=== PATIENT | female | born 2000 | race Caucasian/White ===

== ENCOUNTER 2022-09-29 18:41 | Emergency (ER) | payer MEDICAID, SELFPAY ==
[2022-09-29 18:48] VITALS: BP 115/74; BP 116/74; PULSE 96; PULSE 99; RESP 18; TEMP 36.9; O2SAT 98; O2SAT 99; BMI 24.1
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
--- NOTE | 2022-09-29 19:11 | PC.NURSE ---
Per reta RUSH: due to allergies and concerns for adverse reaction, pt to be sent to main for Ketamine restraint iif behavior escalates
[2022-09-29 19:14] LABS: Appearance Urine Clear; Color Urine Yellow; Glucose Urine UA Negative (Negative); Leukocyte Esterase Urine Trace (Negative); Nitrite Urine Negative (Negative); PH 7.5 (5.0-9.0); UMIC TRIGGER UACC YES; Urine Blood Negative (Negative); Urine Ketones Negative (Negative); Urine Protein Negative (Neg-Trace)
[2022-09-29 19:16] LABS: UPreg QC Valid YES; Urine Pregnancy NEGATIVE (NEGATIVE)
[2022-09-29 19:19] LABS: Bacteria Urine None Seen (None Seen); Hyaline Casts Urine 0-2 /LPF (0-2); RBC Urine 0-2 /HPF (0-2); Squamous Epithelial Cell Urine 0-2 /HPF (0-2); UACC Culture Trigger YES
[2022-09-29 19:20] VITALS: RESP 24
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
[2022-09-29 19:30] LABS: Amphetamine Screen Urine Not Detected (Not Detect); Barbiturates, Urine Not Detected (Not Detect); Benzodiazepines Screen Urine Not Detected (Not Detect); Cannabinoid Screen Urine Not Detected (Not Detect); Cocaine Screen Urine Not Detected (Not Detect); Fentanyl, urine Not Detected (Not Detect); Opiate Screen Urine Not Detected (Not Detect); Phencyclidine Screen Urine Not Detected (Not Detect)
[2022-09-29 19:35] VITALS: RESP 22
--- NOTE | 2022-09-29 19:37 | MHC.CARE ---
Care Team had a telephonic encounter with [facility] staff Ronda and she reported having no information pertaining to pt.
--- NOTE | 2022-09-29 19:39 | PC.NURSE ---
Ivelisse preston supervisore talked with Stefania and it is okay to give Ketamine im with a 1:1 rn at the bedside. Jazmyn gonzales talked with the family and the pt has not been out of a crisis unit in 5 years and has not seen the outside. Tami is with the pt at this time with Carmella sitting.
--- NOTE | 2022-09-29 19:41 | MHC.CARE ---
Care Team had a telephonic encounter with [facility] crisis staff Skyler and he reported pt is not in there system.
--- NOTE | 2022-09-29 19:42 | PC.NURSE ---
20mg Geodon IM given via verbal order from hussain RUSH. 1;[address] clinical coordinator at [facility].e
[2022-09-29 19:50] VITALS: RESP 18
--- NOTE | 2022-09-29 20:04 | MHC.CARE ---
Care Team left a voice message with Lizeth for [place]. Purpose of call was to gain more information related to pt. Care Team called [employer] staff Shonna and she transferred the call to Crisis Unit staff Kaycee and she stated no information pertaining to pt. Kaycee reported residential units are closed until Saturday.
[2022-09-29 20:05] VITALS: RESP 18
[2022-09-29 20:20] VITALS: RESP 18
[2022-09-29 20:30] LABS: COVID-19 Test Negative (Negative)
--- NOTE | 2022-09-29 20:48 | MHC.CARE ---
Care Team had a telephonic encounter with [place] [employer] dispatcher Sobia Mooney and she reported pt resides with grandmother and recently moved from [place]. She provided pt's father Km contact information [phone].
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
[2022-09-29] MEDS: diphenhydrAMINE HCL 25 MG CAPSULE 50 MG PO ×2 (21:03→22:18)
[2022-09-29] MEDS: clonazePAM 1 MG TABLET PO ×2 (21:03→22:17)
[2022-09-29] MEDS: Ziprasidone Mesylate 20 MG VIAL IM (21:04)
[2022-09-29] MEDS: OLANZapine 10 MG TABLET PO (21:04)
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
[2022-09-29] MEDS: Melatonin 3 MG TABLET 6 MG PO (22:10)
[2022-09-29] MEDS: OLANZapine 10 MG TABLET 20 MG PO (22:17)
--- NOTE | 2022-09-29 22:18 | PC.NURSE ---
t/w attempted to draw blood on patient post mechanical and chemical restraint. pt is a very hard stick and had low tolerance for blood draw. t/w found a senior tech to draw labs, but patient quickly became agitated and rn and techs determined it was not safe to draw labs. will draw labs once patient's mood stabilizes more and it is safe to do so. rn aware
[2022-09-29] MEDS: Paliperidone ER 6 MG TAB.ER.24 PO (22:22)
[2022-09-30] VITALS (7 sets, daily range): RESP 16–18
--- NOTE | 2022-09-30 01:14 | PC.NURSE ---
Patient is status post chemical and mechanical restraints, currently in bed appears sleeping, med rec completed per medical record and confirmed by patient's father, HS medication administered/patient compliant, observed on 1:1 for behavioral unpredictability, patient was assessed by care team, disposition pending, patient will be revaluated in the morning by care team, VSS, blood draw attempted/failed, we will try again when patient is awake, will continue to monitor.
[2022-09-30] MEDS: clonazePAM 1 MG TABLET PO ×3 (08:59→20:16)
[2022-09-30] MEDS: OLANZapine 10 MG TABLET 20 MG PO ×3 (08:59→18:46)
[2022-09-30] MEDS: diphenhydrAMINE HCL 25 MG CAPSULE 50 MG PO ×2 (09:00→20:16)
--- NOTE | 2022-09-30 09:21 | PC.NURSE ---
Addendum entered by Lacie Dyson 09/30/22 09:39: Care team at bedside assessing. Original Note: pt up and walking in [place] area. took am meds w/o issue. seeking more breakfast at this time.
--- NOTE | 2022-09-30 11:20 | PC.NURSE ---
Pt reporting anxiety increasing. Md notified. Order for PO meds: 20mg Zyprexa, 2mg Ativan to be ordered.
[2022-09-30] MEDS: clonazePAM 1 MG TABLET 4 MG PO ×2 (11:31→17:50)
[2022-09-30 17:35] LABS: Basophils Percent Auto 0.3 % (0-2); Eosinophils Absolute Auto 0.3 X10*3/uL (0.0-0.4); Eosinophils Percent Auto 4.3 % (0-4); Hematocrit 37.2 % (37.0-47.0); Imm Gran Abs Auto 0.01 X10*3/uL (0.00-0.03); Imm Gran Pct Auto 0.1 % (0.0-0.4); Lymphocytes Absolute Auto 3.9 X10*3/uL (1.2-4.9); Lymphocytes Percent Auto 56.8 % (20-40); MANUAL DIFF FLAG SCAN; Mean Corpuscular HGB Conc 32.3 g/dl (31.0-35.0); Mean Corpuscular Hemoglobin 31.5 pg (27.0-33.0); Mean Corpuscular Volume 97.6 fL (80.0-98.0); Monocytes Absolute Auto 0.8 X10*3/uL (0.1-1.2); Monocytes Percent Auto 11.4 % (2-11); Neutrophils Absolute Auto 1.9 x10*3/uL (2.0-8.3); Neutrophils Percent Auto 27.1 % (45-73); PLT CLUMP 1; Red Blood Count 3.81 X10*6/uL (4.20-5.50); Red Cell Distribution Width 14.7 % (11.0-16.0); SCAN SMEAR FLAG 1
[2022-09-30 17:55] LABS: Alanine Aminotransferase 26 U/L (0-31); Albumin Level 3.6 g/dL (3.5-5.0); Alkaline Phosphatase 57 U/L (39-117); Anion Gap 13 (12-20); Aspartate Amino Transferase 41 U/L (5-31); Bilirubin Total 0.3 mg/dL (0.0-1.0); Blood Urea Nitrogen 27 mg/dL (9-16); Calcium 9.2 mg/dL (8.4-10.2); Carbon Dioxide 25 mmol/L (22-29); Chloride 109 mmol/L (96-108); Creatinine Clr Calc Pharmacy 152.2; Estimated Glomerular Filt Rate > 60; Glucose Random 92 mg/dL (60-115); Magnesium 1.7 mg/dL (1.6-2.6); Potassium 3.9 mmol/L (3.3-5.1); Salicylate < 5.0 mg/dL (15-30); Sodium 143 mmol/L (135-145); Total Protein 6.7 g/dL (6.5-8.0)
[2022-09-30 18:00] LABS: Acetaminophen LAB < 1 mcg/mL (<30); Platelet Count 100 X10*3/uL (160-400); SLIDE REVIEW VERIFIED; White Blood Count 6.9 X10*3/uL (4.8-10.8)
[2022-09-30 18:05] LABS: Valproate 104.9 mcg/mL (50.0-100.0)
[2022-09-30 18:10] LABS: Influenza A PCR NEGATIVE (Negative); Influenza B PCR NEGATIVE (Negative); Resp Syncy Virus RNA Qual PCR NEGATIVE (Negative); SARS COV2 PCR INHOUSE NEGATIVE (Negative)
--- NOTE | 2022-09-30 18:24 | PC.NURSE ---
Pt threw sunbutter and jelly sandwich and began screaming. Pt brought back to room. given comfort and warm blanket. Resting at this time.
--- NOTE | 2022-09-30 18:48 | PC.NURSE ---
Per md Simon give night dose of zyprexa now for escalating behaviors of screaming. Sitter remains at bedside 1;1. Pt intermittentily screaming.
[2022-09-30] MEDS: Ziprasidone Mesylate 20 MG VIAL IM (19:20)
[2022-09-30] MEDS: Melatonin 3 MG TABLET 6 MG PO (20:16)
[2022-09-30] MEDS: Paliperidone ER 6 MG TAB.ER.24 PO (20:16)
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
[2022-10-01] MEDS: diphenhydrAMINE HCL 25 MG CAPSULE 50 MG PO ×2 (07:44→19:18)
[2022-10-01] MEDS: clonazePAM 1 MG TABLET PO ×3 (07:45→19:18)
--- NOTE | 2022-10-01 08:28 | PC.NURSE ---
patient reports being anxious. starting to yell out and hit self. ED Provider made aware, Ativan PRN ordered.
[2022-10-01] MEDS: OLANZapine 10 MG TABLET 20 MG PO ×2 (08:35→19:18)
[2022-10-01] MEDS: OLANZapine 10 MG VIAL 5 MG IM (08:56)
[2022-10-01] MEDS: Midazolam HCl/PF 2 MG/2 ML VIAL 4 MG IM (08:57)
--- NOTE | 2022-10-01 09:08 | PC.NURSE ---
patient refused PO and IM ativan. given IM haldol and versed for anxiety/self harm behaviors
--- NOTE | 2022-10-01 11:11 | PC.NURSE ---
patient sleeping, chest rise and fall equal and unlabored. 1:[address] for safety[address]
[2022-10-01] MEDS: Acetaminophen 325 MG TABLET 650 MG PO (13:38)
[2022-10-01 14:50] LABS: COVID-19 Test Negative (Negative); IDNOW Serial# BCCEAD1C
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
[2022-10-01] MEDS: Melatonin 3 MG TABLET 6 MG PO (19:18)
[2022-10-01 19:22] VITALS: BP 113/76; PULSE 96; RESP 20; TEMP 36.6; O2SAT 96
[2022-10-01] MEDS: Paliperidone ER 6 MG TAB.ER.24 PO ×2 (19:27→19:34)
[2022-10-01] MEDS: Ziprasidone 20 MG CAPSULE PO (19:34)
--- NOTE | 2022-10-02 06:37 | PC.NURSE ---
Patient was under impression that she is going upstairs, when made aware she is not going inpatient tonight patient got upset and agitated, exhibiting signs and symptoms of behavioral escalation, provider notified/ordered Geodon 20 mg PO administered with nighttime medication, sat with patient to deescalate, patient eventually calmed down and fall sleep. Patient slept through the night, no distress observed/reported, disposition section 12 inpatient bed search per care team, patient is observed on 1:1 for safety, Ammonia lab order was ordered at 1144 am on 10/01/2022, lab ordered was not completed and we couldn't do due to patient's escalating behavior, we will attempt once patient is awake, VSS, will continue to monitor
--- NOTE | 2022-10-02 07:25 | PC.NURSE ---
report taken form Waylon RN, patient sleeping at this time. breakfast tray placed in room. 1:1 outside patients door and able to view at all times.
[2022-10-02] MEDS: clonazePAM 1 MG TABLET PO ×3 (08:11→19:58)
[2022-10-02] MEDS: diphenhydrAMINE HCL 25 MG CAPSULE 50 MG PO ×2 (08:11→19:58)
[2022-10-02] MEDS: OLANZapine 10 MG TABLET 20 MG PO ×2 (08:11→19:58)
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
[2022-10-02] MEDS: OLANZapine 10 MG TABLET PO (15:38)
--- NOTE | 2022-10-02 15:51 | PC.NURSE ---
Attempt made to engage pt in individual OT tx however pt found to sleeping deeply. Pt provided with seasonal coloring pages, word finds, and sticker puzzle to engage complete independently.
[2022-10-02 17:49] LABS: Basophils Percent Auto 0.3 % (0-2); Eosinophils Absolute Auto 0.3 X10*3/uL (0.0-0.4); Eosinophils Percent Auto 4.9 % (0-4); Imm Gran Abs Auto 0.01 X10*3/uL (0.00-0.03); Imm Gran Pct Auto 0.2 % (0.0-0.4); PLT CLUMP 1; Red Cell Distribution Width 14.3 % (11.0-16.0); SCAN SMEAR FLAG 1
[2022-10-02 17:51] LABS: Hematocrit 37.4 % (37.0-47.0); Hemoglobin 12.3 g/dl (12.0-16.0); Lymphocytes Absolute Auto 3.7 X10*3/uL (1.2-4.9); Lymphocytes Percent Auto 57.6 % (20-40); Mean Corpuscular HGB Conc 32.9 g/dl (31.0-35.0); Mean Corpuscular Volume 97.4 fL (80.0-98.0); Monocytes Absolute Auto 0.9 X10*3/uL (0.1-1.2); Monocytes Percent Auto 14.5 % (2-11); Neutrophils Absolute Auto 1.4 x10*3/uL (2.0-8.3); Neutrophils Percent Auto 22.5 % (45-73); Red Blood Count 3.84 X10*6/uL (4.20-5.50)
[2022-10-02 17:55] LABS: MANUAL DIFF FLAG NO; Mean Platelet Volume 10.7 fL (9.4-12.3); Platelet Count 100 X10*3/uL (160-400); White Blood Count 6.3 X10*3/uL (4.8-10.8)
[2022-10-02 18:09] LABS: Ammonia 71 umol/L (13-55)
[2022-10-02 18:18] LABS: Alanine Aminotransferase 17 U/L (0-31); Albumin Level 3.4 g/dL (3.5-5.0); Alkaline Phosphatase 61 U/L (39-117); Anion Gap 11 (12-20); Aspartate Amino Transferase 29 U/L (5-31); Bilirubin Total 0.3 mg/dL (0.0-1.0); Blood Urea Nitrogen 37 mg/dL (9-16); Calcium 9.1 mg/dL (8.4-10.2); Carbon Dioxide 23 mmol/L (22-29); Chloride 111 mmol/L (96-108); Estimated Glomerular Filt Rate > 60; Glucose Random 113 mg/dL (60-115); Potassium 4.3 mmol/L (3.3-5.1); Sodium 141 mmol/L (135-145); Total Protein 6.5 g/dL (6.5-8.0)
[2022-10-02] MEDS: Paliperidone ER 6 MG TAB.ER.24 PO (19:58)
[2022-10-02] MEDS: Melatonin 3 MG TABLET 6 MG PO (19:58)
--- NOTE | 2022-10-03 | ECG_ITS ---
Test Reason : QTC Blood Pressure : / mmHG Vent. Rate : 097 BPM Atrial Rate : 097 BPM P-R Int : 138 ms QRS Dur : 080 ms QT Int : 356 ms P-R-T Axes : 043 063 060 degrees QTc Int : 452 ms Normal sinus rhythm Normal ECG No previous ECGs available Referred By: Lou Pate Electronically Signed By:MADISON ROBERTS
[2022-10-03 06:38] VITALS: PULSE 17
--- NOTE | 2022-10-03 06:46 | PC.NURSE ---
Patient slept through the night, no distress observed/reported, medication compliant, behavior non concerning but unpredictable, disposition per care team section 12 inpatient bed search, patient is pre-accepted to for today, patient is excited, VSS, will continue to monitor.
[2022-10-03 08:08] VITALS: RESP 20
[2022-10-03 09:13] VITALS: BP 109/69; PULSE 99; RESP 16; TEMP 36.3; O2SAT 97
--- NOTE | 2022-10-03 09:15 | PC.NURSE ---
pt is a/o x 4 no sob/matt noted speaks in full sentences. pt ate breakfast. amb (i) gait steady. pt is calm/co-op. pt denies any si/hi.
[2022-10-03] MEDS: diphenhydrAMINE HCL 25 MG CAPSULE 50 MG PO (09:18)
[2022-10-03] MEDS: clonazePAM 1 MG TABLET PO ×2 (09:18→20:14)
[2022-10-03] MEDS: OLANZapine 10 MG TABLET 20 MG PO ×2 (09:18→20:14)
--- NOTE | 2022-10-03 10:02 | PC.NURSE ---
pt showered, 1:1 sitter continues.
--- NOTE | 2022-10-03 10:35 | PC.NURSE ---
pt is reporting anxiety, refused ativan. pt's grand-mother mt white ) called was updated on pt status.
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
[2022-10-03] MEDS: Lactulose 20 GM/30 ML SOLUTION PO ×3 (12:39→20:13)
--- NOTE | 2022-10-03 14:15 | PC.NURSE ---
Patient c/o swelling in hands and feet and sob bp was 120/80. pulse 111, spo2 was 96 room air, lung sounds were clear skin on wrists and ankles at this time do not appear to be swollen, MD was notified.
[2022-10-03] MEDS: Paliperidone ER 6 MG TAB.ER.24 PO (20:14)
[2022-10-03] MEDS: Melatonin 3 MG TABLET 6 MG PO (20:15)
[2022-10-03 20:34] VITALS: BP 109/75; PULSE 100; RESP 16; TEMP 36.6; O2SAT 97
--- NOTE | 2022-10-04 06:10 | PC.NURSE ---
Patient slept through the night, no distress observed/reported, medication compliant, behavior non concerning but unpredictable, disposition per care team section 12 inpatient bed search, patient was upset knowing that patient who came after her are being admitted earlier to the inpatient, Patient 1:1 order is discontinued, VSS, will continue to monitor.
[2022-10-04 08:17] VITALS: RESP 16
[2022-10-04] MEDS: OLANZapine 10 MG TABLET 20 MG PO (08:32)
[2022-10-04] MEDS: Lactulose 20 GM/30 ML SOLUTION PO ×2 (08:33→14:59)
[2022-10-04] MEDS: clonazePAM 1 MG TABLET PO ×2 (08:33→15:02)
[2022-10-04 10:10] LABS: Ammonia 44 umol/L (13-55)
[2022-10-04 10:35] LABS: Valproate 114.9 mcg/mL (50.0-100.0)
--- NOTE | 2022-10-04 12:56 | MHC.CARE ---
CARE Team completed CC referral.
[2022-10-04] MEDS: polyethylene glycoL 3350 17 GM POWD.PACK PO (15:01)
--- NOTE | 2022-10-04 15:37 | PC.NURSE ---
Pt seen this date for individual OT tx. Pt presents with flat, blunted, childlike affect. Pt is receptive to grounding techniques pushing heavy chair, wall push ups, and to trial rocking in weighted rocking chair prn for mood regulation/stability. Pt is also receptive to sensory item as well as sensory activity. Pt continues visit with her grandmother upon conclusion of session.
--- NOTE | 2022-10-04 15:40 | PC.NURSE ---
Addendum entered by Lacie Dyson 10/04/22 18:00: Confirmation from Lou SIEBEL ADMINISTRATOR- plan to d/c to dad shawn. Addendum entered by Lacie Dyson 10/04/22 17:55: Awaiting confirmation of plan of care from care team. Original Note: Lou SIEBEL ADMINISTRATOR to bedside to discuss plan of care with both patient and grandma.
[2022-10-04 15:46] VITALS: RESP 18
== END 2022-10-04 18:48 | disposition home or self-care (01) ==
PROVIDERS: Physician Assistant; Social Worker; Emergency Provider Emergency Medicine Emergency Medical Services
DX: R45.851 Suicidal ideations (principal); R45.850 Homicidal ideations; F25.0 Schizoaffective disorder, bipolar type; F60.3 Borderline personality disorder; Z20.822 Contact with and (suspected) exposure to COVID-19; F41.9 Anxiety disorder, unspecified; R45.1 Restlessness and agitation; Z78.1 Physical restraint status; Z79.899 Other long term (current) drug therapy
CPT/HCPCS: 0241U; 36415; 80053; 80143; 80164; 80179; 80307; 81001; 81025; 82140; 83735; 85025; 87086; 87635; 93005; 96372; 99285; J2250; J3486

== ENCOUNTER 2022-10-04 21:42 | Inpatient (IN) | payer MEDICAID, OTHER, SELFPAY ==
[2022-10-04 21:49] VITALS: BP 132/93; PULSE 110; RESP 16; TEMP 36.6; O2SAT 97; BMI 21.2
[2022-10-04 22:05] VITALS: RESP 16
[2022-10-04] MEDS: Ziprasidone Mesylate 20 MG VIAL IM (22:05)
--- NOTE | 2022-10-04 22:06 | ED_ITS ---
HPI - Psych General Chief Complaint: Psychiatric Symptoms Stated Complaint: crisis Time Seen by Provider: 10/04/22 21:53 Source: patient and EMS Mode of arrival: EMS History of Present Illness HPI Narrative: This is a 22 years old female with history of schizoaffective disorder, bipolar disorder and mild MR presented by ambulance agitated with to self inflicted abrasion the in the left forearm , the patient has hx of explosive disorder Patient was discharged yesterday from [facility] complaint: other (agitated) Onset (ago): hour(s) (1) Duration: constant History of same: Yes Relieving factors: none Exacerbating factors: none Associated symptoms: denies other symptoms Related Data Home Medications Medication Instructions Recorded Confirmed clonazepam 1 mg tablet (Klonopin) 1 mg PO TID 09/29/22 10/04/22 diphenhydramine HCl 25 mg capsule 50 mg PO BID 09/29/22 10/04/22 (Benadryl) melatonin 5 mg tablet 5 mg PO BEDTIME 09/29/22 10/04/22 olanzapine 20 mg tablet 20 mg PO BID 09/29/22 10/04/22 paliperidone 6 mg tablet,extended 6 mg PO BEDTIME 09/29/22 10/04/22 release 24 hr (Invega) valproic acid (as sodium salt) 250 2,000 mg PO BID 09/29/22 10/04/22 mg/5 mL oral solution Allergies Allergy/AdvReac Type Severity Reaction Status Date / Time chlorpromazine Allergy Anaphylaxis Verified 09/29/22 18:48 [From Thorazine] nut - unspecified Allergy Anxiety Verified 09/29/22 21:28 tomato Allergy Unknown Verified 09/30/22 14:13 haloperidol [From Haldol] AdvReac Agitated Verified 09/29/22 19:27 lithium AdvReac Hives Verified 09/29/22 21:28 Review of Systems Constitutional: Constitutional: Reports no additional constitutional complaints Eyes: Eyes: Reports no additional eye complaints ENT: Reports system reviewed and no additional complaints, except as documented Respiratory: Respiratory: Reports no additional respiratory complaints Integumentary/Breasts: Skin/Breast: Reports system reviewed and no additional complaints, except as docu PMFSH Past Medical History PMFSH Narrative: bipolar,intermittent explosive disorder Medical History Homicidal behavior Suicidal behavior Social History Social History Alcohol intake: never Advance Directives: No Physical Exam Vital Signs: Vital Signs: Last Vital Signs Temp 97.8 F 10/04/22 21:49 Pulse 110 H 10/04/22 21:49 Resp 16 10/04/22 23:05 BP 132/93 H 10/04/22 21:49 Pulse Ox 97 10/04/22 21:49 O2 Del Method 10/04/22 21:49 BMI result Body Mass Index 21.2 Const: General: alert and anxious Nutritional Appearance: well nourished Orientation/consciousness: patient oriented x3 HEENT: Head: Yes normal to inspection General nose exam: Normal external nose present Face and sinus: Yes normal facial exam Mouth: Normal oral and palatal mucosa present Teeth and gingiva: dentition normal Throat: Yes posterior oropharynx normal Neck: Neck: Yes normal visual inspection Resp: Effort & Inspection: normal respiratory effort Auscultation: clear to auscultation bilaterally Cardio: Jugular venous distension: no JVD Rate: regular rate Rhythm: regular rhythm GI: Inspection: Yes normal to inspection Palpation (GI): Soft to palpation, not firm, nontender and no guarding Auscultation: normal bowel sounds Neuro: General: patient oriented x3 Extrem: Other: Left forearm showed multiple abrasions small wound which are not suturable Course Reevaluation(s) Reevaluation #1: pt was sedated at arrival.calm and coperative now,signed out to Dr Nagy Medications Administered Generic Name Dose Route Start Last Admin Trade Name Freq PRN Reason Stop Dose Admin Diphenhydramine HCl 50 mg 10/04/22 23:00 10/04/22 23:02 Diphenhydramine Hcl 25 Mg Capsule PO 50 mg BID OSCAR Administration Olanzapine 20 mg 10/04/22 23:00 10/04/22 23:02 Olanzapine 10 Mg Tablet PO 20 mg BID OSCAR Administration Paliperidone 6 mg 10/04/22 23:00 10/04/22 22:59 Paliperidone Er 6 Mg Tab.Er.24 PO 6 mg BEDTIME OSCAR Administration Discontinued Medications Generic Name Dose Route Start Last Admin Trade Name Freq PRN Reason Stop Dose Admin Ziprasidone 20 mg 10/04/22 21:54 10/04/22 22:05 Ziprasidone Mesylate 20 Mg Vial IM 10/04/22 21:55 20 mg ONCE ONE Administration Medical Decision Making Lab Data Labs: Lab Results 10/04/22 Range/Units 22:19 COVID-19 ([facility]) Negative (Negative) COVID-19 Clin Com See Note Discharge Plan Discharge Clinical Impression: Schizoaffective disorder Patient Disposition: Still a Patient Prescriptions: No Action clonazepam [Klonopin] 1 mg Tablet 1 mg PO TID diphenhydramine HCl [Benadryl] 25 mg Capsule 50 mg PO BID melatonin 5 mg Tablet 5 mg PO BEDTIME olanzapine 20 mg Tablet 20 mg PO BID paliperidone [Invega] 6 mg Tablet Extended Release 24 Hr 6 mg PO BEDTIME valproic acid (as sodium salt) 250 mg/5 mL Solution 2,000 mg PO BID Interventions: [place]-Suicide Risk Severity Scale Last Done: 10/04/22 22:58
[2022-10-04 22:20] VITALS: RESP 16
[2022-10-04 22:35] VITALS: RESP 16
[2022-10-04 22:44] LABS: COVID-19 Test Negative (Negative)
[2022-10-04 22:50] VITALS: RESP 16
[2022-10-04] MEDS: Paliperidone ER 6 MG TAB.ER.24 PO (22:59)
[2022-10-04] MEDS: OLANZapine 10 MG TABLET 20 MG PO (23:02)
[2022-10-04] MEDS: diphenhydrAMINE HCL 25 MG CAPSULE 50 MG PO (23:02)
[2022-10-04 23:05] VITALS: RESP 16
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
--- NOTE | 2022-10-05 08:34 | MHC.CARE ---
CARE Team met with pt to conduct an evaluation. Upon approach, pt was lying down in her bed sleeping. T/w made multiple attempts to wake the pt but to minimal avail. Will follow up with her at a later time.
[2022-10-05] MEDS: diphenhydrAMINE HCL 25 MG CAPSULE 50 MG PO ×2 (08:39→19:35)
[2022-10-05] MEDS: OLANZapine 10 MG TABLET 20 MG PO ×2 (08:39→19:35)
[2022-10-05] MEDS: clonazePAM 1 MG TABLET PO ×3 (08:39→19:35)
[2022-10-05 08:48] VITALS: BP 100/56; PULSE 97; RESP 16; TEMP 37.1; O2SAT 98
--- NOTE | 2022-10-05 11:02 | MHC.CARE ---
[facility] application submitted.
--- NOTE | 2022-10-05 13:23 | MHC.CARE ---
CARE Team submitted records request of [email or web address]
[2022-10-05 14:00] VITALS: RESP 16
[2022-10-05] MEDS: Melatonin 3 MG TABLET 6 MG PO (19:34)
[2022-10-05] MEDS: Paliperidone ER 6 MG TAB.ER.24 PO (19:35)
[2022-10-05] MEDS: Ziprasidone 20 MG CAPSULE PO (20:05)
[2022-10-05] MEDS: polyethylene glycoL 3350 17 GM POWD.PACK PO (20:06)
--- NOTE | 2022-10-06 05:42 | PC.NURSE ---
Patient got upset when she was made aware that she is not going upstairs tonight, she had emotional meltdown, Geodon 20 mg PO administered at 2004 with positive, compliant with her HS medication, staff were able to calmed her down, patient slept through the night, no distress observed/reported, disposition per care team is section 12 inpatient bed search, VSS, will continue to monitor.
--- NOTE | 2022-10-06 06:01 | PC.NURSE ---
Addendum entered by Waylon Jon RN 10/06/22 06:06: Valporic level at 8 am on 10/06/22, notify provider if levels is high Original Note: Valproic lab draw at 9.30 am on 10/06/22. Notify provider if levels is high
[2022-10-06 06:29] VITALS: RESP 17
[2022-10-06] MEDS: diphenhydrAMINE HCL 25 MG CAPSULE 50 MG PO ×2 (08:55→21:14)
[2022-10-06] MEDS: OLANZapine 10 MG TABLET 20 MG PO ×2 (08:55→21:14)
[2022-10-06] MEDS: clonazePAM 1 MG TABLET PO ×2 (08:55→21:14)
[2022-10-06 10:31] LABS: Valproate 57.3 mcg/mL (50.0-100.0)
--- NOTE | 2022-10-06 13:29 | PC.NURSE ---
nurse to nurse given
[2022-10-06 18:00] VITALS: BP 115/75; PULSE 100; TEMP 36.8; O2SAT 96
--- NOTE | 2022-10-06 19:36 | PC.ADMIT ---
Addendum entered by Nataliia Hale RN 10/06/22 19:38: bruising on her arms. pt needs help with some self care activites, but can possiblity do them herself. pt claims that she is only allergic to raw tomatoes and not cooked tomatoes. pt signed all forms and is socializing with peers. start treatment plan and promote safety. Original Note: pt is a 22 year old female who presented to [facility] ED with increased agitation and self harming behaviors. pt has an extensive history of inpatient hospitalizations. pt has a PMH of bipolar, borderline personality disorder and unspecified anxiety disorder. during admission, pt is pleasant but answers questions slowly and often repetitive. pt has bur
[2022-10-06] MEDS: Melatonin 3 MG TABLET 6 MG PO (21:14)
[2022-10-06] MEDS: Paliperidone ER 6 MG TAB.ER.24 PO (21:14)
[2022-10-06] MEDS: traZODone HCL 50 MG TABLET PO (21:51)
--- NOTE | 2022-10-06 21:58 | PC.NURSE ---
pt has a [facility] request. located in chart.
[2022-10-07 08:30] VITALS: BP 109/63; PULSE 111; TEMP 37.1
[2022-10-07] MEDS: clonazePAM 1 MG TABLET PO ×2 (09:10→20:43)
[2022-10-07] MEDS: diphenhydrAMINE HCL 25 MG CAPSULE 50 MG PO ×2 (09:10→20:43)
[2022-10-07] MEDS: OLANZapine 10 MG TABLET 20 MG PO ×2 (09:10→20:44)
[2022-10-07] MEDS: Ziprasidone 20 MG CAPSULE PO (12:10)
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
[2022-10-07 18:00] VITALS: RESP 16
[2022-10-07] MEDS: Paliperidone ER 6 MG TAB.ER.24 PO (20:43)
[2022-10-07] MEDS: traZODone HCL 50 MG TABLET PO ×2 (20:44→22:31)
[2022-10-07] MEDS: Melatonin 3 MG TABLET 6 MG PO (20:44)
[2022-10-08 08:30] VITALS: BP 108/66; PULSE 110; TEMP 36.4
[2022-10-08] MEDS: clonazePAM 1 MG TABLET PO ×3 (08:39→21:45)
[2022-10-08] MEDS: OLANZapine 10 MG TABLET 20 MG PO ×2 (08:39→21:46)
[2022-10-08] MEDS: diphenhydrAMINE HCL 25 MG CAPSULE 50 MG PO ×2 (08:39→21:47)
--- NOTE | 2022-10-08 14:40 | MHC.CARE ---
CARE Team received call from [facility] who requested [facility] information- CARE Team faxed [facility] records
[2022-10-08 18:00] VITALS: BP 116/66; PULSE 105; TEMP 36.4
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
[2022-10-08] MEDS: Melatonin 3 MG TABLET 6 MG PO (21:46)
[2022-10-08] MEDS: Paliperidone ER 6 MG TAB.ER.24 PO (21:47)
[2022-10-08] MEDS: traZODone HCL 50 MG TABLET PO (22:08)
[2022-10-09 08:53] VITALS: BP 91/45; PULSE 74; RESP 18; TEMP 36.6; O2SAT 74
[2022-10-09] MEDS: OLANZapine 10 MG TABLET 20 MG PO ×2 (09:15→20:23)
[2022-10-09] MEDS: clonazePAM 1 MG TABLET PO ×3 (09:15→20:23)
[2022-10-09] MEDS: diphenhydrAMINE HCL 25 MG CAPSULE 50 MG PO ×2 (09:15→20:22)
[2022-10-09 09:21] VITALS: BP 119/57; PULSE 93
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
[2022-10-09 18:00] VITALS: BP 126/78; PULSE 86; RESP 16; TEMP 36.6; O2SAT 98
--- NOTE | 2022-10-09 19:45 | PC.NURSE ---
Pt is C/O left ankle pain of 8/10. Pt reports she fracture her ankle after a fall. Ankle swollen and tender to touch. Provider notified no new orders. Provider wants issue dealt with tomorrow by attending providers.
[2022-10-09] MEDS: Acetaminophen 325 MG TABLET 650 MG PO (20:20)
[2022-10-09] MEDS: Paliperidone ER 6 MG TAB.ER.24 PO (20:22)
[2022-10-09] MEDS: Melatonin 3 MG TABLET 6 MG PO (20:22)
[2022-10-09] MEDS: OLANZapine 10 MG TABLET PO (20:23)
[2022-10-09] MEDS: traZODone HCL 50 MG TABLET PO (22:01)
[2022-10-10] MEDS: diphenhydrAMINE HCL 25 MG CAPSULE 50 MG PO ×2 (09:04→19:23)
[2022-10-10] MEDS: clonazePAM 1 MG TABLET PO ×3 (09:04→19:24)
[2022-10-10 09:09] VITALS: BP 106/57; PULSE 91; RESP 18; TEMP 36.3; O2SAT 98
--- NOTE | 2022-10-10 10:24 | HO.PSYCHPN ---
Subjective Subjective Date of Service: 10/10/22 Reason For Visit: disorganized/HI Interim History: Remains calm, in good behavioral and impulse control. Getting along with staff. Tired today and sleeping in until afternoon. Patient not sure why she denies feeling sick. She is very much hoping she will get to go home for [place]. Discussed her history and patient has no psychotic symptoms that radio script writer can identify. She denies any history of AVH or paranoid thinking. She says she only has intrusive thoughts. She said different diagnoses have been tossed around including OCD and ASD. Marketing Support Assistant reviewed extensive records from [facility] and could not find mention of psychotic symptoms. Patient did have long history of behavioral problems however. Marketing Support Assistant reviewed list of medication trials listed in assessment. Mental Status Exam Mental Status Exam Narrative: Pt is alert and oriented; behavior is cooperative, friendly and calm; patient is not in distress; dressed in casual attire, hair with braid; cloths a little unkempt but with; marginal hygiene; mood is described as ok and affect blunted; eye contact appropriate staring, but not aggressively; Speech is slowed rate; normal volume and prosody; no psychomotor agitation/retardation present; thought process is organized and goal directed; Thought content is on tx; otherwise pertinent to relevant topics and without any delusional content, paranoid ideations or grandiosity; denies any SI/HI. There is no evidence of perceptual disturbance and she denies AVH. Patients insight and judgment appear intact. Diagnostics Vital Signs (24Hr): Vital Signs - 24 hr 10/09/22 18:00 10/10/22 09:09 Temperature 97.8 F 97.4 F Pulse Rate 86 91 Respiratory Rate 16 18 Blood Pressure 126/78 106/57 L Pulse Oximetry 98 98 Oxygen Delivery Method Room Air Room Air BMI result Body Mass Index 21.2 Medications Medications Current Medications Acetaminophen (Acetaminophen 325 Mg Tablet) 650 mg PO Q6H PRN PRN Reason: Headache/Pain Mild Scale (1-3) Last Admin: 10/09/22 20:20 Dose: 650 mg Al Hydroxide/Mg Hydroxide (Magnesium Hydrox/Alum Hydrox 30 Ml Oral.Susp) 30 ml PO Q6H PRN PRN Reason: Heartburn/Nausea Clonazepam (Clonazepam 1 Mg Tablet) 1 mg PO TID [facility] Last Admin: 10/10/22 09:04 Dose: 1 mg Diphenhydramine HCl (Diphenhydramine Hcl 25 Mg Capsule) 50 mg PO BID [facility] Last Admin: 10/10/22 09:04 Dose: 50 mg Epinephrine (Epinephrine 1 Mg/Ml Vial) 0.3 mg IM Q20M PRN PRN Reason: anaphylactic shock Hydrocortisone (Hydrocortisone 1 % Cream 28.35 Gm Tube) 1 appl TOPICAL BID PRN; Protocol PRN Reason: Rash Magnesium Hydroxide (Milk Of Magnesia 30 Ml Oral.Susp) 30 ml PO DAILY PRN PRN Reason: Constipation Melatonin (Melatonin 3 Mg Tablet) 6 mg PO BEDTIME OSCAR Last Admin: 10/09/22 20:22 Dose: 6 mg Nicotine Polacrilex (Nicotine Polacrilex 2 Mg Gum) 4 mg BUCCAL Q2H PRN PRN Reason: Nicotine Cravings Olanzapine (Olanzapine 10 Mg Tablet) 20 mg PO BEDTIME OSCAR Last Admin: 10/09/22 20:23 Dose: 20 mg Olanzapine (Olanzapine 10 Mg Tablet) 10 mg PO BID@0900,1300 [facility] Last Admin: 10/09/22 20:23 Dose: 10 mg Paliperidone (Paliperidone Er 6 Mg Tab.Er.24) 6 mg PO BEDTIME OSCAR Last Admin: 10/09/22 20:22 Dose: 6 mg Trazodone HCl (Trazodone Hcl 50 Mg Tablet) 50 mg PO BEDTIME PRN PRN Reason: Insomnia Last Admin: 10/09/22 22:01 Dose: 50 mg Valproic Acid (Valproic Acid (As Sodium Salt) 250 Mg/5 Ml Solution) 2,000 mg PO BID [facility] Last Admin: 10/10/22 09:03 Dose: 2,000 mg Ziprasidone (Ziprasidone 20 Mg Capsule) 20 mg PO TID PRN PRN Reason: Agitation Last Admin: 10/07/22 12:10 Dose: 20 mg Allergies Allergies Allergy/AdvReac Type Severity Reaction Status Date / Time chlorpromazine Allergy Anaphylaxis Verified 09/29/22 18:48 [From Thorazine] nut - unspecified Allergy Anxiety Verified 09/29/22 21:28 haloperidol [From Haldol] AdvReac Agitated Verified 09/29/22 19:27 lithium AdvReac Hives Verified 09/29/22 21:28 Assessment & Plan Assessment & Plan (1) Schizoaffective disorder: Status: Acute Code(s): F25.9 - Schizoaffective disorder, unspecified (2) Intermittent explosive disorder: Status: Acute Code(s): F63.81 - Intermittent explosive disorder (3) Developmental disorder: Status: Acute Code(s): F89 - Unspecified disorder of psychological development Plan pt is 22 yo female with lifetime of psychiatric illness, including just being discharged from [facility] after being there for 5 years who presents to ED for second time this week, after making suicidal and homicidal comment and stabbing her arm with a pen. On the unit, patient is calm, cooperative and friendly.? She cannot explain why she stabbed herself with a pen other than to share that when she gets a thought in her head, she feels an overwhelming urge to act upon it regardless of the thought and she cannot seem to rest until she has done so.? She says this has been her situation for a long time.? Patient has just moved from [place] to [place] with her family.? Patient asks for help with services saying she hopes not to have to come back to the hospital. -patient said that she is hardly allergic to tomatoes; she says raw tomatoes can cause a mild itchiness in her throat as does raw carrots and cucumbers, but it is never more than and itchiness.? She says cooked tomatoes are no problem and she as pizza and spaghetti sauce all the time.? She says the nut allergy however is significant and will cause her throat to close; she does not know which is specific nut. 10/08 met with patient remains in good behavioral and impulse control; patient has insight to know her illness and need for medication. She is wanting help so that she can remain successful in the community. Patient is appropriate with peers and staff, attending groups and interacting well with others. For now will continue current medication regimen as it has been established at [facility]. Will obtain records and review. Also discussed case with social media assistant who agrees initiate [facility] application. Depakote level: 57.3 10/09 remains in good behavioral and impulse control; appropriately social with peers and staff. Agrees to changing Zyprexa to split up morning dose so that there is some available in the afternoon which is a time she typically gets dysregulated. Marketing Support Assistant discussed whether she needs to take a nap or do some quiet activity by herself in the afternoon to alleviate stress however patient is unsure. 10/10 remains calm and good behavioral and impulse control. Tired today even though Zyprexa dose broken up and less in the morning. Patient history does not seem to include psychotic symptoms but mostly behavioral with intrusive thoughts likely OCD. ASD is also consideration. Patient has that extensive medication trials. But to radio script writer's knowledge neither clozapine or clomipramine. It would be interesting to see if clomipramine could help reduce chronic intrusive OCD type thoughts. Patient is also seems quite sedated much of the time. Still patient is on a medication regimen crafted by a [address] [facility] and radio script writer is hesitant to make changes at this time especially given that patient is just getting set up with outpatient providers and services. -regarding discharge, it does not seem reasonable to expect that patient will remained stable here at her grandmother's in the community. At [facility], records indicate patient was still having severe behavioral episodes close to her time of discharge; now in a new state, in a less structured environment, there will be a considerable adjustment. And patient will likely continue to struggle with her stability and may in fact need subsequent inpatient admissions. That said, she has had absolutely no problems since coming to the ED this 2nd time or throughout her admission here, remaining in good behavioral and impulse control and getting along with staff and peers. Keeping her here through the holidays, especially since medication changes are unlikely, does not seem reasonable; if she discharges home she will have to lloyd a lot of new experiences and will risk decompensation. But as mentioned earlier patient decompensated in the [facility] facility despite the extensively structured environment, with staff she knew well. At this time there seems to be no way to predict patient's ability to remain stable and time will have to tell. Case discussed thoroughly with team who agrees that there is likely little benefit to having patient remain on the unit. Will continue to discuss and assess. Plan: CV Q 15 minute checks Continue home medications regimen (patient recently discharged from [facility] on these medications) may also consider clonidine 0.1mg in afternoon CHANGE TO Olanzapine? 10mg AM and 10mg @1pm Continue Olanzapine 20m qhs Clonazepam 1 mg PO TID OSCAR Paliperidone 6 mg PO BEDTIME OSCAR Valproic Acid (Valproic Acid 2,000 mg PO BID OSCAR Diphenhydramine HCl 50 mg PO BID OSCAR Melatonin ? 6 mg PO BEDTIME OSCAR Trazodone HCl ? 50 mg PO BEDTIME PRN Epinephrine 0.3 mg IM Q20M PRN Gather collateral Medication history from [facility]: Depakote Zyprexa [place] Seroquel Lamictal Ziprasidone Invega Sustenna Abilify, Maintena, Astrada Risperdal BuSpar Lexapro Prozac Effexor Levothyroxine Haldol: Un tolerated side effect Thorazine: Anaphylaxis [place]: Hives I spent minutes with the patient and/or on the patient floor today, greater than?50% of which was spent counseling/coordinating care. Patient educated on: diagnosis and medication risk/benefits Informed Consent: understands Reason for contiued inpatient stay Substantial Risk for: stable for discharge Time Spent With Patient Time: Total time managing care of this patient today ____ minutes.
[2022-10-10] MEDS: OLANZapine 10 MG TABLET PO (13:29)
[2022-10-10] MEDS: Acetaminophen 325 MG TABLET 650 MG PO (16:22)
[2022-10-10 17:17] VITALS: BP 116/65; PULSE 75; RESP 16; TEMP 36.2; O2SAT 98
[2022-10-10] MEDS: Paliperidone ER 6 MG TAB.ER.24 PO (19:23)
[2022-10-10] MEDS: Melatonin 3 MG TABLET 6 MG PO (19:23)
[2022-10-10] MEDS: OLANZapine 10 MG TABLET 20 MG PO (19:23)
[2022-10-11] MEDS: clonazePAM 1 MG TABLET PO ×3 (09:29→21:11)
[2022-10-11] MEDS: OLANZapine 10 MG TABLET PO ×2 (09:29→13:22)
[2022-10-11] MEDS: diphenhydrAMINE HCL 25 MG CAPSULE 50 MG PO ×2 (09:29→21:10)
[2022-10-11 09:33] VITALS: BP 119/74; PULSE 107; RESP 16; TEMP 36.6; O2SAT 96
--- NOTE | 2022-10-11 10:30 | P.PNPSI_ITS ---
Subjective Subjective Date of Service: 10/11/22 Reason For Visit: disorganized/HI Interim History: Remains in behavioral and impulse control. Very much wants to go home for the holidays. Discussed with team and discussed with grandma who agrees there is no clear reason for staying on the unit at this time. Discussed with patient safety and patient says she will try hard to remain in control. Mental Status Exam Mental Status Exam Narrative: Pt is alert and oriented; behavior is cooperative, friendly and calm; patient is not in distress; dressed in casual attire, hair with braid; cloths a little unkempt but with; marginal hygiene; mood is described as ok and affect blunted; eye contact appropriate staring, but not aggressively; Speech is slowed rate; normal volume and prosody; no psychomotor agitation/retardation present; thought process is organized and goal directed; Thought content is on tx; otherwise pertinent to relevant topics and without any delusional content, paranoid ideations or grandiosity; denies any SI/HI. There is no evidence of perceptual disturbance and she denies AVH. Patients insight and judgment appear intact. Diagnostics Vital Signs (24Hr): Vital Signs - 24 hr 10/10/22 17:17 10/11/22 09:33 Temperature 97.1 F 97.8 F Pulse Rate 75 107 H Respiratory Rate 16 16 Blood Pressure 116/65 119/74 Pulse Oximetry 98 96 Oxygen Delivery Method Room Air Room Air BMI result Body Mass Index 21.2 Medications Medications Current Medications Acetaminophen (Acetaminophen 325 Mg Tablet) 650 mg PO Q6H PRN PRN Reason: Headache/Pain Mild Scale (1-3) Last Admin: 10/09/22 20:20 Dose: 650 mg Al Hydroxide/Mg Hydroxide (Magnesium Hydrox/Alum Hydrox 30 Ml Oral.Susp) 30 ml PO Q6H PRN PRN Reason: Heartburn/Nausea Clonazepam (Clonazepam 1 Mg Tablet) 1 mg PO TID [facility] Last Admin: 10/11/22 09:29 Dose: 1 mg Diphenhydramine HCl (Diphenhydramine Hcl 25 Mg Capsule) 50 mg PO BID [facility] Last Admin: 10/11/22 09:29 Dose: 50 mg Epinephrine (Epinephrine 1 Mg/Ml Vial) 0.3 mg IM Q20M PRN PRN Reason: anaphylactic shock Hydrocortisone (Hydrocortisone 1 % Cream 28.35 Gm Tube) 1 appl TOPICAL BID PRN; Protocol PRN Reason: Rash Magnesium Hydroxide (Milk Of Magnesia 30 Ml Oral.Susp) 30 ml PO DAILY PRN PRN Reason: Constipation Melatonin (Melatonin 3 Mg Tablet) 6 mg PO BEDTIME [facility] Last Admin: 10/10/22 19:23 Dose: 6 mg Nicotine Polacrilex (Nicotine Polacrilex 2 Mg Gum) 4 mg BUCCAL Q2H PRN PRN Reason: Nicotine Cravings Olanzapine (Olanzapine 10 Mg Tablet) 20 mg PO BEDTIME OSCAR Last Admin: 10/10/22 19:23 Dose: 20 mg Olanzapine (Olanzapine 10 Mg Tablet) 10 mg PO BID@0900,1300 [facility] Last Admin: 10/11/22 09:29 Dose: 10 mg Paliperidone (Paliperidone Er 6 Mg Tab.Er.24) 6 mg PO BEDTIME OSCAR Last Admin: 10/10/22 19:23 Dose: 6 mg Trazodone HCl (Trazodone Hcl 50 Mg Tablet) 50 mg PO BEDTIME PRN PRN Reason: Insomnia Last Admin: 10/09/22 22:01 Dose: 50 mg Valproic Acid (Valproic Acid (As Sodium Salt) 250 Mg/5 Ml Solution) 2,000 mg PO BID [facility] Last Admin: 10/11/22 09:29 Dose: 2,000 mg Ziprasidone (Ziprasidone 20 Mg Capsule) 20 mg PO TID PRN PRN Reason: Agitation Last Admin: 10/07/22 12:10 Dose: 20 mg Allergies Allergies Allergy/AdvReac Type Severity Reaction Status Date / Time chlorpromazine Allergy Anaphylaxis Verified 09/29/22 18:48 [From Thorazine] nut - unspecified Allergy Anxiety Verified 09/29/22 21:28 haloperidol [From Haldol] AdvReac Agitated Verified 09/29/22 19:27 lithium AdvReac Hives Verified 09/29/22 21:28 Assessment & Plan Assessment & Plan (1) Schizoaffective disorder: Status: Inactive Code(s): F25.9 - Schizoaffective disorder, unspecified (2) Intermittent explosive disorder: Status: Acute Code(s): F63.81 - Intermittent explosive disorder (3) Developmental disorder: Status: Acute Code(s): F89 - Unspecified disorder of psychological development Plan pt is 22 yo female with lifetime of psychiatric illness, including just being discharged from [facility] after being there for 5 years who presents to ED for second time this week, after making suicidal and homicidal comment and stabbing her arm with a pen. On the unit, patient is calm, cooperative and friendly.? She cannot explain why she stabbed herself with a pen other than to share that when she gets a thought in her head, she feels an overwhelming urge to act upon it regardless of the thought and she cannot seem to rest until she has done so.? She says this has been her situation for a long time.? Patient has just moved from [place] to [place] with her family.? Patient asks for help with services saying she hopes not to have to come back to the hospital. -patient said that she is hardly allergic to tomatoes; she says raw tomatoes can cause a mild itchiness in her throat as does raw carrots and cucumbers, but it is never more than and itchiness.? She says cooked tomatoes are no problem and she as pizza and spaghetti sauce all the time.? She says the nut allergy however is significant and will cause her throat to close; she does not know which is specific nut. 10/08 met with patient remains in good behavioral and impulse control; patient has insight to know her illness and need for medication. She is wanting help so that she can remain successful in the community. Patient is appropriate with peers and staff, attending groups and interacting well with others. For now will continue current medication regimen as it has been established at [facility]. Will obtain records and review. Also discussed case with social sciences professor who agrees initiate [facility] application. Depakote level: 57.3 10/09 remains in good behavioral and impulse control; appropriately social with peers and staff. Agrees to changing Zyprexa to split up morning dose so that there is some available in the afternoon which is a time she typically gets dysregulated. Spot Sprayer discussed whether she needs to take a nap or do some quiet activity by herself in the afternoon to alleviate stress however patient is unsure. 10/10 remains calm and good behavioral and impulse control. Tired today even though Zyprexa dose broken up and less in the morning. Patient history does not seem to include psychotic symptoms but mostly behavioral with intrusive thoughts likely OCD. ASD is also consideration. Patient has that extensive medication trials. But to chart writer's knowledge neither clozapine or clomipramine. It would be interesting to see if clomipramine could help reduce chronic intrusive OCD type thoughts. Patient is also seems quite sedated much of the time. Still patient is on a medication regimen crafted by a 5 year stay at [facility] and chart writer is hesitant to make changes at this time especially given that patient is just getting set up with outpatient providers and services. -regarding discharge, it does not seem reasonable to expect that patient will remained stable here at her grandmother's in the community. At [facility], records indicate patient was still having severe behavioral episodes close to her time of discharge; now in a new state, in a less structured environment, there will be a considerable adjustment. And patient will likely continue to struggle with her stability and may in fact need subsequent inpatient admissions. That said, she has had absolutely no problems since coming to the ED this 2nd time or throughout her admission here, remaining in good behavioral and impulse control and getting along with staff and peers. Keeping her here through the holidays, especially since medication changes are unlikely, does not seem reasonable; if she discharges home she will have to lloyd a lot of new experiences and will risk decompensation. But as mentioned earlier patient decompensated in the [facility] facility despite the extensively structured environment, with staff she knew well. At this time there seems to be no way to predict patient's ability to remain stable and time will have to tell. Case discussed thoroughly with team who agrees that there is likely little benefit to having patient remain on the unit. Will continue to discuss and assess. 10/11 patient continues to want to discharge home for the holidays; grandmother agrees to however discharge home and see how she does. Team agrees there is no clear reason to keep patient on the unit at this time. -regarding discharge, it does not seem reasonable to expect that patient will consistently remain stable here at her grandmother's in the community.? At [facility], records indicate patient was still having severe behavioral episodes close to her time of discharge; now in a new state, in a less structured environment, there will be a considerable adjustment.? It is thus likely that patient will continue to struggle with her stability and may in fact need subsequent inpatient admissions.? That said, she has had absolutely no problems since coming to the ED this 2nd time or throughout her admission here, remaining in good behavioral and impulse control and getting along with staff and peers.? Keeping her here through the holidays, especially since medication changes are unlikely, does not seem necessary or helpful; if she discharges home she will have to lloyd a lot of new experiences and will risk decompensation.? But as mentioned earlier patient decompensated in the state facility despite the extensively structured environment, with staff she knew well.? At this time there seems to be no way to predict patient's ability to remain stable and time will have to tell.? Patient's grandmother feels that patient is ready to return home and try again.? Case discussed thoroughly with team who agrees that there is likely little benefit to having patient remain on the unit.? Patient has chronic mood lability; however her grandmother knows this and is willing to continue trying to see if patient can be stable.? Patient's request for discharge honored. Plan: CV Q 15 minute checks Continue home medications regimen (patient recently discharged from [facility] on these medications) may also consider clonidine 0.1mg in afternoon CHANGE TO Olanzapine? 10mg AM and 10mg @1pm Continue Olanzapine 20m qhs Clonazepam 1 mg PO TID OSCAR Paliperidone 6 mg PO BEDTIME OSCAR Valproic Acid (Valproic Acid 2,000 mg PO BID OSCAR Diphenhydramine HCl 50 mg PO BID OSCAR Melatonin ? 6 mg PO BEDTIME OSCAR Trazodone HCl ? 50 mg PO BEDTIME PRN Epinephrine 0.3 mg IM Q20M PRN Gather collateral Medication history from [facility]: Depakote Zyprexa [place] Seroquel Lamictal Ziprasidone Invega Sustenna Abilify, Maintena, Astrada Risperdal BuSpar Lexapro Prozac Effexor Levothyroxine Haldol: Un tolerated side effect Thorazine: Anaphylaxis [place]: Hives I spent minutes with the patient and/or on the patient floor today, greater than?50% of which was spent counseling/coordinating care. Patient educated on: diagnosis and therapeutic strategies Informed Consent: understands and further education needed Reason for contiued inpatient stay Substantial Risk for: stable for discharge Time Spent With Patient Time: Total time managing care of this patient today ____ minutes.
[2022-10-11] MEDS: Lactulose 20 GM/30 ML SOLUTION 10 GM PO ×2 (14:02→21:09)
[2022-10-11] MEDS: Magnesium Hydrox/Alum Hydrox 30 ML ORAL.SUSP PO (16:12)
--- NOTE | 2022-10-11 16:13 | PC.NURSE ---
Pt c/o acid reflux, prn maalox given with positive effect.
[2022-10-11 18:00] VITALS: BP 122/74; PULSE 95; RESP 16; TEMP 36.3; O2SAT 99
[2022-10-11] MEDS: Melatonin 3 MG TABLET 6 MG PO (21:10)
[2022-10-11] MEDS: OLANZapine 10 MG TABLET 20 MG PO (21:11)
[2022-10-11] MEDS: Paliperidone ER 6 MG TAB.ER.24 PO (21:11)
[2022-10-11] MEDS: Ziprasidone 20 MG CAPSULE PO (21:12)
[2022-10-11] MEDS: Acetaminophen 325 MG TABLET 650 MG PO (21:48)
[2022-10-12 09:29] VITALS: BP 118/65; PULSE 101; RESP 16; TEMP 36.1; O2SAT 99
[2022-10-12] MEDS: diphenhydrAMINE HCL 25 MG CAPSULE 50 MG PO (09:31)
[2022-10-12] MEDS: OLANZapine 10 MG TABLET PO ×2 (09:32→13:11)
[2022-10-12] MEDS: clonazePAM 1 MG TABLET PO ×2 (09:32→14:38)
[2022-10-12] MEDS: Lactulose 20 GM/30 ML SOLUTION 10 GM PO (09:48)
[2022-10-12] MEDS: Ziprasidone 20 MG CAPSULE PO (11:21)
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
== END 2022-10-12 17:30 | disposition home or self-care (01) | DRG 750 ==
LOC: HO.ED 10-06 15:10 → HO.PM5 10-06 15:17
PROVIDERS: Emergency Medicine; Admitting Provider Psychiatry & Neurology Psychiatry; Emergency Provider Emergency Medicine; Visit Provider Psychiatry & Neurology Psychiatry
DX: F25.9 Schizoaffective disorder, unspecified (principal); F63.81 Intermittent explosive disorder; F89 Unspecified disorder of psychological development; F84.0 Autistic disorder; Z20.822 Contact with and (suspected) exposure to COVID-19; Z88.8 Allergy status to other drugs, medicaments and biological substances; Z91.52 Personal history of nonsuicidal self-harm; Z79.899 Other long term (current) drug therapy
CPT/HCPCS: 36415; 80164; 87635; 96372; 99285; J3486

== ENCOUNTER 2022-10-13 19:01 | Inpatient (IN) | payer OTHER, SELFPAY ==
--- NOTE | ~2022-10-13 | US_ITS ---
EXAMINATION: US VENOUS ULTRASOUND WITH DOPPLER LOWER EXTREMITY, BILATERAL CLINICAL INFORMATION: SOB. Swelling. COMPARISON: None TECHNIQUE: Ultrasound of the deep veins is performed from the hip to the calf with compression sonography and color and pulse Doppler assessment. Spectral analysis with color-flow imaging is performed. FINDINGS: RIGHT: There is normal venous compression and respiratory variation and augmented flow. The visualized common femoral vein, superficial femoral vein, profunda femoral vein, popliteal vein, and the trifurcation region shows no evidence of deep venous thrombosis. There is no significant popliteal fossa cyst. LEFT: There is normal venous compression and respiratory variation and augmented flow. The visualized common femoral vein, superficial femoral vein, profunda femoral vein, popliteal vein, and the trifurcation region shows no evidence of deep venous thrombosis. There is no significant popliteal fossa cyst. If the patient's symptoms persist, followup ultrasound in 5 days 7 days might be of value to exclude proximal propagation from a non-visualized calf vein. US/US venous duplex LE BI IMPRESSION: No DVT demonstrated in the bilateral lower extremity.
--- NOTE | ~2022-10-13 | XR_ITS ---
EXAMINATION: XR CHEST 6:50 PM CLINICAL INFORMATION: Shortness of breath COMPARISON: None TECHNIQUE: Frontal view of the chest was obtained. FINDINGS: No significant abnormality is noted involving the heart, lungs, mediastinum, bony thorax or soft tissues. XR/XR chest 1V IMPRESSION: No acute disease
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
[2022-10-13 19:12] VITALS: BMI 31.2
--- NOTE | 2022-10-13 19:13 | ED.PSYCH ---
HPI - Psych General Chief Complaint: Psychiatric Symptoms Stated Complaint: SI Time Seen by Provider: 10/13/22 19:52 Source: patient and EMS Mode of arrival: EMS Limitations: no limitations History of Present Illness HPI Narrative: 22-year-old female with a complex psychiatric history with diagnosis of schizoaffective disorder, bipolar disorder, borderline personality, GERD, hypothyroidism, lower extremity edema disorder coming into the emergency department via ambulance from grandmother's house? suicidal ideation with plan to cut herself. Patient arrives with small superficial lacerations to left forearm, patient tells me she does not know why she got mad, she smashed it glass object in use it cut her left wrist. She tells me she was feeling fine earlier today. She denies homicidal ideation. Denies visual, auditory and tactile hallucinations. Denies drugs, alcohol and tobacco. Tells me she is taking all medications as prescribed. Was placed on a [address]. No medical complaints . To know on arrival patient requesting medications to help her calm down. Related Data Previous Rx's Medication Instructions Recorded diphenhydramine HCl 25 mg capsule 50 mg PO BID 30 days #120 caps 10/11/22 (Benadryl) lactulose 20 gram/30 mL oral 10 g (15 mL) PO BID 30 days #900 mL 10/11/22 solution melatonin 5 mg tablet 5 mg PO BEDTIME PRN sleep 30 days 10/11/22 #30 tabs olanzapine 10 mg tablet See Rx Instructions .Route 10/11/22 .COMPLEX 30 days #120 tabs paliperidone 6 mg tablet,extended 6 mg PO BEDTIME 30 days #30 tabs 10/11/22 release 24 hr (Invega) trazodone 50 mg tablet 50 mg PO BEDTIME PRN Insomnia 30 10/11/22 days #30 tabs valproic acid (as sodium salt) 250 2,000 mg (40 mL) PO BID 30 days 10/11/22 mg/5 mL oral solution #2,400 mL clonazepam 1 mg tablet (Klonopin) 1 mg PO TID #90 tabs 10/12/22 Allergies Allergy/AdvReac Type Severity Reaction Status Date / Time chlorpromazine Allergy Anaphylaxis Verified 09/29/22 18:48 [From Thorazine] nut - unspecified Allergy Anxiety Verified 09/29/22 21:28 haloperidol [From Haldol] AdvReac Agitated Verified 09/29/22 19:27 lithium AdvReac Hives Verified 09/29/22 21:28 Review of Systems Review of Systems: Constitutional : No Weight loss, No Fever, No Chills, No Fatigue, No Malaise ENT/Mouth : No sore throat, No Rhinorrhea Eyes: No Eye Pain, No Swelling, No Redness Cardiovascular : No Chest Pain, No SOB, No Dyspnea on Exertion, No Orthopnea, No Edema, No Palpitations Respiratory : No Cough, No Sputum, No Wheezing Gastrointestinal : No Nausea, No Vomiting, No Diarrhea, No Constipation, No abdominal Pain, No Hematochezia, No Melena Genitourinary : No Dysuria, No Urinary Frequency, No Hematuria, Musculoskeletal : No joint pain, No Myalgias, No Joint Swelling Skin : No Skin Lesions, No rash Neuro : No Weakness, No Numbness, No Dizziness, No Headache Psych : + Anxiety/Panic, No Depression, + SI, No HI All other systems reviewed and are negative Yes all other systems are reviewed and are negative [facility] Past Medical History Attestation statement: The following information was validated with the patient. Source: old records reviewed and nursing notes reviewed Medical History Homicidal behavior Schizoaffective disorder Suicidal behavior Social History Social History Household Members: Family Housing: House Do you presently have visiting nurse or other home services: No Alcohol intake: never Patient Tobacco Use Status: Never used Tobacco Advance Directives: No Advance Directives Information Provided: Yes service: No Sexual orientation: Did not discuss Physical Exam Vital Signs: Vital Signs: Last Vital Signs Temp 97.4 F 10/13/22 20:21 Pulse 98 10/13/22 20:21 Resp 15 10/13/22 20:21 BP 111/70 10/13/22 20:21 Pulse Ox 98 10/13/22 20:21 O2 Del Method 10/13/22 20:21 BMI result Body Mass Index 31.2 stable vital signs Appearance: Alert.? Oriented X3.? No acute distress.? Head: Normocephalic, atraumatic, no step-offs or deformities Eyes: Pupils equal, round and reactive to light.? ENT: Pharynx normal.? Neck: Normal inspection.? Neck supple.? CVS: Normal heart rate and rhythm.? Pulses normal.? Respiratory: No respiratory distress.? Breath sounds normal.? Abdomen: Soft and nontender.? Skin: Skin warm and dry.? Normal skin color.? Normal skin turgor.?+ superficial wounds to left forearm. Extremities: No lower extremity edema.? No calf ttp. 5/5 strength to bilateral upper and lower extremities Back: No midline tenderness, no C-spine tenderness, full range of motion, no CVA tenderness bilaterally Neuro: Oriented X 3.? No motor deficit.? No sensory deficit. CN 2-12 intact Course Reevaluation(s) Reevaluation #1: I just received a phone call from the nurse in the behavioral health section of the emergency department stating patient very aggressive towards others and self, harm to self and others, medical restraint will be placed at this time. Time: 19:19 Reevaluation #2: UA with positive leukocyte esterases however I suspect this is secondary to contamination, patient without UTI symptoms. Laboratory studies pending. Sign out given to FANY Barcenas Time: 20:52 Medications Administered Discontinued Medications Generic Name Dose Route Start Last Admin Trade Name Freq PRN Reason Stop Dose Admin Diphtheria/Tetanus/Acell Pertussis 0.5 ml 10/13/22 19:19 10/13/22 19:58 Diphth,Pertus(Acell),Tet Adult 0.5 Ml Syringe IM 10/13/22 19:20 0.5 ml .ONCE ONE Administration Ziprasidone 20 mg 10/13/22 19:17 10/13/22 19:25 Ziprasidone Mesylate 20 Mg Vial IM 10/13/22 19:18 20 mg ONCE ONE Administration Medical Decision Making Medical Decision Making [facility] Narrative: 1921 22-year-old female presents with SI with plan to cut self with glass which she did at Home. Unsure of tetanus status. Physical examination signifiant for superficial lacerations to left forearm will give Boostrix shot, obtain basic labs, get patient cleared medically and then she will be evaluated by the behavioral health team. Lab Data Labs: Lab Results 10/13/22 10/13/22 Range/Units 20:09 20:09 Urine Color Yellow Urine Appearance Clear Urine pH 6.5 (5.0-9.0) Ur Specific [place] 1.025 (1.005-1.025) Urine Protein Negative (Neg-Trace) mg/dL Urine Glucose (UA) Negative (Negative) mg/dL Urine Ketones Trace (Negative) mg/dL Urine Blood Negative (Negative) Urine Nitrite Negative (Negative) Ur Leukocyte Esterase Small (1+) H (Negative) Urine RBC 0-2 (0-2) /HPF Urine WBC 11-20 H (0-5) /HPF Ur Squamous Epith Cells 3-5 (0-2) /HPF Urine Bacteria 1+ (None Seen) Hyaline Casts 0-2 (0-2) /LPF Urine Test NEGATIVE (NEGATIVE) Critical Care Time Critical Care Time Critical Care Time: No Discharge Plan Discharge Clinical Impression: Schizoaffective disorder, Developmental disorder Patient Disposition: Still a Patient Prescriptions: No Action olanzapine 10 mg Tablet See Rx Instructions .ROUTE .COMPLEX 30 Days Qty: 120 0RF Rx Instructions: take 1 tab at 9:00am; take 1 tab at 1:00pm; take 2 tabs at bedtime trazodone 50 mg Tablet 50 mg PO BEDTIME PRN (Reason: Insomnia) 30 Days Qty: 30 0RF lactulose 20 gram/30 mL Solution 10 g PO BID 30 Days Qty: 900 0RF valproic acid (as sodium salt) 250 mg/5 mL Solution 2,000 mg PO BID 30 Days Qty: 2400 0RF diphenhydramine HCl [Benadryl] 25 mg Capsule 50 mg PO BID 30 Days Qty: 120 0RF paliperidone [Invega] 6 mg Tablet Extended Release 24 Hr 6 mg PO BEDTIME 30 Days Qty: 30 0RF melatonin 5 mg Tablet 5 mg PO BEDTIME PRN (Reason: sleep) 30 Days Qty: 30 0RF clonazepam [Klonopin] 1 mg tablet 1 mg PO TID Qty: 90 0RF
[2022-10-13 19:25] VITALS: RESP 15
[2022-10-13 19:40] VITALS: RESP 16
[2022-10-13 19:55] VITALS: RESP 15
[2022-10-13 20:10] VITALS: RESP 16
[2022-10-13 20:21] VITALS: BP 111/70; PULSE 98; RESP 15; TEMP 36.3; O2SAT 98
[2022-10-13 20:25] VITALS: RESP 17
[2022-10-13] MEDS: Lactulose 20 GM/30 ML SOLUTION 10 GM PO (20:40)
[2022-10-13] MEDS: OLANZapine 10 MG TABLET 20 MG PO (20:40)
[2022-10-13] MEDS: diphenhydrAMINE HCL 25 MG CAPSULE 50 MG PO (20:40)
[2022-10-13] MEDS: traZODone HCL 50 MG TABLET PO (20:40)
[2022-10-13] MEDS: Paliperidone ER 6 MG TAB.ER.24 PO (20:40)
[2022-10-13] MEDS: clonazePAM 1 MG TABLET PO (20:40)
--- NOTE | 2022-10-13 20:43 | MHC.CARE ---
Care Team completed [facility] smart sheet.
[2022-10-13 20:45] LABS: Appearance Urine Clear; Color Urine Yellow; Glucose Urine UA Negative (Negative); Leukocyte Esterase Urine Small (1+) (Negative); Nitrite Urine Negative (Negative); PH 6.5 (5.0-9.0); Specific Gravity - Urine 1.025 (1.005-1.025); UMIC TRIGGER UA YES; Urine Blood Negative (Negative); Urine Ketones Trace mg/dL (Negative); Urine Protein Negative (Neg-Trace)
[2022-10-13 20:47] LABS: UPreg QC Valid YES; Urine Pregnancy NEGATIVE (NEGATIVE)
[2022-10-13 20:49] LABS: Bacteria Urine 1+ (None Seen); Hyaline Casts Urine 0-2 /LPF (0-2); RBC Urine 0-2 /HPF (0-2)
[2022-10-13 20:52] LABS: Amphetamine Screen Urine Not Detected (Not Detect); Barbiturates, Urine Not Detected (Not Detect); Benzodiazepines Screen Urine Not Detected (Not Detect); Cannabinoid Screen Urine Not Detected (Not Detect); Cocaine Screen Urine Not Detected (Not Detect); Fentanyl, urine Not Detected (Not Detect); Opiate Screen Urine Not Detected (Not Detect); Phencyclidine Screen Urine Not Detected (Not Detect)
[2022-10-13 20:57] LABS: COVID-19 Test Negative (Negative); IDNOW Serial# BCCEAD1C
--- NOTE | 2022-10-13 21:18 | MHC.EDTECH ---
t/w unable to obtain blood work. pt agitated upon arrival to pod and required chemical restraint. pt currently sleeping. will obtain lab work when patient is awake and available.
--- NOTE | 2022-10-14 05:46 | PC.NURSE ---
Patient at the time of arrival was grossly deregulated emotionally, yelling and screaming, non redirect-able, Geodon 20 mg IM administered at 1925 with + effect, compliant with her HS medication, slept through the night, no distress observed/reported, [facility] referral completed/pending ETA, blood work pending, will continue to monitor.
[2022-10-14 07:22] VITALS: RESP 16
[2022-10-14] MEDS: diphenhydrAMINE HCL 25 MG CAPSULE 50 MG PO ×2 (09:07→19:15)
[2022-10-14] MEDS: clonazePAM 1 MG TABLET PO ×3 (09:07→19:16)
[2022-10-14] MEDS: Lactulose 20 GM/30 ML SOLUTION 10 GM PO ×2 (09:07→19:40)
[2022-10-14] MEDS: OLANZapine 10 MG TABLET PO (09:07)
--- NOTE | 2022-10-14 16:41 | PC.NURSE ---
in and out of room, eating mult snacks and sandwiches, pleasant and cooperative, nad
[2022-10-14 17:44] VITALS: BP 105/57; PULSE 80; RESP 15; O2SAT 95
[2022-10-14] MEDS: Paliperidone ER 6 MG TAB.ER.24 PO (19:16)
[2022-10-14] MEDS: OLANZapine 10 MG TABLET 20 MG PO (19:16)
[2022-10-14] MEDS: Melatonin 3 MG TABLET 6 MG PO (23:02)
--- NOTE | 2022-10-15 | ECG_ITS ---
Test Reason : cp Blood Pressure : / mmHG Vent. Rate : 092 BPM Atrial Rate : 092 BPM P-R Int : 136 ms QRS Dur : 080 ms QT Int : 362 ms P-R-T Axes : 043 065 053 degrees QTc Int : 447 ms Normal sinus rhythm Normal ECG When compared with ECG of 03-OCT-2022 13:48, No significant change was found Referred By: Sasha Bianchi Electronically Signed By:JANET GOODEN MD
--- NOTE | 2022-10-15 06:04 | PC.NURSE ---
Patient did struggle to fall sleep initially but slept through the night, no distress observed/reported, behavior appropriate and non concerning, medication compliant, VSS, disposition per N is Voluntary in patient bed search, will continue to monitor.
[2022-10-15 06:28] VITALS: RESP 17
[2022-10-15] MEDS: diphenhydrAMINE HCL 25 MG CAPSULE 50 MG PO ×2 (09:46→19:57)
[2022-10-15] MEDS: OLANZapine 10 MG TABLET PO (09:48)
[2022-10-15] MEDS: clonazePAM 1 MG TABLET PO ×3 (09:48→19:57)
--- NOTE | 2022-10-15 12:33 | PC.NURSE ---
patient sleeping, respirations are equal and unlabored. given routine morning meds. cooperative with staff members.
[2022-10-15 14:49] VITALS: BP 112/69; PULSE 101; RESP 16; O2SAT 97
[2022-10-15 18:00] VITALS: BP 135/64; PULSE 102; TEMP 36.8; O2SAT 98
[2022-10-15] MEDS: Paliperidone ER 6 MG TAB.ER.24 PO (19:56)
[2022-10-15] MEDS: OLANZapine 10 MG TABLET 20 MG PO (19:57)
[2022-10-15] MEDS: Lactulose 20 GM/30 ML SOLUTION 10 GM PO (20:29)
[2022-10-15] MEDS: Melatonin 3 MG TABLET 6 MG PO (21:36)
[2022-10-15] MEDS: traZODone HCL 50 MG TABLET PO (22:02)
--- NOTE | 2022-10-16 00:09 | PC.ADMIT ---
pt is a 22 year old female who presented to [facility] [place] [place] ED with SI and self harm on her forearm. pt was discharge from 2 days before [place]. pt ahs a PMH of inpatient stays in [facility], schizoaffective disorder, intermittent explosive disorder, unspecified neurodevelopmental disorder. pt reports she is really sad she had to come back. during admission, pt was flat. pt wanted attention. pt is repetitive at times. pt mentions a patient named Chuck and says she misses him. pt worry about making new friends on the unit. pt feels bored.
[2022-10-16] MEDS: clonazePAM 1 MG TABLET PO ×3 (09:05→21:23)
[2022-10-16] MEDS: diphenhydrAMINE HCL 25 MG CAPSULE 50 MG PO ×2 (09:05→21:22)
[2022-10-16] MEDS: OLANZapine 10 MG TABLET PO (09:06)
[2022-10-16] MEDS: Lactulose 20 GM/30 ML SOLUTION 10 GM PO ×2 (09:08→21:20)
[2022-10-16 09:52] VITALS: BP 116/57; PULSE 101; RESP 18; TEMP 36.8; O2SAT 99
--- NOTE | 2022-10-16 10:43 | HO.PSYCHPN ---
Subjective Subjective Date of Service: 10/16/22 Reason For Visit: Schizoaffective Interim History: This morning patient calm and pleasant on approach. Later in the afternoon after visit with grandmother, she got dysregulated upset about something her grandma said. Patient started punching herself in the face. She asked for Kenia ROCA to help her so she would not have to end up getting restrained which she wanted to avoid. Patient was able to keep herself and control until she got IM medication after which she calmed down was able to rest. Mental Status Exam Mental Status Exam Narrative: Pt is alert and oriented; behavior is cooperative but can become dysregulated; otherwise, friendly and calm; patient is not in distress; dressed in casual attire, cloths a little unkempt but with adequate hygiene; mood is described as ok and affect blunted; eye contact appropriate staring, but not aggressively; Speech is slowed rate; normal volume and prosody; no psychomotor agitation/retardation present; thought process is organized and goal directed; Thought content is on tx; otherwise pertinent to relevant topics and without any delusional content, paranoid ideations or grandiosity; denies any SI/HI. There is no evidence of perceptual disturbance and she denies AVH. Patients insight and judgment are impaired but at baseline. Diagnostics Vital Signs (24Hr): Vital Signs - 24 hr 10/15/22 14:49 10/15/22 18:00 10/16/22 09:52 Temperature 98.2 F 98.2 F Pulse Rate 101 H 102 H 101 H Respiratory Rate 16 18 Blood Pressure 112/69 135/64 116/57 L Pulse Oximetry 97 98 99 Oxygen Delivery Method Room Air Room Air Room Air BMI result Body Mass Index 31.2 Medications Medications Current Medications Acetaminophen (Acetaminophen 325 Mg Tablet) 650 mg PO Q6H PRN PRN Reason: Headache/Pain Mild Scale (1-3) Al Hydroxide/Mg Hydroxide (Magnesium Hydrox/Alum Hydrox 30 Ml Oral.Susp) 30 ml PO Q6H PRN PRN Reason: Heartburn/Nausea Clonazepam (Clonazepam 1 Mg Tablet) 1 mg PO TID [facility] Last Admin: 10/16/22 09:05 Dose: 1 mg Diphenhydramine HCl (Diphenhydramine Hcl 25 Mg Capsule) 50 mg PO BID [facility] Last Admin: 10/16/22 09:05 Dose: 50 mg Hydroxyzine HCl (Hydroxyzine Hcl 25 Mg Tablet) 25 mg PO Q6H PRN PRN Reason: Anxiety Lactulose (Lactulose 20 Gm/30 Ml Solution) 10 gm PO BID [facility] Last Admin: 10/16/22 09:08 Dose: 10 gm Magnesium Hydroxide (Milk Of Magnesia 30 Ml Oral.Susp) 30 ml PO DAILY PRN PRN Reason: Constipation Melatonin (Melatonin 3 Mg Tablet) 6 mg PO BEDTIME PRN PRN Reason: sleep Last Admin: 10/15/22 21:36 Dose: 6 mg Olanzapine (Olanzapine 10 Mg Tablet) 10 mg PO DAILY [facility] Last Admin: 10/16/22 09:06 Dose: 10 mg Olanzapine (Olanzapine 10 Mg Tablet) 20 mg PO BEDTIME [facility] Last Admin: 10/15/22 19:57 Dose: 20 mg Paliperidone (Paliperidone Er 6 Mg Tab.Er.24) 6 mg PO BEDTIME [facility] Last Admin: 10/15/22 19:56 Dose: 6 mg Trazodone HCl (Trazodone Hcl 50 Mg Tablet) 50 mg PO BEDTIME PRN PRN Reason: Insomnia Last Admin: 10/15/22 22:02 Dose: 50 mg Valproic Acid (Valproic Acid (As Sodium Salt) 250 Mg/5 Ml Solution) 2,000 mg PO BID [facility] Last Admin: 10/16/22 09:06 Dose: 2,000 mg Allergies Allergies Allergy/AdvReac Type Severity Reaction Status Date / Time chlorpromazine Allergy Anaphylaxis Verified 09/29/22 18:48 [From Thorazine] nut - unspecified Allergy Anxiety Verified 09/29/22 21:28 haloperidol [From Haldol] AdvReac Agitated Verified 09/29/22 19:27 lithium AdvReac Hives Verified 09/29/22 21:28 Assessment & Plan Assessment & Plan (1) Schizoaffective disorder: Status: Acute Code(s): F25.9 - Schizoaffective disorder, unspecified (2) Intermittent explosive disorder: Status: Acute Code(s): F63.81 - Intermittent explosive disorder Plan PLAN: CV q15 Continue current treatment plan for now Adding Geodon as a p.r.n. Reason for contiued inpatient stay Substantial Risk for: rapid decompensation Time Spent With Patient Time: Total time managing care of this patient today ____ minutes.
[2022-10-16 14:50] VITALS: BP 82/50; BP 86/50
[2022-10-16] MEDS: hydrOXYzine HCL 25 MG TABLET PO (15:12)
--- NOTE | 2022-10-16 15:14 | PC.NURSE ---
1500 Pt in bed hard to arouse to awaken . Bp 91/67 while semi left fowlers right arm . Sitting up BP 99/65 left arm. i talked with Pt her speech was slow and slurred, she reported im so sleepy she agreed to not take clonazepam. 1515 she was saying she was anxious and wanted her med. hydroxyzine given, Pt started slapping herself in the face and slamming her head against the wall . Pt in with manager social services at present.
[2022-10-16 15:28] VITALS: BP 113/62; PULSE 62; O2SAT 98
[2022-10-16] MEDS: Ziprasidone Mesylate 20 MG VIAL IM (16:09)
[2022-10-16] MEDS: OLANZapine 10 MG TABLET 20 MG PO (21:21)
[2022-10-16] MEDS: Paliperidone ER 6 MG TAB.ER.24 PO (21:22)
[2022-10-16 22:00] VITALS: BP 116/68; PULSE 104; TEMP 35.9
[2022-10-16] MEDS: traZODone HCL 50 MG TABLET PO (23:06)
[2022-10-17] MEDS: hydrOXYzine HCL 25 MG TABLET PO
[2022-10-17] MEDS: OLANZapine 10 MG TABLET PO (09:48)
[2022-10-17] MEDS: diphenhydrAMINE HCL 25 MG CAPSULE 50 MG PO ×2 (09:48→20:49)
[2022-10-17] MEDS: clonazePAM 1 MG TABLET PO ×3 (09:48→20:50)
[2022-10-17] MEDS: Lactulose 20 GM/30 ML SOLUTION 10 GM PO ×2 (09:48→20:49)
[2022-10-17 10:11] VITALS: BP 105/61; PULSE 84; TEMP 37.1; O2SAT 96
[2022-10-17 14:22] LABS: COVID-19 Test Negative (Negative); IDNOW Serial# 08D9AD1C
--- NOTE | 2022-10-17 15:04 | P.PNPSI_ITS ---
Subjective Subjective Date of Service: 10/17/22 Reason For Visit: Schizoaffective Interim History: Patient says she is not sure she can stay safe at her grandmother's.? She is worried for her stay grandmother's own safety and does not believe she can return.? She asks what other alternatives there are.? Application Software Engineer discussed how patient yesterday knew she was going to get dysregulated and asked for Geodon to help her calm down so she could avoid a restraint.? Application Software Engineer wondered if she would be able to do this at her grandmother's house with p.o. Geodon.? Patient said she would consider. Later in the day patient said she was getting irritable and asked if she could have a p.o. Geodon to keep her from escalating; patient agreed that this was helpful and in this situation she had enough warning to ask for medication Mental Status Exam Mental Status Exam Narrative: Pt is alert and oriented; behavior is cooperative but can become dysregulated; otherwise, friendly and calm; patient is not in distress; dressed in casual attire, cloths a little unkempt but with adequate hygiene; mood is described as ok and affect blunted; eye contact appropriate staring, but not aggressively; Speech is slowed rate; normal volume and prosody; no psychomotor agitation/retardation present; thought process is organized and goal directed; Thought content is on tx; otherwise pertinent to relevant topics and without any delusional content, paranoid ideations or grandiosity; denies any SI/HI. There is no evidence of perceptual disturbance and she denies AVH. Patients insight and judgment are impaired but at baseline. Diagnostics Vital Signs (24Hr): Vital Signs - 24 hr 10/16/22 15:28 10/16/22 22:00 10/17/22 10:11 Temperature 96.6 F L 98.8 F Pulse Rate 62 104 H 84 Blood Pressure 113/62 116/68 105/61 Pulse Oximetry 98 96 Oxygen Delivery Method Room Air Room Air BMI result Body Mass Index 31.2 Labs Labs: Laboratory Results - last 48 hr 10/17/22 13:38 COVID-19 ([facility]) Negative COVID-19 Clin Com See Note Medications Medications Current Medications Acetaminophen (Acetaminophen 325 Mg Tablet) 650 mg PO Q6H PRN PRN Reason: Headache/Pain Mild Scale (1-3) Al Hydroxide/Mg Hydroxide (Magnesium Hydrox/Alum Hydrox 30 Ml Oral.Susp) 30 ml PO Q6H PRN PRN Reason: Heartburn/Nausea Clonazepam (Clonazepam 1 Mg Tablet) 1 mg PO TID [facility] Last Admin: 10/17/22 14:22 Dose: 1 mg Diphenhydramine HCl (Diphenhydramine Hcl 25 Mg Capsule) 50 mg PO BID [facility] Last Admin: 10/17/22 09:48 Dose: 50 mg Hydroxyzine HCl (Hydroxyzine Hcl 25 Mg Tablet) 25 mg PO Q6H PRN PRN Reason: Anxiety Last Admin: 10/17/22 00:00 Dose: 25 mg Lactulose (Lactulose 20 Gm/30 Ml Solution) 10 gm PO BID [facility] Last Admin: 10/17/22 09:48 Dose: 10 gm Magnesium Hydroxide (Milk Of Magnesia 30 Ml Oral.Susp) 30 ml PO DAILY PRN PRN Reason: Constipation Melatonin (Melatonin 3 Mg Tablet) 6 mg PO BEDTIME PRN PRN Reason: sleep Last Admin: 10/17/22 00:00 Dose: 6 mg Olanzapine (Olanzapine 10 Mg Tablet) 10 mg PO DAILY [facility] Last Admin: 10/17/22 09:48 Dose: 10 mg Olanzapine (Olanzapine 10 Mg Tablet) 20 mg PO BEDTIME [facility] Last Admin: 10/16/22 21:21 Dose: 20 mg Paliperidone (Paliperidone Er 6 Mg Tab.Er.24) 6 mg PO BEDTIME [facility] Last Admin: 10/16/22 21:22 Dose: 6 mg Trazodone HCl (Trazodone Hcl 50 Mg Tablet) 50 mg PO BEDTIME PRN PRN Reason: Insomnia Last Admin: 10/16/22 23:06 Dose: 50 mg Valproic Acid (Valproic Acid (As Sodium Salt) 250 Mg/5 Ml Solution) 2,000 mg PO BID [facility] Last Admin: 10/17/22 09:50 Dose: 2,000 mg Ziprasidone (Ziprasidone 20 Mg Capsule) 20 mg PO BID PRN PRN Reason: agitation Allergies Allergies Allergy/AdvReac Type Severity Reaction Status Date / Time chlorpromazine Allergy Anaphylaxis Verified 09/29/22 18:48 [From Thorazine] nut - unspecified Allergy Anxiety Verified 09/29/22 21:28 haloperidol [From Haldol] AdvReac Agitated Verified 09/29/22 19:27 lithium AdvReac Hives Verified 09/29/22 21:28 Assessment & Plan Assessment & Plan (1) Schizoaffective disorder: Status: Acute Code(s): F25.9 - Schizoaffective disorder, unspecified (2) Intermittent explosive disorder: Status: Acute Code(s): F63.81 - Intermittent explosive disorder Plan pt is 22 yo female with lifetime of psychiatric illness, including just being discharged from [facility] after being there for 5 years who presents to ED after discharged from just days before, in face of getting dysregulated at home, breaking a glass and superficially cutting her arm. . 10/17 Patient is gone irritable but both times has asked for medication and mostly been able to remain in behavioral control and avoid restraint, which is her goal Plan: CV Q 15 minute checks Continue home medications regimen (patient recently discharged from [facility] on these medications) Adding Geodon 20mg as a p.r.n. Olanzapine? 10mg AM Continue Olanzapine 20m qhs Clonazepam 1 mg PO TID [facility] Paliperidone? 6 mg PO BEDTIME [facility] Valproic Acid (Valproic Acid 2,000 mg PO BID [facility] Diphenhydramine HCl? 50 mg PO BID [facility] Melatonin ? 6 mg PO BEDTIME [facility] Trazodone HCl ? 50 mg PO BEDTIME PRN Epinephrine 0.3 mg IM Q20M PRN Gather collateral Medication history from [facility]: Depakote Zyprexa [place] Seroquel Lamictal Ziprasidone Invega Sustenna Abilify, Maintena, Astrada Risperdal BuSpar Lexapro Prozac Effexor Levothyroxine Haldol:? Un tolerated side effect Thorazine: Anaphylaxis [place]: Hives Reason for contiued inpatient stay Substantial Risk for: rapid decompensation Time Spent With Patient Time: Total time managing care of this patient today ____ minutes.
[2022-10-17] MEDS: Ziprasidone 20 MG CAPSULE PO (15:15)
[2022-10-17 20:45] VITALS: BP 125/56; PULSE 104; RESP 18; TEMP 36.6; O2SAT 98
[2022-10-17] MEDS: Paliperidone ER 6 MG TAB.ER.24 PO (20:49)
[2022-10-17] MEDS: OLANZapine 10 MG TABLET 20 MG PO (20:50)
[2022-10-17] MEDS: Melatonin 3 MG TABLET 6 MG PO ×2 (21:45)
[2022-10-17] MEDS: traZODone HCL 50 MG TABLET PO (21:45)
[2022-10-18 09:30] VITALS: BP 105/68; PULSE 78; RESP 16; TEMP 36.8; O2SAT 95
[2022-10-18] MEDS: Lactulose 20 GM/30 ML SOLUTION 10 GM PO ×2 (09:35→21:00)
[2022-10-18] MEDS: OLANZapine 10 MG TABLET PO (09:39)
[2022-10-18] MEDS: clonazePAM 1 MG TABLET PO ×3 (09:39→21:03)
[2022-10-18] MEDS: diphenhydrAMINE HCL 25 MG CAPSULE 50 MG PO ×2 (09:39→21:02)
[2022-10-18] MEDS: Ziprasidone Mesylate 20 MG VIAL IM (15:42)
--- NOTE | 2022-10-18 16:58 | HO.PSYCHPN ---
Subjective Subjective Date of Service: 10/18/22 Reason For Visit: Schizoaffective Interim History: Discussed medications. Patient said that she thinks medication regimen was mostly formed to keep her sedated at the hospital. ?She agrees that she feels kind of like a zombie, however she is worried about getting dysregulated and needing a restraint which she very much wants to avoid.? She said we need to find a ?happy middle ground.? ?She is open to changing some medications around to see if a middle ground is possible.? Patient reiterates she can go back to her grandmother's feeling that it is not safe for her or her grandmother. Later in the day patient got triggered, superficially cut her arm and asked for Geodon IM which she received.? She was easily redirected and went to lie down Mental Status Exam Mental Status Exam Narrative: Pt is alert and oriented; behavior is cooperative; can quickly get dysregulated; otherwise, friendly and calm; patient is not in distress; dressed in casual attire, cloths a little unkempt but with adequate hygiene; mood is described as ok and affect blunted; eye contact appropriate staring, but not aggressively; Speech is slowed rate; normal volume and prosody; no psychomotor agitation/retardation present; thought process is organized and goal directed; Thought content is on tx; otherwise pertinent to relevant topics and without any delusional content, paranoid ideations or grandiosity; denies any SI/HI. There is no evidence of perceptual disturbance and she denies AVH. Patients insight and judgment are impaired but at baseline. Diagnostics Vital Signs (24Hr): Vital Signs - 24 hr 10/17/22 20:45 10/18/22 09:30 Temperature 97.9 F 98.2 F Pulse Rate 104 H 78 Respiratory Rate 18 16 Blood Pressure 125/56 L 105/68 Pulse Oximetry 98 95 Oxygen Delivery Method Room Air Room Air BMI result Body Mass Index 31.2 Labs Labs: Laboratory Results - last 48 hr 10/17/22 13:38 COVID-19 ([facility]) Negative COVID-19 Clin Com See Note Medications Medications Current Medications Acetaminophen (Acetaminophen 325 Mg Tablet) 650 mg PO Q6H PRN PRN Reason: Headache/Pain Mild Scale (1-3) Al Hydroxide/Mg Hydroxide (Magnesium Hydrox/Alum Hydrox 30 Ml Oral.Susp) 30 ml PO Q6H PRN PRN Reason: Heartburn/Nausea Clonazepam (Clonazepam 1 Mg Tablet) 1 mg PO TID [facility] Last Admin: 10/18/22 15:32 Dose: 1 mg Diphenhydramine HCl (Diphenhydramine Hcl 25 Mg Capsule) 50 mg PO BID [facility] Last Admin: 10/18/22 09:39 Dose: 50 mg Hydroxyzine HCl (Hydroxyzine Hcl 25 Mg Tablet) 25 mg PO Q6H PRN PRN Reason: Anxiety Last Admin: 10/17/22 00:00 Dose: 25 mg Lactulose (Lactulose 20 Gm/30 Ml Solution) 10 gm PO BID [facility] Last Admin: 10/18/22 09:35 Dose: 10 gm Magnesium Hydroxide (Milk Of Magnesia 30 Ml Oral.Susp) 30 ml PO DAILY PRN PRN Reason: Constipation Melatonin (Melatonin 3 Mg Tablet) 6 mg PO BEDTIME PRN PRN Reason: sleep Last Admin: 10/17/22 21:45 Dose: 6 mg Olanzapine (Olanzapine 10 Mg Tablet) 20 mg PO BEDTIME [facility] Last Admin: 10/17/22 20:50 Dose: 20 mg Olanzapine (Olanzapine 5 Mg Tablet) 5 mg PO BID@0900,1400 [facility] Paliperidone (Paliperidone Er 6 Mg Tab.Er.24) 6 mg PO BEDTIME [facility] Last Admin: 10/17/22 20:49 Dose: 6 mg Senna/Docusate Sodium (Sennosides/Docusate Sodium Tablet) 1 tab PO BEDTIME [facility] Trazodone HCl (Trazodone Hcl 50 Mg Tablet) 50 mg PO BEDTIME PRN PRN Reason: Insomnia Last Admin: 10/17/22 21:45 Dose: 50 mg Valproic Acid (Valproic Acid (As Sodium Salt) 250 Mg/5 Ml Solution) 2,000 mg PO BID [facility] Last Admin: 10/18/22 09:45 Dose: 2,000 mg Ziprasidone (Ziprasidone 20 Mg Capsule) 20 mg PO BID PRN PRN Reason: agitation Last Admin: 10/17/22 15:15 Dose: 20 mg Allergies Allergies Allergy/AdvReac Type Severity Reaction Status Date / Time chlorpromazine Allergy Anaphylaxis Verified 09/29/22 18:48 [From Thorazine] nut - unspecified Allergy Anxiety Verified 09/29/22 21:28 haloperidol [From Haldol] AdvReac Agitated Verified 09/29/22 19:27 lithium AdvReac Hives Verified 09/29/22 21:28 Assessment & Plan Assessment & Plan (1) Schizoaffective disorder: Status: Acute Code(s): F25.9 - Schizoaffective disorder, unspecified (2) Intermittent explosive disorder: Status: Acute Code(s): F63.81 - Intermittent explosive disorder Plan pt is 22 yo female with lifetime of psychiatric illness, including just being discharged from [facility] after being there for 5 years who presents to ED after discharged from just days before, in face of getting dysregulated at home, breaking a glass and superficially cutting her arm. Continues to deny any AVH and no delusional thinking expressed Hospital course: 10/16 got dysregulated, hit self in face and asked for Geodon IM; she was able to keep herself from further self harm while waiting for medication and avoided a restraint 10/17 Patient is got irritable but asked for medication (geodon) and has otherwise been mostly able to remain in behavioral control and avoid restraint, which is her goal 10/18 pt superficially cut arm, triggered out of nowhere while in art group; got Geodon IM which she requested. Of note, patient is normally on Zyprexa 40mg total daily dose. At her last admission her morning Zyprexa dose was broken up into 10 mg in the morning and 10 mg in the afternoon to help with afternoon dysregulation which patient says is the pattern.? This time however, when admitted this time, she was only started on Zyprexa 10 mg in the morning.? -So far she has gotten dysregulated in the afternoon 3 times versus her last admission during which she did not get dysregulated at all.? That said, her affect is significantly blunted and it would be interesting to see if she can become stable on a total lower dose of Zyprexa.? In this structured environment will continue to keep her on reduced amount (which is still richard at 30 mg total daily dose, down from 40 mg). ?Will break up the dosing to try and better cover the afternoon. Plan: CV Q 15 minute checks Continue home medications regimen (patient recently discharged from [facility] on these medications) Adding Geodon 20mg as a p.r.n. Change to Olanzapine? 5mg AM and 5mg 2pm Continue Olanzapine 20m qhs Clonazepam 1 mg PO TID [facility] Paliperidone? 6 mg PO BEDTIME [facility] Valproic Acid (Valproic Acid 2,000 mg PO BID [facility] Diphenhydramine HCl? 50 mg PO BID [facility] Melatonin ? 6 mg PO BEDTIME [facility] Trazodone HCl ? 50 mg PO BEDTIME PRN Epinephrine 0.3 mg IM Q20M PRN Gather collateral Medication history from [facility]: Depakote Zyprexa [place] Seroquel Lamictal Ziprasidone Invega Sustenna Abilify, Maintena, Astrada Risperdal BuSpar Lexapro Prozac Effexor Levothyroxine Haldol:? Un tolerated side effect Thorazine: Anaphylaxis [place]: Hives Patient educated on: diagnosis, medication risk/benefits and therapeutic strategies Informed Consent: understands Reason for contiued inpatient stay Substantial Risk for: rapid decompensation Time Spent With Patient Time: Total time managing care of this patient today ____ minutes.
[2022-10-18 17:15] VITALS: BP 87/60; PULSE 89; RESP 14; TEMP 36.3; O2SAT 95
[2022-10-18] MEDS: Sennosides/Docusate Sodium TABLET 1 TAB PO (21:01)
[2022-10-18] MEDS: OLANZapine 10 MG TABLET 20 MG PO (21:02)
[2022-10-18] MEDS: Paliperidone ER 6 MG TAB.ER.24 PO (21:03)
[2022-10-18] MEDS: traZODone HCL 50 MG TABLET PO (22:54)
[2022-10-19] MEDS: hydrOXYzine HCL 25 MG TABLET PO ×2 (00:20→23:39)
[2022-10-19] MEDS: Melatonin 3 MG TABLET 6 MG PO ×2 (00:20→23:38)
--- NOTE | 2022-10-19 10:27 | HO.PSYCHPN ---
Subjective Subjective Date of Service: 10/19/22 Reason For Visit: Schizoaffective Interim History: Patient said she can tell that she is on a slightly lower dose of medication; just feels a little less sedated. Discussed coping strategies and medication management and patient agrees to slowly see if she can be okay on lower dose. Also discussed that going from inpatient unit for 5 years to know structured all would be challenging for anyone and it will take time to figure out how best for her to be successful in the community. Discussed patient's moments of dysregulation. She said she is trying to be aware when the common ask for meds prior to getting out of control but agrees she does not have enough coping skills; that said she is willing to work on them Mental Status Exam Mental Status Exam Narrative: Pt is alert and oriented; behavior is cooperative; can quickly get dysregulated; otherwise, friendly and calm; patient is not in distress; dressed in casual attire, cloths a little unkempt but with adequate hygiene; mood is described as ok and affect blunted; eye contact appropriate staring, but not aggressively; Speech is slowed rate; normal volume and prosody; no psychomotor agitation/retardation present; thought process is organized and goal directed; Thought content is on tx; otherwise pertinent to relevant topics and without any delusional content, paranoid ideations or grandiosity; denies any SI/HI. There is no evidence of perceptual disturbance and she denies AVH. Patients insight and judgment are impaired but at baseline. Diagnostics Vital Signs (24Hr): Vital Signs - 24 hr 10/18/22 17:15 Temperature 97.4 F Pulse Rate 89 Respiratory Rate 14 Blood Pressure 87/60 L Pulse Oximetry 95 Oxygen Delivery Method Room Air BMI result Body Mass Index 31.2 Labs Labs: Laboratory Results - last 48 hr 10/17/22 13:38 COVID-19 ([facility]) Negative COVID-19 Clin Com See Note Medications Medications Current Medications Acetaminophen (Acetaminophen 325 Mg Tablet) 650 mg PO Q6H PRN PRN Reason: Headache/Pain Mild Scale (1-3) Al Hydroxide/Mg Hydroxide (Magnesium Hydrox/Alum Hydrox 30 Ml Oral.Susp) 30 ml PO Q6H PRN PRN Reason: Heartburn/Nausea Clonazepam (Clonazepam 1 Mg Tablet) 1 mg PO TID [facility] Last Admin: 10/19/22 10:03 Dose: Not Given Diphenhydramine HCl (Diphenhydramine Hcl 25 Mg Capsule) 50 mg PO BID [facility] Last Admin: 10/19/22 10:05 Dose: Not Given Hydroxyzine HCl (Hydroxyzine Hcl 25 Mg Tablet) 25 mg PO Q6H PRN PRN Reason: Anxiety Last Admin: 10/19/22 00:20 Dose: 25 mg Lactulose (Lactulose 20 Gm/30 Ml Solution) 10 gm PO BID [facility] Last Admin: 10/19/22 10:05 Dose: Not Given Magnesium Hydroxide (Milk Of Magnesia 30 Ml Oral.Susp) 30 ml PO DAILY PRN PRN Reason: Constipation Melatonin (Melatonin 3 Mg Tablet) 6 mg PO BEDTIME PRN PRN Reason: sleep Last Admin: 10/19/22 00:20 Dose: 6 mg Olanzapine (Olanzapine 10 Mg Tablet) 20 mg PO BEDTIME [facility] Last Admin: 10/18/22 21:02 Dose: 20 mg Olanzapine (Olanzapine 5 Mg Tablet) 5 mg PO BID@0900,1400 [facility] Last Admin: 10/19/22 10:05 Dose: Not Given Paliperidone (Paliperidone Er 6 Mg Tab.Er.24) 6 mg PO BEDTIME [facility] Last Admin: 10/18/22 21:03 Dose: 6 mg Senna/Docusate Sodium (Sennosides/Docusate Sodium Tablet) 1 tab PO BEDTIME [facility] Last Admin: 10/18/22 21:01 Dose: 1 tab Trazodone HCl (Trazodone Hcl 50 Mg Tablet) 50 mg PO BEDTIME PRN PRN Reason: Insomnia Last Admin: 10/18/22 22:54 Dose: 50 mg Valproic Acid (Valproic Acid (As Sodium Salt) 250 Mg/5 Ml Solution) 2,000 mg PO BID [facility] Last Admin: 10/19/22 10:05 Dose: Not Given Ziprasidone (Ziprasidone 20 Mg Capsule) 20 mg PO BID PRN PRN Reason: agitation Last Admin: 10/17/22 15:15 Dose: 20 mg Allergies Allergies Allergy/AdvReac Type Severity Reaction Status Date / Time chlorpromazine Allergy Anaphylaxis Verified 09/29/22 18:48 [From Thorazine] nut - unspecified Allergy Anxiety Verified 09/29/22 21:28 haloperidol [From Haldol] AdvReac Agitated Verified 09/29/22 19:27 lithium AdvReac Hives Verified 09/29/22 21:28 Assessment & Plan Assessment & Plan (1) Schizoaffective disorder: Status: Acute Code(s): F25.9 - Schizoaffective disorder, unspecified (2) Intermittent explosive disorder: Status: Acute Code(s): F63.81 - Intermittent explosive disorder Plan pt is 22 yo female with lifetime of psychiatric illness, including just being discharged from [facility] after being there for 5 years who presents to ED after discharged from just days before, in face of getting dysregulated at home, breaking a glass and superficially cutting her arm. Continues to deny any AVH and no delusional thinking expressed Hospital course: 10/16 got dysregulated, hit self in face and asked for Geodon IM; she was able to keep herself from further self harm while waiting for medication and avoided a restraint 10/17 Patient is got irritable but asked for medication (geodon) and has otherwise been mostly able to remain in behavioral control and avoid restraint, which is her goal 10/18 pt superficially cut arm, triggered out of nowhere while in art group; got Geodon IM which she requested. Of note, patient is normally on Zyprexa 40mg total daily dose. At her last admission her morning Zyprexa dose was broken up into 10 mg in the morning and 10 mg in the afternoon to help with afternoon dysregulation which patient says is the pattern.? This time however, when admitted this time, she was only started on Zyprexa 10 mg in the morning.? -So far she has gotten dysregulated in the afternoon 3 times versus her last admission during which she did not get dysregulated at all.? That said, her affect is significantly blunted and it would be interesting to see if she can become stable on a total lower dose of Zyprexa.? In this structured environment will continue to keep her on reduced amount (which is still richard at 30 mg total daily dose, down from 40 mg). ?Will break up the dosing to try and better cover the afternoon. Plan: CV Q 15 minute checks Continue home medications regimen (patient recently discharged from [facility] on these medications) Adding Geodon 20mg as a p.r.n. Change to Olanzapine? 5mg AM and 5mg 2pm Continue Olanzapine 20m qhs Clonazepam 1 mg PO TID [facility] Paliperidone? 6 mg PO BEDTIME [facility] Valproic Acid (Valproic Acid 2,000 mg PO BID [facility] Diphenhydramine HCl? 50 mg PO BID [facility] Melatonin ? 6 mg PO BEDTIME [facility] Trazodone HCl ? 50 mg PO BEDTIME PRN Epinephrine 0.3 mg IM Q20M PRN Gather collateral Medication history from [facility]: Depakote Zyprexa [place] Seroquel Lamictal Ziprasidone Invega Sustenna Abilify, Maintena, Astrada Risperdal BuSpar Lexapro Prozac Effexor Levothyroxine Haldol:? Un tolerated side effect Thorazine: Anaphylaxis [place]: Hives Patient educated on: diagnosis and medication risk/benefits Reason for contiued inpatient stay Substantial Risk for: inability to function and rapid decompensation Time Spent With Patient Time: Total time managing care of this patient today ____ minutes.
[2022-10-19] MEDS: Lactulose 20 GM/30 ML SOLUTION 10 GM PO ×2 (12:12→20:51)
[2022-10-19] MEDS: clonazePAM 1 MG TABLET PO ×3 (12:15→20:50)
[2022-10-19] MEDS: diphenhydrAMINE HCL 25 MG CAPSULE 50 MG PO ×2 (12:15→20:50)
[2022-10-19] MEDS: OLANZapine 5 MG TABLET PO ×3 (12:16→15:22)
[2022-10-19 12:20] VITALS: BP 112/62; PULSE 99; RESP 16; TEMP 36.7; O2SAT 96
[2022-10-19 13:15] LABS: COVID-19 Test Negative (Negative); IDNOW Serial# BCCEAD1C
[2022-10-19 18:00] VITALS: BP 128/62; PULSE 68; RESP 16; TEMP 36.1; O2SAT 97
[2022-10-19] MEDS: Paliperidone ER 6 MG TAB.ER.24 PO (20:43)
[2022-10-19] MEDS: Sennosides/Docusate Sodium TABLET 1 TAB PO (20:43)
[2022-10-19] MEDS: OLANZapine 10 MG TABLET 20 MG PO (20:43)
[2022-10-19] MEDS: Ziprasidone 20 MG CAPSULE PO (22:39)
[2022-10-19] MEDS: traZODone HCL 50 MG TABLET PO (22:39)
[2022-10-20] MEDS: Lactulose 20 GM/30 ML SOLUTION 10 GM PO ×2 (12:09→20:06)
[2022-10-20] MEDS: diphenhydrAMINE HCL 25 MG CAPSULE 50 MG PO ×2 (12:10→20:07)
[2022-10-20] MEDS: OLANZapine 5 MG TABLET PO (12:10)
[2022-10-20] MEDS: clonazePAM 1 MG TABLET PO ×3 (12:10→20:07)
[2022-10-20 16:44] VITALS: BP 122/68; PULSE 92; RESP 16; TEMP 36.4; O2SAT 98
[2022-10-20] MEDS: hydrOXYzine HCL 25 MG TABLET PO (18:14)
--- NOTE | 2022-10-20 19:52 | P.PNPSI_ITS ---
Subjective Subjective Date of Service: 10/20/22 Reason For Visit: Schizoaffective Interim History: Reports she is feeling well, however, reports cough and sneeze to team. Testing for covid, flu pending. Denies issues with meds, except reports she plans to ask Dr. Bustos to change from liquid Depakote to pills as it really tastes bad . Review of medicines with pt. Pleasant, engaged in discussion. Medication Compliance: Yes Side effects from medications: No Attending Groups: No Review of Systems Acute medical concerns: No Medical Review of Systems: unchanged Mental Status Exam Mental Status Exam Narrative: Pt is alert and oriented; behavior is cooperative; can quickly get dysregulated; otherwise, friendly and calm; patient is not in distress; dressed in casual attire, cloths a little unkempt but with adequate hygiene; mood is described as ok and affect blunted; eye contact appropriate staring, but not aggressively; Speech is slowed rate; normal volume and prosody; no psychomotor agitation/retardation present; thought process is organized and goal directed; Thought content is on tx; otherwise pertinent to relevant topics and without any delusional content, paranoid ideations or grandiosity; denies any SI/HI. There is no evidence of perceptual disturbance and she denies AVH. Patients insight and judgment are impaired but at baseline. Diagnostics Vital Signs (24Hr): Vital Signs - 24 hr 10/20/22 16:44 Temperature 97.6 F Pulse Rate 92 Respiratory Rate 16 Blood Pressure 122/68 Pulse Oximetry 98 Oxygen Delivery Method Room Air BMI result Body Mass Index 31.2 Labs Labs: Laboratory Results - last 48 hr 10/19/22 12:10 COVID-19 ([facility]) Negative COVID-19 Clin Com See Note Medications Medications Current Medications Acetaminophen (Acetaminophen 325 Mg Tablet) 650 mg PO Q6H PRN PRN Reason: Headache/Pain Mild Scale (1-3) Al Hydroxide/Mg Hydroxide (Magnesium Hydrox/Alum Hydrox 30 Ml Oral.Susp) 30 ml PO Q6H PRN PRN Reason: Heartburn/Nausea Clonazepam (Clonazepam 1 Mg Tablet) 1 mg PO TID [facility] Last Admin: 10/20/22 16:23 Dose: 1 mg Diphenhydramine HCl (Diphenhydramine Hcl 25 Mg Capsule) 50 mg PO BID [facility] Last Admin: 10/20/22 12:10 Dose: 50 mg Hydroxyzine HCl (Hydroxyzine Hcl 25 Mg Tablet) 25 mg PO Q6H PRN PRN Reason: Anxiety Last Admin: 10/20/22 18:14 Dose: 25 mg Lactulose (Lactulose 20 Gm/30 Ml Solution) 10 gm PO BID [facility] Last Admin: 10/20/22 12:09 Dose: 10 gm Magnesium Hydroxide (Milk Of Magnesia 30 Ml Oral.Susp) 30 ml PO DAILY PRN PRN Reason: Constipation Melatonin (Melatonin 3 Mg Tablet) 6 mg PO BEDTIME PRN PRN Reason: sleep Last Admin: 10/19/22 23:38 Dose: 6 mg Olanzapine (Olanzapine 10 Mg Tablet) 20 mg PO BEDTIME [facility] Last Admin: 10/19/22 20:43 Dose: 20 mg Olanzapine (Olanzapine 5 Mg Tablet) 5 mg PO BID@0900,1400 [facility] Last Admin: 10/20/22 12:10 Dose: 5 mg Paliperidone (Paliperidone Er 6 Mg Tab.Er.24) 6 mg PO BEDTIME [facility] Last Admin: 10/19/22 20:43 Dose: 6 mg Senna/Docusate Sodium (Sennosides/Docusate Sodium Tablet) 1 tab PO BEDTIME [facility] Last Admin: 10/19/22 20:43 Dose: 1 tab Trazodone HCl (Trazodone Hcl 50 Mg Tablet) 50 mg PO BEDTIME PRN PRN Reason: Insomnia Last Admin: 10/19/22 22:39 Dose: 50 mg Valproic Acid (Valproic Acid (As Sodium Salt) 250 Mg/5 Ml Solution) 2,000 mg PO BID [facility] Last Admin: 10/20/22 12:09 Dose: 2,000 mg Ziprasidone (Ziprasidone 20 Mg Capsule) 20 mg PO BID PRN PRN Reason: agitation Last Admin: 10/19/22 22:39 Dose: 20 mg Allergies Allergies Allergy/AdvReac Type Severity Reaction Status Date / Time chlorpromazine Allergy Anaphylaxis Verified 09/29/22 18:48 [From Thorazine] nut - unspecified Allergy Anxiety Verified 09/29/22 21:28 haloperidol [From Haldol] AdvReac Agitated Verified 09/29/22 19:27 lithium AdvReac Hives Verified 09/29/22 21:28 Assessment & Plan Assessment & Plan (1) Schizoaffective disorder: Status: Acute Code(s): F25.9 - Schizoaffective disorder, unspecified (2) Intermittent explosive disorder: Status: Acute Code(s): F63.81 - Intermittent explosive disorder Plan pt is 22 yo female with lifetime of psychiatric illness, including just being discharged from [facility] after being there for 5 years who presents to ED after discharged from just days before, in face of getting dysregulated at home, breaking a glass and superficially cutting her arm. Continues to deny any AVH and no delusional thinking expressed Hospital course: 10/16 got dysregulated, hit self in face and asked for Geodon IM; she was able to keep herself from further self harm while waiting for medication and avoided a restraint 10/17 Patient is got irritable but asked for medication (geodon) and has otherwise been mostly able to remain in behavioral control and avoid restraint, which is her goal 10/18 pt superficially cut arm, triggered out of nowhere while in art group; got Geodon IM which she requested. Of note, patient is normally on Zyprexa 40mg total daily dose. At her last admission her morning Zyprexa dose was broken up into 10 mg in the morning and 10 mg in the afternoon to help with afternoon dysregulation which patient says is the pattern.? This time however, when admitted this time, she was only started on Zyprexa 10 mg in the morning.? -So far she has gotten dysregulated in the afternoon 3 times versus her last admission during which she did not get dysregulated at all.? That said, her affect is significantly blunted and it woul d be interesting to see if she can become stable on a total lower dose of Zyprexa.? In this structured environment will continue to keep her on reduced amount (which is still richard at 30 mg total daily dose, down from 40 mg). ?Will break up the dosing to try and better cover the afternoon. 10/20/22 Continue current plan. COVID/Flu/RSV testing pending Plan: CV Q 15 minute checks Continue home medications regimen (patient recently discharged from [facility] on these medications) Adding Geodon 20mg as a p.r.n. Change to Olanzapine? 5mg AM and 5mg 2pm Continue Olanzapine 20m qhs Clonazepam 1 mg PO TID [facility] Paliperidone? 6 mg PO BEDTIME [facility] Valproic Acid (Valproic Acid 2,000 mg PO BID [facility] Diphenhydramine HCl? 50 mg PO BID [facility] Melatonin ? 6 mg PO BEDTIME [facility] Trazodone HCl ? 50 mg PO BEDTIME PRN Epinephrine 0.3 mg IM Q20M PRN Gather collateral Medication history from [facility]: Depakote Zyprexa [place] Seroquel Lamictal Ziprasidone Invega Sustenna Abilify, Maintena, Astrada Risperdal BuSpar Lexapro Prozac Effexor Levothyroxine Haldol:? Un tolerated side effect Thorazine: Anaphylaxis [place]: Hives Informed Consent: does not understand and further education needed Reason for contiued inpatient stay Substantial Risk for: rapid decompensation Time Spent With Patient Time: Total time managing care of this patient today _15___ minutes.
[2022-10-20 19:53] LABS: IDNOW Serial# 6674DD1D; Strep A Nucleic Acid Negative (Negative)
[2022-10-20] MEDS: OLANZapine 10 MG TABLET 20 MG PO (20:06)
[2022-10-20] MEDS: Paliperidone ER 6 MG TAB.ER.24 PO (20:07)
[2022-10-20] MEDS: Sennosides/Docusate Sodium TABLET 1 TAB PO (20:08)
[2022-10-20 20:14] LABS: Influenza A PCR NEGATIVE (Negative); Influenza B PCR NEGATIVE (Negative); Resp Syncy Virus RNA Qual PCR NEGATIVE (Negative); SARS COV2 PCR INHOUSE NEGATIVE (Negative)
[2022-10-20] MEDS: Ziprasidone 20 MG CAPSULE PO (20:30)
[2022-10-20] MEDS: traZODone HCL 50 MG TABLET PO (20:52)
[2022-10-20] MEDS: Melatonin 3 MG TABLET 6 MG PO (20:52)
[2022-10-20] MEDS: Ziprasidone Mesylate 20 MG VIAL IM (21:58)
[2022-10-21 08:10] VITALS: BP 107/63; PULSE 82; RESP 16; TEMP 36.8; O2SAT 95
[2022-10-21] MEDS: clonazePAM 1 MG TABLET PO ×3 (09:27→21:18)
[2022-10-21] MEDS: Lactulose 20 GM/30 ML SOLUTION 10 GM PO ×2 (09:27→21:18)
[2022-10-21] MEDS: OLANZapine 5 MG TABLET PO ×2 (09:28→14:29)
[2022-10-21] MEDS: diphenhydrAMINE HCL 25 MG CAPSULE 50 MG PO ×2 (09:28→21:17)
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
[2022-10-21 18:00] VITALS: BP 126/68; PULSE 82; RESP 16; TEMP 36.6; O2SAT 98
[2022-10-21] MEDS: traZODone HCL 50 MG TABLET PO (21:15)
[2022-10-21] MEDS: Ziprasidone 20 MG CAPSULE PO (21:16)
[2022-10-21] MEDS: Melatonin 3 MG TABLET 6 MG PO (21:16)
[2022-10-21] MEDS: OLANZapine 10 MG TABLET 20 MG PO (21:17)
[2022-10-21] MEDS: Paliperidone ER 6 MG TAB.ER.24 PO (21:17)
[2022-10-21] MEDS: Sennosides/Docusate Sodium TABLET 1 TAB PO (21:18)
[2022-10-22 09:25] VITALS: BP 108/60; PULSE 86; RESP 16; TEMP 36.6; O2SAT 98
[2022-10-22] MEDS: clonazePAM 1 MG TABLET PO ×2 (09:56→14:32)
[2022-10-22] MEDS: diphenhydrAMINE HCL 25 MG CAPSULE 50 MG PO ×2 (09:56→20:49)
[2022-10-22] MEDS: OLANZapine 5 MG TABLET PO ×2 (09:56→14:32)
[2022-10-22] MEDS: Lactulose 20 GM/30 ML SOLUTION 10 GM PO ×2 (10:01→20:50)
[2022-10-22 15:27] LABS: COVID-19 Test Negative (Negative); IDNOW Serial# BCCEAD1C
[2022-10-22] MEDS: Ziprasidone 20 MG CAPSULE PO (18:11)
[2022-10-22] MEDS: Ziprasidone Mesylate 20 MG VIAL IM (19:25)
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
[2022-10-22] MEDS: LORazepam 2 MG/ML VIAL IM (19:58)
[2022-10-22 20:25] VITALS: BP 117/76; PULSE 124; TEMP 36.7; O2SAT 97
[2022-10-22] MEDS: Sennosides/Docusate Sodium TABLET 1 TAB PO (20:49)
[2022-10-22] MEDS: OLANZapine 10 MG TABLET 20 MG PO (20:49)
[2022-10-22] MEDS: traZODone HCL 50 MG TABLET PO ×3 (20:50→23:46)
[2022-10-22] MEDS: Acetaminophen 325 MG TABLET 650 MG PO (22:01)
[2022-10-22] MEDS: hydrOXYzine HCL 25 MG TABLET PO (23:45)
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
[2022-10-23] MEDS: traMADoL HCL 50 MG TABLET 25 MG PO (01:31)
[2022-10-23 08:46] VITALS: BP 124/86; PULSE 78; RESP 16; TEMP 36.8; O2SAT 96
[2022-10-23] MEDS: clonazePAM 1 MG TABLET PO ×3 (10:00→21:30)
[2022-10-23] MEDS: OLANZapine 5 MG TABLET PO ×2 (10:00→15:36)
[2022-10-23] MEDS: diphenhydrAMINE HCL 25 MG CAPSULE 50 MG PO ×2 (10:00→21:30)
[2022-10-23] MEDS: Lactulose 20 GM/30 ML SOLUTION 10 GM PO ×2 (10:01→21:27)
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
[2022-10-23] MEDS: Acetaminophen 325 MG TABLET 650 MG PO ×2 (11:03→22:54)
[2022-10-23] MEDS: OLANZapine 7.5 MG TABLET 15 MG PO (15:36)
[2022-10-23] MEDS: OLANZapine 10 MG TABLET 20 MG PO (21:29)
[2022-10-23] MEDS: Paliperidone ER 6 MG TAB.ER.24 PO (21:30)
[2022-10-23] MEDS: Sennosides/Docusate Sodium TABLET 1 TAB PO (21:35)
[2022-10-23] MEDS: Melatonin 3 MG TABLET 6 MG PO (23:20)
[2022-10-23] MEDS: traZODone HCL 50 MG TABLET PO (23:21)
[2022-10-23 23:30] VITALS: BP 117/59; PULSE 102; TEMP 36.6
[2022-10-23] MEDS: NaPROXEN 500 MG TABLET PO (23:46)
[2022-10-24 06:00] VITALS: BP 129/62; PULSE 86; RESP 97; TEMP 36.6; O2SAT 97
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
[2022-10-24] MEDS: OLANZapine 7.5 MG TABLET 15 MG PO (12:26)
[2022-10-24] MEDS: diphenhydrAMINE HCL 25 MG CAPSULE 50 MG PO ×2 (12:26→20:58)
[2022-10-24] MEDS: Lactulose 20 GM/30 ML SOLUTION 10 GM PO ×2 (12:26→20:59)
[2022-10-24] MEDS: clonazePAM 1 MG TABLET PO ×3 (12:26→20:59)
[2022-10-24] MEDS: Acetaminophen 325 MG TABLET 650 MG PO (12:26)
[2022-10-24] MEDS: hydrOXYzine HCL 25 MG TABLET PO (12:26)
[2022-10-24 18:00] VITALS: BP 124/78; PULSE 82; RESP 18; TEMP 36.6; O2SAT 98
[2022-10-24] MEDS: Ziprasidone Mesylate 20 MG VIAL IM (20:08)
--- NOTE | 2022-10-24 20:41 | PC.NURSE ---
pt woke from nap and screamed and told this typewriter operator automatic she was very anxious because she slept all day and would not be able to sleep during the overnight. tw instructed pt that she had prn medications to help w/ sleep and would ask staff to wake her in the am to establish a wake/sleep routine and offered prn anxiety meds which the pt refused. she then threw her dinner tray and stated she wanted to receive Geodon IM because she was so anxious and irritable that the PO meds would not work. Provider contacted and order was written and adminstered w/ good affect. Pt ate some toast, drank walt heber and returned to bed.
[2022-10-24] MEDS: NaPROXEN 500 MG TABLET PO (20:58)
[2022-10-24] MEDS: OLANZapine 10 MG TABLET 20 MG PO (20:58)
[2022-10-24] MEDS: Sennosides/Docusate Sodium TABLET 1 TAB PO (20:58)
[2022-10-24] MEDS: Paliperidone ER 6 MG TAB.ER.24 PO (20:58)
[2022-10-24] MEDS: Melatonin 3 MG TABLET 6 MG PO (20:59)
[2022-10-24] MEDS: traZODone HCL 50 MG TABLET PO (20:59)
[2022-10-25] MEDS: hydrOXYzine HCL 25 MG TABLET PO (04:35)
[2022-10-25] MEDS: Ziprasidone 20 MG CAPSULE PO (04:35)
[2022-10-25 07:00] VITALS: BMI 34.1
[2022-10-25] MEDS: clonazePAM 1 MG TABLET PO ×3 (10:31→18:43)
[2022-10-25] MEDS: diphenhydrAMINE HCL 25 MG CAPSULE 50 MG PO ×2 (10:31→18:43)
[2022-10-25] MEDS: OLANZapine 7.5 MG TABLET 15 MG PO ×2 (10:31→15:27)
[2022-10-25] MEDS: Lactulose 20 GM/30 ML SOLUTION 10 GM PO (10:31)
[2022-10-25] MEDS: Valproic Acid 250 MG CAPSULE 2000 MG PO ×2 (11:36→18:42)
[2022-10-25 13:00] VITALS: BP 120/64; PULSE 110; TEMP 36.6
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
[2022-10-25] MEDS: ALPRAZolam 0.5 MG TABLET 1 MG PO (15:30)
[2022-10-25 18:00] VITALS: BP 119/68; PULSE 68; RESP 16; TEMP 36.6; O2SAT 97
[2022-10-25] MEDS: Ziprasidone Mesylate 20 MG VIAL IM (18:12)
[2022-10-25] MEDS: Melatonin 3 MG TABLET 6 MG PO (18:42)
[2022-10-25] MEDS: OLANZapine 10 MG TABLET 20 MG PO (18:42)
[2022-10-25] MEDS: Sennosides/Docusate Sodium TABLET 1 TAB PO (18:44)
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
[2022-10-26] MEDS: ALPRAZolam 0.5 MG TABLET PO (04:24)
[2022-10-26] MEDS: hydrOXYzine HCL 25 MG TABLET PO (04:24)
--- NOTE | 2022-10-26 04:34 | PC.NURSE ---
in a monotone sing song like voice. pt requests something for sleep. specifically she asks for melatonin which is not an option for its already been given tonight. pt becomes visibly upset when she finds out that melatonin is not available. she clenches her fists and pushes forward threatening to breach the confines of the med/room. she is told that she can receive both atarax and xanax for anxiety and agitation. this possibility seems to placate her and she becomes less hostile. pt does not make eye contact with interaction. she is receptive and take both the ativan and atarax. she returns to her room is places herself in a recumbent position in her bed.
[2022-10-26] MEDS: diphenhydrAMINE HCL 25 MG CAPSULE 50 MG PO ×2 (12:24→20:21)
[2022-10-26] MEDS: Valproic Acid 250 MG CAPSULE 2000 MG PO ×2 (12:24→20:20)
[2022-10-26] MEDS: clonazePAM 1 MG TABLET PO ×3 (12:25→20:21)
[2022-10-26] MEDS: Lactulose 20 GM/30 ML SOLUTION 10 GM PO ×2 (12:25→20:20)
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
[2022-10-26 18:00] VITALS: BP 120/64; PULSE 102; TEMP 36.7; O2SAT 97
[2022-10-26] MEDS: Paliperidone ER 6 MG TAB.ER.24 PO (20:21)
[2022-10-26] MEDS: Sennosides/Docusate Sodium TABLET 1 TAB PO (20:21)
[2022-10-26] MEDS: OLANZapine 10 MG TABLET 20 MG PO (20:21)
[2022-10-27] MEDS: ALPRAZolam 0.5 MG TABLET PO ×2 (00:02→23:47)
[2022-10-27] MEDS: traZODone HCL 50 MG TABLET PO ×2 (00:02→23:48)
[2022-10-27] MEDS: hydrOXYzine HCL 25 MG TABLET PO ×2 (00:02→23:48)
[2022-10-27] MEDS: diphenhydrAMINE HCL 25 MG CAPSULE 50 MG PO ×2 (09:56→20:49)
[2022-10-27] MEDS: Lactulose 20 GM/30 ML SOLUTION 10 GM PO ×2 (09:56→20:50)
[2022-10-27] MEDS: clonazePAM 1 MG TABLET PO ×3 (09:56→20:53)
[2022-10-27] MEDS: Valproic Acid 250 MG CAPSULE 2000 MG PO ×2 (09:57→20:47)
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
[2022-10-27] MEDS: OLANZapine 7.5 MG TABLET 15 MG PO (15:35)
[2022-10-27] MEDS: Sennosides/Docusate Sodium TABLET 1 TAB PO (20:48)
[2022-10-27] MEDS: OLANZapine 10 MG TABLET 20 MG PO (20:48)
[2022-10-27] MEDS: Paliperidone ER 6 MG TAB.ER.24 PO (20:49)
[2022-10-27 20:55] VITALS: BP 117/59; PULSE 104; TEMP 36.3
[2022-10-27] MEDS: NaPROXEN 500 MG TABLET PO (20:58)
[2022-10-27] MEDS: Hydrocortisone 1 % Ointment 28.35 GM TUBE 1 APPL TOPICAL (23:10)
[2022-10-27] MEDS: Melatonin 3 MG TABLET 6 MG PO (23:47)
[2022-10-28 06:00] VITALS: BP 109/69; PULSE 100; RESP 16; TEMP 36.9; O2SAT 93
[2022-10-28] MEDS: Lactulose 20 GM/30 ML SOLUTION 10 GM PO ×2 (09:18→20:27)
[2022-10-28] MEDS: NaPROXEN 500 MG TABLET PO (09:19)
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
[2022-10-28] MEDS: OLANZapine 7.5 MG TABLET 15 MG PO (14:49)
[2022-10-28] MEDS: clonazePAM 1 MG TABLET PO ×3 (14:50→20:35)
[2022-10-28 18:43] VITALS: BP 112/62; PULSE 96; RESP 16; TEMP 36.6; O2SAT 96
[2022-10-28] MEDS: Acetaminophen 325 MG TABLET 650 MG PO (18:52)
[2022-10-28] MEDS: Divalproex Sodium ER 500 MG TAB.ER.24H 4000 MG PO (20:26)
[2022-10-28] MEDS: diphenhydrAMINE HCL 25 MG CAPSULE 50 MG PO (20:27)
[2022-10-28] MEDS: Sennosides/Docusate Sodium TABLET 1 TAB PO (20:27)
[2022-10-28] MEDS: OLANZapine 10 MG TABLET 20 MG PO (20:27)
[2022-10-28] MEDS: Paliperidone ER 6 MG TAB.ER.24 PO (20:28)
[2022-10-29 10:12] VITALS: BP 101/58; PULSE 91; RESP 16; TEMP 36.4; O2SAT 97
[2022-10-29] MEDS: Lactulose 20 GM/30 ML SOLUTION 10 GM PO ×3 (10:15→21:13)
[2022-10-29] MEDS: clonazePAM 1 MG TABLET PO ×3 (13:43→21:11)
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
[2022-10-29] MEDS: OLANZapine 7.5 MG TABLET 15 MG PO (15:56)
[2022-10-29 16:53] VITALS: BP 123/70; PULSE 94; TEMP 36.3; O2SAT 97
[2022-10-29] MEDS: Divalproex Sodium ER 500 MG TAB.ER.24H 4000 MG PO (21:11)
[2022-10-29] MEDS: Paliperidone ER 6 MG TAB.ER.24 PO (21:13)
[2022-10-29] MEDS: diphenhydrAMINE HCL 25 MG CAPSULE 50 MG PO (21:13)
[2022-10-29] MEDS: OLANZapine 10 MG TABLET 20 MG PO (21:13)
[2022-10-29] MEDS: Sennosides/Docusate Sodium TABLET 1 TAB PO (21:13)
[2022-10-30 08:20] VITALS: BP 97/56; PULSE 87; RESP 16; TEMP 36.2; O2SAT 97
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
[2022-10-30] MEDS: clonazePAM 1 MG TABLET PO ×2 (15:25→19:27)
[2022-10-30] MEDS: OLANZapine 7.5 MG TABLET 15 MG PO (15:26)
[2022-10-30] MEDS: ALPRAZolam 0.5 MG TABLET PO (17:12)
[2022-10-30] MEDS: Ziprasidone 20 MG CAPSULE PO (17:12)
[2022-10-30 17:34] VITALS: BP 116/70; PULSE 103; RESP 16; TEMP 36.2; O2SAT 96
[2022-10-30] MEDS: Ziprasidone Mesylate 20 MG VIAL 10 MG IM (19:26)
[2022-10-30] MEDS: Sennosides/Docusate Sodium TABLET 1 TAB PO (20:21)
[2022-10-30] MEDS: Divalproex Sodium ER 500 MG TAB.ER.24H 4000 MG PO (20:21)
[2022-10-30] MEDS: OLANZapine 10 MG TABLET 20 MG PO (20:21)
[2022-10-30] MEDS: Paliperidone ER 6 MG TAB.ER.24 PO (20:21)
[2022-10-30] MEDS: diphenhydrAMINE HCL 25 MG CAPSULE 50 MG PO (20:21)
[2022-10-30] MEDS: Lactulose 20 GM/30 ML SOLUTION 10 GM PO (20:22)
[2022-10-31] MEDS: clonazePAM 1 MG TABLET PO ×4 (00:01→21:33)
[2022-10-31 06:00] VITALS: RESP 16
[2022-10-31] MEDS: Lactulose 20 GM/30 ML SOLUTION 10 GM PO ×2 (09:12→20:56)
[2022-10-31] MEDS: ALPRAZolam 0.5 MG TABLET PO ×2 (10:09→23:04)
[2022-10-31] MEDS: hydrOXYzine HCL 25 MG TABLET PO (10:09)
[2022-10-31] MEDS: Acetaminophen 325 MG TABLET 650 MG PO (13:34)
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
[2022-10-31] MEDS: OLANZapine 7.5 MG TABLET 15 MG PO (16:02)
[2022-10-31 17:05] VITALS: BP 126/65; PULSE 110; TEMP 36.4; O2SAT 96
[2022-10-31] MEDS: Paliperidone ER 6 MG TAB.ER.24 PO (20:57)
[2022-10-31] MEDS: OLANZapine 10 MG TABLET 20 MG PO (20:58)
[2022-10-31] MEDS: diphenhydrAMINE HCL 25 MG CAPSULE 50 MG PO (20:58)
[2022-10-31] MEDS: Sennosides/Docusate Sodium TABLET 1 TAB PO (20:58)
[2022-10-31] MEDS: Divalproex Sodium ER 500 MG TAB.ER.24H 4000 MG PO (20:58)
[2022-10-31] MEDS: Ziprasidone 20 MG CAPSULE PO (23:04)
[2022-10-31] MEDS: Melatonin 3 MG TABLET 6 MG PO (23:53)
[2022-11-01] MEDS: NaPROXEN 500 MG TABLET PO (00:18)
[2022-11-01] MEDS: hydrOXYzine HCL 25 MG TABLET PO (00:19)
[2022-11-01 07:00] VITALS: BMI 35.0
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
[2022-11-01 11:45] VITALS: BP 116/66; PULSE 100; RESP 16; TEMP 36.4; O2SAT 99
[2022-11-01] MEDS: Lactulose 20 GM/30 ML SOLUTION 10 GM PO (11:57)
[2022-11-01] MEDS: clonazePAM 1 MG TABLET PO ×2 (16:39→20:28)
[2022-11-01] MEDS: OLANZapine 7.5 MG TABLET 15 MG PO (16:39)
[2022-11-01 18:32] VITALS: BP 137/71; PULSE 98
[2022-11-01] MEDS: Divalproex Sodium ER 500 MG TAB.ER.24H 4000 MG PO (20:27)
[2022-11-01] MEDS: ALPRAZolam 0.5 MG TABLET PO ×2 (20:28→21:07)
[2022-11-01] MEDS: Sennosides/Docusate Sodium TABLET 1 TAB PO (20:28)
[2022-11-01] MEDS: diphenhydrAMINE HCL 25 MG CAPSULE 50 MG PO (20:28)
[2022-11-01] MEDS: Paliperidone ER 6 MG TAB.ER.24 PO (20:28)
[2022-11-01] MEDS: OLANZapine 10 MG TABLET 20 MG PO (20:28)
[2022-11-01] MEDS: traZODone HCL 50 MG TABLET PO (21:29)
[2022-11-01] MEDS: Ziprasidone 20 MG CAPSULE PO (21:29)
[2022-11-01] MEDS: Melatonin 3 MG TABLET 6 MG PO (21:30)
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
--- NOTE | 2022-11-02 13:29 | PC.NURSE ---
pt complains of SOB when ambulating. o2 sat 97%. provider notified.
[2022-11-02] MEDS: Lactulose 20 GM/30 ML SOLUTION 10 GM PO (13:31)
[2022-11-02] MEDS: Loratadine 10 MG TABLET PO (14:46)
[2022-11-02 14:48] LABS: Estimated Average Glucose 88 mg/dL; Hemoglobin A1c % 4.7 %
[2022-11-02] MEDS: ALPRAZolam 0.5 MG TABLET PO (15:19)
[2022-11-02] MEDS: clonazePAM 1 MG TABLET PO ×2 (15:19→16:42)
[2022-11-02 16:24] LABS: Ammonia 82 umol/L (13-55)
[2022-11-02 16:40] LABS: Alanine Aminotransferase 11 U/L (0-31); Albumin Level 3.8 g/dL (3.5-5.0); Alkaline Phosphatase 46 U/L (39-117); Anion Gap 15 (12-20); Aspartate Amino Transferase 24 U/L (5-31); Bilirubin Direct < 0.2 mg/dL (0.0-0.5); Bilirubin Total 0.2 mg/dL (0.0-1.0); Blood Urea Nitrogen 29 mg/dL (9-16); Calcium 9.4 mg/dL (8.4-10.2); Carbon Dioxide 24 mmol/L (22-29); Chloride 108 mmol/L (96-108); Creatinine Clr Calc Pharmacy 171.2; Estimated Glomerular Filt Rate > 60; Glucose Random 91 mg/dL (60-115); Potassium 4.6 mmol/L (3.3-5.1); Sodium 142 mmol/L (135-145)
[2022-11-02] MEDS: OLANZapine 7.5 MG TABLET 15 MG PO (16:42)
[2022-11-02 16:54] LABS: Free T4 (Free Thyroxine) 0.74 ng/dL (0.71-1.85); Thyroid Stimulating Hormone 4.33 uIU/mL (0.32-4.0)
[2022-11-02] MEDS: OLANZapine 10 MG TABLET 20 MG PO (19:53)
[2022-11-02] MEDS: diphenhydrAMINE HCL 25 MG CAPSULE 50 MG PO (19:53)
[2022-11-02] MEDS: Divalproex Sodium ER 500 MG TAB.ER.24H 4000 MG PO (19:53)
[2022-11-02] MEDS: cloNIDine HCL 0.1 MG TABLET PO (19:54)
[2022-11-02] MEDS: Sennosides/Docusate Sodium TABLET 1 TAB PO (19:54)
[2022-11-02] MEDS: Paliperidone ER 6 MG TAB.ER.24 PO (19:54)
[2022-11-02] MEDS: traZODone HCL 100 MG TABLET PO (19:54)
[2022-11-02] MEDS: Melatonin 3 MG TABLET 6 MG PO (19:55)
[2022-11-02 19:58] VITALS: BP 114/70; PULSE 99
[2022-11-02] MEDS: Magnesium Hydrox/Alum Hydrox 30 ML ORAL.SUSP PO (22:01)
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
[2022-11-03] MEDS: Lactulose 20 GM/30 ML SOLUTION 10 GM PO (13:14)
[2022-11-03 13:24] VITALS: BP 109/60; PULSE 93; RESP 20; TEMP 36.5; O2SAT 97
[2022-11-03] MEDS: clonazePAM 1 MG TABLET PO ×3 (14:44→21:36)
[2022-11-03] MEDS: Hydrocortisone 1 % Ointment 28.35 GM TUBE 1 APPL TOPICAL (14:49)
--- NOTE | 2022-11-03 15:10 | PC.NURSE ---
Pt has eczema like rash on wrist and is complaining of swelling of bilateral hands and feet, MD aware.
[2022-11-03] MEDS: OLANZapine 7.5 MG TABLET 15 MG PO (15:56)
[2022-11-03 18:00] VITALS: BP 119/82; PULSE 101; RESP 22; TEMP 35.9; O2SAT 97
[2022-11-03 18:14] LABS: Ammonia 67 umol/L (13-55)
[2022-11-03 18:30] LABS: Valproate 119.1 mcg/mL (50.0-100.0)
[2022-11-03] MEDS: Sennosides/Docusate Sodium TABLET 1 TAB PO (21:34)
[2022-11-03] MEDS: OLANZapine 10 MG TABLET 20 MG PO (21:34)
[2022-11-03] MEDS: traZODone HCL 100 MG TABLET PO (21:34)
[2022-11-03] MEDS: diphenhydrAMINE HCL 25 MG CAPSULE 50 MG PO (21:35)
[2022-11-03] MEDS: Paliperidone ER 6 MG TAB.ER.24 PO (21:35)
[2022-11-03] MEDS: cloNIDine HCL 0.1 MG TABLET PO (21:35)
[2022-11-03] MEDS: Divalproex Sodium ER 500 MG TAB.ER.24H 3500 MG PO (21:35)
[2022-11-03] MEDS: Lactulose 20 GM/30 ML SOLUTION PO (21:35)
[2022-11-03 21:54] LABS: Follicle Stimulating Hormone 7.6 mIU/mL
[2022-11-03] MEDS: hydrOXYzine HCL 25 MG TABLET PO (23:27)
[2022-11-03] MEDS: Melatonin 3 MG TABLET 6 MG PO (23:27)
[2022-11-03] MEDS: ALPRAZolam 0.5 MG TABLET PO (23:27)
[2022-11-04] MEDS: Lactulose 20 GM/30 ML SOLUTION PO ×2 (09:14→21:17)
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
[2022-11-04] MEDS: Loratadine 10 MG TABLET PO (09:45)
[2022-11-04 09:54] VITALS: BP 102/56; PULSE 91; RESP 20; TEMP 36.4; O2SAT 96
[2022-11-04] MEDS: clonazePAM 1 MG TABLET PO ×3 (13:47→21:26)
[2022-11-04] MEDS: OLANZapine 7.5 MG TABLET 15 MG PO (16:54)
[2022-11-04 21:10] VITALS: BP 120/58; PULSE 96; TEMP 36.4; O2SAT 96
[2022-11-04] MEDS: traZODone HCL 100 MG TABLET PO (21:18)
[2022-11-04] MEDS: OLANZapine 10 MG TABLET 20 MG PO (21:19)
[2022-11-04] MEDS: Sennosides/Docusate Sodium TABLET 1 TAB PO (21:19)
[2022-11-04] MEDS: Paliperidone ER 6 MG TAB.ER.24 PO (21:19)
[2022-11-04] MEDS: cloNIDine HCL 0.1 MG TABLET PO (21:19)
[2022-11-04] MEDS: Divalproex Sodium ER 500 MG TAB.ER.24H 3500 MG PO (21:19)
[2022-11-04] MEDS: diphenhydrAMINE HCL 25 MG CAPSULE 50 MG PO (21:19)
[2022-11-04] MEDS: Melatonin 3 MG TABLET 6 MG PO (23:08)
[2022-11-04] MEDS: ALPRAZolam 0.5 MG TABLET PO (23:08)
[2022-11-04] MEDS: hydrOXYzine HCL 25 MG TABLET PO (23:08)
[2022-11-05 06:00] VITALS: BP 109/56; PULSE 62; RESP 16; TEMP 36.8; O2SAT 98
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
[2022-11-05] MEDS: Lactulose 20 GM/30 ML SOLUTION PO ×2 (14:17→21:42)
[2022-11-05] MEDS: clonazePAM 1 MG TABLET PO ×3 (14:49→21:45)
[2022-11-05] MEDS: Albuterol Sulfate 90 MCG 8 GM INHALER 2 PUFF INHALE (15:13)
[2022-11-05] MEDS: OLANZapine 7.5 MG TABLET 15 MG PO (16:25)
--- NOTE | 2022-11-05 18:10 | HO.PM.IMCN ---
History of Present Illness Data of Consult Service Date: 11/05/22 Requesting physician: Ruel Bustos Primary Care Provider: Unknown Physician HPI Reason for consult: swelling B/L hands and feet, shortness of breath 22 year old female with history of PTSD, suspected autism spectrum disorder, schizoaffective disorder, and intermittent explosive disorder admitted to psychiatry with consult placed to medicine for evaluation of swelling of the hands and feet bilaterally and shortness of breath. The patient is a limited historian, history also discussed with Dr. Bustos. The patient had been living in a state psychiatric facility in [place] for 5 years before arrival to our ED with subsequent admission. Has been slowing titrating doses of her psychiatric medications. Apparently has been experiencing swelling of the hands/feet b/l for sometime, the patient reports noticing it during her hospitalization in [place] but cannot give an exact timeframe. She states there is only pain in the lower extremities with prolonged standing, such as when showering. She also describes a chest tightness and shortness of breath, like an air hunger, but again cannot give a timeframe. She does not have history of asthma. Endorses an occassional cough. Has been afebrile. Vitals normal, no hypoxia, sustained tachycardia. EKG on admission showed NSR, rate 92, no ST/T wave abnormality. She does state she stays in bed for most of the day. Review of Systems Review of Systems: General: No fevers, malaise, unintentional weight loss HEENT: No blurred vision, diplopia. No sore throat, nasal congestion, rhinorrhea, sinus pain, ear pain Cardiovascular: +chest pain, ble and b/l hand swelling. No palpitations Respiratory: +shortness of breath, +ARNOLD, +cough. No wheezing, cough GI: No abdominal pain, nausea, vomiting, diarrhea, constipation, melena, hematochezia : No dysuria, hematuria, increased urinary frequency, decreased urinary output YARD SPOTTER: +amenorrhea MSK: No myalgia, back pain Neuro: No headaches, weakness, paresthesias Skin: No rashes or lesions PMFSH Medical History Autism Homicidal behavior PTSD (post-traumatic stress disorder) Schizoaffective disorder Suicidal behavior Social History Household Members: Family Housing: House Do you presently have visiting nurse or other home services: No Alcohol intake: never Patient Tobacco Use Status: Never used Tobacco Use of substances other than those prescribed or required for medical reasons: No Currently Displaying Signs/Symptoms of Drug Intoxication Withdrawal: No Have you been hit, kicked, punched, or otherwise hurt by someone within the past year? If so, by whom?: No Do you feel safe in your current relationship?: No Current Relationship Is there a partner from a previous relationship who is making you feel unsafe now?: No Are you made to feel afraid or neglected: No Advance Directives: No Advance Directives Information Provided: Yes Do you have thoughts of harming others: None Do you have a plan to hurt others: No Plan Recently lost weight without trying: No How much weight loss: Not applicable Eating poorly because of decreased appetite: No Nutrition screen score: 0 Nutrition Risks: No Nutritional Risk Patient : No : No Poor oral hygiene: No service: No Sexual orientation: Did not discuss Meds Allergies Allergy/AdvReac Type Severity Reaction Status Date / Time chlorpromazine Allergy Anaphylaxis Verified 09/29/22 18:48 [From Thorazine] nut - unspecified Allergy Anxiety Verified 09/29/22 21:28 haloperidol [From Haldol] AdvReac Agitated Verified 09/29/22 19:27 lithium AdvReac Hives Verified 09/29/22 21:28 Active Medications: Current Medications Acetaminophen (Acetaminophen 325 Mg Tablet) 650 mg PO Q6H PRN PRN Reason: Headache/Pain Mild Scale (1-3) Last Admin: 10/31/22 13:34 Dose: 650 mg Al Hydroxide/Mg Hydroxide (Magnesium Hydrox/Alum Hydrox 30 Ml Oral.Susp) 30 ml PO Q6H PRN PRN Reason: Heartburn/Nausea Last Admin: 11/02/22 22:01 Dose: 30 ml Albuterol Sulfate (Albuterol Sulfate 90 Mcg 8 Gm Inhaler) 2 puff INHALE RQ4H PRN PRN Reason: Shortness of Breath Last Admin: 11/05/22 15:13 Dose: 2 puff Alprazolam (Alprazolam 0.5 Mg Tablet) 0.5 mg PO TID PRN PRN Reason: agitation Last Admin: 11/04/22 23:08 Dose: 0.5 mg Clonazepam (Clonazepam 1 Mg Tablet) 1 mg PO TID@1400,1700,2000 [facility] Last Admin: 11/05/22 16:25 Dose: 1 mg Clonidine HCl (Clonidine Hcl 0.1 Mg Tablet) 0.1 mg PO BEDTIME OSCAR; Protocol Last Admin: 11/04/22 21:19 Dose: 0.1 mg Diphenhydramine HCl (Diphenhydramine Hcl 25 Mg Capsule) 50 mg PO BEDTIME OSCAR Last Admin: 11/04/22 21:19 Dose: 50 mg Divalproex Sodium (Divalproex Sodium Er 500 Mg Tab.Er.24h) 3,500 mg PO BEDTIME OSCAR Last Admin: 11/04/22 21:19 Dose: 3,500 mg Hydrocortisone (Hydrocortisone 1 % Ointment 28.35 Gm Tube) 1 appl TOPICAL BID PRN; Protocol PRN Reason: Hemorrhoids Last Admin: 11/03/22 14:49 Dose: 1 appl Hydroxyzine HCl (Hydroxyzine Hcl 25 Mg Tablet) 25 mg PO Q6H PRN PRN Reason: Anxiety Last Admin: 11/04/22 23:08 Dose: 25 mg Lactulose (Lactulose 20 Gm/30 Ml Solution) 20 gm PO BID OSCAR Last Admin: 11/05/22 14:17 Dose: 20 gm Loratadine (Loratadine 10 Mg Tablet) 10 mg PO DAILY PRN PRN Reason: nasal congestion Last Admin: 11/04/22 09:45 Dose: 10 mg Magnesium Hydroxide (Milk Of Magnesia 30 Ml Oral.Susp) 30 ml PO DAILY PRN PRN Reason: Constipation Melatonin (Melatonin 3 Mg Tablet) 6 mg PO BEDTIME PRN PRN Reason: sleep Last Admin: 11/04/22 23:08 Dose: 6 mg Naproxen (Naproxen 500 Mg Tablet) 500 mg PO Q12H PRN PRN Reason: mild pain, not tx with tylenol Last Admin: 11/01/22 00:18 Dose: 500 mg Olanzapine (Olanzapine 10 Mg Tablet) 20 mg PO BEDTIME OSCAR Last Admin: 11/04/22 21:19 Dose: 20 mg Olanzapine (Olanzapine 7.5 Mg Tablet) 15 mg PO DAILY@1600 [facility] Last Admin: 11/05/22 16:25 Dose: 15 mg Paliperidone (Paliperidone Er 6 Mg Tab.Er.24) 6 mg PO BEDTIME OSCAR Last Admin: 11/04/22 21:19 Dose: 6 mg Senna/Docusate Sodium (Sennosides/Docusate Sodium Tablet) 1 tab PO BEDTIME OSCAR Last Admin: 11/04/22 21:19 Dose: 1 tab Senna/Docusate Sodium (Sennosides/Docusate Sodium Tablet) 1 tab PO BID OSCAR Trazodone HCl (Trazodone Hcl 100 Mg Tablet) 100 mg PO BEDTIME [facility] Last Admin: 11/04/22 21:18 Dose: 100 mg Trazodone HCl (Trazodone Hcl 50 Mg Tablet) 50 mg PO BEDTIME PRN PRN Reason: continued insomnia Ziprasidone (Ziprasidone 20 Mg Capsule) 20 mg PO BID PRN PRN Reason: agitation Last Admin: 11/01/22 21:29 Dose: 20 mg Physical Exam Vital Signs and Narrative: Vital Signs: Last Vital Signs Temp 98.2 F 11/05/22 06:00 Pulse 62 11/05/22 06:00 Resp 16 11/05/22 06:00 BP 109/56 L 11/05/22 06:00 Pulse Ox 98 11/05/22 06:00 O2 Del Method 11/05/22 06:00 BMI result Body Mass Index 35.0 Constitutional - Awake and Alert, No apparent distress Eyes - PERRLA, EOMI Cardiovascular - S1S2, RRR Respiratory - Normal lung expansion, Normal respiratory effort, No respiratory distress, CTA bilaterally Gastrointestinal - NT / ND; +BS; No rebound or guarding Extremities - no calf tenderness bilaterally. Swelling ble with 1+ edema b/l feet and hands Musculoskeletal - Normal inspection, normal ROM Skin - Warm/Dry Neurological - Alert & oriented x3, CN II-XII in tact, 5/5 strength BUE and BLE Psychological - Appropriate affect Results Labs 11/02/22 14:26 Assessment and Plan (1) Routine medical exam: Status: Acute Plan 22 year old female with history of PTSD, suspected autism spectrum disorder, schizoaffective disorder, and intermittent explosive disorder admitted to psychiatry with consult placed to medicine for evaluation of swelling of the hands and feet bilaterally and shortness of breath. #Swelling hands/feet bilaterally -Likely secondary to psychiatric medication (depakote vs zyprexa). Medication management per psychiatry -Renal function and electrolytes normal. Hepatic function normal. -TSH slightly elevated at 4.33, free T4 normal- not likely contributory -Will evaluate venous duplex BLE -Will also check inflammatory markers, tick panel. CHARLES pending -BNP ordered, though given age and lack of risk factors, doubt heart failure #Shortness of breath -CXR ordered- suspect degree of obesity hypoventilation syndrome/atelectasis -Given BLE swelling and chest heaviness, D-Dimer ordered, Moderate risk PE per Wells criteria at 16.2% risk -Lungs CTA. Can use albuterol prn for intermittent sob/wheezing -Consider anxiety as possible contributing factor #Amenorrhea -Estradiol and FSH pending as ordered by psychiatry. Would recommend adding testosterone and DHEA levels -Will need outpt YARD SPOTTER follow up #Lightheadedness -Seems positional. Recommend orthostatic vitals -Could also be related to anxiety or psychiatric medications Thank you for this consult, will continue to follow for resutls. Time Spent With Patient Time: Total time managing care of this patient today ____ minutes.
--- NOTE | 2022-11-05 20:33 | PC.NURSE ---
This continuity writer read the imaging reports from [facility]ound [facility] Radiology. Chest x-ray and venous doppler study show no problems at this time. A repeat ultrasound (venous doppler) recommended for 5 or 7 days from today if symptoms persist.
[2022-11-05 21:30] VITALS: BP 108/58; PULSE 88
[2022-11-05] MEDS: Divalproex Sodium ER 500 MG TAB.ER.24H 3500 MG PO (21:42)
[2022-11-05] MEDS: Sennosides/Docusate Sodium TABLET 1 TAB PO ×2 (21:43)
[2022-11-05] MEDS: cloNIDine HCL 0.1 MG TABLET PO (21:43)
[2022-11-05] MEDS: OLANZapine 10 MG TABLET 20 MG PO (21:43)
[2022-11-05] MEDS: traZODone HCL 100 MG TABLET PO (21:43)
[2022-11-05] MEDS: Paliperidone ER 6 MG TAB.ER.24 PO (21:43)
[2022-11-05] MEDS: diphenhydrAMINE HCL 25 MG CAPSULE 50 MG PO (21:43)
[2022-11-05 22:26] LABS: D Dimer High Sensitivity < 150 NG/ML
[2022-11-05 22:38] LABS: C Reactive Protein < 0.04 mg/dL (< or = 0.50)
[2022-11-05 22:39] LABS: B Type Natriuretic Peptide 33 pg/mL (<100)
[2022-11-05 22:59] LABS: Erythrocyte Sedimentation Rate 3 MM/HR (0-20)
[2022-11-05 23:03] LABS: Vitamin B12 522 pg/mL (200-900)
[2022-11-05] MEDS: hydrOXYzine HCL 25 MG TABLET PO (23:54)
[2022-11-05] MEDS: Melatonin 3 MG TABLET 6 MG PO (23:54)
[2022-11-05] MEDS: ALPRAZolam 0.5 MG TABLET PO (23:55)
[2022-11-06] MEDS: Sennosides/Docusate Sodium TABLET 1 TAB PO ×3 (13:03→20:57)
[2022-11-06] MEDS: Lactulose 20 GM/30 ML SOLUTION PO (13:03)
[2022-11-06 13:41] VITALS: BP 112/76; PULSE 76; RESP 16; TEMP 36.7; O2SAT 96
[2022-11-06] MEDS: clonazePAM 1 MG TABLET PO ×3 (14:13→20:56)
[2022-11-06] MEDS: OLANZapine 7.5 MG TABLET 15 MG PO (15:43)
[2022-11-06] MEDS: Divalproex Sodium ER 500 MG TAB.ER.24H 3500 MG PO (20:55)
[2022-11-06] MEDS: traZODone HCL 100 MG TABLET PO (20:55)
[2022-11-06] MEDS: Paliperidone ER 6 MG TAB.ER.24 PO (20:56)
[2022-11-06] MEDS: OLANZapine 10 MG TABLET 20 MG PO (20:56)
[2022-11-06] MEDS: diphenhydrAMINE HCL 25 MG CAPSULE 50 MG PO (20:56)
[2022-11-06] MEDS: ALPRAZolam 0.5 MG TABLET PO (20:56)
[2022-11-06] MEDS: cloNIDine HCL 0.1 MG TABLET PO (20:57)
[2022-11-06 21:05] VITALS: BP 116/59; PULSE 94
[2022-11-06] MEDS: Magnesium Hydrox/Alum Hydrox 30 ML ORAL.SUSP PO (23:08)
[2022-11-06] MEDS: hydrOXYzine HCL 25 MG TABLET PO (23:09)
[2022-11-06] MEDS: Melatonin 3 MG TABLET 6 MG PO (23:09)
[2022-11-06] MEDS: Ziprasidone 20 MG CAPSULE PO (23:10)
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
[2022-11-07 08:53] LABS: DHEA Sulfate 52 mcg/dL (14-349)
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
--- NOTE | 2022-11-07 11:50 | PM.EVENT ---
Event Note Date of Service: 11/07/22 Event Note: Reviewed results of testing thusfar. CXR is negative for any acute cardiopulmonary abnormality. D-dimer is WNL and her vitals are reassuring and there is no hypoxia. No PE. Lungs were CTA on exam. She has no known history of chronic lung disease. Her BNP is negative and at 22 years old, she is very low risk to have any degree of heart failure. Would not recommend echocardiogram. I do not suspect underlying asthma at this time, but if patient feels she is wheezing, can continue albuterol prn and would recommend outpt pulmonary function testing. There is likely a degree of obesity hypoventilation syndrome which can cause shortness of breath/sensation of air hunger without any hypoxia or underlying pathology. I also suspect anxiety may be a contributing factor to her symptoms. Would recommend incentive spirometry and ongoing management of anxiety per psychiatry. Her swelling is likely related to medication (zyprexa vs depakote) as well as a dependent edema secondary to inactivity and obesity. Her renal function is normal. There is no evidence to suggest heart failure as above. DVT studies negative. Nonspecific inflammatory markers negative. CHARLES and tick panel pending though low suspicion that these will show significant results. If CHARLES positive with significant titer, can refer to rheumtology but this is a nonspecific finding with many people carrying positive antibody in healthy people. At this time, would encourage ambulation and can use compression stockings. Medication adjustment per psychiatry. Recommended orthostatic vital signs which should be performed for any persistent lightheadedness. Outpt follow up with FIELD OPERATIONS COORDINATOR advised for amenorrhea. Thank you for allowing me to participate in this consult. Signing off at this time. Please do not hesitate to call for further questions. Time Spent With Patient Time: Total time managing care of this patient today ____ minutes.
[2022-11-07] MEDS: Sennosides/Docusate Sodium TABLET 1 TAB PO ×2 (12:12→21:29)
[2022-11-07] MEDS: Lactulose 20 GM/30 ML SOLUTION PO ×2 (12:14→21:29)
[2022-11-07 13:10] VITALS: BP 109/55; PULSE 90; RESP 16; TEMP 36.8; O2SAT 98
[2022-11-07 13:29] LABS: Lyme Abs Screen <0.90 index
[2022-11-07] MEDS: clonazePAM 1 MG TABLET PO ×3 (14:11→21:27)
[2022-11-07] MEDS: OLANZapine 7.5 MG TABLET 15 MG PO (16:29)
[2022-11-07 18:00] VITALS: BP 109/71; PULSE 97; TEMP 36.2; O2SAT 97
[2022-11-07] MEDS: diphenhydrAMINE HCL 25 MG CAPSULE 50 MG PO (21:27)
[2022-11-07] MEDS: cloNIDine HCL 0.1 MG TABLET PO (21:27)
[2022-11-07] MEDS: Divalproex Sodium ER 500 MG TAB.ER.24H 3500 MG PO (21:28)
[2022-11-07] MEDS: OLANZapine 10 MG TABLET 20 MG PO (21:29)
[2022-11-07] MEDS: Paliperidone ER 6 MG TAB.ER.24 PO (21:29)
[2022-11-07] MEDS: traZODone HCL 100 MG TABLET PO (21:31)
[2022-11-07] MEDS: ALPRAZolam 0.5 MG TABLET PO (23:21)
[2022-11-07] MEDS: hydrOXYzine HCL 25 MG TABLET PO (23:21)
[2022-11-07] MEDS: Melatonin 3 MG TABLET 6 MG PO (23:21)
[2022-11-08 06:00] VITALS: BP 111/56; PULSE 92; RESP 16; TEMP 36.7; O2SAT 97
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
[2022-11-08] MEDS: Lactulose 20 GM/30 ML SOLUTION PO ×2 (11:15→19:50)
[2022-11-08] MEDS: Sennosides/Docusate Sodium TABLET 1 TAB PO ×2 (11:15→19:52)
[2022-11-08] MEDS: Loratadine 10 MG TABLET PO (11:15)
[2022-11-08 12:13] LABS: Anti Nuclear Antibody Pattern Nuclear, Centromere; Anti Nuclear Antibody Screen POSITIVE (NEGATIVE)
[2022-11-08] MEDS: OLANZapine 7.5 MG TABLET 15 MG PO (14:15)
[2022-11-08] MEDS: clonazePAM 1 MG TABLET PO ×3 (14:15→20:32)
[2022-11-08 18:00] VITALS: BP 126/82; PULSE 75; RESP 16; TEMP 36.6; O2SAT 98
[2022-11-08] MEDS: diphenhydrAMINE HCL 25 MG CAPSULE 50 MG PO (19:51)
[2022-11-08] MEDS: Divalproex Sodium ER 500 MG TAB.ER.24H 3500 MG PO (19:51)
[2022-11-08] MEDS: OLANZapine 10 MG TABLET 20 MG PO (19:51)
[2022-11-08] MEDS: traZODone HCL 100 MG TABLET PO (19:52)
[2022-11-08] MEDS: Famotidine 20 MG TABLET PO (19:52)
[2022-11-08] MEDS: Paliperidone ER 6 MG TAB.ER.24 PO (19:53)
[2022-11-08] MEDS: cloNIDine HCL 0.1 MG TABLET PO (19:53)
[2022-11-08] MEDS: hydrOXYzine HCL 25 MG TABLET PO (23:07)
[2022-11-08] MEDS: Melatonin 3 MG TABLET 6 MG PO (23:07)
[2022-11-08] MEDS: ALPRAZolam 0.5 MG TABLET PO (23:07)
[2022-11-09] MEDS: Sennosides/Docusate Sodium TABLET 1 TAB PO ×2 (10:24→21:08)
[2022-11-09] MEDS: Lactulose 20 GM/30 ML SOLUTION PO ×2 (10:24→21:07)
[2022-11-09 10:29] VITALS: BP 94/61; PULSE 93; RESP 18; TEMP 36.3; O2SAT 96
[2022-11-09] MEDS: clonazePAM 1 MG TABLET PO ×3 (13:54→21:31)
[2022-11-09] MEDS: Loratadine 10 MG TABLET PO (14:02)
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
[2022-11-09] MEDS: Albuterol Sulfate 90 MCG 8 GM INHALER 2 PUFF INHALE (15:00)
[2022-11-09] MEDS: Acetaminophen 325 MG TABLET 650 MG PO (15:15)
--- NOTE | 2022-11-09 15:39 | PC.NURSE ---
Patient yelled out in pain in shower because of bilateral lower leg edema. Gave tylenol and notified .
[2022-11-09] MEDS: OLANZapine 7.5 MG TABLET 15 MG PO (15:53)
[2022-11-09 18:00] VITALS: BP 109/68; PULSE 96; RESP 16; TEMP 35.9; O2SAT 98
[2022-11-09] MEDS: OLANZapine 10 MG TABLET 20 MG PO (21:07)
[2022-11-09] MEDS: diphenhydrAMINE HCL 25 MG CAPSULE 50 MG PO (21:07)
[2022-11-09] MEDS: Famotidine 20 MG TABLET PO (21:08)
[2022-11-09] MEDS: Divalproex Sodium ER 500 MG TAB.ER.24H 3500 MG PO (21:08)
[2022-11-09] MEDS: cloNIDine HCL 0.1 MG TABLET PO (21:09)
[2022-11-09] MEDS: Paliperidone ER 6 MG TAB.ER.24 PO (21:09)
[2022-11-09] MEDS: traZODone HCL 100 MG TABLET PO (21:09)
[2022-11-09] MEDS: hydrOXYzine HCL 25 MG TABLET PO (21:31)
[2022-11-09] MEDS: ALPRAZolam 0.5 MG TABLET PO (21:31)
[2022-11-09] MEDS: Melatonin 3 MG TABLET 6 MG PO (21:32)
[2022-11-10] MEDS: Sennosides/Docusate Sodium TABLET 1 TAB PO ×3 (11:52→20:38)
[2022-11-10] MEDS: Lactulose 20 GM/30 ML SOLUTION PO ×2 (11:52→20:48)
[2022-11-10 11:55] VITALS: BP 97/56; PULSE 67; RESP 16; TEMP 36.8; O2SAT 95
[2022-11-10] MEDS: clonazePAM 1 MG TABLET PO ×3 (13:41→21:04)
[2022-11-10] MEDS: OLANZapine 7.5 MG TABLET 15 MG PO (16:32)
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
[2022-11-10] MEDS: Ziprasidone 20 MG CAPSULE PO (19:06)
[2022-11-10] MEDS: Ziprasidone Mesylate 20 MG VIAL IM (19:55)
[2022-11-10 20:15] VITALS: BP 118/63; PULSE 92; TEMP 36.4
[2022-11-10] MEDS: traZODone HCL 100 MG TABLET PO (20:36)
[2022-11-10] MEDS: Divalproex Sodium ER 500 MG TAB.ER.24H 3500 MG PO (20:36)
[2022-11-10] MEDS: diphenhydrAMINE HCL 25 MG CAPSULE 50 MG PO (20:36)
[2022-11-10] MEDS: Famotidine 20 MG TABLET PO (20:37)
[2022-11-10] MEDS: cloNIDine HCL 0.1 MG TABLET PO (20:38)
[2022-11-10] MEDS: OLANZapine 10 MG TABLET 20 MG PO (20:38)
[2022-11-10] MEDS: Paliperidone ER 6 MG TAB.ER.24 PO (20:38)
[2022-11-10] MEDS: ALPRAZolam 0.5 MG TABLET PO (23:12)
[2022-11-10] MEDS: traZODone HCL 50 MG TABLET PO (23:19)
[2022-11-10] MEDS: Melatonin 3 MG TABLET 6 MG PO (23:19)
--- NOTE | 2022-11-11 00:34 | PC.NURSE ---
Pt was in bed napping for most of shift but became agitated without any apparent precipitant. Pt was offered/given PRN Geodon 20mg PO at 1906. Within minutes pt became increasingly agitated, screaming I want an IM . Pt was slamming doors and punching zamora. Pt was offered a quiet area to de-escalate in group room B, staff offered a snack, listened to pt and let her vent her emotions. Pt left the group room and continued to punch zamora and began punching glass windows in the kitchen. Pt returned to group room B and began to punch and pull on the housing that attaches the TV to the wall. Security was called, but there was no answer at security office phone. A code assist was called. The OnCall provider was notified and orders were obtained for a medication restraint. This manual writer sought orders additionally for a mechanical chair restraint as pt was struggling with security and other staff on the floor. The mechanical chair restraint was initiated at 1944 and Geodon 20mg IM was given in left deltoid as a medication restraint at 1954. Vital signs were stable throughout the intervention; pt struggled and remained agitated for about the first five minutes and began to relax. Pt was offered cold water but refused. At 2004, pt was informed that staff were waiting for the medication to start helping before removing restraints and staff began a plan with pt to begin to remove restraints as she was calmed. Pt continued to remain calm; pt's feet were released at 2016 and pt's hands were released from restraints at 2021. This manual writer spoke with pt about how staff could help pt feel more safe; pt expressed she would like staff to sit with her when she is falling asleep. This manual writer monitored pt throughout most of intervention, administered her HS medications and sat with her as she settled in to sleep. At that time This manual writer remembered that the hospitalist needed to see the pt; hospitalist was notified and checked on pt at 2200. Pt's family was not notified of the restraint as per Safety Tool completed on admission.
[2022-11-11 06:09] LABS: Estradiol Free 0.42 pg/mL; Estradiol, Ultrasensitive 19 pg/mL
[2022-11-11 10:15] VITALS: BP 108/69; PULSE 78; RESP 16; TEMP 36.7; O2SAT 96
[2022-11-11] MEDS: Sennosides/Docusate Sodium TABLET 1 TAB PO ×3 (10:18→21:11)
[2022-11-11] MEDS: Lactulose 20 GM/30 ML SOLUTION PO ×2 (10:18→21:13)
[2022-11-11] MEDS: Loratadine 10 MG TABLET PO (11:00)
[2022-11-11] MEDS: OLANZapine 7.5 MG TABLET 15 MG PO (16:49)
[2022-11-11] MEDS: clonazePAM 1 MG TABLET PO ×2 (17:59→21:12)
[2022-11-11] MEDS: NaPROXEN 500 MG TABLET PO (18:35)
[2022-11-11] MEDS: Ziprasidone 20 MG CAPSULE PO (18:44)
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
[2022-11-11 21:10] VITALS: BP 111/69; PULSE 91; TEMP 36.1
[2022-11-11] MEDS: diphenhydrAMINE HCL 25 MG CAPSULE 50 MG PO (21:11)
[2022-11-11] MEDS: Divalproex Sodium ER 500 MG TAB.ER.24H 3500 MG PO (21:12)
[2022-11-11] MEDS: Famotidine 20 MG TABLET PO (21:12)
[2022-11-11] MEDS: traZODone HCL 100 MG TABLET PO (21:12)
[2022-11-11] MEDS: OLANZapine 10 MG TABLET 20 MG PO (21:12)
[2022-11-11] MEDS: Paliperidone ER 6 MG TAB.ER.24 PO (21:12)
[2022-11-11] MEDS: cloNIDine HCL 0.1 MG TABLET PO (21:13)
[2022-11-11] MEDS: Magnesium Hydrox/Alum Hydrox 30 ML ORAL.SUSP PO (21:47)
[2022-11-12] MEDS: Melatonin 3 MG TABLET 6 MG PO (00:38)
[2022-11-12] MEDS: Ziprasidone 20 MG CAPSULE PO (00:38)
[2022-11-12] MEDS: traZODone HCL 50 MG TABLET PO (00:38)
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
[2022-11-12 11:48] LABS: Testosterone, Free 2.3 pg/mL (0.1-6.4); Testosterone, Total 19 ng/dL (2-45)
[2022-11-12] MEDS: clonazePAM 1 MG TABLET PO ×3 (13:44→20:40)
[2022-11-12] MEDS: Sennosides/Docusate Sodium TABLET 1 TAB PO ×3 (13:44→20:39)
[2022-11-12] MEDS: Lactulose 20 GM/30 ML SOLUTION PO ×2 (13:47→20:42)
[2022-11-12] MEDS: Loratadine 10 MG TABLET PO (13:47)
[2022-11-12 14:03] VITALS: BP 129/84; PULSE 88; RESP 18; TEMP 36.4; O2SAT 97
[2022-11-12] MEDS: OLANZapine 7.5 MG TABLET 15 MG PO (16:34)
[2022-11-12] MEDS: NaPROXEN 500 MG TABLET PO (16:39)
[2022-11-12 19:50] VITALS: BP 127/60; PULSE 96; TEMP 35.9
[2022-11-12] MEDS: Divalproex Sodium ER 500 MG TAB.ER.24H 3500 MG PO (20:37)
[2022-11-12] MEDS: cloNIDine HCL 0.1 MG TABLET PO (20:38)
[2022-11-12] MEDS: Paliperidone ER 6 MG TAB.ER.24 PO (20:38)
[2022-11-12] MEDS: Famotidine 20 MG TABLET PO (20:39)
[2022-11-12] MEDS: traZODone HCL 100 MG TABLET PO (20:40)
[2022-11-12] MEDS: diphenhydrAMINE HCL 25 MG CAPSULE 50 MG PO (20:40)
[2022-11-12] MEDS: Acetaminophen 325 MG TABLET 650 MG PO (20:41)
[2022-11-12] MEDS: OLANZapine 10 MG TABLET 20 MG PO (20:41)
[2022-11-13 12:09] VITALS: BP 119/73; PULSE 102; RESP 20; TEMP 36.2; O2SAT 96
[2022-11-13] MEDS: Sennosides/Docusate Sodium TABLET 1 TAB PO ×3 (12:13→22:39)
[2022-11-13] MEDS: Lactulose 20 GM/30 ML SOLUTION PO ×2 (12:15→21:39)
[2022-11-13 14:00] VITALS: BMI 35.4
[2022-11-13 15:17] LABS: Ammonia 57 umol/L (13-55)
[2022-11-13 15:28] LABS: Alanine Aminotransferase 8 U/L (0-31); Albumin Level 3.8 g/dL (3.5-5.0); Alkaline Phosphatase 45 U/L (39-117); Aspartate Amino Transferase 26 U/L (5-31); Bilirubin Direct < 0.2 mg/dL (0.0-0.5); Bilirubin Total 0.2 mg/dL (0.0-1.0); Total Protein 6.8 g/dL (6.5-8.0)
[2022-11-13 15:37] LABS: Valproate 116.2 mcg/mL (50.0-100.0)
[2022-11-13] MEDS: clonazePAM 1 MG TABLET PO ×3 (15:47→21:49)
[2022-11-13] MEDS: OLANZapine 7.5 MG TABLET 15 MG PO (15:47)
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
--- NOTE | 2022-11-13 17:33 | PC.NURSE ---
Pharmacy notified that patient's Depakote ER 3,500 to be held tonight.
[2022-11-13 21:35] VITALS: BP 124/72; PULSE 104; TEMP 36.3; O2SAT 96
[2022-11-13] MEDS: OLANZapine 10 MG TABLET 20 MG PO (21:35)
[2022-11-13] MEDS: diphenhydrAMINE HCL 25 MG CAPSULE 50 MG PO (21:36)
[2022-11-13] MEDS: traZODone HCL 100 MG TABLET PO (21:38)
[2022-11-13] MEDS: Famotidine 20 MG TABLET PO (21:38)
[2022-11-13] MEDS: cloNIDine HCL 0.1 MG TABLET PO (21:38)
[2022-11-13] MEDS: Paliperidone ER 6 MG TAB.ER.24 PO (21:38)
[2022-11-14] MEDS: Melatonin 3 MG TABLET 6 MG PO (01:36)
[2022-11-14] MEDS: ALPRAZolam 0.5 MG TABLET PO (01:37)
[2022-11-14] MEDS: hydrOXYzine HCL 25 MG TABLET PO (01:38)
[2022-11-14 08:51] VITALS: BP 91/54; PULSE 63; RESP 16; TEMP 36.2; O2SAT 96
[2022-11-14] MEDS: Sennosides/Docusate Sodium TABLET 1 TAB PO ×3 (09:00→22:13)
[2022-11-14] MEDS: Lactulose 20 GM/30 ML SOLUTION PO ×2 (09:00→22:09)
[2022-11-14] MEDS: NaPROXEN 500 MG TABLET PO (09:26)
--- NOTE | 2022-11-14 10:43 | PFT_ITS ---
INDICATION: Asthma. SPIROMETRY: FEV1 to FVC of 85% with an FEV1 of 2.90 L, which is 72% predicted and FVC of 3.42 L which is 73% predicted. No significant response to bronchodilators noted. Maximum voluntary ventilation 64% predicted. LUNG VOLUMES: Total lung capacity 71% predicted, expiratory residual volume could not be calculated and not available. DIFFUSION CAPACITY: DLCO 72% predicted. COMPARISONS: None. INTERPRETATION: No obstructive ventilatory defects. No significant response to bronchodilators noted. The patient does have a moderate decrease in maximum voluntary ventilation, which could be secondary to deconditioning, although cannot rule out neuromuscular conditions. The patient also has restrictive ventilatory defect consistent with mild restrictive lung disease. Again, neuromuscular conditions, parenchymal lung conditions cannot be ruled out. Patient also has a mild diffusion impairment but this corrects to normal and correcting for the alveolar volume. To some degree the changes may be due to an elevated BMI. Clinical correlation warranted. MD JIGNESH Waterman/MODFranki / [id number]
[2022-11-14 10:53] LABS: Babesia IgG <1:64 titer (<1:64); Babesia IgM <1:20 titer (<1:20)
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
[2022-11-14] MEDS: clonazePAM 1 MG TABLET PO ×3 (13:29→22:14)
[2022-11-14 14:00] VITALS: BMI 35.6
[2022-11-14 15:04] LABS: A. Phagocytophilum Ab IgG <1:64 (<1:64); A. Phagocytophilum Ab IgM <1:20 (<1:20); E. Chaffeensis Ab IgG <1:64 (<1:64); E. Chaffeensis Ab IgM <1:20 (<1:20)
[2022-11-14] MEDS: OLANZapine 7.5 MG TABLET 15 MG PO (16:49)
[2022-11-14] MEDS: Acetaminophen 325 MG TABLET 650 MG PO (18:01)
[2022-11-14 21:50] VITALS: BP 110/69; PULSE 94; TEMP 35.8
[2022-11-14] MEDS: Divalproex Sodium ER 500 MG TAB.ER.24H 2500 MG PO (22:09)
[2022-11-14] MEDS: OLANZapine 10 MG TABLET 20 MG PO (22:10)
[2022-11-14] MEDS: Multivitamin TABLET 1 TAB PO (22:11)
[2022-11-14] MEDS: traZODone HCL 100 MG TABLET PO (22:11)
[2022-11-14] MEDS: Paliperidone ER 6 MG TAB.ER.24 PO (22:11)
[2022-11-14] MEDS: cloNIDine HCL 0.1 MG TABLET PO (22:12)
[2022-11-14] MEDS: diphenhydrAMINE HCL 25 MG CAPSULE 50 MG PO (22:12)
[2022-11-14] MEDS: Famotidine 20 MG TABLET PO (22:14)
[2022-11-15 08:36] VITALS: BP 120/67; PULSE 74; RESP 16; TEMP 36.6; O2SAT 95
[2022-11-15] MEDS: Sennosides/Docusate Sodium TABLET 1 TAB PO ×2 (08:45→21:10)
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
[2022-11-15] MEDS: clonazePAM 1 MG TABLET PO ×3 (13:14→21:10)
[2022-11-15 13:29] VITALS: BMI 35.6
[2022-11-15] MEDS: OLANZapine 7.5 MG TABLET 15 MG PO (16:38)
[2022-11-15] MEDS: NaPROXEN 500 MG TABLET PO (17:25)
[2022-11-15 17:45] VITALS: BP 107/63; PULSE 100; RESP 15; TEMP 36.4; O2SAT 95
[2022-11-15] MEDS: diphenhydrAMINE HCL 25 MG CAPSULE 50 MG PO (21:09)
[2022-11-15] MEDS: traZODone HCL 100 MG TABLET PO (21:09)
[2022-11-15] MEDS: Paliperidone ER 6 MG TAB.ER.24 PO (21:09)
[2022-11-15] MEDS: Divalproex Sodium ER 500 MG TAB.ER.24H 2500 MG PO (21:09)
[2022-11-15] MEDS: Famotidine 20 MG TABLET PO (21:10)
[2022-11-15] MEDS: OLANZapine 10 MG TABLET 20 MG PO (21:10)
[2022-11-15] MEDS: Multivitamin TABLET 1 TAB PO (21:10)
[2022-11-15] MEDS: Lactulose 20 GM/30 ML SOLUTION PO (21:11)
[2022-11-15] MEDS: cloNIDine HCL 0.1 MG TABLET PO (21:11)
[2022-11-16] MEDS: Sennosides/Docusate Sodium TABLET 1 TAB PO ×3 (09:18→20:52)
[2022-11-16 09:31] VITALS: BP 118/58; PULSE 86; RESP 16; TEMP 36.1; O2SAT 92
--- NOTE | 2022-11-16 10:16 | P.PNPSI_ITS ---
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 Patient Time: Total time managing care of this patient today ____ minutes.
[2022-11-16] MEDS: clonazePAM 1 MG TABLET PO ×3 (13:25→20:52)
[2022-11-16 14:00] VITALS: BMI 35.6
[2022-11-16] MEDS: OLANZapine 7.5 MG TABLET 15 MG PO (16:16)
[2022-11-16 18:00] VITALS: BP 129/68; PULSE 82; RESP 16; TEMP 36.4; O2SAT 98
[2022-11-16] MEDS: NaPROXEN 500 MG TABLET PO (18:26)
[2022-11-16] MEDS: diphenhydrAMINE HCL 25 MG CAPSULE 50 MG PO (20:51)
[2022-11-16] MEDS: Paliperidone ER 6 MG TAB.ER.24 PO (20:51)
[2022-11-16] MEDS: Divalproex Sodium ER 500 MG TAB.ER.24H 2500 MG PO (20:51)
[2022-11-16] MEDS: OLANZapine 10 MG TABLET 20 MG PO (20:52)
[2022-11-16] MEDS: Multivitamin TABLET 1 TAB PO (20:52)
[2022-11-16] MEDS: cloNIDine HCL 0.1 MG TABLET PO (20:52)
[2022-11-16] MEDS: Famotidine 20 MG TABLET PO (20:52)
[2022-11-16] MEDS: traZODone HCL 100 MG TABLET PO (20:52)
--- NOTE | 2022-11-16 22:33 | PC.NURSE ---
Pt is agitated and requested for IM Geodone. call center operations manager provider notified. stat order for IM Geodone given; well tolerated with positive effect.
[2022-11-16] MEDS: Ziprasidone Mesylate 20 MG VIAL IM (22:44)
[2022-11-16] MEDS: hydrOXYzine HCL 25 MG TABLET PO (23:33)
[2022-11-16] MEDS: ALPRAZolam 0.5 MG TABLET PO (23:33)
[2022-11-16] MEDS: Melatonin 3 MG TABLET 6 MG PO (23:35)
--- NOTE | 2022-11-17 | ECG_ITS ---
Test Reason : check rhythm Blood Pressure : / mmHG Vent. Rate : 095 BPM Atrial Rate : 095 BPM P-R Int : 110 ms QRS Dur : 084 ms QT Int : 362 ms P-R-T Axes : 000 147 148 degrees QTc Int : 454 ms Sinus rhythm with short SD Right axis deviation Nonspecific T wave abnormality Abnormal ECG When compared with ECG of 15-OCT-2022 15:07, Nonspecific T wave abnormality now evident in Inferior leads Referred By: Darci Dela Cruz Electronically Signed By:MADISON ROBERTS
--- NOTE | 2022-11-17 11:20 | HO.PSYCHPN ---
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 night last night and got dysregulated however doing ok today. labs drawn to assess amenorrhea Labs drawn to assess depakote level, lfts, ammonia check HBA1C: WNL increased trazodone to 100mg and added clonidine 0.1mg qhs for hard time sleeping Patient educated on: diagnosis, medication risk/benefits and therapeutic strategies Guardian/Caregiver educated on: medication risk/benefits and medical condition Informed Consent: understands Reason for contiued inpatient stay Substantial Risk for: harm to self, harm to others, inability to function and rapid decompensation Time Spent With Patient Time: Total time managing care of this patient today ____ minutes.
[2022-11-17] MEDS: clonazePAM 1 MG TABLET PO ×3 (13:47→21:21)
[2022-11-17] MEDS: Sennosides/Docusate Sodium TABLET 1 TAB PO ×3 (13:47→22:20)
[2022-11-17] MEDS: Lactulose 20 GM/30 ML SOLUTION PO (13:47)
[2022-11-17] MEDS: OLANZapine 7.5 MG TABLET 15 MG PO (16:22)
[2022-11-17] MEDS: Loratadine 10 MG TABLET PO (16:32)
[2022-11-17 18:00] VITALS: BP 115/58; PULSE 98; TEMP 36.8; O2SAT 98
[2022-11-17] MEDS: NaPROXEN 500 MG TABLET PO (18:57)
[2022-11-17 19:51] VITALS: BMI 36.3
[2022-11-17] MEDS: Ziprasidone 20 MG CAPSULE PO (20:19)
[2022-11-17] MEDS: Ziprasidone Mesylate 20 MG VIAL IM (21:10)
[2022-11-17] MEDS: cloNIDine HCL 0.1 MG TABLET PO (21:21)
[2022-11-17] MEDS: Paliperidone ER 6 MG TAB.ER.24 PO (21:21)
[2022-11-17] MEDS: Divalproex Sodium ER 500 MG TAB.ER.24H 2500 MG PO (21:21)
[2022-11-17] MEDS: diphenhydrAMINE HCL 25 MG CAPSULE 50 MG PO (21:21)
[2022-11-17] MEDS: traZODone HCL 100 MG TABLET PO (21:21)
[2022-11-17] MEDS: Multivitamin TABLET 1 TAB PO (21:22)
[2022-11-17] MEDS: OLANZapine 10 MG TABLET 20 MG PO (21:22)
[2022-11-17] MEDS: Famotidine 20 MG TABLET PO (21:23)
--- NOTE | 2022-11-17 21:25 | PM.CNPUL ---
History of Present Illness History of Present Illness Consult date: 11/17/22 Chief complaint: Schizoaffective Narrative: [facility] [address] [place] [address] Hospitalist Consult Note Signed Patient: Marilynn Colvin MR#: [id number] : 2000 Acct:[id number] Age/Sex: 22 / F Loc: This is an in-patient pulmonary consultation. The patient is a 22 year old female with history of PTSD, suspected autism spectrum disorder, schizoaffective disorder, and intermittent explosive disorder admitted to psychiatry with consult placed to medicine for evaluation of swelling of the hands and feet bilaterally and shortness of breath. The patient is a poor historian. She was sleepy while the evaluation. Therefore, most of the information was obtained from the chart The patient had been living in a [facility] facility in [place] for 5 years before arrival to our ED with subsequent admission. Apparently has been experiencing swelling of the hands/feet b/l for sometime. She states there is only pain in the lower extremities with prolonged standing, such as when showering. She also describes a chest tightness and shortness of breath. She also describes feeling crackles. She does not have history of asthma. She had bloodwork upon admission including a negative ddimer. Her CHARLES was elevated. CXR personally reviewed by me was without any acute disease. Review of Systems Review of Systems: General: No fevers, sleepy HEENT: No blurred vision, diplopia. No sore throat, nasal congestion, rhinorrhea, sinus pain, ear pain Cardiovascular: -chest pain, ble and b/l hand swelling. No palpitations Respiratory: -shortness of breath, +ARNOLD, -cough. No wheezing, cough GI: No abdominal pain, nausea, vomiting, diarrhea, constipation, melena, hematochezia : No dysuria, hematuria, increased urinary frequency, decreased urinary output MSK: No myalgia, back pain Neuro: No headaches, weakness, paresthesias Skin: No rashes or lesions PMFSH Past Medical History Medical History (Updated 11/17/22 @ 21:39 by Royce Melchor MD) Amenorrhea CHARLES positive Autism Chronic restrictive lung disease Dyspnea Has daytime drowsiness Homicidal behavior Peripheral edema PTSD (post-traumatic stress disorder) Schizoaffective disorder Suicidal behavior Social History Social History Household Members: Family Housing: House Do you presently have visiting nurse or other home services: No Alcohol intake: never Patient Tobacco Use Status: Never used Tobacco Use of substances other than those prescribed or required for medical reasons: No Currently Displaying Signs/Symptoms of Drug Intoxication Withdrawal: No Have you been hit, kicked, punched, or otherwise hurt by someone within the past year? If so, by whom?: No Do you feel safe in your current relationship?: No Current Relationship Is there a partner from a previous relationship who is making you feel unsafe now?: No Are you made to feel afraid or neglected: No Advance Directives: No Advance Directives Information Provided: Yes Do you have thoughts of harming others: None Do you have a plan to hurt others: No Plan Recently lost weight without trying: No How much weight loss: Not applicable Eating poorly because of decreased appetite: No Nutrition screen score: 0 Nutrition Risks: No Nutritional Risk Patient : No : No Poor oral hygiene: No service: No Sexual orientation: Did not discuss Meds Allergies Allergy/AdvReac Type Severity Reaction Status Date / Time chlorpromazine Allergy Anaphylaxis Verified 09/29/22 18:48 [From Thorazine] nut - unspecified Allergy Anxiety Verified 09/29/22 21:28 haloperidol [From Haldol] AdvReac Agitated Verified 09/29/22 19:27 lithium AdvReac Hives Verified 09/29/22 21:28 Active Medications: Current Medications Acetaminophen (Acetaminophen 325 Mg Tablet) 650 mg PO Q6H PRN PRN Reason: Headache/Pain Mild Scale (1-3) Last Admin: 11/14/22 18:01 Dose: 650 mg Al Hydroxide/Mg Hydroxide (Magnesium Hydrox/Alum Hydrox 30 Ml Oral.Susp) 30 ml PO Q6H PRN PRN Reason: Heartburn/Nausea Last Admin: 11/11/22 21:47 Dose: 30 ml Albuterol Sulfate (Albuterol Sulfate 90 Mcg 8 Gm Inhaler) 2 puff INHALE RQ4H PRN PRN Reason: Shortness of Breath Last Admin: 11/09/22 15:00 Dose: 2 puff Alprazolam (Alprazolam 0.5 Mg Tablet) 0.5 mg PO TID PRN PRN Reason: Anxiety Last Admin: 11/16/22 23:33 Dose: 0.5 mg Clonazepam (Clonazepam 1 Mg Tablet) 1 mg PO TID@1400,1700,2000 OSCAR Last Admin: 11/17/22 16:22 Dose: 1 mg Clonidine HCl (Clonidine Hcl 0.1 Mg Tablet) 0.1 mg PO BEDTIME OSCAR; Protocol Last Admin: 11/16/22 20:52 Dose: 0.1 mg Diphenhydramine HCl (Diphenhydramine Hcl 25 Mg Capsule) 50 mg PO BEDTIME OSCAR Last Admin: 11/16/22 20:51 Dose: 50 mg Divalproex Sodium (Divalproex Sodium Er 500 Mg Tab.Er.24h) 2,500 mg PO BEDTIME OSCAR Last Admin: 11/16/22 20:51 Dose: 2,500 mg Famotidine (Famotidine 20 Mg Tablet) 20 mg PO BEDTIME OSCAR Last Admin: 11/16/22 20:52 Dose: 20 mg Hydrocortisone (Hydrocortisone 1 % Ointment 28.35 Gm Tube) 1 appl TOPICAL BID PRN; Protocol PRN Reason: Hemorrhoids Last Admin: 11/03/22 14:49 Dose: 1 appl Hydroxyzine HCl (Hydroxyzine Hcl 25 Mg Tablet) 25 mg PO Q6H PRN PRN Reason: Anxiety Last Admin: 11/16/22 23:33 Dose: 25 mg Lactulose (Lactulose 20 Gm/30 Ml Solution) 20 gm PO BID SOCAR Last Admin: 11/17/22 13:47 Dose: 20 gm Loratadine (Loratadine 10 Mg Tablet) 10 mg PO DAILY PRN PRN Reason: nasal congestion Last Admin: 11/17/22 16:32 Dose: 10 mg Magnesium Hydroxide (Milk Of Magnesia 30 Ml Oral.Susp) 30 ml PO DAILY PRN PRN Reason: Constipation Melatonin (Melatonin 3 Mg Tablet) 6 mg PO BEDTIME PRN PRN Reason: sleep Last Admin: 11/16/22 23:35 Dose: 6 mg Multi-Ingred Cream/Lotion/Oil/Oint (Mineral Oil/Petrolatum,White 106 Gm Tube) 1 appl TOPICAL BID OSCAR; Protocol Multivitamins/Vitamin C (Multivitamin Tablet) 1 tab PO BEDTIME OSCAR Last Admin: 11/16/22 20:52 Dose: 1 tab Naproxen (Naproxen 500 Mg Tablet) 500 mg PO Q12H PRN PRN Reason: mild pain, not tx with tylenol Last Admin: 11/17/22 18:57 Dose: 500 mg Olanzapine (Olanzapine 10 Mg Tablet) 20 mg PO BEDTIME [facility] Last Admin: 11/16/22 20:52 Dose: 20 mg Olanzapine (Olanzapine 7.5 Mg Tablet) 15 mg PO DAILY@1600 [facility] Last Admin: 11/17/22 16:22 Dose: 15 mg Paliperidone (Paliperidone Er 6 Mg Tab.Er.24) 6 mg PO BEDTIME [facility] Last Admin: 11/16/22 20:51 Dose: 6 mg Senna/Docusate Sodium (Sennosides/Docusate Sodium Tablet) 1 tab PO BEDTIME [facility] Last Admin: 11/16/22 20:52 Dose: 1 tab Senna/Docusate Sodium (Sennosides/Docusate Sodium Tablet) 1 tab PO BID [facility] Last Admin: 11/17/22 13:47 Dose: 1 tab Sodium Chloride (Sodium Chloride 0.65 % Nasal 44 Ml Sprbtl) 1 spray NOSTRIL-B Q1H PRN PRN Reason: Dryness Trazodone HCl (Trazodone Hcl 100 Mg Tablet) 100 mg PO BEDTIME [facility] Last Admin: 11/16/22 20:52 Dose: 100 mg Trazodone HCl (Trazodone Hcl 50 Mg Tablet) 50 mg PO BEDTIME PRN PRN Reason: continued insomnia Last Admin: 11/12/22 00:38 Dose: 50 mg Ziprasidone (Ziprasidone 20 Mg Capsule) 20 mg PO BID PRN PRN Reason: agitation Last Admin: 11/17/22 20:19 Dose: 20 mg Physical Exam Vital Signs: Vital Signs: Last Vital Signs Temp 98.2 F 11/17/22 18:00 Pulse 98 11/17/22 18:00 Resp 16 11/16/22 18:00 BP 115/58 L 11/17/22 18:00 Pulse Ox 98 11/17/22 18:00 O2 Del Method 11/17/22 18:00 BMI result Body Mass Index 36.3 Const: General: comfortable and tired appearing HEENT: Head: Yes normocephalic Eyes: General: appearance normal, both eyes and all related structures Neck: Neck: Yes supple Chest: Chest palpation & inspection: normal inspection of the chest Resp: Effort & Inspection: normal respiratory effort Auscultation: no crackles, no rales, no rhonchi, no wheezes and diminished lung sounds Cardio: Rhythm: regular rhythm Heart sounds: S1 normal heart sound present and S2 normal heart sound present GI: Auscultation: normal bowel sounds Skin: General skin exam: no rashes or lesions noted Extrem: General: No clubbing and No cyanosis Results Laboratory Findings 11/02/22 14:26 Abnormal lab findings: Abnormal Labs 10/13/22 11/02/22 11/02/22 20:09 14:26 14:26 BUN 29 H Ammonia 82 H TSH 4.33 H Ur Leukocyte Esterase Small (1+) H Urine WBC 11-20 H Valproic Acid CHARLES Screen CHARLES Titer CHARLES Pattern 11/03/22 11/03/22 11/03/22 17:58 17:58 17:58 BUN Ammonia 67 H TSH Ur Leukocyte Esterase Urine WBC Valproic Acid 119.1 H* CHARLES Screen POSITIVE A CHARLES Titer 1:640 H CHARLES Pattern Nuclear, Centromere A 11/13/22 11/13/22 14:49 14:49 BUN Ammonia 57 H TSH Ur Leukocyte Esterase Urine WBC Valproic Acid 116.2 H* CHARLES Screen CHARLES Titer CHARLES Pattern Assessment and Plan (1) Dyspnea: Status: Acute (2) Has daytime drowsiness: Status: Acute (3) CHARLES positive: Status: Acute (4) Chronic restrictive lung disease: Status: Acute Plan The patient present with multiple constitutional complaints and found to have and elevated CHARLES and abnromal PFTs with a mild restriction with a mild diffusion impairment. Indeed, the changes could be explained by her elevated BMI. The patient also has evidence of daytime drowsiness bringing up the possibility of obstructive sleep apnea. REC: -Additional bloodwork to address the abnormal CHARLES. -Overnight oximetry while in the hospital and will benefit from an outpt sleep study -I do not feel strongly that additional imaging studies are needed at this time. However, if her bloodwork confirms and on going connective tissue disease process or if her symptoms worsen, a CT chest with High definition cuts with inspiratory and expiratory cuts would be warranted. -Clinically the patient appears to be stable and should have further pulmonary work up as an outpt. Time Spent With Patient Time: Total time managing care of this patient today ____ minutes. Procedures Date of Service Date of Service: 11/17/22
--- NOTE | 2022-11-17 22:04 | PC.NURSE ---
pt was agitated and asked for IM geodon. pt started banging wall and throwing things at staff. pt received IM geodon. pt calmed down and took her night meds. pt had an EKG.
[2022-11-17] MEDS: Mineral Oil/Petrolatum,White 106 GM Tube 1 APPL TOPICAL (22:19)
[2022-11-18] MEDS: Melatonin 3 MG TABLET 6 MG PO ×2 (00:39→23:32)
[2022-11-18] MEDS: hydrOXYzine HCL 25 MG TABLET PO ×3 (00:39→23:32)
[2022-11-18] MEDS: ALPRAZolam 0.5 MG TABLET PO ×2 (00:39→23:32)
[2022-11-18] MEDS: Lactulose 20 GM/30 ML SOLUTION PO (12:38)
[2022-11-18] MEDS: Sennosides/Docusate Sodium TABLET 1 TAB PO ×3 (12:38→20:28)
[2022-11-18 12:40] VITALS: BP 119/78; PULSE 77; TEMP 36.6; O2SAT 98
[2022-11-18] MEDS: NaPROXEN 500 MG TABLET PO (12:47)
[2022-11-18 14:00] VITALS: BMI 36.1
--- NOTE | 2022-11-18 14:30 | HO.PSYCHPN ---
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 when the peer discharges will patient be able to remain in good behavioral/impulse control -appeals writer observes that patient has not complained about intrusive thoughts and thus able to remain in behavioral control; this seems to point less towards OCD and that thoughts are more likely to being situationally triggered 11/02 tough night last night and got dysregulated however doing ok today. labs drawn to assess amenorrhea Labs drawn to assess depakote level, lfts, ammonia check HBA1C: WNL increased trazodone to 100mg and added clonidine 0.1mg qhs for hard time sleeping Reason for contiued inpatient stay Substantial Risk for: harm to self, harm to others, inability to function and rapid decompensation Time Spent With Patient Time: Total time managing care of this patient today ____ minutes.
[2022-11-18] MEDS: OLANZapine 7.5 MG TABLET 15 MG PO (14:57)
[2022-11-18] MEDS: Ziprasidone 20 MG CAPSULE PO ×2 (14:58→21:33)
[2022-11-18 20:15] VITALS: BP 121/66; PULSE 101; TEMP 36.1; O2SAT 99
[2022-11-18] MEDS: Divalproex Sodium ER 500 MG TAB.ER.24H 2500 MG PO (20:25)
[2022-11-18] MEDS: OLANZapine 10 MG TABLET 20 MG PO (20:26)
[2022-11-18] MEDS: cloNIDine HCL 0.1 MG TABLET PO (20:27)
[2022-11-18] MEDS: traZODone HCL 100 MG TABLET PO (20:27)
[2022-11-18] MEDS: Paliperidone ER 6 MG TAB.ER.24 PO (20:28)
[2022-11-18] MEDS: Famotidine 20 MG TABLET PO (20:29)
[2022-11-18] MEDS: diphenhydrAMINE HCL 25 MG CAPSULE 50 MG PO (20:29)
[2022-11-18] MEDS: Multivitamin TABLET 1 TAB PO (20:29)
--- NOTE | 2022-11-18 23:45 | PC.NURSE ---
This specification writer was approached by the patient to ask for a prn Xanax. When it was noted the Xanax needed to be renewed and the doctor needed to be contacted, patient started yelling I want my Xanax, why can't I have my Xanax right now? Patient was being monitored with a continuous pulse oximetry device and yelled I hate this stupid thing and I won't keep wearing it. Patient threw the device on the floor, breaking the device. When this specification writer was able to obtain an order to renew the Xanax and give it to the patient, the amount of time she waited was less than 30 minutes. During that 30 minutes, patient was encouraged to take deep breaths and be willing to take the Hydroxyzine and Melatonin while she was waiting for the Xanax. However, patient was unwilling to cooperate and became upset and went to her room. When this specification writer brought her the Xanax, Melatonin and Hydroxyzine together she said They (respiratory) won't want to treat me now will they? Patient took the medications and then yelled, because this specification writer started to close the door to her room (at her request), and started to demand an IM medication. Report was passed on to the next shift.
--- NOTE | 2022-11-19 04:49 | PC.RT ---
Pt refused NOC oximetry test.
--- NOTE | 2022-11-19 06:46 | PC.RT ---
pt evaluated last night for overnight oximtery for possible sleep apnea. RT placed the portable pulse oximeter and Wristox on patient. RN stated that the patient was fine to wear this overnight and the equipment was placed on patient at 22:00 about 1 hour later RT received a call from nursing saying that the equipment was found on the floor was broken into pieces therefore the continuation of the test was not finished but did not complete the test.
--- NOTE | 2022-11-19 09:43 | HO.PSYCHPN ---
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 currently has no outpt services set up.? Patient says she feels more clear minded with change of medications and subsequently more in control of herself. Supervisor [employer] agrees with director social service that much of patient's current stability has to do with getting in a lot of attention from a supportive peer on the unit; concern is that when the peer discharges will patient be able to remain in good behavioral/impulse control -physician underwriter observes that patient has not complained about intrusive thoughts and thus able to remain in behavioral control; this seems to point less towards OCD and that thoughts are more likely to being situationally triggered 11/02 tough night last night and got dysregulated however doing ok today. labs drawn to assess amenorrhea Labs drawn to assess depakote level, lfts, ammonia check HBA1C: WNL increased trazodone to 100mg and added clonidine 0.1mg qhs for hard time sleeping Patient educated on: diagnosis, medication risk/benefits, therapeutic strategies and medical condition Informed Consent: understands and further education needed Reason for contiued inpatient stay Substantial Risk for: inability to function Time Spent With Patient Time: Total time managing care of this patient today ____ minutes.
[2022-11-19] MEDS: Sennosides/Docusate Sodium TABLET 1 TAB PO ×3 (12:00→21:37)
[2022-11-19 14:00] VITALS: BMI 35.7
[2022-11-19 14:31] VITALS: BP 122/68; PULSE 98; RESP 16; TEMP 36.6; O2SAT 98
[2022-11-19] MEDS: OLANZapine 7.5 MG TABLET 15 MG PO (16:45)
[2022-11-19 21:30] VITALS: BP 115/55; PULSE 83; TEMP 36; O2SAT 96
[2022-11-19] MEDS: diphenhydrAMINE HCL 25 MG CAPSULE 50 MG PO (21:38)
[2022-11-19] MEDS: cloNIDine HCL 0.1 MG TABLET PO (21:38)
[2022-11-19] MEDS: Famotidine 20 MG TABLET PO (21:38)
[2022-11-19] MEDS: Multivitamin TABLET 1 TAB PO (21:39)
[2022-11-19] MEDS: traZODone HCL 100 MG TABLET PO (21:39)
[2022-11-19] MEDS: OLANZapine 10 MG TABLET 20 MG PO (21:39)
[2022-11-19] MEDS: Paliperidone ER 6 MG TAB.ER.24 PO (21:40)
[2022-11-19] MEDS: Divalproex Sodium ER 500 MG TAB.ER.24H 2500 MG PO (21:40)
[2022-11-20 06:00] VITALS: BP 124/72; PULSE 76; RESP 16; TEMP 36.7; O2SAT 95
[2022-11-20] MEDS: Sennosides/Docusate Sodium TABLET 1 TAB PO ×3 (12:08→20:28)
--- NOTE | 2022-11-20 12:16 | HO.PSYCHPN ---
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 able to remain in behavioral control; this seems to point less towards OCD and that thoughts are more likely to being situationally triggered 11/02 tough night last night and got dysregulated however doing ok today. labs drawn to assess amenorrhea Labs drawn to assess depakote level, lfts, ammonia check HBA1C: WNL increased trazodone to 100mg and added clonidine 0.1mg qhs for hard time sleeping Patient educated on: diagnosis, medication risk/benefits and medical condition Informed Consent: understands Reason for contiued inpatient stay Substantial Risk for: rapid decompensation Time Spent With Patient Time: Total time managing care of this patient today ____ minutes.
[2022-11-20 13:40] LABS: Anti DNA DS Antibody 1 IU/mL; Antibody to SS-A Antigen <1.0 NEG AI (<1.0 NEG); Antibody to SS-B Antigen <1.0 NEG AI (<1.0 NEG); Scleroderma 70 Antibody <1.0 NEG AI (<1.0 NEG)
[2022-11-20 15:29] LABS: Complement C3 115 mg/dL (83-193)
[2022-11-20] MEDS: OLANZapine 7.5 MG TABLET 15 MG PO (15:42)
[2022-11-20] MEDS: hydrOXYzine HCL 25 MG TABLET PO ×2 (15:42→23:34)
[2022-11-20] MEDS: OLANZapine 10 MG TABLET 20 MG PO (20:27)
[2022-11-20] MEDS: Famotidine 20 MG TABLET PO (20:28)
[2022-11-20] MEDS: traZODone HCL 100 MG TABLET PO (20:28)
[2022-11-20] MEDS: cloNIDine HCL 0.1 MG TABLET PO (20:28)
[2022-11-20] MEDS: Paliperidone ER 6 MG TAB.ER.24 PO (20:28)
[2022-11-20] MEDS: Divalproex Sodium ER 500 MG TAB.ER.24H 2500 MG PO (20:28)
[2022-11-20] MEDS: diphenhydrAMINE HCL 25 MG CAPSULE 50 MG PO (20:28)
[2022-11-20 20:38] VITALS: BP 119/65; PULSE 109
[2022-11-20] MEDS: Melatonin 3 MG TABLET 6 MG PO (23:34)
[2022-11-20] MEDS: ALPRAZolam 0.5 MG TABLET PO (23:34)
--- NOTE | 2022-11-21 11:51 | P.PNPSI_ITS ---
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 so, difficult to resolve since patient's stability on current med regimen is fragile) 11/01 pt wants to discharge home but understands that even though she has had several good days of good behavioral/ impulse control, she currently has no outpt services set up.? Patient says she feels more clear minded with change of medications and subsequently more in control of herself. Vice President Process agrees with licensed master social worker that much of patient's current stability has to do with getting in a lot of attention from a supportive peer on the unit; concern is that when the peer discharges will patient be able to remain in good behavioral/impulse control -movie writer observes that patient has not complained about intrusive thoughts and thus able to remain in behavioral control; this seems to point less towards OCD and that thoughts are more likely to being situationally triggered 11/02 tough night last night and got dysregulated however doing ok today. labs drawn to assess amenorrhea Labs drawn to assess depakote level, lfts, ammonia check HBA1C: WNL increased trazodone to 100mg and added clonidine 0.1mg qhs for hard time sleeping Patient educated on: diagnosis and medication risk/benefits Informed Consent: understands Reason for contiued inpatient stay Substantial Risk for: rapid decompensation Time Spent With Patient Time: Total time managing care of this patient today ____ minutes.
[2022-11-21] MEDS: Sennosides/Docusate Sodium TABLET 1 TAB PO ×2 (12:27→19:50)
[2022-11-21 12:37] VITALS: BP 101/61; PULSE 76; RESP 16; TEMP 36.9; O2SAT 95
--- NOTE | 2022-11-21 13:12 | PC.NURSE ---
Addendum entered by Jessi Mercer RN 11/21/22 13:42: SARS/FLU/RSV SWAB ORDERED; RESULTS PENDING Original Note: pt complains of headache, sore throat, and loss of appetite; provider notified, awaiting orders
[2022-11-21 14:00] VITALS: BMI 35.6
[2022-11-21] MEDS: Throat Lozenge, Medicated LOZENGE 1 LOZENGE MUCOUS MEM (14:38)
[2022-11-21 15:03] LABS: Influenza A PCR NEGATIVE (Negative); Influenza B PCR NEGATIVE (Negative); Resp Syncy Virus RNA Qual PCR NEGATIVE (Negative); SARS COV2 PCR INHOUSE NEGATIVE (Negative)
[2022-11-21] MEDS: OLANZapine 7.5 MG TABLET 15 MG PO (15:47)
[2022-11-21 18:00] VITALS: BP 132/82; PULSE 85; RESP 16; TEMP 36.4; O2SAT 96
[2022-11-21] MEDS: Divalproex Sodium ER 500 MG TAB.ER.24H 2500 MG PO (19:49)
[2022-11-21] MEDS: cloNIDine HCL 0.1 MG TABLET PO (19:49)
[2022-11-21] MEDS: Lactulose 20 GM/30 ML SOLUTION PO (19:49)
[2022-11-21] MEDS: OLANZapine 10 MG TABLET 20 MG PO (19:50)
[2022-11-21] MEDS: Multivitamin TABLET 1 TAB PO (19:50)
[2022-11-21] MEDS: Famotidine 20 MG TABLET PO (19:50)
[2022-11-21] MEDS: traZODone HCL 100 MG TABLET PO (19:51)
[2022-11-21] MEDS: diphenhydrAMINE HCL 25 MG CAPSULE 50 MG PO (19:51)
[2022-11-21] MEDS: Ziprasidone 20 MG CAPSULE PO (20:11)
[2022-11-21] MEDS: Paliperidone ER 6 MG TAB.ER.24 PO (20:17)
[2022-11-21 22:23] LABS: Histone Antibody 2.1 U (<1.0)
[2022-11-22] MEDS: traZODone HCL 50 MG TABLET PO (01:11)
[2022-11-22] MEDS: Sennosides/Docusate Sodium TABLET 1 TAB PO ×3 (13:54→20:02)
[2022-11-22] MEDS: Lactulose 20 GM/30 ML SOLUTION PO (13:54)
[2022-11-22 13:57] LABS: IDNOW Serial# 6674DD1D; Strep A Nucleic Acid Negative (Negative)
[2022-11-22] MEDS: OLANZapine 7.5 MG TABLET 15 MG PO (16:03)
[2022-11-22] MEDS: hydrOXYzine HCL 25 MG TABLET PO ×3 (16:03→23:44)
[2022-11-22 17:44] LABS: Prolactin Monomeric 30.8 ng/mL (3.2-25.2); Prolactin, Total 38.4 ng/mL
[2022-11-22] MEDS: NaPROXEN 500 MG TABLET PO (19:46)
[2022-11-22] MEDS: Paliperidone ER 6 MG TAB.ER.24 PO (20:01)
[2022-11-22] MEDS: diphenhydrAMINE HCL 25 MG CAPSULE 50 MG PO (20:01)
[2022-11-22] MEDS: Divalproex Sodium ER 500 MG TAB.ER.24H 2500 MG PO (20:01)
[2022-11-22] MEDS: traZODone HCL 100 MG TABLET PO (20:02)
[2022-11-22] MEDS: ALPRAZolam 0.5 MG TABLET PO ×3 (20:02→23:44)
[2022-11-22] MEDS: Famotidine 20 MG TABLET PO (20:02)
[2022-11-22] MEDS: cloNIDine HCL 0.1 MG TABLET PO (20:02)
[2022-11-22] MEDS: Multivitamin TABLET 1 TAB PO (20:02)
[2022-11-22] MEDS: OLANZapine 10 MG TABLET 20 MG PO (20:02)
[2022-11-22 20:08] VITALS: BP 159/72; PULSE 63
--- NOTE | 2022-11-22 23:16 | P.PNPSI_ITS ---
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 currently has no outpt services set up.? Patient says she feels more clear minded with change of medications and subsequently more in control of herself. Supervisor Dog License Officer agrees with outreach and education social worker that much of patient's current stability has to do with getting in a lot of attention from a supportive peer on the unit; concern is that when the peer discharges will patient be able to remain in good behavioral/impulse control -assembly instructions writer observes that patient has not complained about intrusive thoughts and thus able to remain in behavioral control; this seems to point less towards OCD and that thoughts are more likely to being situationally triggered 11/02 tough night last night and got dysregulated however doing ok today. labs drawn to assess amenorrhea Labs drawn to assess depakote level, lfts, ammonia check HBA1C: WNL increased trazodone to 100mg and added clonidine 0.1mg qhs for hard time sleepin g Reason for contiued inpatient stay Substantial Risk for: rapid decompensation Time Spent With Patient Time: Total time managing care of this patient today ____ minutes.
[2022-11-22] MEDS: Melatonin 3 MG TABLET 6 MG PO ×2 (23:45)
[2022-11-23 08:15] VITALS: BP 106/56; PULSE 88; RESP 18; TEMP 36.4; O2SAT 96
[2022-11-23] MEDS: Sennosides/Docusate Sodium TABLET 1 TAB PO ×3 (13:57→19:49)
[2022-11-23] MEDS: Lactulose 20 GM/30 ML SOLUTION PO ×2 (13:58→19:44)
[2022-11-23 14:28] LABS: Ammonia 54 umol/L (13-55)
[2022-11-23 14:33] LABS: Valproate 104.4 mcg/mL (50.0-100.0)
[2022-11-23 14:36] LABS: Alanine Aminotransferase 12 U/L (0-31); Albumin Level 3.8 g/dL (3.5-5.0); Alkaline Phosphatase 48 U/L (39-117); Aspartate Amino Transferase 22 U/L (5-31); Bilirubin Direct < 0.2 mg/dL (0.0-0.5); Bilirubin Total 0.3 mg/dL (0.0-1.0); Total Protein 6.9 g/dL (6.5-8.0)
[2022-11-23] MEDS: Lidocaine HCl 4 % Topical 50 ML SOLUTION 1 APPL TOPICAL (15:02)
--- NOTE | 2022-11-23 16:59 | P.PNPSI_ITS ---
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 setting of supportive, trained staff, available 13/05 who are required to constantly reassure and redirect patient; and despite this constant support patient is always on the cusp of getting out of control.? For now patient needs to remain on inpatient unit for medication management which can hopefully be adjusted so that patient may have increased chances of success in the community; also, patient needs extensive community support for her to remain stable the community which social work is trying to set up.? 10/31 will attempt to address history of amenorrhea and chronic hand/foot swelling (which is most likely medication related; if so, difficult to resolve since patient's stability on current med regimen is fragile) 11/01 pt wants to discharge home but understands that even though she has had several good days of good behavioral/ impulse control, she currently has no outpt services set up.? Patient says she feels more clear minded with change of medications and subsequently more in control of herself. Photographic Laboratory Supervisor agrees with social scientist that much of patient's current stability has to do with getting in a lot of attention from a supportive peer on the unit; concern is that when the peer discharges will patient be able to remain in good behavioral/impulse co ntrol -machine sign writer observes that patient has not complained about intrusive thoughts and thus able to remain in behavioral control; this seems to point less towards OCD and that thoughts are more likely to being situationally triggered 11/02 tough night last night and got dysregulated however doing ok today. labs drawn to assess amenorrhea Labs drawn to assess depakote level, lfts, ammonia check HBA1C: WNL increased trazodone to 100mg and added clonidine 0.1mg qhs for hard time sleeping Patient educated on: diagnosis and medication risk/benefits Informed Consent: understands Reason for contiued inpatient stay Substantial Risk for: med/psych decompensation Time Spent With Patient Time: Total time managing care of this patient today ____ minutes.
[2022-11-23] MEDS: OLANZapine 7.5 MG TABLET 15 MG PO (17:01)
[2022-11-23] MEDS: Divalproex Sodium ER 500 MG TAB.ER.24H 2500 MG PO (19:44)
[2022-11-23] MEDS: Famotidine 20 MG TABLET PO (19:45)
[2022-11-23] MEDS: traZODone HCL 100 MG TABLET PO (19:45)
[2022-11-23] MEDS: Multivitamin TABLET 1 TAB PO (19:45)
[2022-11-23] MEDS: OLANZapine 10 MG TABLET 20 MG PO (19:45)
[2022-11-23] MEDS: cloNIDine HCL 0.1 MG TABLET PO (19:46)
[2022-11-23] MEDS: diphenhydrAMINE HCL 25 MG CAPSULE 50 MG PO (19:46)
[2022-11-23] MEDS: Paliperidone ER 3 MG TAB.ER.24 PO (19:46)
[2022-11-23 20:28] VITALS: BP 132/64; PULSE 122; RESP 16; TEMP 36.1; O2SAT 98
[2022-11-23] MEDS: hydrOXYzine HCL 25 MG TABLET PO (23:43)
[2022-11-23] MEDS: Melatonin 3 MG TABLET 6 MG PO (23:43)
[2022-11-23] MEDS: ALPRAZolam 0.5 MG TABLET PO (23:43)
[2022-11-23] MEDS: traZODone HCL 50 MG TABLET PO (23:43)
[2022-11-24 14:00] VITALS: BMI 35.6
[2022-11-24] MEDS: OLANZapine 7.5 MG TABLET 15 MG PO (16:48)
--- NOTE | 2022-11-24 17:05 | P.PNPSI_ITS ---
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 increased chances of success in the community; also, patient needs extensive community support for her to remain stable the community which social work is trying to set up.? 10/31 will attempt to address history of amenorrhea and chronic hand/foot swelling (which is most likely medication related; if so, difficult to resolve since patient's stability on current med regimen is fragile) 11/01 pt wants to discharge home but understands that even though she has had s everal good days of good behavioral/ impulse control, she currently has no outpt services set up.? Patient says she feels more clear minded with change of medications and subsequently more in control of herself. 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 labs drawn to assess amenorrhea Labs drawn to assess depakote level, lfts, ammonia check HBA1C: WNL increased trazodone to 100mg and added clonidine 0.1mg qhs for hard time sleeping Reason for contiued inpatient stay Substantial Risk for: harm to others Time Spent With Patient Time: Total time managing care of this patient today ____ minutes.
[2022-11-24 18:00] VITALS: BP 118/58; PULSE 99; RESP 14; TEMP 36.8; O2SAT 99
[2022-11-24] MEDS: Ziprasidone 20 MG CAPSULE PO (19:14)
[2022-11-24] MEDS: Paliperidone ER 3 MG TAB.ER.24 PO (20:24)
[2022-11-24] MEDS: OLANZapine 10 MG TABLET 20 MG PO (20:24)
[2022-11-24] MEDS: cloNIDine HCL 0.1 MG TABLET PO (20:24)
[2022-11-24] MEDS: Divalproex Sodium ER 500 MG TAB.ER.24H 2500 MG PO (20:24)
[2022-11-24] MEDS: traZODone HCL 100 MG TABLET PO (20:25)
[2022-11-24] MEDS: Multivitamin TABLET 1 TAB PO (20:25)
[2022-11-24] MEDS: diphenhydrAMINE HCL 25 MG CAPSULE 50 MG PO (20:25)
[2022-11-24] MEDS: Famotidine 20 MG TABLET PO (20:25)
[2022-11-24] MEDS: Sennosides/Docusate Sodium TABLET 1 TAB PO (20:25)
[2022-11-24] MEDS: ALPRAZolam 0.5 MG TABLET PO (23:29)
[2022-11-24] MEDS: Melatonin 3 MG TABLET 6 MG PO (23:29)
[2022-11-24] MEDS: hydrOXYzine HCL 25 MG TABLET PO (23:29)
[2022-11-25 08:21] VITALS: BP 98/63; PULSE 67; RESP 16; TEMP 36.6; O2SAT 98
[2022-11-25] MEDS: Sennosides/Docusate Sodium TABLET 1 TAB PO ×3 (09:22→23:24)
--- NOTE | 2022-11-25 13:07 | P.PNPSI_ITS ---
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 outpt services set up.? Patient says she feels more clear minded with change of medications and subsequently more in control of herself. [employer] agrees with social director that much of patient's current stability has to do with getting in a lot of attention from a supportive peer on the unit; concern is that when the peer discharges will patient be able to remain in good behavioral/impulse control -investment underwriter observes that patient has not complained about intrusive thoughts and thus able to remain in behavioral control; this seems to point less towards OCD and that thoughts are more likely to being situationally triggered 11/02 tough night last night and got dysregulated however doing ok today. labs drawn to assess amenorrhea Labs drawn to assess depakote level, lfts, ammonia check HBA1C: WNL increased trazodone to 100mg and added clonidine 0.1mg qhs for hard time sleeping Reason for contiued inpatient stay Substantial Risk for: inability to function and rapid decompensation Time Spent With Patient Time: Total time managing care of this patient today ____ minutes.
[2022-11-25 14:00] VITALS: BMI 35.5
[2022-11-25] MEDS: Ziprasidone 20 MG CAPSULE PO (15:06)
[2022-11-25] MEDS: OLANZapine 7.5 MG TABLET 15 MG PO (15:44)
[2022-11-25] MEDS: NaPROXEN 500 MG TABLET PO (19:57)
[2022-11-25 23:05] VITALS: BP 116/56; PULSE 95; TEMP 36.5
[2022-11-25] MEDS: diphenhydrAMINE HCL 25 MG CAPSULE 50 MG PO (23:22)
[2022-11-25] MEDS: OLANZapine 10 MG TABLET 20 MG PO (23:23)
[2022-11-25] MEDS: Famotidine 20 MG TABLET PO (23:24)
[2022-11-25] MEDS: cloNIDine HCL 0.1 MG TABLET PO (23:24)
[2022-11-25] MEDS: Multivitamin TABLET 1 TAB PO (23:25)
[2022-11-25] MEDS: Divalproex Sodium ER 500 MG TAB.ER.24H 2500 MG PO (23:26)
[2022-11-25] MEDS: traZODone HCL 100 MG TABLET PO (23:26)
[2022-11-25] MEDS: Paliperidone ER 3 MG TAB.ER.24 PO (23:26)
[2022-11-25] MEDS: ALPRAZolam 0.5 MG TABLET PO (23:34)
[2022-11-25] MEDS: Melatonin 3 MG TABLET 6 MG PO (23:35)
[2022-11-25] MEDS: hydrOXYzine HCL 25 MG TABLET PO (23:35)
--- NOTE | 2022-11-26 09:54 | HO.PSYCHPN ---
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 the day 1/8 having a good day, in behavioral control, doing well with her roommate.? Moving medications to evening times much as possible to try and eliminate daytime sedation and help with sleep. 10/29 another good day so far, and in good behavioral and impulse control; continue to monitor medication changes including overall decreased dose and Depakote after switching to extended release 10/30 patient woke up irritable but was able to use p.o. medications instead of IM medication.? Patient is needy, needing frequent encouragement. Team discussed case and at this time there is no less restrictive setting for patient to receive treatment.? Although she has had 4 days without needing physical/chemical restraint, this temporary stability is in the setting of supportive, trained staff, available 13/05 who are required to constantly reassure and redirect patient; and despite this constant support patient is always on the cusp of getting out of control.? For now patient needs to remain on inpatient unit for medication management which can hopefully be adjusted so that patient may have increased chances of success in the community; also, patient needs extensive community support for her to remain stable the community which social work is trying to set up.? 10/31 will attempt to address history of amenorrhea and chronic hand/foot swelling (which is most likely medication related; if so, difficult to resolve since patient's stability on current med regimen is fragile) 11/01 pt wants to discharge home but understands that even though she has had several good days of good behavioral/ impulse control, she currently has no outpt services set up.? Patient says she feels more clear minded with change of medications and subsequently more in control of herself. Archives Director agrees with psychiatric social worker that much of patient's current stability has to do with getting in a lot of attention from a supportive peer on the unit; concern is that when the peer discharges will patient be able to remain in good behavioral/impulse control -comic book writer observes that patient has not complained about intrusive thoughts and thus able to remain in behavioral control; this seems to point less towards OCD and that thoughts are more likely to being situationally triggered 11/02 tough night last night and got dysregulated however doing ok today. labs drawn to assess amenorrhea Labs drawn to assess depakote level, lfts, ammonia check HBA1C: WNL increased trazodone to 100mg and added clonidine 0.1mg qhs for hard time sleeping Patient educated on: diagnosis, medication risk/benefits and therapeutic strategies Informed Consent: understands Reason for contiued inpatient stay Substantial Risk for: stable for discharge Time Spent With Patient Time: Total time managing care of this patient today ____ minutes.
[2022-11-26] MEDS: Sennosides/Docusate Sodium TABLET 1 TAB PO ×3 (12:05→23:02)
[2022-11-26 12:10] VITALS: BP 126/77; PULSE 94; RESP 18; TEMP 36.2; O2SAT 98
[2022-11-26 14:00] VITALS: BMI 35.2
[2022-11-26] MEDS: OLANZapine 7.5 MG TABLET 15 MG PO (16:30)
[2022-11-26 22:45] VITALS: BP 113/65; PULSE 87; TEMP 36.4
[2022-11-26] MEDS: hydrOXYzine HCL 25 MG TABLET PO (23:00)
[2022-11-26] MEDS: Divalproex Sodium ER 500 MG TAB.ER.24H 2500 MG PO (23:01)
[2022-11-26] MEDS: diphenhydrAMINE HCL 25 MG CAPSULE 50 MG PO (23:01)
[2022-11-26] MEDS: Melatonin 3 MG TABLET 6 MG PO (23:02)
[2022-11-26] MEDS: OLANZapine 10 MG TABLET 20 MG PO (23:02)
[2022-11-26] MEDS: Paliperidone ER 3 MG TAB.ER.24 PO (23:03)
[2022-11-26] MEDS: Famotidine 20 MG TABLET PO (23:03)
[2022-11-26] MEDS: traZODone HCL 100 MG TABLET PO (23:03)
[2022-11-26] MEDS: ALPRAZolam 0.5 MG TABLET PO (23:03)
[2022-11-26] MEDS: cloNIDine HCL 0.1 MG TABLET PO (23:04)
[2022-11-26] MEDS: Mineral Oil/Petrolatum,White 106 GM Tube 1 APPL TOPICAL (23:19)
[2022-11-26] MEDS: Multivitamin TABLET 1 TAB PO (23:19)
[2022-11-27] MEDS: Sennosides/Docusate Sodium TABLET 1 TAB PO (10:26)
[2022-11-27 10:32] VITALS: BP 104/59; PULSE 92; RESP 18; TEMP 36.3; O2SAT 97
--- NOTE | 2022-11-27 11:51 | P.DS_ITS ---
DS: Providers Provider Date of Service: 11/27/22 Date of admission: 10/15/22 14:56 Date of discharge: 11/27/22 Primary care physician: Unknown Physician Attending physician on admission: Ruel Bustos Consults: 11/05/22 14:59 Consult to Hospitalist Routine Consulting Provider: Hospitalist Reason For Exam: need help assessing b/l swollen hands/feet 11/16/22 15:17 Consult to Pulmonology Routine Consulting Provider: Royce Melchor Reason for consultation: f/u PFT r/o interstitial, CT disease or other Has provider been notified: Yes Attending physician on discharge: Ruel Bustos DS: Diagnosis Discharge Diagnosis (1) Autism: Status: Suspected (2) PTSD (post-traumatic stress disorder): Status: Suspected (3) Intermittent explosive disorder: Status: Acute (4) Dyspnea: Status: Resolved (5) Has daytime drowsiness: Status: Acute (6) CHARLES positive: Status: Acute (7) Chronic restrictive lung disease: Status: Acute (8) Peripheral edema: Status: Acute (9) Amenorrhea: Status: Acute DS: Medications Discharge Medications Home Medications: Previous Rx's Medication Instructions Recorded alprazolam 0.5 mg tablet 0.5 mg PO TID PRN 11/27/22 Anxiety/agitation 30 days #60 tabs clonidine HCl 0.1 mg tablet 0.1 mg PO BEDTIME 30 days #30 tabs 11/27/22 diphenhydramine HCl 25 mg capsule 50 mg PO BEDTIME 30 days #60 caps 11/27/22 divalproex 500 mg tablet,extended 2,500 mg PO BEDTIME 30 days #150 11/27/22 release 24 hr tabs famotidine 20 mg tablet 20 mg PO BEDTIME 30 days #30 tabs 11/27/22 hydroxyzine HCl 25 mg tablet 25 mg PO Q6H PRN Anxiety 30 days 11/27/22 #30 tabs loratadine 10 mg tablet 10 mg PO DAILY PRN nasal 11/27/22 congestion 30 days #30 tabs melatonin 5 mg tablet 5 mg PO BEDTIME PRN sleep 30 days 11/27/22 #30 tabs multivitamin (Daily-Toshia tablet) 1 tab PO BEDTIME 30 days #30 tabs 11/27/22 naproxen 500 mg tablet 500 mg PO Q12H PRN mild pain, take 11/27/22 w/ food 30 days #30 tabs olanzapine 10 mg tablet 20 mg PO BEDTIME 30 days #60 tabs 11/27/22 olanzapine 15 mg tablet 15 mg PO DAILY@1400 30 days #30 11/27/22 tabs paliperidone 3 mg tablet,extended 3 mg PO BEDTIME 30 days #30 tabs 11/27/22 release 24 hr (Invega) sennosides 8.6 mg-docusate sodium 1 tab PO BID 30 days #60 tabs 11/27/22 50 mg tablet (Senna Plus) trazodone 50 mg tablet 50 mg PO BEDTIME PRN Insomnia 30 11/27/22 days #30 tabs ziprasidone HCl 20 mg capsule 20 mg PO BID PRN agitation 30 days 11/27/22 #60 caps Mental Status Exam Mental Status Exam Narrative: Pt is alert and oriented; behavior is cooperative, calm and friendly; when triggered she can quickly get dysregulated and aggressive (mostly toward her self unless others try to intervene); otherwise, appropriate with peers and staff; patient is not in distress; dressed in casual attire, cloths a little unkempt but with adequate hygiene; mood is described as good and affect congruent, brighter, more expressive; eye contact appropriate, sometimes staring, but not aggressively; Speech is with a little slowed rate; normal volume and prosody; no psychomotor agitation/retardation present; thought process is organized and goal directed; Thought content is on tx, hope for discharge; otherwise pertinent to relevant topics and without any delusional content, paranoid ideations or grandiosity; denies any SI/HI. There is no evidence of perceptual disturbance and she denies AVH. Patients insight and judgment are impaired but improved and at baseline (or above). Data Data Completed and Pending Completed studies during hospitalization [Text1]: 11/02/22 11/17/22 11/21/22 14:26 13:37 13:40 Total Bilirubin Direct Bilirubin AST ALT Alkaline Phosphatase Ammonia Total Protein Albumin Monomeric Prolactin 30.8 H Total Prolactin 38.4 H Valproic Acid SS-A/Ro Antibody <1.0 NEG SS-B/La Antibody <1.0 NEG Scl-70 Scleroderma Ab <1.0 NEG Double Strand DNA Ab 1 Complement C3 115 Complement C4 24 Influenza Type A (PCR) NEGATIVE Influenza Type B (PCR) NEGATIVE RSV RNA Qual (PCR) NEGATIVE SARS-CoV-2 RNA (RT-PCR) NEGATIVE S. pyogenes GrpA JOSE ANTONIO 11/22/22 11/23/22 11/23/22 13:15 14:08 14:08 Total Bilirubin 0.3 Direct Bilirubin < 0.2 AST 22 ALT 12 Alkaline Phosphatase 48 Ammonia 54 Total Protein 6.9 Albumin 3.8 Monomeric Prolactin Total Prolactin Valproic Acid SS-A/Ro Antibody SS-B/La Antibody Scl-70 Scleroderma Ab Double Strand DNA Ab Complement C3 Complement C4 Influenza Type A (PCR) Influenza Type B (PCR) RSV RNA Qual (PCR) SARS-CoV-2 RNA (RT-PCR) S. pyogenes GrpA JOSE ANTONIO Negative 11/23/22 14:08 Total Bilirubin Direct Bilirubin AST ALT Alkaline Phosphatase Ammonia Total Protein Albumin Monomeric Prolactin Total Prolactin Valproic Acid 104.4 H SS-A/Ro Antibody SS-B/La Antibody Scl-70 Scleroderma Ab Double Strand DNA Ab Complement C3 Complement C4 Influenza Type A (PCR) Influenza Type B (PCR) RSV RNA Qual (PCR) SARS-CoV-2 RNA (RT-PCR) S. pyogenes GrpA JOSE ANTONIO Imaging Diagnostic Imaging Impressions Foot X-Ray 10/23/22 11:22 IMPRESSION: Fracture proximal phalanx fifth toe. Chest X-Ray 11/05/22 18:54 IMPRESSION: No acute disease Venous Duplex 11/05/22 19:15 IMPRESSION: No DVT demonstrated in the bilateral lower extremity. DS: Summary Hospital Course Hospital Course: Hpi: Pt is 22 yo female with NEW dx of Autistic Spectrum Disorder (and undiagnosed from schizoaffective disorder), PTSD, intermittent explosive disorder, with a lifetime of psychiatric illness, including recently discharged from [facility] after being there for 5 straight years who presents to ED after discharged from just days before, in face of getting dysregulated at home, breaking a glass and superficially cutting her arm. Impression: Patient is a fun, intelligent, cooperative and friendly person. When she gets triggered by something she can decompensate severely, dissociate and become physically aggressive.? It has been difficult to determine her diagnosis as she has had a life time of psychiatric illness which includes being in either inpatient or residential settings for most of her life and most recently, for the past 5 years, residing in a [facility] hospital.? From [facility], she carries the diagnosis of Schizoaffective disorder and mention of borderline personality disorder.? Given the longevity that patient has been at this treatment center, investment underwriter is slow to change her diagnosis.? However, Patient has been treated by [facility] staff either in the ED or on the inpatient unit for about 30 days and at this time, Powerhouse Tender cannot conclude that patient has a psychotic illness.? She is linear, logical, articulate, insightful and organized in her thinking; she is organized in her behaviors.? Patient denies any history of paranoid or delusional thoughts, has not expressed any delusional/paranoid thinking and none could be solicited.? Patient consistently denies any auditory or visual hallucinations and denies she has ever had any history of such; rather she reports getting intrusive thoughts that provoke strong urges to act upon the thought and will not let up unless she does so.? Patient is unclear herself if these intrusive thoughts occur are only when specifically triggered or if they can also arbitrarily manifest; since on the unit, they seem to predominantly follow a specific trigger that she can identify, but not always.? Patient has never appeared to be internally preoccupied.? Powerhouse Tender reviewed the notes available from [facility] and there is no mention of psychotic or manic symptoms that investment underwriter could find.? At this time, schizoaffective seems less and less likely; will make it a rule out.? Powerhouse Tender provisionally diagnosed patient with ASD, which needs to be further examined. Patient has PTSD, either with dissociative episodes or with an independent dissociative disorder.? Regarding patient's intrusive thoughts, while many of them seem to be triggered, some of them also seem possibly independent of triggers.? These intrusive thoughts will not resolve unless she gives into her urge to act upon them and so OCD remains on the differential.? She carries intermittent explosive disorder however this may be better explained by other things.? Will leave it for now. DIAGNOSIS: Powerhouse Tender provisionally diagnosed patient with ASD. Regarding ASD. Patient's father and grandmother maintain that she met her milestones in childhood. 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 During childhood she attended [facility] in [place], treatment center typically for people with autism; in [place] when at [facility], she carried a dx of ASD.? As observed on the unit, Patient frequently rocks back and forth, when standing or sitting, while talking to others or calming herself down.? Patient does not have a sense of a person's personal space and will get much to close to a person when talking; she is redirectable and apologizes but she is unaware she is doing it and does not get verbal cues when conversation participant is backing away or trying to end a conversation; though redirectable, she will again get too close, again unaware.? In the milieu with peers, While she will sometimes spend time in the vicinity of others, she is mostly alongside people and not directly interacting with them.? That said, she will directly interact with staff. Patient does make eye contact, however she stares the entire time she is engaged. ? She can have a logical conversation, however she is concrete Patient has a blunted affect and though she can smile and laugh, she is otherwise expressionless with blunted affect. Patient has in flexibility regarding food when it is not as expected patient can get severely dysregulated Patient has some hypo-reactivity to loud noises and crowds of people. Conversely, She does get jokes, even subtle ones. Symptoms have clearly made life functioning extremely difficult.? It is unclear if patient has had neuropsych testing. She did spend time at [facility]. Regarding PTSD: Patient has a history of trauma; details are still unclear but started in childhood.? She has also been institutionalized since a young age, away from her mother and father, feeling abandoned.? She has several regressed behaviors and some child-like interests Regarding Dissociative Disorder:? Patient has episodes of depersonalization and derealization which the typically arise when triggered and during which time she will feel to task from herself, from her body and feel as if things are unreal and dream like, with out a sense of time; after they conclude and she is again in the present, she will have been unaware and subsequently upset about some behaviors she engaged in during the dissociate period. Regarding BPD: Regarding past references to borderline personality disorder, Powerhouse Tender and team agree there have been no axis II traits expressed throughout her time in the hospital. Hospital course: For details see progress note day before discharge. Otherwise, patient was overall in improved behavioral control throughout her stay. There were times when she did end up getting restrained however she developed improved ability to sense when she was starting to lose control and would ask for p.o. medication. Patient found it helpful to use p.o. Xanax and then if needed p.o. Geodon. Sometimes she would ask for IM Geodon wearing that she needed a p.r.n. quickly. Regarding medications: Patient was tapered off of clonazepam; Zyprexa was successfully reduced down from 20 mg b.i.d. to 15 mg in the afternoon and 20 mg at bedtime; would have liked to further reduce it but patient discharged prior. Reduced perphenazine to 3 mg q.h.s. down from 6 mg; would also like to see if this can be discontinued. Significantly lowered Depakote, changing it to extended release and lowering it to 2500 mg q.h.s.; patient had hyperammonemia but this was resolved with lower dose. Patient has improved insight and more self awareness when on the verge of getting dysregulated. Patient did well with a roommate and though had regressed behaviors and was often overly needy, patient demonstrated an ability to be overall appropriate in social situations.? While she remains vulnerable to dysregulated episodes and may again become unsafe, this is a chronic issue that will not resolve with further stay on inpatient unit but is going to take time and extensive outpatient therapy with which patient is eager to engage.? Patient now has support services set up in the community.? Case discussed extensively with her grandmother who feels patient is ready to come home and try and remained stable in the community.? Patient has some medical issues and she and grandmother agree to follow-up with outpatient providers as appointments are being set (see below).? Although patient has chronic mood lability and can get dysregulated, currently she is not in imminent risk for harm to self or others and appropriate for discharge and trial to see if she can remained stable in the community. Bilateral peripheral edema (lower/upper extrem):?more likely Medication side effect (Zyprexa/Depakote)? vs organic origin upper limb edema significantly improved with lowering both Zyprexa and Depakote Complaint of chronic struggles with inspiration: lungs CTA; CXR unremarkable Pulmonary function test: results reviewed, discussed with Dr. Melchor Pulm Consult: -elevated CHARLES and abnromal PFTs with a mild restriction with a mild diffusion impairment. -could be explained by her elevated BMI. -at this time dr. Melchor reports given lab work, it Does not look like she has lupus nor sjogrens nor scleroderma. Her cxr was good. needs a sleep study as an out pt (daytime drowsiness bringing up the possibility of obstructive sleep apnea) does not need an inpt ct scan but should f/up with outpt pulmonary and rheumatology. -in further discussion, Dr. Melchor agrees that CHARLES needs further evaluation, but that currently there is no evidence of an actual connective tissue disease and he is currently not concerned about interstitial lung disease.? At this time thinks that restriction is due to her BMI. CHARLES positive: rheumatology appointment made Amenorrhea: Labs: mostly WNL; will f/u with PCP Medication history from [facility]: Depakote Zyprexa [place] Seroquel Lamictal Ziprasidone Invega Sustenna Abilify, Maintena, Astrada Risperdal BuSpar Lexapro Prozac Effexor Levothyroxine Haldol:? Untolerated side effect Thorazine: Anaphylaxis [place]: Hives Time spent discussing smoking cessation with patient: 3 to 10 minutes Status at Discharge Functional status at discharge: independent ambulation Overall status at discharge: patient is back to baseline Time Spent with Patient Time attestation: Total time managing care of this patient today ____ minutes. Time spent: Greater than 30 minutes Discharge Plan Discharge Anticipated Discharge Date/Time: 11/27/22 14:00 Patient Disposition: Home, Self-Care Discharge Diagnosis: ASD Referrals: Case Management: Henry Keenan ([facility]) [Other] - 11/30/22 1:00 pm (Henry will see you at home; future meetings can be scheduled at home, in the office or Telehealth. ) Therapy: Kel Hernnádez ([facility]) [Other] - 11/29/22 12:45 pm Psych Prescriber: Michelle Cabezas ([facility]) [Other] - 12/04/22 2:00 pm (Telehealth-Michelle will call your phone at the appointment time) Psych Prescriber: Michelle Cabezas ([facility]) [Other] - 12/25/22 10:00 am (Telehealth-Michelle will call your phone at the appointment time) Primary Care: Mariposa Erickson ([facility]) [Other] - 12/13/22 1:00 pm (Appointment is in person at the office ) OBGYN: Malu Daley ([facility]) [Other] - 12/21/22 1:30 pm (Appointment is in person within the main hospital; take the same elevators to the 5th floor, the office is to the right at the end of the long hallway. ) Enamel Buffer: Dr. Diaz ([facility]) [Other] - 12/20/22 1:45 pm (Appointment is in person at their office- within the main hospital, enter through the main entrance and the office is on the first floor to the right once you enter the main lobby. ) Communications Lead: Dr. Joss Nichole ([facility]) [Other] - 02/20/23 2:30 pm (Call every couple weeks to see if there is a sooner appointment, she is on a wait list ) Ruel Bustos MD [Physician] - 1 Week Joss Nichole MD [Physician] - 1 Week (Positive CHARLES screen CHARLES titer 1:640 ) Discharge Medications: Discontinued olanzapine 10 mg Tablet See Rx Instructions .ROUTE .COMPLEX 30 Days Qty: 120 0RF Rx Instructions: take 1 tab at 9:00am; take 1 tab at 1:00pm; take 2 tabs at bedtime trazodone 50 mg Tablet 50 mg PO BEDTIME PRN (Reason: Insomnia) 30 Days Qty: 30 0RF lactulose 20 gram/30 mL Solution 10 g PO BID 30 Days Qty: 900 0RF valproic acid (as sodium salt) 250 mg/5 mL Solution 2,000 mg PO BID 30 Days Qty: 2400 0RF diphenhydramine HCl [Benadryl] 25 mg Capsule 50 mg PO BID 30 Days Qty: 120 0RF paliperidone [Invega] 6 mg Tablet Extended Release 24 Hr 6 mg PO BEDTIME 30 Days Qty: 30 0RF melatonin 5 mg Tablet 5 mg PO BEDTIME PRN (Reason: sleep) 30 Days Qty: 30 0RF clonazepam [Klonopin] 1 mg tablet 1 mg PO TID Qty: 90 0RF No Action multivitamin [Daily-Toshia] Tablet 1 tab PO BEDTIME trazodone 50 mg tablet 1 tab PO BEDTIME PRN (Reason: insomnia) sennosides-docusate sodium [Senna Plus] 8.6-50 mg tablet 1 tab PO BID olanzapine 10 mg tablet 2 tab PO BEDTIME ziprasidone HCl 20 mg capsule 20 mg PO BID PRN (Reason: Agitation) famotidine 20 mg tablet 1 tab PO BEDTIME trazodone 100 mg tablet 1 tab PO BEDTIME diphenhydramine HCl [Banophen] 25 mg capsule 50 mg PO BEDTIME divalproex 500 mg tablet extended release 24 hr 2,500 mg PO BEDTIME hydroxyzine HCl 25 mg tablet 1 tab PO Q6H PRN (Reason: anxiety) olanzapine 15 mg tablet 1 tab PO DAILY@1400 naproxen 500 mg tablet 1 tab PO Q12H PRN (Reason: mild pain) melatonin 5 mg tablet 1 tab PO BEDTIME PRN (Reason: insomnia) clonidine HCl 0.1 mg tablet 1 tab PO BEDTIME alprazolam 0.5 mg tablet 0.5 mg PO TID PRN (Reason: anxiety) Discharge Orders: Discharge Order (Routine); Ordered 11/27/22 Ordered By: Ruel Bustos Diet: Regular diet Activity on Discharge: As tolerated Stand Alone Forms: Patient Portal Discharge page, Community Support Care Plan Goals: Maintain mood and safe behaviors Take medications as prescribed Practice coping skills Continue with outpatient providers and reach out to them as needed Health Concerns: Mood stability and behaviors Bilateral peripheral edema CHARLES positive rule out Restrictive Lung disease Amenorrhea Plan of Treatment: Follow up with your PCP, psychiatric provider and other outpatient providers regarding above concerns Take medications as prescribed Assessment: Risk assessment at time of discharge:? Patient was interviewed prior to discharge and found to be fully oriented and without any SI or HI. Patient has insight and demonstrates good judgment in terms of wanting to pursue treatment. Patient is not in imminent risk of harm to self or others and has a safety plan that includes presenting to the closest ER or calling 911 if feeling unsafe.? Patient has been observed closely by nursing and unit staff throughout admission; patient has not engaged in any behaviors that suggest dangerousness to self or others and has demonstrated appropriate behaviors and impulse control Discharge Date/Time: 11/27/22 14:38
[2022-11-27] MEDS: Ziprasidone 20 MG CAPSULE PO (14:21)
[2022-11-27] MEDS: ALPRAZolam 0.5 MG TABLET PO (14:21)
== END 2022-11-27 14:38 | disposition home or self-care (01) | DRG 758 ==
LOC: HO.ED 19:52 → HO.PM5 10-15 15:41
PROVIDERS: Clinical Nurse Specialist Psychiatric/Mental Health, Adult; Hospitalist; Physician Assistant; Admitting Provider Psychiatry & Neurology Psychiatry; Emergency Provider Internal Medicine; Visit Provider Psychiatry & Neurology Psychiatry
DX: F63.81 Intermittent explosive disorder (principal); R45.851 Suicidal ideations; E66.2 Morbid (severe) obesity with alveolar hypoventilation; F25.9 Schizoaffective disorder, unspecified; F43.10 Post-traumatic stress disorder, unspecified; F84.0 Autistic disorder; S92.512A Displaced fracture of proximal phalanx of left lesser toe(s), initial encounter for closed fracture; X58.XXXA Exposure to other specified factors, initial encounter; R76.0 Raised antibody titer; J98.4 Other disorders of lung; N91.2 Amenorrhea, unspecified; Z91.52 Personal history of nonsuicidal self-harm; Z78.1 Physical restraint status; Z20.822 Contact with and (suspected) exposure to COVID-19; Z68.35 Body mass index [BMI] 35.0-35.9, adult; Z88.8 Allergy status to other drugs, medicaments and biological substances; Z79.899 Other long term (current) drug therapy
CPT/HCPCS: 0241U; 36415; 71045; 73620; 80053; 80076; 80164; 80307; 81001; 81025; 82140; 82248; 82607; 82627; 82670; 82681; 83001; 83036; 83516; 83880; 84146; 84402; 84403; 84439; 84443; 85379; 85652; 86038; 86039; 86140; 86160; 86225; 86235; 86617; 86618; 86666; 86753; 87635; 87651; 90715; 93005; 93970; 99285; J2060; J3486

== ENCOUNTER 2022-11-30 16:20 | Inpatient (IN) | payer OTHER, SELFPAY ==
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
--- NOTE | 2022-11-30 16:28 | ED.PSYCH ---
HPI - Psych General Chief Complaint: Psychiatric Symptoms Stated Complaint: crisis Time Seen by Provider: 11/30/22 16:28 Source: patient and EMS Mode of arrival: EMS Limitations: no limitations History of Present Illness HPI Narrative: 22 year old female?complex psychiatric history with diagnosis of schizoaffective disorder, bipolar disorder, borderline personality, GERD, hypothyroidism, lower extremity edema disorder coming into the emergency department via ambulance?but in by [facility] and then the community she was evaluated at home patient reports voices in her head that told her to lay down in the street patient felt like she needed to get help so she came in via EMS patient denies any drugs alcohol or tobacco use. Patient denies any tactile or visual hallucinations but she is sitting she is hearing her own thoughts. Patient has intermittent suicidal ideation with a plan to lay on the road. Patient denies homicidal ideation. Patient denies any other medical complaints today. Patient has had multiple psychiatric admissions within the past year. Related Data Home Medications Medication Instructions Recorded Confirmed alprazolam 0.5 mg tablet 0.5 mg PO TID PRN anxiety 11/30/22 11/30/22 clonidine HCl 0.1 mg tablet 1 tab PO BEDTIME 11/30/22 11/30/22 diphenhydramine HCl 25 mg capsule 50 mg PO BEDTIME 11/30/22 11/30/22 (Banophen) divalproex 500 mg tablet,extended 2,500 mg PO BEDTIME 11/30/22 11/30/22 release 24 hr famotidine 20 mg tablet 1 tab PO BEDTIME 11/30/22 11/30/22 hydroxyzine HCl 25 mg tablet 1 tab PO Q6H PRN anxiety 11/30/22 11/30/22 melatonin 5 mg tablet 1 tab PO BEDTIME PRN insomnia 11/30/22 11/30/22 multivitamin (Daily-Toshia tablet) 1 tab PO BEDTIME 11/30/22 11/30/22 naproxen 500 mg tablet 1 tab PO Q12H PRN mild pain 11/30/22 11/30/22 olanzapine 10 mg tablet 2 tab PO BEDTIME 11/30/22 11/30/22 olanzapine 15 mg tablet 1 tab PO DAILY@1400 11/30/22 11/30/22 sennosides 8.6 mg-docusate sodium 1 tab PO BID 11/30/22 11/30/22 50 mg tablet (Senna Plus) trazodone 100 mg tablet 1 tab PO BEDTIME 11/30/22 11/30/22 trazodone 50 mg tablet 1 tab PO BEDTIME PRN insomnia 11/30/22 11/30/22 ziprasidone HCl 20 mg capsule 20 mg PO BID PRN Agitation 11/30/22 11/30/22 Allergies Allergy/AdvReac Type Severity Reaction Status Date / Time chlorpromazine Allergy Anaphylaxis Verified 09/29/22 18:48 [From Thorazine] nut - unspecified Allergy Anxiety Verified 09/29/22 21:28 haloperidol [From Haldol] AdvReac Agitated Verified 09/29/22 19:27 lithium AdvReac Hives Verified 09/29/22 21:28 Review of Systems Review of Systems: Constitutional : No Weight loss, No Fever, No Chills, No Fatigue, No Malaise ENT/Mouth : No sore throat, No Rhinorrhea Eyes: No Eye Pain, No Swelling, No Redness Cardiovascular : No Chest Pain, No SOB, No Dyspnea on Exertion, No Orthopnea, No Edema, No Palpitations Respiratory : No Cough, No Sputum, No Wheezing Gastrointestinal : No Nausea, No Vomiting, No Diarrhea, No Constipation, No abdominal Pain, No Hematochezia, No Melena Genitourinary : No Dysuria, No Urinary Frequency, No Hematuria, Musculoskeletal : No joint pain, No Myalgias, No Joint Swelling Skin : No Skin Lesions, No rash Neuro : No Weakness, No Numbness, No Dizziness, No Headache Psych : No Anxiety/Panic, No Depression, +SI All other systems reviewed and are negative Yes all other systems are reviewed and are negative [facility] Past Medical History Attestation statement: The following information was validated with the patient. Source: old records reviewed and nursing notes reviewed Medical History (Updated 11/30/22 @ 20:44 by VICTOR MANUEL Nelson) Amenorrhea CHARLES positive Autism Chronic restrictive lung disease Dyspnea Has daytime drowsiness Homicidal behavior Peripheral edema PTSD (post-traumatic stress disorder) Schizoaffective disorder Suicidal behavior Social History Social History Household Members: Family Housing: House Do you presently have visiting nurse or other home services: No Alcohol intake: never Patient Tobacco Use Status: Never used Tobacco Smoked in Last 30 Days: No Use of substances other than those prescribed or required for medical reasons: No Advance Directives: No Advance Directives Information Provided: No Patient : No service: No Sexual orientation: Did not discuss Physical Exam Vital Signs: Vital Signs: Last Vital Signs Temp 98.2 F 11/30/22 16:33 Pulse 101 H 11/30/22 16:33 Resp 16 11/30/22 18:00 BP 115/75 11/30/22 16:33 Pulse Ox 97 11/30/22 16:33 O2 Del Method 11/30/22 16:33 BMI result Body Mass Index 25.7 vss Appearance: Alert.? Oriented X3.? No acute distress.? Head: Normocephalic, atraumatic, no step-offs or deformities Eyes: Pupils equal, round and reactive to light.? Neck: Normal inspection.? Neck supple.? CVS: Normal heart rate and rhythm.? Pulses normal.? Respiratory: No respiratory distress.? Breath sounds normal.? Abdomen: Soft and nontender.? Skin: Skin warm and dry.? Normal skin color.? Normal skin turgor.? Extremities: No lower extremity edema.? No calf ttp. 5/5 strength to bilateral upper and lower extremities Neuro: Oriented X 3.? No motor deficit.? No sensory deficit. CN 2-12 intact Course Reevaluation(s) Reevaluation #1: CBC appears to be within patient's baseline, chronically low platelet count. Chemistry with no acute electrolyte abnormalities requiring intervention. Patient is noted to have a chronically elevated valproic acid level today 107.6 valproic acid lateral on 11/23/2022 104.4. Salicylates, acetaminophen and ethanol negative. COVID negative. UA, urine toxicology pending. At this time patient will be placed into physician observation to allow more time to be evaluated by the behavioral health team. At time observation was started patient common cooperative no acute distress stable vital signs will continue to monitor. Time: 20:43 Medications Administered Generic Name Dose Route Start Last Admin Trade Name Freq PRN Reason Stop Dose Admin Alprazolam 0.5 mg 11/30/22 17:00 11/30/22 20:27 Alprazolam 0.5 Mg Tablet PO Not Given TID OSCAR Diphenhydramine HCl 50 mg 11/30/22 21:00 11/30/22 20:14 Diphenhydramine Hcl 25 Mg Capsule PO 50 mg BEDTIME OSCAR Administration Divalproex Sodium 2,500 mg 11/30/22 21:00 11/30/22 20:13 Divalproex Sodium Er 500 Mg Tab.Er.24h PO 2,500 mg BEDTIME OSCAR Administration Famotidine 20 mg 11/30/22 21:00 11/30/22 20:14 Famotidine 20 Mg Tablet PO 20 mg BEDTIME OSCAR Administration Multivitamins/Vitamin C 1 tab 11/30/22 21:00 11/30/22 20:14 Multivitamin Tablet PO 1 tab BEDTIME OSCAR Administration Naproxen 500 mg 11/30/22 19:13 11/30/22 20:24 Naproxen 500 Mg Tablet PO 500 mg Q12H PRN Administration mild pain Olanzapine 20 mg 11/30/22 21:00 11/30/22 20:14 Olanzapine 10 Mg Tablet PO 20 mg BEDTIME OSCAR Administration Senna/Docusate Sodium 1 tab 11/30/22 21:00 11/30/22 20:14 Sennosides/Docusate Sodium Tablet PO 1 tab BID OSCAR Administration Trazodone HCl 100 mg 11/30/22 21:00 11/30/22 20:14 Trazodone Hcl 100 Mg Tablet PO 100 mg BEDTIME OSCAR Administration Medical Decision Making Medical Decision Making [facility] Narrative: 1638 22-year-old female with previous psych history presents with intermittent suicidal ideations Physical exam benign. However she had 2+ chronic nonpitting edema. Differentials include recurrent schizophrenic disorder versus autism versus PTSD versus depression unlikely metabolic causes Plan is medical clearance and evaluation by the care team. Dr. Gonsalez psych recommends 0.5 mg Xanax p.o. t.i.d. which has worked well for her in previous visits Differential Diagnosis Differential Diagnoses: The differential diagnosis associated with the presentation includes Differentials include recurrent schizophrenic disorder versus autism versus PTSD versus depression unlikely metabolic causes Admission/Observation Consideration of admission/observation: Escalation of care including admission/observation considered Will likely require psychiatric admission Lab Data [facility] Lab Attestation statement: I reviewed the patient's lab results. 11/30/22 17:19 11/30/22 17:19 Labs: Lab Results 11/30/22 11/30/22 11/30/22 Range/Units 17:01 17:19 17:19 WBC 6.1 (4.8-10.8) X10*3/uL RBC 3.84 L (4.20-5.50) X10*6/uL Hgb 12.2 (12.0-16.0) g/dl Hct 36.0 L (37.0-47.0) % MCV 93.8 (80.0-98.0) fL MCH 31.8 (27.0-33.0) pg MCHC 33.9 (31.0-35.0) g/dl RDW 12.5 (11.0-16.0) % Plt Count 148 L D (160-400) X10*3/uL MPV 10.7 (9.4-12.3) fL Immature Gran % (Auto) 0.0 (0.0-0.4) % Neut % (Auto) 28.3 L (45-73) % Lymph % (Auto) 50.3 H (20-40) % [place] % (Auto) 12.0 H (2-11) % Eos % (Auto) 8.9 H (0-4) % Baso % (Auto) 0.5 (0-2) % Lymph # (Auto) 3.1 (1.2-4.9) X10*3/uL [place] # (Auto) 0.7 (0.1-1.2) X10*3/uL Eos # (Auto) 0.5 H (0.0-0.4) X10*3/uL Baso # (Auto) 0.0 (0.0-0.2) X10*3/uL Abs Immat Gran (auto) 0.00 (0.00-0.03) X10*3/uL Absolute Neuts (auto) 1.7 L (2.0-8.3) x10*3/uL Absolute Nucleated RBC 0.000 (0.0-0.012) X10*3/uL Nucleated RBC % (auto) 0.0 (0.0-0.2) /100WBC Sodium (135-145) mmol/L Potassium (3.3-5.1) mmol/L Chloride (96-108) mmol/L Carbon Dioxide (22-29) mmol/L Anion Gap (12-20) BUN (9-16) mg/dL Creatinine (0.5-1.4) mg/dL Estim Creat Clear Calc Estimated GFR Random Glucose (60-115) mg/dL Calcium (8.4-10.2) mg/dL Magnesium (1.6-2.6) mg/dL Total Bilirubin (0.0-1.0) mg/dL AST (5-31) U/L ALT (0-31) U/L Alkaline Phosphatase (39-117) U/L Total Protein (6.5-8.0) g/dL Albumin (3.5-5.0) g/dL Salicylates (15-30) mg/dL Acetaminophen (<30) mcg/mL Valproic Acid 107.6 H (50.0-100.0) mcg/mL Ethyl Alcohol mg/dL COVID-19 ([facility]) Negative (Negative) COVID-19 Clin Com See Note 11/30/22 11/30/22 Range/Units 17:19 17:19 WBC (4.8-10.8) X10*3/uL RBC (4.20-5.50) X10*6/uL Hgb (12.0-16.0) g/dl Hct (37.0-47.0) % MCV (80.0-98.0) fL MCH (27.0-33.0) pg MCHC (31.0-35.0) g/dl RDW (11.0-16.0) % Plt Count (160-400) X10*3/uL MPV (9.4-12.3) fL Immature Gran % (Auto) (0.0-0.4) % Neut % (Auto) (45-73) % Lymph % (Auto) (20-40) % [place] % (Auto) (2-11) % Eos % (Auto) (0-4) % Baso % (Auto) (0-2) % Lymph # (Auto) (1.2-4.9) X10*3/uL [place] # (Auto) (0.1-1.2) X10*3/uL Eos # (Auto) (0.0-0.4) X10*3/uL Baso # (Auto) (0.0-0.2) X10*3/uL Abs Immat Gran (auto) (0.00-0.03) X10*3/uL Absolute Neuts (auto) (2.0-8.3) x10*3/uL Absolute Nucleated RBC (0.0-0.012) X10*3/uL Nucleated RBC % (auto) (0.0-0.2) /100WBC Sodium 139 (135-145) mmol/L Potassium 4.6 (3.3-5.1) mmol/L Chloride 108 (96-108) mmol/L Carbon Dioxide 23 (22-29) mmol/L Anion Gap 13 (12-20) BUN 31 H (9-16) mg/dL Creatinine 0.78 (0.5-1.4) mg/dL Estim Creat Clear Calc 137.5 Estimated GFR > 60 Random Glucose 102 (60-115) mg/dL Calcium 9.3 (8.4-10.2) mg/dL Magnesium 1.7 (1.6-2.6) mg/dL Total Bilirubin 0.3 (0.0-1.0) mg/dL AST 28 (5-31) U/L ALT 12 (0-31) U/L Alkaline Phosphatase 48 (39-117) U/L Total Protein 6.9 (6.5-8.0) g/dL Albumin 3.9 (3.5-5.0) g/dL Salicylates < 5.0 L (15-30) mg/dL Acetaminophen < 17 (<30) mcg/mL Valproic Acid (50.0-100.0) mcg/mL Ethyl Alcohol < 10 mg/dL COVID-19 ([facility]) (Negative) COVID-19 Clin Com Core Measures AMI core measures followed: Yes Measure exclusions: not indicated Critical Care Time Critical Care Time Critical Care Time: No Discharge Plan Discharge Clinical Impression: Chronic schizophrenia, Autism Patient Disposition: Still a Patient Prescriptions: No Action multivitamin [Daily-Toshia] Tablet 1 tab PO BEDTIME trazodone 50 mg tablet 1 tab PO BEDTIME PRN (Reason: insomnia) sennosides-docusate sodium [Senna Plus] 8.6-50 mg tablet 1 tab PO BID olanzapine 10 mg tablet 2 tab PO BEDTIME ziprasidone HCl 20 mg capsule 20 mg PO BID PRN (Reason: Agitation) famotidine 20 mg tablet 1 tab PO BEDTIME trazodone 100 mg tablet 1 tab PO BEDTIME diphenhydramine HCl [Banophen] 25 mg capsule 50 mg PO BEDTIME divalproex 500 mg tablet extended release 24 hr 2,500 mg PO BEDTIME hydroxyzine HCl 25 mg tablet 1 tab PO Q6H PRN (Reason: anxiety) olanzapine 15 mg tablet 1 tab PO DAILY@1400 naproxen 500 mg tablet 1 tab PO Q12H PRN (Reason: mild pain) melatonin 5 mg tablet 1 tab PO BEDTIME PRN (Reason: insomnia) clonidine HCl 0.1 mg tablet 1 tab PO BEDTIME alprazolam 0.5 mg tablet 0.5 mg PO TID PRN (Reason: anxiety) Interventions: [place]-Suicide Risk Severity Scale Last Done: 11/30/22 18:31
[2022-11-30 16:33] VITALS: BP 115/75; PULSE 101; RESP 16; TEMP 36.8; O2SAT 97; BMI 25.7
[2022-11-30] MEDS: ALPRAZolam 0.5 MG TABLET PO (16:55)
[2022-11-30 17:26] LABS: MANUAL DIFF FLAG NO
[2022-11-30 17:28] LABS: Basophils Percent Auto 0.5 % (0-2); Eosinophils Absolute Auto 0.5 X10*3/uL (0.0-0.4); Eosinophils Percent Auto 8.9 % (0-4); Hemoglobin 12.2 g/dl (12.0-16.0); Lymphocytes Absolute Auto 3.1 X10*3/uL (1.2-4.9); Lymphocytes Percent Auto 50.3 % (20-40); Mean Corpuscular HGB Conc 33.9 g/dl (31.0-35.0); Mean Corpuscular Hemoglobin 31.8 pg (27.0-33.0); Mean Corpuscular Volume 93.8 fL (80.0-98.0); Mean Platelet Volume 10.7 fL (9.4-12.3); Monocytes Absolute Auto 0.7 X10*3/uL (0.1-1.2); Neutrophils Absolute Auto 1.7 x10*3/uL (2.0-8.3); Neutrophils Percent Auto 28.3 % (45-73); Platelet Count 148 X10*3/uL (160-400); Red Blood Count 3.84 X10*6/uL (4.20-5.50); Red Cell Distribution Width 12.5 % (11.0-16.0); White Blood Count 6.1 X10*3/uL (4.8-10.8)
[2022-11-30 17:43] LABS: COVID-19 Test Negative (Negative); IDNOW Serial# 55D5AD1C
[2022-11-30 17:43] LABS: Valproate 107.6 mcg/mL (50.0-100.0)
[2022-11-30 17:48] LABS: Acetaminophen LAB < 17 mcg/mL (<30); Alanine Aminotransferase 12 U/L (0-31); Albumin Level 3.9 g/dL (3.5-5.0); Alkaline Phosphatase 48 U/L (39-117); Anion Gap 13 (12-20); Aspartate Amino Transferase 28 U/L (5-31); Bilirubin Total 0.3 mg/dL (0.0-1.0); Blood Urea Nitrogen 31 mg/dL (9-16); Calcium 9.3 mg/dL (8.4-10.2); Carbon Dioxide 23 mmol/L (22-29); Chloride 108 mmol/L (96-108); Creatinine Clr Calc Pharmacy 137.5; Estimated Glomerular Filt Rate > 60; Ethanol < 10 mg/dL; Glucose Random 102 mg/dL (60-115); Magnesium 1.7 mg/dL (1.6-2.6); Potassium 4.6 mmol/L (3.3-5.1); Salicylate < 5.0 mg/dL (15-30); Sodium 139 mmol/L (135-145); Total Protein 6.9 g/dL (6.5-8.0)
[2022-11-30 18:00] VITALS: RESP 16
--- NOTE | 2022-11-30 18:33 | PC.NURSE ---
Pt reporting dysregulation upon arrival to the ED,pt stated that she took a geodon 20mg prior to arrival and felt as though this has been ineffective. This RN reached out to Dr. Bustos to find out what medication had been effective for pt on the floor. Dr. Bustos recommended xanax 0.5mg po tid, ED provider made aware, med order obtained and pt medicated per DEC. Pt currently visibly calmer, reporting alternately that she does not want to be here, and that she would like to go to . Per social work pt had been an expect from [facility] where she was endorsing SI with plan to lay in the road in traffic. Pt denied SI upon arrival to the unit, stated she was having thoughts of self harm and was afraid she would act on them. Denies HI.
[2022-11-30] MEDS: Divalproex Sodium ER 500 MG TAB.ER.24H 2500 MG PO (20:13)
[2022-11-30] MEDS: OLANZapine 10 MG TABLET 20 MG PO (20:14)
[2022-11-30] MEDS: diphenhydrAMINE HCL 25 MG CAPSULE 50 MG PO (20:14)
[2022-11-30] MEDS: Sennosides/Docusate Sodium TABLET 1 TAB PO (20:14)
[2022-11-30] MEDS: Multivitamin TABLET 1 TAB PO (20:14)
[2022-11-30] MEDS: traZODone HCL 100 MG TABLET PO (20:14)
[2022-11-30] MEDS: Famotidine 20 MG TABLET PO (20:14)
[2022-11-30] MEDS: NaPROXEN 500 MG TABLET PO (20:24)
[2022-11-30] MEDS: Melatonin 3 MG TABLET 6 MG PO (23:31)
[2022-11-30 23:33] VITALS: BP 107/74; PULSE 98; RESP 17; TEMP 36.6; O2SAT 97
[2022-11-30 23:46] LABS: Appearance Urine Clear; Color Urine Yellow; Glucose Urine UA Negative (Negative); Leukocyte Esterase Urine Negative (Negative); Nitrite Urine Negative (Negative); Urine Blood Negative (Negative); Urine Ketones Negative (Negative); Urine Protein Negative (Neg-Trace)
[2022-11-30 23:48] LABS: UPreg QC Valid YES; Urine Pregnancy NEGATIVE (NEGATIVE)
[2022-12-01] LABS: Amphetamine Screen Urine Not Detected (Not Detect); Barbiturates, Urine Not Detected (Not Detect); Benzodiazepines Screen Urine POSITIVE (Not Detect); Cannabinoid Screen Urine Not Detected (Not Detect); Cocaine Screen Urine Not Detected (Not Detect); Fentanyl, urine Not Detected (Not Detect); Opiate Screen Urine Not Detected (Not Detect); Phencyclidine Screen Urine Not Detected (Not Detect)
--- NOTE | 2022-12-01 05:35 | PC.NURSE ---
Patient slept through the night, no distress observed/reported, behavior non concerning, medication compliant, VSS, care team consult ordered/pending evaluation in the morning, will continue to monitor.
[2022-12-01] MEDS: Sennosides/Docusate Sodium TABLET 1 TAB PO ×2 (09:42→20:09)
[2022-12-01] MEDS: ALPRAZolam 0.5 MG TABLET PO ×2 (09:43→20:09)
--- NOTE | 2022-12-01 12:23 | MHC.CARE ---
Pt is currently IPLOC. Dr. Bustos was consulted and stated that if she no longer endorsed SI during [facility] that fabiano should be contacted to discuss discharge.Care team spoke to fabiano prior to meeting with Marilynn who stated that she was comfortable having her return if Marilynn was. Pt continued to endorse SI and [facility] was notified of her staying here for the night.
[2022-12-01] MEDS: OLANZapine 7.5 MG TABLET 15 MG PO (14:13)
[2022-12-01 19:47] VITALS: BP 106/74; PULSE 105; RESP 20; TEMP 36.1; O2SAT 97
[2022-12-01] MEDS: Divalproex Sodium ER 500 MG TAB.ER.24H 2500 MG PO (20:08)
[2022-12-01] MEDS: diphenhydrAMINE HCL 25 MG CAPSULE 50 MG PO (20:09)
[2022-12-01] MEDS: traZODone HCL 100 MG TABLET PO (20:09)
[2022-12-01] MEDS: OLANZapine 10 MG TABLET 20 MG PO (20:09)
[2022-12-01] MEDS: cloNIDine HCL 0.1 MG TABLET PO (20:09)
[2022-12-01] MEDS: Melatonin 3 MG TABLET 6 MG PO (20:10)
[2022-12-01] MEDS: Famotidine 20 MG TABLET PO (20:10)
[2022-12-01] MEDS: Multivitamin TABLET 1 TAB PO (20:10)
[2022-12-01] MEDS: Ziprasidone 20 MG CAPSULE PO (20:15)
[2022-12-02 06:42] VITALS: BP 101/65; PULSE 93; RESP 16; TEMP 36.8; O2SAT 97
[2022-12-02] MEDS: ALPRAZolam 0.5 MG TABLET PO ×3 (09:56→22:23)
[2022-12-02] MEDS: Sennosides/Docusate Sodium TABLET 1 TAB PO ×2 (09:56→20:51)
[2022-12-02] MEDS: OLANZapine 7.5 MG TABLET 15 MG PO (13:31)
[2022-12-02 19:57] VITALS: BP 100/60; PULSE 91; RESP 20; TEMP 36.1; O2SAT 98
[2022-12-02] MEDS: cloNIDine HCL 0.1 MG TABLET PO (20:50)
[2022-12-02] MEDS: diphenhydrAMINE HCL 25 MG CAPSULE 50 MG PO (20:50)
[2022-12-02] MEDS: Famotidine 20 MG TABLET PO (20:50)
[2022-12-02] MEDS: Multivitamin TABLET 1 TAB PO (20:51)
[2022-12-02] MEDS: Divalproex Sodium ER 500 MG TAB.ER.24H 2500 MG PO (20:51)
[2022-12-02] MEDS: traZODone HCL 100 MG TABLET PO (20:51)
[2022-12-02] MEDS: OLANZapine 10 MG TABLET 20 MG PO (20:52)
--- NOTE | 2022-12-02 22:25 | PC.NURSE ---
Pt. reporting anxiety over possible inpatient placement tomorrow. Pt. up and having difficulty sleeping. Pt requesting PRN medication for anxiety and sleep. Medicated with Xanax per MAR, pending effectiveness. Will continue to monitor.
--- NOTE | 2022-12-03 | ECG_ITS ---
Test Reason : PSYCH MEDS Blood Pressure : / mmHG Vent. Rate : 078 BPM Atrial Rate : 078 BPM P-R Int : 148 ms QRS Dur : 074 ms QT Int : 402 ms P-R-T Axes : 044 066 055 degrees QTc Int : 458 ms Normal sinus rhythm Normal ECG When compared with ECG of 17-NOV-2022 20:56, Nonspecific T wave abnormality no longer evident in Inferior leads Nonspecific T wave abnormality, improved in Anterior leads Referred By: Yasmin Shelton Electronically Signed By:David Rutherford
[2022-12-03 04:13] VITALS: BP 116/71; PULSE 80; RESP 18; TEMP 36.8; O2SAT 99
--- NOTE | 2022-12-03 06:14 | PC.NURSE ---
Pt. asleep at 2330. Pt. medication compliant. Pt. is pending inpatient bed. VSS. No issues to report. Will continue to monitor.
[2022-12-03] MEDS: Sennosides/Docusate Sodium TABLET 1 TAB PO ×2 (10:23→19:58)
[2022-12-03 10:43] LABS: COVID-19 Test Negative (Negative); IDNOW Serial# BCCEAD1C
[2022-12-03 10:54] VITALS: BP 103/78; PULSE 87; RESP 16; TEMP 36.4; O2SAT 96
[2022-12-03] MEDS: OLANZapine 7.5 MG TABLET 15 MG PO (13:24)
[2022-12-03] MEDS: ALPRAZolam 0.5 MG TABLET PO ×2 (16:44→23:35)
[2022-12-03] MEDS: Ziprasidone 20 MG CAPSULE PO (16:44)
[2022-12-03] MEDS: Ziprasidone Mesylate 20 MG VIAL IM (18:46)
--- NOTE | 2022-12-03 19:18 | PC.ADMIT ---
pt is a 22 year old female who presented to [facility] ED after experiencing thoughts of SI and wanting to harm herself. pt has PMH of inpatient hospital stays. during admission, pt stopped snf through, and said she can't use a pen because she feels like harming herself. pt did not sign the rest of the papers. pt took PRNs and had IM geodon. start treatment plan and promote safety
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
[2022-12-03 19:50] VITALS: BP 116/68; PULSE 100; RESP 18; TEMP 36.1; O2SAT 97
[2022-12-03] MEDS: diphenhydrAMINE HCL 25 MG CAPSULE 50 MG PO (19:58)
[2022-12-03] MEDS: cloNIDine HCL 0.1 MG TABLET PO (19:59)
[2022-12-03] MEDS: traZODone HCL 100 MG TABLET PO (19:59)
[2022-12-03] MEDS: Famotidine 20 MG TABLET PO (19:59)
[2022-12-03] MEDS: OLANZapine 10 MG TABLET 20 MG PO (20:00)
[2022-12-03] MEDS: Divalproex Sodium ER 500 MG TAB.ER.24H 2500 MG PO (20:00)
[2022-12-03] MEDS: Multivitamin TABLET 1 TAB PO (20:00)
[2022-12-03] MEDS: hydrOXYzine HCL 25 MG TABLET PO (23:35)
[2022-12-04 08:58] LABS: Estimated Average Glucose 94 mg/dL; Hemoglobin A1c % 4.9 %
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
[2022-12-04 09:23] LABS: Cholesterol 146 mg/dL; HDL Cholesterol 39 mg/dL; LDL Cholesterol Calculated 90 mg/dl; Triglycerides 89 mg/dL
[2022-12-04 09:37] LABS: Free T4 (Free Thyroxine) 0.93 ng/dL (0.71-1.85); Thyroid Stimulating Hormone 4.76 uIU/mL (0.32-4.0)
[2022-12-04 09:52] LABS: Folate 15.3 ng/mL (> or = 4.0); Vitamin B12 562 pg/mL (200-900)
[2022-12-04] MEDS: OLANZapine 7.5 MG TABLET 15 MG PO (14:31)
[2022-12-04] MEDS: cloNIDine HCL 0.1 MG TABLET PO ×2 (14:32→19:33)
[2022-12-04 14:33] VITALS: BP 126/82; PULSE 108; RESP 16
[2022-12-04] MEDS: ALPRAZolam 0.5 MG TABLET PO (16:23)
[2022-12-04] MEDS: NaPROXEN 500 MG TABLET PO (16:24)
[2022-12-04 18:00] VITALS: BP 105/57; PULSE 96; TEMP 35.9
[2022-12-04] MEDS: Divalproex Sodium ER 500 MG TAB.ER.24H 2500 MG PO (19:29)
[2022-12-04] MEDS: diphenhydrAMINE HCL 25 MG CAPSULE 50 MG PO (19:30)
[2022-12-04] MEDS: OLANZapine 10 MG TABLET 20 MG PO (19:30)
[2022-12-04] MEDS: traZODone HCL 100 MG TABLET PO (19:32)
[2022-12-04] MEDS: Multivitamin TABLET 1 TAB PO (19:32)
[2022-12-04] MEDS: Famotidine 20 MG TABLET PO (19:33)
[2022-12-04] MEDS: Sennosides/Docusate Sodium TABLET 1 TAB PO (19:33)
[2022-12-04] MEDS: Acetaminophen 325 MG TABLET 650 MG PO (21:17)
[2022-12-04] MEDS: Melatonin 3 MG TABLET 6 MG PO (23:12)
[2022-12-04] MEDS: traZODone HCL 50 MG TABLET PO (23:12)
[2022-12-05] MEDS: hydrOXYzine HCL 25 MG TABLET PO ×2 (03:03→19:46)
[2022-12-05 08:31] VITALS: BP 98/66; PULSE 62; RESP 16; TEMP 36.6; O2SAT 98
[2022-12-05] MEDS: cloNIDine HCL 0.1 MG TABLET PO ×3 (09:23→19:45)
[2022-12-05] MEDS: Sennosides/Docusate Sodium TABLET 1 TAB PO ×2 (09:23→19:45)
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
[2022-12-05] MEDS: OLANZapine 5 MG TABLET PO (14:22)
[2022-12-05 18:00] VITALS: BP 98/60; PULSE 78; RESP 16; TEMP 36.6; O2SAT 99
[2022-12-05] MEDS: NaPROXEN 500 MG TABLET PO (18:28)
[2022-12-05] MEDS: OLANZapine 10 MG TABLET 20 MG PO (19:43)
[2022-12-05] MEDS: diphenhydrAMINE HCL 25 MG CAPSULE 50 MG PO (19:44)
[2022-12-05] MEDS: Famotidine 20 MG TABLET PO (19:44)
[2022-12-05] MEDS: Divalproex Sodium ER 500 MG TAB.ER.24H 2500 MG PO (19:44)
[2022-12-05] MEDS: Multivitamin TABLET 1 TAB PO (19:45)
[2022-12-05] MEDS: traZODone HCL 100 MG TABLET PO (19:45)
[2022-12-06 07:00] VITALS: BMI 37.0
[2022-12-06 09:53] VITALS: BP 133/67; PULSE 85; RESP 18; TEMP 36.1
[2022-12-06] MEDS: Sennosides/Docusate Sodium TABLET 1 TAB PO ×2 (09:54→20:19)
[2022-12-06] MEDS: cloNIDine HCL 0.1 MG TABLET PO ×3 (09:54→20:18)
[2022-12-06] MEDS: NaPROXEN 500 MG TABLET PO (13:38)
[2022-12-06] MEDS: OLANZapine 5 MG TABLET PO (13:38)
[2022-12-06] MEDS: FLUoxetine HCl 10 MG CAPSULE PO (17:01)
[2022-12-06 18:00] VITALS: BP 95/62; PULSE 64; TEMP 36.2; O2SAT 98
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
[2022-12-06] MEDS: traZODone HCL 100 MG TABLET PO (20:19)
[2022-12-06] MEDS: diphenhydrAMINE HCL 25 MG CAPSULE 50 MG PO (20:19)
[2022-12-06] MEDS: Divalproex Sodium ER 500 MG TAB.ER.24H 2500 MG PO (20:20)
[2022-12-06] MEDS: Famotidine 20 MG TABLET PO (20:20)
[2022-12-06] MEDS: Multivitamin TABLET 1 TAB PO (20:20)
[2022-12-06] MEDS: OLANZapine 10 MG TABLET 20 MG PO (20:20)
[2022-12-07 08:45] VITALS: BP 88/56; PULSE 64; RESP 18; TEMP 36.2; O2SAT 96
[2022-12-07] MEDS: FLUoxetine HCl 10 MG CAPSULE PO (10:49)
[2022-12-07] MEDS: Sennosides/Docusate Sodium TABLET 1 TAB PO ×2 (10:49→20:58)
[2022-12-07] MEDS: cloNIDine HCL 0.1 MG TABLET PO ×3 (10:49→21:00)
[2022-12-07] MEDS: NaPROXEN 500 MG TABLET PO (14:41)
[2022-12-07] MEDS: OLANZapine 5 MG TABLET PO (14:41)
[2022-12-07 14:47] VITALS: BP 123/69
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
[2022-12-07] MEDS: Ziprasidone 20 MG CAPSULE PO (18:42)
[2022-12-07] MEDS: ALPRAZolam 0.5 MG TABLET PO (20:21)
[2022-12-07 20:55] VITALS: BP 113/62; PULSE 76; TEMP 35.9
[2022-12-07] MEDS: Famotidine 20 MG TABLET PO (20:58)
[2022-12-07] MEDS: traZODone HCL 100 MG TABLET PO (20:58)
[2022-12-07] MEDS: diphenhydrAMINE HCL 25 MG CAPSULE 50 MG PO (20:58)
[2022-12-07] MEDS: Multivitamin TABLET 1 TAB PO (20:59)
[2022-12-07] MEDS: OLANZapine 10 MG TABLET 20 MG PO (21:00)
[2022-12-07] MEDS: Divalproex Sodium ER 500 MG TAB.ER.24H 2500 MG PO (21:00)
[2022-12-08 08:13] VITALS: BP 96/59; PULSE 86; RESP 16; TEMP 36.7; O2SAT 98
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
[2022-12-08] MEDS: FLUoxetine HCl 10 MG CAPSULE PO (09:04)
[2022-12-08] MEDS: cloNIDine HCL 0.1 MG TABLET PO ×3 (09:04→21:23)
[2022-12-08] MEDS: Sennosides/Docusate Sodium TABLET 1 TAB PO ×2 (09:04→21:19)
[2022-12-08] MEDS: OLANZapine 5 MG TABLET PO (14:15)
[2022-12-08] MEDS: ALPRAZolam 0.5 MG TABLET PO (16:31)
[2022-12-08] MEDS: Ziprasidone 20 MG CAPSULE PO (16:33)
[2022-12-08] MEDS: OLANZapine 10 MG TABLET 20 MG PO (21:17)
[2022-12-08] MEDS: Divalproex Sodium ER 500 MG TAB.ER.24H 2500 MG PO (21:17)
[2022-12-08] MEDS: Famotidine 20 MG TABLET PO (21:18)
[2022-12-08] MEDS: diphenhydrAMINE HCL 25 MG CAPSULE 50 MG PO (21:18)
[2022-12-08] MEDS: traZODone HCL 100 MG TABLET PO (21:19)
[2022-12-08] MEDS: Multivitamin TABLET 1 TAB PO (21:19)
[2022-12-08 21:25] VITALS: BP 102/55; PULSE 73; TEMP 37.1
[2022-12-08] MEDS: Melatonin 3 MG TABLET 6 MG PO (23:35)
[2022-12-08] MEDS: hydrOXYzine HCL 25 MG TABLET PO (23:35)
[2022-12-09 08:04] VITALS: BP 94/62; PULSE 65; RESP 16; TEMP 36.8; O2SAT 97
[2022-12-09] MEDS: FLUoxetine HCl 10 MG CAPSULE PO (08:50)
[2022-12-09] MEDS: Sennosides/Docusate Sodium TABLET 1 TAB PO ×2 (08:50→20:47)
[2022-12-09] MEDS: cloNIDine HCL 0.1 MG TABLET PO ×3 (08:50→20:50)
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
[2022-12-09 15:11] VITALS: BP 109/72
[2022-12-09] MEDS: OLANZapine 5 MG TABLET PO (15:11)
[2022-12-09 18:00] VITALS: BP 97/59; PULSE 76; TEMP 36.7
[2022-12-09] MEDS: NaPROXEN 500 MG TABLET PO (18:03)
[2022-12-09] MEDS: ALPRAZolam 0.5 MG TABLET PO (19:49)
[2022-12-09] MEDS: Multivitamin TABLET 1 TAB PO (20:37)
[2022-12-09] MEDS: Famotidine 20 MG TABLET PO (20:37)
[2022-12-09] MEDS: diphenhydrAMINE HCL 25 MG CAPSULE 50 MG PO (20:38)
[2022-12-09] MEDS: traZODone HCL 100 MG TABLET PO (20:46)
[2022-12-09] MEDS: OLANZapine 10 MG TABLET 20 MG PO (20:47)
[2022-12-09] MEDS: Divalproex Sodium ER 500 MG TAB.ER.24H 2500 MG PO (20:47)
[2022-12-10 09:06] VITALS: BP 105/59; PULSE 97; RESP 16; TEMP 36.3; O2SAT 98
[2022-12-10] MEDS: cloNIDine HCL 0.1 MG TABLET PO ×3 (09:33→21:48)
[2022-12-10] MEDS: FLUoxetine HCl 10 MG CAPSULE PO (09:33)
[2022-12-10] MEDS: Sennosides/Docusate Sodium TABLET 1 TAB PO ×2 (09:33→21:50)
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
[2022-12-10] MEDS: OLANZapine 5 MG TABLET PO (14:07)
[2022-12-10] MEDS: Divalproex Sodium ER 500 MG TAB.ER.24H 2500 MG PO (21:47)
[2022-12-10] MEDS: traZODone HCL 100 MG TABLET PO (21:48)
[2022-12-10] MEDS: OLANZapine 10 MG TABLET 20 MG PO (21:48)
[2022-12-10] MEDS: Famotidine 20 MG TABLET PO (21:50)
[2022-12-10] MEDS: Multivitamin TABLET 1 TAB PO (21:50)
[2022-12-10] MEDS: diphenhydrAMINE HCL 25 MG CAPSULE 50 MG PO (21:52)
[2022-12-11 09:13] VITALS: BP 118/77; PULSE 98; RESP 18; TEMP 36.2; O2SAT 97
[2022-12-11] MEDS: Sennosides/Docusate Sodium TABLET 1 TAB PO ×2 (09:16→20:25)
[2022-12-11] MEDS: cloNIDine HCL 0.1 MG TABLET PO ×3 (09:16→20:26)
[2022-12-11] MEDS: FLUoxetine HCl 10 MG CAPSULE PO (09:16)
[2022-12-11] MEDS: ALPRAZolam 0.5 MG TABLET PO (10:30)
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
[2022-12-11] MEDS: OLANZapine 5 MG TABLET PO (15:04)
[2022-12-11 15:13] VITALS: BP 132/89
[2022-12-11 18:00] VITALS: BP 104/60; PULSE 69; RESP 18; TEMP 36.3; O2SAT 98
[2022-12-11] MEDS: Divalproex Sodium ER 500 MG TAB.ER.24H 2500 MG PO (20:23)
[2022-12-11] MEDS: Multivitamin TABLET 1 TAB PO (20:23)
[2022-12-11] MEDS: Famotidine 20 MG TABLET PO (20:25)
[2022-12-11] MEDS: OLANZapine 10 MG TABLET 20 MG PO (20:25)
[2022-12-11] MEDS: diphenhydrAMINE HCL 25 MG CAPSULE 50 MG PO (20:26)
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
[2022-12-12 09:48] VITALS: BP 115/55; PULSE 95; RESP 16; TEMP 36.6; O2SAT 95
[2022-12-12] MEDS: cloNIDine HCL 0.1 MG TABLET PO (09:50)
[2022-12-12] MEDS: FLUoxetine HCl 10 MG CAPSULE PO (09:50)
[2022-12-12] MEDS: Sennosides/Docusate Sodium TABLET 1 TAB PO (09:50)
== END 2022-12-12 11:29 | disposition home or self-care (01) | DRG 758 ==
LOC: HO.ED 20:44 → HO.PM5 12-03 15:53
PROVIDERS: Clinical Nurse Specialist Psychiatric/Mental Health, Adult; Emergency Medicine; Physician Assistant; Admitting Provider Psychiatry & Neurology Psychiatry; Emergency Provider Emergency Medicine; Visit Provider Psychiatry & Neurology Psychiatry
DX: F63.81 Intermittent explosive disorder (principal); R45.851 Suicidal ideations; F84.0 Autistic disorder; F43.10 Post-traumatic stress disorder, unspecified; Z20.822 Contact with and (suspected) exposure to COVID-19; Z88.8 Allergy status to other drugs, medicaments and biological substances; Z79.899 Other long term (current) drug therapy
CPT/HCPCS: 36415; 73620; 80053; 80061; 80143; 80164; 80179; 80307; 81003; 81025; 82077; 82607; 82746; 83036; 83735; 84439; 84443; 85025; 87635; 93005; 99285; J3486; S9485

== ENCOUNTER 2022-12-16 23:27 | Inpatient (IN) | payer OTHER, SELFPAY ==
[2022-12-16 23:41] VITALS: BP 116/76; BP 119/83; PULSE 96; PULSE 98; RESP 16; TEMP 36.6; O2SAT 98; BMI 25.7
[2022-12-17 00:15] LABS: Appearance Urine Clear; Color Urine Dark Yellow; Glucose Urine UA Negative (Negative); Leukocyte Esterase Urine Trace (Negative); Nitrite Urine Negative (Negative); PH 5.5 (5.0-9.0); Specific Gravity - Urine >= 1.030 (1.005-1.025); UMIC TRIGGER UACC YES; Urine Blood Negative (Negative); Urine Ketones Trace mg/dL (Negative); Urine Protein Negative (Neg-Trace)
[2022-12-17 00:20] LABS: UPreg QC Valid YES; Urine Pregnancy NEGATIVE (NEGATIVE)
[2022-12-17 00:21] LABS: Bacteria Urine Trace (None Seen); Hyaline Casts Urine 0-2 /LPF (0-2); RBC Urine 0-2 /HPF (0-2); UACC Culture Trigger YES
[2022-12-17 00:27] LABS: COVID-19 Test Negative (Negative); IDNOW Serial# 6674DD1D
[2022-12-17 00:33] LABS: Amphetamine Screen Urine Not Detected (Not Detect); Barbiturates, Urine Not Detected (Not Detect); Benzodiazepines Screen Urine POSITIVE (Not Detect); Cannabinoid Screen Urine Not Detected (Not Detect); Cocaine Screen Urine Not Detected (Not Detect); Fentanyl, urine POSITIVE (Not Detect); Opiate Screen Urine Not Detected (Not Detect); Phencyclidine Screen Urine Not Detected (Not Detect)
[2022-12-17 00:43] LABS: Alanine Aminotransferase 18 U/L (0-31); Albumin Level 4.1 g/dL (3.5-5.0); Alkaline Phosphatase 46 U/L (39-117); Anion Gap 12 (12-20); Aspartate Amino Transferase 31 U/L (5-31); Bilirubin Total 0.2 mg/dL (0.0-1.0); Blood Urea Nitrogen 38 mg/dL (9-16); Calcium 9.7 mg/dL (8.4-10.2); Carbon Dioxide 22 mmol/L (22-29); Chloride 109 mmol/L (96-108); Creatinine Clr Calc Pharmacy 129.3; Estimated Glomerular Filt Rate > 60; Ethanol < 10 mg/dL; Glucose Random 105 mg/dL (60-115); Potassium 4.4 mmol/L (3.3-5.1); Sodium 139 mmol/L (135-145); Total Protein 7.4 g/dL (6.5-8.0)
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
[2022-12-17] MEDS: traZODone HCL 100 MG TABLET PO ×2 (01:11→22:58)
[2022-12-17] MEDS: OLANZapine 10 MG TABLET 20 MG PO ×2 (01:11→22:59)
[2022-12-17] MEDS: cloNIDine HCL 0.1 MG TABLET PO ×2 (01:11→22:58)
[2022-12-17] MEDS: Multivitamin TABLET 1 TAB PO ×2 (01:11→22:58)
[2022-12-17] MEDS: diphenhydrAMINE HCL 25 MG CAPSULE 50 MG PO ×2 (01:11→22:57)
[2022-12-17] MEDS: Divalproex Sodium ER 500 MG TAB.ER.24H 2500 MG PO ×2 (01:18→22:57)
[2022-12-17] MEDS: Sennosides/Docusate Sodium TABLET 1 TAB PO ×3 (01:19→22:58)
[2022-12-17] MEDS: Famotidine 20 MG TABLET PO ×2 (01:19→22:59)
[2022-12-17] MEDS: ALPRAZolam 0.5 MG TABLET PO ×2 (01:39→23:12)
[2022-12-17 06:00] VITALS: RESP 16
--- NOTE | 2022-12-17 06:41 | PC.NURSE ---
pt slept during the shift with out any difficulties
--- NOTE | 2022-12-17 10:06 | MHC.CARE ---
attempted to meet with patient, she begins to engage and then falls back asleep each time. t/w will attempt to assess pt. when she is rousable.
[2022-12-17] MEDS: FLUoxetine HCl 10 MG CAPSULE PO (11:47)
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
[2022-12-17 14:43] VITALS: BP 112/71; PULSE 67; RESP 16; TEMP 37; O2SAT 96
--- NOTE | 2022-12-17 18:53 | PC.NURSE ---
nurse to nurse given to m5 RN
[2022-12-17 19:25] VITALS: BP 110/66; PULSE 100; RESP 17; TEMP 36.5; O2SAT 96
[2022-12-17 19:43] VITALS: BP 112/70; PULSE 106; RESP 14; TEMP 36.7; O2SAT 99
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
[2022-12-17 22:55] VITALS: BP 109/69; PULSE 107; RESP 16
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
[2022-12-18] MEDS: Sennosides/Docusate Sodium TABLET 1 TAB PO ×2 (12:14→22:58)
[2022-12-18] MEDS: cloNIDine HCL 0.1 MG TABLET PO ×3 (12:15→22:57)
[2022-12-18] MEDS: FLUoxetine HCl 20 MG CAPSULE PO (12:15)
[2022-12-18 12:31] VITALS: BP 118/72; PULSE 93; RESP 16; TEMP 36.1; O2SAT 95
[2022-12-18] MEDS: OLANZapine 5 MG TABLET PO (15:06)
[2022-12-18 15:09] VITALS: BP 119/74
[2022-12-18 22:45] VITALS: BP 106/58; PULSE 84; TEMP 36.2
[2022-12-18] MEDS: Divalproex Sodium ER 500 MG TAB.ER.24H 2500 MG PO (22:56)
[2022-12-18] MEDS: diphenhydrAMINE HCL 25 MG CAPSULE 50 MG PO (22:56)
[2022-12-18] MEDS: traZODone HCL 100 MG TABLET PO (22:57)
[2022-12-18] MEDS: Famotidine 20 MG TABLET PO (22:57)
[2022-12-18] MEDS: Multivitamin TABLET 1 TAB PO (22:58)
[2022-12-18] MEDS: OLANZapine 10 MG TABLET 20 MG PO (22:58)
[2022-12-18] MEDS: ALPRAZolam 0.5 MG TABLET PO (23:15)
--- NOTE | 2022-12-19 09:34 | P.PNPSI_ITS ---
Subjective Subjective Date of Service: 12/19/22 Reason For Visit: Schizoaffective disorder,depressed,Int. Explosive Interim History: Met with patient; discussed with team; family meeting; CBT therapy session pt still depressed but SI has subsided; pt insightful into feeling triggered, an d intellectual knows he grandma loves her but in the moment as automatic thought that she's unloveable, that person will abandon her. Engaged in CBT exercise examining automatic thoughts and how it triggers feelings and behaviors with which patient thought was very helpful. Discussed treatment options post discharge; discussed medications and patient agrees to discontinue Zyprexa in the afternoon. Mental Status Exam Mental Status Exam Narrative: Pt is alert and oriented; behavior is cooperative, calm; patient is not in distress; dressed in casual attire, mood is described as okay and affect congruent; eye contact appropriate; Speech is normal rate; normal volume and prosody; no psychomotor retardation present; thought process is organized and goal directed; Thought content is on past trauma; treatment; otherwise pertinent to relevant topics and without any delusional content, paranoid ideations or grandiosity; no SI; no HI. No AVH and there is no evidence of perceptual disturbance.. Patients insight and judgment are have improved, getting close to baseline. Diagnostics Vital Signs (24Hr): Vital Signs - 24 hr 12/18/22 12:31 12/18/22 15:09 12/18/22 22:45 Temperature 96.9 F 97.1 F Pulse Rate 93 84 Respiratory Rate 16 Blood Pressure 118/72 119/74 106/58 L Pulse Oximetry 95 Oxygen Delivery Method Room Air BMI result Body Mass Index 25.7 Labs 12/17/22 06:00 12/17/22 00:16 Labs: Laboratory Results - last 48 hr 12/17/22 06:00 WBC Cancelled RBC Cancelled Hgb Cancelled Hct Cancelled MCV Cancelled MCH Cancelled MCHC Cancelled RDW Cancelled Plt Count Cancelled MPV Cancelled Immature Gran % (Auto) Cancelled Neut % (Auto) Cancelled Lymph % (Auto) Cancelled [place] % (Auto) Cancelled Eos % (Auto) Cancelled Baso % (Auto) Cancelled Lymph # (Auto) Cancelled [place] # (Auto) Cancelled Eos # (Auto) Cancelled Baso # (Auto) Cancelled Abs Immat Gran (auto) Cancelled Absolute Neuts (auto) Cancelled Absolute Nucleated RBC Cancelled Nucleated RBC % (auto) Cancelled Medications Medications Current Medications Acetaminophen (Acetaminophen 325 Mg Tablet) 650 mg PO Q6H PRN PRN Reason: Headache/Pain Mild Scale (1-3) Al Hydroxide/Mg Hydroxide (Magnesium Hydrox/Alum Hydrox 30 Ml Oral.Susp) 30 ml PO Q6H PRN PRN Reason: Heartburn/Nausea Alprazolam (Alprazolam 0.5 Mg Tablet) 0.5 mg PO TID PRN PRN Reason: anxiety Last Admin: 12/18/22 23:15 Dose: 0.5 mg Clonidine HCl (Clonidine Hcl 0.1 Mg Tablet) 0.1 mg PO TID [facility]; Protocol Last Admin: 12/18/22 22:57 Dose: 0.1 mg Diphenhydramine HCl (Diphenhydramine Hcl 25 Mg Capsule) 50 mg PO BEDTIME [facility] Last Admin: 12/18/22 22:56 Dose: 50 mg Divalproex Sodium (Divalproex Sodium Er 500 Mg Tab.Er.24h) 2,500 mg PO BEDTIME [facility] Last Admin: 12/18/22 22:56 Dose: 2,500 mg Famotidine (Famotidine 20 Mg Tablet) 20 mg PO BEDTIME [facility] Last Admin: 12/18/22 22:57 Dose: 20 mg Fluoxetine HCl (Fluoxetine Hcl 20 Mg Capsule) 20 mg PO DAILY [facility] Last Admin: 12/18/22 12:15 Dose: 20 mg Hydroxyzine HCl (Hydroxyzine Hcl 25 Mg Tablet) 25 mg PO Q6H PRN PRN Reason: Anxiety Magnesium Hydroxide (Milk Of Magnesia 30 Ml Oral.Susp) 30 ml PO DAILY PRN PRN Reason: Constipation Melatonin (Melatonin 3 Mg Tablet) 6 mg PO BEDTIME PRN PRN Reason: insomnia Multivitamins/Vitamin C (Multivitamin Tablet) 1 tab PO BEDTIME [facility] Last Admin: 12/18/22 22:58 Dose: 1 tab Naproxen (Naproxen 500 Mg Tablet) 500 mg PO Q12H PRN PRN Reason: mild pain Olanzapine (Olanzapine 5 Mg Tablet) 5 mg PO DAILY@1400 [facility] Last Admin: 12/18/22 15:06 Dose: 5 mg Olanzapine (Olanzapine 10 Mg Tablet) 20 mg PO BEDTIME [facility] Last Admin: 12/18/22 22:58 Dose: 20 mg Senna/Docusate Sodium (Sennosides/Docusate Sodium Tablet) 1 tab PO BID [facility] Last Admin: 12/18/22 22:58 Dose: 1 tab Trazodone HCl (Trazodone Hcl 50 Mg Tablet) 50 mg PO BEDTIME PRN PRN Reason: insomnia Trazodone HCl (Trazodone Hcl 100 Mg Tablet) 100 mg PO BEDTIME [facility] Last Admin: 12/18/22 22:57 Dose: 100 mg Ziprasidone (Ziprasidone 20 Mg Capsule) 20 mg PO BID PRN PRN Reason: Agitation Allergies Allergies Allergy/AdvReac Type Severity Reaction Status Date / Time chlorpromazine Allergy Anaphylaxis Verified 12/13/22 13:24 [From Thorazine] nut - unspecified Allergy Anxiety Verified 12/13/22 13:24 haloperidol [From Haldol] AdvReac Agitated Verified 12/13/22 13:24 lithium AdvReac Hives Verified 12/13/22 13:24 Assessment & Plan Assessment & Plan (1) Autism: Status: Acute Code(s): F84.0 - Autistic disorder (2) PTSD (post-traumatic stress disorder): Status: Suspected Code(s): F43.10 - Post-traumatic stress disorder, unspecified (3) Intermittent explosive disorder: Status: Acute Code(s): F63.81 - Intermittent explosive disorder (4) CHARLES positive: Status: Acute Code(s): R76.8 - Other specified abnormal immunological findings in serum (5) Chronic restrictive lung disease: Status: Acute Code(s): J98.4 - Other disorders of lung Plan Patient is a bright, kind 22-year-old female, well known to this service, with history of Autism, PTSD recently discharged from on 12/11/22 (and recently dc'd from [facility] after 5 years) who re-presents 6 days later for resurgence of suicidal ideation with plan to run into the street and the face of being triggered by PTSD. Impression: pt stayed out of hospital longer than previously (6 days) showing improved ability to cope w/ triggers; pt's symptoms are chronic and will take much time to stabilize; sometimes exacerbations can resolve in ED, but other times, she needs a longer stay to re-stabilize. Discussed case with team, ZACHARY who knows patient well and it's agreed that Currently pt requires admission for safety. 3/1 engaged in CBT therapy exercise which patient found helpful; family meeting with grandmother who remains very supportive. PLAN: CV q15 min Continue PRozac to 20mg (which has been planed; for PTSD) Discontinued AFternoon Zyprexa 5mg (it seems likely pt does not need) continue home meds management: PRN's: Xanax, +-geodon Patient educated on: diagnosis, medication risk/benefits and therapeutic strategies Informed Consent: understands Reason for contiued inpatient stay Substantial Risk for: rapid decompensation Time Spent With Patient Time: Total time managing care of this patient today ____ minutes.
[2022-12-19] MEDS: FLUoxetine HCl 20 MG CAPSULE PO (12:24)
[2022-12-19] MEDS: Sennosides/Docusate Sodium TABLET 1 TAB PO ×2 (12:24→20:00)
--- NOTE | 2022-12-19 13:16 | PC.NURSE ---
Pt reports broken skin on bilateral inner thighs. Appears to be due to rubbing of hospital issued pants. Pt reports [facility] is bringing in new pts for pt to wear. Bacitracin and bandaid applied. notified.
[2022-12-19 14:45] VITALS: BP 106/59; PULSE 82; RESP 16; O2SAT 96
[2022-12-19] MEDS: OLANZapine 5 MG TABLET PO (14:46)
[2022-12-19] MEDS: cloNIDine HCL 0.1 MG TABLET PO ×2 (14:46→19:59)
[2022-12-19 16:56] VITALS: BP 128/68; PULSE 78; RESP 16; TEMP 36.6; O2SAT 98
[2022-12-19] MEDS: OLANZapine 10 MG TABLET 20 MG PO (19:58)
[2022-12-19] MEDS: traZODone HCL 100 MG TABLET PO (19:59)
[2022-12-19] MEDS: Multivitamin TABLET 1 TAB PO (19:59)
[2022-12-19] MEDS: Famotidine 20 MG TABLET PO (20:00)
[2022-12-19] MEDS: diphenhydrAMINE HCL 25 MG CAPSULE 50 MG PO (20:00)
[2022-12-19] MEDS: Divalproex Sodium ER 500 MG TAB.ER.24H 2500 MG PO (20:00)
--- NOTE | 2022-12-19 23:09 | PC.NURSE ---
Patient c/o chafing on bilateral inner thighs. Tw checked the area and noted dime sized areas on each inner thigh with Stage 1 appearance. Bacitracin was applied by the patient. She was also willing to change into a looser fitting [facility] and remove snug leggings to help prevent further chafing. Patient was also assisted with putting 2 pillows between her knees to reduce pressure on upper thighs.
[2022-12-20] MEDS: Sennosides/Docusate Sodium TABLET 1 TAB PO ×2 (08:25→22:02)
[2022-12-20] MEDS: FLUoxetine HCl 20 MG CAPSULE PO (08:25)
[2022-12-20] MEDS: cloNIDine HCL 0.1 MG TABLET PO ×3 (08:25→22:03)
[2022-12-20 09:03] VITALS: BP 100/59; PULSE 76; RESP 20; TEMP 36.4; O2SAT 97
--- NOTE | 2022-12-20 13:32 | P.PNPSI_ITS ---
Subjective Subjective Date of Service: 12/20/22 Reason For Visit: Schizoaffective disorder,depressed,Int. Explosive Interim History: Met with patient; discussed in teams; Patient reports feeling little better in that mood has improved; she also says she is feeling more calm in general. Discussed automatic thoughts, feelings and triggers and patient appreciates this new way of thinking finding it helpful. Patient reports some blistering on in her thigh due to pants rubbing; nurse will inspect area Mental Status Exam Mental Status Exam Narrative: Pt is alert and oriented; behavior is cooperative, calm; patient is not in distress; dressed in casual attire, mood is described as okay and affect congruent; eye contact appropriate; Speech is normal rate; normal volume and prosody; no psychomotor retardation present; thought process is organized and goal directed; Thought content is on past trauma; treatment; otherwise pertinent to relevant topics and without any delusional content, paranoid ideations or grandiosity; no SI; no HI. No AVH and there is no evidence of perceptual disturbance.. Patients insight and judgment are have improved, getting close to baseline. Diagnostics Vital Signs (24Hr): Vital Signs - 24 hr 12/19/22 14:45 12/19/22 16:56 12/20/22 09:03 Temperature 97.8 F 97.6 F Pulse Rate 82 78 76 Respiratory Rate 16 16 20 Blood Pressure 106/59 L 128/68 100/59 L Pulse Oximetry 96 98 97 Oxygen Delivery Method Room Air Room Air Room Air BMI result Body Mass Index 25.7 Labs 12/17/22 06:00 12/17/22 00:16 Medications Medications Current Medications Acetaminophen (Acetaminophen 325 Mg Tablet) 650 mg PO Q6H PRN PRN Reason: Headache/Pain Mild Scale (1-3) Al Hydroxide/Mg Hydroxide (Magnesium Hydrox/Alum Hydrox 30 Ml Oral.Susp) 30 ml PO Q6H PRN PRN Reason: Heartburn/Nausea Alprazolam (Alprazolam 0.5 Mg Tablet) 0.5 mg PO TID PRN PRN Reason: anxiety Last Admin: 12/18/22 23:15 Dose: 0.5 mg Clonidine HCl (Clonidine Hcl 0.1 Mg Tablet) 0.1 mg PO TID [facility]; Protocol Last Admin: 12/20/22 08:25 Dose: 0.1 mg Diphenhydramine HCl (Diphenhydramine Hcl 25 Mg Capsule) 50 mg PO BEDTIME [facility] Last Admin: 12/19/22 20:00 Dose: 50 mg Divalproex Sodium (Divalproex Sodium Er 500 Mg Tab.Er.24h) 2,500 mg PO BEDTIME [facility] Last Admin: 12/19/22 20:00 Dose: 2,500 mg Famotidine (Famotidine 20 Mg Tablet) 20 mg PO BEDTIME [facility] Last Admin: 12/19/22 20:00 Dose: 20 mg Fluoxetine HCl (Fluoxetine Hcl 20 Mg Capsule) 20 mg PO DAILY [facility] Last Admin: 12/20/22 08:25 Dose: 20 mg Hydroxyzine HCl (Hydroxyzine Hcl 25 Mg Tablet) 25 mg PO Q6H PRN PRN Reason: Anxiety Magnesium Hydroxide (Milk Of Magnesia 30 Ml Oral.Susp) 30 ml PO DAILY PRN PRN Reason: Constipation Melatonin (Melatonin 3 Mg Tablet) 6 mg PO BEDTIME PRN PRN Reason: insomnia Multivitamins/Vitamin C (Multivitamin Tablet) 1 tab PO BEDTIME [facility] Last Admin: 12/19/22 19:59 Dose: 1 tab Naproxen (Naproxen 500 Mg Tablet) 500 mg PO Q12H PRN PRN Reason: mild pain Olanzapine (Olanzapine 10 Mg Tablet) 20 mg PO BEDTIME [facility] Last Admin: 12/19/22 19:58 Dose: 20 mg Senna/Docusate Sodium (Sennosides/Docusate Sodium Tablet) 1 tab PO BID [facility] Last Admin: 12/20/22 08:25 Dose: 1 tab Trazodone HCl (Trazodone Hcl 50 Mg Tablet) 50 mg PO BEDTIME PRN PRN Reason: insomnia Trazodone HCl (Trazodone Hcl 100 Mg Tablet) 100 mg PO BEDTIME [facility] Last Admin: 12/19/22 19:59 Dose: 100 mg Ziprasidone (Ziprasidone 20 Mg Capsule) 20 mg PO BID PRN PRN Reason: Agitation Allergies Allergies Allergy/AdvReac Type Severity Reaction Status Date / Time chlorpromazine Allergy Anaphylaxis Verified 12/13/22 13:24 [From Thorazine] nut - unspecified Allergy Anxiety Verified 12/13/22 13:24 haloperidol [From Haldol] AdvReac Agitated Verified 12/13/22 13:24 lithium AdvReac Hives Verified 12/13/22 13:24 Assessment & Plan Assessment & Plan (1) Autism: Status: Acute Code(s): F84.0 - Autistic disorder (2) PTSD (post-traumatic stress disorder): Status: Suspected Code(s): F43.10 - Post-traumatic stress disorder, unspecified (3) Intermittent explosive disorder: Status: Acute Code(s): F63.81 - Intermittent explosive disorder (4) CHARLES positive: Status: Acute Code(s): R76.8 - Other specified abnormal immunological findings in serum (5) Chronic restrictive lung disease: Status: Acute Code(s): J98.4 - Other disorders of lung Plan Patient is a bright, kind 22-year-old female, well known to this service, with history of Autism, PTSD recently discharged from on 12/11/22 (and recently dc'd from [facility] after 5 years) who re-presents 6 days later for resurgence of suicidal ideation with plan to run into the street and the face of being triggered by PTSD. Impression: pt stayed out of hospital longer than previously (6 days) showing improved ability to cope w/ triggers; pt's symptoms are chronic and will take much time to stabilize; sometimes exacerbations can resolve in ED, but other times, she needs a longer stay to re-stabilize. Discussed case with team, SW who knows patient well and it's agreed that Currently pt requires admission for safety. 3/ engaged in CBT therapy exercise which patient found helpful; family meeting with grandmother who remains very supportive. Plan: CV Q 15 minute checks 1. ASD/PTSD/intermittent explosive disorder: Continue Depakote ER 2500 mg q.h.s. Continue Zyprexa 20 mg q.h.s. Increased Prozac to 20mg Continue Xanax 0.5 mg t.i.d. p.r.n. for agitation; may give alone or with Geodon Geodon 20 mg b.i.d. p.r.n. for agitation Clonidine 0.1 mg t.i.d. (increased from bedtime only Trazodone 100 mg q.h.s. DC zyprexa 5mg in afternoon DC perphenazine (patient has no history of psychotic illness and very likely does not need this medication) 2. CHARLES positive appointment made with Rheumatology May -daytime fatigue; b/l peripheral edema; mild dyspnea on exertion Discussed with Dr. Hamilton who recommends adding following labs: Urine protein creatinine ratio Rheumatoid factor CCP antibody 3. Bilateral peripheral edema (lower/upper extrem):? Medication side effect (Zyprexa/Depakote)?? vs organic origin some reduction w/ lowering of medications Zyprexa and depakote r/u autoimune 4. Complaint of chronic struggles with inspiration: lungs CTA; CXR unremarkable Pulmonary function test: results reviewed, discussed with Dr. Melchor Pulm Consult: -elevated CHARLES and abnromal PFTs with a mild restriction with a mild diffusion impairment. -could be explained by her elevated BMI. -at this time dr. Melchor reports given lab work, it Does not look like she has lupus nor sjogrens nor scleroderma. Her cxr was good. needs a sleep study as an out pt (daytime drowsiness bringing up the possibility of obstructive sleep apnea) does not need an inpt ct scan but should f/up with outpt pulmonary and rheumatology. -in further discussion, Dr. Melchor agrees that CHARLES needs further evaluation, but that currently there is no evidence of an actual connective tissue disease and he is currently not concerned about interstitial lung disease.? At this time thinks that restriction is due to her BMI. -rheumatology appointment being established for outpatient 5. Amenorrhea: Patient did have menses a few years ago while on control; has not had it since control discontinued about 2 years ago Labs: mostly WNL; will f/u with PCP/director of sales and marketing PSYCHIATRIC IMPRESSION/DIAGNOSIS:. Primary dx: ASD. Patient's father and grandmother maintain that she met her milestones in childhood. Also reported is a history being diagnosed with a sensory in tegration disorder in childhood.? During childhood she attended [facility] in [place], treatment center typically for people with autism; in [place] when at [facility], she carried a dx of ASD.? As observed on the unit, Patient frequently rocks back and forth, when standing or sitting, while talking to others or calming herself down.? Patient does not have a sense of a person's personal space and will get much to close to a person when talking; she is redirectable and apologizes but she is unaware she is doing it and does not get verbal cues when conversation participant is backing away or trying to end a conversation; though redirectable, she will again get too close, again unaware.? In the milieu with peers, While she will sometimes spend time in the vicinity of others, she is mostly alongside people and not directly interacting with them.? That said, she will directly interact with staff. Patient does make eye contact, however she stares the entire time she is engaged. ? She can have a logical conversation, however she is concrete Patient has a blunted affect and though she can smile and laugh, she is otherwise expressionless with blunted affect. Patient has in flexibility regarding food when it is not as expected patient can get severely dysregulated Patient has some hypo-reactivity to loud noises and crowds of people. Conversely, She does get jokes, even subtle ones. Symptoms have clearly made life functioning extremely difficult.? It is unclear if patient has had neuropsych testing. She did spend time at [facility]. Regarding PTSD: Patient has a history of trauma; details are still unclear but started in childhood; trauma during while at [facility] psychiatric unit.? She has also been institutionalized since a young age, away from her mother and father, feeling abandoned.? She can have several regressed behaviors and some child-like interests Regarding Dissociative Disorder:? Patient has episodes of depersonalization and derealization which the typically arise when triggered and during which time she will feel to task from herself, from her body and feel as if things are unreal and dream like, with out a sense of time; after they conclude and she is again in the present, she will have been unaware and subsequently upset about some behaviors she engaged in during the dissociate period. Not BPD: Regarding past references to borderline personality disorder, [facility] and team agree there have been no axis II traits expressed throughout her time in the hospital No psychotic illness: no psychotic symptoms past or present Impression: Patient is a fun, intelligent, cooperative and friendly person. When she gets triggered by something she can decompensate severely, dissociate and become physically aggressive.? It has been difficult to determine her diagnosis as she has had a life time of psychiatric illness which includes being in either inpatient or residential settings for most of her life and most recently, for the past 5 years, residing in a [facility].? From [facility], she carries the diagnosis of Schizoaffective disorder and mention of borderline personality disorder.? Given the longevity that patient has been at this treatment center, director underwriter sales is slow to change her diagnosis.? However, Patient has been treated by [facility] staff either in the ED or on the inpatient unit for about 30 days and at this time, [facility] cannot conclude that patient has a psychotic illness.? She is linear, logical, articulate, insightful and organized in her thinking; she is organized in her behaviors.? Patient denies any history of paranoid or delusional thoughts, has not expressed any delusional/paranoid thinking and none could be solicited.? Patient consistently denies any auditory or visual hallucinations and denies she has ever had any history of such; rather she reports getting intrusive thoughts that provoke strong urges to act upon the thought and will not let up unless she does so.? Patient is unclear herself if these intrusive thoughts occur are only when specifically triggered or if they can also arbitrarily manifest; since on the unit, they seem to predominantly follow a specific trigger that she can identify, but not always.? Patient has never appeared to be internally preoccupied.? [facility] reviewed the notes available from [facility] and there is no mention of psychotic or manic symptoms that director underwriter sales could find.? That said, she is on 2 antipsychotic medications and has been for quite some time, as well as Depakote and clonazepam and it remains possible that off these medications, she would indeed have psychotic symptoms. Initially, director underwriter sales left patient with diagnosis of schizoaffective disorder but made it provisional. At this time, schizoaffective seems less and less likely; will make it a rule out.? [facility] provisionally diagnosed patient with ASD, which needs to be further examined. Patient has PTSD, either with dissociative episodes or with an independent dissociative disorder.? Regarding patient's intrusive thoughts, while many of them seem to be triggered, some of them also seem possibly independent of triggers.? These intrusive thoughts will not re solve unless she gives into her urge to act upon them and so OCD remains on the differential.? She carries intermittent explosive disorder however this may be better explained by other things.? Will leave it for now.. Patient educated on: diagnosis, medication risk/benefits and therapeutic strategies Informed Consent: understands Reason for contiued inpatient stay Substantial Risk for: rapid decompensation Time Spent With Patient Time: Total time managing care of this patient today ____ minutes.
[2022-12-20 14:57] VITALS: BMI 37.4
[2022-12-20 14:58] VITALS: BP 114/62; PULSE 72
[2022-12-20 16:04] VITALS: BP 99/59; PULSE 78; RESP 20; TEMP 35.9; O2SAT 98
[2022-12-20] MEDS: diphenhydrAMINE HCL 25 MG CAPSULE 50 MG PO (22:01)
[2022-12-20] MEDS: Divalproex Sodium ER 500 MG TAB.ER.24H 2500 MG PO (22:01)
[2022-12-20] MEDS: Famotidine 20 MG TABLET PO (22:01)
[2022-12-20] MEDS: Multivitamin TABLET 1 TAB PO (22:03)
[2022-12-20] MEDS: traZODone HCL 100 MG TABLET PO (22:03)
[2022-12-20] MEDS: OLANZapine 10 MG TABLET 20 MG PO (22:03)
[2022-12-20] MEDS: ALPRAZolam 0.5 MG TABLET PO (22:09)
--- NOTE | 2022-12-20 23:40 | PC.NURSE ---
PT highly agitated, punching self in head, punching zamora, requesting Geodon IM. Offered Geodon PO which increased agitation. Geodon 20mg IM ordered by Dr. Ethel Horner
[2022-12-20] MEDS: Ziprasidone Mesylate 20 MG VIAL IM (23:48)
[2022-12-21 08:00] VITALS: BP 119/53; PULSE 71; RESP 12; TEMP 36.1; O2SAT 96
[2022-12-21] MEDS: FLUoxetine HCl 20 MG CAPSULE PO (09:02)
[2022-12-21] MEDS: Sennosides/Docusate Sodium TABLET 1 TAB PO ×2 (09:02→23:09)
[2022-12-21] MEDS: cloNIDine HCL 0.1 MG TABLET PO ×3 (09:02→23:08)
[2022-12-21 14:13] VITALS: BP 98/54; PULSE 78; O2SAT 96
[2022-12-21] MEDS: Zinc Oxide (Triple Paste) 56.7 GM OINT 1 APPL TOPICAL ×2 (15:04→21:52)
--- NOTE | 2022-12-21 16:56 | P.PNPSI_ITS ---
Subjective Subjective Date of Service: 12/21/22 Reason For Visit: Schizoaffective disorder,depressed,Int. Explosive Interim History: Met with patient; discussed in teams Engaged in CBT therapy discussion about automatic thoughts; patient shared incident last night where she thought so it was upset with her, felt badly about herself and started getting triggered. Patient said asked for PRNs but there was a delay in receiving them and she got very upset, punch the wall punched her face. Patient ended up getting Geodon IM though this was not a restraint. Patient shared that at the time she was unaware of her automatic thought and only in hindsight can she see the progression towards self-harm. However she is encouraged that she realizes these connections and will continue to work on them. -patient feels fine without afternoon Zyprexa Complains of continued chafing on inner thighs; nurse examined and says looks like some mild excoriation; will apply zinc oxide and see if Tegaderm patch can help heal/alleviate chafing Mental Status Exam Mental Status Exam Narrative: Pt is alert and oriented; behavior is cooperative, calm; patient is not in distress; dressed in casual attire, mood is described as okay and affect congruent; eye contact appropriate; Speech is normal rate; normal volume and prosody; no psychomotor retardation present; thought process is organized and goal directed; Thought content is on past trauma; treatment; otherwise pertinent to relevant topics and without any delusional content, paranoid ideations or grandiosity; no SI; no HI. No AVH and there is no evidence of perceptual disturbance.. Patients insight and judgment are have improved, getting close to baseline. Diagnostics Vital Signs (24Hr): Vital Signs - 24 hr 12/21/22 08:00 12/21/22 14:13 Temperature 97 F Pulse Rate 71 78 Respiratory Rate 12 Blood Pressure 119/53 L 98/54 L Pulse Oximetry 96 96 Oxygen Delivery Method Room Air Room Air BMI result Body Mass Index 37.4 Labs 12/17/22 06:00 12/17/22 00:16 Medications Medications Current Medications Acetaminophen (Acetaminophen 325 Mg Tablet) 650 mg PO Q6H PRN PRN Reason: Headache/Pain Mild Scale (1-3) Al Hydroxide/Mg Hydroxide (Magnesium Hydrox/Alum Hydrox 30 Ml Oral.Susp) 30 ml PO Q6H PRN PRN Reason: Heartburn/Nausea Alprazolam (Alprazolam 0.5 Mg Tablet) 0.5 mg PO TID PRN PRN Reason: anxiety Last Admin: 12/20/22 22:09 Dose: 0.5 mg Clonidine HCl (Clonidine Hcl 0.1 Mg Tablet) 0.1 mg PO TID [facility]; Protocol Last Admin: 12/21/22 14:12 Dose: 0.1 mg Diphenhydramine HCl (Diphenhydramine Hcl 25 Mg Capsule) 50 mg PO BEDTIME [facility] Last Admin: 12/20/22 22:01 Dose: 50 mg Divalproex Sodium (Divalproex Sodium Er 500 Mg Tab.Er.24h) 2,500 mg PO BEDTIME [facility] Last Admin: 12/20/22 22:01 Dose: 2,500 mg Famotidine (Famotidine 20 Mg Tablet) 20 mg PO BEDTIME [facility] Last Admin: 12/20/22 22:01 Dose: 20 mg Fluoxetine HCl (Fluoxetine Hcl 20 Mg Capsule) 20 mg PO DAILY [facility] Last Admin: 12/21/22 09:02 Dose: 20 mg Hydroxyzine HCl (Hydroxyzine Hcl 25 Mg Tablet) 25 mg PO Q6H PRN PRN Reason: Anxiety Magnesium Hydroxide (Milk Of Magnesia 30 Ml Oral.Susp) 30 ml PO DAILY PRN PRN Reason: Constipation Melatonin (Melatonin 3 Mg Tablet) 6 mg PO BEDTIME PRN PRN Reason: insomnia Multivitamins/Vitamin C (Multivitamin Tablet) 1 tab PO BEDTIME [facility] Last Admin: 12/20/22 22:03 Dose: 1 tab Naproxen (Naproxen 500 Mg Tablet) 500 mg PO Q12H PRN PRN Reason: mild pain Olanzapine (Olanzapine 10 Mg Tablet) 20 mg PO BEDTIME [facility] Last Admin: 12/20/22 22:03 Dose: 20 mg Senna/Docusate Sodium (Sennosides/Docusate Sodium Tablet) 1 tab PO BID [facility] Last Admin: 12/21/22 09:02 Dose: 1 tab Trazodone HCl (Trazodone Hcl 50 Mg Tablet) 50 mg PO BEDTIME PRN PRN Reason: insomnia Trazodone HCl (Trazodone Hcl 100 Mg Tablet) 100 mg PO BEDTIME [facility] Last Admin: 12/20/22 22:03 Dose: 100 mg Zinc Oxide (Zinc Oxide (Triple Paste) 56.7 Gm Oint) 1 appl TOPICAL QID PRN; Protocol PRN Reason: Diaper Rash Last Admin: 12/21/22 15:04 Dose: 1 appl Ziprasidone (Ziprasidone 20 Mg Capsule) 20 mg PO BID PRN PRN Reason: Agitation Allergies Allergies Allergy/AdvReac Type Severity Reaction Status Date / Time chlorpromazine Allergy Anaphylaxis Verified 12/13/22 13:24 [From Thorazine] nut - unspecified Allergy Anxiety Verified 12/13/22 13:24 haloperidol [From Haldol] AdvReac Agitated Verified 12/13/22 13:24 lithium AdvReac Hives Verified 12/13/22 13:24 Assessment & Plan Assessment & Plan (1) Autism: Status: Acute Code(s): F84.0 - Autistic disorder (2) PTSD (post-traumatic stress disorder): Status: Suspected Code(s): F43.10 - Post-traumatic stress disorder, unspecified (3) Intermittent explosive disorder: Status: Acute Code(s): F63.81 - Intermittent explosive disorder (4) CHARLES positive: Status: Acute Code(s): R76.8 - Other specified abnormal immunological findings in serum (5) Chronic restrictive lung disease: Status: Acute Code(s): J98.4 - Other disorders of lung Plan HPI: Patient is a bright, kind 22-year-old female, well known to this service, with history of Autism, PTSD recently discharged from on 12/11/22 (and recently dc'd from [facility] after 5 years) who re-presents 6 days later for resurgence of suicidal ideation with plan to run into the street and the face of being triggered by PTSD. Impression: pt stayed out of hospital longer than previously (6 days) showing improved ability to cope w/ triggers; pt's symptoms are chronic and will take much time to stabilize; sometimes exacerbations can resolve in ED, but other times, she needs a longer stay to re-stabilize. Discussed case with team, ZACHARY aparicio knows patient well and it's agreed that Currently pt requires admission for safety. Hospital course: 12/19 engaged in CBT therapy exercise which patient found helpful; family meeting with grandmother who remains very supportive. 3/ patient continues to be engaged in treatment and applying coping skills; mildly excoriated area on inner thighs from tracing, will apply zinc oxide/Tegaderm patch -mildly excoriated area on inner thighs from tracing, will apply zinc oxid e/Tegaderm patch Plan: CV Q 15 minute checks 1. ASD/PTSD/intermittent explosive disorder: Continue Depakote ER 2500 mg q.h.s. Continue Zyprexa 20 mg q.h.s. Increased Prozac to 20mg Continue Xanax 0.5 mg t.i.d. p.r.n. for agitation; may give alone or with Geodon Geodon 20 mg b.i.d. p.r.n. for agitation Clonidine 0.1 mg t.i.d. (increased from bedtime only Trazodone 100 mg q.h.s. DC zyprexa 5mg in afternoon DC perphenazine (patient has no history of psychotic illness and very likely does not need this medication) Chronic conditions: 2. CHARLES positive appointment made with Rheumatology February 20 -daytime fatigue; b/l peripheral edema; mild dyspnea on exertion Discussed with Dr. Hamilton who recommends adding following labs: Urine protein creatinine ratio Rheumatoid factor CCP antibody 3. Bilateral peripheral edema (lower/upper extrem):? Medication side effect (Zyprexa/Depakote)?? vs organic origin some reduction w/ lowering of medications Zyprexa and depakote r/u autoimune 4. Complaint of chronic struggles with inspiration: lungs CTA; CXR unremarkable Pulmonary function test: results reviewed, discussed with Dr. Melchor Pulm Consult: -elevated CHARLES and abnromal PFTs with a mild restriction with a mild diffusion impairment. -could be explained by her elevated BMI. -at this time dr. Melchor reports given lab work, it Does not look like she has lupus nor sjogrens nor scleroderma. Her cxr was good. needs a sleep study as an out pt (daytime drowsiness bringing up the possibility of obstructive sleep apnea) does not need an inpt ct scan but should f/up with outpt pulmonary and rheumatology. -in further discussion, Dr. Melchor agrees that CHARLES needs further evaluation, but that currently there is no evidence of an actual connective tissue disease and he is currently not concerned about interstitial lung disease.? At this time thinks that restriction is due to her BMI. -rheumatology appointment being established for outpatient 5. Amenorrhea: Patient did have menses a few years ago while on control; has not had it since control discontinued about 2 years ago Labs: mostly WNL; will f/u with PCP/principal software architect PSYCHIATRIC IMPRESSION/DIAGNOSIS:. Primary dx: ASD. Patient's father and grandmother maintain that she met her milestones in childhood. 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 During childhood she attended [facility] in [place], treatment center typically for people with autism; in [place] when at [facility], she carried a dx of ASD.? As observed on the unit, Patient frequently rocks back and forth, when standing or sitting, while talking to others or calming herself down.? Patient does not have a sense of a person's personal space and will get much to close to a person when talking; she is redirectable and apologizes but she is unaware she is doing it and does not get verbal cues when conversation participant is backing away or trying to end a conversation; though redirectable, she will again get too close, again unaware.? In the milieu with peers, While she will sometimes spend time in the vicinity of others, she is mostly alongside people and not directly interacting with them.? That said, she will directly interact with staff. Patient does make eye contact, however she stares the entire time she is engaged. ? She can have a logical conversation, however she is concrete Patient has a blunted affect and though she can smile and laugh, she is otherwise expressionless with blunted affect. Patient has in flexibility regarding food when it is not as expected patient can get severely dysregulated Patient has some hypo-reactivity to loud noises and crowds of people. Conversely, She does get jokes, even subtle ones. Symptoms have clearly made life functioning extremely difficult.? It is unclear if patient has had neuropsych testing. She did spend time at [facility]. Regarding PTSD: Patient has a history of trauma; details are still unclear but started in childhood; trauma [facility].? She has also been institutionalized since a young age, away from her mother and father, feeling abandoned.? She can have several regressed behaviors and some child-like interests Regarding Dissociative Disorder:? Patient has episodes of depersonalization and derealization which the typically arise when triggered and during which time she will feel to task from herself, from her body and feel as if things are unreal and dream like, with out a sense of time; after they conclude and she is again in the present, she will have been unaware and subsequently upset about some behaviors she engaged in during the dissociate period. Not BPD: Regarding past references to borderline personality disorder, Air Drill Operator and team agree there have been no axis II traits expressed throughout her time in the hospital No psychotic illness: no psychotic symptoms past or present Impression: Patient is a fun, intelligent, cooperative and friendly person. When she gets triggered by something she can decompensate severely, dissociate and become physically aggressive.? It has been difficult to determine her diagnosis as she has had a life time of psychiatric illness which includes being in either inpatient or residential settings for most of her life and most recently, for the past 5 years, residing in a [facility].? From [facility], she carries the diagnosis of Schizoaffective disorder and mention of borderline personality disorder.? Given the longevity that patient has been at this treatment center, bond writer is slow to change her diagnosis.? However, Patient has been treated by [facility] staff either in the ED or on the inpatient unit for about 30 days and at this time, Air Drill Operator cannot conclude that patient has a psychotic illness.? She is linear, logical, articulate, insightful and organized in her thinking; she is organized in her behaviors.? Patient denies any history of paranoid or delusional thoughts, has not expressed any delusional/paranoid thinking and none could be solicited.? Patient consistently denies any auditory or visual hallucinations and denies she has ever had any history of such; rather she reports getting intrusive thoughts that provoke strong urges to act upon the thought and will not let up unless she does so.? Patient is unclear herself if these intrusive thoughts occur are only when specifically triggered or if they can also arbitrarily manifest; since on the unit, they seem to predominantly follow a specific trigger that she can identify, but not always.? Patient has never appeared to be internally preoccupied.? Air Drill Operator reviewed the notes available from [facility] and there is no mention of psychotic or manic symptoms that bond writer could find.? That said, she is on 2 antipsychotic medications and has been for quite some time, as well as Depakote and clonazepam and it remains possible that off these medications, she would indeed have psychotic symptoms. Initially, bond writer left patient with diagnosis of schizoaffective disorder but made it provisional. At this time, schizoaffective seems less and less likely; will make it a rule out.? Air Drill Operator provisionally diagnosed patient with ASD, which needs to be further examined. Patient has PTSD, either with dissociative episodes or with an independent dissociative disorder.? Regarding patient's intrusive thoughts, while many of them seem to be triggered, some of them also seem possibly independent of triggers.? These intrusive thoughts will not resolve unless she gives into her urge to act upon them and so OCD remains on the differential.? She carries intermittent explosive disorder however this may be better explained by other things.? Will leave it for now.. Patient educated on: diagnosis, medication risk/benefits and therapeutic strategies Informed Consent: understands Reason for contiued inpatient stay Substantial Risk for: med/psych decompensation Time Spent With Patient Time: Total time managing care of this patient today ____ minutes.
[2022-12-21 23:00] VITALS: BP 103/62; PULSE 89; TEMP 36.2
[2022-12-21] MEDS: ALPRAZolam 0.5 MG TABLET PO (23:06)
[2022-12-21] MEDS: Divalproex Sodium ER 500 MG TAB.ER.24H 2500 MG PO (23:06)
[2022-12-21] MEDS: Famotidine 20 MG TABLET PO (23:07)
[2022-12-21] MEDS: traZODone HCL 100 MG TABLET PO (23:07)
[2022-12-21] MEDS: Multivitamin TABLET 1 TAB PO (23:08)
[2022-12-21] MEDS: OLANZapine 10 MG TABLET 20 MG PO (23:08)
[2022-12-21] MEDS: diphenhydrAMINE HCL 25 MG CAPSULE 50 MG PO (23:09)
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
[2022-12-22] MEDS: cloNIDine HCL 0.1 MG TABLET PO ×3 (09:59→22:29)
[2022-12-22] MEDS: Sennosides/Docusate Sodium TABLET 1 TAB PO ×2 (09:59→22:29)
[2022-12-22] MEDS: FLUoxetine HCl 20 MG CAPSULE PO (09:59)
[2022-12-22 10:02] VITALS: BP 98/50; PULSE 88; RESP 16; TEMP 37.1; O2SAT 94
[2022-12-22] MEDS: Zinc Oxide (Triple Paste) 56.7 GM OINT 1 APPL TOPICAL ×2 (13:30→22:34)
[2022-12-22 14:12] VITALS: BP 96/62
[2022-12-22 22:25] VITALS: BP 109/60; PULSE 92; TEMP 36.2
[2022-12-22] MEDS: traZODone HCL 100 MG TABLET PO (22:27)
[2022-12-22] MEDS: OLANZapine 10 MG TABLET 20 MG PO (22:28)
[2022-12-22] MEDS: Divalproex Sodium ER 500 MG TAB.ER.24H 2500 MG PO (22:28)
[2022-12-22] MEDS: Famotidine 20 MG TABLET PO (22:29)
[2022-12-22] MEDS: Multivitamin TABLET 1 TAB PO (22:29)
[2022-12-22] MEDS: diphenhydrAMINE HCL 25 MG CAPSULE 50 MG PO (22:30)
[2022-12-23 09:48] VITALS: BP 90/51; PULSE 86; RESP 16; TEMP 36.8; O2SAT 94
[2022-12-23] MEDS: FLUoxetine HCl 20 MG CAPSULE PO (09:52)
[2022-12-23] MEDS: Sennosides/Docusate Sodium TABLET 1 TAB PO ×2 (09:52→23:23)
--- NOTE | 2022-12-23 10:10 | P.PNPSI_ITS ---
Subjective Subjective Date of Service: 12/23/22 Reason For Visit: Schizoaffective disorder,depressed,Int. Explosive Subjective Notes: Conditional Voluntary Healthcare Proxy: No Guardianship: Yes (? grandmother) Medical Problems Affecting Mental Status: No Interim History: Pt has no complaints, lying in bed, not willing to engage with provider Medication Compliance: Yes Side effects from medications: No Attending Groups: No Review of Systems Acute medical concerns: No Medical Review of Systems: unchanged Mental Status Exam Mental Status Exam Narrative: lying in bed Patient Appearance: Appropriate Patient Orientation: Person, Place and Situation Level of Consciousness: Awake and Alert Patient Behavior: Avoidant and Impulsive Mood Description: Calm Affect Description: Flat Ability to Follow Directions: Poor Speech Pattern: Clear Thought Process: Intact Thought Content: positive for Poverty of Content Abnormal Motor Activity Signs and Symptoms: Aggression (at times ) Judgement: Poor Diagnostics Vital Signs (24Hr): Vital Signs - 24 hr 12/22/22 14:12 12/22/22 22:25 Temperature 97.1 F Pulse Rate 92 Blood Pressure 96/62 109/60 BMI result Body Mass Index 37.4 Labs 12/17/22 06:00 12/17/22 00:16 Medications Medications Current Medications Acetaminophen (Acetaminophen 325 Mg Tablet) 650 mg PO Q6H PRN PRN Reason: Headache/Pain Mild Scale (1-3) Al Hydroxide/Mg Hydroxide (Magnesium Hydrox/Alum Hydrox 30 Ml Oral.Susp) 30 ml PO Q6H PRN PRN Reason: Heartburn/Nausea Clonidine HCl (Clonidine Hcl 0.1 Mg Tablet) 0.[address] [facility]; Protocol Last Admin: 12/23/22 10:01 Dose: Not Given Diphenhydramine HCl (Diphenhydramine Hcl 25 Mg Capsule) [address] [facility] Last Admin: 12/22/22 22:30 Dose: 50 mg Divalproex Sodium (Divalproex Sodium Er 500 Mg Tab.Er.24h) 2,[address] [facility] Last Admin: 12/22/22 22:28 Dose: 2,500 mg Famotidine (Famotidine 20 Mg Tablet) [address] [facility] Last Admin: 12/22/22 22:29 Dose: 20 mg Fluoxetine HCl (Fluoxetine Hcl 20 Mg Capsule) [address] [facility] Last Admin: 12/23/22 09:52 Dose: 20 mg Hydroxyzine HCl (Hydroxyzine Hcl 25 Mg Tablet) 25 mg PO Q6H PRN PRN Reason: Anxiety Magnesium Hydroxide (Milk Of Magnesia 30 Ml Oral.Susp) 30 ml PO DAILY PRN PRN Reason: Constipation Melatonin (Melatonin 3 Mg Tablet) 6 mg PO BEDTIME PRN PRN Reason: insomnia Multivitamins/Vitamin C (Multivitamin Tablet) [address] [facility] Last Admin: 12/22/22 22:29 Dose: 1 tab Naproxen (Naproxen 500 Mg Tablet) 500 mg PO Q12H PRN PRN Reason: mild pain Olanzapine (Olanzapine 10 Mg Tablet) [address] [facility] Last Admin: 12/22/22 22:28 Dose: 20 mg Senna/Docusate Sodium (Sennosides/Docusate Sodium Tablet) [address] [facility] Last Admin: 12/23/22 09:52 Dose: 1 tab Trazodone HCl (Trazodone Hcl 50 Mg Tablet) 50 mg PO BEDTIME PRN PRN Reason: insomnia Trazodone HCl (Trazodone Hcl 100 Mg Tablet) [address] [facility] Last Admin: 12/22/22 22:27 Dose: 100 mg Zinc Oxide (Zinc Oxide (Triple Paste) 56.7 Gm Oint) 1 appl TOPICAL QID PRN; Protocol PRN Reason: Diaper Rash Last Admin: 12/22/22 22:34 Dose: 1 appl Ziprasidone (Ziprasidone 20 Mg Capsule) 20 mg PO BID PRN PRN Reason: Agitation Allergies Allergies Allergy/AdvReac Type Severity Reaction Status Date / Time chlorpromazine Allergy Anaphylaxis Verified 12/13/22 13:24 [From Thorazine] nut - unspecified Allergy Anxiety Verified 12/13/22 13:24 haloperidol [From Haldol] AdvReac Agitated Verified 12/13/22 13:24 lithium AdvReac Hives Verified 12/13/22 13:24 Assessment & Plan Assessment & Plan (1) Autism: Status: Acute Code(s): F84.0 - Autistic disorder Assessment and Plan: no change, may account for many sys (2) PTSD (post-traumatic stress disorder): Status: Suspected Code(s): F43.10 - Post-traumatic stress disorder, unspecified Assessment and Plan: can be reactive, hx of institutionalization since childhood (3) Intermittent explosive disorder: Status: Acute Code(s): F63.81 - Intermittent explosive disorder Assessment and Plan: continues Plan HPI: Patient is a bright, kind 22-year-old female, well known to this service, with history of Autism, PTSD recently discharged from on 12/11/22 (and recently dc'd from [facility] after 5 years) who re-presents 6 days later for resurgence of suicidal ideation with plan to run into the street and the face of being triggered by PTSD. Impression: pt stayed out of hospital longer than previously (6 days) showing improved ability to cope w/ triggers; pt's symptoms are chronic and will take much time to stabilize; sometimes exacerbations can resolve in ED, but other times, she needs a longer stay to re-stabilize. Discussed case with team, ZACHARY who knows patient well and it's agreed that Currently pt requires admission for safety. Hospital course: 12/19 engaged in CBT therapy exercise which patient found helpful; family meeting with grandmother who remains very supportive. 12/21 patient continues to be engaged in treatment and applying coping skills; mildly excoriated area on inner thighs from tracing, will apply zinc oxide/Tegaderm patch -mildly excoriated area on inner thighs from tracing, will apply zinc oxide/Tegaderm patch Plan: CV Q 15 minute checks 1. ASD/PTSD/intermittent explosive disorder: Continue Depakote ER 2500 mg q.h.s. Continue Zyprexa 20 mg q.h.s. Increased Prozac to 20mg Continue Xanax 0.5 mg t.i.d. p.r.n. for agitation; may give alone or with Geodon Geodon 20 mg b.i.d. p.r.n. for agitation Clonidine 0.1 mg t.i.d. (increased from bedtime only Trazodone 100 mg q.h.s. DC zyprexa 5mg in afternoon DC perphenazine (patient has no history of psychotic illness and very likely does not need this medication) Chronic conditions: 2. CHARLES positive appointment made with Rheumatology February 20 -daytime fatigue; b/l peripheral edema; mild dyspnea on exertion Discussed with Dr. Hamilton who recommends adding following labs: Urine protein creatinine ratio Rheumatoid factor CCP antibody 3. Bilateral peripheral edema (lower/upper extrem):? Medication side effect (Zyprexa/Depakote)?? vs organic origin some reduction w/ lowering of medications Zyprexa and depakote r/u autoimune 4. Complaint of chronic struggles with inspiration: lungs CTA; CXR unremarkable Pulmonary function test: results reviewed, discussed with Dr. Melchor Pulm Consult: -elevated CHARLES and abnromal PFTs with a mild restriction with a mild diffusion impairment. -could be explained by her elevated BMI. -at this time dr. Melchor reports given lab work, it Does not look like she has lupus nor sjogrens nor scleroderma. Her cxr was good. needs a sleep study as an out pt (daytime drowsiness bringing up the possibility of obstructive sleep apnea) does not need an inpt ct scan but should f/up with outpt pulmonary and rheumatology. -in further discussion, Dr. Melchor agrees that CHARLES needs further evaluation, but that currently there is no evidence of an actual connective tissue disease and he is currently not concerned about interstitial lung disease.? At this time thinks that restriction is due to her BMI. -rheumatology appointment being established for outpatient 5. Amenorrhea: Patient did have menses a few years ago while on control; has not had it since control discontinued about 2 years ago Labs: mostly WNL; will f/u with PCP/casing finisher and stuffer PSYCHIATRIC IMPRESSION/DIAGNOSIS:. Primary dx: ASD. Patient's father and grandmother maintain that she met her milestones in childhood. 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 During childhood she attended [facility] [place], treatment center typically for people with autism; in [place] when at [facility], she carried a dx of ASD.? As observed on the unit, Patient frequently rocks back and forth, when standing or sitting, while talking to others or calming herself down.? Patient does not have a sense of a person's personal space and will get much to close to a person when talking; she is redirectable and apologizes but she is unaware she is doing it and does not get verbal cues when conversation participant is backing away or trying to end a conversation; though redirectable, she will again get too close, again unaware.? In the milieu with peers, While she will sometimes spend time in the vicinity of others, she is mostly alongside people and not directly interacting with them.? That said, she will directly interact with staff. Patient does make eye contact, however she stares the entire time she is engaged. ? She can have a logical conversation, however she is concrete Patient has a blunted affect and though she can smile and laugh, she is otherwise expressionless with blunted affect. Patient has in flexibility regarding food when it is not as expected patient can get severely dysregulated Patient has some hypo-reactivity to loud noises and crowds of people. Conversely, She does get jokes, even subtle ones. Symptoms have clearly made life functioning extremely difficult.? It is unclear if patient has had neuropsych testing. She did spend time at [facility]. Regarding PTSD: Patient has a history of trauma; details are still unclear but started in childhood; trauma during [facility].? She has also been institutionalized since a young age, away from her mother and father, feeling abandoned.? She can have several regressed behaviors and some child-like interests Regarding Dissociative Disorder:? Patient has episodes of depersonalization and derealization which the typically arise when triggered and during which time she will feel to task from herself, from her body and feel as if things are unreal and dream like, with out a sense of time; after they conclude and she is again in the present, she will have been unaware and subsequently upset about some behaviors she engaged in during the dissociate period. Not BPD: Regarding past references to borderline personality disorder, [employer] Member and team agree there have been no axis II traits expressed throughout her time in the hospital No psychotic illness: no psychotic symptoms past or present Impression: Patient is a fun, intelligent, cooperative and friendly person. When she gets triggered by something she can decompensate severely, dissociate and become physically aggressive.? It has been difficult to determine her diagnosis as she has had a life time of psychiatric illness which includes being in either inpatient or residential settings for most of her life and most recently, for the past 5 years, residing in a [facility] hospital.? From [facility], she carries the diagnosis of Schizoaffective disorder and mention of borderline personality disorder.? 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 However, Patient has been treated by [facility] staff either in the ED or on the inpatient unit for about 30 days and at this time, [employer] Member cannot conclude that patient has a psychotic illness.? She is linear, logical, articulate, insightful and organized in her thinking; she is organized in her behaviors.? Patient denies any history of paranoid or delusional thoughts, has not expressed any delusional/paranoid thinking and none could be solicited.? Patient consistently denies any auditory or visual hallucinations and denies she has ever had any history of such; rather she reports getting intrusive thoughts that provoke strong urges to act upon the thought and will not let up unless she does so.? Patient is unclear herself if these intrusive thoughts occur are only when specifically triggered or if they can also arbitrarily manifest; since on the unit, they seem to predominantly follow a specific trigger that she can identify, but not always.? Patient has never appeared to be internally preoccupied.? [employer] Member reviewed the notes available from [facility] and there is no mention of psychotic or manic symptoms that magnetic tape typewriter operator could find.? That said, she is on 2 antipsychotic medications and has been for quite some time, as well as Depakote and clonazepam and it remains possible that off these medications, she would indeed have psychotic symptoms. Initially, magnetic tape typewriter operator left patient with diagnosis of schizoaffective disorder but made it provisional. At this time, schizoaffective seems less and less likely; will make it a rule out.? [employer] Member provisionally diagnosed patient with ASD, which needs to be further examined. Patient has PTSD, either with dissociative episodes or with an independent dissociative disorder.? Regarding patient's intrusive thoughts, while many of them seem to be triggered, some of them also seem possibly independent of triggers.? These intrusive thoughts will not resolve unless she gives into her urge to act upon them and so OCD remains on the differential.? She carries intermittent explosive disorder however this may be better explained by other things.? Will leave it for now.. Reason for contiued inpatient stay Substantial Risk for: inability to function and rapid decompensation Time Spent With Patient Time: Total time managing care of this patient today ____ minutes.
[2022-12-23 14:46] VITALS: BP 121/63
[2022-12-23] MEDS: cloNIDine HCL 0.1 MG TABLET PO ×2 (14:46→23:23)
[2022-12-23 22:49] VITALS: BP 104/61; PULSE 78; RESP 14; TEMP 36.1
[2022-12-23] MEDS: ALPRAZolam 0.5 MG TABLET PO (23:21)
[2022-12-23] MEDS: diphenhydrAMINE HCL 25 MG CAPSULE 50 MG PO (23:22)
[2022-12-23] MEDS: Divalproex Sodium ER 500 MG TAB.ER.24H 2500 MG PO (23:22)
[2022-12-23] MEDS: Famotidine 20 MG TABLET PO (23:22)
[2022-12-23] MEDS: OLANZapine 10 MG TABLET 20 MG PO (23:22)
[2022-12-23] MEDS: Multivitamin TABLET 1 TAB PO (23:22)
[2022-12-23] MEDS: traZODone HCL 100 MG TABLET PO (23:23)
[2022-12-24] MEDS: traZODone HCL 50 MG TABLET PO
[2022-12-24] MEDS: Melatonin 3 MG TABLET 6 MG PO
[2022-12-24] MEDS: hydrOXYzine HCL 25 MG TABLET PO
[2022-12-24] MEDS: FLUoxetine HCl 20 MG CAPSULE PO (08:23)
[2022-12-24] MEDS: cloNIDine HCL 0.1 MG TABLET PO ×3 (08:23→22:20)
[2022-12-24] MEDS: Sennosides/Docusate Sodium TABLET 1 TAB PO ×2 (08:23→22:20)
--- NOTE | 2022-12-24 10:28 | P.PNPSI_ITS ---
Subjective Subjective Date of Service: 12/24/22 Reason For Visit: Schizoaffective disorder,depressed,Int. Explosive Interim History: With patient; discussed in teams Patient overall doing well, in good behavioral and impulse control, appropriate with peers and staff. She reports her mood is good but is very much looking forward to going home. No SI or intrusive thoughts to harm herself. Patient has been trying to utilize the concept of being aware of automatic thoughts which has been helpful. -discussed getting lab work in preparation for rheumatology appointment Mental Status Exam Mental Status Exam Narrative: Pt is alert and oriented; behavior is cooperative, calm; patient is not in distress; dressed in casual attire, mood is described as okay and affect wilian ruent; eye contact appropriate; Speech is normal rate; normal volume and prosody; no psychomotor retardation present; thought process is organized and goal directed; Thought content is on past trauma; treatment; otherwise pertinent to relevant topics and without any delusional content, paranoid ideations or grandiosity; no SI; no HI. No AVH and there is no evidence of perceptual disturbance.. Patients insight and judgment are fair and at baseline. Diagnostics Vital Signs (24Hr): Vital Signs - 24 hr 12/23/22 14:46 12/23/22 22:49 Temperature 97 F Pulse Rate 78 Respiratory Rate 14 Blood Pressure 121/63 104/61 BMI result Body Mass Index 37.4 Labs 12/17/22 06:00 12/17/22 00:16 Medications Medications Current Medications Acetaminophen (Acetaminophen 325 Mg Tablet) 650 mg PO Q6H PRN PRN Reason: Headache/Pain Mild Scale (1-3) Al Hydroxide/Mg Hydroxide (Magnesium Hydrox/Alum Hydrox 30 Ml Oral.Susp) 30 ml PO Q6H PRN PRN Reason: Heartburn/Nausea Alprazolam (Alprazolam 0.5 Mg Tablet) 0.5 mg PO TID PRN PRN Reason: Anxiety Last Admin: 12/23/22 23:21 Dose: 0.5 mg Clonidine HCl (Clonidine Hcl 0.1 Mg Tablet) 0.1 mg PO TID [facility]SCAR; Protocol Last Admin: 12/24/22 08:23 Dose: 0.1 mg Diphenhydramine HCl (Diphenhydramine Hcl 25 Mg Capsule) 50 mg PO BEDTIME OSCAR Last Admin: 12/23/22 23:22 Dose: 50 mg Divalproex Sodium (Divalproex Sodium Er 500 Mg Tab.Er.24h) 2,500 mg PO BEDTIME [facility] Last Admin: 12/23/22 23:22 Dose: 2,500 mg Famotidine (Famotidine 20 Mg Tablet) 20 mg PO BEDTIME [facility] Last Admin: 12/23/22 23:22 Dose: 20 mg Fluoxetine HCl (Fluoxetine Hcl 20 Mg Capsule) 20 mg PO DAILY [facility] Last Admin: 12/24/22 08:23 Dose: 20 mg Hydroxyzine HCl (Hydroxyzine Hcl 25 Mg Tablet) 25 mg PO Q6H PRN PRN Reason: Anxiety Last Admin: 12/24/22 00:00 Dose: 25 mg Magnesium Hydroxide (Milk Of Magnesia 30 Ml Oral.Susp) 30 ml PO DAILY PRN PRN Reason: Constipation Melatonin (Melatonin 3 Mg Tablet) 6 mg PO BEDTIME PRN PRN Reason: insomnia Last Admin: 12/24/22 00:00 Dose: 6 mg Multivitamins/Vitamin C (Multivitamin Tablet) 1 tab PO BEDTIME [facility] Last Admin: 12/23/22 23:22 Dose: 1 tab Naproxen (Naproxen 500 Mg Tablet) 500 mg PO Q12H PRN PRN Reason: mild pain Olanzapine (Olanzapine 10 Mg Tablet) 20 mg PO BEDTIME [facility] Last Admin: 12/23/22 23:22 Dose: 20 mg Senna/Docusate Sodium (Sennosides/Docusate Sodium Tablet) 1 tab PO BID [facility] Last Admin: 12/24/22 08:23 Dose: 1 tab Trazodone HCl (Trazodone Hcl 50 Mg Tablet) 50 mg PO BEDTIME PRN PRN Reason: insomnia Last Admin: 12/24/22 00:00 Dose: 50 mg Trazodone HCl (Trazodone Hcl 100 Mg Tablet) 100 mg PO BEDTIME [facility] Last Admin: 12/23/22 23:23 Dose: 100 mg Zinc Oxide (Zinc Oxide (Triple Paste) 56.7 Gm Oint) 1 appl TOPICAL QID PRN; Protocol PRN Reason: Diaper Rash Last Admin: 12/22/22 22:34 Dose: 1 appl Ziprasidone (Ziprasidone 20 Mg Capsule) 20 mg PO BID PRN PRN Reason: Agitation Allergies Allergies Allergy/AdvReac Type Severity Reaction Status Date / Time chlorpromazine Allergy Anaphylaxis Verified 12/13/22 13:24 [From Thorazine] nut - unspecified Allergy Anxiety Verified 12/13/22 13:24 haloperidol [From Haldol] AdvReac Agitated Verified 12/13/22 13:24 lithium AdvReac Hives Verified 12/13/22 13:24 Assessment & Plan Assessment & Plan (1) Autism: Status: Acute Code(s): F84.0 - Autistic disorder Assessment and Plan: no change, may account for many sys (2) PTSD (post-traumatic stress disorder): Status: Suspected Code(s): F43.10 - Post-traumatic stress disorder, unspecified Assessment and Plan: can be reactive, hx of institutionalization since childhood (3) Intermittent explosive disorder: Status: Acute Code(s): F63.81 - Intermittent explosive disorder Assessment and Plan: continues Plan HPI: Patient is a bright, kind 22-year-old female, well known to this service, with history of Autism, PTSD recently discharged from on 12/11/22 (and recently dc'd from [facility] after 5 years) who re-presents 6 days later for resurgence of suicidal ideation with plan to run into the street and the face of being triggered by PTSD. Impression: pt stayed out of hospital longer than previously (6 days) showing improved ability to cope w/ triggers; pt's symptoms are chronic and will take much time to stabilize; sometimes exacerbations can resolve in ED, but other times, she needs a longer stay to re-stabilize. Discussed case with team, ZACHARY who knows patient well and it's agreed that Currently pt requires admission for safety. Hospital course: 12/19 engaged in CBT therapy exercise which patient found helpful; family meeting with grandmother who remains very supportive. 3 patient continues to be engaged in treatment and applying coping skills; mildly excoriated area on inner thighs from tracing, will apply zinc oxide/Tegaderm patch -mildly excoriated area on inner thighs from tracing, will apply zinc oxide/Tegaderm patch 12/24 patient remains stable in good behavioral and impulse control and at or beyond baseline. She would like to discharge tomorrow; she has follow-up appointments outpatient services. Patient's grandmother agrees she is ready to come home. Team and patient all understand that given her history she will li kusum continue to struggle with impulse control and intrusive thoughts and may again become unsafe however this is a chronic issue which has improved and although it will likely continue to be a struggle, she has improved coping skills and is appropriate to continue treatment in the community. Patient is not in imminent risk for harm to self or others and request for discharge honored. Plan: CV Q 15 minute checks 1. ASD/PTSD/intermittent explosive disorder: Continue Depakote ER 2500 mg q.h.s. Continue Zyprexa 20 mg q.h.s. Increased Prozac to 20mg Continue Xanax 0.5 mg t.i.d. p.r.n. for agitation; may give alone or with Geodon Geodon 20 mg b.i.d. p.r.n. for agitation Clonidine 0.1 mg t.i.d. (increased from bedtime only Trazodone 100 mg q.h.s. DC zyprexa 5mg in afternoon DC perphenazine (patient has no history of psychotic illness and very likely does not need this medication) Chronic conditions: 2. CHARLES positive appointment made with Rheumatology May 3rd -daytime fatigue; b/l peripheral edema; mild dyspnea on exertion Discussed with Dr. Hamilton who recommends adding following labs: ordered: Urine protein creatinine ratio Rheumatoid factor CCP antibody 3. Bilateral peripheral edema (lower/upper extrem):? Medication side effect (Zyprexa/Depakote)?? vs organic origin some reduction w/ lowering of medications Zyprexa and depakote r/u autoimune 4. Complaint of chronic struggles with inspiration: lungs CTA; CXR unremarkable Pulmonary function test: results reviewed, discussed with Dr. Melchor Pulm Consult: -elevated CHARLES and abnromal PFTs with a mild restriction with a mild diffusion impairment. -could be explained by her elevated BMI. -at this time dr. Melchor reports given lab work, it Does not look like she has lupus nor sjogrens nor scleroderma. Her cxr was good. needs a sleep study as an out pt (daytime drowsiness bringing up the possibility of obstructive sleep apnea) does not need an inpt ct scan but should f/up with outpt pulmonary and rheumatology. -in further discussion, Dr. Melchor agrees that CHARLES needs further evaluation, but that currently there is no evidence of an actual connective tissue disease and he is currently not concerned about interstitial lung disease.? At this time thinks that restriction is due to her BMI. -rheumatology appointment being established for outpatient 5. 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 Primary dx: ASD. Patient's father and grandmother maintain that she met her milestones in childhood. 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 During childhood she attended [facility] in [place], treatment center typically for people with autism; in [place] when at [facility], she carried a dx of ASD.? As observed on the unit, Patient frequently rocks back and forth, when standing or sitting, while talking to others or calming herself down.? Patient does not have a sense of a person's personal space and will get much to close to a person when talking; she is redirectable and apologizes but she is unaware she is doing it and does not get verbal cues when conversation participant is backing away or trying to end a conversation; though redirectable, she will again get too close, again unaware.? In the milieu with peers, While she will sometimes spend time in the vicinity of others, she is mostly alongside people and not directly interacting with them.? That said, she will directly interact with staff. Patient does make eye contact, however she stares the entire time she is engaged. ? She can have a logical conversation, however she is concrete Patient has a blunted affect and though she can smile and laugh, she is otherwise expressionless with blunted affect. Patient has in flexibility regarding food when it is not as expected patient can get severely dysregulated Patient has some hypo-reactivity to loud noises and crowds of people. Conversely, She does get jokes, even subtle ones. Symptoms have clearly made life functioning extremely difficult.? It is unclear if patient has had neuropsych testing. She did spend time at [facility]. Regarding PTSD: Patient has a history of trauma; details are still unclear but started in childhood; trauma during while at [facility].? She has also been institutionalized since a young age, away from her mother and father, feeling abandoned.? She can have several regressed behaviors and some child-like interests Regarding Dissociative Disorder:? Patient has episodes of depersonalization and derealization which the typically arise when triggered and during which time she will feel to task from herself, from her body and feel as if things are unreal and dream like, with out a sense of time; after they conclude and she is again in the present, she will have been unaware and subsequently upset about some behaviors she engaged in during the dissociate period. Not BPD: Regarding past references to borderline personality disorder, Escort Patients and team agree there have been no axis II traits expressed throughout her time in the hospital No psychotic illness: no psychotic symptoms past or present Impression: Patient is a fun, intelligent, cooperative and friendly person. When she gets t riggered by something she can decompensate severely, dissociate and become physically aggressive.? It has been difficult to determine her diagnosis as she has had a life time of psychiatric illness which includes being in either inpatient or residential settings for most of her life and most recently, for the past 5 years, residing in a [facility].? From [facility], she carries the diagnosis of Schizoaffective disorder and mention of borderline personality disorder.? Given the longevity that patient has been at this treatment center, repairer typewriter is slow to change her diagnosis.? However, Patient has been treated by [facility] staff either in the ED or on the inpatient unit for about 30 days and at this time, Escort Patients cannot conclude that patient has a psychotic illness.? She is linear, logical, articulate, insightful and organized in her thinking; she is organized in her behaviors.? Patient denies any history of paranoid or delusional thoughts, has not expressed any delusional/paranoid thinking and none could be solicited.? Patient consistently denies any auditory or visual hallucinations and denies she has ever had any history of such; rather she reports getting intrusive thoughts that provoke strong urges to act upon the thought and will not let up unless she does so.? Patient is unclear herself if these intrusive thoughts occur are only when specifically triggered or if they can also arbitrarily manifest; since on the unit, they seem to predominantly follow a specific trigger that she can identify, but not always.? Patient has never appeared to be internally preoccupied.? Escort Patients reviewed the notes available from [facility] and there is no mention of psychotic or manic symptoms that repairer typewriter could find.? That said, she is on 2 antipsychotic medications and has been for quite some time, as well as Depakote and clonazepam and it remains possible that off these medications, she would indeed have psychotic symptoms. Initially, repairer typewriter left patient with diagnosis of schizoaffective disorder but made it provisional. At this time, schizoaffective seems less and less likely; will make it a rule out.? Escort Patients provisionally diagnosed patient with ASD, which needs to be further examined. Patient has PTSD, either with dissociative episodes or with an independent dissociative disorder.? Regarding patient's intrusive thoughts, while many of them seem to be triggered, some of them also seem possibly independent of triggers.? These intrusive thoughts will not resolve unless she gives into her urge to act upon them and so OCD remains on the differential.? She carries intermittent explosive disorder however this may be better explained by other things.? Will leave it for now.. Patient educated on: diagnosis, medication risk/benefits and medical condition Informed Consent: understands Reason for contiued inpatient stay Substantial Risk for: stable for discharge Time Spent With Patient Time: Total time managing care of this patient today ____ minutes.
[2022-12-24] MEDS: Lidocaine 4 % Cream KIT 1 APPL TOPICAL (14:19)
[2022-12-24 15:52] LABS: Rheumatoid Factor < 13.0 IU/mL (<15.0)
[2022-12-24 18:00] VITALS: BP 87/57; PULSE 98; TEMP 36.1; O2SAT 98
[2022-12-24 22:00] LABS: Creatinine Urine 286.68 mg/dL; Protein/Creatinine Ratio, Ur 0.03 (<0.2); Total Protein Urine Random 10 mg/dL (<12)
[2022-12-24] MEDS: traZODone HCL 100 MG TABLET PO (22:19)
[2022-12-24] MEDS: Famotidine 20 MG TABLET PO (22:19)
[2022-12-24] MEDS: OLANZapine 10 MG TABLET 20 MG PO (22:19)
[2022-12-24] MEDS: Multivitamin TABLET 1 TAB PO (22:19)
[2022-12-24] MEDS: Divalproex Sodium ER 500 MG TAB.ER.24H 2500 MG PO (22:19)
[2022-12-24] MEDS: diphenhydrAMINE HCL 25 MG CAPSULE 50 MG PO (22:19)
[2022-12-25] MEDS: Sennosides/Docusate Sodium TABLET 1 TAB PO (08:15)
[2022-12-25] MEDS: FLUoxetine HCl 20 MG CAPSULE PO (08:15)
[2022-12-25] MEDS: cloNIDine HCL 0.1 MG TABLET PO ×2 (08:15→14:26)
[2022-12-25 08:18] VITALS: BP 98/56; PULSE 74; RESP 17; TEMP 36.5; O2SAT 99
--- NOTE | 2022-12-25 09:29 | P.DS_ITS ---
DS: Providers Provider Date of Service: 12/25/22 Date of admission: 12/17/22 19:06 Date of discharge: 12/25/22 [facility] Attending physician on admission: Ruel Bustos Attending physician on discharge: Ruel Bustos DS: Diagnosis Discharge Diagnosis (1) Autism: Status: Acute (2) PTSD (post-traumatic stress disorder): Status: Suspected (3) Intermittent explosive disorder: Status: Acute DS: Medications Discharge Medications Home Medications: Home Medications Medication Instructions Recorded Confirmed alprazolam 0.5 mg tablet 0.5 mg PO TID PRN anxiety 11/30/22 12/17/22 diphenhydramine HCl 25 mg capsule 50 mg PO BEDTIME 11/30/22 12/16/22 (Banophen) divalproex 500 mg tablet,extended 2,500 mg PO BEDTIME 11/30/22 12/16/22 release 24 hr famotidine 20 mg tablet 1 tab PO BEDTIME 11/30/22 12/16/22 melatonin 5 mg tablet 1 tab PO BEDTIME PRN insomnia 11/30/22 12/16/22 multivitamin (Daily-Toshia tablet) 1 tab PO BEDTIME 11/30/22 12/16/22 naproxen 500 mg tablet 1 tab PO Q12H PRN mild pain 11/30/22 12/16/22 olanzapine 10 mg tablet 2 tab PO BEDTIME 11/30/22 12/16/22 sennosides 8.6 mg-docusate sodium 1 tab PO BID 11/30/22 12/16/22 50 mg tablet (Senna Plus) trazodone 100 mg tablet 1 tab PO BEDTIME 11/30/22 12/16/22 trazodone 50 mg tablet 1 tab PO BEDTIME PRN insomnia 11/30/22 12/17/22 ziprasidone HCl 20 mg capsule 20 mg PO BID PRN Agitation 11/30/22 12/17/22 Previous Rx's Medication Instructions Recorded alprazolam 0.5 mg tablet 0.5 mg PO TID PRN Anxiety #0 tabs 12/25/22 clonidine HCl 0.1 mg tablet 0.1 mg PO TID #0 tabs 12/25/22 fluoxetine 20 mg capsule 20 mg PO DAILY 30 days #30 caps 03/07/23 Mental Status Exam Mental Status Exam Narrative: Pt is alert and oriented; behavior is cooperative, calm; patient is not in distress; dressed in casual attire, mood is described as good and affect congruent; eye contact appropriate; Speech is normal rate; normal volume and prosody; no psychomotor retardation present; thought process is organized and goal directed; Thought content is on past trauma; treatment; otherwise pertinent to relevant topics and without any delusional content, paranoid ideations or grandiosity; no SI; no HI. No AVH and there is no evidence of perceptual disturbance.. Patients insight and judgment are fair and at baseline. Data Data Completed and Pending Completed studies during hospitalization [Text1]: 12/24/22 12/24/22 12/24/22 14:10 14:10 21:35 U Random Total Protein 10 Urine Creatinine 286.68 Protein/Creatinin Ratio 0.03 Rheumatoid Factor < 13.0 Cycl Citrul Peptide IgG Pending 12/17/22 00:00 Urine clean catch - Urine hanna top Urine Culture - Final DS: Summary Hospital Course Hospital Course: HPI: Patient is a bright, kind 22-year-old female, well known to this service, with history of Autism, PTSD recently discharged from on 12/11/22 (and recently dc'd from [facility] after 5 years) who re-presents 6 days later for resurgence of suicidal ideation with plan to run into the street and the face of being triggered by PTSD. Impression: pt stayed out of hospital longer than previously (6 days) showing improved ability to cope w/ triggers; pt's symptoms are chronic and will take much time to stabilize; sometimes exacerbations can resolve in ED, but other times, she needs a longer stay to re-stabilize.? Discussed case with team, SW who knows patient well and it's agreed that Currently pt requires admission for safety. Hospital course: On admission, patient feeling depressed and with intrusive thoughts to self- harm; however she was very willing to engage in discuss and patient engaged in CBT therapy exercise which patient found helpful. SI resolved and intrusive thoughts to self-harm abated. Patient agreed to increase Prozac and do away with afternoon dose of Zyprexa,and perphenazine was also finally discontinued, all changes to well tolerated. Patient was overall in good behavioral and impulse control throughout the time in the unit, appropriate with peers and staff. There was 1 time when she needed a p.r.n., feeling she was on the verge of getting dysregulated and did hit herself and hit the wall however was able to calm down when she got the p.r.n.. Patient had mildly excoriated area on inner thighs from tracing, which was well treated with zinc oxide/Tegaderm patch. Over subsequent days, patient remains stable in good behavioral and impulse control and was either at or beyond baseline.? She asked for discharge and grandmother agreed she's ready to return home; she has follow-up appointments outpatient services. Team and patient all understand that given her history she will likely continue to struggle with impulse control and intrusive thoughts and may again become unsafe and need a hospital stay; however this is a chronic issue which has improved and although it will likely continue to be a struggle, she has improved coping skills and is appropriate to continue treatment in the community.? Patient is not in imminent risk for harm to self or others and request for discharge honored. 1. ASD/PTSD/intermittent explosive disorder: Continue Depakote ER 2500 mg q.h.s. (may very well tolerate lower dose as overseen by outpatient provider) Continue Zyprexa 20 mg q.h.s. (may very well tolerate lower dose as overseen by outpatient provider) Continue Prozac to 20mg (increased during this admission) Continue Xanax 0.5 mg t.i.d. p.r.n. for agitation; may give alone or with Geodon Continue Geodon 20 mg b.i.d. p.r.n. for agitation Continue Clonidine 0.1 mg t.i.d. Continue Trazodone 100 mg q.h.s. DC'd zyprexa 5mg in afternoon DC'd perphenazine (patient has no history of psychotic illness and very likely does not need this medication) Chronic conditions: 2. CHARLES positive appointment made with Rheumatology February 20 -daytime fatigue; b/l peripheral edema; mild dyspnea on exertion Discussed with Dr. Hamilton who recommends and following labs ordered: -Urine protein creatinine ratio -Rheumatoid factor -CCP antibody 3. Bilateral peripheral edema (lower/upper extrem):? Medication side effect (Zyprexa/Depakote)?? vs organic origin some reduction w/ lowering of medications Zyprexa and depakote r/u autoimune 4. Complaint of chronic struggles with inspiration: lungs CTA; CXR unremarkable Pulmonary function test: results reviewed, discussed with Dr. Melchor -elevated CHARLES and abnromal PFTs with a mild restriction with a mild diffusion impairment. -could be explained by her elevated BMI. -at this time dr. Melchor reports given lab work, at this time it does not look like she has lupus nor sjogrens nor scleroderma. Her cxr was good. needs a sleep study as an out pt (daytime drowsiness bringing up the possibility of obstructive sleep apnea) does not need an inpt ct scan but should f/up with outpt pulmonary and rheumatology. -in further discussion, Dr. Melchor agrees that CHARLES needs further evaluation, 5. Amenorrhea: Patient did have menses a few years ago while on control; has not had it since control discontinued about 2 years ago Labs: mostly WNL; will f/u with PCP/button puncher PSYCHIATRIC IMPRESSION/DIAGNOSIS:. Impression: Patient is a fun, intelligent, cooperative and friendly person. When she gets triggered by something she can decompensate severely, dissociate and become physically aggressive. Patient is now diagnosed with ASD, PTSD, and intermittent explosive disorder. From [facility], she carried the diagnosis of Schizoaffective disorder and mention of borderline personality disorder. Both of these have been ruled out. 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 She is linear, logical, articulate, insightful and organized in her thinking; she is organized in her behaviors.? Patient can have intrusive thoughts but only when triggered and this does not seem to be OCD. She can have some rigid thinking in line with ASD. Many of her dysregulated moments come from her PTSD being exacerbated. Patient has well tolerated decrease of Zyprexa, decrease of Depakote and discontinuation of perphenazine. Primary dx: ASD. Patient's father and grandmother maintain that she met her milestones in childhood. 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 During childhood she attended [facility] in [place], treatment center typically for people with autism; in [place] when at [facility], she carried a dx of ASD.? As observed on the unit, Patient frequently rocks back and forth, when standing or sitting, while talking to others or calming herself down.? Patient does not have a sense of a person's personal space and will get much to close to a person when talking; she is redirectable and apologizes but she is unaware she is doing it and does not get verbal cues when conversation participant is backing away or trying to end a conversation; though redirectable, she will again get too close, again unaware.? In the milieu with peers, While she will sometimes spend time in the vicinity of others, she is mostly alongside people and not directly interacting with them.? That said, she will directly interact with gary ramirez. Patient does make eye contact, however she stares the entire time she is engaged. ? She can have a logical conversation, however she is concrete Patient has a blunted affect and though she can smile and laugh, she is otherwise expressionless with blunted affect. Patient has in flexibility regarding food when it is not as expected patient can get severely dysregulated Patient has some hypo-reactivity to loud noises and crowds of people. Conversely, She does get jokes, even subtle ones. Symptoms have clearly made life functioning extremely difficult.? It is unclear if patient has had neuropsych testing. She did spend time at [facility]. Regarding PTSD: Patient has a history of trauma from both childhood experiences, as well as trauma that occurred while on inpatient unit at [facility] and [place]. She has also been institutionalized since a young age, away from her mother and father, feeling abandoned.? She can have several regressed behaviors and some child-like interests. Regarding Dissociative Disorder:? Patient has episodes of depersonalization and derealization which the typically arise when triggered and during which time she will feel detached from herself, from her body and feel as if things are unreal and dream like, with out a sense of time; after they conclude and she is again in the present, she can be upset about some behaviors she engaged in during the dissociate period once made aware. Not BPD: Regarding past references to borderline personality disorder, Astrochemist and team agree there have been no axis II traits expressed throughout her time in the hospital; none could be cleaned from records No psychotic illness: no psychotic symptoms past or present Time spent discussing smoking cessation with patient: 3 to 10 minutes Status at Discharge Functional status at discharge: independent ambulation Overall status at discharge: patient is back to baseline Time Spent with Patient Time attestation: Total time managing care of this patient today ____ minutes. Time spent: Greater than 30 minutes Discharge Plan Discharge Anticipated Discharge Date/Time: 12/25/22 11:00 Patient Disposition: Home, Self-Care Discharge Diagnosis: ASD; PTSD Referrals: OBGYN: Malu Daley ([facility]) [Other] - 02/28/23 1:30 pm (Appointment is in person at the office. Take the same elevators to the 5th floor, right all the way at the end of the hallway ) PCP: Mariposa Erickson ([facility]) [Other] - 02/11/23 1:30 pm (Appointment is in person at the office ) Case Management: Henry Keenan ([facility]) [Other] - 12/26/22 12:00 pm Therapy: Kel Hernández ([facility]) [Other] - 12/27/22 1:00 pm Psychiatrist: Debby García ([facility]) [Other] - 01/02/23 2:00 pm (Telehealth- Dr. García will call your phone at the appointment time) Psychiatrist: Debby García ([facility]) [Other] - 02/06/23 10:00 am (Telehealth ) Pulmonology: Dr. Diaz ([facility]) [Other] - 02/11/23 2:30 pm (The office is inside the main entrance to the right off the lobby ) Joss Nichole MD [Physician] - 02/20/23 2:30 pm (Appointment is in person at the office (this building is connected to the main entrance, entrance is to the left if standing in front of main entrance of hospital). ) Discharge Medications: New clonidine HCl 0.1 mg Tablet 0.1 mg PO TID Qty: 0 0RF Protocol: Hold for SBP< HOLD for SBP < : 90 fluoxetine 20 mg Capsule 20 mg PO DAILY 30 Days Qty: 30 0RF alprazolam 0.5 mg Tablet 0.5 mg PO TID PRN (Reason: Anxiety) Qty: 0 0RF Continued multivitamin [Daily-Toshia] Tablet 1 tab PO BEDTIME trazodone 50 mg tablet 1 tab PO BEDTIME PRN (Reason: insomnia) sennosides-docusate sodium [Senna Plus] 8.6-50 mg tablet 1 tab PO BID olanzapine 10 mg tablet 2 tab PO BEDTIME ziprasidone HCl 20 mg capsule 20 mg PO BID PRN (Reason: Agitation) famotidine 20 mg tablet 1 tab PO BEDTIME trazodone 100 mg tablet 1 tab PO BEDTIME diphenhydramine HCl [Banophen] 25 mg capsule 50 mg PO BEDTIME divalproex 500 mg tablet extended release 24 hr 2,500 mg PO BEDTIME naproxen 500 mg tablet 1 tab PO Q12H PRN (Reason: mild pain) melatonin 5 mg tablet 1 tab PO BEDTIME PRN (Reason: insomnia) alprazolam 0.5 mg tablet 0.5 mg PO TID PRN (Reason: anxiety) Discontinued hydroxyzine HCl 25 mg tablet 1 tab PO Q6H PRN (Reason: anxiety) clonidine HCl 0.1 mg tablet 1 tab PO BEDTIME olanzapine 5 mg Tablet 5 mg PO DAILY@1400 30 Days Qty: 30 1RF fluoxetine 10 mg Capsule 10 mg PO DAILY 30 Days Qty: 30 1RF Discharge Orders: Discharge Order (Routine); Ordered 12/25/22 Ordered By: Ruel Bustos Diet: Regular diet Activity on Discharge: As tolerated Stand Alone Forms: Patient Portal Discharge page Care Plan Goals: Maintain mood and safe behaviors Take medications as prescribed Practice coping skills Continue with outpatient providers and reach out to them as needed Health Concerns: Mood stability and behaviors CHARLES positive Ammenorhea Chronic restrictive lung disease Plan of Treatment: Follow up with your PCP, psychiatric provider and other outpatient providers regarding above concerns Take medications as prescribed Assessment: Risk assessment at time of discharge:? Patient was interviewed prior to discharge and found to be fully oriented and without any SI or HI. Patient has insight and demonstrates good judgment in terms of wanting to pursue treatment. Patient is not in imminent risk of harm to self or others and has a safety plan that includes presenting to the closest ER or calling 911 if feeling unsafe.? Patient has been observed closely by nursing and unit staff throughout admission; patient has not engaged in any behaviors that suggest dangerousness to self or others and has demonstrated appropriate behaviors and impulse control
[2022-12-25] MEDS: ALPRAZolam 0.5 MG TABLET PO (12:26)
[2022-12-26 15:49] LABS: Cyclic Citrullinated Peptide <16 UNITS
== END 2022-12-25 15:54 | disposition home or self-care (01) | DRG 758 ==
LOC: HO.ED 12-17 03:30 → HO.PM5 12-17 19:21
PROVIDERS: Admitting Provider Psychiatry & Neurology Psychiatry; Emergency Provider Emergency Medicine Emergency Medical Services; PCP Nurse Practitioner Family; Visit Provider Psychiatry & Neurology Psychiatry
DX: F63.81 Intermittent explosive disorder (principal); R45.851 Suicidal ideations; F43.10 Post-traumatic stress disorder, unspecified; R76.0 Raised antibody titer; F84.0 Autistic disorder; Z20.822 Contact with and (suspected) exposure to COVID-19; Z88.8 Allergy status to other drugs, medicaments and biological substances; Z79.899 Other long term (current) drug therapy
CPT/HCPCS: 36415; 80053; 80307; 81001; 81025; 82077; 84156; 86200; 86431; 87086; 87635; 99285; J3486; S9485

== ENCOUNTER 2022-12-27 16:27 | Inpatient (IN) | payer OTHER, SELFPAY ==
--- NOTE | ~2022-12-27 | XR_ITS ---
EXAMINATION: XR hand LT 2V, XR hand RT 2V CLINICAL INFORMATION: Reason for Exam punching wall COMPARISON: None. TECHNIQUE: PA, oblique and lateral of each hand FINDINGS: No acute fracture or dislocation. Joint spaces and articular surfaces are maintained. Soft tissues unremarkable without radiopaque foreign body. XR/XR hand LT 2V IMPRESSION: No acute fracture or dislocation of either hand.
--- NOTE | ~2022-12-27 | XR_ITS ---
EXAMINATION: XR FOOT, LEFT CLINICAL INFORMATION: Rule out fractured toe COMPARISON: Foot radiographs 12/07/2022 TECHNIQUE: 3 views of the foot FINDINGS: Significant soft tissue swelling over the dorsum of the foot. Toes in positioned and flexion throughout all images and are overlapping limiting assessment. No acute fracture or dislocation identified however given extensive soft tissue swelling recommend dedicated radiographs of the toe of interest to ensure appropriate visualization. Joint spaces are maintained. No joint effusion. XR/XR foot LT 2V IMPRESSION: Significant soft tissue swelling over the dorsum of the foot. Toes are positioned in flexion throughout all images and are overlapping limiting assessment. No acute fracture or dislocation identified however given extensive soft tissue swelling recommend dedicated radiographs of the toe of interest to ensure appropriate visualization.
--- NOTE | ~2022-12-27 | XR_ITS ---
EXAMINATION: XR HAND, RIGHT CLINICAL INFORMATION: Right hand swollen status post punching wall. COMPARISON: 01/18/2023 TECHNIQUE: AP and lateral views of the right hand. FINDINGS: There is some mild cortical irregularity about the base of the 5th proximal phalanx which could be related to previous fracture. No definite acute fracture or dislocation is evident. Joint spaces are maintained. Soft tissue swelling is present about the hand, most prominent about the dorsal aspect of the metacarpals. XR/XR hand RT 2V IMPRESSION: Question old healed fracture base of the 5th proximal phalanx. No definite acute fracture identified. Soft tissue swelling.
--- NOTE | ~2022-12-27 | XR_ITS ---
EXAMINATION: XR hand LT 2V, XR hand RT 2V CLINICAL INFORMATION: Reason for Exam punching wall COMPARISON: None. TECHNIQUE: PA, oblique and lateral of each hand FINDINGS: No acute fracture or dislocation. Joint spaces and articular surfaces are maintained. Soft tissues unremarkable without radiopaque foreign body. XR/XR hand RT 2V IMPRESSION: No acute fracture or dislocation of either hand.
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
--- NOTE | ~2022-12-27 | XR_ITS ---
EXAMINATION: XR LUMBOSACRAL SPINE CLINICAL INFORMATION: Back pain. COMPARISON: Lumbar spine radiographs dated 03/02/2023. TECHNIQUE: Three views of the lumbosacral spine. FINDINGS: Normal vertebral body alignment. The lumbar lordosis is maintained. No acute fracture or subluxation. No loss of vertebral body or intervertebral disc height. No lytic or blastic osseous lesion. Zcdwcmzw-vf-[id number] stool burden, consistent with constipation. XR/XR lumbar spine 2-3V IMPRESSION: 1. No acute osseous abnormality. 2. Dkglizyw-vt-yeyyct stool burden, consistent with constipation.
--- NOTE | ~2022-12-27 | XR_ITS ---
EXAMINATION: XR THORACOLUMBAR SPINE CLINICAL INFORMATION: Thoracic back pain radiculopathy. Scoliosis. COMPARISON: 02/14/2023 TECHNIQUE: 2 views, 3 images of the thoracic spine. FINDINGS: No acute fracture or subluxation. There is slightly low scoliosis of the lower thoracic spine. There is also a kyphotic appearance of the thoracic spine. Vertebral body heights are maintained. Disc spaces are maintained. The paravertebral soft tissues are unremarkable. The visualized lungs are clear. XR/XR thoracic spine 2V IMPRESSION: No acute abnormality. Mild kyphoscoliosis of the thoracic spine.
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
--- NOTE | ~2022-12-27 | XR_ITS ---
EXAMINATION: XR LUMBOSACRAL SPINE CLINICAL INFORMATION: Back pain COMPARISON: None available. TECHNIQUE: AP portable lumbar spine FINDINGS: Exam is limited due to portable technique and overlying bowel gas. No bone abnormality evident. There is a stool throughout the colon questionable for constipation. XR/XR lumbar spine 1V IMPRESSION: Limited but unremarkable exam.
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
--- NOTE | ~2022-12-27 | XR_ITS ---
EXAMINATION: XR ABDOMEN COMPLETE CLINICAL INDICATION: Abdominal pain, constipation COMPARISON: None available. TECHNIQUE: 2 views of the abdomen. FINDINGS: A moderate amount of air and stool seen throughout the colon consistent with history of constipation. No evidence of small bowel obstruction. No free air seen in the abdomen. No suspicious calcifications seen. XR/XR abdomen 3V IMPRESSION: Moderate amount of air and stool in the colon. No evidence of obstruction
--- NOTE | ~2022-12-27 | XR_ITS ---
EXAMINATION: XR ABDOMEN KUB CLINICAL INDICATION: Abdominal pain. COMPARISON: Abdominal radiograph 03/16/2023. TECHNIQUE: AP view of the abdomen. FINDINGS: Again noted gaseous distention of what appears to be a redundant transverse colon in the upper abdomen, overall similar compared to 03/16/2023. Otherwise, there is paucity of bowel gas in the remaining of the abdomen with moderate colonic stool content throughout the colon. Suspect hepatomegaly, similar compared to 03/16/2023. No acute osseous findings. XR/XR KUB IMPRESSION: 1. Nonspecific gaseous distention within a loop of bowel in the upper abdomen, likely transverse colon, stable compared to 03/16/2023. 2. Moderate colonic stool content. 3. Hepatomegaly.
[2022-12-27 16:31] VITALS: BP 130/98; PULSE 84; O2SAT 98
[2022-12-27 16:37] VITALS: BP 99/63; PULSE 96; RESP 18; TEMP 36.4; O2SAT 96; BMI 29.5
--- NOTE | 2022-12-27 16:42 | PC.NURSE ---
if patient ask for number for coni CPD its in patients chart
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
[2022-12-27 17:10] LABS: Appearance Urine Turbid; Color Urine Dark Yellow; Glucose Urine UA Negative (Negative); Leukocyte Esterase Urine Small (1+) (Negative); Nitrite Urine Negative (Negative); PH 6.5 (5.0-9.0); Specific Gravity - Urine >= 1.030 (1.005-1.025); UMIC TRIGGER UACC YES; Urine Blood Negative (Negative); Urine Ketones Trace mg/dL (Negative); Urine Protein Negative (Neg-Trace)
[2022-12-27 17:12] LABS: Bacteria Urine 1+ (None Seen); Hyaline Casts Urine 0-2 /LPF (0-2); RBC Urine 0-2 /HPF (0-2); UACC Culture Trigger YES
[2022-12-27] MEDS: LORazepam 1 MG TABLET 2 MG PO (17:18)
[2022-12-27] MEDS: Lidocaine 4 % Cream KIT 1 APPL TOPICAL (17:18)
[2022-12-27 17:19] LABS: Amphetamine Screen Urine Not Detected (Not Detect); Barbiturates, Urine Not Detected (Not Detect); Benzodiazepines Screen Urine POSITIVE (Not Detect); Cannabinoid Screen Urine Not Detected (Not Detect); Cocaine Screen Urine Not Detected (Not Detect); Fentanyl, urine Not Detected (Not Detect); Opiate Screen Urine Not Detected (Not Detect); Phencyclidine Screen Urine Not Detected (Not Detect)
[2022-12-27 17:31] LABS: COVID-19 Test Negative (Negative); IDNOW Serial# 55D5AD1C
--- NOTE | 2022-12-27 18:36 | PHA.MEDREC ---
Pharmacy Consult ? Medication Reconciliation Pharmacy has completed the medication reconciliation.
--- NOTE | 2022-12-27 18:42 | MHC.CARE ---
Pt is a bedsearch from [facility]
[2022-12-27 20:19] LABS: Basophils Percent Auto 0.5 % (0-2); Eosinophils Absolute Auto 0.5 X10*3/uL (0.0-0.4); Hematocrit 37.7 % (37.0-47.0); Hemoglobin 12.8 g/dl (12.0-16.0); Imm Gran Abs Auto 0.04 X10*3/uL (0.00-0.03); Imm Gran Pct Auto 0.5 % (0.0-0.4); Lymphocytes Absolute Auto 3.5 X10*3/uL (1.2-4.9); Lymphocytes Percent Auto 46.9 % (20-40); MANUAL DIFF FLAG SCAN; Mean Corpuscular Hemoglobin 31.3 pg (27.0-33.0); Mean Corpuscular Volume 92.2 fL (80.0-98.0); Monocytes Absolute Auto 0.8 X10*3/uL (0.1-1.2); Monocytes Percent Auto 11.2 % (2-11); Neutrophils Absolute Auto 2.6 x10*3/uL (2.0-8.3); Neutrophils Percent Auto 34.9 % (45-73); PLT CLUMP 1; Red Blood Count 4.09 X10*6/uL (4.20-5.50); Red Cell Distribution Width 12.1 % (11.0-16.0); SCAN SMEAR FLAG 1
[2022-12-27 20:21] LABS: Platelet Count 117 X10*3/uL (160-400); White Blood Count 7.5 X10*3/uL (4.8-10.8)
[2022-12-27 20:25] VITALS: BP 104/67; PULSE 76; RESP 15; TEMP 36.6; O2SAT 95
[2022-12-27] MEDS: diphenhydrAMINE HCL 25 MG CAPSULE 50 MG PO (20:25)
[2022-12-27] MEDS: Divalproex Sodium ER 500 MG TAB.ER.24H 2500 MG PO (20:25)
[2022-12-27] MEDS: OLANZapine 10 MG TABLET 20 MG PO (20:26)
[2022-12-27] MEDS: cloNIDine HCL 0.1 MG TABLET PO (20:26)
[2022-12-27] MEDS: traZODone HCL 100 MG TABLET PO (20:26)
[2022-12-27] MEDS: Famotidine 20 MG TABLET PO (20:26)
[2022-12-27] MEDS: Multivitamin TABLET 1 TAB PO (20:26)
[2022-12-27] MEDS: Sennosides/Docusate Sodium TABLET 1 TAB PO (20:26)
[2022-12-27 20:40] LABS: Acetaminophen LAB < 17 mcg/mL (<30); Alanine Aminotransferase 14 U/L (0-31); Albumin Level 3.7 g/dL (3.5-5.0); Alkaline Phosphatase 48 U/L (39-117); Anion Gap 16 (12-20); Aspartate Amino Transferase 30 U/L (5-31); Bilirubin Total 0.3 mg/dL (0.0-1.0); Blood Urea Nitrogen 22 mg/dL (9-16); Calcium 9.4 mg/dL (8.4-10.2); Carbon Dioxide 20 mmol/L (22-29); Chloride 110 mmol/L (96-108); Creatinine Clr Calc Pharmacy 152.5; Estimated Glomerular Filt Rate > 60; Ethanol < 10 mg/dL; Glucose Random 88 mg/dL (60-115); Magnesium 1.7 mg/dL (1.6-2.6); Potassium 4.6 mmol/L (3.3-5.1); Salicylate < 5.0 mg/dL (15-30); Sodium 141 mmol/L (135-145); Total Protein 6.7 g/dL (6.5-8.0)
[2022-12-27 21:03] LABS: SLIDE REVIEW VERIFIED
[2022-12-27] MEDS: Melatonin 3 MG TABLET PO (21:52)
[2022-12-27] MEDS: Ziprasidone 20 MG CAPSULE PO (21:52)
[2022-12-27 23:15] VITALS: BP 110/69; PULSE 74; RESP 16; TEMP 36.6; O2SAT 98
--- NOTE | 2022-12-28 | ECG_ITS ---
Test Reason : clearance Blood Pressure : / mmHG Vent. Rate : 080 BPM Atrial Rate : 080 BPM P-R Int : 140 ms QRS Dur : 082 ms QT Int : 400 ms P-R-T Axes : 058 078 062 degrees QTc Int : 461 ms Normal sinus rhythm Normal ECG When compared with ECG of 03-DEC-2022 10:11, No significant change was found Referred By: Mario Vargas Electronically Signed By:MADISON ROBERTS
--- NOTE | 2022-12-28 06:10 | PC.NURSE ---
Patient slept through the night, no distress observed/reported, behavior non concerning, disposition per care team is section 12 inpatient bed search, pre-accepted to M3/5, medication compliant, VSS, will continue to monitor.
[2022-12-28] MEDS: cloNIDine HCL 0.1 MG TABLET PO ×3 (10:03→22:18)
[2022-12-28] MEDS: FLUoxetine HCl 20 MG CAPSULE PO (10:04)
[2022-12-28] MEDS: Sennosides/Docusate Sodium TABLET 1 TAB PO ×2 (10:04→22:18)
[2022-12-28 11:52] VITALS: BP 94/46; PULSE 76; RESP 15; TEMP 37.3; O2SAT 97
[2022-12-28 14:05] VITALS: BP 113/57; PULSE 92; RESP 16; TEMP 36.6; O2SAT 99
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
[2022-12-28 16:15] VITALS: BP 108/60; PULSE 82; RESP 14; TEMP 36.6
[2022-12-28] MEDS: OLANZapine 10 MG TABLET 20 MG PO (22:17)
[2022-12-28] MEDS: traZODone HCL 100 MG TABLET PO (22:18)
[2022-12-28] MEDS: Multivitamin TABLET 1 TAB PO (22:18)
[2022-12-28] MEDS: diphenhydrAMINE HCL 25 MG CAPSULE 50 MG PO (22:18)
[2022-12-28] MEDS: Divalproex Sodium ER 500 MG TAB.ER.24H 2500 MG PO (22:18)
[2022-12-28] MEDS: Famotidine 20 MG TABLET PO (22:18)
[2022-12-28] MEDS: NaPROXEN 500 MG TABLET PO (22:27)
[2022-12-28] MEDS: ALPRAZolam 0.5 MG TABLET PO (22:34)
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
[2022-12-29] MEDS: FLUoxetine HCl 20 MG CAPSULE 40 MG PO (13:27)
[2022-12-29] MEDS: Sennosides/Docusate Sodium TABLET 1 TAB PO ×2 (13:27→21:42)
[2022-12-29 13:39] VITALS: BP 109/67; PULSE 103; RESP 18; TEMP 36.4; O2SAT 97
[2022-12-29 14:55] VITALS: BP 109/67
[2022-12-29] MEDS: cloNIDine HCL 0.1 MG TABLET PO ×2 (14:58→21:40)
[2022-12-29] MEDS: diphenhydrAMINE HCL 25 MG CAPSULE 50 MG PO (21:40)
[2022-12-29] MEDS: Divalproex Sodium ER 500 MG TAB.ER.24H 2500 MG PO (21:40)
[2022-12-29] MEDS: Famotidine 20 MG TABLET PO (21:41)
[2022-12-29] MEDS: Melatonin 3 MG TABLET PO (21:42)
[2022-12-29] MEDS: traZODone HCL 100 MG TABLET PO (21:42)
[2022-12-29] MEDS: OLANZapine 10 MG TABLET 20 MG PO (21:42)
[2022-12-29] MEDS: Multivitamin TABLET 1 TAB PO (21:42)
[2022-12-29] MEDS: ALPRAZolam 0.5 MG TABLET PO (21:43)
[2022-12-30 06:00] VITALS: BP 120/68; PULSE 62; RESP 14; TEMP 36.7; O2SAT 97
[2022-12-30] MEDS: FLUoxetine HCl 20 MG CAPSULE 40 MG PO (08:13)
[2022-12-30] MEDS: Sennosides/Docusate Sodium TABLET 1 TAB PO ×2 (08:14→20:24)
[2022-12-30] MEDS: cloNIDine HCL 0.1 MG TABLET PO ×2 (14:31→20:23)
--- NOTE | 2022-12-30 17:24 | HO.PSYCHPN ---
Subjective Subjective Date of Service: 12/30/22 Reason For Visit: Mood Dysregulation Interim History: Met with patient; discussed with nursing Patient reports she is doing well. She is handling frustrating events on the unit and able to navigate through the multiple personalities and acuity going on. She reports she is very tired in the morning which bothers her. No side effects from increased Prozac; discussed her diagnosis and patient wanted to know more about autism; also discussed medication regimen and patient is wondering if she needs to be on Depakote at all. Mental Status Exam Mental Status Exam Narrative: Pt is alert and oriented; behavior is cooperative, calm; patient is not in distress; dressed in casual attire, mood is described as okay and affect congruent, sad, downcast; eye contact appropriate; Speech is normal rate; normal volume and prosody; some psychomotor retardation present; thought process is organized and goal directed; Thought content is on struggles, past trauma, treatment; otherwise pertinent to relevant topics and without any delusional content, paranoid ideations or grandiosity; no SI; no HI. No AVH and there is no evidence of perceptual disturbance.. Patients insight and judgment are impaired but improving Diagnostics Vital Signs (24Hr): Vital Signs - 24 hr 12/30/22 06:00 Temperature 98.0 F Pulse Rate 62 Respiratory Rate 14 Blood Pressure 120/68 Pulse Oximetry 97 Oxygen Delivery Method Room Air BMI result Body Mass Index 29.5 Labs 12/27/22 20:00 12/27/22 19:59 Medications Medications Current Medications Acetaminophen (Acetaminophen 325 Mg Tablet) 650 mg PO Q6H PRN PRN Reason: Headache/Pain Mild Scale (1-3) Al Hydroxide/Mg Hydroxide (Magnesium Hydrox/Alum Hydrox 30 Ml Oral.Susp) 30 ml PO Q6H PRN PRN Reason: Heartburn/Nausea Alprazolam (Alprazolam 0.5 Mg Tablet) 0.5 mg PO TID PRN PRN Reason: Anxiety Last Admin: 12/29/22 21:43 Dose: 0.5 mg Clonidine HCl (Clonidine Hcl 0.1 Mg Tablet) 0.1 mg PO BID@1400,2100 [facility]; Protocol Last Admin: 12/30/22 14:31 Dose: 0.1 mg Diphenhydramine HCl (Diphenhydramine Hcl 25 Mg Capsule) 50 mg PO BEDTIME [facility] Last Admin: 12/29/22 21:40 Dose: 50 mg Divalproex Sodium (Divalproex Sodium Er 500 Mg Tab.Er.24h) 2,500 mg PO BEDTIME [facility] Last Admin: 12/29/22 21:40 Dose: 2,500 mg Famotidine (Famotidine 20 Mg Tablet) 20 mg PO BEDTIME [facility] Last Admin: 12/29/22 21:41 Dose: 20 mg Fluoxetine HCl (Fluoxetine Hcl 20 Mg Capsule) 40 mg PO DAILY [facility] Last Admin: 12/30/22 08:13 Dose: 40 mg Loratadine (Loratadine 10 Mg Tablet) 10 mg PO DAILY PRN PRN Reason: congestion Magnesium Hydroxide (Milk Of Magnesia 30 Ml Oral.Susp) 30 ml PO DAILY PRN PRN Reason: Constipation Melatonin (Melatonin 3 Mg Tablet) 3 mg PO BEDTIME PRN PRN Reason: insomnia Last Admin: 12/29/22 21:42 Dose: 3 mg Multivitamins/Vitamin C (Multivitamin Tablet) 1 tab PO BEDTIME [facility] Last Admin: 12/29/22 21:42 Dose: 1 tab Naproxen (Naproxen 500 Mg Tablet) 500 mg PO Q12H PRN PRN Reason: mild pain Last Admin: 12/28/22 22:27 Dose: 500 mg Olanzapine (Olanzapine 10 Mg Tablet) 20 mg PO BEDTIME [facility] Last Admin: 12/29/22 21:42 Dose: 20 mg Senna/Docusate Sodium (Sennosides/Docusate Sodium Tablet) 1 tab PO BID [facility] Last Admin: 12/30/22 08:14 Dose: 1 tab Trazodone HCl (Trazodone Hcl 50 Mg Tablet) 50 mg PO BEDTIME PRN PRN Reason: insomnia Trazodone HCl (Trazodone Hcl 100 Mg Tablet) 100 mg PO BEDTIME [facility] Last Admin: 12/29/22 21:42 Dose: 100 mg Ziprasidone (Ziprasidone 20 Mg Capsule) 20 mg PO BID PRN PRN Reason: Agitation Last Admin: 12/27/22 21:52 Dose: 20 mg Allergies Allergies Allergy/AdvReac Type Severity Reaction Status Date / Time chlorpromazine Allergy Anaphylaxis Verified 12/27/22 16:37 [From Thorazine] nut - unspecified Allergy Anxiety Verified 12/27/22 16:37 haloperidol [From Haldol] AdvReac Agitated Verified 12/27/22 16:37 lithium AdvReac Hives Verified 12/27/22 16:37 Assessment & Plan Assessment & Plan (1) Autism: Status: Suspected Code(s): F84.0 - Autistic disorder (2) PTSD (post-traumatic stress disorder): Status: Suspected Code(s): F43.10 - Post-traumatic stress disorder, unspecified (3) Intermittent explosive disorder: Status: Acute Code(s): F63.81 - Intermittent explosive disorder (4) CHARLES positive: Status: Acute Code(s): R76.8 - Other specified abnormal immunological findings in serum (5) Chronic restrictive lung disease: Status: Acute Code(s): J98.4 - Other disorders of lung (6) Peripheral edema: Status: Acute Code(s): R60.9 - Edema, unspecified (7) Amenorrhea: Status: Acute Code(s): N91.2 - Amenorrhea, unspecified Plan HPI: Patient is a bright, kind 22-year-old female, well known to this service, with history of Autism, PTSD recently discharged from on 12/25/2022 (and recently dc'd from [facility] after 5 years) who re-presents 2 days later for resurgence of suicidal ideation, dissociative episode and having run out during therapy session, into the street trying to hit by traffic and then eloping again from crisis again trying to get hit by oncoming cars. This has happened after ever discharge since coming to [facility]. Patient reports that day she left she had the intrusive thought that I am gonna screw this up again which just built and built until it overwhelmed her. Patient says she tried very hard to resist self-harm but the constant intrusive thought was unrelenting. She reports that on the way into the therapist building she got triggered as setting and some other people around reminded her of [facility]; already being on edge, this launched her into a full-blown panic attack; she dissociated and ran into the street wanting to . Patient says she just cannot seem to control. She also worries that she is unsafe living at her grandmother's, whom she loves dearly, because her grandmother is not able to sense when patient is starting to unravel and cannot preemptively help ground her and prevent dysregulated/dissociate of episode; patient says that sometimes she is able to alert her grandmother that she is headed this direction but many time she is not. Patient says she needs to live in a place with staff who were trained who can help divert her from such episodes. Passive SI remains but none active. Patient does not want to and wants to continue with treatment therapy. It is unclear if patient meets full criteria for OCD diagnosis however she has OCD like symptoms and will thus increase Prozac which has thus far been well tolerated. Hospital course: 12/30 stabilizing; continue current treatment plan 1. ASD/PTSD/intermittent explosive disorder: Continue Depakote ER 2500 mg q.h.s. (may very well tolerate lower dose as overseen by outpatient provider) Continue Zyprexa 20 mg q.h.s. (may very well tolerate lower dose as overseen by outpatient provider) INCREASE Prozac to 40mg (increased during this admission) Continue Xanax 0.5 mg t.i.d. p.r.n. for agitation; may give alone or with Geodon Continue Geodon 20 mg b.i.d. p.r.n. for agitation Continue Clonidine 0.1 mg t.i.d. Continue Trazodone 100 mg q.h.s. DC'd zyprexa 5mg in afternoon DC'd perphenazine (patient has no history of psychotic illness and very likely does not need this medication) Chronic conditions: 2. CHARLES positive appointment made with Rheumatology February 20 -daytime fatigue; b/l peripheral edema; mild dyspnea on exertion Discussed with Dr. Hamilton who recommends and following labs ordered: -Urine protein creatinine ratio -Rheumatoid factor -CCP antibody 3. Bilateral peripheral edema (lower/upper extrem):? Medication side effect (Zyprexa/Depakote)?? vs organic origin some reduction w/ lowering of medications Zyprexa and depakote r/u autoimune 4. Complaint of chronic struggles with inspiration: lungs CTA; CXR unremarkable Pulmonary function test: results reviewed, discussed with Dr. Melchor -elevated CHARLES and abnromal PFTs with a mild restriction with a mild diffusion impairment. -could be explained by her elevated BMI. -at this time dr. Melchor reports given lab work, at this time it does not look like she has lupus nor sjogrens nor scleroderma. Her cxr was good. needs a sleep study as an out pt (daytime drowsiness bringing up the possibility of obstructive sleep apnea) does not need an inpt ct scan but should f/up with outpt pulmonary and rheumatology. -in further discussion, Dr. Melchor agrees that CHARLES needs further evaluation, 5. Amenorrhea: Patient did have menses a few years ago while on control; has not had it since control discontinued about 2 years ago Labs: mostly WNL; will f/u with PCP/cutter out PSYCHIATRIC IMPRESSION/DIAGNOSIS:. Impression: Patient is a fun, intelligent, cooperative and friendly person. When she gets triggered by something she can decompensate severely, dissociate and become physically aggressive.? Patient is now diagnosed with ASD, PTSD, and intermittent explosive disorder.? From [facility], she carried the diagnosis of Schizoaffective disorder and mention of borderline personality disorder.? Both of these have been ruled out.? 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 She is linear, logical, articulate, insightful and organized in her thinking; she is organized in her behaviors.? Patient can have intrusive thoughts but only when triggered and this does not seem to be OCD.? She can have some rigid thinking in line with ASD.? Many of her dysregulated moments come from her PTSD being exacerbated.? Patient has well tolerated decrease of Zyprexa, decrease of Depakote and discontinuation of perphenazine. Primary dx: ASD. Patient's father and grandmother maintain that she met her milestones in childhood. 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 During childhood she attended [facility] [place], treatment center typically for people with autism; in [place] when at [facility], she carried a dx of ASD.? As observed on the unit, Patient frequently rocks back and forth, when standing or sitting, while talking to others or calming herself down.? Patient does not have a sense of a person's personal space and will get much to close to a person when talking; she is redirectable and apologizes but she is unaware she is doing it and does not get verbal cues when conversation participant is backing away or trying to end a conversation; though redirectable, she will again get too close, again unaware.? In the milieu with peers, While she will sometimes spend time in the vicinity of others, she is mostly alongside people and not directly interacting with them.? That said, she will directly interact with staff. Patient does make eye contact, however she stares the entire time she is engaged. ? She can have a logical conversation, however she is concrete Patient has a blunted affect and though she can smile and laugh, she is otherwise expressionless with blunted affect. Patient has in flexibility regarding food when it is not as expected patient can get severely dysregulated Patient has some hypo-reactivity to loud noises and crowds of people. Conversely, She does get jokes, even subtle ones. Symptoms have clearly made life functioning extremely difficult.? It is unclear if patient has had neuropsych testing. She did spend time at [facility]. Regarding PTSD: Patient has a history of trauma from both childhood experiences, as well as trauma that occurred while on inpatient unit at [facility] and [place].? She has also been institutionalized since a young age, away from her mother and father, feeling abandoned.? She can have several regressed behaviors and some child-like interests. Regarding Dissociative Disorder:? Patient has episodes of depersonalization and derealization which the typically arise when triggered and during which time she will feel detached from herself, from her body and feel as if things are unreal and dream like, with out a sense of time; after they conclude and she is again in the present, she can be upset about some behaviors she engaged in during the dissociate period once made aware. Not BPD: Regarding past references to borderline personality disorder, Slusher Operator and team agree there have been no axis II traits expressed throughout her time in the hospital; none could be cleaned from records No psychotic illness: no psychotic symptoms past or present Patient educated on: diagnosis and medication risk/benefits Informed Consent: understands Reason for contiued inpatient stay Substantial Risk for: rapid decompensation Time Spent With Patient Time: Total time managing care of this patient today ____ minutes.
[2022-12-30 18:00] VITALS: BP 121/58; PULSE 87; RESP 16; TEMP 36.8; O2SAT 97
[2022-12-30] MEDS: diphenhydrAMINE HCL 25 MG CAPSULE 50 MG PO (20:23)
[2022-12-30] MEDS: traZODone HCL 100 MG TABLET PO (20:23)
[2022-12-30] MEDS: Famotidine 20 MG TABLET PO (20:23)
[2022-12-30] MEDS: OLANZapine 10 MG TABLET 20 MG PO (20:23)
[2022-12-30] MEDS: Multivitamin TABLET 1 TAB PO (20:23)
[2022-12-30] MEDS: Divalproex Sodium ER 500 MG TAB.ER.24H 2500 MG PO (20:24)
[2022-12-31] MEDS: traZODone HCL 50 MG TABLET PO (00:54)
[2022-12-31] MEDS: Melatonin 3 MG TABLET PO (00:55)
[2022-12-31] MEDS: Sennosides/Docusate Sodium TABLET 1 TAB PO ×2 (07:51→23:04)
[2022-12-31] MEDS: FLUoxetine HCl 20 MG CAPSULE 40 MG PO (07:51)
[2022-12-31 08:21] VITALS: BP 94/54; PULSE 81; RESP 14; TEMP 36.3; O2SAT 96
[2022-12-31] MEDS: Magnesium Hydrox/Alum Hydrox 30 ML ORAL.SUSP PO (08:29)
--- NOTE | 2022-12-31 10:26 | HO.PSYCHPN ---
Subjective Subjective Date of Service: 12/31/22 Reason For Visit: Mood Dysregulation Interim History: Met with patient; discussed with team Patient up much earlier today, socializing in the milieu. She says she is doing okay. Complains of GERD in the morning and asks for medication Mental Status Exam Mental Status Exam Narrative: Pt is alert and oriented; behavior is cooperative, calm; patient is not in distress; dressed in casual attire, mood is described as okay and affect congruent; eye contact appropriate; Speech is normal rate; normal volume and prosody; some psychomotor retardation present; thought process is organized and goal directed; Thought content is on struggles, past trauma, treatment; otherwise pertinent to relevant topics and without any delusional content, paranoid ideations or grandiosity; no SI; no HI. No AVH and there is no evidence of perceptual disturbance.. Patients insight and judgment are impaired but improving and approaching baseline. Diagnostics Vital Signs (24Hr): Vital Signs - 24 hr 12/30/22 18:00 12/31/22 08:21 Temperature 98.3 F 97.4 F Pulse Rate 87 81 Respiratory Rate 16 14 Blood Pressure 121/58 L 94/54 L Pulse Oximetry 97 96 Oxygen Delivery Method Room Air Room Air BMI result Body Mass Index 29.5 Labs 12/27/22 20:00 12/27/22 19:59 Medications Medications Current Medications Acetaminophen (Acetaminophen 325 Mg Tablet) 650 mg PO Q6H PRN PRN Reason: Headache/Pain Mild Scale (1-3) Al Hydroxide/Mg Hydroxide (Magnesium Hydrox/Alum Hydrox 30 Ml Oral.Susp) 30 ml PO Q6H PRN PRN Reason: Heartburn/Nausea Last Admin: 12/31/22 08:29 Dose: 30 ml Alprazolam (Alprazolam 0.5 Mg Tablet) 0.5 mg PO TID PRN PRN Reason: Anxiety Last Admin: 12/29/22 21:43 Dose: 0.5 mg Clonidine HCl (Clonidine Hcl 0.1 Mg Tablet) 0.1 mg PO BID@1400,2100 OSCAR; Protocol Last Admin: 12/30/22 20:23 Dose: 0.1 mg Diphenhydramine HCl (Diphenhydramine Hcl 25 Mg Capsule) 50 mg PO BEDTIME [facility]SCAR Last Admin: 12/30/22 20:23 Dose: 50 mg Divalproex Sodium (Divalproex Sodium Er 500 Mg Tab.Er.24h) 2,500 mg PO BEDTIME [facility] Last Admin: 12/30/22 20:24 Dose: 2,500 mg Famotidine (Famotidine 20 Mg Tablet) 20 mg PO BEDTIME [facility] Last Admin: 12/30/22 20:23 Dose: 20 mg Fluoxetine HCl (Fluoxetine Hcl 20 Mg Capsule) 40 mg PO DAILY [facility] Last Admin: 12/31/22 07:51 Dose: 40 mg Loratadine (Loratadine 10 Mg Tablet) 10 mg PO DAILY PRN PRN Reason: congestion Magnesium Hydroxide (Milk Of Magnesia 30 Ml Oral.Susp) 30 ml PO DAILY PRN PRN Reason: Constipation Melatonin (Melatonin 3 Mg Tablet) 3 mg PO BEDTIME PRN PRN Reason: insomnia Last Admin: 12/31/22 00:55 Dose: 3 mg Multivitamins/Vitamin C (Multivitamin Tablet) 1 tab PO BEDTIME [facility] Last Admin: 12/30/22 20:23 Dose: 1 tab Naproxen (Naproxen 500 Mg Tablet) 500 mg PO Q12H PRN PRN Reason: mild pain Last Admin: 12/28/22 22:27 Dose: 500 mg Olanzapine (Olanzapine 10 Mg Tablet) 20 mg PO BEDTIME [facility] Last Admin: 12/30/22 20:23 Dose: 20 mg Senna/Docusate Sodium (Sennosides/Docusate Sodium Tablet) 1 tab PO BID [facility] Last Admin: 12/31/22 07:51 Dose: 1 tab Trazodone HCl (Trazodone Hcl 50 Mg Tablet) 50 mg PO BEDTIME PRN PRN Reason: insomnia Last Admin: 12/31/22 00:54 Dose: 50 mg Trazodone HCl (Trazodone Hcl 100 Mg Tablet) 100 mg PO BEDTIME [facility] Last Admin: 12/30/22 20:23 Dose: 100 mg Ziprasidone (Ziprasidone 20 Mg Capsule) 20 mg PO BID PRN PRN Reason: Agitation Last Admin: 12/27/22 21:52 Dose: 20 mg Allergies Allergies Allergy/AdvReac Type Severity Reaction Status Date / Time chlorpromazine Allergy Anaphylaxis Verified 12/27/22 16:37 [From Thorazine] nut - unspecified Allergy Anxiety Verified 12/27/22 16:37 haloperidol [From Haldol] AdvReac Agitated Verified 12/27/22 16:37 lithium AdvReac Hives Verified 12/27/22 16:37 Assessment & Plan Assessment & Plan (1) Autism: Status: Suspected Code(s): F84.0 - Autistic disorder (2) PTSD (post-traumatic stress disorder): Status: Suspected Code(s): F43.10 - Post-traumatic stress disorder, unspecified (3) Intermittent explosive disorder: Status: Acute Code(s): F63.81 - Intermittent explosive disorder (4) CHARLES positive: Status: Acute Code(s): R76.8 - Other specified abnormal immunological findings in serum (5) Chronic restrictive lung disease: Status: Acute Code(s): J98.4 - Other disorders of lung (6) Peripheral edema: Status: Acute Code(s): R60.9 - Edema, unspecified (7) Amenorrhea: Status: Acute Code(s): N91.2 - Amenorrhea, unspecified Plan HPI: Patient is a bright, kind 22-year-old female, well known to this service, with history of Autism, PTSD recently discharged from on 12/25/2022 (and recently dc'd from [facility] after 5 years) who re-presents 2 days later for resurgence of suicidal ideation, dissociative episode and having run out during therapy session, into the street trying to hit by traffic and then eloping again from crisis again trying to get hit by oncoming cars. This has happened after ever discharge since coming to [facility]. Patient reports that day she left she had the intrusive thought that I am gonna screw this up again which just built and built until it overwhelmed her. Patient says she tried very hard to resist self-harm but the constant intrusive thought was unrelenting. She reports that on the way into the therapist building she got triggered as setting and some other people around reminded her of [facility]; already being on edge, this launched her into a full-blown panic attack; she dissociated and ran into the street wanting to . Patient says she just cannot seem to control. She also worries that she is unsafe living at her grandmother's, whom she loves dearly, because her grandmother is not able to sense when patient is starting to unravel and cannot preemptively help ground her and prevent dysregulated/dissociate of episode; patient says that sometimes she is able to alert her grandmother that she is headed this direction but many time she is not. Patient says she needs to live in a place with staff who were trained who can help divert her from such episodes. Passive SI remains but none active. Patient does not want to and wants to continue with treatment therapy. It is unclear if patient meets full criteria for OCD diagnosis however she has OCD like symptoms and will thus increase Prozac which has thus far been well tolerated. Hospital course: 12/30 stabilizing; continue current treatment plan 12/31 patient continues to stabilize; no change in medications at this time however will likely seek to reduce possibly Depakote her Zyprexa level; may increase Prozac for PTSD/OCD like symptoms 1. ASD/PTSD/intermittent explosive disorder: Continue Depakote ER 2500 mg q.h.s. (may very well tolerate lower dose as overseen by outpatient provider) Continue Zyprexa 20 mg q.h.s. (may very well tolerate lower dose as overseen by outpatient provider) INCREASE Prozac to 40mg (increased during this admission) Continue Xanax 0.5 mg t.i.d. p.r.n. for agitation; may give alone or with Geodon Continue Geodon 20 mg b.i.d. p.r.n. for agitation Continue Clonidine 0.1 mg t.i.d. Continue Trazodone 100 mg q.h.s. DC'd zyprexa 5mg in afternoon DC'd perphenazine (patient has no history of psychotic illness and very likely does not need this medication) Chronic conditions: 2. CHARLES positive appointment made with Rheumatology February 20 -daytime fatigue; b/l peripheral edema; mild dyspnea on exertion Discussed with Dr. Hamilton who recommends and following labs ordered: -Urine protein creatinine ratio -Rheumatoid factor -CCP antibody 3. Bilateral peripheral edema (lower/upper extrem):? Medication side effect (Zyprexa/Depakote)?? vs organic origin some reduction w/ lowering of medications Zyprexa and depakote r/u autoimune 4. Complaint of chronic struggles with inspiration: lungs CTA; CXR unremarkable Pulmonary function test: results reviewed, discussed with Dr. Melchor -elevated CHARLES and abnromal PFTs with a mild restriction with a mild diffusion impairment. -could be explained by her elevated BMI. -at this time dr. Melchor reports given lab work, at this time it does not look like she has lupus nor sjogrens nor scleroderma. Her cxr was good. needs a sleep study as an out pt (daytime drowsiness bringing up the possibility of obstructive sleep apnea) does not need an inpt ct scan but should f/up with outpt pulmonary and rheumatology. -in further discussion, Dr. Melchor agrees that CHARLES needs further evaluation, 5. 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 Impression: Patient is a fun, intelligent, cooperative and friendly person. When she gets triggered by something she can decompensate severely, dissociate and become physically aggressive.? Patient is now diagnosed with ASD, PTSD, and intermittent explosive disorder.? From [facility], she carried the diagnosis of Schizoaffective disorder and mention of borderline personality disorder.? Both of these have been ruled out.? 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 She is linear, logical, articulate, insightful and organized in her thinking; she is organized in her behaviors.? Patient can have intrusive thoughts but only when triggered and this does not seem to be OCD.? She can have some rigid thinking in line with ASD.? Many of her dysregulated moments come from her PTSD being exacerbated.? Patient has well tolerated decrease of Zyprexa, decrease of Depakote and discontinuation of perphenazine. Primary dx: ASD. Patient's father and grandmother maintain that she met her milestones in childhood. 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 During childhood she attended [facility] in [place], treatment center typically for people with autism; in [place] when at [facility], she carried a dx of ASD.? As observed on the unit, Patient frequently rocks back and forth, when standing or sitting, while talking to others or calming herself down.? Patient does not have a sense of a person's personal space and will get much to close to a person when talking; she is redirectable and apologizes but she is unaware she is doing it and does not get verbal cues when conversation participant is backing away or trying to end a conversation; though redirectable, she will again get too close, again unaware.? In the milieu with peers, While she will sometimes spend time in the vicinity of others, she is mostly alongside people and not directly interacting with them.? That said, she will directly interact with staff. Patient does make eye contact, however she stares the entire time she is engaged. ? She can have a logical conversation, however she is concrete Patient has a blunted affect and though she can smile and laugh, she is otherwise expressionless with blunted affect. Patient has in flexibility regarding food when it is not as expected patient can get severely dysregulated Patient has some hypo-reactivity to loud noises and crowds of people. Conversely, She does get jokes, even subtle ones. Symptoms have clearly made life functioning extremely difficult.? It is unclear if patient has had neuropsych testing. She did spend time at [facility]. Regarding PTSD: Patient has a history of trauma from both childhood experiences, as well as trauma that occurred while on inpatient unit at [facility] and [place].? She has also been institutionalized since a young age, away from her mother and father, feeling abandoned.? She can have several regressed behaviors and some child-like interests. Regarding Dissociative Disorder:? Patient has episodes of depersonalization and derealization which the typically arise when triggered and during which time she will feel detached from herself, from her body and feel as if things are unreal and dream like, with out a sense of time; after they conclude and she is again in the present, she can be upset about some behaviors she engaged in during the dissociate period once made aware. Not BPD: Regarding past references to borderline personality disorder, Space Systems Operations Manager and team agree there have been no axis II traits expressed throughout her time in the hospital; none could be cleaned from records No psychotic illness: no psychotic symptoms past or present Patient educated on: diagnosis and medication risk/benefits Informed Consent: understands Reason for contiued inpatient stay Substantial Risk for: rapid decompensation Time Spent With Patient Time: Total time managing care of this patient today ____ minutes.
[2022-12-31] MEDS: Famotidine 20 MG TABLET PO ×2 (12:09→23:04)
[2022-12-31] MEDS: cloNIDine HCL 0.1 MG TABLET PO ×2 (13:28→23:03)
[2022-12-31 13:29] VITALS: BP 134/80; PULSE 83
[2022-12-31] MEDS: ALPRAZolam 0.5 MG TABLET PO (14:53)
[2022-12-31] MEDS: Ziprasidone 20 MG CAPSULE PO (14:53)
[2022-12-31 22:50] VITALS: BP 105/68; PULSE 75; TEMP 36.6
[2022-12-31] MEDS: Divalproex Sodium ER 500 MG TAB.ER.24H 2500 MG PO (23:01)
[2022-12-31] MEDS: Multivitamin TABLET 1 TAB PO (23:01)
[2022-12-31] MEDS: OLANZapine 10 MG TABLET 20 MG PO (23:02)
[2022-12-31] MEDS: diphenhydrAMINE HCL 25 MG CAPSULE 50 MG PO (23:02)
[2022-12-31] MEDS: traZODone HCL 100 MG TABLET PO (23:03)
[2023-01-01] MEDS: Sennosides/Docusate Sodium TABLET 1 TAB PO ×2 (12:34→23:13)
[2023-01-01] MEDS: FLUoxetine HCl 20 MG CAPSULE 40 MG PO (12:34)
--- NOTE | 2023-01-01 12:44 | HO.PSYCHPN ---
Subjective Subjective Date of Service: 01/01/23 Reason For Visit: Mood Dysregulation Interim History: met with patient; discussed with team Patient reports she is overall doing okay; feeling lonely but coping and interacting with peers; hoping for therapy on unit. Mental Status Exam Mental Status Exam Narrative: Pt is alert and oriented; behavior is cooperative, calm; patient is not in distress; dressed in casual attire, mood is described as okay and affect congruent; eye contact appropriate; Speech is normal rate; normal volume and prosody; some psychomotor retardation present; thought process is organized and goal directed; Thought content is on struggles, past trauma, treatment; otherwise pertinent to relevant topics and without any delusional content, paranoid ideations or grandiosity; no SI; no HI. No AVH and there is no evidence of perceptual disturbance.. Patients insight and judgment are impaired but improving and approaching baseline. Diagnostics Vital Signs (24Hr): Vital Signs - 24 hr 12/31/22 13:29 12/31/22 22:50 Temperature 97.8 F Pulse Rate 83 75 Blood Pressure 134/80 105/68 BMI result Body Mass Index 29.5 Labs 12/27/22 20:00 12/27/22 19:59 Medications Medications Current Medications Acetaminophen (Acetaminophen 325 Mg Tablet) 650 mg PO Q6H PRN PRN Reason: Headache/Pain Mild Scale (1-3) Al Hydroxide/Mg Hydroxide (Magnesium Hydrox/Alum Hydrox 30 Ml Oral.Susp) 30 ml PO Q6H PRN PRN Reason: Heartburn/Nausea Last Admin: 12/31/22 08:29 Dose: 30 ml Alprazolam (Alprazolam 0.5 Mg Tablet) 0.5 mg PO TID PRN PRN Reason: Anxiety Last Admin: 12/31/22 14:53 Dose: 0.5 mg Clonidine HCl (Clonidine Hcl 0.1 Mg Tablet) 0.1 mg PO BID@1400,2100 [facility]; Protocol Last Admin: 12/31/22 23:03 Dose: 0.1 mg Diphenhydramine HCl (Diphenhydramine Hcl 25 Mg Capsule) 50 mg PO BEDTIME [facility]SC[facility] Last Admin: 12/31/22 23:02 Dose: 50 mg Divalproex Sodium (Divalproex Sodium Er 500 Mg Tab.Er.24h) 2,500 mg PO BEDTIME OSCAR Last Admin: 03/13/23 23:01 Dose: 2,500 mg Famotidine (Famotidine 20 Mg Tablet) 20 mg PO BEDTIME [facility] Last Admin: 12/31/22 23:04 Dose: 20 mg Famotidine (Famotidine 20 Mg Tablet) 20 mg PO DAILY PRN PRN Reason: GERD Fluoxetine HCl (Fluoxetine Hcl 20 Mg Capsule) 40 mg PO DAILY [facility] Last Admin: 01/01/23 12:34 Dose: 40 mg Loratadine (Loratadine 10 Mg Tablet) 10 mg PO DAILY PRN PRN Reason: congestion Magnesium Hydroxide (Milk Of Magnesia 30 Ml Oral.Susp) 30 ml PO DAILY PRN PRN Reason: Constipation Melatonin (Melatonin 3 Mg Tablet) 3 mg PO BEDTIME PRN PRN Reason: insomnia Last Admin: 12/31/22 00:55 Dose: 3 mg Multivitamins/Vitamin C (Multivitamin Tablet) 1 tab PO BEDTIME [facility] Last Admin: 12/31/22 23:01 Dose: 1 tab Naproxen (Naproxen 500 Mg Tablet) 500 mg PO Q12H PRN PRN Reason: mild pain Last Admin: 12/28/22 22:27 Dose: 500 mg Olanzapine (Olanzapine 10 Mg Tablet) 20 mg PO BEDTIME [facility] Last Admin: 12/31/22 23:02 Dose: 20 mg Senna/Docusate Sodium (Sennosides/Docusate Sodium Tablet) 1 tab PO BID [facility] Last Admin: 01/01/23 12:34 Dose: 1 tab Trazodone HCl (Trazodone Hcl 50 Mg Tablet) 50 mg PO BEDTIME PRN PRN Reason: insomnia Last Admin: 12/31/22 00:54 Dose: 50 mg Trazodone HCl (Trazodone Hcl 100 Mg Tablet) 100 mg PO BEDTIME [facility] Last Admin: 12/31/22 23:03 Dose: 100 mg Ziprasidone (Ziprasidone 20 Mg Capsule) 20 mg PO BID PRN PRN Reason: Agitation Last Admin: 12/31/22 14:53 Dose: 20 mg Allergies Allergies Allergy/AdvReac Type Severity Reaction Status Date / Time chlorpromazine Allergy Anaphylaxis Verified 12/27/22 16:37 [From Thorazine] nut - unspecified Allergy Anxiety Verified 12/27/22 16:37 haloperidol [From Haldol] AdvReac Agitated Verified 12/27/22 16:37 lithium AdvReac Hives Verified 12/27/22 16:37 Assessment & Plan Assessment & Plan (1) Autism: Status: Suspected Code(s): F84.0 - Autistic disorder (2) PTSD (post-traumatic stress disorder): Status: Suspected Code(s): F43.10 - Post-traumatic stress disorder, unspecified (3) Intermittent explosive disorder: Status: Acute Code(s): F63.81 - Intermittent explosive disorder (4) CHARLES positive: Status: Acute Code(s): R76.8 - Other specified abnormal immunological findings in serum (5) Chronic restrictive lung disease: Status: Acute Code(s): J98.4 - Other disorders of lung (6) Peripheral edema: Status: Acute Code(s): R60.9 - Edema, unspecified (7) Amenorrhea: Status: Acute Code(s): N91.2 - Amenorrhea, unspecified Plan HPI: Patient is a bright, kind 22-year-old female, well known to this service, with history of Autism, PTSD recently discharged from on 12/25/2022 (and recently dc'd from [facility] after 5 years) who re-presents 2 days later for resurgence of suicidal ideation, dissociative episode and having run out during therapy session, into the street trying to hit by traffic and then eloping again from crisis again trying to get hit by oncoming cars. This has happened after ever discharge since coming to [facility]. Patient reports that day she left she had the intrusive thought that I am gonna screw this up again which just built and built until it overwhelmed her. Patient says she tried very hard to resist self-harm but the constant intrusive thought was unrelenting. She reports that on the way into the therapist building she got triggered as setting and some other people around reminded her of [facility]; already being on edge, this launched her into a full-blown panic attack; she dissociated and ran into the street wanting to . Patient says she just cannot seem to control. She also worries that she is unsafe living at her grandmother's, whom she loves dearly, because her grandmother is not able to sense when patient is starting to unravel and cannot preemptively help ground her and prevent dysregulated/dissociate of episode; patient says that sometimes she is able to alert her grandmother that she is headed this direction but many time she is not. Patient says she needs to live in a place with staff who were trained who can help divert her from such episodes. Passive SI remains but none active. Patient does not want to and wants to continue with treatment therapy. It is unclear if patient meets full criteria for OCD diagnosis however she has OCD like symptoms and will thus increase Prozac which has thus far been well tolerated. Hospital course: 12/30 stabilizing; continue current treatment plan 12/31 patient continues to stabilize; no change in medications at this time however will likely seek to reduce possibly Depakote her Zyprexa level; may increase Prozac for PTSD/OCD like symptoms 01/01 stabilizing 1. ASD/PTSD/intermittent explosive disorder: Continue Depakote ER 2500 mg q.h.s. (may very well tolerate lower dose as overseen by outpatient provider) Continue Zyprexa 20 mg q.h.s. (may very well tolerate lower dose as overseen by outpatient provider) INCREASE Prozac to 40mg (increased during this admission) Continue Xanax 0.5 mg t.i.d. p.r.n. for agitation; may give alone or with Geodon Continue Geodon 20 mg b.i.d. p.r.n. for agitation Continue Clonidine 0.1 mg t.i.d. Continue Trazodone 100 mg q.h.s. DC'd zyprexa 5mg in afternoon DC'd perphenazine (patient has no history of psychotic illness and very likely does not need this medication) Chronic conditions: 2. CHARLES positive appointment made with Rheumatology February 20 -daytime fatigue; b/l peripheral edema; mild dyspnea on exertion Discussed with Dr. Hamilton who recommends and following labs ordered: -Urine protein creatinine ratio -Rheumatoid factor -CCP antibody 3. Bilateral peripheral edema (lower/upper extrem):? Medication side effect (Zyprexa/Depakote)?? vs organic origin some reduction w/ lowering of medications Zyprexa and depakote r/u autoimune 4. Complaint of chronic struggles with inspiration: lungs CTA; CXR unremarkable Pulmonary function test: results reviewed, discussed with Dr. Melchor -elevated CHARLES and abnromal PFTs with a mild restriction with a mild diffusion impairment. -could be explained by her elevated BMI. -at this time dr. Melchor reports given lab work, at this time it does not look like she has lupus nor sjogrens nor scleroderma. Her cxr was good. needs a sleep study as an out pt (daytime drowsiness bringing up the possibility of obstructive sleep apnea) does not need an inpt ct scan but should f/up with outpt pulmonary and rheumatology. -in further discussion, Dr. Melchor agrees that CHARLES needs further evaluation, 5. Amenorrhea: Patient did have menses a few years ago while on control; has not had it since control discontinued about 2 years ago Labs: mostly WNL; will f/u with PCP/city planning engineer PSYCHIATRIC IMPRESSION/DIAGNOSIS:. Impression: Patient is a fun, intelligent, cooperative and friendly person. When she gets triggered by something she can decompensate severely, dissociate and become physically aggressive.? Patient is now diagnosed with ASD, PTSD, and intermittent explosive disorder.? From [facility], she carried the diagnosis of Schizoaffective disorder and mention of borderline personality disorder.? Both of these have been ruled out.? 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 She is linear, logical, articulate, insightful and organized in her thinking; she is organized in her behaviors.? Patient can have intrusive thoughts but only when triggered and this does not seem to be OCD.? She can have some rigid thinking in line with ASD.? Many of her dysregulated moments come from her PTSD being exacerbated.? Patient has well tolerated decrease of Zyprexa, decrease of Depakote and discontinuation of perphenazine. Primary dx: ASD. Patient's father and grandmother maintain that she met her milestones in childhood. 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 During childhood she attended [employer] [facility] [employer] [facility] [place], treatment center typically for people with autism; in [place] when at [facility], she carried a dx of ASD.? As observed on the unit, Patient frequently rocks back and forth, when standing or sitting, while talking to others or calming herself down.? Patient does not have a sense of a person's personal space and will get much to close to a person when talking; she is redirectable and apologizes but she is unaware she is doing it and does not get verbal cues when conversation participant is backing away or trying to end a conversation; though redirectable, she will again get too close, again unaware.? In the milieu with peers, While she will sometimes spend time in the vicinity of others, she is mostly alongside people and not directly interacting with them.? That said, she will directly interact with staff. Patient does make eye contact, however she stares the entire time she is engaged. ? She can have a logical conversation, however she is concrete Patient has a blunted affect and though she can smile and laugh, she is otherwise expressionless with blunted affect. Patient has in flexibility regarding food when it is not as expected patient can get severely dysregulated Patient has some hypo-reactivity to loud noises and crowds of people. Conversely, She does get jokes, even subtle ones. Symptoms have clearly made life functioning extremely difficult.? It is unclear if patient has had neuropsych testing. She did spend time at [facility]. Regarding PTSD: Patient has a history of trauma from both childhood experiences, as well as trauma that occurred while on inpatient unit at [facility] and [place].? She has also been institutionalized since a young age, away from her mother and father, feeling abandoned.? She can have several regressed behaviors and some child-like interests. Regarding Dissociative Disorder:? Patient has episodes of depersonalization and derealization which the typically arise when triggered and during which time she will feel detached from herself, from her body and feel as if things are unreal and dream like, with out a sense of time; after they conclude and she is again in the present, she can be upset about some behaviors she engaged in during the dissociate period once made aware. Not BPD: Regarding past references to borderline personality disorder, Help Desk Intern and team agree there have been no axis II traits expressed throughout her time in the hospital; none could be cleaned from records No psychotic illness: no psychotic symptoms past or present Patient educated on: diagnosis and therapeutic strategies Informed Consent: understands Reason for contiued inpatient stay Substantial Risk for: rapid decompensation Time Spent With Patient Time: Total time managing care of this patient today ____ minutes.
[2023-01-01 13:38] VITALS: BP 116/73; PULSE 78; RESP 16; TEMP 36.3; O2SAT 95
[2023-01-01 15:05] VITALS: BP 109/67; PULSE 99
[2023-01-01] MEDS: cloNIDine HCL 0.1 MG TABLET PO ×2 (15:08→23:12)
[2023-01-01 18:00] VITALS: BP 121/76; PULSE 91; RESP 16; TEMP 36.7; O2SAT 97
[2023-01-01] MEDS: ALPRAZolam 0.5 MG TABLET PO (22:20)
[2023-01-01 23:00] VITALS: BP 103/57; PULSE 107; TEMP 36.1
[2023-01-01] MEDS: Divalproex Sodium ER 500 MG TAB.ER.24H 2500 MG PO (23:09)
[2023-01-01] MEDS: diphenhydrAMINE HCL 25 MG CAPSULE 50 MG PO (23:11)
[2023-01-01] MEDS: traZODone HCL 100 MG TABLET PO (23:11)
[2023-01-01] MEDS: Famotidine 20 MG TABLET PO (23:11)
[2023-01-01] MEDS: OLANZapine 10 MG TABLET 20 MG PO (23:12)
[2023-01-01] MEDS: Multivitamin TABLET 1 TAB PO (23:12)
[2023-01-02 11:03] VITALS: BP 96/60; PULSE 79; RESP 16; TEMP 37; O2SAT 98
[2023-01-02] MEDS: Sennosides/Docusate Sodium TABLET 1 TAB PO ×2 (11:06→22:33)
[2023-01-02] MEDS: FLUoxetine HCl 20 MG CAPSULE 40 MG PO (11:06)
--- NOTE | 2023-01-02 12:32 | P.PNPSI_ITS ---
Subjective Subjective Date of Service: 01/02/23 Reason For Visit: Mood Dysregulation Interim History: met w/ patient; discussed with team pt shared that she had a tough night last night; she got dysregulated and took both Xanax and geodon PO. However, she continued to feel on verge of losing control and asked for a Geodon IM; she was only offered PO. Pt said it was difficult but she was eventually able to calm herself down. She was proud of herself for doing so, but thinks this was fortunate and is worried that IM won't be given in time going forward. Discussed meds; pt is hoping to see if some meds can be lowered as she's tired so much of the day; discussed lowering Depakote; will first change to sprinkles since she dislikes the large tabs; also this will make it BID dosing, Mental Status Exam Mental Status Exam Narrative: Pt is alert and oriented; behavior is cooperative, calm; patient is not in distress; dressed in casual attire, mood is described as okay and affect congruent; eye contact appropriate; Speech is normal rate; normal volume and prosody; some psychomotor retardation present; thought process is organized and goal directed; Thought content is on struggles, past trauma, treatment; otherwise pertinent to relevant topics and without any delusional content, paranoid ideations or grandiosity; no SI; no HI. No AVH and there is no evidence of perceptual disturbance.. Patients insight and judgment are fair and at baseline. Diagnostics Vital Signs (24Hr): Vital Signs - 24 hr 01/01/23 13:38 01/01/23 15:05 01/01/23 18:00 Temperature 97.4 F 98.0 F Pulse Rate 78 99 91 Respiratory Rate 16 16 Blood Pressure 116/73 109/67 121/76 Pulse Oximetry 95 97 Oxygen Delivery Method Room Air Room Air 01/01/23 23:00 01/02/23 11:03 Temperature 97.0 F 98.6 F Pulse Rate 107 H 79 Respiratory Rate 16 Blood Pressure 103/57 L 96/60 Pulse Oximetry 98 Oxygen Delivery Method Room Air BMI result Body Mass Index 29.5 Labs 12/27/22 20:00 12/27/22 19:59 Medications Medications Current Medications Acetaminophen (Acetaminophen 325 Mg Tablet) 650 mg PO Q6H PRN PRN Reason: Headache/Pain Mild Scale (1-3) Al Hydroxide/Mg Hydroxide (Magnesium Hydrox/Alum Hydrox 30 Ml Oral.Susp) 30 ml PO Q6H PRN PRN Reason: Heartburn/Nausea Last Admin: 12/31/22 08:29 Dose: 30 ml Alprazolam (Alprazolam 0.5 Mg Tablet) 0.5 mg PO TID PRN PRN Reason: Anxiety Last Admin: 01/01/23 22:20 Dose: 0.5 mg Clonidine HCl (Clonidine Hcl 0.1 Mg Tablet) 0.1 mg PO BID@1400,2100 [facility]; Protocol Last Admin: 01/01/23 23:12 Dose: 0.1 mg Diphenhydramine HCl (Diphenhydramine Hcl 25 Mg Capsule) 50 mg PO BEDTIME [facility] Last Admin: 01/01/23 23:11 Dose: 50 mg Divalproex Sodium (Divalproex Sodium Er 500 Mg Tab.Er.24h) 2,500 mg PO BEDTIME [facility] Last Admin: 01/01/23 23:09 Dose: 2,500 mg Famotidine (Famotidine 20 Mg Tablet) 20 mg PO BEDTIME [facility] Last Admin: 01/01/23 23:11 Dose: 20 mg Famotidine (Famotidine 20 Mg Tablet) 20 mg PO DAILY PRN PRN Reason: GERD Fluoxetine HCl (Fluoxetine Hcl 20 Mg Capsule) 40 mg PO DAILY [facility] Last Admin: 01/02/23 11:06 Dose: 40 mg Loratadine (Loratadine 10 Mg Tablet) 10 mg PO DAILY PRN PRN Reason: congestion Magnesium Hydroxide (Milk Of Magnesia 30 Ml Oral.Susp) 30 ml PO DAILY PRN PRN Reason: Constipation Melatonin (Melatonin 3 Mg Tablet) 3 mg PO BEDTIME PRN PRN Reason: insomnia Last Admin: 12/31/22 00:55 Dose: 3 mg Multivitamins/Vitamin C (Multivitamin Tablet) 1 tab PO BEDTIME [facility] Last Admin: 01/01/23 23:12 Dose: 1 tab Naproxen (Naproxen 500 Mg Tablet) 500 mg PO Q12H PRN PRN Reason: mild pain Last Admin: 12/28/22 22:27 Dose: 500 mg Olanzapine (Olanzapine 10 Mg Tablet) 20 mg PO BEDTIME [facility] Last Admin: 01/01/23 23:12 Dose: 20 mg Olanzapine (Olanzapine Odt 10 Mg Tab.Rapdis) 10 mg TRANSLINGU DAILY PRN PRN Reason: Psychosis Senna/Docusate Sodium (Sennosides/Docusate Sodium Tablet) 1 tab PO BID [facility] Last Admin: 01/02/23 11:06 Dose: 1 tab Trazodone HCl (Trazodone Hcl 50 Mg Tablet) 50 mg PO BEDTIME PRN PRN Reason: insomnia Last Admin: 12/31/22 00:54 Dose: 50 mg Trazodone HCl (Trazodone Hcl 100 Mg Tablet) 100 mg PO BEDTIME [facility] Last Admin: 01/01/23 23:11 Dose: 100 mg Ziprasidone (Ziprasidone 20 Mg Capsule) 20 mg PO BID PRN PRN Reason: Agitation Last Admin: 12/31/22 14:53 Dose: 20 mg Allergies Allergies Allergy/AdvReac Type Severity Reaction Status Date / Time chlorpromazine Allergy Anaphylaxis Verified 12/27/22 16:37 [From Thorazine] nut - unspecified Allergy Anxiety Verified 12/27/22 16:37 haloperidol [From Haldol] AdvReac Agitated Verified 12/27/22 16:37 lithium AdvReac Hives Verified 12/27/22 16:37 Assessment & Plan Assessment & Plan (1) Autism: Status: Suspected Code(s): F84.0 - Autistic disorder (2) PTSD (post-traumatic stress disorder): Status: Suspected Code(s): F43.10 - Post-traumatic stress disorder, unspecified (3) Intermittent explosive disorder: Status: Acute Code(s): F63.81 - Intermittent explosive disorder (4) CHARLES positive: Status: Acute Code(s): R76.8 - Other specified abnormal immunological findings in serum (5) Chronic restrictive lung disease: Status: Acute Code(s): J98.4 - Other disorders of lung (6) Peripheral edema: Status: Acute Code(s): R60.9 - Edema, unspecified (7) Amenorrhea: Status: Acute Code(s): N91.2 - Amenorrhea, unspecified Plan HPI: Patient is a bright, kind 22-year-old female, well known to this service, with history of Autism, PTSD recently discharged from on 12/25/2022 (and recently dc'd from [facility] after 5 years) who re-presents 2 days later for resurgence of suicidal ideation, dissociative episode and having run out during therapy session, into the street trying to hit by traffic and then eloping again from crisis again trying to get hit by oncoming cars. This has happened after ever discharge since coming to [facility]. Patient reports that day she left she had the intrusive thought that I am gonna screw this up again which just built and built until it overwhelmed her. Patient says she tried very hard to resist self-harm but the constant intrusive thought was unrelenting. She reports that on the way into the therapist building she got triggered as setting and some other people around reminded her of [facility]; already being on edge, this launched her into a full-blown panic attack; she dissociated and ran into the street wanting to . Patient says she just cannot seem to control. She also worries that she is unsafe living at her grandmother's, whom she loves dearly, because her grandmother is not able to sense when patient is starting to unravel and cannot preemptively help ground her and prevent dysregulated/dissociate of episode; patient says that sometimes she is able to alert her grandmother that she is headed this direction but many time she is not. Patient says she needs to live in a place with staff who were trained who can help divert her from such episodes. Passive SI remains but none active. Patient does not want to and wants to continue with treatment therapy. It is unclear if patient meets full criteria for OCD diagnosis however she has OCD like symptoms and will thus increase Prozac which has thus far been well tolerated. Hospital course: 12/30 stabilizing; continue current treatment plan 12/31 patient continues to stabilize; no change in medications at this time however will likely seek to reduce possibly Depakote her Zyprexa level; may increase Prozac for PTSD/OCD like symptoms 01/01 stabilizing 01/02 tough night, needing geodon prns; asked to change depakote to sprinkles and maybe lower dose since tired in daytime and pt may be stable at lower dose 1. ASD/PTSD/intermittent explosive disorder: CHANGED to Depakote sprinkles DR 1200mg bId (was Depakote ER 2500 mg q.h.s ...may try to lower dose) Continue Zyprexa 20 mg q.h.s. (may very well tolerate lower dose as overseen by outpatient provider) INCREASEd Prozac to 40mg (increased during this admission) Continue Xanax 0.5 mg t.i.d. p.r.n. for agitation; may give alone or with Geodon Continue Geodon 20 mg b.i.d. p.r.n. for agitation (*pt may get IM Geodon if requested for faster action) Continue Clonidine 0.1 mg t.i.d. Continue Trazodone 100 mg q.h.s. DC'd zyprexa 5mg in afternoon DC'd perphenazine (patient has no history of psychotic illness and very likely does not need this medication) Chronic conditions: 2. CHARLES positive appointment made with Rheumatology February 20 -daytime fatigue; b/l peripheral edema; mild dyspnea on exertion Discussed with Dr. Hamilton who recommends and following labs ordered: -Urine protein creatinine ratio -Rheumatoid factor -CCP antibody 3. Bilateral peripheral edema (lower/upper extrem):? Medication side effect (Zyprexa/Depakote)?? vs organic origin some reduction w/ lowering of medications Zyprexa and depakote r/u autoimune 4. Complaint of chronic struggles with inspiration: lungs CTA; CXR unremarkable Pulmonary function test: results reviewed, discussed with Dr. Melchor -elevated CHARLES and abnromal PFTs with a mild restriction with a mild diffusion impairment. -could be explained by her elevated BMI. -at this time dr. Melchor reports given lab work, at this time it does not look like she has lupus nor sjogrens nor scleroderma. Her cxr was good. needs a sleep study as an out pt (daytime drowsiness bringing up the possibility of obstructive sleep apnea) does not need an inpt ct scan but should f/up with outpt pulmonary and rheumatology. -in further discussion, Dr. Melchor agrees that CHARLES needs further evaluation, 5. Amenorrhea: Patient did have menses a few years ago while on control; has not had it since control discontinued about 2 years ago Labs: mostly WNL; will f/u with PCP/financial institution president PSYCHIATRIC IMPRESSION/DIAGNOSIS:. Impression: Patient is a fun, intelligent, cooperative and friendly person. When she gets triggered by something she can decompensate severely, dissociate and become physically aggressive.? Patient is now diagnosed with ASD, PTSD, and int ermittent explosive disorder.? From [facility], she carried the diagnosis of Schizoaffective disorder and mention of borderline personality disorder.? Both of these have been ruled out.? 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 She is linear, logical, articulate, insightful and organized in her thinking; she is organized in her behaviors.? Patient can have intrusive thoughts but only when triggered and this does not seem to be OCD.? She can have some rigid thinking in line with ASD.? Many of her dysregulated moments come from her PTSD being exacerbated.? Patient has well tolerated decrease of Zyprexa, decrease of Depakote and discontinuation of perphenazine. Primary dx: ASD. Patient's father and grandmother maintain that she met her milestones in childhood. 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 During childhood she attended [facility] in [place], treatment center typically for people with autism; in [place] when at [facility], she carried a dx of ASD.? As observed on the unit, Patient frequently rocks back and forth, when standing or sitting, while talking to others or calming herself down.? Patient does not have a sense of a person's personal space and will get much to close to a person when talking; she is redirectable and apologizes but she is unaware she is doing it and does not get verbal cues when conversation participant is backing away or trying to end a conversation; though redirectable, she will again get too close, again unaware.? In the milieu with peers, While she will sometimes spend time in the vicinity of others, she is mostly alongside people and not directly i nteracting with them.? That said, she will directly interact with staff. Patient does make eye contact, however she stares the entire time she is engaged. ? She can have a logical conversation, however she is concrete Patient has a blunted affect and though she can smile and laugh, she is otherwise expressionless with blunted affect. Patient has in flexibility regarding food when it is not as expected patient can get severely dysregulated Patient has some hypo-reactivity to loud noises and crowds of people. Conversely, She does get jokes, even subtle ones. Symptoms have clearly made life functioning extremely difficult.? It is unclear if patient has had neuropsych testing. She did spend time at [facility]. Regarding PTSD: Patient has a history of trauma from both childhood experiences, as well as trauma that occurred while on inpatient unit [facility] and [place].? She has also been institutionalized since a young age, away from her mother and father, feeling abandoned.? She can have several regressed behaviors and some child-like interests. Regarding Dissociative Disorder:? Patient has episodes of depersonalization and derealization which the typically arise when triggered and during which time she will feel detached from herself, from her body and feel as if things are unreal and dream like, with out a sense of time; after they conclude and she is again in the present, she can be upset about some behaviors she engaged in during the dissociate period once made aware. Not BPD: Regarding past references to borderline personality disorder, [employer]ist and team agree there have been no axis II traits expressed throughout her time in the hospital; none could be cleaned from records No psychotic illness: no psychotic symptoms past or present Patient educated on: diagnosis and medication risk/benefits Informed Consent: understands Reason for contiued inpatient stay Substantial Risk for: rapid decompensation Time Spent With Patient Time: Total time managing care of this patient today ____ minutes.
[2023-01-02 14:51] VITALS: BP 116/70; PULSE 86; RESP 16; TEMP 37.1; O2SAT 94
[2023-01-02] MEDS: cloNIDine HCL 0.1 MG TABLET PO ×2 (14:57→22:32)
[2023-01-02 22:25] VITALS: BP 122/73; PULSE 87; RESP 14; TEMP 36.8; O2SAT 97
[2023-01-02] MEDS: diphenhydrAMINE HCL 25 MG CAPSULE 50 MG PO (22:32)
[2023-01-02] MEDS: traZODone HCL 100 MG TABLET PO (22:32)
[2023-01-02] MEDS: OLANZapine 10 MG TABLET 20 MG PO (22:32)
[2023-01-02] MEDS: Famotidine 20 MG TABLET PO (22:32)
[2023-01-02] MEDS: Multivitamin TABLET 1 TAB PO (22:32)
[2023-01-02] MEDS: NaPROXEN 500 MG TABLET PO (22:32)
[2023-01-02] MEDS: Divalproex Sodium Sprinkles 125 MG CAP.DR.SPR 1250 MG PO (22:33)
[2023-01-03 07:00] VITALS: BMI 38.2
[2023-01-03] MEDS: Divalproex Sodium Sprinkles 125 MG CAP.DR.SPR 1250 MG PO ×2 (08:26→21:38)
[2023-01-03] MEDS: Sennosides/Docusate Sodium TABLET 1 TAB PO ×2 (08:27→21:39)
[2023-01-03] MEDS: FLUoxetine HCl 20 MG CAPSULE 40 MG PO (08:27)
[2023-01-03 08:58] VITALS: BP 97/55; PULSE 60; TEMP 35.8; O2SAT 98
[2023-01-03] MEDS: cloNIDine HCL 0.1 MG TABLET PO ×2 (14:17→21:39)
[2023-01-03] MEDS: Furosemide 20 MG TABLET PO (16:57)
[2023-01-03] MEDS: ALPRAZolam 0.5 MG TABLET PO (16:58)
[2023-01-03] MEDS: Ziprasidone 20 MG CAPSULE PO (16:58)
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
[2023-01-03 18:00] VITALS: BP 132/84; PULSE 89; RESP 16; TEMP 37.1; O2SAT 97
[2023-01-03] MEDS: Ziprasidone Mesylate 20 MG VIAL IM (21:37)
[2023-01-03] MEDS: OLANZapine 10 MG TABLET 20 MG PO (21:39)
[2023-01-03] MEDS: diphenhydrAMINE HCL 25 MG CAPSULE 50 MG PO (21:39)
[2023-01-03] MEDS: traZODone HCL 100 MG TABLET PO (21:39)
[2023-01-03] MEDS: Famotidine 20 MG TABLET PO (21:39)
[2023-01-03] MEDS: Multivitamin TABLET 1 TAB PO (21:40)
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
[2023-01-04 06:00] VITALS: BP 96/56; PULSE 73; RESP 14; TEMP 36.5; O2SAT 96
[2023-01-04] MEDS: Divalproex Sodium Sprinkles 125 MG CAP.DR.SPR 1250 MG PO ×2 (08:28→21:14)
[2023-01-04] MEDS: FLUoxetine HCl 20 MG CAPSULE 40 MG PO (08:29)
[2023-01-04] MEDS: Sennosides/Docusate Sodium TABLET 1 TAB PO ×2 (08:29→21:14)
[2023-01-04] MEDS: Furosemide 20 MG TABLET PO ×2 (08:29→16:18)
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
[2023-01-04] MEDS: cloNIDine HCL 0.1 MG TABLET PO ×2 (13:28→21:12)
[2023-01-04 18:00] VITALS: BP 118/68; PULSE 67; RESP 16; TEMP 36.4; O2SAT 99
[2023-01-04] MEDS: traZODone HCL 100 MG TABLET PO (21:12)
[2023-01-04] MEDS: Multivitamin TABLET 1 TAB PO (21:13)
[2023-01-04] MEDS: Famotidine 20 MG TABLET PO (21:13)
[2023-01-04] MEDS: diphenhydrAMINE HCL 25 MG CAPSULE 50 MG PO (21:14)
[2023-01-04] MEDS: OLANZapine 10 MG TABLET 20 MG PO (21:14)
--- NOTE | 2023-01-04 23:08 | PC.NURSE ---
Pt reports nose bleed after she picked her nose. call center operator provider notified, no new orders given.
[2023-01-05 08:16] VITALS: BP 94/62; PULSE 72; RESP 16; TEMP 37; O2SAT 94
[2023-01-05] MEDS: Furosemide 20 MG TABLET PO ×2 (09:56→17:00)
[2023-01-05] MEDS: Sennosides/Docusate Sodium TABLET 1 TAB PO ×2 (09:56→23:09)
[2023-01-05] MEDS: FLUoxetine HCl 20 MG CAPSULE 40 MG PO (09:56)
[2023-01-05] MEDS: Divalproex Sodium Sprinkles 125 MG CAP.DR.SPR 1250 MG PO ×2 (09:56→23:03)
[2023-01-05 14:55] VITALS: BP 121/66; PULSE 86; RESP 16; TEMP 36.9; O2SAT 94
[2023-01-05] MEDS: cloNIDine HCL 0.1 MG TABLET PO ×2 (14:56→23:10)
--- NOTE | 2023-01-05 16:20 | HO.PSYCHPN ---
Subjective Subjective Date of Service: 01/05/23 Reason For Visit: Mood Dysregulation Interim History: chart reviewed. Discussed with Nursing. Sleeping most of the day. Noted recent aggression. With quality analyst/technical writer reported she felt tired and preferred to nap and would talk with quality analyst/technical writer tomorrow. Medication Compliance: Yes Side effects from medications: No Attending Groups: No Review of Systems Acute medical concerns: No Review of Systems Review of Systems Yes Unobtainable due to mental status Mental Status Exam Mental Status Exam Narrative: In bed. Reported feeling okay, but preferred to sleep and would engage with interview tomorrow no evidence of SI, agitation or overt psychosis. Diagnostics Vital Signs (24Hr): Vital Signs - 24 hr 01/04/23 18:00 01/05/23 08:16 01/05/23 14:55 Temperature 97.6 F 98.6 F 98.4 F Pulse Rate 67 72 86 Respiratory Rate 16 16 16 Blood Pressure 118/68 94/62 121/66 Pulse Oximetry 99 94 94 Oxygen Delivery Method Room Air Room Air Room Air BMI result Body Mass Index 38.2 Labs 12/27/22 20:00 12/27/22 19:59 Medications Medications Current Medications Acetaminophen (Acetaminophen 325 Mg Tablet) 650 mg PO Q6H PRN PRN Reason: Headache/Pain Mild Scale (1-3) Al Hydroxide/Mg Hydroxide (Magnesium Hydrox/Alum Hydrox 30 Ml Oral.Susp) 30 ml PO Q6H PRN PRN Reason: Heartburn/Nausea Last Admin: 12/31/22 08:29 Dose: 30 ml Alprazolam (Alprazolam 0.5 Mg Tablet) 0.5 mg PO TID PRN PRN Reason: Anxiety Last Admin: 01/03/23 16:58 Dose: 0.5 mg Clonidine HCl (Clonidine Hcl 0.1 Mg Tablet) 0.1 mg PO BID@1400,2100 [facility]; Protocol Last Admin: 01/05/23 14:56 Dose: 0.1 mg Diphenhydramine HCl (Diphenhydramine Hcl 25 Mg Capsule) 50 mg PO BEDTIME [facility] Last Admin: 01/04/23 21:14 Dose: 50 mg Divalproex Sodium (Divalproex Sodium Sprinkles 125 Mg ) 1,250 mg PO BID [facility] Last Admin: 01/05/23 09:56 Dose: 1,250 mg Famotidine (Famotidine 20 Mg Tablet) 20 mg PO BEDTIME [facility] Last Admin: 01/04/23 21:13 Dose: 20 mg Famotidine (Famotidine 20 Mg Tablet) 20 mg PO DAILY PRN PRN Reason: GERD Fluoxetine HCl (Fluoxetine Hcl 20 Mg Capsule) 40 mg PO DAILY [facility] Last Admin: 01/05/23 09:56 Dose: 40 mg Furosemide (Furosemide 20 Mg Tablet) 20 mg PO BID@0900,1700 [facility]; Protocol Last Admin: 01/05/23 09:56 Dose: 20 mg Loratadine (Loratadine 10 Mg Tablet) 10 mg PO DAILY PRN PRN Reason: congestion Magnesium Hydroxide (Milk Of Magnesia 30 Ml Oral.Susp) 30 ml PO DAILY PRN PRN Reason: Constipation Melatonin (Melatonin 3 Mg Tablet) 3 mg PO BEDTIME PRN PRN Reason: insomnia Last Admin: 12/31/22 00:55 Dose: 3 mg Multivitamins/Vitamin C (Multivitamin Tablet) 1 tab PO BEDTIME [facility] Last Admin: 01/04/23 21:13 Dose: 1 tab Naproxen (Naproxen 500 Mg Tablet) 500 mg PO Q12H PRN PRN Reason: mild pain Last Admin: 01/02/23 22:32 Dose: 500 mg Olanzapine (Olanzapine 10 Mg Tablet) 20 mg PO BEDTIME [facility] Last Admin: 01/04/23 21:14 Dose: 20 mg Olanzapine (Olanzapine Odt 10 Mg Tab.Rapdis) 10 mg TRANSLINGU DAILY PRN PRN Reason: Psychosis Senna/Docusate Sodium (Sennosides/Docusate Sodium Tablet) 1 tab PO BID [facility] Last Admin: 01/05/23 09:56 Dose: 1 tab Trazodone HCl (Trazodone Hcl 50 Mg Tablet) 50 mg PO BEDTIME PRN PRN Reason: insomnia Last Admin: 12/31/22 00:54 Dose: 50 mg Trazodone HCl (Trazodone Hcl 100 Mg Tablet) 100 mg PO BEDTIME [facility] Last Admin: 01/04/23 21:12 Dose: 100 mg Ziprasidone (Ziprasidone 20 Mg Capsule) 20 mg PO BID PRN PRN Reason: Agitation Last Admin: 01/03/23 16:58 Dose: 20 mg Allergies Allergies Allergy/AdvReac Type Severity Reaction Status Date / Time chlorpromazine Allergy Anaphylaxis Verified 03/09/23 16:37 [From Thorazine] nut - unspecified Allergy Anxiety Verified 12/27/22 16:37 haloperidol [From Haldol] AdvReac Agitated Verified 12/27/22 16:37 lithium AdvReac Hives Verified 12/27/22 16:37 Assessment & Plan Assessment & Plan (1) Autism: Status: Suspected Code(s): F84.0 - Autistic disorder (2) PTSD (post-traumatic stress disorder): Status: Suspected Code(s): F43.10 - Post-traumatic stress disorder, unspecified (3) Intermittent explosive disorder: Status: Acute Code(s): F63.81 - Intermittent explosive disorder (4) CHARLES positive: Status: Acute Code(s): R76.8 - Other specified abnormal immunological findings in serum (5) Chronic restrictive lung disease: Status: Acute Code(s): J98.4 - Other disorders of lung (6) Peripheral edema: Status: Acute Code(s): R60.9 - Edema, unspecified (7) Amenorrhea: Status: Acute Code(s): N91.2 - Amenorrhea, unspecified Plan HPI: Patient is a bright, kind 22-year-old female, well known to this service, with history of Autism, PTSD recently discharged from on 12/25/2022 (and recently dc'd from [facility] after 5 years) who re-presents 2 days later for resurgence of suicidal ideation, dissociative episode and having run out during therapy session, into the street trying to hit by traffic and then eloping again from crisis again trying to get hit by oncoming cars. This has happened after ever discharge since coming to [facility]. Patient reports that day she left she had the intrusive thought that I am gonna screw this up again which just built and built until it overwhelmed her. Patient says she tried very hard to resist self-harm but the constant intrusive thought was unrelenting. She reports that on the way into the therapist building she got triggered as setting and some other people around reminded her of [facility]; already being on edge, this launched her into a full-blown panic attack; she dissociated and ran into the street wanting to . Patient says she just cannot seem to control. She also worries that she is unsafe living at her grandmother's, whom she loves dearly, because her grandmother is not able to sense when patient is starting to unravel and cannot preemptively help ground her and prevent dysregulated/dissociate of episode; patient says that sometimes she is able to alert her grandmother that she is headed this direction but many time she is not. Patient says she needs to live in a place with staff who were trained who can help divert her from such episodes. Passive SI remains but none active. Patient does not want to and wants to continue with treatment therapy. It is unclear if patient meets full criteria for OCD diagnosis however she has OCD like symptoms and will thus increase Prozac which has thus far been well tolerated. Hospital course: 12/30 stabilizing; continue current treatment plan 12/31 patient continues to stabilize; no change in medications at this time however will likely seek to reduce possibly Depakote her Zyprexa level; may increase Prozac for PTSD/OCD like symptoms 01/01 stabilizing 01/02 tough night, needing geodon prns; asked to change depakote to sprinkles and maybe lower dose since tired in daytime and pt may be stable at lower dose 01/03 will add short trial of Lasix 20mg BID for continued lower limb edema (Jamal stockings tried and ripped) 01/05/23- Continue current plan and regime *Started Lasix 20mg BID on 01/03 for b/l lower limb edema 1. ASD/PTSD/intermittent explosive disorder: CHANGED to Depakote sprinkles DR 1200mg bId (roughly equiv to Depakote ER 2500 mg q.h.s ...) Continue Zyprexa 20 mg q.h.s. (may very well tolerate lower dose as overseen by outpatient provider) Increased Prozac to 40mg (increased during this admission) Continue Xanax 0.5 mg t.i.d. p.r.n. for agitation; may give alone or with Geodon Continue Geodon 20 mg b.i.d. p.r.n. for agitation (*pt may get IM Geodon if requested for faster action) Continue Clonidine 0.1 mg t.i.d. Continue Trazodone 100 mg q.h.s. DC'd zyprexa 5mg in afternoon DC'd perphenazine (patient has no history of psychotic illness and very likely does not need this medication) Chronic conditions: 2. CHARLES positive appointment made with Rheumatology February 20 -daytime fatigue; b/l peripheral edema; mild dyspnea on exertion Discussed with Dr. Hamilton who recommends and following labs ordered: -Urine protein creatinine ratio -Rheumatoid factor -CCP antibody 3. Bilateral peripheral edema (lower/upper extrem):? Medication side effect (Zyprexa/Depakote)?? vs organic origin some reduction w/ lowering of medications Zyprexa and depakote r/u autoimune 4. Complaint of chronic struggles with inspiration: lungs CTA; CXR unremarkable Pulmonary function test: results reviewed, discussed with Dr. Melchor -elevated CHARLES and abnromal PFTs with a mild restriction with a mild diffusion impairment. -could be explained by her elevated BMI. -at this time dr. Melchor reports given lab work, at this time it does not look like she has lupus nor sjogrens nor scleroderma. Her cxr was good. needs a sleep study as an out pt (daytime drowsiness bringing up the possibility of obstructive sleep apnea) does not need an inpt ct scan but should f/up with outpt pulmonary and rheumatology. -in further discussion, Dr. Melchor agrees that CHARLES needs further evaluation, 5. Amenorrhea: Patient did have menses a few years ago while on control; has not had it since control discontinued about 2 years ago Labs: mostly WNL; will f/u with PCP/cardiovascular rn PSYCHIATRIC IMPRESSION/DIAGNOSIS:. Impression: Patient is a fun, intelligent, cooperative and friendly person. When she gets triggered by something she can decompensate severely, dissociate and become physically aggressive.? Patient is now diagnosed with ASD, PTSD, and intermittent explosive disorder.? From [facility], she carried the diagnosis of Schizoaffective disorder and mention of borderline personality disorder.? Both of these have been ruled out.? Patient has no present psychotic symptoms, denies any history of AVH or delusional thinking, and has no reported history anywhere that can be found of any psychotic symptoms (history includes quality analyst/technical writer having gone through numerous pages of notes from [facility] and other institutions).? She is linear, logical, articulate, insightful and organized in her thinking; she is organized in her behaviors.? Patient can have intrusive thoughts but only when triggered and this does not seem to be OCD.? She can have some rigid thinking in line with ASD.? Many of her dysregulated moments come from her PTSD being exacerbated.? Patient has well tolerated decrease of Zyprexa, decrease of Depakote and discontinuation of perphenazine. Primary dx: ASD. Patient's father and grandmother maintain that she met her milestones in childhood. 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 During childhood she attended [facility] in [place], treatment center typically for people with autism; in [place] when at [facility], she carried a dx of ASD.? As observed on the unit, Patient frequently rocks back and forth, when standing or sitting, while talking to others or calming herself down.? Patient does not have a sense of a person's personal space and will get much to close to a person when talking; she is redirectable and apologizes but she is unaware she is doing it and does not get verbal cues when conversation participant is backing away or trying to end a conversation; though redirectable, she will again get too close, again unaware.? In the milieu with peers, While she will sometimes spend time in the vicinity of others, she is mostly alongside people and not directly interacting with them.? That said, she will directly interact with staff. Patient does make eye contact, however she stares the entire time she is engaged. ? She can have a logical conversation, however she is concrete Patient has a blunted affect and though she can smile and laugh, she is otherwise expressionless with blunted affect. Patient has in flexibility regarding food when it is not as expected patient can get severely dysregulated Patient has some hypo-reactivity to loud noises and crowds of people. Conversely, She does get jokes, even subtle ones. Symptoms have clearly made life functioning extremely difficult.? It is unclear if patient has had neuropsych testing. She did spend time at [facility]. Regarding PTSD: Patient has a history of trauma from both childhood experiences, as well as trauma that occurred while on inpatient unit at [facility] and [place].? She has also been institutionalized since a young age, away from her mother and father, feeling abandoned.? She can have several regressed behaviors and some child-like interests. Regarding Dissociative Disorder:? Patient has episodes of depersonalization and derealization which the typically arise when triggered and during which time she will feel detached from herself, from her body and feel as if things are unreal and dream like, with out a sense of time; after they conclude and she is again in the present, she can be upset about some behaviors she engaged in during the dissociate period once made aware. Not BPD: Regarding past references to borderline personality disorder, [place] Supervisor and team agree there have been no axis II traits expressed throughout her time in the hospital; none could be cleaned from records No psychotic illness: no psychotic symptoms past or present Reason for contiued inpatient stay Substantial Risk for: inability to function and rapid decompensation Time Spent With Patient Time: Total time managing care of this patient today ____ minutes.
[2023-01-05 17:00] VITALS: BP 104/57; PULSE 90; TEMP 35.8
[2023-01-05 22:50] VITALS: BP 119/73; PULSE 92; TEMP 36.2
[2023-01-05] MEDS: diphenhydrAMINE HCL 25 MG CAPSULE 50 MG PO (23:08)
[2023-01-05] MEDS: Multivitamin TABLET 1 TAB PO (23:08)
[2023-01-05] MEDS: traZODone HCL 100 MG TABLET PO (23:09)
[2023-01-05] MEDS: OLANZapine 10 MG TABLET 20 MG PO (23:09)
[2023-01-05] MEDS: Famotidine 20 MG TABLET PO (23:10)
[2023-01-06] MEDS: ALPRAZolam 0.5 MG TABLET PO ×2 (00:04→18:27)
[2023-01-06] MEDS: traZODone HCL 50 MG TABLET PO (00:04)
[2023-01-06] MEDS: Melatonin 3 MG TABLET PO (00:04)
[2023-01-06 08:41] VITALS: BP 103/64; PULSE 72; RESP 16; TEMP 36.8; O2SAT 95
[2023-01-06] MEDS: Furosemide 20 MG TABLET PO ×2 (08:48→18:27)
[2023-01-06] MEDS: Divalproex Sodium Sprinkles 125 MG CAP.DR.SPR 1250 MG PO ×2 (08:48→20:35)
[2023-01-06] MEDS: Sennosides/Docusate Sodium TABLET 1 TAB PO ×2 (08:48→20:34)
[2023-01-06] MEDS: FLUoxetine HCl 20 MG CAPSULE 40 MG PO (08:48)
--- NOTE | 2023-01-06 11:15 | P.PNPSI_ITS ---
Subjective Subjective Date of Service: 01/06/23 Reason For Visit: Mood Dysregulation Interim History: Continues to be sleeping most of the day. No management issues. Medication adherent. Denied depression, SI or psychosis. Medication Compliance: Yes Side effects from medications: No Attending Groups: No Review of Systems Acute medical concerns: No Review of Systems Review of Systems Unremarkable Mental Status Exam Mental Status Exam Narrative: In bed. Reported feeling okay, denies depression, SI or psychosis. Diagnostics Vital Signs (24Hr): Vital Signs - 24 hr 01/05/23 14:55 01/05/23 17:00 01/05/23 22:50 Temperature 98.4 F 96.4 F L 97.1 F Pulse Rate 86 90 92 Respiratory Rate 16 Blood Pressure 121/66 104/57 L 119/73 Pulse Oximetry 94 Oxygen Delivery Method Room Air 01/06/23 08:41 Temperature 98.2 F Pulse Rate 72 Respiratory Rate 16 Blood Pressure 103/64 Pulse Oximetry 95 Oxygen Delivery Method Room Air BMI result Body Mass Index 38.2 Labs 12/27/22 20:00 12/27/22 19:59 Medications Medications Current Medications Acetaminophen (Acetaminophen 325 Mg Tablet) 650 mg PO Q6H PRN PRN Reason: Headache/Pain Mild Scale (1-3) Al Hydroxide/Mg Hydroxide (Magnesium Hydrox/Alum Hydrox 30 Ml Oral.Susp) 30 ml PO Q6H PRN PRN Reason: Heartburn/Nausea Last Admin: 12/31/22 08:29 Dose: 30 ml Alprazolam (Alprazolam 0.5 Mg Tablet) 0.5 mg PO TID PRN PRN Reason: Anxiety Last Admin: 01/06/23 00:04 Dose: 0.5 mg Clonidine HCl (Clonidine Hcl 0.1 Mg Tablet) 0.1 mg PO BID@1400,2100 [facility]; Protocol Last Admin: 01/05/23 23:10 Dose: 0.1 mg Diphenhydramine HCl (Diphenhydramine Hcl 25 Mg Capsule) 50 mg PO BEDTIME [facility] Last Admin: 01/05/23 23:08 Dose: 50 mg Divalproex Sodium (Divalproex Sodium Sprinkles 125 Mg ) 1,250 mg PO BID [facility] Last Admin: 01/06/23 08:48 Dose: 1,250 mg Famotidine (Famotidine 20 Mg Tablet) 20 mg PO BEDTIME [facility] Last Admin: 01/05/23 23:10 Dose: 20 mg Famotidine (Famotidine 20 Mg Tablet) 20 mg PO DAILY PRN PRN Reason: GERD Fluoxetine HCl (Fluoxetine Hcl 20 Mg Capsule) 40 mg PO DAILY [facility] Last Admin: 01/06/23 08:48 Dose: 40 mg Furosemide (Furosemide 20 Mg Tablet) 20 mg PO BID@0900,1700 [facility]; Protocol Last Admin: 01/06/23 08:48 Dose: 20 mg Loratadine (Loratadine 10 Mg Tablet) 10 mg PO DAILY PRN PRN Reason: congestion Magnesium Hydroxide (Milk Of Magnesia 30 Ml Oral.Susp) 30 ml PO DAILY PRN PRN Reason: Constipation Melatonin (Melatonin 3 Mg Tablet) 3 mg PO BEDTIME PRN PRN Reason: insomnia Last Admin: 01/06/23 00:04 Dose: 3 mg Multivitamins/Vitamin C (Multivitamin Tablet) 1 tab PO BEDTIME [facility] Last Admin: 01/05/23 23:08 Dose: 1 tab Naproxen (Naproxen 500 Mg Tablet) 500 mg PO Q12H PRN PRN Reason: mild pain Last Admin: 01/02/23 22:32 Dose: 500 mg Olanzapine (Olanzapine 10 Mg Tablet) 20 mg PO BEDTIME [facility] Last Admin: 01/05/23 23:09 Dose: 20 mg Olanzapine (Olanzapine Odt 10 Mg Tab.Rapdis) 10 mg TRANSLINGU DAILY PRN PRN Reason: Psychosis Senna/Docusate Sodium (Sennosides/Docusate Sodium Tablet) 1 tab PO BID [facility] Last Admin: 01/06/23 08:48 Dose: 1 tab Trazodone HCl (Trazodone Hcl 50 Mg Tablet) 50 mg PO BEDTIME PRN PRN Reason: insomnia Last Admin: 01/06/23 00:04 Dose: 50 mg Trazodone HCl (Trazodone Hcl 100 Mg Tablet) 100 mg PO BEDTIME [facility] Last Admin: 01/05/23 23:09 Dose: 100 mg Ziprasidone (Ziprasidone 20 Mg Capsule) 20 mg PO BID PRN PRN Reason: Agitation Last Admin: 01/03/23 16:58 Dose: 20 mg Allergies Allergies Allergy/AdvReac Type Severity Reaction Status Date / Time chlorpromazine Allergy Anaphylaxis Verified 12/27/22 16:37 [From Thorazine] nut - unspecified Allergy Anxiety Verified 12/27/22 16:37 haloperidol [From Haldol] AdvReac Agitated Verified 12/27/22 16:37 lithium AdvReac Hives Verified 12/27/22 16:37 Assessment & Plan Assessment & Plan (1) Autism: Status: Suspected Code(s): F84.0 - Autistic disorder (2) PTSD (post-traumatic stress disorder): Status: Suspected Code(s): F43.10 - Post-traumatic stress disorder, unspecified (3) Intermittent explosive disorder: Status: Acute Code(s): F63.81 - Intermittent explosive disorder (4) CHARLES positive: Status: Acute Code(s): R76.8 - Other specified abnormal immunological findings in serum (5) Chronic restrictive lung disease: Status: Acute Code(s): J98.4 - Other disorders of lung (6) Peripheral edema: Status: Acute Code(s): R60.9 - Edema, unspecified (7) Amenorrhea: Status: Acute Code(s): N91.2 - Amenorrhea, unspecified Plan HPI: Patient is a bright, kind 22-year-old female, well known to this service, with history of Autism, PTSD recently discharged from on 12/25/2022 (and recently dc'd from [facility] after 5 years) who re-presents 2 days later for resurgence of suicidal ideation, dissociative episode and having run out during therapy session, into the street trying to hit by traffic and then eloping again from crisis again trying to get hit by oncoming cars. This has happened after ever discharge since coming to [facility]. Patient reports that day she left she had the intrusive thought that I am gonna screw this up again which just built and built until it overwhelmed her. Patient says she tried very hard to resist self-harm but the constant intrusive thought was unrelenting. She reports that on the way into the therapist building she got triggered as setting and some other people around reminded her of [facility]; already being on edge, this launched her into a full-blown panic attack; she dissociated and ran into the street wanting to . Patient says she just cannot seem to control. She also worries that she is unsafe living at her grandmother's, whom she loves dearly, because her grandmother is not able to sense when patient is starting to unravel and cannot preemptively help ground her and prevent dysregulated/dissociate of episode; patient says that sometimes she is able to alert her grandmother that she is headed this direction but many time she is not. Patient says she needs to live in a place with staff who were trained who can help divert her from such episodes. Passive SI remains but none active. Patient does not want to and wants to continue with treatment therapy. It is unclear if patient meets full criteria for OCD diagnosis however she has OCD like symptoms and will thus increase Prozac which has thus far been well tolerated. Hospital course: 12/30 stabilizing; continue current treatment plan 12/31 patient continues to stabilize; no change in medications at this time h owever will likely seek to reduce possibly Depakote her Zyprexa level; may increase Prozac for PTSD/OCD like symptoms 01/01 stabilizing 01/02 tough night, needing geodon prns; asked to change depakote to sprinkles and maybe lower dose since tired in daytime and pt may be stable at lower dose 01/03 will add short trial of Lasix 20mg BID for continued lower limb edema (Jamal stockings tried and ripped) 01/06/23- Continue current plan and regime *Started Lasix 20mg BID on 01/03 for b/l lower limb edema 1. ASD/PTSD/intermittent explosive disorder: CHANGED to Depakote sprinkles DR 1200mg bId (roughly equiv to Depakote ER 2500 mg q.h.s ...) Continue Zyprexa 20 mg q.h.s. (may very well tolerate lower dose as overseen by outpatient provider) Increased Prozac to 40mg (increased during this admission) Continue Xanax 0.5 mg t.i.d. p.r.n. for agitation; may give alone or with Geodon Continue Geodon 20 mg b.i.d. p.r.n. for agitation (*pt may get IM Geodon if requested for faster action) Continue Clonidine 0.1 mg t.i.d. Continue Trazodone 100 mg q.h.s. DC'd zyprexa 5mg in afternoon DC'd perphenazine (patient has no history of psychotic illness and very likely does not need this medication) Chronic conditions: 2. CHARLES positive appointment made with Rheumatology May 3rd -daytime fatigue; b/l peripheral edema; mild dyspnea on exertion Discussed with Dr. Hamilton who recommends and following labs ordered: -Urine protein creatinine ratio -Rheumatoid factor -CCP antibody 3. Bilateral peripheral edema (lower/upper extrem):? Medication side effect (Zyprexa/Depakote)?? vs organic origin some reduction w/ lowering of medications Zyprexa and depakote r/u autoimune 4. Complaint of chronic struggles with inspiration: lungs CTA; CXR unremarkable Pulmonary function test: results reviewed, discussed with Dr. Melchor -elevated CHARLES and abnromal PFTs with a mild restriction with a mild diffusion impairment. -could be explained by her elevated BMI. -at this time dr. Melchor reports given lab work, at this time it does not look like she has lupus nor sjogrens nor scleroderma. Her cxr was good. needs a sleep study as an out pt (daytime drowsiness bringing up the possibility of obstructive sleep apnea) does not need an inpt ct scan but should f/up with outpt pulmonary and rheumatology. -in further discussion, Dr. Melchor agrees that CHARLES needs further evaluation, 5. Amenorrhea: Patient did have menses a few years ago while on control; has not had it since control discontinued about 2 years ago Labs: mostly WNL; will f/u with PCP/research and development scientist PSYCHIATRIC IMPRESSION/DIAGNOSIS:. Impression: Patient is a fun, intelligent, cooperative and friendly person. When she gets triggered by something she can decompensate severely, dissociate and become physically aggressive.? Patient is now diagnosed with ASD, PTSD, and intermittent explosive disorder.? From [facility], she carried the diagnosis of Schizoaffective disorder and mention of borderline personality disorder.? Both of these have been ruled out.? 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 She is linear, logical, articulate, insightful and organized in her thinking; she is organized in her behaviors.? Patient can have intrusive thoughts but only when triggered and this does not seem to be OCD.? She can have some rigid thinking in line with ASD.? Many of her dysregulated moments come from her PTSD being exacerbated.? Patient has well tolerated decrease of Zyprexa, decrease of Depakote and discontinuation of perphenazine. Primary dx: ASD. Patient's father and grandmother maintain that she met her milestones in childhood. 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 [place] [facility] [place] typically for people with autism; in [place] when at [facility], she carried a dx of ASD.? As observed on the unit, Patient frequently rocks back and forth, when standing or sitting, while talking to others or calming herself down.? Patient does not have a sense of a person's personal space and will get much to close to a person when talking; she is redirectable and apologizes but she is unaware she is doing it and does not get verbal cues when conversation participant is backing away or trying to end a conversation; though redirectable, she will again get too close, again unaware.? In the milieu with peers, While she will sometimes spend time in the vicinity of others, she is mostly alongside people and not directly interacting with them.? That said, she will directly interact with staff. Patient does make eye contact, however she stares the entire time she is engaged. ? She can have a logical conversation, however she is concrete Patient has a blunted affect and though she can smile and laugh, she is otherwise expressionless with blunted affect. Patient has in flexibility regarding food when it is not as expected patient can get severely dysregulated Patient has some hypo-reactivity to loud noises and crowds of people. Conversely, She does get jokes, even subtle ones. Symptoms have clearly made life functioning extremely difficult.? It is unclear if patient has had neuropsych testing. She did spend time at [facility]. Regarding PTSD: Patient has a history of trauma from both childhood experiences, as well as trauma that occurred while on inpatient unit at [facility] and [place].? She has also been institutionalized since a young age, away from her mother and father, feeling abandoned.? She can have several regressed behaviors and some child-like interests. Regarding Dissociative Disorder:? Patient has episodes of depersonalization and derealization which the typically arise when triggered and during which time she will feel detached from herself, from her body and feel as if things are unreal and dream like, with out a sense of time; after they conclude and she is again in the present, she can be upset about some behaviors she engaged in during the dissociate period once made aware. Not BPD: Regarding past references to borderline personality disorder, Machine Stripper and team agree there have been no axis II traits expressed throughout her time in the hospital; none could be cleaned from records No psychotic illness: no psychotic symptoms past or present Reason for contiued inpatient stay Substantial Risk for: inability to function and rapid decompensation Time Spent With Patient Time: Total time managing care of this patient today ____ minutes.
[2023-01-06 14:31] VITALS: BP 90/56; PULSE 82; RESP 16; TEMP 36.9; O2SAT 95
[2023-01-06 18:00] VITALS: BP 106/72; PULSE 72; RESP 16; TEMP 36.8; O2SAT 96
[2023-01-06] MEDS: Ziprasidone Mesylate 20 MG VIAL IM (20:03)
[2023-01-06] MEDS: cloNIDine HCL 0.1 MG TABLET PO (20:34)
[2023-01-06] MEDS: Famotidine 20 MG TABLET PO (20:35)
[2023-01-06] MEDS: diphenhydrAMINE HCL 25 MG CAPSULE 50 MG PO (20:35)
[2023-01-06] MEDS: Multivitamin TABLET 1 TAB PO (20:35)
--- NOTE | 2023-01-06 22:26 | PC.NURSE ---
pt complains of small wound on right wrist I think it was a bug bite, its itchy area noted as red and slightly raw. bacitracin and band aid applied.
[2023-01-07 06:00] VITALS: BP 109/67; PULSE 87; RESP 14; TEMP 36.6; O2SAT 98
[2023-01-07] MEDS: Divalproex Sodium Sprinkles 125 MG CAP.DR.SPR 1250 MG PO ×2 (08:37→23:10)
[2023-01-07] MEDS: Sennosides/Docusate Sodium TABLET 1 TAB PO ×2 (08:37→23:08)
[2023-01-07] MEDS: FLUoxetine HCl 20 MG CAPSULE 40 MG PO (08:37)
[2023-01-07] MEDS: Furosemide 20 MG TABLET PO (08:37)
--- NOTE | 2023-01-07 09:10 | HO.PSYCHPN ---
Subjective Subjective Date of Service: 01/07/23 Reason For Visit: Mood Dysregulation Interim History: Met with patient; discussed in team; reviewed notes from covering provider Patient appears depressed, affect down cast. Chalk Tester inquires and patient says she thinks it is because a peer she is friendly with his discharging today and she feels lonely; she is also feeling a little hopeless about having to stay on the unit without knowing what discharge plan will be since she does not feel safe to go home. Chalk Tester offered alternative perspective encouraging patient to see how far she has come however patient said it was hard to imagine ever getting better and leaving. Discussed medications and wondered if change in Depakote formulation may be contributory to her current mood however patient does not think so I think that is just situational. She says she will be fine overall. Examine bilateral lower limbs which remain edematous; little changed Mental Status Exam Mental Status Exam Narrative: Pt is alert and oriented; behavior is cooperative, calm; patient is not in distress; dressed in casual attire, mood is described as okay and affect downcast; eye contact appropriate; Speech is normal rate; normal volume and prosody; some psychomotor retardation present; thought process is organized and goal directed; Thought content is on struggles, past trauma, treatment; otherwise pertinent to relevant topics and without any delusional content, paranoid ideations or grandiosity; no SI; no HI. No AVH and there is no evidence of perceptual disturbance.. Patients insight and judgment are fair and at baseline. Diagnostics Vital Signs (24Hr): Vital Signs - 24 hr 01/06/23 14:31 01/06/23 18:00 Temperature 98.5 F 98.2 F Pulse Rate 82 72 Respiratory Rate 16 16 Blood Pressure 90/56 L 106/72 Pulse Oximetry 95 96 Oxygen Delivery Method Room Air Room Air BMI result Body Mass Index 38.2 Labs 12/27/22 20:00 12/27/22 19:59 Medications Medications Current Medications Acetaminophen (Acetaminophen 325 Mg Tablet) 650 mg PO Q6H PRN PRN Reason: Headache/Pain Mild Scale (1-3) Al Hydroxide/Mg Hydroxide (Magnesium Hydrox/Alum Hydrox 30 Ml Oral.Susp) 30 ml PO Q6H PRN PRN Reason: Heartburn/Nausea Last Admin: 12/31/22 08:29 Dose: 30 ml Alprazolam (Alprazolam 0.5 Mg Tablet) 0.5 mg PO TID PRN PRN Reason: Anxiety Last Admin: 01/06/23 18:27 Dose: 0.5 mg Clonidine HCl (Clonidine Hcl 0.1 Mg Tablet) 0.1 mg PO BID@1400,2100 [facility]; Protocol Last Admin: 01/06/23 20:34 Dose: 0.1 mg Diphenhydramine HCl (Diphenhydramine Hcl 25 Mg Capsule) 50 mg PO BEDTIME [facility] Last Admin: 01/06/23 20:35 Dose: 50 mg Divalproex Sodium (Divalproex Sodium Sprinkles 125 Mg Donald.) 1,250 mg PO BID [facility] Last Admin: 01/07/23 08:37 Dose: 1,250 mg Famotidine (Famotidine 20 Mg Tablet) 20 mg PO BEDTIME [facility] Last Admin: 01/06/23 20:35 Dose: 20 mg Famotidine (Famotidine 20 Mg Tablet) 20 mg PO DAILY PRN PRN Reason: GERD Fluoxetine HCl (Fluoxetine Hcl 20 Mg Capsule) 40 mg PO DAILY [facility] Last Admin: 01/07/23 08:37 Dose: 40 mg Furosemide (Furosemide 20 Mg Tablet) 20 mg PO BID@0900,1700 [facility]; Protocol Last Admin: 01/07/23 08:37 Dose: 20 mg Loratadine (Loratadine 10 Mg Tablet) 10 mg PO DAILY PRN PRN Reason: congestion Magnesium Hydroxide (Milk Of Magnesia 30 Ml Oral.Susp) 30 ml PO DAILY PRN PRN Reason: Constipation Melatonin (Melatonin 3 Mg Tablet) 3 mg PO BEDTIME PRN PRN Reason: insomnia Last Admin: 01/06/23 00:04 Dose: 3 mg Multivitamins/Vitamin C (Multivitamin Tablet) 1 tab PO BEDTIME [facility] Last Admin: 01/06/23 20:35 Dose: 1 tab Naproxen (Naproxen 500 Mg Tablet) 500 mg PO Q12H PRN PRN Reason: mild pain Last Admin: 01/02/23 22:32 Dose: 500 mg Olanzapine (Olanzapine 10 Mg Tablet) 20 mg PO BEDTIME [facility] Last Admin: 01/06/23 20:45 Dose: Not Given Olanzapine (Olanzapine Odt 10 Mg Tab.Rapdis) 10 mg TRANSLINGU DAILY PRN PRN Reason: Psychosis Senna/Docusate Sodium (Sennosides/Docusate Sodium Tablet) 1 tab PO BID [facility] Last Admin: 01/07/23 08:37 Dose: 1 tab Trazodone HCl (Trazodone Hcl 50 Mg Tablet) 50 mg PO BEDTIME PRN PRN Reason: insomnia Last Admin: 01/06/23 00:04 Dose: 50 mg Trazodone HCl (Trazodone Hcl 100 Mg Tablet) 100 mg PO BEDTIME [facility] Last Admin: 01/06/23 20:46 Dose: Not Given Ziprasidone (Ziprasidone 20 Mg Capsule) 20 mg PO BID PRN PRN Reason: Agitation Last Admin: 01/03/23 16:58 Dose: 20 mg Allergies Allergies Allergy/AdvReac Type Severity Reaction Status Date / Time chlorpromazine Allergy Anaphylaxis Verified 12/27/22 16:37 [From Thorazine] nut - unspecified Allergy Anxiety Verified 12/27/22 16:37 haloperidol [From Haldol] AdvReac Agitated Verified 12/27/22 16:37 lithium AdvReac Hives Verified 12/27/22 16:37 Assessment & Plan Assessment & Plan (1) Autism: Status: Suspected Code(s): F84.0 - Autistic disorder (2) PTSD (post-traumatic stress disorder): Status: Suspected Code(s): F43.10 - Post-traumatic stress disorder, unspecified (3) Intermittent explosive disorder: Status: Acute Code(s): F63.81 - Intermittent explosive disorder (4) CHARLES positive: Status: Acute Code(s): R76.8 - Other specified abnormal immunological findings in serum (5) Chronic restrictive lung disease: Status: Acute Code(s): J98.4 - Other disorders of lung (6) Peripheral edema: Status: Acute Code(s): R60.9 - Edema, unspecified (7) Amenorrhea: Status: Acute Code(s): N91.2 - Amenorrhea, unspecified Plan HPI: Patient is a bright, kind 22-year-old female, well known to this service, with history of Autism, PTSD recently discharged from on 12/25/2022 (and recently dc'd from [facility] after 5 years) who re-presents 2 days later for resurgence of suicidal ideation, dissociative episode and having run out during therapy session, into the street trying to hit by traffic and then eloping again from crisis again trying to get hit by oncoming cars. This has happened after ever discharge since coming to [facility]. Patient reports that day she left she had the intrusive thought that I am gonna screw this up again which just built and built until it overwhelmed her. Patient says she tried very hard to resist self-harm but the constant intrusive thought was unrelenting. She reports that on the way into the therapist building she got triggered as setting and some other people around [facility]; already being on edge, this launched her into a full-blown panic attack; she dissociated and ran into the street wanting to . Patient says she just cannot seem to control. She also worries that she is unsafe living at her grandmother's, whom she loves dearly, because her grandmother is not able to sense when patient is starting to unravel and cannot preemptively help ground her and prevent dysregulated/dissociate of episode; patient says that sometimes she is able to alert her grandmother that she is headed this direction but many time she is not. Patient says she needs to live in a place with staff who were trained who can help divert her from such episodes. Passive SI remains but none active. Patient does not want to and wants to continue with treatment therapy. It is unclear if patient meets full criteria for OCD diagnosis however she has OCD like symptoms and will thus increase Prozac which has thus far been well tolerated. Hospital course: 12/30 stabilizing; continue current treatment plan 12/31 patient continues to stabilize; no change in medications at this time however will likely seek to reduce possibly Depakote her Zyprexa level; may increase Prozac for PTSD/OCD like symptoms 01/01 stabilizing 01/02 tough night, needing geodon prns; asked to change depakote to sprinkles and maybe lower dose since tired in daytime and pt may be stable at lower dose 01/03 will add short trial of Lasix 20mg BID for continued lower limb edema (Jamal stockings tried and ripped) 01/06/23- Continue current plan and regime 01/07 continue current treatment plan for now PLAN: *Started Lasix 20mg BID on 01/03 for b/l lower limb edema 1. ASD/PTSD/intermittent explosive disorder: CHANGED to Depakote sprinkles DR 1200mg bId (roughly equiv to Depakote ER 2500 mg q.h.s ...) Continue Zyprexa 20 mg q.h.s. (may very well tolerate lower dose as overseen by outpatient provider) Increased Prozac to 40mg (increased during this admission) Continue Xanax 0.5 mg t.i.d. p.r.n. for agitation; may give alone or with Geodon Continue Geodon 20 mg b.i.d. p.r.n. for agitation (*pt may get IM Geodon if requested for faster action) Continue Clonidine 0.1 mg t.i.d. Continue Trazodone 100 mg q.h.s. DC'd zyprexa 5mg in afternoon DC'd perphenazine (patient has no history of psychotic illness and very likely does not need this medication) Chronic conditions: 2. CHARLES positive appointment made with Rheumatology February 20 -daytime fatigue; b/l peripheral edema; mild dyspnea on exertion Discussed with Dr. Hamilton who recommends and following labs ordered: -Urine protein creatinine ratio -Rheumatoid factor -CCP antibody 3. Bilateral peripheral edema (lower/upper extrem):? Medication side effect (Zyprexa/Depakote)?? vs organic origin some reduction w/ lowering of medications Zyprexa and depakote r/u autoimune 4. Complaint of chronic struggles with inspiration: lungs CTA; CXR unremarkable Pulmonary function test: results reviewed, discussed with Dr. Melchor -elevated CHARLES and abnromal PFTs with a mild restriction with a mild diffusion impairment. -could be explained by her elevated BMI. -at this time dr. Melchor reports given lab work, at this time it does not look like she has lupus nor sjogrens nor scleroderma. Her cxr was good. needs a sleep study as an out pt (daytime drowsiness bringing up the possibility of obstructive sleep apnea) does not need an inpt ct scan but should f/up with outpt pulmonary and rheumatology. -in further discussion, Dr. Melchor agrees that CHARLES needs further evaluation, 5. Amenorrhea: Patient did have menses a few years ago while on control; has not had it since control discontinued about 2 years ago Labs: mostly WNL; will f/u with PCP/blood bank laboratory professional PSYCHIATRIC IMPRESSION/DIAGNOSIS:. Impression: Patient is a fun, intelligent, cooperative and friendly person. When she gets triggered by something she can decompensate severely, dissociate and become physically aggressive.? Patient is now diagnosed with ASD, PTSD, and intermittent explosive disorder.? From [facility], she carried the diagnosis of Schizoaffective disorder and mention of borderline personality disorder.? Both of these have been ruled out.? 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 She is linear, logical, articulate, insightful and organized in her thinking; she is organized in her behaviors.? Patient can have intrusive thoughts but only when triggered and this does not seem to be OCD.? She can have some rigid thinking in line with ASD.? Many of her dysregulated moments come from her PTSD being exacerbated.? Patient has well tolerated decrease of Zyprexa, decrease of Depakote and discontinuation of perphenazine. Primary dx: ASD. Patient's father and grandmother maintain that she met her milestones in childhood. 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 During childhood she attended [facility] in [place], treatment center typically for people with autism; in [place] when at [facility], she carried a dx of ASD.? As observed on the unit, Patient frequently rocks back and forth, when standing or sitting, while talking to others or calming herself down.? Patient does not have a sense of a person's personal space and will get much to close to a person when talking; she is redirectable and apologizes but she is unaware she is doing it and does not get verbal cues when conversation participant is backing away or trying to end a conversation; though redirectable, she will again get too close, again unaware.? In the milieu with peers, While she will sometimes spend time in the vicinity of others, she is mostly alongside people and not directly interacting with them.? That said, she will directly interact with staff. Patient does make eye contact, however she stares the entire time she is engaged. ? She can have a logical conversation, however she is concrete Patient has a blunted affect and though she can smile and laugh, she is otherwise expressionless with blunted affect. Patient has in flexibility regarding food when it is not as expected patient can get severely dysregulated Patient has some hypo-reactivity to loud noises and crowds of people. Conversely, She does get jokes, even subtle ones. Symptoms have clearly made life functioning extremely difficult.? It is unclear if patient has had neuropsych testing. She did spend time at [facility]. Regarding PTSD: Patient has a history of trauma from both childhood experiences, as well as trauma that occurred while on inpatient unit at [facility] and [place].? She has also been institutionalized since a young age, away from her mother and father, feeling abandoned.? She can have several regressed behaviors and some child-like interests. Regarding Dissociative Disorder:? Patient has episodes of depersonalization and derealization which the typically arise when triggered and during which time she will feel detached from herself, from her body and feel as if things are unreal and dream like, with out a sense of time; after they conclude and she is again in the present, she can be upset about some behaviors she engaged in during the dissociate period once made aware. Not BPD: Regarding past references to borderline personality disorder, Chalk Tester and team agree there have been no axis II traits expressed throughout her time in the hospital; none could be cleaned from records No psychotic illness: no psychotic symptoms past or present Patient educated on: diagnosis and medication risk/benefits Informed Consent: understands Reason for contiued inpatient stay Substantial Risk for: inability to function Time Spent With Patient Time: Total time managing care of this patient today ____ minutes.
[2023-01-07] MEDS: Ziprasidone 20 MG CAPSULE PO (10:52)
[2023-01-07] MEDS: cloNIDine HCL 0.1 MG TABLET PO ×2 (13:38→23:08)
[2023-01-07 17:05] VITALS: BP 88/53; PULSE 80; TEMP 36.8
[2023-01-07] MEDS: OLANZapine 10 MG TABLET 20 MG PO (23:06)
[2023-01-07] MEDS: Famotidine 20 MG TABLET PO (23:07)
[2023-01-07] MEDS: Multivitamin TABLET 1 TAB PO (23:07)
[2023-01-07] MEDS: diphenhydrAMINE HCL 25 MG CAPSULE 50 MG PO (23:07)
[2023-01-07] MEDS: traZODone HCL 100 MG TABLET PO (23:08)
[2023-01-07] MEDS: NaPROXEN 500 MG TABLET PO (23:34)
[2023-01-08 00:05] VITALS: BP 111/61; PULSE 89; TEMP 36.4
[2023-01-08 13:40] VITALS: BP 109/60; PULSE 85; RESP 14; TEMP 36.9
[2023-01-08] MEDS: Divalproex Sodium Sprinkles 125 MG CAP.DR.SPR 1250 MG PO ×2 (13:41→20:10)
[2023-01-08] MEDS: Sennosides/Docusate Sodium TABLET 1 TAB PO ×2 (13:41→20:11)
[2023-01-08] MEDS: Furosemide 20 MG TABLET PO ×2 (13:41→16:53)
[2023-01-08] MEDS: FLUoxetine HCl 20 MG CAPSULE 40 MG PO (13:41)
[2023-01-08] MEDS: cloNIDine HCL 0.1 MG TABLET PO ×2 (14:08→20:12)
--- NOTE | 2023-01-08 17:15 | HO.PSYCHPN ---
Subjective Subjective Date of Service: 01/08/23 Reason For Visit: Mood Dysregulation Interim History: Met with patient; discussed with team Patient reports continued discomfort with bilateral lower limb edema and does not feel much relief from Lasix. Otherwise she is reporting okay mood still struggling with hopeless thoughts. Agrees to continue with current medication regimen. Branch Office Administrator met with patient's grandmother and discussed case in grandmother agrees with treatment plan thus far. Branch Office Administrator spent time filling out guardianship paperwork Mental Status Exam Mental Status Exam Narrative: Pt is alert and oriented; behavior is cooperative, calm; patient is not in distress; dressed in casual attire, mood is described as okay and affect downcast; eye contact appropriate; Speech is normal rate; normal volume and prosody; some psychomotor retardation present; thought process is organized and goal directed; Thought content is on struggles, past trauma, treatment; otherwise pertinent to relevant topics and without any delusional content, paranoid ideations or grandiosity; no SI; no HI. No AVH and there is no evidence of perceptual disturbance.. Patients insight and judgment are fair and at baseline. Diagnostics Vital Signs (24Hr): Vital Signs - 24 hr 01/08/23 00:05 01/08/23 13:40 Temperature 97.5 F 98.4 F Pulse Rate 89 85 Respiratory Rate 14 Blood Pressure 111/61 109/60 BMI result Body Mass Index 38.2 Labs 12/27/22 20:00 12/27/22 19:59 Medications Medications Current Medications Acetaminophen (Acetaminophen 325 Mg Tablet) 650 mg PO Q6H PRN PRN Reason: Headache/Pain Mild Scale (1-3) Al Hydroxide/Mg Hydroxide (Magnesium Hydrox/Alum Hydrox 30 Ml Oral.Susp) 30 ml PO Q6H PRN PRN Reason: Heartburn/Nausea Last Admin: 12/31/22 08:29 Dose: 30 ml Clonidine HCl (Clonidine Hcl 0.1 Mg Tablet) 0.1 mg PO BID@1400,2100 [facility]; Protocol Last Admin: 01/08/23 14:08 Dose: 0.1 mg Diphenhydramine HCl (Diphenhydramine Hcl 25 Mg Capsule) 50 mg PO BEDTIME [facility] Last Admin: 01/07/23 23:07 Dose: 50 mg Divalproex Sodium (Divalproex Sodium Sprinkles 125 Mg ) 1,250 mg PO BID [facility] Last Admin: 01/08/23 13:41 Dose: 1,250 mg Famotidine (Famotidine 20 Mg Tablet) 20 mg PO BEDTIME [facility] Last Admin: 01/07/23 23:07 Dose: 20 mg Famotidine (Famotidine 20 Mg Tablet) 20 mg PO DAILY PRN PRN Reason: GERD Fluoxetine HCl (Fluoxetine Hcl 20 Mg Capsule) 40 mg PO DAILY [facility] Last Admin: 01/08/23 13:41 Dose: 40 mg Furosemide (Furosemide 20 Mg Tablet) 20 mg PO BID@0900,1700 [facility]; Protocol Last Admin: 01/08/23 16:53 Dose: 20 mg Loratadine (Loratadine 10 Mg Tablet) 10 mg PO DAILY PRN PRN Reason: congestion Magnesium Hydroxide (Milk Of Magnesia 30 Ml Oral.Susp) 30 ml PO DAILY PRN PRN Reason: Constipation Melatonin (Melatonin 3 Mg Tablet) 3 mg PO BEDTIME PRN PRN Reason: insomnia Last Admin: 01/06/23 00:04 Dose: 3 mg Multivitamins/Vitamin C (Multivitamin Tablet) 1 tab PO BEDTIME [facility] Last Admin: 01/07/23 23:07 Dose: 1 tab Naproxen (Naproxen 500 Mg Tablet) 500 mg PO Q12H PRN PRN Reason: mild pain Last Admin: 01/07/23 23:34 Dose: 500 mg Olanzapine (Olanzapine 10 Mg Tablet) 20 mg PO BEDTIME [facility] Last Admin: 01/07/23 23:06 Dose: 20 mg Olanzapine (Olanzapine Odt 10 Mg Tab.Rapdis) 10 mg TRANSLINGU DAILY PRN PRN Reason: Psychosis Senna/Docusate Sodium (Sennosides/Docusate Sodium Tablet) 1 tab PO BID [facility] Last Admin: 01/08/23 13:41 Dose: 1 tab Trazodone HCl (Trazodone Hcl 50 Mg Tablet) 50 mg PO BEDTIME PRN PRN Reason: insomnia Last Admin: 01/06/23 00:04 Dose: 50 mg Trazodone HCl (Trazodone Hcl 100 Mg Tablet) 100 mg PO BEDTIME [facility] Last Admin: 01/07/23 23:08 Dose: 100 mg Ziprasidone (Ziprasidone 20 Mg Capsule) 20 mg PO BID PRN PRN Reason: Agitation Last Admin: 01/07/23 10:52 Dose: 20 mg Allergies Allergies Allergy/AdvReac Type Severity Reaction Status Date / Time chlorpromazine Allergy Anaphylaxis Verified 12/27/22 16:37 [From Thorazine] nut - unspecified Allergy Anxiety Verified 12/27/22 16:37 haloperidol [From Haldol] AdvReac Agitated Verified 12/27/22 16:37 lithium AdvReac Hives Verified 12/27/22 16:37 Assessment & Plan Assessment & Plan (1) Autism: Status: Suspected Code(s): F84.0 - Autistic disorder (2) PTSD (post-traumatic stress disorder): Status: Suspected Code(s): F43.10 - Post-traumatic stress disorder, unspecified (3) Intermittent explosive disorder: Status: Acute Code(s): F63.81 - Intermittent explosive disorder (4) CHARLES positive: Status: Acute Code(s): R76.8 - Other specified abnormal immunological findings in serum (5) Chronic restrictive lung disease: Status: Acute Code(s): J98.4 - Other disorders of lung (6) Peripheral edema: Status: Acute Code(s): R60.9 - Edema, unspecified (7) Amenorrhea: Status: Acute Code(s): N91.2 - Amenorrhea, unspecified Plan HPI: Patient is a bright, kind 22-year-old female, well known to this service, with history of Autism, PTSD recently discharged from on 12/25/2022 (and recently dc'd from [facility] after 5 years) who re-presents 2 days later for resurgence of suicidal ideation, dissociative episode and having run out during therapy session, into the street trying to hit by traffic and then eloping again from crisis again trying to get hit by oncoming cars. This has happened after ever discharge since coming to [facility]. Patient reports that day she left she had the intrusive thought that I am gonna screw this up again which just built and built until it overwhelmed her. Patient says she tried very hard to resist self-harm but the constant intrusive thought was unrelenting. She reports that on the way into the therapist building she got triggered as setting and some other people around reminded her of [facility]; already being on edge, this launched her into a full-blown panic attack; she dissociated and ran into the street wanting to . Patient says she just cannot seem to control. She also worries that she is unsafe living at her grandmother's, whom she loves dearly, because her grandmother is not able to sense when patient is starting to unravel and cannot preemptively help ground her and prevent dysregulated/dissociate of episode; patient says that sometimes she is able to alert her grandmother that she is headed this direction but many time she is not. Patient says she needs to live in a place with staff who were trained who can help divert her from such episodes. Passive SI remains but none active. Patient does not want to and wants to continue with treatment therapy. It is unclear if patient meets full criteria for OCD diagnosis however she has OCD like symptoms and will thus increase Prozac which has thus far been well tolerated. Hospital course: 12/30 stabilizing; continue current treatment plan 12/31 patient continues to stabilize; no change in medications at this time however will likely seek to reduce possibly Depakote her Zyprexa level; may increase Prozac for PTSD/OCD like symptoms 01/01 stabilizing 01/02 tough night, needing geodon prns; asked to change depakote to sprinkles and maybe lower dose since tired in daytime and pt may be stable at lower dose 01/03 will add short trial of Lasix 20mg BID for continued lower limb edema (Jamal stockings tried and ripped) 01/06/23- Continue current plan and regime 01/07 continue current treatment plan for now PLAN: *Started Lasix 20mg BID on 01/03 for b/l lower limb edema 1. ASD/PTSD/intermittent explosive disorder: CHANGED to Depakote sprinkles DR 1200mg bId (roughly equiv to Depakote ER 2500 mg q.h.s ...) Continue Zyprexa 20 mg q.h.s. (may very well tolerate lower dose as overseen by outpatient provider) Increased Prozac to 40mg (increased during this admission) Continue Xanax 0.5 mg t.i.d. p.r.n. for agitation; may give alone or with Geodon Continue Geodon 20 mg b.i.d. p.r.n. for agitation (*pt may get IM Geodon if requested for faster action) Continue Clonidine 0.1 mg t.i.d. Continue Trazodone 100 mg q.h.s. DC'd zyprexa 5mg in afternoon DC'd perphenazine (patient has no history of psychotic illness and very likely does not need this medication) Chronic conditions: 2. CHARLES positive appointment made with Rheumatology February 20 -daytime fatigue; b/l peripheral edema; mild dyspnea on exertion Discussed with Dr. Hamilton who recommends and following labs ordered: -Urine protein creatinine ratio -Rheumatoid factor -CCP antibody 3. Bilateral peripheral edema (lower/upper extrem):? Medication side effect (Zyprexa/Depakote)?? vs organic origin some reduction w/ lowering of medications Zyprexa and depakote r/u autoimune 4. Complaint of chronic struggles with inspiration: lungs CTA; CXR unremarkable Pulmonary function test: results reviewed, discussed with Dr. Melchor -elevated CHARLES and abnromal PFTs with a mild restriction with a mild diffusion impairment. -could be explained by her elevated BMI. -at this time dr. Melchor reports given lab work, at this time it does not look like she has lupus nor sjogrens nor scleroderma. Her cxr was good. needs a sleep study as an out pt (daytime drowsiness bringing up the possibility of obstructive sleep apnea) does not need an inpt ct scan but should f/up with outpt pulmonary and rheumatology. -in further discussion, Dr. Melchor agrees that CHARLES needs further evaluation, 5. Amenorrhea: Patient did have menses a few years ago while on control; has not had it since control discontinued about 2 years ago Labs: mostly WNL; will f/u with PCP/plastic extrusion operator PSYCHIATRIC IMPRESSION/DIAGNOSIS:. Impression: Patient is a fun, intelligent, cooperative and friendly person. When she gets triggered by something she can decompensate severely, dissociate and become physically aggressive.? Patient is now diagnosed with ASD, PTSD, and intermittent explosive disorder.? From [facility], she carried the diagnosis of Schizoaffective disorder and mention of borderline personality disorder.? Both of these have been ruled out.? Patient has no present psychotic symptoms, denies any history of AVH or delusional thinking, and has no reported history anywhere that can be found of any psychotic symptoms (history includes keno writer having gone through numerous pages of notes from [facility] and other institutions).? She is linear, logical, articulate, insightful and organized in her thinking; she is organized in her behaviors.? Patient can have intrusive thoughts but only when triggered and this does not seem to be OCD.? She can have some rigid thinking in line with ASD.? Many of her dysregulated moments come from her PTSD being exacerbated.? Patient has well tolerated decrease of Zyprexa, decrease of Depakote and discontinuation of perphenazine. Primary dx: ASD. Patient's father and grandmother maintain that she met her milestones in childhood. 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 During childhood she attended [facility] [place], treatment center typically for people with autism; in [place] when at [facility], she carried a dx of ASD.? As observed on the unit, Patient frequently rocks back and forth, when standing or sitting, while talking to others or calming herself down.? Patient does not have a sense of a person's personal space and will get much to close to a person when talking; she is redirectable and apologizes but she is unaware she is doing it and does not get verbal cues when conversation participant is backing away or trying to end a conversation; though redirectable, she will again get too close, again unaware.? In the milieu with peers, While she will sometimes spend time in the vicinity of others, she is mostly alongside people and not directly interacting with them.? That said, she will directly interact with staff. Patient does make eye contact, however she stares the entire time she is engaged. ? She can have a logical conversation, however she is concrete Patient has a blunted affect and though she can smile and laugh, she is otherwise expressionless with blunted affect. Patient has in flexibility regarding food when it is not as expected patient can get severely dysregulated Patient has some hypo-reactivity to loud noises and crowds of people. Conversely, She does get jokes, even subtle ones. Symptoms have clearly made life functioning extremely difficult.? It is unclear if patient has had neuropsych testing. She did spend time at [facility]. Regarding PTSD: Patient has a history of trauma from both childhood experiences, as well as trauma that occurred while on inpatient unit at [facility] and [place].? She has also been institutionalized since a young age, away from her mother and father, feeling abandoned.? She can have several regressed behaviors and some child-like interests. Regarding Dissociative Disorder:? Patient has episodes of depersonalization and derealization which the typically arise when triggered and during which time she will feel detached from herself, from her body and feel as if things are unreal and dream like, with out a sense of time; after they conclude and she is again in the present, she can be upset about some behaviors she engaged in during the dissociate period once made aware. Not BPD: Regarding past references to borderline personality disorder, Branch Office Administrator and team agree there have been no axis II traits expressed throughout her time in the hospital; none could be cleaned from records No psychotic illness: no psychotic symptoms past or present Patient educated on: diagnosis and medication risk/benefits Informed Consent: understands Reason for contiued inpatient stay Substantial Risk for: rapid decompensation Time Spent With Patient Time: Total time managing care of this patient today ____ minutes.
[2023-01-08 18:00] VITALS: BP 109/68; PULSE 78; RESP 16; TEMP 36.4; O2SAT 98
[2023-01-08] MEDS: OLANZapine 10 MG TABLET 20 MG PO (20:11)
[2023-01-08] MEDS: traZODone HCL 100 MG TABLET PO (20:11)
[2023-01-08] MEDS: diphenhydrAMINE HCL 25 MG CAPSULE 50 MG PO (20:11)
[2023-01-08] MEDS: Multivitamin TABLET 1 TAB PO (20:11)
[2023-01-08] MEDS: Famotidine 20 MG TABLET PO (20:12)
--- NOTE | 2023-01-09 10:06 | HO.PSYCHPN ---
Subjective Subjective Date of Service: 01/09/23 Reason For Visit: Mood Dysregulation Interim History: Met with patient; discussed with team Patient continues to present with worsening depression; she asks if there is anything promotion writer can do to take it away regarding medication management. Patient says she has never had depression this bad before and that it makes it feel like it is [physically] hurting all over. Discussed change in Depakote formulation and patient does not know if this is contributory. Patient shares how she wishes she was and knows it is a bad thing to say; however she does not believe things will ever get better. Patient shares that she has been dealing with this issue since he was 6 years old and if at 22 it is still not better it probably never will be. She says it is feelings like this that make her want to run into traffic. Patient struggles to accept that there has been significant improvement, especially [facility]. Also discussed how it was unlikely that she would easily adjust to living in the community after living in a state hospital per 5 straight years and that acclimation will likely be gradual. Chief Strategy Officer discussed how her perspective could definitely contribute to her depression. Patient agrees to increasing Prozac Patient is also feeling anguish about peer who continues to call her names; patient had an altercation with this peer last week and said the bullying, the name calling and the throwing of her things on the floor just built up and the patient lost control. Mental Status Exam Mental Status Exam Narrative: Pt is alert and oriented; behavior is cooperative, calm; dressed in casual attire, mood is described as sad and affect congruent, downcast; less contact appropriate; Speech is slower rate and lower volume; psychomotor retardation present; thought process is organized and goal directed; Thought content is on feeling hopeless, struggles, past trauma, treatment; otherwise pertinent to relevant topics and without any delusional content, paranoid ideations or grandiosity; SI present; no HI. No AVH and there is no evidence of perceptual disturbance.. Patients insight and judgment are impaired. Diagnostics Vital Signs (24Hr): Vital Signs - 24 hr 01/08/23 13:40 01/08/23 18:00 Temperature 98.4 F 97.6 F Pulse Rate 85 78 Respiratory Rate 14 16 Blood Pressure 109/60 109/68 Pulse Oximetry 98 Oxygen Delivery Method Room Air BMI result Body Mass Index 38.2 Labs 12/27/22 20:00 12/27/22 19:59 Medications Medications Current Medications Acetaminophen (Acetaminophen 325 Mg Tablet) 650 mg PO Q6H PRN PRN Reason: Headache/Pain Mild Scale (1-3) Al Hydroxide/Mg Hydroxide (Magnesium Hydrox/Alum Hydrox 30 Ml Oral.Susp) 30 ml PO Q6H PRN PRN Reason: Heartburn/Nausea Last Admin: 12/31/22 08:29 Dose: 30 ml Clonidine HCl (Clonidine Hcl 0.1 Mg Tablet) 0.1 mg PO BID@1400,2100 [facility]; Protocol Last Admin: 01/08/23 20:12 Dose: 0.1 mg Diphenhydramine HCl (Diphenhydramine Hcl 25 Mg Capsule) 50 mg PO BEDTIME [facility] Last Admin: 01/08/23 20:11 Dose: 50 mg Divalproex Sodium (Divalproex Sodium Sprinkles 125 Mg ) 1,250 mg PO BID [facility] Last Admin: 01/08/23 20:10 Dose: 1,250 mg Famotidine (Famotidine 20 Mg Tablet) 20 mg PO BEDTIME [facility] Last Admin: 01/08/23 20:12 Dose: 20 mg Famotidine (Famotidine 20 Mg Tablet) 20 mg PO DAILY PRN PRN Reason: GERD Fluoxetine HCl (Fluoxetine Hcl 20 Mg Capsule) 40 mg PO DAILY [facility] Last Admin: 01/08/23 13:41 Dose: 40 mg Furosemide (Furosemide 20 Mg Tablet) 20 mg PO BID@0900,1700 [facility]; Protocol Last Admin: 01/08/23 16:53 Dose: 20 mg Loratadine (Loratadine 10 Mg Tablet) 10 mg PO DAILY PRN PRN Reason: congestion Magnesium Hydroxide (Milk Of Magnesia 30 Ml Oral.Susp) 30 ml PO DAILY PRN PRN Reason: Constipation Melatonin (Melatonin 3 Mg Tablet) 3 mg PO BEDTIME PRN PRN Reason: insomnia Last Admin: 01/06/23 00:04 Dose: 3 mg Multivitamins/Vitamin C (Multivitamin Tablet) 1 tab PO BEDTIME [facility] Last Admin: 01/08/23 20:11 Dose: 1 tab Naproxen (Naproxen 500 Mg Tablet) 500 mg PO Q12H PRN PRN Reason: mild pain Last Admin: 01/07/23 23:34 Dose: 500 mg Olanzapine (Olanzapine 10 Mg Tablet) 20 mg PO BEDTIME [facility] Last Admin: 01/08/23 20:11 Dose: 20 mg Olanzapine (Olanzapine Odt 10 Mg Tab.Rapdis) 10 mg TRANSLINGU DAILY PRN PRN Reason: Psychosis Senna/Docusate Sodium (Sennosides/Docusate Sodium Tablet) 1 tab PO BID [facility] Last Admin: 01/08/23 20:11 Dose: 1 tab Trazodone HCl (Trazodone Hcl 50 Mg Tablet) 50 mg PO BEDTIME PRN PRN Reason: insomnia Last Admin: 01/06/23 00:04 Dose: 50 mg Trazodone HCl (Trazodone Hcl 100 Mg Tablet) 100 mg PO BEDTIME [facility] Last Admin: 01/08/23 20:11 Dose: 100 mg Ziprasidone (Ziprasidone 20 Mg Capsule) 20 mg PO BID PRN PRN Reason: Agitation Last Admin: 01/07/23 10:52 Dose: 20 mg Allergies Allergies Allergy/AdvReac Type Severity Reaction Status Date / Time chlorpromazine Allergy Anaphylaxis Verified 12/27/22 16:37 [From Thorazine] nut - unspecified Allergy Anxiety Verified 12/27/22 16:37 haloperidol [From Haldol] AdvReac Agitated Verified 12/27/22 16:37 lithium AdvReac Hives Verified 12/27/22 16:37 Assessment & Plan Assessment & Plan (1) Autism: Status: Suspected Code(s): F84.0 - Autistic disorder (2) PTSD (post-traumatic stress disorder): Status: Suspected Code(s): F43.10 - Post-traumatic stress disorder, unspecified (3) Intermittent explosive disorder: Status: Acute Code(s): F63.81 - Intermittent explosive disorder (4) CHARLES positive: Status: Acute Code(s): R76.8 - Other specified abnormal immunological findings in serum (5) Chronic restrictive lung disease: Status: Acute Code(s): J98.4 - Other disorders of lung (6) Peripheral edema: Status: Acute Code(s): R60.9 - Edema, unspecified (7) Amenorrhea: Status: Acute Code(s): N91.2 - Amenorrhea, unspecified Plan HPI: Patient is a bright, kind 22-year-old female, well known to this service, with history of Autism, PTSD recently discharged from on 12/25/2022 (and recently dc'd from [facility] after 5 years) who re-presents 2 days later for resurgence of suicidal ideation, dissociative episode and having run out during therapy session, into the street trying to hit by traffic and then eloping again from crisis again trying to get hit by oncoming cars. This has happened after ever discharge since coming to [facility]. Patient reports that day she left she had the intrusive thought that I am gonna screw this up again which just built and built until it overwhelmed her. Patient says she tried very hard to resist self-harm but the constant intrusive thought was unrelenting. She reports that on the way into the therapist building she got triggered as setting and some other people around reminded her of [facility]; already being on edge, this launched her into a full-blown panic attack; she dissociated and ran into the street wanting to . Patient says she just cannot seem to control. She also worries that she is unsafe living at her grandmother's, whom she loves dearly, because her grandmother is not able to sense when patient is starting to unravel and cannot preemptively help ground her and prevent dysregulated/dissociate of episode; patient says that sometimes she is able to alert her grandmother that she is headed this direction but many time she is not. Patient says she needs to live in a place with staff who were trained who can help divert her from such episodes. Passive SI remains but none active. Patient does not want to and wants to continue with treatment therapy. It is unclear if patient meets full criteria for OCD diagnosis however she has OCD like symptoms and will thus increase Prozac which has thus far been well tolerated. Hospital course: 12/30 stabilizing; continue current treatment plan 12/31 patient continues to stabilize; no change in medications at this time however will likely seek to reduce possibly Depakote her Zyprexa level; may increase Prozac for PTSD/OCD like symptoms 01/01 stabilizing 01/02 tough night, needing geodon prns; asked to change depakote to sprinkles and maybe lower dose since tired in daytime and pt may be stable at lower dose 01/03 will add short trial of Lasix 20mg BID for continued lower limb edema (Jamal stockings tried and ripped) 01/06/23- Continue current plan and regime 01/07 continue current treatment plan for now 01/09 patient is significantly more depressed, hopeless and wishing she were . Situational stressors are significantly contributory including limited options for disposition and stressors on the unit; however patient is also reflecting on her life, her chronic symptoms and long history of living in institutions, creating a hopelessness that her things will get better. It is possible that changing Depakote formulation to DR could be contributory, however theoretically it is the same total daily dose. -patient has been in an institution more time the not since 6 years old and has spent the last 5 years in a [facility]; it was likely an unreasonable expectation that she would be able to immediately discharge and be successful in community. Rather acclimation will be a gradual process. At this time will increase Prozac to 60 mg to see if this can help. Currently patient is depressed and suicidal and in imminent risk of harm to self if discharged. PLAN: *Started Lasix 20mg BID on 01/03 for b/l lower limb edema Bilateral lower limbs with minimal improvement; right hand more swollen than left 1. ASD/PTSD/intermittent explosive disorder: CHANGED to Depakote sprinkles DR 1200mg bId (roughly equiv to Depakote ER 2500 mg q.h.s ...) Continue Zyprexa 20 mg q.h.s. (may very well tolerate lower dose as overseen by outpatient provider) Increased Prozac to 60mg (increased during this admission) Continue Xanax 0.5 mg t.i.d. p.r.n. for agitation; may give alone or with Geodon Continue Geodon 20 mg b.i.d. p.r.n. for agitation (*pt may get IM Geodon if requested for faster action) Continue Clonidine 0.1 mg t.i.d. Continue Trazodone 100 mg q.h.s. DC'd zyprexa 5mg in afternoon DC'd perphenazine (patient has no history of psychotic illness and very likely does not need this medication) Chronic conditions: 2. CHARLES positive appointment made with Rheumatology February 20 -daytime fatigue; b/l peripheral edema; mild dyspnea on exertion Discussed with Dr. Hamilton who recommends and following labs ordered: -Urine protein creatinine ratio -Rheumatoid factor -CCP antibody 3. Bilateral peripheral edema (lower/upper extrem):? Medication side effect (Zyprexa/Depakote)?? vs organic origin some reduction w/ lowering of medications Zyprexa and depakote r/u autoimune 4. Complaint of chronic struggles with inspiration: lungs CTA; CXR unremarkable Pulmonary function test: results reviewed, discussed with Dr. Melchor -elevated CHARLES and abnromal PFTs with a mild restriction with a mild diffusion impairment. -could be explained by her elevated BMI. -at this time dr. Melchor reports given lab work, at this time it does not look like she has lupus nor sjogrens nor scleroderma. Her cxr was good. needs a sleep study as an out pt (daytime drowsiness bringing up the possibility of obstructive sleep apnea) does not need an inpt ct scan but should f/up with outpt pulmonary and rheumatology. -in further discussion, Dr. Melchor agrees that CHARLES needs further evaluation, 5. Amenorrhea: Patient did have menses a few years ago while on control; has not had it since control discontinued about 2 years ago Labs: mostly WNL; will f/u with PCP/physician gynecologist PSYCHIATRIC IMPRESSION/DIAGNOSIS:. Impression: Patient is a fun, intelligent, cooperative and friendly person. When she gets triggered by something she can decompensate severely, dissociate and become physically aggressive.? Patient is now diagnosed with ASD, PTSD, and intermittent explosive disorder.? From [facility], she carried the diagnosis of Schizoaffective disorder and mention of borderline personality disorder.? Both of these have been ruled out.? Patient has no present psychotic symptoms, denies any history of AVH or delusional thinking, and has no reported history anywhere that can be found of any psychotic symptoms (history includes promotion writer having gone through numerous pages of notes from [facility] and other institutions).? She is linear, logical, articulate, insightful and organized in her thinking; she is organized in her behaviors.? Patient can have intrusive thoughts but only when triggered and this does not seem to be OCD.? She can have some rigid thinking in line with ASD.? Many of her dysregulated moments come from her PTSD being exacerbated.? Patient has well tolerated decrease of Zyprexa, decrease of Depakote and discontinuation of perphenazine. Primary dx: ASD. Patient's father and grandmother maintain that she met her milestones in childhood. 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 During childhood she attended [facility] in [place], treatment center typically for people with autism; in [place] when at [facility], she carried a dx of ASD.? As observed on the unit, Patient frequently rocks back and forth, when standing or sitting, while talking to others or calming herself down.? Patient does not have a sense of a person's personal space and will get much to close to a person when talking; she is redirectable and apologizes but she is unaware she is doing it and does not get verbal cues when conversation participant is backing away or trying to end a conversation; though redirectable, she will again get too close, again unaware.? In the milieu with peers, While she will sometimes spend time in the vicinity of others, she is mostly alongside people and not directly interacting with them.? That said, she will directly interact with staff. Patient does make eye contact, however she stares the entire time she is engaged. ? She can have a logical conversation, however she is concrete Patient has a blunted affect and though she can smile and laugh, she is otherwise expressionless with blunted affect. Patient has in flexibility regarding food when it is not as expected patient can get severely dysregulated Patient has some hypo-reactivity to loud noises and crowds of people. Conversely, She does get jokes, even subtle ones. Symptoms have clearly made life functioning extremely difficult.? It is unclear if patient has had neuropsych testing. She did spend time at [facility]. Regarding PTSD: Patient has a history of trauma from both childhood experiences, as well as trauma that occurred while on inpatient unit at [facility] and [place].? She has also been institutionalized since a young age, away from her mother and father, feeling abandoned.? She can have several regressed behaviors and some child-like interests. Regarding Dissociative Disorder:? Patient has episodes of depersonalization and derealization which the typically arise when triggered and during which time she will feel detached from herself, from her body and feel as if things are unreal and dream like, with out a sense of time; after they conclude and she is again in the present, she can be upset about some behaviors she engaged in during the dissociate period once made aware. Not BPD: Regarding past references to borderline personality disorder, Chief Strategy Officer and team agree there have been no axis II traits expressed throughout her time in the hospital; none could be cleaned from records No psychotic illness: no psychotic symptoms past or present Patient educated on: diagnosis, medication risk/benefits and therapeutic strategies Informed Consent: understands and further education needed Reason for contiued inpatient stay Substantial Risk for: harm to self and inability to function Time Spent With Patient Time: Total time managing care of this patient today ____ minutes.
[2023-01-09 13:30] VITALS: BP 104/52; PULSE 91; RESP 14; TEMP 36.9
[2023-01-09] MEDS: Sennosides/Docusate Sodium TABLET 1 TAB PO ×2 (13:30→22:36)
[2023-01-09] MEDS: Divalproex Sodium Sprinkles 125 MG CAP.DR.SPR 1250 MG PO ×2 (13:30→22:33)
[2023-01-09] MEDS: FLUoxetine HCl 20 MG CAPSULE 40 MG PO (13:30)
[2023-01-09] MEDS: Furosemide 20 MG TABLET PO ×2 (13:30→18:26)
[2023-01-09] MEDS: cloNIDine HCL 0.1 MG TABLET PO ×2 (13:46→22:36)
--- NOTE | 2023-01-09 14:43 | PC.NURSE ---
Pt stated to this play writer she was feeling anxious and nervous. Pt provided with sensory activities; pt reported positive results.
[2023-01-09 18:20] VITALS: BP 104/66; PULSE 91; RESP 14; TEMP 37
[2023-01-09 20:01] VITALS: BP 112/69; PULSE 74; RESP 18; TEMP 36.3; O2SAT 99
[2023-01-09] MEDS: OLANZapine 10 MG TABLET 20 MG PO (22:36)
[2023-01-09] MEDS: Famotidine 20 MG TABLET PO (22:36)
[2023-01-09] MEDS: traZODone HCL 100 MG TABLET PO (22:36)
[2023-01-09] MEDS: Multivitamin TABLET 1 TAB PO (22:37)
[2023-01-09] MEDS: diphenhydrAMINE HCL 25 MG CAPSULE 50 MG PO (22:37)
[2023-01-10] MEDS: Divalproex Sodium Sprinkles 125 MG CAP.DR.SPR 1250 MG PO ×2 (08:23→21:20)
[2023-01-10] MEDS: Sennosides/Docusate Sodium TABLET 1 TAB PO ×2 (08:23→21:21)
[2023-01-10] MEDS: Furosemide 20 MG TABLET PO ×2 (08:23→18:09)
[2023-01-10] MEDS: FLUoxetine HCl 20 MG CAPSULE 60 MG PO (08:24)
[2023-01-10 08:58] VITALS: BP 116/70; PULSE 88; RESP 16; TEMP 36.5; O2SAT 95
--- NOTE | 2023-01-10 12:21 | HO.PSYCHPN ---
Subjective Subjective Date of Service: 01/10/23 Reason For Visit: Mood Dysregulation Interim History: Met with patient; discussed with team Patient remains depressed, gloomy. SI remains present. Harder with which to engage given depressive, downcast affect Mental Status Exam Mental Status Exam Narrative: Pt is alert and oriented; behavior is cooperative, calm; dressed in casual attire, mood is described as depressed and affect congruent, downcast; less contact appropriate; Speech is slower rate and lower volume; psychomotor retardation present; thought process is organized and goal directed; Thought content is on feeling hopeless, struggles, past trauma, treatment; otherwise pertinent to relevant topics and without any delusional content, paranoid ideations or grandiosity; SI present; no HI. No AVH and there is no evidence of perceptual disturbance.. Patients insight and judgment are impaired. Diagnostics Vital Signs (24Hr): Vital Signs - 24 hr 01/09/23 13:30 01/09/23 18:20 01/09/23 20:01 Temperature 98.4 F 98.6 F 97.3 F Pulse Rate 91 91 74 Respiratory Rate 14 14 18 Blood Pressure 104/52 L 104/66 112/69 Pulse Oximetry 99 Oxygen Delivery Method Room Air 01/10/23 08:58 Temperature 97.7 F Pulse Rate 88 Respiratory Rate 16 Blood Pressure 116/70 Pulse Oximetry 95 Oxygen Delivery Method Room Air BMI result Body Mass Index 38.2 Labs 12/27/22 20:00 12/27/22 19:59 Medications Medications Current Medications Acetaminophen (Acetaminophen 325 Mg Tablet) 650 mg PO Q6H PRN PRN Reason: Headache/Pain Mild Scale (1-3) Al Hydroxide/Mg Hydroxide (Magnesium Hydrox/Alum Hydrox 30 Ml Oral.Susp) 30 ml PO Q6H PRN PRN Reason: Heartburn/Nausea Last Admin: 12/31/22 08:29 Dose: 30 ml Clonidine HCl (Clonidine Hcl 0.1 Mg Tablet) 0.1 mg PO BID@1400,2100 REPLACED BY [facility]; Protocol Last Admin: 01/09/23 22:36 Dose: 0.1 mg Diphenhydramine HCl (Diphenhydramine Hcl 25 Mg Capsule) 50 mg PO BEDTIME REPLACED BY [facility] Last Admin: 01/09/23 22:37 Dose: 50 mg Divalproex Sodium (Divalproex Sodium Sprinkles 125 Mg ) 1,250 mg PO BID REPLACED BY [facility] Last Admin: 01/10/23 08:23 Dose: 1,250 mg Famotidine (Famotidine 20 Mg Tablet) 20 mg PO BEDTIME REPLACED BY [facility] Last Admin: 01/09/23 22:36 Dose: 20 mg Famotidine (Famotidine 20 Mg Tablet) 20 mg PO DAILY PRN PRN Reason: GERD Fluoxetine HCl (Fluoxetine Hcl 20 Mg Capsule) 60 mg PO DAILY REPLACED BY [facility] Last Admin: 01/10/23 08:24 Dose: 60 mg Furosemide (Furosemide 20 Mg Tablet) 20 mg PO BID@0900,1700 REPLACED BY [facility]; Protocol Last Admin: 01/10/23 08:23 Dose: 20 mg Loratadine (Loratadine 10 Mg Tablet) 10 mg PO DAILY PRN PRN Reason: congestion Magnesium Hydroxide (Milk Of Magnesia 30 Ml Oral.Susp) 30 ml PO DAILY PRN PRN Reason: Constipation Melatonin (Melatonin 3 Mg Tablet) 3 mg PO BEDTIME PRN PRN Reason: insomnia Last Admin: 01/06/23 00:04 Dose: 3 mg Multivitamins/Vitamin C (Multivitamin Tablet) 1 tab PO BEDTIME REPLACED BY [facility] Last Admin: 01/09/23 22:37 Dose: 1 tab Naproxen (Naproxen 500 Mg Tablet) 500 mg PO Q12H PRN PRN Reason: mild pain Last Admin: 01/07/23 23:34 Dose: 500 mg Olanzapine (Olanzapine 10 Mg Tablet) 20 mg PO BEDTIME REPLACED BY [facility] Last Admin: 01/09/23 22:36 Dose: 20 mg Olanzapine (Olanzapine Odt 10 Mg Tab.Rapdis) 10 mg TRANSLINGU DAILY PRN PRN Reason: Psychosis Senna/Docusate Sodium (Sennosides/Docusate Sodium Tablet) 1 tab PO BID REPLACED BY [facility] Last Admin: 01/10/23 08:23 Dose: 1 tab Trazodone HCl (Trazodone Hcl 50 Mg Tablet) 50 mg PO BEDTIME PRN PRN Reason: insomnia Last Admin: 01/06/23 00:04 Dose: 50 mg Trazodone HCl (Trazodone Hcl 100 Mg Tablet) 100 mg PO BEDTIME REPLACED BY [facility] Last Admin: 01/09/23 22:36 Dose: 100 mg Ziprasidone (Ziprasidone 20 Mg Capsule) 20 mg PO BID PRN PRN Reason: Agitation Last Admin: 01/07/23 10:52 Dose: 20 mg Allergies Allergies Allergy/AdvReac Type Severity Reaction Status Date / Time chlorpromazine Allergy Anaphylaxis Verified 12/27/22 16:37 [From Thorazine] nut - unspecified Allergy Anxiety Verified 12/27/22 16:37 haloperidol [From Haldol] AdvReac Agitated Verified 12/27/22 16:37 lithium AdvReac Hives Verified 12/27/22 16:37 Assessment & Plan Assessment & Plan (1) Autism: Status: Suspected Code(s): F84.0 - Autistic disorder (2) PTSD (post-traumatic stress disorder): Status: Suspected Code(s): F43.10 - Post-traumatic stress disorder, unspecified (3) Intermittent explosive disorder: Status: Acute Code(s): F63.81 - Intermittent explosive disorder (4) CHARLES positive: Status: Acute Code(s): R76.8 - Other specified abnormal immunological findings in serum (5) Chronic restrictive lung disease: Status: Acute Code(s): J98.4 - Other disorders of lung (6) Peripheral edema: Status: Acute Code(s): R60.9 - Edema, unspecified (7) Amenorrhea: Status: Acute Code(s): N91.2 - Amenorrhea, unspecified Plan HPI: Patient is a bright, kind 22-year-old female, well known to this service, with history of Autism, PTSD recently discharged from on 12/25/2022 (and recently dc'd from [facility] after 5 years) who re-presents 2 days later for resurgence of suicidal ideation, dissociative episode and having run out during therapy session, into the street trying to hit by traffic and then eloping again from crisis again trying to get hit by oncoming cars. This has happened after ever discharge since coming to [facility]. Patient reports that day she left she had the intrusive thought that I am gonna screw this up again which just built and built until it overwhelmed her. Patient says she tried very hard to resist self-harm but the constant intrusive thought was unrelenting. She reports that on the way into the therapist building she got triggered as setting and some other people around reminded her of [facility]; already being on edge, this launched her into a full-blown panic attack; she dissociated and ran into the street wanting to . Patient says she just cannot seem to control. She also worries that she is unsafe living at her grandmother's, whom she loves dearly, because her grandmother is not able to sense when patient is starting to unravel and cannot preemptively help ground her and prevent dysregulated/dissociate of episode; patient says that sometimes she is able to alert her grandmother that she is headed this direction but many time she is not. Patient says she needs to live in a place with staff who were trained who can help divert her from such episodes. Passive SI remains but none active. Patient does not want to and wants to continue with treatment therapy. It is unclear if patient meets full criteria for OCD diagnosis however she has OCD like symptoms and will thus increase Prozac which has thus far been well tolerated. Hospital course: 12/30 stabilizing; continue current treatment plan 12/31 patient continues to stabilize; no change in medications at this time however will likely seek to reduce possibly Depakote her Zyprexa level; may increase Prozac for PTSD/OCD like symptoms 01/01 stabilizing 01/02 tough night, needing geodon prns; asked to change depakote to sprinkles and maybe lower dose since tired in daytime and pt may be stable at lower dose 01/03 will add short trial of Lasix 20mg BID for continued lower limb edema (Jamal stockings tried and ripped) 01/06/23- Continue current plan and regime 01/07 continue current treatment plan for now 01/09 patient is significantly more depressed, hopeless and wishing she were . Situational stressors are significantly contributory including limited options for disposition and stressors on the unit; however patient is also reflecting on her life, her chronic symptoms and long history of living in institutions, creating a hopelessness that her things will get better. It is possible that changing Depakote formulation to DR could be contributory, however theoretically it is the same total daily dose. -patient has been in an institution more time the not since 6 years old and has spent the last 5 years in a [facility]; it was likely an unreasonable expectation that she would be able to immediately discharge and be successful in community. Rather acclimation will be a gradual process. At this time will increase Prozac to 60 mg to see if this can help. Currently patient is depressed and suicidal and in imminent risk of harm to self if discharged. PLAN: *Started Lasix 20mg BID on 01/03 for b/l lower limb edema Bilateral lower limbs with minimal improvement; right hand more swollen than left 1. ASD/PTSD/intermittent explosive disorder: CHANGED to Depakote sprinkles DR 1200mg bId (roughly equiv to Depakote ER 2500 mg q.h.s ...) Continue Zyprexa 20 mg q.h.s. (may very well tolerate lower dose as overseen by outpatient provider) Increased Prozac to 60mg (increased during this admission) Continue Xanax 0.5 mg t.i.d. p.r.n. for agitation; may give alone or with Geodon Continue Geodon 20 mg b.i.d. p.r.n. for agitation (*pt may get IM Geodon if requested for faster action) Continue Clonidine 0.1 mg t.i.d. Continue Trazodone 100 mg q.h.s. DC'd zyprexa 5mg in afternoon DC'd perphenazine (patient has no history of psychotic illness and very likely does not need this medication) Chronic conditions: 2. CHARLES positive appointment made with Rheumatology February 20 -daytime fatigue; b/l peripheral edema; mild dyspnea on exertion Discussed with Dr. Hamilton who recommends and following labs ordered: -Urine protein creatinine ratio -Rheumatoid factor -CCP antibody 3. Bilateral peripheral edema (lower/upper extrem):? Medication side effect (Zyprexa/Depakote)?? vs organic origin some reduction w/ lowering of medications Zyprexa and depakote r/u autoimune 4. Complaint of chronic struggles with inspiration: lungs CTA; CXR unremarkable Pulmonary function test: results reviewed, discussed with Dr. Melchor -elevated CHARLES and abnromal PFTs with a mild restriction with a mild diffusion impairment. -could be explained by her elevated BMI. -at this time dr. Melchor reports given lab work, at this time it does not look like she has lupus nor sjogrens nor scleroderma. Her cxr was good. needs a sleep study as an out pt (daytime drowsiness bringing up the possibility of obstructive sleep apnea) does not need an inpt ct scan but should f/up with outpt pulmonary and rheumatology. -in further discussion, Dr. Melchor agrees that CHARLES needs further evaluation, 5. Amenorrhea: Patient did have menses a few years ago while on control; has not had it since control discontinued about 2 years ago Labs: mostly WNL; will f/u with PCP/information technology professor PSYCHIATRIC IMPRESSION/DIAGNOSIS:. Impression: Patient is a fun, intelligent, cooperative and friendly person. When she gets triggered by something she can decompensate severely, dissociate and become physically aggressive.? Patient is now diagnosed with ASD, PTSD, and intermittent explosive disorder.? From [facility], she carried the diagnosis of Schizoaffective disorder and mention of borderline personality disorder.? Both of these have been ruled out.? 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 She is linear, logical, articulate, insightful and organized in her thinking; she is organized in her behaviors.? Patient can have intrusive thoughts but only when triggered and this does not seem to be OCD.? She can have some rigid thinking in line with ASD.? Many of her dysregulated moments come from her PTSD being exacerbated.? Patient has well tolerated decrease of Zyprexa, decrease of Depakote and discontinuation of perphenazine. Primary dx: ASD. Patient's father and grandmother maintain that she met her milestones in childhood. 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 During childhood she attended [facility] in [place], treatment center typically for people with autism; in [place] when at [facility], she carried a dx of ASD.? As observed on the unit, Patient frequently rocks back and forth, when standing or sitting, while talking to others or calming herself down.? Patient does not have a sense of a person's personal space and will get much to close to a person when talking; she is redirectable and apologizes but she is unaware she is doing it and does not get verbal cues when conversation participant is backing away or trying to end a conversation; though redirectable, she will again get too close, again unaware.? In the milieu with peers, While she will sometimes spend time in the vicinity of others, she is mostly alongside people and not directly interacting with them.? That said, she will directly interact with staff. Patient does make eye contact, however she stares the entire time she is engaged. ? She can have a logical conversation, however she is concrete Patient has a blunted affect and though she can smile and laugh, she is otherwise expressionless with blunted affect. Patient has in flexibility regarding food when it is not as expected patient can get severely dysregulated Patient has some hypo-reactivity to loud noises and crowds of people. Conversely, She does get jokes, even subtle ones. Symptoms have clearly made life functioning extremely difficult.? It is unclear if patient has had neuropsych testing. She did spend time at [facility]. Regarding PTSD: Patient has a history of trauma from both childhood experiences, as well as trauma that occurred while on inpatient unit at [facility] and [place].? She has also been institutionalized since a young age, away from her mother and father, feeling abandoned.? She can have several regressed behaviors and some child-like interests. Regarding Dissociative Disorder:? Patient has episodes of depersonalization and derealization which the typically arise when triggered and during which time she will feel detached from herself, from her body and feel as if things are unreal and dream like, with out a sense of time; after they conclude and she is again in the present, she can be upset about some behaviors she engaged in during the dissociate period once made aware. Not BPD: Regarding past references to borderline personality disorder, [employer] and team agree there have been no axis II traits expressed throughout her time in the hospital; none could be cleaned from records No psychotic illness: no psychotic symptoms past or present Patient educated on: diagnosis Informed Consent: understands Reason for contiued inpatient stay Substantial Risk for: inability to function Time Spent With Patient Time: Total time managing care of this patient today ____ minutes.
[2023-01-10] MEDS: cloNIDine HCL 0.1 MG TABLET PO ×2 (14:15→21:21)
[2023-01-10 14:17] VITALS: BMI 38.1
[2023-01-10 18:10] VITALS: BP 120/64; PULSE 91; RESP 14; TEMP 37
[2023-01-10] MEDS: diphenhydrAMINE HCL 25 MG CAPSULE 50 MG PO (21:20)
[2023-01-10] MEDS: OLANZapine 10 MG TABLET 20 MG PO (21:20)
[2023-01-10] MEDS: traZODone HCL 100 MG TABLET PO (21:21)
[2023-01-10] MEDS: Multivitamin TABLET 1 TAB PO (21:21)
[2023-01-10] MEDS: Famotidine 20 MG TABLET PO (22:22)
[2023-01-10] MEDS: traZODone HCL 50 MG TABLET PO (22:34)
[2023-01-11 08:33] VITALS: BP 97/55; PULSE 54; RESP 16; TEMP 36.1; O2SAT 98
[2023-01-11] MEDS: Divalproex Sodium Sprinkles 125 MG CAP.DR.SPR 1250 MG PO ×2 (08:44→20:33)
[2023-01-11] MEDS: FLUoxetine HCl 20 MG CAPSULE 60 MG PO (08:45)
[2023-01-11] MEDS: Furosemide 20 MG TABLET PO ×2 (08:45→16:13)
[2023-01-11] MEDS: Sennosides/Docusate Sodium TABLET 1 TAB PO ×2 (08:45→20:33)
--- NOTE | 2023-01-11 10:02 | HO.PSYCHPN ---
Subjective Subjective Date of Service: 01/11/23 Reason For Visit: Mood Dysregulation Interim History: Met with patient; discussed with team Patient reports she is still quite depressed however feels that her depression is not quite as severe as it was earlier this week. She thinks it is likely due to the Prozac increase and says she just does not feel as heavy, does not as weighted down. Patient remains anxious about what will happen post discharge, feeling scared to return to her grandmother's believing she will not be able to remain safe. Mental Status Exam Mental Status Exam Narrative: Pt is alert and oriented; behavior is cooperative, calm; dressed in casual attire, mood is described as depressed and affect congruent, downcast but a little less so; less contact appropriate; Speech is regular rate, volume, prosody; some psychomotor retardation present; thought process is organized and goal directed; Thought content is on feeling hopeless, struggles, past trauma, treatment; otherwise pertinent to relevant topics and without any delusional content, paranoid ideations or grandiosity; no SI; no HI. No AVH and there is no evidence of perceptual disturbance.. Patients insight and judgment are impaired. Diagnostics Vital Signs (24Hr): Vital Signs - 24 hr 01/10/23 18:10 01/11/23 08:33 Temperature 98.6 F 96.9 F Pulse Rate 91 54 Respiratory Rate 14 16 Blood Pressure 120/64 97/55 L Pulse Oximetry 98 Oxygen Delivery Method Room Air BMI result Body Mass Index 38.1 Labs 12/27/22 20:00 12/27/22 19:59 Medications Medications Current Medications Acetaminophen (Acetaminophen 325 Mg Tablet) 650 mg PO Q6H PRN PRN Reason: Headache/Pain Mild Scale (1-3) Al Hydroxide/Mg Hydroxide (Magnesium Hydrox/Alum Hydrox 30 Ml Oral.Susp) 30 ml PO Q6H PRN PRN Reason: Heartburn/Nausea Last Admin: 12/31/22 08:29 Dose: 30 ml Clonidine HCl (Clonidine Hcl 0.1 Mg Tablet) 0.1 mg PO BID@1400,2100 [facility]; Protocol Last Admin: 01/10/23 21:21 Dose: 0.1 mg Diphenhydramine HCl (Diphenhydramine Hcl 25 Mg Capsule) 50 mg PO BEDTIME [facility] Last Admin: 01/10/23 21:20 Dose: 50 mg Divalproex Sodium (Divalproex Sodium Sprinkles 125 Mg ) 1,250 mg PO BID [facility] Last Admin: 01/11/23 08:44 Dose: 1,250 mg Famotidine (Famotidine 20 Mg Tablet) 20 mg PO BEDTIME [facility] Last Admin: 01/10/23 22:22 Dose: 20 mg Famotidine (Famotidine 20 Mg Tablet) 20 mg PO DAILY PRN PRN Reason: GERD Fluoxetine HCl (Fluoxetine Hcl 20 Mg Capsule) 60 mg PO DAILY [facility] Last Admin: 01/11/23 08:45 Dose: 60 mg Furosemide (Furosemide 20 Mg Tablet) 20 mg PO BID@0900,1700 [facility]; Protocol Last Admin: 01/11/23 08:45 Dose: 20 mg Loratadine (Loratadine 10 Mg Tablet) 10 mg PO DAILY PRN PRN Reason: congestion Magnesium Hydroxide (Milk Of Magnesia 30 Ml Oral.Susp) 30 ml PO DAILY PRN PRN Reason: Constipation Melatonin (Melatonin 3 Mg Tablet) 3 mg PO BEDTIME PRN PRN Reason: insomnia Last Admin: 01/06/23 00:04 Dose: 3 mg Multivitamins/Vitamin C (Multivitamin Tablet) 1 tab PO BEDTIME [facility] Last Admin: 01/10/23 21:21 Dose: 1 tab Naproxen (Naproxen 500 Mg Tablet) 500 mg PO Q12H PRN PRN Reason: mild pain Last Admin: 01/07/23 23:34 Dose: 500 mg Olanzapine (Olanzapine 10 Mg Tablet) 20 mg PO BEDTIME [facility] Last Admin: 01/10/23 21:20 Dose: 20 mg Olanzapine (Olanzapine Odt 10 Mg Tab.Rapdis) 10 mg TRANSLINGU DAILY PRN PRN Reason: Psychosis Senna/Docusate Sodium (Sennosides/Docusate Sodium Tablet) 1 tab PO BID [facility] Last Admin: 01/11/23 08:45 Dose: 1 tab Trazodone HCl (Trazodone Hcl 50 Mg Tablet) 50 mg PO BEDTIME PRN PRN Reason: insomnia Last Admin: 01/10/23 22:34 Dose: 50 mg Trazodone HCl (Trazodone Hcl 100 Mg Tablet) 100 mg PO BEDTIME [facility] Last Admin: 01/10/23 21:21 Dose: 100 mg Ziprasidone (Ziprasidone 20 Mg Capsule) 20 mg PO BID PRN PRN Reason: Agitation Last Admin: 01/07/23 10:52 Dose: 20 mg Allergies Allergies Allergy/AdvReac Type Severity Reaction Status Date / Time chlorpromazine Allergy Anaphylaxis Verified 12/27/22 16:37 [From Thorazine] nut - unspecified Allergy Anxiety Verified 12/27/22 16:37 haloperidol [From Haldol] AdvReac Agitated Verified 12/27/22 16:37 lithium AdvReac Hives Verified 12/27/22 16:37 Assessment & Plan Assessment & Plan (1) Autism: Status: Suspected Code(s): F84.0 - Autistic disorder (2) PTSD (post-traumatic stress disorder): Status: Suspected Code(s): F43.10 - Post-traumatic stress disorder, unspecified (3) Intermittent explosive disorder: Status: Acute Code(s): F63.81 - Intermittent explosive disorder (4) CHARLES positive: Status: Acute Code(s): R76.8 - Other specified abnormal immunological findings in serum (5) Chronic restrictive lung disease: Status: Acute Code(s): J98.4 - Other disorders of lung (6) Peripheral edema: Status: Acute Code(s): R60.9 - Edema, unspecified (7) Amenorrhea: Status: Acute Code(s): N91.2 - Amenorrhea, unspecified Plan HPI: Patient is a bright, kind 22-year-old female, well known to this service, with history of Autism, PTSD recently discharged from on 12/25/2022 (and recently dc'd from [facility] after 5 years) who re-presents 2 days later for resurgence of suicidal ideation, dissociative episode and having run out during therapy session, into the street trying to hit by traffic and then eloping again from crisis again trying to get hit by oncoming cars. This has happened after ever discharge since coming to [facility]. Patient reports that day she left she had the intrusive thought that I am gonna screw this up again which just built and built until it overwhelmed her. Patient says she tried very hard to resist self-harm but the constant intrusive thought was unrelenting. She reports that on the way into the therapist building she got triggered as setting and some other people around reminded her of [facility]; already being on edge, this launched her into a full-blown panic attack; she dissociated and ran into the street wanting to . Patient says she just cannot seem to control. She also worries that she is unsafe living at her grandmother's, whom she loves dearly, because her grandmother is not able to sense when patient is starting to unravel and cannot preemptively help ground her and prevent dysregulated/dissociate of episode; patient says that sometimes she is able to alert her grandmother that she is headed this direction but many time she is not. Patient says she needs to live in a place with staff who were trained who can help divert her from such episodes. Passive SI remains but none active. Patient does not want to and wants to continue with treatment therapy. It is unclear if patient meets full criteria for OCD diagnosis however she has OCD like symptoms and will thus increase Prozac which has thus far been well tolerated. Hospital course: 12/30 stabilizing; continue current treatment plan 12/31 patient continues to stabilize; no change in medications at this time however will likely seek to reduce possibly Depakote her Zyprexa level; may increase Prozac for PTSD/OCD like symptoms 01/01 stabilizing 01/02 tough night, needing geodon prns; asked to change depakote to sprinkles and maybe lower dose since tired in daytime and pt may be stable at lower dose 01/03 will add short trial of Lasix 20mg BID for continued lower limb edema (Jamal stockings tried and ripped) 01/06/23- Continue current plan and regime 01/07 continue current treatment plan for now 01/09 patient is significantly more depressed, hopeless and wishing she were . Situational stressors are significantly contributory including limited options for disposition and stressors on the unit; however patient is also reflecting on her life, her chronic symptoms and long history of living in institutions, creating a hopelessness that her things will get better. It is possible that changing Depakote formulation to DR could be contributory, however theoretically it is the same total daily dose. -patient has been in an institution more time the not since 6 years old and has spent the last 5 years in a [facility]; it was likely an unreasonable expectation that she would be able to immediately discharge and be successful in community. Rather acclimation will be a gradual process. At this time will increase Prozac to 60 mg to see if this can help. Currently patient is depressed and suicidal and in imminent risk of harm to self if discharged. 01/07 for patient a little bit improved, depression a little lower possibly due to increased Prozac PLAN: *Started Lasix 20mg BID on 01/03 for b/l lower limb edema Bilateral lower limbs with minimal improvement; right hand more swollen than left 1. ASD/PTSD/intermittent explosive disorder: CHANGED to Depakote sprinkles DR 1200mg bId (roughly equiv to Depakote ER 2500 mg q.h.s ...) Continue Zyprexa 20 mg q.h.s. (may very well tolerate lower dose as overseen by outpatient provider) Increased Prozac to 60mg (increased during this admission) Continue Xanax 0.5 mg t.i.d. p.r.n. for agitation; may give alone or with Geodon Continue Geodon 20 mg b.i.d. p.r.n. for agitation (*pt may get IM Geodon if requested for faster action) Continue Clonidine 0.1 mg t.i.d. Continue Trazodone 100 mg q.h.s. DC'd zyprexa 5mg in afternoon DC'd perphenazine (patient has no history of psychotic illness and very likely does not need this medication) Chronic conditions: 2. CHARLES positive appointment made with Rheumatology February 20 -daytime fatigue; b/l peripheral edema; mild dyspnea on exertion Discussed with Dr. Hamilton who recommends and following labs ordered: -Urine protein creatinine ratio -Rheumatoid factor -CCP antibody 3. Bilateral peripheral edema (lower/upper extrem):? Medication side effect (Zyprexa/Depakote)?? vs organic origin some reduction w/ lowering of medications Zyprexa and depakote r/u autoimune 4. Complaint of chronic struggles with inspiration: lungs CTA; CXR unremarkable Pulmonary function test: results reviewed, discussed with Dr. Melchor -elevated CHARLES and abnromal PFTs with a mild restriction with a mild diffusion impairment. -could be explained by her elevated BMI. -at this time dr. Melchor reports given lab work, at this time it does not look like she has lupus nor sjogrens nor scleroderma. Her cxr was good. needs a sleep study as an out pt (daytime drowsiness bringing up the possibility of obstructive sleep apnea) does not need an inpt ct scan but should f/up with outpt pulmonary and rheumatology. -in further discussion, Dr. Melchor agrees that CHARLES needs further evaluation, 5. 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 Impression: Patient is a fun, intelligent, cooperative and friendly person. When she gets triggered by something she can decompensate severely, dissociate and become physically aggressive.? Patient is now diagnosed with ASD, PTSD, and intermittent explosive disorder.? From [facility], she carried the diagnosis of Schizoaffective disorder and mention of borderline personality disorder.? Both of these have been ruled out.? 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 She is linear, logical, articulate, insightful and organized in her thinking; she is organized in her behaviors.? Patient can have intrusive thoughts but only when triggered and this does not seem to be OCD.? She can have some rigid thinking in line with ASD.? Many of her dysregulated moments come from her PTSD being exacerbated.? Patient has well tolerated decrease of Zyprexa, decrease of Depakote and discontinuation of perphenazine. Primary dx: ASD. Patient's father and grandmother maintain that she met her milestones in childhood. 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 During childhood she attended [facility] in [place], treatment center typically for people with autism; in [place] when at [facility], she carried a dx of ASD.? As observed on the unit, Patient frequently rocks back and forth, when standing or sitting, while talking to others or calming herself down.? Patient does not have a sense of a person's personal space and will get much to close to a person when talking; she is redirectable and apologizes but she is unaware she is doing it and does not get verbal cues when conversation participant is backing away or trying to end a conversation; though redirectable, she will again get too close, again unaware.? In the milieu with peers, While she will sometimes spend time in the vicinity of others, she is mostly alongside people and not directly interacting with them.? That said, she will directly interact with staff. Patient does make eye contact, however she stares the entire time she is engaged. ? She can have a logical conversation, however she is concrete Patient has a blunted affect and though she can smile and laugh, she is otherwise expressionless with blunted affect. Patient has in flexibility regarding food when it is not as expected patient can get severely dysregulated Patient has some hypo-reactivity to loud noises and crowds of people. Conversely, She does get jokes, even subtle ones. Symptoms have clearly made life functioning extremely difficult.? It is unclear if patient has had neuropsych testing. She did spend time at [facility]. Regarding PTSD: Patient has a history of trauma from both childhood experiences, as well as trauma that occurred while on inpatient unit at [facility] and [place].? She has also been institutionalized since a young age, away from her mother and father, feeling abandoned.? She can have several regressed behaviors and some child-like interests. Regarding Dissociative Disorder:? Patient has episodes of depersonalization and derealization which the typically arise when triggered and during which time she will feel detached from herself, from her body and feel as if things are unreal and dream like, with out a sense of time; after they conclude and she is again in the present, she can be upset about some behaviors she engaged in during the dissociate period once made aware. Not BPD: Regarding past references to borderline personality disorder, [employer] and team agree there have been no axis II traits expressed throughout her time in the hospital; none could be cleaned from records No psychotic illness: no psychotic symptoms past or present Patient educated on: diagnosis and medication risk/benefits Informed Consent: understands Reason for contiued inpatient stay Substantial Risk for: inability to function Time Spent With Patient Time: Total time managing care of this patient today ____ minutes.
[2023-01-11] MEDS: cloNIDine HCL 0.1 MG TABLET PO ×2 (13:44→20:32)
[2023-01-11] MEDS: Famotidine 20 MG TABLET PO (20:32)
[2023-01-11] MEDS: OLANZapine 10 MG TABLET 20 MG PO (20:32)
[2023-01-11] MEDS: Multivitamin TABLET 1 TAB PO (20:32)
[2023-01-11] MEDS: traZODone HCL 100 MG TABLET PO (20:32)
[2023-01-11] MEDS: diphenhydrAMINE HCL 25 MG CAPSULE 50 MG PO (20:32)
[2023-01-11 20:41] VITALS: BP 101/57; PULSE 75; RESP 16; TEMP 36.4; O2SAT 97
[2023-01-11] MEDS: Ziprasidone 20 MG CAPSULE PO (21:16)
[2023-01-11] MEDS: Milk of Magnesia 30 ML ORAL.SUSP PO (21:26)
[2023-01-11] MEDS: NaPROXEN 500 MG TABLET PO (22:06)
[2023-01-12 06:00] VITALS: BP 120/51; PULSE 89; RESP 14; TEMP 36.6; O2SAT 99
[2023-01-12] MEDS: Divalproex Sodium Sprinkles 125 MG CAP.DR.SPR 1250 MG PO ×2 (08:34→19:47)
[2023-01-12] MEDS: Furosemide 20 MG TABLET PO ×2 (08:34→18:11)
[2023-01-12] MEDS: FLUoxetine HCl 20 MG CAPSULE 60 MG PO (08:34)
[2023-01-12] MEDS: Sennosides/Docusate Sodium TABLET 1 TAB PO ×2 (08:34→19:46)
[2023-01-12 14:04] VITALS: BP 91/51
--- NOTE | 2023-01-12 16:23 | HO.PSYCHPN ---
Subjective Subjective Date of Service: 01/12/23 Reason For Visit: Mood Dysregulation Subjective Notes: Conditional Voluntary Healthcare Proxy: No Guardianship: No Medical Problems Affecting Mental Status: No Interim History: Review with team/nursing. Pt requests to have Alprazolam returned to her regime. Checked in with Dr. Bustos who approved, so this was returned. Quiet today, napping, interactive with peers and team, attending to ADL's. Medication Compliance: Yes Side effects from medications: No Attending Groups: Intermittent Review of Systems Acute medical concerns: No Medical Review of Systems: unchanged Mental Status Exam Mental Status Exam Patient Appearance: Appropriate Patient Orientation: Person, Place, Time and Situation Level of Consciousness: Alert Patient Behavior: Talkative Mood Description: Constricted Affect Description: Constricted Patient Cognition Impaired: Yes Ability to Follow Directions: Fair Speech Pattern: Spontaneous Speech Memory Description: Episodic Impaired Hallucinations: None Perceptual Disturbances: Depersonalization and Derealization Thought Process: Distracted Thought Content: positive for Circumstantial Depressive Symptoms: Increased Anxiety Judgement: Poor Diagnostics Vital Signs (24Hr): Vital Signs - 24 hr 01/11/23 20:41 01/12/23 06:00 01/12/23 14:04 Temperature 97.6 F 97.8 F Pulse Rate 75 89 Respiratory Rate 16 14 Blood Pressure 101/57 L 120/51 L 91/51 L Pulse Oximetry 97 99 Oxygen Delivery Method Room Air Room Air BMI result Body Mass Index 38.1 Labs 12/27/22 20:00 12/27/22 19:59 Medications Medications Current Medications Acetaminophen (Acetaminophen 325 Mg Tablet) 650 mg PO Q6H PRN PRN Reason: Headache/Pain Mild Scale (1-3) Al Hydroxide/Mg Hydroxide (Magnesium Hydrox/Alum Hydrox 30 Ml Oral.Susp) 30 ml PO Q6H PRN PRN Reason: Heartburn/Nausea Last Admin: 12/31/22 08:29 Dose: 30 ml Alprazolam (Alprazolam 0.5 Mg Tablet) 0.5 mg PO TID PRN PRN Reason: Anxiety Clonidine HCl (Clonidine Hcl 0.1 Mg Tablet) 0.1 mg PO BID@1400,2100 [facility]; Protocol Last Admin: 01/12/23 14:03 Dose: Not Given Diphenhydramine HCl (Diphenhydramine Hcl 25 Mg Capsule) 50 mg PO BEDTIME [facility] Last Admin: 01/11/23 20:32 Dose: 50 mg Divalproex Sodium (Divalproex Sodium Sprinkles 125 Mg ) 1,250 mg PO BID [facility] Last Admin: 01/12/23 08:34 Dose: 1,250 mg Famotidine (Famotidine 20 Mg Tablet) 20 mg PO BEDTIME [facility] Last Admin: 01/11/23 20:32 Dose: 20 mg Famotidine (Famotidine 20 Mg Tablet) 20 mg PO DAILY PRN PRN Reason: GERD Fluoxetine HCl (Fluoxetine Hcl 20 Mg Capsule) 60 mg PO DAILY [facility] Last Admin: 01/12/23 08:34 Dose: 60 mg Furosemide (Furosemide 20 Mg Tablet) 20 mg PO BID@0900,1700 [facility]; Protocol Last Admin: 01/12/23 08:34 Dose: 20 mg Loratadine (Loratadine 10 Mg Tablet) 10 mg PO DAILY PRN PRN Reason: congestion Magnesium Hydroxide (Milk Of Magnesia 30 Ml Oral.Susp) 30 ml PO DAILY PRN PRN Reason: Constipation Last Admin: 01/11/23 21:26 Dose: 30 ml Melatonin (Melatonin 3 Mg Tablet) 3 mg PO BEDTIME PRN PRN Reason: insomnia Last Admin: 01/06/23 00:04 Dose: 3 mg Multivitamins/Vitamin C (Multivitamin Tablet) 1 tab PO BEDTIME [facility] Last Admin: 01/11/23 20:32 Dose: 1 tab Naproxen (Naproxen 500 Mg Tablet) 500 mg PO Q12H PRN PRN Reason: mild pain Last Admin: 01/11/23 22:06 Dose: 500 mg Olanzapine (Olanzapine 10 Mg Tablet) 20 mg PO BEDTIME [facility] Last Admin: 01/11/23 20:32 Dose: 20 mg Olanzapine (Olanzapine Odt 10 Mg Tab.Rapdis) 10 mg TRANSLINGU DAILY PRN PRN Reason: Psychosis Senna/Docusate Sodium (Sennosides/Docusate Sodium Tablet) 1 tab PO BID [facility] Last Admin: 01/12/23 08:34 Dose: 1 tab Trazodone HCl (Trazodone Hcl 50 Mg Tablet) 50 mg PO BEDTIME PRN PRN Reason: insomnia Last Admin: 01/10/23 22:34 Dose: 50 mg Trazodone HCl (Trazodone Hcl 100 Mg Tablet) 100 mg PO BEDTIME [facility] Last Admin: 01/11/23 20:32 Dose: 100 mg Ziprasidone (Ziprasidone 20 Mg Capsule) 20 mg PO BID PRN PRN Reason: Agitation Last Admin: 01/11/23 21:16 Dose: 20 mg Allergies Allergies Allergy/AdvReac Type Severity Reaction Status Date / Time chlorpromazine Allergy Anaphylaxis Verified 12/27/22 16:37 [From Thorazine] nut - unspecified Allergy Anxiety Verified 12/27/22 16:37 haloperidol [From Haldol] AdvReac Agitated Verified 12/27/22 16:37 lithium AdvReac Hives Verified 12/27/22 16:37 Assessment & Plan Assessment & Plan (1) Autism: Status: Suspected Code(s): F84.0 - Autistic disorder (2) PTSD (post-traumatic stress disorder): Status: Suspected Code(s): F43.10 - Post-traumatic stress disorder, unspecified (3) Intermittent explosive disorder: Status: Acute Code(s): F63.81 - Intermittent explosive disorder (4) CHARLES positive: Status: Acute Code(s): R76.8 - Other specified abnormal immunological findings in serum (5) Chronic restrictive lung disease: Status: Acute Code(s): J98.4 - Other disorders of lung (6) Peripheral edema: Status: Acute Code(s): R60.9 - Edema, unspecified (7) Amenorrhea: Status: Acute Code(s): N91.2 - Amenorrhea, unspecified Plan HPI: Patient is a bright, kind 22-year-old female, well known to this service, with history of Autism, PTSD recently discharged from on 12/25/2022 (and recently dc'd from [facility] after 5 years) who re-presents 2 days later for resurgence of suicidal ideation, dissociative episode and having run out during therapy session, into the street trying to hit by traffic and then eloping again from crisis again trying to get hit by oncoming cars. This has happened after ever discharge since coming to [facility]. Patient reports that day she left she had the intrusive thought that I am gonna screw this up again which just built and built until it overwhelmed her. Patient says she tried very hard to resist self-harm but the constant intrusive thought was unrelenting. She reports that on the way into the therapist building she got triggered as setting and some other people around reminded her of [facility]; already being on edge, this launched her into a full-blown panic attack; she dissociated and ran into the street wanting to . Patient says she just cannot seem to control. She also worries that she is unsafe living at her grandmother's, whom she loves dearly, because her grandmother is not able to sense when patient is starting to unravel and cannot preemptively help ground her and prevent dysregulated/dissociate of episode; patient says that sometimes she is able to alert her grandmother that she is headed this direction but many time she is not. Patient says she needs to live in a place with staff who were trained who can help divert her from such episodes. Passive SI remains but none active. Patient does not want to and wants to continue with treatment therapy. It is unclear if patient meets full criteria for OCD diagnosis however she has OCD like symptoms and will thus increase Prozac which has thus far been well tolerated. Hospital course: 12/30 stabilizing; continue current treatment plan 12/31 patient continues to stabilize; no change in medications at this time however will likely seek to reduce possibly Depakote her Zyprexa level; may increase Prozac for PTSD/OCD like symptoms 01/01 stabilizing 01/02 tough night, needing geodon prns; asked to change depakote to sprinkles and maybe lower dose since tired in daytime and pt may be stable at lower dose 01/03 will add short trial of Lasix 20mg BID for continued lower limb edema (Jamal stockings tried and ripped) 01/06/23- Continue current plan and regime 01/07 continue current treatment plan for now 01/09 patient is significantly more depressed, hopeless and wishing she were . Situational stressors are significantly contributory including limited options for disposition and stressors on the unit; however patient is also reflecting on her life, her chronic symptoms and long history of living in institutions, creating a hopelessness that her things will get better. It is possible that changing Depakote formulation to DR could be contributory, however theoretically it is the same total daily dose. -patient has been in an institution more time the not since 6 years old and has spent the last 5 years in a [facility]; it was likely an unreasonable expectation that she would be able to immediately discharge and be successful in community. Rather acclimation will be a gradual process. At this time will increase Prozac to 60 mg to see if this can help. Currently patient is depressed and suicidal and in imminent risk of harm to self if discharged. 01/07 for patient a little bit improved, depression a little lower possibly due to increased Prozac 01/12/23 Continue current plan. PLAN: *Started Lasix 20mg BID on 01/03 for b/l lower limb edema Bilateral lower limbs with minimal improvement; right hand more swollen than left 1. ASD/PTSD/intermittent explosive disorder: CHANGED to Depakote sprinkles DR 1200mg bId (roughly equiv to Depakote ER 2500 mg q.h.s ...) Continue Zyprexa 20 mg q.h.s. (may very well tolerate lower dose as overseen by outpatient provider) Increased Prozac to 60mg (increased during this admission) Continue Xanax 0.5 mg t.i.d. p.r.n. for agitation; may give alone or with Geodon Continue Geodon 20 mg b.i.d. p.r.n. for agitation (*pt may get IM Geodon if requested for faster action) Continue Clonidine 0.1 mg t.i.d. Continue Trazodone 100 mg q.h.s. DC'd zyprexa 5mg in afternoon DC'd perphenazine (patient has no history of psychotic illness and very likely does not need this medication) Chronic conditions: 2. CHARLES positive appointment made with Rheumatology February 20 -daytime fatigue; b/l peripheral edema; mild dyspnea on exertion Discussed with Dr. Hamilton who recommends and following labs ordered: -Urine protein creatinine ratio -Rheumatoid factor -CCP antibody 3. Bilateral peripheral edema (lower/upper extrem):? Medication side effect (Zyprexa/Depakote)?? vs organic origin some reduction w/ lowering of medications Zyprexa and depakote r/u autoimune 4. Complaint of chronic struggles with inspiration: lungs CTA; CXR unremarkable Pulmonary function test: results reviewed, discussed with Dr. Melchor -elevated CHARLES and abnromal PFTs with a mild restriction with a mild diffusion impairment. -could be explained by her elevated BMI. -at this time dr. Melchor reports given lab work, at this time it does not look like she has lupus nor sjogrens nor scleroderma. Her cxr was good. needs a sleep study as an out pt (daytime drowsiness bringing up the possibility of obstructive sleep apnea) does not need an inpt ct scan but should f/up with outpt pulmonary and rheumatology. -in further discussion, Dr. Melchor agrees that CHARLES needs further evaluation, 5. Amenorrhea: Patient did have menses a few years ago while on control; has not had it since control discontinued about 2 years ago Labs: mostly WNL; will f/u with PCP/hedge trimmer PSYCHIATRIC IMPRESSION/DIAGNOSIS:. Impression: Patient is a fun, intelligent, cooperative and friendly person. When she gets triggered by something she can decompensate severely, dissociate and become physically aggressive.? Patient is now diagnosed with ASD, PTSD, and intermittent explosive disorder.? From [facility], she carried the diagnosis of Schizoaffective disorder and mention of borderline personality disorder.? Both of these have been ruled out.? 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 She is linear, logical, articulate, insightful and organized in her thinking; she is organized in her behaviors.? Patient can have intrusive thoughts but only when triggered and this does not seem to be OCD.? She can have some rigid thinking in line with ASD.? Many of her dysregulated moments come from her PTSD being exacerbated.? Patient has well tolerated decrease of Zyprexa, decrease of Depakote and discontinuation of perphenazine. Primary dx: ASD. Patient's father and grandmother maintain that she met her milestones in childhood. 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 During childhood she attended [facility] in [place], treatment center typically for people with autism; in [place] when at [facility], she carried a dx of ASD.? As observed on the unit, Patient frequently rocks back and forth, when standing or sitting, while talking to others or calming herself down.? Patient does not have a sense of a person's personal space and will get much to close to a person when talking; she is redirectable and apologizes but she is unaware she is doing it and does not get verbal cues when conversation participant is backing away or trying to end a conversation; though redirectable, she will again get too close, again unaware.? In the milieu with peers, While she will sometimes spend time in the vicinity of others, she is mostly alongside people and not directly interacting with them.? That said, she will directly interact with staff. Patient does make eye contact, however she stares the entire time she is engaged. ? She can have a logical conversation, however she is concrete Patient has a blunted affect and though she can smile and laugh, she is otherwise expressionless with blunted affect. Patient has in flexibility regarding food when it is not as expected patient can get severely dysregulated Patient has some hypo-reactivity to loud noises and crowds of people. Conversely, She does get jokes, even subtle ones. Symptoms have clearly made life functioning extremely difficult.? It is unclear if patient has had neuropsych testing. She did spend time at [facility]. Regarding PTSD: Patient has a history of trauma from both childhood experiences, as well as trauma that occurred while on inpatient unit at [facility] and [place].? She has also been institutionalized since a young age, away from her mother and father, feeling abandoned.? She can have several regressed behaviors and some child-like interests. Regarding Dissociative Disorder:? Patient has episodes of depersonalization and derealization which the typically arise when triggered and during which time she will feel detached from herself, from her body and feel as if things are unreal and dream like, with out a sense of time; after they conclude and she is again in the present, she can be upset about some behaviors she engaged in during the dissociate period once made aware. Not BPD: Regarding past references to borderline personality disorder, Furnace Tapper and team agree there have been no axis II traits expressed throughout her time in the hospital; none could be cleaned from records No psychotic illness: no psychotic symptoms past or present Informed Consent: further education needed Reason for contiued inpatient stay Substantial Risk for: rapid decompensation Time Spent With Patient Time: Total time managing care of this patient today ____ minutes.
[2023-01-12 18:00] VITALS: BP 107/69; PULSE 97; RESP 16; TEMP 36.7; O2SAT 97
[2023-01-12] MEDS: cloNIDine HCL 0.1 MG TABLET PO (19:45)
[2023-01-12] MEDS: OLANZapine 10 MG TABLET 20 MG PO (19:45)
[2023-01-12] MEDS: diphenhydrAMINE HCL 25 MG CAPSULE 50 MG PO (19:46)
[2023-01-12] MEDS: traZODone HCL 100 MG TABLET PO (19:46)
[2023-01-12] MEDS: Multivitamin TABLET 1 TAB PO (19:46)
[2023-01-12] MEDS: Famotidine 20 MG TABLET PO (19:46)
[2023-01-12] MEDS: NaPROXEN 500 MG TABLET PO (21:46)
[2023-01-12] MEDS: ALPRAZolam 0.5 MG TABLET PO (22:14)
[2023-01-12] MEDS: Melatonin 3 MG TABLET PO (22:14)
[2023-01-13] MEDS: Divalproex Sodium Sprinkles 125 MG CAP.DR.SPR 1250 MG PO ×2 (10:42→21:27)
[2023-01-13] MEDS: Furosemide 20 MG TABLET PO ×2 (10:43→16:29)
[2023-01-13] MEDS: FLUoxetine HCl 20 MG CAPSULE 60 MG PO (10:43)
[2023-01-13] MEDS: Sennosides/Docusate Sodium TABLET 1 TAB PO ×2 (10:43→21:28)
[2023-01-13 10:58] VITALS: BP 109/56; PULSE 67; RESP 18; TEMP 36.4; O2SAT 96
[2023-01-13 16:35] VITALS: BP 97/62; PULSE 85; RESP 18; TEMP 36.4; O2SAT 97
--- NOTE | 2023-01-13 18:44 | HO.PSYCHPN ---
Subjective Subjective Date of Service: 01/13/23 Reason For Visit: Mood Dysregulation Interim History: Some lability expressed last night- pt having menses a possible contributing factor-she concurs. Involved in milieu and with peers along with resting-interactive and engaging frequently with team and peers. Medication Compliance: Yes Side effects from medications: No Attending Groups: Intermittent Review of Systems Acute medical concerns: No Medical Review of Systems: unchanged Mental Status Exam Mental Status Exam Patient Appearance: Appropriate Patient Orientation: Person, Place, Time and Situation Level of Consciousness: Alert Patient Behavior: Talkative Mood Description: Constricted Affect Description: Constricted Patient Cognition Impaired: Yes Ability to Follow Directions: Fair Speech Pattern: Spontaneous Speech Memory Description: Episodic Impaired Hallucinations: None Perceptual Disturbances: Depersonalization and Derealization Thought Process: Distracted Thought Content: positive for Circumstantial Depressive Symptoms: Increased Anxiety Judgement: Poor Diagnostics Vital Signs (24Hr): Vital Signs - 24 hr 01/13/23 10:58 01/13/23 16:35 Temperature 97.6 F 97.5 F Pulse Rate 67 85 Respiratory Rate 18 18 Blood Pressure 109/56 L 97/62 Pulse Oximetry 96 97 Oxygen Delivery Method Room Air Room Air BMI result Body Mass Index 38.1 Labs 12/27/22 20:00 12/27/22 19:59 Medications Medications Current Medications Acetaminophen (Acetaminophen 325 Mg Tablet) 650 mg PO Q6H PRN PRN Reason: Headache/Pain Mild Scale (1-3) Al Hydroxide/Mg Hydroxide (Magnesium Hydrox/Alum Hydrox 30 Ml Oral.Susp) 30 ml PO Q6H PRN PRN Reason: Heartburn/Nausea Last Admin: 12/31/22 08:29 Dose: 30 ml Alprazolam (Alprazolam 0.5 Mg Tablet) 0.5 mg PO TID PRN PRN Reason: Anxiety Last Admin: 01/12/23 22:14 Dose: 0.5 mg Clonidine HCl (Clonidine Hcl 0.1 Mg Tablet) 0.1 mg PO BID@1400,2100 [facility]; Protocol Last Admin: 01/13/23 14:55 Dose: Not Given Diphenhydramine HCl (Diphenhydramine Hcl 25 Mg Capsule) 50 mg PO BEDTIME [facility] Last Admin: 01/12/23 19:46 Dose: 50 mg Divalproex Sodium (Divalproex Sodium Sprinkles 125 Mg Cap.Dr.Spr) 1,250 mg PO BID [facility] Last Admin: 01/13/23 10:42 Dose: 1,250 mg Famotidine (Famotidine 20 Mg Tablet) 20 mg PO BEDTIME [facility] Last Admin: 01/12/23 19:46 Dose: 20 mg Famotidine (Famotidine 20 Mg Tablet) 20 mg PO DAILY PRN PRN Reason: GERD Fluoxetine HCl (Fluoxetine Hcl 20 Mg Capsule) 60 mg PO DAILY [facility] Last Admin: 01/13/23 10:43 Dose: 60 mg Furosemide (Furosemide 20 Mg Tablet) 20 mg PO BID@0900,1700 [facility]; Protocol Last Admin: 01/13/23 16:29 Dose: 20 mg Loratadine (Loratadine 10 Mg Tablet) 10 mg PO DAILY PRN PRN Reason: congestion Magnesium Hydroxide (Milk Of Magnesia 30 Ml Oral.Susp) 30 ml PO DAILY PRN PRN Reason: Constipation Last Admin: 01/11/23 21:26 Dose: 30 ml Melatonin (Melatonin 3 Mg Tablet) 3 mg PO BEDTIME PRN PRN Reason: insomnia Last Admin: 01/12/23 22:14 Dose: 3 mg Multivitamins/Vitamin C (Multivitamin Tablet) 1 tab PO BEDTIME [facility] Last Admin: 01/12/23 19:46 Dose: 1 tab Naproxen (Naproxen 500 Mg Tablet) 500 mg PO Q12H PRN PRN Reason: mild pain Last Admin: 01/12/23 21:46 Dose: 500 mg Olanzapine (Olanzapine 10 Mg Tablet) 20 mg PO BEDTIME [facility] Last Admin: 01/12/23 19:45 Dose: 20 mg Olanzapine (Olanzapine Odt 10 Mg Tab.Rapdis) 10 mg TRANSLINGU DAILY PRN PRN Reason: Psychosis Senna/Docusate Sodium (Sennosides/Docusate Sodium Tablet) 1 tab PO BID [facility] Last Admin: 01/13/23 10:43 Dose: 1 tab Trazodone HCl (Trazodone Hcl 50 Mg Tablet) 50 mg PO BEDTIME PRN PRN Reason: insomnia Last Admin: 01/10/23 22:34 Dose: 50 mg Trazodone HCl (Trazodone Hcl 100 Mg Tablet) 100 mg PO BEDTIME [facility] Last Admin: 01/12/23 19:46 Dose: 100 mg Ziprasidone (Ziprasidone 20 Mg Capsule) 20 mg PO BID PRN PRN Reason: Agitation Last Admin: 01/11/23 21:16 Dose: 20 mg Allergies Allergies Allergy/AdvReac Type Severity Reaction Status Date / Time chlorpromazine Allergy Anaphylaxis Verified 12/27/22 16:37 [From Thorazine] nut - unspecified Allergy Anxiety Verified 12/27/22 16:37 haloperidol [From Haldol] AdvReac Agitated Verified 12/27/22 16:37 lithium AdvReac Hives Verified 12/27/22 16:37 Assessment & Plan Assessment & Plan (1) Autism: Status: Suspected Code(s): F84.0 - Autistic disorder (2) PTSD (post-traumatic stress disorder): Status: Suspected Code(s): F43.10 - Post-traumatic stress disorder, unspecified (3) Intermittent explosive disorder: Status: Acute Code(s): F63.81 - Intermittent explosive disorder (4) CHARLES positive: Status: Acute Code(s): R76.8 - Other specified abnormal immunological findings in serum (5) Chronic restrictive lung disease: Status: Acute Code(s): J98.4 - Other disorders of lung (6) Peripheral edema: Status: Acute Code(s): R60.9 - Edema, unspecified (7) Amenorrhea: Status: Acute Code(s): N91.2 - Amenorrhea, unspecified Plan HPI: Patient is a bright, kind 22-year-old female, well known to this service, with history of Autism, PTSD recently discharged from on 12/25/2022 (and recently dc'd from [facility] after 5 years) who re-presents 2 days later for resurgence of suicidal ideation, dissociative episode and having run out during therapy session, into the street trying to hit by traffic and then eloping again from crisis again trying to get hit by oncoming cars. This has happened after ever discharge since coming to [facility]. Patient reports that day she left she had the intrusive thought that I am gonna screw this up again which just built and built until it overwhelmed her. Patient says she tried very hard to resist self-harm but the constant intrusive thought was unrelenting. She reports that on the way into the therapist building she got triggered as setting and some other people around reminded her of [facility]; already being on edge, this launched her into a full-blown panic attack; she dissociated and ran into the street wanting to . Patient says she just cannot seem to control. She also worries that she is unsafe living at her grandmother's, whom she loves dearly, because her grandmother is not able to sense when patient is starting to unravel and cannot preemptively help ground her and prevent dysregulated/dissociate of episode; patient says that sometimes she is able to alert her grandmother that she is headed this direction but many time she is not. Patient says she needs to live in a place with staff who were trained who can help divert her from such episodes. Passive SI remains but none active. Patient does not want to and wants to continue with treatment therapy. It is unclear if patient meets full criteria for OCD diagnosis however she has OCD like symptoms and will thus increase Prozac which has thus far been well tolerated. Hospital course: 12/30 stabilizing; continue current treatment plan 12/31 patient continues to stabilize; no change in medications at this time however will likely seek to reduce possibly Depakote her Zyprexa level; may increase Prozac for PTSD/OCD like symptoms 01/01 stabilizing 01/02 tough night, needing geodon prns; asked to change depakote to sprinkles and maybe lower dose since tired in daytime and pt may be stable at lower dose 01/03 will add short trial of Lasix 20mg BID for continued lower limb edema (Jamal stockings tried and ripped) 01/06/23- Continue current plan and regime 01/07 continue current treatment plan for now 01/09 patient is significantly more depressed, hopeless and wishing she were . Situational stressors are significantly contributory including limited options for disposition and stressors on the unit; however patient is also reflecting on her life, her chronic symptoms and long history of living in institutions, creating a hopelessness that her things will get better. It is possible that changing Depakote formulation to DR could be contributory, however theoretically it is the same total daily dose. -patient has been in an institution more time the not since 6 years old and has spent the last 5 years in a [facility]; it was likely an unreasonable expectation that she would be able to immediately discharge and be successful in community. Rather acclimation will be a gradual process. At this time will increase Prozac to 60 mg to see if this can help. Currently patient is depressed and suicidal and in imminent risk of harm to self if discharged. 01/07 for patient a little bit improved, depression a little lower possibly due to increased Prozac 01/12/23 Continue current plan. 01/13/23 Continue current plan. PLAN: *Started Lasix 20mg BID on 01/03 for b/l lower limb edema Bilateral lower limbs with minimal improvement; right hand more swollen than left 1. ASD/PTSD/intermittent explosive disorder: CHANGED to Depakote sprinkles DR 1200mg bId (roughly equiv to Depakote ER 2500 mg q.h.s ...) Continue Zyprexa 20 mg q.h.s. (may very well tolerate lower dose as overseen by outpatient provider) Increased Prozac to 60mg (increased during this admission) Continue Xanax 0.5 mg t.i.d. p.r.n. for agitation; may give alone or with Geodon Continue Geodon 20 mg b.i.d. p.r.n. for agitation (*pt may get IM Geodon if requested for faster action) Continue Clonidine 0.1 mg t.i.d. Continue Trazodone 100 mg q.h.s. DC'd zyprexa 5mg in afternoon DC'd perphenazine (patient has no history of psychotic illness and very likely does not need this medication) Chronic conditions: 2. CHARLES positive appointment made with Rheumatology February 20 -daytime fatigue; b/l peripheral edema; mild dyspnea on exertion Discussed with Dr. Hamilton who recommends and following labs ordered: -Urine protein creatinine ratio -Rheumatoid factor -CCP antibody 3. Bilateral peripheral edema (lower/upper extrem):? Medication side effect (Zyprexa/Depakote)?? vs organic origin some reduction w/ lowering of medications Zyprexa and depakote r/u autoimune 4. Complaint of chronic struggles with inspiration: lungs CTA; CXR unremarkable Pulmonary function test: results reviewed, discussed with Dr. Melchor -elevated CHARLES and abnromal PFTs with a mild restriction with a mild diffusion impairment. -could be explained by her elevated BMI. -at this time dr. Melchor reports given lab work, at this time it does not look like she has lupus nor sjogrens nor scleroderma. Her cxr was good. needs a sleep study as an out pt (daytime drowsiness bringing up the possibility of obstructive sleep apnea) does not need an inpt ct scan but should f/up with outpt pulmonary and rheumatology. -in further discussion, Dr. Melchor agrees that CHARLES needs further evaluation, 5. 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 Impression: Patient is a fun, intelligent, cooperative and friendly person. When she gets triggered by something she can decompensate severely, dissociate and become physically aggressive.? Patient is now diagnosed with ASD, PTSD, and intermittent explosive disorder.? From [facility], she carried the diagnosis of Schizoaffective disorder and mention of borderline personality disorder.? Both of these have been ruled out.? 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 She is linear, logical, articulate, insightful and organized in her thinking; she is organized in her behaviors.? Patient can have intrusive thoughts but only when triggered and this does not seem to be OCD.? She can have some rigid thinking in line with ASD.? Many of her dysregulated moments come from her PTSD being exacerbated.? Patient has well tolerated decrease of Zyprexa, decrease of Depakote and discontinuation of perphenazine. Primary dx: ASD. Patient's father and grandmother maintain that she met her milestones in childhood. 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 During childhood [place] [facility] [place] treatment center typically for people with autism; in [place] when at [facility], she carried a dx of ASD.? As observed on the unit, Patient frequently rocks back and forth, when standing or sitting, while talking to others or calming herself down.? Patient does not have a sense of a person's personal space and will get much to close to a person when talking; she is redirectable and apologizes but she is unaware she is doing it and does not get verbal cues when conversation participant is backing away or trying to end a conversation; though redirectable, she will again get too close, again unaware.? In the milieu with peers, While she will sometimes spend time in the vicinity of others, she is mostly alongside people and not directly interacting with them.? That said, she will directly interact with staff. Patient does make eye contact, however she stares the entire time she is engaged. ? She can have a logical conversation, however she is concrete Patient has a blunted affect and though she can smile and laugh, she is otherwise expressionless with blunted affect. Patient has in flexibility regarding food when it is not as expected patient can get severely dysregulated Patient has some hypo-reactivity to loud noises and crowds of people. Conversely, She does get jokes, even subtle ones. Symptoms have clearly made life functioning extremely difficult.? It is unclear if patient has had neuropsych testing. She did spend time at [facility]. Regarding PTSD: Patient has a history of trauma from both childhood experiences, as well as trauma that occurred while on inpatient unit at [facility] and [place].? She has also been institutionalized since a young age, away from her mother and father, feeling abandoned.? She can have several regressed behaviors and some child-like interests. Regarding Dissociative Disorder:? Patient has episodes of depersonalization and derealization which the typically arise when triggered and during which time she will feel detached from herself, from her body and feel as if things are unreal and dream like, with out a sense of time; after they conclude and she is again in the present, she can be upset about some behaviors she engaged in during the dissociate period once made aware. 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
[2023-01-13] MEDS: cloNIDine HCL 0.1 MG TABLET PO (21:27)
[2023-01-13] MEDS: diphenhydrAMINE HCL 25 MG CAPSULE 50 MG PO (21:27)
[2023-01-13] MEDS: Multivitamin TABLET 1 TAB PO (21:28)
[2023-01-13] MEDS: Famotidine 20 MG TABLET PO (21:28)
[2023-01-13] MEDS: traZODone HCL 100 MG TABLET PO (21:28)
[2023-01-13] MEDS: OLANZapine 10 MG TABLET 20 MG PO (21:28)
[2023-01-14] MEDS: Sennosides/Docusate Sodium TABLET 1 TAB PO ×2 (08:21→22:44)
[2023-01-14] MEDS: FLUoxetine HCl 20 MG CAPSULE 60 MG PO (08:21)
[2023-01-14] MEDS: Divalproex Sodium Sprinkles 125 MG CAP.DR.SPR 1250 MG PO ×2 (08:21→22:46)
[2023-01-14] MEDS: Furosemide 20 MG TABLET PO ×2 (08:21→16:48)
--- NOTE | 2023-01-14 09:53 | HO.PSYCHPN ---
Subjective Subjective Date of Service: 01/14/23 Reason For Visit: Mood Dysregulation Interim History: Met with patient; discussed with team; discussed disposition plan in detail with social Work; filled out guardianship paperwork Patient reports that she remains depressed though not as bad as before and suicidality has resolved. Patient shared that she started her menstrual cycle this past weekend and subsequently, the swelling in her legs and hand has gone down; press writer examined and agrees edema has decreased. Patient able to remain in behavioral control Mental Status Exam Mental Status Exam Narrative: Pt is alert and oriented; behavior is cooperative, calm; dressed in casual attire, mood is described as depressed and affect congruent, downcast but a little less so; eye contact appropriate; Speech is regular rate, volume, prosody; some psychomotor retardation present; thought process is organized and goal directed; Thought content is on trying not to feel hopeless, past trauma, treatment; otherwise pertinent to relevant topics and without any delusional content, paranoid ideations or grandiosity; no SI; no HI. No AVH and there is no evidence of perceptual disturbance.. Patients insight and judgment are impaired but improving. Diagnostics Vital Signs (24Hr): Vital Signs - 24 hr 01/13/23 10:58 01/13/23 16:35 Temperature 97.6 F 97.5 F Pulse Rate 67 85 Respiratory Rate 18 18 Blood Pressure 109/56 L 97/62 Pulse Oximetry 96 97 Oxygen Delivery Method Room Air Room Air BMI result Body Mass Index 38.1 Labs 12/27/22 20:00 12/27/22 19:59 Medications Medications Current Medications Acetaminophen (Acetaminophen 325 Mg Tablet) 650 mg PO Q6H PRN PRN Reason: Headache/Pain Mild Scale (1-3) Al Hydroxide/Mg Hydroxide (Magnesium Hydrox/Alum Hydrox 30 Ml Oral.Susp) 30 ml PO Q6H PRN PRN Reason: Heartburn/Nausea Last Admin: 12/31/22 08:29 Dose: 30 ml Alprazolam (Alprazolam 0.5 Mg Tablet) 0.5 mg PO TID PRN PRN Reason: Anxiety Last Admin: 01/12/23 22:14 Dose: 0.5 mg Clonidine HCl (Clonidine Hcl 0.1 Mg Tablet) 0.1 mg PO BID@1400,2100 [facility]; Protocol Last Admin: 01/13/23 21:27 Dose: 0.1 mg Diphenhydramine HCl (Diphenhydramine Hcl 25 Mg Capsule) 50 mg PO BEDTIME [facility] Last Admin: 01/13/23 21:27 Dose: 50 mg Divalproex Sodium (Divalproex Sodium Sprinkles 125 Mg ) 1,250 mg PO BID [facility] Last Admin: 01/14/23 08:21 Dose: 1,250 mg Famotidine (Famotidine 20 Mg Tablet) 20 mg PO BEDTIME [facility] Last Admin: 01/13/23 21:28 Dose: 20 mg Famotidine (Famotidine 20 Mg Tablet) 20 mg PO DAILY PRN PRN Reason: GERD Fluoxetine HCl (Fluoxetine Hcl 20 Mg Capsule) 60 mg PO DAILY [facility] Last Admin: 01/14/23 08:21 Dose: 60 mg Furosemide (Furosemide 20 Mg Tablet) 20 mg PO BID@0900,1700 [facility]; Protocol Last Admin: 01/14/23 08:21 Dose: 20 mg Loratadine (Loratadine 10 Mg Tablet) 10 mg PO DAILY PRN PRN Reason: congestion Magnesium Hydroxide (Milk Of Magnesia 30 Ml Oral.Susp) 30 ml PO DAILY PRN PRN Reason: Constipation Last Admin: 01/11/23 21:26 Dose: 30 ml Melatonin (Melatonin 3 Mg Tablet) 3 mg PO BEDTIME PRN PRN Reason: insomnia Last Admin: 01/12/23 22:14 Dose: 3 mg Multivitamins/Vitamin C (Multivitamin Tablet) 1 tab PO BEDTIME [facility] Last Admin: 01/13/23 21:28 Dose: 1 tab Naproxen (Naproxen 500 Mg Tablet) 500 mg PO Q12H PRN PRN Reason: mild pain Last Admin: 01/12/23 21:46 Dose: 500 mg Olanzapine (Olanzapine 10 Mg Tablet) 20 mg PO BEDTIME [facility] Last Admin: 01/13/23 21:28 Dose: 20 mg Olanzapine (Olanzapine Odt 10 Mg Tab.Rapdis) 10 mg TRANSLINGU DAILY PRN PRN Reason: Psychosis Senna/Docusate Sodium (Sennosides/Docusate Sodium Tablet) 1 tab PO BID [facility] Last Admin: 01/14/23 08:21 Dose: 1 tab Trazodone HCl (Trazodone Hcl 50 Mg Tablet) 50 mg PO BEDTIME PRN PRN Reason: insomnia Last Admin: 01/10/23 22:34 Dose: 50 mg Trazodone HCl (Trazodone Hcl 100 Mg Tablet) 100 mg PO BEDTIME [facility] Last Admin: 01/13/23 21:28 Dose: 100 mg Ziprasidone (Ziprasidone 20 Mg Capsule) 20 mg PO BID PRN PRN Reason: Agitation Last Admin: 01/11/23 21:16 Dose: 20 mg Allergies Allergies Allergy/AdvReac Type Severity Reaction Status Date / Time chlorpromazine Allergy Anaphylaxis Verified 12/27/22 16:37 [From Thorazine] nut - unspecified Allergy Anxiety Verified 12/27/22 16:37 haloperidol [From Haldol] AdvReac Agitated Verified 12/27/22 16:37 lithium AdvReac Hives Verified 12/27/22 16:37 Assessment & Plan Assessment & Plan (1) Autism: Status: Suspected Code(s): F84.0 - Autistic disorder (2) PTSD (post-traumatic stress disorder): Status: Suspected Code(s): F43.10 - Post-traumatic stress disorder, unspecified (3) Intermittent explosive disorder: Status: Acute Code(s): F63.81 - Intermittent explosive disorder (4) CHARLES positive: Status: Acute Code(s): R76.8 - Other specified abnormal immunological findings in serum (5) Chronic restrictive lung disease: Status: Acute Code(s): J98.4 - Other disorders of lung (6) Peripheral edema: Status: Acute Code(s): R60.9 - Edema, unspecified (7) Amenorrhea: Status: Acute Code(s): N91.2 - Amenorrhea, unspecified Plan HPI: Patient is a bright, kind 22-year-old female, well known to this service, with history of Autism, PTSD recently discharged from on 12/25/2022 (and recently dc'd from [facility] after 5 years) who re-presents 2 days later for resurgence of suicidal ideation, dissociative episode and having run out during therapy session, into the street trying to hit by traffic and then eloping again from crisis again trying to get hit by oncoming cars. This has happened after ever discharge since coming to [facility]. Patient reports that day she left she had the intrusive thought that I am gonna screw this up again which just built and built until it overwhelmed her. Patient says she tried very hard to resist self-harm but the constant intrusive thought was unrelenting. She reports that on the way into the therapist building she got triggered as setting and some other people around [facility]; already being on edge, this launched her into a full-blown panic attack; she dissociated and ran into the street wanting to . Patient says she just cannot seem to control. She also worries that she is unsafe living at her grandmother's, whom she loves dearly, because her grandmother is not able to sense when patient is starting to unravel and cannot preemptively help ground her and prevent dysregulated/dissociate of episode; patient says that sometimes she is able to alert her grandmother that she is headed this direction but many time she is not. Patient says she needs to live in a place with staff who were trained who can help divert her from such episodes. Passive SI remains but none active. Patient does not want to and wants to continue with treatment therapy. It is unclear if patient meets full criteria for OCD diagnosis however she has OCD like symptoms and will thus increase Prozac which has thus far been well tolerated. Hospital course: 12/30 stabilizing; continue current treatment plan 12/31 patient continues to stabilize; no change in medications at this time however will likely seek to reduce possibly Depakote her Zyprexa level; may increase Prozac for PTSD/OCD like symptoms 01/01 stabilizing 01/02 tough night, needing geodon prns; asked to change depakote to sprinkles and maybe lower dose since tired in daytime and pt may be stable at lower dose 01/03 will add short trial of Lasix 20mg BID for continued lower limb edema (Jamal stockings tried and ripped) 01/06/23- Continue current plan and regime 01/07 continue current treatment plan for now 01/09 patient is significantly more depressed, hopeless and wishing she were . Situational stressors are significantly contributory including limited options for disposition and stressors on the unit; however patient is also reflecting on her life, her chronic symptoms and long history of living in institutions, creating a hopelessness that her things will get better. It is possible that changing Depakote formulation to DR could be contributory, however theoretically it is the same total daily dose. -patient has been in an institution more time the not since 6 years old and has spent the last 5 years in a [facility]; it was likely an unreasonable expectation that she would be able to immediately discharge and be successful in community. Rather acclimation will be a gradual process. At this time will increase Prozac to 60 mg to see if this can help. Currently patient is depressed and suicidal and in imminent risk of harm to self if discharged. 01/07 for patient a little bit improved, depression a little lower possibly due to increased Prozac 01/12/23 Continue current plan. 01/13/23 Continue current plan. 01/14 patient remains depressed but less so and she denies SI bilateral lower limb edema has decreased since getting her menses. Discussed disposition plans with social media senior associate and reviewed possible options and concerns from both [facility] and [facility]; currently recommendation from [facility]DS is for patient to undergo evaluation by Dr. Caputo; team agrees it will help to organize a joint meeting with both DDS in [facility] to clarify and discussed situation and options. PLAN: *Started Lasix 20mg BID on 01/03 for b/l lower limb edema Bilateral lower limbs with minimal improvement; right hand more swollen than left 1. ASD/PTSD/intermittent explosive disorder: CHANGED to Depakote sprinkles DR 1200mg bId (roughly equiv to Depakote ER 2500 mg q.h.s ...) Continue Zyprexa 20 mg q.h.s. (may very well tolerate lower dose as overseen by outpatient provider) Increased Prozac to 60mg (increased during this admission) Continue Xanax 0.5 mg t.i.d. p.r.n. for agitation; may give alone or with Geodon Continue Geodon 20 mg b.i.d. p.r.n. for agitation (*pt may get IM Geodon if requested for faster action) Continue Clonidine 0.1 mg t.i.d. Continue Trazodone 100 mg q.h.s. DC'd zyprexa 5mg in afternoon DC'd perphenazine (patient has no history of psychotic illness and very likely does not need this medication) Chronic conditions: 2. CHARLES positive appointment made with Rheumatology February 20 -daytime fatigue; b/l peripheral edema; mild dyspnea on exertion Discussed with Dr. Hamilton who recommends and following labs ordered: -Urine protein creatinine ratio -Rheumatoid factor -CCP antibody 3. Bilateral peripheral edema (lower/upper extrem):? Medication side effect (Zyprexa/Depakote)?? vs organic origin some reduction w/ lowering of medications Zyprexa and depakote r/u autoimune 4. Complaint of chronic struggles with inspiration: lungs CTA; CXR unremarkable Pulmonary function test: results reviewed, discussed with Dr. Melchor -elevated CHARLES and abnromal PFTs with a mild restriction with a mild diffusion impairment. -could be explained by her elevated BMI. -at this time dr. Melchor reports given lab work, at this time it does not look like she has lupus nor sjogrens nor scleroderma. Her cxr was good. needs a sleep study as an out pt (daytime drowsiness bringing up the possibility of obstructive sleep apnea) does not need an inpt ct scan but should f/up with outpt pulmonary and rheumatology. -in further discussion, Dr. Melchor agrees that CHARLES needs further evaluation, 5. Amenorrhea: Patient did get her menses on 01/11 Patient did have menses a few years ago while on control; has not had it since control discontinued about 2 years ago Labs: mostly WNL; will f/u with PCP/pound attendant PSYCHIATRIC IMPRESSION/DIAGNOSIS:. Impression: Patient is a fun, intelligent, cooperative and friendly person. When she gets triggered by something she can decompensate severely, dissociate and become physically aggressive.? Patient is now diagnosed with ASD, PTSD, and intermittent explosive disorder.? From [facility], she carried the diagnosis of Schizoaffective disorder and mention of borderline personality disorder.? Both of these have been ruled out.? Patient has no present psychotic symptoms, denies any history of AVH or delusional thinking, and has no reported history anywhere that can be found of any psychotic symptoms (history includes press writer having gone through numerous pages of notes from [facility] and other institutions).? She is linear, logical, articulate, insightful and organized in her thinking; she is organized in her behaviors.? Patient can have intrusive thoughts but only when triggered and this does not seem to be OCD.? She can have some rigid thinking in line with ASD.? Many of her dysregulated moments come from her PTSD being exacerbated.? Patient has well tolerated decrease of Zyprexa, decrease of Depakote and discontinuation of perphenazine. Primary dx: ASD. Patient's father and grandmother maintain that she met her milestones in childhood. 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 During childhood she attended [facility] in [place], treatment center typically for people with autism; in [place] when at [facility], she carried a dx of ASD.? As observed on the unit, Patient frequently rocks back and forth, when standing or sitting, while talking to others or calming herself down.? Patient does not have a sense of a person's personal space and will get much to close to a person when talking; she is redirectable and apologizes but she is unaware she is doing it and does not get verbal cues when conversation participant is backing away or trying to end a conversation; though redirectable, she will again get too close, again unaware.? In the milieu with peers, While she will sometimes spend time in the vicinity of others, she is mostly alongside people and not directly interacting with them.? That said, she will directly interact with staff. Patient does make eye contact, however she stares the entire time she is engaged. ? She can have a logical conversation, however she is concrete Patient has a blunted affect and though she can smile and laugh, she is otherwise expressionless with blunted affect. Patient has in flexibility regarding food when it is not as expected patient can get severely dysregulated Patient has some hypo-reactivity to loud noises and crowds of people. Conversely, She does get jokes, even subtle ones. Symptoms have clearly made life functioning extremely difficult.? It is unclear if patient has had neuropsych testing. She did spend time at [facility]. Regarding PTSD: Patient has a history of trauma from both childhood experiences, as well as trauma that occurred while on inpatient unit at [facility] and [place].? She has also been institutionalized since a young age, away from her mother and father, feeling abandoned.? She can have several regressed behaviors and some child-like interests. Regarding Dissociative Disorder:? Patient has episodes of depersonalization and derealization which the typically arise when triggered and during which time she will feel detached from herself, from her body and feel as if things are unreal and dream like, with out a sense of time; after they conclude and she is again in the present, she can be upset about some behaviors she engaged in during the dissociate period once made aware. Not BPD: Regarding past references to borderline personality disorder, Keg Inspector and team agree there have been no axis II traits expressed throughout her time in the hospital; none could be cleaned from records No psychotic illness: no psychotic symptoms past or present Patient educated on: diagnosis, medication risk/benefits and medical condition Informed Consent: understands Reason for contiued inpatient stay Substantial Risk for: inability to function Time Spent With Patient Time: Total time managing care of this patient today ____ minutes.
[2023-01-14 16:45] VITALS: BP 124/65; PULSE 94; TEMP 35.7
[2023-01-14] MEDS: ALPRAZolam 0.5 MG TABLET PO (16:49)
[2023-01-14] MEDS: Ziprasidone 20 MG CAPSULE PO (16:49)
[2023-01-14 22:40] VITALS: BP 116/79; PULSE 78; TEMP 35.8
[2023-01-14] MEDS: diphenhydrAMINE HCL 25 MG CAPSULE 50 MG PO (22:43)
[2023-01-14] MEDS: OLANZapine 10 MG TABLET 20 MG PO (22:44)
[2023-01-14] MEDS: Multivitamin TABLET 1 TAB PO (22:45)
[2023-01-14] MEDS: cloNIDine HCL 0.1 MG TABLET PO (22:45)
[2023-01-14] MEDS: Famotidine 20 MG TABLET PO (22:45)
[2023-01-14] MEDS: traZODone HCL 100 MG TABLET PO (22:46)
[2023-01-15 01:15] VITALS: BP 101/57; PULSE 84; RESP 16; TEMP 36.3; O2SAT 98
[2023-01-15] MEDS: Sennosides/Docusate Sodium TABLET 1 TAB PO ×2 (10:41→22:52)
[2023-01-15] MEDS: FLUoxetine HCl 20 MG CAPSULE 60 MG PO (10:41)
[2023-01-15] MEDS: Divalproex Sodium Sprinkles 125 MG CAP.DR.SPR 1250 MG PO ×2 (10:43→22:54)
[2023-01-15] MEDS: cloNIDine HCL 0.1 MG TABLET PO ×2 (13:17→22:53)
[2023-01-15] MEDS: Furosemide 20 MG TABLET PO (13:24)
[2023-01-15] MEDS: NaPROXEN 500 MG TABLET PO (15:47)
--- NOTE | 2023-01-15 16:08 | P.PNPSI_ITS ---
Subjective Subjective Date of Service: 01/15/23 Reason For Visit: Mood Dysregulation Interim History: Met with patient; discussed with team Patient reports still depressed but a little better; no SI. Still very tired in the morning. Patient showed card writer hand tremor in her hands. She says that it will start and stop at different times but it is worse today. Mental Status Exam Mental Status Exam Narrative: Pt is alert and oriented; behavior is cooperative, calm; dressed in casual attire, mood is described as depressed and affect congruent, downcast but a little less so; eye contact appropriate; Speech is regular rate, volume, prosody; some psychomotor retardation present; thought process is organized and goal directed; Thought content is on trying not to feel hopeless, past trauma, treatment; otherwise pertinent to relevant topics and without any delusional content, paranoid ideations or grandiosity; no SI; no HI. No AVH and there is no evidence of perceptual disturbance.. Patients insight and judgment are impaired but improving. Diagnostics Vital Signs (24Hr): Vital Signs - 24 hr 01/14/23 16:45 01/14/23 22:40 01/15/23 01:15 Temperature 96.2 F L 96.4 F L 97.4 F Pulse Rate 94 78 84 Respiratory Rate 16 Blood Pressure 124/65 116/79 101/57 L Pulse Oximetry 98 Oxygen Delivery Method Room Air BMI result Body Mass Index 38.1 Labs 12/27/22 20:00 12/27/22 19:59 Medications Medications Current Medications Acetaminophen (Acetaminophen 325 Mg Tablet) 650 mg PO Q6H PRN PRN Reason: Headache/Pain Mild Scale (1-3) Al Hydroxide/Mg Hydroxide (Magnesium Hydrox/Alum Hydrox 30 Ml Oral.Susp) 30 ml PO Q6H PRN PRN Reason: Heartburn/Nausea Last Admin: 12/31/22 08:29 Dose: 30 ml Alprazolam (Alprazolam 0.5 Mg Tablet) 0.5 mg PO TID PRN PRN Reason: Anxiety Last Admin: 01/14/23 16:49 Dose: 0.5 mg Clonidine HCl (Clonidine Hcl 0.1 Mg Tablet) 0.1 mg PO BID@1400,2100 [facility]SC[facility]; Protocol Last Admin: 01/15/23 13:17 Dose: 0.1 mg Diphenhydramine HCl (Diphenhydramine Hcl 25 Mg Capsule) 50 mg PO BEDTIME OSCAR Last Admin: 01/14/23 22:43 Dose: 50 mg Divalproex Sodium (Divalproex Sodium Sprinkles 125 Mg ) 1,250 mg PO BID [facility] Last Admin: 01/15/23 10:43 Dose: 1,250 mg Famotidine (Famotidine 20 Mg Tablet) 20 mg PO BEDTIME [facility] Last Admin: 01/14/23 22:45 Dose: 20 mg Famotidine (Famotidine 20 Mg Tablet) 20 mg PO DAILY PRN PRN Reason: GERD Fluoxetine HCl (Fluoxetine Hcl 20 Mg Capsule) 60 mg PO DAILY [facility] Last Admin: 01/15/23 10:41 Dose: 60 mg Furosemide (Furosemide 20 Mg Tablet) 20 mg PO BID@0900,1700 [facility]; Protocol Last Admin: 01/15/23 13:24 Dose: 20 mg Loratadine (Loratadine 10 Mg Tablet) 10 mg PO DAILY PRN PRN Reason: congestion Magnesium Hydroxide (Milk Of Magnesia 30 Ml Oral.Susp) 30 ml PO DAILY PRN PRN Reason: Constipation Last Admin: 01/11/23 21:26 Dose: 30 ml Melatonin (Melatonin 3 Mg Tablet) 3 mg PO BEDTIME PRN PRN Reason: insomnia Last Admin: 01/12/23 22:14 Dose: 3 mg Multivitamins/Vitamin C (Multivitamin Tablet) 1 tab PO BEDTIME [facility] Last Admin: 01/14/23 22:45 Dose: 1 tab Naproxen (Naproxen 500 Mg Tablet) 500 mg PO Q12H PRN PRN Reason: mild pain Last Admin: 01/15/23 15:47 Dose: 500 mg Olanzapine (Olanzapine 10 Mg Tablet) 20 mg PO BEDTIME [facility] Last Admin: 01/14/23 22:44 Dose: 20 mg Senna/Docusate Sodium (Sennosides/Docusate Sodium Tablet) 1 tab PO BID [facility] Last Admin: 01/15/23 10:41 Dose: 1 tab Trazodone HCl (Trazodone Hcl 50 Mg Tablet) 50 mg PO BEDTIME PRN PRN Reason: insomnia Last Admin: 01/10/23 22:34 Dose: 50 mg Trazodone HCl (Trazodone Hcl 100 Mg Tablet) 100 mg PO BEDTIME [facility] Last Admin: 01/14/23 22:46 Dose: 100 mg Ziprasidone (Ziprasidone 20 Mg Capsule) 20 mg PO BID PRN PRN Reason: Agitation Last Admin: 01/14/23 16:49 Dose: 20 mg Allergies Allergies Allergy/AdvReac Type Severity Reaction Status Date / Time chlorpromazine Allergy Anaphylaxis Verified 12/27/22 16:37 [From Thorazine] nut - unspecified Allergy Anxiety Verified 12/27/22 16:37 haloperidol [From Haldol] AdvReac Agitated Verified 12/27/22 16:37 lithium AdvReac Hives Verified 12/27/22 16:37 Assessment & Plan Assessment & Plan (1) Autism: Status: Suspected Code(s): F84.0 - Autistic disorder (2) PTSD (post-traumatic stress disorder): Status: Suspected Code(s): F43.10 - Post-traumatic stress disorder, unspecified (3) Intermittent explosive disorder: Status: Acute Code(s): F63.81 - Intermittent explosive disorder (4) CHARLES positive: Status: Acute Code(s): R76.8 - Other specified abnormal immunological findings in serum (5) Chronic restrictive lung disease: Status: Acute Code(s): J98.4 - Other disorders of lung (6) Peripheral edema: Status: Acute Code(s): R60.9 - Edema, unspecified (7) Amenorrhea: Status: Acute Code(s): N91.2 - Amenorrhea, unspecified Plan HPI: Patient is a bright, kind 22-year-old female, well known to this service, with history of Autism, PTSD recently discharged from on 12/25/2022 (and recently d c'd from [facility] after 5 years) who re-presents 2 days later for resurgence of suicidal ideation, dissociative episode and having run out during therapy session, into the street trying to hit by traffic and then eloping again from crisis again trying to get hit by oncoming cars. This has happened after ever discharge since coming to [facility]. Patient reports that day she left she had the intrusive thought that I am gonna screw this up again which just built and built until it overwhelmed her. Patient says she tried very hard to resist self-harm but the constant intrusive thought was unrelenting. She reports that on the way into the therapist building she got triggered as setting and some other people around reminded her of [facility]; already being on edge, this launched her into a full-blown panic attack; she dissociated and ran into the street wanting to . Patient says she just cannot seem to control. She also worries that she is unsafe living at her grandmother's, whom she loves dearly, because her grandmother is not able to sense when patient is starting to unravel and cannot preemptively help ground her and prevent dysregulated/dissociate of episode; patient says that sometimes she is able to alert her grandmother that she is headed this direction but many time she is not. Patient says she needs to live in a place with staff who were trained who can help divert her from such episodes. Passive SI remains but none active. Patient does not want to and wants to continue with treatment therapy. It is unclear if patient meets full criteria for OCD diagnosis however she has OCD like symptoms and will thus increase Prozac which has thus far been well tolerated. Hospital course: 12/30 stabilizing; continue current treatment plan 12/31 patient continues to stabilize; no change in medications at this time however will likely seek to reduce possibly Depakote her Zyprexa level; may increase Prozac for PTSD/OCD like symptoms 01/01 stabilizing 01/02 tough night, needing geodon prns; asked to change depakote to sprinkles and maybe lower dose since tired in daytime and pt may be stable at lower dose 01/03 will add short trial of Lasix 20mg BID for continued lower limb edema (Jamal stockings tried and ripped) 01/06/23- Continue current plan and regime 01/07 continue current treatment plan for now 01/09 patient is significantly more depressed, hopeless and wishing she were . Situational stressors are significantly contributory including limited options for disposition and stressors on the unit; however patient is also reflecting on her life, her chronic symptoms and long history of living in institutions, creating a hopelessness that her things will get better. It is possible that changing Depakote formulation to DR could be contributory, however theoretically it is the same total daily dose. -patient has been in an institution more time the not since 6 years old and has spent the last 5 years in a [facility]; it was likely an unreasonable expectation that she would be able to immediately discharge and be successful in community. Rather acclimation will be a gradual process. At this time will increase Prozac to 60 mg to see if this can help. Currently patient is depressed and suicidal and in imminent risk of harm to self if discharged. 01/07 for patient a little bit improved, depression a little lower possibly due to increased Prozac 01/12/23 Continue current plan. 01/13/23 Continue current plan. 01/14 patient remains depressed but less so and she denies SI bilateral lower limb edema has decreased since getting her menses. Discussed disposition plans with school social worker and reviewed possible options and concerns from both DDS and DM; currently recommendation from DDS is for patient to undergo evaluation by Dr. Caputo; team agrees it will help to organize a joint meeting with both DDS in [facility] to clarify and discussed situation and options. 01/15 bilateral hand tremor; patient reports it is chronic and comes and goes but a little worse today PLAN: *Started Lasix 20mg BID on 01/03 for b/l lower limb edema Bilateral lower limbs with minimal improvement; right hand more swollen than left 1. ASD/PTSD/intermittent explosive disorder: CHANGED to Depakote sprinkles DR 1200mg bId (roughly equiv to Depakote ER 2500 mg q.h.s ...) Continue Zyprexa 20 mg q.h.s. (may very well tolerate lower dose as overseen by outpatient provider) Increased Prozac to 60mg (increased during this admission) Continue Xanax 0.5 mg t.i.d. p.r.n. for agitation; may give alone or with Geodon Continue Geodon 20 mg b.i.d. p.r.n. for agitation (*pt may get IM Geodon if requested for faster action) Continue Clonidine 0.1 mg t.i.d. Continue Trazodone 100 mg q.h.s. DC'd zyprexa 5mg in afternoon DC'd perphenazine (patient has no history of psychotic illness and very likely does not need this medication) Chronic conditions: 2. CHARLES positive appointment made with Rheumatology February 20 -daytime fatigue; b/l peripheral edema; mild dyspnea on exertion Discussed with Dr. Hamilton who recommends and following labs ordered: -Urine protein creatinine ratio -Rheumatoid factor -CCP antibody 3. Bilateral peripheral edema (lower/upper extrem):? Medication side effect (Zyprexa/Depakote)?? vs organic origin some reduction w/ lowering of medications Zyprexa and depakote r/u autoimune 4. Complaint of chronic struggles with inspiration: lungs CTA; CXR unremarkable Pulmonary function test: results reviewed, discussed with Dr. Melchor -elevated CHARLES and abnromal PFTs with a mild restriction with a mild diffusion impairment. -could be explained by her elevated BMI. -at this time dr. Melchor reports given lab work, at this time it does not look like she has lupus nor sjogrens nor scleroderma. Her cxr was good. needs a sleep study as an out pt (daytime drowsiness bringing up the possibility of obstructive sleep apnea) does not need an inpt ct scan but should f/up with outpt pulmonary and rheumatology. -in further discussion, Dr. Melchor agrees that CHARLES needs further evaluation, 5. 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 Impression: Patient is a fun, intelligent, cooperative and friendly person. When she gets triggered by something she can decompensate severely, dissociate and become physically aggressive.? Patient is now diagnosed with ASD, PTSD, and intermittent explosive disorder.? From [facility], she carried the diagnosis of Schizoaffective disorder and mention of borderline personality disorder.? Both of these have been ruled out.? Patient has no present psychotic symptoms, denies any history of AVH or delusional thinking, and has no reported history anywhere that can be found of any psychotic symptoms (history includes card writer hand having gone through numerous pages of notes from [facility] and other institutions).? She is linear, logical, articulate, insightful and organized in her thinking; she is organized in her behaviors.? Patient can have intrusive thoughts but only when triggered and this does not seem to be OCD.? She can have some rigid thinking in line with ASD.? Many of her dysregulated moments come from her PTSD being exacerbated.? Patient has well tolerated de crease of Zyprexa, decrease of Depakote and discontinuation of perphenazine. Primary dx: ASD. Patient's father and grandmother maintain that she met her milestones in childhood. 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 During childhood she attended [facility] [place] in [place], treatment center typically for people with autism; in [place] when at [facility], she carried a dx of ASD.? As observed on the unit, Patient frequently rocks back and forth, when standing or sitting, while talking to others or calming herself down.? Patient does not have a sense of a person's personal space and will get much to close to a person when talking; she is redirectable and apologizes but she is unaware she is doing it and does not get verbal cues when conversation participant is backing away or trying to end a conversation; though redirectable, she will again get too close, again unaware.? In the milieu with peers, While she will sometimes spend time in the vicinity of others, she is mostly alongside people and not directly interacting with them.? That said, she will directly interact with staff. Patient does make eye contact, however she stares the entire time she is engaged. ? She can have a logical conversation, however she is concrete Patient has a blunted affect and though she can smile and laugh, she is otherwise expressionless with blunted affect. Patient has in flexibility regarding food when it is not as expected patient can get severely dysregulated Patient has some hypo-reactivity to loud noises and crowds of people. Conversely, She does get jokes, even subtle ones. Symptoms have clearly made life functioning extremely difficult.? It is unclear if patient has had neuropsych testing. She did spend time at [facility]. Regarding PTSD: Patient has a history of trauma from both childhood experiences, as well as trauma that occurred while on inpatient unit at [facility] and [place].? She has also been institutionalized since a young age, away from her mother and father, feeling abandoned.? She can have several regressed behaviors and some child-like interests. Regarding Dissociative Disorder:? Patient has episodes of depersonalization and derealization which the typically arise when triggered and during which time she will feel detached from herself, from her body and feel as if things are unreal and dream like, with out a sense of time; after they conclude and she is again in the present, she can be upset about some behaviors she engaged in during the dissociate period once made aware. Not BPD: Regarding past references to borderline personality disorder, Sliding Joint Maker and team agree there have been no axis II traits expressed throughout her time in the hospital; none could be cleaned from records No psychotic illness: no psychotic symptoms past or present Patient educated on: diagnosis and medication risk/benefits Informed Consent: understands Reason for contiued inpatient stay Substantial Risk for: inability to function Time Spent With Patient Time: Total time managing care of this patient today ____ minutes.
[2023-01-15 22:50] VITALS: BP 115/65; PULSE 85; TEMP 36.1
[2023-01-15] MEDS: traZODone HCL 100 MG TABLET PO (22:52)
[2023-01-15] MEDS: diphenhydrAMINE HCL 25 MG CAPSULE 50 MG PO (22:52)
[2023-01-15] MEDS: Famotidine 20 MG TABLET PO (22:54)
[2023-01-15] MEDS: OLANZapine 10 MG TABLET 20 MG PO (22:54)
[2023-01-15] MEDS: Multivitamin TABLET 1 TAB PO (22:54)
[2023-01-16 09:25] VITALS: BP 93/51; PULSE 69; RESP 16; TEMP 36.7; O2SAT 96
[2023-01-16] MEDS: Divalproex Sodium Sprinkles 125 MG CAP.DR.SPR 1250 MG PO ×2 (09:29→21:36)
[2023-01-16] MEDS: Sennosides/Docusate Sodium TABLET 1 TAB PO ×2 (09:30→21:37)
[2023-01-16] MEDS: Furosemide 20 MG TABLET PO ×2 (09:30→18:16)
[2023-01-16] MEDS: FLUoxetine HCl 20 MG CAPSULE 60 MG PO (09:30)
--- NOTE | 2023-01-16 09:57 | HO.PSYCHPN ---
Subjective Subjective Date of Service: 01/16/23 Reason For Visit: Mood Dysregulation Interim History: Met with patient ; discussed with team Remains depressed but overall a little more hopeful. Discussed hris specialist who may be available to me within assess patient to which patient was amenable Mental Status Exam Mental Status Exam Narrative: Pt is alert and oriented; behavior is cooperative, calm; dressed in casual attire, mood is described as depressed and affect congruent, downcast but a little less so; eye contact appropriate; Speech is regular rate, volume, prosody; some psychomotor retardation present; thought process is organized and goal directed; Thought content is on trying not to feel hopeless, past trauma, treatment; otherwise pertinent to relevant topics and without any delusional content, paranoid ideations or grandiosity; no SI; no HI. No AVH and there is no evidence of perceptual disturbance.. Patients insight and judgment are impaired but improving. Diagnostics Vital Signs (24Hr): Vital Signs - 24 hr 01/15/23 22:50 01/16/23 09:25 Temperature 96.9 F 98.1 F Pulse Rate 85 69 Respiratory Rate 16 Blood Pressure 115/65 93/51 L Pulse Oximetry 96 Oxygen Delivery Method Room Air BMI result Body Mass Index 38.1 Labs 12/27/22 20:00 12/27/22 19:59 Medications Medications Current Medications Acetaminophen (Acetaminophen 325 Mg Tablet) 650 mg PO Q6H PRN PRN Reason: Headache/Pain Mild Scale (1-3) Al Hydroxide/Mg Hydroxide (Magnesium Hydrox/Alum Hydrox 30 Ml Oral.Susp) 30 ml PO Q6H PRN PRN Reason: Heartburn/Nausea Last Admin: 12/31/22 08:29 Dose: 30 ml Alprazolam (Alprazolam 0.5 Mg Tablet) 0.5 mg PO TID PRN PRN Reason: Anxiety Last Admin: 01/14/23 16:49 Dose: 0.5 mg Clonidine HCl (Clonidine Hcl 0.1 Mg Tablet) 0.1 mg PO BID@1400,2100 [facility]; Protocol Last Admin: 01/15/23 22:53 Dose: 0.1 mg Diphenhydramine HCl (Diphenhydramine Hcl 25 Mg Capsule) 50 mg PO BEDTIME [facility] Last Admin: 01/15/23 22:52 Dose: 50 mg Divalproex Sodium (Divalproex Sodium Sprinkles 125 Mg ) 1,250 mg PO BID [facility] Last Admin: 01/16/23 09:29 Dose: 1,250 mg Famotidine (Famotidine 20 Mg Tablet) 20 mg PO BEDTIME [facility] Last Admin: 01/15/23 22:54 Dose: 20 mg Famotidine (Famotidine 20 Mg Tablet) 20 mg PO DAILY PRN PRN Reason: GERD Fluoxetine HCl (Fluoxetine Hcl 20 Mg Capsule) 60 mg PO DAILY [facility] Last Admin: 01/16/23 09:30 Dose: 60 mg Furosemide (Furosemide 20 Mg Tablet) 20 mg PO BID@0900,1700 [facility]; Protocol Last Admin: 01/16/23 09:30 Dose: 20 mg Loratadine (Loratadine 10 Mg Tablet) 10 mg PO DAILY PRN PRN Reason: congestion Magnesium Hydroxide (Milk Of Magnesia 30 Ml Oral.Susp) 30 ml PO DAILY PRN PRN Reason: Constipation Last Admin: 01/11/23 21:26 Dose: 30 ml Melatonin (Melatonin 3 Mg Tablet) 3 mg PO BEDTIME PRN PRN Reason: insomnia Last Admin: 01/12/23 22:14 Dose: 3 mg Multivitamins/Vitamin C (Multivitamin Tablet) 1 tab PO BEDTIME [facility] Last Admin: 01/15/23 22:54 Dose: 1 tab Naproxen (Naproxen 500 Mg Tablet) 500 mg PO Q12H PRN PRN Reason: mild pain Last Admin: 01/15/23 15:47 Dose: 500 mg Olanzapine (Olanzapine 10 Mg Tablet) 20 mg PO BEDTIME [facility] Last Admin: 01/15/23 22:54 Dose: 20 mg Senna/Docusate Sodium (Sennosides/Docusate Sodium Tablet) 1 tab PO BID [facility] Last Admin: 01/16/23 09:30 Dose: 1 tab Trazodone HCl (Trazodone Hcl 50 Mg Tablet) 50 mg PO BEDTIME PRN PRN Reason: insomnia Last Admin: 01/10/23 22:34 Dose: 50 mg Trazodone HCl (Trazodone Hcl 100 Mg Tablet) 100 mg PO BEDTIME [facility] Last Admin: 01/15/23 22:52 Dose: 100 mg Ziprasidone (Ziprasidone 20 Mg Capsule) 20 mg PO BID PRN PRN Reason: Agitation Last Admin: 01/14/23 16:49 Dose: 20 mg Allergies Allergies Allergy/AdvReac Type Severity Reaction Status Date / Time chlorpromazine Allergy Anaphylaxis Verified 12/27/22 16:37 [From Thorazine] nut - unspecified Allergy Anxiety Verified 12/27/22 16:37 haloperidol [From Haldol] AdvReac Agitated Verified 12/27/22 16:37 lithium AdvReac Hives Verified 12/27/22 16:37 Assessment & Plan Assessment & Plan (1) Autism: Status: Suspected Code(s): F84.0 - Autistic disorder (2) PTSD (post-traumatic stress disorder): Status: Suspected Code(s): F43.10 - Post-traumatic stress disorder, unspecified (3) Intermittent explosive disorder: Status: Acute Code(s): F63.81 - Intermittent explosive disorder (4) CHARLES positive: Status: Acute Code(s): R76.8 - Other specified abnormal immunological findings in serum (5) Chronic restrictive lung disease: Status: Acute Code(s): J98.4 - Other disorders of lung (6) Peripheral edema: Status: Acute Code(s): R60.9 - Edema, unspecified (7) Amenorrhea: Status: Acute Code(s): N91.2 - Amenorrhea, unspecified Plan HPI: Patient is a bright, kind 22-year-old female, well known to this service, with history of Autism, PTSD recently discharged from on 12/25/2022 (and recently dc'd from [facility] after 5 years) who re-presents 2 days later for resurgence of suicidal ideation, dissociative episode and having run out during therapy session, into the street trying to hit by traffic and then eloping again from crisis again trying to get hit by oncoming cars. This has happened after ever discharge since coming to [facility]. Patient reports that day she left she had the intrusive thought that I am gonna screw this up again which just built and built until it overwhelmed her. Patient says she tried very hard to resist self-harm but the constant intrusive thought was unrelenting. She reports that on the way into the therapist building she got triggered as setting and some other people around reminded her of [facility]; already being on edge, this launched her into a full-blown panic attack; she dissociated and ran into the street wanting to . Patient says she just cannot seem to control. She also worries that she is unsafe living at her grandmother's, whom she loves dearly, because her grandmother is not able to sense when patient is starting to unravel and cannot preemptively help ground her and prevent dysregulated/dissociate of episode; patient says that sometimes she is able to alert her grandmother that she is headed this direction but many time she is not. Patient says she needs to live in a place with staff who were trained who can help divert her from such episodes. Passive SI remains but none active. Patient does not want to and wants to continue with treatment therapy. It is unclear if patient meets full criteria for OCD diagnosis however she has OCD like symptoms and will thus increase Prozac which has thus far been well tolerated. Hospital course: 12/30 stabilizing; continue current treatment plan 12/31 patient continues to stabilize; no change in medications at this time however will likely seek to reduce possibly Depakote her Zyprexa level; may increase Prozac for PTSD/OCD like symptoms 01/01 stabilizing 01/02 tough night, needing geodon prns; asked to change depakote to sprinkles and maybe lower dose since tired in daytime and pt may be stable at lower dose 01/03 will add short trial of Lasix 20mg BID for continued lower limb edema (Jamal stockings tried and ripped) 01/06/23- Continue current plan and regime 01/07 continue current treatment plan for now 01/09 patient is significantly more depressed, hopeless and wishing she were . Situational stressors are significantly contributory including limited options for disposition and stressors on the unit; however patient is also reflecting on her life, her chronic symptoms and long history of living in institutions, creating a hopelessness that her things will get better. It is possible that changing Depakote formulation to DR could be contributory, however theoretically it is the same total daily dose. -patient has been in an institution more time the not since 6 years old and has spent the last 5 years in a [facility]; it was likely an unreasonable expectation that she would be able to immediately discharge and be successful in community. Rather acclimation will be a gradual process. At this time will increase Prozac to 60 mg to see if this can help. Currently patient is depressed and suicidal and in imminent risk of harm to self if discharged. 01/07 for patient a little bit improved, depression a little lower possibly due to increased Prozac 01/12/23 Continue current plan. 01/13/23 Continue current plan. 01/14 patient remains depressed but less so and she denies SI bilateral lower limb edema has decreased since getting her menses. Discussed disposition plans with oncology social worker and reviewed possible options and concerns from both DDS and DM; currently recommendation from DDS is for patient to undergo evaluation by Dr. Caputo; team agrees it will help to organize a joint meeting with both DDS in [facility] to clarify and discussed situation and options. 01/15 bilateral hand tremor; patient reports it is chronic and comes and goes but a little worse today 01/16 continue current treatment plan PLAN: *Started Lasix 20mg BID on 01/03 for b/l lower limb edema Bilateral lower limbs with minimal improvement; right hand more swollen than left 1. ASD/PTSD/intermittent explosive disorder: CHANGED to Depakote sprinkles DR 1200mg bId (roughly equiv to Depakote ER 2500 mg q.h.s ...) Continue Zyprexa 20 mg q.h.s. (may very well tolerate lower dose as overseen by outpatient provider) Increased Prozac to 60mg (increased during this admission) Continue Xanax 0.5 mg t.i.d. p.r.n. for agitation; may give alone or with Geodon Continue Geodon 20 mg b.i.d. p.r.n. for agitation (*pt may get IM Geodon if requested for faster action) Continue Clonidine 0.1 mg t.i.d. Continue Trazodone 100 mg q.h.s. DC'd zyprexa 5mg in afternoon DC'd perphenazine (patient has no history of psychotic illness and very likely does not need this medication) Chronic conditions: 2. CHARLES positive appointment made with Rheumatology February 20 -daytime fatigue; b/l peripheral edema; mild dyspnea on exertion Discussed with Dr. Hamilton who recommends and following labs ordered: -Urine protein creatinine ratio -Rheumatoid factor -CCP antibody 3. Bilateral peripheral edema (lower/upper extrem):? Medication side effect (Zyprexa/Depakote)?? vs organic origin some reduction w/ lowering of medications Zyprexa and depakote r/u autoimune 4. Complaint of chronic struggles with inspiration: lungs CTA; CXR unremarkable Pulmonary function test: results reviewed, discussed with Dr. Melchor -elevated CHARLES and abnromal PFTs with a mild restriction with a mild diffusion impairment. -could be explained by her elevated BMI. -at this time dr. Melchor reports given lab work, at this time it does not look like she has lupus nor sjogrens nor scleroderma. Her cxr was good. needs a sleep study as an out pt (daytime drowsiness bringing up the possibility of obstructive sleep apnea) does not need an inpt ct scan but should f/up with outpt pulmonary and rheumatology. -in further discussion, Dr. Melchor agrees that CHARLES needs further evaluation, 5. Amenorrhea: Patient did get her menses on 01/11 Patient did have menses a few years ago while on control; has not had it since control discontinued about 2 years ago Labs: mostly WNL; will f/u with PCP/obstetrics gynecology physician PSYCHIATRIC IMPRESSION/DIAGNOSIS:. Impression: Patient is a fun, intelligent, cooperative and friendly person. When she gets triggered by something she can decompensate severely, dissociate and become physically aggressive.? Patient is now diagnosed with ASD, PTSD, and intermittent explosive disorder.? From [facility], she carried the diagnosis of Schizoaffective disorder and mention of borderline personality disorder.? Both of these have been ruled out.? 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 She is linear, logical, articulate, insightful and organized in her thinking; she is organized in her behaviors.? Patient can have intrusive thoughts but only when triggered and this does not seem to be OCD.? She can have some rigid thinking in line with ASD.? Many of her dysregulated moments come from her PTSD being exacerbated.? Patient has well tolerated decrease of Zyprexa, decrease of Depakote and discontinuation of perphenazine. Primary dx: ASD. Patient's father and grandmother maintain that she met her milestones in childhood. 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 During childhood she attended [facility] in [place], treatment center typically for people with autism; in [place] when at [facility], she carried a dx of ASD.? As observed on the unit, Patient frequently rocks back and forth, when standing or sitting, while talking to others or calming herself down.? Patient does not have a sense of a person's personal space and will get much to close to a person when talking; she is redirectable and apologizes but she is unaware she is doing it and does not get verbal cues when conversation participant is backing away or trying to end a conversation; though redirectable, she will again get too close, again unaware.? In the milieu with peers, While she will sometimes spend time in the vicinity of others, she is mostly alongside people and not directly interacting with them.? That said, she will directly interact with staff. Patient does make eye contact, however she stares the entire time she is engaged. ? She can have a logical conversation, however she is concrete Patient has a blunted affect and though she can smile and laugh, she is otherwise expressionless with blunted affect. Patient has in flexibility regarding food when it is not as expected patient can get severely dysregulated Patient has some hypo-reactivity to loud noises and crowds of people. Conversely, She does get jokes, even subtle ones. Symptoms have clearly made life functioning extremely difficult.? It is unclear if patient has had neuropsych testing. She did spend time at [facility]. Regarding PTSD: Patient has a history of trauma from both childhood experiences, as well as trauma that occurred while on inpatient unit at [facility] and [place].? She has also been institutionalized since a young age, away from her mother and father, feeling abandoned.? She can have several regressed behaviors and some child-like interests. Regarding Dissociative Disorder:? Patient has episodes of depersonalization and derealization which the typically arise when triggered and during which time she will feel detached from herself, from her body and feel as if things are unreal and dream like, with out a sense of time; after they conclude and she is again in the present, she can be upset about some behaviors she engaged in during the dissociate period once made aware. Not BPD: Regarding past references to borderline personality disorder, [employer] and team agree there have been no axis II traits expressed throughout her time in the hospital; none could be cleaned from records No psychotic illness: no psychotic symptoms past or present Patient educated on: diagnosis Reason for contiued inpatient stay Substantial Risk for: inability to function Time Spent With Patient Time: Total time managing care of this patient today ____ minutes.
[2023-01-16] MEDS: cloNIDine HCL 0.1 MG TABLET PO (14:22)
[2023-01-16 14:23] VITALS: BP 107/64; PULSE 87; RESP 16; TEMP 36.7; O2SAT 97
[2023-01-16 18:15] VITALS: BP 114/67; PULSE 88; RESP 14; TEMP 37.2; O2SAT 97
[2023-01-16] MEDS: OLANZapine 10 MG TABLET 20 MG PO (21:37)
[2023-01-16] MEDS: traZODone HCL 100 MG TABLET PO (21:37)
[2023-01-16] MEDS: diphenhydrAMINE HCL 25 MG CAPSULE 50 MG PO (21:37)
[2023-01-16] MEDS: Multivitamin TABLET 1 TAB PO (21:37)
[2023-01-16 21:53] VITALS: BP 80/55; PULSE 65; RESP 14; TEMP 36.6; O2SAT 97
[2023-01-16] MEDS: Famotidine 20 MG TABLET PO (21:58)
[2023-01-17] MEDS: Sennosides/Docusate Sodium TABLET 1 TAB PO ×2 (08:06→21:39)
[2023-01-17] MEDS: Furosemide 20 MG TABLET PO ×2 (08:06→16:12)
[2023-01-17] MEDS: Divalproex Sodium Sprinkles 125 MG CAP.DR.SPR 1250 MG PO ×2 (08:06→21:40)
[2023-01-17] MEDS: FLUoxetine HCl 20 MG CAPSULE 60 MG PO (08:06)
[2023-01-17 09:00] VITALS: BP 127/78; PULSE 100; RESP 14; TEMP 36.6; O2SAT 98
--- NOTE | 2023-01-17 10:02 | P.PNPSI_ITS ---
Subjective Subjective Date of Service: 01/17/23 Reason For Visit: Mood Dysregulation Interim History: briefly met with patient; discussed in team no change in presentation; showed medical technical writer what looks like plantlucie wart on foot. Leg swelling looks a little better. Discussed treatment and pt likes the idea of seeing career resource specialist even if at another hospital . Mental Status Exam Mental Status Exam Narrative: Pt is alert and oriented; behavior is cooperative, calm; dressed in casual attire, mood is described as depressed and affect congruent, downcast but a little less so; eye contact appropriate; Speech is regular rate, volume, prosody; some psychomotor retardation present; thought process is organized and goal directed; Thought content is on trying not to feel hopeless, past trauma, treatment; otherwise pertinent to relevant topics and without any delusional content, paranoid ideations or grandiosity; no SI; no HI. No AVH and there is no evidence of perceptual disturbance.. Patients insight and judgment are impaired but improving. Diagnostics Vital Signs (24Hr): Vital Signs - 24 hr 01/16/23 14:23 01/16/23 18:15 01/16/23 21:53 Temperature 98.0 F 99 F 98 F Pulse Rate 87 88 65 Respiratory Rate 16 14 14 Blood Pressure 107/64 114/67 80/55 L Pulse Oximetry 97 97 97 Oxygen Delivery Method Room Air Room Air Room Air BMI result Body Mass Index 38.1 Labs 12/27/22 20:00 12/27/22 19:59 Medications Medications Current Medications Acetaminophen (Acetaminophen 325 Mg Tablet) 650 mg PO Q6H PRN PRN Reason: Headache/Pain Mild Scale (1-3) Al Hydroxide/Mg Hydroxide (Magnesium Hydrox/Alum Hydrox 30 Ml Oral.Susp) 30 ml PO Q6H PRN PRN Reason: Heartburn/Nausea Last Admin: 12/31/22 08:29 Dose: 30 ml Alprazolam (Alprazolam 0.5 Mg Tablet) 0.5 mg PO TID PRN PRN Reason: Anxiety Last Admin: 01/14/23 16:49 Dose: 0.5 mg Clonidine HCl (Clonidine Hcl 0.1 Mg Tablet) 0.1 mg PO BID@1400,2100 OSCAR; Protocol Last Admin: 01/16/23 21:54 Dose: Not Given Diphenhydramine HCl (Diphenhydramine Hcl 25 Mg Capsule) 50 mg PO BEDTIME OSCAR Last Admin: 01/16/23 21:37 Dose: 50 mg Divalproex Sodium (Divalproex Sodium Sprinkles 125 Mg ) 1,250 mg PO BID [facility] Last Admin: 01/17/23 08:06 Dose: 1,250 mg Famotidine (Famotidine 20 Mg Tablet) 20 mg PO BEDTIME [facility] Last Admin: 01/16/23 21:58 Dose: 20 mg Famotidine (Famotidine 20 Mg Tablet) 20 mg PO DAILY PRN PRN Reason: GERD Fluoxetine HCl (Fluoxetine Hcl 20 Mg Capsule) 60 mg PO DAILY [facility] Last Admin: 01/17/23 08:06 Dose: 60 mg Furosemide (Furosemide 20 Mg Tablet) 20 mg PO BID@0900,1700 [facility]; Protocol Last Admin: 01/17/23 08:06 Dose: 20 mg Loratadine (Loratadine 10 Mg Tablet) 10 mg PO DAILY PRN PRN Reason: congestion Magnesium Hydroxide (Milk Of Magnesia 30 Ml Oral.Susp) 30 ml PO DAILY PRN PRN Reason: Constipation Last Admin: 01/11/23 21:26 Dose: 30 ml Melatonin (Melatonin 3 Mg Tablet) 3 mg PO BEDTIME PRN PRN Reason: insomnia Last Admin: 01/12/23 22:14 Dose: 3 mg Multivitamins/Vitamin C (Multivitamin Tablet) 1 tab PO BEDTIME [facility] Last Admin: 01/16/23 21:37 Dose: 1 tab Naproxen (Naproxen 500 Mg Tablet) 500 mg PO Q12H PRN PRN Reason: mild pain Last Admin: 01/15/23 15:47 Dose: 500 mg Olanzapine (Olanzapine 10 Mg Tablet) 20 mg PO BEDTIME [facility] Last Admin: 01/16/23 21:37 Dose: 20 mg Senna/Docusate Sodium (Sennosides/Docusate Sodium Tablet) 1 tab PO BID [facility] Last Admin: 01/17/23 08:06 Dose: 1 tab Trazodone HCl (Trazodone Hcl 50 Mg Tablet) 50 mg PO BEDTIME PRN PRN Reason: insomnia Last Admin: 01/10/23 22:34 Dose: 50 mg Trazodone HCl (Trazodone Hcl 100 Mg Tablet) 100 mg PO BEDTIME [facility] Last Admin: 01/16/23 21:37 Dose: 100 mg Ziprasidone (Ziprasidone 20 Mg Capsule) 20 mg PO BID PRN PRN Reason: Agitation Last Admin: 01/14/23 16:49 Dose: 20 mg Allergies Allergies Allergy/AdvReac Type Severity Reaction Status Date / Time chlorpromazine Allergy Anaphylaxis Verified 12/27/22 16:37 [From Thorazine] nut - unspecified Allergy Anxiety Verified 12/27/22 16:37 haloperidol [From Haldol] AdvReac Agitated Verified 12/27/22 16:37 lithium AdvReac Hives Verified 12/27/22 16:37 Assessment & Plan Assessment & Plan (1) Autism: Status: Suspected Code(s): F84.0 - Autistic disorder (2) PTSD (post-traumatic stress disorder): Status: Suspected Code(s): F43.10 - Post-traumatic stress disorder, unspecified (3) Intermittent explosive disorder: Status: Acute Code(s): F63.81 - Intermittent explosive disorder (4) CHARLES positive: Status: Acute Code(s): R76.8 - Other specified abnormal immunological findings in serum (5) Chronic restrictive lung disease: Status: Acute Code(s): J98.4 - Other disorders of lung (6) Peripheral edema: Status: Acute Code(s): R60.9 - Edema, unspecified (7) Amenorrhea: Status: Acute Code(s): N91.2 - Amenorrhea, unspecified Plan HPI: Patient is a bright, kind 22-year-old female, well known to this service, with history of Autism, PTSD recently discharged from on 12/25/2022 (and recently dc'd from [facility] after 5 years) who re-presents 2 days l ater for resurgence of suicidal ideation, dissociative episode and having run out during therapy session, into the street trying to hit by traffic and then eloping again from crisis again trying to get hit by oncoming cars. This has happened after ever discharge since coming to [facility]. Patient reports that day she left she had the intrusive thought that I am gonna screw this up again which just built and built until it overwhelmed her. Patient says she tried very hard to resist self-harm but the constant intrusive thought was unrelenting. She reports that on the way into the therapist building she got triggered as setting and some other people around reminded her of state ho spital; already being on edge, this launched her into a full-blown panic attack; she dissociated and ran into the street wanting to . Patient says she just cannot seem to control. She also worries that she is unsafe living at her grandmother's, whom she loves dearly, because her grandmother is not able to sense when patient is starting to unravel and cannot preemptively help ground her and prevent dysregulated/dissociate of episode; patient says that sometimes she is able to alert her grandmother that she is headed this direction but many time she is not. Patient says she needs to live in a place with staff who were trained who can help divert her from such episodes. Passive SI remains but none active. Patient does not want to and wants to continue with treatment therapy. It is unclear if patient meets full criteria for OCD diagnosis however she has OCD like symptoms and will thus increase Prozac which has thus far been well tolerated. Hospital course: 12/30 stabilizing; continue current treatment plan 12/31 patient continues to stabilize; no change in medications at this time however will likely seek to reduce possibly Depakote her Zyprexa level; may increase Prozac for PTSD/OCD like symptoms 01/01 stabilizing 01/02 tough night, needing geodon prns; asked to change depakote to sprinkles and maybe lower dose since tired in daytime and pt may be stable at lower dose 01/03 will add short trial of Lasix 20mg BID for continued lower limb edema (Jamal stockings tried and ripped) 01/06/23- Continue current plan and regime 01/07 continue current treatment plan for now 01/09 patient is significantly more depressed, hopeless and wishing she were . Situational stressors are significantly contributory including limited options for disposition and stressors on the unit; however patient is also reflecting on her life, her chronic symptoms and long history of living in institutions, creating a hopelessness that her things will get better. It is possible that changing Depakote formulation to DR could be contributory, however theoretically it is the same total daily dose. -patient has been in an institution more time the not since 6 years old and has spent the last 5 years in a [facility]; it was likely an unreasonable expectation that she would be able to immediately discharge and be successful in community. Rather acclimation will be a gradual process. At this time will increase Prozac to 60 mg to see if this can help. Currently patient is depressed and suicidal and in imminent risk of harm to self if discha rged. 01/07 for patient a little bit improved, depression a little lower possibly due to increased Prozac 01/12/23 Continue current plan. 01/13/23 Continue current plan. 01/14 patient remains depressed but less so and she denies SI bilateral lower limb edema has decreased since getting her menses. Discussed disposition plans with forensic social worker and reviewed possible options and concerns from both DDS and DM; currently recommendation from DDS is for patient to undergo evaluation by Dr. Caputo; team agrees it will help to organize a joint meeting with both DDS in [facility] to clarify and discussed situation and options. 01/15 bilateral hand tremor; patient reports it is chronic and comes and goes but a little worse today 01/16 continue current treatment plan PLAN: *Started Lasix 20mg BID on 01/03 for b/l lower limb edema Bilateral lower limbs with minimal improvement; right hand more swollen than left 1. ASD/PTSD/intermittent explosive disorder: CHANGED to Depakote sprinkles DR 1200mg bId (roughly equiv to Depakote ER 2500 mg q.h.s ...) Continue Zyprexa 20 mg q.h.s. (may very well tolerate lower dose as overseen by outpatient provider) Increased Prozac to 60mg (increased during this admission) Continue Xanax 0.5 mg t.i.d. p.r.n. for agitation; may give alone or with Geodon Continue Geodon 20 mg b.i.d. p.r.n. for agitation (*pt may get IM Geodon if requested for faster action) Continue Clonidine 0.1 mg t.i.d. Continue Trazodone 100 mg q.h.s. DC'd zyprexa 5mg in afternoon DC'd perphenazine (patient has no history of psychotic illness and very likely does not need this medication) Chronic conditions: 2. CHARLES positive appointment made with Rheumatology February 20 -daytime fatigue; b/l peripheral edema; mild dyspnea on exertion Discussed with Dr. Hamilton who recommends and following labs ordered: -Urine protein creatinine ratio -Rheumatoid factor -CCP antibody 3. Bilateral peripheral edema (lower/upper extrem):? Medication side effect (Zyprexa/Depakote)?? vs organic origin some reduction w/ lowering of medications Zyprexa and depakote r/u autoimune 4. Complaint of chronic struggles with inspiration: lungs CTA; CXR unremarkable Pulmonary function test: results reviewed, discussed with Dr. Melchor -elevated CHARLES and abnromal PFTs with a mild restriction with a mild diffusion impairment. -could be explained by her elevated BMI. -at this time dr. Melchor reports given lab work, at this time it does not look like she has lupus nor sjogrens nor scleroderma. Her cxr was good. needs a sleep study as an out pt (daytime drowsiness bringing up the possibility of obstructive sleep apnea) does not need an inpt ct scan but should f/up with outpt pulmonary and rheumatology. -in further discussion, Dr. Melchor agrees that CHARLES needs further evaluation, 5. Amenorrhea: Patient did get her menses on 01/11 Patient did have menses a few years ago while on control; has not had it since control discontinued about 2 years ago Labs: mostly WNL; will f/u with PCP/head filter tank tender helper PSYCHIATRIC IMPRESSION/DIAGNOSIS:. Impression: Patient is a fun, intelligent, cooperative and friendly person. When she gets triggered by something she can decompensate severely, dissociate and become physically aggressive.? Patient is now diagnosed with ASD, PTSD, and i ntermittent explosive disorder.? From [facility], she carried the diagnosis of Schizoaffective disorder and mention of borderline personality disorder.? Both of these have been ruled out.? Patient has no present psychotic symptoms, denies any history of AVH or delusional thinking, and has no reported history anywhere that can be found of any psychotic symptoms (history includes medical technical writer having gone through numerous pages of notes from [facility] and other institutions).? She is linear, logical, articulate, insightful and organized in her thinking; she is organized in her behaviors.? Patient can have intrusive thoughts but only when triggered and this does not seem to be OCD.? She can have some rigid thinking in line with ASD.? Many of her dysregulated moments come from her PTSD being exacerbated.? Patient has well tolerated decrease of Zyprexa, decrease of Depakote and discontinuation of perphenazine. Primary dx: ASD. Patient's father and grandmother maintain that she met her milestones in childhood. 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 During childhood she attended [facility] in [place], treatment center typically for people with autism; in [place] when at [facility], she carried a dx of ASD.? As observed on the unit, Patient frequently rocks back and forth, when standing or sitting, while talking to others or calming herself down.? Patient does not have a sense of a person's personal space and will get much to close to a person when talking; she is redirectable and apologizes but she is unaware she is doing it and does not get verbal cues when conversation participant is backing away or trying to end a conversation; though redirectable, she will again get too close, again unaware.? In the milieu with peers, While she will sometimes spend time in the vicinity of others, she is mostly alongside people and not directly interacting with them.? That said, she will directly interact with staff. Patient does make eye contact, however she stares the entire time she is engaged. ? She can have a logical conversation, however she is concrete Patient has a blunted affect and though she can smile and laugh, she is otherwis e expressionless with blunted affect. Patient has in flexibility regarding food when it is not as expected patient can get severely dysregulated Patient has some hypo-reactivity to loud noises and crowds of people. Conversely, She does get jokes, even subtle ones. Symptoms have clearly made life functioning extremely difficult.? It is unclear if patient has had neuropsych testing. She did spend time at [facility]. Regarding PTSD: Patient has a history of trauma from both childhood experiences, as well as trauma that occurred while on inpatient unit at [facility] and [place].? She has also been institutionalized since a young age, away from her mother and father, feeling abandoned.? She can have several regressed behaviors and some child-like interests. Regarding Dissociative Disorder:? Patient has episodes of depersonalization and derealization which the typically arise when triggered and during which time she will feel detached from herself, from her body and feel as if things are unreal and dream like, with out a sense of time; after they conclude and she is again in the present, she can be upset about some behaviors she engaged in during the dissociate period once made aware. Not BPD: Regarding past references to borderline personality disorder, Er Registrar and team agree there have been no axis II traits expressed throughout her time in the hospital; none could be cleaned from records No psychotic illness: no psychotic symptoms past or present Patient educated on: diagnosis Informed Consent: understands Reason for contiued inpatient stay Substantial Risk for: inability to function Time Spent With Patient Time: Total time managing care of this patient today ____ minutes.
[2023-01-17] MEDS: cloNIDine HCL 0.1 MG TABLET PO ×2 (14:34→21:39)
[2023-01-17] MEDS: diphenhydrAMINE HCL 25 MG CAPSULE PO (16:12)
[2023-01-17 18:00] VITALS: BP 87/52; PULSE 67; TEMP 36.2; O2SAT 95
[2023-01-17] MEDS: Milk of Magnesia 30 ML ORAL.SUSP PO (21:17)
[2023-01-17] MEDS: Multivitamin TABLET 1 TAB PO (21:39)
[2023-01-17] MEDS: diphenhydrAMINE HCL 25 MG CAPSULE 50 MG PO (21:39)
[2023-01-17] MEDS: traZODone HCL 100 MG TABLET PO (21:39)
[2023-01-17] MEDS: OLANZapine 10 MG TABLET 20 MG PO (21:39)
[2023-01-17] MEDS: Famotidine 20 MG TABLET PO (21:40)
--- NOTE | 2023-01-17 22:34 | PC.NURSE ---
pt complained of constipation pain and bleeding. MD was notified and pt was given milk of mag
[2023-01-17] MEDS: Melatonin 3 MG TABLET PO (22:51)
[2023-01-17] MEDS: traZODone HCL 50 MG TABLET PO (22:51)
[2023-01-18] MEDS: ALPRAZolam 0.5 MG TABLET PO (00:21)
[2023-01-18 06:00] VITALS: BP 96/56; PULSE 80; RESP 16; TEMP 36.7; O2SAT 98
[2023-01-18] MEDS: Furosemide 20 MG TABLET PO ×2 (08:23→18:17)
[2023-01-18] MEDS: Divalproex Sodium Sprinkles 125 MG CAP.DR.SPR 1250 MG PO ×2 (08:23→22:55)
[2023-01-18] MEDS: FLUoxetine HCl 20 MG CAPSULE 60 MG PO (08:24)
[2023-01-18] MEDS: Milk of Magnesia 30 ML ORAL.SUSP 60 ML PO (08:25)
[2023-01-18] MEDS: Sennosides/Docusate Sodium TABLET 2 TAB PO ×2 (08:51→22:56)
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
[2023-01-18 18:00] VITALS: BP 125/69; PULSE 94; TEMP 36.6; O2SAT 96
[2023-01-18] MEDS: LORazepam 2 MG/ML VIAL IM (21:49)
[2023-01-18] MEDS: Ziprasidone Mesylate 20 MG VIAL IM (22:00)
[2023-01-18] MEDS: diphenhydrAMINE HCL 25 MG CAPSULE 50 MG PO (22:55)
[2023-01-18] MEDS: Multivitamin TABLET 1 TAB PO (22:55)
[2023-01-18] MEDS: Famotidine 20 MG TABLET PO (22:55)
[2023-01-18] MEDS: cloNIDine HCL 0.1 MG TABLET PO (22:55)
[2023-01-18] MEDS: traZODone HCL 100 MG TABLET PO (22:56)
[2023-01-18] MEDS: OLANZapine 10 MG TABLET 20 MG PO (22:56)
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
[2023-01-19 08:27] VITALS: BP 121/69; PULSE 96; RESP 16; TEMP 36.2; O2SAT 96
[2023-01-19] MEDS: Furosemide 20 MG TABLET PO ×2 (08:40→18:32)
[2023-01-19] MEDS: Sennosides/Docusate Sodium TABLET 2 TAB PO (08:40)
[2023-01-19] MEDS: Lactulose 20 GM/30 ML SOLUTION PO (08:40)
[2023-01-19] MEDS: FLUoxetine HCl 20 MG CAPSULE 60 MG PO (08:41)
[2023-01-19] MEDS: Divalproex Sodium Sprinkles 125 MG CAP.DR.SPR 1250 MG PO ×3 (08:41→23:37)
[2023-01-19 14:11] VITALS: BP 90/56
--- NOTE | 2023-01-19 16:35 | HO.PSYCHPN ---
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 Patients insight and judgment are impaired but improving. Patient Appearance: Appropriate Patient Orientation: Person, Place, Time and Situation Level of Consciousness: Alert Patient Behavior: Talkative Mood Description: Constricted Affect Description: Constricted Patient Cognition Impaired: Yes Ability to Follow Directions: Fair Speech Pattern: Spontaneous Speech Memory Description: Episodic Impaired Diagnostics Vital Signs (24Hr): Vital Signs - 24 hr 01/18/23 18:00 01/19/23 08:27 01/19/23 14:11 Temperature 97.8 F 97.1 F Pulse Rate 94 96 Respiratory Rate 16 Blood Pressure 125/69 121/69 90/56 L Pulse Oximetry 96 96 Oxygen Delivery Method Room Air Room Air BMI result Body Mass Index 38.1 Labs 12/27/22 20:00 12/27/22 19:59 Imaging Radiology Impressions: ITS Impressions Hand X-Ray 01/18/23 23:35 IMPRESSION: No acute fracture or dislocation of either hand. Hand X-Ray 01/18/23 23:35 IMPRESSION: No acute fracture or dislocation of either hand. Medications Medications Current Medications Acetaminophen (Acetaminophen 325 Mg Tablet) 650 mg PO Q6H PRN PRN Reason: Headache/Pain Mild Scale (1-3) Al Hydroxide/Mg Hydroxide (Magnesium Hydrox/Alum Hydrox 30 Ml Oral.Susp) 30 ml PO Q6H PRN PRN Reason: Heartburn/Nausea Last Admin: 12/31/22 08:29 Dose: 30 ml Alprazolam (Alprazolam 0.5 Mg Tablet) 0.5 mg PO TID PRN PRN Reason: Anxiety Last Admin: 01/18/23 00:21 Dose: 0.5 mg Clonidine HCl (Clonidine Hcl 0.1 Mg Tablet) 0.1 mg PO BID@1400,2100 [facility]; Protocol Last Admin: 01/19/23 14:12 Dose: Not Given Diphenhydramine HCl (Diphenhydramine Hcl 25 Mg Capsule) 50 mg PO BEDTIME [facility] Last Admin: 01/18/23 22:55 Dose: 50 mg Divalproex Sodium (Divalproex Sodium Sprinkles 125 Mg Donald.) 1,250 mg PO BID [facility] Last Admin: 01/19/23 08:41 Dose: 1,250 mg Famotidine (Famotidine 20 Mg Tablet) 20 mg PO BEDTIME [facility] Last Admin: 01/18/23 22:55 Dose: 20 mg Famotidine (Famotidine 20 Mg Tablet) 20 mg PO DAILY PRN PRN Reason: GERD Fluoxetine HCl (Fluoxetine Hcl 20 Mg Capsule) 60 mg PO DAILY [facility] Last Admin: 01/19/23 08:41 Dose: 60 mg Furosemide (Furosemide 20 Mg Tablet) 20 mg PO BID@0900,1700 [facility]; Protocol Last Admin: 01/19/23 08:40 Dose: 20 mg Lactulose (Lactulose 20 Gm/30 Ml Solution) 20 gm PO DAILY [facility] Last Admin: 01/19/23 08:40 Dose: 20 gm Loratadine (Loratadine 10 Mg Tablet) 10 mg PO DAILY PRN PRN Reason: congestion Magnesium Hydroxide (Milk Of Magnesia 30 Ml Oral.Susp) 30 ml PO DAILY [facility] Last Admin: 01/19/23 09:09 Dose: Not Given Melatonin (Melatonin 3 Mg Tablet) 3 mg PO BEDTIME PRN PRN Reason: insomnia Last Admin: 01/17/23 22:51 Dose: 3 mg Multivitamins/Vitamin C (Multivitamin Tablet) 1 tab PO BEDTIME [facility] Last Admin: 01/18/23 22:55 Dose: 1 tab Naproxen (Naproxen 500 Mg Tablet) 500 mg PO Q12H PRN PRN Reason: mild pain Last Admin: 01/15/23 15:47 Dose: 500 mg Olanzapine (Olanzapine 10 Mg Tablet) 20 mg PO BEDTIME [facility] Last Admin: 01/18/23 22:56 Dose: 20 mg Senna/Docusate Sodium (Sennosides/Docusate Sodium Tablet) 2 tab PO BID [facility] Last Admin: 01/19/23 08:40 Dose: 2 tab Trazodone HCl (Trazodone Hcl 50 Mg Tablet) 50 mg PO BEDTIME PRN PRN Reason: insomnia Last Admin: 01/17/23 22:51 Dose: 50 mg Trazodone HCl (Trazodone Hcl 100 Mg Tablet) 100 mg PO BEDTIME [facility] Last Admin: 01/18/23 22:56 Dose: 100 mg Ziprasidone (Ziprasidone 20 Mg Capsule) 20 mg PO BID PRN PRN Reason: Agitation Last Admin: 01/14/23 16:49 Dose: 20 mg Allergies Allergies Allergy/AdvReac Type Severity Reaction Status Date / Time chlorpromazine Allergy Anaphylaxis Verified 12/27/22 16:37 [From Thorazine] nut - unspecified Allergy Anxiety Verified 12/27/22 16:37 haloperidol [From Haldol] AdvReac Agitated Verified 12/27/22 16:37 lithium AdvReac Hives Verified 12/27/22 16:37 Assessment & Plan Assessment & Plan (1) Autism: Status: Suspected Code(s): F84.0 - Autistic disorder (2) PTSD (post-traumatic stress disorder): Status: Suspected Code(s): F43.10 - Post-traumatic stress disorder, unspecified (3) Intermittent explosive disorder: Status: Acute Code(s): F63.81 - Intermittent explosive disorder (4) CHARLES positive: Status: Acute Code(s): R76.8 - Other specified abnormal immunological findings in serum (5) Chronic restrictive lung disease: Status: Acute Code(s): J98.4 - Other disorders of lung (6) Peripheral edema: Status: Acute Code(s): R60.9 - Edema, unspecified (7) Amenorrhea: Status: Acute Code(s): N91.2 - Amenorrhea, unspecified Plan HPI: Patient is a bright, kind 22-year-old female, well known to this service, with history of Autism, PTSD recently discharged from on 12/25/2022 (and recently dc'd from [facility] after 5 years) who re-presents 2 days later for resurgence of suicidal ideation, dissociative episode and having run out during therapy session, into the street trying to hit by traffic and then eloping again from crisis again trying to get hit by oncoming cars. This has happened after ever discharge since coming to [facility]. Patient reports that day she left she had the intrusive thought that I am gonna screw this up again which just built and built until it overwhelmed her. Patient says she tried very hard to resist self-harm but the constant intrusive thought was unrelenting. She reports that on the way into the therapist building she got triggered as setting and some other people around [facility]; already being on edge, this launched her into a full-blown panic attack; she dissociated and ran into the street wanting to . Patient says she just cannot seem to control. She also worries that she is unsafe living at her grandmother's, whom she loves dearly, because her grandmother is not able to sense when patient is starting to unravel and cannot preemptively help ground her and prevent dysregulated/dissociate of episode; patient says that sometimes she is able to alert her grandmother that she is headed this direction but many time she is not. Patient says she needs to live in a place with staff who were trained who can help divert her from such episodes. Passive SI remains but none active. Patient does not want to and wants to continue with treatment therapy. It is unclear if patient meets full criteria for OCD diagnosis however she has OCD like symptoms and will thus increase Prozac which has thus far been well tolerated. Hospital course: 12/30 stabilizing; continue current treatment plan 12/31 patient continues to stabilize; no change in medications at this time however will likely seek to reduce possibly Depakote her Zyprexa level; may increase Prozac for PTSD/OCD like symptoms 01/01 stabilizing 01/02 tough night, needing geodon prns; asked to change depakote to sprinkles and maybe lower dose since tired in daytime and pt may be stable at lower dose 01/03 will add short trial of Lasix 20mg BID for continued lower limb edema (Jamal stockings tried and ripped) 01/06/23- Continue current plan and regime 01/07 continue current treatment plan for now 01/09 patient is significantly more depressed, hopeless and wishing she were . Situational stressors are significantly contributory including limited options for disposition and stressors on the unit; however patient is also reflecting on her life, her chronic symptoms and long history of living in institutions, creating a hopelessness that her things will get better. It is possible that changing Depakote formulation to DR could be contributory, however theoretically it is the same total daily dose. -patient has been in an institution more time the not since 6 years old and has spent the last 5 years in a [facility]; it was likely an unreasonable expectation that she would be able to immediately discharge and be successful in community. Rather acclimation will be a gradual process. At this time will increase Prozac to 60 mg to see if this can help. Currently patient is depressed and suicidal and in imminent risk of harm to self if discharged. 01/07 for patient a little bit improved, depression a little lower possibly due to increased Prozac 01/12/23 Continue current plan. 01/13/23 Continue current plan. 01/14 patient remains depressed but less so and she denies SI bilateral lower limb edema has decreased since getting her menses. Discussed disposition plans with family welfare social work professor and reviewed possible options and concerns from both DDS and DM; currently recommendation from DDS is for patient to undergo evaluation by Dr. Caputo; team agrees it will help to organize a joint meeting with both DDS in DM to clarify and discussed situation and options. 01/15 bilateral hand tremor; patient reports it is chronic and comes and goes but a little worse today 01/16 continue current treatment plan 3.31 depressed; agrees to start lactulose Learning And Development Administrator called Lou Mitchell, supervising case picker at [facility] and discussed treatment; Lou explained potentially collaborative involvement with [facility] and that patient was accepted to [facility] and approved for virtual assessment. Continue current treatment plan PLAN: *Started Lasix 20mg BID on 01/03 for b/l lower limb edema Bilateral lower limbs with minimal improvement; right hand more swollen than left 1. ASD/PTSD/intermittent explosive disorder: CHANGED to Depakote sprinkles DR 1200mg bId (roughly equiv to Depakote ER 2500 mg q.h.s ...) Continue Zyprexa 20 mg q.h.s. (may very well tolerate lower dose as overseen by outpatient provider) Increased Prozac to 60mg (increased during this admission) Continue Xanax 0.5 mg t.i.d. p.r.n. for agitation; may give alone or with Geodon Continue Geodon 20 mg b.i.d. p.r.n. for agitation (*pt may get IM Geodon if requested for faster action) Continue Clonidine 0.1 mg t.i.d. Continue Trazodone 100 mg q.h.s. DC'd zyprexa 5mg in afternoon DC'd perphenazine (patient has no history of psychotic illness and very likely does not need this medication) Chronic conditions: 2. CHARLES positive appointment made with Rheumatology February 20 -daytime fatigue; b/l peripheral edema; mild dyspnea on exertion Discussed with Dr. Hamilton who recommends and following labs ordered: -Urine protein creatinine ratio -Rheumatoid factor -CCP antibody 3. Bilateral peripheral edema (lower/upper extrem):? Medication side effect (Zyprexa/Depakote)?? vs organic origin some reduction w/ lowering of medications Zyprexa and depakote r/u autoimune 4. Complaint of chronic struggles with inspiration: lungs CTA; CXR unremarkable Pulmonary function test: results reviewed, discussed with Dr. Melchor -elevated CHARLES and abnromal PFTs with a mild restriction with a mild diffusion impairment. -could be explained by her elevated BMI. -at this time dr. Melchor reports given lab work, at this time it does not look like she has lupus nor sjogrens nor scleroderma. Her cxr was good. needs a sleep study as an out pt (daytime drowsiness bringing up the possibility of obstructive sleep apnea) does not need an inpt ct scan but should f/up with outpt pulmonary and rheumatology. -in further discussion, Dr. Melchor agrees that CHARLES needs further evaluation, 5. Amenorrhea: Patient did get her menses on 01/11 Patient did have menses a few years ago while on control; has not had it since control discontinued about 2 years ago Labs: mostly WNL; will f/u with PCP/community health education coordinator PSYCHIATRIC IMPRESSION/DIAGNOSIS:. Impression: Patient is a fun, intelligent, cooperative and friendly person. When she gets triggered by something she can decompensate severely, dissociate and become physically aggressive.? Patient is now diagnosed with ASD, PTSD, and intermittent explosive disorder.? From [facility], she carried the diagnosis of Schizoaffective disorder and mention of borderline personality disorder.? Both of these have been ruled out.? 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 She is linear, logical, articulate, insightful and organized in her thinking; she is organized in her behaviors.? Patient can have intrusive thoughts but only when triggered and this does not seem to be OCD.? She can have some rigid thinking in line with ASD.? Many of her dysregulated moments come from her PTSD being exacerbated.? Patient has well tolerated decrease of Zyprexa, decrease of Depakote and discontinuation of perphenazine. Primary dx: ASD. Patient's father and grandmother maintain that she met her milestones in childhood. 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 During childhood she attended [facility] [place] [place], treatment center typically for people with autism; in [place] when at [facility], she carried a dx of ASD.? As observed on the unit, Patient frequently rocks back and forth, when standing or sitting, while talking to others or calming herself down.? Patient does not have a sense of a person's personal space and will get much to close to a person when talking; she is redirectable and apologizes but she is unaware she is doing it and does not get verbal cues when conversation participant is backing away or trying to end a conversation; though redirectable, she will again get too close, again unaware.? In the milieu with peers, While she will sometimes spend time in the vicinity of others, she is mostly alongside people and not directly interacting with them.? That said, she will directly interact with staff. Patient does make eye contact, however she stares the entire time she is engaged. ? She can have a logical conversation, however she is concrete Patient has a blunted affect and though she can smile and laugh, she is otherwise expressionless with blunted affect. Patient has in flexibility regarding food when it is not as expected patient can get severely dysregulated Patient has some hypo-reactivity to loud noises and crowds of people. Conversely, She does get jokes, even subtle ones. Symptoms have clearly made life functioning extremely difficult.? It is unclear if patient has had neuropsych testing. She did spend time at [facility]. Regarding PTSD: Patient has a history of trauma from both childhood experiences, as well as trauma that occurred while on inpatient unit at [facility] and [place].? She has also been institutionalized since a young age, away from her mother and father, feeling abandoned.? She can have several regressed behaviors and some child-like interests. Regarding Dissociative Disorder:? Patient has episodes of depersonalization and derealization which the typically arise when triggered and during which time she will feel detached from herself, from her body and feel as if things are unreal and dream like, with out a sense of time; after they conclude and she is again in the present, she can be upset about some behaviors she engaged in during the dissociate period once made aware. Not BPD: Regarding past references to borderline personality disorder, Learning And Development Administrator and team agree there have been no axis II traits expressed throughout her time in the hospital; none could be cleaned from records No psychotic illness: no psychotic symptoms past or present Reason for contiued inpatient stay Substantial Risk for: harm to self, inability to function and rapid decompensation Time Spent With Patient Time: Total time managing care of this patient today ____ minutes.
[2023-01-19 18:31] VITALS: BP 127/65; PULSE 110; RESP 14; TEMP 36.1
--- NOTE | 2023-01-19 18:33 | PC.NURSE ---
PT has four circular abrasions on right forearm secondary to SIB on 01/18/2023. PT can not tolerate adhesive. Triple antibiotic ointment and non adherent gauze applied.
[2023-01-19] MEDS: Ziprasidone Mesylate 20 MG VIAL IM (22:47)
[2023-01-19] MEDS: LORazepam 2 MG/ML VIAL IM (22:49)
[2023-01-19 22:55] VITALS: BP 136/75; PULSE 125; RESP 20; TEMP 38.4
[2023-01-19 23:10] VITALS: BP 122/73; PULSE 107; RESP 18; TEMP 37.7
[2023-01-19 23:20] VITALS: BP 115/64; PULSE 107; RESP 18; TEMP 37.2
--- NOTE | 2023-01-19 23:30 | PC.NURSE ---
Pt was upset after another peer was redirected to stop head banging. Pt became upset and refused all HS medications. Pt began walking up and down the hallway punching zamora and ripping down signs. Pt began ripped down emergency exit signs down. Pt required a medication restraint, Ativan 2mg 23:47 in LT deltoid. 20mg Geodon in RT deltoid. Dr Lan was notified and assessed pt around 23:15. Pt allowed vitals signs to be taken. Pt remained in behavioral control and was released from restraint chair. Security was called to unit to help.
[2023-01-20] MEDS: Sennosides/Docusate Sodium TABLET 2 TAB PO ×3 (00:11→22:40)
[2023-01-20] MEDS: diphenhydrAMINE HCL 25 MG CAPSULE 50 MG PO ×2 (00:11→22:43)
[2023-01-20] MEDS: cloNIDine HCL 0.1 MG TABLET PO ×2 (00:12→22:43)
[2023-01-20] MEDS: OLANZapine 10 MG TABLET 20 MG PO ×2 (00:13→22:41)
[2023-01-20] MEDS: Divalproex Sodium Sprinkles 125 MG CAP.DR.SPR 1250 MG PO ×3 (00:15→22:40)
[2023-01-20] MEDS: traZODone HCL 100 MG TABLET PO ×2 (00:17→22:40)
[2023-01-20] MEDS: Famotidine 20 MG TABLET PO ×2 (00:18→22:40)
[2023-01-20] MEDS: Multivitamin TABLET 1 TAB PO ×2 (00:18→22:40)
--- NOTE | 2023-01-20 00:20 | PC.NURSE ---
Patient had initially refused her HS medications, but after receiving IM medication as a restraint, she took the HS meds willingly.
[2023-01-20 08:40] VITALS: BP 90/53; PULSE 66; RESP 16; TEMP 36.9; O2SAT 95
[2023-01-20] MEDS: Lactulose 20 GM/30 ML SOLUTION PO (08:45)
[2023-01-20] MEDS: FLUoxetine HCl 20 MG CAPSULE 60 MG PO (08:47)
--- NOTE | 2023-01-20 13:21 | HO.PSYCHPN ---
Subjective Subjective Date of Service: 01/20/23 Reason For Visit: Mood Dysregulation Interim History: at 1030 pm last night pt ripped exit sig out of ceiling along with several ceiling tiles; pt agitated and out of control; chemical restraint at 1035. tolerated medication without ill effects. Pt sleeping this am. Medication Compliance: Yes Side effects from medications: No Attending Groups: No Review of Systems Acute medical concerns: No Medical Review of Systems: unchanged Diagnostics Vital Signs (24Hr): Vital Signs - 24 hr 01/19/23 14:11 01/19/23 18:31 01/19/23 22:55 Temperature 97 F 101.1 F H Pulse Rate 110 H 125 H Respiratory Rate 14 20 Blood Pressure 90/56 L 127/65 136/75 Pulse Oximetry Oxygen Delivery Method 01/19/23 23:10 01/19/23 23:20 01/20/23 08:40 Temperature 100 F 99.0 F 98.4 F Pulse Rate 107 H 107 H 66 Respiratory Rate 18 18 16 Blood Pressure 122/73 115/64 90/53 L Pulse Oximetry 95 Oxygen Delivery Method Room Air BMI result Body Mass Index 38.1 Labs 12/27/22 20:00 12/27/22 19:59 Imaging Radiology Impressions: ITS Impressions Hand X-Ray 01/18/23 23:35 IMPRESSION: No acute fracture or dislocation of either hand. Hand X-Ray 01/18/23 23:35 IMPRESSION: No acute fracture or dislocation of either hand. Medications Medications Current Medications Acetaminophen (Acetaminophen 325 Mg Tablet) 650 mg PO Q6H PRN PRN Reason: Headache/Pain Mild Scale (1-3) Al Hydroxide/Mg Hydroxide (Magnesium Hydrox/Alum Hydrox 30 Ml Oral.Susp) 30 ml PO Q6H PRN PRN Reason: Heartburn/Nausea Last Admin: 12/31/22 08:29 Dose: 30 ml Alprazolam (Alprazolam 0.5 Mg Tablet) 0.5 mg PO TID PRN PRN Reason: Anxiety Last Admin: 01/18/23 00:21 Dose: 0.5 mg Clonidine HCl (Clonidine Hcl 0.1 Mg Tablet) 0.1 mg PO BID@1400,2100 [facility]; Protocol Last Admin: 01/20/23 00:12 Dose: 0.1 mg Diphenhydramine HCl (Diphenhydramine Hcl 25 Mg Capsule) 50 mg PO BEDTIME [facility] Last Admin: 01/20/23 00:11 Dose: 50 mg Divalproex Sodium (Divalproex Sodium Sprinkles 125 Mg ) 1,250 mg PO BID [facility] Last Admin: 01/20/23 09:25 Dose: 1,250 mg Famotidine (Famotidine 20 Mg Tablet) 20 mg PO BEDTIME [facility] Last Admin: 01/20/23 00:18 Dose: 20 mg Famotidine (Famotidine 20 Mg Tablet) 20 mg PO DAILY PRN PRN Reason: GERD Fluoxetine HCl (Fluoxetine Hcl 20 Mg Capsule) 60 mg PO DAILY [facility] Last Admin: 01/20/23 08:47 Dose: 60 mg Furosemide (Furosemide 20 Mg Tablet) 20 mg PO BID@0900,1700 [facility]; Protocol Last Admin: 01/20/23 08:52 Dose: Not Given Lactulose (Lactulose 20 Gm/30 Ml Solution) 20 gm PO DAILY [facility] Last Admin: 01/20/23 08:45 Dose: 20 gm Loratadine (Loratadine 10 Mg Tablet) 10 mg PO DAILY PRN PRN Reason: congestion Magnesium Hydroxide (Milk Of Magnesia 30 Ml Oral.Susp) 30 ml PO DAILY [facility] Last Admin: 01/20/23 09:42 Dose: Not Given Melatonin (Melatonin 3 Mg Tablet) 3 mg PO BEDTIME PRN PRN Reason: insomnia Last Admin: 01/17/23 22:51 Dose: 3 mg Multivitamins/Vitamin C (Multivitamin Tablet) 1 tab PO BEDTIME [facility] Last Admin: 01/20/23 00:18 Dose: 1 tab Naproxen (Naproxen 500 Mg Tablet) 500 mg PO Q12H PRN PRN Reason: mild pain Last Admin: 01/15/23 15:47 Dose: 500 mg Olanzapine (Olanzapine 10 Mg Tablet) 20 mg PO BEDTIME [facility] Last Admin: 01/20/23 00:13 Dose: 20 mg Senna/Docusate Sodium (Sennosides/Docusate Sodium Tablet) 2 tab PO BID [facility] Last Admin: 01/20/23 08:45 Dose: 2 tab Trazodone HCl (Trazodone Hcl 50 Mg Tablet) 50 mg PO BEDTIME PRN PRN Reason: insomnia Last Admin: 01/17/23 22:51 Dose: 50 mg Trazodone HCl (Trazodone Hcl 100 Mg Tablet) 100 mg PO BEDTIME [facility] Last Admin: 01/20/23 00:17 Dose: 100 mg Ziprasidone (Ziprasidone 20 Mg Capsule) 20 mg PO BID PRN PRN Reason: Agitation Last Admin: 01/14/23 16:49 Dose: 20 mg Allergies Allergies Allergy/AdvReac Type Severity Reaction Status Date / Time chlorpromazine Allergy Anaphylaxis Verified 12/27/22 16:37 [From Thorazine] nut - unspecified Allergy Anxiety Verified 12/27/22 16:37 haloperidol [From Haldol] AdvReac Agitated Verified 12/27/22 16:37 lithium AdvReac Hives Verified 12/27/22 16:37 Assessment & Plan Assessment & Plan (1) Autism: Status: Suspected Code(s): F84.0 - Autistic disorder (2) PTSD (post-traumatic stress disorder): Status: Suspected Code(s): F43.10 - Post-traumatic stress disorder, unspecified (3) Intermittent explosive disorder: Status: Acute Code(s): F63.81 - Intermittent explosive disorder (4) CHARLES positive: Status: Acute Code(s): R76.8 - Other specified abnormal immunological findings in serum (5) Chronic restrictive lung disease: Status: Acute Code(s): J98.4 - Other disorders of lung (6) Peripheral edema: Status: Acute Code(s): R60.9 - Edema, unspecified (7) Amenorrhea: Status: Acute Code(s): N91.2 - Amenorrhea, unspecified Plan HPI: Patient is a bright, kind 22-year-old female, well known to this service, with history of Autism, PTSD recently discharged from on 12/25/2022 (and recently dc'd from [facility] after 5 years) who re-presents 2 days later for resurgence of suicidal ideation, dissociative episode and having run out during therapy session, into the street trying to hit by traffic and then eloping again from crisis again trying to get hit by oncoming cars. This has happened after ever discharge since coming to [facility]. Patient reports that day she left she had the intrusive thought that I am gonna screw this up again which just built and built until it overwhelmed her. Patient says she tried very hard to resist self-harm but the constant intrusive thought was unrelenting. She reports that on the way into the therapist building she got triggered as setting and some other people around [facility]; already being on edge, this launched her into a full-blown panic attack; she dissociated and ran into the street wanting to . Patient says she just cannot seem to control. She also worries that she is unsafe living at her grandmother's, whom she loves dearly, because her grandmother is not able to sense when patient is starting to unravel and cannot preemptively help ground her and prevent dysregulated/dissociate of episode; patient says that sometimes she is able to alert her grandmother that she is headed this direction but many time she is not. Patient says she needs to live in a place with staff who were trained who can help divert her from such episodes. Passive SI remains but none active. Patient does not want to and wants to continue with treatment therapy. It is unclear if patient meets full criteria for OCD diagnosis however she has OCD like symptoms and will thus increase Prozac which has thus far been well tolerated. Hospital course: 12/30 stabilizing; continue current treatment plan 12/31 patient continues to stabilize; no change in medications at this time however will likely seek to reduce possibly Depakote her Zyprexa level; may increase Prozac for PTSD/OCD like symptoms 01/01 stabilizing 01/02 tough night, needing geodon prns; asked to change depakote to sprinkles and maybe lower dose since tired in daytime and pt may be stable at lower dose 01/03 will add short trial of Lasix 20mg BID for continued lower limb edema (Jamal stockings tried and ripped) 01/06/23- Continue current plan and regime 01/07 continue current treatment plan for now 01/09 patient is significantly more depressed, hopeless and wishing she were . Situational stressors are significantly contributory including limited options for disposition and stressors on the unit; however patient is also reflecting on her life, her chronic symptoms and long history of living in institutions, creating a hopelessness that her things will get better. It is possible that changing Depakote formulation to DR could be contributory, however theoretically it is the same total daily dose. -patient has been in an institution more time the not since 6 years old and has spent the last 5 years in a [facility]; it was likely an unreasonable expectation that she would be able to immediately discharge and be successful in community. Rather acclimation will be a gradual process. At this time will increase Prozac to 60 mg to see if this can help. Currently patient is depressed and suicidal and in imminent risk of harm to self if discharged. 01/07 for patient a little bit improved, depression a little lower possibly due to increased Prozac 01/12/23 Continue current plan. 01/13/23 Continue current plan. 01/14 patient remains depressed but less so and she denies SI bilateral lower limb edema has decreased since getting her menses. Discussed disposition plans with social insurance adviser and reviewed possible options and concerns from both [facility] and [facility]; currently recommendation from [facility] is for patient to undergo evaluation by Dr. Caputo; team agrees it will help to organize a joint meeting with both [facility] in [facility] to clarify and discussed situation and options. 01/15 bilateral hand tremor; patient reports it is chronic and comes and goes but a little worse today 01/16 continue current treatment plan 3.31 depressed; agrees to start lactulose [employer] Operator called Lou Mitchell, supervising rehabilitation caseworker at [facility] and discussed treatment; Lou explained potentially collaborative involvement with [facility] and that patient was accepted to [facility] and approved for virtual assessment. 01/19/ Continue current treatment plan 01/20 continue treatment plan PLAN: *Started Lasix 20mg BID on 01/03 for b/l lower limb edema Bilateral lower limbs with minimal improvement; right hand more swollen than left 1. ASD/PTSD/intermittent explosive disorder: CHANGED to Depakote sprinkles DR 1200mg bId (roughly equiv to Depakote ER 2500 mg q.h.s ...) Continue Zyprexa 20 mg q.h.s. (may very well tolerate lower dose as overseen by outpatient provider) Increased Prozac to 60mg (increased during this admission) Continue Xanax 0.5 mg t.i.d. p.r.n. for agitation; may give alone or with Geodon Continue Geodon 20 mg b.i.d. p.r.n. for agitation (*pt may get IM Geodon if requested for faster action) Continue Clonidine 0.1 mg t.i.d. Continue Trazodone 100 mg q.h.s. DC'd zyprexa 5mg in afternoon DC'd perphenazine (patient has no history of psychotic illness and very likely does not need this medication) Chronic conditions: 2. CHARLES positive appointment made with Rheumatology February 20 -daytime fatigue; b/l peripheral edema; mild dyspnea on exertion Discussed with Dr. Hamilton who recommends and following labs ordered: -Urine protein creatinine ratio -Rheumatoid factor -CCP antibody 3. Bilateral peripheral edema (lower/upper extrem):? Medication side effect (Zyprexa/Depakote)?? vs organic origin some reduction w/ lowering of medications Zyprexa and depakote r/u autoimune 4. Complaint of chronic struggles with inspiration: lungs CTA; CXR unremarkable Pulmonary function test: results reviewed, discussed with Dr. Melchor -elevated CHARLES and abnromal PFTs with a mild restriction with a mild diffusion impairment. -could be explained by her elevated BMI. -at this time dr. Melchor reports given lab work, at this time it does not look like she has lupus nor sjogrens nor scleroderma. Her cxr was good. needs a sleep study as an out pt (daytime drowsiness bringing up the possibility of obstructive sleep apnea) does not need an inpt ct scan but should f/up with outpt pulmonary and rheumatology. -in further discussion, Dr. Melchor agrees that CHARLES needs further evaluation, 5. Amenorrhea: Patient did get her menses on 01/11 Patient did have menses a few years ago while on control; has not had it since control discontinued about 2 years ago Labs: mostly WNL; will f/u with PCP/environmental compliance inspector PSYCHIATRIC IMPRESSION/DIAGNOSIS:. Impression: Patient is a fun, intelligent, cooperative and friendly person. When she gets triggered by something she can decompensate severely, dissociate and become physically aggressive.? Patient is now diagnosed with ASD, PTSD, and intermittent explosive disorder.? From [facility], she carried the diagnosis of Schizoaffective disorder and mention of borderline personality disorder.? Both of these have been ruled out.? 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 She is linear, logical, articulate, insightful and organized in her thinking; she is organized in her behaviors.? Patient can have intrusive thoughts but only when triggered and this does not seem to be OCD.? She can have some rigid thinking in line with ASD.? Many of her dysregulated moments come from her PTSD being exacerbated.? Patient has well tolerated decrease of Zyprexa, decrease of Depakote and discontinuation of perphenazine. Primary dx: ASD. Patient's father and grandmother maintain that she met her milestones in childhood. 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 During childhood she [place] [facility] [place], treatment center typically for people with autism; in [place] when at [facility], she carried a dx of ASD.? As observed on the unit, Patient frequently rocks back and forth, when standing or sitting, while talking to others or calming herself down.? Patient does not have a sense of a person's personal space and will get much to close to a person when talking; she is redirectable and apologizes but she is unaware she is doing it and does not get verbal cues when conversation participant is backing away or trying to end a conversation; though redirectable, she will again get too close, again unaware.? In the milieu with peers, While she will sometimes spend time in the vicinity of others, she is mostly alongside people and not directly interacting with them.? That said, she will directly interact with staff. Patient does make eye contact, however she stares the entire time she is engaged. ? She can have a logical conversation, however she is concrete Patient has a blunted affect and though she can smile and laugh, she is otherwise expressionless with blunted affect. Patient has in flexibility regarding food when it is not as expected patient can get severely dysregulated Patient has some hypo-reactivity to loud noises and crowds of people. Conversely, She does get jokes, even subtle ones. Symptoms have clearly made life functioning extremely difficult.? It is unclear if patient has had neuropsych testing. She did spend time at [facility]. Regarding PTSD: Patient has a history of trauma from both childhood experiences, as well as trauma that occurred while on inpatient unit at [facility] and [place].? She has also been institutionalized since a young age, away from her mother and father, feeling abandoned.? She can have several regressed behaviors and some child-like interests. Regarding Dissociative Disorder:? Patient has episodes of depersonalization and derealization which the typically arise when triggered and during which time she will feel detached from herself, from her body and feel as if things are unreal and dream like, with out a sense of time; after they conclude and she is again in the present, she can be upset about some behaviors she engaged in during the dissociate period once made aware. Not BPD: Regarding past references to borderline personality disorder, Cone Machine Operator and team agree there have been no axis II traits expressed throughout her time in the hospital; none could be cleaned from records No psychotic illness: no psychotic symptoms past or present Reason for contiued inpatient stay Substantial Risk for: harm to self, harm to others, inability to function and rapid decompensation Time Spent With Patient Time: Total time managing care of this patient today ____ minutes.
[2023-01-20 15:29] VITALS: BP 106/62
[2023-01-20 18:10] VITALS: BP 120/70; PULSE 85; RESP 14; TEMP 36.6
[2023-01-20] MEDS: Furosemide 20 MG TABLET PO (18:11)
[2023-01-20] MEDS: LORazepam 2 MG/ML VIAL IM (21:00)
[2023-01-20] MEDS: Ziprasidone Mesylate 20 MG VIAL 10 MG IM (21:00)
--- NOTE | 2023-01-20 22:16 | PC.NURSE ---
Addendum entered by Kenya Westbrook RN 01/20/23 23:32: PT received 10mg of Geodon IM, not 20mg as originally noted. Original Note: At approximately 20:40 this nurse was exiting another patient's room and saw this pt punching down an exit sign from the ceiling. PT was verbally redirected multiple times unsuccessfully. Security was called, restraint orders obtained. PT was placed in restraint chair, 2mg of Ativan and 20mg of Geodon were given @ approximately 20:50 in the right deltoid. (left unavailable due to pt clothing and position) PT remained in the the restraint chair unitl 21:29 without incidient. PT did allow one set of vital signs. Hospitalist notified and examined patient. PT resting in group room watching television at this time. No complaints of pain or distress at this time.
[2023-01-20 22:40] VITALS: BP 134/74; PULSE 88; RESP 14
[2023-01-21 08:25] VITALS: BP 91/50; PULSE 71; RESP 16; TEMP 35.6; O2SAT 100
--- NOTE | 2023-01-21 10:01 | P.PNPSI_ITS ---
Subjective Subjective Date of Service: 01/21/23 Reason For Visit: Mood Dysregulation Interim History: met with pt and SW; discussed in team; reviewed weekend notes pt talked about how frustrated she's feeling being on the unit; pt reports feeling stuck and depressed and upset with herself for getting so dysregulated; she is not sure why she had spells over weekend, but that seeing exit sign was triggering and could not get it out of her head the thought of pulling it down (in hindsight wondered if trigger was because she can't leave). Pt says when triggered, if she can not calm herself down, she starts to go into space...out of thought... Pt says she very much wants to be off the unit anywhere. discussed medications with patient who is open to changes Mental Status Exam Mental Status Exam Narrative: Pt is alert and oriented; behavior is cooperative, calm; dressed in casual attire, mood is described as depressed and affect congruent, intermittently d owncast; eye contact appropriate; Speech is regular rate, volume, prosody; intermittent psychomotor agitaiton present; thought process is organized and goal directed; Thought content is on trying not to feel hopeless, wanting off unit; past trauma, treatment; otherwise pertinent to relevant topics and without any delusional content, paranoid ideations or grandiosity; no SI; no HI. No AVH and there is no evidence of perceptual disturbance.. Patients insight and judgment are impaired but at baseline. Diagnostics Vital Signs (24Hr): Vital Signs - 24 hr 01/20/23 15:29 01/20/23 18:10 01/20/23 22:40 Temperature 98 F Pulse Rate 85 88 Respiratory Rate 14 14 Blood Pressure 106/62 120/70 134/74 Pulse Oximetry Oxygen Delivery Method 01/21/23 08:25 Temperature 96.1 F L Pulse Rate 71 Respiratory Rate 16 Blood Pressure 91/50 L Pulse Oximetry 100 Oxygen Delivery Method Room Air BMI result Body Mass Index 38.1 Labs 12/27/22 20:00 12/27/22 19:59 Imaging Radiology Impressions: ITS Impressions Hand X-Ray 01/18/23 23:35 IMPRESSION: No acute fracture or dislocation of either hand. Hand X-Ray 01/18/23 23:35 IMPRESSION: No acute fracture or dislocation of either hand. Medications Medications Current Medications Acetaminophen (Acetaminophen 325 Mg Tablet) 650 mg PO Q6H PRN PRN Reason: Headache/Pain Mild Scale (1-3) Al Hydroxide/Mg Hydroxide (Magnesium Hydrox/Alum Hydrox 30 Ml Oral.Susp) 30 ml PO Q6H PRN PRN Reason: Heartburn/Nausea Last Admin: 12/31/22 08:29 Dose: 30 ml Alprazolam (Alprazolam 0.5 Mg Tablet) 0.5 mg PO TID PRN PRN Reason: Anxiety Last Admin: 01/18/23 00:21 Dose: 0.5 mg Clonidine HCl (Clonidine Hcl 0.1 Mg Tablet) 0.1 mg PO BID@1400,2100 [facility]; Pr otocol Last Admin: 01/20/23 22:43 Dose: 0.1 mg Diphenhydramine HCl (Diphenhydramine Hcl 25 Mg Capsule) 50 mg PO BEDTIME [facility] Last Admin: 01/20/23 22:43 Dose: 50 mg Divalproex Sodium (Divalproex Sodium Sprinkles 125 Mg ) 1,250 mg PO BID [facility] Last Admin: 01/20/23 22:40 Dose: 1,250 mg Famotidine (Famotidine 20 Mg Tablet) 20 mg PO BEDTIME [facility] Last Admin: 01/20/23 22:40 Dose: 20 mg Famotidine (Famotidine 20 Mg Tablet) 20 mg PO DAILY PRN PRN Reason: GERD Fluoxetine HCl (Fluoxetine Hcl 20 Mg Capsule) 60 mg PO DAILY [facility] Last Admin: 01/20/23 08:47 Dose: 60 mg Furosemide (Furosemide 20 Mg Tablet) 20 mg PO BID@0900,1700 [facility]; Protocol Last Admin: 01/20/23 18:11 Dose: 20 mg Lactulose (Lactulose 20 Gm/30 Ml Solution) 20 gm PO DAILY [facility] Last Admin: 01/20/23 08:45 Dose: 20 gm Loratadine (Loratadine 10 Mg Tablet) 10 mg PO DAILY PRN PRN Reason: congestion Magnesium Hydroxide (Milk Of Magnesia 30 Ml Oral.Susp) 30 ml PO DAILY [facility] Last Admin: 01/20/23 09:42 Dose: Not Given Melatonin (Melatonin 3 Mg Tablet) 3 mg PO BEDTIME PRN PRN Reason: insomnia Last Admin: 01/17/23 22:51 Dose: 3 mg Multivitamins/Vitamin C (Multivitamin Tablet) 1 tab PO BEDTIME [facility] Last Admin: 01/20/23 22:40 Dose: 1 tab Naproxen (Naproxen 500 Mg Tablet) 500 mg PO Q12H PRN PRN Reason: mild pain Last Admin: 01/15/23 15:47 Dose: 500 mg Olanzapine (Olanzapine 10 Mg Tablet) 20 mg PO BEDTIME [facility] Last Admin: 01/20/23 22:41 Dose: 20 mg Senna/Docusate Sodium (Sennosides/Docusate Sodium Tablet) 2 tab PO BID [facility] Last Admin: 01/20/23 22:40 Dose: 2 tab Trazodone HCl (Trazodone Hcl 50 Mg Tablet) 50 mg PO BEDTIME PRN PRN Reason: insomnia Last Admin: 01/17/23 22:51 Dose: 50 mg Trazodone HCl (Trazodone Hcl 100 Mg Tablet) 100 mg PO BEDTIME [facility] Last Admin: 01/20/23 22:40 Dose: 100 mg Ziprasidone (Ziprasidone 20 Mg Capsule) 20 mg PO BID PRN PRN Reason: Agitation Last Admin: 01/14/23 16:49 Dose: 20 mg Allergies Allergies Allergy/AdvReac Type Severity Reaction Status Date / Time chlorpromazine Allergy Anaphylaxis Verified 12/27/22 16:37 [From Thorazine] nut - unspecified Allergy Anxiety Verified 12/27/22 16:37 haloperidol [From Haldol] AdvReac Agitated Verified 12/27/22 16:37 lithium AdvReac Hives Verified 12/27/22 16:37 Assessment & Plan Assessment & Plan (1) Autism: Status: Suspected Code(s): F84.0 - Autistic disorder (2) PTSD (post-traumatic stress disorder): Status: Suspected Code(s): F43.10 - Post-traumatic stress disorder, unspecified (3) Intermittent explosive disorder: Status: Acute Code(s): F63.81 - Intermittent explosive disorder (4) CHARLES positive: Status: Acute Code(s): R76.8 - Other specified abnormal immunological findings in serum (5) Chronic restrictive lung disease: Status: Acute Code(s): J98.4 - Other disorders of lung (6) Peripheral edema: Status: Acute Code(s): R60.9 - Edema, unspecified (7) Amenorrhea: Status: Acute Code(s): N91.2 - Amenorrhea, unspecified Plan HPI: Patient is a bright, kind 22-year-old female, well known to this service, with history of Autism, PTSD recently discharged from on 12/25/2022 (and recently d c'd from [facility] after 5 years) who re-presents 2 days later for resurgence of suicidal ideation, dissociative episode and having run out during therapy session, into the street trying to hit by traffic and then eloping again from crisis again trying to get hit by oncoming cars. This has happened after ever discharge since coming to [facility]. Patient reports that day she left she had the intrusive thought that I am gonna screw this up again which just built and built until it overwhelmed her. Patient says she tried very hard to resist self-harm but the constant intrusive thought was unrelenting. She reports that on the way into the therapist building she got triggered as setting and some other people around reminded her of [facility]; already being on edge, this launched her into a full-blown panic attack; she dissociated and ran into the street wanting to . Patient says she just cannot seem to control. She also worries that she is unsafe living at her grandmother's, whom she loves dearly, because her grandmother is not able to sense when patient is starting to unravel and cannot preemptively help ground her and prevent dysregulated/dissociate of episode; patient says that sometimes she is able to alert her grandmother that she is headed this direction but many time she is not. Patient says she needs to live in a place with staff who were trained who can help divert her from such episodes. Passive SI remains but none active. Patient does not want to and wants to continue with treatment therapy. It is unclear if patient meets full criteria for OCD diagnosis however she has OCD like symptoms and will thus increase Prozac which has thus far been well tolerated. Hospital course: 12/30 stabilizing; continue current treatment plan 12/31 patient continues to stabilize; no change in medications at this time however will likely seek to reduce possibly Depakote her Zyprexa level; may increase Prozac for PTSD/OCD like symptoms 01/01 stabilizing 01/02 tough night, needing geodon prns; asked to change depakote to sprinkles and maybe lower dose since tired in daytime and pt may be stable at lower dose 01/03 will add short trial of Lasix 20mg BID for continued lower limb edema (Jamal stockings tried and ripped) 01/06/23- Continue current plan and regime 01/07 continue current treatment plan for now 01/09 patient is significantly more depressed, hopeless and wishing she were . Situational stressors are significantly contributory including limited options for disposition and stressors on the unit; however patient is also reflecting on her life, her chronic symptoms and long history of living in institutions, creating a hopelessness that her things will get better. It is possible that changing Depakote formulation to DR could be contributory, however theoretically it is the same total daily dose. -patient has been in an institution more time the not since 6 years old and has spent the last 5 years in a [facility]; it was likely an unreasonable expectation that she would be able to immediately discharge and be successful in community. Rather acclimation will be a gradual process. At this time will increase Prozac to 60 mg to see if this can help. Currently patient is depressed and suicidal and in imminent risk of harm to self if discharged. 01/07 for patient a little bit improved, depression a little lower possibly due to increased Prozac 01/12/23 Continue current plan. 01/13/23 Continue current plan. 01/14 patient remains depressed but less so and she denies SI bilateral lower limb edema has decreased since getting her menses. Discussed disposition plans with social media assistant and reviewed possible options and concerns from both DDS and DM; currently recommendation from DDS is for patient to undergo evaluation by Dr. Caputo; team agrees it will help to organize a joint meeting with both DDS in [facility] to clarify and discussed situation and options. 01/15 bilateral hand tremor; patient reports it is chronic and comes and goes but a little worse today 01/16 continue current treatment plan 3.31 depressed; agrees to start lactulose Dental Lab Technician called Lou Mitchell, supervising director of casework services at [facility] and discussed treatment; Lou explained potentially collaborative involvement with [facility] and that patient was accepted to [facility] and approved for virtual assessment. 4/1 to 4/2 multiple restraints over weekend 4/ pt dysregulated over weekend; continues to seem more likely situational rather than due to past med changes; will consult w/ collegue for med suggestions. Currently, pt continues to need structured environment PLAN: *Started Lasix 20mg BID on 01/03 for b/l lower limb edema Bilateral lower limbs with minimal improvement; right hand more swollen than left 1. ASD/PTSD/intermittent explosive disorder: CHANGED to Depakote sprinkles DR 1200mg bId (roughly equiv to Depakote ER 2500 mg q.h.s ...) Continue Zyprexa 20 mg q.h.s. (may very well tolerate lower dose as overseen by outpatient provider) Increased Prozac to 60mg (increased during this admission) Continue Xanax 0.5 mg t.i.d. p.r.n. for agitation; may give alone or with Geodon Continue Geodon 20 mg b.i.d. p.r.n. for agitation (*pt may get IM Geodon if requested for faster action) Continue Clonidine 0.1 mg t.i.d. Continue Trazodone 100 mg q.h.s. DC'd zyprexa 5mg in afternoon DC'd perphenazine (patient has no history of psychotic illness and very likely does not need this medication) Chronic conditions: 2. CHARLES positive appointment made with Rheumatology February 20 -daytime fatigue; b/l peripheral edema; mild dyspnea on exertion Discussed with Dr. Hamilton who recommends and following labs ordered: -Urine protein creatinine ratio -Rheumatoid factor -CCP antibody 3. Bilateral peripheral edema (lower/upper extrem):? Medication side effect (Zyprexa/Depakote)?? vs organic origin some reduction w/ lowering of medications Zyprexa and depakote r/u autoimune 4. Complaint of chronic struggles with inspiration: lungs CTA; CXR unremarkable Pulmonary function test: results reviewed, discussed with Dr. Melchor -elevated CHARLES and abnromal PFTs with a mild restriction with a mild diffusion impairment. -could be explained by her elevated BMI. -at this time dr. Melchor reports given lab work, at this time it does not look like she has lupus nor sjogrens nor scleroderma. Her cxr was good. needs a sleep study as an out pt (daytime drowsiness bringing up the possibility of obstructive sleep apnea) does not need an inpt ct scan but should f/up with outpt pulmonary and rheumatology. -in further discussion, Dr. Melchor agrees that CHARLES needs further evaluation, 5. Amenorrhea: Patient did get her menses on 01/11 Patient did have menses a few years ago while on control; has not had it since control discontinued about 2 years ago Labs: mostly WNL; will f/u with PCP/burial agent PSYCHIATRIC IMPRESSION/DIAGNOSIS:. Impression: Patient is a fun, intelligent, cooperative and friendly person. When she gets triggered by something she can decompensate severely, dissociate and become physically aggressive.? Patient is now diagnosed with ASD, PTSD, and intermittent explosive disorder.? From [facility], she carried the diagnosis of Schizoaffective disorder and mention of borderline personality disorder.? Both of these have been ruled out.? 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 She is linear, logical, articulate, insightful and organized in her thinking; she is organized in her behaviors.? Patient can have intrusive thoughts but only when triggered and this does not seem to be OCD.? She can have some rigid thinking in line with ASD.? Many of her dysregulated moments come from her PTSD being exacerbated.? Patient has well tolerated decrease of Zyprexa, decrease of Depakote and discontinuation of perphenazine. Primary dx: ASD. Patient's father and grandmother maintain that she met her milestones in childhood. 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 During childhood she attended [facility] in [place], treatment center typically for people with autism; in [place] when at [facility], she carried a dx of ASD.? As observed on the unit, Patient frequently rocks back and forth, when standing or sitting, while talking to others or calming herself down.? Patient does not have a sense of a person's personal space and will get much to close to a person when talking; she is redirectable and apologizes but she is unaware she is doing it and does not get verbal cues when conversation participant is backing away or trying to end a conversation; though redirectable, she will again get too close, again unaware.? In the milieu with peers, While she will sometimes spend time in the vicinity of others, she is mostly alongside people and not directly interacting with them.? That said, she will directly interact with staff. Patient does make eye contact, however she stares the entire time she is engaged. ? She can have a logical conversation, however she is concrete Patient has a blunted affect and though she can smile and laugh, she is otherwise expressionless with blunted affect. Patient has in flexibility regarding food when it is not as expected patient can get severely dysregulated Patient has some hypo-reactivity to loud noises and crowds of people. Conversely, She does get jokes, even subtle ones. Symptoms have clearly made life functioning extremely difficult.? It is unclear if patient has had neuropsych testing. She did spend time at [facility]. Regarding PTSD: Patient has a history of trauma from both childhood experiences, as well as trauma that occurred while on inpatient unit at [facility] and [place].? She has also been institutionalized since a young age, away from her mother and father, feeling abandoned.? She can have several regressed behaviors and some child-like interests. Regarding Dissociative Disorder:? Patient has episodes of depersonalization and derealization which the typically arise when triggered and during which time she will feel detached from herself, from her body and feel as if things are unreal and dream like, with out a sense of time; after they conclude and she is again i n the present, she can be upset about some behaviors she engaged in during the dissociate period once made aware. Not BPD: Regarding past references to borderline personality disorder, Dental Lab Technician and team agree there have been no axis II traits expressed throughout her time in the hospital; none could be cleaned from records No psychotic illness: no psychotic symptoms past or present Patient educated on: diagnosis and medication risk/benefits Informed Consent: understands Reason for contiued inpatient stay Substantial Risk for: inability to function Time Spent With Patient Time: Total time managing care of this patient today ____ minutes.
[2023-01-21] MEDS: Divalproex Sodium Sprinkles 125 MG CAP.DR.SPR 1250 MG PO ×2 (13:18→20:33)
[2023-01-21] MEDS: Furosemide 20 MG TABLET PO ×2 (13:18→16:10)
[2023-01-21] MEDS: FLUoxetine HCl 20 MG CAPSULE 60 MG PO (13:19)
[2023-01-21] MEDS: Sennosides/Docusate Sodium TABLET 2 TAB PO ×2 (13:19→20:33)
[2023-01-21] MEDS: Propranolol HCL 10 MG TABLET 5 MG PO (14:46)
[2023-01-21] MEDS: Ziprasidone 20 MG CAPSULE PO (16:10)
[2023-01-21 18:00] VITALS: BP 131/78; PULSE 88; TEMP 37.2; O2SAT 99
[2023-01-21] MEDS: ALPRAZolam 0.5 MG TABLET PO (19:43)
[2023-01-21] MEDS: OLANZapine 10 MG TABLET 20 MG PO (20:33)
[2023-01-21] MEDS: diphenhydrAMINE HCL 25 MG CAPSULE 50 MG PO (20:34)
[2023-01-21] MEDS: Multivitamin TABLET 1 TAB PO (20:34)
[2023-01-21] MEDS: Famotidine 20 MG TABLET PO (20:34)
[2023-01-21] MEDS: traZODone HCL 100 MG TABLET PO (20:34)
[2023-01-21] MEDS: cloNIDine HCL 0.1 MG TABLET PO (20:34)
--- NOTE | 2023-01-21 22:37 | PC.NURSE ---
pt pulled down a paper towel dispenser during an outburst. pt was redirected.
[2023-01-22 09:47] VITALS: BP 131/75; PULSE 104; RESP 14; TEMP 36.3
[2023-01-22] MEDS: Divalproex Sodium Sprinkles 125 MG CAP.DR.SPR 1250 MG PO ×2 (09:48→22:05)
[2023-01-22] MEDS: FLUoxetine HCl 20 MG CAPSULE 60 MG PO (09:49)
[2023-01-22] MEDS: Sennosides/Docusate Sodium TABLET 2 TAB PO ×2 (09:49→22:06)
[2023-01-22] MEDS: Furosemide 20 MG TABLET PO ×2 (09:49→18:03)
--- NOTE | 2023-01-22 12:39 | HO.PSYCHPN ---
Subjective Subjective Date of Service: 01/22/23 Reason For Visit: Mood Dysregulation Interim History: Patient was again triggered last night about of angry frustration ripped off the paper towel dispenser; she was however able to calm herself down and did not require restraint. Patient remains depressed and remorseful about losing control but unable to stop herself at times. Patient said she feels so depressed she just wants to sleep. Supervisor Mold Yard discussed coping strategies for depression and how sleeping will not help it resolve only postpone the feelings. Discussed options and currently team agrees that patient is not safe to return to the community without being in a structured environment. At this time patient's mood dysregulation continues to seem more situational and unlikely due to change with medication adjustment, however Supervisor Mold Yard and Dr. Elaine reviewed medications and will continue to discuss options. Patient showed flex o writer operator some lesions on left arm after restraint; no cellulitis however will start bacitracin -Met with patient; discussed with team; meeting with nursing spine supervisor, medical detail representative, social media executive administrative staff regarding disposition and behavioral plan -discussed case with hospitalist VICTOR MANUEL who examine patient's bilateral lower limbs and agrees that edema is significantly decreased and recommends continuing the Lasix 20 mg b.i.d. (or switching to 40 mg daily) Mental Status Exam Mental Status Exam Narrative: Pt is alert and oriented; behavior is cooperative, calm; dressed in casual attire, mood is described as depressed and affect congruent, downcast; eye contact appropriate; Speech is regular rate, volume, prosody; some psychomotor retardation present; intermittent psychomotor agitaiton present; thought process is organized and goal directed; Thought content is on trying not to feel hopeless, wanting off unit; past trauma, treatment; otherwise pertinent to relevant topics and without any delusional content, paranoid ideations or grandiosity; no SI; no HI. No AVH and there is no evidence of perceptual disturbance.. Patients insight and judgment are impaired. Diagnostics Vital Signs (24Hr): Vital Signs - 24 hr 01/21/23 18:00 01/22/23 09:47 Temperature 98.9 F 97.4 F Pulse Rate 88 104 H Respiratory Rate 14 Blood Pressure 131/78 131/75 Pulse Oximetry 99 Oxygen Delivery Method Room Air BMI result Body Mass Index 38.1 Labs 12/27/22 20:00 12/27/22 19:59 Imaging Radiology Impressions: ITS Impressions Hand X-Ray 01/18/23 23:35 IMPRESSION: No acute fracture or dislocation of either hand. Hand X-Ray 01/18/23 23:35 IMPRESSION: No acute fracture or dislocation of either hand. Medications Medications Current Medications Acetaminophen (Acetaminophen 325 Mg Tablet) 650 mg PO Q6H PRN PRN Reason: Headache/Pain Mild Scale (1-3) Al Hydroxide/Mg Hydroxide (Magnesium Hydrox/Alum Hydrox 30 Ml Oral.Susp) 30 ml PO Q6H PRN PRN Reason: Heartburn/Nausea Last Admin: 12/31/22 08:29 Dose: 30 ml Alprazolam (Alprazolam 0.5 Mg Tablet) 0.5 mg PO TID PRN PRN Reason: Anxiety Last Admin: 01/21/23 19:43 Dose: 0.5 mg Clonidine HCl (Clonidine Hcl 0.1 Mg Tablet) 0.1 mg PO BID@1400,2100 [facility]; Protocol Last Admin: 01/21/23 20:34 Dose: 0.1 mg Diphenhydramine HCl (Diphenhydramine Hcl 25 Mg Capsule) 50 mg PO BEDTIME [facility] Last Admin: 01/21/23 20:34 Dose: 50 mg Divalproex Sodium (Divalproex Sodium Sprinkles 125 Mg Spr) 1,250 mg PO BID [facility] Stop: 01/22/23 21:00 Last Admin: 01/22/23 09:48 Dose: 1,250 mg Divalproex Sodium (Divalproex Sodium Sprinkles 125 Mg Donald.Spr) 1,250 mg PO BID@1400,2100 [facility] Famotidine (Famotidine 20 Mg Tablet) 20 mg PO BEDTIME [facility] Last Admin: 01/21/23 20:34 Dose: 20 mg Famotidine (Famotidine 20 Mg Tablet) 20 mg PO DAILY PRN PRN Reason: GERD Fluoxetine HCl (Fluoxetine Hcl 20 Mg Capsule) 60 mg PO DAILY [facility] Last Admin: 01/22/23 09:49 Dose: 60 mg Furosemide (Furosemide 20 Mg Tablet) 20 mg PO BID@0900,1700 [facility]; Protocol Last Admin: 01/22/23 09:49 Dose: 20 mg Lactulose (Lactulose 20 Gm/30 Ml Solution) 20 gm PO DAILY [facility] Last Admin: 01/22/23 09:50 Dose: Not Given Loratadine (Loratadine 10 Mg Tablet) 10 mg PO DAILY PRN PRN Reason: congestion Magnesium Hydroxide (Milk Of Magnesia 30 Ml Oral.Susp) 30 ml PO DAILY [facility] Last Admin: 01/22/23 09:50 Dose: Not Given Melatonin (Melatonin 3 Mg Tablet) 3 mg PO BEDTIME PRN PRN Reason: insomnia Last Admin: 01/17/23 22:51 Dose: 3 mg Multivitamins/Vitamin C (Multivitamin Tablet) 1 tab PO BEDTIME [facility] Last Admin: 01/21/23 20:34 Dose: 1 tab Naproxen (Naproxen 500 Mg Tablet) 500 mg PO Q12H PRN PRN Reason: mild pain Last Admin: 01/15/23 15:47 Dose: 500 mg Olanzapine (Olanzapine 10 Mg Tablet) 20 mg PO BEDTIME [facility] Last Admin: 01/21/23 20:33 Dose: 20 mg Senna/Docusate Sodium (Sennosides/Docusate Sodium Tablet) 2 tab PO BID [facility] Last Admin: 01/22/23 09:49 Dose: 2 tab Trazodone HCl (Trazodone Hcl 50 Mg Tablet) 50 mg PO BEDTIME PRN PRN Reason: insomnia Last Admin: 01/17/23 22:51 Dose: 50 mg Trazodone HCl (Trazodone Hcl 100 Mg Tablet) 100 mg PO BEDTIME [facility] Last Admin: 01/21/23 20:34 Dose: 100 mg Ziprasidone (Ziprasidone 20 Mg Capsule) 20 mg PO BID PRN PRN Reason: Agitation Last Admin: 01/21/23 16:10 Dose: 20 mg Allergies Allergies Allergy/AdvReac Type Severity Reaction Status Date / Time chlorpromazine Allergy Anaphylaxis Verified 12/27/22 16:37 [From Thorazine] nut - unspecified Allergy Anxiety Verified 12/27/22 16:37 haloperidol [From Haldol] AdvReac Agitated Verified 12/27/22 16:37 lithium AdvReac Hives Verified 12/27/22 16:37 Assessment & Plan Assessment & Plan (1) Autism: Status: Suspected Code(s): F84.0 - Autistic disorder (2) PTSD (post-traumatic stress disorder): Status: Suspected Code(s): F43.10 - Post-traumatic stress disorder, unspecified (3) Intermittent explosive disorder: Status: Acute Code(s): F63.81 - Intermittent explosive disorder (4) CHARLES positive: Status: Acute Code(s): R76.8 - Other specified abnormal immunological findings in serum (5) Chronic restrictive lung disease: Status: Acute Code(s): J98.4 - Other disorders of lung (6) Peripheral edema: Status: Acute Code(s): R60.9 - Edema, unspecified (7) Amenorrhea: Status: Acute Code(s): N91.2 - Amenorrhea, unspecified Plan HPI: Patient is a bright, kind 22-year-old female, well known to this service, with history of Autism, PTSD recently discharged from on 12/25/2022 (and recently dc'd from [facility] after 5 years) who re-presents 2 days later for resurgence of suicidal ideation, dissociative episode and having run out during therapy session, into the street trying to hit by traffic and then eloping again from crisis again trying to get hit by oncoming cars. This has happened after ever discharge since coming to [facility]. Patient reports that day she left she had the intrusive thought that I am gonna screw this up again which just built and built until it overwhelmed her. Patient says she tried very hard to resist self-harm but the constant intrusive thought was unrelenting. She reports that on the way into the therapist building she got triggered as setting and some other people around reminded her of [facility]; already being on edge, this launched her into a full-blown panic attack; she dissociated and ran into the street wanting to . Patient says she just cannot seem to control. She also worries that she is unsafe living at her grandmother's, whom she loves dearly, because her grandmother is not able to sense when patient is starting to unravel and cannot preemptively help ground her and prevent dysregulated/dissociate of episode; patient says that sometimes she is able to alert her grandmother that she is headed this direction but many time she is not. Patient says she needs to live in a place with staff who were trained who can help divert her from such episodes. Passive SI remains but none active. Patient does not want to and wants to continue with treatment therapy. It is unclear if patient meets full criteria for OCD diagnosis however she has OCD like symptoms and will thus increase Prozac which has thus far been well tolerated. Hospital course: 12/30 stabilizing; continue current treatment plan 12/31 patient continues to stabilize; no change in medications at this time however will likely seek to reduce possibly Depakote her Zyprexa level; may increase Prozac for PTSD/OCD like symptoms 01/01 stabilizing 01/02 tough night, needing geodon prns; asked to change depakote to sprinkles and maybe lower dose since tired in daytime and pt may be stable at lower dose 01/03 will add short trial of Lasix 20mg BID for continued lower limb edema (Jamal stockings tried and ripped) 01/06/23- Continue current plan and regime 01/07 continue current treatment plan for now 01/09 patient is significantly more depressed, hopeless and wishing she were . Situational stressors are significantly contributory including limited options for disposition and stressors on the unit; however patient is also reflecting on her life, her chronic symptoms and long history of living in institutions, creating a hopelessness that her things will get better. It is possible that changing Depakote formulation to DR could be contributory, however theoretically it is the same total daily dose. -patient has been in an institution more time the not since 6 years old and has spent the last 5 years in a [facility]; it was likely an unreasonable expectation that she would be able to immediately discharge and be successful in community. Rather acclimation will be a gradual process. At this time will increase Prozac to 60 mg to see if this can help. Currently patient is depressed and suicidal and in imminent risk of harm to self if discharged. 01/07 for patient a little bit improved, depression a little lower possibly due to increased Prozac 01/12/23 Continue current plan. 01/13/23 Continue current plan. 01/14 patient remains depressed but less so and she denies SI bilateral lower limb edema has decreased since getting her menses. Discussed disposition plans with social media executive and reviewed possible options and concerns from both [facility] and [facility]; currently recommendation from [facility] is for patient to undergo evaluation by Dr. Caputo; team agrees it will help to organize a joint meeting with both [facility] in [facility] to clarify and discussed situation and options. 01/15 bilateral hand tremor; patient reports it is chronic and comes and goes but a little worse today 01/16 continue current treatment plan 3.31 depressed; agrees to start lactulose Supervisor Mold Yard called Lou Mitchell, supervising case management rn at [facility] and discussed treatment; Lou explained potentially collaborative involvement with [facility] and that patient was accepted to [facility] and approved for virtual assessment. 01/19 to 01/20 multiple restraints over weekend 4/3 pt dysregulated over weekend; continues to seem more likely situational rather than due to past med changes; will consult w/ collegue for med suggestions. Currently, pt continues to need structured environment 4/ depression remains maybe we worsening some; continues to seem mostly situational as her situation is causing a sense of hopelessness, patient worried she will never improve enough to be off a unit. Will add clonazepam scheduled low-dose to see if it can help with afternoon/evening dysregulated behaviors. Dr. Elaine consulted who agrees to meet with patient; flex o writer operator looks forward to Dr. Elaine as observations/recommendations. PLAN: *Started Lasix 20mg BID on 01/03 for b/l lower limb edema Bilateral lower limbs with improvement; reviewed with hospitalist VICTOR MANUEL who agrees and recommends continued Lasix 20 mg b.i.d. or 40 mg daily whichever patient prefers 1. ASD/PTSD/intermittent explosive disorder: ADDED clonazepam 0.5 b.i.d. at 11:00 and 1500 since most dysregulated behaviors seem to happen in the afternoon/evening Continue to Depakote sprinkles DR 1200mg bId at 1400 and 2100 since dysregulated behaviors seem to mostly happen 2nd shift (roughly equiv to Depakote ER 2500 mg q.h.s ...) Continue Zyprexa 20 mg q.h.s. (may very well tolerate lower dose as overseen by outpatient provider) Increased Prozac to 60mg (increased during this admission) Continue Xanax 0.5 mg t.i.d. p.r.n. for agitation; may give alone or with Geodon Continue Geodon 20 mg b.i.d. p.r.n. for agitation (*pt may get IM Geodon if requested for faster action) Continue Clonidine 0.1 mg t.i.d. Continue Trazodone 100 mg q.h.s. DC'd zyprexa 5mg in afternoon DC'd perphenazine (patient has no history of psychotic illness and very likely does not need this medication) Chronic conditions: 2. CHARLES positive appointment made with Rheumatology February 20 -daytime fatigue; b/l peripheral edema; mild dyspnea on exertion Discussed with Dr. Hamilton who recommends and following labs ordered: -Urine protein creatinine ratio -Rheumatoid factor -CCP antibody 3. Bilateral peripheral edema (lower/upper extrem):? Medication side effect (Zyprexa/Depakote)?? vs organic origin some reduction w/ lowering of medications Zyprexa and depakote r/u autoimune 4. Complaint of chronic struggles with inspiration: lungs CTA; CXR unremarkable Pulmonary function test: results reviewed, discussed with Dr. Melchor -elevated CHARLES and abnromal PFTs with a mild restriction with a mild diffusion impairment. -could be explained by her elevated BMI. -at this time dr. Melchor reports given lab work, at this time it does not look like she has lupus nor sjogrens nor scleroderma. Her cxr was good. needs a sleep study as an out pt (daytime drowsiness bringing up the possibility of obstructive sleep apnea) does not need an inpt ct scan but should f/up with outpt pulmonary and rheumatology. -in further discussion, Dr. Melchor agrees that CHARLES needs further evaluation, 5. Amenorrhea: Patient did get her menses on 01/11 Patient did have menses a few years ago while on control; has not had it since control discontinued about 2 years ago Labs: mostly WNL; will f/u with PCP/raw stock machine feeder PSYCHIATRIC IMPRESSION/DIAGNOSIS:. Impression: Patient is a fun, intelligent, cooperative and friendly person. When she gets triggered by something she can decompensate severely, dissociate and become physically aggressive.? Patient is now diagnosed with ASD, PTSD, and intermittent explosive disorder.? From [facility], she carried the diagnosis of Schizoaffective disorder and mention of borderline personality disorder.? Both of these have been ruled out.? Patient has no present psychotic symptoms, denies any history of AVH or delusional thinking, and has no reported history anywhere that can be found of any psychotic symptoms (history includes flex o writer operator having gone through numerous pages of notes from [facility] and other institutions).? She is linear, logical, articulate, insightful and organized in her thinking; she is organized in her behaviors.? Patient can have intrusive thoughts but only when triggered and this does not seem to be OCD.? She can have some rigid thinking in line with ASD.? Many of her dysregulated moments come from her PTSD being exacerbated.? Patient has well tolerated decrease of Zyprexa, decrease of Depakote and discontinuation of perphenazine. Primary dx: ASD. Patient's father and grandmother maintain that she met her milestones in childhood. 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 During childhood she attended [facility] in [place], treatment center typically for people with autism; in [place] when at [facility], she carried a dx of ASD.? As observed on the unit, Patient frequently rocks back and forth, when standing or sitting, while talking to others or calming herself down.? Patient does not have a sense of a person's personal space and will get much to close to a person when talking; she is redirectable and apologizes but she is unaware she is doing it and does not get verbal cues when conversation participant is backing away or trying to end a conversation; though redirectable, she will again get too close, again unaware.? In the milieu with peers, While she will sometimes spend time in the vicinity of others, she is mostly alongside people and not directly interacting with them.? That said, she will directly interact with staff. Patient does make eye contact, however she stares the entire time she is engaged. ? She can have a logical conversation, however she is concrete Patient has a blunted affect and though she can smile and laugh, she is otherwise expressionless with blunted affect. Patient has in flexibility regarding food when it is not as expected patient can get severely dysregulated Patient has some hypo-reactivity to loud noises and crowds of people. Conversely, She does get jokes, even subtle ones. Symptoms have clearly made life functioning extremely difficult.? It is unclear if patient has had neuropsych testing. She did spend time at [facility]. Regarding PTSD: Patient has a history of trauma from both childhood experiences, as well as trauma that occurred while on inpatient unit at [facility] and [place].? She has also been institutionalized since a young age, away from her mother and father, feeling abandoned.? She can have several regressed behaviors and some child-like interests. Regarding Dissociative Disorder:? Patient has episodes of depersonalization and derealization which the typically arise when triggered and during which time she will feel detached from herself, from her body and feel as if things are unreal and dream like, with out a sense of time; after they conclude and she is again in the present, she can be upset about some behaviors she engaged in during the dissociate period once made aware. Not BPD: Regarding past references to borderline personality disorder, Supervisor Mold Yard and team agree there have been no axis II traits expressed throughout her time in the hospital; none could be cleaned from records No psychotic illness: no psychotic symptoms past or present Patient educated on: diagnosis, medication risk/benefits and therapeutic strategies Informed Consent: understands Reason for contiued inpatient stay Substantial Risk for: inability to function and rapid decompensation Time Spent With Patient Time: Total time managing care of this patient today ____ minutes.
[2023-01-22] MEDS: NaPROXEN 500 MG TABLET PO (13:41)
[2023-01-22 14:20] VITALS: BP 130/82; PULSE 94; RESP 14
[2023-01-22] MEDS: cloNIDine HCL 0.1 MG TABLET PO (14:23)
[2023-01-22] MEDS: clonazePAM 0.5 MG TABLET PO (15:47)
[2023-01-22] MEDS: diphenhydrAMINE HCL 25 MG CAPSULE 50 MG PO (22:04)
[2023-01-22] MEDS: OLANZapine 10 MG TABLET 20 MG PO (22:05)
[2023-01-22] MEDS: Multivitamin TABLET 1 TAB PO (22:05)
[2023-01-22] MEDS: Famotidine 20 MG TABLET PO ×2 (22:05→22:21)
[2023-01-22] MEDS: traZODone HCL 100 MG TABLET PO (22:05)
[2023-01-22] MEDS: ALPRAZolam 0.5 MG TABLET PO (22:21)
--- NOTE | 2023-01-23 07:49 | HO.PSYCHPN ---
Subjective Subjective Date of Service: 01/23/23 Reason For Visit: Mood Dysregulation Interim History: Briefly Met with patient; discussed with team Patient tired and lying in bed; she woke to briefly talk with conventional underwriter and says she is feeling the same, depressed. Mental Status Exam Mental Status Exam Narrative: Pt is alert and oriented; behavior is cooperative, calm; dressed in casual attire, mood is described as depressed and affect congruent, downcast; eye contact appropriate; Speech is regular rate, volume, prosody; some psychomotor retardation present; intermittent psychomotor agitaiton present; thought process is organized and goal directed; Thought content is on trying not to feel hopeless, wanting off unit; past trauma, treatment; otherwise pertinent to relevant topics and without any delusional content, paranoid ideations or grandiosity; no SI; no HI. No AVH and there is no evidence of perceptual disturbance.. Patients insight and judgment are impaired. Diagnostics Vital Signs (24Hr): Vital Signs - 24 hr 01/22/23 09:47 01/22/23 14:20 Temperature 97.4 F Pulse Rate 104 H 94 Respiratory Rate 14 14 Blood Pressure 131/75 130/82 BMI result Body Mass Index 38.1 Labs 12/27/22 20:00 12/27/22 19:59 Imaging Radiology Impressions: ITS Impressions Hand X-Ray 01/18/23 23:35 IMPRESSION: No acute fracture or dislocation of either hand. Hand X-Ray 01/18/23 23:35 IMPRESSION: No acute fracture or dislocation of either hand. Medications Medications Current Medications Acetaminophen (Acetaminophen 325 Mg Tablet) 650 mg PO Q6H PRN PRN Reason: Headache/Pain Mild Scale (1-3) Al Hydroxide/Mg Hydroxide (Magnesium Hydrox/Alum Hydrox 30 Ml Oral.Susp) 30 ml PO Q6H PRN PRN Reason: Heartburn/Nausea Last Admin: 12/31/22 08:29 Dose: 30 ml Alprazolam (Alprazolam 0.5 Mg Tablet) 0.5 mg PO TID PRN PRN Reason: Anxiety Last Admin: 01/22/23 22:21 Dose: 0.5 mg Bacitracin (Bacitracin Oint 14 Gm Tube) 1 appl TOPICAL TID OSCAR; Protocol Last Admin: 01/22/23 22:18 Dose: Not Given Clonazepam (Clonazepam 0.5 Mg Tablet) 0.5 mg PO BID@1100,1500 [facility] Clonidine HCl (Clonidine Hcl 0.1 Mg Tablet) 0.1 mg PO BID@1400,2100 [facility]; Protocol Last Admin: 01/22/23 22:04 Dose: Not Given Diphenhydramine HCl (Diphenhydramine Hcl 25 Mg Capsule) 50 mg PO BEDTIME [facility] Last Admin: 01/22/23 22:04 Dose: 50 mg Divalproex Sodium (Divalproex Sodium Sprinkles 125 Mg ) 1,250 mg PO BID@1400,2100 [facility] Famotidine (Famotidine 20 Mg Tablet) 20 mg PO BEDTIME [facility] Last Admin: 01/22/23 22:21 Dose: 20 mg Famotidine (Famotidine 20 Mg Tablet) 20 mg PO DAILY PRN PRN Reason: GERD Fluoxetine HCl (Fluoxetine Hcl 20 Mg Capsule) 60 mg PO DAILY [facility] Last Admin: 01/22/23 09:49 Dose: 60 mg Furosemide (Furosemide 20 Mg Tablet) 20 mg PO BID@0900,1700 [facility]; Protocol Last Admin: 01/22/23 18:03 Dose: 20 mg Lactulose (Lactulose 20 Gm/30 Ml Solution) 20 gm PO DAILY [facility] Last Admin: 01/22/23 09:50 Dose: Not Given Loratadine (Loratadine 10 Mg Tablet) 10 mg PO DAILY PRN PRN Reason: congestion Magnesium Hydroxide (Milk Of Magnesia 30 Ml Oral.Susp) 30 ml PO DAILY [facility] Last Admin: 01/22/23 09:50 Dose: Not Given Melatonin (Melatonin 3 Mg Tablet) 3 mg PO BEDTIME PRN PRN Reason: insomnia Last Admin: 01/17/23 22:51 Dose: 3 mg Multivitamins/Vitamin C (Multivitamin Tablet) 1 tab PO BEDTIME [facility] Last Admin: 01/22/23 22:05 Dose: 1 tab Naproxen (Naproxen 500 Mg Tablet) 500 mg PO Q12H PRN PRN Reason: mild pain Last Admin: 01/22/23 13:41 Dose: 500 mg Olanzapine (Olanzapine 10 Mg Tablet) 20 mg PO BEDTIME [facility] Last Admin: 01/22/23 22:05 Dose: 20 mg Senna/Docusate Sodium (Sennosides/Docusate Sodium Tablet) 2 tab PO BID [facility] Last Admin: 01/22/23 22:06 Dose: 2 tab Trazodone HCl (Trazodone Hcl 50 Mg Tablet) 50 mg PO BEDTIME PRN PRN Reason: insomnia Last Admin: 01/17/23 22:51 Dose: 50 mg Trazodone HCl (Trazodone Hcl 100 Mg Tablet) 100 mg PO BEDTIME [facility] Last Admin: 01/22/23 22:05 Dose: 100 mg Ziprasidone (Ziprasidone 20 Mg Capsule) 20 mg PO BID PRN PRN Reason: Agitation Last Admin: 01/21/23 16:10 Dose: 20 mg Allergies Allergies Allergy/AdvReac Type Severity Reaction Status Date / Time chlorpromazine Allergy Anaphylaxis Verified 12/27/22 16:37 [From Thorazine] nut - unspecified Allergy Anxiety Verified 12/27/22 16:37 haloperidol [From Haldol] AdvReac Agitated Verified 12/27/22 16:37 lithium AdvReac Hives Verified 12/27/22 16:37 Assessment & Plan Assessment & Plan (1) Autism: Status: Suspected Code(s): F84.0 - Autistic disorder (2) PTSD (post-traumatic stress disorder): Status: Suspected Code(s): F43.10 - Post-traumatic stress disorder, unspecified (3) Intermittent explosive disorder: Status: Acute Code(s): F63.81 - Intermittent explosive disorder (4) CHARLES positive: Status: Acute Code(s): R76.8 - Other specified abnormal immunological findings in serum (5) Chronic restrictive lung disease: Status: Acute Code(s): J98.4 - Other disorders of lung (6) Peripheral edema: Status: Acute Code(s): R60.9 - Edema, unspecified (7) Amenorrhea: Status: Acute Code(s): N91.2 - Amenorrhea, unspecified Plan HPI: Patient is a bright, kind 22-year-old female, well known to this service, with history of Autism, PTSD recently discharged from on 12/25/2022 (and recently dc'd from [facility] after 5 years) who re-presents 2 days later for resurgence of suicidal ideation, dissociative episode and having run out during therapy session, into the street trying to hit by traffic and then eloping again from crisis again trying to get hit by oncoming cars. This has happened after ever discharge since coming to [facility]. Patient reports that day she left she had the intrusive thought that I am gonna screw this up again which just built and built until it overwhelmed her. Patient says she tried very hard to resist self-harm but the constant intrusive thought was unrelenting. She reports that on the way into the therapist building she got triggered as setting and some other people around [facility]; already being on edge, this launched her into a full-blown panic attack; she dissociated and ran into the street wanting to . Patient says she just cannot seem to control. She also worries that she is unsafe living at her grandmother's, whom she loves dearly, because her grandmother is not able to sense when patient is starting to unravel and cannot preemptively help ground her and prevent dysregulated/dissociate of episode; patient says that sometimes she is able to alert her grandmother that she is headed this direction but many time she is not. Patient says she needs to live in a place with staff who were trained who can help divert her from such episodes. Passive SI remains but none active. Patient does not want to and wants to continue with treatment therapy. It is unclear if patient meets full criteria for OCD diagnosis however she has OCD like symptoms and will thus increase Prozac which has thus far been well tolerated. Hospital course: 12/30 stabilizing; continue current treatment plan 12/31 patient continues to stabilize; no change in medications at this time however will likely seek to reduce possibly Depakote her Zyprexa level; may increase Prozac for PTSD/OCD like symptoms 01/01 stabilizing 01/02 tough night, needing geodon prns; asked to change depakote to sprinkles and maybe lower dose since tired in daytime and pt may be stable at lower dose 01/03 will add short trial of Lasix 20mg BID for continued lower limb edema (Jamal stockings tried and ripped) 01/06/23- Continue current plan and regime 01/07 continue current treatment plan for now 01/09 patient is significantly more depressed, hopeless and wishing she were . Situational stressors are significantly contributory including limited options for disposition and stressors on the unit; however patient is also reflecting on her life, her chronic symptoms and long history of living in institutions, creating a hopelessness that her things will get better. It is possible that changing Depakote formulation to DR could be contributory, however theoretically it is the same total daily dose. -patient has been in an institution more time the not since 6 years old and has spent the last 5 years in a [facility]; it was likely an unreasonable expectation that she would be able to immediately discharge and be successful in community. Rather acclimation will be a gradual process. At this time will increase Prozac to 60 mg to see if this can help. Currently patient is depressed and suicidal and in imminent risk of harm to self if discharged. 01/07 for patient a little bit improved, depression a little lower possibly due to increased Prozac 01/12/23 Continue current plan. 01/13/23 Continue current plan. 01/14 patient remains depressed but less so and she denies SI bilateral lower limb edema has decreased since getting her menses. Discussed disposition plans with social sciences department chair and reviewed possible options and concerns from both DDS and DM; currently recommendation from DDS is for patient to undergo evaluation by Dr. Caputo; team agrees it will help to organize a joint meeting with both DDS in DM to clarify and discussed situation and options. 01/15 bilateral hand tremor; patient reports it is chronic and comes and goes but a little worse today 01/16 continue current treatment plan 3.31 depressed; agrees to start lactulose [employer] called Lou Mitchell, supervising case filler at [facility] and discussed treatment; Lou explained potentially collaborative involvement with [facility] and that patient was accepted to [facility] and approved for virtual assessment. 01/19 to 01/20 multiple restraints over weekend 01/21 pt dysregulated over weekend; continues to seem more likely situational rather than due to past med changes; will consult w/ collegue for med suggestions. Currently, pt continues to need structured environment 01/22 depression remains maybe we worsening some; continues to seem mostly situational as her situation is causing a sense of hopelessness, patient worried she will never improve enough to be off a unit. Will add clonazepam scheduled low-dose to see if it can help with afternoon/evening dysregulated behaviors. Dr. Elaine consulted who agrees to meet with patient; conventional underwriter looks forward to Dr. lEaine as observations/recommendations. 01/23 continue current treatment plan PLAN: *Started Lasix 20mg BID on 01/03 for b/l lower limb edema Bilateral lower limbs with improvement; reviewed with hospitalist VICTOR MANUEL who agrees and recommends continued Lasix 20 mg b.i.d. or 40 mg daily whichever patient prefers 1. ASD/PTSD/intermittent explosive disorder: ADDED clonazepam 0.5 b.i.d. at 11:00 and 1500 since most dysregulated behaviors seem to happen in the afternoon/evening Continue to Depakote sprinkles DR 1200mg bId at 1400 and 2100 since dysregulated behaviors seem to mostly happen 2nd shift (roughly equiv to Depakote ER 2500 mg q.h.s ...) Continue Zyprexa 20 mg q.h.s. (may very well tolerate lower dose as overseen by outpatient provider) Increased Prozac to 60mg (increased during this admission) Continue Xanax 0.5 mg t.i.d. p.r.n. for agitation; may give alone or with Geodon Continue Geodon 20 mg b.i.d. p.r.n. for agitation (*pt may get IM Geodon if requested for faster action) Continue Clonidine 0.1 mg t.i.d. Continue Trazodone 100 mg q.h.s. DC'd zyprexa 5mg in afternoon DC'd perphenazine (patient has no history of psychotic illness and very likely does not need this medication) Chronic conditions: 2. CHARLES positive appointment made with Rheumatology February 20 -daytime fatigue; b/l peripheral edema; mild dyspnea on exertion Discussed with Dr. Hamilton who recommends and following labs ordered: -Urine protein creatinine ratio -Rheumatoid factor -CCP antibody 3. Bilateral peripheral edema (lower/upper extrem):? Medication side effect (Zyprexa/Depakote)?? vs organic origin some reduction w/ lowering of medications Zyprexa and depakote r/u autoimune 4. Complaint of chronic struggles with inspiration: lungs CTA; CXR unremarkable Pulmonary function test: results reviewed, discussed with Dr. Melchor -elevated CHARLES and abnromal PFTs with a mild restriction with a mild diffusion impairment. -could be explained by her elevated BMI. -at this time dr. Melchor reports given lab work, at this time it does not look like she has lupus nor sjogrens nor scleroderma. Her cxr was good. needs a sleep study as an out pt (daytime drowsiness bringing up the possibility of obstructive sleep apnea) does not need an inpt ct scan but should f/up with outpt pulmonary and rheumatology. -in further discussion, Dr. Melchor agrees that CHARLES needs further evaluation, 5. Amenorrhea: Patient did get her menses on 01/11 Patient did have menses a few years ago while on control; has not had it since control discontinued about 2 years ago Labs: mostly WNL; will f/u with PCP/gynaecological oncologist PSYCHIATRIC IMPRESSION/DIAGNOSIS:. Impression: Patient is a fun, intelligent, cooperative and friendly person. When she gets triggered by something she can decompensate severely, dissociate and become physically aggressive.? Patient is now diagnosed with ASD, PTSD, and intermittent explosive disorder.? From [facility], she carried the diagnosis of Schizoaffective disorder and mention of borderline personality disorder.? Both of these have been ruled out.? Patient has no present psychotic symptoms, denies any history of AVH or delusional thinking, and has no reported history anywhere that can be found of any psychotic symptoms (history includes conventional underwriter having gone through numerous pages of notes from [facility] and other institutions).? She is linear, logical, articulate, insightful and organized in her thinking; she is organized in her behaviors.? Patient can have intrusive thoughts but only when triggered and this does not seem to be OCD.? She can have some rigid thinking in line with ASD.? Many of her dysregulated moments come from her PTSD being exacerbated.? Patient has well tolerated decrease of Zyprexa, decrease of Depakote and discontinuation of perphenazine. Primary dx: ASD. Patient's father and grandmother maintain that she met her milestones in childhood. 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 During childhood she attended [facility] in [place], treatment center typically for people with autism; in [place] when at [facility], she carried a dx of ASD.? As observed on the unit, Patient frequently rocks back and forth, when standing or sitting, while talking to others or calming herself down.? Patient does not have a sense of a person's personal space and will get much to close to a person when talking; she is redirectable and apologizes but she is unaware she is doing it and does not get verbal cues when conversation participant is backing away or trying to end a conversation; though redirectable, she will again get too close, again unaware.? In the milieu with peers, While she will sometimes spend time in the vicinity of others, she is mostly alongside people and not directly interacting with them.? That said, she will directly interact with staff. Patient does make eye contact, however she stares the entire time she is engaged. ? She can have a logical conversation, however she is concrete Patient has a blunted affect and though she can smile and laugh, she is otherwise expressionless with blunted affect. Patient has in flexibility regarding food when it is not as expected patient can get severely dysregulated Patient has some hypo-reactivity to loud noises and crowds of people. Conversely, She does get jokes, even subtle ones. Symptoms have clearly made life functioning extremely difficult.? It is unclear if patient has had neuropsych testing. She did spend time at [facility]. Regarding PTSD: Patient has a history of trauma from both childhood experiences, as well as trauma that occurred while on inpatient unit at [facility] and [place].? She has also been institutionalized since a young age, away from her mother and father, feeling abandoned.? She can have several regressed behaviors and some child-like interests. Regarding Dissociative Disorder:? Patient has episodes of depersonalization and derealization which the typically arise when triggered and during which time she will feel detached from herself, from her body and feel as if things are unreal and dream like, with out a sense of time; after they conclude and she is again in the present, she can be upset about some behaviors she engaged in during the dissociate period once made aware. Not BPD: Regarding past references to borderline personality disorder, [employer] and team agree there have been no axis II traits expressed throughout her time in the hospital; none could be cleaned from records No psychotic illness: no psychotic symptoms past or present Reason for contiued inpatient stay Substantial Risk for: inability to function Time Spent With Patient Time: Total time managing care of this patient today ____ minutes.
[2023-01-23 10:47] VITALS: BP 99/56; PULSE 63; RESP 16; TEMP 36.7; O2SAT 95
[2023-01-23] MEDS: Sennosides/Docusate Sodium TABLET 2 TAB PO ×2 (10:54→22:55)
[2023-01-23] MEDS: Furosemide 20 MG TABLET PO (10:54)
[2023-01-23] MEDS: FLUoxetine HCl 20 MG CAPSULE 60 MG PO (10:54)
[2023-01-23] MEDS: clonazePAM 0.5 MG TABLET PO (11:05)
[2023-01-23] MEDS: Divalproex Sodium Sprinkles 125 MG CAP.DR.SPR 1250 MG PO ×2 (14:27→22:53)
[2023-01-23] MEDS: Bacitracin Oint 14 GM TUBE 1 APPL TOPICAL (14:37)
[2023-01-23 22:50] VITALS: BP 126/55; PULSE 80; TEMP 35.7
[2023-01-23] MEDS: Multivitamin TABLET 1 TAB PO (22:54)
[2023-01-23] MEDS: diphenhydrAMINE HCL 25 MG CAPSULE 50 MG PO (22:54)
[2023-01-23] MEDS: traZODone HCL 100 MG TABLET PO (22:54)
[2023-01-23] MEDS: Famotidine 20 MG TABLET PO (22:55)
[2023-01-23] MEDS: OLANZapine 10 MG TABLET 20 MG PO (22:55)
[2023-01-23] MEDS: cloNIDine HCL 0.1 MG TABLET PO (22:56)
[2023-01-24] MEDS: Melatonin 3 MG TABLET PO ×2 (00:01→21:55)
[2023-01-24] MEDS: traZODone HCL 50 MG TABLET PO (00:01)
[2023-01-24 08:10] VITALS: BP 98/53; PULSE 62; RESP 16; TEMP 36.9; O2SAT 96
[2023-01-24] MEDS: Furosemide 20 MG TABLET PO (08:12)
[2023-01-24] MEDS: FLUoxetine HCl 20 MG CAPSULE 60 MG PO (08:12)
[2023-01-24] MEDS: Sennosides/Docusate Sodium TABLET 2 TAB PO ×2 (08:12→20:35)
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
[2023-01-24 14:17] VITALS: BP 123/62; PULSE 75; RESP 16; TEMP 36.6; O2SAT 98
[2023-01-24] MEDS: Divalproex Sodium Sprinkles 125 MG CAP.DR.SPR 1250 MG PO ×2 (14:21→20:35)
[2023-01-24] MEDS: cloNIDine HCL 0.1 MG TABLET PO ×2 (14:21→20:34)
[2023-01-24] MEDS: clonazePAM 0.5 MG TABLET PO (14:21)
[2023-01-24 20:30] VITALS: BP 113/62; PULSE 84; RESP 14; TEMP 36.6
[2023-01-24] MEDS: OLANZapine 10 MG TABLET 20 MG PO (20:33)
[2023-01-24] MEDS: ALPRAZolam 0.5 MG TABLET PO (20:33)
[2023-01-24] MEDS: traZODone HCL 100 MG TABLET PO (20:34)
[2023-01-24] MEDS: Multivitamin TABLET 1 TAB PO (20:34)
[2023-01-24] MEDS: Famotidine 20 MG TABLET PO (20:34)
[2023-01-24] MEDS: diphenhydrAMINE HCL 25 MG CAPSULE 50 MG PO (20:34)
[2023-01-25 08:02] VITALS: BP 135/57; PULSE 100; RESP 16; TEMP 36.4; O2SAT 98
[2023-01-25] MEDS: FLUoxetine HCl 20 MG CAPSULE 60 MG PO (08:19)
[2023-01-25] MEDS: Sennosides/Docusate Sodium TABLET 2 TAB PO ×2 (08:20→20:22)
[2023-01-25] MEDS: Furosemide 20 MG TABLET PO ×2 (08:20→19:09)
[2023-01-25] MEDS: Bacitracin Oint 14 GM TUBE 1 APPL TOPICAL ×3 (09:48→20:39)
--- NOTE | 2023-01-25 10:02 | HO.PSYCHPN ---
Subjective Subjective Date of Service: 01/25/23 Reason For Visit: Mood Dysregulation Interim History: Met with patient; discussed with team Patient's mood was better today as it was her birthday and she had multiple visitors. Patient was in good behavioral and impulse control Mental Status Exam Mental Status Exam Narrative: Pt is alert and oriented; behavior is cooperative, calm; dressed in casual attire, mood is described as okay and affect congruent, little brighter; eye contact appropriate; Speech is regular rate, volume, prosody; some psychomotor retardation present; intermittent psychomotor agitaiton present; thought process is organized and goal directed; Thought content is on trying not to feel hopeless, wanting off unit; past trauma, treatment; otherwise pertinent to relevant topics and without any delusional content, paranoid ideations or grandiosity; no SI; no HI. No AVH and there is no evidence of perceptual disturbance.. Patients insight and judgment are impaired. Diagnostics Vital Signs (24Hr): Vital Signs - 24 hr 01/24/23 14:17 01/24/23 20:30 01/25/23 08:02 Temperature 97.8 F 97.8 F 97.6 F Pulse Rate 75 84 100 Respiratory Rate 16 14 16 Blood Pressure 123/62 113/62 135/57 L Pulse Oximetry 98 98 Oxygen Delivery Method Room Air Room Air BMI result Body Mass Index 38.1 Labs 12/27/22 20:00 12/27/22 19:59 Imaging Radiology Impressions: ITS Impressions Hand X-Ray 01/18/23 23:35 IMPRESSION: No acute fracture or dislocation of either hand. Hand X-Ray 01/18/23 23:35 IMPRESSION: No acute fracture or dislocation of either hand. Medications Medications Current Medications Acetaminophen (Acetaminophen 325 Mg Tablet) 650 mg PO Q6H PRN PRN Reason: Headache/Pain Mild Scale (1-3) Al Hydroxide/Mg Hydroxide (Magnesium Hydrox/Alum Hydrox 30 Ml Oral.Susp) 30 ml PO Q6H PRN PRN Reason: Heartburn/Nausea Last Admin: 12/31/22 08:29 Dose: 30 ml Alprazolam (Alprazolam 0.5 Mg Tablet) 0.5 mg PO TID PRN PRN Reason: Anxiety Last Admin: 01/24/23 20:33 Dose: 0.5 mg Bacitracin (Bacitracin Oint 14 Gm Tube) 1 appl TOPICAL TID [facility]; Protocol Last Admin: 01/25/23 09:48 Dose: 1 appl Clonazepam (Clonazepam 0.5 Mg Tablet) 0.5 mg PO BID@1100,1500 [facility] Last Admin: 01/24/23 14:21 Dose: 0.5 mg Clonidine HCl (Clonidine Hcl 0.1 Mg Tablet) 0.1 mg PO BID@1400,2100 [facility]; Protocol Last Admin: 01/24/23 20:34 Dose: 0.1 mg Diphenhydramine HCl (Diphenhydramine Hcl 25 Mg Capsule) 50 mg PO BEDTIME [facility] Last Admin: 01/24/23 20:34 Dose: 50 mg Divalproex Sodium (Divalproex Sodium Sprinkles 125 Mg ) 1,250 mg PO BID@1400,2100 [facility] Last Admin: 01/24/23 20:35 Dose: 1,250 mg Famotidine (Famotidine 20 Mg Tablet) 20 mg PO BEDTIME [facility] Last Admin: 01/24/23 20:34 Dose: 20 mg Famotidine (Famotidine 20 Mg Tablet) 20 mg PO DAILY PRN PRN Reason: GERD Fluoxetine HCl (Fluoxetine Hcl 20 Mg Capsule) 60 mg PO DAILY [facility] Last Admin: 01/25/23 08:19 Dose: 60 mg Furosemide (Furosemide 20 Mg Tablet) 20 mg PO BID@0900,1700 [facility]; Protocol Last Admin: 01/25/23 08:20 Dose: 20 mg Lactulose (Lactulose 20 Gm/30 Ml Solution) 20 gm PO DAILY [facility] Last Admin: 01/24/23 08:26 Dose: Not Given Loratadine (Loratadine 10 Mg Tablet) 10 mg PO DAILY PRN PRN Reason: congestion Magnesium Hydroxide (Milk Of Magnesia 30 Ml Oral.Susp) 30 ml PO DAILY [facility] Last Admin: 01/24/23 08:26 Dose: Not Given Melatonin (Melatonin 3 Mg Tablet) 3 mg PO BEDTIME PRN PRN Reason: insomnia Last Admin: 01/24/23 21:55 Dose: 3 mg Multivitamins/Vitamin C (Multivitamin Tablet) 1 tab PO BEDTIME [facility] Last Admin: 01/24/23 20:34 Dose: 1 tab Naproxen (Naproxen 500 Mg Tablet) 500 mg PO Q12H PRN PRN Reason: mild pain Last Admin: 01/22/23 13:41 Dose: 500 mg Olanzapine (Olanzapine 10 Mg Tablet) 20 mg PO BEDTIME [facility] Last Admin: 01/24/23 20:33 Dose: 20 mg Senna/Docusate Sodium (Sennosides/Docusate Sodium Tablet) 2 tab PO BID [facility] Last Admin: 01/25/23 08:20 Dose: 2 tab Trazodone HCl (Trazodone Hcl 50 Mg Tablet) 50 mg PO BEDTIME PRN PRN Reason: insomnia Last Admin: 01/24/23 00:01 Dose: 50 mg Trazodone HCl (Trazodone Hcl 100 Mg Tablet) 100 mg PO BEDTIME [facility] Last Admin: 01/24/23 20:34 Dose: 100 mg Ziprasidone (Ziprasidone 20 Mg Capsule) 20 mg PO BID PRN PRN Reason: Agitation Last Admin: 01/21/23 16:10 Dose: 20 mg Allergies Allergies Allergy/AdvReac Type Severity Reaction Status Date / Time chlorpromazine Allergy Anaphylaxis Verified 12/27/22 16:37 [From Thorazine] nut - unspecified Allergy Anxiety Verified 12/27/22 16:37 haloperidol [From Haldol] AdvReac Agitated Verified 12/27/22 16:37 lithium AdvReac Hives Verified 12/27/22 16:37 Assessment & Plan Assessment & Plan (1) Autism: Status: Suspected Code(s): F84.0 - Autistic disorder (2) PTSD (post-traumatic stress disorder): Status: Suspected Code(s): F43.10 - Post-traumatic stress disorder, unspecified (3) Intermittent explosive disorder: Status: Acute Code(s): F63.81 - Intermittent explosive disorder (4) CHARLES positive: Status: Acute Code(s): R76.8 - Other specified abnormal immunological findings in serum (5) Chronic restrictive lung disease: Status: Acute Code(s): J98.4 - Other disorders of lung (6) Peripheral edema: Status: Acute Code(s): R60.9 - Edema, unspecified (7) Amenorrhea: Status: Acute Code(s): N91.2 - Amenorrhea, unspecified Plan HPI: Patient is a bright, kind 22-year-old female, well known to this service, with history of Autism, PTSD recently discharged from on 12/25/2022 (and recently dc'd from [facility] after 5 years) who re-presents 2 days later for resurgence of suicidal ideation, dissociative episode and having run out during therapy session, into the street trying to hit by traffic and then eloping again from crisis again trying to get hit by oncoming cars. This has happened after ever discharge since coming to [facility]. Patient reports that day she left she had the intrusive thought that I am gonna screw this up again which just built and built until it overwhelmed her. Patient says she tried very hard to resist self-harm but the constant intrusive thought was unrelenting. She reports that on the way into the therapist building she got triggered as setting and some other people around reminded her of [facility]; already being on edge, this launched her into a full-blown panic attack; she dissociated and ran into the street wanting to . Patient says she just cannot seem to control. She also worries that she is unsafe living at her grandmother's, whom she loves dearly, because her grandmother is not able to sense when patient is starting to unravel and cannot preemptively help ground her and prevent dysregulated/dissociate of episode; patient says that sometimes she is able to alert her grandmother that she is headed this direction but many time she is not. Patient says she needs to live in a place with staff who were trained who can help divert her from such episodes. Passive SI remains but none active. Patient does not want to and wants to continue with treatment therapy. It is unclear if patient meets full criteria for OCD diagnosis however she has OCD like symptoms and will thus increase Prozac which has thus far been well tolerated. Hospital course: 12/30 stabilizing; continue current treatment plan 12/31 patient continues to stabilize; no change in medications at this time however will likely seek to reduce possibly Depakote her Zyprexa level; may increase Prozac for PTSD/OCD like symptoms 01/01 stabilizing 01/02 tough night, needing geodon prns; asked to change depakote to sprinkles and maybe lower dose since tired in daytime and pt may be stable at lower dose 01/03 will add short trial of Lasix 20mg BID for continued lower limb edema (Jamal stockings tried and ripped) 01/06/23- Continue current plan and regime 01/07 continue current treatment plan for now 01/09 patient is significantly more depressed, hopeless and wishing she were . Situational stressors are significantly contributory including limited options for disposition and stressors on the unit; however patient is also reflecting on her life, her chronic symptoms and long history of living in institutions, creating a hopelessness that her things will get better. It is possible that changing Depakote formulation to DR could be contributory, however theoretically it is the same total daily dose. -patient has been in an institution more time the not since 6 years old and has spent the last 5 years in a [facility]; it was likely an unreasonable expectation that she would be able to immediately discharge and be successful in community. Rather acclimation will be a gradual process. At this time will increase Prozac to 60 mg to see if this can help. Currently patient is depressed and suicidal and in imminent risk of harm to self if discharged. 01/07 for patient a little bit improved, depression a little lower possibly due to increased Prozac 01/12/23 Continue current plan. 01/13/23 Continue current plan. 01/14 patient remains depressed but less so and she denies SI bilateral lower limb edema has decreased since getting her menses. Discussed disposition plans with social work job titles and reviewed possible options and concerns from both DDS and DM; currently recommendation from DDS is for patient to undergo evaluation by Dr. Caputo; team agrees it will help to organize a joint meeting with both DDS in DM to clarify and discussed situation and options. 01/15 bilateral hand tremor; patient reports it is chronic and comes and goes but a little worse today 01/16 continue current treatment plan .31 depressed; agrees to start lactulose Burial Vault Deliverer And Installer called Lou Mitchell, supervising case management associate at [facility] and discussed treatment; Lou explained potentially collaborative involvement with [facility] and that patient was accepted to [facility] and approved for virtual assessment. / to 01/20 multiple restraints over weekend / pt dysregulated over weekend; continues to seem more likely situational rather than due to past med changes; will consult w/ collegue for med suggestions. Currently, pt continues to need structured environment 01/22 depression remains maybe we worsening some; continues to seem mostly situational as her situation is causing a sense of hopelessness, patient worried she will never improve enough to be off a unit. Will add clonazepam scheduled low-dose to see if it can help with afternoon/evening dysregulated behaviors. Dr. Elaine consulted who agrees to meet with patient; lead technical writer looks forward to Dr. Elaine as observations/recommendations. 01/23 continue current treatment plan 01/24 continue current tx plan; reached out to ASD specialist regarding [facility] assessment; waiting for return call 01/25 continue current treatment plan PLAN: *Started Lasix 20mg BID on 01/03 for b/l lower limb edema Bilateral lower limbs with improvement; reviewed with hospitalist VICTOR MANUEL who agrees and recommends continued Lasix 20 mg b.i.d. or 40 mg daily whichever patient prefers 1. ASD/PTSD/intermittent explosive disorder: ADDED clonazepam 0.5 b.i.d. at 11:00 and 1500 since most dysregulated behaviors seem to happen in the afternoon/evening Continue to Depakote sprinkles DR 1200mg bId at 1400 and 2100 since dysregulated behaviors seem to mostly happen 2nd shift (roughly equiv to Depakote ER 2500 mg q.h.s ...) Continue Zyprexa 20 mg q.h.s. (may very well tolerate lower dose as overseen by outpatient provider) Increased Prozac to 60mg (increased during this admission) Continue Xanax 0.5 mg t.i.d. p.r.n. for agitation; may give alone or with Geodon Continue Geodon 20 mg b.i.d. p.r.n. for agitation (*pt may get IM Geodon if requested for faster action) Continue Clonidine 0.1 mg t.i.d. Continue Trazodone 100 mg q.h.s. DC'd zyprexa 5mg in afternoon DC'd perphenazine (patient has no history of psychotic illness and very likely does not need this medication) Chronic conditions: 2. CHARLES positive appointment made with Rheumatology February 20 -daytime fatigue; b/l peripheral edema; mild dyspnea on exertion Discussed with Dr. Hamilton who recommends and following labs ordered: -Urine protein creatinine ratio -Rheumatoid factor -CCP antibody 3. Bilateral peripheral edema (lower/upper extrem):? Medication side effect (Zyprexa/Depakote)?? vs organic origin some reduction w/ lowering of medications Zyprexa and depakote r/u autoimune 4. Complaint of chronic struggles with inspiration: lungs CTA; CXR unremarkable Pulmonary function test: results reviewed, discussed with Dr. Melchor -elevated CHARLES and abnromal PFTs with a mild restriction with a mild diffusion impairment. -could be explained by her elevated BMI. -at this time dr. Melchor reports given lab work, at this time it does not look like she has lupus nor sjogrens nor scleroderma. Her cxr was good. needs a sleep study as an out pt (daytime drowsiness bringing up the possibility of obstructive sleep apnea) does not need an inpt ct scan but should f/up with outpt pulmonary and rheumatology. -in further discussion, Dr. Melchor agrees that CHARLES needs further evaluation, 5. Amenorrhea: Patient did get her menses on 01/11 Patient did have menses a few years ago while on control; has not had it since control discontinued about 2 years ago Labs: mostly WNL; will f/u with PCP/button tufting machine operator PSYCHIATRIC IMPRESSION/DIAGNOSIS:. Impression: Patient is a fun, intelligent, cooperative and friendly person. When she gets triggered by something she can decompensate severely, dissociate and become physically aggressive.? Patient is now diagnosed with ASD, PTSD, and intermittent explosive disorder.? From [facility], she carried the diagnosis of Schizoaffective disorder and mention of borderline personality disorder.? Both of these have been ruled out.? Patient has no present psychotic symptoms, denies any history of AVH or delusional thinking, and has no reported history anywhere that can be found of any psychotic symptoms (history includes lead technical writer having gone through numerous pages of notes from [facility] and other institutions).? She is linear, logical, articulate, insightful and organized in her thinking; she is organized in her behaviors.? Patient can have intrusive thoughts but only when triggered and this does not seem to be OCD.? She can have some rigid thinking in line with ASD.? Many of her dysregulated moments come from her PTSD being exacerbated.? Patient has well tolerated decrease of Zyprexa, decrease of Depakote and discontinuation of perphenazine. Primary dx: ASD. Patient's father and grandmother maintain that she met her milestones in childhood. 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 During childhood she attended [facility] [place] [place], treatment center typically for people with autism; in [place] when at [facility], she carried a dx of ASD.? As observed on the unit, Patient frequently rocks back and forth, when standing or sitting, while talking to others or calming herself down.? Patient does not have a sense of a person's personal space and will get much to close to a person when talking; she is redirectable and apologizes but she is unaware she is doing it and does not get verbal cues when conversation participant is backing away or trying to end a conversation; though redirectable, she will again get too close, again unaware.? In the milieu with peers, While she will sometimes spend time in the vicinity of others, she is mostly alongside people and not directly interacting with them.? That said, she will directly interact with staff. Patient does make eye contact, however she stares the entire time she is engaged. ? She can have a logical conversation, however she is concrete Patient has a blunted affect and though she can smile and laugh, she is otherwise expressionless with blunted affect. Patient has in flexibility regarding food when it is not as expected patient can get severely dysregulated Patient has some hypo-reactivity to loud noises and crowds of people. Conversely, She does get jokes, even subtle ones. Symptoms have clearly made life functioning extremely difficult.? It is unclear if patient has had neuropsych testing. She did spend time at [facility]. Regarding PTSD: Patient has a history of trauma from both childhood experiences, as well as trauma that occurred while on inpatient unit at [facility] and [place].? She has also been institutionalized since a young age, away from her mother and father, feeling abandoned.? She can have several regressed behaviors and some child-like interests. Regarding Dissociative Disorder:? Patient has episodes of depersonalization and derealization which the typically arise when triggered and during which time she will feel detached from herself, from her body and feel as if things are unreal and dream like, with out a sense of time; after they conclude and she is again in the present, she can be upset about some behaviors she engaged in during the dissociate period once made aware. Not BPD: Regarding past references to borderline personality disorder, Burial Vault Deliverer And Installer and team agree there have been no axis II traits expressed throughout her time in the hospital; none could be cleaned from records No psychotic illness: no psychotic symptoms past or present Reason for contiued inpatient stay Substantial Risk for: inability to function Time Spent With Patient Time: Total time managing care of this patient today ____ minutes.
[2023-01-25] MEDS: cloNIDine HCL 0.1 MG TABLET PO ×2 (14:09→20:23)
[2023-01-25] MEDS: Divalproex Sodium Sprinkles 125 MG CAP.DR.SPR 1250 MG PO ×2 (14:09→20:21)
[2023-01-25] MEDS: clonazePAM 0.5 MG TABLET PO (14:58)
[2023-01-25] MEDS: diphenhydrAMINE HCL 25 MG CAPSULE 50 MG PO (20:22)
[2023-01-25] MEDS: Multivitamin TABLET 1 TAB PO (20:22)
[2023-01-25] MEDS: Famotidine 20 MG TABLET PO (20:22)
[2023-01-25] MEDS: OLANZapine 10 MG TABLET 20 MG PO (20:22)
[2023-01-25] MEDS: traZODone HCL 100 MG TABLET PO (20:23)
[2023-01-25 21:03] VITALS: BP 113/68; PULSE 88; RESP 18; TEMP 36.9; O2SAT 97
[2023-01-26 08:32] VITALS: BP 90/51; PULSE 61; RESP 16; TEMP 36.2; O2SAT 96
[2023-01-26] MEDS: FLUoxetine HCl 20 MG CAPSULE 60 MG PO (08:34)
[2023-01-26] MEDS: Sennosides/Docusate Sodium TABLET 2 TAB PO ×2 (08:34→20:42)
--- NOTE | 2023-01-26 11:03 | HO.PSYCHPN ---
Subjective Subjective Date of Service: 01/26/23 Reason For Visit: Mood Dysregulation Interim History: Briefly met with patient; discussed with team Patient calm in good behavioral control. Tired from yesterday's family visitations Mental Status Exam Mental Status Exam Narrative: Pt is alert and oriented; behavior is cooperative, calm; dressed in casual attire, mood is described as okay and affect congruent, little brighter; eye contact appropriate; Speech is regular rate, volume, prosody; some psychomotor retardation present; intermittent psychomotor agitaiton present; thought process is organized and goal directed; Thought content is on trying not to feel hopeless, wanting off unit; past trauma, treatment; otherwise pertinent to relevant topics and without any delusional content, paranoid ideations or grandiosity; no SI; no HI. No AVH and there is no evidence of perceptual disturbance.. Patients insight and judgment are impaired. Diagnostics Vital Signs (24Hr): Vital Signs - 24 hr 01/25/23 21:03 01/26/23 08:32 Temperature 98.4 F 97.1 F Pulse Rate 88 61 Respiratory Rate 18 16 Blood Pressure 113/68 90/51 L Pulse Oximetry 97 96 Oxygen Delivery Method Room Air Room Air BMI result Body Mass Index 38.1 Labs 12/27/22 20:00 12/27/22 19:59 Imaging Radiology Impressions: ITS Impressions Hand X-Ray 01/18/23 23:35 IMPRESSION: No acute fracture or dislocation of either hand. Hand X-Ray 01/18/23 23:35 IMPRESSION: No acute fracture or dislocation of either hand. Medications Medications Current Medications Acetaminophen (Acetaminophen 325 Mg Tablet) 650 mg PO Q6H PRN PRN Reason: Headache/Pain Mild Scale (1-3) Al Hydroxide/Mg Hydroxide (Magnesium Hydrox/Alum Hydrox 30 Ml Oral.Susp) 30 ml PO Q6H PRN PRN Reason: Heartburn/Nausea Last Admin: 12/31/22 08:29 Dose: 30 ml Alprazolam (Alprazolam 0.5 Mg Tablet) 0.5 mg PO TID PRN PRN Reason: Anxiety Last Admin: 01/24/23 20:33 Dose: 0.5 mg Bacitracin (Bacitracin Oint 14 Gm Tube) 1 appl TOPICAL TID [facility]; Protocol Last Admin: 01/26/23 09:52 Dose: Not Given Clonazepam (Clonazepam 0.5 Mg Tablet) 0.5 mg PO BID@1100,1500 [facility] Last Admin: 01/25/23 14:58 Dose: 0.5 mg Clonidine HCl (Clonidine Hcl 0.1 Mg Tablet) 0.1 mg PO BID@1400,2100 [facility]; Protocol Last Admin: 01/25/23 20:23 Dose: 0.1 mg Diphenhydramine HCl (Diphenhydramine Hcl 25 Mg Capsule) 50 mg PO BEDTIME [facility] Last Admin: 01/25/23 20:22 Dose: 50 mg Divalproex Sodium (Divalproex Sodium Sprinkles 125 Mg Donald.) 1,250 mg PO BID@1400,2100 [facility] Last Admin: 01/25/23 20:21 Dose: 1,250 mg Famotidine (Famotidine 20 Mg Tablet) 20 mg PO BEDTIME [facility] Last Admin: 01/25/23 20:22 Dose: 20 mg Famotidine (Famotidine 20 Mg Tablet) 20 mg PO DAILY PRN PRN Reason: GERD Fluoxetine HCl (Fluoxetine Hcl 20 Mg Capsule) 60 mg PO DAILY [facility] Last Admin: 01/26/23 08:34 Dose: 60 mg Furosemide (Furosemide 20 Mg Tablet) 20 mg PO BID@0900,1700 [facility]; Protocol Last Admin: 01/26/23 08:37 Dose: Not Given Lactulose (Lactulose 20 Gm/30 Ml Solution) 20 gm PO DAILY [facility] Last Admin: 01/26/23 08:36 Dose: Not Given Loratadine (Loratadine 10 Mg Tablet) 10 mg PO DAILY PRN PRN Reason: congestion Magnesium Hydroxide (Milk Of Magnesia 30 Ml Oral.Susp) 30 ml PO DAILY [facility] Last Admin: 01/26/23 08:37 Dose: Not Given Melatonin (Melatonin 3 Mg Tablet) 3 mg PO BEDTIME PRN PRN Reason: insomnia Last Admin: 01/24/23 21:55 Dose: 3 mg Multivitamins/Vitamin C (Multivitamin Tablet) 1 tab PO BEDTIME [facility] Last Admin: 01/25/23 20:22 Dose: 1 tab Naproxen (Naproxen 500 Mg Tablet) 500 mg PO Q12H PRN PRN Reason: mild pain Last Admin: 01/22/23 13:41 Dose: 500 mg Olanzapine (Olanzapine 10 Mg Tablet) 20 mg PO BEDTIME [facility] Last Admin: 01/25/23 20:22 Dose: 20 mg Senna/Docusate Sodium (Sennosides/Docusate Sodium Tablet) 2 tab PO BID [facility] Last Admin: 01/26/23 08:34 Dose: 2 tab Trazodone HCl (Trazodone Hcl 50 Mg Tablet) 50 mg PO BEDTIME PRN PRN Reason: insomnia Last Admin: 01/24/23 00:01 Dose: 50 mg Trazodone HCl (Trazodone Hcl 100 Mg Tablet) 100 mg PO BEDTIME [facility] Last Admin: 01/25/23 20:23 Dose: 100 mg Ziprasidone (Ziprasidone 20 Mg Capsule) 20 mg PO BID PRN PRN Reason: Agitation Last Admin: 01/21/23 16:10 Dose: 20 mg Allergies Allergies Allergy/AdvReac Type Severity Reaction Status Date / Time chlorpromazine Allergy Anaphylaxis Verified 12/27/22 16:37 [From Thorazine] nut - unspecified Allergy Anxiety Verified 12/27/22 16:37 haloperidol [From Haldol] AdvReac Agitated Verified 12/27/22 16:37 lithium AdvReac Hives Verified 12/27/22 16:37 Assessment & Plan Assessment & Plan (1) Autism: Status: Suspected Code(s): F84.0 - Autistic disorder (2) PTSD (post-traumatic stress disorder): Status: Suspected Code(s): F43.10 - Post-traumatic stress disorder, unspecified (3) Intermittent explosive disorder: Status: Acute Code(s): F63.81 - Intermittent explosive disorder (4) CHARLES positive: Status: Acute Code(s): R76.8 - Other specified abnormal immunological findings in serum (5) Chronic restrictive lung disease: Status: Acute Code(s): J98.4 - Other disorders of lung (6) Peripheral edema: Status: Acute Code(s): R60.9 - Edema, unspecified (7) Amenorrhea: Status: Acute Code(s): N91.2 - Amenorrhea, unspecified Plan HPI: Patient is a bright, kind 22-year-old female, well known to this service, with history of Autism, PTSD recently discharged from on 12/25/2022 (and recently dc'd from [facility] after 5 years) who re-presents 2 days later for resurgence of suicidal ideation, dissociative episode and having run out during therapy session, into the street trying to hit by traffic and then eloping again from crisis again trying to get hit by oncoming cars. This has happened after ever discharge since coming to [facility]. Patient reports that day she left she had the intrusive thought that I am gonna screw this up again which just built and built until it overwhelmed her. Patient says she tried very hard to resist self-harm but the constant intrusive thought was unrelenting. She reports that on the way into the therapist building she got triggered as setting and some other people around reminded her of formerly [facility]; already being on edge, this launched her into a full-blown panic attack; she dissociated and ran into the street wanting to . Patient says she just cannot seem to control. She also worries that she is unsafe living at her grandmother's, whom she loves dearly, because her grandmother is not able to sense when patient is starting to unravel and cannot preemptively help ground her and prevent dysregulated/dissociate of episode; patient says that sometimes she is able to alert her grandmother that she is headed this direction but many time she is not. Patient says she needs to live in a place with staff who were trained who can help divert her from such episodes. Passive SI remains but none active. Patient does not want to and wants to continue with treatment therapy. It is unclear if patient meets full criteria for OCD diagnosis however she has OCD like symptoms and will thus increase Prozac which has thus far been well tolerated. Hospital course: 12/30 stabilizing; continue current treatment plan 12/31 patient continues to stabilize; no change in medications at this time however will likely seek to reduce possibly Depakote her Zyprexa level; may increase Prozac for PTSD/OCD like symptoms 01/01 stabilizing 01/02 tough night, needing geodon prns; asked to change depakote to sprinkles and maybe lower dose since tired in daytime and pt may be stable at lower dose 01/03 will add short trial of Lasix 20mg BID for continued lower limb edema (Jamal stockings tried and ripped) 01/06/23- Continue current plan and regime 01/07 continue current treatment plan for now 01/09 patient is significantly more depressed, hopeless and wishing she were . Situational stressors are significantly contributory including limited options for disposition and stressors on the unit; however patient is also reflecting on her life, her chronic symptoms and long history of living in institutions, creating a hopelessness that her things will get better. It is possible that changing Depakote formulation to DR could be contributory, however theoretically it is the same total daily dose. -patient has been in an institution more time the not since 6 years old and has spent the last 5 years in a [facility]; it was likely an unreasonable expectation that she would be able to immediately discharge and be successful in community. Rather acclimation will be a gradual process. At this time will increase Prozac to 60 mg to see if this can help. Currently patient is depressed and suicidal and in imminent risk of harm to self if discharged. 01/07 for patient a little bit improved, depression a little lower possibly due to increased Prozac 01/12/23 Continue current plan. 01/13/23 Continue current plan. 01/14 patient remains depressed but less so and she denies SI bilateral lower limb edema has decreased since getting her menses. Discussed disposition plans with social media strategist and reviewed possible options and concerns from both DDS and DM; currently recommendation from DDS is for patient to undergo evaluation by Dr. Caputo; team agrees it will help to organize a joint meeting with both DDS in [facility] to clarify and discussed situation and options. 01/15 bilateral hand tremor; patient reports it is chronic and comes and goes but a little worse today 01/16 continue current treatment plan 3.31 depressed; agrees to start lactulose Squirrel Worker called Lou Mitchell, supervising case assembler at [facility] and discussed treatment; Lou explained potentially collaborative involvement with [facility] and that patient was accepted to [facility] and approved for virtual assessment. 01/19 to 01/20 multiple restraints over weekend / pt dysregulated over weekend; continues to seem more likely situational rather than due to past med changes; will consult w/ collegue for med suggestions. Currently, pt continues to need structured environment 01/22 depression remains maybe we worsening some; continues to seem mostly situational as her situation is causing a sense of hopelessness, patient worried she will never improve enough to be off a unit. Will add clonazepam scheduled low-dose to see if it can help with afternoon/evening dysregulated behaviors. Dr. Elaine consulted who agrees to meet with patient; casualty underwriter looks forward to Dr. Elaine as observations/recommendations. 01/23 continue current treatment plan 01/24 continue current tx plan; reached out to ASD specialist regarding [facility] assessment; waiting for return call 01/25 continue current treatment plan; PLAN: *Started Lasix 20mg BID on 01/03 for b/l lower limb edema Bilateral lower limbs with improvement; reviewed with hospitalist VICTOR MANUEL who agrees and recommends continued Lasix 20 mg b.i.d. or 40 mg daily whichever patient prefers 1. ASD/PTSD/intermittent explosive disorder: ADDED clonazepam 0.5 b.i.d. at 11:00 and 1500 since most dysregulated behaviors seem to happen in the afternoon/evening Continue to Depakote sprinkles DR 1200mg bId at 1400 and 2100 since dysregulated behaviors seem to mostly happen 2nd shift (roughly equiv to Depakote ER 2500 mg q.h.s ...) Continue Zyprexa 20 mg q.h.s. (may very well tolerate lower dose as overseen by outpatient provider) Increased Prozac to 60mg (increased during this admission) Continue Xanax 0.5 mg t.i.d. p.r.n. for agitation; may give alone or with Geodon Continue Geodon 20 mg b.i.d. p.r.n. for agitation (*pt may get IM Geodon if requested for faster action) Continue Clonidine 0.1 mg t.i.d. Continue Trazodone 100 mg q.h.s. DC'd zyprexa 5mg in afternoon DC'd perphenazine (patient has no history of psychotic illness and very likely does not need this medication) Chronic conditions: 2. CHARLES positive appointment made with Rheumatology February 20 -daytime fatigue; b/l peripheral edema; mild dyspnea on exertion Discussed with Dr. Hamilton who recommends and following labs ordered: -Urine protein creatinine ratio -Rheumatoid factor -CCP antibody 3. Bilateral peripheral edema (lower/upper extrem):? Medication side effect (Zyprexa/Depakote)?? vs organic origin some reduction w/ lowering of medications Zyprexa and depakote r/u autoimune 4. Complaint of chronic struggles with inspiration: lungs CTA; CXR unremarkable Pulmonary function test: results reviewed, discussed with Dr. Melchor -elevated CHARLES and abnromal PFTs with a mild restriction with a mild diffusion impairment. -could be explained by her elevated BMI. -at this time dr. Melchor reports given lab work, at this time it does not look like she has lupus nor sjogrens nor scleroderma. Her cxr was good. needs a sleep study as an out pt (daytime drowsiness bringing up the possibility of obstructive sleep apnea) does not need an inpt ct scan but should f/up with outpt pulmonary and rheumatology. -in further discussion, Dr. Melchor agrees that CHARLES needs further evaluation, 5. Amenorrhea: Patient did get her menses on 01/11 Patient did have menses a few years ago while on control; has not had it since control discontinued about 2 years ago Labs: mostly WNL; will f/u with PCP/standpipe tender PSYCHIATRIC IMPRESSION/DIAGNOSIS:. Impression: Patient is a fun, intelligent, cooperative and friendly person. When she gets triggered by something she can decompensate severely, dissociate and become physically aggressive.? Patient is now diagnosed with ASD, PTSD, and intermittent explosive disorder.? From [facility], she carried the diagnosis of Schizoaffective disorder and mention of borderline personality disorder.? Both of these have been ruled out.? Patient has no present psychotic symptoms, denies any history of AVH or delusional thinking, and has no reported history anywhere that can be found of any psychotic symptoms (history includes casualty underwriter having gone through numerous pages of notes from [facility] and other institutions).? She is linear, logical, articulate, insightful and organized in her thinking; she is organized in her behaviors.? Patient can have intrusive thoughts but only when triggered and this does not seem to be OCD.? She can have some rigid thinking in line with ASD.? Many of her dysregulated moments come from her PTSD being exacerbated.? Patient has well tolerated decrease of Zyprexa, decrease of Depakote and discontinuation of perphenazine. Primary dx: ASD. Patient's father and grandmother maintain that she met her milestones in childhood. 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 During childhood she attended [facility] [place] in [place], treatment center typically for people with autism; in [place] when at [facility], she carried a dx of ASD.? As observed on the unit, Patient frequently rocks back and forth, when standing or sitting, while talking to others or calming herself down.? Patient does not have a sense of a person's personal space and will get much to close to a person when talking; she is redirectable and apologizes but she is unaware she is doing it and does not get verbal cues when conversation participant is backing away or trying to end a conversation; though redirectable, she will again get too close, again unaware.? In the milieu with peers, While she will sometimes spend time in the vicinity of others, she is mostly alongside people and not directly interacting with them.? That said, she will directly interact with staff. Patient does make eye contact, however she stares the entire time she is engaged. ? She can have a logical conversation, however she is concrete Patient has a blunted affect and though she can smile and laugh, she is otherwise expressionless with blunted affect. Patient has in flexibility regarding food when it is not as expected patient can get severely dysregulated Patient has some hypo-reactivity to loud noises and crowds of people. Conversely, She does get jokes, even subtle ones. Symptoms have clearly made life functioning extremely difficult.? It is unclear if patient has had neuropsych testing. She did spend time at [facility]. Regarding PTSD: Patient has a history of trauma from both childhood experiences, as well as trauma that occurred while on inpatient unit at [facility] and [place].? She has also been institutionalized since a young age, away from her mother and father, feeling abandoned.? She can have several regressed behaviors and some child-like interests. Regarding Dissociative Disorder:? Patient has episodes of depersonalization and derealization which the typically arise when triggered and during which time she will feel detached from herself, from her body and feel as if things are unreal and dream like, with out a sense of time; after they conclude and she is again in the present, she can be upset about some behaviors she engaged in during the dissociate period once made aware. Not BPD: Regarding past references to borderline personality disorder, Squirrel Worker and team agree there have been no axis II traits expressed throughout her time in the hospital; none could be cleaned from records No psychotic illness: no psychotic symptoms past or present Reason for contiued inpatient stay Substantial Risk for: inability to function Time Spent With Patient Time: Total time managing care of this patient today ____ minutes.
[2023-01-26] MEDS: clonazePAM 0.5 MG TABLET PO ×2 (11:07→14:17)
[2023-01-26] MEDS: Divalproex Sodium Sprinkles 125 MG CAP.DR.SPR 1250 MG PO ×2 (14:20→20:42)
[2023-01-26 14:27] VITALS: BP 94/53; PULSE 85
[2023-01-26 17:05] VITALS: BP 98/46; PULSE 69; TEMP 36.4
[2023-01-26] MEDS: traZODone HCL 100 MG TABLET PO (20:41)
[2023-01-26] MEDS: cloNIDine HCL 0.1 MG TABLET PO (20:41)
[2023-01-26] MEDS: OLANZapine 10 MG TABLET 20 MG PO (20:42)
[2023-01-26] MEDS: Famotidine 20 MG TABLET PO (20:42)
[2023-01-26] MEDS: Multivitamin TABLET 1 TAB PO (20:42)
[2023-01-26] MEDS: traZODone HCL 50 MG TABLET PO (20:42)
[2023-01-26] MEDS: Melatonin 3 MG TABLET PO (20:42)
[2023-01-26] MEDS: diphenhydrAMINE HCL 25 MG CAPSULE 50 MG PO (20:42)
[2023-01-27 09:31] VITALS: BP 97/53; PULSE 66; RESP 16; TEMP 36.2; O2SAT 97
[2023-01-27] MEDS: Bacitracin Oint 14 GM TUBE 1 APPL TOPICAL ×2 (09:32→17:12)
[2023-01-27] MEDS: Sennosides/Docusate Sodium TABLET 2 TAB PO ×2 (09:33→20:17)
[2023-01-27] MEDS: FLUoxetine HCl 20 MG CAPSULE 60 MG PO (09:33)
[2023-01-27] MEDS: Lactulose 20 GM/30 ML SOLUTION PO (09:35)
[2023-01-27] MEDS: clonazePAM 0.5 MG TABLET PO ×2 (10:40→14:14)
--- NOTE | 2023-01-27 11:09 | P.PNPSI_ITS ---
Subjective Subjective Date of Service: 01/27/23 Reason For Visit: Mood Dysregulation Interim History: Met with patient; discussed with team Patient reports she is feeling okay today. She feels that the clonazepam is helping her stay regulated and not get out of control and would like to continue it for now. Mental Status Exam Mental Status Exam Narrative: Pt is alert and oriented; behavior is cooperative, calm; dressed in casual attire, mood is described as okay and affect congruent, little brighter; eye contact appropriate; Speech is regular rate, volume, prosody; some psychomotor retardation present; intermittent psychomotor agitaiton; thought process is organized and goal directed; Thought content is on trying not to feel hopeless, treatment; otherwise pertinent to relevant topics and without any delusional content, paranoid ideations or grandiosity; no SI; no HI. No AVH and there is no evidence of perceptual disturbance.. Patients insight and judgment are impaired. Diagnostics Vital Signs (24Hr): Vital Signs - 24 hr 01/26/23 14:27 01/26/23 17:05 01/27/23 09:31 Temperature 97.6 F 97.2 F Pulse Rate 85 69 66 Respiratory Rate 16 Blood Pressure 94/53 L 98/46 L 97/53 L Pulse Oximetry 97 Oxygen Delivery Method Room Air BMI result Body Mass Index 38.1 Labs 12/27/22 20:00 12/27/22 19:59 Imaging Radiology Impressions: ITS Impressions Hand X-Ray 01/18/23 23:35 IMPRESSION: No acute fracture or dislocation of either hand. Hand X-Ray 01/18/23 23:35 IMPRESSION: No acute fracture or dislocation of either hand. Medications Medications Current Medications Acetaminophen (Acetaminophen 325 Mg Tablet) 650 mg PO Q6H PRN PRN Reason: Headache/Pain Mild Scale (1-3) Al Hydroxide/Mg Hydroxide (Magnesium Hydrox/Alum Hydrox 30 Ml Oral.Susp) 30 ml PO Q6H PRN PRN Reason: Heartburn/Nausea Last Admin: 12/31/22 08:29 Dose: 30 ml Bacitracin (Bacitracin Oint 14 Gm Tube) 1 appl TOPICAL TID [facility]; Protocol Last Admin: 01/27/23 09:32 Dose: 1 appl Clonazepam (Clonazepam 0.5 Mg Tablet) 0.5 mg PO BID@1100,1500 [facility] Last Admin: 01/27/23 10:40 Dose: 0.5 mg Clonidine HCl (Clonidine Hcl 0.1 Mg Tablet) 0.1 mg PO BID@1400,2100 [facility]; Protocol Last Admin: 01/26/23 20:41 Dose: 0.1 mg Diphenhydramine HCl (Diphenhydramine Hcl 25 Mg Capsule) 50 mg PO BEDTIME [facility] Last Admin: 01/26/23 20:42 Dose: 50 mg Divalproex Sodium (Divalproex Sodium Sprinkles 125 Mg Cap.) 1,250 mg PO BID@1400,2100 [facility] Last Admin: 01/26/23 20:42 Dose: 1,250 mg Famotidine (Famotidine 20 Mg Tablet) 20 mg PO BEDTIME [facility] Last Admin: 01/26/23 20:42 Dose: 20 mg Famotidine (Famotidine 20 Mg Tablet) 20 mg PO DAILY PRN PRN Reason: GERD Fluoxetine HCl (Fluoxetine Hcl 20 Mg Capsule) 60 mg PO DAILY [facility] Last Admin: 01/27/23 09:33 Dose: 60 mg Furosemide (Furosemide 20 Mg Tablet) 20 mg PO BID@0900,1700 [facility]; Protocol Last Admin: 01/27/23 09:33 Dose: Not Given Lactulose (Lactulose 20 Gm/30 Ml Solution) 20 gm PO DAILY [facility] Last Admin: 01/27/23 09:35 Dose: 20 gm Loratadine (Loratadine 10 Mg Tablet) 10 mg PO DAILY PRN PRN Reason: congestion Magnesium Hydroxide (Milk Of Magnesia 30 Ml Oral.Susp) 30 ml PO DAILY [facility] Last Admin: 01/27/23 09:37 Dose: Not Given Melatonin (Melatonin 3 Mg Tablet) 3 mg PO BEDTIME PRN PRN Reason: insomnia Last Admin: 01/26/23 20:42 Dose: 3 mg Multivitamins/Vitamin C (Multivitamin Tablet) 1 tab PO BEDTIME [facility] Last Admin: 01/26/23 20:42 Dose: 1 tab Naproxen (Naproxen 500 Mg Tablet) 500 mg PO Q12H PRN PRN Reason: mild pain Last Admin: 01/22/23 13:41 Dose: 500 mg Olanzapine (Olanzapine 10 Mg Tablet) 20 mg PO BEDTIME [facility] Last Admin: 01/26/23 20:42 Dose: 20 mg Senna/Docusate Sodium (Sennosides/Docusate Sodium Tablet) 2 tab PO BID [facility] Last Admin: 01/27/23 09:33 Dose: 2 tab Trazodone HCl (Trazodone Hcl 50 Mg Tablet) 50 mg PO BEDTIME PRN PRN Reason: insomnia Last Admin: 01/26/23 20:42 Dose: 50 mg Trazodone HCl (Trazodone Hcl 100 Mg Tablet) 100 mg PO BEDTIME [facility] Last Admin: 01/26/23 20:41 Dose: 100 mg Ziprasidone (Ziprasidone 20 Mg Capsule) 20 mg PO BID PRN PRN Reason: Agitation Last Admin: 01/21/23 16:10 Dose: 20 mg Allergies Allergies Allergy/AdvReac Type Severity Reaction Status Date / Time chlorpromazine Allergy Anaphylaxis Verified 12/27/22 16:37 [From Thorazine] nut - unspecified Allergy Anxiety Verified 12/27/22 16:37 haloperidol [From Haldol] AdvReac Agitated Verified 12/27/22 16:37 lithium AdvReac Hives Verified 12/27/22 16:37 Assessment & Plan Assessment & Plan (1) Autism: Status: Suspected Code(s): F84.0 - Autistic disorder (2) PTSD (post-traumatic stress disorder): Status: Suspected Code(s): F43.10 - Post-traumatic stress disorder, unspecified (3) Intermittent explosive disorder: Status: Acute Code(s): F63.81 - Intermittent explosive disorder (4) CHARLES positive: Status: Acute Code(s): R76.8 - Other specified abnormal immunological findings in serum (5) Chronic restrictive lung disease: Status: Acute Code(s): J98.4 - Other disorders of lung (6) Peripheral edema: Status: Acute Code(s): R60.9 - Edema, unspecified (7) Amenorrhea: Status: Acute Code(s): N91.2 - Amenorrhea, unspecified Plan HPI: Patient is a bright, kind 22-year-old female, well known to this service, with history of Autism, PTSD recently discharged from on 12/25/2022 (and recently dc'd from [facility] after 5 years) who re-presents 2 days later for resurgence of suicidal ideation, dissociative episode and having run out during therapy session, into the street trying to hit by traffic and then eloping again from crisis again trying to get hit by oncoming cars. This has h appened after ever discharge since coming to [facility]. Patient reports that day she left she had the intrusive thought that I am gonna screw this up again which just built and built until it overwhelmed her. Patient says she tried very hard to resist self-harm but the constant intrusive thought was unrelenting. She reports that on the way into the therapist building she got triggered as setting and some other people around [facility]; already being on edge, this launched her into a full-blown panic attack; she dissociated and ran into the street wanting to . Patient says she just cannot seem to control. She also worries that she is unsafe living at her grandmother's, whom she loves dearly, because her grandmother is not able to sense when patient is starting to unravel and cannot preemptively help ground her and prevent dysregulated/dissociate of episode; patient says that sometimes she is able to alert her grandmother that she is headed this direction but many time she is not. Patient says she needs to live in a place with staff who were trained who can help divert her from such episodes. Passive SI remains but none active. Patient does not want to and wants to continue with treatment therapy. It is unclear if patient meets full criteria for OCD diagnosis however she has OCD like symptoms and will thus increase Prozac which has thus far been well tolerated. Hospital course: 12/30 stabilizing; continue current treatment plan 12/31 patient continues to stabilize; no change in medications at this time clarence abebe will likely seek to reduce possibly Depakote her Zyprexa level; may increase Prozac for PTSD/OCD like symptoms 01/01 stabilizing 01/02 tough night, needing geodon prns; asked to change depakote to sprinkles and maybe lower dose since tired in daytime and pt may be stable at lower dose 01/03 will add short trial of Lasix 20mg BID for continued lower limb edema (Jamal stockings tried and ripped) 01/06/23- Continue current plan and regime 01/07 continue current treatment plan for now 01/09 patient is significantly more depressed, hopeless and wishing she were . Situational stressors are significantly contributory including limited options for disposition and stressors on the unit; however patient is also reflecting on her life, her chronic symptoms and long history of living in institutions, creating a hopelessness that her things will get better. It is possible that changing Depakote formulation to DR could be contributory, however theoretically it is the same total daily dose. -patient has been in an institution more time the not since 6 years old and has spent the last 5 years in a [facility]; it was likely an unreasonable expectation that she would be able to immediately discharge and be successful in community. Rather acclimation will be a gradual process. At this time will increase Prozac to 60 mg to see if this can help. Currently patient is depressed and suicidal and in imminent risk of harm to self if discharged. 01/07 for patient a little bit improved, depression a little lower possibly due to increased Prozac 01/12/23 Continue current plan. 01/13/23 Continue current plan. 01/14 patient remains depressed but less so and she denies SI bilateral lower limb edema has decreased since getting her menses. Discussed disposition plans with adoption social worker and reviewed possible options and concerns from both DDS and DM; currently recommendation from DDS is for patient to undergo evaluation by Dr. Caputo; team agrees it will help to organize a joint meeting with both DDS in DM to clarify and discussed situation and options. 01/15 bilateral hand tremor; patient reports it is chronic and comes and goes but a little worse today 01/16 continue current treatment plan 3.31 depressed; agrees to start lactulose International Travel Consultant called Lou Mitchell, supervising case therapist at [facility] and discussed treatment; Lou explained potentially collaborative involvement with [facility] and that patient was accepted to [facility] and approved for virtual assessment. 01/19 to 01/20 multiple restraints over weekend 01/21 pt dysregulated over weekend; continues to seem more likely situational rather than due to past med changes; will consult w/ collegue for med suggestions. Currently, pt continues to need structured environment 01/22 depression remains maybe we worsening some; continues to seem mostly situational as her situation is causing a sense of hopelessness, patient worried she will never improve enough to be off a unit. Will add clonazepam scheduled low-dose to see if it can help with afternoon/evening dysregulated behaviors. Dr. Elaine consulted who agrees to meet with patient; technical publications writer looks forward to Dr. Elaine as observations/recommendations. 01/23 continue current treatment plan 01/24 continue current tx plan; reached out to ASD specialist regarding [facility] assessment; waiting for return call 01/25 continue current treatment plan; 01/27 continue treatment plan PLAN: *Started Lasix 20mg BID on 01/03 for b/l lower limb edema Bilateral lower limbs with improvement; reviewed with hospitalist VICTOR MANUEL who agrees and recommends continued Lasix 20 mg b.i.d. or 40 mg daily whichever patient prefers 1. ASD/PTSD/intermittent explosive disorder: ADDED clonazepam 0.5 b.i.d. at 11:00 and 1500 since most dysregulated behaviors seem to happen in the afternoon/evening Continue to Depakote sprinkles DR 1200mg bId at 1400 and 2100 since dysregulated behaviors seem to mostly happen 2nd shift (roughly equiv to Depakote ER 2500 mg q.h.s ...) Continue Zyprexa 20 mg q.h.s. (may very well tolerate lower dose as overseen by outpatient provider) Increased Prozac to 60mg (increased during this admission) Continue Xanax 0.5 mg t.i.d. p.r.n. for agitation; may give alone or with Geodon Continue Geodon 20 mg b.i.d. p.r.n. for agitation (*pt may get IM Geodon if requested for faster action) Continue Clonidine 0.1 mg t.i.d. Continue Trazodone 100 mg q.h.s. DC'd zyprexa 5mg in afternoon DC'd perphenazine (patient has no history of psychotic illness and very likely does not need this medication) Chronic conditions: 2. CHARLES positive appointment made with Rheumatology February 20 -daytime fatigue; b/l peripheral edema; mild dyspnea on exertion Discussed with Dr. Hamilton who recommends and following labs ordered: -Urine protein creatinine ratio -Rheumatoid factor -CCP antibody 3. Bilateral peripheral edema (lower/upper extrem):? Medication side effect ( Zyprexa/Depakote)?? vs organic origin some reduction w/ lowering of medications Zyprexa and depakote r/u autoimune 4. Complaint of chronic struggles with inspiration: lungs CTA; CXR unremarkable Pulmonary function test: results reviewed, discussed with Dr. Melchor -elevated CHARLES and abnromal PFTs with a mild restriction with a mild diffusion impairment. -could be explained by her elevated BMI. -at this time dr. Melchor reports given lab work, at this time it does not look like she has lupus nor sjogrens nor scleroderma. Her cxr was good. needs a sleep study as an out pt (daytime drowsiness bringing up the possibility of obstructive sleep apnea) does not need an inpt ct scan but should f/up with outpt pulmonary and rheumatology. -in further discussion, Dr. Melchor agrees that CHARLES needs further evaluation, 5. Amenorrhea: Patient did get her menses on 01/11 Patient did have menses a few years ago while on control; has not had it since control discontinued about 2 years ago Labs: mostly WNL; will f/u with PCP/neurodiagnostic technologist PSYCHIATRIC IMPRESSION/DIAGNOSIS:. Impression: Patient is a fun, intelligent, cooperative and friendly person. When she gets triggered by something she can decompensate severely, dissociate and become physically aggressive.? Patient is now diagnosed with ASD, PTSD, and intermittent explosive disorder.? From [facility], she carried the diagnosis of Schizoaffective disorder and mention of borderline personality disorder.? Both of these have been ruled out.? Patient has no present psychotic symptoms, denies any history of AVH or delusional thinking, and has no reported history anywhere that can be found of any psychotic symptoms (history includes technical publications writer having gone through numerous pages of notes from [facility] and other institutions).? She is linear, logical, articulate, insightful and organized in her thinking; she is organized in her behaviors.? Patient can have intrusive thoughts but only when triggered and this does not seem to be OCD.? She can have some rigid thinking in line with ASD.? Many of her dysregulated moments come from her PTSD being exacerbated.? Patient has well tolerated decrease of Zyprexa, decrease of Depakote and discontinuation of perphenazine. Primary dx: ASD. Patient's father and grandmother maintain that she met her milestones in childhood. 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 During childhood she attended [facility] in [place], treatment center typically for people with autism; in [place] when at [facility], she carried a dx of ASD.? As observed on the unit, Patient frequently rocks back and forth, when standing or sitting, while talking to others or calming herself down.? Patient does not have a sense of a person's personal space and will get much to close to a person when talking; she is redirectable and apologizes but she is unaware she is doing it and does not get verbal cues when conversation participant is backing away or trying to end a conversation; though redirectable, she will again get too close, again unaware.? In the milieu with peers, While she will sometimes spend time in the vicinity of others, she is mostly alongside people and not directly interacting with them.? That said, she will directly interact with staff. Patient does make eye contact, however she stares the entire time she is engaged. ? She can have a logical conversation, however she is concrete Patient has a blunted affect and though she can smile and laugh, she is otherwise expressionless with blunted affect. Patient has in flexibility regarding food when it is not as expected patient can get severely dysregulated Patient has some hypo-reactivity to loud noises and crowds of people. Conversely, She does get jokes, even subtle ones. Symptoms have clearly made life functioning extremely difficult.? It is unclear if patient has had neuropsych testing. She did spend time at [facility]. Regarding PTSD: Patient has a history of trauma from both childhood experiences, as well as trauma that occurred while on inpatient unit at [facility] and [place].? She has also been institutionalized since a young age, away from her mother and father, feeling abandoned.? She can have several regressed behaviors and some child-like interests. Regarding Dissociative Disorder:? Patient has episodes of depersonalization and derealization which the typically arise when triggered and during which time she will feel detached from herself, from her body and feel as if things are unreal and dream like, with out a sense of time; after they conclude and she is again in the present, she can be upset about some behaviors she engaged in during the dissociate period once made aware. Not BPD: Regarding past references to borderline personality disorder, International Travel Consultant and team agree there have been no axis II traits expressed throughout her time in the hospital; none could be cleaned from records No psychotic illness: no psychotic symptoms past or present Patient educated on: diagnosis and medication risk/benefits Informed Consent: understands Reason for contiued inpatient stay Substantial Risk for: inability to function and rapid decompensation Time Spent With Patient Time: Total time managing care of this patient today ____ minutes.
[2023-01-27] MEDS: Divalproex Sodium Sprinkles 125 MG CAP.DR.SPR 1250 MG PO ×2 (14:10→20:18)
[2023-01-27 14:16] VITALS: BP 110/63; PULSE 91
[2023-01-27] MEDS: cloNIDine HCL 0.1 MG TABLET PO ×2 (14:17→20:17)
[2023-01-27 18:55] VITALS: BP 108/58; PULSE 94; TEMP 36.9; O2SAT 96
--- NOTE | 2023-01-27 18:56 | PC.NURSE ---
Patient refused Lasix because she does not think her feet or legs feel/look swollen. Patient c/o needing to have a bowel movement but declined MOM or prune juice.
[2023-01-27] MEDS: traZODone HCL 100 MG TABLET PO (20:17)
[2023-01-27] MEDS: Multivitamin TABLET 1 TAB PO (20:17)
[2023-01-27] MEDS: Famotidine 20 MG TABLET PO (20:17)
[2023-01-27] MEDS: diphenhydrAMINE HCL 25 MG CAPSULE 50 MG PO (20:18)
[2023-01-27] MEDS: OLANZapine 10 MG TABLET 20 MG PO (20:18)
[2023-01-28 08:28] VITALS: BP 111/53; PULSE 66; RESP 16; TEMP 36.6; O2SAT 97
[2023-01-28] MEDS: Sennosides/Docusate Sodium TABLET 2 TAB PO ×2 (08:31→22:58)
[2023-01-28] MEDS: Furosemide 20 MG TABLET PO (08:31)
[2023-01-28] MEDS: FLUoxetine HCl 20 MG CAPSULE 60 MG PO (08:31)
--- NOTE | 2023-01-28 08:42 | PC.NURSE ---
Pt rousable from sleep for meds, provided with breakfast tray, took all meds except Lactulose and bacitracin. Pleasant and drowsy in interaction. Reports good sleep last night.
[2023-01-28] MEDS: Divalproex Sodium Sprinkles 125 MG CAP.DR.SPR 1250 MG PO ×2 (14:12→22:49)
[2023-01-28] MEDS: cloNIDine HCL 0.1 MG TABLET PO ×2 (14:12→23:00)
--- NOTE | 2023-01-28 16:20 | HO.PSYCHPN ---
Subjective Subjective Date of Service: 01/28/23 Reason For Visit: Mood Dysregulation Interim History: Met with patient; discussed with team Patient reports that her depression is not as significant as it was over the past few weeks; she finds it a little more possible to be hopeful. Patient asks for discharge saying she wants to go home but in discussion she agrees that she is currently not ready that the 13/05 availability of supportive staff is a significant part of patient remained stable. Discussed constipation and patient finally agrees to try Fleet enema. Discussed clonazepam and patient feels that it remains helpful, keeping her more calm. She wonders if this medication addition could be enough to allow her to go home to which sign writer hand agrees to consider. Mental Status Exam Mental Status Exam Narrative: Pt is alert and oriented; behavior is cooperative, calm; dressed in casual attire, mood is described as okay and affect congruent, little brighter; eye contact appropriate; Speech is regular rate, volume, prosody; some psychomotor retardation present; intermittent psychomotor retardation; thought process is organized and goal directed; Thought content is on trying to feel hopeful, treatment; otherwise pertinent to relevant topics and without any delusional content, paranoid ideations or grandiosity; no SI; no HI. No AVH and there is no evidence of perceptual disturbance.. Patients insight and judgment are impaired but improved. Diagnostics Vital Signs (24Hr): Vital Signs - 24 hr 01/27/23 18:55 01/28/23 08:28 Temperature 98.5 F 97.8 F Pulse Rate 94 66 Respiratory Rate 16 Blood Pressure 108/58 L 111/53 L Pulse Oximetry 96 97 Oxygen Delivery Method Room Air Room Air BMI result Body Mass Index 38.1 Labs 12/27/22 20:00 12/27/22 19:59 Imaging Radiology Impressions: ITS Impressions Hand X-Ray 01/18/23 23:35 IMPRESSION: No acute fracture or dislocation of either hand. Hand X-Ray 01/18/23 23:35 IMPRESSION: No acute fracture or dislocation of either hand. Medications Medications Current Medications Acetaminophen (Acetaminophen 325 Mg Tablet) 650 mg PO Q6H PRN PRN Reason: Headache/Pain Mild Scale (1-3) Al Hydroxide/Mg Hydroxide (Magnesium Hydrox/Alum Hydrox 30 Ml Oral.Susp) 30 ml PO Q6H PRN PRN Reason: Heartburn/Nausea Last Admin: 12/31/22 08:29 Dose: 30 ml Alprazolam (Alprazolam 0.5 Mg Tablet) 0.5 mg PO TID PRN PRN Reason: agitation Bacitracin (Bacitracin Oint 14 Gm Tube) 1 appl TOPICAL TID [facility]; Protocol Last Admin: 01/28/23 14:23 Dose: Not Given Clonazepam (Clonazepam 0.5 Mg Tablet) 0.5 mg PO BID@1100,1500 [facility] Clonidine HCl (Clonidine Hcl 0.1 Mg Tablet) 0.1 mg PO BID@1400,2100 [facility]; Protocol Last Admin: 01/28/23 14:12 Dose: 0.1 mg Diphenhydramine HCl (Diphenhydramine Hcl 25 Mg Capsule) 50 mg PO BEDTIME [facility] Last Admin: 01/27/23 20:18 Dose: 50 mg Divalproex Sodium (Divalproex Sodium Sprinkles 125 Mg Donald.) 1,250 mg PO BID@1400,2100 [facility] Last Admin: 01/28/23 14:12 Dose: 1,250 mg Famotidine (Famotidine 20 Mg Tablet) 20 mg PO BEDTIME [facility] Last Admin: 01/27/23 20:17 Dose: 20 mg Famotidine (Famotidine 20 Mg Tablet) 20 mg PO DAILY PRN PRN Reason: GERD Fluoxetine HCl (Fluoxetine Hcl 20 Mg Capsule) 60 mg PO DAILY [facility] Last Admin: 01/28/23 08:31 Dose: 60 mg Furosemide (Furosemide 20 Mg Tablet) 20 mg PO BID@0900,1700 [facility]; Protocol Last Admin: 01/28/23 08:31 Dose: 20 mg Lactulose (Lactulose 20 Gm/30 Ml Solution) 20 gm PO DAILY [facility] Last Admin: 01/28/23 08:31 Dose: Not Given Loratadine (Loratadine 10 Mg Tablet) 10 mg PO DAILY PRN PRN Reason: congestion Melatonin (Melatonin 3 Mg Tablet) 3 mg PO BEDTIME PRN PRN Reason: insomnia Last Admin: 01/26/23 20:42 Dose: 3 mg Multivitamins/Vitamin C (Multivitamin Tablet) 1 tab PO BEDTIME [facility] Last Admin: 01/27/23 20:17 Dose: 1 tab Naproxen (Naproxen 500 Mg Tablet) 500 mg PO Q12H PRN PRN Reason: mild pain Last Admin: 01/22/23 13:41 Dose: 500 mg Olanzapine (Olanzapine 10 Mg Tablet) 20 mg PO BEDTIME [facility] Last Admin: 01/27/23 20:18 Dose: 20 mg Senna/Docusate Sodium (Sennosides/Docusate Sodium Tablet) 2 tab PO BID [facility] Last Admin: 01/28/23 08:31 Dose: 2 tab Sodium Biphosphate/Sodium Phosphate (Sodium Phosphate,Bond-Dibasic 133 Ml Enema) 133 ml WI ONCE [facility] Trazodone HCl (Trazodone Hcl 50 Mg Tablet) 50 mg PO BEDTIME PRN PRN Reason: insomnia Last Admin: 01/26/23 20:42 Dose: 50 mg Trazodone HCl (Trazodone Hcl 100 Mg Tablet) 100 mg PO BEDTIME [facility] Last Admin: 01/27/23 20:17 Dose: 100 mg Ziprasidone (Ziprasidone 20 Mg Capsule) 20 mg PO BID PRN PRN Reason: Agitation Last Admin: 01/21/23 16:10 Dose: 20 mg Allergies Allergies Allergy/AdvReac Type Severity Reaction Status Date / Time chlorpromazine Allergy Anaphylaxis Verified 12/27/22 16:37 [From Thorazine] nut - unspecified Allergy Anxiety Verified 12/27/22 16:37 haloperidol [From Haldol] AdvReac Agitated Verified 12/27/22 16:37 lithium AdvReac Hives Verified 12/27/22 16:37 Assessment & Plan Assessment & Plan (1) Autism: Status: Suspected Code(s): F84.0 - Autistic disorder (2) PTSD (post-traumatic stress disorder): Status: Suspected Code(s): F43.10 - Post-traumatic stress disorder, unspecified (3) Intermittent explosive disorder: Status: Acute Code(s): F63.81 - Intermittent explosive disorder (4) CHARLES positive: Status: Acute Code(s): R76.8 - Other specified abnormal immunological findings in serum (5) Chronic restrictive lung disease: Status: Acute Code(s): J98.4 - Other disorders of lung (6) Peripheral edema: Status: Acute Code(s): R60.9 - Edema, unspecified (7) Amenorrhea: Status: Acute Code(s): N91.2 - Amenorrhea, unspecified Plan HPI: Patient is a bright, kind 22-year-old female, well known to this service, with history of Autism, PTSD recently discharged from on 12/25/2022 (and recently dc'd from [facility] after 5 years) who re-presents 2 days later for resurgence of suicidal ideation, dissociative episode and having run out during therapy session, into the street trying to hit by traffic and then eloping again from crisis again trying to get hit by oncoming cars. This has happened after ever discharge since coming to [facility]. Patient reports that day she left she had the intrusive thought that I am gonna screw this up again which just built and built until it overwhelmed her. Patient says she tried very hard to resist self-harm but the constant intrusive thought was unrelenting. She reports that on the way into the therapist building she got triggered as setting and some other people around reminded her of [facility]; already being on edge, this launched her into a full-blown panic attack; she dissociated and ran into the street wanting to . Patient says she just cannot seem to control. She also worries that she is unsafe living at her grandmother's, whom she loves dearly, because her grandmother is not able to sense when patient is starting to unravel and cannot preemptively help ground her and prevent dysregulated/dissociate of episode; patient says that sometimes she is able to alert her grandmother that she is headed this direction but many time she is not. Patient says she needs to live in a place with staff who were trained who can help divert her from such episodes. Passive SI remains but none active. Patient does not want to and wants to continue with treatment therapy. It is unclear if patient meets full criteria for OCD diagnosis however she has OCD like symptoms and will thus increase Prozac which has thus far been well tolerated. Hospital course: 12/30 stabilizing; continue current treatment plan 12/31 patient continues to stabilize; no change in medications at this time however will likely seek to reduce possibly Depakote her Zyprexa level; may increase Prozac for PTSD/OCD like symptoms 01/02 tough night, needing geodon prns; asked to change depakote to sprinkles and maybe lower dose since tired in daytime and pt may be stable at lower dose 01/03 will add short trial of Lasix 20mg BID for continued lower limb edema (Jamal stockings tried and ripped) 01/06/23- Continue current plan and regime 01/09 patient is significantly more depressed, hopeless and wishing she were . Situational stressors are significantly contributory including limited options for disposition and stressors on the unit; however patient is also reflecting on her life, her chronic symptoms and long history of living in institutions, creating a hopelessness that her things will get better. It is possible that changing Depakote formulation to DR could be contributory, however theoretically it is the same total daily dose. -patient has been in an institution more time the not since 6 years old and has spent the last 5 years in a [facility]; it was likely an unreasonable expectation that she would be able to immediately discharge and be successful in community. Rather acclimation will be a gradual process. At this time will increase Prozac to 60 mg to see if this can help. Currently patient is depressed and suicidal and in imminent risk of harm to self if discharged. 01/07 for patient a little bit improved, depression a little lower possibly due to increased Prozac 01/14 patient remains depressed but less so and she denies SI bilateral lower limb edema has decreased since getting her menses. Discussed disposition plans with social media job titles and reviewed possible options and concerns from both DDS and DM; currently rec from DDS is for patient to undergo evaluation by Dr. Caputo; team agrees it will help to organize a joint meeting with both DDS in DM to clarify and discussed situation and options. 01/15 bilateral hand tremor; patient reports it is chronic and comes and goes but a little worse today 3.31 depressed; agrees to start lactulose -Yard Assistant called Lou Mitchell, supervising case checker at [facility] and discussed tx; Lou explained potentially collaborative involvement with [facility] and that patient was accepted to [facility] and approved for virtual assessment. / to / multiple restraints over weekend 4/ pt dysregulated over weekend; continues to seem more likely situational rather than due to past med changes; will consult w/ collegue for med suggestions. Currently, pt continues to need structured environment 01/22 depression remains maybe we worsening some; continues to seem mostly situational as her situation is causing a sense of hopelessness, patient worried she will never improve enough to be off a unit. Will add clonazepam scheduled low-dose to see if it can help with afternoon/evening dysregulated behaviors. Dr. Elaine consulted who agrees to meet with patient; sign writer hand looks forward to Dr. Elaine as observations/recommendations. 01/24 continue current tx plan; reached out to ASD specialist regarding [facility] assessment; waiting for return call 01/28 Patient reports that her depression is not as significant as it was over the past few weeks; she finds it a little more possible to be hopeful. Patient asks for discharge saying she wants to go home but in discussion she agrees that she is currently not ready that the 13/05 availability of supportive staff is a significant part of patient remained stable. Discussed clonazepam and patient feels that it remains helpful, keeping her more calm. She wonders if this medication addition could be enough to allow her to go home to which sign writer hand agrees to consider. PLAN: 1. ASD/PTSD/intermittent explosive disorder: ADDED clonazepam 0.5 b.i.d. at 11:00 and 1500 since most dysregulated behaviors seem to happen in the afternoon/evening Continue to Depakote sprinkles DR 1200mg bId at 1400 and 2100 since dysregulated behaviors seem to mostly happen 2nd shift (roughly equiv to Depakote ER 2500 mg q.h.s ...) Continue Zyprexa 20 mg q.h.s. (may very well tolerate lower dose as overseen by outpatient provider) Increased Prozac to 60mg (increased during this admission) Continue Xanax 0.5 mg t.i.d. p.r.n. for agitation; may give alone or with Geodon Continue Geodon 20 mg b.i.d. p.r.n. for agitation (*pt may get IM Geodon if requested for faster action) Continue Clonidine 0.1 mg t.i.d. Continue Trazodone 100 mg q.h.s. DC'd zyprexa 5mg in afternoon DC'd perphenazine (patient has no history of psychotic illness and very likely does not need this medication) Chronic conditions: 2. CHARLES positive appointment made with Rheumatology February 20 -daytime fatigue; b/l peripheral edema; mild dyspnea on exertion Discussed with Dr. Hamilton who recommends and following labs ordered: -Urine protein creatinine ratio -Rheumatoid factor -CCP antibody 3. Bilateral peripheral edema (lower/upper extrem):? Medication side effect (Zyprexa/Depakote)?? vs organic origin *continue Lasix 20mg BID on 01/03 for b/l lower limb edema which has improved; reviewed with hospitalist VICTOR MANUEL who agrees and recommends continued Lasix 20 mg b.i.d. or 40 mg daily whichever patient prefers -maybe some very mild reduction with decreased doses of Zyprexa/Depakote -r/u autoimune 4. Complaint of chronic struggles with inspiration: lungs CTA; CXR unremarkable Pulmonary function test: results reviewed, discussed with Dr. Melchor -elevated CHARLES and abnromal PFTs with a mild restriction with a mild diffusion impairment. -could be explained by her elevated BMI. -at this time dr. Melchor reports given lab work, at this time it does not look like she has lupus nor sjogrens nor scleroderma. Her cxr was good. needs a sleep study as an out pt (daytime drowsiness bringing up the possibility of obstructive sleep apnea) does not need an inpt ct scan but should f/up with outpt pulmonary and rheumatology. -in further discussion, Dr. Melchor agrees that CHARLES needs further evaluation, 5. Amenorrhea: Patient did get her menses on 01/11 Patient did have menses a few years ago while on control; has not had it since control discontinued about 2 years ago Labs: mostly WNL; will f/u with PCP/director script PSYCHIATRIC IMPRESSION/DIAGNOSIS:. Impression: Patient is a fun, intelligent, cooperative and friendly person. When she gets triggered by something she can decompensate severely, dissociate and become physically aggressive.? Patient is now diagnosed with ASD, PTSD, and intermittent explosive disorder.? From [facility], she carried the diagnosis of Schizoaffective disorder and mention of borderline personality disorder.? Both of these have been ruled out.? Patient has no present psychotic symptoms, denies any history of AVH or delusional thinking, and has no reported history anywhere that can be found of any psychotic symptoms (history includes sign writer hand having gone through numerous pages of notes from [facility] and other institutions).? She is linear, logical, articulate, insightful and organized in her thinking; she is organized in her behaviors.? Patient can have intrusive thoughts but only when triggered and this does not seem to be OCD.? She can have some rigid thinking in line with ASD.? Many of her dysregulated moments come from her PTSD being exacerbated.? Patient has well tolerated decrease of Zyprexa, decrease of Depakote and discontinuation of perphenazine. Primary dx: ASD. Patient's father and grandmother maintain that she met her milestones in childhood. 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 During childhood she attended [facility] in [place], treatment center typically for people with autism; in [place] when at [facility], she carried a dx of ASD.? As observed on the unit, Patient frequently rocks back and forth, when standing or sitting, while talking to others or calming herself down.? Patient does not have a sense of a person's personal space and will get much to close to a person when talking; she is redirectable and apologizes but she is unaware she is doing it and does not get verbal cues when conversation participant is backing away or trying to end a conversation; though redirectable, she will again get too close, again unaware.? In the milieu with peers, While she will sometimes spend time in the vicinity of others, she is mostly alongside people and not directly interacting with them.? That said, she will directly interact with staff. Intermittent Flapping arms; rocking Patient does make eye contact, however she stares the entire time she is engaged. ? She can have a logical conversation Patient has a blunted affect and though she can smile and laugh, she is otherwise expressionless with blunted affect. Patient has in flexibility regarding food when it is not as expected patient can get severely dysregulated Patient has some hypo-reactivity to loud noises and crowds of people. Conversely, She does get jokes, even subtle ones. Symptoms have clearly made life functioning extremely difficult.? It is unclear if patient has had neuropsych testing. She did spend time at [facility]. Secondary dx: PTSD: Patient has a history of trauma from both childhood experiences, as well as trauma that occurred while on inpatient unit at [facility] and [place].? She has also been institutionalized since a young age, away from her mother and father, feeling abandoned. Possibly (likely?) reactive attachment disorder.? She has several regressed behaviors and some child-like interests. Regarding Dissociative Disorder:? Patient has episodes of depersonalization and derealization which the typically arise when triggered and during which time she will feel detached from herself, from her body and feel as if things are unreal and dream like, with out a sense of time; after they conclude and she is again in the present, she can be upset about some behaviors she engaged in during the dissociate period once made aware. Not BPD: Regarding past references to borderline personality disorder, Yard Assistant and team agree there have been no axis II traits expressed throughout her time in the hospital; none could be cleaned from records No psychotic illness: no psychotic symptoms past or present Patient educated on: diagnosis, medication risk/benefits, therapeutic strategies and medical condition Informed Consent: understands Reason for contiued inpatient stay Substantial Risk for: inability to function Time Spent With Patient Time: Total time managing care of this patient today ____ minutes.
[2023-01-28 16:23] VITALS: BP 119/73; PULSE 80; TEMP 35.9; O2SAT 97
[2023-01-28] MEDS: Sodium Phosphate,Mono-Dibasic 133 ML ENEMA PR (20:46)
[2023-01-28] MEDS: ALPRAZolam 0.5 MG TABLET PO (21:38)
[2023-01-28] MEDS: Acetaminophen 325 MG TABLET 650 MG PO (22:23)
[2023-01-28] MEDS: Bacitracin Oint 14 GM TUBE 1 APPL TOPICAL (22:49)
[2023-01-28] MEDS: OLANZapine 10 MG TABLET 20 MG PO (22:55)
[2023-01-28] MEDS: Multivitamin TABLET 1 TAB PO (22:57)
[2023-01-28] MEDS: traZODone HCL 100 MG TABLET PO (22:57)
[2023-01-28] MEDS: Famotidine 20 MG TABLET PO (22:58)
[2023-01-28] MEDS: diphenhydrAMINE HCL 25 MG CAPSULE 50 MG PO (22:59)
[2023-01-29 06:00] VITALS: BP 120/78; PULSE 76; RESP 18; TEMP 36.6; O2SAT 97
[2023-01-29] MEDS: Sennosides/Docusate Sodium TABLET 2 TAB PO (11:42)
[2023-01-29] MEDS: Lactulose 20 GM/30 ML SOLUTION PO (11:42)
[2023-01-29] MEDS: Loratadine 10 MG TABLET PO (11:42)
[2023-01-29] MEDS: Furosemide 20 MG TABLET PO ×2 (11:42→17:26)
[2023-01-29] MEDS: FLUoxetine HCl 20 MG CAPSULE 60 MG PO (11:43)
[2023-01-29] MEDS: clonazePAM 0.5 MG TABLET PO ×2 (11:46→14:45)
[2023-01-29] MEDS: Bacitracin Oint 14 GM TUBE 1 APPL TOPICAL ×2 (11:50→15:06)
[2023-01-29] MEDS: cloNIDine HCL 0.1 MG TABLET PO (14:42)
[2023-01-29] MEDS: Divalproex Sodium Sprinkles 125 MG CAP.DR.SPR 1250 MG PO (14:45)
--- NOTE | 2023-01-29 16:57 | P.PNPSI_ITS ---
Subjective Subjective Date of Service: 01/29/23 Reason For Visit: Mood Dysregulation Interim History: Met with patient; discussed with team Patient reports constipation resolved; discussed disposition and assessment by [facility]. Patient wanted to talk about medications as well and if anything could be reduced to eliminate daytime sedation; functional tester typewriters agreed to review medications but also would like Dr. Elaine to weigh in. Mental Status Exam Mental Status Exam Narrative: Pt is alert and oriented; behavior is cooperative, calm; dressed in casual attire, mood is described as okay and affect congruent, little brighter; eye contact appropriate; Speech is regular rate, volume, prosody; some psychomotor retardation present; intermittent psychomotor retardation; thought process is organized and goal directed; Thought content is on trying to feel hopeful, treatment; otherwise pertinent to relevant topics and without any delusional content, paranoid ideations or grandiosity; no SI; no HI. No AVH and there is no evidence of perceptual disturbance.. Patients insight and judgment are impaired but improved. Diagnostics Vital Signs (24Hr): Vital Signs - 24 hr 01/29/23 06:00 Temperature 98 F Pulse Rate 76 Respiratory Rate 18 Blood Pressure 120/78 Pulse Oximetry 97 Oxygen Delivery Method Room Air BMI result Body Mass Index 38.1 Labs 12/27/22 20:00 12/27/22 19:59 Imaging Radiology Impressions: ITS Impressions Hand X-Ray 01/18/23 23:35 IMPRESSION: No acute fracture or dislocation of either hand. Hand X-Ray 01/18/23 23:35 IMPRESSION: No acute fracture or dislocation of either hand. Medications Medications Current Medications Acetaminophen (Acetaminophen 325 Mg Tablet) 650 mg PO Q6H PRN PRN Reason: Headache/Pain Mild Scale (1-3) Last Admin: 01/28/23 22:23 Dose: 650 mg Al Hydroxide/Mg Hydroxide (Magnesium Hydrox/Alum Hydrox 30 Ml Oral.Susp) 30 ml PO Q6H PRN PRN Reason: Heartburn/Nausea Last Admin: 12/31/22 08:29 Dose: 30 ml Alprazolam (Alprazolam 0.5 Mg Tablet) 0.5 mg PO TID PRN PRN Reason: agitation Last Admin: 01/28/23 21:38 Dose: 0.5 mg Bacitracin (Bacitracin Oint 14 Gm Tube) 1 appl TOPICAL TID OSCAR; Protocol Last Admin: 01/29/23 15:06 Dose: 1 appl Clonazepam (Clonazepam 0.5 Mg Tablet) 0.5 mg PO BID@1100,1500 [facility] Last Admin: 01/29/23 14:45 Dose: 0.5 mg Clonidine HCl (Clonidine Hcl 0.1 Mg Tablet) 0.1 mg PO BID@1400,2100 [facility]; Protocol Last Admin: 01/29/23 14:42 Dose: 0.1 mg Diphenhydramine HCl (Diphenhydramine Hcl 25 Mg Capsule) 50 mg PO BEDTIME [facility] Last Admin: 01/28/23 22:59 Dose: 50 mg Divalproex Sodium (Divalproex Sodium Sprinkles 125 Mg Donald.) 1,250 mg PO BID@1400,2100 [facility] Last Admin: 01/29/23 14:45 Dose: 1,250 mg Famotidine (Famotidine 20 Mg Tablet) 20 mg PO BEDTIME [facility] Last Admin: 01/28/23 22:58 Dose: 20 mg Famotidine (Famotidine 20 Mg Tablet) 20 mg PO DAILY PRN PRN Reason: GERD Fluoxetine HCl (Fluoxetine Hcl 20 Mg Capsule) 60 mg PO DAILY [facility] Last Admin: 01/29/23 11:43 Dose: 60 mg Furosemide (Furosemide 20 Mg Tablet) 20 mg PO BID@0900,1700 [facility]; Protocol Last Admin: 01/29/23 11:42 Dose: 20 mg Lactulose (Lactulose 20 Gm/30 Ml Solution) 20 gm PO DAILY [facility] Last Admin: 01/29/23 11:42 Dose: 20 gm Loratadine (Loratadine 10 Mg Tablet) 10 mg PO DAILY PRN PRN Reason: congestion Last Admin: 01/29/23 11:42 Dose: 10 mg Melatonin (Melatonin 3 Mg Tablet) 3 mg PO BEDTIME PRN PRN Reason: insomnia Last Admin: 01/26/23 20:42 Dose: 3 mg Multivitamins/Vitamin C (Multivitamin Tablet) 1 tab PO BEDTIME [facility] Last Admin: 01/28/23 22:57 Dose: 1 tab Naproxen (Naproxen 500 Mg Tablet) 500 mg PO Q12H PRN PRN Reason: mild pain Last Admin: 01/22/23 13:41 Dose: 500 mg Olanzapine (Olanzapine 10 Mg Tablet) 20 mg PO BEDTIME [facility] Last Admin: 01/28/23 22:55 Dose: 20 mg Senna/Docusate Sodium (Sennosides/Docusate Sodium Tablet) 2 tab PO BID [facility] Last Admin: 01/29/23 11:42 Dose: 2 tab Sodium Biphosphate/Sodium Phosphate (Sodium Phosphate,Collin-Dibasic 133 Ml Enema) 133 ml MO ONCE OSCAR Last Admin: 01/28/23 20:46 Dose: 133 ml Trazodone HCl (Trazodone Hcl 50 Mg Tablet) 50 mg PO BEDTIME PRN PRN Reason: insomnia Last Admin: 01/26/23 20:42 Dose: 50 mg Trazodone HCl (Trazodone Hcl 100 Mg Tablet) 100 mg PO BEDTIME OSC[facility] Last Admin: 01/28/23 22:57 Dose: 100 mg Ziprasidone (Ziprasidone 20 Mg Capsule) 20 mg PO BID PRN PRN Reason: Agitation Last Admin: 01/21/23 16:10 Dose: 20 mg Allergies Allergies Allergy/AdvReac Type Severity Reaction Status Date / Time chlorpromazine Allergy Anaphylaxis Verified 12/27/22 16:37 [From Thorazine] nut - unspecified Allergy Anxiety Verified 12/27/22 16:37 haloperidol [From Haldol] AdvReac Agitated Verified 12/27/22 16:37 lithium AdvReac Hives Verified 12/27/22 16:37 Assessment & Plan Assessment & Plan (1) Autism: Status: Suspected Code(s): F84.0 - Autistic disorder (2) PTSD (post-traumatic stress disorder): Status: Suspected Code(s): F43.10 - Post-traumatic stress disorder, unspecified (3) Intermittent explosive disorder: Status: Acute Code(s): F63.81 - Intermittent explosive disorder (4) CHARLES positive: Status: Acute Code(s): R76.8 - Other specified abnormal immunological findings in serum (5) Chronic restrictive lung disease: Status: Acute Code(s): J98.4 - Other disorders of lung (6) Peripheral edema: Status: Acute Code(s): R60.9 - Edema, unspecified (7) Amenorrhea: Status: Acute Code(s): N91.2 - Amenorrhea, unspecified Plan HPI: Patient is a bright, kind 22-year-old female, well known to this service, with history of Autism, PTSD recently discharged from on 12/25/2022 (and recently dc'd from [facility] after 5 years) who re-presents 2 days later for resurgence of suicidal ideation, dissociative episode and having run out during therapy session, into the street trying to hit by traffic and then eloping again from crisis again trying to get hit by oncoming cars. This has happened after ever discharge since coming to [facility]. Patient reports that day she left she had the intrusive thought that I am gonna screw this up again which just built and built until it overwhelmed her. Patient says she tried very hard to resist self-harm but the constant intrusive thought was unrelenting. She reports that on the way into the therapist building she got triggered as setting and some other people around reminded her of [facility]; already being on edge, this launched her into a full-blown panic attack; she dissociated and ran into the street wanting to . Patient says she just cannot seem to control. She also worries that she is unsafe living at her grandmother's, whom she loves dearly, because her grandmother is not able to sense when patient is starting to unravel and cannot preemptively help ground her and prevent dysregulated/dissociate of episode; patient says that sometimes she is able to alert her grandmother that she is headed this direction but many time she is not. Patient says she needs to live in a place with staff who were trained who can help divert her from such episodes. Passive SI remains but none active. Patient does not want to and wants to continue with treatment therapy. It is unclear if patient meets full criteria for OCD diagnosis however she has OCD like symptoms and will thus increase Prozac which has thus far been well tolerated. Hospital course: 12/30 stabilizing; continue current treatment plan 12/31 patient continues to stabilize; no change in medications at this time h owever will likely seek to reduce possibly Depakote her Zyprexa level; may increase Prozac for PTSD/OCD like symptoms 01/02 tough night, needing geodon prns; asked to change depakote to sprinkles and maybe lower dose since tired in daytime and pt may be stable at lower dose 01/03 will add short trial of Lasix 20mg BID for continued lower limb edema (Jamal stockings tried and ripped) 01/06/23- Continue current plan and regime 01/09 patient is significantly more depressed, hopeless and wishing she were . Situational stressors are significantly contributory including limited options for disposition and stressors on the unit; however patient is also reflecting on her life, her chronic symptoms and long history of living in institutions, creating a hopelessness that her things will get better. It is possible that changing Depakote formulation to DR could be contributory, however theoretically it is the same total daily dose. -patient has been in an institution more time the not since 6 years old and has spent the last 5 years in a [facility]; it was likely an unreasonable expectation that she would be able to immediately discharge and be successful in community. Rather acclimation will be a gradual process. At this time will increase Prozac to 60 mg to see if this can help. Currently patient is depressed and suicidal and in imminent risk of harm to self if d ischarged. 01/07 for patient a little bit improved, depression a little lower possibly due to increased Prozac 01/14 patient remains depressed but less so and she denies SI bilateral lower limb edema has decreased since getting her menses. Discussed disposition plans with social media executive and reviewed possible options and concerns from both [facility] and [facility]; currently rec from [facility] is for patient to undergo evaluation by Dr. Caputo; team agrees it will help to organize a joint meeting with both [facility] in DM to clarify and discussed situation and options. 01/15 bilateral hand tremor; patient reports it is chronic and comes and goes but a little worse today 3.31 depressed; agrees to start lactulose -Nurse Orthopaedic called Lou Mitchlel, supervising case packer and sealer at [facility] and discussed tx; Lou explained potentially collaborative involvement with [facility] and that patient was accepted to [facility] and approved for virtual assessment. 01/19 to 01/20 multiple restraints over weekend 01/21 pt dysregulated over weekend; continues to seem more likely situational rather than due to past med changes; will consult w/ collegue for med suggestions. Currently, pt continues to need structured environment 01/22 depression remains maybe we worsening some; continues to seem mostly situational as her situation is causing a sense of hopelessness, patient worried she will never improve enough to be off a unit. Will add clonazepam scheduled low-dose to see if it can help with afternoon/evening dysregulated behaviors. Dr. Elaine consulted who agrees to meet with patient; functional tester typewriters looks forward to Dr. Elaine as observations/recommendations. 01/24 continue current tx plan; reached out to ASD specialist regarding [facility] assessment; waiting for return call 01/28 Patient reports that her depression is not as significant as it was over the past few weeks; she finds it a little more possible to be hopeful. Patient asks for discharge saying she wants to go home but in discussion she agrees that she is currently not ready that the 13/05 availability of supportive staff is a significant part of patient remained stable. Discussed clonazepam and patient feels that it remains helpful, keeping her more calm. She wonders if this medication addition could be enough to allow her to go home to which functional tester typewriters agrees to consider. 01/29 continue current treatment plan; discussed case with Dr. Elaine and social media executive regarding disposition and progress made with [facility]; discussed in detail progress made with [facility] who agrees to come and evaluate patient on the unit and and assess if patient is appropriate for community [facility]. This was discussed with patient who agrees to evaluation which will take place on the unit. PLAN: 1. ASD/PTSD/intermittent explosive disorder: ADDED clonazepam 0.5 b.i.d. at 11:00 and 1500 since most dysregulated behaviors seem to happen in the afternoon/evening Continue to Depakote sprinkles DR 1200mg bId at 1400 and 2100 since dysregulated behaviors seem to mostly happen 2nd shift (roughly equiv to Depakote ER 2500 mg q.h.s ...) Continue Zyprexa 20 mg q.h.s. (may very well tolerate lower dose as overseen by outpatient provider) Increased Prozac to 60mg (increased during this admission) Continue Xanax 0.5 mg t.i.d. p.r.n. for agitation; may give alone or with Geodon Continue Geodon 20 mg b.i.d. p.r.n. for agitation (*pt may get IM Geodon if requested for faster action) Continue Clonidine 0.1 mg t.i.d. Continue Trazodone 100 mg q.h.s. DC'd zyprexa 5mg in afternoon DC'd perphenazine (patient has no history of psychotic illness and very likely does not need this medication) Chronic conditions: 2. CHARLES positive appointment made with Rheumatology February 20 -daytime fatigue; b/l peripheral edema; mild dyspnea on exertion Discussed with Dr. Hamilton who recommends and following labs ordered: -Urine protein creatinine ratio -Rheumatoid factor -CCP antibody 3. Bilateral peripheral edema (lower/upper extrem):? Medication side effect (Zyprexa/Depakote)?? vs organic origin some reduction w/ lowering of medications Zyprexa and depakote r/u autoimune 4. Complaint of chronic struggles with inspiration: lungs CTA; CXR unremarkable Pulmonary function test: results reviewed, discussed with Dr. Melchor -elevated CHARLES and abnromal PFTs with a mild restriction with a mild diffusion impairment. -could be explained by her elevated BMI. -at this time dr. Melchor reports given lab work, at this time it does not look like she has lupus nor sjogrens nor scleroderma. Her cxr was good. needs a sleep study as an out pt (daytime drowsiness bringing up the possibility of obstructive sleep apnea) does not need an inpt ct scan but should f/up with outpt pulmonary and rheumatology. -in further discussion, Dr. Melchor agrees that CHARLES needs further evaluation, 5.hx of Amenorrhea: Patient did get her menses on 01/11 Patient did have menses a few years ago while on control; has not had it since control discontinued about 2 years ago Labs: mostly WNL; will f/u with PCP/catalogue librarian PSYCHIATRIC IMPRESSION/DIAGNOSIS:. Impression: Patient is a fun, intelligent, cooperative and friendly person. When she gets triggered by something she can decompensate severely, dissociate and become physically aggressive.? Patient is now diagnosed with ASD, PTSD, and intermittent explosive disorder.? From [facility], she carried the diagnosis of Schizoaffective disorder and mention of borderline personality disorder.? Both of these have been ruled out.? Patient has no present psychotic symptoms, denies any history of AVH or delusional thinking, and has no reported history anywhere that can be found of any psychotic symptoms (history includes functional tester typewriters having gone through numerous pages of notes from [facility] and other institutions).? She is linear, logical, articulate, insightful and organized in her thinking; she is organized in her behaviors.? Patient can have intrusive thoughts but only when triggered and this does not seem to be OCD.? She can have some rigid thinking in line with ASD.? Many of her dysregulated moments come from her PTSD being exacerbated.? Patient has well tolerated decrease of Zyprexa, decrease of Depakote and discontinuation of perphenazine. Primary dx: ASD. Patient's father and grandmother maintain that she met her milestones in childhood. 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 During childhood she attended [facility] [place], treatment center typically for people with autism; in [place] when at [facility], she carried a dx of ASD.? As observed on the unit, Patient frequently rocks back and forth, when standing or sitting, while talking to others or calming herself down.? Patient does not have a sense of a person's personal space and will get much to close to a person when talking; she is redirectable and apologizes but she is unaware she is doing it and does not get verbal cues when conversation participant is backing away or trying to end a conversation; though redirectable, she will again get too close, again unaware.? In the milieu with peers, While she will sometimes spend time in the vicinity of others, she is mostly alongside people and not directly interacting with them.? That said, she will directly interact with staff. Intermittent Flapping arms; rocking Patient does make eye contact, however she stares the entire time she is engaged. ? She can have a logical conversation Patient has a blunted affect and though she can smile and laugh, she is otherwise expressionless with blunted affect. Patient has in flexibility regarding food when it is not as expected patient can get severely dysregulated Patient has some hypo-reactivity to loud noises and crowds of people. Conversely, She does get jokes, even subtle ones. Symptoms have clearly made life functioning extremely difficult.? It is unclear if patient has had neuropsych testing. She did spend time at [facility]. Secondary dx: PTSD: Patient has a history of trauma from both childhood experiences, as well as trauma that occurred while on inpatient unit at [facility] and [place].? She has also been institutionalized since a young age, away from her mother and father, feeling abandoned. Possibly (likely?) reactive attachment disorder.? She has several regressed behaviors and some child-like interests. Regarding Dissociative Disorder:? Patient has episodes of depersonalization and derealization which the typically arise when triggered and during which time she will feel detached from herself, from her body and feel as if things are unreal and dream like, with out a sense of time; after they conclude and she is again in the present, she can be upset about some behaviors she engaged in during the dissociate period once made aware. Not BPD: Regarding past references to borderline personality disorder, Nurse Orthopaedic and team agree there have been no axis II traits expressed throughout her time in the hospital; none could be cleaned from records No psychotic illness: no psychotic symptoms past or present Patient educated on: diagnosis, medication risk/benefits and therapeutic strateg ies Informed Consent: understands Reason for contiued inpatient stay Substantial Risk for: inability to function Time Spent With Patient Time: Total time managing care of this patient today ____ minutes.
[2023-01-29 17:32] VITALS: BP 106/61; PULSE 75; TEMP 36.1; O2SAT 98
[2023-01-30 06:00] VITALS: BP 85/50; PULSE 66; RESP 14; TEMP 36.1; O2SAT 98
--- NOTE | 2023-01-30 08:59 | HO.PSYCHPN ---
Subjective Subjective Date of Service: 01/30/23 Reason For Visit: Mood Dysregulation Interim History: no change in presentation had meeting today with [facility]D Mental Status Exam Mental Status Exam Narrative: Pt is alert and oriented; behavior is cooperative, calm; dressed in casual attire, mood is described as okay and affect congruent, little brighter; eye contact appropriate; Speech is regular rate, volume, prosody; some psychomotor retardation present; intermittent psychomotor retardation; thought process is organized and goal directed; Thought content is on trying to feel hopeful, treatment; otherwise pertinent to relevant topics and without any delusional content, paranoid ideations or grandiosity; no SI; no HI. No AVH and there is no evidence of perceptual disturbance.. Patients insight and judgment are impaired but improved. Diagnostics Vital Signs (24Hr): Vital Signs - 24 hr 01/29/23 17:32 Temperature 96.9 F Pulse Rate 75 Blood Pressure 106/61 Pulse Oximetry 98 Oxygen Delivery Method Room Air BMI result Body Mass Index 38.1 Labs 12/27/22 20:00 12/27/22 19:59 Imaging Radiology Impressions: ITS Impressions Hand X-Ray 01/18/23 23:35 IMPRESSION: No acute fracture or dislocation of either hand. Hand X-Ray 01/18/23 23:35 IMPRESSION: No acute fracture or dislocation of either hand. Medications Medications Current Medications Acetaminophen (Acetaminophen 325 Mg Tablet) 650 mg PO Q6H PRN PRN Reason: Headache/Pain Mild Scale (1-3) Last Admin: 01/28/23 22:23 Dose: 650 mg Al Hydroxide/Mg Hydroxide (Magnesium Hydrox/Alum Hydrox 30 Ml Oral.Susp) 30 ml PO Q6H PRN PRN Reason: Heartburn/Nausea Last Admin: 12/31/22 08:29 Dose: 30 ml Alprazolam (Alprazolam 0.5 Mg Tablet) 0.5 mg PO TID PRN PRN Reason: agitation Last Admin: 01/28/23 21:38 Dose: 0.5 mg Bacitracin (Bacitracin Oint 14 Gm Tube) 1 appl TOPICAL TID [facility]; Protocol Last Admin: 01/30/23 07:53 Dose: Not Given Clonazepam (Clonazepam 0.5 Mg Tablet) 0.5 mg PO BID@1100,1500 [facility] Last Admin: 01/29/23 14:45 Dose: 0.5 mg Clonidine HCl (Clonidine Hcl 0.1 Mg Tablet) 0.1 mg PO BID@1400,2100 [facility]; Protocol Last Admin: 01/30/23 07:53 Dose: Not Given Diphenhydramine HCl (Diphenhydramine Hcl 25 Mg Capsule) 50 mg PO BEDTIME [facility] Last Admin: 01/30/23 07:53 Dose: Not Given Divalproex Sodium (Divalproex Sodium Sprinkles 125 Mg ) 1,250 mg PO BID@1400,2100 [facility] Last Admin: 01/30/23 07:53 Dose: Not Given Famotidine (Famotidine 20 Mg Tablet) 20 mg PO BEDTIME [facility] Last Admin: 01/30/23 07:53 Dose: Not Given Famotidine (Famotidine 20 Mg Tablet) 20 mg PO DAILY PRN PRN Reason: GERD Fluoxetine HCl (Fluoxetine Hcl 20 Mg Capsule) 60 mg PO DAILY [facility] Last Admin: 01/29/23 11:43 Dose: 60 mg Furosemide (Furosemide 20 Mg Tablet) 20 mg PO BID@0900,1700 [facility]; Protocol Last Admin: 01/29/23 17:26 Dose: 20 mg Lactulose (Lactulose 20 Gm/30 Ml Solution) 20 gm PO DAILY [facility] Last Admin: 01/29/23 11:42 Dose: 20 gm Loratadine (Loratadine 10 Mg Tablet) 10 mg PO DAILY PRN PRN Reason: congestion Last Admin: 01/29/23 11:42 Dose: 10 mg Melatonin (Melatonin 3 Mg Tablet) 3 mg PO BEDTIME PRN PRN Reason: insomnia Last Admin: 01/26/23 20:42 Dose: 3 mg Multivitamins/Vitamin C (Multivitamin Tablet) 1 tab PO BEDTIME [facility] Last Admin: 01/30/23 07:54 Dose: Not Given Naproxen (Naproxen 500 Mg Tablet) 500 mg PO Q12H PRN PRN Reason: mild pain Last Admin: 01/22/23 13:41 Dose: 500 mg Olanzapine (Olanzapine 10 Mg Tablet) 20 mg PO BEDTIME [facility] Last Admin: 01/30/23 07:54 Dose: Not Given Senna/Docusate Sodium (Sennosides/Docusate Sodium Tablet) 2 tab PO BID [facility] Last Admin: 01/30/23 07:54 Dose: Not Given Sodium Biphosphate/Sodium Phosphate (Sodium Phosphate,Johnson-Dibasic 133 Ml Enema) 133 ml IA ONCE [facility] Last Admin: 01/28/23 20:46 Dose: 133 ml Sodium Biphosphate/Sodium Phosphate (Sodium Phosphate,Johnson-Dibasic 133 Ml Enema) 133 ml IA DAILY PRN PRN Reason: Constipation Trazodone HCl (Trazodone Hcl 50 Mg Tablet) 50 mg PO BEDTIME PRN PRN Reason: insomnia Last Admin: 01/26/23 20:42 Dose: 50 mg Trazodone HCl (Trazodone Hcl 100 Mg Tablet) 100 mg PO BEDTIME [facility] Last Admin: 01/30/23 07:54 Dose: Not Given Ziprasidone (Ziprasidone 20 Mg Capsule) 20 mg PO BID PRN PRN Reason: Agitation Last Admin: 01/21/23 16:10 Dose: 20 mg Allergies Allergies Allergy/AdvReac Type Severity Reaction Status Date / Time chlorpromazine Allergy Anaphylaxis Verified 12/27/22 16:37 [From Thorazine] nut - unspecified Allergy Anxiety Verified 12/27/22 16:37 haloperidol [From Haldol] AdvReac Agitated Verified 12/27/22 16:37 lithium AdvReac Hives Verified 12/27/22 16:37 Assessment & Plan Assessment & Plan (1) Autism: Status: Suspected Code(s): F84.0 - Autistic disorder (2) PTSD (post-traumatic stress disorder): Status: Suspected Code(s): F43.10 - Post-traumatic stress disorder, unspecified (3) Intermittent explosive disorder: Status: Acute Code(s): F63.81 - Intermittent explosive disorder (4) CHARLES positive: Status: Acute Code(s): R76.8 - Other specified abnormal immunological findings in serum (5) Chronic restrictive lung disease: Status: Acute Code(s): J98.4 - Other disorders of lung (6) Peripheral edema: Status: Acute Code(s): R60.9 - Edema, unspecified (7) Amenorrhea: Status: Acute Code(s): N91.2 - Amenorrhea, unspecified Plan HPI: Patient is a bright, kind 22-year-old female, well known to this service, with history of Autism, PTSD recently discharged from on 12/25/2022 (and recently dc'd from [facility] after 5 years) who re-presents 2 days later for resurgence of suicidal ideation, dissociative episode and having run out during therapy session, into the street trying to hit by traffic and then eloping again from crisis again trying to get hit by oncoming cars. This has happened after ever discharge since coming to [facility]. Patient reports that day she left she had the intrusive thought that I am gonna screw this up again which just built and built until it overwhelmed her. Patient says she tried very hard to resist self-harm but the constant intrusive thought was unrelenting. She reports that on the way into the therapist building she got triggered as setting and some other people around reminded her of [facility]; already being on edge, this launched her into a full-blown panic attack; she dissociated and ran into the street wanting to . Patient says she just cannot seem to control. She also worries that she is unsafe living at her grandmother's, whom she loves dearly, because her grandmother is not able to sense when patient is starting to unravel and cannot preemptively help ground her and prevent dysregulated/dissociate of episode; patient says that sometimes she is able to alert her grandmother that she is headed this direction but many time she is not. Patient says she needs to live in a place with staff who were trained who can help divert her from such episodes. Passive SI remains but none active. Patient does not want to and wants to continue with treatment therapy. It is unclear if patient meets full criteria for OCD diagnosis however she has OCD like symptoms and will thus increase Prozac which has thus far been well tolerated. Hospital course: 12/30 stabilizing; continue current treatment plan 12/31 patient continues to stabilize; no change in medications at this time however will likely seek to reduce possibly Depakote her Zyprexa level; may increase Prozac for PTSD/OCD like symptoms 01/02 tough night, needing geodon prns; asked to change depakote to sprinkles and maybe lower dose since tired in daytime and pt may be stable at lower dose 01/03 will add short trial of Lasix 20mg BID for continued lower limb edema (Jamal stockings tried and ripped) 01/06/23- Continue current plan and regime 01/09 patient is significantly more depressed, hopeless and wishing she were . Situational stressors are significantly contributory including limited options for disposition and stressors on the unit; however patient is also reflecting on her life, her chronic symptoms and long history of living in institutions, creating a hopelessness that her things will get better. It is possible that changing Depakote formulation to DR could be contributory, however theoretically it is the same total daily dose. -patient has been in an institution more time the not since 6 years old and has spent the last 5 years in a [facility]; it was likely an unreasonable expectation that she would be able to immediately discharge and be successful in community. Rather acclimation will be a gradual process. At this time will increase Prozac to 60 mg to see if this can help. Currently patient is depressed and suicidal and in imminent risk of harm to self if discharged. 01/07 for patient a little bit improved, depression a little lower possibly due to increased Prozac 01/14 patient remains depressed but less so and she denies SI bilateral lower limb edema has decreased since getting her menses. Discussed disposition plans with social services director and reviewed possible options and concerns from both DDS and DM; currently rec from DDS is for patient to undergo evaluation by Dr. Caputo; team agrees it will help to organize a joint meeting with both DDS in DM to clarify and discussed situation and options. 01/15 bilateral hand tremor; patient reports it is chronic and comes and goes but a little worse today 3.31 depressed; agrees to start lactulose -[employer] Specialist called Lou Mitchell, supervising upper caser at [facility] and discussed tx; Lou explained potentially collaborative involvement with [facility] and that patient was accepted to [facility] and approved for virtual assessment. 01/19 to 01/20 multiple restraints over weekend / pt dysregulated over weekend; continues to seem more likely situational rather than due to past med changes; will consult w/ collegue for med suggestions. Currently, pt continues to need structured environment / depression remains maybe we worsening some; continues to seem mostly situational as her situation is causing a sense of hopelessness, patient worried she will never improve enough to be off a unit. Will add clonazepam scheduled low-dose to see if it can help with afternoon/evening dysregulated behaviors. Dr. Elaine consulted who agrees to meet with patient; handbook writer looks forward to Dr. Elaine as observations/recommendations. 01/24 continue current tx plan; reached out to ASD specialist regarding [facility] assessment; waiting for return call 01/28 Patient reports that her depression is not as significant as it was over the past few weeks; she finds it a little more possible to be hopeful. Patient asks for discharge saying she wants to go home but in discussion she agrees that she is currently not ready that the 24/7 availability of supportive staff is a significant part of patient remained stable. Discussed clonazepam and patient feels that it remains helpful, keeping her more calm. She wonders if this medication addition could be enough to allow her to go home to which handbook writer agrees to consider. 01/29 continue current treatment plan; discussed case with Dr. Elaine and social services director regarding disposition and progress made with DDS; discussed in detail progress made with [facility] who agrees to come and evaluate patient on the unit and and assess if patient is appropriate for community [facility] fpc. This was discussed with patient who agrees to evaluation which will take place on the unit. 01/30 meeting w [facility]; changed clonazepam to prn PLAN: 1. ASD/PTSD/intermittent explosive disorder: clonazepam 0.5 b.i.d. prn for mild anxiety(does not feel she needs it schedule any more Continue to Depakote sprinkles DR 1200mg bId at 1400 and 2100 since dysregulated behaviors seem to mostly happen 2nd shift (roughly equiv to Depakote ER 2500 mg q.h.s ...) Continue Zyprexa 20 mg q.h.s. (may very well tolerate lower dose as overseen by outpatient provider) Increased Prozac to 60mg (increased during this admission) Continue Xanax 0.5 mg t.i.d. p.r.n. for AGITation; may give alone or with Geodon Continue Geodon 20 mg b.i.d. p.r.n. for agitation (*pt may get IM Geodon if requested for faster action) Continue Clonidine 0.1 mg t.i.d. Continue Trazodone 100 mg q.h.s. DC'd zyprexa 5mg in afternoon DC'd perphenazine (patient has no history of psychotic illness and very likely does not need this medication) Chronic conditions: 2. CHARLES positive appointment made with Rheumatology February 20 -daytime fatigue; b/l peripheral edema; mild dyspnea on exertion Discussed with Dr. Hamilton who recommends and following labs ordered: -Urine protein creatinine ratio -Rheumatoid factor -CCP antibody 3. Bilateral peripheral edema (lower/upper extrem):? Medication side effect (Zyprexa/Depakote)?? vs organic origin some reduction w/ lowering of medications Zyprexa and depakote r/u autoimune 4. Complaint of chronic struggles with inspiration: lungs CTA; CXR unremarkable Pulmonary function test: results reviewed, discussed with Dr. Melchor -elevated CHARLES and abnromal PFTs with a mild restriction with a mild diffusion impairment. -could be explained by her elevated BMI. -at this time dr. Melchor reports given lab work, at this time it does not look like she has lupus nor sjogrens nor scleroderma. Her cxr was good. needs a sleep study as an out pt (daytime drowsiness bringing up the possibility of obstructive sleep apnea) does not need an inpt ct scan but should f/up with outpt pulmonary and rheumatology. -in further discussion, Dr. Melchor agrees that CHARLES needs further evaluation, 5.hx of Amenorrhea: Patient did get her menses on 01/11 Patient did have menses a few years ago while on control; has not had it since control discontinued about 2 years ago Labs: mostly WNL; will f/u with PCP/white washer PSYCHIATRIC IMPRESSION/DIAGNOSIS:. Impression: Patient is a fun, intelligent, cooperative and friendly person. When she gets triggered by something she can decompensate severely, dissociate and become physically aggressive.? Patient is now diagnosed with ASD, PTSD, and intermittent explosive disorder.? From [facility], she carried the diagnosis of Schizoaffective disorder and mention of borderline personality disorder.? Both of these have been ruled out.? Patient has no present psychotic symptoms, denies any history of AVH or delusional thinking, and has no reported history anywhere that can be found of any psychotic symptoms (history includes handbook writer having gone through numerous pages of notes from [facility] and other institutions).? She is linear, logical, articulate, insightful and organized in her thinking; she is organized in her behaviors.? Patient can have intrusive thoughts but only when triggered and this does not seem to be OCD.? She can have some rigid thinking in line with ASD.? Many of her dysregulated moments come from her PTSD being exacerbated.? Patient has well tolerated decrease of Zyprexa, decrease of Depakote and discontinuation of perphenazine. Primary dx: ASD. Patient's father and grandmother maintain that she met her milestones in childhood. 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 During childhood she attended [facility] in [place], treatment center typically for people with autism; in [place] when at [facility], she carried a dx of ASD.? As observed on the unit, Patient frequently rocks back and forth, when standing or sitting, while talking to others or calming herself down.? Patient does not have a sense of a person's personal space and will get much to close to a person when talking; she is redirectable and apologizes but she is unaware she is doing it and does not get verbal cues when conversation participant is backing away or trying to end a conversation; though redirectable, she will again get too close, again unaware.? In the milieu with peers, While she will sometimes spend time in the vicinity of others, she is mostly alongside people and not directly interacting with them.? That said, she will directly interact with staff. Intermittent Flapping arms; rocking Patient does make eye contact, however she stares the entire time she is engaged. ? She can have a logical conversation Patient has a blunted affect and though she can smile and laugh, she is otherwise expressionless with blunted affect. Patient has in flexibility regarding food when it is not as expected patient can get severely dysregulated Patient has some hypo-reactivity to loud noises and crowds of people. Conversely, She does get jokes, even subtle ones. Symptoms have clearly made life functioning extremely difficult.? It is unclear if patient has had neuropsych testing. She did spend time at [facility]. Secondary dx: PTSD: Patient has a history of trauma from both childhood experiences, as well as trauma that occurred while on inpatient unit at [facility] and [place].? She has also been institutionalized since a young age, away from her mother and father, feeling abandoned. Possibly (likely?) reactive attachment disorder.? She has several regressed behaviors and some child-like interests. Regarding Dissociative Disorder:? Patient has episodes of depersonalization and derealization which the typically arise when triggered and during which time she will feel detached from herself, from her body and feel as if things are unreal and dream like, with out a sense of time; after they conclude and she is again in the present, she can be upset about some behaviors she engaged in during the dissociate period once made aware. Not BPD: Regarding past references to borderline personality disorder, [employer] Support Specialist and team agree there have been no axis II traits expressed throughout her time in the hospital; none could be cleaned from records No psychotic illness: no psychotic symptoms past or present Patient educated on: medication risk/benefits Reason for contiued inpatient stay Substantial Risk for: inability to function Time Spent With Patient Time: Total time managing care of this patient today ____ minutes.
[2023-01-30] MEDS: FLUoxetine HCl 20 MG CAPSULE 60 MG PO (10:05)
[2023-01-30] MEDS: Sennosides/Docusate Sodium TABLET 2 TAB PO ×2 (10:05→21:32)
[2023-01-30] MEDS: clonazePAM 0.5 MG TABLET PO (14:25)
[2023-01-30] MEDS: Divalproex Sodium Sprinkles 125 MG CAP.DR.SPR 1250 MG PO ×2 (14:25→21:32)
[2023-01-30 16:43] VITALS: BP 116/69; PULSE 95; RESP 18; O2SAT 97
[2023-01-30] MEDS: Furosemide 20 MG TABLET PO (16:43)
[2023-01-30] MEDS: NaPROXEN 500 MG TABLET PO (17:48)
[2023-01-30] MEDS: Artificial Tears 15 ML DROPS 2 DROP EYE-BOTH (19:23)
[2023-01-30] MEDS: Famotidine 20 MG TABLET PO (21:32)
[2023-01-30] MEDS: Multivitamin TABLET 1 TAB PO (21:32)
[2023-01-30] MEDS: diphenhydrAMINE HCL 25 MG CAPSULE 50 MG PO (21:32)
[2023-01-30] MEDS: OLANZapine 10 MG TABLET 20 MG PO (21:32)
[2023-01-30] MEDS: traZODone HCL 100 MG TABLET PO (21:32)
[2023-01-30] MEDS: cloNIDine HCL 0.1 MG TABLET PO (21:32)
[2023-01-30] MEDS: Melatonin 3 MG TABLET PO (22:53)
--- NOTE | 2023-01-31 09:44 | HO.PSYCHPN ---
Subjective Subjective Date of Service: 01/31/23 Reason For Visit: Mood Dysregulation Subjective Notes: Conditional Voluntary Interim History: Pt slept most of the morning. She reported feeling tired and sleepy and initially denied any psychiatric concerns. Later in the day, pt became dysregulated and somewhat agitated but before she became aggressive towards self or others, pt did asked for geodone IM with good effect. Review of Systems Review of Systems Unremarkable Yes all other systems are reviewed and are negative and Unobtainable due to mental status Mental Status Exam Mental Status Exam Narrative: Pt is alert and oriented; behavior is cooperative, calm; dressed in casual attire, mood is described as okay and affect congruent, little brighter; eye contact appropriate; Speech is regular rate, volume, prosody; some psychomotor retardation present; intermittent psychomotor retardation; thought process is organized and goal directed; Thought content is on trying to feel hopeful, treatment; otherwise pertinent to relevant topics and without any delusional content, paranoid ideations or grandiosity; no SI; no HI. No AVH and there is no evidence of perceptual disturbance.. Patients insight and judgment are impaired but improved. Diagnostics Vital Signs (24Hr): Vital Signs - 24 hr 01/30/23 16:43 Pulse Rate 95 Respiratory Rate 18 Blood Pressure 116/69 Pulse Oximetry 97 Oxygen Delivery Method Room Air BMI result Body Mass Index 38.1 Labs 12/27/22 20:00 12/27/22 19:59 Imaging Radiology Impressions: ITS Impressions Hand X-Ray 01/18/23 23:35 IMPRESSION: No acute fracture or dislocation of either hand. Hand X-Ray 01/18/23 23:35 IMPRESSION: No acute fracture or dislocation of either hand. Medications Medications Current Medications Acetaminophen (Acetaminophen 325 Mg Tablet) 650 mg PO Q6H PRN PRN Reason: Headache/Pain Mild Scale (1-3) Last Admin: 01/28/23 22:23 Dose: 650 mg Al Hydroxide/Mg Hydroxide (Magnesium Hydrox/Alum Hydrox 30 Ml Oral.Susp) 30 ml PO Q6H PRN PRN Reason: Heartburn/Nausea Last Admin: 12/31/22 08:29 Dose: 30 ml Alprazolam (Alprazolam 0.5 Mg Tablet) 0.5 mg PO TID PRN PRN Reason: agitation Last Admin: 01/28/23 21:38 Dose: 0.5 mg Artificial Tears (Artificial Tears 15 Ml Drops) 2 drop EYE-BOTH Q4H PRN PRN Reason: Dry Eyes Last Admin: 01/30/23 19:23 Dose: 2 drop Bacitracin (Bacitracin Oint 14 Gm Tube) 1 appl TOPICAL TID [facility]; Protocol Last Admin: 01/30/23 21:34 Dose: Not Given Clonazepam (Clonazepam 0.5 Mg Tablet) 0.5 mg PO BID PRN PRN Reason: mild anxiety Clonidine HCl (Clonidine Hcl 0.1 Mg Tablet) 0.1 mg PO BID@1400,2100 [facility]; Protocol Last Admin: 01/30/23 21:32 Dose: 0.1 mg Diphenhydramine HCl (Diphenhydramine Hcl 25 Mg Capsule) 50 mg PO BEDTIME [facility] Last Admin: 01/30/23 21:32 Dose: 50 mg Divalproex Sodium (Divalproex Sodium Sprinkles 125 Mg ) 1,250 mg PO BID@1400,2100 [facility] Last Admin: 01/30/23 21:32 Dose: 1,250 mg Famotidine (Famotidine 20 Mg Tablet) 20 mg PO BEDTIME [facility] Last Admin: 01/30/23 21:32 Dose: 20 mg Famotidine (Famotidine 20 Mg Tablet) 20 mg PO DAILY PRN PRN Reason: GERD Fluoxetine HCl (Fluoxetine Hcl 20 Mg Capsule) 60 mg PO DAILY [facility] Last Admin: 01/30/23 10:05 Dose: 60 mg Furosemide (Furosemide 20 Mg Tablet) 20 mg PO BID@0900,1700 [facility]; Protocol Last Admin: 01/30/23 16:43 Dose: 20 mg Lactulose (Lactulose 20 Gm/30 Ml Solution) 20 gm PO DAILY [facility] Last Admin: 01/30/23 10:05 Dose: Not Given Loratadine (Loratadine 10 Mg Tablet) 10 mg PO DAILY PRN PRN Reason: congestion Last Admin: 01/29/23 11:42 Dose: 10 mg Melatonin (Melatonin 3 Mg Tablet) 3 mg PO BEDTIME PRN PRN Reason: insomnia Last Admin: 01/30/23 22:53 Dose: 3 mg Multivitamins/Vitamin C (Multivitamin Tablet) 1 tab PO BEDTIME [facility] Last Admin: 01/30/23 21:32 Dose: 1 tab Naproxen (Naproxen 500 Mg Tablet) 500 mg PO Q12H PRN PRN Reason: mild pain Last Admin: 01/30/23 17:48 Dose: 500 mg Olanzapine (Olanzapine 10 Mg Tablet) 20 mg PO BEDTIME [facility] Last Admin: 01/30/23 21:32 Dose: 20 mg Senna/Docusate Sodium (Sennosides/Docusate Sodium Tablet) 2 tab PO BID [facility] Last Admin: 01/30/23 21:32 Dose: 2 tab Sodium Biphosphate/Sodium Phosphate (Sodium Phosphate,[place]-Dibasic 133 Ml Enema) 133 ml MO ONCE [facility] Last Admin: 01/28/23 20:46 Dose: 133 ml Sodium Biphosphate/Sodium Phosphate (Sodium Phosphate,[place]-Dibasic 133 Ml Enema) 133 ml MO DAILY PRN PRN Reason: Constipation Trazodone HCl (Trazodone Hcl 50 Mg Tablet) 50 mg PO BEDTIME PRN PRN Reason: insomnia Last Admin: 01/26/23 20:42 Dose: 50 mg Trazodone HCl (Trazodone Hcl 100 Mg Tablet) 100 mg PO BEDTIME [facility] Last Admin: 01/30/23 21:32 Dose: 100 mg Ziprasidone (Ziprasidone 20 Mg Capsule) 20 mg PO BID PRN PRN Reason: Agitation Last Admin: 01/21/23 16:10 Dose: 20 mg Allergies Allergies Allergy/AdvReac Type Severity Reaction Status Date / Time chlorpromazine Allergy Anaphylaxis Verified 12/27/22 16:37 [From Thorazine] nut - unspecified Allergy Anxiety Verified 12/27/22 16:37 haloperidol [From Haldol] AdvReac Agitated Verified 12/27/22 16:37 lithium AdvReac Hives Verified 12/27/22 16:37 Assessment & Plan Assessment & Plan (1) Autism: Status: Suspected Code(s): F84.0 - Autistic disorder (2) PTSD (post-traumatic stress disorder): Status: Suspected Code(s): F43.10 - Post-traumatic stress disorder, unspecified (3) Intermittent explosive disorder: Status: Acute Code(s): F63.81 - Intermittent explosive disorder (4) CHARLES positive: Status: Acute Code(s): R76.8 - Other specified abnormal immunological findings in serum (5) Chronic restrictive lung disease: Status: Acute Code(s): J98.4 - Other disorders of lung (6) Peripheral edema: Status: Acute Code(s): R60.9 - Edema, unspecified (7) Amenorrhea: Status: Acute Code(s): N91.2 - Amenorrhea, unspecified Plan HPI: Patient is a bright, kind 22-year-old female, well known to this service, with history of Autism, PTSD recently discharged from on 12/25/2022 (and recently dc'd from [facility] after 5 years) who re-presents 2 days later for resurgence of suicidal ideation, dissociative episode and having run out during therapy session, into the street trying to hit by traffic and then eloping again from crisis again trying to get hit by oncoming cars. This has happened after ever discharge since coming to [facility]. Patient reports that day she left she had the intrusive thought that I am gonna screw this up again which just built and built until it overwhelmed her. Patient says she tried very hard to resist self-harm but the constant intrusive thought was unrelenting. She reports that on the way into the therapist building she got triggered as setting and some other people around reminded her of [facility]; already being on edge, this launched her into a full-blown panic attack; she dissociated and ran into the street wanting to . Patient says she just cannot seem to control. She also worries that she is unsafe living at her grandmother's, whom she loves dearly, because her grandmother is not able to sense when patient is starting to unravel and cannot preemptively help ground her and prevent dysregulated/dissociate of episode; patient says that sometimes she is able to alert her grandmother that she is headed this direction but many time she is not. Patient says she needs to live in a place with staff who were trained who can help divert her from such episodes. Passive SI remains but none active. Patient does not want to and wants to continue with treatment therapy. It is unclear if patient meets full criteria for OCD diagnosis however she has OCD like symptoms and will thus increase Prozac which has thus far been well tolerated. Hospital course: 12/30 stabilizing; continue current treatment plan 12/31 patient continues to stabilize; no change in medications at this time however will likely seek to reduce possibly Depakote her Zyprexa level; may increase Prozac for PTSD/OCD like symptoms 01/02 tough night, needing geodon prns; asked to change depakote to sprinkles and maybe lower dose since tired in daytime and pt may be stable at lower dose 01/03 will add short trial of Lasix 20mg BID for continued lower limb edema (Jamal stockings tried and ripped) 01/06/23- Continue current plan and regime 01/09 patient is significantly more depressed, hopeless and wishing she were . Situational stressors are significantly contributory including limited options for disposition and stressors on the unit; however patient is also reflecting on her life, her chronic symptoms and long history of living in institutions, creating a hopelessness that her things will get better. It is possible that changing Depakote formulation to DR could be contributory, however theoretically it is the same total daily dose. -patient has been in an institution more time the not since 6 years old and has spent the last 5 years in a [facility]; it was likely an unreasonable expectation that she would be able to immediately discharge and be successful in community. Rather acclimation will be a gradual process. At this time will increase Prozac to 60 mg to see if this can help. Currently patient is depressed and suicidal and in imminent risk of harm to self if discharged. 01/07 for patient a little bit improved, depression a little lower possibly due to increased Prozac 01/14 patient remains depressed but less so and she denies SI bilateral lower limb edema has decreased since getting her menses. Discussed disposition plans with social work case manager and reviewed possible options and concerns from both [facility] and [facility]; currently rec from DDS is for patient to undergo evaluation by Dr. Caputo; team agrees it will help to organize a joint meeting with both DDS in [facility] to clarify and discussed situation and options. 01/15 bilateral hand tremor; patient reports it is chronic and comes and goes but a little worse today 3.31 depressed; agrees to start lactulose -Director Internal Control called Lou Mitchell, supervising social work case manager at [facility] and discussed tx; Lou explained potentially collaborative involvement with [facility] and that patient was accepted to [facility] and approved for virtual assessment. 4/ to 01/20 multiple restraints over weekend 01/21 pt dysregulated over weekend; continues to seem more likely situational rather than due to past med changes; will consult w/ collegue for med suggestions. Currently, pt continues to need structured environment 01/22 depression remains maybe we worsening some; continues to seem mostly situational as her situation is causing a sense of hopelessness, patient worried she will never improve enough to be off a unit. Will add clonazepam scheduled low-dose to see if it can help with afternoon/evening dysregulated behaviors. Dr. Elaine consulted who agrees to meet with patient; technical document writer looks forward to Dr. Elaine as observations/recommendations. 01/24 continue current tx plan; reached out to ASD specialist regarding [facility] assessment; waiting for return call 01/28 Patient reports that her depression is not as significant as it was over the past few weeks; she finds it a little more possible to be hopeful. Patient asks for discharge saying she wants to go home but in discussion she agrees that she is currently not ready that the 13/05 availability of supportive staff is a significant part of patient remained stable. Discussed clonazepam and patient feels that it remains helpful, keeping her more calm. She wonders if this medication addition could be enough to allow her to go home to which technical document writer agrees to consider. 01/29 continue current treatment plan; discussed case with Dr. Elaine and social work case manager regarding disposition and progress made with DDS; discussed in detail progress made with [facility] who agrees to come and evaluate patient on the unit and and assess if patient is appropriate for community [facility] long term. This was discussed with patient who agrees to evaluation which will take place on the unit. 01/30 meeting w [facility]; changed clonazepam to prn 01/31 continue tx. PLAN: 1. ASD/PTSD/intermittent explosive disorder: clonazepam 0.5 b.i.d. prn for mild anxiety(does not feel she needs it schedule any more Continue to Depakote sprinkles DR 1200mg bId at 1400 and 2100 since dysregulated behaviors seem to mostly happen 2nd shift (roughly equiv to Depakote ER 2500 mg q.h.s ...) Continue Zyprexa 20 mg q.h.s. (may very well tolerate lower dose as overseen by outpatient provider) Increased Prozac to 60mg (increased during this admission) Continue Xanax 0.5 mg t.i.d. p.r.n. for AGITation; may give alone or with Geodon Continue Geodon 20 mg b.i.d. p.r.n. for agitation (*pt may get IM Geodon if requested for faster action) Continue Clonidine 0.1 mg t.i.d. Continue Trazodone 100 mg q.h.s. DC'd zyprexa 5mg in afternoon DC'd perphenazine (patient has no history of psychotic illness and very likely does not need this medication) Chronic conditions: 2. CHARLES positive appointment made with Rheumatology February 20 -daytime fatigue; b/l peripheral edema; mild dyspnea on exertion Discussed with Dr. Hamilton who recommends and following labs ordered: -Urine protein creatinine ratio -Rheumatoid factor -CCP antibody 3. Bilateral peripheral edema (lower/upper extrem):? Medication side effect (Zyprexa/Depakote)?? vs organic origin some reduction w/ lowering of medications Zyprexa and depakote r/u autoimune 4. Complaint of chronic struggles with inspiration: lungs CTA; CXR unremarkable Pulmonary function test: results reviewed, discussed with Dr. Melchor -elevated CHARLES and abnromal PFTs with a mild restriction with a mild diffusion impairment. -could be explained by her elevated BMI. -at this time dr. Melchor reports given lab work, at this time it does not look like she has lupus nor sjogrens nor scleroderma. Her cxr was good. needs a sleep study as an out pt (daytime drowsiness bringing up the possibility of obstructive sleep apnea) does not need an inpt ct scan but should f/up with outpt pulmonary and rheumatology. -in further discussion, Dr. Melchor agrees that CHARLES needs further evaluation, 5.hx of Amenorrhea: Patient did get her menses on 01/11 Patient did have menses a few years ago while on control; has not had it since control discontinued about 2 years ago Labs: mostly WNL; will f/u with PCP/dra[facility] PSYCHIATRIC IMPRESSION/DIAGNOSIS:. Impression: Patient is a fun, intelligent, cooperative and friendly person. When she gets triggered by something she can decompensate severely, dissociate and become physically aggressive.? Patient is now diagnosed with ASD, PTSD, and intermittent explosive disorder.? From [facility], she carried the diagnosis of Schizoaffective disorder and mention of borderline personality disorder.? Both of these have been ruled out.? Patient has no present psychotic symptoms, denies any history of AVH or delusional thinking, and has no reported history anywhere that can be found of any psychotic symptoms (history includes technical document writer having gone through numerous pages of notes from [facility] and other institutions).? She is linear, logical, articulate, insightful and organized in her thinking; she is organized in her behaviors.? Patient can have intrusive thoughts but only when triggered and this does not seem to be OCD.? She can have some rigid thinking in line with ASD.? Many of her dysregulated moments come from her PTSD being exacerbated.? Patient has well tolerated decrease of Zyprexa, decrease of Depakote and discontinuation of perphenazine. Primary dx: ASD. Patient's father and grandmother maintain that she met her milestones in childhood. 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 During childhood she attended [facility] [place], treatment center typically for people with autism; in [place] when at [facility], she carried a dx of ASD.? As observed on the unit, Patient frequently rocks back and forth, when standing or sitting, while talking to others or calming herself down.? Patient does not have a sense of a person's personal space and will get much to close to a person when talking; she is redirectable and apologizes but she is unaware she is doing it and does not get verbal cues when conversation participant is backing away or trying to end a conversation; though redirectable, she will again get too close, again unaware.? In the milieu with peers, While she will sometimes spend time in the vicinity of others, she is mostly alongside people and not directly interacting with them.? That said, she will directly interact with staff. Intermittent Flapping arms; rocking Patient does make eye contact, however she stares the entire time she is engaged. ? She can have a logical conversation Patient has a blunted affect and though she can smile and laugh, she is otherwise expressionless with blunted affect. Patient has in flexibility regarding food when it is not as expected patient can get severely dysregulated Patient has some hypo-reactivity to loud noises and crowds of people. Conversely, She does get jokes, even subtle ones. Symptoms have clearly made life functioning extremely difficult.? It is unclear if patient has had neuropsych testing. She did spend time at [facility]. Secondary dx: PTSD: Patient has a history of trauma from both childhood experiences, as well as trauma that occurred while on inpatient unit at this [facility] and [place].? She has also been institutionalized since a young age, away from her mother and father, feeling abandoned. Possibly (likely?) reactive attachment disorder.? She has several regressed behaviors and some child-like interests. Regarding Dissociative Disorder:? Patient has episodes of depersonalization and derealization which the typically arise when triggered and during which time she will feel detached from herself, from her body and feel as if things are unreal and dream like, with out a sense of time; after they conclude and she is again in the present, she can be upset about some behaviors she engaged in during the dissociate period once made aware. Not BPD: Regarding past references to borderline personality disorder, Director Internal Control and team agree there have been no axis II traits expressed throughout her time in the hospital; none could be cleaned from records No psychotic illness: no psychotic symptoms past or present Reason for contiued inpatient stay Substantial Risk for: inability to function Time Spent With Patient Time: Total time managing care of this patient today ____ minutes.
[2023-01-31] MEDS: Sennosides/Docusate Sodium TABLET 2 TAB PO ×2 (10:46→21:09)
[2023-01-31 10:47] VITALS: BP 116/73; PULSE 99; RESP 16; TEMP 36.2; O2SAT 98
[2023-01-31] MEDS: Furosemide 20 MG TABLET PO (10:47)
[2023-01-31] MEDS: FLUoxetine HCl 20 MG CAPSULE 60 MG PO (10:47)
[2023-01-31 14:12] VITALS: BP 115/80
[2023-01-31] MEDS: Divalproex Sodium Sprinkles 125 MG CAP.DR.SPR 1250 MG PO ×2 (14:13→21:09)
[2023-01-31] MEDS: cloNIDine HCL 0.1 MG TABLET PO (14:13)
[2023-01-31] MEDS: Ziprasidone Mesylate 20 MG VIAL IM (15:55)
--- NOTE | 2023-01-31 16:06 | PC.NURSE ---
At 1540 Pt requested to shave. This marketing copywriter offered to help patient in her room. Pt was bright, cheerful and reported being in a good mood today . Once patient was handed the razor in her bathroom, Pt then sat on her toilet and said I don't feel safe right now, I feel like I'm going to loose it . This marketing copywriter was able to take the razor out of patients hand and verbally deescalate the situation. Pt requested CHANELLE Aquino to help keep patient in behavioral control (per her request). notified. CHANELLE Aquino ordered and given to Left deltoid without incidence at 1600.
[2023-01-31 17:17] VITALS: BP 95/54; PULSE 65; RESP 16; O2SAT 97
[2023-01-31] MEDS: Melatonin 3 MG TABLET PO (21:09)
[2023-01-31] MEDS: Famotidine 20 MG TABLET PO (21:09)
[2023-01-31] MEDS: OLANZapine 10 MG TABLET 20 MG PO (21:09)
[2023-01-31] MEDS: Multivitamin TABLET 1 TAB PO (21:10)
[2023-01-31] MEDS: traZODone HCL 100 MG TABLET PO (21:10)
[2023-01-31] MEDS: diphenhydrAMINE HCL 25 MG CAPSULE 50 MG PO (21:10)
[2023-01-31 21:18] VITALS: BP 95/54; PULSE 75
[2023-02-01] MEDS: ALPRAZolam 0.5 MG TABLET PO (04:53)
[2023-02-01] MEDS: clonazePAM 0.5 MG TABLET PO (04:53)
--- NOTE | 2023-02-01 08:16 | HO.PSYCHPN ---
Subjective Subjective Date of Service: 02/01/23 Reason For Visit: Mood Dysregulation Interim History: Briefly met with patient; discussed with team Patient started getting dysregulated last night but self advocated for herself asking for Kenia ROCA which she found helpful. Still had trouble sleeping. Patient complains of dry nares and asks for nose spray. Mental Status Exam Mental Status Exam Narrative: Pt is alert and oriented; behavior is cooperative, calm; dressed in casual attire, mood is described as okay and affect congruent, little brighter; eye contact appropriate; Speech is regular rate, volume, prosody; some psychomotor retardation present; intermittent psychomotor retardation; thought process is organized and goal directed; Thought content is on trying to feel hopeful, treatment; otherwise pertinent to relevant topics and without any delusional content, paranoid ideations or grandiosity; no SI; no HI. No AVH and there is no evidence of perceptual disturbance.. Patients insight and judgment are impaired but improved. Diagnostics Vital Signs (24Hr): Vital Signs - 24 hr 01/31/23 10:47 01/31/23 14:12 01/31/23 17:17 Temperature 97.2 F Pulse Rate 99 65 Respiratory Rate 16 16 Blood Pressure 116/73 115/80 95/54 L Pulse Oximetry 98 97 Oxygen Delivery Method Room Air Room Air 01/31/23 21:18 Temperature Pulse Rate 75 Respiratory Rate Blood Pressure 95/54 L Pulse Oximetry Oxygen Delivery Method BMI result Body Mass Index 38.1 Labs 12/27/22 20:00 12/27/22 19:59 Imaging Radiology Impressions: ITS Impressions Hand X-Ray 01/18/23 23:35 IMPRESSION: No acute fracture or dislocation of either hand. Hand X-Ray 01/18/23 23:35 IMPRESSION: No acute fracture or dislocation of either hand. Medications Medications Current Medications Acetaminophen (Acetaminophen 325 Mg Tablet) 650 mg PO Q6H PRN PRN Reason: Headache/Pain Mild Scale (1-3) Last Admin: 01/28/23 22:23 Dose: 650 mg Al Hydroxide/Mg Hydroxide (Magnesium Hydrox/Alum Hydrox 30 Ml Oral.Susp) 30 ml PO Q6H PRN PRN Reason: Heartburn/Nausea Last Admin: 12/31/22 08:29 Dose: 30 ml Alprazolam (Alprazolam 0.5 Mg Tablet) 0.5 mg PO TID PRN PRN Reason: agitation Last Admin: 02/01/23 04:53 Dose: 0.5 mg Artificial Tears (Artificial Tears 15 Ml Drops) 2 drop EYE-BOTH Q4H PRN PRN Reason: Dry Eyes Last Admin: 01/30/23 19:23 Dose: 2 drop Bacitracin (Bacitracin Oint 14 Gm Tube) 1 appl TOPICAL TID [facility]; Protocol Last Admin: 01/31/23 21:06 Dose: Not Given Clonazepam (Clonazepam 0.5 Mg Tablet) 0.5 mg PO BID PRN PRN Reason: mild anxiety Last Admin: 02/01/23 04:53 Dose: 0.5 mg Clonidine HCl (Clonidine Hcl 0.1 Mg Tablet) 0.1 mg PO BID@1400,2100 [facility]; Protocol Last Admin: 01/31/23 21:10 Dose: Not Given Diphenhydramine HCl (Diphenhydramine Hcl 25 Mg Capsule) 50 mg PO BEDTIME [facility] Last Admin: 01/31/23 21:10 Dose: 50 mg Divalproex Sodium (Divalproex Sodium Sprinkles 125 Mg ) 1,250 mg PO BID@1400,2100 [facility] Last Admin: 01/31/23 21:09 Dose: 1,250 mg Famotidine (Famotidine 20 Mg Tablet) 20 mg PO BEDTIME [facility] Last Admin: 01/31/23 21:09 Dose: 20 mg Famotidine (Famotidine 20 Mg Tablet) 20 mg PO DAILY PRN PRN Reason: GERD Fluoxetine HCl (Fluoxetine Hcl 20 Mg Capsule) 60 mg PO DAILY [facility] Last Admin: 01/31/23 10:47 Dose: 60 mg Furosemide (Furosemide 20 Mg Tablet) 20 mg PO BID@0900,1700 [facility]; Protocol Last Admin: 01/31/23 17:19 Dose: Not Given Lactulose (Lactulose 20 Gm/30 Ml Solution) 20 gm PO DAILY [facility] Last Admin: 01/31/23 10:37 Dose: Not Given Loratadine (Loratadine 10 Mg Tablet) 10 mg PO DAILY PRN PRN Reason: congestion Last Admin: 01/29/23 11:42 Dose: 10 mg Melatonin (Melatonin 3 Mg Tablet) 3 mg PO BEDTIME PRN PRN Reason: insomnia Last Admin: 01/31/23 21:09 Dose: 3 mg Multivitamins/Vitamin C (Multivitamin Tablet) 1 tab PO BEDTIME [facility] Last Admin: 01/31/23 21:10 Dose: 1 tab Naproxen (Naproxen 500 Mg Tablet) 500 mg PO Q12H PRN PRN Reason: mild pain Last Admin: 01/30/23 17:48 Dose: 500 mg Olanzapine (Olanzapine 10 Mg Tablet) 20 mg PO BEDTIME [facility] Last Admin: 01/31/23 21:09 Dose: 20 mg Senna/Docusate Sodium (Sennosides/Docusate Sodium Tablet) 2 tab PO BID [facility] Last Admin: 01/31/23 21:09 Dose: 2 tab Sodium Biphosphate/Sodium Phosphate (Sodium Phosphate,[place]-Dibasic 133 Ml Enema) 133 ml MI ONCE [facility] Last Admin: 01/28/23 20:46 Dose: 133 ml Sodium Biphosphate/Sodium Phosphate (Sodium Phosphate,[place]-Dibasic 133 Ml Enema) 133 ml MI DAILY PRN PRN Reason: Constipation Trazodone HCl (Trazodone Hcl 50 Mg Tablet) 50 mg PO BEDTIME PRN PRN Reason: insomnia Last Admin: 01/26/23 20:42 Dose: 50 mg Trazodone HCl (Trazodone Hcl 100 Mg Tablet) 100 mg PO BEDTIME [facility] Last Admin: 01/31/23 21:10 Dose: 100 mg Ziprasidone (Ziprasidone 20 Mg Capsule) 20 mg PO BID PRN PRN Reason: Agitation Last Admin: 01/21/23 16:10 Dose: 20 mg Allergies Allergies Allergy/AdvReac Type Severity Reaction Status Date / Time chlorpromazine Allergy Anaphylaxis Verified 12/27/22 16:37 [From Thorazine] nut - unspecified Allergy Anxiety Verified 12/27/22 16:37 haloperidol [From Haldol] AdvReac Agitated Verified 12/27/22 16:37 lithium AdvReac Hives Verified 12/27/22 16:37 Assessment & Plan Assessment & Plan (1) Autism: Status: Suspected Code(s): F84.0 - Autistic disorder (2) PTSD (post-traumatic stress disorder): Status: Suspected Code(s): F43.10 - Post-traumatic stress disorder, unspecified (3) Intermittent explosive disorder: Status: Acute Code(s): F63.81 - Intermittent explosive disorder (4) CHARLES positive: Status: Acute Code(s): R76.8 - Other specified abnormal immunological findings in serum (5) Chronic restrictive lung disease: Status: Acute Code(s): J98.4 - Other disorders of lung (6) Peripheral edema: Status: Acute Code(s): R60.9 - Edema, unspecified (7) Amenorrhea: Status: Acute Code(s): N91.2 - Amenorrhea, unspecified Plan HPI: Patient is a bright, kind 22-year-old female, well known to this service, with history of Autism, PTSD recently discharged from on 12/25/2022 (and recently dc'd from [facility] after 5 years) who re-presents 2 days later for resurgence of suicidal ideation, dissociative episode and having run out during therapy session, into the street trying to hit by traffic and then eloping again from crisis again trying to get hit by oncoming cars. This has happened after ever discharge since coming to [facility]. Patient reports that day she left she had the intrusive thought that I am gonna screw this up again which just built and built until it overwhelmed her. Patient says she tried very hard to resist self-harm but the constant intrusive thought was unrelenting. She reports that on the way into the therapist building she got triggered as setting and some other people around reminded her of [facility]; already being on edge, this launched her into a full-blown panic attack; she dissociated and ran into the street wanting to . Patient says she just cannot seem to control. She also worries that she is unsafe living at her grandmother's, whom she loves dearly, because her grandmother is not able to sense when patient is starting to unravel and cannot preemptively help ground her and prevent dysregulated/dissociate of episode; patient says that sometimes she is able to alert her grandmother that she is headed this direction but many time she is not. Patient says she needs to live in a place with staff who were trained who can help divert her from such episodes. Passive SI remains but none active. Patient does not want to and wants to continue with treatment therapy. It is unclear if patient meets full criteria for OCD diagnosis however she has OCD like symptoms and will thus increase Prozac which has thus far been well tolerated. Hospital course: 12/30 stabilizing; continue current treatment plan 12/31 patient continues to stabilize; no change in medications at this time however will likely seek to reduce possibly Depakote her Zyprexa level; may increase Prozac for PTSD/OCD like symptoms 01/02 tough night, needing geodon prns; asked to change depakote to sprinkles and maybe lower dose since tired in daytime and pt may be stable at lower dose 01/03 will add short trial of Lasix 20mg BID for continued lower limb edema (Jamal stockings tried and ripped) 01/06/23- Continue current plan and regime 01/09 patient is significantly more depressed, hopeless and wishing she were . Situational stressors are significantly contributory including limited options for disposition and stressors on the unit; however patient is also reflecting on her life, her chronic symptoms and long history of living in institutions, creating a hopelessness that her things will get better. It is possible that changing Depakote formulation to DR could be contributory, however theoretically it is the same total daily dose. -patient has been in an institution more time the not since 6 years old and has spent the last 5 years in a [facility]; it was likely an unreasonable expectation that she would be able to immediately discharge and be successful in community. Rather acclimation will be a gradual process. At this time will increase Prozac to 60 mg to see if this can help. Currently patient is depressed and suicidal and in imminent risk of harm to self if discharged. 01/07 for patient a little bit improved, depression a little lower possibly due to increased Prozac 01/14 patient remains depressed but less so and she denies SI bilateral lower limb edema has decreased since getting her menses. Discussed disposition plans with oncology social work and reviewed possible options and concerns from both [facility] and [facility]; currently rec from [facility] is for patient to undergo evaluation by Dr. Caputo; team agrees it will help to organize a joint meeting with both [facility] in [facility] to clarify and discussed situation and options. 01/15 bilateral hand tremor; patient reports it is chronic and comes and goes but a little worse today 3.31 depressed; agrees to start lactulose -[employer] called Lou Mitchell, supervising showcase trimmer at [facility] and discussed tx; Lou explained potentially collaborative involvement with [facility] and that patient was accepted to [facility] and approved for virtual assessment. 4 to 01/20 multiple restraints over weekend 4/3 pt dysregulated over weekend; continues to seem more likely situational rather than due to past med changes; will consult w/ collegue for med suggestions. Currently, pt continues to need structured environment 01/22 depression remains maybe we worsening some; continues to seem mostly situational as her situation is causing a sense of hopelessness, patient worried she will never improve enough to be off a unit. Will add clonazepam scheduled low-dose to see if it can help with afternoon/evening dysregulated behaviors. Dr. Elaine consulted who agrees to meet with patient; show card writer looks forward to Dr. Elaine as observations/recommendations. 01/24 continue current tx plan; reached out to ASD specialist regarding [facility] assessment; waiting for return call 01/28 Patient reports that her depression is not as significant as it was over the past few weeks; she finds it a little more possible to be hopeful. Patient asks for discharge saying she wants to go home but in discussion she agrees that she is currently not ready that the 13/05 availability of supportive staff is a significant part of patient remained stable. Discussed clonazepam and patient feels that it remains helpful, keeping her more calm. She wonders if this medication addition could be enough to allow her to go home to which show card writer agrees to consider. 01/29 continue current treatment plan; discussed case with Dr. Elaine and oncology social work regarding disposition and progress made with [facility]; discussed in detail progress made with [facility] who agrees to come and evaluate patient on the unit and and assess if patient is appropriate for community [facility]. This was discussed with patient who agrees to evaluation which will take place on the unit. 01/30 meeting w [facility]; changed clonazepam to prn 02/01 continue current treatment plan; may add/schedule allergy medication PLAN: 1. ASD/PTSD/intermittent explosive disorder: clonazepam 0.5 b.i.d. prn for mild anxiety(does not feel she needs it schedule any more Continue to Depakote sprinkles DR 1200mg bId at 1400 and 2100 since dysregulated behaviors seem to mostly happen 2nd shift (roughly equiv to Depakote ER 2500 mg q.h.s ...) Continue Zyprexa 20 mg q.h.s. (may very well tolerate lower dose as overseen by outpatient provider) Increased Prozac to 60mg (increased during this admission) Continue Xanax 0.5 mg t.i.d. p.r.n. for AGITation; may give alone or with Geodon Continue Geodon 20 mg b.i.d. p.r.n. for agitation (*pt may get IM Geodon if requested for faster action) Continue Clonidine 0.1 mg t.i.d. Continue Trazodone 100 mg q.h.s. DC'd zyprexa 5mg in afternoon DC'd perphenazine (patient has no history of psychotic illness and very likely does not need this medication) Chronic conditions: 2. CHARLES positive appointment made with Rheumatology February 20 -daytime fatigue; b/l peripheral edema; mild dyspnea on exertion Discussed with Dr. Hamilton who recommends and following labs ordered: -Urine protein creatinine ratio -Rheumatoid factor -CCP antibody 3. Bilateral peripheral edema (lower/upper extrem):? Medication side effect (Zyprexa/Depakote)?? vs organic origin some reduction w/ lowering of medications Zyprexa and depakote r/u autoimune 4. Complaint of chronic struggles with inspiration: lungs CTA; CXR unremarkable Pulmonary function test: results reviewed, discussed with Dr. Melchor -elevated CHARLES and abnromal PFTs with a mild restriction with a mild diffusion impairment. -could be explained by her elevated BMI. -at this time dr. Melchor reports given lab work, at this time it does not look like she has lupus nor sjogrens nor scleroderma. Her cxr was good. needs a sleep study as an out pt (daytime drowsiness bringing up the possibility of obstructive sleep apnea) does not need an inpt ct scan but should f/up with outpt pulmonary and rheumatology. -in further discussion, Dr. Melchor agrees that CHARLES needs further evaluation, 5.hx of Amenorrhea: Patient did get her menses on 01/11 Patient did have menses a few years ago while on control; has not had it since control discontinued about 2 years ago Labs: mostly WNL; will f/u with PCP/university extension specialist PSYCHIATRIC IMPRESSION/DIAGNOSIS:. Impression: Patient is a fun, intelligent, cooperative and friendly person. When she gets triggered by something she can decompensate severely, dissociate and become physically aggressive.? Patient is now diagnosed with ASD, PTSD, and intermittent explosive disorder.? From [facility], she carried the diagnosis of Schizoaffective disorder and mention of borderline personality disorder.? Both of these have been ruled out.? Patient has no present psychotic symptoms, denies any history of AVH or delusional thinking, and has no reported history anywhere that can be found of any psychotic symptoms (history includes show card writer having gone through numerous pages of notes from [facility] and other institutions).? She is linear, logical, articulate, insightful and organized in her thinking; she is organized in her behaviors.? Patient can have intrusive thoughts but only when triggered and this does not seem to be OCD.? She can have some rigid thinking in line with ASD.? Many of her dysregulated moments come from her PTSD being exacerbated.? Patient has well tolerated decrease of Zyprexa, decrease of Depakote and discontinuation of perphenazine. Primary dx: ASD. Patient's father and grandmother maintain that she met her milestones in childhood. 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 During childhood she attended [facility] [place] in [place], treatment center typically for people with autism; in [place] when at [facility], she carried a dx of ASD.? As observed on the unit, Patient frequently rocks back and forth, when standing or sitting, while talking to others or calming herself down.? Patient does not have a sense of a person's personal space and will get much to close to a person when talking; she is redirectable and apologizes but she is unaware she is doing it and does not get verbal cues when conversation participant is backing away or trying to end a conversation; though redirectable, she will again get too close, again unaware.? In the milieu with peers, While she will sometimes spend time in the vicinity of others, she is mostly alongside people and not directly interacting with them.? That said, she will directly interact with staff. Intermittent Flapping arms; rocking Patient does make eye contact, however she stares the entire time she is engaged. ? She can have a logical conversation Patient has a blunted affect and though she can smile and laugh, she is otherwise expressionless with blunted affect. Patient has in flexibility regarding food when it is not as expected patient can get severely dysregulated Patient has some hypo-reactivity to loud noises and crowds of people. Conversely, She does get jokes, even subtle ones. Symptoms have clearly made life functioning extremely difficult.? It is unclear if patient has had neuropsych testing. She did spend time at [facility]. Secondary dx: PTSD: Patient has a history of trauma from both childhood experiences, as well as trauma that occurred while on inpatient unit at [facility] and [place].? She has also been institutionalized since a young age, away from her mother and father, feeling abandoned. Possibly (likely?) reactive attachment disorder.? She has several regressed behaviors and some child-like interests. Regarding Dissociative Disorder:? Patient has episodes of depersonalization and derealization which the typically arise when triggered and during which time she will feel detached from herself, from her body and feel as if things are unreal and dream like, with out a sense of time; after they conclude and she is again in the present, she can be upset about some behaviors she engaged in during the dissociate period once made aware. Not BPD: Regarding past references to borderline personality disorder, [employer] and team agree there have been no axis II traits expressed throughout her time in the hospital; none could be cleaned from records No psychotic illness: no psychotic symptoms past or present Reason for contiued inpatient stay Substantial Risk for: inability to function Time Spent With Patient Time: Total time managing care of this patient today ____ minutes.
[2023-02-01 09:39] VITALS: BP 98/59; PULSE 61; RESP 18; TEMP 35.9; O2SAT 96
[2023-02-01] MEDS: FLUoxetine HCl 20 MG CAPSULE 60 MG PO (13:01)
[2023-02-01] MEDS: Loratadine 10 MG TABLET PO (13:02)
[2023-02-01] MEDS: Furosemide 20 MG TABLET PO ×2 (13:02→16:08)
[2023-02-01] MEDS: Sennosides/Docusate Sodium TABLET 2 TAB PO ×2 (13:02→20:58)
[2023-02-01] MEDS: Divalproex Sodium Sprinkles 125 MG CAP.DR.SPR 1250 MG PO ×2 (13:03→20:58)
[2023-02-01] MEDS: cloNIDine HCL 0.1 MG TABLET PO ×2 (13:06→20:58)
[2023-02-01] MEDS: Artificial Tears 15 ML DROPS 2 DROP EYE-BOTH ×2 (13:19→21:13)
[2023-02-01] MEDS: Sodium Chloride 0.65 % Nasal 44 ML SPRBTL 1 SPRAY NOSTRIL-B ×2 (13:28→21:13)
[2023-02-01 16:44] VITALS: BP 114/56; PULSE 83; TEMP 36.3; O2SAT 98
[2023-02-01] MEDS: traZODone HCL 100 MG TABLET PO (20:56)
[2023-02-01] MEDS: Famotidine 20 MG TABLET PO (20:57)
[2023-02-01] MEDS: Melatonin 3 MG TABLET PO (20:58)
[2023-02-01] MEDS: Multivitamin TABLET 1 TAB PO (20:58)
[2023-02-01] MEDS: diphenhydrAMINE HCL 25 MG CAPSULE 50 MG PO (20:58)
[2023-02-01] MEDS: OLANZapine 10 MG TABLET 20 MG PO (20:58)
[2023-02-02 08:46] VITALS: BP 107/69; PULSE 93; RESP 16; TEMP 36.6; O2SAT 97
[2023-02-02] MEDS: Loratadine 10 MG TABLET PO (09:01)
[2023-02-02] MEDS: Furosemide 20 MG TABLET PO ×2 (09:01→18:31)
[2023-02-02] MEDS: FLUoxetine HCl 20 MG CAPSULE 60 MG PO (09:01)
[2023-02-02] MEDS: Lactulose 20 GM/30 ML SOLUTION PO (12:53)
[2023-02-02] MEDS: Sennosides/Docusate Sodium TABLET 2 TAB PO ×2 (12:53→21:19)
[2023-02-02] MEDS: Divalproex Sodium Sprinkles 125 MG CAP.DR.SPR 1250 MG PO ×2 (14:11→21:19)
[2023-02-02] MEDS: cloNIDine HCL 0.1 MG TABLET PO ×2 (14:11→21:19)
--- NOTE | 2023-02-02 15:06 | P.PNPSI_ITS ---
Subjective Subjective Date of Service: 02/02/23 Reason For Visit: Mood Dysregulation Interim History: Patient seen. Chart reviewed. Case discussed with RN. Complaining of constipation. States meds don't work and enema helped recently. Medication Compliance: Yes Side effects from medications: Yes Attending Groups: No Review of Systems Acute medical concerns: Yes ongoing complaints of constipation Medical Review of Systems: unchanged Mental Status Exam Mental Status Exam Patient Appearance: Well Grooomed Patient Orientation: Person, Place, Time and Situation Level of Consciousness: Alert Patient Behavior: Appropriate Mood Description: Anxious Affect Description: Apprehensive Ability to Follow Directions: Good Speech Pattern: Clear and Monotone Memory Description: Intact Hallucinations: None Delusions: Not Present Thought Process: Linear Thought Content: positive for Intact Judgement: Fair Diagnostics Vital Signs (24Hr): Vital Signs - 24 hr 02/01/23 16:44 02/02/23 08:46 Temperature 97.4 F 97.9 F Pulse Rate 83 93 Respiratory Rate 16 Blood Pressure 114/56 L 107/69 Pulse Oximetry 98 97 Oxygen Delivery Method Room Air Room Air BMI result Body Mass Index 38.1 Labs 12/27/22 20:00 12/27/22 19:59 Imaging Radiology Impressions: ITS Impressions Hand X-Ray 01/18/23 23:35 IMPRESSION: No acute fracture or dislocation of either hand. Hand X-Ray 01/18/23 23:35 IMPRESSION: No acute fracture or dislocation of either hand. Medications Medications Current Medications Acetaminophen (Acetaminophen 325 Mg Tablet) 650 mg PO Q6H PRN PRN Reason: Headache/Pain Mild Scale (1-3) Last Admin: 01/28/23 22:23 Dose: 650 mg Al Hydroxide/Mg Hydroxide (Magnesium Hydrox/Alum Hydrox 30 Ml Oral.Susp) 30 ml PO Q6H PRN PRN Reason: Heartburn/Nausea Last Admin: 12/31/22 08:29 Dose: 30 ml Alprazolam (Alprazolam 0.5 Mg Tablet) 0.5 mg PO TID PRN PRN Reason: agitation Last Admin: 02/01/23 04:53 Dose: 0.5 mg Artificial Tears (Artificial Tears 15 Ml Drops) 2 drop EYE-BOTH Q4H PRN PRN Reason: Dry Eyes Last Admin: 02/01/23 21:13 Dose: 2 drop Clonazepam (Clonazepam 0.5 Mg Tablet) 0.5 mg PO BID PRN PRN Reason: mild anxiety Last Admin: 02/01/23 04:53 Dose: 0.5 mg Clonidine HCl (Clonidine Hcl 0.1 Mg Tablet) 0.1 mg PO BID@1400,2100 [facility]; Protocol Last Admin: 02/02/23 14:11 Dose: 0.1 mg Diphenhydramine HCl (Diphenhydramine Hcl 25 Mg Capsule) 50 mg PO BEDTIME [facility] Last Admin: 02/01/23 20:58 Dose: 50 mg Divalproex Sodium (Divalproex Sodium Sprinkles 125 Mg Cap.) 1,250 mg PO BID@1400,2100 [facility] Last Admin: 02/02/23 14:11 Dose: 1,250 mg Famotidine (Famotidine 20 Mg Tablet) 20 mg PO BEDTIME [facility] Last Admin: 02/01/23 20:57 Dose: 20 mg Famotidine (Famotidine 20 Mg Tablet) 20 mg PO DAILY PRN PRN Reason: GERD Fluoxetine HCl (Fluoxetine Hcl 20 Mg Capsule) 60 mg PO DAILY [facility] Last Admin: 02/02/23 09:01 Dose: 60 mg Furosemide (Furosemide 20 Mg Tablet) 20 mg PO BID@0900,1700 [facility]; Protocol Last Admin: 02/02/23 09:01 Dose: 20 mg Lactulose (Lactulose 20 Gm/30 Ml Solution) 20 gm PO DAILY [facility] Last Admin: 02/02/23 12:53 Dose: 20 gm Loratadine (Loratadine 10 Mg Tablet) 10 mg PO DAILY [facility] Last Admin: 02/02/23 09:01 Dose: 10 mg Melatonin (Melatonin 3 Mg Tablet) 3 mg PO BEDTIME PRN PRN Reason: insomnia Last Admin: 02/01/23 20:58 Dose: 3 mg Multivitamins/Vitamin C (Multivitamin Tablet) 1 tab PO BEDTIME [facility] Last Admin: 02/01/23 20:58 Dose: 1 tab Naproxen (Naproxen 500 Mg Tablet) 500 mg PO Q12H PRN PRN Reason: mild pain Last Admin: 01/30/23 17:48 Dose: 500 mg Olanzapine (Olanzapine 10 Mg Tablet) 20 mg PO BEDTIME [facility] Last Admin: 02/01/23 20:58 Dose: 20 mg Senna/Docusate Sodium (Sennosides/Docusate Sodium Tablet) 2 tab PO BID [facility] Last Admin: 02/02/23 12:53 Dose: 2 tab Sodium Biphosphate/Sodium Phosphate (Sodium Phosphate,Jefferson-Dibasic 133 Ml Enema) 133 ml LA ONCE OSCAR Last Admin: 01/28/23 20:46 Dose: 133 ml Sodium Biphosphate/Sodium Phosphate (Sodium Phosphate,Jefferson-Dibasic 133 Ml Enema) 133 ml LA DAILY PRN PRN Reason: Constipation Sodium Chloride (Sodium Chloride 0.65 % Nasal 44 Ml Sprbtl) 1 spray NOSTRIL-B Q2H PRN PRN Reason: dry nares Last Admin: 02/01/23 21:13 Dose: 1 spray Trazodone HCl (Trazodone Hcl 50 Mg Tablet) 50 mg PO BEDTIME PRN PRN Reason: insomnia Last Admin: 01/26/23 20:42 Dose: 50 mg Trazodone HCl (Trazodone Hcl 100 Mg Tablet) 100 mg PO BEDTIME OSCAR Last Admin: 02/01/23 20:56 Dose: 100 mg Ziprasidone (Ziprasidone 20 Mg Capsule) 20 mg PO BID PRN PRN Reason: Agitation Last Admin: 01/21/23 16:10 Dose: 20 mg Allergies Allergies Allergy/AdvReac Type Severity Reaction Status Date / Time chlorpromazine Allergy Anaphylaxis Verified 12/27/22 16:37 [From Thorazine] nut - unspecified Allergy Anxiety Verified 12/27/22 16:37 haloperidol [From Haldol] AdvReac Agitated Verified 12/27/22 16:37 lithium AdvReac Hives Verified 12/27/22 16:37 Assessment & Plan Assessment & Plan (1) Autism: Status: Suspected Code(s): F84.0 - Autistic disorder (2) PTSD (post-traumatic stress disorder): Status: Suspected Code(s): F43.10 - Post-traumatic stress disorder, unspecified (3) Intermittent explosive disorder: Status: Acute Code(s): F63.81 - Intermittent explosive disorder (4) CHARLES positive: Status: Acute Code(s): R76.8 - Other specified abnormal immunological findings in serum (5) Chronic restrictive lung disease: Status: Acute Code(s): J98.4 - Other disorders of lung (6) Peripheral edema: Status: Acute Code(s): R60.9 - Edema, unspecified (7) Amenorrhea: Status: Acute Code(s): N91.2 - Amenorrhea, unspecified Assessment and Plan: 02/02: no changes in psych meds. Give one time enema Plan HPI: Patient is a bright, kind 22-year-old female, well known to this service, with history of Autism, PTSD recently discharged from on 12/25/2022 (and recently dc'd from [facility] after 5 years) who re-presents 2 days later for resurgence of suicidal ideation, dissociative episode and having run out during therapy session, into the street trying to hit by traffic and then eloping again from crisis again trying to get hit by oncoming cars. This has happened after ever discharge since coming to [facility]. Patient reports that day she left she had the intrusive thought that I am gonna screw this up again which just built and built until it overwhelmed her. Patient says she tried very hard to resist self-harm but the constant intrusive thought was unrelenting. She reports that on the way into the therapist building she got triggered as setting and some other people around reminded her of [facility]; already being on edge, this launched her into a full-blown panic attack; she dissociated and ran into the street wanting to . Patient says she just cannot seem to control. She also worries that she is unsafe living at her grandmother's, whom she loves dearly, because her grandmother is not able to sense when patient is starting to unravel and cannot preemptively help ground her and prevent dysregulated/dissociate of episode; patient says that sometimes she is able to alert her grandmother that she is headed this direction but many time she is not. Patient says she needs to live in a place with staff who were trained who can help divert her from such episodes. Passive SI remains but none active. Patient does not want to and wants to continue with treatment therapy. It is unclear if patient meets full criteria for OCD diagnosis however she has OCD like symptoms and will thus increase Prozac which has thus far been well tolerated. Hospital course: 12/30 stabilizing; continue current treatment plan 12/31 patient continues to stabilize; no change in medications at this time however will likely seek to reduce possibly Depakote her Zyprexa level; may increase Prozac for PTSD/OCD like symptoms 01/02 tough night, needing geodon prns; asked to change depakote to sprinkles and maybe lower dose since tired in daytime and pt may be stable at lower dose 01/03 will add short trial of Lasix 20mg BID for continued lower limb edema (Jamal stockings tried and ripped) 01/06/23- Continue current plan and regime 01/09 patient is significantly more depressed, hopeless and wishing she were . Situational stressors are significantly contributory including limited options for disposition and stressors on the unit; however patient is also reflecting on her life, her chronic symptoms and long history of living in institutions, creating a hopelessness that her things will get better. It is possible that changing Depakote formulation to DR could be contributory, however theoretically it is the same total daily dose. -patient has been in an institution more time the not since 6 years old and has spent the last 5 years in a [facility]; it was likely an unreasonable expectation that she would be able to immediately discharge and be successful in community. Rather acclimation will be a gradual process. At this time will increase Prozac to 60 mg to see if this can help. Currently patient is depressed and suicidal and in imminent risk of harm to self if discharged. 3 for patient a little bit improved, depression a little lower possibly due to increased Prozac 01/14 patient remains depressed but less so and she denies SI bilateral lower limb edema has decreased since getting her menses. Discussed disposition plans with social insurance specialist and reviewed possible options and concerns from both [facility] and [facility]; currently rec from [facility] is for patient to undergo evaluation by Dr. Caputo; team agrees it will help to organize a joint meeting with both [facility] in [facility] to clarify and discussed situation and options. 01/15 bilateral hand tremor; patient reports it is chronic and comes and goes but a little worse today 3.31 depressed; agrees to start lactulose -Coremaker Apprentice called Lou Mitchell, supervising case folder at S and discussed tx; Lou explained potentially collaborative involvement with [facility] and that patient was accepted to [facility] and approved for virtual assessment. 4/ to 01/20 multiple restraints over weekend 4/ pt dysregulated over weekend; continues to seem more likely situational rather than due to past med changes; will consult w/ collegue for med suggestions. Currently, pt continues to need structured environment 01/22 depression remains maybe we worsening some; continues to seem mostly situational as her situation is causing a sense of hopelessness, patient worried she will never improve enough to be off a unit. Will add clonazepam scheduled low-dose to see if it can help with afternoon/evening dysregulated behaviors. Dr. Elaine consulted who agrees to meet with patient; curriculum writer looks forward to Dr. Elaine as observations/recommendations. 01/24 continue current tx plan; reached out to ASD specialist regarding [facility] assessment; waiting for return call 01/28 Patient reports that her depression is not as significant as it was over the past few weeks; she finds it a little more possible to be hopeful. Patient asks for discharge saying she wants to go home but in discussion she agrees that she is currently not ready that the 13/05 availability of supportive staff is a significant part of patient remained stable. Discussed clonazepam and patient feels that it remains helpful, keeping her more calm. She wonders if this medication addition could be enough to allow her to go home to which curriculum writer agrees to consider. 01/29 continue current treatment plan; discussed case with Dr. Elaine and social insurance specialist regarding disposition and progress made with [facility]; discussed in detail progress made with [facility] who agrees to come and evaluate patient on the unit and and assess if patient is appropriate for community [facility] custodial. This was discussed with patient who agrees to evaluation which will take place on the unit. 01/30 meeting w [facility]; changed clonazepam to prn 01/31 continue tx. PLAN: 1. ASD/PTSD/intermittent explosive disorder: clonazepam 0.5 b.i.d. prn for mild anxiety(does not feel she needs it schedule any more Continue to Depakote sprinkles DR 1200mg bId at 1400 and 2100 since dysregulated behaviors seem to mostly happen 2nd shift (roughly equiv to Depakote ER 2500 mg q.h.s ...) Continue Zyprexa 20 mg q.h.s. (may very well tolerate lower dose as overseen by outpatient provider) Increased Prozac to 60mg (increased during this admission) Continue Xanax 0.5 mg t.i.d. p.r.n. for AGITation; may give alone or with Geodon Continue Geodon 20 mg b.i.d. p.r.n. for agitation (*pt may get IM Geodon if requested for faster action) Continue Clonidine 0.1 mg t.i.d. Continue Trazodone 100 mg q.h.s. DC'd zyprexa 5mg in afternoon DC'd perphenazine (patient has no history of psychotic illness and very likely does not need this medication) Chronic conditions: 2. CHARLES positive appointment made with Rheumatology February 20 -daytime fatigue; b/l peripheral edema; mild dyspnea on exertion Discussed with Dr. Hamilton who recommends and following labs ordered: -Urine protein creatinine ratio -Rheumatoid factor -CCP antibody 3. Bilateral peripheral edema (lower/upper extrem):? Medication side effect (Zyprexa/Depakote)?? vs organic origin some reduction w/ lowering of medications Zyprexa and depakote r/u autoimune 4. Complaint of chronic struggles with inspiration: lungs CTA; CXR unremarkable Pulmonary function test: results reviewed, discussed with Dr. Melchor -elevated CHARLES and abnromal PFTs with a mild restriction with a mild diffusion impairment. -could be explained by her elevated BMI. -at this time dr. Melchor reports given lab work, at this time it does not look like she has lupus nor sjogrens nor scleroderma. Her cxr was good. needs a sleep study as an out pt (daytime drowsiness bringing up the possibility of obstructive sleep apnea) does not need an inpt ct scan but should f/up with outpt pulmonary and rheumatology. -in further discussion, Dr. Melchor agrees that CHARLES needs further evaluation, 5.hx of Amenorrhea: Patient did get her menses on 01/11 Patient did have menses a few years ago while on control; has not had it since control discontinued about 2 years ago Labs: mostly WNL; will f/u with PCP/hay rake operator PSYCHIATRIC IMPRESSION/DIAGNOSIS:. Impression: Patient is a fun, intelligent, cooperative and friendly person. When she gets triggered by something she can decompensate severely, dissociate and become physically aggressive.? Patient is now diagnosed with ASD, PTSD, and intermittent explosive disorder.? From [facility], she carried the diagnosis of Schizoaffective disorder and mention of borderline personality disorder.? Both of these have been ruled out.? Patient has no present psychotic symptoms, denies any history of AVH or delusional thinking, and has no reported history anywhere that can be found of any psychotic symptoms (history includes curriculum writer having gone through numerous pages of notes from [facility] and other institutions).? She is linear, logical, articulate, insightful and organized in her thinking; she is organized in her behaviors.? Patient can have intrusive thoughts but only when triggered and this does not seem to be OCD.? She can have some rigid thinking in line with ASD.? Many of her dysregulated moments come from her PTSD being exacerbated.? Patient has well tolerated decrease of Zyprexa, decrease of Depakote and discontinuation of perphenazine. Primary dx: ASD. Patient's father and grandmother maintain that she met her milestones in childhood. Also reported is a history being diagnosed with a sensory integrat ion disorder in childhood.? During childhood [place] [facility] [place], treatment center typically for people with autism; in [place] when at [facility], she carried a dx of ASD.? As observed on the unit, Patient frequently rocks back and forth, when standing or sitting, while talking to others or calming herself down.? Patient does not have a sense of a person's personal space and will get much to close to a person when talking; she is redirectable and apologizes but she is unaware she is doing it and does not get verbal cues when conversation participant is backing away or trying to end a conversation; though redirectable, she will again get too close, again unaware.? In the milieu with peers, While she will sometimes spend time in the vicinity of others, she is mostly alongside people and not directly interacting with them.? That said, she will directly interact with staff. Intermittent Flapping arms; rocking Patient does make eye contact, however she stares the entire time she is engaged. ? She can have a logical conversation Patient has a blunted affect and though she can smile and laugh, she is otherwise expressionless with blunted affect. Patient has in flexibility regarding food when it is not as expected patient can get severely dysregulated Patient has some hypo-reactivity to loud noises and crowds of people. Conversely, She does get jokes, even subtle ones. Symptoms have clearly made life functioning extremely difficult.? It is unclear if patient has had neuropsych testing. She did spend time at [facility]. Secondary dx: PTSD: Patient has a history of trauma from both childhood experiences, as well as trauma that occurred while on inpatient unit at [facility] and [place].? She has also been institutionalized since a young age, away from her mother and father, feeling abandoned. Possibly (likely?) reactive attachment disorder.? She has several regressed behaviors and some child-like interests. Regarding Dissociative Disorder:? Patient has episodes of depersonalization and derealization which the typically arise when triggered and during which time she will feel detached from herself, from her body and feel as if things are unreal and dream like, with out a sense of time; after they conclude and she is again in the present, she can be upset about some behaviors she engaged in during the dissociate period once made aware. Not BPD: Regarding past references to borderline personality disorder, Coremaker Apprentice and team agree there have been no axis II traits expressed throughout her time in the hospital; none could be cleaned from records No psychotic illness: no psychotic symptoms past or present Reason for continued inpatient stay Substantial Risk for: rapid decompensation Time Spent With Patient Time: Total time managing care of this patient today ___15_ minutes.
[2023-02-02 18:30] VITALS: BP 149/84; PULSE 88; RESP 14; TEMP 36.4; O2SAT 97
[2023-02-02] MEDS: Sodium Phosphate,Mono-Dibasic 133 ML ENEMA PR (18:37)
[2023-02-02] MEDS: OLANZapine 10 MG TABLET 20 MG PO (21:18)
[2023-02-02] MEDS: traZODone HCL 100 MG TABLET PO (21:18)
[2023-02-02] MEDS: diphenhydrAMINE HCL 25 MG CAPSULE 50 MG PO (21:18)
[2023-02-02] MEDS: Famotidine 20 MG TABLET PO (21:18)
[2023-02-02] MEDS: Multivitamin TABLET 1 TAB PO (21:19)
[2023-02-03] MEDS: FLUoxetine HCl 20 MG CAPSULE 60 MG PO (09:21)
[2023-02-03] MEDS: Sennosides/Docusate Sodium TABLET 2 TAB PO ×2 (09:21→21:57)
[2023-02-03] MEDS: Furosemide 20 MG TABLET PO ×2 (09:21→16:49)
[2023-02-03] MEDS: Loratadine 10 MG TABLET PO (09:21)
[2023-02-03 09:26] VITALS: BP 94/62; PULSE 68; RESP 16; TEMP 36.8; O2SAT 95
[2023-02-03] MEDS: Divalproex Sodium Sprinkles 125 MG CAP.DR.SPR 1250 MG PO ×2 (15:06→21:53)
[2023-02-03 15:30] VITALS: BP 106/67; PULSE 84; TEMP 36.4
[2023-02-03] MEDS: cloNIDine HCL 0.1 MG TABLET PO ×2 (15:32→21:57)
--- NOTE | 2023-02-03 15:53 | HO.PSYCHPN ---
Subjective Subjective Date of Service: 02/03/23 Reason For Visit: Mood Dysregulation Interim History: Patient seen, chart reviewed. Case discussed with RN. Maintained good control after another patient ripped a sign off of her door. Patient stating that ativan should be listed as an allergy because in the past I flipped out when I was on it for a few days. Got good results from enema yesterday. Eating and sleeping OK. Social with peers. Medication Compliance: Yes Side effects from medications: No Attending Groups: Yes Review of Systems Acute medical concerns: No Mental Status Exam Mental Status Exam Patient Appearance: Unkempt Level of Consciousness: Alert Patient Behavior: Appropriate and Good Eye Contact Mood Description: Anxious Affect Description: Appropriate Speech Pattern: Monotone Hallucinations: None Delusions: Not Present Thought Process: Linear Diagnostics Vital Signs (24Hr): Vital Signs - 24 hr 02/02/23 18:30 02/03/23 09:26 Temperature 97.5 F 98.2 F Pulse Rate 88 68 Respiratory Rate 14 16 Blood Pressure 149/84 H 94/62 Pulse Oximetry 97 95 Oxygen Delivery Method Room Air Room Air BMI result Body Mass Index 38.1 Labs 12/27/22 20:00 12/27/22 19:59 Imaging Radiology Impressions: ITS Impressions Hand X-Ray 01/18/23 23:35 IMPRESSION: No acute fracture or dislocation of either hand. Hand X-Ray 01/18/23 23:35 IMPRESSION: No acute fracture or dislocation of either hand. Medications Medications Current Medications Acetaminophen (Acetaminophen 325 Mg Tablet) 650 mg PO Q6H PRN PRN Reason: Headache/Pain Mild Scale (1-3) Last Admin: 01/28/23 22:23 Dose: 650 mg Al Hydroxide/Mg Hydroxide (Magnesium Hydrox/Alum Hydrox 30 Ml Oral.Susp) 30 ml PO Q6H PRN PRN Reason: Heartburn/Nausea Last Admin: 12/31/22 08:29 Dose: 30 ml Alprazolam (Alprazolam 0.5 Mg Tablet) 0.5 mg PO TID PRN PRN Reason: agitation Last Admin: 02/01/23 04:53 Dose: 0.5 mg Artificial Tears (Artificial Tears 15 Ml Drops) 2 drop EYE-BOTH Q4H PRN PRN Reason: Dry Eyes Last Admin: 02/01/23 21:13 Dose: 2 drop Clonazepam (Clonazepam 0.5 Mg Tablet) 0.5 mg PO BID PRN PRN Reason: mild anxiety Last Admin: 02/01/23 04:53 Dose: 0.5 mg Clonidine HCl (Clonidine Hcl 0.1 Mg Tablet) 0.1 mg PO BID@1400,2100 [facility]; Protocol Last Admin: 02/03/23 15:32 Dose: 0.1 mg Diphenhydramine HCl (Diphenhydramine Hcl 25 Mg Capsule) 50 mg PO BEDTIME [facility] Last Admin: 02/02/23 21:18 Dose: 50 mg Divalproex Sodium (Divalproex Sodium Sprinkles 125 Mg ) 1,250 mg PO BID@1400,2100 [facility] Last Admin: 02/03/23 15:06 Dose: 1,250 mg Famotidine (Famotidine 20 Mg Tablet) 20 mg PO BEDTIME [facility] Last Admin: 02/02/23 21:18 Dose: 20 mg Famotidine (Famotidine 20 Mg Tablet) 20 mg PO DAILY PRN PRN Reason: GERD Fluoxetine HCl (Fluoxetine Hcl 20 Mg Capsule) 60 mg PO DAILY [facility] Last Admin: 02/03/23 09:21 Dose: 60 mg Furosemide (Furosemide 20 Mg Tablet) 20 mg PO BID@0900,1700 [facility]; Protocol Last Admin: 02/03/23 09:21 Dose: 20 mg Lactulose (Lactulose 20 Gm/30 Ml Solution) 20 gm PO DAILY [facility] Last Admin: 02/03/23 09:30 Dose: Not Given Loratadine (Loratadine 10 Mg Tablet) 10 mg PO DAILY [facility] Last Admin: 02/03/23 09:21 Dose: 10 mg Melatonin (Melatonin 3 Mg Tablet) 3 mg PO BEDTIME PRN PRN Reason: insomnia Last Admin: 02/01/23 20:58 Dose: 3 mg Multivitamins/Vitamin C (Multivitamin Tablet) 1 tab PO BEDTIME [facility] Last Admin: 02/02/23 21:19 Dose: 1 tab Naproxen (Naproxen 500 Mg Tablet) 500 mg PO Q12H PRN PRN Reason: mild pain Last Admin: 01/30/23 17:48 Dose: 500 mg Olanzapine (Olanzapine 10 Mg Tablet) 20 mg PO BEDTIME [facility] Last Admin: 02/02/23 21:18 Dose: 20 mg Senna/Docusate Sodium (Sennosides/Docusate Sodium Tablet) 2 tab PO BID [facility] Last Admin: 02/03/23 09:21 Dose: 2 tab Sodium Biphosphate/Sodium Phosphate (Sodium Phosphate,Churchill-Dibasic 133 Ml Enema) 133 ml NH ONCE OSCAR Last Admin: 01/28/23 20:46 Dose: 133 ml Sodium Biphosphate/Sodium Phosphate (Sodium Phosphate,Churchill-Dibasic 133 Ml Enema) 133 ml NH DAILY PRN PRN Reason: Constipation Last Admin: 02/02/23 18:37 Dose: 133 ml Sodium Chloride (Sodium Chloride 0.65 % Nasal 44 Ml Sprbtl) 1 spray NOSTRIL-B Q2H PRN PRN Reason: dry nares Last Admin: 02/01/23 21:13 Dose: 1 spray Trazodone HCl (Trazodone Hcl 50 Mg Tablet) 50 mg PO BEDTIME PRN PRN Reason: insomnia Last Admin: 01/26/23 20:42 Dose: 50 mg Trazodone HCl (Trazodone Hcl 100 Mg Tablet) 100 mg PO BEDTIME OSCAR Last Admin: 02/02/23 21:18 Dose: 100 mg Ziprasidone (Ziprasidone 20 Mg Capsule) 20 mg PO BID PRN PRN Reason: Agitation Last Admin: 01/21/23 16:10 Dose: 20 mg Allergies Allergies Allergy/AdvReac Type Severity Reaction Status Date / Time chlorpromazine Allergy Anaphylaxis Verified 12/27/22 16:37 [From Thorazine] nut - unspecified Allergy Anxiety Verified 12/27/22 16:37 haloperidol [From Haldol] AdvReac Agitated Verified 12/27/22 16:37 lithium AdvReac Hives Verified 12/27/22 16:37 lorazepam [From Ativan] AdvReac Agitated Verified 02/02/23 18:23 Assessment & Plan Assessment & Plan (1) Autism: Status: Suspected Code(s): F84.0 - Autistic disorder (2) PTSD (post-traumatic stress disorder): Status: Suspected Code(s): F43.10 - Post-traumatic stress disorder, unspecified (3) Intermittent explosive disorder: Status: Acute Code(s): F63.81 - Intermittent explosive disorder (4) CHARLES positive: Status: Acute Code(s): R76.8 - Other specified abnormal immunological findings in serum (5) Chronic restrictive lung disease: Status: Acute Code(s): J98.4 - Other disorders of lung (6) Peripheral edema: Status: Acute Code(s): R60.9 - Edema, unspecified (7) Amenorrhea: Status: Acute Code(s): N91.2 - Amenorrhea, unspecified Assessment and Plan: 02/02: no changes in psych meds. Give one time enema Plan HPI: Patient is a bright, kind 22-year-old female, well known to this service, with history of Autism, PTSD recently discharged from on 12/25/2022 (and recently dc'd from [facility] after 5 years) who re-presents 2 days later for resurgence of suicidal ideation, dissociative episode and having run out during therapy session, into the street trying to hit by traffic and then eloping again from crisis again trying to get hit by oncoming cars. This has happened after ever discharge since coming to [facility]. Patient reports that day she left she had the intrusive thought that I am gonna screw this up again which just built and built until it overwhelmed her. Patient says she tried very hard to resist self-harm but the constant intrusive thought was unrelenting. She reports that on the way into the therapist building she got triggered as setting and some other people around reminded her of [facility]; already being on edge, this launched her into a full-blown panic attack; she dissociated and ran into the street wanting to . Patient says she just cannot seem to control. She also worries that she is unsafe living at her grandmother's, whom she loves dearly, because her grandmother is not able to sense when patient is starting to unravel and cannot preemptively help ground her and prevent dysregulated/dissociate of episode; patient says that sometimes she is able to alert her grandmother that she is headed this direction but many time she is not. Patient says she needs to live in a place with staff who were trained who can help divert her from such episodes. Passive SI remains but none active. Patient does not want to and wants to continue with treatment therapy. It is unclear if patient meets full criteria for OCD diagnosis however she has OCD like symptoms and will thus increase Prozac which has thus far been well tolerated. Hospital course: 12/30 stabilizing; continue current treatment plan 12/31 patient continues to stabilize; no change in medications at this time however will likely seek to reduce possibly Depakote her Zyprexa level; may increase Prozac for PTSD/OCD like symptoms 01/02 tough night, needing geodon prns; asked to change depakote to sprinkles and maybe lower dose since tired in daytime and pt may be stable at lower dose 01/03 will add short trial of Lasix 20mg BID for continued lower limb edema (Jamal stockings tried and ripped) 01/06/23- Continue current plan and regime 01/09 patient is significantly more depressed, hopeless and wishing she were . Situational stressors are significantly contributory including limited options for disposition and stressors on the unit; however patient is also reflecting on her life, her chronic symptoms and long history of living in institutions, creating a hopelessness that her things will get better. It is possible that changing Depakote formulation to DR could be contributory, however theoretically it is the same total daily dose. -patient has been in an institution more time the not since 6 years old and has spent the last 5 years in a [facility]; it was likely an unreasonable expectation that she would be able to immediately discharge and be successful in community. Rather acclimation will be a gradual process. At this time will increase Prozac to 60 mg to see if this can help. Currently patient is depressed and suicidal and in imminent risk of harm to self if discharged. 01/07 for patient a little bit improved, depression a little lower possibly due to increased Prozac 01/14 patient remains depressed but less so and she denies SI bilateral lower limb edema has decreased since getting her menses. Discussed disposition plans with secondary social studies teacher and reviewed possible options and concerns from both [facility] and [facility]; currently rec from [facility] is for patient to undergo evaluation by Dr. Cpauto; team agrees it will help to organize a joint meeting with both [facility] in [facility] to clarify and discussed situation and options. 01/15 bilateral hand tremor; patient reports it is chronic and comes and goes but a little worse today 3.31 depressed; agrees to start lactulose -Stove Carriage Operator called Lou Mitchell, supervising senior clinical data manager at [facility] and discussed tx; Lou explained potentially collaborative involvement with [facility] and that patient was accepted to [facility] and approved for virtual assessment. 4 to 01/20 multiple restraints over weekend 4/3 pt dysregulated over weekend; continues to seem more likely situational rather than due to past med changes; will consult w/ collegue for med suggestions. Currently, pt continues to need structured environment 01/22 depression remains maybe we worsening some; continues to seem mostly situational as her situation is causing a sense of hopelessness, patient worried she will never improve enough to be off a unit. Will add clonazepam scheduled low-dose to see if it can help with afternoon/evening dysregulated behaviors. Dr. Elaine consulted who agrees to meet with patient; repairer typewriter looks forward to Dr. Elaine as observations/recommendations. 01/24 continue current tx plan; reached out to ASD specialist regarding [facility] assessment; waiting for return call 01/28 Patient reports that her depression is not as significant as it was over the past few weeks; she finds it a little more possible to be hopeful. Patient asks for discharge saying she wants to go home but in discussion she agrees that she is currently not ready that the / availability of supportive staff is a significant part of patient remained stable. Discussed clonazepam and patient feels that it remains helpful, keeping her more calm. She wonders if this medication addition could be enough to allow her to go home to which repairer typewriter agrees to consider. 01/29 continue current treatment plan; discussed case with Dr. Elaine and secondary social studies teacher regarding disposition and progress made with [facility]; discussed in detail progress made with [facility] who agrees to come and evaluate patient on the unit and and assess if patient is appropriate for [facility]. This was discussed with patient who agrees to evaluation which will take place on the unit. 01/30 meeting w [facility]; changed clonazepam to prn 01/31 continue tx. 02/02 no med changes 02/03 no med changes, ativan already listed as an allergy PLAN: 1. ASD/PTSD/intermittent explosive disorder: clonazepam 0.5 b.i.d. prn for mild anxiety(does not feel she needs it schedule any more Continue to Depakote sprinkles DR 1200mg bId at 1400 and 2100 since dysregulated behaviors seem to mostly happen 2nd shift (roughly equiv to Depakote ER 2500 mg q.h.s ...) Continue Zyprexa 20 mg q.h.s. (may very well tolerate lower dose as overseen by outpatient provider) Increased Prozac to 60mg (increased during this admission) Continue Xanax 0.5 mg t.i.d. p.r.n. for AGITation; may give alone or with Geodon Continue Geodon 20 mg b.i.d. p.r.n. for agitation (*pt may get IM Geodon if requested for faster action) Continue Clonidine 0.1 mg t.i.d. Continue Trazodone 100 mg q.h.s. DC'd zyprexa 5mg in afternoon DC'd perphenazine (patient has no history of psychotic illness and very likely does not need this medication) Chronic conditions: 2. CHARLES positive appointment made with Rheumatology February 20 -daytime fatigue; b/l peripheral edema; mild dyspnea on exertion Discussed with Dr. Hamilton who recommends and following labs ordered: -Urine protein creatinine ratio -Rheumatoid factor -CCP antibody 3. Bilateral peripheral edema (lower/upper extrem):? Medication side effect (Zyprexa/Depakote)?? vs organic origin some reduction w/ lowering of medications Zyprexa and depakote r/u autoimune 4. Complaint of chronic struggles with inspiration: lungs CTA; CXR unremarkable Pulmonary function test: results reviewed, discussed with Dr. Melchor -elevated CHARLES and abnromal PFTs with a mild restriction with a mild diffusion impairment. -could be explained by her elevated BMI. -at this time dr. Melchor reports given lab work, at this time it does not look like she has lupus nor sjogrens nor scleroderma. Her cxr was good. needs a sleep study as an out pt (daytime drowsiness bringing up the possibility of obstructive sleep apnea) does not need an inpt ct scan but should f/up with outpt pulmonary and rheumatology. -in further discussion, Dr. Melchor agrees that CHARLES needs further evaluation, 5.hx of Amenorrhea: Patient did get her menses on 01/11 Patient did have menses a few years ago while on control; has not had it since control discontinued about 2 years ago Labs: mostly WNL; will f/u with PCP/developer automatic PSYCHIATRIC IMPRESSION/DIAGNOSIS:. Impression: Patient is a fun, intelligent, cooperative and friendly person. When she gets triggered by something she can decompensate severely, dissociate and become physically aggressive.? Patient is now diagnosed with ASD, PTSD, and intermittent explosive disorder.? From [facility], she carried the diagnosis of Schizoaffective disorder and mention of borderline personality disorder.? Both of these have been ruled out.? Patient has no present psychotic symptoms, denies any history of AVH or delusional thinking, and has no reported history anywhere that can be found of any psychotic symptoms (history includes repairer typewriter having gone through numerous pages of notes from [facility] and other institutions).? She is linear, logical, articulate, insightful and organized in her thinking; she is organized in her behaviors.? Patient can have intrusive thoughts but only when triggered and this does not seem to be OCD.? She can have some rigid thinking in line with ASD.? Many of her dysregulated moments come from her PTSD being exacerbated.? Patient has well tolerated decrease of Zyprexa, decrease of Depakote and discontinuation of perphenazine. Primary dx: ASD. Patient's father and grandmother maintain that she met her milestones in childhood. 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 During childhood she attended [facility] in [place], treatment center typically for people with autism; in [place] when at [facility], she carried a dx of ASD.? As observed on the unit, Patient frequently rocks back and forth, when standing or sitting, while talking to others or calming herself down.? Patient does not have a sense of a person's personal space and will get much to close to a person when talking; she is redirectable and apologizes but she is unaware she is doing it and does not get verbal cues when conversation participant is backing away or trying to end a conversation; though redirectable, she will again get too close, again unaware.? In the milieu with peers, While she will sometimes spend time in the vicinity of others, she is mostly alongside people and not directly interacting with them.? That said, she will directly interact with staff. Intermittent Flapping arms; rocking Patient does make eye contact, however she stares the entire time she is engaged. ? She can have a logical conversation Patient has a blunted affect and though she can smile and laugh, she is otherwise expressionless with blunted affect. Patient has in flexibility regarding food when it is not as expected patient can get severely dysregulated Patient has some hypo-reactivity to loud noises and crowds of people. Conversely, She does get jokes, even subtle ones. Symptoms have clearly made life functioning extremely difficult.? It is unclear if patient has had neuropsych testing. She did spend time at [facility]. Secondary dx: PTSD: Patient has a history of trauma from both childhood experiences, as well as trauma that occurred while on inpatient unit at this [facility] and [place].? She has also been institutionalized since a young age, away from her mother and father, feeling abandoned. Possibly (likely?) reactive attachment disorder.? She has several regressed behaviors and some child-like interests. Regarding Dissociative Disorder:? Patient has episodes of depersonalization and derealization which the typically arise when triggered and during which time she will feel detached from herself, from her body and feel as if things are unreal and dream like, with out a sense of time; after they conclude and she is again in the present, she can be upset about some behaviors she engaged in during the dissociate period once made aware. Not BPD: Regarding past references to borderline personality disorder, Stove Carriage Operator and team agree there have been no axis II traits expressed throughout her time in the hospital; none could be cleaned from records No psychotic illness: no psychotic symptoms past or present Reason for continued inpatient stay Substantial Risk for: rapid decompensation Time Spent With Patient Time: Total time managing care of this patient today ____ minutes.
[2023-02-03 16:50] VITALS: BP 111/62; PULSE 92
[2023-02-03] MEDS: OLANZapine 10 MG TABLET 20 MG PO (21:56)
[2023-02-03] MEDS: traZODone HCL 100 MG TABLET PO (21:57)
[2023-02-03] MEDS: diphenhydrAMINE HCL 25 MG CAPSULE 50 MG PO (21:57)
[2023-02-03] MEDS: Multivitamin TABLET 1 TAB PO (21:57)
[2023-02-03] MEDS: Famotidine 20 MG TABLET PO (21:57)
[2023-02-03] MEDS: Melatonin 3 MG TABLET PO (22:43)
[2023-02-04 11:47] VITALS: BP 124/64; PULSE 85; RESP 18; TEMP 36.4; O2SAT 95
[2023-02-04] MEDS: Furosemide 20 MG TABLET PO (11:50)
[2023-02-04] MEDS: FLUoxetine HCl 20 MG CAPSULE 60 MG PO (11:51)
[2023-02-04] MEDS: Loratadine 10 MG TABLET PO (11:51)
[2023-02-04] MEDS: Sennosides/Docusate Sodium TABLET 2 TAB PO ×2 (11:52→22:53)
--- NOTE | 2023-02-04 13:06 | P.PNPSI_ITS ---
Subjective Subjective Date of Service: 02/04/23 Reason For Visit: Mood Dysregulation Subjective Notes: Conditional Voluntary Interim History: Social with peers and expressing that she will be missing some people that are discharging tomorrow. Upset that another patient had frightened peers but is firm in saying that she would not retaliate in any way despite being upset with this patient. Eating OK. Took melatonin last night and slept well. No other PRNs given. Medication Compliance: Yes Side effects from medications: No Attending Groups: Yes Review of Systems Acute medical concerns: No Mental Status Exam Mental Status Exam Patient Appearance: Unkempt (wearing same shirt 3 days in a row) Level of Consciousness: Alert Patient Behavior: Appropriate Mood Description: Calm Affect Description: Constricted Speech Pattern: Clear Hallucinations: None Delusions: Not Present Thought Content: positive for Intact Judgement: Good Diagnostics Vital Signs (24Hr): Vital Signs - 24 hr 02/03/23 15:30 02/03/23 16:50 02/04/23 11:47 Temperature 97.5 F 97.5 F Pulse Rate 84 92 85 Respiratory Rate 18 Blood Pressure 106/67 111/62 124/64 Pulse Oximetry 95 Oxygen Delivery Method Room Air BMI result Body Mass Index 38.1 Labs 12/27/22 20:00 12/27/22 19:59 Imaging Radiology Impressions: ITS Impressions Hand X-Ray 01/18/23 23:35 IMPRESSION: No acute fracture or dislocation of either hand. Hand X-Ray 01/18/23 23:35 IMPRESSION: No acute fracture or dislocation of either hand. Medications Medications Current Medications Acetaminophen (Acetaminophen 325 Mg Tablet) 650 mg PO Q6H PRN PRN Reason: Headache/Pain Mild Scale (1-3) Last Admin: 01/28/23 22:23 Dose: 650 mg Al Hydroxide/Mg Hydroxide (Magnesium Hydrox/Alum Hydrox 30 Ml Oral.Susp) 30 ml PO Q6H PRN PRN Reason: Heartburn/Nausea Last Admin: 12/31/22 08:29 Dose: 30 ml Alprazolam (Alprazolam 0.5 Mg Tablet) 0.5 mg PO TID PRN PRN Reason: agitation Last Admin: 02/01/23 04:53 Dose: 0.5 mg Artificial Tears (Artificial Tears 15 Ml Drops) 2 drop EYE-BOTH Q4H PRN PRN Reason: Dry Eyes Last Admin: 02/01/23 21:13 Dose: 2 drop Clonazepam (Clonazepam 0.5 Mg Tablet) 0.5 mg PO BID PRN PRN Reason: mild anxiety Last Admin: 02/01/23 04:53 Dose: 0.5 mg Clonidine HCl (Clonidine Hcl 0.1 Mg Tablet) 0.1 mg PO BID@1400,2100 [facility]; Protocol Last Admin: 02/03/23 21:57 Dose: 0.1 mg Diphenhydramine HCl (Diphenhydramine Hcl 25 Mg Capsule) 50 mg PO BEDTIME [facility] Last Admin: 02/03/23 21:57 Dose: 50 mg Divalproex Sodium (Divalproex Sodium Sprinkles 125 Mg Donald.) 1,250 mg PO BID@1400,2100 [facility] Last Admin: 02/03/23 21:53 Dose: 1,250 mg Famotidine (Famotidine 20 Mg Tablet) 20 mg PO BEDTIME [facility] Last Admin: 02/03/23 21:57 Dose: 20 mg Famotidine (Famotidine 20 Mg Tablet) 20 mg PO DAILY PRN PRN Reason: GERD Fluoxetine HCl (Fluoxetine Hcl 20 Mg Capsule) 60 mg PO DAILY [facility] Last Admin: 02/04/23 11:51 Dose: 60 mg Furosemide (Furosemide 20 Mg Tablet) 20 mg PO BID@0900,1700 [facility]; Protocol Last Admin: 02/04/23 11:50 Dose: 20 mg Lactulose (Lactulose 20 Gm/30 Ml Solution) 20 gm PO DAILY [facility] Last Admin: 02/04/23 11:52 Dose: Not Given Loratadine (Loratadine 10 Mg Tablet) 10 mg PO DAILY [facility] Last Admin: 02/04/23 11:51 Dose: 10 mg Melatonin (Melatonin 3 Mg Tablet) 3 mg PO BEDTIME PRN PRN Reason: insomnia Last Admin: 02/03/23 22:43 Dose: 3 mg Multivitamins/Vitamin C (Multivitamin Tablet) 1 tab PO BEDTIME [facility] Last Admin: 02/03/23 21:57 Dose: 1 tab Naproxen (Naproxen 500 Mg Tablet) 500 mg PO Q12H PRN PRN Reason: mild pain Last Admin: 01/30/23 17:48 Dose: 500 mg Olanzapine (Olanzapine 10 Mg Tablet) 20 mg PO BEDTIME [facility] Last Admin: 02/03/23 21:56 Dose: 20 mg Senna/Docusate Sodium (Sennosides/Docusate Sodium Tablet) 2 tab PO BID [facility] Last Admin: 02/04/23 11:52 Dose: 2 tab Sodium Biphosphate/Sodium Phosphate (Sodium Phosphate,Garza-Dibasic 133 Ml Enema) 133 ml KS ONCE [facility]SC[facility] Last Admin: 01/28/23 20:46 Dose: 133 ml Sodium Biphosphate/Sodium Phosphate (Sodium Phosphate,Garza-Dibasic 133 Ml Enema) 133 ml KS DAILY PRN PRN Reason: Constipation Last Admin: 02/02/23 18:37 Dose: 133 ml Sodium Chloride (Sodium Chloride 0.65 % Nasal 44 Ml Sprbtl) 1 spray NOSTRIL-B Q2H PRN PRN Reason: dry nares Last Admin: 02/01/23 21:13 Dose: 1 spray Trazodone HCl (Trazodone Hcl 50 Mg Tablet) 50 mg PO BEDTIME PRN PRN Reason: insomnia Last Admin: 01/26/23 20:42 Dose: 50 mg Trazodone HCl (Trazodone Hcl 100 Mg Tablet) 100 mg PO BEDTIME [facility] Last Admin: 02/03/23 21:57 Dose: 100 mg Ziprasidone (Ziprasidone 20 Mg Capsule) 20 mg PO BID PRN PRN Reason: Agitation Last Admin: 01/21/23 16:10 Dose: 20 mg Allergies Allergies Allergy/AdvReac Type Severity Reaction Status Date / Time chlorpromazine Allergy Anaphylaxis Verified 12/27/22 16:37 [From Thorazine] nut - unspecified Allergy Anxiety Verified 12/27/22 16:37 haloperidol [From Haldol] AdvReac Agitated Verified 12/27/22 16:37 lithium AdvReac Hives Verified 12/27/22 16:37 lorazepam [From Ativan] AdvReac Agitated Verified 02/02/23 18:23 Assessment & Plan Assessment & Plan (1) Autism: Status: Suspected Code(s): F84.0 - Autistic disorder (2) PTSD (post-traumatic stress disorder): Status: Suspected Code(s): F43.10 - Post-traumatic stress disorder, unspecified (3) Intermittent explosive disorder: Status: Acute Code(s): F63.81 - Intermittent explosive disorder (4) CHARLES positive: Status: Acute Code(s): R76.8 - Other specified abnormal immunological findings in serum (5) Chronic restrictive lung disease: Status: Acute Code(s): J98.4 - Other disorders of lung (6) Peripheral edema: Status: Acute Code(s): R60.9 - Edema, unspecified (7) Amenorrhea: Status: Acute Code(s): N91.2 - Amenorrhea, unspecified Assessment and Plan: 02/02: no changes in psych meds. Give one time enema Plan HPI: Patient is a bright, kind 22-year-old female, well known to this service, with history of Autism, PTSD recently discharged from on 12/25/2022 (and recently dc'd from [facility] after 5 years) who re-presents 2 days later for resurgence of suicidal ideation, dissociative episode and having run out during therapy session, into the street trying to hit by traffic and then eloping again from crisis again trying to get hit by oncoming cars. This has happened after ever discharge since coming to [facility]. Patient reports that day she left she had the intrusive thought that I am gonna screw this up again which just built and built until it overwhelmed her. Patient says she tried very hard to resist self-harm but the constant intrusive thought was unr elenting. She reports that on the way into the therapist building she got triggered as setting and some other people around reminded her of [facility]; already being on edge, this launched her into a full-blown panic attack; she dissociated and ran into the street wanting to . Patient says s he just cannot seem to control. She also worries that she is unsafe living at her grandmother's, whom she loves dearly, because her grandmother is not able to sense when patient is starting to unravel and cannot preemptively help ground her and prevent dysregulated/dissociate of episode; patient says that sometimes she is able to alert her grandmother that she is headed this direction but many time she is not. Patient says she needs to live in a place with staff who were trained who can help divert her from such episodes. Passive SI remains but none active. Patient does not want to and wants to continue with treatment therapy. It is unclear if patient meets full criteria for OCD diagnosis however she has OCD like symptoms and will thus increase Prozac which has thus far been well tolerated. Hospital course: 12/30 stabilizing; continue current treatment plan 12/31 patient continues to stabilize; no change in medications at this time however will likely seek to reduce possibly Depakote her Zyprexa level; may increase Prozac for PTSD/OCD like symptoms 01/02 tough night, needing geodon prns; asked to change depakote to sprinkles and maybe lower dose since tired in daytime and pt may be stable at lower dose 01/03 will add short trial of Lasix 20mg BID for continued lower limb edema (Jamal stockings tried and ripped) 01/06/23- Continue current plan and regime 01/09 patient is significantly more depressed, hopeless and wishing she were . Situational stressors are significantly contributory including limited options for disposition and stressors on the unit; however patient is also reflecting on her life, her chronic symptoms and long history of living in institutions, creating a hopelessness that her things will get better. It is possible that changing Depakote formulation to DR could be contributory, however theoretically it is the same total daily dose. -patient has been in an institution more time the not since 6 years old and has spent the last 5 years in a [facility]; it was likely an unreasonable expectation that she would be able to immediately discharge and be successful in community. Rather acclimation will be a gradual process. At this time will increase Prozac to 60 mg to see if this can help. Currently patient is depressed and suicidal and in imminent risk of harm to self if discharged. 01/07 for patient a little bit improved, depression a little lower possibly due to increased Prozac 01/14 patient remains depressed but less so and she denies SI bilateral lower limb edema has decreased since getting her menses. Discussed disposition plans with dialysis social worker and reviewed possible options and concerns from both [facility]DS and [facility]; currently rec from DDS is for patient to undergo evaluation by Dr. Caputo; team agrees it will help to organize a joint meeting with both DDS in [facility] to clarify and discussed situation and options. 01/15 bilateral hand tremor; patient reports it is chronic and comes and goes but a little worse today 3.31 depressed; agrees to start lactulose -Talent Director called Lou Mitchell, supervising case sealer at [facility] and discussed tx; Lou explained potentially collaborative involvement with [facility] and that patient was accepted to [facility] and approved for virtual assessment. 01/19 to 01/20 multiple restraints over weekend 01/21 pt dysregulated over weekend; continues to seem more likely situational rather than due to past med changes; will consult w/ collegue for med suggest ions. Currently, pt continues to need structured environment 01/22 depression remains maybe we worsening some; continues to seem mostly situational as her situation is causing a sense of hopelessness, patient worried she will never improve enough to be off a unit. Will add clonazepam scheduled low-dose to see if it can help with afternoon/evening dysregulated behaviors. Dr. Elaine consulted who agrees to meet with patient; video games storywriter looks forward to Dr. Elaine as observations/recommendations. 01/24 continue current tx plan; reached out to ASD specialist regarding [facility] assessment; waiting for return call 01/28 Patient reports that her depression is not as significant as it was over the past few weeks; she finds it a little more possible to be hopeful. Patient asks for discharge saying she wants to go home but in discussion she agrees that she is currently not ready that the 13/05 availability of supportive staff is a significant part of patient remained stable. Discussed clonazepam and patient feels that it remains helpful, keeping her more calm. She wonders if this medication addition could be enough to allow her to go home to which video games storywriter agrees to consider. 01/29 continue current treatment plan; discussed case with Dr. Elaine and dialysis social worker regarding disposition and progress made with [facility]; discussed in detail progress made with [facility] who agrees to come and evaluate patient on the unit and and assess if patient is appropriate for community [facility]. This was discussed with patient who agrees to evaluation which will take place on the unit. 01/30 meeting w [facility]; changed clonazepam to prn 01/31 continue tx. 02/02 no med changes 02/03 no med changes, ativan already listed as an allergy 02/04no med changes PLAN: 1. ASD/PTSD/intermittent explosive disorder: clonazepam 0.5 b.i.d. prn for mild anxiety(does not feel she needs it schedule any more Continue to Depakote sprinkles DR 1200mg bId at 1400 and 2100 since dysregulated behaviors seem to mostly happen 2nd shift (roughly equiv to Depakote ER 2500 mg q.h.s ...) Continue Zyprexa 20 mg q.h.s. (may very well tolerate lower dose as overseen by outpatient provider) Increased Prozac to 60mg (increased during this admission) Continue Xanax 0.5 mg t.i.d. p.r.n. for AGITation; may give alone or with Geodon Continue Geodon 20 mg b.i.d. p.r.n. for agitation (*pt may get IM Geodon if requested for faster action) Continue Clonidine 0.1 mg t.i.d. Continue Trazodone 100 mg q.h.s. DC'd zyprexa 5mg in afternoon DC'd perphenazine (patient has no history of psychotic illness and very likely does not need this medication) Chronic conditions: 2. CHARLES positive appointment made with Rheumatology February 20 -daytime fatigue; b/l peripheral edema; mild dyspnea on exertion Discussed with Dr. Hamilton who recommends and following labs ordered: -Urine protein creatinine ratio -Rheumatoid factor -CCP antibody 3. Bilateral peripheral edema (lower/upper extrem):? Medication side effect (Zyprexa/Depakote)?? vs organic origin some reduction w/ lowering of medications Zyprexa and depakote r/u autoimune 4. Complaint of chronic struggles with inspiration: lungs CTA; CXR unremarkable Pulmonary function test: results reviewed, discussed with Dr. Melchor -elevated CHARLES and abnromal PFTs with a mild restriction with a mild diffusion impairment. -could be explained by her elevated BMI. -at this time dr. Melchor reports given lab work, at this time it does not look like she has lupus nor sjogrens nor scleroderma. Her cxr was good. needs a sleep study as an out pt (daytime drowsiness bringing up the possibility of obstructive sleep apnea) does not need an inpt ct scan but should f/up with outpt pulmonary and rheumatology. -in further discussion, Dr. Melchor agrees that CHARLES needs further evaluation, 5.hx of Amenorrhea: Patient did get her menses on 01/11 Patient did have menses a few years ago while on control; has not had it since control discontinued about 2 years ago Labs: mostly WNL; will f/u with PCP/surveyor hydrographic PSYCHIATRIC IMPRESSION/DIAGNOSIS:. Impression: Patient is a fun, intelligent, cooperative and friendly person. When she gets triggered by something she can decompensate severely, dissociate and become physically aggressive.? Patient is now diagnosed with ASD, PTSD, and intermittent explosive disorder.? From [facility], she carried the diagnosis of Schizoaffective disorder and mention of borderline personality disorder.? Both of these have been ruled out.? Patient has no present psychotic symptoms, denies any history of AVH or delusional thinking, and has no reported history anywhere that can be found of any psychotic symptoms (history includes video games storywriter having gone through numerous pages of notes from [facility] and other institutions).? She is linear, logical, articulate, insightful and organized in her thinking; she is organized in her behaviors.? Patient can have intrusive thoughts but only when triggered and this does not seem to be OCD.? She can have some rigid thinking in line with ASD.? Many of her dysregulated moments come from her PTSD being exacerbated.? Patient has well tolerated decrease of Zyprexa, decrease of Depakote and discontinuation of perphenazine. Primary dx: ASD. Patient's father and grandmother maintain that she met her milestones in childhood. 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 During childhood she attended [facility] in [place], treatment center typically for people with autism; in [place] when at [facility], she carried a dx of ASD.? As observed on the unit, Patient frequently rocks back and forth, when standing or sitting, while talking to others or calming herself down.? Patient does not have a sense of a person's personal space and will get much to close to a person when talking; she is redirectable and apologizes but she is unaware she is doing it and does not get verbal cues when conversation participant is backing away or trying to end a conversation; though redirectable, she will again get too close, again unaware.? In the milieu with peers, While she will sometimes spend time in the vicinity of others, she is mostly alongside people and not directly interacting with them.? That said, she will directly interact with staff. Intermittent Flapping arms; rocking Patient does make eye contact, however she stares the entire time she is enga ged. ? She can have a logical conversation Patient has a blunted affect and though she can smile and laugh, she is otherwise expressionless with blunted affect. Patient has in flexibility regarding food when it is not as expected patient can get severely dysregulated Patient has some hypo-reactivity to loud noises and crowds of people. Conversely, She does get jokes, even subtle ones. Symptoms have clearly made life functioning extremely difficult.? It is unclear if patient has had neuropsych testing. She did spend time at [facility]. Secondary dx: PTSD: Patient has a history of trauma from both childhood experiences, as well as trauma that occurred while on inpatient unit at [facility] and [place].? She has also been institutionalized since a young age, away from her mother and father, feeling abandoned. Possibly (likely?) reactive attachment disorder.? She has several regressed behaviors and some child-like interests. Regarding Dissociative Disorder:? Patient has episodes of depersonalization and derealization which the typically arise when triggered and during which time she will feel detached from herself, from her body and feel as if things are unreal and dream like, with out a sense of time; after they conclude and she is again in the present, she can be upset about some behaviors she engaged in during the dissociate period once made aware. Not BPD: Regarding past references to borderline personality disorder, Talent Director and team agree there have been no axis II traits expressed throughout her time in the hospital; none could be cleaned from records No psychotic illness: no psychotic symptoms past or present Reason for continued inpatient stay Substantial Risk for: rapid decompensation Time Spent With Patient Time: Total time managing care of this patient today ____ minutes.
[2023-02-04] MEDS: Divalproex Sodium Sprinkles 125 MG CAP.DR.SPR 1250 MG PO ×2 (15:16→22:44)
[2023-02-04] MEDS: Ziprasidone 20 MG CAPSULE PO (15:42)
[2023-02-04] MEDS: ALPRAZolam 0.5 MG TABLET PO (15:46)
[2023-02-04] MEDS: NaPROXEN 500 MG TABLET PO (16:17)
[2023-02-04] MEDS: OLANZapine 10 MG VIAL IM (17:58)
[2023-02-04] MEDS: diphenhydrAMINE HCL 50 MG/ML VIAL IM (17:58)
[2023-02-04 18:50] VITALS: BP 116/68; PULSE 98; TEMP 36.7; O2SAT 96
[2023-02-04] MEDS: Diphth,Pertus(ACell),Tet Adult 0.5 ML SYRINGE IM (22:10)
[2023-02-04] MEDS: diphenhydrAMINE HCL 25 MG CAPSULE 50 MG PO (22:50)
[2023-02-04] MEDS: traZODone HCL 100 MG TABLET PO (22:52)
[2023-02-04] MEDS: Famotidine 20 MG TABLET PO (22:53)
[2023-02-04] MEDS: OLANZapine 10 MG TABLET 20 MG PO (22:53)
[2023-02-04] MEDS: cloNIDine HCL 0.1 MG TABLET PO (22:54)
[2023-02-04] MEDS: Multivitamin TABLET 1 TAB PO (22:54)
--- NOTE | 2023-02-05 02:22 | PC.NURSE ---
At 1532 patient angrily walked down the hallway and pulled the Exit sign out of the ceiling. Patient had ignored staff's offer of help before pulling down the sign. Code Assist was called and Dr. Garcia was notified of the patient's behavior, Geodone 20 mg and Xanax 0.5 mg po was ordered and patient was willing to take the medications.
--- NOTE | 2023-02-05 02:36 | PC.NURSE ---
At 1707 02/04/23 patient was agitated and started striking herself in the face with her fists. Staff approached her to offer reassurance and help, but patient started swinging and kicking at staff. Security and Code Assist called to assist with restraining the patient in the restraint chair, which occurred at 1716. Dr. Garcia was notified of patient's current behavior and orders were received. At 1730 IM Zyprexa 20mg given in the right Deltoid and IM Benadryl 50 mg given in the left Deltoid. Patient started calming down by 1740 and began talking with staff. Right leg restraint removed at 1740, left leg restraint removed at 1745. The rest of the restraints were removed at 1750. Patient had allowed vital signs to be taken at 1725 and 1740 but refused any other vital sign assessment at 1750. Patient informed staff that she was more sleepy than hungry and returned to her room, in behavioral control, at 1750. Patient was seen by Dr. Ohara, post restraint and then by an ED doctor to evaluate a laceration to the anterior surface of her left hand. No stitches were needed per the ED doctor. A Tetanus booster was ordered and given to patient in the right Deltoid. Patient rested for a short time and then calmly returned to the kitchen and engaged with other patients. No further issues the rest of the shift.
--- NOTE | 2023-02-05 10:01 | P.PNPSI_ITS ---
Subjective Subjective Date of Service: 02/05/23 Reason For Visit: Mood Dysregulation Interim History: Met with patient; discussed with team; reviewed weekend progress notes Discussed weekend, last night and restraint. Patient shared the contributing factors to leading her to become dysregulated. She also shared how she held it really well initially, getting herself to come down however eventually became overwhelming. Patient described how her overwhelming feelings grow and grow and grow until she can no longer cope and explodes. She also explained how she will get a thought in her mind such as nothing will stop her overwhelming feelings other than explosive behavior; she becomes, unable to distract herself from this thought which contributes to triggered explosion. Patient asked if this was part of autism. Discussed treatment plan with patient and staff; all included agree that staff change of shift in the afternoon is troublesome for patient and will thus try to provide a distracting activity for her at this time; also patient gets very anxious about who will be her nurse and contact lens curve grinder and feels that it might lower her anxiety to know this ahead of time, during day shift; acute care nursing assistant agrees with this plan. Confirmed the patient to get tetanus shot; ED physicians all patient and determine no stitches needed. Mental Status Exam Mental Status Exam Narrative: Pt is alert and oriented; behavior is cooperative, calm; dressed in casual a ttire, mood is described as okay and affect congruent, little brighter; eye contact appropriate; Speech is regular rate, volume, prosody; some psychomotor retardation present; intermittent psychomotor retardation; thought process is organized and goal directed; Thought content is on trying to feel hopeful, treatment; otherwise pertinent to relevant topics and without any delusional content, paranoid ideations or grandiosity; no SI; no HI. No AVH and there is no evidence of perceptual disturbance.. Patients insight and judgment are fair and at baseline Diagnostics Vital Signs (24Hr): Vital Signs - 24 hr 02/04/23 11:47 02/04/23 18:50 Temperature 97.5 F 98.0 F Pulse Rate 85 98 Respiratory Rate 18 Blood Pressure 124/64 116/68 Pulse Oximetry 95 96 Oxygen Delivery Method Room Air Room Air BMI result Body Mass Index 38.1 Labs 12/27/22 20:00 12/27/22 19:59 Imaging Radiology Impressions: ITS Impressions Hand X-Ray 01/18/23 23:35 IMPRESSION: No acute fracture or dislocation of either hand. Hand X-Ray 01/18/23 23:35 IMPRESSION: No acute fracture or dislocation of either hand. Forearm X-Ray 02/04/23 21:57 IMPRESSION: Normal left forearm. Normal left wrist with scaphoid views. Wrist X-Ray 02/04/23 21:57 IMPRESSION: Normal left forearm. Normal left wrist with scaphoid views. Medications Medications Current Medications Acetaminophen (Acetaminophen 325 Mg Tablet) 650 mg PO Q6H PRN PRN Reason: Headache/Pain Mild Scale (1-3) Last Admin: 01/28/23 22:23 Dose: 650 mg Al Hydroxide/Mg Hydroxide (Magnesium Hydrox/Alum Hydrox 30 Ml Oral.Susp) 30 ml PO Q6H PRN PRN Reason: Heartburn/Nausea Last Admin: 12/31/22 08:29 Dose: 30 ml Alprazolam (Alprazolam 0.5 Mg Tablet) 0.5 mg PO TID PRN PRN Reason: agitation Last Admin: 02/04/23 15:46 Dose: 0.5 mg Artificial Tears (Artificial Tears 15 Ml Drops) 2 drop EYE-BOTH Q4H PRN PRN Reason: Dry Eyes Last Admin: 02/01/23 21:13 Dose: 2 drop Clonazepam (Clonazepam 0.5 Mg Tablet) 0.5 mg PO BID PRN PRN Reason: mild anxiety Last Admin: 02/01/23 04:53 Dose: 0.5 mg Clonidine HCl (Clonidine Hcl 0.1 Mg Tablet) 0.1 mg PO BID@1400,2100 [facility]; Protocol Last Admin: 02/04/23 22:54 Dose: 0.1 mg Diphenhydramine HCl (Diphenhydramine Hcl 25 Mg Capsule) 50 mg PO BEDTIME [facility] Last Admin: 02/04/23 22:50 Dose: 50 mg Divalproex Sodium (Divalproex Sodium Sprinkles 125 Mg ) 1,250 mg PO BID@1400,2100 [facility] Last Admin: 02/04/23 22:44 Dose: 1,250 mg Famotidine (Famotidine 20 Mg Tablet) 20 mg PO BEDTIME [facility] Last Admin: 02/04/23 22:53 Dose: 20 mg Famotidine (Famotidine 20 Mg Tablet) 20 mg PO DAILY PRN PRN Reason: GERD Fluoxetine HCl (Fluoxetine Hcl 20 Mg Capsule) 60 mg PO DAILY [facility] Last Admin: 02/04/23 11:51 Dose: 60 mg Furosemide (Furosemide 20 Mg Tablet) 20 mg PO BID@0900,1700 [facility]; Protocol Last Admin: 02/04/23 17:07 Dose: Not Given Lactulose (Lactulose 20 Gm/30 Ml Solution) 20 gm PO DAILY [facility] Last Admin: 02/04/23 11:52 Dose: Not Given Loratadine (Loratadine 10 Mg Tablet) 10 mg PO DAILY [facility] Last Admin: 02/04/23 11:51 Dose: 10 mg Melatonin (Melatonin 3 Mg Tablet) 3 mg PO BEDTIME PRN PRN Reason: insomnia Last Admin: 02/03/23 22:43 Dose: 3 mg Multivitamins/Vitamin C (Multivitamin Tablet) 1 tab PO BEDTIME [facility] Last Admin: 02/04/23 22:54 Dose: 1 tab Naproxen (Naproxen 500 Mg Tablet) 500 mg PO Q12H PRN PRN Reason: mild pain Last Admin: 02/04/23 16:17 Dose: 500 mg Olanzapine (Olanzapine 10 Mg Tablet) 20 mg PO BEDTIME [facility] Last Admin: 02/04/23 22:53 Dose: 20 mg Senna/Docusate Sodium (Sennosides/Docusate Sodium Tablet) 2 tab PO BID [facility] Last Admin: 02/04/23 22:53 Dose: 2 tab Sodium Biphosphate/Sodium Phosphate (Sodium Phosphate,Emmet-Dibasic 133 Ml Enema) [address] ONCE [facility] Last Admin: 01/28/23 20:46 Dose: 133 ml Sodium Biphosphate/Sodium Phosphate (Sodium Phosphate,Emmet-Dibasic 133 Ml Enema) [address] DAILY PRN PRN Reason: Constipation Last Admin: 02/02/23 18:37 Dose: 133 ml Sodium Chloride (Sodium Chloride 0.65 % Nasal 44 Ml Sprbtl) 1 spray NOSTRIL-B Q2H PRN PRN Reason: dry nares Last Admin: 02/01/23 21:13 Dose: 1 spray Trazodone HCl (Trazodone Hcl 50 Mg Tablet) 50 mg PO BEDTIME PRN PRN Reason: insomnia Last Admin: 01/26/23 20:42 Dose: 50 mg Trazodone HCl (Trazodone Hcl 100 Mg Tablet) 100 mg PO BEDTIME [facility] Last Admin: 02/04/23 22:52 Dose: 100 mg Ziprasidone (Ziprasidone 20 Mg Capsule) 20 mg PO BID PRN PRN Reason: Agitation Last Admin: 02/04/23 15:42 Dose: 20 mg Allergies Allergies Allergy/AdvReac Type Severity Reaction Status Date / Time chlorpromazine Allergy Anaphylaxis Verified 12/27/22 16:37 [From Thorazine] nut - unspecified Allergy Anxiety Verified 12/27/22 16:37 haloperidol [From Haldol] AdvReac Agitated Verified 12/27/22 16:37 lithium AdvReac Hives Verified 12/27/22 16:37 lorazepam [From Ativan] AdvReac Agitated Verified 02/02/23 18:23 Assessment & Plan Assessment & Plan (1) Autism: Status: Suspected Code(s): F84.0 - Autistic disorder (2) PTSD (post-traumatic stress disorder): Status: Suspected Code(s): F43.10 - Post-traumatic stress disorder, unspecified (3) Intermittent explosive disorder: Status: Acute Code(s): F63.81 - Intermittent explosive disorder (4) CHARLES positive: Status: Acute Code(s): R76.8 - Other specified abnormal immunological findings in serum (5) Chronic restrictive lung disease: Status: Acute Code(s): J98.4 - Other disorders of lung (6) Peripheral edema: Status: Acute Code(s): R60.9 - Edema, unspecified (7) Amenorrhea: Status: Acute Code(s): N91.2 - Amenorrhea, unspecified Assessment and Plan: 02/02: no changes in psych meds. Give one time enema Plan HPI: Patient is a bright, kind 22-year-old female, well known to this service, with history of Autism, PTSD recently discharged from on 12/25/2022 (and recently dc'd from [facility] after 5 years) who re-presents 2 days later for resurgence of suicidal ideation, dissociative episode and having run out during therapy session, into the street trying to hit by traffic and then el oping again from crisis again trying to get hit by oncoming cars. This has happened after ever discharge since coming to [facility]. Patient reports that day she left she had the intrusive thought that I am gonna screw this up again which just built and built until it overwhelmed her. Patient says she tried very hard to resist self-harm but the constant intrusive thought was unrelenting. She reports that on the way into the therapist building she got triggered as setting and some other people around [facility]; already being on edge, this launched her into a full-blown panic attack; she dissociated and ran into the street wanting to . Patient says she just cannot seem to control. She also worries that she is unsafe living at her grandmother's, whom she loves dearly, because her grandmother is not able to sense when patient is starting to unravel and cannot preemptively help ground her and prevent dysregulated/dissociate of episode; patient says that sometimes she is able to alert her grandmother that she is headed this direction but many time she is not. Patient says she needs to live in a place with staff who were trained who can help divert her from such episodes. Passive SI remains but none active. Patient does not want to and wants to continue with treatment therapy. It is unclear if patient meets full criteria for OCD diagnosis however she has OCD like symptoms and will thus increase Prozac which has thus far been well tolerated. Hospital course: 12/30 stabilizing; continue current treatment plan 12/31 patient continues to stabilize; no change in medications at this time however will likely seek to reduce possibly Depakote her Zyprexa level; may increase Prozac for PTSD/OCD like symptoms 01/02 tough night, needing geodon prns; asked to change depakote to sprinkles and maybe lower dose since tired in daytime and pt may be stable at lower dose 01/03 will add short trial of Lasix 20mg BID for continued lower limb edema (Jamal stockings tried and ripped) 01/06/23- Continue current plan and regime 01/09 patient is significantly more depressed, hopeless and wishing she were . Situational stressors are significantly contributory including limited options for disposition and stressors on the unit; however patient is also reflecting on her life, her chronic symptoms and long history of living in institutions, creating a hopelessness that her things will get better. It is possible that changing Depakote formulation to DR could be contributory, however theoretically it is the same total daily dose. -patient has been in an institution more time the not since 6 years old and has spent the last 5 years in a [facility]; it was likely an unreasonable expectation that she would be able to immediately discharge and be successful in community. Rather acclimation will be a gradual process. At this time will increase Prozac to 60 mg to see if this can help. Currently patient is depressed and suicidal and in imminent risk of harm to self if discharged. 01/07 for patient a little bit improved, depression a little lower possibly due to increased Prozac 01/14 patient remains depressed but less so and she denies SI bilateral lower limb edema has decreased since getting her menses. Discussed disposition plans with social service director and reviewed possible options and concerns from both [facility] and [facility]; currently rec from S is for patient to undergo evaluation by Dr. Annette davidson; team agrees it will help to organize a joint meeting with both [facility] in [facility] to clarify and discussed situation and options. 01/15 bilateral hand tremor; patient reports it is chronic and comes and goes but a little worse today 3.31 depressed; agrees to start lactulose -Firefighter called Lou Mitchell, supervising case resource manager at [facility] and discussed tx; Lou explained potentially collaborative involvement with [facility] and that patient was accepted to [facility] and approved for virtual assessment. 01/19 to 01/20 multiple restraints over weekend 01/21 pt dysregulated over weekend; continues to seem more likely situational rather than due to past med changes; will consult w/ collegue for med suggestions. Currently, pt continues to need structured environment 01/22 depression remains maybe we worsening some; continues to seem mostly situational as her situation is causing a sense of hopelessness, patient worried she will never improve enough to be off a unit. Will add clonazepam scheduled low-dose to see if it can help with afternoon/evening dysregulated behaviors. Dr. Elaine consulted who agrees to meet with patient; group underwriter looks forward to Dr. Elaine as observations/recommendations. 01/24 continue current tx plan; reached out to ASD specialist regarding [facility] assessment; waiting for return call 01/28 Patient reports that her depression is not as significant as it was over the past few weeks; she finds it a little more possible to be hopeful. Patient asks for discharge saying she wants to go home but in discussion she agrees that she is currently not ready that the 24/7 availability of supportive staff is a significant part of patient remained stable. Discussed clonazepam and patient feels that it remains helpful, keeping her more calm. She wonders if this medication addition could be enough to allow her to go home to which group underwriter agrees to consider. 01/29 continue current treatment plan; discussed case with Dr. Elaine and social service director regarding disposition and progress made with [facility]; discussed in detail progress made with [facility] who agrees to come and evaluate patient on the unit and and assess if patient is appropriate for community [facility]. This was discussed with patient who agrees to evaluation which will take place on the unit. 01/30 meeting w [facility]; changed clonazepam to prn 01/31 continue tx. 02/02 no med changes 02/03 no med changes, ativan already listed as an allergy 02/04no med changes 02/05 discussed treatment plan which will involve giving patient knowledge of who her nurse and contact lens curve grinder will be prior to change of shift; will try to engage in distracting activity before and during change of shift. PLAN: 1. ASD/PTSD/intermittent explosive disorder: clonazepam 0.5 b.i.d. prn for mild anxiety(does not feel she needs it schedule any more Continue to Depakote sprinkles DR 1200mg bId at 1400 and 2100 since dysregulated behaviors seem to mostly happen 2nd shift (roughly equiv to Depakote ER 2500 mg q.h.s ...) Continue Zyprexa 20 mg q.h.s. (may very well tolerate lower dose as overseen by outpatient provider) Increased Prozac to 60mg (increased during this admission) Continue Xanax 0.5 mg t.i.d. p.r.n. for AGITation; may give alone or with Geodon Continue Geodon 20 mg b.i.d. p.r.n. for agitation (*pt may get IM Geodon if requested for faster action) Continue Clonidine 0.1 mg t.i.d. Continue Trazodone 100 mg q.h.s. DC'd zyprexa 5mg in afternoon DC'd perphenazine (patient has no history of psychotic illness and very likely does not need this medication) Chronic conditions: 2. CHARLES positive appointment made with Rheumatology February 20 -daytime fatigue; b/l peripheral edema; mild dyspnea on exertion Discussed with Dr. Hamilton who recommends and following labs ordered: -Urine protein creatinine ratio -Rheumatoid factor -CCP antibody 3. Bilateral peripheral edema (lower/upper extrem):? Medication side effect (Zyprexa/Depakote)?? vs organic origin some reduction w/ lowering of medications Zyprexa and depakote r/u autoimune 4. Complaint of chronic struggles with inspiration: lungs CTA; CXR unremarkable Pulmonary function test: results reviewed, discussed with Dr. Melchor -elevated CHARLES and abnromal PFTs with a mild restriction with a mild diffusion impairment. -could be explained by her elevated BMI. -at this time dr. Melchor reports given lab work, at this time it does not look like she has lupus nor sjogrens nor scleroderma. Her cxr was good. needs a sleep study as an out pt (daytime drowsiness bringing up the possibility of obstructive sleep apnea) does not need an inpt ct scan but should f/up with outpt pulmonary and rheumatology. -in further discussion, Dr. Melchor agrees that CHARLES needs further evaluation, 5.hx of Amenorrhea: Patient did get her menses on 01/11 Patient did have menses a few years ago while on control; has not had it since control discontinued about 2 years ago Labs: mostly WNL; will f/u with PCP/gynaecological oncologist PSYCHIATRIC IMPRESSION/DIAGNOSIS:. Impression: Patient is a fun, intelligent, cooperative and friendly person. When she gets triggered by something she can decompensate severely, dissociate and become physically aggressive.? Patient is now diagnosed with ASD, PTSD, and intermittent explosive disorder.? From [facility], she carried the diagnosis of Schizoaffective disorder and mention of borderline personality disorder.? Both of these have been ruled out.? Patient has no present psychotic symptoms, denies any history of AVH or delusional thinking, and has no reported history anywhere that can be found of any psychotic symptoms (history includes group underwriter having gone through numerous pages of notes from [facility] and other institutions).? She is linear, logical, articulate, insightful and organized in her thinking; she is organized in her behaviors.? Patient can have intrusive thoughts but only when triggered and this does not seem to be OCD.? She can have some rigid thinking in line with ASD.? Many of her dysregulated moments come from her PTSD being exacerbated.? Patient has well tolerated decrease of Zyprexa, decrease of Depakote and discontinuation of perphenazine. Primary dx: ASD. Patient's father and grandmother maintain that she met her milestones in childhood. 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 During childhood she [place] [facility] [place] treatment center typically for people with autism; in [place] when at [facility], she carried a dx of ASD.? As observed on the unit, Patient frequently rocks back and forth, when standing or sitting, while talking to others or calming herself down.? Patient does not have a sense of a person's personal space and will get much to close to a person when talking; she is redirectable and apologizes but she is unaware she is doing it and does not get verbal cues when conversation participant is backing away or trying to end a conversation; though redirectable, she will again get too close, again unaware.? In the milieu with peers, While she will sometimes spend time in the vicinity of others, she is mostly alongside people and not directly interacting with them.? That said, she will directly interact with staff. Intermittent Flapping arms; rocking Patient does make eye contact, however she stares the entire time she is engaged. ? She can have a logical conversation Patient has a blunted affect and though she can smile and laugh, she is otherwise expressionless with blunted affect. Patient has in flexibility regarding food when it is not as expected patient can get severely dysregulated Patient has some hypo-reactivity to loud noises and crowds of people. Conversely, She does get jokes, even subtle ones. Symptoms have clearly made life functioning extremely difficult.? It is unclear if patient has had neuropsych testing. She did spend time at [facility]. Secondary dx: PTSD: Patient has a history of trauma from both childhood experiences, as well as trauma that occurred while on inpatient unit at [facility] and [place].? She has also been institutionalized since a young age, away from her mother and father, feeling abandoned. Possibly (likely?) reactive attachment disorder.? She has several regressed behaviors and some child-like interests. Regarding Dissociative Disorder:? Patient has episodes of depersonalization and derealization which the typically arise when triggered and during which time she will feel detached from herself, from her body and feel as if things are unreal and dream like, with out a sense of time; after they conclude and she is again in the present, she can be upset about some behaviors she engaged in during the dissociate period once made aware. Not BPD: Regarding past references to borderline personality disorder, Firefighter and team agree there have been no axis II traits expressed throughout her time in the hospital; none could be cleaned from records No psychotic illness: no psychotic symptoms past or present Patient educated on: diagnosis and medication risk/benefits Informed Consent: understands Reason for continued inpatient stay Substantial Risk for: inability to function Time Spent With Patient Time: Total time managing care of this patient today ____ minutes.
[2023-02-05 12:45] VITALS: BP 120/77; PULSE 84; RESP 18; TEMP 36.4; O2SAT 98
[2023-02-05] MEDS: FLUoxetine HCl 20 MG CAPSULE 60 MG PO (12:57)
[2023-02-05] MEDS: Loratadine 10 MG TABLET PO (12:57)
[2023-02-05] MEDS: Furosemide 20 MG TABLET PO (12:58)
[2023-02-05] MEDS: Sennosides/Docusate Sodium TABLET 2 TAB PO ×2 (12:58→21:34)
[2023-02-05] MEDS: cloNIDine HCL 0.1 MG TABLET PO ×2 (14:50→21:33)
[2023-02-05] MEDS: Divalproex Sodium Sprinkles 125 MG CAP.DR.SPR 1250 MG PO ×2 (14:50→21:34)
[2023-02-05] MEDS: ALPRAZolam 0.5 MG TABLET PO (15:01)
[2023-02-05 18:00] VITALS: BP 97/60; PULSE 93; TEMP 36.6; O2SAT 96
--- NOTE | 2023-02-05 19:58 | PC.NURSE ---
pt was not given her Lasix because she was punching zamora and screaming. pt was redirected by staff and was able to calm down alone.
[2023-02-05] MEDS: diphenhydrAMINE HCL 25 MG CAPSULE 50 MG PO (21:33)
[2023-02-05] MEDS: Multivitamin TABLET 1 TAB PO (21:33)
[2023-02-05] MEDS: traZODone HCL 100 MG TABLET PO (21:34)
[2023-02-05] MEDS: OLANZapine 10 MG TABLET 20 MG PO (21:34)
[2023-02-05] MEDS: Famotidine 20 MG TABLET PO (21:34)
[2023-02-05] MEDS: Melatonin 3 MG TABLET PO (23:07)
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
[2023-02-06] MEDS: Sennosides/Docusate Sodium TABLET 2 TAB PO ×2 (13:23→21:15)
[2023-02-06] MEDS: FLUoxetine HCl 20 MG CAPSULE 60 MG PO (13:23)
[2023-02-06] MEDS: Loratadine 10 MG TABLET PO (13:24)
[2023-02-06] MEDS: cloNIDine HCL 0.1 MG TABLET PO ×2 (13:24→21:16)
[2023-02-06] MEDS: Furosemide 20 MG TABLET PO (13:24)
[2023-02-06] MEDS: Ziprasidone Mesylate 20 MG VIAL IM (14:05)
[2023-02-06] MEDS: ALPRAZolam 0.5 MG TABLET PO (14:13)
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
[2023-02-06] MEDS: Divalproex Sodium Sprinkles 125 MG CAP.DR.SPR 1250 MG PO (21:06)
[2023-02-06 21:15] VITALS: BP 105/65; PULSE 88; TEMP 36.1; O2SAT 97
[2023-02-06] MEDS: diphenhydrAMINE HCL 25 MG CAPSULE 50 MG PO (21:15)
[2023-02-06] MEDS: OLANZapine 10 MG TABLET 20 MG PO (21:16)
[2023-02-06] MEDS: traZODone HCL 100 MG TABLET PO (21:16)
[2023-02-06] MEDS: Famotidine 20 MG TABLET PO (21:16)
[2023-02-06] MEDS: Multivitamin TABLET 1 TAB PO (21:16)
[2023-02-06] MEDS: Melatonin 3 MG TABLET PO (23:22)
--- NOTE | 2023-02-07 01:31 | PC.NURSE ---
Patient, her roommate and this writer editor spoke together about possible future goals. Patient mentioned that she would like to be a model or ceo na. She also mentioned that she was dreading the day that her Alison dies. She spoke about being glad that her father is still alive so he can give me away to my , when I get . Patient also was overheard talking with another female patient about her own self-esteem and how the really cute guys always want the skinny girls. She appeared receptive when the other patient complimented her on being such a good listener.
[2023-02-07 07:00] VITALS: BMI 38.3
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
[2023-02-07 09:08] VITALS: BP 104/65; PULSE 69; RESP 16; TEMP 36.6; O2SAT 95
[2023-02-07] MEDS: FLUoxetine HCl 20 MG CAPSULE 60 MG PO (09:10)
[2023-02-07] MEDS: Loratadine 10 MG TABLET PO (09:11)
[2023-02-07] MEDS: Sennosides/Docusate Sodium TABLET 2 TAB PO ×2 (09:11→20:09)
[2023-02-07] MEDS: Furosemide 20 MG TABLET PO ×2 (09:11→18:06)
[2023-02-07] MEDS: Ibuprofen 600 MG TABLET PO (11:27)
[2023-02-07 11:37] VITALS: BP 114/58; PULSE 100; RESP 16; TEMP 36.6; O2SAT 96
[2023-02-07] MEDS: Fluticasone Propionate Nasal 16 GM SPRAY 1 SPRAY NOSTRIL-B (11:50)
--- NOTE | 2023-02-07 12:43 | PC.NURSE ---
pt reports stuffy nose and pressure in head. fluticasone and ibuprofen administered w/ good effect per pt report. MD avalos
[2023-02-07] MEDS: ALPRAZolam 0.5 MG TABLET PO (14:32)
[2023-02-07] MEDS: Divalproex Sodium Sprinkles 125 MG CAP.DR.SPR 1250 MG PO ×2 (14:36→20:09)
[2023-02-07] MEDS: cloNIDine HCL 0.1 MG TABLET PO ×2 (14:36→20:13)
[2023-02-07] MEDS: Ziprasidone Mesylate 20 MG VIAL IM (14:46)
[2023-02-07 15:07] LABS: Influenza A PCR NEGATIVE (Negative); Influenza B PCR NEGATIVE (Negative); Resp Syncy Virus RNA Qual PCR NEGATIVE (Negative); SARS COV2 PCR INHOUSE NEGATIVE (Negative)
[2023-02-07 18:00] VITALS: BP 113/56; PULSE 85; TEMP 36.3
[2023-02-07] MEDS: diphenhydrAMINE HCL 25 MG CAPSULE 75 MG PO (20:11)
[2023-02-07] MEDS: OLANZapine 10 MG TABLET 20 MG PO (20:12)
[2023-02-07] MEDS: Melatonin 3 MG TABLET PO (20:12)
[2023-02-07] MEDS: Multivitamin TABLET 1 TAB PO (20:12)
[2023-02-07] MEDS: traZODone HCL 100 MG TABLET PO (20:13)
[2023-02-07] MEDS: Famotidine 20 MG TABLET PO (20:14)
[2023-02-07 20:43] VITALS: BP 102/54; PULSE 82; TEMP 36.7
[2023-02-08 06:00] VITALS: BP 113/50; PULSE 99; RESP 14; TEMP 36.6
[2023-02-08] MEDS: Sennosides/Docusate Sodium TABLET 2 TAB PO ×2 (09:22→22:34)
[2023-02-08] MEDS: FLUoxetine HCl 20 MG CAPSULE 60 MG PO (09:22)
[2023-02-08] MEDS: Furosemide 20 MG TABLET PO ×2 (09:24→15:59)
[2023-02-08] MEDS: Loratadine 10 MG TABLET PO (09:25)
[2023-02-08] MEDS: Ziprasidone Mesylate 20 MG VIAL IM (10:00)
[2023-02-08] MEDS: diphenhydrAMINE HCL 50 MG/ML VIAL IM (10:10)
[2023-02-08 11:59] LABS: IDNOW Serial# 08D9AD1C; Strep A Nucleic Acid Negative (Negative)
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
[2023-02-08] MEDS: clonazePAM 0.5 MG TABLET PO (13:51)
[2023-02-08] MEDS: Divalproex Sodium Sprinkles 125 MG CAP.DR.SPR 1250 MG PO ×2 (13:51→22:32)
[2023-02-08] MEDS: cloNIDine HCL 0.1 MG TABLET PO ×2 (13:51→22:33)
[2023-02-08] MEDS: Throat Lozenge, Medicated LOZENGE 1 LOZENGE MUCOUS MEM (13:51)
[2023-02-08 15:54] VITALS: BP 103/53; PULSE 91; TEMP 36.4
[2023-02-08] MEDS: Doxycycline Monohydrate 100 MG CAPSULE PO ×2 (16:52→22:33)
--- NOTE | 2023-02-08 17:59 | P.PNPSI_ITS ---
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 reactive attachment disorder.? She has several regressed behaviors and some child-like interests. Regarding Dissociative Disorder:? Patient has episodes of depersonalization and derealization which the typically arise when triggered and during which time she will feel detached from herself, from her body and feel as if things are unreal and dream like, with out a sense of time; after they conclude and she is again in the present, she can be upset about some behaviors she engaged in during the dissociate period once made aware. Not BPD: Regarding past references to borderline personality disorder, Platform Man and team agree there have been no axis II traits expressed throughout her time in the hospital; none could be cleaned from records No psychotic illness: no psychotic symptoms past or present Patient educated on: diagnosis, medication risk/benefits and therapeutic strategies Informed Consent: understands Reason for continued inpatient stay Substantial Risk for: inability to function Time Spent With Patient Time: Total time managing care of this patient today ____ minutes.
[2023-02-08] MEDS: OLANZapine 10 MG TABLET 20 MG PO (22:33)
[2023-02-08] MEDS: Melatonin 3 MG TABLET PO (22:34)
[2023-02-08] MEDS: Multivitamin TABLET 1 TAB PO (22:34)
[2023-02-08] MEDS: diphenhydrAMINE HCL 25 MG CAPSULE 75 MG PO (22:34)
[2023-02-08] MEDS: traZODone HCL 100 MG TABLET PO (22:35)
[2023-02-08] MEDS: Famotidine 20 MG TABLET PO (22:35)
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
[2023-02-09] MEDS: Fluticasone Propionate Nasal 16 GM SPRAY 1 SPRAY NOSTRIL-B (12:26)
[2023-02-09] MEDS: FLUoxetine HCl 20 MG CAPSULE 60 MG PO (12:58)
[2023-02-09] MEDS: Doxycycline Monohydrate 100 MG CAPSULE PO ×2 (12:59→19:36)
[2023-02-09] MEDS: Loratadine 10 MG TABLET PO (12:59)
[2023-02-09] MEDS: Sennosides/Docusate Sodium TABLET 2 TAB PO ×2 (12:59→19:35)
[2023-02-09] MEDS: clonazePAM 0.5 MG TABLET PO (13:00)
[2023-02-09] MEDS: Divalproex Sodium Sprinkles 125 MG CAP.DR.SPR 1250 MG PO ×2 (13:00→19:35)
[2023-02-09] MEDS: Furosemide 20 MG TABLET PO ×2 (13:05→17:38)
[2023-02-09] MEDS: cloNIDine HCL 0.1 MG TABLET PO ×2 (13:05→19:35)
[2023-02-09 13:11] VITALS: BP 126/69; PULSE 84; RESP 16; TEMP 36.6; O2SAT 98
[2023-02-09] MEDS: Ziprasidone 20 MG CAPSULE PO (17:38)
[2023-02-09] MEDS: traZODone HCL 100 MG TABLET PO (19:35)
[2023-02-09] MEDS: Famotidine 20 MG TABLET PO (19:35)
[2023-02-09] MEDS: OLANZapine 10 MG TABLET 20 MG PO (19:36)
[2023-02-09] MEDS: Multivitamin TABLET 1 TAB PO (19:36)
[2023-02-09] MEDS: diphenhydrAMINE HCL 25 MG CAPSULE 75 MG PO (19:36)
[2023-02-09] MEDS: Melatonin 3 MG TABLET PO (19:37)
[2023-02-09 21:21] VITALS: BP 109/55; PULSE 99; RESP 16; TEMP 37.2; O2SAT 96
[2023-02-09] MEDS: OLANZapine 10 MG VIAL IM (22:19)
[2023-02-09] MEDS: diphenhydrAMINE HCL 50 MG/ML VIAL IM (22:20)
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
--- NOTE | 2023-02-10 | ECG_ITS ---
Test Reason : QT prologation Blood Pressure : / mmHG Vent. Rate : 090 BPM Atrial Rate : 090 BPM P-R Int : 148 ms QRS Dur : 082 ms QT Int : 400 ms P-R-T Axes : 051 073 053 degrees QTc Int : 489 ms Normal sinus rhythm Possible Left atrial enlargement Prolonged QT Abnormal ECG When compared to the previous EKG of No significant changes seen Referred By: Frankie Hyde Electronically Signed By:David Rutherford
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
[2023-02-10] MEDS: Fluticasone Propionate Nasal 16 GM SPRAY 1 SPRAY NOSTRIL-B (12:27)
[2023-02-10] MEDS: Loratadine 10 MG TABLET PO (13:01)
[2023-02-10] MEDS: Sennosides/Docusate Sodium TABLET 2 TAB PO ×2 (13:02→20:11)
[2023-02-10] MEDS: cloNIDine HCL 0.1 MG TABLET PO ×2 (13:02→20:11)
[2023-02-10] MEDS: Doxycycline Monohydrate 100 MG CAPSULE PO ×2 (13:02→20:12)
[2023-02-10] MEDS: clonazePAM 0.5 MG TABLET PO (13:02)
[2023-02-10] MEDS: Divalproex Sodium Sprinkles 125 MG CAP.DR.SPR 1250 MG PO ×2 (13:02→20:10)
[2023-02-10] MEDS: FLUoxetine HCl 20 MG CAPSULE 60 MG PO (13:02)
[2023-02-10 13:09] VITALS: BP 120/72; PULSE 97; RESP 18; TEMP 36.6; O2SAT 97
[2023-02-10] MEDS: QUEtiapine Fumarate 50 MG TABLET 150 MG PO (15:00)
[2023-02-10] MEDS: Furosemide 20 MG TABLET PO (16:19)
[2023-02-10] MEDS: NaPROXEN 500 MG TABLET PO (16:52)
[2023-02-10] MEDS: Ziprasidone 20 MG CAPSULE PO (17:34)
[2023-02-10 18:00] VITALS: BP 122/79; PULSE 98; RESP 18; TEMP 36.6; O2SAT 98
[2023-02-10] MEDS: traZODone HCL 100 MG TABLET PO (20:11)
[2023-02-10] MEDS: Melatonin 3 MG TABLET PO (20:11)
[2023-02-10] MEDS: Famotidine 20 MG TABLET PO (20:12)
[2023-02-10] MEDS: OLANZapine 10 MG TABLET 20 MG PO (20:12)
[2023-02-10] MEDS: Multivitamin TABLET 1 TAB PO (20:12)
[2023-02-10] MEDS: diphenhydrAMINE HCL 25 MG CAPSULE 75 MG PO (20:12)
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
[2023-02-10] MEDS: traZODone HCL 50 MG TABLET PO (23:09)
--- NOTE | 2023-02-11 09:07 | HO.PSYCHPN ---
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 have clearly made life functioning extremely difficult.? It is unclear if patient has had neuropsych testing. She did spend time at [facility]. Secondary dx: PTSD: Patient has a history of trauma from both childhood experiences, as well as trauma that occurred while on inpatient unit at this [facility] and [place].? She has also been institutionalized since a young age, away from her mother and father, feeling abandoned. Possibly (likely?) reactive attachment disorder.? She has several regressed behaviors and some child-like interests. Regarding Dissociative Disorder:? Patient has episodes of depersonalization and derealization which the typically arise when triggered and during which time she will feel detached from herself, from her body and feel as if things are unreal and dream like, with out a sense of time; after they conclude and she is again in the present, she can be upset about some behaviors she engaged in during the dissociate period once made aware. Not BPD: Regarding past references to borderline personality disorder, Psychological Operations and team agree there have been no axis II traits expressed throughout her time in the hospital; none could be cleaned from records No psychotic illness: no psychotic symptoms past or present Patient educated on: diagnosis and medication risk/benefits Informed Consent: understands Reason for continued inpatient stay Substantial Risk for: inability to function Time Spent With Patient Time: Total time managing care of this patient today ____ minutes.
[2023-02-11 10:55] VITALS: BP 113/61; PULSE 78; RESP 16; TEMP 36.8; O2SAT 98
[2023-02-11] MEDS: Loratadine 10 MG TABLET PO (10:57)
[2023-02-11] MEDS: Sennosides/Docusate Sodium TABLET 2 TAB PO ×2 (10:57→23:40)
[2023-02-11] MEDS: OLANZapine 5 MG TABLET PO ×2 (10:58→13:28)
[2023-02-11] MEDS: Doxycycline Monohydrate 100 MG CAPSULE PO ×2 (10:58→23:27)
[2023-02-11] MEDS: Furosemide 20 MG TABLET PO (10:58)
[2023-02-11] MEDS: clonazePAM 0.5 MG TABLET PO ×3 (10:58→23:26)
[2023-02-11] MEDS: FLUoxetine HCl 20 MG CAPSULE 60 MG PO (10:58)
[2023-02-11] MEDS: Ziprasidone Mesylate 20 MG VIAL IM ×2 (12:01→19:26)
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
[2023-02-11] MEDS: Divalproex Sodium Sprinkles 125 MG CAP.DR.SPR 1250 MG PO ×2 (13:28→23:15)
[2023-02-11] MEDS: Famotidine 20 MG TABLET PO ×2 (17:51→23:28)
[2023-02-11 18:45] VITALS: BP 118/62; PULSE 74; TEMP 36.8; O2SAT 98
[2023-02-11] MEDS: Propranolol HCL 10 MG TABLET PO (18:54)
[2023-02-11] MEDS: ALPRAZolam 0.5 MG TABLET PO (19:29)
[2023-02-11] MEDS: diphenhydrAMINE HCL 25 MG CAPSULE 75 MG PO (23:24)
[2023-02-11] MEDS: Multivitamin TABLET 1 TAB PO (23:26)
[2023-02-11] MEDS: Melatonin 3 MG TABLET PO (23:27)
[2023-02-11] MEDS: cloNIDine HCL 0.1 MG TABLET PO (23:28)
[2023-02-11] MEDS: OLANZapine 10 MG TABLET 20 MG PO (23:29)
[2023-02-11] MEDS: traZODone HCL 100 MG TABLET PO (23:29)
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
--- NOTE | 2023-02-12 10:05 | P.PNPSI_ITS ---
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 menses on 01/11 Patient did have menses a few years ago while on control; has not had it since control discontinued about 2 years ago Labs: mostly WNL; will f/u with PCP/special events coordinator PSYCHIATRIC IMPRESSION/DIAGNOSIS:. Impression: Patient is a fun, intelligent, cooperative and friendly person. When she gets triggered by something she can decompensate severely, dissociate and become physically aggressive.? Patient is now diagnosed with ASD, PTSD, and intermittent explosive disorder.? From [facility], she carried the diagnosis of Schizoaffective disorder and mention of borderline personality disorder.? Both of these have been ruled out.? 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 She is linear, logical, articulate, insightful and organized in her thinking; she is organized in her behaviors.? Patient can have intrusive thoughts but only when triggered and this does not seem to be OCD.? She can have some rigid thinking in line with ASD.? Many of her dysregulated moments come from her PTSD being exacerbated.? Patient has well tolerated decrease of Zyprexa, decrease of Depakote and discontinuation of perphenazine. Primary dx: ASD. Patient's father and grandmother maintain that she met her milestones in childhood. 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 During childhood she attended [facility] in [place], treatment center typically for people with autism; in [place] when at [facility], she carried a dx of ASD.? As observed on the unit, Patient frequently rocks back and forth, when standing or sitting, while talking to others or calming herself down.? Patient does not have a sense of a person's personal space and will get much to close to a person when talking; she is redirectable and apologizes but she is unaware she is doing it and does not get verbal cues when conversation participant is backing away or trying to end a conversation; though redirectable, she will again get too close, again unaware.? In the milieu with peers, While she will sometimes spend time in the vicinity of others, she is mostly alongside people and not directly interacting with them.? That said, she will directly interact with staff. Intermittent Flapping arms; rocking Patient does make eye contact, however she stares the entire time she is engaged. ? She can have a logical conversation Patient has a blunted affect and though she can smile and laugh, she is otherwise expressionless with blunted affect. Patient has in flexibility regarding food when it is not as expected patient can get severely dysregulated Patient has some hypo-reactivity to loud noises and crowds of people. Conversely, She does get jokes, even subtle ones. Symptoms have clearly made life functioning extremely difficult.? It is unclear if patient has had neuropsych testing. She did spend time at [facility]. Secondary dx: PTSD: Patient has a history of trauma from both childhood experiences, as well as trauma that occurred while on inpatient unit at [facility] and [place].? She has also been institutionalized since a young age, away from her mother and father, feeling abandoned. Possibly (likely?) reactive attachment disorder.? She has several regressed behaviors and some child-like interests. Regarding Dissociative Disorder:? Patient has episodes of depersonalization and derealization which the typically arise when triggered and during which time she will feel detached from herself, from her body and feel as if things are unreal and dream like, with out a sense of time; after they conclude and she is again in the present, she can be upset about some behaviors she engaged in during the dissociate period once made aware. 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 Recording Clerk and team agree there have been no axis II traits expressed throughout her time in the hospital; none could be cleaned from records No psychotic illness: no psychotic symptoms past or present Med trials (via notes from [facility]) Depakote Zyprexa [place] Seroquel Lamictal Ziprasidone Invega Sustenna Abilify, Maintena, Astrada Risperdal BuSpar Lexapro Prozac Effexor Levothyroxine Haldol: Untolerated side effect Thorazine: Anaphylaxis [place]: Hives Patient educated on: diagnosis and therapeutic strategies Informed Consent: understands Reason for continued inpatient stay Substantial Risk for: inability to function Time Spent With Patient Time: Total time managing care of this patient today ____ minutes.
[2023-02-12] MEDS: Loratadine 10 MG TABLET PO (10:06)
[2023-02-12] MEDS: Furosemide 20 MG TABLET PO (10:06)
[2023-02-12] MEDS: OLANZapine 5 MG TABLET PO ×2 (10:06→14:53)
[2023-02-12] MEDS: Doxycycline Monohydrate 100 MG CAPSULE PO ×2 (10:07→20:47)
[2023-02-12] MEDS: Sennosides/Docusate Sodium TABLET 2 TAB PO ×2 (10:07→20:47)
[2023-02-12] MEDS: FLUoxetine HCl 20 MG CAPSULE 80 MG PO (10:07)
[2023-02-12] MEDS: clonazePAM 0.5 MG TABLET PO (10:10)
[2023-02-12] MEDS: Fluticasone Propionate Nasal 16 GM SPRAY 1 SPRAY NOSTRIL-B (10:11)
[2023-02-12 10:15] VITALS: BP 103/53; PULSE 82; RESP 16; TEMP 36.1; O2SAT 97
[2023-02-12 14:50] VITALS: BP 118/78; PULSE 82; RESP 14
[2023-02-12] MEDS: Propranolol HCL 10 MG TABLET PO ×2 (14:53→18:27)
[2023-02-12] MEDS: clonazePAM 1 MG TABLET PO ×2 (14:53→20:48)
[2023-02-12] MEDS: Divalproex Sodium Sprinkles 125 MG CAP.DR.SPR 1250 MG PO ×2 (14:53→20:44)
[2023-02-12] MEDS: QUEtiapine Fumarate 50 MG TABLET 150 MG PO ×2 (15:01→17:57)
[2023-02-12] MEDS: ALPRAZolam 0.5 MG TABLET PO ×2 (15:59→16:16)
[2023-02-12] MEDS: Ziprasidone Mesylate 20 MG VIAL IM (16:20)
[2023-02-12 17:50] VITALS: BP 89/54; PULSE 80; TEMP 36.5
[2023-02-12 18:10] VITALS: BP 134/79; PULSE 90
[2023-02-12] MEDS: cloNIDine HCL 0.1 MG TABLET PO (20:47)
[2023-02-12] MEDS: Famotidine 20 MG TABLET PO (20:47)
[2023-02-12] MEDS: OLANZapine 10 MG TABLET 20 MG PO (20:47)
[2023-02-12] MEDS: traZODone HCL 100 MG TABLET PO (20:47)
[2023-02-12] MEDS: diphenhydrAMINE HCL 25 MG CAPSULE 75 MG PO (20:47)
[2023-02-12] MEDS: Melatonin 3 MG TABLET PO (20:48)
[2023-02-12] MEDS: Multivitamin TABLET 1 TAB PO (20:48)
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
[2023-02-13 10:55] VITALS: BP 117/57; PULSE 92; RESP 18; TEMP 36.3; O2SAT 97
[2023-02-13] MEDS: Sennosides/Docusate Sodium TABLET 2 TAB PO ×2 (10:59→20:28)
[2023-02-13] MEDS: OLANZapine 5 MG TABLET PO ×2 (11:00→14:01)
[2023-02-13] MEDS: Doxycycline Monohydrate 100 MG CAPSULE PO ×2 (11:00→20:28)
[2023-02-13] MEDS: Furosemide 20 MG TABLET PO (11:00)
[2023-02-13] MEDS: Loratadine 10 MG TABLET PO (11:00)
[2023-02-13] MEDS: clonazePAM 1 MG TABLET PO ×3 (11:01→20:28)
[2023-02-13] MEDS: Fluticasone Propionate Nasal 16 GM SPRAY 1 SPRAY NOSTRIL-B (12:03)
[2023-02-13] MEDS: Propranolol HCL 10 MG TABLET PO (12:03)
[2023-02-13] MEDS: Artificial Tears 15 ML DROPS 2 DROP EYE-BOTH (12:03)
[2023-02-13] MEDS: Divalproex Sodium Sprinkles 125 MG CAP.DR.SPR 1250 MG PO ×2 (14:01→20:22)
[2023-02-13] MEDS: QUEtiapine Fumarate 50 MG TABLET 150 MG PO (14:01)
[2023-02-13] MEDS: ALPRAZolam 0.5 MG TABLET PO (14:05)
--- NOTE | 2023-02-13 14:44 | P.PNPSI_ITS ---
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 IMPRESSION/DIAGNOSIS:. Impression: Patient is a fun, intelligent, cooperative and friendly person. When she gets triggered by something she can decompensate severely, dissociate and become physically aggressive.? Patient is now diagnosed with ASD, PTSD, and intermittent explosive disorder.? From [facility], she carried the diagnosis of Schizoaffective disorder and mention of borderline personality disorder.? Both of these have been ruled out.? 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 She is linear, logical, articulate, insightful and or ganized in her thinking; she is organized in her behaviors.? Patient can have intrusive thoughts but only when triggered and this does not seem to be OCD.? She can have some rigid thinking in line with ASD.? Many of her dysregulated moments come from her PTSD being exacerbated.? Patient has well tolerated decrease of Zyprexa, decrease of Depakote and discontinuation of perphenazine. Primary dx: ASD. Patient's father and grandmother maintain that she met her milestones in childhood. 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 During childhood she attended [facility] in [place], treatment center typically for people with autism; in [place] when at [facility], she carried a dx of ASD.? As observed on the unit, Patient frequently rocks back and forth, when standing or sitting, while talking to others or calming herself down.? Patient does not have a sense of a person's personal space and will get much to close to a person when talking; she is redirectable and apologizes but she is unaware she is doing it and does not get verbal cues when conversation participant is backing away or trying to end a conversation; though redirectable, she will again get too close, again unaware.? In the milieu with peers, While she will sometimes spend time in the vicinity of others, she is mostly alongside people and not directly interacting with them.? That said, she will directly interact with staff. Intermittent Flapping arms; rocking Patient does make eye contact, however she stares the entire time she is engaged. ? She can have a logical conversation Patient has a blunted affect and though she can smile and laugh, she is otherwise expressionless with blunted affect. Patient has in flexibility regarding food when it is not as expected patient can get severely dysregulated Patient has some hypo-reactivity to loud noises and crowds of people. Conversely, She does get jokes, even subtle ones. Symptoms have clearly made life functioning extremely difficult.? It is unclear if patient has had neuropsych testing. She did spend time at [facility]. Secondary dx: PTSD: Patient has a history of trauma from both childhood experiences, as well as trauma that occurred while on inpatient unit at [facility] and [place].? She has also been institutionalized since a young age, away from her mother and father, feeling abandoned. Possibly (likely?) reactive attachment disorder.? She has several regressed behaviors and some child-like interests. Regarding Dissociative Disorder:? Patient has episodes of depersonalization and derealization which the typically arise when triggered and during which time she will feel detached from herself, from her body and feel as if things are unreal and dream like, with out a sense of time; after they conclude and she is again in the present, she can be upset about some behaviors she engaged in during the dissociate period once made aware. Not BPD: Regarding past references to borderline personality disorder, Comparison Shopper and team agree there have been no axis II traits expressed throughout her time in the hospital; none could be cleaned from records No psychotic illness: no psychotic symptoms past or present Med trials (via notes from [facility]) Depakote Zyprexa [place] Seroquel Lamictal Ziprasidone Invega Sustenna Abilify, Maintena, Astrada Risperdal BuSpar Lexapro Prozac Effexor Levothyroxine Haldol: Untolerated side effect Thorazine: Anaphylaxis [place]: Hives Patient educated on: diagnosis, medication risk/benefits and therapeutic strategies Informed Consent: understands and further education needed Reason for continued inpatient stay Substantial Risk for: inability to function Time Spent With Patient Time: Total time managing care of this patient today ____ minutes.
[2023-02-13 20:23] VITALS: BP 121/62; PULSE 93; TEMP 36.3
[2023-02-13] MEDS: Famotidine 20 MG TABLET PO (20:28)
[2023-02-13] MEDS: Multivitamin TABLET 1 TAB PO (20:28)
[2023-02-13] MEDS: traZODone HCL 100 MG TABLET PO (20:28)
[2023-02-13] MEDS: Melatonin 3 MG TABLET PO (20:28)
[2023-02-13] MEDS: diphenhydrAMINE HCL 25 MG CAPSULE 75 MG PO (20:28)
[2023-02-13] MEDS: cloNIDine HCL 0.1 MG TABLET PO (20:28)
[2023-02-13] MEDS: OLANZapine 10 MG TABLET 20 MG PO (20:28)
--- NOTE | 2023-02-14 10:15 | HO.PSYCHPN ---
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 builder PSYCHIATRIC IMPRESSION/DIAGNOSIS:. Impression: Patient is a fun, intelligent, cooperative and friendly person. When she gets triggered by something she can decompensate severely, dissociate and become physically aggressive.? Patient is now diagnosed with ASD, PTSD, and intermittent explosive disorder.? From [facility], she carried the diagnosis of Schizoaffective disorder and mention of borderline personality disorder.? Both of these have been ruled out.? 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 She is linear, logical, articulate, insightful and organized in her thinking; she is organized in her behaviors.? Patient can have intrusive thoughts but only when triggered and this does not seem to be OCD.? She can have some rigid thinking in line with ASD.? Many of her dysregulated moments come from her PTSD being exacerbated.? Patient has well tolerated decrease of Zyprexa, decrease of Depakote and discontinuation of perphenazine. Primary dx: ASD. Patient's father and grandmother maintain that she met her milestones in childhood. 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 During childhood she attended [facility] in [place], treatment center typically for people with autism; in [place] when at [facility], she carried a dx of ASD.? As observed on the unit, Patient frequently rocks back and forth, when standing or sitting, while talking to others or calming herself down.? Patient does not have a sense of a person's personal space and will get much to close to a person when talking; she is redirectable and apologizes but she is unaware she is doing it and does not get verbal cues when conversation participant is backing away or trying to end a conversation; though redirectable, she will again get too close, again unaware.? In the milieu with peers, While she will sometimes spend time in the vicinity of others, she is mostly alongside people and not directly interacting with them.? That said, she will directly interact with staff. Intermittent Flapping arms; rocking Patient does make eye contact, however she stares the entire time she is engaged. ? She can have a logical conversation Patient has a blunted affect and though she can smile and laugh, she is otherwise expressionless with blunted affect. Patient has in flexibility regarding food when it is not as expected patient can get severely dysregulated Patient has some hypo-reactivity to loud noises and crowds of people. Conversely, She does get jokes, even subtle ones. Symptoms have clearly made life functioning extremely difficult.? It is unclear if patient has had neuropsych testing. She did spend time at [facility]. Secondary dx: PTSD: Patient has a history of trauma from both childhood experiences, as well as trauma that occurred while on inpatient unit at [facility] and [place].? She has also been institutionalized since a young age, away from her mother and father, feeling abandoned. Possibly (likely?) reactive attachment disorder.? She has several regressed behaviors and some child-like interests. Regarding Dissociative Disorder:? Patient has episodes of depersonalization and derealization which the typically arise when triggered and during which time she will feel detached from herself, from her body and feel as if things are unreal and dream like, with out a sense of time; after they conclude and she is again in the present, she can be upset about some behaviors she engaged in during the dissociate period once made aware. Not BPD: Regarding past references to borderline personality disorder, Night Baker and team agree there have been no axis II traits expressed throughout her time in the hospital; none could be cleaned from records No psychotic illness: no psychotic symptoms past or present Med trials (via notes from [facility]) Depakote Zyprexa [place] Seroquel Lamictal Ziprasidone Invega Sustenna Abilify, Maintena, Astrada Risperdal BuSpar Lexapro Prozac Effexor Levothyroxine Haldol: Untolerated side effect Thorazine: Anaphylaxis [place]: Hives Patient educated on: diagnosis, medication risk/benefits and therapeutic strategies Informed Consent: understands Reason for continued inpatient stay Substantial Risk for: inability to function Time Spent With Patient Time: Total time managing care of this patient today ____ minutes.
[2023-02-14] MEDS: Sennosides/Docusate Sodium TABLET 2 TAB PO ×2 (11:09→19:36)
[2023-02-14] MEDS: Furosemide 20 MG TABLET PO ×2 (11:09→16:43)
[2023-02-14] MEDS: OLANZapine 5 MG TABLET PO ×2 (11:09→15:23)
[2023-02-14] MEDS: clonazePAM 1 MG TABLET PO (11:09)
[2023-02-14 11:10] VITALS: BP 116/75; PULSE 95; RESP 18; TEMP 36.4; O2SAT 97
[2023-02-14] MEDS: Doxycycline Monohydrate 100 MG CAPSULE PO ×2 (11:10→19:35)
[2023-02-14] MEDS: Loratadine 10 MG TABLET PO (11:10)
[2023-02-14] MEDS: Propranolol HCL 20 MG TABLET PO (11:16)
[2023-02-14] MEDS: Fluticasone Propionate Nasal 16 GM SPRAY 1 SPRAY NOSTRIL-B (11:16)
[2023-02-14 12:00] VITALS: BP 140/83; PULSE 112; O2SAT 97
--- NOTE | 2023-02-14 12:10 | PM.EVENT ---
Event Note Date of Service: 02/14/23 Event Note: ingested bottom half of plastic spoon, vomitted non bloody, piece appears to have come up, but unsure if any residual saturation okay., able to talk, will check ct chest Time Spent With Patient Time: Total time managing care of this patient today ____ minutes.
--- NOTE | 2023-02-14 12:12 | PC.NURSE ---
Pt was in group room at 11:45 and broke a plastic spoon into 2 pieces. Pt swallowed the round end of the spoon and a rapid response was called. Pt was having difficulty breathing and eventually vomited up the piece of spoon which was confiscated. Pt then swallowed a smaller piece of a spoon handle that was hidden in her pocket. Patient went to room to change clothes due to vomit being all over them and was given IM Geodon 20 mg as a chemical restraint due to behavior. Patient returned to group room and was given Clonazepam 2 mg and another 20mg Geodon IM per patient request. Patient vitals were taken and documented. Patient ate lunch and laid down in 505 restraint room and was placed on close observation.
[2023-02-14] MEDS: clonazePAM 1 MG TABLET 2 MG PO ×3 (12:50→19:35)
[2023-02-14] MEDS: Ziprasidone Mesylate 20 MG VIAL IM ×2 (13:02→13:03)
[2023-02-14] MEDS: Amoxicillin/Potassium Clav 875 MG TABLET PO ×2 (13:08→19:34)
[2023-02-14] MEDS: Divalproex Sodium Sprinkles 125 MG CAP.DR.SPR 1250 MG PO ×2 (15:23→19:33)
[2023-02-14] MEDS: QUEtiapine Fumarate 50 MG TABLET 150 MG PO (16:43)
[2023-02-14] MEDS: Throat Lozenge, Medicated LOZENGE 1 LOZENGE MUCOUS MEM (19:15)
[2023-02-14] MEDS: Multivitamin TABLET 1 TAB PO (19:34)
[2023-02-14] MEDS: Famotidine 20 MG TABLET PO (19:34)
[2023-02-14] MEDS: Melatonin 3 MG TABLET PO (19:35)
[2023-02-14] MEDS: OLANZapine 10 MG TABLET 20 MG PO (19:35)
[2023-02-14] MEDS: traZODone HCL 100 MG TABLET PO (19:35)
[2023-02-14] MEDS: diphenhydrAMINE HCL 25 MG CAPSULE 75 MG PO (19:35)
[2023-02-14] MEDS: diphenhydrAMINE HCL 50 MG/ML VIAL IM (21:37)
[2023-02-14] MEDS: OLANZapine 10 MG VIAL IM (21:37)
--- NOTE | 2023-02-14 22:03 | PC.NURSE ---
Addendum entered by Latrell Gold RN 02/14/23 22:27: error - med was 10mg zyprexa IM and 50mg benedryl IM Original Note: pt went into another patient's room and laid on bed. pt was redirected to her room, offered PRNs and offered music, bur patient refused and started threatening staff saying I'm going to kill romana pt was given IM zyprexa 20mg and benedryl 50mg IM and was placed in restraint chair at 2114. pt was put back in her room and left to calm down. pt was released at 2214 out of the chair into bed.
[2023-02-15] MEDS: OLANZapine 5 MG TABLET PO ×2 (09:12→13:33)
[2023-02-15] MEDS: Furosemide 20 MG TABLET PO ×2 (09:12→20:30)
[2023-02-15] MEDS: Loratadine 10 MG TABLET PO (09:12)
[2023-02-15] MEDS: Sennosides/Docusate Sodium TABLET 2 TAB PO ×2 (09:12→20:31)
[2023-02-15] MEDS: ALPRAZolam 0.5 MG TABLET PO (09:12)
[2023-02-15] MEDS: Amoxicillin/Potassium Clav 875 MG TABLET PO ×2 (09:12→20:31)
[2023-02-15] MEDS: clonazePAM 1 MG TABLET 2 MG PO ×3 (09:12→20:30)
[2023-02-15 10:11] VITALS: BP 130/74; PULSE 102; RESP 18; TEMP 36.6; O2SAT 97
[2023-02-15] MEDS: Fluticasone Propionate Nasal 16 GM SPRAY 1 SPRAY NOSTRIL-B (10:20)
--- NOTE | 2023-02-15 10:49 | HO.PSYCHPN ---
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 obstructive sleep apnea) does not need an inpt ct scan but should f/up with outpt pulmonary and rheumatology. -in further discussion, Dr. 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 Impression: Patient is a fun, intelligent, cooperative and friendly person. When she gets triggered by something she can decompensate severely, dissociate and become physically aggressive.? Patient is now diagnosed with ASD, PTSD, and intermittent explosive disorder.? From [facility], she carried the diagnosis of Schizoaffective disorder and mention of borderline personality disorder.? Both of these have been ruled out.? 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 She is linear, logical, articulate, insightful and organized in her thinking; she is organized in her behaviors.? Patient can have intrusive thoughts but only when triggered and this does not seem to be OCD.? She can have some rigid thinking in line with ASD.? Many of her dysregulated moments come from her PTSD being exacerbated.? Patient has well tolerated decrease of Zyprexa, decrease of Depakote and discontinuation of perphenazine. Primary dx: ASD. Patient's father and grandmother maintain that she met her milestones in childhood. 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 During childhood she attended [facility] in [place], treatment center typically for people with autism; in [place] when at [facility], she carried a dx of ASD.? As observed on the unit, Patient frequently rocks back and forth, when standing or sitting, while talking to others or calming herself down.? Patient does not have a sense of a person's personal space and will get much to close to a person when talking; she is redirectable and apologizes but she is unaware she is doing it and does not get verbal cues when conversation participant is backing away or trying to end a conversation; though redirectable, she will again get too close, again unaware.? In the milieu with peers, While she will sometimes spend time in the vicinity of others, she is mostly alongside people and not directly interacting with them.? That said, she will directly interact with staff. Intermittent Flapping arms; rocking Patient does make eye contact, however she stares the entire time she is engaged. ? She can have a logical conversation Patient has a blunted affect and though she can smile and laugh, she is otherwise expressionless with blunted affect. Patient has in flexibility regarding food when it is not as expected patient can get severely dysregulated Patient has some hypo-reactivity to loud noises and crowds of people. Conversely, She does get jokes, even subtle ones. Symptoms have clearly made life functioning extremely difficult.? It is unclear if patient has had neuropsych testing. She did spend time at [facility]. Secondary dx: PTSD: Patient has a history of trauma from both childhood experiences, as well as trauma that occurred while on inpatient unit at [facility] and [place].? She has also been institutionalized since a young age, away from her mother and father, feeling abandoned. Possibly (likely?) reactive attachment disorder.? She has several regressed behaviors and some child-like interests. Regarding Dissociative Disorder:? Patient has episodes of depersonalization and derealization which the typically arise when triggered and during which time she will feel detached from herself, from her body and feel as if things are unreal and dream like, with out a sense of time; after they conclude and she is again in the present, she can be upset about some behaviors she engaged in during the dissociate period once made aware. 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 agree there have been no axis II traits expressed throughout her time in the hospital; none could be cleaned from records No psychotic illness: no psychotic symptoms past or present Med trials (via notes from [facility]) Depakote Zyprexa [place] Seroquel Lamictal Ziprasidone Invega Sustenna Abilify, Maintena, Astrada Risperdal BuSpar Lexapro Prozac Effexor Levothyroxine Haldol: Untolerated side effect Thorazine: Anaphylaxis [place]: Hives Reason for continued inpatient stay Substantial Risk for: harm to self, harm to others and inability to function Time Spent With Patient Time: Total time managing care of this patient today ____ minutes.
[2023-02-15] MEDS: Propranolol HCL 20 MG TABLET PO (13:32)
[2023-02-15] MEDS: Divalproex Sodium Sprinkles 125 MG CAP.DR.SPR 1250 MG PO ×2 (13:32→20:33)
[2023-02-15] MEDS: Ziprasidone Mesylate 20 MG VIAL IM (14:53)
[2023-02-15] MEDS: diphenhydrAMINE HCL 50 MG/ML VIAL IM (14:54)
--- NOTE | 2023-02-15 14:55 | PC.NURSE ---
Addendum entered by Juanis hCery RN 02/15/23 14:56: Pt was displaying self injurious behavior (punching self in face repetitively) and became agitated and assaultive to staff @ 14:20. Security was called and order for medication restraint was entered. Patient was lowered to ground by security and staff and mesh bag was placed on her head due to spitting. Pt received IM Geodon 20mg and IM Benadryl 20mg @ 14:30 Pt was released to room 505 @ 14:40. Pt refused vital signs. Pt laying in bed on close observation, respirations are even and non-labored. Pt assessed by @ 15:05. Original Note: Pt became agitated and assaultive to staff. Code
[2023-02-15 16:46] VITALS: RESP 16
[2023-02-15] MEDS: cloNIDine HCL 0.1 MG TABLET PO (20:30)
[2023-02-15] MEDS: Multivitamin TABLET 1 TAB PO (20:30)
[2023-02-15] MEDS: traZODone HCL 100 MG TABLET PO (20:30)
[2023-02-15] MEDS: diphenhydrAMINE HCL 25 MG CAPSULE 75 MG PO (20:31)
[2023-02-15] MEDS: Famotidine 20 MG TABLET PO (20:31)
[2023-02-15] MEDS: QUEtiapine Fumarate 50 MG TABLET 150 MG PO (20:31)
[2023-02-15] MEDS: Melatonin 3 MG TABLET PO (20:32)
[2023-02-15] MEDS: OLANZapine 10 MG TABLET 20 MG PO (20:32)
[2023-02-16] MEDS: Ziprasidone 20 MG CAPSULE PO (09:54)
[2023-02-16] MEDS: clonazePAM 1 MG TABLET 2 MG PO ×3 (09:54→20:47)
[2023-02-16] MEDS: Loratadine 10 MG TABLET PO (09:54)
[2023-02-16] MEDS: Amoxicillin/Potassium Clav 875 MG TABLET PO ×2 (09:54→20:52)
[2023-02-16] MEDS: Sennosides/Docusate Sodium TABLET 2 TAB PO ×2 (09:55→21:03)
[2023-02-16] MEDS: OLANZapine 5 MG TABLET PO ×2 (09:55→14:54)
[2023-02-16] MEDS: Furosemide 20 MG TABLET PO ×2 (10:00→16:40)
[2023-02-16 10:02] VITALS: BP 125/71; PULSE 76; RESP 16; TEMP 36.8; O2SAT 98
[2023-02-16] MEDS: Fluticasone Propionate Nasal 16 GM SPRAY 1 SPRAY NOSTRIL-B (10:05)
[2023-02-16] MEDS: Divalproex Sodium Sprinkles 125 MG CAP.DR.SPR 1250 MG PO ×2 (14:53→21:03)
[2023-02-16 16:20] VITALS: BP 117/68; PULSE 89; TEMP 36.1
[2023-02-16] MEDS: QUEtiapine Fumarate 50 MG TABLET 150 MG PO (17:56)
[2023-02-16] MEDS: diphenhydrAMINE HCL 25 MG CAPSULE 75 MG PO (20:45)
[2023-02-16] MEDS: Melatonin 3 MG TABLET PO (20:47)
[2023-02-16] MEDS: OLANZapine 10 MG TABLET 20 MG PO (20:48)
[2023-02-16] MEDS: Acetaminophen 325 MG TABLET 650 MG PO (20:49)
[2023-02-16] MEDS: Famotidine 20 MG TABLET PO (20:51)
[2023-02-16] MEDS: ALPRAZolam 0.5 MG TABLET PO (20:52)
[2023-02-16] MEDS: Multivitamin TABLET 1 TAB PO (20:52)
[2023-02-16] MEDS: cloNIDine HCL 0.1 MG TABLET PO (21:02)
[2023-02-16] MEDS: traZODone HCL 100 MG TABLET PO (21:26)
--- NOTE | 2023-02-16 21:38 | HO.PSYCHPN ---
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 diffusion impairment. -could be explained by her elevated BMI. -at this time dr. Melchor reports given lab work, at this time it does not look like she has lupus nor sjogrens nor scleroderma. Her cxr was good. needs a sleep study as an out pt (daytime drowsiness bringing up the possibility of obstructive sleep apnea) does not need an inpt ct scan but should f/up with outpt pulmonary and rheumatology. -in further discussion, Dr. 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 Impression: Patient is a fun, intelligent, cooperative and friendly person. When she gets triggered by something she can decompensate severely, dissociate and become physically aggressive.? Patient is now diagnosed with ASD, PTSD, and intermittent explosive disorder.? From [facility], she carried the diagnosis of Schizoaffective disorder and mention of borderline personality disorder.? Both of these have been ruled out.? 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 She is linear, logical, articulate, insightful and organized in her thinking; she is organized in her behaviors.? Patient can have intrusive thoughts but only when triggered and this does not seem to be OCD.? She can have some rigid thinking in line with ASD.? Many of her dysregulated moments come from her PTSD being exacerbated.? Patient has well tolerated decrease of Zyprexa, decrease of Depakote and discontinuation of perphenazine. Primary dx: ASD. Patient's father and grandmother maintain that she met her milestones in childhood. 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 During childhood she attended [facility] in [place], treatment center typically for people with autism; in [place] when at [facility], she carried a dx of ASD.? As observed on the unit, Patient frequently rocks back and forth, when standing or sitting, while talking to others or calming herself down.? Patient does not have a sense of a person's personal space and will get much to close to a person when talking; she is redirectable and apologizes but she is unaware she is doing it and does not get verbal cues when conversation participant is backing away or trying to end a conversation; though redirectable, she will again get too close, again unaware.? In the milieu with peers, While she will sometimes spend time in the vicinity of others, she is mostly alongside people and not directly interacting with them.? That said, she will directly interact with staff. Intermittent Flapping arms; rocking Patient does make eye contact, however she stares the entire time she is engaged. ? She can have a logical conversation Patient has a blunted affect and though she can smile and laugh, she is otherwise expressionless with blunted affect. Patient has in flexibility regarding food when it is not as expected patient can get severely dysregulated Patient has some hypo-reactivity to loud noises and crowds of people. Conversely, She does get jokes, even subtle ones. Symptoms have clearly made life functioning extremely difficult.? It is unclear if patient has had neuropsych testing. She did spend time at [facility]. Secondary dx: PTSD: Patient has a history of trauma from both childhood experiences, as well as trauma that occurred while on inpatient unit at [facility] and [place].? She has also been institutionalized since a young age, away from her mother and father, feeling abandoned. Possibly (likely?) reactive attachment disorder.? She has several regressed behaviors and some child-like interests. Regarding Dissociative Disorder:? Patient has episodes of depersonalization and derealization which the typically arise when triggered and during which time she will feel detached from herself, from her body and feel as if things are unreal and dream like, with out a sense of time; after they conclude and she is again in the present, she can be upset about some behaviors she engaged in during the dissociate period once made aware. Not BPD: Regarding past references to borderline personality disorder, [employer] and team agree there have been no axis II traits expressed throughout her time in the hospital; none could be cleaned from records No psychotic illness: no psychotic symptoms past or present Med trials (via notes from [facility]) Depakote Zyprexa [place] Seroquel Lamictal Ziprasidone Invega Sustenna Abilify, Maintena, Astrada Risperdal BuSpar Lexapro Prozac Effexor Levothyroxine Haldol: Untolerated side effect Thorazine: Anaphylaxis [place]: Hives Reason for continued inpatient stay Substantial Risk for: harm to self, harm to others, inability to function and rapid decompensation Time Spent With Patient Time: Total time managing care of this patient today ____ minutes.
--- NOTE | 2023-02-17 09:24 | P.PNPSI_ITS ---
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 w/ lowering of medications Zyprexa and depakote r/u autoimune 4. Complaint of chronic struggles with inspiration: lungs CTA; CXR unremarkable Pulmonary function test: results reviewed, discussed with Dr. Melchor -elevated CHARLES and abnromal PFTs with a mild restriction with a mild diffusion impairment. -could be explained by her elevated BMI. -at this time dr. Melchor reports given lab work, at this time it does not look like she has lupus nor sjogrens nor scleroderma. Her cxr was good. needs a sleep study as an out pt (daytime drowsiness bringing up the possibility of obstructive sleep apnea) does not need an inpt ct scan but should f/up with outpt pulmonary and rheumat ology. -in further discussion, Dr. 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 Impression: Patient is a fun, intelligent, cooperative and friendly person. When she gets triggered by something she can decompensate severely, dissociate and become physically aggressive.? Patient is now diagnosed with ASD, PTSD, and intermittent explosive disorder.? From [facility], she carried the diagnosis of Schizoaffective disorder and mention of borderline personality disorder.? Both of these have been ruled out.? 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 She is linear, logical, articulate, insightful and organized in her thinking; she is organized in her behaviors.? Patient can have intrusive thoughts but only when triggered and this does not seem to be OCD.? She can have some rigid thinking in line with ASD.? Many of her dysregulated moments come from her PTSD being exacerbated.? Patient has well tolerated decrease of Zyprexa, decrease of Depakote and discontinuation of perphenazine. Primary dx: ASD. Patient's father and grandmother maintain that she met her milestones in childhood. 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 During childhood she attended [facility] in [place], treatment center typically for people with autism; in [place] when at [facility], she carried a dx of ASD.? As observed on the unit, Patient frequently rocks back and forth, when standing or sitting, while talking to others or calming herself down.? Patient does not have a sense of a person's personal space and will get much to close to a person when talking; she is redirectable and apologizes but she is unaware she is doing it and does not get verbal cues when conversation participant is backing away or trying to end a conversation; though redirectable, she will again get too close, again unaware.? In the milieu with peers, While she will sometimes spend time in the vicinity of others, she is mostly alongside people and not directly interacting with them.? That said, she will directly interact with staff. Intermittent Flapping arms; rocking Patient does make eye contact, however she stares the entire time she is engaged. ? She can have a logical conversation Patient has a blunted affect and though she can smile and laugh, she is otherwise expressionless with blunted affect. Patient has in flexibility regarding food when it is not as expected patient can get severely dysregulated Patient has some hypo-reactivity to loud noises and crowds of people. Conversely, She does get jokes, even subtle ones. Symptoms have clearly made life functioning extremely difficult.? It is unclear if patient has had neuropsych testing. She did spend time at [facility]. Secondary dx: PTSD: Patient has a history of trauma from both childhood experiences, as well as trauma that occurred while on inpatient unit at [facility] and [place].? She has also been institutionalized since a young age, away from her mother and father, feeling abandoned. Possibly (likely?) reactive attachment disorder.? She has several regressed behaviors and some child-like interests. Regarding Dissociative Disorder:? Patient has episodes of depersonalization and derealization which the typically arise when triggered and during which time she will feel detached from herself, from her body and feel as if things are unreal and dream like, with out a sense of time; after they conclude and she is again in the present, she can be upset about some behaviors she engaged in during the dissociate period once made aware. Not BPD: Regarding past references to borderline personality disorder, Patient Observer and team agree there have been no axis II traits expressed throughout her time in the hospital; none could be cleaned from records No psychotic illness: no psychotic symptoms past or present Med [facility] Depakote Zyprexa Satsuma Seroquel Lamictal Ziprasidone Invega Sustenna Abilify, Maintena, Astrada Risperdal BuSpar Lexapro Prozac Effexor Levothyroxine Haldol: Untolerated side effect Thorazine: Anaphylaxis Satsuma: Hives Reason for continued inpatient stay Substantial Risk for: harm to self, harm to others, inability to function and rapid decompensation Time Spent With Patient Time: Total time managing care of this patient today ____ minutes.
[2023-02-17] MEDS: Amoxicillin/Potassium Clav 875 MG TABLET PO ×2 (11:24→19:18)
[2023-02-17] MEDS: Ziprasidone 20 MG CAPSULE PO ×2 (11:24→18:26)
[2023-02-17 11:25] VITALS: BP 111/69; PULSE 97; RESP 18; TEMP 36.2; O2SAT 94
[2023-02-17] MEDS: OLANZapine 5 MG TABLET PO ×2 (11:25→14:00)
[2023-02-17] MEDS: Sennosides/Docusate Sodium TABLET 2 TAB PO ×2 (11:25→19:18)
[2023-02-17] MEDS: Propranolol HCL LA 80 MG CAP.SA.24H PO (11:25)
[2023-02-17] MEDS: Loratadine 10 MG TABLET PO (11:26)
[2023-02-17] MEDS: Furosemide 20 MG TABLET PO ×2 (11:26→17:46)
[2023-02-17] MEDS: clonazePAM 1 MG TABLET 2 MG PO ×3 (11:26→19:19)
[2023-02-17] MEDS: Fluticasone Propionate Nasal 16 GM SPRAY 1 SPRAY NOSTRIL-B (11:31)
--- NOTE | 2023-02-17 11:46 | PC.NURSE ---
She has remained in good behavioral control 02/16 into 02/17 thus far. Pt slept until around 1130. TW expressed that if continues to maintain good behavioral control until 1400, a reward would be offered. She expressed interest in receiving a cupcake and staff agreed. She expressed interest in having scheduled geodon during her stay as it helps her remain calm.
[2023-02-17] MEDS: Divalproex Sodium Sprinkles 125 MG CAP.DR.SPR 1250 MG PO ×2 (14:00→19:21)
[2023-02-17 17:45] VITALS: BP 133/73; PULSE 84; TEMP 35.9
[2023-02-17] MEDS: QUEtiapine Fumarate 50 MG TABLET 150 MG PO (17:46)
[2023-02-17 19:10] VITALS: BP 102/53; PULSE 83; TEMP 36.3
[2023-02-17] MEDS: diphenhydrAMINE HCL 25 MG CAPSULE 75 MG PO (19:18)
[2023-02-17] MEDS: Famotidine 20 MG TABLET PO (19:18)
[2023-02-17] MEDS: Multivitamin TABLET 1 TAB PO (19:20)
[2023-02-17] MEDS: OLANZapine 10 MG TABLET 20 MG PO (19:20)
[2023-02-17] MEDS: Melatonin 3 MG TABLET PO (19:20)
[2023-02-17] MEDS: cloNIDine HCL 0.1 MG TABLET PO (19:21)
[2023-02-17] MEDS: traZODone HCL 100 MG TABLET PO (19:21)
[2023-02-18 09:35] VITALS: BP 120/73; PULSE 84; RESP 14; TEMP 36.1; O2SAT 97
[2023-02-18] MEDS: Sennosides/Docusate Sodium TABLET 2 TAB PO ×2 (09:36→21:43)
[2023-02-18] MEDS: Loratadine 10 MG TABLET PO (09:36)
[2023-02-18] MEDS: Amoxicillin/Potassium Clav 875 MG TABLET PO ×2 (09:36→21:42)
[2023-02-18] MEDS: clonazePAM 1 MG TABLET 2 MG PO ×3 (09:36→21:42)
[2023-02-18] MEDS: Ziprasidone 20 MG CAPSULE PO (09:36)
[2023-02-18] MEDS: OLANZapine 5 MG TABLET PO ×2 (09:36→16:07)
[2023-02-18] MEDS: Propranolol HCL LA 80 MG CAP.SA.24H PO (09:36)
[2023-02-18] MEDS: Furosemide 20 MG TABLET PO (09:36)
--- NOTE | 2023-02-18 10:05 | HO.PSYCHPN ---
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 helpful. Continue to discuss medication management with team. Chronic conditions: 2. CHARLES positive Outpatient appointment made with Rheumatology February 20 -daytime fatigue; b/l peripheral edema; mild dyspnea on exertion Discussed with Dr. Hamilton who recommends and following labs ordered: -Urine protein creatinine ratio -Rheumatoid factor -CCP antibody 3. Bilateral peripheral edema (lower/upper extrem):? Medication side effect (Zyprexa/Depakote)?? vs organic origin some reduction w/ lowering of medications Zyprexa and depakote r/u autoimune 4. Complaint of chronic struggles with inspiration: lungs CTA; CXR unremarkable Pulmonary function test: results reviewed, discussed with Dr. Melchor -elevated CHARLES and abnromal PFTs with a mild restriction with a mild diffusion impairment. -could be explained by her elevated BMI. -at this time dr. Melchor reports given lab work, at this time it does not look like she has lupus nor sjogrens nor scleroderma. Her cxr was good. needs a sleep study as an out pt (daytime drowsiness bringing up the possibility of obstructive sleep apnea) does not need an inpt ct scan but should f/up with outpt pulmonary and rheumatology. -in further discussion, Dr. Melchor agrees that CHARLES needs further evaluation, 5.hx of Amenorrhea: Patient did get her menses on 01/11 Patient did have menses a few years ago while on control; has not had it since control discontinued about 2 years ago Labs: mostly WNL; will f/u with PCP/senior controller PSYCHIATRIC IMPRESSION/DIAGNOSIS:. Impression: Patient is a fun, intelligent, cooperative and friendly person. When she gets triggered by something she can decompensate severely, dissociate and become physically aggressive.? Patient is now diagnosed with ASD, PTSD, and intermittent explosive disorder.? From [facility], she carried the diagnosis of Schizoaffective disorder and mention of borderline personality disorder.? Both of these have been ruled out.? 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 She is linear, logical, articulate, insightful and organized in her thinking; she is organized in her behaviors.? Patient can have intrusive thoughts but only when triggered and this does not seem to be OCD.? She can have some rigid thinking in line with ASD.? Many of her dysregulated moments come from her PTSD being exacerbated.? Patient has well tolerated decrease of Zyprexa, decrease of Depakote and discontinuation of perphenazine. Primary dx: ASD. Patient's father and grandmother maintain that she met her milestones in childhood. 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 During childhood she attended [facility] in [place], treatment center typically for people with autism; in [place] when at [facility], she carried a dx of ASD.? As observed on the unit, Patient frequently rocks back and forth, when standing or sitting, while talking to others or calming herself down.? Patient does not have a sense of a person's personal space and will get much to close to a person when talking; she is redirectable and apologizes but she is unaware she is doing it and does not get verbal cues when conversation participant is backing away or trying to end a conversation; though redirectable, she will again get too close, again unaware.? In the milieu with peers, While she will sometimes spend time in the vicinity of others, she is mostly alongside people and not directly interacting with them.? That said, she will directly interact with staff. Intermittent Flapping arms; rocking Patient does make eye contact, however she stares the entire time she is engaged. ? She can have a logical conversation Patient has a blunted affect and though she can smile and laugh, she is otherwise expressionless with blunted affect. Patient has in flexibility regarding food when it is not as expected patient can get severely dysregulated Patient has some hypo-reactivity to loud noises and crowds of people. Conversely, She does get jokes, even subtle ones. Symptoms have clearly made life functioning extremely difficult.? It is unclear if patient has had neuropsych testing. She did spend time at [facility]. Secondary dx: PTSD: Patient has a history of trauma from both childhood experiences, as well as trauma that occurred while on inpatient unit at [facility] and [place].? She has also been institutionalized since a young age, away from her mother and father, feeling abandoned. Possibly (likely?) reactive attachment disorder.? She has several regressed behaviors and some child-like interests. Regarding Dissociative Disorder:? Patient has episodes of depersonalization and derealization which the typically arise when triggered and during which time she will feel detached from herself, from her body and feel as if things are unreal and dream like, with out a sense of time; after they conclude and she is again in the present, she can be upset about some behaviors she engaged in during the dissociate period once made aware. 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 there have been no axis II traits expressed throughout her time in the hospital; none could be cleaned from records No psychotic illness: no psychotic symptoms past or present Med trials (via notes from [facility]) Depakote Zyprexa Eliza Seroquel Lamictal Ziprasidone Invega Sustenna Abilify, Maintena, Astrada Risperdal BuSpar Lexapro Prozac Effexor Levothyroxine Haldol: Untolerated side effect Thorazine: Anaphylaxis Eliza: Hives Patient educated on: diagnosis, medication risk/benefits and therapeutic strategies Informed Consent: understands Reason for continued inpatient stay Substantial Risk for: inability to function Time Spent With Patient Time: Total time managing care of this patient today ____ minutes.
[2023-02-18] MEDS: Ziprasidone Mesylate 20 MG VIAL IM (11:40)
[2023-02-18] MEDS: Divalproex Sodium Sprinkles 125 MG CAP.DR.SPR 1250 MG PO ×2 (16:07→21:43)
[2023-02-18] MEDS: Fluticasone Propionate Nasal 16 GM SPRAY 1 SPRAY NOSTRIL-B (16:10)
[2023-02-18] MEDS: QUEtiapine Fumarate 50 MG TABLET 150 MG PO (18:07)
[2023-02-18] MEDS: Sodium Phosphate,Mono-Dibasic 133 ML ENEMA PR (18:11)
[2023-02-18] MEDS: diphenhydrAMINE HCL 25 MG CAPSULE 75 MG PO (21:42)
[2023-02-18] MEDS: ALPRAZolam 0.5 MG TABLET PO (21:42)
[2023-02-18] MEDS: Famotidine 20 MG TABLET PO (21:42)
[2023-02-18] MEDS: Multivitamin TABLET 1 TAB PO (21:42)
[2023-02-18] MEDS: traZODone HCL 100 MG TABLET PO (21:42)
[2023-02-18] MEDS: Melatonin 3 MG TABLET PO (21:42)
[2023-02-18] MEDS: cloNIDine HCL 0.1 MG TABLET PO (21:42)
[2023-02-18] MEDS: OLANZapine 10 MG TABLET 20 MG PO (21:42)
--- NOTE | 2023-02-19 | ECG_ITS ---
Test Reason : qtc check Blood Pressure : / mmHG Vent. Rate : 078 BPM Atrial Rate : 078 BPM P-R Int : 148 ms QRS Dur : 078 ms QT Int : 390 ms P-R-T Axes : 041 066 051 degrees QTc Int : 444 ms Normal sinus rhythm Normal ECG When compared with ECG of 10-FEB-2023 19:07, No significant change was found Referred By: Ruel Bustos Electronically Signed By:JANET GOODEN MD
[2023-02-19] MEDS: clonazePAM 1 MG TABLET 2 MG PO ×3 (11:20→19:49)
[2023-02-19 12:20] VITALS: BP 126/68; PULSE 88; RESP 14; TEMP 36.6; O2SAT 97
[2023-02-19] MEDS: Loratadine 10 MG TABLET PO (12:22)
[2023-02-19] MEDS: OLANZapine 5 MG TABLET PO ×2 (12:22→14:44)
[2023-02-19] MEDS: Furosemide 20 MG TABLET PO ×2 (12:22→17:05)
[2023-02-19] MEDS: Amoxicillin/Potassium Clav 875 MG TABLET PO ×2 (12:22→19:50)
[2023-02-19] MEDS: Sennosides/Docusate Sodium TABLET 2 TAB PO ×2 (12:22→19:50)
[2023-02-19] MEDS: Propranolol HCL LA 80 MG CAP.SA.24H PO (12:23)
[2023-02-19] MEDS: Fluticasone Propionate Nasal 16 GM SPRAY 1 SPRAY NOSTRIL-B (12:33)
[2023-02-19] MEDS: Ziprasidone 20 MG CAPSULE PO (14:44)
[2023-02-19] MEDS: Divalproex Sodium Sprinkles 125 MG CAP.DR.SPR 1250 MG PO ×2 (14:54→19:48)
--- NOTE | 2023-02-19 16:27 | P.PNPSI_ITS ---
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 discuss behavioral plan, progress and potential disposition options. Reviewed EKG Date of Service: 02/19/23; ?? QTc Int : 444 ms; ?Normal sinus rhy thm; Normal ECG -discussed medication options with Dr. Elaine and will consider potentially trying Tegretol either with or without Depakote; conversely, patient has had good behavioral control for the past several days and there is hesitancy to make major medication changes. Will continue to consider Chronic conditions: 2. CHARLES positive Outpatient appointment made with Rheumatology February 20 -daytime fatigue; b/l peripheral edema; mild dyspnea on exertion Discussed with Dr. Hamilton who recommends and following labs ordered: -Urine protein creatinine ratio -Rheumatoid factor -CCP antibody 3. Bilateral peripheral edema (lower/upper extrem):? Medication side effect (Zyprexa/Depakote)?? vs organic origin some reduction w/ lowering of medications Zyprexa and depakote r/u autoimune 4. Complaint of chronic struggles with inspiration: lungs CTA; CXR unremarkable Pulmonary function test: results reviewed, discussed with Dr. Melchor -elevated CHARLES and abnromal PFTs with a mild restriction with a mild diffusion impairment. -could be explained by her elevated BMI. -at this time dr. Melchor reports given lab work, at this time it does not look like she has lupus nor sjogrens nor scleroderma. Her cxr was good. needs a sleep study as an out pt (daytime drowsiness bringing up the possibility of obstructive sleep apnea) does not need an inpt ct scan but should f/up with outpt pulmonary and rheuma tology. -in further discussion, Dr. Melchor agrees that CHARLES needs further evaluation, 5.hx of Amenorrhea: Patient did get her menses on 01/11 Patient did have menses a few years ago while on control; has not had it since control discontinued about 2 years ago Labs: mostly WNL; will f/u with PCP/divorce attorney PSYCHIATRIC IMPRESSION/DIAGNOSIS:. Impression: Patient is a fun, intelligent, cooperative and friendly person. When she gets triggered by something she can decompensate severely, dissociate and become physically aggressive.? Patient is now diagnosed with ASD, PTSD, and intermittent explosive disorder.? From [facility], she carried the diagnosis of Schizoaffective disorder and mention of borderline personality disorder.? Both of these have been ruled out.? 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 She is linear, logical, articulate, insightful and organized in her thinking; she is organized in her behaviors.? Patient can have intrusive thoughts but only when triggered and this does not seem to be OCD.? She can have some rigid thinking in line with ASD.? Many of her dysregulated moments come from her PTSD being exacerbated.? Patient has well tolerated decrease of Zyprexa, decrease of Depakote and discontinuation of perphenazine. Primary dx: ASD. Patient's father and grandmother maintain that she met her milestones in childhood. 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 During childhood she attended [facility] in [place], treatment center typically for people with autism; in [place] when at [facility], she carried a dx of ASD.? As observed on the unit, Patient frequently rocks back and forth, when standing or sitting, while talking to others or calming herself down.? Patient does not have a sense of a person's personal space and will get much to close to a person when talking; she is redirectable and apologizes but she is unaware she is doing it and does not get verbal cues when conversation participant is backing away or trying to end a conversation; though redirectable, she will again get too close, again unaware.? In the milieu with peers, While she will sometimes spend time in the vicinity of others, she is mostly alongside people and not directly interacting with them.? That said, she will directly interact with staff. Intermittent Flapping arms; rocking Patient does make eye contact, however she stares the entire time she is engaged. ? She can have a logical conversation Patient has a blunted affect and though she can smile and laugh, she is otherwise expressionless with blunted affect. Patient has in flexibility regarding food when it is not as expected patient can get severely dysregulated Patient has some hypo-reactivity to loud noises and crowds of people. Conversely, She does get jokes, even subtle ones. Symptoms have clearly made life functioning extremely difficult.? It is unclear if patient has had neuropsych testing. She did spend time at [facility]. Secondary dx: PTSD: Patient has a history of trauma from both childhood experiences, as well as trauma that occurred while on inpatient unit at [facility] and [place].? She has also been institutionalized since a young age, away from her mother and father, feeling abandoned. Possibly (likely?) reactive attachment disorder.? She has several regressed behaviors and some child-like interests. Regarding Dissociative Disorder:? Patient has episodes of depersonalization and derealization which the typically arise when triggered and during which time she will feel detached from herself, from her body and feel as if things are unreal and dream like, with out a sense of time; after they conclude and she is again in the present, she can be upset about some behaviors she engaged in during the dissociate period once made aware. Not BPD: Regarding past references to borderline personality disorder, Insurance Verification Rep and team agree there have been no axis II traits expressed throughout her time in the hospital; none could be cleaned from records No psychotic illness: no psychotic symptoms past or present Med trials (via notes from [facility]) Depakote Zyprexa [place] Seroquel Lamictal Ziprasidone Invega Sustenna Abilify, Maintena, Astrada Risperdal BuSpar Lexapro Prozac Effexor Levothyroxine Haldol: Untolerated side effect Thorazine: Anaphylaxis [place]: Hives Reason for continued inpatient stay Substantial Risk for: inability to function Time Spent With Patient Time: Total time managing care of this patient today ____ minutes.
[2023-02-19] MEDS: QUEtiapine Fumarate 50 MG TABLET 150 MG PO (17:06)
[2023-02-19 18:00] VITALS: BP 109/74; PULSE 86; RESP 16; TEMP 36.6; O2SAT 98
[2023-02-19] MEDS: Artificial Tears 15 ML DROPS 2 DROP EYE-BOTH (18:21)
[2023-02-19] MEDS: cloNIDine HCL 0.1 MG TABLET PO (19:47)
[2023-02-19] MEDS: Famotidine 20 MG TABLET PO (19:48)
[2023-02-19] MEDS: Melatonin 3 MG TABLET PO (19:49)
[2023-02-19] MEDS: diphenhydrAMINE HCL 25 MG CAPSULE 75 MG PO (19:49)
[2023-02-19] MEDS: Multivitamin TABLET 1 TAB PO (19:49)
[2023-02-19] MEDS: traZODone HCL 100 MG TABLET PO (19:49)
[2023-02-19] MEDS: OLANZapine 10 MG TABLET 20 MG PO (19:50)
[2023-02-20] MEDS: Melatonin 3 MG TABLET PO ×2 (02:46→20:21)
--- NOTE | 2023-02-20 08:58 | HO.PSYCHPN ---
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 with Dr. Elaine who encourage is increase in propranolol in efforts to continue to help curb her impulsivity; that hopefully will be able to decrease clonazepam which is causing daytime sedation. Chronic conditions: 2. CHARLES positive Outpatient appointment made with Rheumatology February 20 -daytime fatigue; b/l peripheral edema; mild dyspnea on exertion Discussed with Dr. Hamilton who recommends and following labs ordered: -Urine protein creatinine ratio -Rheumatoid factor -CCP antibody 3. Bilateral peripheral edema (lower/upper extrem):? Medication side effect (Zyprexa/Depakote)?? vs organic origin some reduction w/ lowering of medications Zyprexa and depakote r/u autoimune 4. Complaint of chronic struggles with inspiration: lungs CTA; CXR unremarkable Pulmonary function test: results reviewed, discussed with Dr. Melchor -elevated CHARLES and abnromal PFTs with a mild restriction with a mild diffusion impairment. -could be explained by her elevated BMI. -at this time dr. Melchor reports given lab work, at this time it does not look like she has lupus nor sjogrens nor scleroderma. Her cxr was good. needs a sleep study as an out pt (daytime drowsiness bringing up the possibility of obstructive sleep apnea) does not need an inpt ct scan but should f/up with outpt pulmonary and rheumatology. -in further discussion, Dr. Melchor agrees that CHARLES needs further evaluation, 5.hx of Amenorrhea: Patient did get her menses on 01/11 Patient did have menses a few years ago while on control; has not had it since control discontinued about 2 years ago Labs: mostly WNL; will f/u with PCP/obgyn nurse PSYCHIATRIC IMPRESSION/DIAGNOSIS:. Impression: Patient is a fun, intelligent, cooperative and friendly person. When she gets triggered by something she can decompensate severely, dissociate and become physically aggressive.? Patient is now diagnosed with ASD, PTSD, and intermittent explosive disorder.? From [facility], she carried the diagnosis of Schizoaffective disorder and mention of borderline personality disorder.? Both of these have been ruled out.? 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 She is linear, logical, articulate, insightful and organized in her thinking; she is organized in her behaviors.? Patient can have intrusive thoughts but only when triggered and this does not seem to be OCD.? She can have some rigid thinking in line with ASD.? Many of her dysregulated moments come from her PTSD being exacerbated.? Patient has well tolerated decrease of Zyprexa, decrease of Depakote and discontinuation of perphenazine. Primary dx: ASD. Patient's father and grandmother maintain that she met her milestones in childhood. 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 During [place] [facility] [place] treatment center typically for people with autism; in [place] when at [facility], she carried a dx of ASD.? As observed on the unit, Patient frequently rocks back and forth, when standing or sitting, while talking to others or calming herself down.? Patient does not have a sense of a person's personal space and will get much to close to a person when talking; she is redirectable and apologizes but she is unaware she is doing it and does not get verbal cues when conversation participant is backing away or trying to end a conversation; though redirectable, she will again get too close, again unaware.? In the milieu with peers, While she will sometimes spend time in the vicinity of others, she is mostly alongside people and not directly interacting with them.? That said, she will directly interact with staff. Intermittent Flapping arms; rocking Patient does make eye contact, however she stares the entire time she is engaged. ? She can have a logical conversation Patient has a blunted affect and though she can smile and laugh, she is otherwise expressionless with blunted affect. Patient has in flexibility regarding food when it is not as expected patient can get severely dysregulated Patient has some hypo-reactivity to loud noises and crowds of people. Conversely, She does get jokes, even subtle ones. Symptoms have clearly made life functioning extremely difficult.? It is unclear if patient has had neuropsych testing. She did spend time at [facility]. Secondary dx: PTSD: Patient has a history of trauma from both childhood experiences, as well as trauma that occurred while on inpatient unit at [facility] and [place].? She has also been institutionalized since a young age, away from her mother and father, feeling abandoned. Possibly (likely?) reactive attachment disorder.? She has several regressed behaviors and some child-like interests. Regarding Dissociative Disorder:? Patient has episodes of depersonalization and derealization which the typically arise when triggered and during which time she will feel detached from herself, from her body and feel as if things are unreal and dream like, with out a sense of time; after they conclude and she is again in the present, she can be upset about some behaviors she engaged in during the dissociate period once made aware. Not BPD: Regarding past references to borderline personality disorder, Mental Health Nurse and team agree there have been no axis II traits expressed throughout her time in the hospital; none could be cleaned from records No psychotic illness: no psychotic symptoms past or present Med trials (via notes from [facility]) Depakote Zyprexa [place] Seroquel Lamictal Ziprasidone Invega Sustenna Abilify, Maintena, Astrada Risperdal BuSpar Lexapro Prozac Effexor Levothyroxine Haldol: Untolerated side effect Thorazine: Anaphylaxis [place]: Hives Reason for continued inpatient stay Substantial Risk for: inability to function Time Spent With Patient Time: Total time managing care of this patient today ____ minutes.
[2023-02-20 11:17] VITALS: BP 94/62; PULSE 72; RESP 16; TEMP 36.4; O2SAT 94
[2023-02-20] MEDS: Furosemide 20 MG TABLET PO ×2 (11:30→17:09)
[2023-02-20] MEDS: Amoxicillin/Potassium Clav 875 MG TABLET PO ×2 (11:30→20:21)
[2023-02-20] MEDS: OLANZapine 5 MG TABLET PO ×2 (11:30→14:38)
[2023-02-20] MEDS: Lactulose 20 GM/30 ML SOLUTION PO (11:30)
[2023-02-20] MEDS: Loratadine 10 MG TABLET PO (11:30)
[2023-02-20] MEDS: Propranolol HCL LA 80 MG CAP.SA.24H PO (11:30)
[2023-02-20] MEDS: Sennosides/Docusate Sodium TABLET 2 TAB PO ×2 (11:30→20:42)
[2023-02-20] MEDS: clonazePAM 1 MG TABLET 2 MG PO ×2 (11:30→14:38)
[2023-02-20] MEDS: Ziprasidone 20 MG CAPSULE PO (12:27)
[2023-02-20 13:37] VITALS: BP 126/62; PULSE 86; RESP 16; TEMP 36.4; O2SAT 95
[2023-02-20] MEDS: Divalproex Sodium Sprinkles 125 MG CAP.DR.SPR 1250 MG PO ×2 (14:38→20:19)
[2023-02-20 17:07] VITALS: BP 102/58; PULSE 80
[2023-02-20] MEDS: QUEtiapine Fumarate 50 MG TABLET 150 MG PO (17:55)
[2023-02-20 20:10] VITALS: BP 97/61; PULSE 80; TEMP 36.2; O2SAT 96
[2023-02-20] MEDS: diphenhydrAMINE HCL 25 MG CAPSULE 75 MG PO (20:20)
[2023-02-20] MEDS: cloNIDine HCL 0.1 MG TABLET PO (20:20)
[2023-02-20] MEDS: Famotidine 20 MG TABLET PO (20:21)
[2023-02-20] MEDS: traZODone HCL 100 MG TABLET PO (20:21)
[2023-02-20] MEDS: Multivitamin TABLET 1 TAB PO (20:21)
[2023-02-20] MEDS: OLANZapine 10 MG TABLET 20 MG PO (20:22)
[2023-02-21 07:00] VITALS: BMI 39.4
[2023-02-21] MEDS: Propranolol HCL LA 80 MG CAP.SA.24H PO (08:42)
[2023-02-21] MEDS: OLANZapine 5 MG TABLET PO ×2 (08:42→13:52)
[2023-02-21] MEDS: Sennosides/Docusate Sodium TABLET 2 TAB PO ×2 (08:42→20:29)
[2023-02-21] MEDS: Furosemide 20 MG TABLET PO ×2 (08:42→17:41)
[2023-02-21] MEDS: Loratadine 10 MG TABLET PO (08:42)
[2023-02-21] MEDS: Fluticasone Propionate Nasal 16 GM SPRAY 1 SPRAY NOSTRIL-B (08:42)
[2023-02-21] MEDS: Amoxicillin/Potassium Clav 875 MG TABLET PO (08:42)
[2023-02-21] MEDS: clonazePAM 1 MG TABLET 2 MG PO (08:42)
[2023-02-21] MEDS: Lactulose 20 GM/30 ML SOLUTION PO (08:42)
[2023-02-21 09:00] VITALS: BP 118/69; PULSE 78; RESP 16; TEMP 36.8; O2SAT 96
--- NOTE | 2023-02-21 09:58 | P.PNPSI_ITS ---
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 to work thus making it possible this benefit is also from a placebo effect. Given the fact that patient's QTC is intermittently mildly prolonged, will not schedule this medication at this time. However will leave it as a p.r.n. as patient's behaviors can get dangerous and Geodon seems to be helpful. Continue to discuss medication management with team. 5/ remains in good behavioral control for the past 3 and half days; meeting with team to discuss behavioral plan, progress and potential disposition options. Reviewed EKG Date of Service: 02/19/23; ?? QTc Int : 444 ms; ?Normal sinus rhythm; Normal ECG -discussed medication options with Dr. Elaine and will consider potentially trying Tegretol either with or without Depakote; conversely, patient has had good behavioral control for the past several days and there is hesitancy to make major medication changes. Will continue to consider 02/20 Patient remains in good behavioral control now for 4 days (today will be day 5). Patient is earning back privileges to be in the kitchen where she enjoys socializing. Discussed medications with Dr. Elaine who encourage is increase in propranolol in efforts to continue to help curb her impulsivity; that hopefully will be able to decrease clonazepam which is causing daytime sedation. 02/21 today will be day 6 of good behavioral control; patient feels overly sedated but worried about reduction at meds making her vulnerable to getting dysregulated. Pantry Chef agrees that she does seem overly sedated and will lower clonazepam. Now that propranolol has been increased it is quite possible she will not need as much clonazepam; BP/HR intermittently on the low side so will not increase propranolol at this time. Patient is also actively engaged in behavioral treatment plan and every day has been earning rewards for staying in behavioral control. As she remains stable will see if Seroquel can be lowered or shifted; continue to try to find a fine balance between keeping patient and milieu safe and not over medicating patient. -of note patient is gained considerable weight since 1st admission; ironically a number of medications have been lowered however this is most likely due to inactivity and overeating -will discontinue antibiotic started prophylactically for skin infection Chronic conditions: 2. CHARLES positive Outpatient appointment made with Rheumatology February 20 -daytime fatigue; b/l peripheral edema; mild dyspnea on exertion Discussed with Dr. Hamilton who recommends and following labs ordered: -Urine protein creatinine ratio -Rheumatoid factor -CCP antibody 3. Bilateral peripheral edema (lower/upper extrem):? Medication side effect (Zyprexa/Depakote)?? vs organic origin some reduction w/ lowering of medications Zyprexa and depakote r/u autoimune 4. Complaint of chronic struggles with inspiration: lungs CTA; CXR unremarkable Pulmonary function test: results reviewed, discussed with Dr. Melchor -elevated CHARLES and abnromal PFTs with a mild restriction with a mild diffusion impairment. -could be explained by her elevated BMI. -at this time dr. Melchor reports given lab work, at this time it does not look like she has lupus nor sjogrens nor scleroderma. Her cxr was good. needs a sleep study as an out pt (daytime drowsiness bringing up the possibility of obstructive sleep apnea) does not need an inpt ct scan but should f/up with outpt pulmonary and rheumatology. -in further discussion, Dr. 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 Impression: Patient is a fun, intelligent, cooperative and friendly person. When she gets triggered by something she can decompensate severely, dissociate and become physically aggressive.? Patient is now diagnosed with ASD, PTSD, and intermit tent explosive disorder.? From [facility], she carried the diagnosis of Schizoaffective disorder and mention of borderline personality disorder.? Both of these have been ruled out.? 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 She is linear, logical, articulate, insightful and organized in her thinking; she is organized in her behaviors.? Patient can have intrusive thoughts but only when triggered and this does not seem to be OCD.? She can have some rigid thinking in line with ASD.? Many of her dysregulated moments come from her PTSD being exacerbated.? Patient has well tolerated decrease of Zyprexa, decrease of Depakote and discontinuation of perphenazine. Primary dx: ASD. Patient's father and grandmother maintain that she met her milestones in childhood. 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 During childhood [place] [facility] center typically for people with autism; in [place] when at [facility], she carried a dx of ASD.? As observed on the unit, Patient frequently rocks back and forth, when standing or sitting, while talking to others or calming herself down.? Patient does not have a sense of a person's personal space and will get much to close to a person when talking; she is redirectable and apologizes but she is unaware she is doing it and does not get verbal cues when conversation participant is backing away or trying to end a conversation; though redirectable, she will again get too close, again unaware.? In the milieu with peers, While she will sometimes spend time in the vicinity of others, she is mostly alongside people and not directly intera cting with them.? That said, she will directly interact with staff. Intermittent Flapping arms; rocking Patient does make eye contact, however she stares the entire time she is engaged. ? She can have a logical conversation Patient has a blunted affect and though she can smile and laugh, she is othe rwise expressionless with blunted affect. Patient has in flexibility regarding food when it is not as expected patient can get severely dysregulated Patient has some hypo-reactivity to loud noises and crowds of people. Conversely, She does get jokes, even subtle ones. Symptoms have clearly made life functioning extremely difficult.? It is unclear if patient has had neuropsych testing. She did spend time at [facility]. Secondary dx: PTSD: Patient has a history of trauma from both childhood experiences, as well as trauma that occurred while on inpatient unit at [facility] and [place].? She has also been institutionalized since a young age, away from her mother and father, feeling abandoned. Possibly (likely?) reactive attachment disorder.? She has several regressed behaviors and some child-like interests. Regarding Dissociative Disorder:? Patient has episodes of depersonalization and derealization which the typically arise when triggered and during which time she will feel detached from herself, from her body and feel as if things are unreal and dream like, with out a sense of time; after they conclude and she is again in the present, she can be upset about some behaviors she engaged in during the dissociate period once made aware. Not BPD: Regarding past references to borderline personality disorder, Pantry Chef and team agree there have been no axis II traits expressed throughout her time in the hospital; none could be cleaned from records No psychotic illness: no psychotic symptoms past or present Med trials (via notes from [facility]) Depakote Zyprexa [place] Seroquel Lamictal Ziprasidone Invega Sustenna Abilify, Maintena, Astrada Risperdal BuSpar Lexapro Prozac Effexor Levothyroxine Haldol: Untolerated side effect Thorazine: Anaphylaxis Moorcroft: Hives Patient educated on: diagnosis, medication risk/benefits and therapeutic strategies Informed Consent: understands Reason for continued inpatient stay Substantial Risk for: inability to function Time Spent With Patient Time: Total time managing care of this patient today ____ minutes.
[2023-02-21] MEDS: ALPRAZolam 0.5 MG TABLET PO (10:49)
[2023-02-21 13:42] VITALS: BP 116/64; PULSE 78; RESP 16; TEMP 36.7; O2SAT 95
[2023-02-21] MEDS: Divalproex Sodium Sprinkles 125 MG CAP.DR.SPR 1250 MG PO ×2 (13:52→20:27)
[2023-02-21] MEDS: clonazePAM 0.5 MG TABLET 1.5 MG PO ×2 (14:51→20:28)
[2023-02-21 17:35] VITALS: BP 125/67; PULSE 80; TEMP 36.1
[2023-02-21] MEDS: QUEtiapine Fumarate 50 MG TABLET 150 MG PO (17:41)
[2023-02-21 20:15] VITALS: BP 92/54; PULSE 89; TEMP 36.3
[2023-02-21] MEDS: traZODone HCL 100 MG TABLET PO (20:27)
[2023-02-21] MEDS: OLANZapine 10 MG TABLET 20 MG PO (20:28)
[2023-02-21] MEDS: Multivitamin TABLET 1 TAB PO (20:28)
[2023-02-21] MEDS: diphenhydrAMINE HCL 25 MG CAPSULE 75 MG PO (20:28)
[2023-02-21] MEDS: Melatonin 3 MG TABLET PO (20:28)
[2023-02-21] MEDS: Famotidine 20 MG TABLET PO (20:28)
[2023-02-22] MEDS: Acetaminophen 325 MG TABLET 650 MG PO (02:32)
--- NOTE | 2023-02-22 10:13 | P.PNPSI_ITS ---
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 rhythm; Normal ECG -discussed medication options with Dr. Elaine and will consider potentially trying Tegretol either with or without Depakote; conversely, patient has had good behavioral control for the past several days and there is hesitancy to make major medication changes. Will continue to consider 02/20 Patient remains in good behavioral control now for 4 days (today will be day 5). Patient is earning back privileges to be in the kitchen where she enjoys socializing. Discussed medications with Dr. Elaine who encourage is increase in propranolol in efforts to continue to help curb her impulsivity; that hopefully will be able to decrease clonazepam which is causing daytime sedation. 02/21 today will be day 6 of good behavioral control; patient feels overly sedated but worried about reduction at meds making her vulnerable to getting dysregulated. Electric Hoist Operator agrees that she does seem overly sedated and will lower clonazepam. Now that propranolol has been increased it is quite possible she will not need as much clonazepam; BP/HR intermittently on the low side so will not increase propranolol at this time. Patient is also actively engaged in behavioral treatment plan and every day has been earning rewards for staying in behavioral control. As she remains stable will see if Seroquel can be lowered or shifted; continue to try to find a fine balance between keeping patient and milieu safe and not over medicating patient. -of note patient is gained considerable weight since 1st admission; ironically a number of medications have been lowered however this is most likely due to inactivity and overeating -will discontinue antibiotic started prophylactically for skin infection 02/22 patient continues to remain in good behavioral and impulse control; still sedated. However hesitant to change medications over the weekend Chronic conditions: 2. CHARLES positive Outpatient appointment made with Rheumatology February 20 -daytime fatigue; b/l peripheral edema; mild dyspnea on exertion Discussed with Dr. Hamilton who recommends and following labs ordered: -Urine protein creatinine ratio -Rheumatoid factor -CCP antibody 3. Bilateral peripheral edema (lower/upper extrem):? Medication side effect (Zyprexa/Depakote)?? vs organic origin some reduction w/ lowering of medications Zyprexa and depakote r/u autoimune 4. Complaint of chronic struggles with inspiration: lungs CTA; CXR unremarkable Pulmonary function test: results reviewed, discussed with Dr. Melchor -elevated CHARLES and abnromal PFTs with a mild restriction with a mild diffusion impairment. -could be explained by her elevated BMI. -at this time dr. Melchor reports given lab work, at this time it does not look like she has lupus nor sjogrens nor scleroderma. Her cxr was good. needs a sleep study as an out pt (daytime drowsiness bringing up the possibility of obstructive sleep apnea) does not need an inpt ct scan but should f/up with outpt pulmonary and rheumatology. -in further discussion, Dr. 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 Impression: Patient is a fun, intelligent, cooperative and friendly person. When she gets triggered by something she can decompensate severely, dissociate and become physically aggressive.? Patient is now diagnosed with ASD, PTSD, and intermittent explosive disorder.? From [facility], she carried the diagnosis of Schizoaffective disorder and mention of borderline personality disorder.? Both of these have been ruled out.? 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 She is linear, logical, articulate, insightful and organized in her thinking; she is organized in her behaviors.? Patient can have intrusive thoughts but only when triggered and this does not seem to be OCD.? She can have some rigid thinking in line with ASD.? Many of her dysregulated moments come from her PTSD being exacerbated.? Patient has well tolerated dec rease of Zyprexa, decrease of Depakote and discontinuation of perphenazine. Primary dx: ASD. Patient's father and grandmother maintain that she met her milestones in childhood. 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 During childhood she attended [facility] [employer] [facility] [place], treatment center typically for people with autism; in [place] when at [facility], she carried a dx of ASD.? As observed on the unit, Patient frequently rocks back and forth, when standing or sitting, while talking to others or calming herself down.? Patient does not have a sense of a person's personal space and will get much to close to a person when talking; she is redirectable and apologizes but she is unaware she is doing it and does not get verbal cues when conversation participant is backing away or trying to end a conversation; though redirectable, she will again get too close, again unaware.? In the milieu with peers, While she will sometimes spend time in the vicinity of others, she is mostly alongside people and not directly interacting with them.? That said, she will directly interact with staff. Intermittent Flapping arms; rocking Patient does make eye contact, however she stares the entire time she is engaged. ? She can have a logical conversation Patient has a blunted affect and though she can smile and laugh, she is otherwise expressionless with blunted affect. Patient has in flexibility regarding food when it is not as expected patient can get severely dysregulated Patient has some hypo-reactivity to loud noises and crowds of people. Conversely, She does get jokes, even subtle ones. Symptoms have clearly made life functioning extremely difficult.? It is unclear if patient has had neuropsych testing. She did spend time at [facility]. Secondary dx: PTSD: Patient has a history of trauma from both childhood experiences, as well as trauma that occurred while on inpatient unit at [facility] and [place].? She has also been institutionalized since a young age, away from her mother and father, feeling abandoned. Possibly (likely?) reactive attachment disorder.? She has several regressed behaviors and some child-like interests. Regarding Dissociative Disorder:? Patient has episodes of depersonalization and derealization which the typically arise when triggered and during which time she will feel detached from herself, from her body and feel as if things are unreal and dream like, with out a sense of time; after they conclude and she is again in the present, she can be upset about some behaviors she engaged in during the dissociate period once made aware. Not BPD: Regarding past references to borderline personality disorder, Electric Hoist Operator and team agree there have been no axis II traits expressed throughout her time in the hospital; none could be cleaned from records No psychotic illness: no psychotic symptoms past or present Med trials (via notes from [facility]) Depakote Zyprexa Coppock Seroquel Lamictal Ziprasidone Invega Carmel Gutiérreza, [place] Risperdal BuSpar Lexapro Prozac Effexor Levothyroxine Haldol: Untolerated side effect Thorazine: Anaphylaxis Coppock: Hives Patient educated on: diagnosis and medication risk/benefits Informed Consent: understands Reason for continued inpatient stay Substantial Risk for: inability to function Time Spent With Patient Time: Total time managing care of this patient today ____ minutes.
[2023-02-22 12:33] VITALS: BP 126/72; PULSE 78; RESP 18; TEMP 37.1; O2SAT 95
--- NOTE | 2023-02-22 12:34 | PC.NURSE ---
pt refused to wake for vitals of medications during morning med pass. pt slept until 12:30pm; am vitals and ordered medications not administered until 12:40pm
[2023-02-22] MEDS: Sennosides/Docusate Sodium TABLET 2 TAB PO ×2 (12:36→20:18)
[2023-02-22] MEDS: clonazePAM 0.5 MG TABLET 1.5 MG PO (12:36)
[2023-02-22] MEDS: Lactulose 20 GM/30 ML SOLUTION PO (12:36)
[2023-02-22] MEDS: OLANZapine 5 MG TABLET PO (12:36)
[2023-02-22] MEDS: Loratadine 10 MG TABLET PO (12:36)
[2023-02-22] MEDS: Furosemide 20 MG TABLET PO ×2 (12:36→17:45)
[2023-02-22] MEDS: Propranolol HCL LA 80 MG CAP.SA.24H PO (12:36)
[2023-02-22] MEDS: Fluticasone Propionate Nasal 16 GM SPRAY 1 SPRAY NOSTRIL-B (12:38)
[2023-02-22] MEDS: Divalproex Sodium Sprinkles 125 MG CAP.DR.SPR 1250 MG PO ×2 (14:25→20:18)
[2023-02-22] MEDS: QUEtiapine Fumarate 50 MG TABLET 150 MG PO (17:45)
[2023-02-22 17:56] VITALS: BP 97/55; PULSE 79
[2023-02-22] MEDS: cloNIDine HCL 0.1 MG TABLET PO (20:17)
[2023-02-22] MEDS: traZODone HCL 100 MG TABLET PO (20:17)
[2023-02-22] MEDS: Famotidine 20 MG TABLET PO (20:18)
[2023-02-22] MEDS: Melatonin 3 MG TABLET PO (20:18)
[2023-02-22] MEDS: Multivitamin TABLET 1 TAB PO (20:18)
[2023-02-22] MEDS: diphenhydrAMINE HCL 25 MG CAPSULE 75 MG PO (20:18)
[2023-02-22] MEDS: OLANZapine 10 MG TABLET 20 MG PO (20:18)
[2023-02-23] MEDS: Sennosides/Docusate Sodium TABLET 2 TAB PO ×2 (11:43→20:34)
[2023-02-23] MEDS: clonazePAM 0.5 MG TABLET 1.5 MG PO ×3 (11:43→20:35)
[2023-02-23] MEDS: OLANZapine 5 MG TABLET PO ×2 (11:43→15:36)
[2023-02-23] MEDS: Loratadine 10 MG TABLET PO (11:43)
[2023-02-23 12:00] VITALS: BP 103/62; PULSE 83; RESP 16; TEMP 36.3; O2SAT 96
[2023-02-23] MEDS: Furosemide 20 MG TABLET PO ×2 (12:05→15:36)
[2023-02-23] MEDS: Propranolol HCL LA 80 MG CAP.SA.24H PO (12:05)
[2023-02-23] MEDS: ALPRAZolam 0.5 MG TABLET PO (12:43)
[2023-02-23 13:00] VITALS: RESP 18
[2023-02-23] MEDS: Ziprasidone Mesylate 20 MG VIAL IM (13:05)
[2023-02-23] MEDS: Fluticasone Propionate Nasal 16 GM SPRAY 1 SPRAY NOSTRIL-B (13:08)
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
[2023-02-23] MEDS: Divalproex Sodium Sprinkles 125 MG CAP.DR.SPR 1250 MG PO ×2 (15:45→20:33)
[2023-02-23] MEDS: QUEtiapine Fumarate 50 MG TABLET 150 MG PO (16:49)
[2023-02-23] MEDS: diphenhydrAMINE HCL 25 MG CAPSULE PO (16:50)
[2023-02-23 18:00] VITALS: BP 109/69; PULSE 78; RESP 16; TEMP 36.6; O2SAT 99
[2023-02-23] MEDS: diphenhydrAMINE HCL 25 MG CAPSULE 75 MG PO (20:34)
[2023-02-23] MEDS: Famotidine 20 MG TABLET PO (20:34)
[2023-02-23] MEDS: OLANZapine 10 MG TABLET 20 MG PO (20:35)
[2023-02-23] MEDS: Multivitamin TABLET 1 TAB PO (20:35)
[2023-02-23] MEDS: cloNIDine HCL 0.1 MG TABLET PO (20:35)
[2023-02-23] MEDS: traZODone HCL 100 MG TABLET PO (20:35)
[2023-02-23] MEDS: Melatonin 3 MG TABLET PO (20:35)
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
[2023-02-24] MEDS: OLANZapine 5 MG TABLET PO ×2 (08:12→14:17)
[2023-02-24] MEDS: Fluticasone Propionate Nasal 16 GM SPRAY 1 SPRAY NOSTRIL-B (08:12)
[2023-02-24] MEDS: Furosemide 20 MG TABLET PO ×2 (08:12→17:54)
[2023-02-24] MEDS: Loratadine 10 MG TABLET PO (08:13)
[2023-02-24] MEDS: Propranolol HCL LA 80 MG CAP.SA.24H PO (08:13)
[2023-02-24] MEDS: Sennosides/Docusate Sodium TABLET 2 TAB PO ×2 (08:13→19:36)
[2023-02-24] MEDS: clonazePAM 0.5 MG TABLET 1.5 MG PO ×2 (08:13→14:17)
[2023-02-24 08:21] VITALS: BP 125/65; PULSE 79; RESP 18; TEMP 36.4; O2SAT 97
--- NOTE | 2023-02-24 11:00 | PC.NURSE ---
Late entry. Patient became agitated after requesting a shower yesterday. Patient claimed that there were voices telling her to do things that she didn't want to do. Patient was redirected to her room and requested an IM injection which was ordered and administered. Patient then went out for a fresh air break and then was able to go to her room and de-escalate herself and napped. Patient complained of a red, itchy oozing right eye, MD aware, questioning conjunctivitis.
[2023-02-24 13:00] VITALS: BP 95/66; PULSE 79; RESP 16; TEMP 36; O2SAT 99
--- NOTE | 2023-02-24 13:29 | PM.EVENT ---
Event Note Date of Service: 02/24/23 Event Note: 23 year old female admitted to psychiatry with consult placed to hospital service for evaluation of conjunctivitis. Pt reports itchiness of the right eye with clear drainage yesterday. Reports itching [the eye] like crazy . This mornign eye very red, crusted shut with increased drainage. No blurred vision, pain. On exam, there is conjunctival injection right eye with mild swelling/faint erythema periorbitally, non tender to palpation. Eye watering. Recommend single use warm compresses throughout the day over the eye, wash hands frequently. Corticosporin eye drops q4h while awake. Treat left eye if she develops symptoms. Avoid touching the eye. Thank you for allowing me to participate in this consult. Signing off at this time. Please do not hesitate to call for further questions. Time Spent With Patient Time: Total time managing care of this patient today ____ minutes.
[2023-02-24 13:58] LABS: UPreg QC Valid YES; Urine Pregnancy NEGATIVE (NEGATIVE)
[2023-02-24] MEDS: Divalproex Sodium Sprinkles 125 MG CAP.DR.SPR 1250 MG PO ×2 (14:17→19:39)
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
[2023-02-24] MEDS: Ziprasidone Mesylate 20 MG VIAL IM (15:35)
[2023-02-24 15:37] LABS: CT PCR NOT DETECTED (Not Detect.); NG PCR NOT DETECTED (Not Detect.)
--- NOTE | 2023-02-24 16:07 | PC.NURSE ---
PT became agitated, requesting an IM Geodon shot due to agitation. 20mg ordered and given in the r deltoid.
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
--- NOTE | 2023-02-24 16:17 | PC.NURSE ---
PA saw pt due to right eye redness and inflammation. RX drops ordered along with intermittent warm compresses to affected eye.
[2023-02-24] MEDS: QUEtiapine Fumarate 50 MG TABLET 150 MG PO (17:54)
[2023-02-24 18:00] VITALS: BP 98/68; PULSE 79; RESP 16; TEMP 36; O2SAT 98
[2023-02-24] MEDS: Multivitamin TABLET 1 TAB PO (19:35)
[2023-02-24] MEDS: diphenhydrAMINE HCL 25 MG CAPSULE 75 MG PO (19:35)
[2023-02-24] MEDS: Famotidine 20 MG TABLET PO (19:36)
[2023-02-24] MEDS: cloNIDine HCL 0.1 MG TABLET PO (19:36)
[2023-02-24] MEDS: Melatonin 3 MG TABLET PO ×2 (19:36→23:21)
[2023-02-24] MEDS: traZODone HCL 100 MG TABLET PO (19:37)
[2023-02-24] MEDS: OLANZapine 10 MG TABLET 20 MG PO (19:38)
[2023-02-24] MEDS: clonazePAM 1 MG TABLET 2 MG PO (19:39)
[2023-02-24] MEDS: traZODone HCL 50 MG TABLET PO (21:54)
[2023-02-24] MEDS: ALPRAZolam 0.5 MG TABLET PO (21:55)
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
[2023-02-25] MEDS: OLANZapine 5 MG TABLET PO ×2 (10:58→14:32)
[2023-02-25] MEDS: Propranolol HCL LA 80 MG CAP.SA.24H PO (10:58)
[2023-02-25] MEDS: Furosemide 20 MG TABLET PO ×2 (10:58→17:30)
[2023-02-25] MEDS: Ziprasidone 20 MG CAPSULE PO (10:58)
[2023-02-25] MEDS: clonazePAM 1 MG TABLET 2 MG PO ×3 (10:58→18:22)
[2023-02-25] MEDS: ALPRAZolam 0.5 MG TABLET PO ×2 (10:59→15:26)
[2023-02-25] MEDS: Loratadine 10 MG TABLET PO (10:59)
[2023-02-25] MEDS: Sennosides/Docusate Sodium TABLET 2 TAB PO ×2 (10:59→19:10)
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
[2023-02-25] MEDS: Lactulose 20 GM/30 ML SOLUTION PO (11:00)
[2023-02-25] MEDS: Fluticasone Propionate Nasal 16 GM SPRAY 1 SPRAY NOSTRIL-B (11:01)
--- NOTE | 2023-02-25 11:29 | PM.EVENT ---
Event Note Date of Service: 02/25/23 Event Note: Seen in follow up for right eye infection. Pt continues with mild periorbital edema with increased swelling in the upper lid and mild erythema. There is increased purulent drainage from the eye with conjunctival injection. Today, patient reports blurred vision. No pain with eye movement or pain in the globe of the eye. Would recommend continuing corticosporin drops as advised and disposable warm compresses. Add doxycycline 100mg PO BID x 7 days. Will follow. Time Spent With Patient Time: Total time managing care of this patient today ____ minutes.
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
[2023-02-25] MEDS: Doxycycline Monohydrate 100 MG CAPSULE PO (14:31)
[2023-02-25] MEDS: Divalproex Sodium Sprinkles 125 MG CAP.DR.SPR 1250 MG PO ×2 (14:32→19:10)
[2023-02-25 14:43] VITALS: BP 117/63; PULSE 72; RESP 16; TEMP 36.7; O2SAT 95
[2023-02-25] MEDS: Acetaminophen 325 MG TABLET 650 MG PO (14:55)
[2023-02-25] MEDS: QUEtiapine Fumarate 50 MG TABLET 150 MG PO (17:30)
[2023-02-25 19:05] VITALS: BP 99/58; PULSE 85; TEMP 36.4
[2023-02-25] MEDS: Famotidine 20 MG TABLET PO (19:11)
[2023-02-25] MEDS: Multivitamin TABLET 1 TAB PO (19:11)
[2023-02-25] MEDS: diphenhydrAMINE HCL 25 MG CAPSULE 75 MG PO (19:11)
[2023-02-25] MEDS: OLANZapine 10 MG TABLET 20 MG PO (19:12)
[2023-02-25] MEDS: Melatonin 3 MG TABLET PO (19:12)
[2023-02-25] MEDS: cloNIDine HCL 0.1 MG TABLET PO (19:19)
[2023-02-25] MEDS: traZODone HCL 100 MG TABLET PO (19:46)
[2023-02-26 09:18] VITALS: BP 114/73; PULSE 73; RESP 16; TEMP 36.9; O2SAT 95
[2023-02-26] MEDS: Furosemide 20 MG TABLET PO ×2 (09:26→16:00)
[2023-02-26] MEDS: clonazePAM 1 MG TABLET 2 MG PO ×3 (09:26→18:07)
[2023-02-26] MEDS: Propranolol HCL LA 80 MG CAP.SA.24H PO (09:26)
[2023-02-26] MEDS: Doxycycline Monohydrate 100 MG CAPSULE PO ×2 (09:26→20:24)
[2023-02-26] MEDS: Loratadine 10 MG TABLET PO (09:27)
[2023-02-26] MEDS: Fluticasone Propionate Nasal 16 GM SPRAY 1 SPRAY NOSTRIL-B (09:27)
[2023-02-26] MEDS: Lactulose 20 GM/30 ML SOLUTION PO (09:27)
[2023-02-26] MEDS: OLANZapine 5 MG TABLET PO ×2 (09:27→13:13)
[2023-02-26] MEDS: Divalproex Sodium Sprinkles 125 MG CAP.DR.SPR 1250 MG PO ×2 (13:13→20:23)
[2023-02-26 13:24] VITALS: BP 115/83; PULSE 72; RESP 16; TEMP 36.8; O2SAT 95
--- NOTE | 2023-02-26 13:46 | PM.EVENT ---
Event Note Date of Service: 02/26/23 Event Note: Patient seen in follow up for bacterial conjunctivitis/preseptal cellulitis. Still with mild erythema and periorbital swelling, improved since yesterday. No purulent drainage observed today and conjunctival injection nearly resolved. No blurred vision or pain with eye movements. Improved with doxycyline and corticosporin drops. Likely started as allergic conjunctivitis and bacteria introduced given pruritus and itching. Continue warm compresses, pataday drops. Continue corticosporin drops and doxycycline x 7 days. Avoid touching eyes. Thank you for allowing me to participate in this consult. Signing off at this time. Please do not hesitate to call for further questions. Time Spent With Patient Time: Total time managing care of this patient today ____ minutes.
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
[2023-02-26] MEDS: QUEtiapine Fumarate 50 MG TABLET 150 MG PO (18:06)
[2023-02-26] MEDS: OLANZapine 10 MG TABLET 20 MG PO (20:23)
[2023-02-26] MEDS: diphenhydrAMINE HCL 25 MG CAPSULE 75 MG PO (20:23)
[2023-02-26] MEDS: Melatonin 3 MG TABLET PO (20:23)
[2023-02-26] MEDS: cloNIDine HCL 0.1 MG TABLET PO (20:24)
[2023-02-26] MEDS: Famotidine 20 MG TABLET PO (20:24)
[2023-02-26] MEDS: traZODone HCL 100 MG TABLET PO (20:24)
[2023-02-26] MEDS: Multivitamin TABLET 1 TAB PO (20:24)
[2023-02-26] MEDS: Sennosides/Docusate Sodium TABLET 2 TAB PO (20:24)
[2023-02-26 20:30] VITALS: BP 130/77; PULSE 86
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
[2023-02-27] MEDS: Lactulose 20 GM/30 ML SOLUTION PO (11:35)
[2023-02-27] MEDS: Fluticasone Propionate Nasal 16 GM SPRAY 1 SPRAY NOSTRIL-B (11:35)
[2023-02-27] MEDS: clonazePAM 1 MG TABLET 2 MG PO (11:37)
[2023-02-27] MEDS: Loratadine 10 MG TABLET PO ×2 (11:37→12:22)
[2023-02-27] MEDS: Propranolol HCL LA 80 MG CAP.SA.24H PO (11:37)
[2023-02-27] MEDS: Furosemide 20 MG TABLET PO ×2 (11:37→16:03)
[2023-02-27] MEDS: Sennosides/Docusate Sodium TABLET 2 TAB PO ×2 (11:37→19:29)
[2023-02-27] MEDS: Doxycycline Monohydrate 100 MG CAPSULE PO ×2 (11:38→19:29)
[2023-02-27] MEDS: OLANZapine 5 MG TABLET PO ×2 (11:38→16:03)
[2023-02-27] MEDS: Ziprasidone 20 MG CAPSULE PO (11:38)
[2023-02-27] MEDS: Divalproex Sodium Sprinkles 125 MG CAP.DR.SPR 1000 MG PO ×2 (16:03→19:30)
[2023-02-27] MEDS: Propranolol HCL 10 MG TABLET PO ×2 (16:03→19:27)
[2023-02-27] MEDS: Sodium Phosphate,Mono-Dibasic 133 ML ENEMA PR (16:43)
[2023-02-27] MEDS: clonazePAM 0.5 MG TABLET 1.5 MG PO (17:40)
[2023-02-27] MEDS: QUEtiapine Fumarate 50 MG TABLET 150 MG PO (17:40)
[2023-02-27] MEDS: NaPROXEN 500 MG TABLET PO (17:41)
[2023-02-27] MEDS: ALPRAZolam 0.5 MG TABLET PO (17:41)
[2023-02-27 18:51] VITALS: BP 122/56; PULSE 88; RESP 16; TEMP 37; O2SAT 96
[2023-02-27] MEDS: Melatonin 3 MG TABLET PO (19:28)
[2023-02-27] MEDS: Multivitamin TABLET 1 TAB PO (19:28)
[2023-02-27] MEDS: diphenhydrAMINE HCL 25 MG CAPSULE 75 MG PO (19:28)
[2023-02-27] MEDS: traZODone HCL 100 MG TABLET PO (19:28)
[2023-02-27] MEDS: OLANZapine 10 MG TABLET 20 MG PO (19:29)
[2023-02-27] MEDS: Famotidine 20 MG TABLET PO (19:29)
[2023-02-28 07:00] VITALS: BMI 40.1
[2023-02-28 09:00] VITALS: BP 124/86; PULSE 82; RESP 18; TEMP 36.7; O2SAT 98
--- NOTE | 2023-02-28 09:59 | HO.PSYCHPN ---
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 Abilify, Maintena, [place] Risperdal BuSpar Lexapro Prozac Effexor Levothyroxine Haldol: Untolerated side effect Thorazine: Anaphylaxis [place]: Hives Reason for continued inpatient stay Substantial Risk for: inability to function Time Spent With Patient Time: Total time managing care of this patient today ____ minutes.
[2023-02-28] MEDS: Furosemide 20 MG TABLET PO ×2 (10:53→16:38)
[2023-02-28] MEDS: Propranolol HCL LA 80 MG CAP.SA.24H PO (10:53)
[2023-02-28] MEDS: Propranolol HCL 10 MG TABLET PO ×3 (10:53→19:54)
[2023-02-28] MEDS: Sennosides/Docusate Sodium TABLET 2 TAB PO ×2 (10:53→19:56)
[2023-02-28] MEDS: Loratadine 10 MG TABLET PO (10:54)
[2023-02-28] MEDS: OLANZapine 5 MG TABLET PO ×2 (10:54→14:25)
[2023-02-28] MEDS: Divalproex Sodium Sprinkles 125 MG CAP.DR.SPR 1000 MG PO ×2 (10:57→19:57)
[2023-02-28] MEDS: Doxycycline Monohydrate 100 MG CAPSULE PO ×2 (11:02→19:55)
[2023-02-28 13:00] VITALS: BP 118/74; PULSE 80
[2023-02-28] MEDS: clonazePAM 0.5 MG TABLET 1.5 MG PO ×2 (14:25→17:46)
[2023-02-28] MEDS: Fluticasone Propionate Nasal 16 GM SPRAY 1 SPRAY NOSTRIL-B (14:30)
[2023-02-28] MEDS: QUEtiapine Fumarate 50 MG TABLET 150 MG PO (16:38)
[2023-02-28 16:42] VITALS: BP 112/58; PULSE 80; RESP 18; TEMP 36.1; O2SAT 96
[2023-02-28] MEDS: Sodium Phosphate,Mono-Dibasic 133 ML ENEMA PR (18:40)
[2023-02-28] MEDS: Melatonin 3 MG TABLET PO (19:55)
[2023-02-28] MEDS: traZODone HCL 100 MG TABLET PO (19:55)
[2023-02-28] MEDS: Multivitamin TABLET 1 TAB PO (19:55)
[2023-02-28] MEDS: diphenhydrAMINE HCL 25 MG CAPSULE 75 MG PO (19:55)
[2023-02-28] MEDS: OLANZapine 10 MG TABLET 20 MG PO (19:56)
[2023-02-28] MEDS: Famotidine 20 MG TABLET PO (19:57)
[2023-03-01 09:50] VITALS: BP 121/75; PULSE 86; RESP 16; TEMP 36.2; O2SAT 99
[2023-03-01] MEDS: Propranolol HCL LA 80 MG CAP.SA.24H PO (09:54)
[2023-03-01] MEDS: clonazePAM 0.5 MG TABLET 1.5 MG PO ×3 (09:54→19:59)
[2023-03-01] MEDS: Doxycycline Monohydrate 100 MG CAPSULE PO ×2 (09:54→19:59)
[2023-03-01] MEDS: Sennosides/Docusate Sodium TABLET 2 TAB PO ×2 (09:55→20:00)
[2023-03-01] MEDS: Propranolol HCL 10 MG TABLET PO ×3 (09:55→19:58)
[2023-03-01] MEDS: Furosemide 20 MG TABLET PO ×2 (09:55→16:43)
[2023-03-01] MEDS: Loratadine 10 MG TABLET PO (09:55)
[2023-03-01] MEDS: Fluticasone Propionate Nasal 16 GM SPRAY 1 SPRAY NOSTRIL-B (09:58)
[2023-03-01] MEDS: OLANZapine 5 MG TABLET PO ×2 (10:12→14:59)
--- NOTE | 2023-03-01 11:54 | HO.PSYCHPN ---
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 the dissociate period once made aware. Not BPD: Regarding past references to borderline personality disorder, Melt Superintendant and team agree there have been no axis II traits expressed throughout her time in the hospital; none could be cleaned from records No psychotic illness: no psychotic symptoms past or present Med trials (via notes from [facility]) Depakote Zyprexa [place] Seroquel Lamictal Ziprasidone Invega Sustenna Abilify, Maintena, Astrada Risperdal BuSpar Lexapro Prozac Effexor Levothyroxine Haldol: Untolerated side effect Thorazine: Anaphylaxis [place]: Hives Informed Consent: does not understand Reason for continued inpatient stay Substantial Risk for: harm to self, harm to others and rapid decompensation Time Spent With Patient Time: Total time managing care of this patient today ____ minutes.
[2023-03-01 13:00] VITALS: BP 112/57; PULSE 84; RESP 16; TEMP 36.2; O2SAT 97
[2023-03-01] MEDS: Divalproex Sodium Sprinkles 125 MG CAP.DR.SPR 1000 MG PO ×2 (13:27→19:58)
[2023-03-01] MEDS: Ziprasidone Mesylate 20 MG VIAL IM (15:12)
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
--- NOTE | 2023-03-01 15:48 | PM.EVENT ---
Event Note Date of Service: 03/01/23 Event Note: Pt expressing frustration, sadness and discouragement with not having a discharge date today. Requested prn Geodon IM 20 mg which was given. After injection, pt was in the group room exhibiting anger, aggression. Code assist called by team, given 50 mg Benadryl IM and restraint chair was used to assist pt in de-escalation. Time Spent With Patient Time: Total time managing care of this patient today ____ minutes.
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
[2023-03-01] MEDS: diphenhydrAMINE HCL 50 MG/ML VIAL IM (16:20)
--- NOTE | 2023-03-01 16:25 | PM.EVENT ---
Event Note Date of Service: 03/01/23 Event Note: Pt seen to evaluate after restraint. She is with one to one. Awake, alert, with sedation. Able to communicate her needs. No verbalizations of pain or distress. She reports she has thirst-given walt heber with ice. She asks to be allowed to go to bed to sleep. Team to begin release for return to her room. Time Spent With Patient Time: Total time managing care of this patient today ____ minutes.
[2023-03-01] MEDS: QUEtiapine Fumarate 50 MG TABLET 150 MG PO (16:39)
[2023-03-01 18:00] VITALS: BP 122/69; PULSE 82; RESP 16; TEMP 36.6; O2SAT 97
[2023-03-01] MEDS: Famotidine 20 MG TABLET PO (19:58)
[2023-03-01] MEDS: traZODone HCL 100 MG TABLET PO (19:58)
[2023-03-01] MEDS: OLANZapine 10 MG TABLET 20 MG PO (19:59)
[2023-03-01] MEDS: Multivitamin TABLET 1 TAB PO (19:59)
[2023-03-01] MEDS: Melatonin 3 MG TABLET PO (20:00)
[2023-03-01] MEDS: diphenhydrAMINE HCL 25 MG CAPSULE 75 MG PO (20:00)
[2023-03-01] MEDS: Ibuprofen 600 MG TABLET PO (22:35)
--- NOTE | 2023-03-01 22:37 | PC.NURSE ---
Addendum entered by Latrell Gold RN 03/01/23 22:42: PRN Ibuprofen given with positive effect. Original Note: Pt reports lower back pain of 7/10, No bruising/redness noted at pain site. manager call center provider Lou Bryson made aware. Hospitalist, Dr. Roche was up to see pt but Pt was sleeping.
[2023-03-02] MEDS: Propranolol HCL LA 80 MG CAP.SA.24H PO (08:01)
[2023-03-02] MEDS: Acetaminophen 325 MG TABLET 650 MG PO (08:01)
[2023-03-02] MEDS: Lactulose 20 GM/30 ML SOLUTION PO (08:01)
[2023-03-02] MEDS: Divalproex Sodium Sprinkles 125 MG CAP.DR.SPR 1000 MG PO ×2 (08:01→20:35)
[2023-03-02] MEDS: OLANZapine 5 MG TABLET PO ×2 (08:01→14:43)
[2023-03-02] MEDS: Propranolol HCL 10 MG TABLET PO ×3 (08:02→21:39)
[2023-03-02] MEDS: Doxycycline Monohydrate 100 MG CAPSULE PO ×2 (08:02→19:16)
[2023-03-02] MEDS: clonazePAM 0.5 MG TABLET 1.5 MG PO ×3 (08:02→19:15)
[2023-03-02] MEDS: Sennosides/Docusate Sodium TABLET 2 TAB PO ×2 (08:02→21:38)
[2023-03-02] MEDS: Loratadine 10 MG TABLET PO (08:02)
[2023-03-02] MEDS: Furosemide 20 MG TABLET PO ×2 (08:02→17:30)
[2023-03-02] MEDS: Fluticasone Propionate Nasal 16 GM SPRAY 1 SPRAY NOSTRIL-B (08:03)
[2023-03-02 08:19] VITALS: BP 126/76; PULSE 83; RESP 16; TEMP 36.8; O2SAT 96
--- NOTE | 2023-03-02 11:43 | HO.PSYCHPN ---
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 time she will feel detached from herself, from her body and feel as if things are unreal and dream like, with out a sense of time; after they conclude and she is again in the present, she can be upset about some behaviors she engaged in during the dissociate period once made aware. Not BPD: Regarding past references to borderline personality disorder, Cleat Maker and team agree there have been no axis II traits expressed throughout her time in the hospital; none could be cleaned from records No psychotic illness: no psychotic symptoms past or present Med trials (via notes from [facility]) Depakote Zyprexa [place] Seroquel Lamictal Ziprasidone [place] Sustenna Abilify, Maintena, [place] Risperdal BuSpar Lexapro Prozac Effexor Levothyroxine Haldol: Untolerated side effect Thorazine: Anaphylaxis [place]: Hives Reason for continued inpatient stay Substantial Risk for: harm to others and rapid decompensation Time Spent With Patient Time: Total time managing care of this patient today ____ minutes.
[2023-03-02 13:00] VITALS: BP 117/68; PULSE 86; RESP 16; TEMP 36.8; O2SAT 98
[2023-03-02] MEDS: Ibuprofen 600 MG TABLET PO ×2 (13:01→18:55)
[2023-03-02] MEDS: NaPROXEN 500 MG TABLET PO (14:44)
[2023-03-02 18:00] VITALS: BP 118/80; PULSE 80; RESP 18; TEMP 36.6; O2SAT 99
[2023-03-02] MEDS: QUEtiapine Fumarate 50 MG TABLET 150 MG PO (19:15)
[2023-03-02] MEDS: Melatonin 3 MG TABLET PO (21:36)
[2023-03-02] MEDS: OLANZapine 10 MG TABLET 20 MG PO (21:37)
[2023-03-02] MEDS: diphenhydrAMINE HCL 25 MG CAPSULE 75 MG PO (21:37)
[2023-03-02] MEDS: Ziprasidone 20 MG CAPSULE PO (21:37)
[2023-03-02] MEDS: ALPRAZolam 0.5 MG TABLET PO (21:38)
[2023-03-02] MEDS: traZODone HCL 50 MG TABLET PO (21:38)
[2023-03-02] MEDS: Multivitamin TABLET 1 TAB PO (21:38)
[2023-03-02] MEDS: Famotidine 20 MG TABLET PO (21:39)
[2023-03-02] MEDS: traZODone HCL 100 MG TABLET PO (21:39)
[2023-03-02] MEDS: Cyclobenzaprine HCl 10 MG TABLET PO (23:10)
--- NOTE | 2023-03-02 23:15 | PC.NURSE ---
PT c/o right lower back pain, xrays negative. Visible bruising, mild swelling noted. cork grinder contacted, Flexeril 10mg 1x dose ordered, effect pending.
[2023-03-03] MEDS: Magnesium Hydrox/Alum Hydrox 30 ML ORAL.SUSP PO (02:55)
[2023-03-03 09:41] VITALS: BP 99/62; PULSE 85; RESP 16; TEMP 36.4; O2SAT 95
[2023-03-03] MEDS: Divalproex Sodium Sprinkles 125 MG CAP.DR.SPR 1000 MG PO ×2 (09:43→18:36)
[2023-03-03] MEDS: OLANZapine 5 MG TABLET PO ×2 (09:44→14:13)
[2023-03-03] MEDS: Sennosides/Docusate Sodium TABLET 2 TAB PO ×2 (09:44→18:36)
[2023-03-03] MEDS: Doxycycline Monohydrate 100 MG CAPSULE PO ×2 (09:44→18:36)
[2023-03-03] MEDS: Loratadine 10 MG TABLET PO (09:44)
[2023-03-03] MEDS: Propranolol HCL 10 MG TABLET PO ×3 (09:44→18:37)
[2023-03-03] MEDS: clonazePAM 0.5 MG TABLET 1.5 MG PO ×3 (09:44→18:36)
[2023-03-03] MEDS: Propranolol HCL LA 80 MG CAP.SA.24H PO (09:44)
[2023-03-03] MEDS: Furosemide 20 MG TABLET PO ×2 (09:44→16:43)
[2023-03-03] MEDS: Fluticasone Propionate Nasal 16 GM SPRAY 1 SPRAY NOSTRIL-B (09:47)
[2023-03-03] MEDS: Lactulose 20 GM/30 ML SOLUTION PO (09:47)
--- NOTE | 2023-03-03 10:26 | HO.PSYCHPN ---
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 Patient has episodes of depersonalization and derealization which the typically arise when triggered and during which time she will feel detached from herself, from her body and feel as if things are unreal and dream like, with out a sense of time; after they conclude and she is again in the present, she can be upset about some behaviors she engaged in during the dissociate period once made aware. Not BPD: Regarding past references to borderline personality disorder, Wall Ins[employer]ayer and team agree there have been no axis II traits expressed throughout her time in the hospital; none could be cleaned from records No psychotic illness: no psychotic symptoms past or present Med trials (via notes from [facility]) Depakote Zyprexa [place] Seroquel Lamictal Ziprasidone Invega Sustenna Abilify, Maintena, Astrada Risperdal BuSpar Lexapro Prozac Effexor Levothyroxine Haldol: Untolerated side effect Thorazine: Anaphylaxis [place]: Hives Reason for continued inpatient stay Substantial Risk for: harm to self, harm to others, inability to function and rapid decompensation Time Spent With Patient Time: Total time managing care of this patient today ____ minutes.
[2023-03-03 13:14] VITALS: BP 112/62; PULSE 82; RESP 16; TEMP 36.8; O2SAT 96
[2023-03-03] MEDS: QUEtiapine Fumarate 50 MG TABLET 150 MG PO (16:43)
[2023-03-03] MEDS: diphenhydrAMINE HCL 25 MG CAPSULE 75 MG PO (18:36)
[2023-03-03] MEDS: Multivitamin TABLET 1 TAB PO (18:36)
[2023-03-03] MEDS: Melatonin 3 MG TABLET PO (18:37)
[2023-03-03] MEDS: traZODone HCL 100 MG TABLET PO (18:37)
[2023-03-03] MEDS: Famotidine 20 MG TABLET PO (18:37)
[2023-03-03] MEDS: OLANZapine 10 MG TABLET 20 MG PO (18:37)
[2023-03-03] MEDS: ALPRAZolam 0.5 MG TABLET PO (20:28)
[2023-03-03] MEDS: NaPROXEN 500 MG TABLET PO (22:34)
--- NOTE | 2023-03-04 09:18 | P.PNPSI_ITS ---
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 child-like interests. Regarding Dissociative Disorder:? Patient has episodes of depersonalization and derealization which the typically arise when triggered and during which time she will feel detached from herself, from her body and feel as if things are unreal and dream like, with out a sense of time; after they conclude and she is again in the present, she can be upset about some behaviors she engaged in during the dissociate period once made aware. Not BPD: Regarding past references to borderline personality disorder, Creative [employer] vijaya hester team agree there have been no axis II traits expressed throughout her time in the hospital; none could be cleaned from records No psychotic illness: no psychotic symptoms past or present Med trials (via notes from [facility]) Depakote Zyprexa Olivia Lopez De Gutierrez Seroquel Lamictal Ziprasidone Invega Sustenna Abilify, Maintena, Astrada Risperdal BuSpar Lexapro Prozac Effexor Levothyroxine Haldol: Untolerated side effect Thorazine: Anaphylaxis Olivia Lopez De Gutierrez: Hives Patient educated on: diagnosis Informed Consent: understands Reason for continued inpatient stay Substantial Risk for: inability to function Time Spent With Patient Time: Total time managing care of this patient today ____ minutes.
[2023-03-04] MEDS: Propranolol HCL LA 80 MG CAP.SA.24H PO (09:42)
[2023-03-04] MEDS: Fluticasone Propionate Nasal 16 GM SPRAY 1 SPRAY NOSTRIL-B (09:42)
[2023-03-04] MEDS: Divalproex Sodium Sprinkles 125 MG CAP.DR.SPR 1000 MG PO ×2 (09:42→19:44)
[2023-03-04] MEDS: Loratadine 10 MG TABLET PO (09:43)
[2023-03-04] MEDS: Furosemide 20 MG TABLET PO ×2 (09:43→16:25)
[2023-03-04] MEDS: Propranolol HCL 10 MG TABLET PO (09:43)
[2023-03-04] MEDS: Doxycycline Monohydrate 100 MG CAPSULE PO ×2 (09:43→19:45)
[2023-03-04] MEDS: OLANZapine 5 MG TABLET PO ×2 (09:43→13:28)
[2023-03-04] MEDS: Sennosides/Docusate Sodium TABLET 2 TAB PO ×2 (09:43→19:45)
[2023-03-04] MEDS: clonazePAM 0.5 MG TABLET 1.5 MG PO ×3 (09:43→16:25)
[2023-03-04 09:59] VITALS: BP 121/75; PULSE 82; TEMP 36.2
[2023-03-04 13:00] VITALS: BP 121/82; PULSE 83; RESP 18
[2023-03-04] MEDS: Ziprasidone Mesylate 20 MG VIAL IM (13:29)
[2023-03-04] MEDS: Propranolol HCL 20 MG TABLET PO (13:38)
--- NOTE | 2023-03-04 13:49 | PC.NURSE ---
Patient requested CHANELLE gandhi at 13:20, went to bed to rest.
[2023-03-04] MEDS: QUEtiapine Fumarate 50 MG TABLET 150 MG PO (16:25)
[2023-03-04 16:38] VITALS: BP 103/60; PULSE 62
[2023-03-04] MEDS: OLANZapine 10 MG TABLET 20 MG PO (19:44)
[2023-03-04] MEDS: Melatonin 3 MG TABLET PO (19:45)
[2023-03-04] MEDS: ALPRAZolam 0.5 MG TABLET PO ×2 (19:45→22:49)
[2023-03-04] MEDS: Famotidine 20 MG TABLET PO (19:45)
[2023-03-04] MEDS: traZODone HCL 100 MG TABLET PO (19:45)
[2023-03-04] MEDS: diphenhydrAMINE HCL 25 MG CAPSULE 75 MG PO (19:45)
[2023-03-04] MEDS: Multivitamin TABLET 1 TAB PO (20:33)
[2023-03-04] MEDS: Magnesium Hydrox/Alum Hydrox 30 ML ORAL.SUSP PO (22:51)
[2023-03-05 07:45] VITALS: BP 113/65; PULSE 93; RESP 16; TEMP 36.6; O2SAT 96
[2023-03-05] MEDS: Furosemide 20 MG TABLET PO ×2 (07:52→17:51)
[2023-03-05] MEDS: Ziprasidone 20 MG CAPSULE PO (07:52)
[2023-03-05] MEDS: Loratadine 10 MG TABLET PO (07:52)
[2023-03-05] MEDS: Sennosides/Docusate Sodium TABLET 2 TAB PO ×2 (07:52→20:38)
[2023-03-05] MEDS: Propranolol HCL LA 60 MG CAP.SA.24H 120 MG PO (07:52)
[2023-03-05] MEDS: OLANZapine 5 MG TABLET PO ×2 (07:53→14:18)
[2023-03-05] MEDS: clonazePAM 0.5 MG TABLET 1.5 MG PO ×3 (07:53→19:04)
[2023-03-05] MEDS: Divalproex Sodium Sprinkles 125 MG CAP.DR.SPR 1000 MG PO ×2 (07:55→20:37)
[2023-03-05] MEDS: Fluticasone Propionate Nasal 16 GM SPRAY 1 SPRAY NOSTRIL-B (08:04)
[2023-03-05] MEDS: NaPROXEN 500 MG TABLET PO ×2 (08:26→20:39)
[2023-03-05] MEDS: Lactulose 20 GM/30 ML SOLUTION PO (08:27)
[2023-03-05 13:00] VITALS: BP 97/64; PULSE 90; RESP 16; TEMP 36; O2SAT 96
--- NOTE | 2023-03-05 17:22 | P.PNPSI_ITS ---
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 She has several regressed behaviors and some child-like interests. Regarding Dissociative Disorder:? Patient has episodes of depersonalization and derealization which the typically arise when triggered and during which time she will feel detached from herself, from her body and feel as if things are unreal and dream like, with out a sense of time; after they conclude and she is again in the present, she can be upset about some behaviors she engaged in during the dissociate period once made aware. Not BPD: Regarding past references to borderline personality disorder, Mold Presser and team agree there have been no axis II traits expressed throughout her time in the hospital; none could be cleaned from records No psychotic illness: no psychotic symptoms past or present Med trials (via notes from [facility]) Depakote Zyprexa [place] Seroquel Lamictal Ziprasidone Invega Sustenna Abilify, Maintena, Astrada Risperdal BuSpar Lexapro Prozac Effexor Levothyroxine Haldol: Untolerated side effect Thorazine: Anaphylaxis [place]: Hives Patient educated on: diagnosis and medication risk/benefits Informed Consent: understands Reason for continued inpatient stay Substantial Risk for: harm to self and inability to function Time Spent With Patient Time: Total time managing care of this patient today ____ minutes.
[2023-03-05] MEDS: QUEtiapine Fumarate 50 MG TABLET 150 MG PO (17:51)
[2023-03-05 18:00] VITALS: BP 96/62; PULSE 98; RESP 16; TEMP 36; O2SAT 98
[2023-03-05] MEDS: clomiPRAMINE HCl 25 MG CAPSULE PO (20:36)
[2023-03-05] MEDS: diphenhydrAMINE HCL 25 MG CAPSULE 75 MG PO (20:36)
[2023-03-05] MEDS: Famotidine 20 MG TABLET PO (20:38)
[2023-03-05] MEDS: traZODone HCL 100 MG TABLET PO (20:38)
[2023-03-05] MEDS: OLANZapine 10 MG TABLET 20 MG PO (20:38)
[2023-03-05] MEDS: Melatonin 3 MG TABLET PO (20:38)
[2023-03-05] MEDS: Multivitamin TABLET 1 TAB PO (20:38)
[2023-03-06 10:05] VITALS: BP 119/60; PULSE 86; RESP 18; TEMP 36; O2SAT 96
[2023-03-06] MEDS: clonazePAM 0.5 MG TABLET 1.5 MG PO ×3 (10:35→19:47)
[2023-03-06] MEDS: Sennosides/Docusate Sodium TABLET 2 TAB PO ×2 (10:35→19:53)
[2023-03-06] MEDS: Loratadine 10 MG TABLET PO (10:36)
[2023-03-06] MEDS: Propranolol HCL LA 60 MG CAP.SA.24H 120 MG PO (10:36)
[2023-03-06] MEDS: OLANZapine 5 MG TABLET PO ×2 (10:36→13:09)
[2023-03-06] MEDS: Furosemide 20 MG TABLET PO ×2 (10:36→18:02)
[2023-03-06] MEDS: Fluticasone Propionate Nasal 16 GM SPRAY 1 SPRAY NOSTRIL-B (10:37)
[2023-03-06] MEDS: Lactulose 20 GM/30 ML SOLUTION PO (10:37)
[2023-03-06] MEDS: Divalproex Sodium Sprinkles 125 MG CAP.DR.SPR 1000 MG PO ×2 (10:38→19:55)
[2023-03-06 13:00] VITALS: BP 97/58; PULSE 88
[2023-03-06] MEDS: ALPRAZolam 0.5 MG TABLET PO ×2 (15:21→22:48)
[2023-03-06] MEDS: Ziprasidone Mesylate 20 MG VIAL IM (15:21)
--- NOTE | 2023-03-06 17:12 | P.PNPSI_ITS ---
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 food when it is not as expected patient can get severely dysregulated Patient has some hypo-reactivity to loud noises and crowds of people. Conversely, She does get jokes, even subtle ones. Symptoms have clearly made life functioning extremely difficult.? It is unclear if patient has had neuropsych testing. She did spend [facility] at [facility]. Secondary dx: PTSD: Patient has a history of trauma from both childhood experiences, as well as trauma that occurred while on inpatient unit at [facility] and [place].? She has also been institutionalized since a young age, away from her mother and father, feeling abandoned. Possibly (likely?) reactive attachment disorder.? She has several regressed behaviors and some child-like interests. Regarding Dissociative Disorder:? Patient has episodes of depersonalization and derealization which the typically arise when triggered and during which time she will feel detached from herself, from her body and feel as if things are unreal and dream like, with out a sense of time; after they conclude and she is again in the present, she can be upset about some behaviors she engaged in during the dissociate period once made aware. Not BPD: Regarding past references to borderline personality disorder, Relief Manager and team agree there have been no axis II traits expressed throughout her time in the hospital; none could be cleaned from records No psychotic illness: no psychotic symptoms past or present Med trials (via notes from [facility]) Depakote Zyprexa [place] Seroquel Lamictal Ziprasidone Invega Sustenna Abilify, Maintena, Astrada Risperdal BuSpar Lexapro Prozac Effexor Levothyroxine Haldol: Untolerated side effect Thorazine: Anaphylaxis [place]: Hives Patient educated on: diagnosis, medication risk/benefits and therapeutic strategies Informed Consent: understands Reason for continued inpatient stay Substantial Risk for: harm to self and inability to function Time Spent With Patient Time: Total time managing care of this patient today ____ minutes.
[2023-03-06 18:00] VITALS: BP 126/63; PULSE 85; TEMP 35.9
[2023-03-06] MEDS: QUEtiapine Fumarate 50 MG TABLET 150 MG PO (18:01)
[2023-03-06] MEDS: clomiPRAMINE HCl 25 MG CAPSULE PO (19:52)
[2023-03-06] MEDS: Multivitamin TABLET 1 TAB PO (19:52)
[2023-03-06] MEDS: diphenhydrAMINE HCL 25 MG CAPSULE 75 MG PO (19:53)
[2023-03-06] MEDS: traZODone HCL 100 MG TABLET PO (19:53)
[2023-03-06] MEDS: OLANZapine 10 MG TABLET 20 MG PO (19:54)
[2023-03-06] MEDS: Melatonin 3 MG TABLET PO (19:54)
[2023-03-06] MEDS: Famotidine 20 MG TABLET PO (20:00)
[2023-03-06] MEDS: traZODone HCL 50 MG TABLET PO (22:48)
[2023-03-07 07:00] VITALS: BMI 41.5
[2023-03-07] MEDS: Lactulose 20 GM/30 ML SOLUTION PO (09:21)
[2023-03-07] MEDS: clonazePAM 0.5 MG TABLET 1.5 MG PO ×3 (09:22→21:31)
[2023-03-07] MEDS: Propranolol HCL LA 60 MG CAP.SA.24H 120 MG PO (09:22)
[2023-03-07] MEDS: OLANZapine 5 MG TABLET PO ×2 (09:22→13:49)
[2023-03-07] MEDS: Divalproex Sodium Sprinkles 125 MG CAP.DR.SPR 1000 MG PO ×2 (09:22→21:43)
[2023-03-07] MEDS: Sennosides/Docusate Sodium TABLET 2 TAB PO ×2 (09:22→21:29)
[2023-03-07] MEDS: Furosemide 20 MG TABLET PO (09:22)
[2023-03-07] MEDS: Loratadine 10 MG TABLET PO (09:22)
[2023-03-07] MEDS: Fluticasone Propionate Nasal 16 GM SPRAY 1 SPRAY NOSTRIL-B ×2 (09:39)
[2023-03-07 09:49] VITALS: BP 98/62; PULSE 82; RESP 16; TEMP 36.7; O2SAT 96
--- NOTE | 2023-03-07 10:12 | P.PNPSI_ITS ---
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 jokes, even subtle ones. Symptoms have clearly made life functioning extremely difficult.? It is unclear if patient has had neuropsych testing. She did spend time at [facility]. Secondary dx: PTSD: Patient has a history of trauma from both childhood experiences, as well as trauma that occurred while on inpatient unit at [facility] and [place].? She has also been institutionalized since a young age, away from her mother and father, feeling abandoned. Possibly (likely?) reactive attachment disorder.? She has several regressed behaviors and some child-like interests. Regarding Dissociative Disorder:? Patient has episodes of depersonalization and derealization which the typically arise when triggered and during which time she will feel detached from herself, from her body and feel as if things are unreal and dream like, with out a sense of time; after they conclude and she is again in the present, she can be upset about some behaviors she engaged in during the dissociate period once made aware. 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 agree there have been no axis II traits expressed throughout her time in the hospital; none could be cleaned from records No psychotic illness: no psychotic symptoms past or present Med trials (via notes from [facility]) Depakote Zyprexa Siloam Seroquel Lamictal Ziprasidone Invega Sustenna Abilify, Maintena, Astrada Risperdal BuSpar Lexapro Prozac Effexor Levothyroxine Haldol: Untolerated side effect Thorazine: Anaphylaxis Siloam: Hives Patient educated on: diagnosis and medication risk/benefits Informed Consent: understands Reason for continued inpatient stay Substantial Risk for: harm to self and inability to function Time Spent With Patient Time: Total time managing care of this patient today ____ minutes.
[2023-03-07 13:47] VITALS: BP 125/71; PULSE 84; RESP 16; TEMP 36.9; O2SAT 96
[2023-03-07] MEDS: bisacodyL 10 MG SUPP.RECT PR (13:49)
[2023-03-07] MEDS: ALPRAZolam 0.5 MG TABLET PO (15:05)
[2023-03-07] MEDS: Ziprasidone Mesylate 20 MG VIAL IM (15:19)
[2023-03-07 17:54] VITALS: BP 106/56; PULSE 86; TEMP 37.1
[2023-03-07] MEDS: clomiPRAMINE HCl 25 MG CAPSULE PO (21:29)
[2023-03-07] MEDS: diphenhydrAMINE HCL 25 MG CAPSULE 75 MG PO (21:30)
[2023-03-07] MEDS: Famotidine 20 MG TABLET PO (21:31)
[2023-03-07] MEDS: OLANZapine 10 MG TABLET 20 MG PO (21:32)
[2023-03-07] MEDS: Melatonin 3 MG TABLET PO (21:32)
[2023-03-07] MEDS: Multivitamin TABLET 1 TAB PO (21:32)
[2023-03-07] MEDS: traZODone HCL 100 MG TABLET PO (21:52)
[2023-03-08] MEDS: OLANZapine 5 MG TABLET PO ×2 (08:59→14:19)
[2023-03-08] MEDS: Furosemide 20 MG TABLET PO ×2 (08:59→16:15)
[2023-03-08] MEDS: Sennosides/Docusate Sodium TABLET 2 TAB PO ×2 (08:59→19:36)
[2023-03-08] MEDS: clonazePAM 0.5 MG TABLET 1.5 MG PO ×3 (08:59→19:11)
[2023-03-08] MEDS: Loratadine 10 MG TABLET PO (08:59)
[2023-03-08] MEDS: Propranolol HCL LA 60 MG CAP.SA.24H 120 MG PO (08:59)
[2023-03-08 09:00] VITALS: BP 119/71; PULSE 89; RESP 17; TEMP 36.3; O2SAT 97
[2023-03-08] MEDS: Divalproex Sodium Sprinkles 125 MG CAP.DR.SPR 1000 MG PO ×2 (09:00→19:35)
[2023-03-08] MEDS: Lactulose 20 GM/30 ML SOLUTION PO (09:00)
[2023-03-08] MEDS: Fluticasone Propionate Nasal 16 GM SPRAY 1 SPRAY NOSTRIL-B (09:11)
--- NOTE | 2023-03-08 11:01 | P.PNPSI_ITS ---
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 Intermittent Flapping arms; rocking Patient does make eye contact, however she stares the entire time she is engaged. ? She can have a logical conversation Patient has a blunted affect and though she can smile and laugh, she is otherwi se expressionless with blunted affect. Patient has in flexibility regarding food when it is not as expected patient can get severely dysregulated Patient has some hypo-reactivity to loud noises and crowds of people. Conversely, She does get jokes, even subtle ones. Symptoms have clearly made life functioning extremely difficult.? It is unclear if patient has had neuropsych testing. She did spend [facility] at [facility]. Secondary dx: PTSD: Patient has a history of trauma from both childhood experiences, as well as trauma that occurred while on inpatient unit at [facility] and [place].? She has also been institutionalized since a young age, away from her mother and father, feeling abandoned. Possibly (likely?) reactive attachment disorder.? She has several regressed behaviors and some child-like interests. Regarding Dissociative Disorder:? Patient has episodes of depersonalization and derealization which the typically arise when triggered and during which time she will feel detached from herself, from her body and feel as if things are unreal and dream like, with out a sense of time; after they conclude and she is again in the present, she can be upset about some behaviors she engaged in during the dissociate period once made aware. Not BPD: Regarding past references to borderline personality disorder, [facility] and team agree there have been no axis II traits expressed throughout her time in the hospital; none could be cleaned from records No psychotic illness: no psychotic symptoms past or present Med trials (via notes from [facility]) Depakote Zyprexa [place] Seroquel Lamictal Ziprasidone Invega Sustenna Abilify, Maintena, Astrada Risperdal BuSpar Lexapro Prozac Effexor Levothyroxine Haldol: Untolerated side effect Thorazine: Anaphylaxis [place]: Hives Patient educated on: diagnosis, medication risk/benefits and therapeutic strategies Informed Consent: understands Reason for continued inpatient stay Substantial Risk for: inability to function Time Spent With Patient Time: Total time managing care of this patient today ____ minutes.
[2023-03-08] MEDS: Artificial Tears 15 ML DROPS 2 DROP EYE-BOTH (15:06)
[2023-03-08 16:13] VITALS: BP 125/62; PULSE 86; TEMP 36.1
[2023-03-08] MEDS: Ziprasidone 20 MG CAPSULE PO (16:21)
[2023-03-08] MEDS: ALPRAZolam 0.5 MG TABLET PO ×2 (16:21→20:52)
[2023-03-08] MEDS: QUEtiapine Fumarate 50 MG TABLET 150 MG PO (19:11)
[2023-03-08] MEDS: Melatonin 3 MG TABLET PO (19:35)
[2023-03-08] MEDS: Multivitamin TABLET 1 TAB PO (19:35)
[2023-03-08] MEDS: clomiPRAMINE HCl 25 MG CAPSULE PO (19:35)
[2023-03-08] MEDS: OLANZapine 10 MG TABLET 20 MG PO (19:35)
[2023-03-08] MEDS: Famotidine 20 MG TABLET PO (19:35)
[2023-03-08] MEDS: traZODone HCL 100 MG TABLET PO (19:36)
[2023-03-08] MEDS: diphenhydrAMINE HCL 25 MG CAPSULE 75 MG PO (19:36)
[2023-03-08] MEDS: traZODone HCL 50 MG TABLET PO (20:52)
--- NOTE | 2023-03-09 08:57 | P.PNPSI_ITS ---
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 time at [facility]. Secondary dx: PTSD: Patient has a history of trauma from both childhood e xperiences, as well as trauma that occurred while on inpatient unit at [facility] and [place].? She has also been institutionalized since a young age, away from her mother and father, feeling abandoned. Possibly (likely?) reactive attachment disorder.? She has several regressed behaviors and some child-like interests. Regarding Dissociative Disorder:? Patient has episodes of depersonalization and derealization which the typically arise when triggered and during which time she will feel detached from herself, from her body and feel as if things are unreal and dream like, with out a sense of time; after they conclude and she is again in the present, she can be upset about some behaviors she engaged in during the dissociate period once made aware. 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 have been no axis II traits expressed throughout her time in the hospital; none could be cleaned from records No psychotic illness: no psychotic symptoms past or present Med trials (via notes from [facility]) Depakote Zyprexa Hope Seroquel Lamictal Ziprasidone Invega Sustenna Abilify, Maintena, Astrada Risperdal BuSpar Lexapro Prozac Effexor Levothyroxine Haldol: Untolerated side effect Thorazine: Anaphylaxis Hope: Hives Informed Consent: further education needed Reason for continued inpatient stay Substantial Risk for: harm to self, harm to others and rapid decompensation Time Spent With Patient Time: Total time managing care of this patient today ____ minutes.
[2023-03-09] MEDS: Furosemide 20 MG TABLET PO ×2 (09:10→17:21)
[2023-03-09] MEDS: Divalproex Sodium Sprinkles 125 MG CAP.DR.SPR 1000 MG PO ×2 (09:10→20:24)
[2023-03-09] MEDS: Loratadine 10 MG TABLET PO (09:10)
[2023-03-09] MEDS: Propranolol HCL LA 60 MG CAP.SA.24H 120 MG PO (09:10)
[2023-03-09] MEDS: OLANZapine 5 MG TABLET PO ×2 (09:10→14:42)
[2023-03-09] MEDS: clonazePAM 0.5 MG TABLET 1.5 MG PO ×3 (09:11→20:22)
[2023-03-09] MEDS: Lactulose 20 GM/30 ML SOLUTION PO (09:11)
[2023-03-09] MEDS: Sennosides/Docusate Sodium TABLET 2 TAB PO ×2 (09:11→20:25)
[2023-03-09] MEDS: Fluticasone Propionate Nasal 16 GM SPRAY 1 SPRAY NOSTRIL-B (09:27)
[2023-03-09 10:00] VITALS: BP 128/67; PULSE 82; RESP 18; TEMP 36.3; O2SAT 97
[2023-03-09] MEDS: QUEtiapine Fumarate 50 MG TABLET 150 MG PO (18:20)
[2023-03-09 19:39] VITALS: BP 106/62; PULSE 82; RESP 18; TEMP 36.6; O2SAT 95
[2023-03-09] MEDS: clomiPRAMINE HCl 25 MG CAPSULE PO (20:22)
[2023-03-09] MEDS: diphenhydrAMINE HCL 25 MG CAPSULE 75 MG PO (20:23)
[2023-03-09] MEDS: OLANZapine 10 MG TABLET 20 MG PO (20:25)
[2023-03-09] MEDS: traZODone HCL 100 MG TABLET PO (20:25)
[2023-03-09] MEDS: Multivitamin TABLET 1 TAB PO (20:26)
[2023-03-09] MEDS: Ziprasidone Mesylate 20 MG VIAL IM (20:35)
[2023-03-09] MEDS: Melatonin 3 MG TABLET PO (20:39)
[2023-03-09] MEDS: Famotidine 20 MG TABLET PO (22:35)
[2023-03-10 10:00] VITALS: RESP 16
[2023-03-10 13:30] VITALS: BP 107/72; PULSE 91; TEMP 36.4; O2SAT 97
[2023-03-10] MEDS: Divalproex Sodium Sprinkles 125 MG CAP.DR.SPR 1000 MG PO ×2 (13:30→21:45)
[2023-03-10] MEDS: Propranolol HCL LA 60 MG CAP.SA.24H 120 MG PO (13:31)
[2023-03-10] MEDS: OLANZapine 5 MG TABLET PO (13:31)
[2023-03-10] MEDS: clonazePAM 0.5 MG TABLET 1.5 MG PO ×2 (13:31→18:20)
[2023-03-10] MEDS: Loratadine 10 MG TABLET PO (13:33)
[2023-03-10] MEDS: Fluticasone Propionate Nasal 16 GM SPRAY 1 SPRAY NOSTRIL-B (13:38)
[2023-03-10] MEDS: Ziprasidone 20 MG CAPSULE PO (15:56)
[2023-03-10] MEDS: QUEtiapine Fumarate 50 MG TABLET 150 MG PO (15:56)
[2023-03-10] MEDS: ALPRAZolam 0.5 MG TABLET PO (15:56)
--- NOTE | 2023-03-10 17:37 | P.PNPSI_ITS ---
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 [facility]. Secondary dx: PTSD: Patient has a history of trauma from both childhood experiences, as well as trauma that occurred while on inpatient unit at this [facility] and [place].? She has also been institutionalized since a young age, away from her mother and father, feeling abandoned. Possibly (likely?) reactive attachment disorder.? She has several regressed behaviors and some child-like interests. Regarding Dissociative Disorder:? Patient has episodes of depersonalization and derealization which the typically arise when triggered and during which time she will feel detached from herself, from her body and feel as if things are unreal and dream like, with out a sense of time; after they conclude and she is again in the present, she can be upset about some behaviors she engaged in during the dissociate period once made aware. Not BPD: Regarding past references to borderline personality disorder, [employer] and team agree there have been no axis II traits expressed throughout her time in the hospital; none could be cleaned from records No psychotic illness: no psychotic symptoms past or present Med trials (via notes from [facility]) Depakote Zyprexa [place] Seroquel Lamictal Ziprasidone Invega Sustenna Abilify, Maintena, Astrada Risperdal BuSpar Lexapro Prozac Effexor Levothyroxine Haldol: Untolerated side effect Thorazine: Anaphylaxis [place]: Hives Informed Consent: further education needed Reason for continued inpatient stay Substantial Risk for: harm to self, harm to others and rapid decompensation Time Spent With Patient Time: Total time managing care of this patient today ____ minutes.
[2023-03-10] MEDS: Ziprasidone Mesylate 20 MG VIAL IM (18:03)
[2023-03-10] MEDS: Furosemide 20 MG TABLET PO (18:21)
--- NOTE | 2023-03-10 19:56 | PC.NURSE ---
pt got agitated when the nurse offered her scheduled seroquel and lasix at 1745. pt lashed out at nurse and tried to hit them. pt tried to pull down exit sign. pt was told to stop trying to pull the exit sign and staff tried to redirect her. pt tried to hit staff again. pt requested IM geodon. pt was given IM geodon 20 mg. pt went to sleep after the IM.
[2023-03-10] MEDS: Multivitamin TABLET 1 TAB PO (21:45)
[2023-03-10] MEDS: Famotidine 20 MG TABLET PO (21:46)
[2023-03-10] MEDS: Melatonin 3 MG TABLET PO (21:46)
[2023-03-10] MEDS: diphenhydrAMINE HCL 25 MG CAPSULE 75 MG PO (21:46)
[2023-03-10] MEDS: clomiPRAMINE HCl 25 MG CAPSULE PO (21:46)
[2023-03-10] MEDS: OLANZapine 10 MG TABLET 20 MG PO (21:46)
[2023-03-10] MEDS: Sennosides/Docusate Sodium TABLET 2 TAB PO (21:46)
[2023-03-10] MEDS: traZODone HCL 100 MG TABLET PO (21:46)
[2023-03-11 09:12] VITALS: BP 138/79; PULSE 78; RESP 16; TEMP 36.6; O2SAT 96
[2023-03-11] MEDS: clonazePAM 0.5 MG TABLET 1.5 MG PO ×3 (09:13→20:59)
[2023-03-11] MEDS: Sennosides/Docusate Sodium TABLET 2 TAB PO ×2 (09:13→21:02)
[2023-03-11] MEDS: Lactulose 20 GM/30 ML SOLUTION PO (09:13)
[2023-03-11] MEDS: OLANZapine 5 MG TABLET PO ×2 (09:14→14:25)
[2023-03-11] MEDS: Loratadine 10 MG TABLET PO (09:14)
[2023-03-11] MEDS: Propranolol HCL LA 60 MG CAP.SA.24H 120 MG PO (09:14)
[2023-03-11] MEDS: Furosemide 20 MG TABLET PO (09:14)
[2023-03-11] MEDS: Divalproex Sodium Sprinkles 125 MG CAP.DR.SPR 1000 MG PO ×2 (09:14→21:03)
--- NOTE | 2023-03-11 10:17 | HO.PSYCHPN ---
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 can get severely dysregulated Patient has some hypo-reactivity to loud noises and crowds of people. Conversely, She does get jokes, even subtle ones. Symptoms have clearly made life functioning extremely difficult.? It is unclear if patient has had neuropsych testing. She did spend time at [facility]. Secondary dx: PTSD: Patient has a history of trauma from both childhood experiences, as well as trauma that occurred while on inpatient unit at [facility] and [place].? She has also been institutionalized since a young age, away from her mother and father, feeling abandoned. Possibly (likely?) reactive attachment disorder.? She has several regressed behaviors and some child-like interests. Regarding Dissociative Disorder:? Patient has episodes of depersonalization and derealization which the typically arise when triggered and during which time she will feel detached from herself, from her body and feel as if things are unreal and dream like, with out a sense of time; after they conclude and she is again in the present, she can be upset about some behaviors she engaged in during the dissociate period once made aware. Not BPD: Regarding past references to borderline personality disorder, Page Designer and team agree there have been no axis II traits expressed throughout her time in the hospital; none could be cleaned from records No psychotic illness: no psychotic symptoms past or present Med trials (via notes from [facility]) Depakote Zyprexa [place] Seroquel Lamictal Ziprasidone Invega Sustenna Abilify, Maintena, Astrada Risperdal BuSpar Lexapro Prozac Effexor Levothyroxine Haldol: Untolerated side effect Thorazine: Anaphylaxis [place]: Hives Patient educated on: diagnosis, medication risk/benefits and therapeutic strategies Informed Consent: understands Reason for continued inpatient stay Substantial Risk for: inability to function Time Spent With Patient Time: Total time managing care of this patient today ____ minutes.
[2023-03-11] MEDS: Sodium Phosphate,Mono-Dibasic 133 ML ENEMA PR ×2 (13:42→15:03)
--- NOTE | 2023-03-11 14:35 | PC.NURSE ---
pt complains of constipation; Fleet enema ordered and administered. Pt reports little effect. EL notified and a second enema was ordered. awaiting delivery from pharmacy.
[2023-03-11] MEDS: Milk of Magnesia 30 ML ORAL.SUSP PO (16:20)
[2023-03-11 17:15] VITALS: BP 89/51; PULSE 87; TEMP 36.2
[2023-03-11] MEDS: QUEtiapine Fumarate 50 MG TABLET 150 MG PO (17:22)
[2023-03-11] MEDS: clomiPRAMINE HCl 25 MG CAPSULE 50 MG PO (21:00)
[2023-03-11] MEDS: OLANZapine 10 MG TABLET 20 MG PO (21:00)
[2023-03-11] MEDS: diphenhydrAMINE HCL 25 MG CAPSULE 75 MG PO (21:01)
[2023-03-11] MEDS: Melatonin 3 MG TABLET PO (21:02)
[2023-03-11] MEDS: Multivitamin TABLET 1 TAB PO (21:02)
[2023-03-11] MEDS: Famotidine 20 MG TABLET PO (21:03)
[2023-03-11] MEDS: traZODone HCL 100 MG TABLET PO (21:03)
[2023-03-12] MEDS: Divalproex Sodium Sprinkles 125 MG CAP.DR.SPR 1000 MG PO ×2 (09:02→21:09)
[2023-03-12] MEDS: Propranolol HCL LA 60 MG CAP.SA.24H 120 MG PO (09:03)
[2023-03-12] MEDS: clonazePAM 0.5 MG TABLET 1.5 MG PO ×3 (09:03→21:10)
[2023-03-12] MEDS: Furosemide 20 MG TABLET PO ×2 (09:03→17:38)
[2023-03-12] MEDS: Sennosides/Docusate Sodium TABLET 2 TAB PO ×2 (09:03→21:10)
[2023-03-12] MEDS: Loratadine 10 MG TABLET PO (09:03)
[2023-03-12] MEDS: OLANZapine 5 MG TABLET PO ×2 (09:03→13:38)
[2023-03-12] MEDS: Lactulose 20 GM/30 ML SOLUTION PO (09:03)
[2023-03-12 10:52] VITALS: BP 92/64; PULSE 76; RESP 16; TEMP 36.4; O2SAT 95
[2023-03-12] MEDS: NaPROXEN 500 MG TABLET PO (13:38)
--- NOTE | 2023-03-12 13:49 | P.PNPSI_ITS ---
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 It is unclear if patient has had neuropsych testing. She did spend time at [facility]. Secondary dx: PTSD: Patient has a history of trauma from both childhood experiences, as well as trauma that occurred while on inpatient unit at [facility] and [place].? She has also been institutionalized since a young age, away from her mother and father, feeling abandoned. Possibly (likely?) reactive attachment disorder.? She has several regressed behaviors and some child-like interests. Regarding Dissociative Disorder:? Patient has episodes of depersonalization and derealization which the typically arise when triggered and during which time she will feel detached from herself, from her body and feel as if things are unreal and dream like, with out a sense of time; after they conclude and she is again in the present, she can be upset about some behaviors she engaged in during the dissociate period once made aware. Not BPD: Regarding past references to borderline personality disorder, Adolescent Coordinator and team agree there have been no axis II traits expressed throughout her time in the hospital; none could be cleaned from records No psychotic illness: no psychotic symptoms past or present Med trials (via notes from [facility]) Depakote Zyprexa Finley Seroquel Lamictal Ziprasidone Invega Sustenna Abilify, Maintena, Astrada Risperdal BuSpar Lexapro Prozac Effexor Levothyroxine Haldol: Untolerated side effect Thorazine: Anaphylaxis Finley: Hives Reason for continued inpatient stay Substantial Risk for: inability to function Time Spent With Patient Time: Total time managing care of this patient today ____ minutes.
[2023-03-12 17:20] VITALS: BP 117/70; PULSE 78; TEMP 35.9
[2023-03-12] MEDS: QUEtiapine Fumarate 50 MG TABLET 150 MG PO (17:38)
[2023-03-12] MEDS: diphenhydrAMINE HCL 25 MG CAPSULE 75 MG PO (21:10)
[2023-03-12] MEDS: traZODone HCL 100 MG TABLET PO (21:10)
[2023-03-12] MEDS: OLANZapine 10 MG TABLET 20 MG PO (21:11)
[2023-03-12] MEDS: clomiPRAMINE HCl 25 MG CAPSULE 50 MG PO (21:11)
[2023-03-12] MEDS: Melatonin 3 MG TABLET PO (21:12)
[2023-03-12] MEDS: Multivitamin TABLET 1 TAB PO (21:12)
[2023-03-12] MEDS: Famotidine 20 MG TABLET PO (21:12)
[2023-03-13] MEDS: Fluticasone Propionate Nasal 16 GM SPRAY 1 SPRAY NOSTRIL-B (09:01)
[2023-03-13] MEDS: Lactulose 20 GM/30 ML SOLUTION PO ×3 (09:01→20:07)
[2023-03-13] MEDS: clonazePAM 0.5 MG TABLET 1.5 MG PO ×3 (09:01→17:25)
[2023-03-13] MEDS: Divalproex Sodium Sprinkles 125 MG CAP.DR.SPR 1000 MG PO ×2 (09:01→20:06)
[2023-03-13] MEDS: Furosemide 20 MG TABLET PO ×2 (09:02→17:25)
[2023-03-13] MEDS: Propranolol HCL LA 60 MG CAP.SA.24H 120 MG PO (09:02)
[2023-03-13] MEDS: OLANZapine 5 MG TABLET PO ×2 (09:02→14:40)
[2023-03-13] MEDS: Loratadine 10 MG TABLET PO (09:02)
[2023-03-13] MEDS: Sennosides/Docusate Sodium TABLET 2 TAB PO ×2 (09:02→20:06)
[2023-03-13 09:06] VITALS: BP 96/66; PULSE 94; RESP 16; TEMP 36.8; O2SAT 95
--- NOTE | 2023-03-13 10:10 | P.PNPSI_ITS ---
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 can have a logical conversation Patient has a blunted affect and though she can smile and laugh, she is otherwise expressionless with blunted affect. Patient has in flexibility regarding food when it is not as expected patient can get severely dysregulated Patient has some hypo-reactivity to loud noises and crowds of people. Conversely, She does get jokes, even subtle ones. Symptoms have clearly made life functioning extremely difficult.? It is unclear if patient has had neuropsych testing. She did spend time at [facility]. Secondary dx: PTSD: Patient has a history of trauma from both childhood experien jonathan, as well as trauma that occurred while on inpatient unit at [facility] [place].? She has also been institutionalized since a young age, away from her mother and father, feeling abandoned. Possibly (likely?) reactive attachment disorder.? She has several regressed behaviors and some child-like interests. Regarding Dissociative Disorder:? Patient has episodes of depersonalization and derealization which the typically arise when triggered and during which time she will feel detached from herself, from her body and feel as if things are unreal and dream like, with out a sense of time; after they conclude and she is again in the present, she can be upset about some behaviors she engaged in during the dissociate period once made aware. 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 agree there have been no axis II traits expressed throughout her time in the hospital; none could be cleaned from records No psychotic illness: no psychotic symptoms past or present Med trials (via notes from [facility]) Depakote Zyprexa [facility] Seroquel Lamictal Ziprasidone Invega Sustenna Abilify, Maintena, Astrada Risperdal BuSpar Lexapro Prozac Effexor Levothyroxine Haldol: Untolerated side effect Thorazine: Anaphylaxis [facility]: Hives Patient educated on: diagnosis, medication risk/benefits and medical condition Informed Consent: understands Reason for continued inpatient stay Substantial Risk for: inability to function Time Spent With Patient Time: Total time managing care of this patient today ____ minutes.
[2023-03-13] MEDS: polyethylene glycoL 3350 17 GM POWD.PACK PO ×2 (15:39→16:20)
[2023-03-13] MEDS: ALPRAZolam 0.5 MG TABLET PO (17:24)
[2023-03-13 18:35] VITALS: BP 101/59; PULSE 92; RESP 16; TEMP 36.4; O2SAT 98
--- NOTE | 2023-03-13 19:17 | PC.NURSE ---
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
[2023-03-13] MEDS: QUEtiapine Fumarate 50 MG TABLET 150 MG PO (20:05)
[2023-03-13] MEDS: OLANZapine 10 MG TABLET 20 MG PO (20:05)
[2023-03-13] MEDS: clomiPRAMINE HCl 25 MG CAPSULE 50 MG PO (20:06)
[2023-03-13] MEDS: diphenhydrAMINE HCL 25 MG CAPSULE 75 MG PO (20:06)
[2023-03-13] MEDS: traZODone HCL 100 MG TABLET PO (20:06)
[2023-03-13] MEDS: Melatonin 3 MG TABLET PO (20:06)
[2023-03-13] MEDS: Multivitamin TABLET 1 TAB PO (20:06)
[2023-03-13] MEDS: Famotidine 20 MG TABLET PO (20:24)
--- NOTE | 2023-03-13 22:25 | PC.NURSE ---
Hospitalist consult done, Pt was encouraged to take PRN Fleet enema as situation is being looked into.
--- NOTE | 2023-03-13 22:39 | P.EN_ITS ---
Event Note Date of Service: 03/13/23 Event Note: Pt seen and examined in follow up for constipation. Patient's lactulose was increased to BID earlier today after discussion with Dr. Bustos and she was given a one time dose of dulcolax. She is taking miralax and senna/docusate as well on a scheduled basis. FOllowing the dulcolax she had a very small hard bowel movement. Her last full bowel movement was several days ago following fleet enema, which she has ordered as daily prn. She has not had a fleet enema in 2 days. She is complaining of diffuse abdominal pain that has not worsened and has been ongoing for some time. There is no associated vomiting, nausea, or diarrhea. No fevers or chills. She also states she does not drink much water. On exam, abd is diffusely tender to palpation without guarding or rebound tenderness. Abd is soft, obese, nondistended. +BS. Recommend increasing the lactulose to TID, continue senna/docusate, miralax daily. She is educated that she must take in water to help the constipation and for these medications to work. Recommend gentle reminders to drink water. Recomm end uing the fleet enemas as ordered. If possible, recommend medication minimizing use of anticholinergic medications to help with some of the constipation. Also recommend gastroenterology consult if no improvements following these changes. If possible, obtain KUB but I have low suspicion for obstruction at this time. Please do not hesitate to reach out with further questions. Time Spent With Patient Time: Total time managing care of this patient today ____ minutes.
[2023-03-14] MEDS: Magnesium Hydrox/Alum Hydrox 30 ML ORAL.SUSP PO (04:35)
--- NOTE | 2023-03-14 08:56 | HO.PSYCHPN ---
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 unaware she is doing it and does not get verbal cues when conversation participant is backing away or trying to end a conversation; though redirectable, she will again get too close, again unaware.? In the milieu with peers, While she will sometimes spend time in the vicinity of others, she is mostly alongside people and not directly interacting with them.? That said, she will directly interact with staff. Intermittent Flapping arms; rocking Patient does make eye contact, however she stares the entire time she is engaged. ? She can have a logical conversation Patient has a blunted affect and though she can smile and laugh, she is otherwise expressionless with blunted affect. Patient has in flexibility regarding food when it is not as expected patient can get severely dysregulated Patient has some hypo-reactivity to loud noises and crowds of people. Conversely, She does get jokes, even subtle ones. Symptoms have clearly made life functioning extremely difficult.? It is unclear if patient has had neuropsych testing. She did spend time at [facility]. Secondary dx: PTSD: Patient has a history of trauma from both childhood experiences, as well as trauma that occurred while on inpatient unit at [facility] and [place].? She has also been institutionalized since a young age, away from her mother and father, feeling abandoned. Possibly (likely?) reactive attachment disorder.? She has several regressed behaviors and some child-like interests. Regarding Dissociative Disorder:? Patient has episodes of depersonalization and derealization which the typically arise when triggered and during which time she will feel detached from herself, from her body and feel as if things are unreal and dream like, with out a sense of time; after they conclude and she is again in the present, she can be upset about some behaviors she engaged in during the dissociate period once made aware. Not BPD: Regarding past references to borderline personality disorder, [employer] and team agree there have been no axis II traits expressed throughout her time in the hospital; none could be cleaned from records No psychotic illness: no psychotic symptoms past or present Med trials (via notes from [facility]) Depakote Zyprexa [place] Seroquel Lamictal Ziprasidone Invega Sustenna Abilify, Maintena, Astrada Risperdal BuSpar Lexapro Prozac Effexor Levothyroxine Haldol: Untolerated side effect Thorazine: Anaphylaxis [place]: Hives Patient educated on: diagnosis, medication risk/benefits and medical condition Informed Consent: understands Reason for continued inpatient stay Substantial Risk for: inability to function Time Spent With Patient Time: Total time managing care of this patient today ____ minutes.
[2023-03-14] MEDS: OLANZapine 5 MG TABLET PO ×2 (09:19→13:05)
[2023-03-14] MEDS: Furosemide 20 MG TABLET PO ×2 (09:19→16:42)
[2023-03-14] MEDS: Lactulose 20 GM/30 ML SOLUTION PO ×3 (09:19→21:25)
[2023-03-14] MEDS: Propranolol HCL LA 60 MG CAP.SA.24H 120 MG PO (09:19)
[2023-03-14] MEDS: Sennosides/Docusate Sodium TABLET 2 TAB PO ×2 (09:20→19:50)
[2023-03-14] MEDS: Loratadine 10 MG TABLET PO (09:20)
[2023-03-14] MEDS: clonazePAM 0.5 MG TABLET 1.5 MG PO ×3 (09:20→18:52)
[2023-03-14] MEDS: Divalproex Sodium Sprinkles 125 MG CAP.DR.SPR 1000 MG PO ×2 (09:21→19:51)
[2023-03-14] MEDS: Fluticasone Propionate Nasal 16 GM SPRAY 1 SPRAY NOSTRIL-B (09:24)
[2023-03-14 09:30] VITALS: BP 96/56; PULSE 86; RESP 16; TEMP 36.4; O2SAT 96
[2023-03-14] MEDS: Acetaminophen 325 MG TABLET 650 MG PO (09:33)
[2023-03-14] MEDS: Sodium Phosphate,Mono-Dibasic 133 ML ENEMA PR ×2 (09:33→11:03)
[2023-03-14] MEDS: polyethylene glycoL 3350 17 GM POWD.PACK PO ×4 (12:19→18:52)
[2023-03-14] MEDS: QUEtiapine Fumarate 50 MG TABLET 150 MG PO (16:42)
[2023-03-14] MEDS: Melatonin 3 MG TABLET PO (19:48)
[2023-03-14] MEDS: traZODone HCL 100 MG TABLET PO (19:48)
[2023-03-14] MEDS: Famotidine 20 MG TABLET PO (19:48)
[2023-03-14] MEDS: Multivitamin TABLET 1 TAB PO (19:48)
[2023-03-14] MEDS: OLANZapine 10 MG TABLET 20 MG PO (19:50)
[2023-03-14] MEDS: clomiPRAMINE HCl 25 MG CAPSULE 50 MG PO (19:50)
[2023-03-14] MEDS: diphenhydrAMINE HCL 25 MG CAPSULE 75 MG PO (19:50)
[2023-03-14] MEDS: Clotrimazole 1 % Cream 15 GM TUBE 1 APPL TOPICAL (19:51)
[2023-03-14 22:00] VITALS: RESP 16
--- NOTE | 2023-03-15 09:16 | P.PNPSI_ITS ---
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 a dx of ASD.? As observed on the unit, Patient frequently rocks back and forth, when standing or sitting, while talking to others or calming herself down.? Patient does not have a sense of a person's personal space and will get much to close to a person when talking; she is redirectable and apologizes but she is unaware she is doing it and does not get verbal cues when conversation participant is backing away or trying to end a conversation; though redirectable, she will again get too close, again unaware.? In the milieu with peers, While she will sometimes spend time in the vicinity of others, she is mostly alongside people and not directly interacting with them.? That said, she will directly interact with staff. Intermittent Flapping arms; rocking Patient does make eye contact, however she stares the entire time she is engaged. ? She can have a logical conversation Patient has a blunted affect and though she can smile and laugh, she is otherwise expressionless with blunted affect. Patient has in flexibility regarding food when it is not as expected patient can get severely dysregulated Patient has some hypo-reactivity to loud noises and crowds of people. Conversely, She does get jokes, even subtle ones. Symptoms have clearly made life functioning extremely difficult.? It is unclear if patient has had neuropsych testing. She did spend time at [facility]. Secondary dx: PTSD: Patient has a history of trauma from both childhood experiences, as well as trauma that occurred while on inpatient unit at [facility] and [place].? She has also been institutionalized since a young age, away from her mother and father, feeling abandoned. Possibly (likely?) reactive attachment disorder.? She has several regressed behaviors and some child-like interests. Regarding Dissociative Disorder:? Patient has episodes of depersonalization and derealization which the typically arise when triggered and during which time she will feel detached from herself, from her body and feel as if things are unreal and dream like, with out a sense of time; after they conclude and she is again in the present, she can be upset about some behaviors she engaged in during the dissociate period once made aware. Not BPD: Regarding past references to borderline personality disorder, Social Professionals and team agree there have been no axis II traits expressed throughout her time in the hospital; none could be cleaned from records No psychotic illness: no psychotic symptoms past or present Med trials (via notes from [facility]) Depakote Zyprexa Callaghan Seroquel Lamictal Ziprasidone Invega Sustenna Abilify, Maintena, Astrada Risperdal BuSpar Lexapro Prozac Effexor Levothyroxine Haldol: Untolerated side effect Thorazine: Anaphylaxis Callaghan: Hives Patient educated on: diagnosis and medication risk/benefits Informed Consent: understands Reason for continued inpatient stay Substantial Risk for: inability to function Time Spent With Patient Time: Total time managing care of this patient today ____ minutes.
[2023-03-15] MEDS: Divalproex Sodium Sprinkles 125 MG CAP.DR.SPR 1000 MG PO ×2 (10:20→20:24)
[2023-03-15] MEDS: clonazePAM 0.5 MG TABLET 1.5 MG PO ×3 (10:22→18:32)
[2023-03-15] MEDS: Propranolol HCL LA 60 MG CAP.SA.24H 120 MG PO (10:23)
[2023-03-15] MEDS: Furosemide 20 MG TABLET PO ×2 (10:23→18:33)
[2023-03-15] MEDS: Sennosides/Docusate Sodium TABLET 2 TAB PO ×2 (10:23→20:22)
[2023-03-15] MEDS: Loratadine 10 MG TABLET PO (10:23)
[2023-03-15] MEDS: OLANZapine 5 MG TABLET PO ×2 (10:23→13:39)
[2023-03-15] MEDS: Clotrimazole 1 % Cream 15 GM TUBE 1 APPL TOPICAL (10:24)
[2023-03-15 10:30] VITALS: BP 127/74; PULSE 84; RESP 16; TEMP 36.6; O2SAT 98
[2023-03-15] MEDS: Fluticasone Propionate Nasal 16 GM SPRAY 1 SPRAY NOSTRIL-B (10:41)
[2023-03-15] MEDS: polyethylene glycoL 3350 17 GM POWD.PACK PO ×4 (13:40→14:54)
--- NOTE | 2023-03-15 14:49 | PC.NURSE ---
PT continues to report constipation. NO bm on second shift yesterday. Per Dr. Bustos, initiated Miralax protocol, 1 packet q 20 minutes, up to 4 doses, hold for loose stool.
--- NOTE | 2023-03-15 15:11 | PC.NURSE ---
4th dose of Miralax given, pending effect.
[2023-03-15] MEDS: QUEtiapine Fumarate 50 MG TABLET 150 MG PO (18:33)
[2023-03-15 18:49] VITALS: BP 113/62; PULSE 81; RESP 16; TEMP 36.4; O2SAT 98
[2023-03-15] MEDS: Famotidine 20 MG TABLET PO (20:23)
[2023-03-15] MEDS: traZODone HCL 100 MG TABLET PO (20:23)
[2023-03-15] MEDS: clomiPRAMINE HCl 25 MG CAPSULE 50 MG PO (20:23)
[2023-03-15] MEDS: OLANZapine 10 MG TABLET 20 MG PO (20:23)
[2023-03-15] MEDS: Multivitamin TABLET 1 TAB PO (20:23)
[2023-03-15] MEDS: diphenhydrAMINE HCL 25 MG CAPSULE 75 MG PO (20:23)
[2023-03-15] MEDS: Chlorhexidine Gluc Oral Rinse 15 ML MOUTHWASH BUCCAL (20:24)
[2023-03-15] MEDS: Melatonin 3 MG TABLET PO (20:24)
[2023-03-15] MEDS: Lactulose 20 GM/30 ML SOLUTION PO (20:25)
--- NOTE | 2023-03-15 20:46 | PC.NURSE ---
Pt continues to reports constipation. No BM for the past two days. au pair provider Alberto lewis notified. Per order, continue current management for now.
[2023-03-16] MEDS: clonazePAM 0.5 MG TABLET 1.5 MG PO ×3 (08:48→19:48)
[2023-03-16] MEDS: Sennosides/Docusate Sodium TABLET 2 TAB PO (08:48)
[2023-03-16] MEDS: Furosemide 20 MG TABLET PO ×2 (08:48→17:19)
[2023-03-16] MEDS: Lactulose 20 GM/30 ML SOLUTION PO ×2 (08:48→14:11)
[2023-03-16] MEDS: OLANZapine 5 MG TABLET PO ×2 (08:48→14:11)
[2023-03-16] MEDS: Loratadine 10 MG TABLET PO (08:48)
[2023-03-16] MEDS: Divalproex Sodium Sprinkles 125 MG CAP.DR.SPR 1000 MG PO (08:48)
[2023-03-16] MEDS: Propranolol HCL LA 60 MG CAP.SA.24H 120 MG PO (08:48)
[2023-03-16] MEDS: Clotrimazole 1 % Cream 15 GM TUBE 1 APPL TOPICAL (08:49)
[2023-03-16 09:00] VITALS: BP 96/63; PULSE 76; RESP 16; TEMP 37.1; O2SAT 94
--- NOTE | 2023-03-16 09:35 | PC.NURSE ---
pt refused chlorhexidine mouth wash as it tastes repulsive . Nurse educated pt on importance of oral health and the benefits of the mouth wash. pt still declined. Will continue to encourage oral care and use of medicated mouth wash.
--- NOTE | 2023-03-16 10:55 | HO.PSYCHPN ---
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 She is linear, logical, articulate, insightful and organized in her thinking; she is organized in her behaviors.? Patient can have intrusive thoughts but only when triggered and this does not seem to be OCD.? She can have some rigid thinking in line with ASD.? Many of her dysregulated moments come from her PTSD being exacerbated.? Patient has well tolerated decrease of Zyprexa, decrease of Depakote and discontinuation of perphenazine. Primary dx: ASD. Patient's father and grandmother maintain that she met her milestones in childhood. 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 During childhood she attended [facility] in [place], treatment center typically for people with autism; in [place] when at [facility], she carried a dx of ASD.? As observed on the unit, Patient frequently rocks back and forth, when standing or sitting, while talking to others or calming herself down.? Patient does not have a sense of a person's personal space and will get much to close to a person when talking; she is redirectable and apologizes but she is unaware she is doing it and does not get verbal cues when conversation participant is backing away or trying to end a conversation; though redirectable, she will again get too close, again unaware.? In the milieu with peers, While she will sometimes spend time in the vicinity of others, she is mostly alongside people and not directly interacting with them.? That said, she will directly interact with staff. Intermittent Flapping arms; rocking Patient does make eye contact, however she stares the entire time she is engaged. ? She can have a logical conversation Patient has a blunted affect and though she can smile and laugh, she is otherwise expressionless with blunted affect. Patient has in flexibility regarding food when it is not as expected patient can get severely dysregulated Patient has some hypo-reactivity to loud noises and crowds of people. Conversely, She does get jokes, even subtle ones. Symptoms have clearly made life functioning extremely difficult.? It is unclear if patient has had neuropsych testing. She did spend time at [facility]. Secondary dx: PTSD: Patient has a history of trauma from both childhood experiences, as well as trauma that occurred while on inpatient unit at [facility] and [place].? She has also been institutionalized since a young age, away from her mother and father, feeling abandoned. Possibly (likely?) reactive attachment disorder.? She has several regressed behaviors and some child-like interests. Regarding Dissociative Disorder:? Patient has episodes of depersonalization and derealization which the typically arise when triggered and during which time she will feel detached from herself, from her body and feel as if things are unreal and dream like, with out a sense of time; after they conclude and she is again in the present, she can be upset about some behaviors she engaged in during the dissociate period once made aware. Not BPD: Regarding past references to borderline personality disorder, Medical Education Coordinator and team agree there have been no axis II traits expressed throughout her time in the hospital; none could be cleaned from records No psychotic illness: no psychotic symptoms past or present Med trials (via notes from [facility]) Depakote Zyprexa Paoli Seroquel Lamictal Ziprasidone Invega Sustenna Abilify, Maintena, Astrada Risperdal BuSpar Lexapro Prozac Effexor Levothyroxine Haldol: Untolerated side effect Thorazine: Anaphylaxis Paoli: Hives Reason for continued inpatient stay Substantial Risk for: harm to self, harm to others, inability to function and rapid decompensation Time Spent With Patient Time: Total time managing care of this patient today ____ minutes.
[2023-03-16] MEDS: Sodium Phosphate,Mono-Dibasic 133 ML ENEMA PR (14:59)
--- NOTE | 2023-03-16 15:12 | PC.NURSE ---
pt requested prn fleet enema due to increased constipation. enema administered and tolerated well. Nurse encouraged pt to increase fluid intake. Results of enema pending.
[2023-03-16 17:15] VITALS: BP 116/71; PULSE 83; TEMP 35.9
[2023-03-16] MEDS: QUEtiapine Fumarate 50 MG TABLET 150 MG PO (17:18)
--- NOTE | 2023-03-16 18:26 | PM.EVENT ---
Event Note Date of Service: 03/16/23 Event Note: GI Consult-Full note dictated Patient interviewed and examined with her nurse. Imp: Chronic and worsening constipation refractory to both oral and rectal medical therapy thus far. I'm sure this is at least partially related to some her of meds with their anticholinergic effects. Her exam and xrays do not show signs of obstruction, but it does appear that there is a lot of stool in her left colon. Her T4 was borderline low earlier this year as well. Rec: Attempt a bowel clean out tonight with a Miralax colonoscopy prep, as well as adding a daily dose of MOM and a nightly Glycerin suppository. I will keep the Senna orders and the other PRN orders as well. If she responds tonight I will then order some standing orders for Miralax and Fiber supplements. Recheck TFT's, other routine labs, and celiac disease labs. D/W patient and her nurse in detail. Marilynn seemed comfortable with the plan. Thanks Time Spent With Patient Time: Total time managing care of this patient today ____ minutes.
[2023-03-16] MEDS: Milk of Magnesia 30 ML ORAL.SUSP PO (19:48)
[2023-03-16] MEDS: Omeprazole 20 MG CAPSULE.DR PO (19:48)
[2023-03-16] MEDS: polyethylene glycoL 3350 17 GM POWD.PACK PO ×10 (20:03→23:45)
--- NOTE | 2023-03-16 21:12 | CONS_ITS ---
DATE OF SERVICE: 03/16/2023 REASON FOR CONSULTATION: Constipation and abdominal discomfort. HISTORY OF PRESENT ILLNESS: This has been obtained from the patient, the nursing staff, and the medical record. I interviewed and examined the patient along with the nurse wealth management director in the treatment room on the psychiatric floor. The patient is a 23-year-old female, who describes a very longstanding history of constipation that predates her hospitalization. She describes taking regimens at home including milk of magnesia with prune juice and MiraLAX with intermittent relief. However, she has had a very prolonged hospitalization here and is on numerous psychiatric medications and describes that her constipation has been worsening. She describes a full and uncomfortable feeling, particularly in the suprapubic area and left lower quadrant of the abdomen. She has been receiving suppositories and enemas with only minimal small, hard bowel movements. She has been receiving several doses of MiraLAX daily for the past few days, in addition to lactulose and Senokot. She has been experiencing some regurgitation, but denies any vomiting or nausea. Her appetite and intake have remained normal, and in fact she eats quite a bit according to the staff.. She has not noticed any sign of hematochezia nor melena. She denies any dysphagia, but does have intermittent heartburn, as well as the regurgitation. She denies any jaundice. She does feel that her abdomen is somewhat distended. She denies any urinary difficulties. She denies any known family history of significant GI problems. In reviewing her laboratories since early in the year, she did have slightly elevated TSH levels with the highest being 5.20 in November. She had a free T4 level of 0.93 in November, at which time, her TSH was 4.76. She has never had a colonoscopy. CURRENT MEDICATIONS: Include acetaminophen, alprazolam p.r.n., Dulcolax suppository p.r.n., clomipramine 50 mg at bedtime, clonazepam 1.5 mg t.i.d., diphenhydramine at bedtime, Depakote b.i.d., fluticasone nasal spray, Lasix 20 mg b.i.d., ibuprofen p.r.n., lactulose 20 g t.i.d., Claritin 10 mg daily, Mylanta p.r.n., melatonin 3 mg at bedtime, multivitamins daily, naproxen p.r.n., olanzapine 20 mg at bedtime and 5 mg b.i.d., famotidine, propranolol, Seroquel 150 mg daily, Senokot with docusate sodium b.i.d., Fleet enema p.r.n., trazodone 50 mg at bedtime p.r.n., Geodon 20 mg b.i.d. p.r.n. PAST MEDICAL HISTORY: Asthma, PTSD, suicidal ideation, positive CHARLES, peripheral edema, amenorrhea, intermittent explosive disorder. She denies any surgeries. SOCIAL HISTORY: She denies tobacco nor alcohol. FAMILY HISTORY: Noncontributory. REVIEW OF SYSTEMS: CONSTITUTIONAL: Appetite is good. SKIN: Without rash. No pruritus. CARDIAC: No chest pain. PULMONARY: No coughing or hemoptysis. GI: As above. URINARY: No dysuria. No hematuria. NEUROLOGIC: No headache or seizures. PSYCHIATRIC: As above. PHYSICAL EXAMINATION: GENERAL: The patient is a pleasant, alert, cooperative female in no distress. SKIN: Warm and dry. Nonjaundiced. HEENT: Anicteric sclerae. Moist mucous membranes. CHEST: Clear. CARDIAC: Normal S1, S2.. ABDOMEN: Soft, minimally distended, nontender without palpable mass, rebound, or guarding. Bowel sounds are somewhat diminished, but otherwise present. NEUROLOGIC: She seems to be alert and oriented. LABORATORY DATA: Laboratories as above. She did have an abdominal x-ray today that does not show any sign of obstruction, but does show a fair amount of stool in the left colon. The right colon does not seem to be full of stool. There is no significant bowel dilatation. Her most recent labs from December showed a white count 7.5, hemoglobin 12.8, platelets 117,000. Sodium 141, potassium 4.6, chloride 110, CO2 of 20, BUN 22, creatinine 0.8, calcium 9.4, magnesium 1.7. Total bilirubin 0.3, AST 30, ALT 14, alkaline phosphatase 48, albumin 3.7. Thyroid studies as above. She had normal B12 and folate levels in November. She had a CT scan of her chest back in January that was negative for any acute pulmonary disease. It does describe a small sliding hiatal hernia. The upper abdominal organs including the intestines appeared unremarkable at that time. IMPRESSION: The patient is a young woman with significant psychiatric issues, on multiple psychiatric medications, who has been having worsening of her long-standing constipation. At the present time, I do suspect some of her psychiatric medicines with their anticholinergic side effects are definitely contributing to this situation. She does not show any signs of obstruction on her abdominal x-ray nor by her exam today. She did have some borderline thyroid studies early in the year. At this point, I would recommend an attempt at a colonoscopy prep with MiraLAX, although she does not need a colonoscopy. However, given her refractory symptoms, I think a complete prep at this point would be advisable. We did review that it may cause some cramping and discomfort for her, but at this point since she is not obstructed, I think it is safe to proceed with that. Clearly the other oral treatments and rectal treatments are not helping. In addition, I have ordered a standing dose of milk of magnesia with prune juice that she does report that tends to help her. She will continue the Senokot and resume lactulose in 24 hours. I do not think any further imaging studies are needed nor does she need a colonoscopy at this time. I would recheck her thyroid studies, along with chemistries, CBC, LFTs, Calcium, Magnesium, and celiac disease labs. We did review that her psychiatric medicines may very well be contributing to her constipation, but nonetheless she does apparently definitely need her psychiatric medications, so we will try to help relieve the constipation side effect for her. If she does respond to the MiraLAX prep this evening, then we could get her on a standing dose of some MiraLAX and some fiber supplements daily to hopefully prevent any recurrent problems of significant constipation. In addition, I shall switch her famotidine to omeprazole for better relief of reflux. I did advise her that the reflux would also improve hopefully once the constipation has been treated. This has all been discussed in detail with the patient and her nurse. The patient is comfortable with this plan. Thank you for the consultation. MD IMANI Everett/RAMONITA / [phone] BRISA
[2023-03-17] MEDS: polyethylene glycoL 3350 17 GM POWD.PACK PO ×8 (00:04→21:03)
[2023-03-17] MEDS: OLANZapine 10 MG TABLET 20 MG PO ×2 (02:14→20:49)
[2023-03-17] MEDS: clomiPRAMINE HCl 25 MG CAPSULE 50 MG PO ×2 (02:14→20:48)
[2023-03-17] MEDS: diphenhydrAMINE HCL 25 MG CAPSULE 75 MG PO ×2 (02:14→20:49)
[2023-03-17] MEDS: Melatonin 3 MG TABLET PO ×2 (02:15→20:48)
[2023-03-17] MEDS: traZODone HCL 100 MG TABLET PO ×2 (02:15→20:49)
[2023-03-17] MEDS: Multivitamin TABLET 1 TAB PO ×2 (02:15→20:50)
[2023-03-17] MEDS: Divalproex Sodium Sprinkles 125 MG CAP.DR.SPR 1000 MG PO ×3 (02:15→20:40)
[2023-03-17] MEDS: Sennosides/Docusate Sodium TABLET 2 TAB PO ×2 (02:15→20:43)
--- NOTE | 2023-03-17 05:37 | PC.NURSE ---
Patient stated she moved her bowels successfully several times between [id number].
[2023-03-17 07:39] LABS: MANUAL DIFF FLAG NO
[2023-03-17 07:42] LABS: Basophils Percent Auto 0.5 % (0-2); Eosinophils Absolute Auto 0.3 X10*3/uL (0.0-0.4); Hematocrit 36.8 % (37.0-47.0); Hemoglobin 12.1 g/dl (12.0-16.0); Imm Gran Abs Auto 0.01 X10*3/uL (0.00-0.03); Imm Gran Pct Auto 0.1 % (0.0-0.4); Lymphocytes Absolute Auto 4.3 X10*3/uL (1.2-4.9); Lymphocytes Percent Auto 53.6 % (20-40); Mean Corpuscular HGB Conc 32.9 g/dl (31.0-35.0); Mean Corpuscular Hemoglobin 30.7 pg (27.0-33.0); Mean Corpuscular Volume 93.4 fL (80.0-98.0); Mean Platelet Volume 10.5 fL (9.4-12.3); Monocytes Absolute Auto 1.1 X10*3/uL (0.1-1.2); Monocytes Percent Auto 14.1 % (2-11); Neutrophils Absolute Auto 2.2 x10*3/uL (2.0-8.3); Neutrophils Percent Auto 27.7 % (45-73); Platelet Count 183 X10*3/uL (160-400); Red Blood Count 3.94 X10*6/uL (4.20-5.50)
[2023-03-17 08:03] VITALS: BP 115/62; PULSE 76; RESP 16; TEMP 36.9; O2SAT 95
[2023-03-17 08:08] LABS: Alanine Aminotransferase 14 U/L (0-31); Albumin Level 3.6 g/dL (3.5-5.0); Alkaline Phosphatase 39 U/L (39-117); Anion Gap 12 (12-20); Aspartate Amino Transferase 17 U/L (5-31); Bilirubin Direct 0.1 mg/dL (0.0-0.5); Bilirubin Total 0.3 mg/dL (0.0-1.0); Blood Urea Nitrogen 21 mg/dL (9-16); Calcium 9.2 mg/dL (8.4-10.2); Carbon Dioxide 24 mmol/L (22-29); Chloride 107 mmol/L (96-108); Creatinine Clr Calc Pharmacy 175.8; Estimated Glomerular Filt Rate > 60; Glucose Random 99 mg/dL (60-115); Potassium 4.2 mmol/L (3.3-5.1); Sodium 139 mmol/L (135-145); Total Protein 6.6 g/dL (6.5-8.0)
[2023-03-17 08:24] LABS: Thyroid Stimulating Hormone 7.14 uIU/mL (0.32-4.0)
[2023-03-17] MEDS: Furosemide 20 MG TABLET PO ×2 (09:21→17:17)
[2023-03-17] MEDS: clonazePAM 0.5 MG TABLET 1.5 MG PO ×3 (09:21→20:47)
[2023-03-17] MEDS: Loratadine 10 MG TABLET PO (09:21)
[2023-03-17] MEDS: Propranolol HCL LA 60 MG CAP.SA.24H 120 MG PO (09:22)
[2023-03-17] MEDS: Fluticasone Propionate Nasal 16 GM SPRAY 1 SPRAY NOSTRIL-B (09:22)
[2023-03-17] MEDS: OLANZapine 5 MG TABLET PO ×2 (09:22→14:24)
[2023-03-17] MEDS: Omeprazole 20 MG CAPSULE.DR PO (09:22)
--- NOTE | 2023-03-17 12:58 | PM.EVENT ---
Event Note Date of Service: 03/17/23 Event Note: GI-Reviewed patient's overnight course with her nurse via a phone call today. The patient had a good response to the Miralax colonoscopy prep last PM with multiple BM's and is presently feeling better with less abdominal discomfort/fullness. She is eating well and without N/V. She still had some soft, loose stools today. At this point I have placed orders for a bowel regimen that she needs daily to hopefully maintain some degree of regularity to avoid another situation of the significant constipation that she experienced. Given her longstanding history of the constipation and her psychiatric medical regimen that she is on, she clearly needs close attention in this regard. I have ordered Miralax BID, Metamucil daily, and a high fiber diet. I ordered a dose of po Dulcolax to be given every 48 hours if she doesn't have a good BM within a 48 hour time frame. I will continue the Senna with stool softeners as previously ordered. I will discontinue the Lactulose as it didn't seem to be helping anyway. She should be encouraged to have water and prune juice daily. Her labs today all look good except for a high TSH. A T4 level is pending and she may need treatment for that by the medical service or Endocrinology. Please contact me if it looks like her regimen needs adjustment, i.e.: if she is having too many BM's or not enough. Thanks Time Spent With Patient Time: Total time managing care of this patient today ____ minutes.
[2023-03-17 13:05] LABS: Free T4 (Free Thyroxine) 0.82 ng/dL (0.71-1.85)
[2023-03-17 17:05] VITALS: BP 113/70; PULSE 79; TEMP 36.3
[2023-03-17] MEDS: QUEtiapine Fumarate 50 MG TABLET 150 MG PO (17:16)
[2023-03-17] MEDS: Ziprasidone 20 MG CAPSULE PO (17:36)
[2023-03-17] MEDS: ALPRAZolam 0.5 MG TABLET PO (17:36)
--- NOTE | 2023-03-17 18:21 | P.PNPSI_ITS ---
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 Impression: Patient is a fun, intelligent, cooperative and friendly person. When she gets triggered by something she can decompensate severely, dissociate and become physically aggressive.? Patient is now diagnosed with ASD, PTSD, and intermittent explosive disorder.? From [facility], she carried the diagnosis of Schizoaffective disorder and mention of borderline personality disorder.? Both of these have been ruled out.? 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 She is linear, logical, articulate, insightful and or ganized in her thinking; she is organized in her behaviors.? Patient can have intrusive thoughts but only when triggered and this does not seem to be OCD.? She can have some rigid thinking in line with ASD.? Many of her dysregulated moments come from her PTSD being exacerbated.? Patient has well tolerated decrease of Zyprexa, decrease of Depakote and discontinuation of perphenazine. Primary dx: ASD. Patient's father and grandmother maintain that she met her milestones in childhood. 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 During childhood she attended [facility] in [place], treatment center typically for people with autism; in [place] when at [facility], she carried a dx of ASD.? As observed on the unit, Patient frequently rocks back and forth, when standing or sitting, while talking to others or calming herself down.? Patient does not have a sense of a person's personal space and will get much to close to a person when talking; she is redirectable and apologizes but she is unaware she is doing it and does not get verbal cues when conversation participant is backing away or trying to end a conversation; though redirectable, she will again get too close, again unaware.? In the milieu with peers, While she will sometimes spend time in the vicinity of others, she is mostly alongside people and not directly interacting with them.? That said, she will directly interact with staff. Intermittent Flapping arms; rocking Patient does make eye contact, however she stares the entire time she is engaged. ? She can have a logical conversation Patient has a blunted affect and though she can smile and laugh, she is otherwise expressionless with blunted affect. Patient has in flexibility regarding food when it is not as expected patient can get severely dysregulated Patient has some hypo-reactivity to loud noises and crowds of people. Conversely, She does get jokes, even subtle ones. Symptoms have clearly made life functioning extremely difficult.? It is unclear if patient has had neuropsych testing. She did spend time at [facility]. Secondary dx: PTSD: Patient has a history of trauma from both childhood experiences, as well as trauma that occurred while on inpatient unit at [facility] and [place].? She has also been institutionalized since a young age, away from her mother and father, feeling abandoned. Possibly (likely?) reactive attachment disorder.? She has several regressed behaviors and some child-like interests. Regarding Dissociative Disorder:? Patient has episodes of depersonalization and derealization which the typically arise when triggered and during which time she will feel detached from herself, from her body and feel as if things are unreal and dream like, with out a sense of time; after they conclude and she is again in the present, she can be upset about some behaviors she engaged in during the dissociate period once made aware. Not BPD: Regarding past references to borderline personality disorder, Automatic Developer and team agree there have been no axis II traits expressed throughout her time in the hospital; none could be cleaned from records No psychotic illness: no psychotic symptoms past or present Med trials (via notes from [facility]) Depakote Zyprexa [place] Seroquel Lamictal Ziprasidone Inve[place] Carmel Gutiérreza, [place] Risperdal BuSpar Lexapro Prozac Effexor Levothyroxine Haldol: Untolerated side effect Thorazine: Anaphylaxis [place]: Hives Reason for continued inpatient stay Substantial Risk for: harm to others, inability to function and rapid decompensation Time Spent With Patient Time: Total time managing care of this patient today ____ minutes.
[2023-03-18 08:01] VITALS: BP 129/78; PULSE 84; RESP 16; TEMP 36.9; O2SAT 97
[2023-03-18] MEDS: Fluticasone Propionate Nasal 16 GM SPRAY 1 SPRAY NOSTRIL-B (08:52)
[2023-03-18] MEDS: Divalproex Sodium Sprinkles 125 MG CAP.DR.SPR 1000 MG PO ×2 (08:52→20:43)
[2023-03-18] MEDS: Omeprazole 20 MG CAPSULE.DR PO (08:53)
[2023-03-18] MEDS: clonazePAM 0.5 MG TABLET 1.5 MG PO ×3 (08:53→19:34)
[2023-03-18] MEDS: Sennosides/Docusate Sodium TABLET 2 TAB PO ×2 (08:53→19:34)
[2023-03-18] MEDS: Propranolol HCL LA 60 MG CAP.SA.24H 120 MG PO (08:53)
[2023-03-18] MEDS: Furosemide 20 MG TABLET PO ×2 (08:53→15:59)
[2023-03-18] MEDS: OLANZapine 5 MG TABLET PO ×2 (08:53→15:59)
[2023-03-18] MEDS: Loratadine 10 MG TABLET PO (09:00)
--- NOTE | 2023-03-18 09:24 | PC.NURSE ---
pt reports watery stool and refused Miralax. Pt was receptive to taking fiber supplement to create bulk. Encourage to consume fluids.
--- NOTE | 2023-03-18 09:55 | P.PNPSI_ITS ---
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 Impression: Patient is a fun, intelligent, cooperative and friendly person. When she gets triggered by something she can decompensate severely, dissociate and become physically aggressive.? Patient is now diagnosed with ASD, PTSD, and intermittent explosive disorder.? From [facility], she carried the diagnosis of Schizoaffective disorder and mention of borderline personality disorder.? Both of these have been ruled out.? 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 She is linear, logical, articulate, insightful and organized in her thinking; she is organized in her behaviors.? Patient can have intrusive thoughts but only when triggered and this does not seem to be OCD.? She can have some rigid thinking in line with ASD.? Many of her dysregulated moments come from her PTSD being exacerbated.? Patient has well tolerated decrease of Zyprexa, decrease of Depakote and discontinuation of perphenazine. Primary dx: ASD. Patient's father and grandmother maintain that she met her milestones in childhood. 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 During childhood she attended [facility] in [place], treatment center typically for people with autism; in [place] when at [facility], she carried a dx of ASD.? As observed on the unit, Patient frequently rocks back and forth, when standing or sitting, while talking to others or calming herself down.? Patient does not have a sense of a person's personal space and will get much to close to a person when talking; she is redirectable and apologizes but she is unaware she is doing it and does not get verbal cues when conversation participant is backing away or trying to end a conversation; though redirectable, she will again get too close, again unaware.? In the milieu with peers, While she will sometimes spend time in the vicinity of others, she is mostly alongside people and not directly interacting with them.? That said, she will directly interact with staff. Intermittent Flapping arms; rocking Patient does make eye contact, however she stares the entire time she is engaged. ? She can have a logical conversation Patient has a blunted affect and though she can smile and laugh, she is otherwise expressionless with blunted affect. Patient has in flexibility regarding food when it is not as expected patient can get severely dysregulated Patient has some hypo-reactivity to loud noises and crowds of people. Conversely, She does get jokes, even subtle ones. Symptoms have clearly made life functioning extremely difficult.? It is unclear if patient has had neuropsych testing. She did spend time at [facility]. Secondary dx: PTSD: Patient has a history of trauma from both childhood experiences, as well as trauma that occurred while on inpatient unit at [facility] and [place].? She has also been institutionalized since a young age, away from her mother and father, feeling abandoned. Possibly (likely?) reactive attachment disorder.? She has several regressed behaviors and some child-like interests. Regarding Dissociative Disorder:? Patient has episodes of depersonalization and derealization which the typically arise when triggered and during which time she will feel detached from herself, from her body and feel as if things are unreal and dream like, with out a sense of time; after they conclude and she is again in the present, she can be upset about some behaviors she engaged in during the dissociate period once made aware. Not BPD: Regarding past references to borderline personality disorder, Animal Caregiver and team agree there have been no axis II traits expressed throughout her time in the hospital; none could be cleaned from records No psychotic illness: no psychotic symptoms past or present Med trials (via notes from [facility]) Depakote Zyprexa [place] Seroquel Lamictal Ziprasidone Invega Sustenna Abilify, Maintena, Astrada Risperdal BuSpar Lexapro Prozac Effexor Levothyroxine Haldol: Untolerated side effect Thorazine: Anaphylaxis [place]: Hives Reason for continued inpatient stay Substantial Risk for: harm to others, inability to function and rapid decompensation Time Spent With Patient Time: Total time managing care of this patient today ____ minutes.
[2023-03-18] MEDS: polyethylene glycoL 3350 17 GM POWD.PACK PO (10:12)
[2023-03-18] MEDS: Chlorhexidine Gluc Oral Rinse 15 ML MOUTHWASH BUCCAL ×2 (10:12→19:49)
[2023-03-18] MEDS: QUEtiapine Fumarate 50 MG TABLET 150 MG PO (18:28)
[2023-03-18 19:09] VITALS: BP 150/64; PULSE 89; RESP 18; TEMP 36.6; O2SAT 97
[2023-03-18] MEDS: OLANZapine 10 MG TABLET 20 MG PO (19:30)
[2023-03-18] MEDS: Multivitamin TABLET 1 TAB PO (19:34)
[2023-03-18] MEDS: clomiPRAMINE HCl 25 MG CAPSULE 50 MG PO (19:35)
[2023-03-18] MEDS: Melatonin 3 MG TABLET PO (19:36)
[2023-03-18] MEDS: traZODone HCL 100 MG TABLET PO (19:36)
[2023-03-18] MEDS: Ziprasidone 20 MG CAPSULE PO (19:36)
[2023-03-18] MEDS: diphenhydrAMINE HCL 25 MG CAPSULE 75 MG PO (20:42)
[2023-03-19 09:35] VITALS: BP 110/64; PULSE 92; RESP 18; TEMP 36.6; O2SAT 96
[2023-03-19] MEDS: Sennosides/Docusate Sodium TABLET 2 TAB PO ×2 (09:40→19:57)
[2023-03-19] MEDS: Loratadine 10 MG TABLET PO (09:40)
[2023-03-19] MEDS: clonazePAM 0.5 MG TABLET 1.5 MG PO ×3 (09:40→19:19)
[2023-03-19] MEDS: Chlorhexidine Gluc Oral Rinse 15 ML MOUTHWASH BUCCAL ×2 (09:40→19:56)
[2023-03-19] MEDS: Divalproex Sodium Sprinkles 125 MG CAP.DR.SPR 1000 MG PO ×2 (09:40→19:56)
[2023-03-19] MEDS: Furosemide 20 MG TABLET PO ×2 (09:40→19:24)
[2023-03-19] MEDS: polyethylene glycoL 3350 17 GM POWD.PACK PO ×2 (09:40→20:14)
[2023-03-19] MEDS: Propranolol HCL LA 60 MG CAP.SA.24H 120 MG PO (09:41)
[2023-03-19] MEDS: Fluticasone Propionate Nasal 16 GM SPRAY 1 SPRAY NOSTRIL-B (09:41)
[2023-03-19] MEDS: OLANZapine 5 MG TABLET PO ×2 (09:41→14:17)
[2023-03-19] MEDS: Omeprazole 20 MG CAPSULE.DR PO (09:41)
--- NOTE | 2023-03-19 10:07 | P.PNPSI_ITS ---
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 and other institutions).? She is linear, logical, articulate, insightful and organized in her thinking; she is organized in her behaviors.? Patient can have intrusive thoughts but only when triggered and this does not seem to be OCD.? She can have some rigid thinking in line with ASD.? Many of her dysregulated moments come from her PTSD being exacerbated.? Patient has well tolerated decrease of Zyprexa, decrease of Depakote and discontinuation of perphenazine. Primary dx: ASD. Patient's father and grandmother maintain that she met her milestones in childhood. 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 During childhood she attended [facility] in [place], treatment center typically for people with autism; in [place] when at [facility], she carried a dx of ASD.? As observed on the unit, Patient frequently rocks back and forth, when standing or sitting, while talking to others or calming herself down.? Patient does not have a sense of a person's personal space and will get much to close to a person when talking; she is redirectable and apologizes but she is unaware she is doing it and does not get verbal cues when conversation participant is backing away or trying to end a conversation; though redirectable, she will again get too close, again unaware.? In the milieu with peers, While she will sometimes spend time in the vicinity of others, she is mostly alongside people and not directly interacting with them.? That said, she will directly interact with staff. Intermittent Flapping arms; rocking Patient does make eye contact, however she stares the entire time she is engaged. ? She can have a logical conversation Patient has a blunted affect and though she can smile and laugh, she is otherwise expressionless with blunted affect. Patient has in flexibility regarding food when it is not as expected patient can get severely dysregulated Patient has some hypo-reactivity to loud noises and crowds of people. Conversely, She does get jokes, even subtle ones. Symptoms have clearly made life functioning extremely difficult.? It is unclear if patient has had neuropsych testing. She did spend [facility] at [facility]. Secondary dx: PTSD: Patient has a history of trauma from both childhood experiences, as well as trauma that occurred while on inpatient unit at [facility] and [place].? She has also been institutionalized since a young age, away from her mother and father, feeling abandoned. Possibly (likely?) reactive attachment disorder.? She has several regressed behaviors and some child-like interests. Regarding Dissociative Disorder:? Patient has episodes of depersonalization and derealization which the typically arise when triggered and during which time she will feel detached from herself, from her body and feel as if things are unreal and dream like, with out a sense of time; after they conclude and she is again in the present, she can be upset about some behaviors she engaged in during the dissociate period once made aware. Not BPD: Regarding past references to borderline personality disorder, Piecer and team agree there have been no axis II traits expressed throughout her time in the hospital; none could be cleaned from records No psychotic illness: no psychotic symptoms past or present Med trials (via notes from [facility]) Depakote Zyprexa [place] Seroquel Lamictal Ziprasidone Invega Sustenna Abilify, Maintena, Astr[place] Risperdal BuSpar Lexapro Prozac Effexor Levothyroxine Haldol: Untolerated side effect Thorazine: Anaphylaxis [place]: Hives Patient educated on: diagnosis, medication risk/benefits and medical condition Informed Consent: understands Reason for continued inpatient stay Substantial Risk for: inability to function Time Spent With Patient Time: Total time managing care of this patient today ____ minutes.
[2023-03-19] MEDS: QUEtiapine Fumarate 50 MG TABLET 150 MG PO (19:19)
[2023-03-19] MEDS: diphenhydrAMINE HCL 25 MG CAPSULE 75 MG PO (19:56)
[2023-03-19] MEDS: OLANZapine 10 MG TABLET 20 MG PO (19:56)
[2023-03-19] MEDS: traZODone HCL 100 MG TABLET PO (19:58)
[2023-03-19] MEDS: Melatonin 3 MG TABLET PO (19:58)
[2023-03-19] MEDS: Multivitamin TABLET 1 TAB PO (19:58)
[2023-03-19] MEDS: clomiPRAMINE HCl 25 MG CAPSULE 50 MG PO (19:59)
[2023-03-19 22:00] VITALS: BP 116/72; PULSE 92; TEMP 36.6; O2SAT 96
[2023-03-20] MEDS: Divalproex Sodium Sprinkles 125 MG CAP.DR.SPR 1000 MG PO ×2 (09:08→21:24)
[2023-03-20] MEDS: Chlorhexidine Gluc Oral Rinse 15 ML MOUTHWASH BUCCAL ×2 (09:11→21:47)
[2023-03-20] MEDS: polyethylene glycoL 3350 17 GM POWD.PACK PO ×2 (09:12→21:23)
[2023-03-20] MEDS: Fluticasone Propionate Nasal 16 GM SPRAY 1 SPRAY NOSTRIL-B ×3 (09:12→11:38)
[2023-03-20] MEDS: Loratadine 10 MG TABLET PO (09:13)
[2023-03-20] MEDS: Omeprazole 20 MG CAPSULE.DR PO (09:13)
[2023-03-20] MEDS: Propranolol HCL LA 60 MG CAP.SA.24H 120 MG PO (09:13)
[2023-03-20] MEDS: Sennosides/Docusate Sodium TABLET 2 TAB PO ×2 (09:13→21:24)
[2023-03-20] MEDS: clonazePAM 0.5 MG TABLET 1.5 MG PO ×3 (09:13→19:54)
[2023-03-20] MEDS: OLANZapine 5 MG TABLET PO ×2 (09:13→14:44)
[2023-03-20] MEDS: Furosemide 20 MG TABLET PO ×2 (09:13→17:31)
--- NOTE | 2023-03-20 09:54 | P.PNPSI_ITS ---
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 in her thinking; she is organized in her behaviors.? Patient can have intrusive thoughts but only when triggered and this does not seem to be OCD.? She can have some rigid thinking in line with ASD.? Many of her dysregulated moments come from her PTSD being exacerbated.? Patient has well tolerated decrease of Zyprexa, decrease of Depakote and discontinuation of perphenazine. Primary dx: ASD. Patient's father and grandmother maintain that she met her milestones in childhood. 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 During childhood she attended [facility] in [place], treatment center typically for people with autism; in [place] when at [facility], she carried a dx of ASD.? As observed on the unit, Patient frequently rocks back and forth, when standing or sitting, while talking to others or calming herself down.? Patient does not have a sense of a person's personal space and will get much to close to a person when talking; she is redirectable and apologizes but she is unaware she is doing it and does not get verbal cues when conversation participant is backing away or trying to end a conversation; though redirectable, she will again get too close, again unaware.? In the milieu with peers, While she will sometimes spend time in the vicinity of others, she is mostly alongside people and not directly interacting with them.? That said, she will directly interact with staff. Intermittent Flapping arms; rocking Patient does make eye contact, however she stares the entire time she is engaged. ? She can have a logical conversation Patient has a blunted affect and though she can smile and laugh, she is otherwise expressionless with blunted affect. Patient has in flexibility regarding food when it is not as expected patient can get severely dysregulated Patient has some hypo-reactivity to loud noises and crowds of people. Conversely, She does get jokes, even subtle ones. Symptoms have clearly made life functioning extremely difficult.? It is unclear if patient has had neuropsych testing. She did spend time at [facility]. Secondary dx: PTSD: Patient has a history of trauma from both childhood experiences, as well as trauma that occurred while on inpatient unit at [facility] and [place].? She has also been institutionalized since a young age, away from her mother and father, feeling abandoned. Possibly (likely?) reactive attachment disorder.? She has several regressed behaviors and some child-like interests. Regarding Dissociative Disorder:? Patient has episodes of depersonalization and derealization which the typically arise when triggered and during which time she will feel detached from herself, from her body and feel as if things are unreal and dream like, with out a sense of time; after they conclude and she is again in the present, she can be upset about some behaviors she engaged in during the dissociate period once made aware. Not BPD: Regarding past references to borderline personality disorder, [employer] and team agree there have been no axis II traits expressed throughout her time in the hospital; none could be cleaned from records No psychotic illness: no psychotic symptoms past or present Med trials (via notes from [facility]) Depakote Zyprexa [place] Seroquel Lamictal Ziprasidone Invega Sustenna Abilify, Maintena, Astrada Risperdal BuSpar Lexapro Prozac Effexor Levothyroxine Haldol: Untolerated side effect Thorazine: Anaphylaxis [place]: Hives Reason for continued inpatient stay Substantial Risk for: inability to function Time Spent With Patient Time: Total time managing care of this patient today ____ minutes.
[2023-03-20 10:00] VITALS: BP 133/76; TEMP 36.7
[2023-03-20] MEDS: Ziprasidone Mesylate 20 MG VIAL IM (10:40)
[2023-03-20] MEDS: QUEtiapine Fumarate 50 MG TABLET 150 MG PO (17:44)
[2023-03-20] MEDS: OLANZapine 10 MG TABLET 20 MG PO (21:23)
[2023-03-20] MEDS: traZODone HCL 100 MG TABLET PO (21:23)
[2023-03-20] MEDS: Multivitamin TABLET 1 TAB PO (21:23)
[2023-03-20] MEDS: diphenhydrAMINE HCL 25 MG CAPSULE 75 MG PO (21:23)
[2023-03-20] MEDS: clomiPRAMINE HCl 25 MG CAPSULE 50 MG PO (21:23)
[2023-03-20] MEDS: Melatonin 3 MG TABLET PO (21:23)
[2023-03-20 22:00] VITALS: BP 125/69; PULSE 118; TEMP 36.8; O2SAT 98
[2023-03-21 07:00] VITALS: BMI 42.5
[2023-03-21 09:12] VITALS: BP 121/71; PULSE 97; RESP 16; TEMP 36.4; O2SAT 94
[2023-03-21] MEDS: Chlorhexidine Gluc Oral Rinse 15 ML MOUTHWASH BUCCAL ×2 (09:49→21:44)
[2023-03-21] MEDS: OLANZapine 5 MG TABLET PO ×2 (09:50→14:26)
[2023-03-21] MEDS: Furosemide 20 MG TABLET PO ×2 (09:50→16:14)
[2023-03-21] MEDS: Divalproex Sodium Sprinkles 125 MG CAP.DR.SPR 1000 MG PO ×2 (09:50→21:40)
[2023-03-21] MEDS: clonazePAM 0.5 MG TABLET 1.5 MG PO ×3 (09:50→19:56)
[2023-03-21] MEDS: Propranolol HCL LA 60 MG CAP.SA.24H 120 MG PO (09:50)
[2023-03-21] MEDS: Omeprazole 20 MG CAPSULE.DR PO (09:50)
[2023-03-21] MEDS: Loratadine 10 MG TABLET PO (09:50)
[2023-03-21] MEDS: Milk of Magnesia 30 ML ORAL.SUSP PO (09:50)
[2023-03-21] MEDS: polyethylene glycoL 3350 17 GM POWD.PACK PO ×2 (09:51→21:41)
[2023-03-21 13:27] LABS: Gliadin Deamidated IgA Ab <1.0 U/mL; Gliadin Deamidated IgG Ab <1.0 U/mL; Transglutaminase Ab IgG <1.0 U/mL; Transglutaminase IgA <1.0 U/mL
[2023-03-21 14:47] VITALS: BP 127/82; PULSE 91; RESP 16; TEMP 36.4; O2SAT 97
[2023-03-21 15:26] VITALS: BMI 42.5
[2023-03-21] MEDS: Ibuprofen 600 MG TABLET PO (16:14)
[2023-03-21] MEDS: QUEtiapine Fumarate 50 MG TABLET 150 MG PO (16:14)
[2023-03-21] MEDS: Ziprasidone Mesylate 20 MG VIAL IM (17:10)
--- NOTE | 2023-03-21 17:10 | PC.NURSE ---
20mg of geodone given per order. Medication well tolerated.
--- NOTE | 2023-03-21 17:48 | HO.PSYCHPN ---
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 dissociate and become physically aggressive.? Patient is now diagnosed with ASD, PTSD, and intermittent explosive disorder.? From [facility], she carried the diagnosis of Schizoaffective disorder and mention of borderline personality disorder.? Both of these have been ruled out.? 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 She is linear, logical, articulate, insightful and organized in her thinking; she is organized in her behaviors.? Patient can have intrusive thoughts but only when triggered and this does not seem to be OCD.? She can have some rigid thinking in line with ASD.? Many of her dysregulated moments come from her PTSD being exacerbated.? Patient has well tolerated decrease of Zyprexa, decrease of Depakote and discontinuation of perphenazine. Primary dx: ASD. Patient's father and grandmother maintain that she met her milestones in childhood. 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 During childhood she attended [facility] in [place], treatment center typically for people with autism; in [place] when at [facility], she carried a dx of ASD.? As observed on the unit, Patient frequently rocks back and forth, when standing or sitting, while talking to others or calming herself down.? Patient does not have a sense of a person's personal space and will get much to close to a person when talking; she is redirectable and apologizes but she is unaware she is doing it and does not get verbal cues when conversation participant is backing away or trying to end a conversation; though redirectable, she will again get too close, again unaware.? In the milieu with peers, While she will sometimes spend time in the vicinity of others, she is mostly alongside people and not directly interacting with them.? That said, she will directly interact with staff. Intermittent Flapping arms; rocking Patient does make eye contact, however she stares the entire time she is engaged. ? She can have a logical conversation Patient has a blunted affect and though she can smile and laugh, she is otherwise expressionless with blunted affect. Patient has in flexibility regarding food when it is not as expected patient can get severely dysregulated Patient has some hypo-reactivity to loud noises and crowds of people. Conversely, She does get jokes, even subtle ones. Symptoms have clearly made life functioning extremely difficult.? It is unclear if patient has had neuropsych testing. She did spend time at [facility]. Secondary dx: PTSD: Patient has a history of trauma from both childhood experiences, as well as trauma that occurred while on inpatient unit at [facility] and [place].? She has also been institutionalized since a young age, away from her mother and father, feeling abandoned. Possibly (likely?) reactive attachment disorder.? She has several regressed behaviors and some child-like interests. Regarding Dissociative Disorder:? Patient has episodes of depersonalization and derealization which the typically arise when triggered and during which time she will feel detached from herself, from her body and feel as if things are unreal and dream like, with out a sense of time; after they conclude and she is again in the present, she can be upset about some behaviors she engaged in during the dissociate period once made aware. Not BPD: Regarding past references to borderline personality disorder, Unhairer and team agree there have been no axis II traits expressed throughout her time in the hospital; none could be cleaned from records No psychotic illness: no psychotic symptoms past or present Med trials (via notes from [facility]) Depakote Zyprexa Liscomb Seroquel Lamictal Ziprasidone Invega Sustenna Abilify, Maintena, Astrada Risperdal BuSpar Lexapro Prozac Effexor Levothyroxine Haldol: Untolerated side effect Thorazine: Anaphylaxis Liscomb: Hives Patient educated on: diagnosis Informed Consent: understands Reason for continued inpatient stay Substantial Risk for: inability to function Time Spent With Patient Time: Total time managing care of this patient today ____ minutes.
[2023-03-21 18:58] LABS: Endomysial IgA Antibody Negative (Negative)
[2023-03-21 21:23] VITALS: BP 111/65; PULSE 78; TEMP 36; O2SAT 95
[2023-03-21] MEDS: clomiPRAMINE HCl 25 MG CAPSULE 50 MG PO (21:41)
[2023-03-21] MEDS: OLANZapine 10 MG TABLET 20 MG PO (21:42)
[2023-03-21] MEDS: ALPRAZolam 0.5 MG TABLET PO (21:42)
[2023-03-21] MEDS: Multivitamin TABLET 1 TAB PO (21:42)
[2023-03-21] MEDS: Sennosides/Docusate Sodium TABLET 2 TAB PO (21:42)
[2023-03-21] MEDS: Melatonin 3 MG TABLET PO (21:42)
[2023-03-21] MEDS: diphenhydrAMINE HCL 25 MG CAPSULE 75 MG PO (21:43)
[2023-03-21] MEDS: traZODone HCL 100 MG TABLET PO (21:43)
[2023-03-22] MEDS: Fluticasone Propionate Nasal 16 GM SPRAY 1 SPRAY NOSTRIL-B (08:40)
[2023-03-22] MEDS: polyethylene glycoL 3350 17 GM POWD.PACK PO ×2 (08:40→20:31)
[2023-03-22] MEDS: Furosemide 20 MG TABLET PO ×2 (08:41→17:06)
[2023-03-22] MEDS: Sennosides/Docusate Sodium TABLET 2 TAB PO ×2 (08:41→20:34)
[2023-03-22] MEDS: OLANZapine 5 MG TABLET PO ×2 (08:41→13:40)
[2023-03-22] MEDS: Omeprazole 20 MG CAPSULE.DR PO (08:41)
[2023-03-22] MEDS: clonazePAM 0.5 MG TABLET 1.5 MG PO ×3 (08:41→19:50)
[2023-03-22] MEDS: Propranolol HCL LA 60 MG CAP.SA.24H 120 MG PO (08:41)
[2023-03-22] MEDS: Loratadine 10 MG TABLET PO (08:42)
[2023-03-22] MEDS: Divalproex Sodium Sprinkles 125 MG CAP.DR.SPR 1000 MG PO (08:42)
[2023-03-22 09:03] VITALS: BP 127/84; PULSE 86; RESP 16; TEMP 36.8; O2SAT 95
--- NOTE | 2023-03-22 09:29 | P.PNPSI_ITS ---
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 Patient is now diagnosed with ASD, PTSD, and intermittent explosive disorder.? From [facility], she carried the diagnosis of Schizoaffective disorder and mention of borderline personality disorder.? Both of these have been ruled out.? Patient has no present psychotic symptoms, denies any history of AVH or delusional thinking, and has no reported history anywhere that can be found of any psychotic symptoms (history includes underwriter having gone through numerous pages of notes from [facility] and other institutions).? She is linear, logical, articulate, insightful and organized in her thinking; she is organized in her behaviors.? Patient can have intrusive thoughts but only when triggered and this does not seem to be OCD.? She can have some rigid thinking in line with ASD.? Many of her dysregulated moments come from her PTSD being exacerbated.? Patient has well tolerated decrease of Zyprexa, decrease of Depakote and discontinuation of perphenazine. Primary dx: ASD. Patient's father and grandmother maintain that she met her milestones in childhood. 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 During childhood she attended [facility] in [place], treatment center typically for people with autism; in [place] when at [facility], she carried a dx of ASD.? As observed on the unit, Patient frequently rocks back and forth, when standing or sitting, while talking to others or calming herself down.? Patient does not have a sense of a person's personal space and will get much to close to a person when talking; she is redirectable and apologizes but she is unaware she is doing it and does not get verbal cues when conversation participant is backing away or trying to end a conversation; though redirectable, she will again get too close, again unaware.? In the milieu with peers, While she will sometimes spend time in the vicinity of others, she is mostly alongside people and not directly interacting with them.? That said, she will directly interact with staff. Intermittent Flapping arms; rocking Patient does make eye contact, however she stares the entire time she is engaged. ? She can have a logical conversation Patient has a blunted affect and though she can smile and laugh, she is otherwise expressionless with blunted affect. Patient has in flexibility regarding food when it is not as expected patient can get severely dysregulated Patient has some hypo-reactivity to loud noises and crowds of people. Conversely, She does get jokes, even subtle ones. Symptoms have clearly made life functioning extremely difficult.? It is unclear if patient has had neuropsych testing. She did spend time at [facility]. Secondary dx: PTSD: Patient has a history of trauma from both childhood experiences, as well as trauma that occurred while on inpatient unit at [facility] and [place].? She has also been institutionalized since a young age, away from her mother and father, feeling abandoned. Possibly (likely?) reactive attachment disorder.? She has several regressed behaviors and some child-like interests. Regarding Dissociative Disorder:? Patient has episodes of depersonalization and derealization which the typically arise when triggered and during which time she will feel detached from herself, from her body and feel as if things are unreal and dream like, with out a sense of time; after they conclude and she is again in the present, she can be upset about some behaviors she engaged in during the dissociate period once made aware. Not BPD: Regarding past references to borderline personality disorder, Clinical Cytogenetics Director and team agree there have been no axis II traits expressed throughout her time in the hospital; none could be cleaned from records No psychotic illness: no psychotic symptoms past or present Med trials (via notes from [facility]) Depakote Zyprexa Udall Seroquel Lamictal Ziprasidone Invega Sustenna Abilify, Maintena, Astrada Risperdal BuSpar Lexapro Prozac Effexor Levothyroxine Haldol: Untolerated side effect Thorazine: Anaphylaxis Udall: Hives Patient educated on: diagnosis, medication risk/benefits and therapeutic strategies Informed Consent: understands Reason for continued inpatient stay Substantial Risk for: inability to function Time Spent With Patient Time: Total time managing care of this patient today ____ minutes.
[2023-03-22] MEDS: Chlorhexidine Gluc Oral Rinse 15 ML MOUTHWASH BUCCAL (09:35)
[2023-03-22 12:46] LABS: Ammonia 66 umol/L (13-55)
[2023-03-22 12:50] LABS: Valproate 98.4 mcg/mL (50.0-100.0)
[2023-03-22 12:51] LABS: Estimated Average Glucose 100 mg/dL; Hemoglobin A1c % 5.1 %
[2023-03-22 12:55] LABS: Alanine Aminotransferase 12 U/L (0-31); Albumin Level 3.6 g/dL (3.5-5.0); Alkaline Phosphatase 42 U/L (39-117); Anion Gap 11 (12-20); Aspartate Amino Transferase 18 U/L (5-31); Bilirubin Total 0.3 mg/dL (0.0-1.0); Blood Urea Nitrogen 18 mg/dL (9-16); Calcium 9.1 mg/dL (8.4-10.2); Carbon Dioxide 24 mmol/L (22-29); Chloride 109 mmol/L (96-108); Cholesterol 168 mg/dL; Creatinine Clr Calc Pharmacy 173.7; Estimated Glomerular Filt Rate > 60; Glucose Random 94 mg/dL (60-115); HDL Cholesterol 32 mg/dL; LDL Cholesterol Calculated 103 mg/dl; Potassium 4.4 mmol/L (3.3-5.1); Sodium 140 mmol/L (135-145); Total Protein 6.5 g/dL (6.5-8.0); Triglycerides 165 mg/dL
[2023-03-22 13:48] LABS: Reflex LDLD? No
[2023-03-22 17:05] VITALS: BP 100/55; PULSE 89; TEMP 36.8
[2023-03-22] MEDS: QUEtiapine Fumarate 50 MG TABLET 150 MG PO (17:06)
[2023-03-22] MEDS: Ziprasidone 20 MG CAPSULE PO (19:58)
[2023-03-22] MEDS: clomiPRAMINE HCl 25 MG CAPSULE 75 MG PO (20:31)
[2023-03-22] MEDS: diphenhydrAMINE HCL 25 MG CAPSULE 75 MG PO (20:31)
[2023-03-22] MEDS: ALPRAZolam 0.5 MG TABLET PO (20:32)
[2023-03-22] MEDS: Melatonin 3 MG TABLET PO (20:32)
[2023-03-22] MEDS: Divalproex Sodium Sprinkles 125 MG CAP.DR.SPR 750 MG PO (20:33)
[2023-03-22] MEDS: OLANZapine 10 MG TABLET 20 MG PO (20:34)
[2023-03-22] MEDS: traZODone HCL 100 MG TABLET PO (20:34)
[2023-03-22] MEDS: Multivitamin TABLET 1 TAB PO (20:34)
--- NOTE | 2023-03-22 22:05 | PC.NURSE ---
Patient was with a 1:1, and her sitter asked if someone could get her some towels, wash cloths, and undies because she pooped herself, patricia wanted someone to wipe her and change her. I went down and got her towels, wash cloths, and undies and proceeded to let her know and I stated to her Hi Patricia Chan, I talked to your nurse (Hayden) and we both agreed that you are capable of wiping your own bottom and changing Patricia then said When I am done in here I will kick you ass you dumb bitch . I went told the nurses who were Martine (charge), Latrell and Hayden gomez's nurse for the evening. I then went and told ancillary staff member Hari about what Budvibha told me. I went to call security and asked them if they could do a walk through. I then went into the back in the break room so I was not in sight of patients view and stayed behind in the break room. Patient Patricia said to staff member Hari, I want to get to her . Patient came to nurses station gate and tried coming in the back. Patient was redirected by staff member Hari to leave the nurses station. pt then walked down the paiz and started tearing down all the exit signs. Then sat in the middle of the hallway and stated At least I didn't hit any staff members . witnesses: Hayden Farley Luke, Grady.
[2023-03-23] MEDS: Divalproex Sodium Sprinkles 125 MG CAP.DR.SPR 750 MG PO ×2 (08:48→20:19)
[2023-03-23 08:50] VITALS: BP 105/69; PULSE 77; RESP 18; TEMP 36.3; O2SAT 98
[2023-03-23] MEDS: OLANZapine 5 MG TABLET PO ×2 (08:52→13:13)
[2023-03-23] MEDS: Furosemide 20 MG TABLET PO ×2 (08:52→16:47)
[2023-03-23] MEDS: Propranolol HCL LA 60 MG CAP.SA.24H 120 MG PO (08:52)
[2023-03-23] MEDS: clonazePAM 0.5 MG TABLET 1.5 MG PO ×3 (08:53→20:20)
[2023-03-23] MEDS: Omeprazole 20 MG CAPSULE.DR PO (08:53)
[2023-03-23] MEDS: Sennosides/Docusate Sodium TABLET 2 TAB PO ×2 (08:54→20:20)
[2023-03-23] MEDS: polyethylene glycoL 3350 17 GM POWD.PACK PO ×2 (08:54→20:18)
[2023-03-23] MEDS: Loratadine 10 MG TABLET PO (08:54)
[2023-03-23] MEDS: Fluticasone Propionate Nasal 16 GM SPRAY 1 SPRAY NOSTRIL-B (09:23)
--- NOTE | 2023-03-23 09:57 | PC.NURSE ---
Pt refused metamucil and MOM due to pooping myself twice.
--- NOTE | 2023-03-23 13:34 | PC.NURSE ---
Pt approached TW requesting IM Geodon for increased agitation. Shortly after, pt began punching the zamora. MD verbally ordered IM Geodon.
[2023-03-23] MEDS: Ziprasidone Mesylate 20 MG VIAL IM (13:43)
--- NOTE | 2023-03-23 16:07 | P.PNPSI_ITS ---
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 mg b.i.d. (down from a 1000 mgbid); increased clomipramine to 75 mg / pt had severe agitation with homicidal ideation and destruction of property last night; today encoureged patient to ask for PRN medications if needed which she did with good effect. Continue treatment plan Chronic conditions: 2. CHARLES positive Outpatient appointment made with Rheumatology February 20 -daytime fatigue; b/l peripheral edema; mild dyspnea on exertion Discussed with Dr. Hamilton who recommends and following labs ordered: -Urine protein creatinine ratio -Rheumatoid factor -CCP antibody 3. Bilateral peripheral edema (lower/upper extrem):? Medication side effect (Zyprexa/Depakote)?? vs organic origin some reduction w/ lowering of medications Zyprexa and depakote r/u autoimune 4. Complaint of chronic struggles with inspiration: lungs CTA; CXR unremarkable Pulmonary function test: results reviewed, discussed with Dr. Melchor -elevated CHARLES and abnromal PFTs with a mild restriction with a mild diffusion impairment. -could be explained by her elevated BMI. -at this time dr. Melchor reports given lab work, at this time it does not look like she has lupus nor sjogrens nor scleroderma. Her cxr was good. needs a sleep study as an out pt (daytime drowsiness bringing up the possibility of obstructive sleep apnea) does not need an inpt ct scan but should f/up with outpt pulmonary and rheumatology. -in further discussion, Dr. Melchor agrees that CHARLES needs further evaluation, 5.hx of Amenorrhea: Patient did get her menses on 01/11 Patient did have menses a few years ago while on control; has not had it since control discontinued about 2 years ago Labs: mostly WNL; will f/u with PCP/internist PSYCHIATRIC IMPRESSION/DIAGNOSIS:. Impression: Patient is a fun, intelligent, cooperative and friendly person. When she gets triggered by something she can decompensate severely, dissociate and become physically aggressive.? Patient is now diagnosed with ASD, PTSD, and interm ittent explosive disorder.? From [facility], she carried the diagnosis of Schizoaffective disorder and mention of borderline personality disorder.? Both of these have been ruled out.? 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 She is linear, logical, articulate, insightful and organized in her thinking; she is organized in her behaviors.? Patient can have intrusive thoughts but only when triggered and this does not seem to be OCD.? She can have some rigid thinking in line with ASD.? Many of her dysregulated moments come from her PTSD being exacerbated.? Patient has well tolerated decrease of Zyprexa, decrease of Depakote and discontinuation of perphenazine. Primary dx: ASD. Patient's father and grandmother maintain that she met her milestones in childhood. 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 During childhood she [place] [facility] [place] center typically for people with autism; in [place] when at [facility], she carried a dx of ASD.? As observed on the unit, Patient frequently rocks back and forth, when standing or sitting, while talking to others or calming herself down.? Patient does not have a sense of a person's personal space and will get much to close to a person when talking; she is redirectable and apologizes but she is unaware she is doing it and does not get verbal cues when conversation participant is backing away or trying to end a conversation; though redirectable, she will again get too close, again unaware.? In the milieu with peers, While she will sometimes spend time in the vicinity of others, she is mostly alongside people and not directly inte racting with them.? That said, she will directly interact with staff. Intermittent Flapping arms; rocking Patient does make eye contact, however she stares the entire time she is engaged. ? She can have a logical conversation Patient has a blunted affect and though she can smile and laugh, she is ot herwise expressionless with blunted affect. Patient has in flexibility regarding food when it is not as expected patient can get severely dysregulated Patient has some hypo-reactivity to loud noises and crowds of people. Conversely, She does get jokes, even subtle ones. Symptoms have clearly made life functioning extremely difficult.? It is unclear if patient has had neuropsych testing. She did spend time at [facility]. Secondary dx: PTSD: Patient has a history of trauma from both childhood experiences, as well as trauma that occurred while on inpatient unit at [facility] and [place].? She has also been institutionalized since a young age, away from her mother and father, feeling abandoned. Possibly (likely?) reactive attachment disorder.? She has several regressed behaviors and some child-like interests. Regarding Dissociative Disorder:? Patient has episodes of depersonalization and derealization which the typically arise when triggered and during which time she will feel detached from herself, from her body and feel as if things are unreal and dream like, with out a sense of time; after they conclude and she is again in the present, she can be upset about some behaviors she engaged in during the dissociate period once made aware. Not BPD: Regarding past references to borderline personality disorder, Trauma Doctor and team agree there have been no axis II traits expressed throughout her time in the hospital; none could be cleaned from records No psychotic illness: no psychotic symptoms past or present Med trials (via notes from [facility]) Depakote Zyprexa Skelp Seroquel Lamictal Ziprasidone Invega Sustenna Abilify, Maintena, Astrada Risperdal BuSpar Lexapro Prozac Effexor Levothyroxine Haldol: Untolerated side effect Thorazine: Anaphylaxis Skelp: Hives Reason for continued inpatient stay Substantial Risk for: harm to self, harm to others, inability to function and rapid decompensation Time Spent With Patient Time: Total time managing care of this patient today ____ minutes.
[2023-03-23] MEDS: Ziprasidone 20 MG CAPSULE PO (16:47)
[2023-03-23] MEDS: ALPRAZolam 0.5 MG TABLET PO (16:48)
[2023-03-23] MEDS: QUEtiapine Fumarate 50 MG TABLET 150 MG PO ×2 (16:48→17:31)
[2023-03-23] MEDS: Chlorhexidine Gluc Oral Rinse 15 ML MOUTHWASH BUCCAL (20:18)
[2023-03-23] MEDS: diphenhydrAMINE HCL 25 MG CAPSULE 75 MG PO (20:19)
[2023-03-23] MEDS: OLANZapine 10 MG TABLET 20 MG PO (20:19)
[2023-03-23] MEDS: traZODone HCL 100 MG TABLET PO (20:19)
[2023-03-23] MEDS: Melatonin 3 MG TABLET PO (20:20)
[2023-03-23] MEDS: Multivitamin TABLET 1 TAB PO (20:20)
[2023-03-23] MEDS: clomiPRAMINE HCl 25 MG CAPSULE 75 MG PO (20:20)
[2023-03-23 22:00] VITALS: BP 122/68; PULSE 85; RESP 16; TEMP 36.6; O2SAT 97
[2023-03-24] MEDS: ALPRAZolam 0.5 MG TABLET PO (06:50)
[2023-03-24] MEDS: Omeprazole 20 MG CAPSULE.DR PO (06:50)
[2023-03-24 09:10] VITALS: BP 125/83; PULSE 76; RESP 18; TEMP 36.2; O2SAT 95
[2023-03-24] MEDS: Divalproex Sodium Sprinkles 125 MG CAP.DR.SPR 750 MG PO ×2 (09:17→21:08)
[2023-03-24] MEDS: Propranolol HCL LA 60 MG CAP.SA.24H 120 MG PO (09:21)
[2023-03-24] MEDS: OLANZapine 5 MG TABLET PO ×2 (09:21→13:18)
[2023-03-24] MEDS: clonazePAM 0.5 MG TABLET 1.5 MG PO ×3 (09:21→18:00)
[2023-03-24] MEDS: Furosemide 20 MG TABLET PO ×2 (09:22→17:54)
[2023-03-24] MEDS: Loratadine 10 MG TABLET PO (09:22)
[2023-03-24] MEDS: Sennosides/Docusate Sodium TABLET 2 TAB PO ×2 (09:22→21:08)
[2023-03-24] MEDS: Fluticasone Propionate Nasal 16 GM SPRAY 1 SPRAY NOSTRIL-B (09:23)
[2023-03-24] MEDS: Chlorhexidine Gluc Oral Rinse 15 ML MOUTHWASH BUCCAL ×2 (10:29→21:07)
--- NOTE | 2023-03-24 11:29 | P.PNPSI_ITS ---
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 Outpatient appointment made with Rheumatology February 20 -daytime fatigue; b/l peripheral edema; mild dyspnea on exertion Discussed with Dr. Hamilton who recommends and following labs ordered: -Urine protein creatinine ratio -Rheumatoid factor -CCP antibody 3. Bilateral peripheral edema (lower/upper extrem):? Medication side effect (Zyprexa/Depakote)?? vs organic origin some reduction w/ lowering of medications Zyprexa and depakote r/u autoimune 4. Complaint of chronic struggles with inspiration: lungs CTA; CXR unremarkable Pulmonary function test: results reviewed, discussed with Dr. Melchor -elevated CHARLES and abnromal PFTs with a mild restriction with a mild diffusion impairment. -could be explained by her elevated BMI. -at this time dr. Melchor reports given lab work, at this time it does not look like she has lupus nor sjogrens nor scleroderma. Her cxr was good. needs a sleep study as an out pt (daytime drowsiness bringing up the possibility of obstructive sleep apnea) does not need an inpt ct scan but should f/up with outpt pulmonary and rheumatology. -in further discussion, Dr. 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 Impression: Patient is a fun, intelligent, cooperative and friendly person. When she gets triggered by something she can decompensate severely, dissociate and become physically aggressive.? Patient is now diagnosed with ASD, PTSD, and intermittent explosive disorder.? From [facility], she carried the diagnosis of Schizoaffective disorder and mention of borderline personality disorder.? Both of these have been ruled out.? 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 She is linear, logical, articulate, insightful and organized in her thinking; she is organized in her behaviors.? Patient can have intrusive thoughts but only when triggered and this does not seem to be OCD.? She can have some rigid thinking in line with ASD.? Many of her dysregulated moments come from her PTSD being exacerbated.? Patient has well tolerated decre ase of Zyprexa, decrease of Depakote and discontinuation of perphenazine. Primary dx: ASD. Patient's father and grandmother maintain that she met her milestones in childhood. 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 During childhood she attended [facility] in [place], treatment center typically for people with autism; in [place] when at [facility], she carried a dx of ASD.? As observed on the unit, Patient frequently rocks back and forth, when standing or sitting, while talking to others or calming herself down.? Patient does not have a sense of a person's personal space and will get much to close to a person when talking; she is redirectable and apologizes but she is unaware she is doing it and does not get verbal cues when conversation participant is backing away or trying to end a conversation; though redirectable, she will again get too close, again unaware.? In the milieu with peers, While she will sometimes spend time in the vicinity of others, she is mostly alongside people and not directly interacting with them.? That said, she will directly interact with staff. Intermittent Flapping arms; rocking Patient does make eye contact, however she stares the entire time she is engaged. ? She can have a logical conversation Patient has a blunted affect and though she can smile and laugh, she is otherwise expressionless with blunted affect. Patient has in flexibility regarding food when it is not as expected patient can get severely dysregulated Patient has some hypo-reactivity to loud noises and crowds of people. Conversely, She does get jokes, even subtle ones. Symptoms have clearly made life functioning extremely difficult.? It is unclear if patient has had neuropsych testing. She did spend time at [facility]. Secondary dx: PTSD: Patient has a history of trauma from both childhood ex periences, as well as trauma that occurred while on inpatient unit at [facility] and [place].? She has also been institutionalized since a young age, away from her mother and father, feeling abandoned. Possibly (likely?) reactive attachment disorder.? She has several regressed behaviors and some child-like interests. Regarding Dissociative Disorder:? Patient has episodes of depersonalization and derealization which the typically arise when triggered and during which time she will feel detached from herself, from her body and feel as if things are unreal and dream like, with out a sense of time; after they conclude and she is again in the present, she can be upset about some behaviors she engaged in during the dissociate period once made aware. Not BPD: Regarding past references to borderline personality disorder, Manufacturing Process Technician and team agree there have been no axis II traits expressed throughout her time in the hospital; none could be cleaned from records No psychotic illness: no psychotic symptoms past or present Med trials (via notes from [facility]) Depakote Zyprexa [place] Seroquel Lamictal Ziprasidone Invega Sustenna Abilify, Maintena, Astrada Risperdal BuSpar Lexapro Prozac Effexor Levothyroxine Haldol: Untolerated side effect Thorazine: Anaphylaxis [place]: Hives Reason for continued inpatient stay Substantial Risk for: harm to self, harm to others, inability to function and rapid decompensation Time Spent With Patient Time: Total time managing care of this patient today ____ minutes.
[2023-03-24] MEDS: QUEtiapine Fumarate 50 MG TABLET 150 MG PO (17:54)
[2023-03-24 20:07] VITALS: BP 118/67; PULSE 86; RESP 18; TEMP 36; O2SAT 97
[2023-03-24] MEDS: Multivitamin TABLET 1 TAB PO (21:07)
[2023-03-24] MEDS: diphenhydrAMINE HCL 25 MG CAPSULE 75 MG PO (21:09)
[2023-03-24] MEDS: OLANZapine 10 MG TABLET 20 MG PO (21:09)
[2023-03-24] MEDS: clomiPRAMINE HCl 25 MG CAPSULE 75 MG PO (21:09)
[2023-03-24] MEDS: traZODone HCL 100 MG TABLET PO (21:09)
[2023-03-24] MEDS: Melatonin 3 MG TABLET PO (21:10)
[2023-03-25] MEDS: Omeprazole 20 MG CAPSULE.DR PO (05:57)
[2023-03-25 09:06] VITALS: BP 123/81; PULSE 86; RESP 16; TEMP 36.4; O2SAT 94
[2023-03-25] MEDS: clonazePAM 0.5 MG TABLET 1.5 MG PO ×3 (09:35→21:24)
[2023-03-25] MEDS: Sennosides/Docusate Sodium TABLET 2 TAB PO ×2 (09:35→21:28)
[2023-03-25] MEDS: OLANZapine 5 MG TABLET PO ×2 (09:35→14:28)
[2023-03-25] MEDS: Divalproex Sodium Sprinkles 125 MG CAP.DR.SPR 750 MG PO ×2 (09:35→21:29)
[2023-03-25] MEDS: Propranolol HCL LA 60 MG CAP.SA.24H 120 MG PO (09:35)
[2023-03-25] MEDS: Loratadine 10 MG TABLET PO (09:35)
[2023-03-25] MEDS: Furosemide 20 MG TABLET PO ×2 (09:35→15:38)
[2023-03-25] MEDS: polyethylene glycoL 3350 17 GM POWD.PACK PO ×2 (09:40→21:23)
[2023-03-25] MEDS: Fluticasone Propionate Nasal 16 GM SPRAY 1 SPRAY NOSTRIL-B (09:46)
--- NOTE | 2023-03-25 10:23 | HO.PSYCHPN ---
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 physically aggressive.? Patient is now diagnosed with ASD, PTSD, and intermittent explosive disorder.? From [facility], she carried the diagnosis of Schizoaffective disorder and mention of borderline personality disorder.? Both of these have been ruled out.? 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 She is linear, logical, articulate, insightful and organized in her thinking; she is organized in her behaviors.? Patient can have intrusive thoughts but only when triggered and this does not seem to be OCD.? She can have some rigid thinking in line with ASD.? Many of her dysregulated moments come from her PTSD being exacerbated.? Patient has well tolerated decrease of Zyprexa, decrease of Depakote and discontinuation of perphenazine. Primary dx: ASD. Patient's father and grandmother maintain that she met her milestones in childhood. 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 During childhood she attended [facility] in [place], treatment center typically for people with autism; in [place] when at [facility], she carried a dx of ASD.? As observed on the unit, Patient frequently rocks back and forth, when standing or sitting, while talking to others or calming herself down.? Patient does not have a sense of a person's personal space and will get much to close to a person when talking; she is redirectable and apologizes but she is unaware she is doing it and does not get verbal cues when conversation participant is backing away or trying to end a conversation; though redirectable, she will again get too close, again unaware.? In the milieu with peers, While she will sometimes spend time in the vicinity of others, she is mostly alongside people and not directly interacting with them.? That said, she will directly interact with staff. Intermittent Flapping arms; rocking Patient does make eye contact, however she stares the entire time she is engaged. ? She can have a logical conversation Patient has a blunted affect and though she can smile and laugh, she is otherwise expressionless with blunted affect. Patient has in flexibility regarding food when it is not as expected patient can get severely dysregulated Patient has some hypo-reactivity to loud noises and crowds of people. Conversely, She does get jokes, even subtle ones. Symptoms have clearly made life functioning extremely difficult.? It is unclear if patient has had neuropsych testing. She did spend time at [facility]. Secondary dx: PTSD: Patient has a history of trauma from both childhood experiences, as well as trauma that occurred while on inpatient unit at [facility] and [place].? She has also been institutionalized since a young age, away from her mother and father, feeling abandoned. Possibly (likely?) reactive attachment disorder.? She has several regressed behaviors and some child-like interests. Regarding Dissociative Disorder:? Patient has episodes of depersonalization and derealization which the typically arise when triggered and during which time she will feel detached from herself, from her body and feel as if things are unreal and dream like, with out a sense of time; after they conclude and she is again in the present, she can be upset about some behaviors she engaged in during the dissociate period once made aware. Not BPD: Regarding past references to borderline personality disorder, Tablet Technician and team agree there have been no axis II traits expressed throughout her time in the hospital; none could be cleaned from records No psychotic illness: no psychotic symptoms past or present Med trials (via notes from [facility]) Depakote Zyprexa [place] Seroquel Lamictal Ziprasidone Invega Sustenna Abilify, Maintena, Astrada Risperdal BuSpar Lexapro Prozac Effexor Levothyroxine Haldol: Untolerated side effect Thorazine: Anaphylaxis [place]: Hives Patient educated on: diagnosis Informed Consent: understands Reason for continued inpatient stay Substantial Risk for: inability to function Time Spent With Patient Time: Total time managing care of this patient today ____ minutes.
[2023-03-25] MEDS: ALPRAZolam 0.5 MG TABLET PO (15:38)
[2023-03-25 15:40] VITALS: BP 122/57; PULSE 82; TEMP 36.6; O2SAT 95
[2023-03-25] MEDS: QUEtiapine Fumarate 50 MG TABLET 150 MG PO (18:02)
[2023-03-25] MEDS: Melatonin 3 MG TABLET PO (21:24)
[2023-03-25] MEDS: Multivitamin TABLET 1 TAB PO (21:24)
[2023-03-25] MEDS: clomiPRAMINE HCl 25 MG CAPSULE 75 MG PO (21:26)
[2023-03-25] MEDS: OLANZapine 10 MG TABLET 20 MG PO (21:28)
[2023-03-25] MEDS: diphenhydrAMINE HCL 25 MG CAPSULE 75 MG PO (21:28)
[2023-03-25] MEDS: traZODone HCL 100 MG TABLET PO (21:29)
[2023-03-25 22:00] VITALS: BP 128/76; PULSE 81; TEMP 36.6; O2SAT 95
[2023-03-25] MEDS: Chlorhexidine Gluc Oral Rinse 15 ML MOUTHWASH BUCCAL (22:03)
[2023-03-26 08:45] VITALS: BP 116/68; PULSE 76; RESP 16; TEMP 36.8; O2SAT 95
[2023-03-26] MEDS: polyethylene glycoL 3350 17 GM POWD.PACK PO ×2 (08:46→22:55)
[2023-03-26] MEDS: Divalproex Sodium Sprinkles 125 MG CAP.DR.SPR 750 MG PO ×2 (08:46→22:49)
[2023-03-26] MEDS: Omeprazole 20 MG CAPSULE.DR PO (08:47)
[2023-03-26] MEDS: Fluticasone Propionate Nasal 16 GM SPRAY 1 SPRAY NOSTRIL-B (08:47)
[2023-03-26] MEDS: clonazePAM 0.5 MG TABLET 1.5 MG PO ×3 (08:47→20:08)
[2023-03-26] MEDS: Loratadine 10 MG TABLET PO (08:47)
[2023-03-26] MEDS: Sennosides/Docusate Sodium TABLET 2 TAB PO ×2 (08:47→22:46)
[2023-03-26] MEDS: Furosemide 20 MG TABLET PO ×2 (08:47→15:59)
[2023-03-26] MEDS: OLANZapine 5 MG TABLET PO ×2 (08:47→14:03)
[2023-03-26] MEDS: Propranolol HCL LA 60 MG CAP.SA.24H 120 MG PO (08:47)
[2023-03-26 11:54] LABS: Thyroid Peroxidase Antibodies 1 IU/mL (<9)
[2023-03-26] MEDS: Ibuprofen 600 MG TABLET PO (14:02)
[2023-03-26] MEDS: ALPRAZolam 0.5 MG TABLET PO (15:59)
[2023-03-26] MEDS: Ziprasidone 20 MG CAPSULE PO (15:59)
--- NOTE | 2023-03-26 17:06 | HO.PSYCHPN ---
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 She is linear, logical, articulate, insightful and organized in her thinking; she is organized in her behaviors.? Patient can have intrusive thoughts but only when triggered and this does not seem to be OCD.? She can have some rigid thinking in line with ASD.? Many of her dysregulated moments come from her PTSD being exacerbated.? Patient has well tolerated decrease of Zyprexa, decrease of Depakote and discontinuation of perphenazine. Primary dx: ASD. Patient's father and grandmother maintain that she met her milestones in childhood. 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 During [place] [facility] [place] typically for people with autism; in [place] when at [facility], she carried a dx of ASD.? As observed on the unit, Patient frequently rocks back and forth, when standing or sitting, while talking to others or calming herself down.? Patient does not have a sense of a person's personal space and will get much to close to a person when talking; she is redirectable and apologizes but she is unaware she is doing it and does not get verbal cues when conversation participant is backing away or trying to end a conversation; though redirectable, she will again get too close, again unaware.? In the milieu with peers, While she will sometimes spend time in the vicinity of others, she is mostly alongside people and not directly interacting with them.? That said, she will directly interact with staff. Intermittent Flapping arms; rocking Patient does make eye contact, however she stares the entire time she is engaged. ? She can have a logical conversation Patient has a blunted affect and though she can smile and laugh, she is otherwise expressionless with blunted affect. Patient has in flexibility regarding food when it is not as expected patient can get severely dysregulated Patient has some hypo-reactivity to loud noises and crowds of people. Conversely, She does get jokes, even subtle ones. Symptoms have clearly made life functioning extremely difficult.? It is unclear if patient has had neuropsych testing. She did spend time at [facility]. Secondary dx: PTSD: Patient has a history of trauma from both childhood experiences, as well as trauma that occurred while on inpatient unit at [facility] and [place].? She has also been institutionalized since a young age, away from her mother and father, feeling abandoned. Possibly (likely?) reactive attachment disorder.? She has several regressed behaviors and some child-like interests. Regarding Dissociative Disorder:? Patient has episodes of depersonalization and derealization which the typically arise when triggered and during which time she will feel detached from herself, from her body and feel as if things are unreal and dream like, with out a sense of time; after they conclude and she is again in the present, she can be upset about some behaviors she engaged in during the dissociate period once made aware. 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 expressed throughout her time in the hospital; none could be cleaned from records No psychotic illness: no psychotic symptoms past or present Med trials (via notes from [facility]) Depakote Zyprexa Lutcher Seroquel Lamictal Ziprasidone Invega Sustenna Abilify, Maintena, Astrada Risperdal BuSpar Lexapro Prozac Effexor Levothyroxine Haldol: Untolerated side effect Thorazine: Anaphylaxis Lutcher: Hives Reason for continued inpatient stay Substantial Risk for: harm to self, harm to others and rapid decompensation Time Spent With Patient Time: Total time managing care of this patient today ____ minutes.
[2023-03-26] MEDS: QUEtiapine Fumarate 50 MG TABLET 150 MG PO (18:40)
[2023-03-26] MEDS: Acetaminophen 325 MG TABLET 650 MG PO (18:41)
[2023-03-26 21:17] LABS: Appearance Urine Clear; Color Urine Yellow; Glucose Urine UA Negative (Negative); Leukocyte Esterase Urine Small (1+) (Negative); Nitrite Urine Negative (Negative); UMIC TRIGGER UACC YES; Urine Blood Large (3+) (Negative); Urine Ketones Negative (Negative); Urine Protein Negative (Neg-Trace)
[2023-03-26 21:19] LABS: Bacteria Urine None Seen (None Seen); Hyaline Casts Urine 0-2 /LPF (0-2); RBC Urine >20 /HPF (0-2); UACC Culture Trigger YES
[2023-03-26 22:00] VITALS: BP 118/64; PULSE 84; TEMP 36.2; O2SAT 95
[2023-03-26] MEDS: OLANZapine 10 MG TABLET 20 MG PO (22:48)
[2023-03-26] MEDS: clomiPRAMINE HCl 25 MG CAPSULE 75 MG PO (22:48)
[2023-03-26] MEDS: Melatonin 3 MG TABLET PO (22:51)
[2023-03-26] MEDS: diphenhydrAMINE HCL 25 MG CAPSULE 75 MG PO (22:51)
[2023-03-26] MEDS: traZODone HCL 100 MG TABLET PO (22:53)
[2023-03-26] MEDS: Multivitamin TABLET 1 TAB PO (22:54)
[2023-03-27 10:00] VITALS: BP 129/60; PULSE 80; RESP 16
[2023-03-27] MEDS: Omeprazole 20 MG CAPSULE.DR PO (10:47)
[2023-03-27] MEDS: Divalproex Sodium Sprinkles 125 MG CAP.DR.SPR 750 MG PO ×2 (10:47→20:54)
[2023-03-27] MEDS: Furosemide 20 MG TABLET PO ×2 (10:47→18:10)
[2023-03-27] MEDS: clonazePAM 0.5 MG TABLET 1.5 MG PO ×3 (10:48→18:11)
[2023-03-27] MEDS: Sennosides/Docusate Sodium TABLET 2 TAB PO ×2 (10:48→20:55)
[2023-03-27] MEDS: OLANZapine 5 MG TABLET PO ×2 (10:48→13:38)
[2023-03-27] MEDS: Loratadine 10 MG TABLET PO (10:48)
[2023-03-27] MEDS: polyethylene glycoL 3350 17 GM POWD.PACK PO ×2 (10:49→21:08)
[2023-03-27] MEDS: Chlorhexidine Gluc Oral Rinse 15 ML MOUTHWASH BUCCAL ×2 (10:54→20:53)
[2023-03-27] MEDS: Propranolol HCL LA 60 MG CAP.SA.24H 120 MG PO (11:54)
[2023-03-27] MEDS: Ziprasidone Mesylate 20 MG VIAL IM (14:53)
--- NOTE | 2023-03-27 16:58 | HO.PSYCHPN ---
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 Impression: Patient is a fun, intelligent, cooperative and friendly person. When she gets triggered by something she can decompensate severely, dissociate and become physically aggressive.? Patient is now diagnosed with ASD, PTSD, and intermittent explosive disorder.? From [facility], she carried the diagnosis of Schizoaffective disorder and mention of borderline personality disorder.? Both of these have been ruled out.? 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 She is linear, logical, articulate, insightful and organized in her thinking; she is organized in her behaviors.? Patient can have intrusive thoughts but only when triggered and this does not seem to be OCD.? She can have some rigid thinking in line with ASD.? Many of her dysregulated moments come from her PTSD being exacerbated.? Patient has well tolerated decrease of Zyprexa, decrease of Depakote and discontinuation of perphenazine. Primary dx: ASD. Patient's father and grandmother maintain that she met her milestones in childhood. 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 During childhood she attended [facility] [place] [place], treatment center typically for people with autism; in [place] when at [facility], she carried a dx of ASD.? As observed on the unit, Patient frequently rocks back and forth, when standing or sitting, while talking to others or calming herself down.? Patient does not have a sense of a person's personal space and will get much to close to a person when talking; she is redirectable and apologizes but she is unaware she is doing it and does not get verbal cues when conversation participant is backing away or trying to end a conversation; though redirectable, she will again get too close, again unaware.? In the milieu with peers, While she will sometimes spend time in the vicinity of others, she is mostly alongside people and not directly interacting with them.? That said, she will directly interact with staff. Intermittent Flapping arms; rocking Patient does make eye contact, however she stares the entire time she is engaged. ? She can have a logical conversation Patient has a blunted affect and though she can smile and laugh, she is otherwise expressionless with blunted affect. Patient has in flexibility regarding food when it is not as expected patient can get severely dysregulated Patient has some hypo-reactivity to loud noises and crowds of people. Conversely, She does get jokes, even subtle ones. Symptoms have clearly made life functioning extremely difficult.? It is unclear if patient has had neuropsych testing. She did spend time at [facility]. Secondary dx: PTSD: Patient has a history of trauma from both childhood experiences, as well as trauma that occurred while on inpatient unit at [facility] and [place].? She has also been institutionalized since a young age, away from her mother and father, feeling abandoned. Possibly (likely?) reactive attachment disorder.? She has several regressed behaviors and some child-like interests. Regarding Dissociative Disorder:? Patient has episodes of depersonalization and derealization which the typically arise when triggered and during which time she will feel detached from herself, from her body and feel as if things are unreal and dream like, with out a sense of time; after they conclude and she is again in the present, she can be upset about some behaviors she engaged in during the dissociate period once made aware. 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 Metal Engineer and team agree there have been no axis II traits expressed throughout her time in the hospital; none could be cleaned from records No psychotic illness: no psychotic symptoms past or present Med trials (via notes from [facility]) Depakote Zyprexa [place] Seroquel Lamictal Ziprasidone Invega Sustenna Abilify, Maintena, Astrada Risperdal BuSpar Lexapro Prozac Effexor Levothyroxine Haldol: Untolerated side effect Thorazine: Anaphylaxis [place]: Hives Reason for continued inpatient stay Substantial Risk for: harm to others and inability to function Time Spent With Patient Time: Total time managing care of this patient today ____ minutes.
[2023-03-27] MEDS: QUEtiapine Fumarate 50 MG TABLET 150 MG PO (18:10)
[2023-03-27 18:37] VITALS: BP 124/68; PULSE 90; RESP 20; TEMP 36.8; O2SAT 97
[2023-03-27] MEDS: clomiPRAMINE HCl 25 MG CAPSULE 75 MG PO (20:54)
[2023-03-27] MEDS: diphenhydrAMINE HCL 25 MG CAPSULE 75 MG PO (20:54)
[2023-03-27] MEDS: Melatonin 3 MG TABLET PO (20:55)
[2023-03-27] MEDS: OLANZapine 10 MG TABLET 20 MG PO (20:55)
[2023-03-27] MEDS: Ziprasidone 20 MG CAPSULE PO (20:55)
[2023-03-27] MEDS: Multivitamin TABLET 1 TAB PO (20:55)
[2023-03-27] MEDS: ALPRAZolam 0.5 MG TABLET PO (20:55)
[2023-03-27] MEDS: Ibuprofen 600 MG TABLET PO (21:02)
[2023-03-28] MEDS: Omeprazole 20 MG CAPSULE.DR PO (06:42)
[2023-03-28 10:00] VITALS: BP 109/67; PULSE 91; RESP 18
[2023-03-28] MEDS: Divalproex Sodium Sprinkles 125 MG CAP.DR.SPR 750 MG PO ×2 (10:19→19:28)
[2023-03-28] MEDS: clonazePAM 0.5 MG TABLET 1.5 MG PO ×3 (10:19→18:32)
[2023-03-28] MEDS: Chlorhexidine Gluc Oral Rinse 15 ML MOUTHWASH BUCCAL ×2 (10:19→19:28)
--- NOTE | 2023-03-28 10:19 | HO.PSYCHPN ---
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 disorder.? Both of these have been ruled out.? 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 She is linear, logical, articulate, insightful and organized in her thinking; she is organized in her behaviors.? Patient can have intrusive thoughts but only when triggered and this does not seem to be OCD.? She can have some rigid thinking in line with ASD.? Many of her dysregulated moments come from her PTSD being exacerbated.? Patient has well tolerated decrease of Zyprexa, decrease of Depakote and discontinuation of perphenazine. Primary dx: ASD. Patient's father and grandmother maintain that she met her milestones in childhood. 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 During childhood she attended [facility] in [place], treatment center typically for people with autism; in [place] when at [facility], she carried a dx of ASD.? As observed on the unit, Patient frequently rocks back and forth, when standing or sitting, while talking to others or calming herself down.? Patient does not have a sense of a person's personal space and will get much to close to a person when talking; she is redirectable and apologizes but she is unaware she is doing it and does not get verbal cues when conversation participant is backing away or trying to end a conversation; though redirectable, she will again get too close, again unaware.? In the milieu with peers, While she will sometimes spend time in the vicinity of others, she is mostly alongside people and not directly interacting with them.? That said, she will directly interact with staff. Intermittent Flapping arms; rocking Patient does make eye contact, however she stares the entire time she is engaged. ? She can have a logical conversation Patient has a blunted affect and though she can smile and laugh, she is otherwise expressionless with blunted affect. Patient has in flexibility regarding food when it is not as expected patient can get severely dysregulated Patient has some hypo-reactivity to loud noises and crowds of people. Conversely, She does get jokes, even subtle ones. Symptoms have clearly made life functioning extremely difficult.? It is unclear if patient has had neuropsych testing. She did spend time at [facility]. Secondary dx: PTSD: Patient has a history of trauma from both childhood experiences, as well as trauma that occurred while on inpatient unit at [facility] and [place].? She has also been institutionalized since a young age, away from her mother and father, feeling abandoned. Possibly (likely?) reactive attachment disorder.? She has several regressed behaviors and some child-like interests. Regarding Dissociative Disorder:? Patient has episodes of depersonalization and derealization which the typically arise when triggered and during which time she will feel detached from herself, from her body and feel as if things are unreal and dream like, with out a sense of time; after they conclude and she is again in the present, she can be upset about some behaviors she engaged in during the dissociate period once made aware. Not BPD: Regarding past references to borderline personality disorder, Hop Picker and team agree there have been no axis II traits expressed throughout her time in the hospital; none could be cleaned from records No psychotic illness: no psychotic symptoms past or present Med trials (via notes from [facility]) Depakote Zyprexa [place] Seroquel Lamictal Ziprasidone Invega Sustenna Abilify, Maintena, Astrada Risperdal BuSpar Lexapro Prozac Effexor Levothyroxine Haldol: Untolerated side effect Thorazine: Anaphylaxis [place]: Hives Patient educated on: diagnosis and therapeutic strategies Informed Consent: understands Reason for continued inpatient stay Substantial Risk for: inability to function Time Spent With Patient Time: Total time managing care of this patient today ____ minutes.
[2023-03-28] MEDS: Propranolol HCL LA 60 MG CAP.SA.24H 120 MG PO (10:21)
[2023-03-28] MEDS: OLANZapine 5 MG TABLET PO ×2 (10:21→13:13)
[2023-03-28] MEDS: Sennosides/Docusate Sodium TABLET 2 TAB PO ×2 (10:21→19:33)
[2023-03-28] MEDS: Furosemide 20 MG TABLET PO ×2 (10:21→18:31)
[2023-03-28] MEDS: Loratadine 10 MG TABLET PO (10:22)
[2023-03-28] MEDS: Fluticasone Propionate Nasal 16 GM SPRAY 1 SPRAY NOSTRIL-B (10:30)
[2023-03-28] MEDS: ALPRAZolam 0.5 MG TABLET PO ×2 (14:54→23:46)
[2023-03-28] MEDS: Ziprasidone 20 MG CAPSULE PO (15:00)
[2023-03-28] MEDS: QUEtiapine Fumarate 50 MG TABLET 150 MG PO (18:31)
[2023-03-28 18:59] VITALS: BP 137/65; PULSE 90; RESP 18; TEMP 36.4; O2SAT 93
[2023-03-28] MEDS: polyethylene glycoL 3350 17 GM POWD.PACK PO (19:28)
[2023-03-28] MEDS: clomiPRAMINE HCl 25 MG CAPSULE 75 MG PO (19:29)
[2023-03-28] MEDS: Melatonin 3 MG TABLET PO ×2 (19:33→23:46)
[2023-03-28] MEDS: diphenhydrAMINE HCL 25 MG CAPSULE 75 MG PO (19:33)
[2023-03-28] MEDS: Ondansetron ODT 4 MG TAB.RAPDIS TRANSLINGU (19:46)
[2023-03-29] MEDS: polyethylene glycoL 3350 17 GM POWD.PACK PO ×2 (09:56→21:13)
[2023-03-29] MEDS: Divalproex Sodium Sprinkles 125 MG CAP.DR.SPR 750 MG PO ×2 (09:57→21:10)
[2023-03-29] MEDS: Ibuprofen 600 MG TABLET PO ×2 (09:57→16:03)
[2023-03-29] MEDS: Propranolol HCL LA 60 MG CAP.SA.24H 120 MG PO (09:58)
[2023-03-29] MEDS: clonazePAM 0.5 MG TABLET 1.5 MG PO ×3 (09:58→19:12)
[2023-03-29] MEDS: Loratadine 10 MG TABLET PO (09:58)
[2023-03-29] MEDS: Chlorhexidine Gluc Oral Rinse 15 ML MOUTHWASH BUCCAL ×2 (09:59→21:10)
[2023-03-29] MEDS: Furosemide 20 MG TABLET PO ×2 (09:59→17:36)
[2023-03-29] MEDS: OLANZapine 5 MG TABLET PO ×2 (09:59→14:45)
[2023-03-29 10:00] VITALS: BP 115/62; PULSE 92; RESP 20; O2SAT 92
[2023-03-29] MEDS: Fluticasone Propionate Nasal 16 GM SPRAY 1 SPRAY NOSTRIL-B (10:42)
[2023-03-29] MEDS: Calcium Carbonate 750 MG TAB.CHEW PO (10:44)
--- NOTE | 2023-03-29 17:24 | P.PNPSI_ITS ---
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 She is linear, logical, articulate, insightful and organized in her thinking; she is organized in her behaviors.? Patient can have intrusive thoughts but only when triggered and this does not seem to be OCD.? She can have some rigid thinking in line with ASD.? Many of her dysregulated moments come from her PTSD being exacerbated.? Patient has well tolerated decrease of Zyprexa, decrease of Depakote and discontinuation of perphenazine. Primary dx: ASD. Patient's father and grandmother maintain that she met her milestones in childhood. 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 During childhood she [place] [facility] [place], treatment center typically for people with autism; in [place] when at [facility], she carried a dx of ASD.? As observed on the unit, Patient frequently rocks back and forth, when standing or sitting, while talking to others or calming herself down.? Patient does not have a sense of a person's personal space and will get much to close to a person when talking; she is redirectable and apologizes but she is unaware she is doing it and does not get verbal cues when conversation participant is backing away or trying to end a conversation; though redirectable, she will again get too close, again unaware.? In the milieu with peers, While she will sometimes spend time in the vicinity of others, she is mostly alongside people and not directly interacting with them.? That said, she will directly interact with staff. Intermittent Flapping arms; rocking Patient does make eye contact, however she stares the entire time she is engaged. ? She can have a logical conversation Patient has a blunted affect and though she can smile and laugh, she is otherwise expressionless with blunted affect. Patient has in flexibility regarding food when it is not as expected patient can get severely dysregulated Patient has some hypo-reactivity to loud noises and crowds of people. Conversely, She does get jokes, even subtle ones. Symptoms have clearly made life functioning extremely difficult.? It is unclear if patient has had neuropsych testing. She did spend time at [facility]. Secondary dx: PTSD: Patient has a history of trauma from both childhood experiences, as well as trauma that occurred while on inpatient unit at [facility] and [place].? She has also been institutionalized since a young age, away from her mother and father, feeling abandoned. Possibly (likely?) reactive attachment disorder.? She has several regressed behaviors and some child-like interests. Regarding Dissociative Disorder:? Patient has episodes of depersonalization and derealization which the typically arise when triggered and during which time she will feel detached from herself, from her body and feel as if things are unreal and dream like, with out a sense of time; after they conclude and she is again in the present, she can be upset about some behaviors she engaged in during the dissociate period once made aware. Not BPD: Regarding past references to borderline personality disorder, Tutoring Manager and team agree there have been no axis II traits expressed throughout her time in the hospital; none could be cleaned from records No psychotic illness: no psychotic symptoms past or present Med trials (via notes from [facility]) Depakote Zyprexa Pymatuning Central Seroquel Lamictal Ziprasidone Invega Sustenna Abilify, Maintena, Astrada Risperdal BuSpar Lexapro Prozac Effexor Levothyroxine Haldol: Untolerated side effect Thorazine: Anaphylaxis Pymatuning Central: Hives Patient educated on: diagnosis Informed Consent: understands Reason for continued inpatient stay Substantial Risk for: inability to function Time Spent With Patient Time: Total time managing care of this patient today ____ minutes.
[2023-03-29 17:35] VITALS: BP 130/57; PULSE 82
[2023-03-29] MEDS: QUEtiapine Fumarate 50 MG TABLET 150 MG PO (17:36)
[2023-03-29 21:10] VITALS: BP 108/65; PULSE 95; RESP 16; TEMP 36.3; O2SAT 95
[2023-03-29] MEDS: diphenhydrAMINE HCL 25 MG CAPSULE 75 MG PO (21:11)
[2023-03-29] MEDS: clomiPRAMINE HCl 25 MG CAPSULE 75 MG PO (21:12)
[2023-03-29] MEDS: Sennosides/Docusate Sodium TABLET 2 TAB PO (21:12)
[2023-03-29] MEDS: Melatonin 3 MG TABLET PO (21:13)
[2023-03-30 09:10] VITALS: BP 116/72; PULSE 86; RESP 16; TEMP 36.9; O2SAT 96
[2023-03-30] MEDS: Divalproex Sodium Sprinkles 125 MG CAP.DR.SPR 750 MG PO ×2 (09:45→21:20)
[2023-03-30] MEDS: Propranolol HCL LA 60 MG CAP.SA.24H 120 MG PO (09:45)
[2023-03-30] MEDS: OLANZapine 5 MG TABLET PO ×2 (09:46→14:21)
[2023-03-30] MEDS: Loratadine 10 MG TABLET PO (09:46)
[2023-03-30] MEDS: Furosemide 20 MG TABLET PO ×2 (09:46→17:30)
[2023-03-30] MEDS: Sennosides/Docusate Sodium TABLET 2 TAB PO ×2 (09:46→21:20)
[2023-03-30] MEDS: Omeprazole 20 MG CAPSULE.DR PO (09:46)
[2023-03-30] MEDS: Fluticasone Propionate Nasal 16 GM SPRAY 1 SPRAY NOSTRIL-B (09:53)
[2023-03-30] MEDS: clonazePAM 0.5 MG TABLET 1.5 MG PO ×3 (09:53→20:19)
[2023-03-30] MEDS: Ziprasidone Mesylate 20 MG VIAL IM (09:53)
[2023-03-30] MEDS: Milk of Magnesia 30 ML ORAL.SUSP PO (10:00)
--- NOTE | 2023-03-30 15:14 | HO.PSYCHPN ---
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 while on control; has not had it since control discontinued about 2 years ago Labs: mostly WNL; will f/u with PCP/supervisor [employer] PSYCHIATRIC IMPRESSION/DIAGNOSIS:. Impression: Patient is a fun, intelligent, cooperative and friendly person. When she gets triggered by something she can decompensate severely, dissociate and become physically aggressive.? Patient is now diagnosed with ASD, PTSD, and intermittent explosive disorder.? From [facility], she carried the diagnosis of Schizoaffective disorder and mention of borderline personality disorder.? Both of these have been ruled out.? Patient has no present psychotic symptoms, denies any history of AVH or delusional thinking, and has no reported history anywhere that can be found of any psychotic symptoms (history includes loan underwriter having gone through numerous pages of notes from [facility] and other institutions).? She is linear, logical, articulate, insightful and organized in her thinking; she is organized in her behaviors.? Patient can have intrusive thoughts but only when triggered and this does not seem to be OCD.? She can have some rigid thinking in line with ASD.? Many of her dysregulated moments come from her PTSD being exacerbated.? Patient has well tolerated decrease of Zyprexa, decrease of Depakote and discontinuation of perphenazine. Primary dx: ASD. Patient's father and grandmother maintain that she met her milestones in childhood. 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 During childhood she attended [facility] [place] [place], treatment center typically for people with autism; in [place] when at [facility], she carried a dx of ASD.? As observed on the unit, Patient frequently rocks back and forth, when standing or sitting, while talking to others or calming herself down.? Patient does not have a sense of a person's personal space and will get much to close to a person when talking; she is redirectable and apologizes but she is unaware she is doing it and does not get verbal cues when conversation participant is backing away or trying to end a conversation; though redirectable, she will again get too close, again unaware.? In the milieu with peers, While she will sometimes spend time in the vicinity of others, she is mostly alongside people and not directly interacting with them.? That said, she will directly interact with staff. Intermittent Flapping arms; rocking Patient does make eye contact, however she stares the entire time she is engaged. ? She can have a logical conversation Patient has a blunted affect and though she can smile and laugh, she is otherwise expressionless with blunted affect. Patient has in flexibility regarding food when it is not as expected patient can get severely dysregulated Patient has some hypo-reactivity to loud noises and crowds of people. Conversely, She does get jokes, even subtle ones. Symptoms have clearly made life functioning extremely difficult.? It is unclear if patient has had neuropsych testing. She did spend time at [facility]. Secondary dx: PTSD: Patient has a history of trauma from both childhood experiences, as well as trauma that occurred while on inpatient unit at [facility] and [place].? She has also been institutionalized since a young age, away from her mother and father, feeling abandoned. Possibly (likely?) reactive attachment disorder.? She has several regressed behaviors and some child-like interests. Regarding Dissociative Disorder:? Patient has episodes of depersonalization and derealization which the typically arise when triggered and during which time she will feel detached from herself, from her body and feel as if things are unreal and dream like, with out a sense of time; after they conclude and she is again in the present, she can be upset about some behaviors she engaged in during the dissociate period once made aware. Not BPD: Regarding past references to borderline personality disorder, Household Assistant and team agree there have been no axis II traits expressed throughout her time in the hospital; none could be cleaned from records No psychotic illness: no psychotic symptoms past or present Med trials (via notes from [facility]) Depakote Zyprexa Desloge Seroquel Lamictal Ziprasidone Invega Sustenna Abilify, Maintena, Astrada Risperdal BuSpar Lexapro Prozac Effexor Levothyroxine Haldol: Untolerated side effect Thorazine: Anaphylaxis Desloge: Hives Reason for continued inpatient stay Substantial Risk for: harm to others, inability to function and rapid decompensation Time Spent With Patient Time: Total time managing care of this patient today ____ minutes.
[2023-03-30] MEDS: QUEtiapine Fumarate 50 MG TABLET 150 MG PO (17:27)
[2023-03-30] MEDS: Ziprasidone 20 MG CAPSULE PO (19:07)
[2023-03-30] MEDS: ALPRAZolam 0.5 MG TABLET PO (19:07)
[2023-03-30 21:05] VITALS: BP 117/66; PULSE 95; TEMP 35.9
[2023-03-30] MEDS: diphenhydrAMINE HCL 25 MG CAPSULE 75 MG PO (21:18)
[2023-03-30] MEDS: clomiPRAMINE HCl 25 MG CAPSULE 75 MG PO (21:19)
[2023-03-30] MEDS: polyethylene glycoL 3350 17 GM POWD.PACK PO (21:20)
[2023-03-30] MEDS: Melatonin 3 MG TABLET PO (21:20)
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
[2023-03-30] MEDS: OLANZapine 10 MG VIAL IM (22:50)
[2023-03-30] MEDS: Midazolam HCl/PF 2 MG/2 ML VIAL IM (22:51)
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
[2023-03-31 10:25] VITALS: BP 108/64; PULSE 86; RESP 16; TEMP 36.8; O2SAT 95
[2023-03-31] MEDS: clonazePAM 0.5 MG TABLET 1.5 MG PO ×2 (10:32→21:20)
[2023-03-31] MEDS: Sennosides/Docusate Sodium TABLET 2 TAB PO ×2 (10:32→21:21)
[2023-03-31] MEDS: Propranolol HCL LA 60 MG CAP.SA.24H 120 MG PO (10:33)
[2023-03-31] MEDS: OLANZapine 5 MG TABLET PO (10:33)
[2023-03-31] MEDS: Loratadine 10 MG TABLET PO (10:33)
[2023-03-31] MEDS: Furosemide 20 MG TABLET PO ×2 (10:33→18:06)
[2023-03-31] MEDS: Omeprazole 20 MG CAPSULE.DR PO (10:33)
[2023-03-31] MEDS: Divalproex Sodium Sprinkles 125 MG CAP.DR.SPR 750 MG PO ×2 (10:34→21:19)
[2023-03-31] MEDS: Ziprasidone 20 MG CAPSULE PO (10:36)
[2023-03-31] MEDS: ALPRAZolam 0.5 MG TABLET PO ×2 (10:36→22:42)
[2023-03-31] MEDS: polyethylene glycoL 3350 17 GM POWD.PACK PO ×2 (10:41→21:19)
[2023-03-31] MEDS: Ibuprofen 600 MG TABLET PO (10:48)
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
--- NOTE | 2023-03-31 13:02 | PC.NURSE ---
Per covering provider (Dr Dela Cruz), continue with current incentive/behavioral plan until an new, updated plan can be determined by TEAM. Pt to remain in Group room B for sleep purposes and may continue to have access to common areas. To be re-evaluated on Saturday w/ providers and SW.
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
[2023-03-31] MEDS: OLANZapine 10 MG VIAL IM (14:07)
[2023-03-31] MEDS: Midazolam HCl/PF 2 MG/2 ML VIAL IM (14:09)
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
[2023-03-31 18:00] VITALS: BP 98/54; PULSE 87; TEMP 36.2
[2023-03-31] MEDS: QUEtiapine Fumarate 50 MG TABLET 150 MG PO (18:06)
[2023-03-31] MEDS: clomiPRAMINE HCl 25 MG CAPSULE 75 MG PO (21:20)
[2023-03-31] MEDS: Melatonin 3 MG TABLET PO ×2 (21:20→22:42)
[2023-03-31] MEDS: diphenhydrAMINE HCL 25 MG CAPSULE 75 MG PO (21:21)
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
[2023-04-01] MEDS: Ziprasidone Mesylate 20 MG VIAL IM (00:03)
--- NOTE | 2023-04-01 08:31 | HO.PSYCHPN ---
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 impairment. -could be explained by her elevated BMI. -at this time dr. Melchor reports given lab work, at this time it does not look like she has lupus nor sjogrens nor scleroderma. Her cxr was good. needs a sleep study as an out pt (daytime drowsiness bringing up the possibility of obstructive sleep apnea) does not need an inpt ct scan but should f/up with outpt pulmonary and rheumatology. -in further discussion, Dr. 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 Impression: Patient is a fun, intelligent, cooperative and friendly person. When she gets triggered by something she can decompensate severely, dissociate and become physically aggressive.? Patient is now diagnosed with ASD, PTSD, and intermittent explosive disorder.? From [facility], she carried the diagnosis of Schizoaffective disorder and mention of borderline personality disorder.? Both of these have been ruled out.? 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 She is linear, logical, articulate, insightful and organized in her thinking; she is organized in her behaviors.? Patient can have intrusive thoughts but only when triggered and this does not seem to be OCD.? She can have some rigid thinking in line with ASD.? Many of her dysregulated moments come from her PTSD being exacerbated.? Patient has well tolerated decrease of Zyprexa, decrease of Depakote and discontinuation of perphenazine. Primary dx: ASD. Patient's father and grandmother maintain that she met her milestones in childhood. 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 During childhood she attended [facility] [place], treatment center typically for people with autism; in [place] when at [facility], she carried a dx of ASD.? As observed on the unit, Patient frequently rocks back and forth, when standing or sitting, while talking to others or calming herself down.? Patient does not have a sense of a person's personal space and will get much to close to a person when talking; she is redirectable and apologizes but she is unaware she is doing it and does not get verbal cues when conversation participant is backing away or trying to end a conversation; though redirectable, she will again get too close, again unaware.? In the milieu with peers, While she will sometimes spend time in the vicinity of others, she is mostly alongside people and not directly interacting with them.? That said, she will directly interact with staff. Intermittent Flapping arms; rocking Patient does make eye contact, however she stares the entire time she is engaged. ? She can have a logical conversation Patient has a blunted affect and though she can smile and laugh, she is otherwise expressionless with blunted affect. Patient has in flexibility regarding food when it is not as expected patient can get severely dysregulated Patient has some hypo-reactivity to loud noises and crowds of people. Conversely, She does get jokes, even subtle ones. Symptoms have clearly made life functioning extremely difficult.? It is unclear if patient has had neuropsych testing. She did spend time at [facility]. Secondary dx: PTSD: Patient has a history of trauma from both childhood experiences, as well as trauma that occurred while on inpatient unit at [facility] and [place].? She has also been institutionalized since a young age, away from her mother and father, feeling abandoned. Possibly (likely?) reactive attachment disorder.? She has several regressed behaviors and some child-like interests. Regarding Dissociative Disorder:? Patient has episodes of depersonalization and derealization which the typically arise when triggered and during which time she will feel detached from herself, from her body and feel as if things are unreal and dream like, with out a sense of time; after they conclude and she is again in the present, she can be upset about some behaviors she engaged in during the dissociate period once made aware. 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 agree there have been no axis II traits expressed throughout her time in the hospital; none could be cleaned from records No psychotic illness: no psychotic symptoms past or present Med trials (via notes from [facility]) Depakote Zyprexa Apison Seroquel Lamictal Ziprasidone Invega Sustenna Abilify, Maintena, Astrada Risperdal BuSpar Lexapro Prozac Effexor Levothyroxine Haldol: Untolerated side effect Thorazine: Anaphylaxis Apison: Hives Patient educated on: diagnosis, medication risk/benefits and therapeutic strategies Informed Consent: understands and further education needed Reason for continued inpatient stay Substantial Risk for: inability to function Time Spent With Patient Time: Total time managing care of this patient today ____ minutes.
[2023-04-01] MEDS: Divalproex Sodium Sprinkles 125 MG CAP.DR.SPR 750 MG PO ×2 (11:12→20:44)
[2023-04-01] MEDS: clonazePAM 0.5 MG TABLET 1.5 MG PO ×3 (11:12→18:27)
[2023-04-01] MEDS: OLANZapine 5 MG TABLET PO ×2 (11:12→14:08)
[2023-04-01] MEDS: polyethylene glycoL 3350 17 GM POWD.PACK PO ×2 (11:13→20:45)
[2023-04-01] MEDS: Milk of Magnesia 30 ML ORAL.SUSP PO (11:13)
[2023-04-01] MEDS: Sennosides/Docusate Sodium TABLET 2 TAB PO ×2 (11:13→20:45)
[2023-04-01] MEDS: Loratadine 10 MG TABLET PO (11:14)
[2023-04-01] MEDS: Propranolol HCL LA 60 MG CAP.SA.24H 120 MG PO (11:26)
[2023-04-01] MEDS: Furosemide 20 MG TABLET PO ×2 (11:27→18:26)
[2023-04-01] MEDS: QUEtiapine Fumarate 50 MG TABLET 150 MG PO (18:26)
[2023-04-01 19:28] VITALS: BP 123/59; PULSE 85; RESP 18; TEMP 36.4; O2SAT 97
[2023-04-01] MEDS: Ibuprofen 600 MG TABLET PO (19:46)
[2023-04-01] MEDS: diphenhydrAMINE HCL 25 MG CAPSULE 75 MG PO (20:43)
[2023-04-01] MEDS: clomiPRAMINE HCl 25 MG CAPSULE 75 MG PO (20:43)
[2023-04-01] MEDS: Melatonin 3 MG TABLET PO (20:44)
[2023-04-01] MEDS: ALPRAZolam 0.5 MG TABLET PO (20:45)
[2023-04-02 08:49] VITALS: BP 106/65; PULSE 82; RESP 16; TEMP 36.3; O2SAT 96
[2023-04-02] MEDS: Fluticasone Propionate Nasal 16 GM SPRAY 1 SPRAY NOSTRIL-B (09:01)
[2023-04-02] MEDS: polyethylene glycoL 3350 17 GM POWD.PACK PO ×2 (09:01→20:47)
[2023-04-02] MEDS: Sennosides/Docusate Sodium TABLET 2 TAB PO ×2 (09:01→20:47)
[2023-04-02] MEDS: OLANZapine 5 MG TABLET PO ×2 (09:01→14:31)
[2023-04-02] MEDS: clonazePAM 0.5 MG TABLET 1.5 MG PO (09:01)
[2023-04-02] MEDS: Propranolol HCL LA 60 MG CAP.SA.24H 120 MG PO (09:01)
[2023-04-02] MEDS: Furosemide 20 MG TABLET PO ×2 (09:02→18:03)
[2023-04-02] MEDS: Loratadine 10 MG TABLET PO (09:02)
[2023-04-02] MEDS: Divalproex Sodium Sprinkles 125 MG CAP.DR.SPR 750 MG PO ×2 (09:02→20:48)
[2023-04-02] MEDS: Ibuprofen 600 MG TABLET PO ×2 (10:02→20:42)
--- NOTE | 2023-04-02 10:19 | P.PNPSI_ITS ---
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 mild restriction with a mild diffusion impairment. -could be explained by her elevated BMI. -at this time dr. Melchor reports given lab work, at this time it does not look like she has lupus nor sjogrens nor scleroderma. Her cxr was good. needs a sleep study as an out pt (daytime drowsiness bringing up the possibility of obstructive sleep apnea) does not need an inpt ct scan but should f/up with outpt pulmonary and rheumatology. -in further discussion, Dr. 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 Impression: Patient is a fun, intelligent, cooperative and friendly person. When she gets triggered by something she can decompensate severely, dissociate and become physically aggressive.? Patient is now diagnosed with ASD, PTSD, and intermitten t explosive disorder.? From [facility], she carried the diagnosis of Schizoaffective disorder and mention of borderline personality disorder.? Both of these have been ruled out.? 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 She is linear, logical, articulate, insightful and organized in her thinking; she is organized in her behaviors.? Patient can have intrusive thoughts but only when triggered and this does not seem to be OCD.? She can have some rigid thinking in line with ASD.? Many of her dysregulated moments come from her PTSD being exacerbated.? Patient has well tolerated decrease of Zyprexa, decrease of Depakote and discontinuation of perphenazine. Primary dx: ASD. Patient's father and grandmother maintain that she met her milestones in childhood. 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 During childhood she attended [facility] [place], treatment center typically for people with autism; in [place] when at [facility], she carried a dx of ASD.? As observed on the unit, Patient frequently rocks back and forth, when standing or sitting, while talking to others or calming herself down.? Patient does not have a sense of a person's personal space and will get much to close to a person when talking; she is redirectable and apologizes but she is unaware she is doing it and does not get verbal cues when conversation participant is backing away or trying to end a conversation; though redirectable, she will again get too close, again unaware.? In the milieu with peers, While she will sometimes spend time in the vicinity of others, she is mostly alongside people and not directly interacting with them.? That said, she will directly interact with staff. Intermittent Flapping arms; rocking Patient does make eye contact, however she stares the entire time she is engaged. ? She can have a logical conversation Patient has a blunted affect and though she can smile and laugh, she is otherwi se expressionless with blunted affect. Patient has in flexibility regarding food when it is not as expected patient can get severely dysregulated Patient has some hypo-reactivity to loud noises and crowds of people. Conversely, She does get jokes, even subtle ones. Symptoms have clearly made life functioning extremely difficult.? It is unclear if patient has had neuropsych testing. She did spend [facility] at [facility]. Secondary dx: PTSD: Patient has a history of trauma from both childhood experiences, as well as trauma that occurred while on inpatient unit at [facility] and [place].? She has also been institutionalized since a young age, away from her mother and father, feeling abandoned. Possibly (likely?) reactive attachment disorder.? She has several regressed behaviors and some child-like interests. Regarding Dissociative Disorder:? Patient has episodes of depersonalization and derealization which the typically arise when triggered and during which time she will feel detached from herself, from her body and feel as if things are unreal and dream like, with out a sense of time; after they conclude and she is again in the present, she can be upset about some behaviors she engaged in during the dissociate period once made aware. Not BPD: Regarding past references to borderline personality disorder, Fiscal Accounting Clerk and team agree there have been no axis II traits expressed throughout her time in the hospital; none could be cleaned from records No psychotic illness: no psychotic symptoms past or present Med trials (via notes from [facility]) Depakote Zyprexa Corcoran Seroquel Lamictal Ziprasidone Invega Sustenna Abilify, Maintena, Astrada Risperdal BuSpar Lexapro Prozac Effexor Levothyroxine Haldol: Untolerated side effect Thorazine: Anaphylaxis Corcoran: Hives Patient educated on: diagnosis, medication risk/benefits and therapeutic strategies Informed Consent: understands Reason for continued inpatient stay Substantial Risk for: harm to self, harm to others and inability to function Time Spent With Patient Time: Total time managing care of this patient today ____ minutes.
[2023-04-02] MEDS: Ziprasidone Mesylate 20 MG VIAL IM (12:06)
[2023-04-02] MEDS: Midazolam HCl/PF 2 MG/2 ML VIAL 8 MG IM (13:20)
[2023-04-02] MEDS: clonazePAM 1 MG TABLET 2 MG PO ×2 (14:30→18:04)
[2023-04-02 16:45] VITALS: BP 126/72; PULSE 86; RESP 18; TEMP 36.4; O2SAT 96
[2023-04-02] MEDS: QUEtiapine Fumarate 50 MG TABLET 150 MG PO (18:04)
[2023-04-02] MEDS: clomiPRAMINE HCl 25 MG CAPSULE 75 MG PO (20:43)
[2023-04-02] MEDS: diphenhydrAMINE HCL 25 MG CAPSULE 75 MG PO (20:46)
[2023-04-02] MEDS: Melatonin 3 MG TABLET PO (20:47)
[2023-04-02] MEDS: Calcium Carbonate 750 MG TAB.CHEW PO (21:10)
[2023-04-03] MEDS: Omeprazole 20 MG CAPSULE.DR PO (05:37)
[2023-04-03 07:39] VITALS: BP 110/65; PULSE 98; RESP 16; TEMP 36.3; O2SAT 96
[2023-04-03] MEDS: Propranolol HCL LA 60 MG CAP.SA.24H 120 MG PO (07:50)
[2023-04-03] MEDS: Furosemide 20 MG TABLET PO ×2 (07:51→17:18)
[2023-04-03] MEDS: OLANZapine 5 MG TABLET PO ×2 (07:51→13:32)
[2023-04-03] MEDS: Sennosides/Docusate Sodium TABLET 2 TAB PO ×2 (07:52→20:14)
[2023-04-03] MEDS: clonazePAM 1 MG TABLET 2 MG PO ×3 (07:52→18:13)
[2023-04-03] MEDS: polyethylene glycoL 3350 17 GM POWD.PACK PO ×2 (07:53→20:16)
[2023-04-03] MEDS: Loratadine 10 MG TABLET PO (07:53)
[2023-04-03] MEDS: Divalproex Sodium Sprinkles 125 MG CAP.DR.SPR 750 MG PO ×2 (07:56→20:14)
[2023-04-03] MEDS: Fluticasone Propionate Nasal 16 GM SPRAY 1 SPRAY NOSTRIL-B (07:58)
[2023-04-03] MEDS: Ziprasidone 20 MG CAPSULE PO (08:04)
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
[2023-04-03] MEDS: Ibuprofen 600 MG TABLET PO ×2 (13:37→20:40)
[2023-04-03 17:10] VITALS: BP 126/55; PULSE 88; TEMP 35.8
[2023-04-03] MEDS: QUEtiapine Fumarate 50 MG TABLET 150 MG PO (17:19)
[2023-04-03] MEDS: diphenhydrAMINE HCL 25 MG CAPSULE 75 MG PO (20:15)
[2023-04-03] MEDS: Melatonin 3 MG TABLET PO (20:15)
[2023-04-03] MEDS: clomiPRAMINE HCl 25 MG CAPSULE 75 MG PO (20:15)
[2023-04-03] MEDS: OLANZapine 10 MG TABLET 20 MG PO (20:15)
--- NOTE | 2023-04-04 | ECG_ITS ---
Test Reason : SOB Blood Pressure : / mmHG Vent. Rate : 080 BPM Atrial Rate : 080 BPM P-R Int : 160 ms QRS Dur : 080 ms QT Int : 406 ms P-R-T Axes : 040 069 060 degrees QTc Int : 468 ms Normal sinus rhythm Normal ECG When compared with ECG of 19-FEB-2023 13:02, No significant change was found Referred By: Ruel Bustos Electronically Signed By:JANET GOODEN MD
[2023-04-04 09:35] VITALS: BP 127/75; PULSE 89; RESP 16; TEMP 36.1; O2SAT 95
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
[2023-04-04] MEDS: polyethylene glycoL 3350 17 GM POWD.PACK PO ×2 (09:47→21:09)
[2023-04-04] MEDS: Furosemide 20 MG TABLET PO ×2 (09:49→16:57)
[2023-04-04] MEDS: Propranolol HCL LA 60 MG CAP.SA.24H 120 MG PO (09:49)
[2023-04-04] MEDS: clonazePAM 1 MG TABLET 2 MG PO ×4 (09:49→18:14)
[2023-04-04] MEDS: Divalproex Sodium Sprinkles 125 MG CAP.DR.SPR 750 MG PO ×2 (09:49→21:09)
[2023-04-04] MEDS: Sennosides/Docusate Sodium TABLET 2 TAB PO ×2 (09:49→21:08)
[2023-04-04] MEDS: OLANZapine 5 MG TABLET PO ×2 (09:49→13:38)
[2023-04-04] MEDS: Omeprazole 20 MG CAPSULE.DR PO (09:49)
[2023-04-04] MEDS: Fluticasone Propionate Nasal 16 GM SPRAY 1 SPRAY NOSTRIL-B (09:50)
[2023-04-04] MEDS: Loratadine 10 MG TABLET PO (09:50)
[2023-04-04] MEDS: Ziprasidone 20 MG CAPSULE PO (10:09)
[2023-04-04] MEDS: ALPRAZolam 0.5 MG TABLET PO (10:16)
[2023-04-04] MEDS: QUEtiapine Fumarate 50 MG TABLET 150 MG PO ×2 (11:09→16:50)
[2023-04-04 16:50] VITALS: BP 105/54; PULSE 90; TEMP 36.8
[2023-04-04] MEDS: Ibuprofen 600 MG TABLET PO (20:39)
[2023-04-04] MEDS: diphenhydrAMINE HCL 25 MG CAPSULE 75 MG PO (21:08)
[2023-04-04] MEDS: OLANZapine 10 MG TABLET 20 MG PO (21:09)
[2023-04-04] MEDS: clomiPRAMINE HCl 25 MG CAPSULE 75 MG PO (21:09)
[2023-04-04] MEDS: Melatonin 3 MG TABLET PO (21:09)
[2023-04-05] VITALS (12 sets, daily range): BP systolic 110–129; BP diastolic 56–75; PULSE 80–99; RESP 16–20; TEMP 36.3–36.4; O2SAT 95–99
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
[2023-04-05] MEDS: Divalproex Sodium Sprinkles 125 MG CAP.DR.SPR 750 MG PO (09:48)
[2023-04-05] MEDS: OLANZapine 5 MG TABLET PO ×2 (09:48→13:10)
[2023-04-05] MEDS: clonazePAM 1 MG TABLET 2 MG PO ×3 (09:48→21:00)
[2023-04-05] MEDS: Furosemide 20 MG TABLET PO (09:48)
[2023-04-05] MEDS: Sennosides/Docusate Sodium TABLET 2 TAB PO ×2 (09:48→19:27)
[2023-04-05] MEDS: Loratadine 10 MG TABLET PO (09:48)
[2023-04-05] MEDS: Omeprazole 20 MG CAPSULE.DR PO (09:48)
[2023-04-05] MEDS: Propranolol HCL LA 60 MG CAP.SA.24H 120 MG PO (09:48)
[2023-04-05] MEDS: polyethylene glycoL 3350 17 GM POWD.PACK PO ×2 (09:57→19:49)
[2023-04-05] MEDS: Fluticasone Propionate Nasal 16 GM SPRAY 1 SPRAY NOSTRIL-B (10:09)
[2023-04-05] MEDS: Ziprasidone 20 MG CAPSULE PO (13:10)
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
[2023-04-05] MEDS: Ziprasidone Mesylate 20 MG VIAL IM (13:42)
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
[2023-04-05] MEDS: diazePAM 10 MG/2 ML CARTRIDGE IM (13:48)
[2023-04-05] MEDS: Midazolam HCl/PF 2 MG/2 ML VIAL 4 MG IM (14:10)
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
[2023-04-05] MEDS: Midazolam HCl/PF 2 MG/2 ML VIAL 8 MG IM (15:35)
[2023-04-05] MEDS: QUEtiapine Fumarate 300 MG TABLET PO (16:33)
[2023-04-05] MEDS: Ibuprofen 600 MG TABLET PO (17:01)
[2023-04-05] MEDS: Melatonin 3 MG TABLET PO (19:27)
[2023-04-05] MEDS: OLANZapine 10 MG TABLET 20 MG PO (19:28)
[2023-04-05] MEDS: clomiPRAMINE HCl 25 MG CAPSULE 75 MG PO (19:28)
[2023-04-05] MEDS: diphenhydrAMINE HCL 25 MG CAPSULE 75 MG PO (19:28)
[2023-04-05] MEDS: Divalproex Sodium Sprinkles 125 MG CAP.DR.SPR 1250 MG PO (19:29)
[2023-04-06] VITALS (8 sets, daily range): BP systolic 114–138; BP diastolic 64–92; PULSE 88–118; RESP 12–24; TEMP 35.9–36.2; O2SAT 94–96
[2023-04-06] MEDS: QUEtiapine Fumarate 300 MG TABLET PO ×4 (04:51→20:29)
[2023-04-06] MEDS: ALPRAZolam 0.5 MG TABLET PO (04:51)
[2023-04-06] MEDS: Omeprazole 20 MG CAPSULE.DR PO (04:51)
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
[2023-04-06] MEDS: Midazolam HCl/PF 2 MG/2 ML VIAL 8 MG IM ×2 (11:09→15:18)
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
[2023-04-06] MEDS: Divalproex Sodium Sprinkles 125 MG CAP.DR.SPR 1250 MG PO ×2 (11:31→19:58)
[2023-04-06] MEDS: clonazePAM 1 MG TABLET 2 MG PO ×3 (11:32→18:49)
[2023-04-06] MEDS: Sennosides/Docusate Sodium TABLET 2 TAB PO ×2 (11:32→20:02)
[2023-04-06] MEDS: Loratadine 10 MG TABLET PO (11:32)
[2023-04-06] MEDS: Propranolol HCL LA 60 MG CAP.SA.24H 120 MG PO (11:34)
[2023-04-06] MEDS: polyethylene glycoL 3350 17 GM POWD.PACK PO ×2 (11:51→19:54)
[2023-04-06] MEDS: OLANZapine 10 MG TABLET 20 MG PO ×2 (11:51→20:28)
[2023-04-06] MEDS: Furosemide 20 MG TABLET PO ×2 (12:09→17:45)
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
--- NOTE | 2023-04-06 16:20 | PC.NURSE ---
At 15:25 patient stated that she felt unsafe and requested IM midazolam. 8 mg midazolam given, 3mg in each thigh and 2 mg in L deltoid.
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
--- NOTE | 2023-04-06 19:28 | PC.NURSE ---
Addendum- at 15:00 patient was transitioned from restraint chair to 4 point restraints for safety and comfort.
[2023-04-06] MEDS: diphenhydrAMINE HCL 25 MG CAPSULE 75 MG PO (20:01)
[2023-04-06] MEDS: clomiPRAMINE HCl 25 MG CAPSULE 75 MG PO (20:03)
[2023-04-06] MEDS: Melatonin 3 MG TABLET PO (20:28)
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
[2023-04-06] MEDS: ALPRAZolam 0.5 MG TABLET 1 MG PO (22:50)
[2023-04-06] MEDS: traZODone HCL 100 MG TABLET PO (22:52)
[2023-04-07] MEDS: Ziprasidone 20 MG CAPSULE PO ×2 (01:04→14:37)
[2023-04-07] MEDS: Zolpidem Tartrate 5 MG TABLET PO (01:04)
--- NOTE | 2023-04-07 02:33 | PC.NURSE ---
PT WAS GIVEN PO GEODON AND AMBIEN AT APPROXIMATELY 0110. AT THIS TIME, PT REFUSED VITAL SIGNS. SECURITY AND RN RELEASED LEFT LEG FROM 4 POINT RESTRAINT. PT STATED IM FREE SHE ATTEMPTED TO MOVE THE REST OF HER LIMBS. PT COULD NOT CONTRACT FOR SAFETY AT THAT TIME. PT FELL ASLEEP AT 0120. AT 0125, PTS RIGHT ARM WAS RELEASED. PT REMAINED SLEEPING. AT 0129, PTS RIGHT LEG AND LEFT ARM WERE RELEASED, ENDING HER RESTRAINT. PT WILL CONTINUE TO BE MONITORED.
[2023-04-07 09:20] VITALS: BP 120/62; PULSE 79; RESP 16; TEMP 36.2; O2SAT 96
[2023-04-07] MEDS: clonazePAM 1 MG TABLET 2 MG PO ×3 (09:44→17:54)
[2023-04-07] MEDS: Propranolol HCL LA 60 MG CAP.SA.24H 120 MG PO (09:44)
[2023-04-07] MEDS: OLANZapine 10 MG TABLET 20 MG PO ×2 (09:44→19:51)
[2023-04-07] MEDS: QUEtiapine Fumarate 300 MG TABLET PO ×3 (09:44→19:50)
[2023-04-07] MEDS: Furosemide 20 MG TABLET PO ×2 (09:45→17:55)
[2023-04-07] MEDS: Omeprazole 20 MG CAPSULE.DR PO (09:45)
[2023-04-07] MEDS: Loratadine 10 MG TABLET PO (09:45)
[2023-04-07] MEDS: Sennosides/Docusate Sodium TABLET 2 TAB PO ×2 (09:45→19:50)
[2023-04-07] MEDS: Fluticasone Propionate Nasal 16 GM SPRAY 1 SPRAY NOSTRIL-B (09:47)
[2023-04-07] MEDS: Divalproex Sodium Sprinkles 125 MG CAP.DR.SPR 1250 MG PO ×2 (09:48→19:49)
[2023-04-07] MEDS: polyethylene glycoL 3350 17 GM POWD.PACK PO ×2 (09:52→19:49)
--- NOTE | 2023-04-07 11:41 | PC.NURSE ---
Marilynn requested that all side rails be put up on her bed to increase her sense of safety while sleeping. Request was granted. Patient observers on shift were all notified that side rails are to be lowered immediately upon her request.
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
[2023-04-07 17:59] VITALS: BP 122/77; PULSE 91; RESP 20; TEMP 36.1; O2SAT 96
[2023-04-07] MEDS: Ibuprofen 600 MG TABLET PO (19:00)
[2023-04-07] MEDS: Melatonin 3 MG TABLET PO (19:50)
[2023-04-07] MEDS: diphenhydrAMINE HCL 25 MG CAPSULE 75 MG PO (19:50)
[2023-04-07] MEDS: traZODone HCL 100 MG TABLET PO (19:50)
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
[2023-04-08 09:19] VITALS: BP 123/63; PULSE 76; RESP 16; TEMP 36.7; O2SAT 94
[2023-04-08] MEDS: Divalproex Sodium Sprinkles 125 MG CAP.DR.SPR 1250 MG PO (09:26)
[2023-04-08] MEDS: clonazePAM 1 MG TABLET 2 MG PO (09:26)
[2023-04-08] MEDS: Propranolol HCL LA 60 MG CAP.SA.24H 120 MG PO (09:26)
[2023-04-08] MEDS: Furosemide 20 MG TABLET PO ×2 (09:26→17:45)
[2023-04-08] MEDS: Sennosides/Docusate Sodium TABLET 2 TAB PO ×2 (09:27→20:26)
[2023-04-08] MEDS: OLANZapine 10 MG TABLET 20 MG PO ×2 (09:27→20:26)
[2023-04-08] MEDS: Loratadine 10 MG TABLET PO (09:27)
[2023-04-08] MEDS: QUEtiapine Fumarate 300 MG TABLET PO ×3 (09:27→19:28)
[2023-04-08] MEDS: Omeprazole 20 MG CAPSULE.DR PO (09:27)
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
[2023-04-08] MEDS: ALPRAZolam 0.5 MG TABLET PO (14:14)
[2023-04-08] MEDS: Ziprasidone 20 MG CAPSULE PO (14:14)
[2023-04-08] MEDS: OXcarbazepine 150 MG TABLET PO ×2 (14:14→17:45)
[2023-04-08] MEDS: polyethylene glycoL 3350 17 GM POWD.PACK PO ×2 (14:25→20:27)
[2023-04-08 17:43] VITALS: BP 107/59; PULSE 83
[2023-04-08] MEDS: diphenhydrAMINE HCL 25 MG CAPSULE 75 MG PO (19:28)
[2023-04-08] MEDS: traZODone HCL 100 MG TABLET PO (20:26)
[2023-04-08] MEDS: Melatonin 3 MG TABLET PO (20:26)
[2023-04-08] MEDS: Divalproex Sodium Sprinkles 125 MG CAP.DR.SPR 750 MG PO (20:26)
[2023-04-08] MEDS: clomiPRAMINE HCl 25 MG CAPSULE 75 MG PO (20:26)
[2023-04-09 08:15] VITALS: BP 111/56; PULSE 90; RESP 16; TEMP 35.7; O2SAT 94
[2023-04-09] MEDS: polyethylene glycoL 3350 17 GM POWD.PACK PO ×2 (08:24→21:47)
[2023-04-09] MEDS: Fluticasone Propionate Nasal 16 GM SPRAY 1 SPRAY NOSTRIL-B (08:24)
[2023-04-09] MEDS: QUEtiapine Fumarate 300 MG TABLET PO ×3 (08:26→21:50)
[2023-04-09] MEDS: Loratadine 10 MG TABLET PO (08:26)
[2023-04-09] MEDS: Sennosides/Docusate Sodium TABLET 2 TAB PO ×2 (08:26→21:51)
[2023-04-09] MEDS: OXcarbazepine 300 MG TABLET PO ×2 (08:26→14:28)
[2023-04-09] MEDS: OLANZapine 10 MG TABLET 20 MG PO ×2 (08:26→21:50)
[2023-04-09] MEDS: Omeprazole 20 MG CAPSULE.DR PO (08:26)
[2023-04-09] MEDS: Propranolol HCL LA 60 MG CAP.SA.24H 120 MG PO (08:27)
[2023-04-09] MEDS: Divalproex Sodium Sprinkles 125 MG CAP.DR.SPR 750 MG PO ×2 (08:27→21:51)
[2023-04-09] MEDS: Furosemide 20 MG TABLET PO (08:27)
[2023-04-09] MEDS: clonazePAM 1 MG TABLET 2 MG PO ×3 (08:41→21:49)
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
[2023-04-09] MEDS: ALPRAZolam 0.5 MG TABLET PO (13:04)
[2023-04-09] MEDS: Acetaminophen 325 MG TABLET 650 MG PO (16:44)
[2023-04-09 16:45] VITALS: BP 90/52; PULSE 83; TEMP 36.4
[2023-04-09] MEDS: Ibuprofen 600 MG TABLET PO (20:25)
[2023-04-09] MEDS: Calcium Carbonate 750 MG TAB.CHEW PO (21:28)
[2023-04-09] MEDS: diphenhydrAMINE HCL 25 MG CAPSULE 75 MG PO (21:47)
[2023-04-09] MEDS: traZODone HCL 100 MG TABLET PO (21:48)
[2023-04-09] MEDS: clomiPRAMINE HCl 25 MG CAPSULE 75 MG PO (21:49)
[2023-04-09] MEDS: Melatonin 3 MG TABLET PO (21:50)
[2023-04-10 10:00] VITALS: BP 134/79; PULSE 98; RESP 16; TEMP 36.8; O2SAT 97
[2023-04-10] MEDS: Divalproex Sodium Sprinkles 125 MG CAP.DR.SPR 750 MG PO ×2 (10:03→20:41)
[2023-04-10] MEDS: polyethylene glycoL 3350 17 GM POWD.PACK PO ×2 (10:03→20:44)
[2023-04-10] MEDS: Propranolol HCL LA 60 MG CAP.SA.24H 120 MG PO (10:04)
[2023-04-10] MEDS: clonazePAM 1 MG TABLET 2 MG PO ×3 (10:04→20:42)
[2023-04-10] MEDS: Furosemide 40 MG TABLET PO (10:05)
[2023-04-10] MEDS: Sennosides/Docusate Sodium TABLET 2 TAB PO ×2 (10:05→20:43)
[2023-04-10] MEDS: Loratadine 10 MG TABLET PO (10:05)
[2023-04-10] MEDS: OXcarbazepine 300 MG TABLET PO ×2 (10:05→16:54)
[2023-04-10] MEDS: Omeprazole 20 MG CAPSULE.DR PO (10:05)
[2023-04-10] MEDS: QUEtiapine Fumarate 300 MG TABLET PO ×3 (10:06→20:43)
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
[2023-04-10] MEDS: OLANZapine 10 MG TABLET 20 MG PO ×3 (10:30→20:44)
[2023-04-10] MEDS: Ziprasidone 20 MG CAPSULE PO (10:55)
--- NOTE | 2023-04-10 11:46 | PC.NURSE ---
PT a & o x 4 this morning, pleasant upon this writers approach. PT allowed VS and med administration without incident. 1:1 and security at bedside. Appears in no distress at this time. Small red prickly rash noted below and between bilateral breasts. MD (Dr. Bustos) made aware via text. Will continue to monitor, no further orders @ this time.
[2023-04-10 14:55] VITALS: BP 130/77; PULSE 89; TEMP 2.1; TEMP 35.8
[2023-04-10] MEDS: Furosemide 20 MG TABLET PO (16:54)
[2023-04-10] MEDS: Melatonin 3 MG TABLET PO (20:43)
[2023-04-10] MEDS: clomiPRAMINE HCl 25 MG CAPSULE 75 MG PO (20:43)
[2023-04-10] MEDS: diphenhydrAMINE HCL 25 MG CAPSULE 75 MG PO (20:43)
[2023-04-10] MEDS: traZODone HCL 100 MG TABLET PO (20:43)
[2023-04-11] MEDS: Melatonin 3 MG TABLET PO ×2 (00:29→20:33)
[2023-04-11] MEDS: ALPRAZolam 0.5 MG TABLET PO (00:30)
[2023-04-11] MEDS: Calcium Carbonate 750 MG TAB.CHEW PO ×2 (00:30→20:05)
[2023-04-11 10:00] VITALS: BP 107/73; PULSE 99; RESP 16; TEMP 36.2; O2SAT 94
[2023-04-11] MEDS: Fluticasone Propionate Nasal 16 GM SPRAY 1 SPRAY NOSTRIL-B (12:13)
[2023-04-11] MEDS: polyethylene glycoL 3350 17 GM POWD.PACK PO ×2 (12:14→20:33)
[2023-04-11] MEDS: Sennosides/Docusate Sodium TABLET 2 TAB PO ×2 (12:15→20:32)
[2023-04-11] MEDS: clonazePAM 1 MG TABLET 2 MG PO ×3 (12:15→20:32)
[2023-04-11] MEDS: Loratadine 10 MG TABLET PO (12:16)
[2023-04-11] MEDS: Omeprazole 20 MG CAPSULE.DR PO (12:16)
[2023-04-11] MEDS: OXcarbazepine 300 MG TABLET PO ×2 (12:16→15:07)
[2023-04-11] MEDS: Furosemide 40 MG TABLET PO (12:16)
[2023-04-11] MEDS: Propranolol HCL LA 60 MG CAP.SA.24H 120 MG PO (12:16)
[2023-04-11] MEDS: QUEtiapine Fumarate 300 MG TABLET PO ×3 (12:16→19:18)
[2023-04-11] MEDS: Divalproex Sodium Sprinkles 125 MG CAP.DR.SPR 750 MG PO (12:17)
[2023-04-11] MEDS: OLANZapine 10 MG TABLET 20 MG PO (12:26)
[2023-04-11] MEDS: NaPROXEN 500 MG TABLET PO (13:41)
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
[2023-04-11] MEDS: diphenhydrAMINE HCL 25 MG CAPSULE 75 MG PO (19:17)
[2023-04-11 19:20] VITALS: BP 103/57; PULSE 89
[2023-04-11] MEDS: Divalproex Sodium Sprinkles 125 MG CAP.DR.SPR 500 MG PO (20:32)
[2023-04-11] MEDS: clomiPRAMINE HCl 25 MG CAPSULE 75 MG PO (20:32)
[2023-04-11] MEDS: traZODone HCL 100 MG TABLET PO (20:32)
[2023-04-11] MEDS: OLANZapine 7.5 MG TABLET 15 MG PO (20:32)
[2023-04-12 09:20] VITALS: BP 116/59; PULSE 104; RESP 18; TEMP 36.6; O2SAT 94
[2023-04-12] MEDS: polyethylene glycoL 3350 17 GM POWD.PACK PO ×2 (09:42→20:30)
[2023-04-12] MEDS: Sennosides/Docusate Sodium TABLET 2 TAB PO ×2 (09:43→20:42)
[2023-04-12] MEDS: Propranolol HCL LA 60 MG CAP.SA.24H 120 MG PO (09:43)
[2023-04-12] MEDS: Loratadine 10 MG TABLET PO (09:43)
[2023-04-12] MEDS: OLANZapine 7.5 MG TABLET 15 MG PO ×2 (09:43→20:35)
[2023-04-12] MEDS: Omeprazole 20 MG CAPSULE.DR PO (09:43)
[2023-04-12] MEDS: QUEtiapine Fumarate 300 MG TABLET PO ×3 (09:43→20:41)
[2023-04-12] MEDS: clonazePAM 1 MG TABLET 2 MG PO ×3 (09:43→20:36)
[2023-04-12] MEDS: Furosemide 40 MG TABLET PO (09:43)
[2023-04-12] MEDS: OXcarbazepine 300 MG TABLET PO ×2 (09:43→14:49)
[2023-04-12] MEDS: Divalproex Sodium Sprinkles 125 MG CAP.DR.SPR 500 MG PO ×2 (09:43→20:39)
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
[2023-04-12] MEDS: NaPROXEN 500 MG TABLET PO (10:05)
[2023-04-12] MEDS: diazePAM 5 MG TABLET PO (11:13)
[2023-04-12] MEDS: Furosemide 20 MG TABLET PO (18:15)
[2023-04-12] MEDS: Calcium Carbonate 750 MG TAB.CHEW PO (18:17)
[2023-04-12 19:08] VITALS: BP 124/71; PULSE 97; RESP 20; TEMP 36.1; O2SAT 99
[2023-04-12] MEDS: clomiPRAMINE HCl 25 MG CAPSULE 75 MG PO (20:32)
[2023-04-12] MEDS: diphenhydrAMINE HCL 25 MG CAPSULE 75 MG PO (20:35)
[2023-04-12] MEDS: Melatonin 3 MG TABLET PO (20:40)
[2023-04-12] MEDS: traZODone HCL 100 MG TABLET PO (20:42)
[2023-04-13 11:23] VITALS: BP 125/62; PULSE 92; RESP 18; TEMP 36.1; O2SAT 93
[2023-04-13] MEDS: Divalproex Sodium Sprinkles 125 MG CAP.DR.SPR 500 MG PO ×2 (11:24→20:16)
[2023-04-13] MEDS: polyethylene glycoL 3350 17 GM POWD.PACK PO ×2 (11:24→20:15)
[2023-04-13] MEDS: Fluticasone Propionate Nasal 16 GM SPRAY 1 SPRAY NOSTRIL-B (11:24)
[2023-04-13] MEDS: OLANZapine 7.5 MG TABLET 15 MG PO ×2 (11:25→20:16)
[2023-04-13] MEDS: Loratadine 10 MG TABLET PO (11:25)
[2023-04-13] MEDS: QUEtiapine Fumarate 300 MG TABLET PO ×3 (11:25→20:18)
[2023-04-13] MEDS: clonazePAM 1 MG TABLET 2 MG PO ×3 (11:25→20:18)
[2023-04-13] MEDS: Propranolol HCL LA 60 MG CAP.SA.24H 120 MG PO (11:25)
[2023-04-13] MEDS: Sennosides/Docusate Sodium TABLET 2 TAB PO ×2 (11:26→20:18)
[2023-04-13] MEDS: Omeprazole 20 MG CAPSULE.DR PO (11:26)
[2023-04-13] MEDS: Furosemide 40 MG TABLET PO (11:26)
[2023-04-13] MEDS: OXcarbazepine 300 MG TABLET PO ×2 (11:26→12:49)
[2023-04-13] MEDS: ALPRAZolam 0.5 MG TABLET PO ×2 (11:29→17:58)
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
[2023-04-13] MEDS: diazePAM 5 MG TABLET PO (12:48)
[2023-04-13] MEDS: Furosemide 20 MG TABLET PO (17:20)
[2023-04-13] MEDS: Ziprasidone Mesylate 20 MG VIAL IM (18:12)
[2023-04-13] MEDS: diphenhydrAMINE HCL 25 MG CAPSULE 75 MG PO (20:16)
[2023-04-13] MEDS: clomiPRAMINE HCl 25 MG CAPSULE 75 MG PO (20:17)
[2023-04-13] MEDS: traZODone HCL 100 MG TABLET PO (20:18)
[2023-04-13] MEDS: Melatonin 3 MG TABLET PO (20:18)
[2023-04-13 20:35] VITALS: BP 123/58; PULSE 92; TEMP 36.1
[2023-04-13] MEDS: NaPROXEN 500 MG TABLET PO (20:37)
[2023-04-14] MEDS: Sennosides/Docusate Sodium TABLET 2 TAB PO ×2 (08:43→20:56)
[2023-04-14] MEDS: Omeprazole 20 MG CAPSULE.DR PO (08:43)
[2023-04-14] MEDS: Divalproex Sodium Sprinkles 125 MG CAP.DR.SPR 500 MG PO ×2 (08:43→21:00)
[2023-04-14] MEDS: polyethylene glycoL 3350 17 GM POWD.PACK PO ×2 (08:43→20:55)
[2023-04-14] MEDS: Loratadine 10 MG TABLET PO (08:44)
[2023-04-14] MEDS: clonazePAM 1 MG TABLET 2 MG PO ×3 (08:44→20:57)
[2023-04-14] MEDS: QUEtiapine Fumarate 300 MG TABLET PO ×3 (08:44→20:59)
[2023-04-14] MEDS: Propranolol HCL LA 60 MG CAP.SA.24H 120 MG PO (08:44)
[2023-04-14] MEDS: OLANZapine 7.5 MG TABLET 15 MG PO ×2 (08:44→20:55)
[2023-04-14] MEDS: OXcarbazepine 300 MG TABLET PO ×2 (08:44→14:00)
[2023-04-14] MEDS: Furosemide 40 MG TABLET PO (08:44)
[2023-04-14] MEDS: ALPRAZolam 0.5 MG TABLET PO ×2 (08:44→14:00)
[2023-04-14 09:02] VITALS: BP 126/80; PULSE 93; RESP 18; TEMP 36.4; O2SAT 97
[2023-04-14] MEDS: Fluticasone Propionate Nasal 16 GM SPRAY 1 SPRAY NOSTRIL-B (09:08)
[2023-04-14] MEDS: diazePAM 5 MG TABLET PO (14:59)
[2023-04-14 15:00] VITALS: BP 131/68; PULSE 100; RESP 18; O2SAT 96
[2023-04-14 17:30] VITALS: BP 124/88; PULSE 98; TEMP 35.8
[2023-04-14] MEDS: Furosemide 20 MG TABLET PO (17:39)
[2023-04-14] MEDS: Ziprasidone Mesylate 20 MG VIAL IM (18:07)
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
[2023-04-14] MEDS: traZODone HCL 100 MG TABLET PO (20:56)
[2023-04-14] MEDS: diphenhydrAMINE HCL 25 MG CAPSULE 75 MG PO (20:56)
[2023-04-14] MEDS: clomiPRAMINE HCl 25 MG CAPSULE 75 MG PO (20:57)
[2023-04-14] MEDS: NaPROXEN 500 MG TABLET PO (20:58)
[2023-04-14] MEDS: Melatonin 3 MG TABLET PO (20:59)
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
[2023-04-15 10:00] VITALS: BP 124/82; PULSE 104; RESP 20; TEMP 36.6; O2SAT 96
[2023-04-15] MEDS: polyethylene glycoL 3350 17 GM POWD.PACK PO ×2 (10:27→22:57)
[2023-04-15] MEDS: Divalproex Sodium Sprinkles 125 MG CAP.DR.SPR 500 MG PO ×2 (10:27→21:09)
[2023-04-15] MEDS: Sennosides/Docusate Sodium TABLET 2 TAB PO ×2 (10:28→21:06)
[2023-04-15] MEDS: clonazePAM 1 MG TABLET 2 MG PO ×3 (10:28→21:11)
[2023-04-15] MEDS: Furosemide 40 MG TABLET PO (10:29)
[2023-04-15] MEDS: QUEtiapine Fumarate 300 MG TABLET PO ×3 (10:29→21:07)
[2023-04-15] MEDS: Propranolol HCL LA 60 MG CAP.SA.24H 120 MG PO (10:29)
[2023-04-15] MEDS: Loratadine 10 MG TABLET PO (10:29)
[2023-04-15] MEDS: OXcarbazepine 300 MG TABLET PO ×2 (10:29→15:07)
[2023-04-15] MEDS: Omeprazole 20 MG CAPSULE.DR PO (10:29)
[2023-04-15] MEDS: OLANZapine 7.5 MG TABLET 15 MG PO ×2 (10:29→22:56)
[2023-04-15] MEDS: Calcium Carbonate 750 MG TAB.CHEW PO (11:29)
[2023-04-15] MEDS: Fluticasone Propionate Nasal 16 GM SPRAY 1 SPRAY NOSTRIL-B (11:33)
[2023-04-15] MEDS: Furosemide 20 MG TABLET PO (18:01)
[2023-04-15] MEDS: NaPROXEN 500 MG TABLET PO (19:41)
[2023-04-15 20:01] VITALS: BP 136/66; PULSE 90; RESP 18; TEMP 36.8; O2SAT 98
[2023-04-15] MEDS: diphenhydrAMINE HCL 25 MG CAPSULE 75 MG PO (21:06)
[2023-04-15] MEDS: clomiPRAMINE HCl 25 MG CAPSULE 75 MG PO (21:08)
[2023-04-15] MEDS: ALPRAZolam 0.5 MG TABLET PO (21:10)
[2023-04-15] MEDS: Melatonin 3 MG TABLET PO (21:11)
[2023-04-15] MEDS: traZODone HCL 100 MG TABLET PO (21:12)
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
[2023-04-15] MEDS: diphenhydrAMINE HCL 50 MG/ML VIAL IM (21:56)
[2023-04-15] MEDS: Ziprasidone Mesylate 20 MG VIAL IM (22:59)
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
[2023-04-16] MEDS: Acetaminophen 325 MG TABLET 650 MG PO (00:14)
[2023-04-16] MEDS: Zolpidem Tartrate 5 MG TABLET PO ×3 (00:14→22:13)
[2023-04-16] MEDS: Lidocaine 4 % Cream KIT 1 APPL TOPICAL (00:28)
[2023-04-16 04:03] LABS: HIV AB/AG Nonreactive (Nonreactive); HIV Num 1 0.22 S/CO (0.00-0.99)
--- NOTE | 2023-04-16 05:23 | PC.NURSE ---
PT TAKEN OUT OF 4 POINT RESTRAINTS AT 0005. PT USED THE BATHROOM AND ATE A SNACK. REMAINED IN BEHAVIORAL CONTROL.L PT RECEIVED TYLENOL FOR SORE WRISTS AND AMBIEN. PT SLEPT THROUGHOUT THE NIGHT,
[2023-04-16] MEDS: Omeprazole 20 MG CAPSULE.DR PO (10:59)
[2023-04-16] MEDS: Divalproex Sodium Sprinkles 125 MG CAP.DR.SPR 500 MG PO ×2 (10:59→21:14)
[2023-04-16] MEDS: polyethylene glycoL 3350 17 GM POWD.PACK PO ×2 (10:59→21:14)
[2023-04-16] MEDS: Sennosides/Docusate Sodium TABLET 2 TAB PO ×2 (11:00→21:13)
[2023-04-16] MEDS: Propranolol HCL LA 60 MG CAP.SA.24H 120 MG PO (11:00)
[2023-04-16] MEDS: OLANZapine 7.5 MG TABLET 15 MG PO ×2 (11:00→21:12)
[2023-04-16] MEDS: OXcarbazepine 300 MG TABLET PO ×2 (11:00→15:59)
[2023-04-16 11:01] VITALS: BP 139/61; PULSE 100; RESP 18; TEMP 36.2; O2SAT 96
[2023-04-16] MEDS: QUEtiapine Fumarate 300 MG TABLET PO ×2 (11:01→21:13)
[2023-04-16] MEDS: Loratadine 10 MG TABLET PO (11:01)
[2023-04-16] MEDS: clonazePAM 1 MG TABLET 2 MG PO ×3 (11:01→21:10)
[2023-04-16] MEDS: Furosemide 40 MG TABLET PO (11:01)
[2023-04-16] MEDS: Fluticasone Propionate Nasal 16 GM SPRAY 1 SPRAY NOSTRIL-B (11:02)
[2023-04-16] MEDS: diazePAM 10 MG/2 ML CARTRIDGE IM ×2 (11:37→15:55)
[2023-04-16] MEDS: Ziprasidone Mesylate 20 MG VIAL IM ×2 (11:38→15:56)
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
[2023-04-16] MEDS: Furosemide 20 MG TABLET PO (21:10)
[2023-04-16] MEDS: clomiPRAMINE HCl 25 MG CAPSULE 75 MG PO (21:11)
[2023-04-16] MEDS: diphenhydrAMINE HCL 25 MG CAPSULE 75 MG PO (21:11)
[2023-04-16] MEDS: Melatonin 3 MG TABLET PO (21:12)
[2023-04-16] MEDS: ALPRAZolam 0.5 MG TABLET PO (21:13)
[2023-04-16] MEDS: traZODone HCL 100 MG TABLET PO (21:14)
[2023-04-16] MEDS: Ziprasidone 20 MG CAPSULE PO (22:13)
[2023-04-16] MEDS: NaPROXEN 500 MG TABLET PO (22:17)
[2023-04-17 05:43] LABS: HBS Num1 > 1000.00 mIU/mL (0-7.99); HBc Num1 0.45 S/CO (0.00-0.79); HBsAGNum1 0.66 S/CO (0.00-0.99); Hepatitis A Antibody IgM 0.33 Index (0-0.79); Hepatitis B Core Antibody Nonreactive (Nonreactive); Hepatitis B Surface Antigen Negative (Negative); ~Hepatitis A Antibody IgM Nonreactive (Nonreactive); ~Hepatitis B Surface Antibody REACTIVE (Nonreactive)
[2023-04-17] MEDS: Fluticasone Propionate Nasal 16 GM SPRAY 1 SPRAY NOSTRIL-B (09:01)
[2023-04-17] MEDS: clonazePAM 1 MG TABLET 2 MG PO ×3 (09:01→23:03)
[2023-04-17] MEDS: polyethylene glycoL 3350 17 GM POWD.PACK PO ×3 (09:01→23:06)
[2023-04-17] MEDS: Loratadine 10 MG TABLET PO (09:02)
[2023-04-17] MEDS: OLANZapine 7.5 MG TABLET 15 MG PO ×2 (09:02→23:09)
[2023-04-17] MEDS: Furosemide 40 MG TABLET PO ×3 (09:02→17:39)
[2023-04-17] MEDS: Propranolol HCL LA 60 MG CAP.SA.24H 120 MG PO (09:02)
[2023-04-17] MEDS: Divalproex Sodium Sprinkles 125 MG CAP.DR.SPR 500 MG PO ×2 (09:03→23:10)
[2023-04-17] MEDS: OXcarbazepine 300 MG TABLET PO ×2 (09:03→14:47)
[2023-04-17] MEDS: Omeprazole 20 MG CAPSULE.DR PO (09:03)
[2023-04-17] MEDS: Sennosides/Docusate Sodium TABLET 2 TAB PO (09:03)
[2023-04-17] MEDS: QUEtiapine Fumarate 300 MG TABLET PO ×3 (09:11→23:07)
[2023-04-17 09:30] VITALS: BP 120/71; PULSE 90; RESP 16; TEMP 36.1; O2SAT 96
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
[2023-04-17 17:20] VITALS: BP 111/76; PULSE 88; TEMP 35.4
[2023-04-17] MEDS: diazePAM 10 MG/2 ML CARTRIDGE IM (18:40)
[2023-04-17] MEDS: Ziprasidone Mesylate 20 MG VIAL IM (18:41)
[2023-04-17] MEDS: clomiPRAMINE HCl 25 MG CAPSULE 75 MG PO (23:06)
[2023-04-17] MEDS: Melatonin 3 MG TABLET PO (23:06)
[2023-04-17] MEDS: traZODone HCL 100 MG TABLET PO (23:07)
[2023-04-17] MEDS: diphenhydrAMINE HCL 25 MG CAPSULE 75 MG PO (23:08)
[2023-04-17] MEDS: Zolpidem Tartrate 5 MG TABLET PO (23:29)
[2023-04-18 10:00] VITALS: BP 115/73; PULSE 100; RESP 16; TEMP 36.4; O2SAT 96
[2023-04-18] MEDS: polyethylene glycoL 3350 17 GM POWD.PACK PO ×3 (10:07→21:15)
[2023-04-18] MEDS: Divalproex Sodium Sprinkles 125 MG CAP.DR.SPR 500 MG PO ×2 (10:07→21:16)
[2023-04-18] MEDS: Fluticasone Propionate Nasal 16 GM SPRAY 1 SPRAY NOSTRIL-B (10:08)
[2023-04-18] MEDS: Loratadine 10 MG TABLET PO (10:09)
[2023-04-18] MEDS: Furosemide 40 MG TABLET PO ×2 (10:09→17:29)
[2023-04-18] MEDS: OLANZapine 7.5 MG TABLET 15 MG PO ×2 (10:09→21:18)
[2023-04-18] MEDS: clonazePAM 1 MG TABLET 2 MG PO ×3 (10:10→21:15)
[2023-04-18] MEDS: QUEtiapine Fumarate 300 MG TABLET PO ×3 (10:10→21:15)
[2023-04-18] MEDS: Omeprazole 20 MG CAPSULE.DR PO (10:10)
[2023-04-18] MEDS: OXcarbazepine 300 MG TABLET PO (10:30)
[2023-04-18] MEDS: Propranolol HCL LA 60 MG CAP.SA.24H 120 MG PO (10:31)
[2023-04-18] MEDS: OXcarbazepine 300 MG TABLET 600 MG PO (14:38)
[2023-04-18] MEDS: Ziprasidone Mesylate 20 MG VIAL IM (15:28)
[2023-04-18] MEDS: diazePAM 10 MG/2 ML CARTRIDGE IM (15:35)
[2023-04-18 17:20] VITALS: BP 110/55; PULSE 85; TEMP 36.4
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
[2023-04-18] MEDS: clomiPRAMINE HCl 25 MG CAPSULE 75 MG PO (21:15)
[2023-04-18] MEDS: diphenhydrAMINE HCL 25 MG CAPSULE 75 MG PO (21:17)
[2023-04-18] MEDS: traZODone HCL 100 MG TABLET PO (21:18)
[2023-04-18] MEDS: Melatonin 3 MG TABLET PO (21:18)
[2023-04-19 09:17] VITALS: BP 110/60; PULSE 87; RESP 16; TEMP 36.2; O2SAT 98
[2023-04-19] MEDS: polyethylene glycoL 3350 17 GM POWD.PACK PO ×2 (09:23→21:44)
[2023-04-19] MEDS: QUEtiapine Fumarate 300 MG TABLET PO ×3 (09:24→21:39)
[2023-04-19] MEDS: Omeprazole 20 MG CAPSULE.DR PO (09:24)
[2023-04-19] MEDS: clonazePAM 1 MG TABLET 2 MG PO ×3 (09:24→21:40)
[2023-04-19] MEDS: OXcarbazepine 300 MG TABLET 600 MG PO ×2 (09:24→13:07)
[2023-04-19] MEDS: Divalproex Sodium Sprinkles 125 MG CAP.DR.SPR 500 MG PO ×2 (09:24→21:42)
[2023-04-19] MEDS: Propranolol HCL LA 60 MG CAP.SA.24H 120 MG PO (09:25)
[2023-04-19] MEDS: OLANZapine 7.5 MG TABLET 15 MG PO ×2 (09:25→21:41)
[2023-04-19] MEDS: Loratadine 10 MG TABLET PO (09:25)
[2023-04-19] MEDS: Furosemide 40 MG TABLET PO ×2 (09:25→17:52)
[2023-04-19] MEDS: Fluticasone Propionate Nasal 16 GM SPRAY 1 SPRAY NOSTRIL-B (09:31)
[2023-04-19] MEDS: diazePAM 10 MG/2 ML CARTRIDGE IM ×2 (14:39→17:41)
[2023-04-19] MEDS: Ziprasidone Mesylate 20 MG VIAL IM ×2 (14:40→17:47)
[2023-04-19 17:57] VITALS: BP 125/84; PULSE 92; RESP 18; TEMP 36.2; O2SAT 96
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
[2023-04-19] MEDS: diphenhydrAMINE HCL 25 MG CAPSULE 75 MG PO (21:38)
[2023-04-19] MEDS: clomiPRAMINE HCl 25 MG CAPSULE 75 MG PO (21:40)
[2023-04-19] MEDS: Melatonin 3 MG TABLET PO (21:42)
[2023-04-19] MEDS: traZODone HCL 100 MG TABLET PO (21:42)
[2023-04-19] MEDS: NaPROXEN 500 MG TABLET PO (22:32)
[2023-04-19] MEDS: Zolpidem Tartrate 5 MG TABLET PO (23:18)
[2023-04-20] MEDS: Ibuprofen 600 MG TABLET PO (06:06)
[2023-04-20 11:00] VITALS: BP 126/80; PULSE 96; RESP 16; TEMP 36.5; O2SAT 96
[2023-04-20] MEDS: Fluticasone Propionate Nasal 16 GM SPRAY 1 SPRAY NOSTRIL-B (11:11)
[2023-04-20] MEDS: polyethylene glycoL 3350 17 GM POWD.PACK PO ×3 (11:12→20:58)
[2023-04-20] MEDS: Divalproex Sodium Sprinkles 125 MG CAP.DR.SPR 500 MG PO ×2 (11:13→20:57)
[2023-04-20] MEDS: Furosemide 40 MG TABLET PO ×2 (11:14→17:07)
[2023-04-20] MEDS: QUEtiapine Fumarate 300 MG TABLET PO ×3 (11:15→20:57)
[2023-04-20] MEDS: clonazePAM 1 MG TABLET 2 MG PO ×3 (11:15→20:57)
[2023-04-20] MEDS: OXcarbazepine 300 MG TABLET 600 MG PO ×2 (11:15→17:08)
[2023-04-20] MEDS: Omeprazole 20 MG CAPSULE.DR PO (11:15)
[2023-04-20] MEDS: OLANZapine 7.5 MG TABLET 15 MG PO ×2 (11:15→20:57)
[2023-04-20] MEDS: Propranolol HCL LA 60 MG CAP.SA.24H 120 MG PO (11:15)
[2023-04-20] MEDS: Loratadine 10 MG TABLET PO (11:15)
[2023-04-20] MEDS: Ziprasidone Mesylate 20 MG VIAL IM ×2 (11:23→21:06)
[2023-04-20] MEDS: diazePAM 10 MG/2 ML CARTRIDGE IM ×2 (11:23→21:17)
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
[2023-04-20 20:34] VITALS: BP 124/76; PULSE 92; RESP 18; TEMP 36.6; O2SAT 98
[2023-04-20] MEDS: clomiPRAMINE HCl 25 MG CAPSULE 75 MG PO (20:57)
[2023-04-20] MEDS: traZODone HCL 100 MG TABLET PO (20:58)
[2023-04-20] MEDS: Zolpidem Tartrate 5 MG TABLET PO (20:58)
[2023-04-20] MEDS: diphenhydrAMINE HCL 25 MG CAPSULE 75 MG PO (20:58)
[2023-04-20] MEDS: Melatonin 3 MG TABLET PO (20:58)
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
[2023-04-21 09:45] VITALS: BP 135/72; PULSE 106; RESP 20; TEMP 36.1; O2SAT 95
[2023-04-21] MEDS: Omeprazole 20 MG CAPSULE.DR PO (09:49)
[2023-04-21] MEDS: clonazePAM 1 MG TABLET 2 MG PO ×3 (09:49→21:48)
[2023-04-21] MEDS: OLANZapine 7.5 MG TABLET 15 MG PO ×2 (09:49→21:48)
[2023-04-21] MEDS: polyethylene glycoL 3350 17 GM POWD.PACK PO ×3 (09:49→21:48)
[2023-04-21] MEDS: QUEtiapine Fumarate 300 MG TABLET PO ×3 (09:49→21:48)
[2023-04-21] MEDS: Fluticasone Propionate Nasal 16 GM SPRAY 1 SPRAY NOSTRIL-B (09:49)
[2023-04-21] MEDS: OXcarbazepine 300 MG TABLET 600 MG PO ×2 (09:49→14:10)
[2023-04-21] MEDS: Loratadine 10 MG TABLET PO (09:49)
[2023-04-21] MEDS: Divalproex Sodium Sprinkles 125 MG CAP.DR.SPR 500 MG PO ×2 (09:49→21:47)
[2023-04-21] MEDS: Furosemide 40 MG TABLET PO ×2 (09:50→17:28)
[2023-04-21] MEDS: Propranolol HCL LA 60 MG CAP.SA.24H 120 MG PO (09:50)
[2023-04-21] MEDS: diazePAM 10 MG/2 ML CARTRIDGE IM ×2 (10:10→21:30)
[2023-04-21] MEDS: Ziprasidone Mesylate 20 MG VIAL IM ×2 (10:11→21:29)
[2023-04-21 18:21] VITALS: BP 128/79; PULSE 91; RESP 18; TEMP 36.6; O2SAT 98
[2023-04-21] MEDS: Zolpidem Tartrate 5 MG TABLET PO (21:48)
[2023-04-21] MEDS: Ibuprofen 600 MG TABLET PO (21:48)
[2023-04-21] MEDS: diphenhydrAMINE HCL 25 MG CAPSULE 75 MG PO (21:48)
[2023-04-21] MEDS: Melatonin 3 MG TABLET PO ×2 (21:48)
[2023-04-21] MEDS: traZODone HCL 100 MG TABLET PO (21:48)
[2023-04-21] MEDS: clomiPRAMINE HCl 25 MG CAPSULE 75 MG PO (21:49)
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
[2023-04-22] MEDS: diazePAM 10 MG/2 ML CARTRIDGE IM (12:05)
[2023-04-22] MEDS: Ziprasidone Mesylate 20 MG VIAL IM (12:05)
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
[2023-04-22 12:55] VITALS: PULSE 83; RESP 16; O2SAT 94
[2023-04-22] MEDS: Divalproex Sodium 500 MG TABLET.DR PO ×2 (16:02→21:33)
[2023-04-22] MEDS: QUEtiapine Fumarate 300 MG TABLET PO ×2 (16:02→21:36)
[2023-04-22 16:15] VITALS: BP 114/58; PULSE 95; TEMP 36.5
[2023-04-22] MEDS: polyethylene glycoL 3350 17 GM POWD.PACK PO ×2 (16:22→21:38)
[2023-04-22] MEDS: Furosemide 40 MG TABLET PO (16:22)
[2023-04-22] MEDS: NaPROXEN 500 MG TABLET PO (16:36)
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
[2023-04-22] MEDS: Acetaminophen 325 MG TABLET 650 MG PO (19:06)
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
[2023-04-22] MEDS: OLANZapine 7.5 MG TABLET 15 MG PO (21:33)
[2023-04-22] MEDS: diphenhydrAMINE HCL 25 MG CAPSULE 75 MG PO (21:34)
[2023-04-22] MEDS: Zolpidem Tartrate 5 MG TABLET PO (21:34)
[2023-04-22] MEDS: clomiPRAMINE HCl 25 MG CAPSULE 75 MG PO (21:35)
[2023-04-22] MEDS: traZODone HCL 100 MG TABLET PO (21:36)
[2023-04-22] MEDS: Melatonin 3 MG TABLET PO (21:37)
[2023-04-22] MEDS: clonazePAM 1 MG TABLET 2 MG PO (21:37)
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
[2023-04-23 11:05] VITALS: BP 125/69; PULSE 102; RESP 18; TEMP 36.4; O2SAT 96
[2023-04-23] MEDS: Artificial Tears 15 ML DROPS 2 DROP EYE-BOTH (11:05)
[2023-04-23] MEDS: Fluticasone Propionate Nasal 16 GM SPRAY 1 SPRAY NOSTRIL-B (11:05)
[2023-04-23] MEDS: Omeprazole 20 MG CAPSULE.DR PO (11:05)
[2023-04-23] MEDS: Propranolol HCL LA 60 MG CAP.SA.24H 120 MG PO (11:05)
[2023-04-23] MEDS: polyethylene glycoL 3350 17 GM POWD.PACK PO ×2 (11:05→20:37)
[2023-04-23] MEDS: Furosemide 40 MG TABLET PO ×2 (11:06→17:20)
[2023-04-23] MEDS: clonazePAM 1 MG TABLET 2 MG PO ×3 (11:06→20:34)
[2023-04-23] MEDS: Divalproex Sodium 500 MG TABLET.DR PO ×3 (11:06→20:31)
[2023-04-23] MEDS: OXcarbazepine 300 MG TABLET 600 MG PO ×2 (11:06→15:08)
[2023-04-23] MEDS: Loratadine 10 MG TABLET PO (11:06)
[2023-04-23] MEDS: OLANZapine 7.5 MG TABLET 15 MG PO ×2 (11:06→20:31)
[2023-04-23] MEDS: QUEtiapine Fumarate 300 MG TABLET PO ×3 (11:07→20:36)
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
[2023-04-23 17:15] VITALS: BP 121/68; PULSE 91; TEMP 35.1
[2023-04-23] MEDS: diphenhydrAMINE HCL 25 MG CAPSULE 75 MG PO (20:29)
[2023-04-23] MEDS: traZODone HCL 100 MG TABLET PO (20:31)
[2023-04-23] MEDS: clomiPRAMINE HCl 25 MG CAPSULE 75 MG PO (20:34)
[2023-04-23] MEDS: Melatonin 3 MG TABLET PO (20:36)
[2023-04-23] MEDS: Zolpidem Tartrate 5 MG TABLET PO (20:46)
[2023-04-24] MEDS: Calcium Carbonate 750 MG TAB.CHEW PO (00:40)
[2023-04-24 07:50] VITALS: BP 112/82; PULSE 86; RESP 16; TEMP 36.9; O2SAT 98
[2023-04-24] MEDS: Divalproex Sodium 500 MG TABLET.DR PO ×3 (07:51→21:07)
[2023-04-24] MEDS: Propranolol HCL LA 60 MG CAP.SA.24H 120 MG PO (07:51)
[2023-04-24] MEDS: clonazePAM 1 MG TABLET 2 MG PO ×3 (07:52→21:09)
[2023-04-24] MEDS: ALPRAZolam 0.5 MG TABLET PO (07:52)
[2023-04-24] MEDS: OXcarbazepine 300 MG TABLET 600 MG PO ×2 (07:52→14:48)
[2023-04-24] MEDS: OLANZapine 7.5 MG TABLET 15 MG PO ×2 (07:52→21:07)
[2023-04-24] MEDS: Loratadine 10 MG TABLET PO (07:53)
[2023-04-24] MEDS: QUEtiapine Fumarate 300 MG TABLET PO ×3 (07:53→21:09)
[2023-04-24] MEDS: Omeprazole 20 MG CAPSULE.DR PO (07:53)
[2023-04-24] MEDS: Furosemide 40 MG TABLET PO ×2 (07:53→17:10)
[2023-04-24] MEDS: Ziprasidone Mesylate 20 MG VIAL IM (08:09)
[2023-04-24] MEDS: diazePAM 10 MG/2 ML CARTRIDGE IM (08:10)
--- NOTE | 2023-04-24 08:19 | PC.NURSE ---
pt reported to security she was feeling aggitated and anxious . pt requested IM Geodon and Valium . Adminstered per order with good effect.
[2023-04-24 17:05] VITALS: BP 135/69; PULSE 91; TEMP 35.7
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
[2023-04-24] MEDS: NaPROXEN 500 MG TABLET PO (19:21)
[2023-04-24] MEDS: clomiPRAMINE HCl 25 MG CAPSULE 75 MG PO (21:07)
[2023-04-24] MEDS: polyethylene glycoL 3350 17 GM POWD.PACK PO (21:08)
[2023-04-24] MEDS: diphenhydrAMINE HCL 25 MG CAPSULE 75 MG PO (21:08)
[2023-04-24] MEDS: traZODone HCL 100 MG TABLET PO (21:08)
[2023-04-24] MEDS: Melatonin 3 MG TABLET PO ×2 (21:09→22:11)
[2023-04-24] MEDS: Zolpidem Tartrate 5 MG TABLET PO ×2 (21:12→22:11)
[2023-04-25 07:00] VITALS: BMI 46.1
[2023-04-25 10:00] VITALS: BP 125/71; PULSE 104; RESP 16; TEMP 36.2; O2SAT 94
[2023-04-25] MEDS: OXcarbazepine 300 MG TABLET 600 MG PO ×2 (10:15→15:14)
[2023-04-25] MEDS: polyethylene glycoL 3350 17 GM POWD.PACK PO ×2 (10:15→20:54)
[2023-04-25] MEDS: clonazePAM 1 MG TABLET 2 MG PO ×3 (10:15→20:53)
[2023-04-25] MEDS: QUEtiapine Fumarate 300 MG TABLET PO ×3 (10:15→20:54)
[2023-04-25] MEDS: Divalproex Sodium 500 MG TABLET.DR PO ×3 (10:16→20:54)
[2023-04-25] MEDS: OLANZapine 7.5 MG TABLET 15 MG PO ×2 (10:16→20:53)
[2023-04-25] MEDS: Propranolol HCL LA 60 MG CAP.SA.24H 120 MG PO (10:16)
[2023-04-25] MEDS: Furosemide 40 MG TABLET PO ×2 (10:16→16:49)
[2023-04-25] MEDS: Loratadine 10 MG TABLET PO (10:16)
[2023-04-25] MEDS: Omeprazole 20 MG CAPSULE.DR PO (10:17)
[2023-04-25] MEDS: Fluticasone Propionate Nasal 16 GM SPRAY 1 SPRAY NOSTRIL-B (10:27)
[2023-04-25 17:02] VITALS: BP 102/76; PULSE 86; RESP 24; TEMP 37.1; O2SAT 93
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
[2023-04-25] MEDS: Ziprasidone 20 MG CAPSULE PO (18:09)
[2023-04-25] MEDS: ALPRAZolam 0.5 MG TABLET PO (18:09)
[2023-04-25] MEDS: Calcium Carbonate 750 MG TAB.CHEW PO (18:29)
[2023-04-25] MEDS: diazePAM 10 MG/2 ML CARTRIDGE IM (18:29)
[2023-04-25] MEDS: clomiPRAMINE HCl 25 MG CAPSULE 75 MG PO (20:52)
[2023-04-25] MEDS: diphenhydrAMINE HCL 25 MG CAPSULE 75 MG PO (20:52)
[2023-04-25] MEDS: Melatonin 3 MG TABLET PO (20:53)
[2023-04-25] MEDS: traZODone HCL 100 MG TABLET PO (20:54)
[2023-04-25] MEDS: Zolpidem Tartrate 5 MG TABLET PO (21:03)
[2023-04-26 09:35] VITALS: BP 130/63; PULSE 96; RESP 16; TEMP 36.5; O2SAT 96
[2023-04-26] MEDS: Furosemide 40 MG TABLET PO ×2 (09:35→18:21)
[2023-04-26] MEDS: Fluticasone Propionate Nasal 16 GM SPRAY 1 SPRAY NOSTRIL-B (09:35)
[2023-04-26] MEDS: Divalproex Sodium 500 MG TABLET.DR PO ×3 (09:35→20:13)
[2023-04-26] MEDS: polyethylene glycoL 3350 17 GM POWD.PACK PO ×2 (09:35→20:14)
[2023-04-26] MEDS: Omeprazole 20 MG CAPSULE.DR PO (09:35)
[2023-04-26] MEDS: clonazePAM 1 MG TABLET 2 MG PO ×3 (09:35→20:13)
[2023-04-26] MEDS: OXcarbazepine 300 MG TABLET 600 MG PO ×2 (09:36→15:13)
[2023-04-26] MEDS: QUEtiapine Fumarate 300 MG TABLET PO ×3 (09:36→20:13)
[2023-04-26] MEDS: OLANZapine 7.5 MG TABLET 15 MG PO ×2 (09:36→20:13)
[2023-04-26] MEDS: Propranolol HCL LA 60 MG CAP.SA.24H 120 MG PO (09:36)
[2023-04-26] MEDS: Loratadine 10 MG TABLET PO (09:36)
[2023-04-26 10:31] VITALS: PULSE 88; RESP 14; O2SAT 98
--- NOTE | 2023-04-26 14:31 | PM.EVENT ---
Documented by User: VICTOR MANUEL Baptiste 04/26/23 19:25 Event Note Date of Service: 04/26/23 Event Note: Medical consult for shortness of breath and right hand swelling with a question of cellulitis. Patient seen and examined at bedside. Patient complains of right hand swelling and tenderness. Denies any known trauma to the area, denies any recent falls. Upon examination there are 2 small superficial lesions on the dorsal aspect of hand possibly secondary to scratching. There is no warmth or erythema, no signs of infection or cellulitis. And may be slightly swollen though it is difficult to tell since patient is overall edematous in upper and lower extremities. There is no indication for antibiotics at this time. Acetaminophen for pain management. Patient also complaining of increasing shortness of breath the past 3 days. Patient reports history of asthma, but not currently on any home inhalers. Patient says that she has difficulty breathing with position changes and with ambulation. At rest patient satting at 98% O2 on RA, but noted to become hypoxic with position changes and with ambulation, dipping as low as 85% on RA. However, patient's O2 sat would fluctuate with ambulation from hypoxia to 95% on RA. Pt denies cough. Denies pleuritic chest pain. Patient says she has been experiencing substernal chest pain on and off for the past few weeks. Patient had troponins drawn yesterday which were negative and an EKG which showed normal sinus rhythm with no evidence of ST elevations or depressions. Patient also denies fever, chills, nausea, vomiting, abdominal pain. Patient's lungs clear to auscultation, no wheezing, rhonchi, rales. There is currently no indication for albuterol inhaler. Will get chest x-ray to rule out pneumonia vs pneumothorax vs pleural effusion. Would encourage weight reduction and incentive spirometry for now. Time Spent With Patient Time: Total time managing care of this patient today ____ minutes. Documented by User: Paul Yates MD 04/27/23 06:55 Event Note Date of Service: 04/27/23
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
[2023-04-26] MEDS: diazePAM 10 MG/2 ML CARTRIDGE IM (18:44)
[2023-04-26] MEDS: Ziprasidone Mesylate 20 MG VIAL IM (18:45)
[2023-04-26] MEDS: Melatonin 3 MG TABLET PO (20:13)
[2023-04-26] MEDS: diphenhydrAMINE HCL 25 MG CAPSULE 75 MG PO (20:13)
[2023-04-26] MEDS: traZODone HCL 100 MG TABLET PO (20:13)
[2023-04-26] MEDS: clomiPRAMINE HCl 25 MG CAPSULE 75 MG PO (20:13)
[2023-04-26] MEDS: Zolpidem Tartrate 5 MG TABLET PO (20:15)
[2023-04-26 22:00] VITALS: BP 121/78; PULSE 84; TEMP 36.7; O2SAT 98
[2023-04-27 09:51] VITALS: BP 131/74; PULSE 84; RESP 16; TEMP 36.9; O2SAT 97
[2023-04-27] MEDS: Loratadine 10 MG TABLET PO (09:55)
[2023-04-27] MEDS: OXcarbazepine 300 MG TABLET 600 MG PO ×2 (09:55→16:30)
[2023-04-27] MEDS: clonazePAM 1 MG TABLET 2 MG PO ×3 (09:55→22:57)
[2023-04-27] MEDS: Propranolol HCL LA 60 MG CAP.SA.24H 120 MG PO (09:55)
[2023-04-27] MEDS: OLANZapine 7.5 MG TABLET 15 MG PO ×2 (09:55→22:53)
[2023-04-27] MEDS: Divalproex Sodium 500 MG TABLET.DR PO ×3 (09:55→22:56)
[2023-04-27] MEDS: Furosemide 40 MG TABLET PO ×2 (09:55→16:33)
[2023-04-27] MEDS: Omeprazole 20 MG CAPSULE.DR PO (09:55)
[2023-04-27] MEDS: polyethylene glycoL 3350 17 GM POWD.PACK PO (09:56)
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
[2023-04-27] MEDS: QUEtiapine Fumarate 300 MG TABLET PO ×3 (10:24→22:57)
--- NOTE | 2023-04-27 14:27 | PC.NURSE ---
attempted to wake pt @ 1428 for medication scheduled @ 1400 & 1300. Pt refused to wake. Medications not administered. Will attempt to wake again at 1500.
[2023-04-27 16:25] VITALS: BP 99/53; PULSE 81; TEMP 35.1
[2023-04-27 19:52] VITALS: O2SAT 94
[2023-04-27] MEDS: diazePAM 10 MG/2 ML CARTRIDGE IM (20:22)
[2023-04-27] MEDS: Ziprasidone Mesylate 20 MG VIAL IM (20:24)
[2023-04-27] MEDS: clomiPRAMINE HCl 25 MG CAPSULE 75 MG PO (22:53)
[2023-04-27] MEDS: traZODone HCL 100 MG TABLET PO (22:54)
[2023-04-27] MEDS: diphenhydrAMINE HCL 25 MG CAPSULE 75 MG PO (22:54)
[2023-04-27] MEDS: Melatonin 3 MG TABLET PO (22:56)
[2023-04-28 09:00] VITALS: BP 134/78; PULSE 93; RESP 20; TEMP 36.2; O2SAT 99
[2023-04-28] MEDS: Fluticasone Propionate Nasal 16 GM SPRAY 1 SPRAY NOSTRIL-B (10:12)
[2023-04-28] MEDS: polyethylene glycoL 3350 17 GM POWD.PACK PO ×2 (10:12→21:13)
[2023-04-28] MEDS: QUEtiapine Fumarate 300 MG TABLET PO ×3 (10:13→21:14)
[2023-04-28] MEDS: Propranolol HCL LA 60 MG CAP.SA.24H 120 MG PO (10:13)
[2023-04-28] MEDS: OLANZapine 7.5 MG TABLET 15 MG PO ×2 (10:13→21:15)
[2023-04-28] MEDS: Omeprazole 20 MG CAPSULE.DR PO (10:14)
[2023-04-28] MEDS: Loratadine 10 MG TABLET PO (10:14)
[2023-04-28] MEDS: clonazePAM 1 MG TABLET 2 MG PO ×3 (10:14→21:16)
[2023-04-28] MEDS: OXcarbazepine 300 MG TABLET 600 MG PO ×2 (10:15→13:35)
[2023-04-28] MEDS: NaPROXEN 500 MG TABLET PO (10:15)
[2023-04-28] MEDS: Divalproex Sodium 500 MG TABLET.DR PO ×3 (10:15→21:15)
[2023-04-28] MEDS: Furosemide 40 MG TABLET PO ×2 (10:16→18:19)
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
[2023-04-28 17:17] VITALS: BP 134/56; PULSE 91; RESP 20; TEMP 36.2; O2SAT 97
[2023-04-28] MEDS: clomiPRAMINE HCl 25 MG CAPSULE 75 MG PO (21:13)
[2023-04-28] MEDS: Melatonin 3 MG TABLET PO (21:14)
[2023-04-28] MEDS: diphenhydrAMINE HCL 25 MG CAPSULE 75 MG PO (21:14)
[2023-04-28] MEDS: traZODone HCL 100 MG TABLET PO (21:15)
[2023-04-29 10:00] VITALS: BP 125/57; PULSE 95; RESP 14; TEMP 36.3; O2SAT 96
[2023-04-29] MEDS: Omeprazole 20 MG CAPSULE.DR PO (12:09)
[2023-04-29] MEDS: Furosemide 40 MG TABLET PO (12:09)
[2023-04-29] MEDS: Loratadine 10 MG TABLET PO (12:10)
[2023-04-29] MEDS: Propranolol HCL LA 60 MG CAP.SA.24H 120 MG PO (12:10)
[2023-04-29] MEDS: QUEtiapine Fumarate 300 MG TABLET PO ×3 (12:10→21:12)
[2023-04-29] MEDS: OXcarbazepine 300 MG TABLET 600 MG PO ×2 (12:10→14:54)
[2023-04-29] MEDS: Fluticasone Propionate Nasal 16 GM SPRAY 1 SPRAY NOSTRIL-B (12:15)
[2023-04-29] MEDS: polyethylene glycoL 3350 17 GM POWD.PACK PO ×2 (12:16→21:13)
[2023-04-29] MEDS: clonazePAM 1 MG TABLET 2 MG PO ×3 (12:16→21:12)
[2023-04-29] MEDS: Divalproex Sodium 500 MG TABLET.DR PO ×3 (12:20→21:12)
[2023-04-29] MEDS: OLANZapine 7.5 MG TABLET 15 MG PO ×2 (12:50→21:12)
[2023-04-29] MEDS: diazePAM 10 MG/2 ML CARTRIDGE IM (17:30)
[2023-04-29] MEDS: Ziprasidone Mesylate 20 MG VIAL IM (17:30)
[2023-04-29] MEDS: Midazolam HCl/PF 2 MG/2 ML VIAL 8 MG IM (17:56)
[2023-04-29 19:43] VITALS: RESP 16
[2023-04-29] MEDS: Melatonin 3 MG TABLET PO (21:12)
[2023-04-29] MEDS: clomiPRAMINE HCl 25 MG CAPSULE 75 MG PO (21:12)
[2023-04-29] MEDS: diphenhydrAMINE HCL 25 MG CAPSULE 75 MG PO (21:12)
[2023-04-29] MEDS: traZODone HCL 100 MG TABLET PO (21:12)
[2023-04-29] MEDS: Zolpidem Tartrate 5 MG TABLET PO (21:13)
[2023-04-30 09:15] VITALS: BP 109/55; PULSE 83; RESP 16; TEMP 36.2; O2SAT 93
[2023-04-30] MEDS: Fluticasone Propionate Nasal 16 GM SPRAY 1 SPRAY NOSTRIL-B (09:19)
[2023-04-30] MEDS: polyethylene glycoL 3350 17 GM POWD.PACK PO ×2 (09:20→20:45)
[2023-04-30] MEDS: OXcarbazepine 300 MG TABLET 600 MG PO ×2 (09:21→14:43)
[2023-04-30] MEDS: OLANZapine 7.5 MG TABLET 15 MG PO ×2 (09:21→20:45)
[2023-04-30] MEDS: Propranolol HCL LA 60 MG CAP.SA.24H 120 MG PO (09:21)
[2023-04-30] MEDS: Loratadine 10 MG TABLET PO (09:21)
[2023-04-30] MEDS: QUEtiapine Fumarate 300 MG TABLET PO ×3 (09:21→20:45)
[2023-04-30] MEDS: Furosemide 40 MG TABLET PO ×2 (09:21→18:30)
[2023-04-30] MEDS: clonazePAM 1 MG TABLET 2 MG PO ×3 (09:21→20:44)
[2023-04-30] MEDS: Divalproex Sodium 500 MG TABLET.DR PO ×3 (09:21→20:44)
[2023-04-30] MEDS: Omeprazole 20 MG CAPSULE.DR PO (09:21)
[2023-04-30] MEDS: Ziprasidone Mesylate 20 MG VIAL IM (12:14)
[2023-04-30] MEDS: diazePAM 10 MG/2 ML CARTRIDGE IM (12:15)
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
[2023-04-30] MEDS: clomiPRAMINE HCl 25 MG CAPSULE 75 MG PO (20:44)
[2023-04-30] MEDS: diphenhydrAMINE HCL 25 MG CAPSULE 75 MG PO (20:44)
[2023-04-30] MEDS: Melatonin 3 MG TABLET PO (20:45)
[2023-04-30] MEDS: traZODone HCL 100 MG TABLET PO (20:45)
[2023-04-30] MEDS: Zolpidem Tartrate 5 MG TABLET PO (20:45)
[2023-04-30 22:00] VITALS: BP 106/57; PULSE 82; TEMP 36.8; O2SAT 95
[2023-05-01] MEDS: Ziprasidone Mesylate 20 MG VIAL IM ×2 (09:10→23:48)
[2023-05-01] MEDS: diazePAM 10 MG/2 ML CARTRIDGE IM ×2 (09:10→23:48)
[2023-05-01 09:15] VITALS: BP 119/63; PULSE 99; RESP 16; TEMP 36.1; O2SAT 97
[2023-05-01] MEDS: polyethylene glycoL 3350 17 GM POWD.PACK PO ×2 (09:37→22:22)
[2023-05-01] MEDS: OXcarbazepine 300 MG TABLET 600 MG PO ×2 (09:37→17:18)
[2023-05-01] MEDS: Fluticasone Propionate Nasal 16 GM SPRAY 1 SPRAY NOSTRIL-B (09:37)
[2023-05-01] MEDS: clonazePAM 1 MG TABLET 2 MG PO ×3 (09:37→22:16)
[2023-05-01] MEDS: Divalproex Sodium 500 MG TABLET.DR PO ×3 (09:38→22:16)
[2023-05-01] MEDS: Loratadine 10 MG TABLET PO (09:38)
[2023-05-01] MEDS: QUEtiapine Fumarate 300 MG TABLET PO ×3 (09:38→22:14)
[2023-05-01] MEDS: Propranolol HCL LA 60 MG CAP.SA.24H 120 MG PO (09:38)
[2023-05-01] MEDS: Furosemide 40 MG TABLET PO ×2 (09:38→17:20)
[2023-05-01] MEDS: OLANZapine 7.5 MG TABLET 15 MG PO ×2 (09:38→22:18)
[2023-05-01] MEDS: Omeprazole 20 MG CAPSULE.DR PO (09:38)
[2023-05-01 17:15] VITALS: BP 98/51; PULSE 81; TEMP 36.4; O2SAT 96
[2023-05-01] MEDS: Zolpidem Tartrate 5 MG TABLET PO ×2 (22:14→23:25)
[2023-05-01] MEDS: traZODone HCL 100 MG TABLET PO (22:14)
[2023-05-01] MEDS: diphenhydrAMINE HCL 25 MG CAPSULE 75 MG PO (22:15)
[2023-05-01] MEDS: Melatonin 3 MG TABLET PO (22:16)
[2023-05-01] MEDS: clomiPRAMINE HCl 25 MG CAPSULE 75 MG PO (22:19)
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
[2023-05-02 07:00] VITALS: BMI 45.5
[2023-05-02 10:00] VITALS: BP 128/75; PULSE 86; RESP 20; TEMP 36.7; O2SAT 95
[2023-05-02] MEDS: Omeprazole 20 MG CAPSULE.DR PO (10:02)
[2023-05-02] MEDS: OXcarbazepine 300 MG TABLET 600 MG PO ×2 (10:02→15:13)
[2023-05-02] MEDS: polyethylene glycoL 3350 17 GM POWD.PACK PO ×2 (10:02→20:41)
[2023-05-02] MEDS: QUEtiapine Fumarate 300 MG TABLET PO ×3 (10:02→20:41)
[2023-05-02] MEDS: Propranolol HCL LA 60 MG CAP.SA.24H 120 MG PO (10:02)
[2023-05-02] MEDS: Furosemide 40 MG TABLET PO (10:02)
[2023-05-02] MEDS: Divalproex Sodium 500 MG TABLET.DR PO ×3 (10:03→20:41)
[2023-05-02] MEDS: clonazePAM 1 MG TABLET 2 MG PO ×3 (10:03→20:41)
[2023-05-02] MEDS: Loratadine 10 MG TABLET PO (10:03)
[2023-05-02] MEDS: OLANZapine 7.5 MG TABLET 15 MG PO ×2 (10:03→20:41)
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
[2023-05-02] MEDS: Zolpidem Tartrate 5 MG TABLET PO (20:40)
[2023-05-02] MEDS: clomiPRAMINE HCl 25 MG CAPSULE 75 MG PO (20:41)
[2023-05-02] MEDS: diphenhydrAMINE HCL 25 MG CAPSULE 75 MG PO (20:41)
[2023-05-02] MEDS: traZODone HCL 100 MG TABLET PO (20:41)
[2023-05-02] MEDS: Melatonin 3 MG TABLET PO (20:41)
[2023-05-02 21:29] VITALS: RESP 16
[2023-05-02] MEDS: Ziprasidone Mesylate 20 MG VIAL IM (22:11)
[2023-05-02] MEDS: diazePAM 10 MG/2 ML CARTRIDGE IM (22:11)
[2023-05-02] MEDS: Midazolam HCl/PF 2 MG/2 ML VIAL 4 MG IM (23:06)
--- NOTE | 2023-05-02 23:08 | PC.NURSE ---
pt asked for versed while feeling agitated. pt was given 4 mg of versed IM in both thighs. pt went to slept shortly after.
[2023-05-03 09:08] VITALS: BP 116/79; PULSE 84; RESP 16; TEMP 36.4; O2SAT 95
[2023-05-03] MEDS: Propranolol HCL LA 60 MG CAP.SA.24H 120 MG PO (09:43)
[2023-05-03] MEDS: Divalproex Sodium 500 MG TABLET.DR PO ×3 (09:43→20:40)
[2023-05-03] MEDS: Omeprazole 20 MG CAPSULE.DR PO (09:43)
[2023-05-03] MEDS: OXcarbazepine 300 MG TABLET 600 MG PO ×2 (09:43→14:31)
[2023-05-03] MEDS: Furosemide 40 MG TABLET PO ×2 (09:43→17:16)
[2023-05-03] MEDS: clonazePAM 1 MG TABLET 2 MG PO ×3 (09:43→20:39)
[2023-05-03] MEDS: QUEtiapine Fumarate 300 MG TABLET PO ×3 (09:43→20:40)
[2023-05-03] MEDS: polyethylene glycoL 3350 17 GM POWD.PACK PO ×2 (09:43→20:38)
[2023-05-03] MEDS: OLANZapine 7.5 MG TABLET 15 MG PO ×2 (09:43→20:39)
[2023-05-03] MEDS: diazePAM 10 MG/2 ML CARTRIDGE IM (10:10)
[2023-05-03] MEDS: Ziprasidone Mesylate 20 MG VIAL IM (10:10)
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
[2023-05-03 17:10] VITALS: BP 120/58; PULSE 87; TEMP 36.3
[2023-05-03] MEDS: Ziprasidone 20 MG CAPSULE PO (17:15)
[2023-05-03] MEDS: ALPRAZolam 0.5 MG TABLET PO (17:15)
[2023-05-03] MEDS: NaPROXEN 500 MG TABLET PO (17:38)
[2023-05-03] MEDS: Midazolam HCl/PF 2 MG/2 ML VIAL 4 MG IM (20:18)
[2023-05-03] MEDS: traZODone HCL 100 MG TABLET PO (20:39)
[2023-05-03] MEDS: Zolpidem Tartrate 5 MG TABLET PO (20:39)
[2023-05-03] MEDS: Melatonin 3 MG TABLET PO (20:39)
[2023-05-03] MEDS: clomiPRAMINE HCl 25 MG CAPSULE 75 MG PO (20:39)
[2023-05-03] MEDS: diphenhydrAMINE HCL 25 MG CAPSULE 75 MG PO (20:39)
[2023-05-04] MEDS: polyethylene glycoL 3350 17 GM POWD.PACK PO ×2 (09:30→20:30)
[2023-05-04] MEDS: OLANZapine 7.5 MG TABLET 15 MG PO ×2 (09:31→20:29)
[2023-05-04] MEDS: Omeprazole 20 MG CAPSULE.DR PO (09:31)
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
[2023-05-04] MEDS: Midazolam HCl/PF 2 MG/2 ML VIAL 4 MG IM (10:20)
[2023-05-04] MEDS: diazePAM 10 MG/2 ML CARTRIDGE IM ×2 (10:20→18:37)
[2023-05-04] MEDS: OLANZapine 10 MG VIAL 15 MG IM (10:32)
[2023-05-04 10:34] VITALS: RESP 18
[2023-05-04] MEDS: clonazePAM 1 MG TABLET 2 MG PO ×3 (10:50→20:29)
[2023-05-04] MEDS: Divalproex Sodium 500 MG TABLET.DR PO ×3 (10:52→20:29)
[2023-05-04] MEDS: OXcarbazepine 300 MG TABLET 600 MG PO ×2 (10:53→14:50)
[2023-05-04] MEDS: QUEtiapine Fumarate 300 MG TABLET PO ×3 (10:53→20:29)
[2023-05-04 11:00] VITALS: BP 134/64; PULSE 93; RESP 16; TEMP 36.4; O2SAT 96
[2023-05-04] MEDS: Propranolol HCL LA 60 MG CAP.SA.24H 120 MG PO (11:05)
[2023-05-04] MEDS: Furosemide 40 MG TABLET PO (11:05)
[2023-05-04] MEDS: Divalproex Sodium 250 MG TABLET.DR PO (11:07)
[2023-05-04] MEDS: Fluticasone Propionate Nasal 16 GM SPRAY 1 SPRAY NOSTRIL-B (11:10)
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
[2023-05-04] MEDS: Ziprasidone Mesylate 20 MG VIAL IM (18:34)
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
[2023-05-04] MEDS: Melatonin 3 MG TABLET PO (20:28)
[2023-05-04] MEDS: clomiPRAMINE HCl 25 MG CAPSULE 75 MG PO (20:29)
[2023-05-04] MEDS: traZODone HCL 100 MG TABLET PO (20:29)
[2023-05-04] MEDS: diphenhydrAMINE HCL 25 MG CAPSULE 75 MG PO (20:29)
[2023-05-04] MEDS: Zolpidem Tartrate 5 MG TABLET PO (20:49)
[2023-05-04] MEDS: Calcium Carbonate 750 MG TAB.CHEW PO (21:34)
[2023-05-04 21:50] VITALS: RESP 16
[2023-05-05 09:15] VITALS: BP 123/81; PULSE 85; RESP 16; TEMP 36.2; O2SAT 96
[2023-05-05] MEDS: QUEtiapine Fumarate 300 MG TABLET PO ×3 (09:19→20:41)
[2023-05-05] MEDS: polyethylene glycoL 3350 17 GM POWD.PACK PO ×2 (09:19→20:40)
[2023-05-05] MEDS: OXcarbazepine 300 MG TABLET 600 MG PO ×2 (09:19→14:04)
[2023-05-05] MEDS: clonazePAM 1 MG TABLET 2 MG PO ×3 (09:19→20:41)
[2023-05-05] MEDS: Omeprazole 20 MG CAPSULE.DR PO (09:19)
[2023-05-05] MEDS: OLANZapine 7.5 MG TABLET 15 MG PO ×2 (09:19→20:40)
[2023-05-05] MEDS: Divalproex Sodium 500 MG TABLET.DR PO ×3 (09:19→20:41)
[2023-05-05] MEDS: Furosemide 40 MG TABLET PO ×2 (09:19→17:14)
[2023-05-05] MEDS: Propranolol HCL LA 60 MG CAP.SA.24H 120 MG PO (09:19)
[2023-05-05] MEDS: Fluticasone Propionate Nasal 16 GM SPRAY 1 SPRAY NOSTRIL-B (09:20)
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
[2023-05-05] MEDS: NaPROXEN 500 MG TABLET PO (15:10)
[2023-05-05] MEDS: Acetaminophen 325 MG TABLET 650 MG PO (17:26)
[2023-05-05] MEDS: Ibuprofen 600 MG TABLET PO (17:26)
[2023-05-05 18:50] VITALS: BP 119/74; PULSE 87; RESP 16; TEMP 36.4; O2SAT 98
[2023-05-05] MEDS: Ziprasidone 20 MG CAPSULE PO (19:12)
[2023-05-05] MEDS: ALPRAZolam 0.5 MG TABLET PO (19:12)
--- NOTE | 2023-05-05 19:33 | PC.NURSE ---
PT IS TEARFUL, COMPLAINING OF SEVERE BACK PAIN RADIATING TO BOTH LEGS. PT REPORTS BACK SPASMS. PT RATES PAIN 10/10. IBUPROFEN AND TYLENOL INEFFECTIVE FOR PAIN MANAGEMENT. DR GIRALDO CONTACTED WHO REFERRED RN TO HOSPITALIST. DR RAMIREZ CONTACTED FOR HOSPITALIST CONSULT VIA [address].
--- NOTE | 2023-05-05 20:16 | HO.HSGERICON ---
History of Present Illness Data of Consult Service Date: 05/05/23 Primary Care Provider: Unknown Physician HPI 23-year-old female with past medical history of reactive attachment disorder, suicidal ideation, autism, PTSD, who is currently in [facility] for management of above-mentioned behavioral health issues is complaining of acute on chronic back pain with spasm. There was a stat consult placed for patient to be evaluated for back pain. On my exam patient is complaining of lumbar region back pain, that has been going on for a while , but has flared up recently, she reports spasm in her muscles, and pain radiating down her legs worse to the right side. denies any numbness tingling a weakness in her legs. She reports painful when she walks or bends. She denies any trauma or fall. All other review of systems otherwise negative Review of Systems Review of Systems: Yes all other systems are reviewed and are negative [facility] Medical History Amenorrhea CHARLES positive Autism Chronic restrictive lung disease Developmental disorder Dyspnea Has daytime drowsiness Homicidal behavior Peripheral edema PTSD (post-traumatic stress disorder) Suicidal behavior Family History Father No known health problems Mother No problems noted. Social History Household Members: Caregiver Household Members Other:: grandmother Housing: Apartment Do you presently have visiting nurse or other home services: No Alcohol intake: never Patient Tobacco Use Status: Never used Tobacco e-Cigarette/Vaping Use: Never Used service: No Sexual orientation: Straight/Heterosexual Cognitive needs: No Hearing needs: No Vision needs: No Meds Allergies Allergy/AdvReac Type Severity Reaction Status Date / Time chlorpromazine Allergy Severe Anaphylaxis Verified 03/26/23 08:56 [From Thorazine] lithium Allergy Hives Verified 03/26/23 08:56 lorazepam [From Ativan] AdvReac Intermediate Agitated, Verified 03/26/23 08:56 dysregulation haloperidol [From Haldol] AdvReac Agitated Verified 12/27/22 16:37 nut - unspecified AdvReac Anxiety Verified 03/26/23 08:56 Active Medications: Current Medications Acetaminophen (Acetaminophen 325 Mg Tablet) 650 mg PO Q6H PRN PRN Reason: Headache/Pain Mild Scale (1-3) Last Admin: 05/05/23 17:26 Dose: 650 mg Alprazolam (Alprazolam 0.5 Mg Tablet) 0.5 mg PO QID PRN PRN Reason: anxiety/restlessness Last Admin: 05/05/23 19:12 Dose: 0.5 mg Benzocaine (Throat Lozenge, Medicated Lozenge) 1 lozenge MUCOUS MEM Q2H PRN PRN Reason: Sore Throat Last Admin: 02/14/23 19:15 Dose: 1 lozenge Bisacodyl (Bisacodyl 10 Mg Supp.Rect) 10 mg [place] ONCE PRN PRN Reason: Constipation Bisacodyl (Bisacodyl 5 Mg Tablet.Dr) 5 mg PO DAILY PRN PRN Reason: Constipation Calcium Carbonate (Calcium Carbonate 750 Mg Tab.Chew) 750 mg PO Q4H PRN PRN Reason: gerd Last Admin: 05/04/23 21:34 Dose: 750 mg Clomipramine HCl (Clomipramine Hcl 25 Mg Capsule) 75 mg PO BEDTIME [facility] Last Admin: 05/04/23 20:29 Dose: 75 mg Clonazepam (Clonazepam 1 Mg Tablet) 2 mg PO TID [facility] Last Admin: 05/05/23 14:05 Dose: 2 mg Cyclobenzaprine HCl (Cyclobenzaprine Hcl 10 Mg Tablet) 10 mg PO TID PRN PRN Reason: back spasm Diazepam (Diazepam 10 Mg/2 Ml Cartridge) 10 mg IM BID PRN PRN Reason: agitation Last Admin: 05/04/23 18:37 Dose: 10 mg Diphenhydramine HCl (Diphenhydramine Hcl 25 Mg Capsule) 75 mg PO BEDTIME [facility] Last Admin: 05/04/23 20:29 Dose: 75 mg Divalproex Sodium (Divalproex Sodium 500 Mg Tablet.Dr) 500 mg PO TID [facility] Last Admin: 05/05/23 14:05 Dose: 500 mg Epinephrine (Epinephrine 1 Mg/Ml Vial) 0.3 mg IM ONCE PRN PRN Reason: anaphylaxis Fluticasone Propionate (Fluticasone Propionate Nasal 16 Gm [place]) 1 spray NOSTRIL-B DAILY [facility] Last Admin: 05/05/23 09:20 Dose: Not Given Fluticasone Propionate (Fluticasone Propionate Nasal 16 Gm [place]) 1 spray NOSTRIL-B DAILY PRN PRN Reason: continued allergic nasal congest Last Admin: 05/05/23 09:20 Dose: 1 spray Furosemide (Furosemide 40 Mg Tablet) 40 mg PO DAILY [facility]; Protocol Last Admin: 05/05/23 09:19 Dose: 40 mg Furosemide (Furosemide 40 Mg Tablet) 40 mg PO DAILY@1700 [facility]; Protocol Last Admin: 05/05/23 17:14 Dose: 40 mg Hydrocortisone (Hydrocortisone 1 % Cream 28.35 Gm Tube) 1 appl TOPICAL BID PRN; Protocol PRN Reason: rash/insect bite Ibuprofen (Ibuprofen 600 Mg Tablet) 600 mg PO Q6H PRN PRN Reason: mild pain Last Admin: 05/05/23 17:26 Dose: 600 mg Lidocaine HCl (Lidocaine 4 % Cream Kit) 1 appl TOPICAL ONCE PRN; Protocol PRN Reason: apply prior to blood draw Last Admin: 04/16/23 00:28 Dose: 1 appl Magnesium Hydroxide (Milk Of Magnesia 30 Ml Oral.Susp) 30 ml PO DAILY PRN PRN Reason: Constipation Melatonin (Melatonin 3 Mg Tablet) 3 mg PO BEDTIME [facility] Last Admin: 05/04/23 20:28 Dose: 3 mg Melatonin (Melatonin 3 Mg Tablet) 3 mg PO BEDTIME PRN PRN Reason: early waking/insomnia Last Admin: 04/24/23 22:11 Dose: 3 mg Naproxen (Naproxen 500 Mg Tablet) 500 mg PO Q12H PRN PRN Reason: Pain, Mild (Pain Scale 1-3) Last Admin: 05/05/23 15:10 Dose: 500 mg Patient Own Medication : Pataday 0.7% 1 each EYE-BOTH DAILY PRN PRN Reason: itch relief Last Admin: 05/05/23 09:20 Dose: 1 each Olanzapine (Olanzapine 7.5 Mg Tablet) 15 mg PO BID [facility] Last Admin: 05/05/23 09:19 Dose: 15 mg Omeprazole (Omeprazole 20 Mg Capsule.Dr) 20 mg PO DAILY [facility] Last Admin: 05/05/23 09:19 Dose: 20 mg Ondansetron HCl (Ondansetron Odt 4 Mg Tab.Rapdis) 4 mg TRANSLINGU Q6H PRN PRN Reason: nausea/vomiting Last Admin: 03/28/23 19:46 Dose: 4 mg Oxcarbazepine (Oxcarbazepine 300 Mg Tablet) 600 mg PO BID@0900,1400 [facility] Last Admin: 05/05/23 14:04 Dose: 600 mg Polyethylene Glycol (Polyethylene Glycol 3350 17 Gm Powd.Pack) 17 gm PO BID [facility] Last Admin: 05/05/23 09:19 Dose: 17 gm Polyethylene Glycol (Polyethylene Glycol 3350 17 Gm Powd.Pack) 17 gm PO QID [facility] Stop: 05/06/23 17:01 Propranolol HCl (Propranolol Hcl La 60 Mg Cap.Sa.24h) 120 mg PO DAILY [facility]; Protocol Last Admin: 05/05/23 09:19 Dose: 120 mg Psyllium Hydrophilic Mucilloid (Psyllium Seed 3.4 Gm Powd.Pack) 3.4 gm PO DAILY [facility] Last Admin: 05/05/23 09:20 Dose: Not Given Quetiapine Fumarate (Quetiapine Fumarate 300 Mg Tablet) 300 mg PO TID [facility] Last Admin: 05/05/23 14:05 Dose: 300 mg Sodium Biphosphate/Sodium Phosphate (Sodium Phosphate,[place]-Dibasic 133 Ml Enema) 133 ml [place] DAILY PRN PRN Reason: Constipation Last Admin: 03/16/23 14:59 Dose: 133 ml Trazodone HCl (Trazodone Hcl 100 Mg Tablet) 100 mg PO BEDTIME [facility] Last Admin: 05/04/23 20:29 Dose: 100 mg Ziprasidone (Ziprasidone 20 Mg Capsule) 20 mg PO BID PRN PRN Reason: agitation Last Admin: 05/05/23 19:12 Dose: 20 mg Ziprasidone (Ziprasidone Mesylate 20 Mg Vial) 20 mg IM BID PRN PRN Reason: only at PATIENTS request Last Admin: 05/04/23 18:34 Dose: 20 mg Zolpidem Tartrate (Zolpidem Tartrate 5 Mg Tablet) 5 mg PO BEDTIME PRN PRN Reason: Insomnia Last Admin: 05/01/23 23:25 Dose: 5 mg Zolpidem Tartrate (Zolpidem Tartrate 5 Mg Tablet) 5 mg PO BEDTIME [facility] Last Admin: 05/04/23 20:49 Dose: 5 mg Home Medications Medication Instructions Recorded Confirmed Last Taken Type diphenhydramine HCl 25 mg capsule 50 mg PO BEDTIME 11/30/22 12/27/22 12/15/22 22:00 History (Banophen) divalproex 500 mg tablet,extended 2,500 mg PO BEDTIME 11/30/22 12/27/22 12/15/22 22:00 History release 24 hr famotidine 20 mg tablet 1 tab PO BEDTIME 11/30/22 12/27/22 12/15/22 22:00 History melatonin 5 mg tablet 1 tab PO BEDTIME PRN insomnia 11/30/22 12/27/22 12/15/22 22:00 History multivitamin (Daily-Toshia tablet) 1 tab PO BEDTIME 11/30/22 12/27/22 12/15/22 22:00 History naproxen 500 mg tablet 1 tab PO Q12H PRN mild pain 11/30/22 12/27/22 12/16/22 History olanzapine 10 mg tablet 2 tab PO BEDTIME 11/30/22 12/27/22 12/15/22 22:00 History sennosides 8.6 mg-docusate sodium 1 tab PO BID 11/30/22 12/27/22 12/15/22 22:00 History 50 mg tablet (Senna Plus) trazodone 100 mg tablet 1 tab PO BEDTIME 11/30/22 12/27/22 12/15/22 22:00 History trazodone 50 mg tablet 1 tab PO BEDTIME PRN insomnia 11/30/22 12/27/22 12/15/22 22:00 History ziprasidone HCl 20 mg capsule 20 mg PO BID PRN Agitation 11/30/22 12/27/22 12/16/22 History loratadine 10 mg tablet 1 tab PO DAILY PRN congestion 12/27/22 12/27/22 Unknown History Results Labs 03/17/23 07:36 03/22/23 12:31 Assessment and Plan (1) Back pain: Status: Acute (2) Muscle spasm: Status: Acute Plan 23-year-old female past medical history of autism PTSD, suicidal ideation currently admitted [facility] for the mentioned reasons, is now complaining of back pain # acute on chronic back pain - likely musculoskeletal versus sciatica - no neurological deficits - will place of Flexeril, lidocaine patch, obtain x-ray of the lumbar region - if pain persists, consider orthopedic evaluation Thank you for allowing dissipated patient care, will sign off at this time Time Spent With Patient Time: Total time managing care of this patient today ____ minutes. Physical Exam Vital Signs: Last Vital Signs Temp 97.6 F 05/05/23 18:50 Pulse 87 05/05/23 18:50 Resp 16 05/05/23 18:50 BP 119/74 05/05/23 18:50 Pulse Ox 98 05/05/23 18:50 O2 Del Method Room Air 05/05/23 18:50 BMI result Body Mass Index 45.5 Const Other: Patient awake alert, cooperative Obese Resp Other: Normal respiratory rate, effort GI Other: Abdomen normal on inspection Neuro Other: Strength 5/5 in all extremities, but does have guarding on lifting her lower extremities due to increased pain Cranial nerves: Yes CN's II-XII intact bilaterally
[2023-05-05] MEDS: Melatonin 3 MG TABLET PO ×2 (20:41)
[2023-05-05] MEDS: Zolpidem Tartrate 5 MG TABLET PO ×2 (20:41)
[2023-05-05] MEDS: clomiPRAMINE HCl 25 MG CAPSULE 75 MG PO (20:41)
[2023-05-05] MEDS: diphenhydrAMINE HCL 25 MG CAPSULE 75 MG PO (20:41)
[2023-05-05] MEDS: traZODone HCL 100 MG TABLET PO (20:41)
[2023-05-05] MEDS: bisacodyL 5 MG TABLET.DR PO (20:41)
[2023-05-05] MEDS: Lidocaine 4 % Patch ADH..PATCH 1 PATCH TRANSDERMA (20:59)
[2023-05-06] MEDS: Cyclobenzaprine HCl 10 MG TABLET PO ×3 (04:50→21:15)
[2023-05-06] MEDS: Acetaminophen 325 MG TABLET 650 MG PO ×2 (04:50→14:27)
[2023-05-06 10:00] VITALS: BP 124/72; PULSE 78; RESP 16; TEMP 36.8; O2SAT 95
[2023-05-06] MEDS: Midazolam HCl/PF 2 MG/2 ML VIAL 4 MG IM (10:30)
[2023-05-06] MEDS: Propranolol HCL LA 60 MG CAP.SA.24H 120 MG PO (11:08)
[2023-05-06] MEDS: Divalproex Sodium 500 MG TABLET.DR PO ×3 (11:08→21:21)
[2023-05-06] MEDS: Omeprazole 20 MG CAPSULE.DR PO (11:08)
[2023-05-06] MEDS: Furosemide 40 MG TABLET PO ×2 (11:08→17:35)
[2023-05-06] MEDS: OXcarbazepine 300 MG TABLET 600 MG PO ×2 (11:09→14:28)
[2023-05-06] MEDS: OLANZapine 7.5 MG TABLET 15 MG PO ×2 (11:09→21:21)
[2023-05-06] MEDS: QUEtiapine Fumarate 300 MG TABLET PO ×3 (11:09→21:20)
[2023-05-06] MEDS: clonazePAM 1 MG TABLET 2 MG PO ×3 (11:09→21:21)
[2023-05-06] MEDS: polyethylene glycoL 3350 17 GM POWD.PACK PO (11:24)
[2023-05-06] MEDS: Lidocaine 4 % Patch ADH..PATCH 1 PATCH TRANSDERMA ×2 (11:26→20:56)
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
[2023-05-06 16:14] VITALS: BP 106/52; PULSE 87; RESP 20; TEMP 36.6; O2SAT 95
[2023-05-06] MEDS: NaPROXEN 500 MG TABLET PO (21:15)
[2023-05-06] MEDS: clomiPRAMINE HCl 25 MG CAPSULE 75 MG PO (21:20)
[2023-05-06] MEDS: diphenhydrAMINE HCL 25 MG CAPSULE 75 MG PO (21:20)
[2023-05-06] MEDS: Melatonin 3 MG TABLET PO (21:20)
[2023-05-06] MEDS: Zolpidem Tartrate 5 MG TABLET PO (21:21)
[2023-05-06] MEDS: traZODone HCL 100 MG TABLET PO (21:21)
[2023-05-07] MEDS: Calcium Carbonate 750 MG TAB.CHEW PO (05:57)
[2023-05-07 10:00] VITALS: BP 119/68; PULSE 91; RESP 18; TEMP 36.7; O2SAT 98
[2023-05-07] MEDS: Fluticasone Propionate Nasal 16 GM SPRAY 1 SPRAY NOSTRIL-B (11:19)
[2023-05-07] MEDS: clonazePAM 1 MG TABLET 2 MG PO ×3 (11:20→21:25)
[2023-05-07] MEDS: OLANZapine 7.5 MG TABLET 15 MG PO ×2 (11:20→21:25)
[2023-05-07] MEDS: OXcarbazepine 300 MG TABLET 600 MG PO ×2 (11:21→13:01)
[2023-05-07] MEDS: Propranolol HCL LA 60 MG CAP.SA.24H 120 MG PO (11:21)
[2023-05-07] MEDS: Omeprazole 20 MG CAPSULE.DR PO (11:22)
[2023-05-07] MEDS: Divalproex Sodium 500 MG TABLET.DR PO ×3 (11:22→21:25)
[2023-05-07] MEDS: Furosemide 40 MG TABLET PO ×2 (11:22→16:41)
[2023-05-07] MEDS: QUEtiapine Fumarate 300 MG TABLET PO ×3 (11:22→21:25)
[2023-05-07] MEDS: Lidocaine 4 % Patch ADH..PATCH 1 PATCH TRANSDERMA ×2 (11:23→21:22)
[2023-05-07] MEDS: polyethylene glycoL 3350 17 GM POWD.PACK PO ×2 (11:28→21:23)
[2023-05-07] MEDS: Cyclobenzaprine HCl 10 MG TABLET PO (13:01)
--- NOTE | 2023-05-07 14:11 | PM.EVENT ---
Event Note Date of Service: 05/07/23 Event Note: Pt reporting chronic thoracic back pain to me while on the unit. States she was diagnosed with scoliosis years ago but feels pain is worsening. She states she occasionally experiences radiation to the legs bilaterally which makes it hard to shower and stand at times. Does not localize any pain in the lumbar spine. She reports occasional spasm in the thoracic back as well. States while hospitalized in [place], she was seen by physical therapy to help with the pain. Was seen by my colleague several days ago with negative xray of the lumbar spine. Today, xray of the thoracic spine obtained showing mild kyphoscoliosis, no fractures, and disc spaces are well maintained. She states she does not always wear a bra thinking this will exacerbate pain. However, she should be wearing supportive undergarments to help facilitate appropriate posture, preventing rounding of the shoulders which places increased stress on the thoracic spine. Can continue naproxen BID prn and will change flexeril to tizanidine 4mg TID prn. Will request physical therapy to see patient for exercise recommendations. Time Spent With Patient Time: Total time managing care of this patient today ____ minutes.
[2023-05-07 17:00] VITALS: BP 100/59; PULSE 84; RESP 16; TEMP 36.2; O2SAT 98
--- NOTE | 2023-05-07 17:47 | HO.PSYCHPN ---
Subjective Subjective Date of Service: 05/07/23 Reason For Visit: Mood Dysregulation Diagnostics Vital Signs (24Hr): Vital Signs - 24 hr 05/07/23 10:00 05/07/23 17:00 Temperature 98.0 F 97.1 F Pulse Rate 91 84 Respiratory Rate 18 16 Blood Pressure 119/68 100/59 L Pulse Oximetry 98 98 Oxygen Delivery Method Room Air Room Air BMI result Body Mass Index 45.5 Labs 03/17/23 07:36 03/22/23 12:31 Imaging Radiology Impressions: ITS Impressions Hand X-Ray 01/18/23 23:35 IMPRESSION: No acute fracture or dislocation of either hand. Hand X-Ray 01/18/23 23:35 IMPRESSION: No acute fracture or dislocation of either hand. Forearm X-Ray 02/04/23 21:57 IMPRESSION: Normal left forearm. Normal left wrist with scaphoid views. Wrist X-Ray 02/04/23 21:57 IMPRESSION: Normal left forearm. Normal left wrist with scaphoid views. Foot X-Ray 02/10/23 18:42 IMPRESSION: Significant soft tissue swelling over the dorsum of the foot. Toes are positioned in flexion throughout all images and are overlapping limiting assessment. No acute fracture or dislocation identified however given extensive soft tissue swelling recommend dedicated radiographs of the toe of interest to ensure appropriate visualization. Chest CT 02/14/23 14:37 IMPRESSION: * No acute pulmonary disease. * Small sliding-type hiatal hernia is present. * No radiopaque foreign bodies are identified within the lumen of the esophagus or visualized stomach. Lumbar Spine X-Ray 03/02/23 13:00 IMPRESSION: Limited but unremarkable exam. Abdomen X-Ray 03/16/23 10:09 IMPRESSION: Moderate amount of air and stool in the colon. No evidence of obstruction Chest X-Ray 04/26/23 12:24 IMPRESSION: * There is a focus of discoid atelectasis in the lingula. * No evidence of pneumonia. Lumbar Spine X-Ray 05/05/23 20:20 IMPRESSION: 1. No acute osseous abnormality. 2. Ebqgbeym-[id number] stool burden, consistent with constipation. Thoracic Spine X-Ray 05/07/23 12:49 IMPRESSION: No acute abnormality. Mild kyphoscoliosis of the thoracic spine. Medications Medications Current Medications Acetaminophen (Acetaminophen 325 Mg Tablet) 650 mg PO Q6H PRN PRN Reason: Headache/Pain Mild Scale (1-3) Last Admin: 05/06/23 14:27 Dose: 650 mg Alprazolam (Alprazolam 0.5 Mg Tablet) 0.5 mg PO QID PRN PRN Reason: anxiety/restlessness Last Admin: 05/05/23 19:12 Dose: 0.5 mg Benzocaine (Throat Lozenge, Medicated Lozenge) 1 lozenge MUCOUS MEM Q2H PRN PRN Reason: Sore Throat Last Admin: 02/14/23 19:15 Dose: 1 lozenge Bisacodyl (Bisacodyl 10 Mg Supp.Rect) 10 mg LA ONCE PRN PRN Reason: Constipation Bisacodyl (Bisacodyl 5 Mg Tablet.Dr) 5 mg PO DAILY PRN PRN Reason: Constipation Last Admin: 05/05/23 20:41 Dose: 5 mg Calcium Carbonate (Calcium Carbonate 750 Mg Tab.Chew) 750 mg PO Q4H PRN PRN Reason: gerd Last Admin: 05/07/23 05:57 Dose: 750 mg Clomipramine HCl (Clomipramine Hcl 25 Mg Capsule) 75 mg PO BEDTIME [facility] Last Admin: 05/06/23 21:20 Dose: 75 mg Clonazepam (Clonazepam 1 Mg Tablet) 2 mg PO TID [facility] Last Admin: 05/07/23 14:13 Dose: 2 mg Diazepam (Diazepam 10 Mg/2 Ml Cartridge) 10 mg IM BID PRN PRN Reason: agitation Last Admin: 05/04/23 18:37 Dose: 10 mg Diphenhydramine HCl (Diphenhydramine Hcl 25 Mg Capsule) 75 mg PO BEDTIME [facility] Last Admin: 05/06/23 21:20 Dose: 75 mg Divalproex Sodium (Divalproex Sodium 500 Mg Tablet.Dr) 500 mg PO TID [facility] Last Admin: 05/07/23 14:13 Dose: 500 mg Epinephrine (Epinephrine 1 Mg/Ml Vial) 0.3 mg IM ONCE PRN PRN Reason: anaphylaxis Fluticasone Propionate (Fluticasone Propionate Nasal 16 Gm [place]) 1 spray NOSTRIL-B DAILY [facility] Last Admin: 05/07/23 11:29 Dose: Not Given Fluticasone Propionate (Fluticasone Propionate Nasal 16 Gm [place]) 1 spray NOSTRIL-B DAILY PRN PRN Reason: continued allergic nasal congest Last Admin: 05/07/23 11:19 Dose: 1 spray Furosemide (Furosemide 40 Mg Tablet) 40 mg PO DAILY [facility]; Protocol Last Admin: 05/07/23 11:22 Dose: 40 mg Furosemide (Furosemide 40 Mg Tablet) 40 mg PO DAILY@1700 [facility]; Protocol Last Admin: 05/07/23 16:41 Dose: 40 mg Hydrocortisone (Hydrocortisone 1 % Cream 28.35 Gm Tube) 1 appl TOPICAL BID PRN; Protocol PRN Reason: rash/insect bite Ibuprofen (Ibuprofen 600 Mg Tablet) 600 mg PO Q6H PRN PRN Reason: mild pain Last Admin: 05/05/23 17:26 Dose: 600 mg Lidocaine (Lidocaine 4 % Patch Adh..Patch) 1 patch TRANSDERMA DAILY [facility]; Protocol Last Admin: 05/07/23 11:23 Dose: 1 patch Lidocaine HCl (Lidocaine 4 % Cream Kit) 1 appl TOPICAL ONCE PRN; Protocol PRN Reason: apply prior to blood draw Last Admin: 04/16/23 00:28 Dose: 1 appl Magnesium Hydroxide (Milk Of Magnesia 30 Ml Oral.Susp) 30 ml PO DAILY PRN PRN Reason: Constipation Melatonin (Melatonin 3 Mg Tablet) 3 mg PO BEDTIME [facility] Last Admin: 05/06/23 21:20 Dose: 3 mg Melatonin (Melatonin 3 Mg Tablet) 3 mg PO BEDTIME PRN PRN Reason: early waking/insomnia Last Admin: 05/05/23 20:41 Dose: 3 mg Naproxen (Naproxen 500 Mg Tablet) 500 mg PO Q12H PRN PRN Reason: Pain, Mild (Pain Scale 1-3) Last Admin: 05/06/23 21:15 Dose: 500 mg Patient Own Medication : Pataday 0.7% 1 each EYE-BOTH DAILY PRN PRN Reason: itch relief Last Admin: 05/07/23 11:19 Dose: 1 each Olanzapine (Olanzapine 7.5 Mg Tablet) 15 mg PO BID [facility] Last Admin: 05/07/23 11:20 Dose: 15 mg Omeprazole (Omeprazole 20 Mg Capsule.Dr) 20 mg PO DAILY [facility] Last Admin: 05/07/23 11:22 Dose: 20 mg Ondansetron HCl (Ondansetron Odt 4 Mg Tab.Rapdis) 4 mg TRANSLINGU Q6H PRN PRN Reason: nausea/vomiting Last Admin: 03/28/23 19:46 Dose: 4 mg Oxcarbazepine (Oxcarbazepine 300 Mg Tablet) 600 mg PO BID@0900,1400 [facility] Last Admin: 05/07/23 13:01 Dose: 600 mg Polyethylene Glycol (Polyethylene Glycol 3350 17 Gm Powd.Pack) 17 gm PO BID [facility] Last Admin: 05/07/23 11:28 Dose: 17 gm Propranolol HCl (Propranolol Hcl La 60 Mg Cap.Sa.24h) 120 mg PO DAILY [facility]; Protocol Last Admin: 05/07/23 11:21 Dose: 120 mg Psyllium Hydrophilic Mucilloid (Psyllium Seed 3.4 Gm Powd.Pack) 3.4 gm PO DAILY [facility] Last Admin: 05/07/23 11:17 Dose: Not Given Quetiapine Fumarate (Quetiapine Fumarate 300 Mg Tablet) 300 mg PO TID [facility] Last Admin: 05/07/23 14:13 Dose: 300 mg Senna (Senna [place] Extract Oral Syrup 15 Ml Syrup) 15 ml PO BEDTIME [facility] Last Admin: 05/06/23 21:30 Dose: Not Given Sodium Biphosphate/Sodium Phosphate (Sodium Phosphate,[place]-Dibasic 133 Ml Enema) 133 ml LA DAILY PRN PRN Reason: Constipation Last Admin: 03/16/23 14:59 Dose: 133 ml Tizanidine HCl (Tizanidine Hcl 4 Mg Tablet) 4 mg PO TID PRN PRN Reason: back spasm Trazodone HCl (Trazodone Hcl 100 Mg Tablet) 100 mg PO BEDTIME [facility] Last Admin: 05/06/23 21:21 Dose: 100 mg Ziprasidone (Ziprasidone 20 Mg Capsule) 20 mg PO BID PRN PRN Reason: agitation Last Admin: 05/05/23 19:12 Dose: 20 mg Ziprasidone (Ziprasidone Mesylate 20 Mg Vial) 20 mg IM BID PRN PRN Reason: only at PATIENTS request Last Admin: 05/04/23 18:34 Dose: 20 mg Zolpidem Tartrate (Zolpidem Tartrate 5 Mg Tablet) 5 mg PO BEDTIME PRN PRN Reason: Insomnia Last Admin: 05/05/23 20:41 Dose: 5 mg Zolpidem Tartrate (Zolpidem Tartrate 5 Mg Tablet) 5 mg PO BEDTIME [facility] Last Admin: 05/06/23 21:21 Dose: 5 mg Allergies Allergies Allergy/AdvReac Type Severity Reaction Status Date / Time chlorpromazine Allergy Severe Anaphylaxis Verified 03/26/23 08:56 [From Thorazine] lithium Allergy Hives Verified 03/26/23 08:56 lorazepam [From Ativan] AdvReac Intermediate Agitated, Verified 03/26/23 08:56 dysregulation haloperidol [From Haldol] AdvReac Agitated Verified 12/27/22 16:37 nut - unspecified AdvReac Anxiety Verified 03/26/23 08:56 Assessment & Plan Assessment & Plan (1) Back pain: Status: Acute Code(s): M54.9 - Dorsalgia, unspecified (2) Muscle spasm: Status: Acute Code(s): M62.838 - Other muscle spasm Plan Patient remains in behavioral control; Continue current treatment plan Hospitalist VICTOR MANUEL saw patient regarding lower back pain: See comments below Pt reporting chronic thoracic back pain to me while on the unit. States she was diagnosed with scoliosis years ago but feels pain is worsening. She states she occasionally experiences radiation to the legs bilaterally which makes it hard to shower and stand at times. Does not localize any pain in the lumbar spine. She reports occasional spasm in the thoracic back as well. States while hospitalized in [place], she was seen by physical therapy to help with the pain. Was seen by my colleague several days ago with negative xray of the lumbar spine. Today, xray of the thoracic spine obtained showing mild kyphoscoliosis, no fractures, and disc spaces are well maintained. She states she does not always wear a bra thinking this will exacerbate pain. However, she should be wearing supportive undergarments to help facilitate appropriate posture, preventing rounding of the shoulders which places increased stress on the thoracic spine. Can continue naproxen BID prn and will change flexeril to tizanidine 4mg TID prn. Will request physical therapy to see patient for exercise recommendations. Patient educated on: diagnosis, medication risk/benefits and medical condition Informed Consent: understands Reason for continued inpatient stay Substantial Risk for: harm to self, harm to others and inability to function Time Spent With Patient Time: Total time managing care of this patient today ____ minutes.
[2023-05-07] MEDS: NaPROXEN 500 MG TABLET PO (17:58)
[2023-05-07] MEDS: TiZANidine HCL 4 MG TABLET PO (17:59)
[2023-05-07] MEDS: Acetaminophen 325 MG TABLET 650 MG PO (19:24)
[2023-05-07] MEDS: diphenhydrAMINE HCL 25 MG CAPSULE 75 MG PO (21:25)
[2023-05-07] MEDS: clomiPRAMINE HCl 25 MG CAPSULE 75 MG PO (21:25)
[2023-05-07] MEDS: traZODone HCL 100 MG TABLET PO (21:25)
[2023-05-07] MEDS: Zolpidem Tartrate 5 MG TABLET PO (21:25)
[2023-05-07] MEDS: Ibuprofen 600 MG TABLET PO (21:26)
[2023-05-07] MEDS: Melatonin 3 MG TABLET PO (21:26)
[2023-05-08 08:00] VITALS: BP 128/63; PULSE 93; RESP 16; TEMP 36.1; O2SAT 97
[2023-05-08] MEDS: polyethylene glycoL 3350 17 GM POWD.PACK PO ×2 (08:03→19:56)
[2023-05-08] MEDS: clonazePAM 1 MG TABLET 2 MG PO ×3 (08:03→19:55)
[2023-05-08] MEDS: Fluticasone Propionate Nasal 16 GM SPRAY 1 SPRAY NOSTRIL-B (08:03)
[2023-05-08] MEDS: Lidocaine 4 % Patch ADH..PATCH 1 PATCH TRANSDERMA (08:03)
[2023-05-08] MEDS: Divalproex Sodium 500 MG TABLET.DR PO ×3 (08:04→19:56)
[2023-05-08] MEDS: OXcarbazepine 300 MG TABLET 600 MG PO ×2 (08:04→14:24)
[2023-05-08] MEDS: Propranolol HCL LA 60 MG CAP.SA.24H 120 MG PO (08:04)
[2023-05-08] MEDS: QUEtiapine Fumarate 300 MG TABLET PO ×3 (08:04→19:55)
[2023-05-08] MEDS: Omeprazole 20 MG CAPSULE.DR PO (08:04)
[2023-05-08] MEDS: Furosemide 40 MG TABLET PO ×2 (08:04→16:06)
[2023-05-08] MEDS: OLANZapine 7.5 MG TABLET 15 MG PO ×2 (08:04→19:55)
--- NOTE | 2023-05-08 15:32 | PC.NURSE ---
pt had visit from alison today. Security notified nurse that alison was on the unit w/ her purse and was rude to staff saying you don;t know what the hell you're doing and waving her hand in a dismissive manor. Charge nurse approached alison to explain that purses and cell phones are not allowed on the unit and explained the visiting policy since her appt was not scheduled in the visitor sign-up book. It was also discussed that its to be expected that visitors will treat all staff and patients w/ respect. Alison denied being rude to anyone but was still understanding of the conversation. Once the conversation was over the pt said she didn't want to visit and instead wanted to have lunch in the kitchen. Alison said ok, it was no problem aND was escorted to the door. Once at the door she stated how she was frustrated she could not get medical records as she just wants access to the nurse notes . She continued to state that she didn't understand why staff was pressing charges it should be expected w/ the job . To reiterate what the visitor said she was asked, SO we should come to work and expect to be assaulted to which alison responded, well yeah, in this line of work . 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 twan yeah . At that point the charge nurse told alison her visit was over, and the nurse had nothing further to say and asked the pts visitor to leave the unit while holding the door open. visitor (alsion) walked thru and door was closed behind her.
[2023-05-08 16:02] VITALS: BP 116/67; PULSE 86; TEMP 36.6
--- NOTE | 2023-05-08 17:50 | P.PNPSI_ITS ---
Subjective Subjective Date of Service: 05/08/23 Reason For Visit: Mood Dysregulation Diagnostics Vital Signs (24Hr): Vital Signs - 24 hr 05/08/23 08:00 05/08/23 16:02 Temperature 96.9 F 97.9 F Pulse Rate 93 86 Respiratory Rate 16 Blood Pressure 128/63 116/67 Pulse Oximetry 97 Oxygen Delivery Method Room Air BMI result Body Mass Index 45.5 Labs 03/17/23 07:36 03/22/23 12:31 Imaging Radiology Impressions: ITS Impressions Hand X-Ray 01/18/23 23:35 IMPRESSION: No acute fracture or dislocation of either hand. Hand X-Ray 01/18/23 23:35 IMPRESSION: No acute fracture or dislocation of either hand. Forearm X-Ray 02/04/23 21:57 IMPRESSION: Normal left forearm. Normal left wrist with scaphoid views. Wrist X-Ray 02/04/23 21:57 IMPRESSION: Normal left forearm. Normal left wrist with scaphoid views. Foot X-Ray 02/10/23 18:42 IMPRESSION: Significant soft tissue swelling over the dorsum of the foot. Toes are positioned in flexion throughout all images and are overlapping limiting assessment. No acute fracture or dislocation identified however given extensive soft tissue swelling recommend dedicated radiographs of the toe of interest to ensure appropriate visualization. Chest CT 02/14/23 14:37 IMPRESSION: * No acute pulmonary disease. * Small sliding-type hiatal hernia is present. * No radiopaque foreign bodies are identified within the lumen of the esophagus or visualized stomach. Lumbar Spine X-Ray 03/02/23 13:00 IMPRESSION: Limited but unremarkable exam. Abdomen X-Ray 03/16/23 10:09 IMPRESSION: Moderate amount of air and stool in the colon. No evidence of obstruction Chest X-Ray 04/26/23 12:24 IMPRESSION: * There is a focus of discoid atelectasis in the lingula. * No evidence of pneumonia. Lumbar Spine X-Ray 05/05/23 20:20 IMPRESSION: 1. No acute osseous abnormality. 2. Wuixbdyq-ku-jlitqg stool burden, consistent with constipation. Thoracic Spine X-Ray 05/07/23 12:49 IMPRESSION: No acute abnormality. Mild kyphoscoliosis of the thoracic spine. Medications Medications Current Medications Acetaminophen (Acetaminophen 325 Mg Tablet) 650 mg PO Q6H PRN PRN Reason: Headache/Pain Mild Scale (1-3) Last Admin: 05/07/23 19:24 Dose: 650 mg Alprazolam (Alprazolam 0.5 Mg Tablet) 0.5 mg PO QID PRN PRN Reason: anxiety/restlessness Last Admin: 05/05/23 19:12 Dose: 0.5 mg Benzocaine (Throat Lozenge, Medicated Lozenge) 1 lozenge MUCOUS MEM Q2H PRN PRN Reason: Sore Throat Last Admin: 02/14/23 19:15 Dose: 1 lozenge Bisacodyl (Bisacodyl 10 Mg Supp.Rect) 10 mg NC ONCE PRN PRN Reason: Constipation Bisacodyl (Bisacodyl 5 Mg Tablet.Dr) 5 mg PO DAILY PRN PRN Reason: Constipation Last Admin: 05/05/23 20:41 Dose: 5 mg Calcium Carbonate (Calcium Carbonate 750 Mg Tab.Chew) 750 mg PO Q4H PRN PRN Reason: gerd Last Admin: 05/07/23 05:57 Dose: 750 mg Clomipramine HCl (Clomipramine Hcl 25 Mg Capsule) 75 mg PO BEDTIME [facility] Last Admin: 05/07/23 21:25 Dose: 75 mg Clonazepam (Clonazepam 1 Mg Tablet) 2 mg PO TID [facility] Last Admin: 05/08/23 14:25 Dose: 2 mg Diazepam (Diazepam 10 Mg/2 Ml Cartridge) 10 mg IM BID PRN PRN Reason: agitation Last Admin: 05/04/23 18:37 Dose: 10 mg Diphenhydramine HCl (Diphenhydramine Hcl 25 Mg Capsule) 75 mg PO BEDTIME [facility] Last Admin: 05/07/23 21:25 Dose: 75 mg Divalproex Sodium (Divalproex Sodium 500 Mg Tablet.Dr) 500 mg PO TID [facility] Last Admin: 05/08/23 14:23 Dose: 500 mg Epinephrine (Epinephrine 1 Mg/Ml Vial) 0.3 mg IM ONCE PRN PRN Reason: anaphylaxis Fluticasone Propionate (Fluticasone Propionate Nasal 16 Gm [place]) 1 spray NOSTRIL-B DAILY PRN PRN Reason: continued allergic nasal congest Last Admin: 05/08/23 08:03 Dose: 1 spray Furosemide (Furosemide 40 Mg Tablet) 40 mg PO DAILY [facility]; Protocol Last Admin: 05/08/23 08:04 Dose: 40 mg Furosemide (Furosemide 40 Mg Tablet) 40 mg PO DAILY@1700 [facility]; Protocol Last Admin: 05/08/23 16:06 Dose: 40 mg Hydrocortisone (Hydrocortisone 1 % Cream 28.35 Gm Tube) 1 appl TOPICAL BID PRN; Protocol PRN Reason: rash/insect bite Lidocaine (Lidocaine 4 % Patch Adh..Patch) 1 patch TRANSDERMA DAILY [facility]; Protocol Last Admin: 05/08/23 08:03 Dose: 1 patch Lidocaine HCl (Lidocaine 4 % Cream Kit) 1 appl TOPICAL ONCE PRN; Protocol PRN Reason: apply prior to blood draw Last Admin: 04/16/23 00:28 Dose: 1 appl Magnesium Hydroxide (Milk Of Magnesia 30 Ml Oral.Susp) 30 ml PO DAILY PRN PRN Reason: Constipation Melatonin (Melatonin 3 Mg Tablet) 3 mg PO BEDTIME [facility] Last Admin: 05/07/23 21:26 Dose: 3 mg Naproxen (Naproxen 500 Mg Tablet) 500 mg PO Q12H PRN PRN Reason: Pain, Mild (Pain Scale 1-3) Last Admin: 05/07/23 17:58 Dose: 500 mg Patient Own Medication : Pataday 0.7% 1 each EYE-BOTH DAILY PRN PRN Reason: itch relief Last Admin: 05/08/23 08:03 Dose: 1 each Olanzapine (Olanzapine 7.5 Mg Tablet) 15 mg PO BID [facility] Last Admin: 05/08/23 08:04 Dose: 15 mg Omeprazole (Omeprazole 20 Mg Capsule.Dr) 20 mg PO DAILY [facility] Last Admin: 05/08/23 08:04 Dose: 20 mg Ondansetron HCl (Ondansetron Odt 4 Mg Tab.Rapdis) 4 mg TRANSLINGU Q6H PRN PRN Reason: nausea/vomiting Last Admin: 03/28/23 19:46 Dose: 4 mg Oxcarbazepine (Oxcarbazepine 300 Mg Tablet) 600 mg PO BID@0900,1400 [facility] Last Admin: 05/08/23 14:24 Dose: 600 mg Polyethylene Glycol (Polyethylene Glycol 3350 17 Gm Powd.Pack) 17 gm PO BID [facility] Last Admin: 05/08/23 08:03 Dose: 17 gm Propranolol HCl (Propranolol Hcl La 60 Mg Cap.Sa.24h) 120 mg PO DAILY [facility]; Protocol Last Admin: 05/08/23 08:04 Dose: 120 mg Psyllium Hydrophilic Mucilloid (Psyllium Seed 3.4 Gm Powd.Pack) 3.4 gm PO DAILY [facility] Last Admin: 05/08/23 08:41 Dose: Not Given Quetiapine Fumarate (Quetiapine Fumarate 300 Mg Tablet) 300 mg PO TID [facility] Last Admin: 05/08/23 14:25 Dose: 300 mg Senna (Senna [place] Extract Oral Syrup 15 Ml Syrup) 15 ml PO BEDTIME [facility] Last Admin: 05/07/23 21:33 Dose: Not Given Sodium Biphosphate/Sodium Phosphate (Sodium Phosphate,[place]-Dibasic 133 Ml Enema) 133 ml NC DAILY PRN PRN Reason: Constipation Last Admin: 03/16/23 14:59 Dose: 133 ml Tizanidine HCl (Tizanidine Hcl 4 Mg Tablet) 4 mg PO TID PRN PRN Reason: back spasm Last Admin: 05/07/23 17:59 Dose: 4 mg Trazodone HCl (Trazodone Hcl 100 Mg Tablet) 100 mg PO BEDTIME [facility] Last Admin: 05/07/23 21:25 Dose: 100 mg Ziprasidone (Ziprasidone 20 Mg Capsule) 20 mg PO BID PRN PRN Reason: agitation Last Admin: 05/05/23 19:12 Dose: 20 mg Ziprasidone (Ziprasidone Mesylate 20 Mg Vial) 20 mg IM BID PRN PRN Reason: only at PATIENTS request Last Admin: 05/04/23 18:34 Dose: 20 mg Zolpidem Tartrate (Zolpidem Tartrate 5 Mg Tablet) 5 mg PO BEDTIME PRN PRN Reason: Insomnia Last Admin: 05/05/23 20:41 Dose: 5 mg Zolpidem Tartrate (Zolpidem Tartrate 5 Mg Tablet) 5 mg PO BEDTIME [facility] Last Admin: 05/07/23 21:25 Dose: 5 mg Allergies Allergies Allergy/AdvReac Type Severity Reaction Status Date / Time chlorpromazine Allergy Severe Anaphylaxis Verified 03/26/23 08:56 [From Thorazine] lithium Allergy Hives Verified 03/26/23 08:56 lorazepam [From Ativan] AdvReac Intermediate Agitated, Verified 03/26/23 08:56 dysregulation haloperidol [From Haldol] AdvReac Agitated Verified 12/27/22 16:37 nut - unspecified AdvReac Anxiety Verified 03/26/23 08:56 Assessment & Plan Assessment & Plan (1) Back pain: Status: Acute Code(s): M54.9 - Dorsalgia, unspecified (2) Muscle spasm: Status: Acute Code(s): M62.838 - Other muscle spasm Plan Hospital Course 05/08 patient remains in behavioral control; able to have privileges in the milieu, and kitchen 1st and 2nd shift. Agrees to vacated to kitchen at 20:30 at which time she will get her incentive if she heard it. Otherwise continue treatment plan Met with multiple administrative staff regarding treatment plan Patient educated on: diagnosis Informed Consent: understands Reason for continued inpatient stay Substantial Risk for: harm to self, harm to others and inability to function Time Spent With Patient Time: Total time managing care of this patient today ____ minutes.
[2023-05-08] MEDS: Ziprasidone Mesylate 20 MG VIAL IM (18:39)
[2023-05-08] MEDS: diazePAM 10 MG/2 ML CARTRIDGE IM (18:39)
--- NOTE | 2023-05-08 19:00 | PM.EVENT ---
Event Note Date of Service: 05/08/23 Event Note: Patient requested IM versed spoke with the nursing spoke with her attending psychiatrist Dr. Briones Time Spent With Patient Time: Total time managing care of this patient today ____ minutes.
[2023-05-08] MEDS: Midazolam HCl/PF 2 MG/2 ML VIAL 4 MG IM (19:08)
[2023-05-08] MEDS: diphenhydrAMINE HCL 25 MG CAPSULE 75 MG PO (19:55)
[2023-05-08] MEDS: Melatonin 3 MG TABLET PO (19:55)
[2023-05-08] MEDS: clomiPRAMINE HCl 25 MG CAPSULE 75 MG PO (19:55)
[2023-05-08] MEDS: Zolpidem Tartrate 5 MG TABLET PO (20:43)
[2023-05-08] MEDS: traZODone HCL 100 MG TABLET PO (20:43)
[2023-05-08] MEDS: NaPROXEN 500 MG TABLET PO (21:14)
[2023-05-08] MEDS: TiZANidine HCL 4 MG TABLET PO (21:14)
[2023-05-08] MEDS: ALPRAZolam 0.5 MG TABLET PO (21:15)
[2023-05-09] MEDS: ALPRAZolam 0.5 MG TABLET PO (04:34)
[2023-05-09] MEDS: bisacodyL 5 MG TABLET.DR PO (05:43)
--- NOTE | 2023-05-09 06:31 | PC.NURSE ---
PT REPORTS TINGLING AND NUMBNESS IN HER LEFT HAND. PTS HAND APPEARS SWOLLEN AND REPORTS THAT THE PAIN IS RADIATING TO HER ELBOW. MD GIRALDO MADE AWARE.
[2023-05-09] MEDS: NaPROXEN 500 MG TABLET PO (06:51)
[2023-05-09 07:00] VITALS: BMI 46.6
[2023-05-09] MEDS: polyethylene glycoL 3350 17 GM POWD.PACK PO ×5 (07:59→21:33)
[2023-05-09] MEDS: OLANZapine 7.5 MG TABLET 15 MG PO ×2 (08:02→21:34)
[2023-05-09] MEDS: clonazePAM 1 MG TABLET 2 MG PO ×3 (08:02→21:34)
[2023-05-09] MEDS: Divalproex Sodium 500 MG TABLET.DR PO ×3 (08:03→21:34)
[2023-05-09] MEDS: Furosemide 40 MG TABLET PO (08:03)
[2023-05-09] MEDS: OXcarbazepine 300 MG TABLET 600 MG PO ×2 (08:03→14:01)
[2023-05-09] MEDS: Propranolol HCL LA 60 MG CAP.SA.24H 120 MG PO (08:03)
[2023-05-09] MEDS: QUEtiapine Fumarate 300 MG TABLET PO ×3 (08:03→21:34)
[2023-05-09] MEDS: Omeprazole 20 MG CAPSULE.DR PO (08:04)
[2023-05-09] MEDS: Lidocaine 4 % Patch ADH..PATCH 1 PATCH TRANSDERMA (08:05)
[2023-05-09 08:10] VITALS: BP 133/84; PULSE 94; RESP 18; TEMP 35.8; O2SAT 95
--- NOTE | 2023-05-09 08:52 | PC.NURSE ---
Pt currently in handicap shower, provided with stool to sit on while she washes herself. 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 Pt difficult to redirect and intermittently shouting from shower. Security and staff remain with pt on 2:1 for safety.
[2023-05-09] MEDS: Ziprasidone Mesylate 20 MG VIAL IM ×2 (09:20→19:18)
[2023-05-09] MEDS: diazePAM 10 MG/2 ML CARTRIDGE IM ×2 (09:25→19:18)
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
[2023-05-09 15:26] LABS: MANUAL DIFF FLAG NO
[2023-05-09 15:30] VITALS: BP 132/72; PULSE 88; TEMP 36.4; O2SAT 98
[2023-05-09 15:36] LABS: Ammonia 66 umol/L (13-55)
[2023-05-09 15:39] LABS: Valproate 72.6 mcg/mL (50.0-100.0)
[2023-05-09 15:43] LABS: Alanine Aminotransferase 21 U/L (0-31); Albumin Level 4.1 g/dL (3.5-5.0); Alkaline Phosphatase 55 U/L (39-117); Anion Gap 14 (12-20); Aspartate Amino Transferase 39 U/L (5-31); Bilirubin Total 0.2 mg/dL (0.0-1.0); Blood Urea Nitrogen 25 mg/dL (9-16); Calcium 9.7 mg/dL (8.4-10.2); Carbon Dioxide 25 mmol/L (22-29); Chloride 104 mmol/L (96-108); Creatinine Clr Calc Pharmacy 145.3; Estimated Glomerular Filt Rate > 60; Glucose Random 113 mg/dL (60-115); Potassium 4.3 mmol/L (3.3-5.1); Sodium 139 mmol/L (135-145); Total Protein 7.9 g/dL (6.5-8.0)
[2023-05-09 15:45] LABS: Basophils Percent Auto 0.5 % (0-2); Eosinophils Absolute Auto 0.3 X10*3/uL (0.0-0.4); Eosinophils Percent Auto 4.2 % (0-4); Hematocrit 37.5 % (37.0-47.0); Imm Gran Abs Auto 0.02 X10*3/uL (0.00-0.03); Imm Gran Pct Auto 0.2 % (0.0-0.4); Lymphocytes Absolute Auto 3.3 X10*3/uL (1.2-4.9); Lymphocytes Percent Auto 40.5 % (20-40); Mean Corpuscular Hemoglobin 29.9 pg (27.0-33.0); Mean Corpuscular Volume 93.3 fL (80.0-98.0); Mean Platelet Volume 10.5 fL (9.4-12.3); Monocytes Absolute Auto 0.9 X10*3/uL (0.1-1.2); Monocytes Percent Auto 11.1 % (2-11); Neutrophils Absolute Auto 3.5 x10*3/uL (2.0-8.3); Neutrophils Percent Auto 43.5 % (45-73); Platelet Count 233 X10*3/uL (160-400); Red Blood Count 4.02 X10*6/uL (4.20-5.50); Red Cell Distribution Width 13.2 % (11.0-16.0)
[2023-05-09] MEDS: Sodium Phosphate,Mono-Dibasic 133 ML ENEMA PR (16:04)
[2023-05-09 16:42] LABS: B Type Natriuretic Peptide 31 pg/mL (<100)
[2023-05-09] MEDS: clomiPRAMINE HCl 25 MG CAPSULE 75 MG PO (21:33)
[2023-05-09] MEDS: traZODone HCL 100 MG TABLET PO (21:34)
--- NOTE | 2023-05-09 23:59 | PC.NURSE ---
pt reported that her stomach pain worsened during the shift. hopitalist was called.
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
[2023-05-10 11:25] VITALS: BP 118/70; PULSE 102; RESP 16; TEMP 36.5; O2SAT 96
[2023-05-10] MEDS: polyethylene glycoL 3350 17 GM POWD.PACK PO ×6 (11:26→20:56)
[2023-05-10] MEDS: Divalproex Sodium 500 MG TABLET.DR PO ×3 (11:28→20:55)
[2023-05-10] MEDS: OLANZapine 7.5 MG TABLET 15 MG PO ×2 (11:28→20:54)
[2023-05-10] MEDS: Omeprazole 20 MG CAPSULE.DR PO (11:28)
[2023-05-10] MEDS: QUEtiapine Fumarate 300 MG TABLET PO ×3 (11:29→20:54)
[2023-05-10] MEDS: Propranolol HCL LA 60 MG CAP.SA.24H 120 MG PO (11:29)
[2023-05-10] MEDS: Lidocaine 4 % Patch ADH..PATCH 1 PATCH TRANSDERMA (11:29)
[2023-05-10] MEDS: clonazePAM 1 MG TABLET 2 MG PO ×3 (11:29→20:54)
[2023-05-10] MEDS: OXcarbazepine 300 MG TABLET 600 MG PO ×2 (11:29→13:23)
[2023-05-10] MEDS: Furosemide 40 MG TABLET PO (11:29)
[2023-05-10] MEDS: Lactulose 20 GM/30 ML SOLUTION 10 GM PO (11:30)
--- NOTE | 2023-05-10 12:36 | MHC.CLN ---
NUTRITION CONSULT FOR HELP WITH HEALTHY FOOD CHOICES. PATIENT AGREEABLE TO TALKING WITH THIS INDUSTRIAL CONTROLLER. DISCUSSED CHOOSING LOWER FAT MILK (CURRENTLY WITH WHOLE MILK), EATING LESS CANDY/SNACK FOOD, AND SELECTING FRUIT INSTEAD OF DESSERTS. ENCOURAGE LOWER FAT FOOD CHOICES AND LESS SNACKING ABLE.
--- NOTE | 2023-05-10 13:14 | PM.EVENT ---
Event Note Date of Service: 05/10/23 Event Note: Pt with chronic constipation. KUB ordered yesterday showing moderate constipation after patient reporting bilateral lower abdominal pain. No nausea/vomiting. Reports last BM was several days ago. Psychiatry increased miralax yesterday to QID (had been reduced to BID due to loose stools). Had enema yesterday without BM. Taking lactulose 10mg daily. Pt is sitting up eating all of her breakfast. Abd is soft mildly tender, no guarding or rebound. Recommend continuing miralax as increased by psychiatry. Continue lactulose 10mg daily. Continue senna. Recommend dulcolax supp x 1 and repeat enema if no bm. Utilize prns that are ordered. Consider reconsulting GI if needed. Time Spent With Patient Time: Total time managing care of this patient today ____ minutes.
[2023-05-10] MEDS: Lactulose 20 GM/30 ML SOLUTION PO (13:23)
[2023-05-10] MEDS: Simethicone 80 MG TAB.CHEW PO ×3 (13:23→20:54)
[2023-05-10 13:42] LABS: Lipase 12 U/L (8-78)
[2023-05-10 14:06] LABS: TSH reflex Free T4 1.92 uIU/mL (0.32-4.0)
[2023-05-10 17:00] VITALS: BP 95/55; PULSE 81; TEMP 36.2; O2SAT 95
[2023-05-10] MEDS: clomiPRAMINE HCl 25 MG CAPSULE 75 MG PO (20:54)
[2023-05-10] MEDS: traZODone HCL 100 MG TABLET PO (20:54)
[2023-05-11 09:29] VITALS: BP 105/53; PULSE 86; RESP 18; TEMP 36.7; O2SAT 94
[2023-05-11] MEDS: Fluticasone Propionate Nasal 16 GM SPRAY 1 SPRAY NOSTRIL-B (09:47)
[2023-05-11] MEDS: Propranolol HCL LA 60 MG CAP.SA.24H 120 MG PO (09:48)
[2023-05-11] MEDS: Divalproex Sodium 500 MG TABLET.DR PO ×3 (09:48→19:34)
[2023-05-11] MEDS: Lidocaine 4 % Patch ADH..PATCH 1 PATCH TRANSDERMA (09:48)
[2023-05-11] MEDS: OXcarbazepine 300 MG TABLET 600 MG PO ×2 (09:49→14:02)
[2023-05-11] MEDS: Omeprazole 20 MG CAPSULE.DR PO (09:49)
[2023-05-11] MEDS: Simethicone 80 MG TAB.CHEW PO ×4 (09:49→19:34)
[2023-05-11] MEDS: QUEtiapine Fumarate 300 MG TABLET PO ×3 (09:49→19:35)
[2023-05-11] MEDS: Furosemide 40 MG TABLET PO ×2 (09:50→18:17)
[2023-05-11] MEDS: clonazePAM 1 MG TABLET 2 MG PO ×3 (09:50→19:34)
[2023-05-11] MEDS: OLANZapine 7.5 MG TABLET 15 MG PO ×2 (09:51→19:34)
[2023-05-11] MEDS: polyethylene glycoL 3350 17 GM POWD.PACK PO ×2 (09:57→19:33)
[2023-05-11] MEDS: diazePAM 10 MG/2 ML CARTRIDGE IM ×2 (14:02→19:29)
[2023-05-11] MEDS: Ziprasidone Mesylate 20 MG VIAL IM ×2 (14:02→19:29)
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
[2023-05-11 18:35] VITALS: BP 114/60; PULSE 83; RESP 18; TEMP 36.2; O2SAT 98
[2023-05-11] MEDS: clomiPRAMINE HCl 25 MG CAPSULE 75 MG PO (19:34)
[2023-05-11] MEDS: traZODone HCL 100 MG TABLET PO (19:34)
[2023-05-11] MEDS: Midazolam HCl/PF 2 MG/2 ML VIAL 4 MG IM (20:21)
[2023-05-11] MEDS: TiZANidine HCL 4 MG TABLET PO (20:48)
[2023-05-11] MEDS: NaPROXEN 500 MG TABLET PO (20:48)
[2023-05-11] MEDS: Acetaminophen 325 MG TABLET 650 MG PO (22:36)
[2023-05-11] MEDS: Ziprasidone 20 MG CAPSULE PO (22:36)
[2023-05-12 10:00] VITALS: BP 122/69; PULSE 88; RESP 16; TEMP 36.1; O2SAT 94
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
[2023-05-12] MEDS: Furosemide 40 MG TABLET PO ×2 (11:13→16:55)
[2023-05-12] MEDS: clonazePAM 1 MG TABLET 2 MG PO ×3 (11:13→20:06)
[2023-05-12] MEDS: QUEtiapine Fumarate 300 MG TABLET PO ×3 (11:13→20:05)
[2023-05-12] MEDS: Omeprazole 20 MG CAPSULE.DR PO (11:13)
[2023-05-12] MEDS: Propranolol HCL LA 60 MG CAP.SA.24H 120 MG PO (11:14)
[2023-05-12] MEDS: OLANZapine 7.5 MG TABLET 15 MG PO ×2 (11:14→20:05)
[2023-05-12] MEDS: Divalproex Sodium 500 MG TABLET.DR PO ×3 (11:14→20:04)
[2023-05-12] MEDS: OXcarbazepine 300 MG TABLET 600 MG PO ×2 (11:15→16:30)
[2023-05-12] MEDS: Simethicone 80 MG TAB.CHEW PO ×3 (11:15→20:04)
[2023-05-12] MEDS: polyethylene glycoL 3350 17 GM POWD.PACK PO (11:16)
[2023-05-12] MEDS: diazePAM 10 MG/2 ML CARTRIDGE IM ×2 (13:14→17:12)
[2023-05-12] MEDS: Ziprasidone Mesylate 20 MG VIAL IM ×2 (13:14→22:22)
[2023-05-12] MEDS: Ziprasidone 20 MG CAPSULE PO (16:33)
[2023-05-12 17:34] VITALS: BP 99/54; PULSE 93; RESP 18; TEMP 36.2; O2SAT 99
[2023-05-12] MEDS: Midazolam HCl/PF 2 MG/2 ML VIAL IM (19:42)
[2023-05-12] MEDS: traZODone HCL 100 MG TABLET PO (20:05)
[2023-05-12] MEDS: clomiPRAMINE HCl 25 MG CAPSULE 75 MG PO (20:07)
[2023-05-12] MEDS: Zolpidem Tartrate 5 MG TABLET PO (21:12)
[2023-05-12] MEDS: Midazolam HCl/PF 2 MG/2 ML VIAL 4 MG IM (21:33)
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
[2023-05-13] MEDS: clonazePAM 1 MG TABLET 2 MG PO ×3 (09:15→23:51)
[2023-05-13] MEDS: OXcarbazepine 300 MG TABLET 600 MG PO ×2 (09:17→18:24)
[2023-05-13] MEDS: Furosemide 40 MG TABLET PO ×2 (09:17→18:25)
[2023-05-13] MEDS: Propranolol HCL LA 60 MG CAP.SA.24H 120 MG PO (09:17)
[2023-05-13] MEDS: OLANZapine 7.5 MG TABLET 15 MG PO ×2 (09:17→23:44)
[2023-05-13] MEDS: Omeprazole 20 MG CAPSULE.DR PO (09:17)
[2023-05-13] MEDS: QUEtiapine Fumarate 300 MG TABLET PO ×3 (09:18→23:44)
[2023-05-13] MEDS: Simethicone 80 MG TAB.CHEW PO ×4 (09:18→23:44)
[2023-05-13] MEDS: polyethylene glycoL 3350 17 GM POWD.PACK PO ×2 (09:18→23:43)
[2023-05-13] MEDS: Divalproex Sodium 500 MG TABLET.DR PO ×3 (09:18→23:43)
[2023-05-13] MEDS: diazePAM 10 MG/2 ML CARTRIDGE IM ×2 (11:15→18:56)
[2023-05-13] MEDS: Ziprasidone Mesylate 20 MG VIAL IM ×2 (11:15→18:57)
[2023-05-13] MEDS: Midazolam HCl/PF 2 MG/2 ML VIAL 4 MG IM ×2 (11:16→19:27)
[2023-05-13] MEDS: Lidocaine 4 % Patch ADH..PATCH 1 PATCH TRANSDERMA (11:26)
[2023-05-13 11:44] VITALS: RESP 16
[2023-05-13 18:30] VITALS: BP 116/72; PULSE 88; TEMP 36.8; O2SAT 99
[2023-05-13] MEDS: diphenhydrAMINE HCL 50 MG/ML VIAL 25 MG IM (19:35)
[2023-05-13] MEDS: clomiPRAMINE HCl 25 MG CAPSULE 75 MG PO (23:44)
[2023-05-13] MEDS: traZODone HCL 100 MG TABLET PO (23:46)
[2023-05-13] MEDS: Zolpidem Tartrate 5 MG TABLET PO (23:53)
[2023-05-13] MEDS: Calcium Carbonate 750 MG TAB.CHEW PO (23:57)
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
[2023-05-14 12:40] VITALS: BP 114/64; PULSE 89; RESP 16; TEMP 36.6; O2SAT 96
[2023-05-14] MEDS: polyethylene glycoL 3350 17 GM POWD.PACK PO ×2 (12:47→22:20)
[2023-05-14] MEDS: Propranolol HCL LA 60 MG CAP.SA.24H 120 MG PO (12:48)
[2023-05-14] MEDS: Divalproex Sodium 500 MG TABLET.DR PO ×3 (12:48→22:06)
[2023-05-14] MEDS: Fluticasone Propionate Nasal 16 GM SPRAY 1 SPRAY NOSTRIL-B (12:48)
[2023-05-14] MEDS: Simethicone 80 MG TAB.CHEW PO ×2 (12:48→22:07)
[2023-05-14] MEDS: QUEtiapine Fumarate 300 MG TABLET PO ×3 (12:49→22:06)
[2023-05-14] MEDS: Furosemide 40 MG TABLET PO (12:49)
[2023-05-14] MEDS: Omeprazole 20 MG CAPSULE.DR PO (12:49)
[2023-05-14] MEDS: OLANZapine 7.5 MG TABLET 15 MG PO ×2 (12:49→22:06)
[2023-05-14] MEDS: clonazePAM 1 MG TABLET 2 MG PO (12:49)
[2023-05-14] MEDS: Lidocaine 4 % Patch ADH..PATCH 1 PATCH TRANSDERMA (12:50)
[2023-05-14] MEDS: OXcarbazepine 300 MG TABLET 600 MG PO ×2 (12:50→15:55)
--- NOTE | 2023-05-14 14:05 | PM.EVENT ---
Event Note Date of Service: 05/14/23 Event Note: pt dysregulated, tried to cut arm with spoon, could not be redirected, required restraint, physical/medical Time Spent With Patient Time: Total time managing care of this patient today ____ minutes.
[2023-05-14] MEDS: Midazolam HCl/PF 2 MG/2 ML VIAL 8 MG IM (14:14)
[2023-05-14] MEDS: diazePAM 10 MG/2 ML CARTRIDGE IM ×2 (14:15→15:54)
--- NOTE | 2023-05-14 15:40 | PM.EVENT ---
Event Note Date of Service: 05/14/23 Event Note: pt started to breaking plastic incentive spirometry to cut self; could not be redirected; needed physcial/chemical restraint Time Spent With Patient Time: Total time managing care of this patient today ____ minutes.
[2023-05-14] MEDS: clonazePAM 0.5 MG TABLET 1.5 MG PO ×2 (15:55→22:07)
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
[2023-05-14 19:08] VITALS: BP 118/59; PULSE 83; TEMP 36.2; O2SAT 99
[2023-05-14] MEDS: traZODone HCL 100 MG TABLET PO (22:06)
[2023-05-14] MEDS: clomiPRAMINE HCl 25 MG CAPSULE 75 MG PO (22:07)
[2023-05-14] MEDS: Zolpidem Tartrate 5 MG TABLET PO (23:03)
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
[2023-05-15 10:00] VITALS: BP 134/62; PULSE 100; RESP 16; TEMP 36.6; O2SAT 98
[2023-05-15] MEDS: clonazePAM 0.5 MG TABLET 1.5 MG PO ×3 (10:17→21:03)
[2023-05-15] MEDS: Lidocaine 4 % Patch ADH..PATCH 1 PATCH TRANSDERMA (10:17)
[2023-05-15] MEDS: OXcarbazepine 300 MG TABLET 600 MG PO ×2 (10:17→14:14)
[2023-05-15] MEDS: polyethylene glycoL 3350 17 GM POWD.PACK PO ×2 (10:17→21:04)
[2023-05-15] MEDS: OLANZapine 7.5 MG TABLET 15 MG PO ×2 (10:17→21:01)
[2023-05-15] MEDS: Simethicone 80 MG TAB.CHEW PO ×4 (10:18→21:00)
[2023-05-15] MEDS: Furosemide 40 MG TABLET PO ×2 (10:18→17:11)
[2023-05-15] MEDS: Divalproex Sodium 500 MG TABLET.DR PO ×3 (10:18→21:04)
[2023-05-15] MEDS: Omeprazole 20 MG CAPSULE.DR PO (10:18)
[2023-05-15] MEDS: QUEtiapine Fumarate 300 MG TABLET PO ×3 (10:19→21:01)
[2023-05-15] MEDS: Propranolol HCL LA 60 MG CAP.SA.24H 120 MG PO (10:21)
[2023-05-15] MEDS: diazePAM 10 MG/2 ML CARTRIDGE IM ×2 (10:49→23:11)
[2023-05-15] MEDS: Ziprasidone Mesylate 20 MG VIAL IM ×2 (10:49→23:10)
[2023-05-15] MEDS: Midazolam HCl/PF 2 MG/2 ML VIAL 4 MG IM (10:50)
[2023-05-15 17:05] VITALS: BP 123/83; PULSE 83; TEMP 36.7
[2023-05-15] MEDS: clomiPRAMINE HCl 25 MG CAPSULE 75 MG PO (21:01)
[2023-05-15] MEDS: traZODone HCL 100 MG TABLET PO (21:03)
[2023-05-15] MEDS: Zolpidem Tartrate 5 MG TABLET PO (23:08)
[2023-05-16] MEDS: polyethylene glycoL 3350 17 GM POWD.PACK PO ×2 (09:44→22:08)
[2023-05-16] MEDS: OXcarbazepine 300 MG TABLET 600 MG PO ×2 (09:46→17:04)
[2023-05-16] MEDS: Propranolol HCL LA 60 MG CAP.SA.24H 120 MG PO (09:46)
[2023-05-16] MEDS: Simethicone 80 MG TAB.CHEW PO ×4 (09:46→22:11)
[2023-05-16] MEDS: Divalproex Sodium 500 MG TABLET.DR PO ×3 (09:46→22:11)
[2023-05-16] MEDS: QUEtiapine Fumarate 300 MG TABLET PO ×3 (09:46→22:10)
[2023-05-16] MEDS: Omeprazole 20 MG CAPSULE.DR PO (09:46)
[2023-05-16] MEDS: Furosemide 40 MG TABLET PO ×2 (09:46→17:03)
[2023-05-16] MEDS: clonazePAM 0.5 MG TABLET 1.5 MG PO ×3 (09:46→22:08)
[2023-05-16] MEDS: OLANZapine 7.5 MG TABLET 15 MG PO ×2 (09:47→22:10)
[2023-05-16] MEDS: Lidocaine 4 % Patch ADH..PATCH 1 PATCH TRANSDERMA (09:47)
[2023-05-16] MEDS: Fluticasone Propionate Nasal 16 GM SPRAY 1 SPRAY NOSTRIL-B (09:50)
[2023-05-16 10:00] VITALS: BP 116/77; PULSE 86; RESP 16; TEMP 36.1; O2SAT 95
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
[2023-05-16] MEDS: Ziprasidone Mesylate 20 MG VIAL IM (12:39)
[2023-05-16] MEDS: diazePAM 10 MG/2 ML CARTRIDGE IM (12:39)
[2023-05-16 16:45] VITALS: BP 128/78; PULSE 85; TEMP 36.2
[2023-05-16] MEDS: Clotrimazole 1 % Cream 15 GM TUBE 1 APPL TOPICAL ×2 (17:09→22:37)
[2023-05-16] MEDS: clomiPRAMINE HCl 25 MG CAPSULE 75 MG PO (22:10)
[2023-05-16] MEDS: traZODone HCL 100 MG TABLET PO (22:12)
[2023-05-17] MEDS: Zolpidem Tartrate 5 MG TABLET PO (01:13)
[2023-05-17] MEDS: diazePAM 10 MG/2 ML CARTRIDGE IM (02:19)
[2023-05-17] MEDS: Ziprasidone Mesylate 20 MG VIAL IM (02:19)
--- NOTE | 2023-05-17 04:01 | PC.NURSE ---
At approx 0200, patient reports to this RN that she felt frustrated and was having difficulty calming herself. Patient requested PRN medications via IM. IM geodon and valium administered at 0220 with effect.
[2023-05-17 10:00] VITALS: BP 128/77; PULSE 97; RESP 18; TEMP 36.8; O2SAT 98
--- NOTE | 2023-05-17 10:51 | PC.NURSE ---
05/06/23 1045- 10mg diazepam was given IM to this pt.
[2023-05-17] MEDS: OXcarbazepine 300 MG TABLET 600 MG PO ×2 (11:45→17:14)
[2023-05-17] MEDS: Furosemide 40 MG TABLET PO ×2 (11:46→17:15)
[2023-05-17] MEDS: polyethylene glycoL 3350 17 GM POWD.PACK PO ×2 (11:46→23:11)
[2023-05-17] MEDS: Lidocaine 4 % Patch ADH..PATCH 1 PATCH TRANSDERMA (11:46)
[2023-05-17] MEDS: Propranolol HCL LA 60 MG CAP.SA.24H 120 MG PO (11:46)
[2023-05-17] MEDS: QUEtiapine Fumarate 300 MG TABLET PO ×3 (11:47→23:06)
[2023-05-17] MEDS: Omeprazole 20 MG CAPSULE.DR PO (11:47)
[2023-05-17] MEDS: clonazePAM 0.5 MG TABLET 1.5 MG PO ×3 (11:47→23:06)
[2023-05-17] MEDS: Divalproex Sodium 500 MG TABLET.DR PO ×3 (11:47→23:05)
[2023-05-17] MEDS: Simethicone 80 MG TAB.CHEW PO ×3 (11:47→23:08)
[2023-05-17] MEDS: Clotrimazole 1 % Cream 15 GM TUBE 1 APPL TOPICAL ×2 (11:48→23:12)
[2023-05-17] MEDS: OLANZapine 7.5 MG TABLET 15 MG PO ×2 (11:48→23:08)
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
[2023-05-17 16:45] VITALS: BP 132/59; PULSE 84; TEMP 36.3
[2023-05-17] MEDS: Calcium Carbonate 750 MG TAB.CHEW PO (18:05)
[2023-05-17] MEDS: clomiPRAMINE HCl 25 MG CAPSULE 75 MG PO (23:07)
[2023-05-17] MEDS: traZODone HCL 100 MG TABLET PO (23:08)
[2023-05-18] MEDS: Zolpidem Tartrate 5 MG TABLET PO ×3 (00:48→23:44)
[2023-05-18] MEDS: diazePAM 10 MG/2 ML CARTRIDGE IM ×2 (00:49→15:32)
[2023-05-18] MEDS: Ziprasidone Mesylate 20 MG VIAL IM ×2 (00:49→15:32)
[2023-05-18 10:00] VITALS: BP 127/74; PULSE 95; RESP 16; TEMP 36.1; O2SAT 96
[2023-05-18] MEDS: Clotrimazole 1 % Cream 15 GM TUBE 1 APPL TOPICAL (10:44)
[2023-05-18] MEDS: polyethylene glycoL 3350 17 GM POWD.PACK PO ×2 (10:45→20:41)
[2023-05-18] MEDS: Fluticasone Propionate Nasal 16 GM SPRAY 1 SPRAY NOSTRIL-B (10:45)
[2023-05-18] MEDS: Lidocaine 4 % Patch ADH..PATCH 1 PATCH TRANSDERMA (10:45)
[2023-05-18] MEDS: Simethicone 80 MG TAB.CHEW PO ×3 (10:47→20:40)
[2023-05-18] MEDS: clonazePAM 0.5 MG TABLET 1.5 MG PO ×3 (10:47→20:40)
[2023-05-18] MEDS: OLANZapine 7.5 MG TABLET 15 MG PO ×2 (10:48→20:41)
[2023-05-18] MEDS: QUEtiapine Fumarate 300 MG TABLET PO ×3 (10:48→20:40)
[2023-05-18] MEDS: OXcarbazepine 300 MG TABLET 600 MG PO ×2 (10:48→15:19)
[2023-05-18] MEDS: Divalproex Sodium 500 MG TABLET.DR PO ×3 (10:48→20:40)
[2023-05-18] MEDS: Omeprazole 20 MG CAPSULE.DR PO (10:48)
[2023-05-18] MEDS: Propranolol HCL LA 60 MG CAP.SA.24H 120 MG PO (10:48)
[2023-05-18] MEDS: Furosemide 40 MG TABLET PO (11:37)
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
[2023-05-18] MEDS: traZODone HCL 100 MG TABLET PO (20:40)
[2023-05-18] MEDS: clomiPRAMINE HCl 25 MG CAPSULE 75 MG PO (20:41)
[2023-05-19] MEDS: diazePAM 10 MG/2 ML CARTRIDGE IM ×2 (00:14→18:45)
[2023-05-19] MEDS: Ziprasidone Mesylate 20 MG VIAL IM ×2 (00:14→18:45)
[2023-05-19] MEDS: polyethylene glycoL 3350 17 GM POWD.PACK PO (08:09)
[2023-05-19] MEDS: Lidocaine 4 % Patch ADH..PATCH 1 PATCH TRANSDERMA (08:09)
[2023-05-19] MEDS: clonazePAM 0.5 MG TABLET 1.5 MG PO ×3 (08:09→21:18)
[2023-05-19] MEDS: Divalproex Sodium 500 MG TABLET.DR PO ×3 (08:09→21:18)
[2023-05-19] MEDS: QUEtiapine Fumarate 300 MG TABLET PO ×3 (08:09→21:18)
[2023-05-19] MEDS: OLANZapine 7.5 MG TABLET 15 MG PO ×2 (08:09→21:18)
[2023-05-19] MEDS: OXcarbazepine 300 MG TABLET 600 MG PO ×2 (08:09→14:00)
[2023-05-19] MEDS: Furosemide 40 MG TABLET PO ×2 (08:09→16:32)
[2023-05-19] MEDS: Omeprazole 20 MG CAPSULE.DR PO (08:09)
[2023-05-19] MEDS: Simethicone 80 MG TAB.CHEW PO ×4 (08:10→21:18)
[2023-05-19] MEDS: Propranolol HCL LA 60 MG CAP.SA.24H 120 MG PO (08:10)
[2023-05-19 08:24] VITALS: BP 114/68; PULSE 91; RESP 16; TEMP 36.4; O2SAT 95
[2023-05-19] MEDS: Fluticasone Propionate Nasal 16 GM SPRAY 1 SPRAY NOSTRIL-B (09:10)
[2023-05-19] MEDS: Clotrimazole 1 % Cream 15 GM TUBE 1 APPL TOPICAL (09:36)
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
[2023-05-19 17:00] VITALS: BP 114/78; PULSE 77; TEMP 36.1; O2SAT 93
[2023-05-19] MEDS: Midazolam HCl/PF 2 MG/2 ML VIAL 8 MG IM (19:25)
--- NOTE | 2023-05-19 19:53 | PC.NURSE ---
pt began to get agitated. pt asked for valium and geodon shots. pt recieved those shots and then asked for versed shot. pt got 8mg of versed. pt went to sleep after that.
[2023-05-19] MEDS: clomiPRAMINE HCl 25 MG CAPSULE 75 MG PO (21:18)
[2023-05-19] MEDS: Zolpidem Tartrate 5 MG TABLET 10 MG PO (21:18)
[2023-05-19] MEDS: traZODone HCL 100 MG TABLET PO (21:18)
[2023-05-20] MEDS: Ziprasidone 20 MG CAPSULE PO (00:32)
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
[2023-05-20] MEDS: Ziprasidone Mesylate 20 MG VIAL IM (12:58)
[2023-05-20] MEDS: diazePAM 10 MG/2 ML CARTRIDGE IM (12:59)
[2023-05-20 13:05] VITALS: BP 139/89; PULSE 87; RESP 18; TEMP 36; O2SAT 96
[2023-05-20] MEDS: Midazolam HCl/PF 2 MG/2 ML VIAL 4 MG IM (13:06)
[2023-05-20] MEDS: polyethylene glycoL 3350 17 GM POWD.PACK PO ×2 (13:22→20:15)
[2023-05-20] MEDS: Divalproex Sodium 500 MG TABLET.DR PO ×2 (13:24→20:14)
[2023-05-20] MEDS: clonazePAM 0.5 MG TABLET 1.5 MG PO ×3 (13:24→20:08)
[2023-05-20] MEDS: Propranolol HCL LA 60 MG CAP.SA.24H 120 MG PO (13:24)
[2023-05-20] MEDS: OLANZapine 7.5 MG TABLET 15 MG PO ×2 (13:24→20:15)
[2023-05-20] MEDS: OXcarbazepine 300 MG TABLET 600 MG PO (13:25)
[2023-05-20] MEDS: Furosemide 40 MG TABLET PO ×2 (13:25→17:47)
[2023-05-20] MEDS: Omeprazole 20 MG CAPSULE.DR PO (13:26)
[2023-05-20] MEDS: QUEtiapine Fumarate 300 MG TABLET PO ×3 (13:26→20:12)
[2023-05-20] MEDS: Simethicone 80 MG TAB.CHEW PO ×3 (13:26→20:09)
[2023-05-20] MEDS: Lidocaine 4 % Patch ADH..PATCH 1 PATCH TRANSDERMA (13:26)
--- NOTE | 2023-05-20 14:07 | PC.NURSE ---
Around 1300, pt threw plastic tray at wall out of frustration. Pt requested and received one time PRN Versed IM as well as PRN Geodon IM and Valium IM.
[2023-05-20 17:40] VITALS: BP 115/58; PULSE 80; TEMP 35.9
[2023-05-20] MEDS: clomiPRAMINE HCl 25 MG CAPSULE 75 MG PO (20:09)
[2023-05-20] MEDS: NaPROXEN 500 MG TABLET PO (20:10)
[2023-05-20] MEDS: traZODone HCL 100 MG TABLET PO (20:14)
[2023-05-20] MEDS: Zolpidem Tartrate 5 MG TABLET 10 MG PO (23:39)
[2023-05-21 10:00] VITALS: RESP 16
[2023-05-21] MEDS: diazePAM 10 MG/2 ML CARTRIDGE IM (13:39)
[2023-05-21] MEDS: Midazolam HCl/PF 2 MG/2 ML VIAL 4 MG IM (13:40)
[2023-05-21] MEDS: Ziprasidone Mesylate 20 MG VIAL IM (13:40)
[2023-05-21] MEDS: clonazePAM 0.5 MG TABLET 1.5 MG PO ×3 (13:40→20:44)
[2023-05-21] MEDS: OXcarbazepine 300 MG TABLET 600 MG PO ×2 (13:41→17:32)
[2023-05-21] MEDS: Simethicone 80 MG TAB.CHEW PO ×3 (13:41→20:43)
[2023-05-21] MEDS: OLANZapine 7.5 MG TABLET 15 MG PO ×2 (13:41→20:43)
[2023-05-21] MEDS: polyethylene glycoL 3350 17 GM POWD.PACK PO ×2 (13:42→20:42)
[2023-05-21] MEDS: QUEtiapine Fumarate 300 MG TABLET PO ×3 (13:42→20:44)
[2023-05-21] MEDS: Omeprazole 20 MG CAPSULE.DR PO (13:42)
[2023-05-21] MEDS: Propranolol HCL LA 60 MG CAP.SA.24H 120 MG PO (13:42)
[2023-05-21] MEDS: Divalproex Sodium 500 MG TABLET.DR PO ×3 (13:42→20:44)
[2023-05-21] MEDS: Lidocaine 4 % Patch ADH..PATCH 1 PATCH TRANSDERMA (13:43)
[2023-05-21] MEDS: Furosemide 40 MG TABLET PO (13:45)
[2023-05-21 17:40] VITALS: BP 120/70; PULSE 82; TEMP 36.3
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
[2023-05-21] MEDS: clomiPRAMINE HCl 25 MG CAPSULE 75 MG PO (20:42)
[2023-05-21] MEDS: traZODone HCL 100 MG TABLET PO (20:43)
[2023-05-22] MEDS: Ziprasidone Mesylate 20 MG VIAL IM (01:05)
[2023-05-22] MEDS: diazePAM 10 MG/2 ML CARTRIDGE IM (01:05)
[2023-05-22] MEDS: polyethylene glycoL 3350 17 GM POWD.PACK PO ×2 (08:46→20:51)
[2023-05-22] MEDS: Fluticasone Propionate Nasal 16 GM SPRAY 1 SPRAY NOSTRIL-B (08:46)
[2023-05-22] MEDS: Clotrimazole 1 % Cream 15 GM TUBE 1 APPL TOPICAL (08:46)
[2023-05-22] MEDS: Divalproex Sodium 500 MG TABLET.DR PO ×3 (08:47→20:51)
[2023-05-22] MEDS: Propranolol HCL LA 60 MG CAP.SA.24H 120 MG PO (08:47)
[2023-05-22] MEDS: Omeprazole 20 MG CAPSULE.DR PO (08:47)
[2023-05-22] MEDS: Simethicone 80 MG TAB.CHEW PO ×4 (08:47→20:50)
[2023-05-22] MEDS: Furosemide 40 MG TABLET PO ×2 (08:47→16:40)
[2023-05-22] MEDS: QUEtiapine Fumarate 300 MG TABLET PO ×3 (08:48→20:51)
[2023-05-22] MEDS: Lidocaine 4 % Patch ADH..PATCH 1 PATCH TRANSDERMA ×2 (08:48→14:56)
[2023-05-22] MEDS: OXcarbazepine 300 MG TABLET 600 MG PO ×2 (08:48→14:41)
[2023-05-22] MEDS: OLANZapine 7.5 MG TABLET 15 MG PO ×2 (08:48→20:51)
[2023-05-22] MEDS: clonazePAM 0.5 MG TABLET 1.5 MG PO ×3 (08:48→20:50)
[2023-05-22 09:10] VITALS: BP 132/89; PULSE 72; RESP 16; TEMP 36.1; O2SAT 96
--- NOTE | 2023-05-22 10:05 | P.PNPSI_ITS ---
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 Collections Rep discussed medications again with Dr. 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 While droperidol has been using the past for similar situations, patient has Haldol listed as an allergy which has very similar chemical structured true droperidol. 05/16 Continue current regime and plan of care. 05/18: Continue current regimen and plans. Continue to 1 observation 05/19 continue current regimen and plans. Increased Ambien to 10 mg q.h.s. 05/21 patient remains in relatively good behavioral/impulse control and has advancing privileges Continued discussions with [facility] about transfer to [facility] facility 05/22 patient welcomed the news that there is a bed at [facility]; remains in good behavioral control. Privileges advance to axis to the kitchen though not groups yet Patient educated on: diagnosis, medication risk/benefits and therapeutic strategies Informed Consent: understands Reason for continued inpatient stay Substantial Risk for: harm to self, harm to others and inability to function Time Spent With Patient Time: Total time managing care of this patient today ____ minutes.
[2023-05-22 16:30] VITALS: BP 112/70; PULSE 85; TEMP 35.9
[2023-05-22 17:00] VITALS: O2SAT 95
[2023-05-22] MEDS: ALPRAZolam 0.5 MG TABLET PO (17:26)
[2023-05-22] MEDS: clomiPRAMINE HCl 25 MG CAPSULE 75 MG PO (20:50)
[2023-05-22] MEDS: traZODone HCL 100 MG TABLET PO (20:51)
[2023-05-23] MEDS: Ziprasidone Mesylate 20 MG VIAL IM (00:15)
[2023-05-23] MEDS: diazePAM 10 MG/2 ML CARTRIDGE IM (00:15)
[2023-05-23] MEDS: polyethylene glycoL 3350 17 GM POWD.PACK PO ×2 (13:05→20:28)
[2023-05-23] MEDS: Fluticasone Propionate Nasal 16 GM SPRAY 1 SPRAY NOSTRIL-B (13:05)
[2023-05-23] MEDS: Lidocaine 4 % Patch ADH..PATCH 1 PATCH TRANSDERMA (13:05)
[2023-05-23] MEDS: Divalproex Sodium 500 MG TABLET.DR PO ×3 (13:06→20:27)
[2023-05-23] MEDS: Propranolol HCL LA 60 MG CAP.SA.24H 120 MG PO (13:06)
[2023-05-23] MEDS: OXcarbazepine 300 MG TABLET 600 MG PO ×2 (13:06→14:48)
[2023-05-23] MEDS: Simethicone 80 MG TAB.CHEW PO ×2 (13:07→20:27)
[2023-05-23] MEDS: Furosemide 40 MG TABLET PO ×2 (13:07→19:50)
[2023-05-23] MEDS: Omeprazole 20 MG CAPSULE.DR PO (13:07)
[2023-05-23] MEDS: QUEtiapine Fumarate 300 MG TABLET PO ×3 (13:07→20:27)
[2023-05-23] MEDS: OLANZapine 7.5 MG TABLET 15 MG PO ×2 (13:08→20:27)
[2023-05-23] MEDS: clonazePAM 0.5 MG TABLET 1.5 MG PO ×3 (13:08→20:26)
[2023-05-23] MEDS: Clotrimazole 1 % Cream 15 GM TUBE 1 APPL TOPICAL (13:20)
[2023-05-23 13:34] VITALS: BP 128/86; PULSE 100; RESP 16; TEMP 36.7; O2SAT 96
--- NOTE | 2023-05-23 16:39 | HO.PSYCHPN ---
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 medications again with Dr. 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 While droperidol has been using the past for similar situations, patient has Haldol listed as an allergy which has very similar chemical structured true droperidol. 05/16 Continue current regime and plan of care. 05/18: Continue current regimen and plans. Continue to 1 observation 05/19 continue current regimen and plans. Increased Ambien to 10 mg q.h.s. 05/21 patient remains in relatively good behavioral/impulse control and has advancing privileges Continued discussions with [facility] about transfer to [facility] facility 05/22 patient welcomed the news that there is a bed at [facility]; remains in good behavioral control. Privileges advance to axis to the kitchen though not groups yet 05/23/23: Pt is advancing privileges. Dainel Aquino prn x 1. Continue current regime and plan of care. Informed Consent: understands Reason for continued inpatient stay Substantial Risk for: harm to self, harm to others, inability to function and rapid decompensation Time Spent With Patient Time: Total time managing care of this patient today ____ minutes.
[2023-05-23 19:45] VITALS: BP 125/72; PULSE 82; TEMP 36.8; O2SAT 96
[2023-05-23] MEDS: clomiPRAMINE HCl 25 MG CAPSULE 75 MG PO (20:26)
[2023-05-23] MEDS: traZODone HCL 100 MG TABLET PO (20:26)
[2023-05-23] MEDS: Zolpidem Tartrate 5 MG TABLET 10 MG PO (20:27)
[2023-05-24] MEDS: Zolpidem Tartrate 5 MG TABLET 10 MG PO (00:11)
[2023-05-24] MEDS: diazePAM 10 MG/2 ML CARTRIDGE IM ×2 (00:42→17:28)
[2023-05-24] MEDS: Ziprasidone Mesylate 20 MG VIAL IM ×2 (00:42→17:28)
[2023-05-24] MEDS: Furosemide 40 MG TABLET PO ×2 (10:16→17:29)
[2023-05-24] MEDS: polyethylene glycoL 3350 17 GM POWD.PACK PO ×3 (10:16→20:23)
[2023-05-24] MEDS: Lidocaine 4 % Patch ADH..PATCH 1 PATCH TRANSDERMA (10:16)
[2023-05-24] MEDS: Simethicone 80 MG TAB.CHEW PO ×3 (10:17→20:24)
[2023-05-24] MEDS: Propranolol HCL LA 60 MG CAP.SA.24H 120 MG PO (10:17)
[2023-05-24] MEDS: clonazePAM 0.5 MG TABLET 1.5 MG PO ×3 (10:17→20:23)
[2023-05-24] MEDS: Divalproex Sodium 500 MG TABLET.DR PO ×3 (10:17→20:24)
[2023-05-24] MEDS: QUEtiapine Fumarate 300 MG TABLET PO ×3 (10:17→20:24)
[2023-05-24] MEDS: Omeprazole 20 MG CAPSULE.DR PO (10:17)
[2023-05-24] MEDS: OXcarbazepine 300 MG TABLET 600 MG PO ×2 (10:17→13:57)
[2023-05-24] MEDS: OLANZapine 7.5 MG TABLET 15 MG PO ×2 (10:18→20:23)
[2023-05-24 10:25] VITALS: BP 126/79; PULSE 85; RESP 18; TEMP 36.1; O2SAT 95
--- NOTE | 2023-05-24 16:37 | P.PNPSI_ITS ---
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 far patient remaining in behavioral control, asking for PRNs. Workplace Rehabilitation Officer discussed medications again with Dr. 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 While droperidol has been using the past for similar situations, patient has Haldol listed as an allergy which has very similar chemical structured true droperidol. 05/16 Continue current regime and plan of care. 05/18: Continue current regimen and plans. Continue to 1 observation 05/19 continue current regimen and plans. Increased Ambien to 10 mg q.h.s. 05/21 patient remains in relatively good behavioral/impulse control and has advancing privileges Continued discussions with [facility] about transfer to [facility] facility 05/22 patient welcomed the news that there is a bed at [facility]; remains in good behavioral control. Privileges advance to axis to the kitchen though not groups yet 05/23/23: Pt is advancing privileges. Daniel Aquino prn x 1. Continue current regime and plan of care. 05/24/23: Pt is attending some groups today. Daniel Aquino prn x 1. Continue current regime and plan of care. States she is excited to transfer to another facility next week. Informed Consent: does not understand Reason for continued inpatient stay Substantial Risk for: harm to self, harm to others, inability to function and rapid decompensation Time Spent With Patient Time: Total time managing care of this patient today ____ minutes.
[2023-05-24 17:32] VITALS: BP 118/65; PULSE 91
[2023-05-24] MEDS: clomiPRAMINE HCl 25 MG CAPSULE 75 MG PO (20:24)
[2023-05-24] MEDS: traZODone HCL 100 MG TABLET PO (20:24)
[2023-05-24] MEDS: Calcium Carbonate 750 MG TAB.CHEW PO (22:30)
[2023-05-25 10:00] VITALS: BP 117/68; PULSE 102; RESP 18; TEMP 35.7; O2SAT 96
[2023-05-25] MEDS: Propranolol HCL LA 60 MG CAP.SA.24H 120 MG PO (11:18)
[2023-05-25] MEDS: polyethylene glycoL 3350 17 GM POWD.PACK PO ×2 (11:18→23:40)
[2023-05-25] MEDS: Simethicone 80 MG TAB.CHEW PO ×3 (11:18→23:39)
[2023-05-25] MEDS: clonazePAM 0.5 MG TABLET 1.5 MG PO ×3 (11:19→23:39)
[2023-05-25] MEDS: Omeprazole 20 MG CAPSULE.DR PO (11:19)
[2023-05-25] MEDS: QUEtiapine Fumarate 300 MG TABLET PO ×3 (11:19→23:38)
[2023-05-25] MEDS: OLANZapine 7.5 MG TABLET 15 MG PO ×2 (11:19→23:37)
[2023-05-25] MEDS: Furosemide 40 MG TABLET PO ×2 (11:19→16:34)
[2023-05-25] MEDS: OXcarbazepine 300 MG TABLET 600 MG PO ×2 (11:19→16:35)
[2023-05-25] MEDS: Divalproex Sodium 500 MG TABLET.DR PO ×3 (11:20→23:39)
[2023-05-25] MEDS: Lidocaine 4 % Patch ADH..PATCH 1 PATCH TRANSDERMA (11:20)
[2023-05-25 16:25] VITALS: BP 122/80; PULSE 84; TEMP 36
--- NOTE | 2023-05-25 18:53 | P.PNPSI_ITS ---
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 mechanical/chemical restraint; later that evening patient was triggered by a provocative peer (who was eventually transferred off the unit); with much difficulty she was able to be redirected 05/15 thus far patient remaining in behavioral control, asking for PRNs. Outpatient Coder discussed medications again with Dr. 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 While droperidol has been using the past for similar situations, patient has Haldol listed as an allergy which has very similar chemical structured true umair peridol. 05/16 Continue current regime and plan of care. 05/18: Continue current regimen and plans. Continue to 1 observation 05/19 continue current regimen and plans. Increased Ambien to 10 mg q.h.s. 05/21 patient remains in relatively good behavioral/impulse control and has advancing privileges Continued discussions with [facility] about transfer to [facility] facility 05/22 patient welcomed the news that there is a bed at [facility]; remains in good behavioral control. Privileges advance to axis to the kitchen though not groups yet 05/23/23: Pt is advancing privileges. Daniel Aquino prn x 1. Continue current regime and plan of care. 05/24/23: Pt is attending some groups today. Daniel Aquino prn x 1. Continue current regime and plan of care. States she is excited to transfer to another facility next week. 05/25/23: Continue regime and plan. Pt attending group today and reports depr ession/anxiety regarding transfer. Informed Consent: understands Reason for continued inpatient stay Substantial Risk for: harm to self, harm to others, inability to function and rapid decompensation Time Spent With Patient Time: Total time managing care of this patient today ____ minutes.
[2023-05-25] MEDS: diazePAM 10 MG/2 ML CARTRIDGE IM (19:00)
[2023-05-25] MEDS: Ziprasidone Mesylate 20 MG VIAL IM (19:00)
--- NOTE | 2023-05-25 19:39 | PC.NURSE ---
At approximately 18:45 PT awoke from nap highly agitated requesting PRN shots . PT accepted verbal de-escalation and attempted to begin eating dinner and then made a phone call to a friend. PT then reported she needed her shots or was going to flip out . PT refused PO meds as they do not work fast enough. Valium 10mg given in the L deltoid, Geodon 20mg given in the R deltoid with positive effect.
[2023-05-25] MEDS: clomiPRAMINE HCl 25 MG CAPSULE 75 MG PO (23:38)
[2023-05-25] MEDS: traZODone HCL 100 MG TABLET PO (23:38)
[2023-05-26] MEDS: Ziprasidone Mesylate 20 MG VIAL IM ×2 (01:33→23:18)
[2023-05-26] MEDS: Midazolam HCl/PF 2 MG/2 ML VIAL 4 MG IM (01:42)
--- NOTE | 2023-05-26 05:45 | PC.NURSE ---
Patient became anxious at 000. Could not sleep, began hyperventilating, hitting herself in the head, asking for IMs. Refused PO. Geodon 20 mg IM in versed 4 mg IM given with good effect. Appeared sleeping rest of shift.
[2023-05-26 10:00] VITALS: BP 128/84; PULSE 100; RESP 18
[2023-05-26] MEDS: polyethylene glycoL 3350 17 GM POWD.PACK PO ×2 (12:46→23:06)
[2023-05-26] MEDS: clonazePAM 0.5 MG TABLET 1.5 MG PO ×3 (12:46→23:06)
[2023-05-26] MEDS: OLANZapine 7.5 MG TABLET 15 MG PO ×2 (12:47→23:04)
[2023-05-26] MEDS: OXcarbazepine 300 MG TABLET 600 MG PO (12:47)
[2023-05-26] MEDS: Propranolol HCL LA 60 MG CAP.SA.24H 120 MG PO (12:47)
[2023-05-26] MEDS: Divalproex Sodium 500 MG TABLET.DR PO ×3 (12:47→23:04)
[2023-05-26] MEDS: QUEtiapine Fumarate 300 MG TABLET PO ×3 (12:47→23:04)
[2023-05-26] MEDS: Furosemide 40 MG TABLET PO (12:47)
[2023-05-26] MEDS: Simethicone 80 MG TAB.CHEW PO ×2 (12:48→23:05)
[2023-05-26] MEDS: Omeprazole 20 MG CAPSULE.DR PO (12:48)
[2023-05-26] MEDS: Lidocaine 4 % Patch ADH..PATCH 1 PATCH TRANSDERMA (12:48)
--- NOTE | 2023-05-26 16:50 | HO.PSYCHPN ---
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 provocative peer (who was eventually transferred off the unit); with much difficulty she was able to be redirected 05/15 thus far patient remaining in behavioral control, asking for PRNs. Geriatric Personal Care Aide discussed medications again with Dr. 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 While droperidol has been using the past for similar situations, patient has Haldol listed as an allergy which has very similar chemical structured true droperidol. 05/16 Continue current regime and plan of care. 05/18: Continue current regimen and plans. Continue to 1 observation 05/19 continue current regimen and plans. Increased Ambien to 10 mg q.h.s. 05/21 patient remains in relatively good behavioral/impulse control and has advancing privileges Continued discussions with [facility] about transfer to [facility] facility 05/22 patient welcomed the news that there is a bed at [facility]; remains in good behavioral control. Privileges advance to axis to the kitchen though not groups yet 05/23/23: Pt is advancing privileges. Daniel Aquino prn x 1. Continue current regime and plan of care. 05/24/23: Pt is attending some groups today. Daniel Aquino prn x 1. Continue current regime and plan of care. States she is excited to transfer to another facility next week. 05/25/23: Continue regime and plan. Pt attending group today and reports depression/anxiety regarding transfer. 05/26/23: Support pt in preparation to transfer. Diagnostics ordered for 05/27/23. Informed Consent: further education needed Reason for continued inpatient stay Substantial Risk for: harm to self, harm to others, inability to function and rapid decompensation Time Spent With Patient Time: Total time managing care of this patient today ____ minutes.
[2023-05-26 22:00] VITALS: BP 126/88; PULSE 84; RESP 18; TEMP 36.6
[2023-05-26] MEDS: traZODone HCL 100 MG TABLET PO (23:04)
[2023-05-26] MEDS: clomiPRAMINE HCl 25 MG CAPSULE 75 MG PO (23:04)
[2023-05-26] MEDS: diazePAM 10 MG/2 ML CARTRIDGE IM (23:18)
[2023-05-27] MEDS: Lidocaine 4 % Cream KIT 1 APPL TOPICAL (08:09)
[2023-05-27 08:46] LABS: Basophils Absolute Auto 0.1 X10*3/uL (0.0-0.2); Basophils Percent Auto 0.6 % (0-2); Eosinophils Absolute Auto 0.5 X10*3/uL (0.0-0.4); Eosinophils Percent Auto 5.9 % (0-4); Hematocrit 44.2 % (37.0-47.0); Hemoglobin 14.3 g/dl (12.0-16.0); Imm Gran Abs Auto 0.02 X10*3/uL (0.00-0.03); Imm Gran Pct Auto 0.3 % (0.0-0.4); Lymphocytes Absolute Auto 4.2 X10*3/uL (1.2-4.9); Lymphocytes Percent Auto 53.7 % (20-40); MANUAL DIFF FLAG NO; Mean Corpuscular HGB Conc 32.4 g/dl (31.0-35.0); Mean Corpuscular Hemoglobin 29.6 pg (27.0-33.0); Mean Corpuscular Volume 91.5 fL (80.0-98.0); Mean Platelet Volume 10.5 fL (9.4-12.3); Monocytes Absolute Auto 0.7 X10*3/uL (0.1-1.2); Neutrophils Absolute Auto 2.4 x10*3/uL (2.0-8.3); Neutrophils Percent Auto 30.5 % (45-73); Platelet Count 228 X10*3/uL (160-400); Red Blood Count 4.83 X10*6/uL (4.20-5.50); White Blood Count 7.8 X10*3/uL (4.8-10.8)
[2023-05-27] MEDS: QUEtiapine Fumarate 300 MG TABLET PO ×3 (08:50→19:31)
[2023-05-27] MEDS: Furosemide 40 MG TABLET PO ×2 (08:50→19:00)
[2023-05-27] MEDS: Propranolol HCL LA 60 MG CAP.SA.24H 120 MG PO (08:50)
[2023-05-27] MEDS: Divalproex Sodium 500 MG TABLET.DR PO ×3 (08:50→19:31)
[2023-05-27] MEDS: OLANZapine 7.5 MG TABLET 15 MG PO ×2 (08:50→19:31)
[2023-05-27] MEDS: clonazePAM 0.5 MG TABLET 1.5 MG PO ×3 (08:50→19:32)
[2023-05-27] MEDS: OXcarbazepine 300 MG TABLET 600 MG PO ×2 (08:50→15:18)
[2023-05-27 09:00] LABS: Estimated Average Glucose 108 mg/dL; Hemoglobin A1c % 5.4 %
--- NOTE | 2023-05-27 09:00 | ECG_ITS ---
Test Reason : QTC CHECK Blood Pressure : / mmHG Vent. Rate : 085 BPM Atrial Rate : 085 BPM P-R Int : 168 ms QRS Dur : 090 ms QT Int : 396 ms P-R-T Axes : 035 059 048 degrees QTc Int : 471 ms Normal sinus rhythm Nonspecific T wave abnormality Prolonged QT Abnormal ECG When compared with ECG of 25-APR-2023 20:19, No significant change was found Referred By: Jessica Holt Electronically Signed By:David Rutherford
[2023-05-27 09:20] LABS: Alanine Aminotransferase 23 U/L (0-31); Albumin Level 4.6 g/dL (3.5-5.0); Alkaline Phosphatase 67 U/L (39-117); Anion Gap 18 (12-20); Aspartate Amino Transferase 28 U/L (5-31); Bilirubin Total 0.2 mg/dL (0.0-1.0); Blood Urea Nitrogen 24 mg/dL (9-16); Calcium 10.2 mg/dL (8.4-10.2); Carbon Dioxide 23 mmol/L (22-29); Chloride 102 mmol/L (96-108); Cholesterol 259 mg/dL; Creatinine Clr Calc Pharmacy 169.2; Estimated Glomerular Filt Rate > 60; Glucose Random 95 mg/dL (60-115); HDL Cholesterol 36 mg/dL; Potassium 4.1 mmol/L (3.3-5.1); Sodium 139 mmol/L (135-145); Total Protein 8.7 g/dL (6.5-8.0); Triglycerides 401 mg/dL
[2023-05-27 09:34] LABS: Thyroid Stimulating Hormone 8.32 uIU/mL (0.32-4.0)
[2023-05-27 09:36] LABS: Folate 12.9 ng/mL (> or = 4.0); Vitamin B12 532 pg/mL (200-900)
[2023-05-27 10:00] VITALS: BP 126/81; PULSE 90; RESP 18; TEMP 36.6; O2SAT 94
[2023-05-27] MEDS: Omeprazole 20 MG CAPSULE.DR PO (10:25)
[2023-05-27] MEDS: Simethicone 80 MG TAB.CHEW PO ×2 (15:18→19:38)
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
[2023-05-27] MEDS: clomiPRAMINE HCl 25 MG CAPSULE 75 MG PO (19:32)
[2023-05-27] MEDS: traZODone HCL 100 MG TABLET PO (19:32)
[2023-05-27] MEDS: polyethylene glycoL 3350 17 GM POWD.PACK PO (19:32)
[2023-05-28] MEDS: diazePAM 10 MG/2 ML CARTRIDGE IM ×2 (02:01→15:12)
[2023-05-28] MEDS: Ziprasidone Mesylate 20 MG VIAL IM ×2 (02:03→15:12)
--- NOTE | 2023-05-28 11:50 | P.PNPSI_ITS ---
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 conversations with ad ministrative staff, [facility] and DDS. ?Efforts are being made for patient to be transferred to a [facility] facility Hospital Course: 05/09 remains in behavioral control Patient is constipated and receiving treatment However patient complains of worsening abdominal pain; discussed with staff and on-call provider to be aware Currently labs and vitals all WNL 05/10 pt reports constipation some abdominal cramping- simethicone added- pending effect, afebrile, no signs of infection (no leukocytosis), seen by hospitalist. KUB not showing obstruction but does show moderate constipation. May want to recheck TSH and treat if elevated. Pt remains in behavioral concerns. 05/11: Modified bowel regimen. DC Lactulose. Miralax BID rather than QID. 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 Superintendent Tests discussed medications again with Dr. 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 While droperidol has been using the past for similar situations, patient has Haldol listed as an allergy which has very similar chemical structured true droperidol. 05/16 Continue current regime and plan of care. 05/18: Continue current regimen and plans. Continue to 1 observation 05/19 continue current regimen and plans. Increased Ambien to 10 mg q.h.s. 05/21 patient remains in relatively good behavioral/impulse control and has advancing privileges Continued discussions with [facility] about transfer to [facility] facility 05/22 patient welcomed the news that there is a bed at [facility]; remains in good behavioral control. Privileges advance to axis to the kitchen though not groups yet 05/23/23: Pt is advancing privileges. Daniel Aquino prn x 1. Continue current regime and plan of care. 05/24/23: Pt is attending some groups today. Daniel Aquino prn x 1. Continue current regime and plan of care. States she is excited to transfer to another facility next week. 05/25/23: Continue regime and plan. Pt attending group today and reports depression/anxiety regarding transfer. 05/26/23: Support pt in preparation to transfer. Diagnostics ordered for 05/27/23. 05/27 continue tx. 05/28 Diagnostics pre transfer completed, reviewed. Levothyroxine 25 mcg daily Lipitor 20 mg hs Informed Consent: further education needed Reason for continued inpatient stay Substantial Risk for: rapid decompensation Time Spent With Patient Time: Total time managing care of this patient today ____ minutes.
[2023-05-28 12:54] VITALS: BP 124/71; PULSE 93; RESP 16; TEMP 36.7; O2SAT 95
--- NOTE | 2023-05-28 12:54 | PC.NURSE ---
pt slept until approximately 1230pm, refused to wake for breakfast or AM medication. pt receptive to having vitals take during lunch along w/ medication.
[2023-05-28] MEDS: Simethicone 80 MG TAB.CHEW PO ×2 (13:01→21:48)
[2023-05-28] MEDS: OXcarbazepine 300 MG TABLET 600 MG PO ×2 (13:01→19:16)
[2023-05-28] MEDS: Omeprazole 20 MG CAPSULE.DR PO (13:01)
[2023-05-28] MEDS: OLANZapine 7.5 MG TABLET 15 MG PO ×2 (13:01→21:49)
[2023-05-28] MEDS: Furosemide 40 MG TABLET PO ×2 (13:02→19:16)
[2023-05-28] MEDS: polyethylene glycoL 3350 17 GM POWD.PACK PO ×2 (13:02→21:48)
[2023-05-28] MEDS: Divalproex Sodium 500 MG TABLET.DR PO ×2 (13:02→21:49)
[2023-05-28] MEDS: QUEtiapine Fumarate 300 MG TABLET PO ×2 (13:02→21:49)
[2023-05-28] MEDS: Lidocaine 4 % Patch ADH..PATCH 1 PATCH TRANSDERMA (13:03)
[2023-05-28] MEDS: Ziprasidone 20 MG CAPSULE PO (13:10)
[2023-05-28] MEDS: diazePAM 5 MG TABLET 10 MG PO ×2 (13:10→21:49)
[2023-05-28] MEDS: Propranolol HCL LA 60 MG CAP.SA.24H 120 MG PO (13:15)
[2023-05-28 20:08] VITALS: BP 139/76; PULSE 88; RESP 16; TEMP 36.3; O2SAT 98
[2023-05-28] MEDS: ALPRAZolam 0.5 MG TABLET PO (21:48)
[2023-05-28] MEDS: clomiPRAMINE HCl 25 MG CAPSULE 75 MG PO (21:49)
[2023-05-28] MEDS: Atorvastatin Calcium 20 MG TABLET PO (21:49)
[2023-05-28] MEDS: traZODone HCL 100 MG TABLET PO (21:49)
[2023-05-29] MEDS: Zolpidem Tartrate 5 MG TABLET 10 MG PO (00:10)
[2023-05-29] MEDS: Ziprasidone 20 MG CAPSULE PO (00:11)
[2023-05-29] MEDS: OLANZapine 7.5 MG TABLET 15 MG PO ×2 (14:01→21:29)
[2023-05-29] MEDS: Propranolol HCL LA 60 MG CAP.SA.24H 120 MG PO (14:01)
[2023-05-29] MEDS: polyethylene glycoL 3350 17 GM POWD.PACK PO ×2 (14:01→21:29)
[2023-05-29] MEDS: Omeprazole 20 MG CAPSULE.DR PO (14:02)
[2023-05-29] MEDS: QUEtiapine Fumarate 300 MG TABLET PO ×3 (14:02→21:29)
[2023-05-29] MEDS: Simethicone 80 MG TAB.CHEW PO ×3 (14:02→21:29)
[2023-05-29] MEDS: OXcarbazepine 300 MG TABLET 600 MG PO ×2 (14:02→15:47)
[2023-05-29] MEDS: Furosemide 40 MG TABLET PO ×2 (14:02→15:48)
[2023-05-29] MEDS: Divalproex Sodium 500 MG TABLET.DR PO ×3 (14:02→21:30)
[2023-05-29 14:41] VITALS: BP 142/70; PULSE 104; RESP 16; TEMP 36.5; O2SAT 97
--- NOTE | 2023-05-29 15:36 | P.PNPSI_ITS ---
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 with a spoon, needed mechanical/chemical restraint; calm down but again got dysregulated, tried to cut her arm with another plastic piece and required mechanical/chemical restraint; later that evening patient was triggered by a provocative peer (who was eventually transferred off the unit); with much difficulty she was able to be redirected 05/15 thus far patient remaining in behavioral control, asking for PRNs. Marketing Analytics Specialist discussed medications again with Dr. 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 While droperidol has been using the past for similar situations, patient has Haldol listed as an allergy which has very similar chemical structured true droperidol. 05/16 Continue current regime and plan of care. 05/18: Continue current regimen and plans. Continue to 1 observation 05/19 continue current regimen and plans. Increased Ambien to 10 mg q.h.s. 05/21 patient remains in relatively good behavioral/impulse control and has advancing privileges Continued discussions with [facility] about transfer to [facility] facility 05/22 patient welcomed the news that there is a bed at [facility]; remains in good behavioral control. Privileges advance to axis to the kitchen though not groups yet 05/23/23: Pt is advancing privileges. Daniel Aquino prn x 1. Continue current regime and plan of care. 05/24/23: Pt is attending some groups today. Daniel Aquino prn x 1. Continue current regime and plan of care. States she is excited to transfer to another facility next week. 05/25/23: Continue regime and plan. Pt attending group today and reports depression/anxiety regarding transfer. 05/26/23: Support pt in preparation to transfer. Diagnostics ordered for 05/27/23. 05/27 continue tx. 05/28 Diagnostics pre transfer completed, reviewed. Levothyroxine 25 mcg daily Lipitor 20 mg hs 05/29/23 Support pt in transition. Informed Consent: further education needed Reason for continued inpatient stay Substantial Risk for: rapid decompensation Time Spent With Patient Time: Total time managing care of this patient today ____ minutes.
[2023-05-29 19:46] VITALS: BP 140/79; PULSE 91; TEMP 36.6
[2023-05-29] MEDS: traZODone HCL 100 MG TABLET PO (21:30)
[2023-05-29] MEDS: clomiPRAMINE HCl 25 MG CAPSULE 75 MG PO (21:30)
[2023-05-29] MEDS: Atorvastatin Calcium 20 MG TABLET PO (21:30)
[2023-05-30 10:42] VITALS: BP 96/57; PULSE 75; RESP 16; TEMP 36.2; O2SAT 97
[2023-05-30] MEDS: polyethylene glycoL 3350 17 GM POWD.PACK PO ×2 (10:56→23:34)
[2023-05-30] MEDS: Omeprazole 20 MG CAPSULE.DR PO (11:00)
[2023-05-30] MEDS: Simethicone 80 MG TAB.CHEW PO ×3 (11:00→23:33)
[2023-05-30] MEDS: QUEtiapine Fumarate 300 MG TABLET PO ×3 (11:00→23:32)
[2023-05-30] MEDS: OXcarbazepine 300 MG TABLET 600 MG PO ×2 (11:00→14:28)
[2023-05-30] MEDS: Divalproex Sodium 500 MG TABLET.DR PO ×3 (11:01→23:33)
[2023-05-30] MEDS: Furosemide 40 MG TABLET PO ×2 (11:01→18:01)
[2023-05-30] MEDS: Levothyroxine Sodium 25 MCG TABLET PO (11:07)
[2023-05-30] MEDS: OLANZapine 7.5 MG TABLET 15 MG PO ×2 (11:16→23:31)
[2023-05-30] MEDS: Lidocaine 4 % Patch ADH..PATCH 1 PATCH TRANSDERMA (12:14)
--- NOTE | 2023-05-30 13:01 | HO.PSYCHPN ---
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 down but again got dysregulated, tried to cut her arm with another plastic piece and required mechanical/chemical restraint; later that evening patient was triggered by a provocative peer (who was eventually transferred off the unit); with much difficulty she was able to be redirected 05/15 thus far patient remaining in behavioral control, asking for PRNs. [employer] discussed medications again with Dr. 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 While droperidol has been using the past for similar situations, patient has Haldol listed as an allergy which has very similar chemical structured true droperidol. 05/16 Continue current regime and plan of care. 05/18: Continue current regimen and plans. Continue to 1 observation 05/19 continue current regimen and plans. Increased Ambien to 10 mg q.h.s. 05/21 patient remains in relatively good behavioral/impulse control and has advancing privileges Continued discussions with [facility] about transfer to [facility] facility 05/22 patient welcomed the news that there is a bed at [facility]; remains in good behavioral control. Privileges advance to axis to the kitchen though not groups yet 05/23/23: Pt is advancing privileges. Daniel Aquino prn x 1. Continue current regime and plan of care. 05/24/23: Pt is attending some groups today. Daniel Aquino prn x 1. Continue current regime and plan of care. States she is excited to transfer to another facility next week. 05/25/23: Continue regime and plan. Pt attending group today and reports depression/anxiety regarding transfer. 05/26/23: Support pt in preparation to transfer. Diagnostics ordered for 05/27/23. 05/27 continue tx. 05/28 Diagnostics pre transfer completed, reviewed. Levothyroxine 25 mcg daily Lipitor 20 mg hs 05/29/23 Support pt in transition. 05/30/23 Reports feeling dizzy, thirsty, with decrease in appetite and diaphoretic. Diagnostics Decrease Levothyroxine to 12.5 mcg daily Decrease Atorvastatin to 10 mg daily Informed Consent: does not understand and further education needed Reason for continued inpatient stay Substantial Risk for: rapid decompensation Time Spent With Patient Time: Total time managing care of this patient today ____ minutes.
[2023-05-30 15:32] LABS: MANUAL DIFF FLAG NO
[2023-05-30 16:19] LABS: Basophils Percent Auto 0.4 % (0-2); Eosinophils Absolute Auto 0.4 X10*3/uL (0.0-0.4); Eosinophils Percent Auto 5.8 % (0-4); Hematocrit 38.6 % (37.0-47.0); Hemoglobin 12.5 g/dl (12.0-16.0); Imm Gran Abs Auto 0.01 X10*3/uL (0.00-0.03); Imm Gran Pct Auto 0.1 % (0.0-0.4); Lymphocytes Absolute Auto 3.3 X10*3/uL (1.2-4.9); Lymphocytes Percent Auto 49.3 % (20-40); Mean Corpuscular HGB Conc 32.4 g/dl (31.0-35.0); Mean Corpuscular Hemoglobin 29.9 pg (27.0-33.0); Mean Corpuscular Volume 92.3 fL (80.0-98.0); Mean Platelet Volume 11.3 fL (9.4-12.3); Monocytes Percent Auto 15.1 % (2-11); Neutrophils Percent Auto 29.3 % (45-73); Platelet Count 207 X10*3/uL (160-400); Red Blood Count 4.18 X10*6/uL (4.20-5.50); Red Cell Distribution Width 13.2 % (11.0-16.0); White Blood Count 6.7 X10*3/uL (4.8-10.8)
[2023-05-30 16:33] LABS: Estimated Average Glucose 108 mg/dL; Hemoglobin A1c % 5.4 %
[2023-05-30 17:11] LABS: Alanine Aminotransferase 19 U/L (0-31); Albumin Level 3.9 g/dL (3.5-5.0); Alkaline Phosphatase 56 U/L (39-117); Anion Gap 11 (12-20); Aspartate Amino Transferase 23 U/L (5-31); Bilirubin Total 0.5 mg/dL (0.0-1.0); Blood Urea Nitrogen 17 mg/dL (9-16); Calcium 9.7 mg/dL (8.4-10.2); Carbon Dioxide 26 mmol/L (22-29); Chloride 104 mmol/L (96-108); Creatinine Clr Calc Pharmacy 181.2; Estimated Glomerular Filt Rate > 60; Glucose Random 69 mg/dL (60-115); Sodium 137 mmol/L (135-145); Total Protein 7.5 g/dL (6.5-8.0)
[2023-05-30 17:21] LABS: Thyroid Stimulating Hormone 3.44 uIU/mL (0.32-4.0)
[2023-05-30 22:00] VITALS: BP 136/2; PULSE 91; TEMP 36.2; O2SAT 96
[2023-05-30] MEDS: clomiPRAMINE HCl 25 MG CAPSULE 75 MG PO (23:29)
[2023-05-30] MEDS: Atorvastatin Calcium 10 MG TABLET PO (23:34)
[2023-05-30] MEDS: traZODone HCL 100 MG TABLET PO (23:34)
[2023-05-31] MEDS: Zolpidem Tartrate 5 MG TABLET 10 MG PO ×2 (02:15→20:44)
[2023-05-31] MEDS: Levothyroxine Sodium 25 MCG TABLET 12.5 MCG PO (06:31)
[2023-05-31 08:56] VITALS: BP 104/62; PULSE 82; RESP 16; TEMP 36.2; O2SAT 95
[2023-05-31] MEDS: polyethylene glycoL 3350 17 GM POWD.PACK PO ×2 (08:56→20:44)
[2023-05-31] MEDS: OXcarbazepine 300 MG TABLET 600 MG PO ×2 (08:56→16:18)
[2023-05-31] MEDS: Simethicone 80 MG TAB.CHEW PO ×3 (08:56→20:48)
[2023-05-31] MEDS: OLANZapine 7.5 MG TABLET 15 MG PO ×2 (08:56→20:45)
[2023-05-31] MEDS: Furosemide 40 MG TABLET PO ×3 (08:57→16:18)
[2023-05-31] MEDS: QUEtiapine Fumarate 300 MG TABLET PO ×3 (08:57→20:45)
[2023-05-31] MEDS: Omeprazole 20 MG CAPSULE.DR PO (08:57)
[2023-05-31] MEDS: Divalproex Sodium 500 MG TABLET.DR PO ×3 (08:57→20:44)
[2023-05-31] MEDS: Propranolol HCL LA 60 MG CAP.SA.24H 120 MG PO (08:57)
--- NOTE | 2023-05-31 12:18 | P.PNPSI_ITS ---
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 constipation some abdominal cramping- simethicone added- pending effect, afebrile, no signs of infection (no leukocytosis), seen by hospitalist. KUB not showing obstruction but does show moderate constipation. May want to recheck TSH and treat if elevated. Pt remains in behavioral concerns. 05/11: Modified bowel regimen. DC Lactulose. Miralax BID rather than QID. 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 While droperidol has been using the past for similar situations, patient has Haldol listed as an allergy which has very similar chemical structured true droperidol. 05/16 Continue current regime and plan of care. 05/18: Continue current regimen and plans. Continue to 1 observation 05/19 continue current regimen and plans. Increased Ambien to 10 mg q.h.s. 05/21 patient remains in relatively good behavioral/impulse control and has advancing privileges Continued discussions with [facility] about transfer to [facility] facility 05/22 patient welcomed the news that there is a bed at [facility]; remains in good behavioral control. Privileges advance to axis to the kitchen though not groups yet 05/23/23: Pt is advancing privileges. Daniel Aquino prn x 1. Continue current regime and plan of care. 05/24/23: Pt is attending some groups today. Daniel Aquino prn x 1. Continue current regime and plan of care. States she is excited to transfer to another facility next week. 05/25/23: Continue regime and plan. Pt attending group today and reports depression/anxiety regarding transfer. 05/26/23: Support pt in preparation to transfer. Diagnostics ordered for 05/27/23. 05/27 continue tx. 05/28 Diagnostics pre transfer completed, reviewed. Levothyroxine 25 mcg daily Lipitor 20 mg hs 05/29/23 Support pt in transition. 05/30/23 Reports feeling dizzy, thirsty, with decrease in appetite and diaphoretic. Diagnostics Decrease Levothyroxine to 12.5 mcg daily Decrease Atorvastatin to 10 mg daily 05/31/23 TSH is now WNL Continue current regime and plan. Informed Consent: does not understand Reason for continued inpatient stay Substantial Risk for: harm to others and rapid decompensation Time Spent With Patient Time: Total time managing care of this patient today ____ minutes.
[2023-05-31] MEDS: Ziprasidone Mesylate 20 MG VIAL IM ×2 (16:17→22:07)
[2023-05-31] MEDS: diazePAM 10 MG/2 ML CARTRIDGE IM ×2 (16:18→22:08)
[2023-05-31] MEDS: bisacodyL 5 MG TABLET.DR PO (18:43)
--- NOTE | 2023-05-31 20:12 | PC.NURSE ---
pt has extremely loose upper left canine tooth; denies pain or discomfort.
[2023-05-31] MEDS: traZODone HCL 100 MG TABLET PO (20:44)
[2023-05-31] MEDS: clomiPRAMINE HCl 25 MG CAPSULE 75 MG PO (20:44)
[2023-05-31] MEDS: Ondansetron ODT 4 MG TAB.RAPDIS TRANSLINGU (20:45)
[2023-05-31] MEDS: Calcium Carbonate 750 MG TAB.CHEW PO (20:45)
[2023-05-31 22:00] VITALS: BP 124/80; PULSE 90; RESP 18; TEMP 36.7; O2SAT 97
[2023-05-31] MEDS: Atorvastatin Calcium 10 MG TABLET PO (23:18)
[2023-06-01] MEDS: NaPROXEN 500 MG TABLET PO (06:58)
[2023-06-01] MEDS: Levothyroxine Sodium 25 MCG TABLET 12.5 MCG PO (06:59)
[2023-06-01] MEDS: polyethylene glycoL 3350 17 GM POWD.PACK PO ×2 (08:14→22:30)
[2023-06-01] MEDS: Fluticasone Propionate Nasal 16 GM SPRAY 1 SPRAY NOSTRIL-B (08:19)
[2023-06-01] MEDS: Propranolol HCL LA 60 MG CAP.SA.24H 120 MG PO (08:20)
[2023-06-01] MEDS: OLANZapine 7.5 MG TABLET 15 MG PO ×2 (08:20→22:31)
[2023-06-01] MEDS: Lidocaine 4 % Patch ADH..PATCH 1 PATCH TRANSDERMA (08:20)
[2023-06-01] MEDS: Furosemide 40 MG TABLET PO (08:21)
[2023-06-01] MEDS: QUEtiapine Fumarate 300 MG TABLET PO ×3 (08:21→22:31)
[2023-06-01] MEDS: OXcarbazepine 300 MG TABLET 600 MG PO ×2 (08:21→15:08)
[2023-06-01] MEDS: Omeprazole 20 MG CAPSULE.DR PO (08:21)
[2023-06-01] MEDS: Divalproex Sodium 500 MG TABLET.DR PO ×3 (08:21→22:31)
[2023-06-01] MEDS: Simethicone 80 MG TAB.CHEW PO ×2 (08:21→22:33)
[2023-06-01 08:27] VITALS: BP 127/82; PULSE 89; RESP 16; TEMP 36.1; O2SAT 96
[2023-06-01] MEDS: Acetaminophen 325 MG TABLET 650 MG PO (09:26)
[2023-06-01] MEDS: Calcium Carbonate 750 MG TAB.CHEW PO (09:26)
--- NOTE | 2023-06-01 10:01 | HO.PSYCHPN ---
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 05/09 remains in behavioral control Patient is constipated and receiving treatment However patient complains of worsening abdominal pain; discussed with staff and on-call provider to be aware Currently labs and vitals all WNL 05/10 pt reports constipation some abdominal cramping- simethicone added- pending effect, afebrile, no signs of infection (no leukocytosis), seen by hospitalist. KUB not showing obstruction but does show moderate constipation. May want to recheck TSH and treat if elevated. Pt remains in behavioral concerns. 05/11: Modified bowel regimen. DC Lactulose. Miralax BID rather than QID. 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 Video Production Assistant discussed medications again with Dr. 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 While droperidol has been using the past for similar situations, patient has Haldol listed as an allergy which has very similar chemical structured true droperidol. 05/16 Continue current regime and plan of care. 05/18: Continue current regimen and plans. Continue to 1 observation 05/19 continue current regimen and plans. Increased Ambien to 10 mg q.h.s. 05/21 patient remains in relatively good behavioral/impulse control and has advancing privileges Continued discussions with [facility] about transfer to [facility] facility 05/22 patient welcomed the news that there is a bed at [facility]; remains in good behavioral control. Privileges advance to axis to the kitchen though not groups yet 05/23/23: Pt is advancing privileges. Daniel Aquino prn x 1. Continue current regime and plan of care. 05/24/23: Pt is attending some groups today. Carmen Aquinoium prn x 1. Continue current regime and plan of care. States she is excited to transfer to another facility next week. 05/25/23: Continue regime and plan. Pt attending group today and reports depression/anxiety regarding transfer. 05/26/23: Support pt in preparation to transfer. Diagnostics ordered for 05/27/23. 05/27 continue tx. 05/28 Diagnostics pre transfer completed, reviewed. Levothyroxine 25 mcg daily Lipitor 20 mg hs 05/29/23 Support pt in transition. 05/30/23 Reports feeling dizzy, thirsty, with decrease in appetite and diaphoretic. Diagnostics Decrease Levothyroxine to 12.5 mcg daily Decrease Atorvastatin to 10 mg daily 05/31/23 TSH is now WNL Continue current regime and plan. 05/1223 the patient complains of nausea, poor appetite for the last 2 days and headaches. She had fused PRNs. I am ordering CBC with differential and comprehensive metabolic panel. I am starting Xanax up to 0.25 bid schedule, first dose now. Reason for continued inpatient stay Substantial Risk for: harm to others, inability to function, rapid decompensation and med/psych decompensation Time Spent With Patient Time: Total time managing care of this patient today _20___ minutes.
[2023-06-01] MEDS: ALPRAZolam 0.5 MG TABLET PO ×2 (10:18→15:08)
[2023-06-01 15:59] LABS: MANUAL DIFF FLAG NO
[2023-06-01 16:07] LABS: Basophils Percent Auto 0.5 % (0-2); Eosinophils Absolute Auto 0.3 X10*3/uL (0.0-0.4); Eosinophils Percent Auto 3.9 % (0-4); Hematocrit 40.3 % (37.0-47.0); Hemoglobin 13.3 g/dl (12.0-16.0); Imm Gran Abs Auto 0.02 X10*3/uL (0.00-0.03); Imm Gran Pct Auto 0.3 % (0.0-0.4); Lymphocytes Absolute Auto 3.5 X10*3/uL (1.2-4.9); Lymphocytes Percent Auto 47.1 % (20-40); Mean Corpuscular Hemoglobin 30.3 pg (27.0-33.0); Mean Corpuscular Volume 91.8 fL (80.0-98.0); Mean Platelet Volume 11.1 fL (9.4-12.3); Monocytes Absolute Auto 0.7 X10*3/uL (0.1-1.2); Monocytes Percent Auto 9.4 % (2-11); Neutrophils Absolute Auto 2.9 x10*3/uL (2.0-8.3); Neutrophils Percent Auto 38.8 % (45-73); Platelet Count 198 X10*3/uL (160-400); Red Blood Count 4.39 X10*6/uL (4.20-5.50); Red Cell Distribution Width 13.2 % (11.0-16.0); White Blood Count 7.5 X10*3/uL (4.8-10.8)
[2023-06-01 16:25] LABS: Alanine Aminotransferase 20 U/L (0-31); Albumin Level 3.9 g/dL (3.5-5.0); Alkaline Phosphatase 55 U/L (39-117); Anion Gap 15 (12-20); Aspartate Amino Transferase 25 U/L (5-31); Bilirubin Total 0.3 mg/dL (0.0-1.0); Blood Urea Nitrogen 16 mg/dL (9-16); Calcium 9.7 mg/dL (8.4-10.2); Carbon Dioxide 23 mmol/L (22-29); Chloride 105 mmol/L (96-108); Creatinine Clr Calc Pharmacy 179.1; Estimated Glomerular Filt Rate > 60; Glucose Fasting 100 mg/dL (60-99); Potassium 4.7 mmol/L (3.3-5.1); Sodium 138 mmol/L (135-145); Total Protein 7.5 g/dL (6.5-8.0)
[2023-06-01 22:00] VITALS: RESP 16
[2023-06-01] MEDS: clomiPRAMINE HCl 25 MG CAPSULE 75 MG PO (22:31)
[2023-06-01] MEDS: traZODone HCL 100 MG TABLET PO (22:32)
[2023-06-01] MEDS: ALPRAZolam 0.25 MG TABLET PO (22:32)
[2023-06-01] MEDS: Atorvastatin Calcium 10 MG TABLET PO (22:32)
[2023-06-02] MEDS: Ziprasidone 20 MG CAPSULE PO ×2 (03:16→19:55)
[2023-06-02] MEDS: diazePAM 5 MG TABLET 10 MG PO ×2 (03:16→19:55)
[2023-06-02] MEDS: ALPRAZolam 0.5 MG TABLET PO ×2 (03:16→13:36)
[2023-06-02] MEDS: Zolpidem Tartrate 5 MG TABLET 10 MG PO (03:36)
--- NOTE | 2023-06-02 12:01 | P.PNPSI_ITS ---
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 concerns. 05/11: Modified bowel regimen. DC Lactulose. Miralax BID rather than QID. 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 While droperidol has been using the past for similar situations, patient has Haldol listed as an allergy which has very similar chemical structured true droperidol. 05/16 Continue current regime and plan of care. 05/18: Continue current regimen and plans. Continue to 1 observation 05/19 continue current regimen and plans. Increased Ambien to 10 mg q.h.s. 05/21 patient remains in relatively good behavioral/impulse control and has advancing privileges Continued discussions with [facility] about transfer to [facility] facility 05/22 patient welcomed the news that there is a bed at [facility]; remains in good behavioral control. Privileges advance to axis to the kitchen though not groups yet 05/23/23: Pt is advancing privileges. Daniel Aquino prn x 1. Continue current regime and plan of care. 05/24/23: Pt is attending some groups today. Daniel Aquino prn x 1. Continue current regime and plan of care. States she is excited to transfer to another facility next week. 05/25/23: Continue regime and plan. Pt attending group today and reports depression/anxiety regarding transfer. 05/26/23: Support pt in preparation to transfer. Diagnostics ordered for 05/27/23. 05/27 continue tx. 05/28 Diagnostics pre transfer completed, reviewed. Levothyroxine 25 mcg daily Lipitor 20 mg hs 05/29/23 Support pt in transition. 05/30/23 Reports feeling dizzy, thirsty, with decrease in appetite and diaphoretic. Diagnostics Decrease Levothyroxine to 12.5 mcg daily Decrease Atorvastatin to 10 mg daily 05/31/23 TSH is now WNL Continue current regime and plan. 05/1223 the patient complains of nausea, poor appetite for the last 2 days and headaches. She had fused PRNs. I am ordering CBC with differential and comprehensive metabolic panel. I am starting Xanax up to 0.25 bid schedule, first dose now. 06/02 Keep same treatment. Reason for continued inpatient stay Substantial Risk for: inability to function, rapid decompensation and med/psych decompensation Time Spent With Patient Time: Total time managing care of this patient today __20__ minutes.
[2023-06-02] MEDS: polyethylene glycoL 3350 17 GM POWD.PACK PO ×2 (13:31→22:29)
[2023-06-02 13:35] VITALS: BP 128/86; PULSE 83; RESP 16; TEMP 36; O2SAT 96
[2023-06-02] MEDS: Omeprazole 20 MG CAPSULE.DR PO (13:35)
[2023-06-02] MEDS: QUEtiapine Fumarate 300 MG TABLET PO ×2 (13:35→22:30)
[2023-06-02] MEDS: Propranolol HCL LA 60 MG CAP.SA.24H 120 MG PO (13:35)
[2023-06-02] MEDS: OLANZapine 7.5 MG TABLET 15 MG PO ×2 (13:35→22:30)
[2023-06-02] MEDS: OXcarbazepine 300 MG TABLET 600 MG PO (13:35)
[2023-06-02] MEDS: Furosemide 40 MG TABLET PO ×2 (13:36→16:26)
[2023-06-02] MEDS: Divalproex Sodium 500 MG TABLET.DR PO ×2 (13:36→22:29)
[2023-06-02] MEDS: Simethicone 80 MG TAB.CHEW PO ×3 (13:36→22:29)
[2023-06-02] MEDS: Levothyroxine Sodium 25 MCG TABLET 12.5 MCG PO (13:36)
[2023-06-02 17:00] VITALS: BP 130/84; PULSE 90; TEMP 36.2; O2SAT 98
[2023-06-02] MEDS: clomiPRAMINE HCl 25 MG CAPSULE 75 MG PO (22:29)
[2023-06-02] MEDS: ALPRAZolam 0.25 MG TABLET PO (22:29)
[2023-06-02] MEDS: traZODone HCL 100 MG TABLET PO (22:30)
[2023-06-02] MEDS: Atorvastatin Calcium 10 MG TABLET PO (22:30)
[2023-06-03] MEDS: Levothyroxine Sodium 25 MCG TABLET 12.5 MCG PO (06:32)
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
[2023-06-03] MEDS: ALPRAZolam 0.25 MG TABLET PO (10:42)
[2023-06-03] MEDS: polyethylene glycoL 3350 17 GM POWD.PACK PO ×2 (10:42→23:11)
[2023-06-03] MEDS: Divalproex Sodium 500 MG TABLET.DR PO ×3 (10:43→23:14)
[2023-06-03] MEDS: OXcarbazepine 300 MG TABLET 600 MG PO ×2 (10:43→16:56)
[2023-06-03] MEDS: Simethicone 80 MG TAB.CHEW PO ×4 (10:43→23:17)
[2023-06-03] MEDS: Furosemide 40 MG TABLET PO ×2 (10:44→16:57)
[2023-06-03] MEDS: QUEtiapine Fumarate 300 MG TABLET PO ×3 (10:44→23:16)
[2023-06-03] MEDS: OLANZapine 7.5 MG TABLET 15 MG PO ×2 (10:44→23:14)
[2023-06-03] MEDS: Omeprazole 20 MG CAPSULE.DR PO (10:45)
[2023-06-03] MEDS: Propranolol HCL LA 60 MG CAP.SA.24H 120 MG PO (10:48)
[2023-06-03] MEDS: Lidocaine 4 % Patch ADH..PATCH 1 PATCH TRANSDERMA (11:16)
[2023-06-03] MEDS: Ziprasidone 20 MG CAPSULE PO (13:06)
[2023-06-03] MEDS: diazePAM 5 MG TABLET 10 MG PO (13:06)
--- NOTE | 2023-06-03 13:15 | PC.NURSE ---
pt requested prn Geodon and Valium IM due to feeling anxious and annoyed . When IM medication was brought to pt she declined and said she felt better and would like to receive PO medication instead. PO Geodon and Valium administered. Pt laidin bed to nap w/out incident.
[2023-06-03 16:50] VITALS: BP 113/71; PULSE 65; TEMP 36.7
[2023-06-03] MEDS: diazePAM 2 MG TABLET PO ×2 (16:56→23:18)
[2023-06-03] MEDS: clomiPRAMINE HCl 25 MG CAPSULE 75 MG PO (23:12)
[2023-06-03] MEDS: Zolpidem Tartrate 5 MG TABLET 10 MG PO (23:12)
[2023-06-03] MEDS: Atorvastatin Calcium 10 MG TABLET PO (23:12)
[2023-06-03] MEDS: traZODone HCL 100 MG TABLET PO (23:14)
[2023-06-04 10:00] VITALS: BP 135/83; PULSE 83; RESP 16; TEMP 36.2; O2SAT 98
--- NOTE | 2023-06-04 10:06 | P.PNPSI_ITS ---
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 today, utilizing PRNs frequently -invoking HCP (see above) 05/14 patient dysregulated, through lunch at [employer]; than tried to cut her arms with a spoon, needed mechanical/chemical restraint; calm down but again got dysregulated, tried to cut her arm with another plastic piece and required mechanical/chemical restraint; later that evening patient was triggered by a provocative peer (who was eventually transferred off the unit); with much difficulty she was able to be redirected 05/15 thus far patient remaining in behavioral control, asking for PRNs. [employer] discussed medications again with Dr. 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 While droperidol has been using the past for similar situations, patient has Haldol listed as an allergy which has very similar chemical structured true droperidol. 05/16 Continue current regime and plan of care. 05/18: Continue current regimen and plans. Continue to 1 observation 05/19 continue current regimen and plans. Increased Ambien to 10 mg q.h.s. 05/21 patient remains in relatively good behavioral/impulse control and has adv ancing privileges Continued discussions with [facility] about transfer to [facility] facility 05/22 patient welcomed the news that there is a bed at [facility]; remains in good behavioral control. Privileges advance to axis to the kitchen though not groups yet 05/23/23: Pt is advancing privileges. Carmen Aquinoium prn x 1. Continue current regime and plan of care. 05/24/23: Pt is attending some groups today. Daniel Aquino prn x 1. Continue current regime and plan of care. States she is excited to transfer to another facility next week. 05/25/23: Continue regime and plan. Pt attending group today and reports depression/anxiety regarding transfer. 05/26/23: Support pt in preparation to transfer. Diagnostics ordered for 05/27/23. 05/27 continue tx. 05/28 Diagnostics pre transfer completed, reviewed. Levothyroxine 25 mcg daily Lipitor 20 mg hs 05/29/23 Support pt in transition. 05/30/23 Reports feeling dizzy, thirsty, with decrease in appetite and diaphoretic. Diagnostics Decrease Levothyroxine to 12.5 mcg daily Decrease Atorvastatin to 10 mg daily 05/31/23 TSH is now WNL Continue current regime and plan. 05/1223 the patient complains of nausea, poor appetite for the last 2 days and headaches. She had fused PRNs. I am ordering CBC with differential and comprehensive metabolic panel. I am starting Xanax up to 0.25 bid schedule, first dose now. 06/02 Keep same treatment. 06/03 likely nausea, poor appetite and headaches over the past 2 days were due to inadvertent discontinuation of clonazepam 1.5 mg t.i.d.; in order to simplify medication regimen, will switch to diazepam 2 mg t.i.d. and discontinue the scheduled Xanax. Also will make levothyroxine ordered for later in the day; while this is typically given early in the morning, before medication and food, it is agitating for patient to be woken up 06/04 frustrated today wanting to transfer; remains able to use coping skills (last night removed herself from situation in [place] she could tell would be triggering). Discussed with admin pending court case for assault charges filed against her Patient educated on: diagnosis and medication risk/benefits Informed Consent: understands Reason for continued inpatient stay Substantial Risk for: harm to self, harm to others and inability to function Time Spent With Patient Time: Total time managing care of this patient today ____ minutes.
[2023-06-04] MEDS: Lidocaine 4 % Patch ADH..PATCH 1 PATCH TRANSDERMA (10:10)
[2023-06-04] MEDS: Divalproex Sodium 500 MG TABLET.DR PO ×3 (10:10→22:23)
[2023-06-04] MEDS: polyethylene glycoL 3350 17 GM POWD.PACK PO ×2 (10:10→22:42)
[2023-06-04] MEDS: Propranolol HCL LA 60 MG CAP.SA.24H 120 MG PO (10:10)
[2023-06-04] MEDS: OXcarbazepine 300 MG TABLET 600 MG PO ×2 (10:10→17:07)
[2023-06-04] MEDS: Furosemide 40 MG TABLET PO ×2 (10:10→17:09)
[2023-06-04] MEDS: Simethicone 80 MG TAB.CHEW PO ×4 (10:11→22:23)
[2023-06-04] MEDS: diazePAM 2 MG TABLET PO ×3 (10:11→22:42)
[2023-06-04] MEDS: Levothyroxine Sodium 25 MCG TABLET 12.5 MCG PO (10:11)
[2023-06-04] MEDS: Omeprazole 20 MG CAPSULE.DR PO (10:11)
[2023-06-04] MEDS: QUEtiapine Fumarate 300 MG TABLET PO ×3 (10:11→22:27)
[2023-06-04] MEDS: OLANZapine 7.5 MG TABLET 15 MG PO ×2 (10:11→22:23)
[2023-06-04] MEDS: ALPRAZolam 0.5 MG TABLET PO (11:00)
[2023-06-04 11:05] VITALS: BMI 45.6
[2023-06-04] MEDS: diazePAM 10 MG/2 ML CARTRIDGE IM (12:05)
--- NOTE | 2023-06-04 12:16 | PC.NURSE ---
per requested and received 10mg Valium IM w/ good effect. Pt voices the desire to use as minimal amounts of medications as possible when she feels her behavior may begin to escalate.
[2023-06-04 17:00] VITALS: BP 106/61; PULSE 84; TEMP 35.8
[2023-06-04] MEDS: Zolpidem Tartrate 5 MG TABLET 10 MG PO (22:24)
[2023-06-04] MEDS: clomiPRAMINE HCl 25 MG CAPSULE 75 MG PO (22:24)
[2023-06-04] MEDS: Atorvastatin Calcium 10 MG TABLET PO (22:24)
[2023-06-04] MEDS: traZODone HCL 100 MG TABLET PO (22:24)
[2023-06-05 10:00] VITALS: BP 125/76; PULSE 86; RESP 16; TEMP 36.4; O2SAT 96
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
[2023-06-05] MEDS: Simethicone 80 MG TAB.CHEW PO ×3 (11:23→18:13)
[2023-06-05] MEDS: Levothyroxine Sodium 25 MCG TABLET 12.5 MCG PO (11:23)
[2023-06-05] MEDS: polyethylene glycoL 3350 17 GM POWD.PACK PO ×2 (11:23→21:24)
[2023-06-05] MEDS: Lidocaine 4 % Patch ADH..PATCH 1 PATCH TRANSDERMA (11:23)
[2023-06-05] MEDS: Divalproex Sodium 500 MG TABLET.DR PO ×3 (11:23→21:23)
[2023-06-05] MEDS: Propranolol HCL LA 60 MG CAP.SA.24H 120 MG PO (11:24)
[2023-06-05] MEDS: OXcarbazepine 300 MG TABLET 600 MG PO ×2 (11:24→18:13)
[2023-06-05] MEDS: OLANZapine 7.5 MG TABLET 15 MG PO ×2 (11:24→21:22)
[2023-06-05] MEDS: Furosemide 40 MG TABLET PO ×3 (11:24→18:41)
[2023-06-05] MEDS: Omeprazole 20 MG CAPSULE.DR PO (11:24)
[2023-06-05] MEDS: diazePAM 2 MG TABLET PO ×3 (11:24→21:22)
[2023-06-05] MEDS: QUEtiapine Fumarate 300 MG TABLET PO ×3 (11:24→21:22)
[2023-06-05] MEDS: clomiPRAMINE HCl 25 MG CAPSULE 75 MG PO (21:21)
[2023-06-05] MEDS: traZODone HCL 100 MG TABLET PO (21:22)
[2023-06-05] MEDS: Atorvastatin Calcium 10 MG TABLET PO (21:22)
[2023-06-05 22:00] VITALS: BP 123/68; PULSE 88; RESP 18; TEMP 36.1
[2023-06-06] MEDS: Calcium Carbonate 750 MG TAB.CHEW PO (02:59)
[2023-06-06] MEDS: ALPRAZolam 0.5 MG TABLET PO ×2 (03:20→09:53)
[2023-06-06] MEDS: diazePAM 2 MG TABLET PO ×3 (08:16→20:42)
[2023-06-06] MEDS: Simethicone 80 MG TAB.CHEW PO ×2 (08:57→20:42)
[2023-06-06] MEDS: Lidocaine 4 % Patch ADH..PATCH 1 PATCH TRANSDERMA (08:57)
[2023-06-06] MEDS: polyethylene glycoL 3350 17 GM POWD.PACK PO ×2 (08:57→20:37)
[2023-06-06] MEDS: Omeprazole 20 MG CAPSULE.DR PO (08:58)
[2023-06-06] MEDS: OXcarbazepine 300 MG TABLET 600 MG PO ×2 (08:58→15:11)
[2023-06-06] MEDS: OLANZapine 7.5 MG TABLET 15 MG PO ×2 (08:58→20:42)
[2023-06-06] MEDS: Propranolol HCL LA 60 MG CAP.SA.24H 120 MG PO (08:58)
[2023-06-06] MEDS: QUEtiapine Fumarate 300 MG TABLET PO ×3 (08:58→20:41)
[2023-06-06] MEDS: Divalproex Sodium 500 MG TABLET.DR PO ×3 (08:58→20:42)
[2023-06-06] MEDS: Furosemide 40 MG TABLET PO (08:58)
[2023-06-06 09:04] VITALS: BP 134/83; PULSE 89; RESP 16; TEMP 36.1; O2SAT 96
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
[2023-06-06] MEDS: diazePAM 10 MG/2 ML CARTRIDGE IM (10:35)
[2023-06-06] MEDS: Ziprasidone Mesylate 20 MG VIAL IM (10:36)
[2023-06-06] MEDS: Midazolam HCl/PF 2 MG/2 ML VIAL 8 MG IM (10:37)
[2023-06-06] MEDS: Levothyroxine Sodium 25 MCG TABLET 12.5 MCG PO (15:11)
[2023-06-06 17:46] VITALS: BP 134/82; PULSE 87; RESP 16; TEMP 36.1; O2SAT 96
--- NOTE | 2023-06-06 18:30 | HO.PSYCHPN ---
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 all WNL 05/10 pt reports constipation some abdominal cramping- simethicone added- pending effect, afebrile, no signs of infection (no leukocytosis), seen by hospitalist. KUB not showing obstruction but does show moderate constipation. May want to recheck TSH and treat if elevated. Pt remains in behavioral concerns. 05/11: Modified bowel regimen. DC Lactulose. Miralax BID rather than QID. 05/13: Remained in good behavioral control throughout the weekend and today, utilizing PRNs frequently -invoking HCP (see above) 05/14 patient dysregulated, through lunch at addiction social worker; than tried to cut her arms with a spoon, needed mechanical/chemical restraint; calm down but again got dysregulated, tried to cut her arm with another plastic piece and required mechanical/chemical restraint; later that evening patient was triggered by a provocative peer (who was eventually transferred off the unit); with much difficulty she was able to be redirected 05/15 thus far patient remaining in behavioral control, asking for PRNs. Audiology Doctor discussed medications again with Dr. 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 While droperidol has been using the past for similar situations, patient has Haldol listed as an allergy which has very similar chemical structured true droperidol. 05/16 Continue current regime and plan of care. 05/18: Continue current regimen and plans. Continue to 1 observation 05/19 continue current regimen and plans. Increased Ambien to 10 mg q.h.s. 05/21 patient remains in relatively good behavioral/impulse control and has advancing privileges Continued discussions with [facility] about transfer to [facility] facility 05/22 patient welcomed the news that there is a bed at [facility]; remains in good behavioral control. Privileges advance to axis to the kitchen though not groups yet 05/23/23: Pt is advancing privileges. Daniel Aquino prn x 1. Continue current regime and plan of care. 05/24/23: Pt is attending some groups today. Daniel Aquino prn x 1. Continue current regime and plan of care. States she is excited to transfer to another facility next week. 05/25/23: Continue regime and plan. Pt attending group today and reports depression/anxiety regarding transfer. 05/26/23: Support pt in preparation to transfer. Diagnostics ordered for 05/27/23. 05/27 continue tx. 05/28 Diagnostics pre transfer completed, reviewed. Levothyroxine 25 mcg daily Lipitor 20 mg hs 05/29/23 Support pt in transition. 05/30/23 Reports feeling dizzy, thirsty, with decrease in appetite and diaphoretic. Diagnostics Decrease Levothyroxine to 12.5 mcg daily Decrease Atorvastatin to 10 mg daily 05/31/23 TSH is now WNL Continue current regime and plan. 05/1223 the patient complains of nausea, poor appetite for the last 2 days and headaches. She had fused PRNs. I am ordering CBC with differential and comprehensive metabolic panel. I am starting Xanax up to 0.25 bid schedule, first dose now. 06/02 Keep same treatment. 06/03 likely nausea, poor appetite and headaches over the past 2 days were due to inadvertent discontinuation of clonazepam 1.5 mg t.i.d.; in order to simplify medication regimen, will switch to diazepam 2 mg t.i.d. and discontinue the scheduled Xanax. Also will make levothyroxine ordered for later in the day; while this is typically given early in the morning, before medication and food, it is agitating for patient to be woken up 06/04 frustrated today wanting to transfer; remains able to use coping skills (last night removed herself from situation in [place] she could tell would be triggering). Discussed with admin pending court case for assault charges filed against her 06/06 patient attended hearing during which time she became dysregulated and ended up being physically/chemically restrained. Of note, it is editorial writer's opinion that the court interacted with patient in such a way without taking into consideration her mental health issues, limitations and ability to process information and there was considerable concern leading up to the event that patient would be able to tolerate it at all. In hindsight, would have offered patient PRNs prior to court proceedings (she did get them during but not soon enough); also patient did not realize that she was allowed to wave her right to continue hearing the charges and leave the forum which she said she would have done had she known this was allowed Patient educated on: diagnosis and medication risk/benefits Informed Consent: understands Reason for continued inpatient stay Substantial Risk for: harm to self, harm to others and inability to function Time Spent With Patient Time: Total time managing care of this patient today ____ minutes.
[2023-06-06] MEDS: Atorvastatin Calcium 10 MG TABLET PO (20:38)
[2023-06-06] MEDS: clomiPRAMINE HCl 25 MG CAPSULE 75 MG PO (20:41)
[2023-06-06] MEDS: traZODone HCL 100 MG TABLET PO (20:42)
[2023-06-06] MEDS: Zolpidem Tartrate 5 MG TABLET 10 MG PO (20:43)
[2023-06-06] MEDS: NaPROXEN 500 MG TABLET PO (20:49)
[2023-06-07] MEDS: OLANZapine 7.5 MG TABLET 15 MG PO ×2 (09:58→22:18)
[2023-06-07] MEDS: diazePAM 2 MG TABLET PO ×2 (09:58→22:20)
[2023-06-07] MEDS: QUEtiapine Fumarate 300 MG TABLET PO ×3 (09:58→22:20)
[2023-06-07] MEDS: Omeprazole 20 MG CAPSULE.DR PO (09:58)
[2023-06-07] MEDS: Divalproex Sodium 500 MG TABLET.DR PO ×3 (09:58→22:19)
[2023-06-07] MEDS: OXcarbazepine 300 MG TABLET 600 MG PO ×2 (09:58→13:28)
[2023-06-07] MEDS: Propranolol HCL LA 60 MG CAP.SA.24H 120 MG PO (09:58)
[2023-06-07] MEDS: Simethicone 80 MG TAB.CHEW PO ×3 (09:58→22:18)
[2023-06-07] MEDS: Furosemide 40 MG TABLET PO (09:59)
[2023-06-07] MEDS: polyethylene glycoL 3350 17 GM POWD.PACK PO ×2 (11:51→22:21)
[2023-06-07] MEDS: Levothyroxine Sodium 25 MCG TABLET 12.5 MCG PO (11:54)
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
[2023-06-07] MEDS: Calcium Carbonate 750 MG TAB.CHEW PO (12:51)
[2023-06-07] MEDS: Lidocaine 4 % Patch ADH..PATCH 1 PATCH TRANSDERMA (12:51)
[2023-06-07] MEDS: diazePAM 10 MG/2 ML CARTRIDGE IM (13:18)
[2023-06-07] MEDS: Ziprasidone Mesylate 20 MG VIAL IM (13:19)
[2023-06-07] MEDS: clomiPRAMINE HCl 25 MG CAPSULE 75 MG PO (22:19)
[2023-06-07] MEDS: Zolpidem Tartrate 5 MG TABLET 10 MG PO (22:19)
[2023-06-07] MEDS: Atorvastatin Calcium 10 MG TABLET PO (22:20)
[2023-06-07] MEDS: traZODone HCL 100 MG TABLET PO (22:25)
[2023-06-08] MEDS: ALPRAZolam 0.5 MG TABLET PO (04:05)
[2023-06-08] MEDS: diazePAM 5 MG TABLET 10 MG PO (04:05)
[2023-06-08 07:45] VITALS: BP 119/70; PULSE 80; RESP 18
[2023-06-08] MEDS: Divalproex Sodium 500 MG TABLET.DR PO ×3 (07:55→22:13)
[2023-06-08] MEDS: Propranolol HCL LA 60 MG CAP.SA.24H 120 MG PO (07:55)
[2023-06-08] MEDS: QUEtiapine Fumarate 300 MG TABLET PO ×3 (07:55→22:12)
[2023-06-08] MEDS: Furosemide 40 MG TABLET PO ×2 (07:55→16:51)
[2023-06-08] MEDS: OLANZapine 7.5 MG TABLET 15 MG PO ×2 (07:55→22:14)
[2023-06-08] MEDS: Simethicone 80 MG TAB.CHEW PO ×3 (07:55→22:15)
[2023-06-08] MEDS: diazePAM 2 MG TABLET PO ×3 (07:55→20:52)
[2023-06-08] MEDS: OXcarbazepine 300 MG TABLET 600 MG PO ×2 (07:56→14:27)
[2023-06-08] MEDS: polyethylene glycoL 3350 17 GM POWD.PACK PO ×2 (07:56→22:11)
[2023-06-08] MEDS: Omeprazole 20 MG CAPSULE.DR PO (07:56)
[2023-06-08] MEDS: Lidocaine 4 % Patch ADH..PATCH 1 PATCH TRANSDERMA (07:56)
[2023-06-08] MEDS: Acetaminophen 325 MG TABLET 650 MG PO (08:08)
[2023-06-08] MEDS: Levothyroxine Sodium 25 MCG TABLET 12.5 MCG PO (08:08)
--- NOTE | 2023-06-08 11:54 | P.PNPSI_ITS ---
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 constipation some abdominal cramping- simethicone added- pending effect, afebrile, no signs of infection (no leukocytosis), seen by hospitalist. KUB not showing obstruction but does show moderate constipation. May want to recheck TSH and treat if elevated. Pt remains in behavioral concerns. 05/11: Modified bowel regimen. DC Lactulose. Miralax BID rather than QID. 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 Property Claims Manager discussed medications again with Dr. 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 While droperidol has been using the past for similar situations, patient has Haldol listed as an allergy which has very similar chemical structured true droperidol. 05/16 Continue current regime and plan of care. 05/18: Continue current regimen and plans. Continue to 1 observation 05/19 continue current regimen and plans. Increased Ambien to 10 mg q.h.s. 05/21 patient remains in relatively good behavioral/impulse control and has advancing privileges Continued discussions with [facility] about transfer to [facility] facility 05/22 patient welcomed the news that there is a bed at [facility]; remains in good behavioral control. Privileges advance to axis to the kitchen though not groups yet 05/23/23: Pt is advancing privileges. Kenia, Carmenium prn x 1. Continue current regime and plan of care. 05/24/23: Pt is attending some groups today. Geodon, Valium prn x 1. Continue current regime and plan of care. States she is excited to transfer to another facility next week. 05/25/23: Continue regime and plan. Pt attending group today and reports depression/anxiety regarding transfer. 05/26/23: Support pt in preparation to transfer. Diagnostics ordered for 05/27/23. 05/27 continue tx. 05/28 Diagnostics pre transfer completed, reviewed. Levothyroxine 25 mcg daily Lipitor 20 mg hs 05/29/23 Support pt in transition. 05/30/23 Reports feeling dizzy, thirsty, with decrease in appetite and diaphoretic. Diagnostics Decrease Levothyroxine to 12.5 mcg daily Decrease Atorvastatin to 10 mg daily 05/31/23 TSH is now WNL Continue current regime and plan. 05/1223 the patient complains of nausea, poor appetite for the last 2 days and headaches. She had fused PRNs. I am ordering CBC with differential and comprehensive metabolic panel. I am starting Xanax up to 0.25 bid schedule, first dose now. 06/02 Keep same treatment. 06/03 likely nausea, poor appetite and headaches over the past 2 days were due to inadvertent discontinuation of clonazepam 1.5 mg t.i.d.; in order to simplify medication regimen, will switch to diazepam 2 mg t.i.d. and discontinue the scheduled Xanax. Also will make levothyroxine ordered for later in the day; while this is typically given early in the morning, before medication and food, it is agitating for patient to be woken up 06/04 frustrated today wanting to transfer; remains able to use coping skills (last night removed herself from situation in [place] she could tell would be triggering). Discussed with admin pending court case for assault charges filed against her 06/06 patient attended hearing during which time she became dysregulated and ended up being physically/chemically restrained. Of note, it is comic writer's opinion that the court interacted with patient in such a way without taking into consideration her mental health issues, limitations and ability to process information and there was considerable concern leading up to the event that patient would be able to tolerate it at all. In hindsight, would have offered patient PRNs prior to court proceedings (she did get them during but not soon enough); also patient did not realize that she was allowed to wave her right to continue hearing the charges and leave the forum which she said she would have done had she known this was allowed 06/07 continue treatment plan; has very specific privileges; discussed with nursing 06/08/23 no changes; continue treatment plan Reason for continued inpatient stay Substantial Risk for: harm to self, harm to others, inability to function and rapid decompensation Time Spent With Patient Time: Total time managing care of this patient today ____ minutes.
[2023-06-08 16:35] VITALS: BP 125/83; PULSE 81; TEMP 36.7
[2023-06-08] MEDS: Ziprasidone Mesylate 20 MG VIAL IM (19:06)
[2023-06-08] MEDS: diazePAM 10 MG/2 ML CARTRIDGE IM (19:06)
--- NOTE | 2023-06-08 19:36 | PC.NURSE ---
PT reports severe anxiety/agitation regarding upcoming court date. PT perseverating on the possibility of fdc time . PT requests PRN IMs. IM Geodon 20mg and Valium 10mg given per pts request with good effect.
[2023-06-08] MEDS: Atorvastatin Calcium 10 MG TABLET PO (22:13)
[2023-06-08] MEDS: clomiPRAMINE HCl 25 MG CAPSULE 75 MG PO (22:13)
[2023-06-08] MEDS: traZODone HCL 100 MG TABLET PO (22:15)
[2023-06-09] MEDS: Zolpidem Tartrate 5 MG TABLET 10 MG PO (00:19)
[2023-06-09] MEDS: OLANZapine 7.5 MG TABLET 15 MG PO ×2 (07:40→22:53)
[2023-06-09] MEDS: diazePAM 2 MG TABLET PO ×3 (07:41→22:51)
[2023-06-09] MEDS: Simethicone 80 MG TAB.CHEW PO ×4 (07:41→22:53)
[2023-06-09] MEDS: Omeprazole 20 MG CAPSULE.DR PO (07:41)
[2023-06-09] MEDS: OXcarbazepine 300 MG TABLET 600 MG PO ×2 (07:41→17:35)
[2023-06-09] MEDS: Furosemide 40 MG TABLET PO ×2 (07:41→17:39)
[2023-06-09] MEDS: Propranolol HCL LA 60 MG CAP.SA.24H 120 MG PO (07:41)
[2023-06-09] MEDS: QUEtiapine Fumarate 300 MG TABLET PO ×3 (07:42→22:53)
[2023-06-09] MEDS: Divalproex Sodium 500 MG TABLET.DR PO ×3 (07:42→22:51)
[2023-06-09 09:05] VITALS: BP 130/78; PULSE 82; RESP 18; TEMP 36.4; O2SAT 94
[2023-06-09] MEDS: Levothyroxine Sodium 25 MCG TABLET 12.5 MCG PO (11:24)
--- NOTE | 2023-06-09 12:33 | P.PNPSI_ITS ---
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 constipated and receiving treatment However patient complains of worsening abdominal pain; discussed with staff and on-call provider to be aware Currently labs and vitals all WNL 05/10 pt reports constipation some abdominal cramping- simethicone added- pending effect, afebrile, no signs of infection (no leukocytosis), seen by hospitalist. KUB not showing obstruction but does show moderate constipation. May want to recheck TSH and treat if elevated. Pt remains in behavioral concerns. 05/11: Modified bowel regimen. DC Lactulose. Miralax BID rather than QID. 05/13: Remained in good behavioral control throughout the weekend and today, utilizing PRNs frequently -invoking HCP (see above) 05/14 patient dysregulated, through lunch at social professionals; than tried to cut her arms with a spoon, needed mechanical/chemical restraint; calm down but again got dysregulated, tried to cut her arm with another plastic piece and required mechanical/chemical restraint; later that evening patient was triggered by a provocative peer (who was eventually transferred off the unit); with much difficulty she was able to be redirected 05/15 thus far patient remaining in behavioral control, asking for PRNs. Assistant Community Manager discussed medications again with Dr. 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 While droperidol has been using the past for similar situations, patient has Haldol listed as an allergy which has very similar chemical structured true droperidol. 05/16 Continue current regime and plan of care. 05/18: Continue current regimen and plans. Continue to 1 observation 05/19 continue current regimen and plans. Increased Ambien to 10 mg q.h.s. 05/21 patient remains in relatively good behavioral/impulse control and has advancing privileges Continued discussions with [facility] [place] about transfer to [facility] [place] facility 05/22 patient welcomed the news that there is a bed at [facility]; remains in good behavioral control. Privileges advance to axis to the kitchen though not groups yet 05/23/23: Pt is advancing privileges. Geodon, Valium prn x 1. Continue current regime and plan of care. 05/24/23: Pt is attending some groups today. Daniel Aquino prn x 1. Continue current regime and plan of care. States she is excited to transfer to another facility next week. 05/25/23: Continue regime and plan. Pt attending group today and reports depression/anxiety regarding transfer. 05/26/23: Support pt in preparation to transfer. Diagnostics ordered for 05/27/23. 05/27 continue tx. 05/28 Diagnostics pre transfer completed, reviewed. Levothyroxine 25 mcg daily Lipitor 20 mg hs 05/29/23 Support pt in transition. 05/30/23 Reports feeling dizzy, thirsty, with decrease in appetite and diaphoretic. Diagnostics Decrease Levothyroxine to 12.5 mcg daily Decrease Atorvastatin to 10 mg daily 05/31/23 TSH is now WNL Continue current regime and plan. 05/1223 the patient complains of nausea, poor appetite for the last 2 days and headaches. She had fused PRNs. I am ordering CBC with differential and comprehensive metabolic panel. I am starting Xanax up to 0.25 bid schedule, first dose now. 06/02 Keep same treatment. 06/03 likely nausea, poor appetite and headaches over the past 2 days were due to inadvertent discontinuation of clonazepam 1.5 mg t.i.d.; in order to simplify medication regimen, will switch to diazepam 2 mg t.i.d. and discontinue the scheduled Xanax. Also will make levothyroxine ordered for later in the day; while this is typically given early in the morning, before medication and food, it is agitating for patient to be woken up 06/04 frustrated today wanting to transfer; remains able to use coping skills (last night removed herself from situation in [place] she could tell would be triggering). Discussed with admin pending court case for assault charges filed against her 06/06 patient attended hearing during which time she became dysregulated and ended up being physically/chemically restrained. Of note, it is promotion writer's opinion that the court interacted with patient in such a way without taking into consideration her mental health issues, limitations and ability to process information and there was considerable concern leading up to the event that patient would be able to tolerate it at all. In hindsight, would have offered patient PRNs prior to court proceedings (she did get them during but not soon enough); also patient did not realize that she was allowed to wave her right to continue hearing the charges and leave the forum which she said she would have done had she known this was allowed 06/07 continue treatment plan; has very specific privileges; discussed with nursing 06/08/23 no changes; continue treatment plan 06/09/23 no changes; continue treatment plan Patient educated on: therapeutic strategies Informed Consent: further education needed Reason for continued inpatient stay Substantial Risk for: harm to self, harm to others, inability to function and ra pid decompensation Time Spent With Patient Time: Total time managing care of this patient today ____ minutes.
[2023-06-09 17:35] VITALS: BP 110/60; PULSE 76; TEMP 35.8
[2023-06-09] MEDS: clomiPRAMINE HCl 25 MG CAPSULE 75 MG PO (22:52)
[2023-06-09] MEDS: Atorvastatin Calcium 10 MG TABLET PO (22:53)
[2023-06-09] MEDS: traZODone HCL 100 MG TABLET PO (22:53)
[2023-06-09] MEDS: diazePAM 10 MG/2 ML CARTRIDGE IM (23:52)
[2023-06-09] MEDS: Ziprasidone Mesylate 20 MG VIAL IM (23:53)
--- NOTE | 2023-06-10 00:07 | PC.NURSE ---
Patient reports to this fiction and nonfiction writer prose that she felt like she was gonna flip out. Patient requested prn IM injections. Administered without issue. Patient able to remain in behavioral control.
--- NOTE | 2023-06-10 09:20 | P.PNPSI_ITS ---
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 KUB not showing obstruction but does show moderate constipation. May want to recheck TSH and treat if elevated. Pt remains in behavioral concerns. 05/11: Modified bowel regimen. DC Lactulose. Miralax BID rather than QID. 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 While droperidol has been using the past for similar situations, patient has Haldol listed as an allergy which has very similar chemical structured true droperidol. 05/16 Continue current regime and plan of care. 05/18: Continue current regimen and plans. Continue to 1 observation 05/19 continue current regimen and plans. Increased Ambien to 10 mg q.h.s. 05/21 patient remains in relatively good behavioral/impulse control and has advancing privileges Continued discussions with [facility] about transfer to [facility] facility 05/22 patient welcomed the news that there is a bed at [facility]; remains in good behavioral control. Privileges advance to axis to the kitchen though not groups yet 05/23/23: Pt is advancing privileges. Daniel Aquino prn x 1. Continue current regime and plan of care. 05/24/23: Pt is attending some groups today. Daniel Aquino prn x 1. Continue current regime and plan of care. States she is excited to transfer to another facility next week. 05/25/23: Continue regime and plan. Pt attending group today and reports depression/anxiety regarding transfer. 05/26/23: Support pt in preparation to transfer. Diagnostics ordered for 05/27/23. 05/27 continue tx. 05/28 Diagnostics pre transfer completed, reviewed. Levothyroxine 25 mcg daily Lipitor 20 mg hs 05/29/23 Support pt in transition. 05/30/23 Reports feeling dizzy, thirsty, with decrease in appetite and diaphoretic. Diagnostics Decrease Levothyroxine to 12.5 mcg daily Decrease Atorvastatin to 10 mg daily 05/31/23 TSH is now WNL Continue current regime and plan. 05/1223 the patient complains of nausea, poor appetite for the last 2 days and headaches. She had fused PRNs. I am ordering CBC with differential and comprehensive metabolic panel. I am starting Xanax up to 0.25 bid schedule, first dose now. 06/02 Keep same treatment. 06/03 likely nausea, poor appetite and headaches over the past 2 days were due to inadvertent discontinuation of clonazepam 1.5 mg t.i.d.; in order to simplify medication regimen, will switch to diazepam 2 mg t.i.d. and discontinue the scheduled Xanax. Also will make levothyroxine ordered for later in the day; while this is typically given early in the morning, before medication and food, it is agitating for patient to be woken up 06/04 frustrated today wanting to transfer; remains able to use coping skills (last night removed herself from situation in [place] she could tell would be triggering). Discussed with admin pending court case for assault charges filed against her 06/06 patient attended hearing during which time she became dysregulated and ended up being physically/chemically restrained. Of note, it is commercial loan underwriter's opinion that the court interacted with patient in such a way without taking into consideration her mental health issues, limitations and ability to process information and there was considerable concern leading up to the event that p jolene would be able to tolerate it at all. In hindsight, would have offered patient PRNs prior to court proceedings (she did get them during but not soon enough); also patient did not realize that she was allowed to wave her right to continue hearing the charges and leave the forum which she said she would have done had she known this was allowed 06/07 continue treatment plan; has very specific privileges; discussed with nursing 06/10 doing well; using coping skills and staying safe. Repeat court tomorrow. Patient considering waving her rights to attend Patient educated on: diagnosis and therapeutic strategies Informed Consent: understands Reason for continued inpatient stay Substantial Risk for: harm to self, harm to others and inability to function Time Spent With Patient Time: Total time managing care of this patient today ____ minutes.
[2023-06-10] MEDS: Levothyroxine Sodium 25 MCG TABLET 12.5 MCG PO (09:42)
[2023-06-10] MEDS: Simethicone 80 MG TAB.CHEW PO ×4 (09:43→22:37)
[2023-06-10] MEDS: Furosemide 40 MG TABLET PO ×2 (09:43→18:53)
[2023-06-10] MEDS: OLANZapine 7.5 MG TABLET 15 MG PO ×2 (09:43→22:36)
[2023-06-10] MEDS: diazePAM 2 MG TABLET PO ×2 (09:43→22:36)
[2023-06-10] MEDS: OXcarbazepine 300 MG TABLET 600 MG PO ×2 (09:43→18:51)
[2023-06-10] MEDS: QUEtiapine Fumarate 300 MG TABLET PO ×3 (09:44→22:37)
[2023-06-10] MEDS: Omeprazole 20 MG CAPSULE.DR PO (09:44)
[2023-06-10] MEDS: Propranolol HCL LA 60 MG CAP.SA.24H 120 MG PO (09:44)
[2023-06-10] MEDS: Divalproex Sodium 500 MG TABLET.DR PO ×3 (09:58→22:37)
[2023-06-10] MEDS: Lidocaine 4 % Patch ADH..PATCH 1 PATCH TRANSDERMA (09:59)
[2023-06-10 10:00] VITALS: BP 131/83; PULSE 87; RESP 18; TEMP 36.3; O2SAT 97
[2023-06-10] MEDS: ALPRAZolam 0.5 MG TABLET PO (12:25)
[2023-06-10] MEDS: diazePAM 5 MG TABLET 10 MG PO (12:25)
[2023-06-10 19:21] VITALS: BP 109/62; PULSE 85; RESP 18; TEMP 36.9; O2SAT 97
[2023-06-10] MEDS: clomiPRAMINE HCl 25 MG CAPSULE 75 MG PO (22:36)
[2023-06-10] MEDS: traZODone HCL 100 MG TABLET PO (22:37)
[2023-06-10] MEDS: Atorvastatin Calcium 10 MG TABLET PO (22:37)
[2023-06-10] MEDS: Zolpidem Tartrate 5 MG TABLET 10 MG PO (22:37)
[2023-06-11] MEDS: Calcium Carbonate 750 MG TAB.CHEW PO (04:11)
[2023-06-11] MEDS: Levothyroxine Sodium 25 MCG TABLET 12.5 MCG PO (08:40)
[2023-06-11] MEDS: Lidocaine 4 % Patch ADH..PATCH 1 PATCH TRANSDERMA (08:40)
[2023-06-11] MEDS: Propranolol HCL LA 60 MG CAP.SA.24H 120 MG PO (08:41)
[2023-06-11] MEDS: OXcarbazepine 300 MG TABLET 600 MG PO ×2 (08:41→15:07)
[2023-06-11] MEDS: Omeprazole 20 MG CAPSULE.DR PO (08:42)
[2023-06-11] MEDS: Divalproex Sodium 500 MG TABLET.DR PO ×3 (08:42→20:42)
[2023-06-11] MEDS: Furosemide 40 MG TABLET PO (08:42)
[2023-06-11] MEDS: diazePAM 2 MG TABLET PO ×3 (08:43→20:42)
[2023-06-11] MEDS: OLANZapine 7.5 MG TABLET 15 MG PO ×2 (08:43→20:41)
[2023-06-11] MEDS: QUEtiapine Fumarate 300 MG TABLET PO ×3 (08:43→20:42)
[2023-06-11] MEDS: Simethicone 80 MG TAB.CHEW PO ×2 (08:44→20:42)
[2023-06-11] MEDS: ALPRAZolam 0.5 MG TABLET PO (08:53)
[2023-06-11] MEDS: Ziprasidone Mesylate 20 MG VIAL IM (09:36)
[2023-06-11 09:41] VITALS: BP 118/77; PULSE 87; RESP 16; TEMP 35.7; O2SAT 96
--- NOTE | 2023-06-11 12:24 | P.PNPSI_ITS ---
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 bowel regimen. DC Lactulose. Miralax BID rather than QID. 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 While droperidol has been using the past for similar situations, patient has Haldol listed as an allergy which has very similar chemical structured true droperidol. 05/16 Continue current regime and plan of care. 05/18: Continue current regimen and plans. Continue to 1 observation 05/19 continue current regimen and plans. Increased Ambien to 10 mg q.h.s. 05/21 patient remains in relatively good behavioral/impulse control and has advancing privileges Continued discussions with [facility] about transfer to [facility] facility 05/22 patient welcomed the news that there is a bed at [facility]; remains in good behavioral control. Privileges advance to axis to the kitchen though not groups yet 05/23/23: Pt is advancing privileges. Daniel Aquino prn x 1. Continue current regime and plan of care. 05/24/23: Pt is attending some groups today. Daniel Aquino prn x 1. Continue current regime and plan of care. States she is excited to transfer to another facility next week. 05/25/23: Continue regime and plan. Pt attending group today and reports depression/anxiety regarding transfer. 05/26/23: Support pt in preparation to transfer. Diagnostics ordered for 05/27/23. 05/27 continue tx. 05/28 Diagnostics pre transfer completed, reviewed. Levothyroxine 25 mcg daily Lipitor 20 mg hs 05/29/23 Support pt in transition. 05/30/23 Reports feeling dizzy, thirsty, with decrease in appetite and diaphoretic. Diagnostics Decrease Levothyroxine to 12.5 mcg daily Decrease Atorvastatin to 10 mg daily 05/31/23 TSH is now WNL Continue current regime and plan. 05/1223 the patient complains of nausea, poor appetite for the last 2 days and headaches. She had fused PRNs. I am ordering CBC with differential and comprehensive metabolic panel. I am starting Xanax up to 0.25 bid schedule, first dose now. 06/02 Keep same treatment. 06/03 likely nausea, poor appetite and headaches over the past 2 days were due to inadvertent discontinuation of clonazepam 1.5 mg t.i.d.; in order to simplify medication regimen, will switch to diazepam 2 mg t.i.d. and discontinue the scheduled Xanax. Also will make levothyroxine ordered for later in the day; while this is typically given early in the morning, before medication and food, it is agitating for patient to be woken up 06/04 frustrated today wanting to transfer; remains able to use coping skills (last night removed herself from situation in [place] she could tell would be triggering). Discussed with admin pending court case for assault charges filed against her 06/06 patient attended hearing during which time she became dysregulated and ended up being physically/chemically restrained. Of note, it is parts data writer's opinion that the court interacted with patient in such a way without taking into consideration her mental health issues, limitations and ability to process information and there was considerable concern leading up to the event that patient would be able to tolerate it at all. In hindsight, would have offered patient PRNs prior to court proceedings (she did get them during but not soon enough); also patient did not realize that she was allowed to wave her right to continue hearing the charges and leave the forum which she said she would have done had she known this was allowed 06/07 continue treatment plan; has very specific privileges; discussed with nursing 06/10 doing well; using coping skills and staying safe. Repeat court tomorrow. Patient considering waving her rights to attend Patient educated on: diagnosis and medication risk/benefits Reason for continued inpatient stay Substantial Risk for: harm to self, harm to others and inability to function Time Spent With Patient Time: Total time managing care of this patient today ____ minutes.
[2023-06-11] MEDS: clomiPRAMINE HCl 25 MG CAPSULE 75 MG PO (20:41)
[2023-06-11] MEDS: traZODone HCL 100 MG TABLET PO (20:42)
[2023-06-11] MEDS: Atorvastatin Calcium 10 MG TABLET PO (20:42)
[2023-06-12] MEDS: Omeprazole 20 MG CAPSULE.DR PO (08:02)
[2023-06-12] MEDS: OLANZapine 7.5 MG TABLET 15 MG PO ×2 (08:02→22:41)
[2023-06-12] MEDS: Furosemide 40 MG TABLET PO ×2 (08:02→16:52)
[2023-06-12] MEDS: Simethicone 80 MG TAB.CHEW PO ×3 (08:02→22:39)
[2023-06-12] MEDS: Divalproex Sodium 500 MG TABLET.DR PO ×3 (08:02→22:42)
[2023-06-12] MEDS: OXcarbazepine 300 MG TABLET 600 MG PO ×2 (08:03→16:47)
[2023-06-12] MEDS: QUEtiapine Fumarate 300 MG TABLET PO ×3 (08:03→22:39)
[2023-06-12] MEDS: Lidocaine 4 % Patch ADH..PATCH 1 PATCH TRANSDERMA (08:03)
[2023-06-12] MEDS: Propranolol HCL LA 60 MG CAP.SA.24H 120 MG PO (08:03)
[2023-06-12] MEDS: diazePAM 2 MG TABLET PO ×2 (08:03→16:52)
[2023-06-12 10:00] VITALS: BP 136/90; PULSE 90; RESP 16; TEMP 36.1; O2SAT 96
--- NOTE | 2023-06-12 10:37 | HO.PSYCHPN ---
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 evening patient was triggered by a provocative peer (who was eventually transferred off the unit); with much difficulty she was able to be redirected 05/15 thus far patient remaining in behavioral control, asking for PRNs. [facility] discussed medications again with Dr. 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 While droperidol has been using the past for similar situations, patient has Haldol listed as an allergy which has very similar chemical structured true droperidol. 05/16 Continue current regime and plan of care. 05/18: Continue current regimen and plans. Continue to 1 observation 05/19 continue current regimen and plans. Increased Ambien to 10 mg q.h.s. 05/21 patient remains in relatively good behavioral/impulse control and has advancing privileges Continued discussions with [facility] about transfer to [facility] facility 05/22 patient welcomed the news that there is a bed at [facility]; remains in good behavioral control. Privileges advance to axis to the kitchen though not groups yet 05/23/23: Pt is advancing privileges. Daniel Aquino prn x 1. Continue current regime and plan of care. 05/24/23: Pt is attending some groups today. Daniel Aquino prn x 1. Continue current regime and plan of care. States she is excited to transfer to another facility next week. 05/25/23: Continue regime and plan. Pt attending group today and reports depression/anxiety regarding transfer. 05/26/23: Support pt in preparation to transfer. Diagnostics ordered for 05/27/23. 05/27 continue tx. 05/28 Diagnostics pre transfer completed, reviewed. Levothyroxine 25 mcg daily Lipitor 20 mg hs 05/29/23 Support pt in transition. 05/30/23 Reports feeling dizzy, thirsty, with decrease in appetite and diaphoretic. Diagnostics Decrease Levothyroxine to 12.5 mcg daily Decrease Atorvastatin to 10 mg daily 05/31/23 TSH is now WNL Continue current regime and plan. 05/1223 the patient complains of nausea, poor appetite for the last 2 days and headaches. She had fused PRNs. I am ordering CBC with differential and comprehensive metabolic panel. I am starting Xanax up to 0.25 bid schedule, first dose now. 06/02 Keep same treatment. 06/03 likely nausea, poor appetite and headaches over the past 2 days were due to inadvertent discontinuation of clonazepam 1.5 mg t.i.d.; in order to simplify medication regimen, will switch to diazepam 2 mg t.i.d. and discontinue the scheduled Xanax. Also will make levothyroxine ordered for later in the day; while this is typically given early in the morning, before medication and food, it is agitating for patient to be woken up 06/04 frustrated today wanting to transfer; remains able to use coping skills (last night removed herself from situation in [place] she could tell would be triggering). Discussed with admin pending court case for assault charges filed against her 06/06 patient attended hearing during which time she became dysregulated and ended up being physically/chemically restrained. Of note, it is parts data writer's opinion that the court interacted with patient in such a way without taking into consideration her mental health issues, limitations and ability to process information and there was considerable concern leading up to the event that patient would be able to tolerate it at all. In hindsight, would have offered patient PRNs prior to court proceedings (she did get them during but not soon enough); also patient did not realize that she was allowed to wave her right to continue hearing the charges and leave the forum which she said she would have done had she known this was allowed 06/07 continue treatment plan; has very specific privileges; discussed with nursing 06/10 doing well; using coping skills and staying safe. Repeat court tomorrow. Patient considering waving her rights to attend Patient educated on: diagnosis, medication risk/benefits and medical condition Informed Consent: understands and further education needed Reason for continued inpatient stay Substantial Risk for: harm to self, harm to others and inability to function Time Spent With Patient Time: Total time managing care of this patient today ____ minutes.
[2023-06-12] MEDS: Levothyroxine Sodium 25 MCG TABLET 12.5 MCG PO (16:49)
[2023-06-12 18:20] VITALS: BP 142/89; PULSE 87; RESP 18; TEMP 36.3; O2SAT 96
--- NOTE | 2023-06-12 21:59 | PC.NURSE ---
PT approached med window very tearful, anxious and visibly agitated requesting IM meds for anxiety/agitation. PT states Valium 10mg does not work well and would like an increased dose as well as Geodon. Dr. Alberto Horner contacted via [employer], Valium 15mg ordered and given in the L gluteus cody by this technical publications writer. Geodon 20mg ordered and given in the R deltoid by Hayden Liu RN. Effect pending.
[2023-06-12 22:00] VITALS: BP 109/62; PULSE 83; TEMP 35.8
[2023-06-12] MEDS: diazePAM 10 MG/2 ML CARTRIDGE 15 MG IM (22:17)
[2023-06-12] MEDS: Ziprasidone Mesylate 20 MG VIAL IM (22:21)
[2023-06-12] MEDS: polyethylene glycoL 3350 17 GM POWD.PACK PO (22:38)
[2023-06-12] MEDS: clomiPRAMINE HCl 25 MG CAPSULE 75 MG PO (22:39)
[2023-06-12] MEDS: Atorvastatin Calcium 10 MG TABLET PO (22:40)
[2023-06-12] MEDS: traZODone HCL 100 MG TABLET PO (22:41)
[2023-06-12] MEDS: NaPROXEN 500 MG TABLET PO (22:46)
--- NOTE | 2023-06-12 23:28 | PC.NURSE ---
PT reported good effect from Valium 15mg and Geodon 20mg. PT currently in bed sleeping.
[2023-06-13 08:00] VITALS: BP 124/67; PULSE 87; RESP 18; TEMP 36.6; O2SAT 98
[2023-06-13] MEDS: Furosemide 40 MG TABLET PO ×2 (08:41→17:25)
[2023-06-13] MEDS: OXcarbazepine 300 MG TABLET 600 MG PO ×2 (08:41→14:57)
[2023-06-13] MEDS: Simethicone 80 MG TAB.CHEW PO ×4 (08:42→23:06)
[2023-06-13] MEDS: Omeprazole 20 MG CAPSULE.DR PO (08:42)
[2023-06-13] MEDS: QUEtiapine Fumarate 300 MG TABLET PO ×3 (08:42→23:06)
[2023-06-13] MEDS: Divalproex Sodium 500 MG TABLET.DR PO ×3 (08:42→23:07)
[2023-06-13] MEDS: OLANZapine 7.5 MG TABLET 15 MG PO ×2 (08:43→23:05)
[2023-06-13] MEDS: Propranolol HCL LA 60 MG CAP.SA.24H 120 MG PO (08:43)
[2023-06-13] MEDS: Levothyroxine Sodium 25 MCG TABLET 12.5 MCG PO (08:43)
[2023-06-13] MEDS: polyethylene glycoL 3350 17 GM POWD.PACK PO ×2 (08:44→23:05)
[2023-06-13] MEDS: diazePAM 2 MG TABLET PO ×3 (08:44→23:06)
--- NOTE | 2023-06-13 13:45 | HO.PSYCHPN ---
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 Spool Winder discussed medications again with Dr. 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 While droperidol has been using the past for similar situations, patient has Haldol listed as an allergy which has very similar chemical structured true droperidol. 05/16 Continue current regime and plan of care. 05/18: Continue current regimen and plans. Continue to 1 observation 05/19 continue current regimen and plans. Increased Ambien to 10 mg q.h.s. 05/21 patient remains in relatively good behavioral/impulse control and has advancing privileges Continued discussions with [facility] about transfer to [facility] facility 05/22 patient welcomed the news that there is a bed at [facility]; remains in good behavioral control. Privileges advance to axis to the kitchen though not groups yet 05/23/23: Pt is advancing privileges. Daniel Aquino prn x 1. Continue current regime and plan of care. 05/24/23: Pt is attending some groups today. Daniel Aquino prn x 1. Continue current regime and plan of care. States she is excited to transfer to another facility next week. 05/25/23: Continue regime and plan. Pt attending group today and reports depression/anxiety regarding transfer. 05/26/23: Support pt in preparation to transfer. Diagnostics ordered for 05/27/23. 05/27 continue tx. 05/28 Diagnostics pre transfer completed, reviewed. Levothyroxine 25 mcg daily Lipitor 20 mg hs 05/29/23 Support pt in transition. 05/30/23 Reports feeling dizzy, thirsty, with decrease in appetite and diaphoretic. Diagnostics Decrease Levothyroxine to 12.5 mcg daily Decrease Atorvastatin to 10 mg daily 05/31/23 TSH is now WNL Continue current regime and plan. 05/1223 the patient complains of nausea, poor appetite for the last 2 days and headaches. She had fused PRNs. I am ordering CBC with differential and comprehensive metabolic panel. I am starting Xanax up to 0.25 bid schedule, first dose now. 06/02 Keep same treatment. 06/03 likely nausea, poor appetite and headaches over the past 2 days were due to inadvertent discontinuation of clonazepam 1.5 mg t.i.d.; in order to simplify medication regimen, will switch to diazepam 2 mg t.i.d. and discontinue the scheduled Xanax. Also will make levothyroxine ordered for later in the day; while this is typically given early in the morning, before medication and food, it is agitating for patient to be woken up 06/04 frustrated today wanting to transfer; remains able to use coping skills (last night removed herself from situation in [place] she could tell would be triggering). Discussed with admin pending court case for assault charges filed against her 06/06 patient attended hearing during which time she became dysregulated and ended up being physically/chemically restrained. Of note, it is advertising copywriter's opinion that the court interacted with patient in such a way without taking into consideration her mental health issues, limitations and ability to process information and there was considerable concern leading up to the event that patient would be able to tolerate it at all. In hindsight, would have offered patient PRNs prior to court proceedings (she did get them during but not soon enough); also patient did not realize that she was allowed to wave her right to continue hearing the charges and leave the forum which she said she would have done had she known this was allowed 06/07 continue treatment plan; has very specific privileges; discussed with nursing 06/10 doing well; using coping skills and staying safe. Repeat court tomorrow. Patient considering waving her rights to attend 06/13 patient remains in good behavioral and impulse control; utilizing PRNs as needed; has asked for increased diazepam dose for PRNs as she may be developing some tolerance. Will consider Reason for continued inpatient stay Substantial Risk for: harm to self, harm to others and inability to function Time Spent With Patient Time: Total time managing care of this patient today ____ minutes.
[2023-06-13 17:20] VITALS: BP 105/58; PULSE 74; TEMP 36.8
[2023-06-13] MEDS: clomiPRAMINE HCl 25 MG CAPSULE 75 MG PO (23:05)
[2023-06-13] MEDS: Atorvastatin Calcium 10 MG TABLET PO (23:07)
[2023-06-13] MEDS: traZODone HCL 100 MG TABLET PO (23:07)
--- NOTE | 2023-06-14 09:56 | P.PNPSI_ITS ---
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 Crime Scene Specialist discussed medications again with Dr. 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 While droperidol has been using the past for similar situations, patient has Haldol listed as an allergy which has very similar chemical structured true droperidol. 05/16 Continue current regime and plan of care. 05/18: Continue current regimen and plans. Continue to 1 observation 05/19 continue current regimen and plans. Increased Ambien to 10 mg q.h.s. 05/21 patient remains in relatively good behavioral/impulse control and has advancing privileges Continued discussions with [facility] about transfer to [facility] facility 05/22 patient welcomed the news that there is a bed at [facility]; remains in good behavioral control. Privileges advance to axis to the kitchen though not groups yet 05/23/23: Pt is advancing privileges. Daniel Aquino prn x 1. Continue current regime and plan of care. 05/24/23: Pt is attending some groups today. Daniel Aquino prn x 1. Continue current regime and plan of care. States she is excited to transfer to another facility next week. 05/25/23: Continue regime and plan. Pt attending group today and reports depression/anxiety regarding transfer. 05/26/23: Support pt in preparation to transfer. Diagnostics ordered for 05/27/23. 05/27 continue tx. 05/28 Diagnostics pre transfer completed, reviewed. Levothyroxine 25 mcg daily Lipitor 20 mg hs 05/29/23 Support pt in transition. 05/30/23 Reports feeling dizzy, thirsty, with decrease in appetite and diaphoretic. Diagnostics Decrease Levothyroxine to 12.5 mcg daily Decrease Atorvastatin to 10 mg daily 05/31/23 TSH is now WNL Continue current regime and plan. 05/1223 the patient complains of nausea, poor appetite for the last 2 days and headaches. She had fused PRNs. I am ordering CBC with differential and comprehensive metabolic panel. I am starting Xanax up to 0.25 bid schedule, first dose now. 06/02 Keep same treatment. 06/03 likely nausea, poor appetite and headaches over the past 2 days were due to inadvertent discontinuation of clonazepam 1.5 mg t.i.d.; in order to simplify m edication regimen, will switch to diazepam 2 mg t.i.d. and discontinue the scheduled Xanax. Also will make levothyroxine ordered for later in the day; while this is typically given early in the morning, before medication and food, it is agitating for patient to be woken up 06/04 frustrated today wanting to transfer; remains able to use coping skills (last night removed herself from situation in [place] she could tell would be triggering). Discussed with admin pending court case for assault charges filed against her 06/06 patient attended hearing during which time she became dysregulated and ended up being physically/chemically restrained. Of note, it is securities underwriter's opinion that the court interacted with patient in such a way without taking into consideration her mental health issues, limitations and ability to process information and there was considerable concern leading up to the event that patient would be able to tolerate it at all. In hindsight, would have offered patient PRNs prior to court proceedings (she did get them during but not soon enough); also patient did not realize that she was allowed to wave her right to continue hearing the charges and leave the forum which she said she would have done had she known this was allowed 06/07 continue treatment plan; has very specific privileges; discussed with nursing 06/10 doing well; using coping skills and staying safe. Repeat court tomorrow. Patient considering waving her rights to attend 06/13 patient remains in good behavioral and impulse control; utilizing PRNs as needed; has asked for increased diazepam dose for PRNs as she may be developing some tolerance. Will consider 06/14 patient more irritable today, feeling depressed that transfer to long-term facilities taking so long; reaching out to staff to help her cope through it and taking PRNs. Having trouble sleeping as well. Will review medications to adjust Patient educated on: diagnosis, medication risk/benefits and therapeutic strategies Informed Consent: understands Reason for continued inpatient stay Substantial Risk for: harm to self, harm to others and inability to function Time Spent With Patient Time: Total time managing care of this patient today ____ minutes.
[2023-06-14] MEDS: polyethylene glycoL 3350 17 GM POWD.PACK PO (12:09)
[2023-06-14 12:10] VITALS: BP 134/80; PULSE 88; RESP 16; TEMP 36.6; O2SAT 98
[2023-06-14] MEDS: Propranolol HCL LA 60 MG CAP.SA.24H 120 MG PO (12:10)
[2023-06-14] MEDS: OXcarbazepine 300 MG TABLET 600 MG PO ×2 (12:10→17:40)
[2023-06-14] MEDS: Levothyroxine Sodium 25 MCG TABLET 12.5 MCG PO (12:10)
[2023-06-14] MEDS: Omeprazole 20 MG CAPSULE.DR PO (12:10)
[2023-06-14] MEDS: Simethicone 80 MG TAB.CHEW PO ×3 (12:11→22:49)
[2023-06-14] MEDS: OLANZapine 7.5 MG TABLET 15 MG PO ×2 (12:11→22:49)
[2023-06-14] MEDS: Furosemide 40 MG TABLET PO ×2 (12:11→17:40)
[2023-06-14] MEDS: QUEtiapine Fumarate 300 MG TABLET PO ×3 (12:11→22:51)
[2023-06-14] MEDS: Divalproex Sodium 500 MG TABLET.DR PO ×3 (12:11→22:50)
[2023-06-14] MEDS: diazePAM 2 MG TABLET PO ×2 (12:11→17:40)
[2023-06-14] MEDS: Lidocaine 4 % Patch ADH..PATCH 1 PATCH TRANSDERMA (12:12)
[2023-06-14] MEDS: diazePAM 10 MG/2 ML CARTRIDGE IM (13:40)
[2023-06-14 16:55] VITALS: BP 104/55; PULSE 72; TEMP 35.9
[2023-06-14] MEDS: Atorvastatin Calcium 10 MG TABLET PO (22:50)
[2023-06-14] MEDS: clomiPRAMINE HCl 25 MG CAPSULE 75 MG PO (22:50)
[2023-06-14] MEDS: diazePAM 2 MG TABLET 4 MG PO (22:50)
[2023-06-14] MEDS: traZODone HCL 100 MG TABLET PO (22:51)
[2023-06-15] MEDS: Acetaminophen 325 MG TABLET 650 MG PO (00:03)
[2023-06-15] MEDS: Zolpidem Tartrate 5 MG TABLET PO (02:39)
--- NOTE | 2023-06-15 06:50 | PC.NURSE ---
Patient notified this typewriter mechanic that she found a raised rash/bite areas on her right hand. Utilized PRN hydrocortisone cream to affected area. Patient reported increased swelling in the area. Provider notified and hospitalist consult placed to assess.
[2023-06-15 08:00] VITALS: BP 142/90; PULSE 88; RESP 16; TEMP 36.8; O2SAT 94
[2023-06-15] MEDS: OLANZapine 10 MG TABLET PO (08:03)
[2023-06-15] MEDS: QUEtiapine Fumarate 300 MG TABLET PO ×2 (08:04→16:45)
[2023-06-15] MEDS: Levothyroxine Sodium 25 MCG TABLET 12.5 MCG PO (08:04)
[2023-06-15] MEDS: OXcarbazepine 300 MG TABLET 600 MG PO ×2 (08:04→16:45)
[2023-06-15] MEDS: Simethicone 80 MG TAB.CHEW PO ×2 (08:04→16:45)
[2023-06-15] MEDS: Furosemide 40 MG TABLET PO ×2 (08:04→16:45)
[2023-06-15] MEDS: diazePAM 2 MG TABLET PO ×2 (08:04→16:46)
[2023-06-15] MEDS: Omeprazole 20 MG CAPSULE.DR PO (08:05)
[2023-06-15] MEDS: Propranolol HCL LA 60 MG CAP.SA.24H 120 MG PO (08:05)
[2023-06-15] MEDS: Divalproex Sodium 500 MG TABLET.DR PO ×2 (08:05→16:45)
[2023-06-15] MEDS: Lidocaine 4 % Patch ADH..PATCH 1 PATCH TRANSDERMA (08:09)
[2023-06-15] MEDS: polyethylene glycoL 3350 17 GM POWD.PACK PO (08:11)
[2023-06-15] MEDS: diazePAM 10 MG/2 ML CARTRIDGE IM (11:04)
--- NOTE | 2023-06-15 11:58 | PM.EVENT ---
Event Note Date of Service: 06/15/23 Event Note: Medical consult for swelling and bug bites on the right hand. Patient states she awoke this morning to itching and swelling on the 1st and 2nd digits on her right hand likely secondary to bug bites. Patient applied hydrocortisone cream to the area and no longer feels any itching. Still reports swelling to the fingers. Physical examination reveals small erythematous welt at the site of likely bug bite on 3rd distal digit, but any widespread digit swelling difficult to appreciate d/t generalized upper extremity edema bilaterally. Pt should continue to apply hydrocortisone cream prn for itching and swelling. Thank you for allowing us to participate in the care of this patient. Signing off at this time. Please let us know if there are any acute complaints or questions. Time Spent With Patient Time: Total time managing care of this patient today ____ minutes.
--- NOTE | 2023-06-15 16:39 | HO.PSYCHPN ---
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 medications again with Dr. 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 While droperidol has been using the past for similar situations, patient has Haldol listed as an allergy which has very similar chemical structured true droperidol. 05/16 Continue current regime and plan of care. 05/18: Continue current regimen and plans. Continue to 1 observation 05/19 continue current regimen and plans. Increased Ambien to 10 mg q.h.s. 05/21 patient remains in relatively good behavioral/impulse control and has advancing privileges Continued discussions with [facility] about transfer to [facility] facility 05/22 patient welcomed the news that there is a bed at [facility]; remains in good behavioral control. Privileges advance to axis to the kitchen though not groups yet 05/23/23: Pt is advancing privileges. Daniel Aquino prn x 1. Continue current regime and plan of care. 05/24/23: Pt is attending some groups today. Daniel Aquino prn x 1. Continue current regime and plan of care. States she is excited to transfer to another facility next week. 05/25/23: Continue regime and plan. Pt attending group today and reports depression/anxiety regarding transfer. 05/26/23: Support pt in preparation to transfer. Diagnostics ordered for 05/27/23. 05/27 continue tx. 05/28 Diagnostics pre transfer completed, reviewed. Levothyroxine 25 mcg daily Lipitor 20 mg hs 05/29/23 Support pt in transition. 05/30/23 Reports feeling dizzy, thirsty, with decrease in appetite and diaphoretic. Diagnostics Decrease Levothyroxine to 12.5 mcg daily Decrease Atorvastatin to 10 mg daily 05/31/23 TSH is now WNL Continue current regime and plan. 05/1223 the patient complains of nausea, poor appetite for the last 2 days and headaches. She had fused PRNs. I am ordering CBC with differential and comprehensive metabolic panel. I am starting Xanax up to 0.25 bid schedule, first dose now. 06/02 Keep same treatment. 06/03 likely nausea, poor appetite and headaches over the past 2 days were due to inadvertent discontinuation of clonazepam 1.5 mg t.i.d.; in order to simplify medication regimen, will switch to diazepam 2 mg t.i.d. and discontinue the scheduled Xanax. Also will make levothyroxine ordered for later in the day; while this is typically given early in the morning, before medication and food, it is agitating for patient to be woken up 06/04 frustrated today wanting to transfer; remains able to use coping skills (last night removed herself from situation in [place] she could tell would be triggering). Discussed with admin pending court case for assault charges filed against her 06/06 patient attended hearing during which time she became dysregulated and ended up being physically/chemically restrained. Of note, it is health science writer's opinion that the court interacted with patient in such a way without taking into consideration her mental health issues, limitations and ability to process information and there was considerable concern leading up to the event that patient would be able to tolerate it at all. In hindsight, would have offered patient PRNs prior to court proceedings (she did get them during but not soon enough); also patient did not realize that she was allowed to wave her right to continue hearing the charges and leave the forum which she said she would have done had she known this was allowed 06/07 continue treatment plan; has very specific privileges; discussed with nursing 06/10 doing well; using coping skills and staying safe. Repeat court tomorrow. Patient considering waving her rights to attend 06/13 patient remains in good behavioral and impulse control; utilizing PRNs as needed; has asked for increased diazepam dose for PRNs as she may be developing some tolerance. Will consider 06/14 patient more irritable today, feeling depressed that transfer to long-term facilities taking so long; reaching out to staff to help her cope through it and taking PRNs. Having trouble sleeping as well. Will review medications to adjust 06/15/23: No changes to treatment plan and note that can receive IM Valium, Geodon or Versed with patient agreement and circumstances appropriate Reason for continued inpatient stay Substantial Risk for: inability to function Time Spent With Patient Time: Total time managing care of this patient today ____ minutes.
[2023-06-15 16:40] VITALS: BP 124/78; PULSE 86; RESP 16; TEMP 36.6
[2023-06-16] MEDS: Atorvastatin Calcium 10 MG TABLET PO ×2 (00:22→21:02)
[2023-06-16] MEDS: clomiPRAMINE HCl 25 MG CAPSULE 75 MG PO ×2 (00:22→21:02)
[2023-06-16] MEDS: Simethicone 80 MG TAB.CHEW PO ×3 (00:23→21:02)
[2023-06-16] MEDS: QUEtiapine Fumarate 300 MG TABLET PO ×3 (00:23→21:02)
[2023-06-16] MEDS: Divalproex Sodium 500 MG TABLET.DR PO ×3 (00:23→21:02)
[2023-06-16] MEDS: diazePAM 2 MG TABLET 4 MG PO ×2 (00:23→21:02)
[2023-06-16] MEDS: traZODone HCL 100 MG TABLET PO ×2 (00:23→21:02)
[2023-06-16] MEDS: OLANZapine 10 MG TABLET 20 MG PO ×2 (00:23→21:02)
[2023-06-16] MEDS: Ziprasidone 20 MG CAPSULE PO ×2 (00:28→22:12)
[2023-06-16] MEDS: Furosemide 40 MG TABLET PO ×2 (08:11→21:03)
[2023-06-16] MEDS: polyethylene glycoL 3350 17 GM POWD.PACK PO (08:11)
[2023-06-16] MEDS: diazePAM 2 MG TABLET PO (08:11)
[2023-06-16] MEDS: Omeprazole 20 MG CAPSULE.DR PO (08:12)
[2023-06-16] MEDS: OLANZapine 10 MG TABLET PO (08:12)
[2023-06-16] MEDS: OXcarbazepine 300 MG TABLET 600 MG PO (08:12)
[2023-06-16] MEDS: Levothyroxine Sodium 25 MCG TABLET 12.5 MCG PO (08:13)
[2023-06-16] MEDS: Propranolol HCL LA 60 MG CAP.SA.24H 120 MG PO (08:13)
[2023-06-16 08:15] VITALS: BP 133/82; PULSE 83; RESP 16; TEMP 36.2; O2SAT 95
[2023-06-16] MEDS: Lidocaine 4 % Patch ADH..PATCH 1 PATCH TRANSDERMA (08:34)
--- NOTE | 2023-06-16 13:22 | HO.PSYCHPN ---
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 (who was eventually transferred off the unit); with much difficulty she was able to be redirected 05/15 thus far patient remaining in behavioral control, asking for PRNs. 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 While droperidol has been using the past for similar situations, patient has Haldol listed as an allergy which has very similar chemical structured true droperidol. 05/16 Continue current regime and plan of care. 05/18: Continue current regimen and plans. Continue to 1 observation 05/19 continue current regimen and plans. Increased Ambien to 10 mg q.h.s. 05/21 patient remains in relatively good behavioral/impulse control and has advancing privileges Continued discussions with [facility] about transfer to [facility] facility 05/22 patient welcomed the news that there is a bed at [facility]; remains in good behavioral control. Privileges advance to axis to the kitchen though not groups yet 05/23/23: Pt is advancing privileges. Daniel Aquino prn x 1. Continue current regime and plan of care. 05/24/23: Pt is attending some groups today. Daniel Aquino prn x 1. Continue current regime and plan of care. States she is excited to transfer to another facility next week. 05/25/23: Continue regime and plan. Pt attending group today and reports depression/anxiety regarding transfer. 05/26/23: Support pt in preparation to transfer. Diagnostics ordered for 05/27/23. 05/27 continue tx. 05/28 Diagnostics pre transfer completed, reviewed. Levothyroxine 25 mcg daily Lipitor 20 mg hs 05/29/23 Support pt in transition. 05/30/23 Reports feeling dizzy, thirsty, with decrease in appetite and diaphoretic. Diagnostics Decrease Levothyroxine to 12.5 mcg daily Decrease Atorvastatin to 10 mg daily 05/31/23 TSH is now WNL Continue current regime and plan. 05/1223 the patient complains of nausea, poor appetite for the last 2 days and headaches. She had fused PRNs. I am ordering CBC with differential and comprehensive metabolic panel. I am starting Xanax up to 0.25 bid schedule, first dose now. 06/02 Keep same treatment. 06/03 likely nausea, poor appetite and headaches over the past 2 days were due to inadvertent discontinuation of clonazepam 1.5 mg t.i.d.; in order to simplify medication regimen, will switch to diazepam 2 mg t.i.d. and discontinue the scheduled Xanax. Also will make levothyroxine ordered for later in the day; while this is typically given early in the morning, before medication and food, it is agitating for patient to be woken up 06/04 frustrated today wanting to transfer; remains able to use coping skills (last night removed herself from situation in [place] she could tell would be triggering). Discussed with admin pending court case for assault charges filed against her 06/06 patient attended hearing during which time she became dysregulated and ended up being physically/chemically restrained. Of note, it is resume writer's opinion that the court interacted with patient in such a way without taking into consideration her mental health issues, limitations and ability to process information and there was considerable concern leading up to the event that patient would be able to tolerate it at all. In hindsight, would have offered patient PRNs prior to court proceedings (she did get them during but not soon enough); also patient did not realize that she was allowed to wave her right to continue hearing the charges and leave the forum which she said she would have done had she known this was allowed 06/07 continue treatment plan; has very specific privileges; discussed with nursing 06/10 doing well; using coping skills and staying safe. Repeat court tomorrow. Patient considering waving her rights to attend 06/13 patient remains in good behavioral and impulse control; utilizing PRNs as needed; has asked for increased diazepam dose for PRNs as she may be developing some tolerance. Will consider 06/14 patient more irritable today, feeling depressed that transfer to long-term facilities taking so long; reaching out to staff to help her cope through it and taking PRNs. Having trouble sleeping as well. Will review medications to adjust 06/16/23: No changes to treatment plan and note that can receive IM Valium, Geodon or Versed with patient agreement and circumstances appropriate Reason for continued inpatient stay Substantial Risk for: harm to others Time Spent With Patient Time: Total time managing care of this patient today ____ minutes.
[2023-06-16] MEDS: Prazosin HCL 1 MG CAPSULE 2 MG PO (21:02)
[2023-06-16 22:06] VITALS: BP 126/87; PULSE 77; RESP 20; TEMP 36.2; O2SAT 94
[2023-06-16] MEDS: Zolpidem Tartrate 5 MG TABLET PO (22:12)
[2023-06-16] MEDS: diazePAM 5 MG TABLET 10 MG PO (22:13)
[2023-06-17] MEDS: ALPRAZolam 0.5 MG TABLET PO (01:49)
[2023-06-17] MEDS: Zolpidem Tartrate 5 MG TABLET PO (01:49)
--- NOTE | 2023-06-17 05:43 | PC.NURSE ---
Patient approached this financial writer regarding her excessive sleeping during the day. If she falls asleep, she would like to be woken up so that she can stay on a normal sleeping schedule.
--- NOTE | 2023-06-17 09:53 | P.PNPSI_ITS ---
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 Can Sorter discussed medications again with Dr. 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 Jeremías limon droperidol has been using the past for similar situations, patient has Haldol listed as an allergy which has very similar chemical structured true droperidol. 05/16 Continue current regime and plan of care. 05/18: Continue current regimen and plans. Continue to 1 observation 05/19 continue current regimen and plans. Increased Ambien to 10 mg q.h.s. 05/21 patient remains in relatively good behavioral/impulse control and has advancing privileges Continued discussions with [facility] about transfer to [facility] facility 05/22 patient welcomed the news that there is a bed at [facility]; remains in good behavioral control. Privileges advance to axis to the kitchen though not groups yet 05/23/23: Pt is advancing privileges. Daniel Aquino prn x 1. Continue current regime and plan of care. 05/24/23: Pt is attending some groups today. Daniel Aquino prn x 1. Continue current regime and plan of care. States she is excited to transfer to another facility next week. 05/25/23: Continue regime and plan. Pt attending group today and reports depression/anxiety regarding transfer. 05/26/23: Support pt in preparation to transfer. Diagnostics ordered for 05/27/23. 05/27 continue tx. 05/28 Diagnostics pre transfer completed, reviewed. Levothyroxine 25 mcg daily Lipitor 20 mg hs 05/29/23 Support pt in transition. 05/30/23 Reports feeling dizzy, thirsty, with decrease in appetite and diap horetic. Diagnostics Decrease Levothyroxine to 12.5 mcg daily Decrease Atorvastatin to 10 mg daily 05/31/23 TSH is now WNL Continue current regime and plan. 05/1223 the patient complains of nausea, poor appetite for the last 2 days and headaches. She had fused PRNs. I am ordering CBC with differential and comprehensive metabolic panel. I am starting Xanax up to 0.25 bid schedule, first dose now. 06/02 Keep same treatment. 06/03 likely nausea, poor appetite and headaches over the past 2 days were due to inadvertent discontinuation of clonazepam 1.5 mg t.i.d.; in order to simplify medication regimen, will switch to diazepam 2 mg t.i.d. and discontinue the scheduled Xanax. Also will make levothyroxine ordered for later in the day; while this is typically given early in the morning, before medication and food, it is agitating for patient to be woken up 06/04 frustrated today wanting to transfer; remains able to use coping skills (last night removed herself from situation in [place] she could tell would be triggering). Discussed with admin pending court case for assault charges filed against her 06/06 patient attended hearing during which time she became dysregulated and ended up being physically/chemically restrained. Of note, it is junior technical writer's opinion that the court interacted with patient in such a way without taking into consideration her mental health issues, limitations and ability to process information and there was considerable concern leading up to the event that patient would be able to tolerate it at all. In hindsight, would have offered patient PRNs prior to court proceedings (she did get them during but not soon en ); also patient did not realize that she was allowed to wave her right to continue hearing the charges and leave the forum which she said she would have done had she known this was allowed 06/07 continue treatment plan; has very specific privileges; discussed with nursing 06/10 doing well; using coping skills and staying safe. Repeat court tomorrow. Patient considering waving her rights to attend 06/13 patient remains in good behavioral and impulse control; utilizing PRNs as needed; has asked for increased diazepam dose for PRNs as she may be developing some tolerance. Will consider 06/14 patient more irritable today, feeling depressed that transfer to long-term facilities taking so long; reaching out to staff to help her cope through it and taking PRNs. Having trouble sleeping as well. Will review medications to adjust 06/16/23: No changes to treatment plan and note that can receive IM Valium, Geodon or Versed with patient agreement and circumstances appropriate 06/17 continue treatment plan Patient educated on: diagnosis Informed Consent: understands Reason for continued inpatient stay Substantial Risk for: harm to self, harm to others and inability to function Time Spent With Patient Time: Total time managing care of this patient today ____ minutes.
[2023-06-17 10:00] VITALS: BP 121/85; PULSE 90; RESP 18; TEMP 36.5; O2SAT 97
[2023-06-17] MEDS: Furosemide 40 MG TABLET PO (10:00)
[2023-06-17] MEDS: OXcarbazepine 300 MG TABLET 600 MG PO ×2 (10:00→14:50)
[2023-06-17] MEDS: Simethicone 80 MG TAB.CHEW PO ×3 (10:00→22:00)
[2023-06-17] MEDS: polyethylene glycoL 3350 17 GM POWD.PACK PO ×2 (10:00→21:58)
[2023-06-17] MEDS: diazePAM 2 MG TABLET PO ×2 (10:00→14:50)
[2023-06-17] MEDS: Propranolol HCL LA 60 MG CAP.SA.24H 120 MG PO (10:01)
[2023-06-17] MEDS: Levothyroxine Sodium 25 MCG TABLET 12.5 MCG PO (10:01)
[2023-06-17] MEDS: Omeprazole 20 MG CAPSULE.DR PO (10:01)
[2023-06-17] MEDS: Divalproex Sodium 500 MG TABLET.DR PO ×3 (10:01→22:03)
[2023-06-17] MEDS: QUEtiapine Fumarate 300 MG TABLET PO ×3 (10:01→22:03)
[2023-06-17] MEDS: OLANZapine 10 MG TABLET PO (10:01)
[2023-06-17 17:35] VITALS: BP 101/59; PULSE 77; TEMP 35.7
[2023-06-17] MEDS: clomiPRAMINE HCl 25 MG CAPSULE 75 MG PO (21:59)
[2023-06-17] MEDS: diazePAM 2 MG TABLET 4 MG PO (22:01)
[2023-06-17] MEDS: OLANZapine 10 MG TABLET 20 MG PO (22:02)
[2023-06-17] MEDS: traZODone HCL 100 MG TABLET PO (22:04)
[2023-06-17] MEDS: Atorvastatin Calcium 10 MG TABLET PO (22:04)
[2023-06-17] MEDS: Prazosin HCL 1 MG CAPSULE 2 MG PO (22:04)
[2023-06-18] MEDS: Propranolol HCL LA 60 MG CAP.SA.24H 120 MG PO (09:09)
[2023-06-18] MEDS: OXcarbazepine 300 MG TABLET 600 MG PO ×2 (09:09→16:08)
[2023-06-18] MEDS: OLANZapine 10 MG TABLET PO (09:09)
[2023-06-18] MEDS: diazePAM 2 MG TABLET PO ×2 (09:10→16:08)
[2023-06-18] MEDS: Furosemide 40 MG TABLET PO ×2 (09:10→16:27)
[2023-06-18] MEDS: Divalproex Sodium 500 MG TABLET.DR PO ×3 (09:10→20:50)
[2023-06-18] MEDS: polyethylene glycoL 3350 17 GM POWD.PACK PO ×2 (09:10→20:53)
[2023-06-18] MEDS: Omeprazole 20 MG CAPSULE.DR PO (09:10)
[2023-06-18] MEDS: QUEtiapine Fumarate 300 MG TABLET PO ×3 (09:10→20:51)
[2023-06-18] MEDS: Levothyroxine Sodium 25 MCG TABLET 12.5 MCG PO (09:10)
[2023-06-18] MEDS: Simethicone 80 MG TAB.CHEW PO ×3 (09:10→20:50)
[2023-06-18] MEDS: diazePAM 10 MG/2 ML CARTRIDGE IM (09:18)
--- NOTE | 2023-06-18 09:35 | HO.PSYCHPN ---
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 [employer] Professor discussed medications again with Dr. 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 While droperidol has been using the past for similar situations, patient has Haldol listed as an allergy which has very similar chemical structured true droperidol. 05/16 Continue current regime and plan of care. 05/18: Continue current regimen and plans. Continue to 1 observation 05/19 continue current regimen and plans. Increased Ambien to 10 mg q.h.s. 05/21 patient remains in relatively good behavioral/impulse control and has advancing privileges Continued discussions with [facility] about transfer to [facility] facility 05/22 patient welcomed the news that there is a bed at [facility]; remains in good behavioral control. Privileges advance to axis to the kitchen though not groups yet 05/23/23: Pt is advancing privileges. Daniel Aquino prn x 1. Continue current regime and plan of care. 05/24/23: Pt is attending some groups today. Carmen Aquinoium prn x 1. Continue current regime and plan of care. States she is excited to transfer to another facility next week. 05/25/23: Continue regime and plan. Pt attending group today and reports depression/anxiety regarding transfer. 05/26/23: Support pt in preparation to transfer. Diagnostics ordered for 05/27/23. 05/27 continue tx. 05/28 Diagnostics pre transfer completed, reviewed. Levothyroxine 25 mcg daily Lipitor 20 mg hs 05/29/23 Support pt in transition. 05/30/23 Reports feeling dizzy, thirsty, with decrease in appetite and diaphoretic. Diagnostics Decrease Levothyroxine to 12.5 mcg daily Decrease Atorvastatin to 10 mg daily 05/31/23 TSH is now WNL Continue current regime and plan. 05/1223 the patient complains of nausea, poor appetite for the last 2 days and headaches. She had fused PRNs. I am ordering CBC with differential and comprehensive metabolic panel. I am starting Xanax up to 0.25 bid schedule, first dose now. 06/02 Keep same treatment. 06/03 likely nausea, poor appetite and headaches over the past 2 days were due to inadvertent discontinuation of clonazepam 1.5 mg t.i.d.; in order to simplify medication regimen, will switch to diazepam 2 mg t.i.d. and discontinue the scheduled Xanax. Also will make levothyroxine ordered for later in the day; while this is typically given early in the morning, before medication and food, it is agitating for patient to be woken up 06/04 frustrated today wanting to transfer; remains able to use coping skills (last night removed herself from situation in [place] she could tell would be triggering). Discussed with admin pending court case for assault charges filed against her 06/06 patient attended hearing during which time she became dysregulated and ended up being physically/chemically restrained. Of note, it is ticket writer's opinion that the court interacted with patient in such a way without taking into consideration her mental health issues, limitations and ability to process information and there was considerable concern leading up to the event that patient would be able to tolerate it at all. In hindsight, would have offered patient PRNs prior to court proceedings (she did get them during but not soon enough); also patient did not realize that she was allowed to wave her right to continue hearing the charges and leave the forum which she said she would have done had she known this was allowed 06/07 continue treatment plan; has very specific privileges; discussed with nursing 06/10 doing well; using coping skills and staying safe. Repeat court tomorrow. Patient considering waving her rights to attend 06/13 patient remains in good behavioral and impulse control; utilizing PRNs as needed; has asked for increased diazepam dose for PRNs as she may be developing some tolerance. Will consider 06/14 patient more irritable today, feeling depressed that transfer to long-term facilities taking so long; reaching out to staff to help her cope through it and taking PRNs. Having trouble sleeping as well. Will review medications to adjust 06/16/23: No changes to treatment plan and note that can receive IM Valium, Geodon or Versed with patient agreement and circumstances appropriate 06/17 continue treatment plan Patient educated on: therapeutic strategies Informed Consent: understands Reason for continued inpatient stay Substantial Risk for: harm to self, harm to others and inability to function Time Spent With Patient Time: Total time managing care of this patient today ____ minutes.
[2023-06-18 10:00] VITALS: BP 135/79; PULSE 88; RESP 18; TEMP 36.1; O2SAT 95
[2023-06-18 16:20] VITALS: BP 118/69; PULSE 83; TEMP 35.8
[2023-06-18] MEDS: Acetaminophen 325 MG TABLET 650 MG PO (16:24)
[2023-06-18 20:40] VITALS: BP 108/61; PULSE 60; TEMP 36.1
[2023-06-18] MEDS: Atorvastatin Calcium 10 MG TABLET PO (20:47)
[2023-06-18] MEDS: Prazosin HCL 1 MG CAPSULE 2 MG PO (20:47)
[2023-06-18] MEDS: clomiPRAMINE HCl 25 MG CAPSULE 75 MG PO (20:48)
[2023-06-18] MEDS: traZODone HCL 100 MG TABLET PO (20:49)
[2023-06-18] MEDS: OLANZapine 10 MG TABLET 20 MG PO (20:49)
[2023-06-18] MEDS: diazePAM 2 MG TABLET 4 MG PO (20:50)
[2023-06-19] MEDS: Propranolol HCL LA 60 MG CAP.SA.24H 120 MG PO (08:07)
[2023-06-19] MEDS: Divalproex Sodium 500 MG TABLET.DR PO ×3 (08:07→20:31)
[2023-06-19] MEDS: QUEtiapine Fumarate 300 MG TABLET PO ×3 (08:07→20:31)
[2023-06-19] MEDS: Omeprazole 20 MG CAPSULE.DR PO (08:07)
[2023-06-19] MEDS: Levothyroxine Sodium 25 MCG TABLET 12.5 MCG PO (08:07)
[2023-06-19] MEDS: diazePAM 2 MG TABLET PO ×2 (08:07→14:34)
[2023-06-19] MEDS: OXcarbazepine 300 MG TABLET 600 MG PO ×2 (08:07→14:34)
[2023-06-19] MEDS: Simethicone 80 MG TAB.CHEW PO ×3 (08:07→20:31)
[2023-06-19] MEDS: OLANZapine 10 MG TABLET PO (08:07)
[2023-06-19] MEDS: Furosemide 40 MG TABLET PO (08:08)
[2023-06-19] MEDS: Lidocaine 4 % Patch ADH..PATCH 1 PATCH TRANSDERMA (08:13)
[2023-06-19] MEDS: polyethylene glycoL 3350 17 GM POWD.PACK PO ×2 (08:13→20:30)
[2023-06-19 10:00] VITALS: BP 125/79; PULSE 89; RESP 18; TEMP 36.2; O2SAT 96
--- NOTE | 2023-06-19 10:40 | HO.PSYCHPN ---
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 Patient is constipated and receiving treatment However patient complains of worsening abdominal pain; discussed with staff and on-call provider to be aware Currently labs and vitals all WNL 05/10 pt reports constipation some abdominal cramping- simethicone added- pending effect, afebrile, no signs of infection (no leukocytosis), seen by hospitalist. KUB not showing obstruction but does show moderate constipation. May want to recheck TSH and treat if elevated. Pt remains in behavioral concerns. 05/11: Modified bowel regimen. DC Lactulose. Miralax BID rather than QID. 05/13: Remained in good behavioral control throughout the weekend and today, utilizing PRNs frequently -invoking HCP (see above) 05/14 patient dysregulated, through lunch at social group worker; than tried to cut her arms with a spoon, needed mechanical/chemical restraint; calm down but again got dysregulated, tried to cut her arm with another plastic piece and required mechanical/chemical restraint; later that evening patient was triggered by a provocative peer (who was eventually transferred off the unit); with much difficulty she was able to be redirected 05/15 thus far patient remaining in behavioral control, asking for PRNs. T[employer] Groover discussed medications again with Dr. 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 While droperidol has been using the past for similar situations, patient has Haldol listed as an allergy which has very similar chemical structured true droperidol. 05/16 Continue current regime and plan of care. 05/18: Continue current regimen and plans. Continue to 1 observation 05/19 continue current regimen and plans. Increased Ambien to 10 mg q.h.s. 05/21 patient remains in relatively good behavioral/impulse control and has advancing privileges Continued discussions with [facility] about transfer to [facility] facility 05/22 patient welcomed the news that there is a bed at [facility]; remains in good behavioral control. Privileges advance to axis to the kitchen though not groups yet 05/23/23: Pt is advancing privileges. Daniel Aquino prn x 1. Continue current regime and plan of care. 05/24/23: Pt is attending some groups today. Daniel Aquino prn x 1. Continue current regime and plan of care. States she is excited to transfer to another facility next week. 05/25/23: Continue regime and plan. Pt attending group today and reports depression/anxiety regarding transfer. 05/26/23: Support pt in preparation to transfer. Diagnostics ordered for 05/27/23. 05/27 continue tx. 05/28 Diagnostics pre transfer completed, reviewed. Levothyroxine 25 mcg daily Lipitor 20 mg hs 05/29/23 Support pt in transition. 05/30/23 Reports feeling dizzy, thirsty, with decrease in appetite and diaphoretic. Diagnostics Decrease Levothyroxine to 12.5 mcg daily Decrease Atorvastatin to 10 mg daily 05/31/23 TSH is now WNL Continue current regime and plan. 05/1223 the patient complains of nausea, poor appetite for the last 2 days and headaches. She had fused PRNs. I am ordering CBC with differential and comprehensive metabolic panel. I am starting Xanax up to 0.25 bid schedule, first dose now. 06/02 Keep same treatment. 06/03 likely nausea, poor appetite and headaches over the past 2 days were due to inadvertent discontinuation of clonazepam 1.5 mg t.i.d.; in order to simplify medication regimen, will switch to diazepam 2 mg t.i.d. and discontinue the scheduled Xanax. Also will make levothyroxine ordered for later in the day; while this is typically given early in the morning, before medication and food, it is agitating for patient to be woken up 06/04 frustrated today wanting to transfer; remains able to use coping skills (last night removed herself from situation in [place] she could tell would be triggering). Discussed with admin pending court case for assault charges filed against her 06/06 patient attended hearing during which time she became dysregulated and ended up being physically/chemically restrained. Of note, it is securities underwriter's opinion that the court interacted with patient in such a way without taking into consideration her mental health issues, limitations and ability to process information and there was considerable concern leading up to the event that patient would be able to tolerate it at all. In hindsight, would have offered patient PRNs prior to court proceedings (she did get them during but not soon enough); also patient did not realize that she was allowed to wave her right to continue hearing the charges and leave the forum which she said she would have done had she known this was allowed 06/07 continue treatment plan; has very specific privileges; discussed with nursing 06/10 doing well; using coping skills and staying safe. Repeat court tomorrow. Patient considering waving her rights to attend 06/13 patient remains in good behavioral and impulse control; utilizing PRNs as needed; has asked for increased diazepam dose for PRNs as she may be developing some tolerance. Will consider 06/14 patient more irritable today, feeling depressed that transfer to long-term facilities taking so long; reaching out to staff to help her cope through it and taking PRNs. Having trouble sleeping as well. Will review medications to adjust 06/16/23: No changes to treatment plan and note that can receive IM Valium, Geodon or Versed with patient agreement and circumstances appropriate 06/17 continue treatment plan 06/18 Patient has been in overall good behavioral and impulse control. This morning however there was a multi peer verbal argument that escalated; patient was specifically provoked by a peer which triggered her and patient (at another peer) started to go after this peer but was able to be held back by staff. Patient remained emotional angry and did punch a wall but otherwise remained under self-control. Discussed further with patient who reports this was just situational incident. Team agreed the patient can continue to have privileges. -Patient asked for hand x-ray; patient reports right hand has been swollen more than the left for a while however considered maybe a little more swollen after hitting the wall. Physical exam revealed swollen right and with no exquisite tenderness on palpation (of phalanges/metacarpal/carpal). Ordered X ray Out of abundance of caution Patient educated on: diagnosis, medication risk/benefits and medical condition Informed Consent: understands Reason for continued inpatient stay Substantial Risk for: harm to self, harm to others and inability to function Time Spent With Patient Time: Total time managing care of this patient today ____ minutes.
[2023-06-19] MEDS: OLANZapine 10 MG TABLET 20 MG PO (20:30)
[2023-06-19] MEDS: clomiPRAMINE HCl 25 MG CAPSULE 75 MG PO (20:30)
[2023-06-19] MEDS: Prazosin HCL 1 MG CAPSULE 2 MG PO (20:30)
[2023-06-19] MEDS: Atorvastatin Calcium 10 MG TABLET PO (20:31)
[2023-06-19] MEDS: traZODone HCL 100 MG TABLET PO (20:31)
[2023-06-19] MEDS: diazePAM 2 MG TABLET 4 MG PO (20:31)
[2023-06-19 21:54] VITALS: BP 128/87; PULSE 88; RESP 18; TEMP 36.1; O2SAT 98
[2023-06-20 07:00] VITALS: BMI 45.5
--- NOTE | 2023-06-20 08:52 | HO.PSYCHPN ---
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 in behavioral concerns. 05/11: Modified bowel regimen. DC Lactulose. Miralax BID rather than QID. 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 Director Supplier Quality discussed medications again with Dr. 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 While droperidol has been using the past for similar situations, patient has Haldol listed as an allergy which has very similar chemical structured true droperidol. 05/16 Continue current regime and plan of care. 05/18: Continue current regimen and plans. Continue to 1 observation 05/19 continue current regimen and plans. Increased Ambien to 10 mg q.h.s. 05/21 patient remains in relatively good behavioral/impulse control and has advancing privileges Continued discussions with [facility] about transfer to [facility] facility 05/22 patient welcomed the news that there is a bed at [facility]; remains in good behavioral control. Privileges advance to axis to the kitchen though not groups yet 05/23/23: Pt is advancing privileges. Daniel Aquino prn x 1. Continue current regime and plan of care. 05/24/23: Pt is attending some groups today. Daniel Aquino prn x 1. Continue current regime and plan of care. States she is excited to transfer to another facility next week. 05/25/23: Continue regime and plan. Pt attending group today and reports depression/anxiety regarding transfer. 05/26/23: Support pt in preparation to transfer. Diagnostics ordered for 05/27/23. 05/27 continue tx. 05/28 Diagnostics pre transfer completed, reviewed. Levothyroxine 25 mcg daily Lipitor 20 mg hs 05/29/23 Support pt in transition. 05/30/23 Reports feeling dizzy, thirsty, with decrease in appetite and diaphoretic. Diagnostics Decrease Levothyroxine to 12.5 mcg daily Decrease Atorvastatin to 10 mg daily 05/31/23 TSH is now WNL Continue current regime and plan. 05/1223 the patient complains of nausea, poor appetite for the last 2 days and headaches. She had fused PRNs. I am ordering CBC with differential and comprehensive metabolic panel. I am starting Xanax up to 0.25 bid schedule, first dose now. 06/02 Keep same treatment. 06/03 likely nausea, poor appetite and headaches over the past 2 days were due to inadvertent discontinuation of clonazepam 1.5 mg t.i.d.; in order to simplify medication regimen, will switch to diazepam 2 mg t.i.d. and discontinue the scheduled Xanax. Also will make levothyroxine ordered for later in the day; while this is typically given early in the morning, before medication and food, it is agitating for patient to be woken up 06/04 frustrated today wanting to transfer; remains able to use coping skills (last night removed herself from situation in [place] she could tell would be triggering). Discussed with admin pending court case for assault charges filed against her 06/06 patient attended hearing during which time she became dysregulated and ended up being physically/chemically restrained. Of note, it is specifications writer's opinion that the court interacted with patient in such a way without taking into consideration her mental health issues, limitations and ability to process information and there was considerable concern leading up to the event that patient would be able to tolerate it at all. In hindsight, would have offered patient PRNs prior to court proceedings (she did get them during but not soon enough); also patient did not realize that she was allowed to wave her right to continue hearing the charges and leave the forum which she said she would have done had she known this was allowed 06/07 continue treatment plan; has very specific privileges; discussed with nursing 06/10 doing well; using coping skills and staying safe. Repeat court tomorrow. Patient considering waving her rights to attend 06/13 patient remains in good behavioral and impulse control; utilizing PRNs as needed; has asked for increased diazepam dose for PRNs as she may be developing some tolerance. Will consider 06/14 patient more irritable today, feeling depressed that transfer to long-term facilities taking so long; reaching out to staff to help her cope through it and taking PRNs. Having trouble sleeping as well. Will review medications to adjust 06/16/23: No changes to treatment plan and note that can receive IM Valium, Geodon or Versed with patient agreement and circumstances appropriate 06/17 continue treatment plan 06/18 Patient has been in overall good behavioral and impulse control. This morning however there was a multi peer verbal argument that escalated; patient was specifically provoked by a peer which triggered her and patient (at another peer) started to go after this peer but was able to be held back by staff. Patient remained emotional angry and did punch a wall but otherwise remained under self-control. Discussed further with patient who reports this was just situational incident. Team agreed the patient can continue to have privileges. -Patient asked for hand x-ray; patient reports right hand has been swollen more than the left for a while however considered maybe a little more swollen after hitting the wall. Physical exam revealed swollen right and with no exquisite tenderness on palpation (of phalanges/metacarpal/carpal). Ordered X ray Out of abundance of caution 06/20 continue current treatment plan; right hand x-ray reveals no fracture Patient educated on: diagnosis and medical condition Informed Consent: understands Reason for continued inpatient stay Substantial Risk for: harm to self, harm to others and inability to function Time Spent With Patient Time: Total time managing care of this patient today ____ minutes.
[2023-06-20] MEDS: Levothyroxine Sodium 25 MCG TABLET 12.5 MCG PO (09:12)
[2023-06-20] MEDS: Propranolol HCL LA 60 MG CAP.SA.24H 120 MG PO (09:13)
[2023-06-20] MEDS: Omeprazole 20 MG CAPSULE.DR PO (09:13)
[2023-06-20] MEDS: diazePAM 2 MG TABLET PO ×2 (09:14→14:03)
[2023-06-20] MEDS: Furosemide 40 MG TABLET PO ×2 (09:14→17:01)
[2023-06-20] MEDS: Divalproex Sodium 500 MG TABLET.DR PO ×3 (09:14→20:16)
[2023-06-20] MEDS: QUEtiapine Fumarate 300 MG TABLET PO ×3 (09:14→20:16)
[2023-06-20] MEDS: Simethicone 80 MG TAB.CHEW PO ×4 (09:15→20:16)
[2023-06-20] MEDS: OLANZapine 10 MG TABLET PO (09:15)
[2023-06-20] MEDS: polyethylene glycoL 3350 17 GM POWD.PACK PO ×2 (09:15→20:16)
[2023-06-20] MEDS: OXcarbazepine 300 MG TABLET 600 MG PO ×2 (09:15→14:03)
[2023-06-20] MEDS: Lidocaine 4 % Patch ADH..PATCH 1 PATCH TRANSDERMA (09:16)
[2023-06-20 09:18] VITALS: BP 132/62; PULSE 87; RESP 16; TEMP 36.2; O2SAT 97
[2023-06-20] MEDS: Acetaminophen 325 MG TABLET 650 MG PO (17:23)
[2023-06-20] MEDS: traZODone HCL 100 MG TABLET PO (20:16)
[2023-06-20] MEDS: Atorvastatin Calcium 10 MG TABLET PO (20:16)
[2023-06-20] MEDS: diazePAM 2 MG TABLET 4 MG PO (20:16)
[2023-06-20] MEDS: clomiPRAMINE HCl 25 MG CAPSULE 75 MG PO (20:17)
[2023-06-20] MEDS: Prazosin HCL 1 MG CAPSULE 2 MG PO (20:17)
[2023-06-20] MEDS: OLANZapine 10 MG TABLET 20 MG PO (20:17)
[2023-06-20 22:00] VITALS: BP 118/68; PULSE 68; RESP 16; TEMP 36.4; O2SAT 98
[2023-06-21] MEDS: Lidocaine 4 % Patch ADH..PATCH 1 PATCH TRANSDERMA (08:37)
[2023-06-21] MEDS: OXcarbazepine 300 MG TABLET 600 MG PO ×2 (08:37→14:01)
[2023-06-21] MEDS: Simethicone 80 MG TAB.CHEW PO ×4 (08:37→20:34)
[2023-06-21] MEDS: polyethylene glycoL 3350 17 GM POWD.PACK PO ×2 (08:37→20:35)
[2023-06-21] MEDS: Divalproex Sodium 500 MG TABLET.DR PO ×3 (08:37→20:34)
[2023-06-21] MEDS: diazePAM 2 MG TABLET PO ×2 (08:38→14:01)
[2023-06-21] MEDS: OLANZapine 10 MG TABLET PO (08:38)
[2023-06-21] MEDS: Propranolol HCL LA 60 MG CAP.SA.24H 120 MG PO (08:38)
[2023-06-21] MEDS: QUEtiapine Fumarate 300 MG TABLET PO ×3 (08:38→20:34)
[2023-06-21] MEDS: Omeprazole 20 MG CAPSULE.DR PO (08:38)
[2023-06-21] MEDS: Furosemide 40 MG TABLET PO ×2 (08:38→16:17)
[2023-06-21] MEDS: Levothyroxine Sodium 25 MCG TABLET 12.5 MCG PO (08:38)
[2023-06-21 09:32] VITALS: BP 120/64; PULSE 82; RESP 18
--- NOTE | 2023-06-21 09:33 | HO.PSYCHPN ---
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 concerns. 05/11: Modified bowel regimen. DC Lactulose. Miralax BID rather than QID. 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 Nuclear Control Room Operator discussed medications again with Dr. 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 While droperidol has been using the past for similar situations, patient has Haldol listed as an allergy which has very similar chemical structured true droperidol. 05/16 Continue current regime and plan of care. 05/18: Continue current regimen and plans. Continue to 1 observation 05/19 continue current regimen and plans. Increased Ambien to 10 mg q.h.s. 05/21 patient remains in relatively good behavioral/impulse control and has advancing privileges Continued discussions with [facility] about transfer to [facility] facility 05/22 patient welcomed the news that there is a bed at [facility]; remains in good behavioral control. Privileges advance to axis to the kitchen though not groups yet 05/23/23: Pt is advancing privileges. Daniel Aquino prn x 1. Continue current regime and plan of care. 05/24/23: Pt is attending some groups today. Daniel Aquino prn x 1. Continue current regime and plan of care. States she is excited to transfer to another facility next week. 05/25/23: Continue regime and plan. Pt attending group today and reports depression/anxiety regarding transfer. 05/26/23: Support pt in preparation to transfer. Diagnostics ordered for 05/27/23. 05/27 continue tx. 05/28 Diagnostics pre transfer completed, reviewed. Levothyroxine 25 mcg daily Lipitor 20 mg hs 05/29/23 Support pt in transition. 05/30/23 Reports feeling dizzy, thirsty, with decrease in appetite and diaphoretic. Diagnostics Decrease Levothyroxine to 12.5 mcg daily Decrease Atorvastatin to 10 mg daily 05/31/23 TSH is now WNL Continue current regime and plan. 05/1223 the patient complains of nausea, poor appetite for the last 2 days and headaches. She had fused PRNs. I am ordering CBC with differential and comprehensive metabolic panel. I am starting Xanax up to 0.25 bid schedule, first dose now. 06/02 Keep same treatment. 06/03 likely nausea, poor appetite and headaches over the past 2 days were due to inadvertent discontinuation of clonazepam 1.5 mg t.i.d.; in order to simplify medication regimen, will switch to diazepam 2 mg t.i.d. and discontinue the scheduled Xanax. Also will make levothyroxine ordered for later in the day; while this is typically given early in the morning, before medication and food, it is agitating for patient to be woken up 06/04 frustrated today wanting to transfer; remains able to use coping skills (last night removed herself from situation in [place] she could tell would be triggering). Discussed with admin pending court case for assault charges filed against her 06/06 patient attended hearing during which time she became dysregulated and ended up being physically/chemically restrained. Of note, it is designer/writer's opinion that the court interacted with patient in such a way without taking into consideration her mental health issues, limitations and ability to process information and there was considerable concern leading up to the event that patient would be able to tolerate it at all. In hindsight, would have offered patient PRNs prior to court proceedings (she did get them during but not soon enough); also patient did not realize that she was allowed to wave her right to continue hearing the charges and leave the forum which she said she would have done had she known this was allowed 06/07 continue treatment plan; has very specific privileges; discussed with nursing 06/10 doing well; using coping skills and staying safe. Repeat court tomorrow. Patient considering waving her rights to attend 06/13 patient remains in good behavioral and impulse control; utilizing PRNs as needed; has asked for increased diazepam dose for PRNs as she may be developing some tolerance. Will consider 06/14 patient more irritable today, feeling depressed that transfer to long-term facilities taking so long; reaching out to staff to help her cope through it and taking PRNs. Having trouble sleeping as well. Will review medications to adjust 06/16/23: No changes to treatment plan and note that can receive IM Valium, Geodon or Versed with patient agreement and circumstances appropriate 06/17 continue treatment plan 06/18 Patient has been in overall good behavioral and impulse control. This morning however there was a multi peer verbal argument that escalated; patient was specifically provoked by a peer which triggered her and patient (at another peer) started to go after this peer but was able to be held back by staff. Patient remained emotional angry and did punch a wall but otherwise remained under self-control. Discussed further with patient who reports this was just situational incident. Team agreed the patient can continue to have privileges. -Patient asked for hand x-ray; patient reports right hand has been swollen more than the left for a while however considered maybe a little more swollen after hitting the wall. Physical exam revealed swollen right and with no exquisite tenderness on palpation (of phalanges/metacarpal/carpal). Ordered X ray Out of abundance of caution 06/20 continue current treatment plan; right hand x-ray reveals no fracture Patient educated on: therapeutic strategies Informed Consent: understands Reason for continued inpatient stay Substantial Risk for: harm to self, harm to others and inability to function Time Spent With Patient Time: Total time managing care of this patient today ____ minutes.
[2023-06-21 10:21] LABS: IDNOW Serial# 08D9AD1C; Strep A Nucleic Acid Negative (Negative)
[2023-06-21] MEDS: Throat Spray, Medicated 177 ML BOTTLE 1 SPRAY MUCOUS MEM (11:03)
[2023-06-21 11:42] LABS: Influenza A PCR NEGATIVE (Negative); Influenza B PCR NEGATIVE (Negative); Resp Syncy Virus RNA Qual PCR NEGATIVE (Negative); SARS COV2 PCR INHOUSE NEGATIVE (Negative)
[2023-06-21 16:25] VITALS: BP 124/82; PULSE 68; RESP 16; TEMP 36.6; O2SAT 97
[2023-06-21] MEDS: OLANZapine 10 MG TABLET 20 MG PO (20:33)
[2023-06-21] MEDS: Prazosin HCL 1 MG CAPSULE 2 MG PO (20:33)
[2023-06-21] MEDS: diazePAM 2 MG TABLET 4 MG PO (20:33)
[2023-06-21] MEDS: traZODone HCL 100 MG TABLET PO (20:34)
[2023-06-21] MEDS: Atorvastatin Calcium 10 MG TABLET PO (20:34)
[2023-06-21] MEDS: clomiPRAMINE HCl 25 MG CAPSULE 75 MG PO (20:34)
--- NOTE | 2023-06-22 09:00 | P.PNPSI_ITS ---
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 and on-call provider to be aware Currently labs and vitals all WNL 05/10 pt reports constipation some abdominal cramping- simethicone added- pending effect, afebrile, no signs of infection (no leukocytosis), seen by hospitalist. KUB not showing obstruction but does show moderate constipation. May want to recheck TSH and treat if elevated. Pt remains in behavioral concerns. 05/11: Modified bowel regimen. DC Lactulose. Miralax BID rather than QID. 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 [employer] Researcher discussed medications again with Dr. 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 While droperidol has been using the past for similar situations, patient has Haldol listed as an allergy which has very similar chemical structured true droperidol. 05/16 Continue current regime and plan of care. 05/18: Continue current regimen and plans. Continue to 1 observation 05/19 continue current regimen and plans. Increased Ambien to 10 mg q.h.s. 05/21 patient remains in relatively good behavioral/impulse control and has advancing privileges Continued discussions with [facility] about transfer to [facility] facility 05/22 patient welcomed the news that there is a bed at [facility]; remains in good behavioral control. Privileges advance to axis to the kitchen though not groups yet 05/23/23: Pt is advancing privileges. Daniel Aquino prn x 1. Continue current regime and plan of care. 05/24/23: Pt is attending some groups today. Daniel Aquino prn x 1. Continue current regime and plan of care. States she is excited to transfer to another facility next week. 05/25/23: Continue regime and plan. Pt attending group today and reports depression/anxiety regarding transfer. 05/26/23: Support pt in preparation to transfer. Diagnostics ordered for 05/27/23. 05/27 continue tx. 05/28 Diagnostics pre transfer completed, reviewed. Levothyroxine 25 mcg daily Lipitor 20 mg hs 05/29/23 Support pt in transition. 05/30/23 Reports feeling dizzy, thirsty, with decrease in appetite and diaphoreti c. Diagnostics Decrease Levothyroxine to 12.5 mcg daily Decrease Atorvastatin to 10 mg daily 05/31/23 TSH is now WNL Continue current regime and plan. 05/1223 the patient complains of nausea, poor appetite for the last 2 days and headaches. She had fused PRNs. I am ordering CBC with differential and comprehensive metabolic panel. I am starting Xanax up to 0.25 bid schedule, first dose now. 06/02 Keep same treatment. 06/03 likely nausea, poor appetite and headaches over the past 2 days were due to inadvertent discontinuation of clonazepam 1.5 mg t.i.d.; in order to simplify medication regimen, will switch to diazepam 2 mg t.i.d. and discontinue the scheduled Xanax. Also will make levothyroxine ordered for later in the day; while this is typically given early in the morning, before medication and food, it is agitating for patient to be woken up 06/04 frustrated today wanting to transfer; remains able to use coping skills (last night removed herself from situation in [place] she could tell would be triggering). Discussed with admin pending court case for assault charges filed against her 06/06 patient attended hearing during which time she became dysregulated and ended up being physically/chemically restrained. Of note, it is proposal writer's opinion that the court interacted with patient in such a way without taking into consideration her mental health issues, limitations and ability to process information and there was considerable concern leading up to the event that patient would be able to tolerate it at all. In hindsight, would have offered patient PRNs prior to court proceedings (she did get them during but not soon enough); also patient did not realize that she was allowed to wave her right to continue hearing the charges and leave the forum which she said she would have done had she known this was allowed 06/07 continue treatment plan; has very specific privileges; discussed with nursing 06/10 doing well; using coping skills and staying safe. Repeat court tomorrow. Patient considering waving her rights to attend 06/13 patient remains in good behavioral and impulse control; utilizing PRNs as needed; has asked for increased diazepam dose for PRNs as she may be developing some tolerance. Will consider 06/14 patient more irritable today, feeling depressed that transfer to long-term facilities taking so long; reaching out to staff to help her cope through it and taking PRNs. Having trouble sleeping as well. Will review medications to adjust 06/16/23: No changes to treatment plan and note that can receive IM Valium, Geodon or Versed with patient agreement and circumstances appropriate 06/17 continue treatment plan 06/18 Patient has been in overall good behavioral and impulse control. This morning however there was a multi peer verbal argument that escalated; patient was specifically provoked by a peer which triggered her and patient (at another peer) started to go after this peer but was able to be held back by staff. Patient remained emotional angry and did punch a wall but otherwise remained under self-control. Discussed further with patient who reports this was just situational incident. Team agreed the patient can continue to have privileges. -Patient asked for hand x-ray; patient reports right hand has been swollen more than the left for a while however considered maybe a little more swollen after hitting the wall. Physical exam revealed swollen right and with no exquisite tenderness on palpation (of phalanges/metacarpal/carpal). 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
[2023-06-22 09:06] VITALS: BP 107/75; PULSE 92; RESP 16; TEMP 36.1; O2SAT 95
[2023-06-22] MEDS: Divalproex Sodium 500 MG TABLET.DR PO ×3 (09:07→22:22)
[2023-06-22] MEDS: Lidocaine 4 % Patch ADH..PATCH 1 PATCH TRANSDERMA (09:07)
[2023-06-22] MEDS: polyethylene glycoL 3350 17 GM POWD.PACK PO ×2 (09:07→22:24)
[2023-06-22] MEDS: QUEtiapine Fumarate 300 MG TABLET PO ×3 (09:07→22:19)
[2023-06-22] MEDS: Furosemide 40 MG TABLET PO ×2 (09:08→16:35)
[2023-06-22] MEDS: Omeprazole 20 MG CAPSULE.DR PO (09:08)
[2023-06-22] MEDS: OXcarbazepine 300 MG TABLET 600 MG PO ×2 (09:08→16:35)
[2023-06-22] MEDS: Levothyroxine Sodium 25 MCG TABLET 12.5 MCG PO (09:08)
[2023-06-22] MEDS: Propranolol HCL LA 60 MG CAP.SA.24H 120 MG PO (09:08)
[2023-06-22] MEDS: OLANZapine 10 MG TABLET PO (09:08)
[2023-06-22] MEDS: Simethicone 80 MG TAB.CHEW PO ×3 (09:09→22:20)
[2023-06-22] MEDS: diazePAM 2 MG TABLET PO ×2 (09:09→16:34)
[2023-06-22 16:25] VITALS: BP 122/64; PULSE 89; TEMP 35.6
[2023-06-22] MEDS: Prazosin HCL 1 MG CAPSULE 2 MG PO (22:17)
[2023-06-22] MEDS: clomiPRAMINE HCl 25 MG CAPSULE 100 MG PO (22:18)
[2023-06-22] MEDS: traZODone HCL 100 MG TABLET PO (22:19)
[2023-06-22] MEDS: OLANZapine 10 MG TABLET 20 MG PO (22:19)
[2023-06-22] MEDS: diazePAM 2 MG TABLET 4 MG PO (22:20)
[2023-06-22] MEDS: Atorvastatin Calcium 10 MG TABLET PO (22:21)
[2023-06-23] MEDS: Simethicone 80 MG TAB.CHEW PO ×3 (09:41→21:56)
[2023-06-23] MEDS: diazePAM 2 MG TABLET PO ×2 (09:41→13:22)
[2023-06-23] MEDS: Levothyroxine Sodium 25 MCG TABLET 12.5 MCG PO (09:42)
[2023-06-23] MEDS: OXcarbazepine 300 MG TABLET 600 MG PO ×2 (09:42→13:22)
[2023-06-23] MEDS: Omeprazole 20 MG CAPSULE.DR PO (09:42)
[2023-06-23] MEDS: Furosemide 40 MG TABLET PO (09:42)
[2023-06-23] MEDS: OLANZapine 10 MG TABLET PO (09:42)
[2023-06-23] MEDS: Divalproex Sodium 500 MG TABLET.DR PO ×3 (09:42→21:56)
[2023-06-23] MEDS: polyethylene glycoL 3350 17 GM POWD.PACK PO ×2 (09:43→21:55)
[2023-06-23] MEDS: QUEtiapine Fumarate 300 MG TABLET PO ×3 (09:43→21:56)
[2023-06-23] MEDS: Propranolol HCL LA 60 MG CAP.SA.24H 120 MG PO (09:43)
--- NOTE | 2023-06-23 09:43 | P.PNPSI_ITS ---
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 no signs of infection (no leukocytosis), seen by hospitalist. KUB not showing obstruction but does show moderate constipation. May want to recheck TSH and treat if elevated. Pt remains in behavioral concerns. 05/11: Modified bowel regimen. DC Lactulose. Miralax BID rather than QID. 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 Fishing Captain discussed medications again with Dr. 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 While droperidol has been using the past for similar situations, patient has Haldol listed as an allergy which has very similar chemical structured true droperidol. 05/16 Continue current regime and plan of care. 05/18: Continue current regimen and plans. Continue to 1 observation 05/19 continue current regimen and plans. Increased Ambien to 10 mg q.h.s. 05/21 patient remains in relatively good behavioral/impulse control and has advancing privileges Continued discussions with [facility] about transfer to [facility] facility 05/22 patient welcomed the news that there is a bed at [facility]; remains in good behavioral control. Privileges advance to axis to the kitchen though not groups yet 05/23/23: Pt is advancing privileges. Daniel Aquino prn x 1. Continue current regime and plan of care. 05/24/23: Pt is attending some groups today. Daniel Aquino prn x 1. Continue current regime and plan of care. States she is excited to transfer to another facility next week. 05/25/23: Continue regime and plan. Pt attending group today and reports depression/anxiety regarding transfer. 05/26/23: Support pt in preparation to transfer. Diagnostics ordered for 05/27/23. 05/27 continue tx. 05/28 Diagnostics pre transfer completed, reviewed. Levothyroxine 25 mcg daily Lipitor 20 mg hs 05/29/23 Support pt in transition. 05/30/23 Reports feeling dizzy, thirsty, with decrease in appetite and diaphoretic. Diagnostics Decrease Levothyroxine to 12.5 mcg daily Decrease Atorvastatin to 10 mg daily 05/31/23 TSH is now WNL Continue current regime and plan. 05/1223 the patient complains of nausea, poor appetite for the last 2 days and headaches. She had fused PRNs. I am ordering CBC with differential and comprehensive metabolic panel. I am starting Xanax up to 0.25 bid schedule, first dose now. 06/02 Keep same treatment. 06/03 likely nausea, poor appetite and headaches over the past 2 days were due to inadvertent discontinuation of clonazepam 1.5 mg t.i.d.; in order to simplify medication regimen, will switch to diazepam 2 mg t.i.d. and discontinue the scheduled Xanax. Also will make levothyroxine ordered for later in the day; while this is typically given early in the morning, before medication and food, it is agitating for patient to be woken up 06/04 frustrated today wanting to transfer; remains able to use coping skills (last night removed herself from situation in [place] she could tell would be triggering). Discussed with admin pending court case for assault charges filed against her 06/06 patient attended hearing during which time she became dysregulated and ended up being physically/chemically restrained. Of note, it is account underwriter's opini on that the court interacted with patient in such a way without taking into consideration her mental health issues, limitations and ability to process information and there was considerable concern leading up to the event that patient would be able to tolerate it at all. In hindsight, would have offered patient PRNs prior to court proceedings (she did get them during but not soon enough); also patient did not realize that she was allowed to wave her right to continue hearing the charges and leave the forum which she said she would have done had she known this was allowed 06/07 continue treatment plan; has very specific privileges; discussed with nursing 06/10 doing well; using coping skills and staying safe. Repeat court tomorrow. Patient considering waving her rights to attend 06/13 patient remains in good behavioral and impulse control; utilizing PRNs as needed; has asked for increased diazepam dose for PRNs as she may be developing some tolerance. Will consider 06/14 patient more irritable today, feeling depressed that transfer to long-term facilities taking so long; reaching out to staff to help her cope through it and taking PRNs. Having trouble sleeping as well. Will review medications to adjust 06/16/23: No changes to treatment plan and note that can receive IM Valium, G eodon or Versed with patient agreement and circumstances appropriate 06/17 continue treatment plan 06/18 Patient has been in overall good behavioral and impulse control. This morning however there was a multi peer verbal argument that escalated; patient was specifically provoked by a peer which triggered her and patient (at another peer) started to go after this peer but was able to be held back by staff. Patient remained emotional angry and did punch a wall but otherwise remained under self-control. Discussed further with patient who reports this was just situational incident. Team agreed the patient can continue to have privileges. -Patient asked for hand x-ray; patient reports right hand has been swollen more than the left for a while however considered maybe a little more swollen after hitting the wall. Physical exam revealed swollen right and with no exquisite tenderness on palpation (of phalanges/metacarpal/carpal). 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
[2023-06-23 10:00] VITALS: BP 116/60; PULSE 82; RESP 16; TEMP 36.7; O2SAT 95
[2023-06-23 21:50] VITALS: BP 129/74; PULSE 86; RESP 18; TEMP 36.5
[2023-06-23] MEDS: clomiPRAMINE HCl 25 MG CAPSULE 100 MG PO (21:55)
[2023-06-23] MEDS: Prazosin HCL 1 MG CAPSULE 2 MG PO (21:55)
[2023-06-23] MEDS: OLANZapine 10 MG TABLET 20 MG PO (21:56)
[2023-06-23] MEDS: Atorvastatin Calcium 10 MG TABLET PO (21:56)
[2023-06-23] MEDS: diazePAM 2 MG TABLET 4 MG PO (22:06)
[2023-06-23] MEDS: traZODone HCL 100 MG TABLET PO (22:06)
[2023-06-24 08:45] VITALS: BP 114/76; PULSE 97; RESP 16; TEMP 36.2; O2SAT 94
[2023-06-24] MEDS: OXcarbazepine 300 MG TABLET 600 MG PO ×2 (08:52→13:52)
[2023-06-24] MEDS: polyethylene glycoL 3350 17 GM POWD.PACK PO ×2 (08:52→19:43)
[2023-06-24] MEDS: QUEtiapine Fumarate 300 MG TABLET PO ×3 (08:52→19:44)
[2023-06-24] MEDS: diazePAM 2 MG TABLET PO ×2 (08:53→13:52)
[2023-06-24] MEDS: Omeprazole 20 MG CAPSULE.DR PO (08:53)
[2023-06-24] MEDS: Simethicone 80 MG TAB.CHEW PO ×4 (08:53→19:45)
[2023-06-24] MEDS: Divalproex Sodium 500 MG TABLET.DR PO ×3 (08:53→19:46)
[2023-06-24] MEDS: Furosemide 40 MG TABLET PO ×2 (08:53→18:02)
[2023-06-24] MEDS: Levothyroxine Sodium 25 MCG TABLET 12.5 MCG PO (08:53)
[2023-06-24] MEDS: Propranolol HCL LA 60 MG CAP.SA.24H 120 MG PO (08:53)
[2023-06-24] MEDS: OLANZapine 10 MG TABLET PO (08:53)
--- NOTE | 2023-06-24 10:26 | HO.PSYCHPN ---
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 constipated and receiving treatment However patient complains of worsening abdominal pain; discussed with staff and on-call provider to be aware Currently labs and vitals all WNL 05/10 pt reports constipation some abdominal cramping- simethicone added- pending effect, afebrile, no signs of infection (no leukocytosis), seen by hospitalist. KUB not showing obstruction but does show moderate constipation. May want to recheck TSH and treat if elevated. Pt remains in behavioral concerns. 05/11: Modified bowel regimen. DC Lactulose. Miralax BID rather than QID. 05/13: Remained in good behavioral control throughout the weekend and today, utilizing PRNs frequently -invoking HCP (see above) 05/14 patient dysregulated, through lunch at group social worker; than tried to cut her arms with a spoon, needed mechanical/chemical restraint; calm down but again got dysregulated, tried to cut her arm with another plastic piece and required mechanical/chemical restraint; later that evening patient was triggered by a provocative peer (who was eventually transferred off the unit); with much difficulty she was able to be redirected 05/15 thus far patient remaining in behavioral control, asking for PRNs. [employer] discussed medications again with Dr. 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 While droperidol has been using the past for similar situations, patient has Haldol listed as an allergy which has very similar chemical structured true droperidol. 05/16 Continue current regime and plan of care. 05/18: Continue current regimen and plans. Continue to 1 observation 05/19 continue current regimen and plans. Increased Ambien to 10 mg q.h.s. 05/21 patient remains in relatively good behavioral/impulse control and has advancing privileges Continued discussions with [facility] about transfer to [facility] facility 05/22 patient welcomed the news that there is a bed at [facility]; remains in good behavioral control. Privileges advance to axis to the kitchen though not groups yet 05/23/23: Pt is advancing privileges. Daniel Aquino prn x 1. Continue current regime and plan of care. 05/24/23: Pt is attending some groups today. Daniel Aquino prn x 1. Continue current regime and plan of care. States she is excited to transfer to another facility next week. 05/25/23: Continue regime and plan. Pt attending group today and reports depression/anxiety regarding transfer. 05/26/23: Support pt in preparation to transfer. Diagnostics ordered for 05/27/23. 05/27 continue tx. 05/28 Diagnostics pre transfer completed, reviewed. Levothyroxine 25 mcg daily Lipitor 20 mg hs 05/29/23 Support pt in transition. 05/30/23 Reports feeling dizzy, thirsty, with decrease in appetite and diaphoretic. Diagnostics Decrease Levothyroxine to 12.5 mcg daily Decrease Atorvastatin to 10 mg daily 05/31/23 TSH is now WNL Continue current regime and plan. 05/1223 the patient complains of nausea, poor appetite for the last 2 days and headaches. She had fused PRNs. I am ordering CBC with differential and comprehensive metabolic panel. I am starting Xanax up to 0.25 bid schedule, first dose now. 06/02 Keep same treatment. 06/03 likely nausea, poor appetite and headaches over the past 2 days were due to inadvertent discontinuation of clonazepam 1.5 mg t.i.d.; in order to simplify medication regimen, will switch to diazepam 2 mg t.i.d. and discontinue the scheduled Xanax. Also will make levothyroxine ordered for later in the day; while this is typically given early in the morning, before medication and food, it is agitating for patient to be woken up 06/04 frustrated today wanting to transfer; remains able to use coping skills (last night removed herself from situation in [place] she could tell would be triggering). Discussed with admin pending court case for assault charges filed against her 06/06 patient attended hearing during which time she became dysregulated and ended up being physically/chemically restrained. Of note, it is typewriter assembly and parts inspector's opinion that the court interacted with patient in such a way without taking into consideration her mental health issues, limitations and ability to process information and there was considerable concern leading up to the event that patient would be able to tolerate it at all. In hindsight, would have offered patient PRNs prior to court proceedings (she did get them during but not soon enough); also patient did not realize that she was allowed to wave her right to continue hearing the charges and leave the forum which she said she would have done had she known this was allowed 06/07 continue treatment plan; has very specific privileges; discussed with nursing 06/10 doing well; using coping skills and staying safe. Repeat court tomorrow. Patient considering waving her rights to attend 06/13 patient remains in good behavioral and impulse control; utilizing PRNs as needed; has asked for increased diazepam dose for PRNs as she may be developing some tolerance. Will consider 06/14 patient more irritable today, feeling depressed that transfer to long-term facilities taking so long; reaching out to staff to help her cope through it and taking PRNs. Having trouble sleeping as well. Will review medications to adjust 06/16/23: No changes to treatment plan and note that can receive IM Valium, Geodon or Versed with patient agreement and circumstances appropriate 06/17 continue treatment plan 06/18 Patient has been in overall good behavioral and impulse control. This morning however there was a multi peer verbal argument that escalated; patient was specifically provoked by a peer which triggered her and patient (at another peer) started to go after this peer but was able to be held back by staff. Patient remained emotional angry and did punch a wall but otherwise remained under self-control. Discussed further with patient who reports this was just situational incident. Team agreed the patient can continue to have privileges. -Patient asked for hand x-ray; patient reports right hand has been swollen more than the left for a while however considered maybe a little more swollen after hitting the wall. Physical exam revealed swollen right and with no exquisite tenderness on palpation (of phalanges/metacarpal/carpal). 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
[2023-06-24] MEDS: Ziprasidone 20 MG CAPSULE PO (12:21)
[2023-06-24] MEDS: diazePAM 5 MG TABLET 10 MG PO (12:21)
[2023-06-24 18:41] VITALS: BP 116/74; PULSE 89
[2023-06-24] MEDS: Atorvastatin Calcium 10 MG TABLET PO (19:44)
[2023-06-24] MEDS: OLANZapine 10 MG TABLET 20 MG PO (19:44)
[2023-06-24] MEDS: Prazosin HCL 1 MG CAPSULE 2 MG PO (19:44)
[2023-06-24] MEDS: clomiPRAMINE HCl 25 MG CAPSULE 100 MG PO (19:45)
[2023-06-24] MEDS: traZODone HCL 100 MG TABLET PO (19:45)
[2023-06-24] MEDS: diazePAM 2 MG TABLET 4 MG PO (19:45)
[2023-06-24] MEDS: Zolpidem Tartrate 5 MG TABLET PO (21:22)
[2023-06-24 21:24] VITALS: BP 127/60; PULSE 83; RESP 16; TEMP 35.9; O2SAT 98
[2023-06-24] MEDS: Acetaminophen 325 MG TABLET 650 MG PO (21:34)
[2023-06-24] MEDS: Lidocaine 4 % Patch ADH..PATCH 1 PATCH TRANSDERMA ×2 (21:34→21:38)
[2023-06-25 10:00] VITALS: BP 128/80; PULSE 82; RESP 16; TEMP 36.3; O2SAT 96
[2023-06-25] MEDS: QUEtiapine Fumarate 300 MG TABLET PO ×3 (10:01→23:15)
[2023-06-25] MEDS: Simethicone 80 MG TAB.CHEW PO ×4 (10:01→23:17)
[2023-06-25] MEDS: Furosemide 40 MG TABLET PO ×2 (10:01→16:57)
[2023-06-25] MEDS: Divalproex Sodium 500 MG TABLET.DR PO ×3 (10:01→23:17)
[2023-06-25] MEDS: Levothyroxine Sodium 25 MCG TABLET 12.5 MCG PO (10:01)
[2023-06-25] MEDS: Propranolol HCL LA 60 MG CAP.SA.24H 120 MG PO (10:01)
[2023-06-25] MEDS: OXcarbazepine 300 MG TABLET 600 MG PO ×2 (10:01→14:34)
[2023-06-25] MEDS: Omeprazole 20 MG CAPSULE.DR PO (10:02)
[2023-06-25] MEDS: polyethylene glycoL 3350 17 GM POWD.PACK PO ×2 (10:02→23:18)
[2023-06-25] MEDS: OLANZapine 10 MG TABLET PO (10:02)
[2023-06-25] MEDS: diazePAM 2 MG TABLET PO ×2 (10:02→14:34)
--- NOTE | 2023-06-25 11:02 | HO.PSYCHPN ---
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 constipation some abdominal cramping- simethicone added- pending effect, afebrile, no signs of infection (no leukocytosis), seen by hospitalist. KUB not showing obstruction but does show moderate constipation. May want to recheck TSH and treat if elevated. Pt remains in behavioral concerns. 05/11: Modified bowel regimen. DC Lactulose. Miralax BID rather than QID. 05/13: Remained in good behavioral control throughout the weekend and today, utilizing PRNs frequently -invoking HCP (see above) 05/14 patient dysregulated, through lunch at social services analyst; than tried to cut her arms with a spoon, needed mechanical/chemical restraint; calm down but again got dysregulated, tried to cut her arm with another plastic piece and required mechanical/chemical restraint; later that evening patient was triggered by a provocative peer (who was eventually transferred off the unit); with much difficulty she was able to be redirected 05/15 thus far patient remaining in behavioral control, asking for PRNs. Video Tape Duplicator discussed medications again with Dr. 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 While droperidol has been using the past for similar situations, patient has Haldol listed as an allergy which has very similar chemical structured true droperidol. 05/16 Continue current regime and plan of care. 05/18: Continue current regimen and plans. Continue to 1 observation 05/19 continue current regimen and plans. Increased Ambien to 10 mg q.h.s. 05/21 patient remains in relatively good behavioral/impulse control and has advancing privileges Continued discussions with [facility] about transfer to [facility] facility 05/22 patient welcomed the news that there is a bed at [facility]; remains in good behavioral control. Privileges advance to axis to the kitchen though not groups yet 05/23/23: Pt is advancing privileges. Daniel Aquino prn x 1. Continue current regime and plan of care. 05/24/23: Pt is attending some groups today. Daniel Aquino prn x 1. Continue current regime and plan of care. States she is excited to transfer to another facility next week. 05/25/23: Continue regime and plan. Pt attending group today and reports depression/anxiety regarding transfer. 05/26/23: Support pt in preparation to transfer. Diagnostics ordered for 05/27/23. 05/27 continue tx. 05/28 Diagnostics pre transfer completed, reviewed. Levothyroxine 25 mcg daily Lipitor 20 mg hs 05/29/23 Support pt in transition. 05/30/23 Reports feeling dizzy, thirsty, with decrease in appetite and diaphoretic. Diagnostics Decrease Levothyroxine to 12.5 mcg daily Decrease Atorvastatin to 10 mg daily 05/31/23 TSH is now WNL Continue current regime and plan. 05/1223 the patient complains of nausea, poor appetite for the last 2 days and headaches. She had fused PRNs. I am ordering CBC with differential and comprehensive metabolic panel. I am starting Xanax up to 0.25 bid schedule, first dose now. 06/02 Keep same treatment. 06/03 likely nausea, poor appetite and headaches over the past 2 days were due to inadvertent discontinuation of clonazepam 1.5 mg t.i.d.; in order to simplify medication regimen, will switch to diazepam 2 mg t.i.d. and discontinue the scheduled Xanax. Also will make levothyroxine ordered for later in the day; while this is typically given early in the morning, before medication and food, it is agitating for patient to be woken up 06/04 frustrated today wanting to transfer; remains able to use coping skills (last night removed herself from situation in [place] she could tell would be triggering). Discussed with admin pending court case for assault charges filed against her 06/06 patient attended hearing during which time she became dysregulated and ended up being physically/chemically restrained. Of note, it is mortgage loan underwriter's opinion that the court interacted with patient in such a way without taking into consideration her mental health issues, limitations and ability to process information and there was considerable concern leading up to the event that patient would be able to tolerate it at all. In hindsight, would have offered patient PRNs prior to court proceedings (she did get them during but not soon enough); also patient did not realize that she was allowed to wave her right to continue hearing the charges and leave the forum which she said she would have done had she known this was allowed 06/07 continue treatment plan; has very specific privileges; discussed with nursing 06/10 doing well; using coping skills and staying safe. Repeat court tomorrow. Patient considering waving her rights to attend 06/13 patient remains in good behavioral and impulse control; utilizing PRNs as needed; has asked for increased diazepam dose for PRNs as she may be developing some tolerance. Will consider 06/14 patient more irritable today, feeling depressed that transfer to long-term facilities taking so long; reaching out to staff to help her cope through it and taking PRNs. Having trouble sleeping as well. Will review medications to adjust 06/16/23: No changes to treatment plan and note that can receive IM Valium, Geodon or Versed with patient agreement and circumstances appropriate 06/17 continue treatment plan 06/18 Patient has been in overall good behavioral and impulse control. This morning however there was a multi peer verbal argument that escalated; patient was specifically provoked by a peer which triggered her and patient (at another peer) started to go after this peer but was able to be held back by staff. Patient remained emotional angry and did punch a wall but otherwise remained under self-control. Discussed further with patient who reports this was just situational incident. Team agreed the patient can continue to have privileges. -Patient asked for hand x-ray; patient reports right hand has been swollen more than the left for a while however considered maybe a little more swollen after hitting the wall. Physical exam revealed swollen right and with no exquisite tenderness on palpation (of phalanges/metacarpal/carpal). 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 Patient educated on: diagnosis, medication risk/benefits and therapeutic strategies Informed Consent: understands Reason for continued inpatient stay Substantial Risk for: harm to self, harm to others and inability to function Time Spent With Patient Time: Total time managing care of this patient today ____ minutes.
[2023-06-25] MEDS: diazePAM 5 MG TABLET 10 MG PO ×2 (11:18→23:42)
[2023-06-25] MEDS: Ziprasidone 20 MG CAPSULE PO (11:18)
[2023-06-25 23:15] VITALS: BP 124/78; PULSE 83; TEMP 36.2; O2SAT 96
[2023-06-25] MEDS: OLANZapine 10 MG TABLET 20 MG PO (23:16)
[2023-06-25] MEDS: Atorvastatin Calcium 10 MG TABLET PO (23:16)
[2023-06-25] MEDS: traZODone HCL 100 MG TABLET PO (23:16)
[2023-06-25] MEDS: clomiPRAMINE HCl 25 MG CAPSULE 125 MG PO (23:16)
[2023-06-25] MEDS: Prazosin HCL 1 MG CAPSULE 2 MG PO (23:17)
[2023-06-25] MEDS: diazePAM 2 MG TABLET 4 MG PO (23:17)
[2023-06-25] MEDS: ALPRAZolam 0.5 MG TABLET PO (23:42)
--- NOTE | 2023-06-26 09:54 | HO.PSYCHPN ---
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 Rating Specialist discussed medications again with Dr. 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 While droperidol has been using the past for similar situations, patient has Haldol listed as an allergy which has very similar chemical structured true droperidol. 05/16 Continue current regime and plan of care. 05/18: Continue current regimen and plans. Continue to 1 observation 05/19 continue current regimen and plans. Increased Ambien to 10 mg q.h.s. 05/21 patient remains in relatively good behavioral/impulse control and has advancing privileges Continued discussions with [facility] about transfer to [facility] facility 05/22 patient welcomed the news that there is a bed at [facility]; remains in good behavioral control. Privileges advance to axis to the kitchen though not groups yet 05/23/23: Pt is advancing privileges. Daniel Aquino prn x 1. Continue current regime and plan of care. 05/24/23: Pt is attending some groups today. Daniel Aquino prn x 1. Continue current regime and plan of care. States she is excited to transfer to another facility next week. 05/25/23: Continue regime and plan. Pt attending group today and reports depression/anxiety regarding transfer. 05/26/23: Support pt in preparation to transfer. Diagnostics ordered for 05/27/23. 8/7 continue tx. 05/28 Diagnostics pre transfer completed, reviewed. Levothyroxine 25 mcg daily Lipitor 20 mg hs 05/29/23 Support pt in transition. 05/30/23 Reports feeling dizzy, thirsty, with decrease in appetite and diaphoretic. Diagnostics Decrease Levothyroxine to 12.5 mcg daily Decrease Atorvastatin to 10 mg daily 05/31/23 TSH is now WNL Continue current regime and plan. 05/1223 the patient complains of nausea, poor appetite for the last 2 days and headaches. She had fused PRNs. I am ordering CBC with differential and comprehensive metabolic panel. I am starting Xanax up to 0.25 bid schedule, first dose now. 06/02 Keep same treatment. 06/03 likely nausea, poor appetite and headaches over the past 2 days were due to inadvertent discontinuation of clonazepam 1.5 mg t.i.d.; in order to simplify medication regimen, will switch to diazepam 2 mg t.i.d. and discontinue the scheduled Xanax. Also will make levothyroxine ordered for later in the day; while this is typically given early in the morning, before medication and food, it is agitating for patient to be woken up 06/04 frustrated today wanting to transfer; remains able to use coping skills (last night removed herself from situation in [place] she could tell would be triggering). Discussed with admin pending court case for assault charges filed against her 06/06 patient attended hearing during which time she became dysregulated and ended up being physically/chemically restrained. Of note, it is screenplay writer's opinion that the court interacted with patient in such a way without taking into consideration her mental health issues, limitations and ability to process information and there was considerable concern leading up to the event that patient would be able to tolerate it at all. In hindsight, would have offered patient PRNs prior to court proceedings (she did get them during but not soon enough); also patient did not realize that she was allowed to wave her right to continue hearing the charges and leave the forum which she said she would have done had she known this was allowed 06/07 continue treatment plan; has very specific privileges; discussed with nursing 06/10 doing well; using coping skills and staying safe. Repeat court tomorrow. Patient considering waving her rights to attend 06/13 patient remains in good behavioral and impulse control; utilizing PRNs as needed; has asked for increased diazepam dose for PRNs as she may be developing some tolerance. Will consider 06/14 patient more irritable today, feeling depressed that transfer to long-term facilities taking so long; reaching out to staff to help her cope through it and taking PRNs. Having trouble sleeping as well. Will review medications to adjust 06/16/23: No changes to treatment plan and note that can receive IM Valium, Geodon or Versed with patient agreement and circumstances appropriate 06/17 continue treatment plan 06/18 Patient has been in overall good behavioral and impulse control. This morning however there was a multi peer verbal argument that escalated; patient was specifically provoked by a peer which triggered her and patient (at another peer) started to go after this peer but was able to be held back by staff. Patient remained emotional angry and did punch a wall but otherwise remained under self-control. Discussed further with patient who reports this was just situational incident. Team agreed the patient can continue to have privileges. -Patient asked for hand x-ray; patient reports right hand has been swollen more than the left for a while however considered maybe a little more swollen after hitting the wall. Physical exam revealed swollen right and with no exquisite tenderness on palpation (of phalanges/metacarpal/carpal). 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 06/26 patient accepted to [facility]; she is excited and anxious for transfer. She has remained in good behavioral control for weeks now. Patient saying her goodbyes and preparing for discharge. Patient educated on: diagnosis, medication risk/benefits and therapeutic strategies Informed Consent: understands Reason for continued inpatient stay Substantial Risk for: harm to self, harm to others and inability to function Time Spent With Patient Time: Total time managing care of this patient today ____ minutes.
[2023-06-26] MEDS: polyethylene glycoL 3350 17 GM POWD.PACK PO ×2 (09:55→20:25)
[2023-06-26] MEDS: QUEtiapine Fumarate 300 MG TABLET PO ×3 (09:56→20:24)
[2023-06-26] MEDS: Propranolol HCL LA 60 MG CAP.SA.24H 120 MG PO (09:56)
[2023-06-26] MEDS: OXcarbazepine 300 MG TABLET 600 MG PO ×2 (09:56→16:25)
[2023-06-26] MEDS: Omeprazole 20 MG CAPSULE.DR PO (09:56)
[2023-06-26] MEDS: Simethicone 80 MG TAB.CHEW PO ×3 (09:56→20:24)
[2023-06-26] MEDS: Divalproex Sodium 500 MG TABLET.DR PO ×3 (09:56→20:24)
[2023-06-26] MEDS: OLANZapine 10 MG TABLET PO (09:56)
[2023-06-26] MEDS: Levothyroxine Sodium 25 MCG TABLET 12.5 MCG PO (09:56)
[2023-06-26] MEDS: diazePAM 2 MG TABLET PO ×2 (09:56→16:25)
[2023-06-26] MEDS: Furosemide 40 MG TABLET PO ×2 (09:56→16:26)
[2023-06-26] MEDS: Lidocaine 4 % Patch ADH..PATCH 1 PATCH TRANSDERMA (09:58)
[2023-06-26 10:00] VITALS: BP 111/60; PULSE 72; RESP 16; TEMP 36.2; O2SAT 96
[2023-06-26 16:32] VITALS: BP 122/68; PULSE 81; RESP 16; TEMP 36.6; O2SAT 97
--- NOTE | 2023-06-26 17:33 | PM.PSYDC ---
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 Tablet 40 mg PO DAILY@1700 Qty: 0 0RF Protocol: Hold for SBP< HOLD for SBP < : 90 acetaminophen 325 mg Tablet 650 mg PO Q6H PRN (Reason: Headache/Pain Mild Scale (1-3)) Qty: 0 0RF quetiapine 300 mg Tablet 300 mg PO TID Qty: 0 0RF polyethylene glycol 3350 17 gram Powder In Packet 17 g PO QID PRN (Reason: Constipation) Qty: 0 0RF polyethylene glycol 3350 17 gram Powder In Packet 17 g PO BID Qty: 0 0RF Hydrocil Instant Packet 3.7 g PO DAILY PRN (Reason: constipation) Qty: 0 0RF olanzapine 10 mg Tablet 20 mg PO BEDTIME Qty: 0 0RF olanzapine 10 mg Tablet 10 mg PO DAILY Qty: 0 0RF calcium carbonate [Antacid Ext Str (calcium carb)] 300 mg (750 mg) Tablet,Chewable 750 mg PO Q4H PRN (Reason: gerd) Qty: 0 0RF oxcarbazepine 300 mg Tablet 600 mg PO BID@0900,1400 Qty: 0 0RF divalproex 500 mg Tablet,Delayed Release (Dr/Ec) 500 mg PO TID Qty: 0 0RF levothyroxine 25 mcg Tablet 12.5 mcg PO DAILY@0900 Qty: 0 0RF alprazolam 0.5 mg Tablet 0.5 mg PO QID PRN (Reason: Anxiety) Qty: 0 0RF ziprasidone HCl 20 mg Capsule 20 mg PO BID PRN (Reason: agitation) Qty: 0 0RF trazodone 100 mg Tablet 100 mg PO BEDTIME Qty: 0 0RF diazepam 2 mg Tablet 4 mg PO BEDTIME Qty: 0 0RF diazepam 2 mg Tablet 2 mg PO BID@0900,1400 Qty: 0 0RF diazepam 2 mg Tablet 10 mg PO BID PRN (Reason: anxiety, agitation) Qty: 0 0RF omeprazole 20 mg Capsule,Delayed Release(Dr/Ec) 20 mg PO DAILY Qty: 0 0RF zolpidem 5 mg Tablet 5 mg PO BEDTIME MRX1 PRN (Reason: Insomnia) Qty: 0 0RF clomipramine 25 mg Capsule 125 mg PO BEDTIME Qty: 0 0RF naproxen 500 mg Tablet 500 mg PO Q12H PRN (Reason: Pain, Mild (Pain Scale 1-3)) Qty: 0 0RF Chloraseptic Throat Christopher 1.4 % Aerosol,Christopher 1 spray mucous membrane Q2H PRN (Reason: Sore Throat) Qty: 0 0RF simethicone [Gas Relief (simethicone)] 80 mg Tablet,Chewable 80 mg PO QIDWMHS Qty: 0 0RF ziprasidone mesylate [Geodon] 20 mg/mL (final conc.) Recon Soln 20 mg IM BID PRN (Reason: only at PATIENTS request ) Qty: 0 0RF diazepam 5 mg/mL Syringe 10 mg IM BID PRN (Reason: agitation) Qty: 0 0RF senna leaf extract [senna] 176 mg/5 mL Syrup 15 ml PO BEDTIME Qty: 0 0RF Continued loratadine 10 mg tablet 1 tab PO DAILY PRN (Reason: congestion) Discontinued clonidine HCl 0.1 mg Tablet 0.1 mg PO TID Qty: 0 0RF Protocol: Hold for SBP< HOLD for SBP < : 90 fluoxetine 20 mg Capsule 20 mg PO DAILY 30 Days Qty: 30 0RF alprazolam 0.5 mg Tablet 0.5 mg PO TID PRN (Reason: Anxiety) Qty: 0 0RF multivitamin [Daily-Toshia] Tablet 1 tab PO BEDTIME trazodone 50 mg tablet 1 tab PO BEDTIME PRN (Reason: insomnia) sennosides-docusate sodium [Senna Plus] 8.6-50 mg tablet 1 tab PO BID olanzapine 10 mg tablet 2 tab PO BEDTIME ziprasidone HCl 20 mg capsule 20 mg PO BID PRN (Reason: Agitation) famotidine 20 mg tablet 1 tab PO BEDTIME trazodone 100 mg tablet 1 tab PO BEDTIME diphenhydramine HCl [Banophen] 25 mg capsule 50 mg PO BEDTIME divalproex 500 mg tablet extended release 24 hr 2,500 mg PO BEDTIME naproxen 500 mg tablet 1 tab PO Q12H PRN (Reason: mild pain) melatonin 5 mg tablet 1 tab PO BEDTIME PRN (Reason: insomnia) Discharge Orders: Discharge Order (Routine); Ordered 06/27/23 Ordered By: Ruel Bustos Diet: Regular diet Activity on Discharge: As tolerated Stand Alone Forms: Patient Portal Discharge page, Community Support Activity Restrictions/Additional Instructions: ALLERGIES/DO NOT GIVE Thorazine Colome Haldol Ativan Care Plan Goals: Maintain mood and safe behaviors Take medications as prescribed Practice coping skills Health Concerns: See dc summary Plan of Treatment: Transfer to [facility] Assessment: Patient is at baseline. No SI or HI. Taking medications as prescribed. Wants treatment. Discharge Date/Time: 06/27/23 10:57
[2023-06-26] MEDS: clomiPRAMINE HCl 25 MG CAPSULE 125 MG PO (20:23)
[2023-06-26] MEDS: traZODone HCL 100 MG TABLET PO (20:23)
[2023-06-26] MEDS: Prazosin HCL 1 MG CAPSULE 2 MG PO (20:23)
[2023-06-26] MEDS: diazePAM 2 MG TABLET 4 MG PO (20:24)
[2023-06-26] MEDS: Atorvastatin Calcium 10 MG TABLET PO (20:24)
[2023-06-26] MEDS: OLANZapine 10 MG TABLET 20 MG PO (20:24)
[2023-06-27] MEDS: Lidocaine 4 % Patch ADH..PATCH 1 PATCH TRANSDERMA (09:22)
[2023-06-27] MEDS: Propranolol HCL LA 60 MG CAP.SA.24H 120 MG PO (09:23)
[2023-06-27] MEDS: polyethylene glycoL 3350 17 GM POWD.PACK PO (09:23)
[2023-06-27] MEDS: Levothyroxine Sodium 25 MCG TABLET 12.5 MCG PO (09:23)
[2023-06-27] MEDS: Omeprazole 20 MG CAPSULE.DR PO (09:23)
[2023-06-27] MEDS: Simethicone 80 MG TAB.CHEW PO (09:23)
[2023-06-27] MEDS: diazePAM 2 MG TABLET PO (09:23)
[2023-06-27] MEDS: OXcarbazepine 300 MG TABLET 600 MG PO (09:23)
[2023-06-27] MEDS: Divalproex Sodium 500 MG TABLET.DR PO (09:24)
[2023-06-27] MEDS: QUEtiapine Fumarate 300 MG TABLET PO (09:24)
[2023-06-27] MEDS: OLANZapine 10 MG TABLET PO (09:24)
[2023-06-27] MEDS: Furosemide 40 MG TABLET PO (09:24)
[2023-06-27] MEDS: diazePAM 5 MG TABLET 10 MG PO (09:33)
[2023-06-27] MEDS: Ziprasidone 20 MG CAPSULE PO (09:33)
[2023-06-27] MEDS: NaPROXEN 500 MG TABLET PO (09:33)
[2023-06-27 09:36] VITALS: BP 135/88; PULSE 86; RESP 18; TEMP 36.2; O2SAT 96
== END 2023-06-27 10:57 | DRG 757 ==
LOC: HO.ED 12-28 07:27 → HO.PM5 12-28 13:31
PROVIDERS: Clinical Nurse Specialist Psychiatric/Mental Health, Adult; Internal Medicine; Physician Assistant; Psychiatry & Neurology Psychiatry; Social Worker; Admitting Provider Psychiatry & Neurology Psychiatry; Emergency Provider Internal Medicine; Visit Provider Psychiatry & Neurology Psychiatry
DX: F84.0 Autistic disorder (principal); R45.851 Suicidal ideations; F63.81 Intermittent explosive disorder; E03.9 Hypothyroidism, unspecified; R76.0 Raised antibody titer; R60.0 Localized edema; K59.00 Constipation, unspecified; F94.1 Reactive attachment disorder of childhood; F43.10 Post-traumatic stress disorder, unspecified; J98.11 Atelectasis; L03.113 Cellulitis of right upper limb; M62.830 Muscle spasm of back; H10.11 Acute atopic conjunctivitis, right eye; M54.59 Other low back pain; G47.00 Insomnia, unspecified; K21.9 Gastro-esophageal reflux disease without esophagitis; Z78.1 Physical restraint status; N91.2 Amenorrhea, unspecified; Z75.1 Person awaiting admission to adequate facility elsewhere; Z20.822 Contact with and (suspected) exposure to COVID-19; Z79.890 Hormone replacement therapy; Z79.899 Other long term (current) drug therapy
CPT/HCPCS: 0241U; 0353U; 36415; 71045; 71250; 72020; 72070; 72100; 73090; 73110; 73120; 73620; 74018; 74021; 80048; 80053; 80061; 80076; 80143; 80164; 80179; 80307; 81001; 81003; 81025; 82077; 82140; 82607; 82746; 83036; 83690; 83735; 83880; 84439; 84443; 84484; 85025; 86231; 86258; 86364; 86376; 86704; 86706; 86709; 86803; 87086; 87147; 87340; 87389; 87635; 87651; 90715; 92950; 93005; 99285; J1200; J2060; J2250; J3360; J3486; T1004

== ENCOUNTER 2022-12-28 13:14 | Outpatient (BNV) | payer OTHER, SELFPAY | END 2023-05-27 09:00 | PROVIDERS: Admitting Provider Psychiatry & Neurology Psychiatry; Emergency Provider Internal Medicine; Visit Provider Internal Medicine Cardiovascular Disease | DX: I45.81 Long QT syndrome (principal) | CPT/HCPCS: 93010 ==

== ENCOUNTER → 2022-12-28 13:14 | Outpatient (BNV) | payer OTHER, SELFPAY | PROVIDERS: Admitting Provider Psychiatry & Neurology Psychiatry; Emergency Provider Internal Medicine; Visit Provider Internal Medicine | DX: M54.9 Dorsalgia, unspecified (principal); M62.838 Other muscle spasm | CPT/HCPCS: 99223; 99499 ==

== ENCOUNTER → 2022-12-28 13:14 | Outpatient (BNV) | payer OTHER, SELFPAY | PROVIDERS: Admitting Provider Psychiatry & Neurology Psychiatry; Emergency Provider Internal Medicine; Visit Provider Psychiatry & Neurology Psychiatry | DX: F84.0 Autistic disorder (principal); F63.81 Intermittent explosive disorder; F43.12 Post-traumatic stress disorder, chronic; Z86.59 Personal history of other mental and behavioral disorders; R60.9 Edema, unspecified; J98.4 Other disorders of lung | CPT/HCPCS: 90792; 99231; 99232; 99233; 99239; 99499 ==

== ENCOUNTER 2025-03-13 22:15 | Emergency (ER) | payer OTHER, SELFPAY ==
--- NOTE | 2025-03-13 23:20 | ED_ITS ---
HPI - General Adult General Chief complaint: Psychiatric Symptoms Stated complaint: SI Time Seen by Provider: 03/13/25 22:37 Source: patient Limitations: no limitations History of Present Illness ED Provider: Zenaida Reeder PA-C HPI narrative: 25-year-old female with a history of developmental disorder, reactive attachment disorder, autism spectrum disorder, PTSD, intermittent explosive disorder, prior SI and HI, CHARLES positive, restrictive lung disease who presents with SI. Patient states that she was recently ?released? into the community, and does not feel safe living on her own. She does not want to be in a [facility]. Related Data Home Medications ?Medication ?Instructions ?Recorded ?Confirmed Patient Own Medication 1 ea ophthalmic (eye) DAILY PRN 03/14/25 03/14/25 Allergy Symptoms albuterol sulfate 90 mcg/actuation 2 puff inhalation Q4H PRN Wheezing 03/14/25 03/14/25 aerosol inhaler (Ventolin HFA) bisacodyl 10 mg PO Q48H PRN Constipation 03/14/25 03/14/25 calcium carbonate (Antacid Ext Str 1,000 mg PO Q8H PRN gerd 03/14/25 03/14/25 (calcium carb)) cetirizine 10 mg PO DAILY PRN rhinitis 03/14/25 03/14/25 clomipramine 25 mg capsule 175 mg PO BEDTIME 03/14/25 03/14/25 diazepam 2 mg tablet 2 mg PO BID 03/14/25 03/14/25 diazepam 2 mg tablet 5 mg PO 1600 03/14/25 03/14/25 diazepam 2 mg tablet 5 mg PO DAILY PRN anxiety, 03/14/25 03/14/25 agitation diphenhydramine HCl 100 mg PO Q6H PRN Anxiety 03/14/25 03/14/25 famotidine 20 mg tablet 20 mg PO BID 03/14/25 03/14/25 levothyroxine 25 mcg tablet 25 mcg PO DAILY@0900 03/14/25 03/14/25 magnesium hydroxide 400 mg/5 mL 30 ml PO BEDTIME PRN Constipation 03/14/25 03/14/25 oral suspension (Milk of Magnesia) melatonin 5 mg tablet 5 mg PO BEDTIME PRN Insomnia 03/14/25 03/14/25 olanzapine 10 mg tablet 10 mg PO Q6H PRN Agitation 03/14/25 03/14/25 prazosin 1 mg capsule 4 mg PO BEDTIME 03/14/25 03/14/25 risperidone 4 mg tablet 4 mg PO BID 03/14/25 03/14/25 sennosides 8.6 mg-docusate sodium 1 tab PO BEDTIME 03/14/25 03/14/25 50 mg tablet (Stimulant Laxative Plus) Previous Rx's ?Medication ?Instructions ?Recorded acetaminophen 325 mg tablet 650 mg (2 x 325 mg) PO Q6H PRN 06/26/23 Headache/Pain Mild Scale (1-3) #0 tabs divalproex 500 mg tablet,delayed 500 mg PO TID #0 tabs 06/26/23 release epinephrine 1 mg/mL (1 mL) 0.3 mg (0.3 mL) IM ONCE PRN 06/26/23 injection solution (Adrenalin) anaphylaxis #0 mL polyethylene glycol 3350 17 gram 17 g PO BID #0 ea 06/26/23 oral powder packet Allergies Allergy/AdvReac Type Severity Reaction Status Date / Time chlorpromazine Allergy Severe Anaphylaxis Verified 03/13/25 23:40 [From Thorazine] lithium Allergy Hives Verified 03/13/25 23:40 lorazepam [From Ativan] AdvReac Intermediate Agitated, Verified 03/13/25 23:40 dysregulation haloperidol [From Haldol] AdvReac Agitated Verified 03/13/25 23:40 nut - unspecified AdvReac Anxiety Verified 03/13/25 23:40 Review of Systems 2 Review of Systems: Yes all other systems are reviewed and are negative PMFSH Past Medical History Attestation statement: The following information was validated with the patient. Medical History (Updated 03/16/25 @ 00:00 by Background Ernst) Chronic restrictive lung disease CHARLES positive Has daytime drowsiness Dyspnea Amenorrhea Peripheral edema PTSD (post-traumatic stress disorder) Autism Developmental disorder Suicidal behavior Homicidal behavior Family History Family History Father No known health problems Mother No problems noted. 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 Household Members Other:: grandmother Housing: Apartment Do you presently have visiting nurse or other home services: No Alcohol intake: never Patient Tobacco Use Status: Never used Tobacco e-Cigarette/Vaping Use: Never Used service: No Sexual orientation: Straight/Heterosexual Cognitive needs: No Hearing needs: No Vision needs: No Physical Exam ED Vital Signs: Vital Signs - 24 hr 03/15/25 13:04 Temperature 98.6 F Pulse Rate 81 Respiratory Rate 16 Blood Pressure 121/79 Pulse Oximetry 97 Oxygen Delivery Method Room Air BMI result Body Mass Index 31.0 Const Other: Alert Orientation/consciousness: patient oriented x3 Resp Effort & Inspection: normal respiratory effort Cardio Other: Normal peripheral perfusion Skin Other: Warm dry no rash Neuro General: patient oriented x3, gait normal, no focal motor deficits and CN's II- XI intact bilaterally Psych Other: Flat affect, cooperative for me in the emergency department Course Reevaluation(s) Reevaluation #1: Time: 01:03 Date: 03/14/25 Provider: VICTOR MANUEL Bee Patient in physician observation for psychiatric evaluation.? No acute events reported overnight. No current complaints. VS stable.? Patient is in bed search status/pending CARE team evaluation. Will continue to monitor. Reevaluation #2: Time: 08:29 Date: 03/14/25 Provider: Rosendo De La Rosa MD Patient in physician observation for psychiatric evaluation.? No acute events reported overnight. No current complaints. VS stable.? Patient is in bed search status/pending CARE team evaluation. Will continue to monitor. Reevaluation #3: 03/15/2025:DR. Bianchi's progress note: Discontinue physician observation, care team input is appreciated, patient will be stable to be [facility], no SI, no HI. No acute events reported overnight. No current complaints. Time: 09:07 Medications Administered Discontinued Medications Generic Name Dose Route Start Last Admin Trade Name Freq PRN Reason Stop Dose Admin Calcium Carbonate 750 mg 03/14/25 10:42 03/14/25 11:16 Calcium Carbonate 750 Mg Tab.Chew PO 03/14/25 10:43 750 mg ONCE ONE Administration Clomipramine HCl 175 mg 03/14/25 01:30 03/14/25 20:48 Clomipramine Hcl 25 Mg Capsule PO 175 mg BEDTIME OSCAR Administration Diazepam 5 mg 03/14/25 08:43 03/15/25 11:33 Diazepam 5 Mg Tablet PO 5 mg DAILY PRN Administration anxiety, agitation Diazepam 5 mg 03/14/25 16:00 03/14/25 16:28 Diazepam 5 Mg Tablet PO 5 mg 1600 OSCAR Administration Diazepam 2 mg 03/14/25 09:00 03/15/25 08:05 Diazepam 2 Mg Tablet PO 2 mg BID OSCAR Administration Diphenhydramine HCl 50 mg 03/14/25 13:53 03/14/25 14:14 Diphenhydramine Hcl 25 Mg Capsule PO 03/14/25 13:54 50 mg ONCE ONE Administration Divalproex Sodium 500 mg 03/14/25 09:00 03/15/25 08:05 Divalproex Sodium 500 Mg Tablet. PO 500 mg TID OSCAR Administration Levothyroxine Sodium 25 mcg 03/14/25 06:30 03/15/25 08:05 Levothyroxine Sodium 25 Mcg Tablet PO 25 mcg DAILY@0630 OSCAR Administration Melatonin 6 mg 03/14/25 19:41 03/14/25 20:48 Melatonin 3 Mg Tablet PO 03/14/25 19:42 6 mg ONCE ONE Administration Polyethylene Glycol 17 gm 03/14/25 01:30 03/15/25 08:06 Polyethylene Glycol 3350 17 Gm Powd.Pack PO Not Given BID OSCAR Prazosin HCl 4 mg 03/14/25 01:30 03/14/25 20:48 Prazosin Hcl 1 Mg Capsule PO 4 mg BEDTIME OSCAR Administration Protocol Risperidone 4 mg 03/14/25 09:00 03/15/25 08:05 Risperidone 2 Mg Tablet PO 4 mg BID OSCAR Administration Senna/Docusate Sodium 1 tab 03/14/25 21:00 03/14/25 20:49 Sennosides/Docusate Sodium Tablet PO 1 tab BEDTIME OSCAR Administration Ziprasidone 40 mg 03/14/25 14:15 03/14/25 14:15 Ziprasidone 40 Mg Capsule PO 03/14/25 14:16 Not Given ONCE ONE Medical Decision Making Medical Decision Making MDM Narrative: 25-year-old female with a history of developmental disorder, reactive attachment disorder, autism spectrum disorder, PTSD, intermittent explosive disorder, prior SI and HI, CHARLES positive, restrictive lung disease who presents with SI. Patient states that she was recently ?released? into the community, and does not feel safe living on her own. She does not want to be in a [facility]. Problem: Psychiatric illness, developmental disorder History: Per patient I have considered the following differential diagnoses: SI, HI, decompensated psychiatric illness, drug/alcohol intoxication Plan: Screening labs including serum ethanol, drug screen we will be obtained, the patient will require a care team consult. Unclear at this point whether the patient will require inpatient level of care. I have independently reviewed the following tests: Labs: No leukocytosis, not anemic, no electrolyte abnormality, not , ethanol negative, U tox positive for benzodiazepine, viral panel negative Lab Data 03/14/25 00:06 03/14/25 00:06 Labs: Lab Results 03/14/25 03/14/25 Range/Units 00:05 00:06 WBC 8.2 (4.8-10.8) X10*3/uL RBC 4.01 L (4.20-5.50) X10*6/uL Hgb 12.5 (12.0-16.0) g/dl Hct 36.7 L (37.0-47.0) % MCV 91.5 (80.0-98.0) fL MCH 31.2 (27.0-33.0) pg MCHC 34.1 (31.0-35.0) g/dl RDW 13.2 (11.0-16.0) % Plt Count 180 (160-400) X10*3/uL MPV 11.0 (9.4-12.3) fL Immature Gran % (Auto) 0.2 (0.0-0.4) % Neut % (Auto) 35.4 L (45-73) % Lymph % (Auto) 46.5 H (20-40) % Hickman % (Auto) 12.2 H (2-11) % Eos % (Auto) 5.3 H (0-4) % Baso % (Auto) 0.4 (0-2) % Lymph # (Auto) 3.8 (1.2-4.9) X10*3/uL Hickman # (Auto) 1.0 (0.1-1.2) X10*3/uL Eos # (Auto) 0.4 (0.0-0.4) X10*3/uL Baso # (Auto) 0.0 (0.0-0.2) X10*3/uL Abs Immat Gran (auto) 0.02 (0.00-0.03) X10*3/uL Absolute Neuts (auto) 2.9 (2.0-8.3) x10*3/uL Absolute Nucleated RBC 0.000 (0.0-0.012) X10*3/uL Nucleated RBC % (auto) 0.0 (0.0-0.2) /100WBC Sodium 139 (135-145) mmol/L Potassium 3.8 (3.3-5.1) mmol/L Chloride 105 (96-108) mmol/L Carbon Dioxide 25 (22-29) mmol/L Anion Gap 13 (12-20) BUN 21 H (9-16) mg/dL Creatinine 0.80 (0.5-1.4) mg/dL Estim Creat Clear Calc 147.8 Estimated GFR > 60 Random Glucose 126 H (60-115) mg/dL Calcium 9.3 (8.4-10.2) mg/dL Magnesium 1.9 (1.6-2.6) mg/dL Total Bilirubin 0.2 (0.0-1.0) mg/dL AST 16 (5-31) U/L ALT 12 (0-31) U/L Alkaline Phosphatase 46 (39-117) U/L Total Protein 7.2 (6.5-8.0) g/dL Albumin 4.1 (3.5-5.0) g/dL Beta HCG, Quant < 2 mIU/mL Urine Color Yellow Urine Appearance Clear Urine pH 6.0 (5.0-9.0) Ur Specific [place] >= 1.030 H (1.005-1.025) Urine Protein Negative (Neg-Trace) mg/dL Urine Glucose (UA) Negative (Negative) mg/dL Urine Ketones Trace (Negative) mg/dL Urine Blood Negative (Negative) Urine Nitrite Negative (Negative) Ur Leukocyte Esterase Negative (Negative) Salicylates < 5.0 L (15-30) mg/dL Urine Opiates Screen Not Detected (Not Detect) Ur Buprenorphine Scrn Not Detected (Not Detect) ng/mL Ur Oxycodone Screen Not Detected (Not Detect) ng/mL Urine Methadone Screen Not Detected (Not Detect) ng/mL Urine Fentanyl Screen Not Detected (Not Detect) Acetaminophen < 3 (<30) mcg/mL Ur Barbiturates Screen Not Detected (Not Detect) Ur Phencyclidine Scrn Not Detected (Not Detect) Ur Amphetamines Screen Not Detected (Not Detect) U Benzodiazepines Scrn POSITIVE H (Not Detect) Urine Cocaine Screen Not Detected (Not Detect) U Marijuana (THC) Screen Not Detected (Not Detect) Ethyl Alcohol < 10 mg/dL Influenza Type A (PCR) NEGATIVE (Negative) Influenza Type B (PCR) NEGATIVE (Negative) RSV RNA Qual (PCR) NEGATIVE (Negative) SARS-CoV-2 RNA (RT-PCR) NEGATIVE (Negative) Discharge Plan Discharge Clinical Impression: Suicidal ideation, Acute anxiety Patient Disposition: Xfer SNF Transfer Details: [facility] Instructions: Anxiety (ED) Prescriptions: No Action epinephrine [Adrenalin] 1 mg/mL (1 mL) Solution 0.3 mg IM ONCE PRN (Reason: anaphylaxis) Qty: 0 0RF acetaminophen 325 mg Tablet 650 mg PO Q6H PRN (Reason: Headache/Pain Mild Scale (1-3)) Qty: 0 0RF polyethylene glycol 3350 17 gram Powder In Packet 17 g PO BID Qty: 0 0RF divalproex 500 mg Tablet,Delayed Release (Dr/Ec) 500 mg PO TID Qty: 0 0RF levothyroxine 25 mcg tablet 25 mcg PO DAILY@0900 prazosin 1 mg capsule 4 mg PO BEDTIME Protocol: Hold for SBP< HOLD for SBP < : 90 clomipramine 25 mg capsule 175 mg PO BEDTIME diazepam 2 mg tablet 5 mg PO 1600 olanzapine 10 mg tablet 10 mg PO Q6H PRN (Reason: Agitation) Antacid Ext Str (calcium carb) 300 mg (750 mg) tablet,chewable 1,000 mg PO Q8H PRN (Reason: gerd) melatonin 5 mg tablet 5 mg PO BEDTIME PRN (Reason: Insomnia) bisacodyl 10 mg PO Q48H PRN (Reason: Constipation) Patient Own Medication 1 ea ophthalmic (eye) DAILY PRN (Reason: Allergy Symptoms) Patient Comments: olopatadine hcl 0.1% diazepam 2 mg tablet 2 mg PO BID diazepam 2 mg tablet 5 mg PO DAILY PRN (Reason: anxiety, agitation) risperidone 4 mg tablet 4 mg PO BID cetirizine 10 mg PO DAILY PRN (Reason: rhinitis) sennosides-docusate sodium [Stimulant Laxative Plus] 8.6-50 mg tablet 1 tab PO BEDTIME albuterol sulfate [Ventolin HFA] 90 mcg/actuation HFA aerosol inhaler 2 puff inhalation Q4H PRN (Reason: Wheezing) famotidine 20 mg tablet 20 mg PO BID magnesium hydroxide [Milk of Magnesia] 400 mg/5 mL suspension 30 ml PO BEDTIME PRN (Reason: Constipation) diphenhydramine HCl 100 mg PO Q6H PRN (Reason: Anxiety) Interventions: [place]-Suicide Risk Severity Scale Last Done: 03/15/25 03:10 ED Discharge Assessment Last Done: 03/15/25 13:04 Discharge Date/Time: 03/15/25 13:05 Print Language: Maori
[2025-03-13 23:25] VITALS: BP 127/70; PULSE 102; RESP 16; TEMP 36.3; O2SAT 97; O2SAT 99; BMI 31.0
[2025-03-14 00:19] LABS: MANUAL DIFF FLAG NO
[2025-03-14 00:20] LABS: Basophils Percent Auto 0.4 % (0-2); Eosinophils Absolute Auto 0.4 X10*3/uL (0.0-0.4); Eosinophils Percent Auto 5.3 % (0-4); Hematocrit 36.7 % (37.0-47.0); Hemoglobin 12.5 g/dl (12.0-16.0); Imm Gran Abs Auto 0.02 X10*3/uL (0.00-0.03); Imm Gran Pct Auto 0.2 % (0.0-0.4); Lymphocytes Absolute Auto 3.8 X10*3/uL (1.2-4.9); Lymphocytes Percent Auto 46.5 % (20-40); Mean Corpuscular HGB Conc 34.1 g/dl (31.0-35.0); Mean Corpuscular Hemoglobin 31.2 pg (27.0-33.0); Mean Corpuscular Volume 91.5 fL (80.0-98.0); Monocytes Percent Auto 12.2 % (2-11); Neutrophils Absolute Auto 2.9 x10*3/uL (2.0-8.3); Neutrophils Percent Auto 35.4 % (45-73); Platelet Count 180 X10*3/uL (160-400); Red Blood Count 4.01 X10*6/uL (4.20-5.50); Red Cell Distribution Width 13.2 % (11.0-16.0); White Blood Count 8.2 X10*3/uL (4.8-10.8)
[2025-03-14 00:37] LABS: Acetaminophen LAB < 3 mcg/mL (<30); Salicylate < 5.0 mg/dL (15-30)
[2025-03-14 00:37] LABS: Amphetamine Screen Urine Not Detected (Not Detect); Barbiturates, Urine Not Detected (Not Detect); Benzodiazepines Screen Urine POSITIVE (Not Detect); Buprenorphine Scr Not Detected (Not Detect); Cannabinoid Screen Urine Not Detected (Not Detect); Cocaine Screen Urine Not Detected (Not Detect); Fentanyl, urine Not Detected (Not Detect); Methadone Screen, Urine Not Detected (Not Detect); Opiate Screen Urine Not Detected (Not Detect); Oxycodone Screen Urine Not Detected (Not Detect); Phencyclidine Screen Urine Not Detected (Not Detect)
[2025-03-14 00:44] LABS: Alanine Aminotransferase 12 U/L (0-31); Albumin Level 4.1 g/dL (3.5-5.0); Alkaline Phosphatase 46 U/L (39-117); Anion Gap 13 (12-20); Aspartate Amino Transferase 16 U/L (5-31); Bilirubin Total 0.2 mg/dL (0.0-1.0); Blood Urea Nitrogen 21 mg/dL (9-16); Calcium 9.3 mg/dL (8.4-10.2); Carbon Dioxide 25 mmol/L (22-29); Chloride 105 mmol/L (96-108); Creatinine Clr Calc Pharmacy 147.8; Estimated Glomerular Filt Rate > 60; Ethanol < 10 mg/dL; Glucose Random 126 mg/dL (60-115); Magnesium 1.9 mg/dL (1.6-2.6); Potassium 3.8 mmol/L (3.3-5.1); Sodium 139 mmol/L (135-145); Total Protein 7.2 g/dL (6.5-8.0)
[2025-03-14 00:45] LABS: HCG Quantitative < 2 mIU/mL
[2025-03-14 00:57] LABS: Influenza A PCR NEGATIVE (Negative); Influenza B PCR NEGATIVE (Negative); Resp Syncy Virus RNA Qual PCR NEGATIVE (Negative); SARS COV2 PCR INHOUSE NEGATIVE (Negative)
[2025-03-14 06:03] VITALS: RESP 16
--- NOTE | 2025-03-14 07:28 | PC.NURSE ---
Assumed care of patient at 0645, patient appears to be sleeping at this time, respirations even and unlabored, no apparent distress noted. Continue plan of care for CARE team eval today
[2025-03-14] MEDS: Levothyroxine Sodium 25 MCG TABLET PO (08:31)
[2025-03-14] MEDS: polyethylene glycoL 3350 17 GM POWD.PACK PO ×2 (08:31→20:48)
[2025-03-14 08:44] VITALS: BP 101/69; PULSE 92; RESP 14; TEMP 36.1; O2SAT 97
--- NOTE | 2025-03-14 08:45 | PC.NURSE ---
Pt awake at this time, reporting 10/10 anxiety, requesting medications. MD aware that the remainder of the medications from the med rec have not been ordered including PRNS
[2025-03-14] MEDS: risperiDONE 2 MG TABLET 4 MG PO ×2 (09:05→20:48)
[2025-03-14] MEDS: Divalproex Sodium 500 MG TABLET.DR PO ×3 (09:05→20:49)
[2025-03-14] MEDS: diazePAM 2 MG TABLET PO ×2 (09:06→20:48)
[2025-03-14] MEDS: diazePAM 5 MG TABLET PO ×2 (09:11→16:28)
--- NOTE | 2025-03-14 09:11 | PC.NURSE ---
due to increasing anxiety and stress, this RN provided pt with am medications as well as 5mg dose of PRN Valium
--- NOTE | 2025-03-14 09:34 | MHC.CARE ---
Km- father [phone] Anne Marie- [facility] custodial director [phone] Thomas- staff at home today [phone]
--- NOTE | 2025-03-14 10:13 | PC.NURSE ---
This RN sat down to talk with patient. Pt very good at identifying feelings of anxiousness and loneliness. She reports that sometimes at the [facility] she feels isolated and alone but enjoys company from staff members Analilia. Pt reports she feels like she has to isolate so she doesn't bother others. This RN encouraged patient to talk about her feelings with this RN and her [facility] staff members so they can better assist her and prevent her from escalating to the point of wanting to self harm. Pt seemed receptive to this information
[2025-03-14] MEDS: Calcium Carbonate 750 MG TAB.CHEW PO (11:16)
--- NOTE | 2025-03-14 11:27 | PC.NURSE ---
Pt with residential staff member Anne Marie at this time
[2025-03-14] MEDS: diphenhydrAMINE HCL 25 MG CAPSULE 50 MG PO (14:14)
[2025-03-14 14:17] VITALS: BP 109/70; PULSE 73; RESP 14; TEMP 36.7; O2SAT 100
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
--- NOTE | 2025-03-14 14:39 | PC.NURSE ---
late entry: Patient appearing more anxious, pacing around BH pod, verbalizing frustration with not know what to do. She reports that she wants to go home but she doesn't feel safe. She also reports that she wants to stay at the hospital but doesnt know if she would benefit from it. Pt frustrated regarding conflicting thought processes. Patient verbalizes want for additional medication. this RN spoke with Dr. De La Rosa, pt provided with JOHNNY Aquino and Rocio
--- NOTE | 2025-03-14 15:16 | PC.NURSE ---
Pt coloring with custodial staff member Jimmy
[2025-03-14 15:34] LABS: Appearance Urine Clear; Color Urine Yellow; Glucose Urine UA Negative (Negative); Leukocyte Esterase Urine Negative (Negative); Nitrite Urine Negative (Negative); Specific Gravity - Urine >= 1.030 (1.005-1.025); Urine Blood Negative (Negative); Urine Ketones Trace mg/dL (Negative); Urine Protein Negative (Neg-Trace)
--- NOTE | 2025-03-14 17:10 | PC.NURSE ---
Pt resting in bed, no apparent distress noted, respiration even and unlabored, no apparent distress noted at this time. Continue plan of care for follow up tomorrow
--- NOTE | 2025-03-14 18:36 | MHC.EDTECH ---
Patient given dinner tray
[2025-03-14 20:06] VITALS: BP 114/61; PULSE 72; RESP 20; TEMP 37.1; O2SAT 98
[2025-03-14 20:48] VITALS: BP 114/61
[2025-03-14] MEDS: clomiPRAMINE HCl 25 MG CAPSULE 175 MG PO (20:48)
[2025-03-14] MEDS: Prazosin HCL 1 MG CAPSULE 4 MG PO (20:48)
[2025-03-14] MEDS: Melatonin 3 MG TABLET 6 MG PO (20:48)
[2025-03-14] MEDS: Sennosides/Docusate Sodium TABLET 1 TAB PO (20:49)
--- NOTE | 2025-03-15 05:14 | PC.NURSE ---
patient seemingly has had few interruptions in sleep today
[2025-03-15 06:00] VITALS: BP 129/71; PULSE 74; RESP 14; TEMP 36.9; O2SAT 97
[2025-03-15] MEDS: Levothyroxine Sodium 25 MCG TABLET PO (08:05)
[2025-03-15] MEDS: risperiDONE 2 MG TABLET 4 MG PO (08:05)
[2025-03-15] MEDS: Divalproex Sodium 500 MG TABLET.DR PO (08:05)
[2025-03-15] MEDS: diazePAM 2 MG TABLET PO (08:05)
--- NOTE | 2025-03-15 08:25 | PC.NURSE ---
Assumed care of patient at 0645, patient appears to be in no apparent distress this am, calm and cooperative, woke up, ambulated to nurses station to say good morning, received morning medications, spoke with CARE team, now resting back in bed, respirations even and unlabored. Continue plan of care for CARE team follow up
[2025-03-15] MEDS: diazePAM 5 MG TABLET PO (11:33)
[2025-03-15 13:04] VITALS: BP 121/79; PULSE 81; RESP 16; TEMP 37; O2SAT 97
--- NOTE | 2025-03-15 13:05 | PC.NURSE ---
Pt able to verbalize feelings of anxiousness to staff without issue. Pt maintained calmness despite being anxious about transport home. Pt was able to identify positive aspects to being at the alf. Pt provided with PRN Valium for comfort and colored with this RN until alf staff arrived to pick patient up. Pt left ED with alf staff member Anne Marie, no issues during discharge
== END 2025-03-15 13:05 | disposition skilled nursing facility (03) ==
PROVIDERS: Physician Assistant Medical; Emergency Provider Emergency Medicine
DX: F41.9 Anxiety disorder, unspecified (principal); R45.851 Suicidal ideations; F63.81 Intermittent explosive disorder; F43.10 Post-traumatic stress disorder, unspecified; F84.0 Autistic disorder; Z86.59 Personal history of other mental and behavioral disorders; Z79.899 Other long term (current) drug therapy
CPT/HCPCS: 0241U; 80053; 80143; 80179; 80307; 81003; 83735; 84702; 85025; 99285; S9485

== ENCOUNTER → 2025-03-13 22:40 | Outpatient (BNV) | payer OTHER, SELFPAY | PROVIDERS: Emergency Provider Emergency Medicine; Visit Provider Psychiatry & Neurology Psychiatry | DX: F84.0 Autistic disorder (principal); R45.851 Suicidal ideations; F43.10 Post-traumatic stress disorder, unspecified; F63.81 Intermittent explosive disorder | CPT/HCPCS: 99284 ==

== ENCOUNTER 2025-03-28 11:44 | Emergency (ER) | payer OTHER, SELFPAY ==
[2025-03-28 12:00] VITALS: BP 116/75; PULSE 91; RESP 20; TEMP 36.4; BMI 38.9
--- NOTE | 2025-03-28 12:47 | ECG_ITS ---
Test Reason : CHECK PROLONGED QT Blood Pressure : */* mmHG Vent. Rate : 87 BPM Atrial Rate : 87 BPM P-R Int : 140 ms QRS Dur : 86 ms QT Int : 380 ms P-R-T Axes : 34 50 50 degrees QTcB Int : 457 ms Normal sinus rhythm Normal ECG When compared with ECG of 27-May-2023 09:09, No significant change was found Referred By: Reema Domínguez Electronically Signed By: JANET GOODEN MD
--- NOTE | 2025-03-28 12:48 | ED_ITS ---
HPI - Psych General Chief Complaint: Psychiatric Symptoms Stated Complaint: CRISIS Time Seen by Provider: 03/28/25 11:50 Source: patient and EMS Mode of arrival: EMS Limitations: no limitations History of Present Illness ED Provider: Reema Domínguez NP HPI Narrative: Patient is a 25-year-old female with extensive past history of autism spectrum disorder, PTSD, intermittent explosive disorder, chronic institutionalization who presents to the emergency department coming from [facility]. She states that she was just here recently, [facility] but she does not feel as though this is a good fit for her. She feels overwhelmed, the read him to do things in easy access ability to things is very troublesome for her, she has intrusive thoughts of wanting to by jumping in front of a car. She states that she knows her father wants her to try and reside in the community but she feels it is too overwhelming for her and is becoming increasingly more difficult. She denies any recent medication changes. Denies homicidal ideations. Denies recreational drug or alcohol usage. Her most recent institution stays was an 18 month stay at [facility] and prior to that was at [facility] and 5 for inpatient psych from December 2022 to June 2023 Related Data Home Medications ?Medication ?Instructions ?Recorded ?Confirmed albuterol sulfate 90 mcg/actuation 2 puff inhalation Q4H PRN Wheezing 03/14/25 03/28/25 aerosol inhaler (Ventolin HFA) calcium carbonate (Antacid Ext Str 1,000 mg PO Q8H PRN gerd 03/14/25 03/28/25 (calcium carb)) clomipramine 25 mg capsule 175 mg PO BEDTIME 03/14/25 03/28/25 diazepam 2 mg tablet 2 mg PO BID 03/14/25 03/28/25 diazepam 2 mg tablet 5 mg PO 1600 03/14/25 03/28/25 diazepam 2 mg tablet 5 mg PO DAILY PRN anxiety, 03/14/25 03/28/25 agitation diphenhydramine HCl 100 mg PO Q6H PRN Anxiety 03/14/25 03/28/25 famotidine 20 mg tablet 20 mg PO BID 03/14/25 03/28/25 levothyroxine 25 mcg tablet 25 mcg PO DAILY 03/14/25 03/28/25 magnesium hydroxide 400 mg/5 mL 25 ml PO DAILY PRN Constipation 03/14/25 03/28/25 oral suspension (Milk of Magnesia) melatonin 5 mg tablet 5 mg PO BEDTIME PRN Insomnia 03/14/25 03/28/25 olanzapine 10 mg tablet 10 mg PO Q6H PRN Agitation 03/14/25 03/28/25 prazosin 1 mg capsule 4 mg PO BEDTIME 03/14/25 03/28/25 risperidone 4 mg tablet 4 mg PO BID 03/14/25 03/28/25 sennosides 8.6 mg-docusate sodium 1 tab PO BEDTIME 03/14/25 03/28/25 50 mg tablet (Stimulant Laxative Plus) Previous Rx's ?Medication ?Instructions ?Recorded acetaminophen 325 mg tablet 650 mg (2 x 325 mg) PO Q6H PRN 06/26/23 Headache/Pain Mild Scale (1-3) #0 tabs divalproex 500 mg tablet,delayed 500 mg PO TID #0 tabs 06/26/23 release epinephrine 1 mg/mL (1 mL) 0.3 mg (0.3 mL) IM ONCE PRN 06/26/23 injection solution (Adrenalin) anaphylaxis #0 mL polyethylene glycol 3350 17 gram 17 g PO BID #0 ea 06/26/23 oral powder packet Allergies Allergy/AdvReac Type Severity Reaction Status Date / Time chlorpromazine Allergy Severe Anaphylaxis Verified 03/28/25 12:02 [From Thorazine] lithium Allergy Hives Verified 03/28/25 12:02 lorazepam [From Ativan] AdvReac Intermediate Agitated, Verified 03/28/25 12:02 dysregulation haloperidol [From Haldol] AdvReac Agitated Verified 03/28/25 12:02 nut - unspecified AdvReac Anxiety Verified 03/28/25 12:02 Review of Systems 2 Review of Systems: Yes all other systems are reviewed and are negative PMFSH Past Medical History Attestation statement: The following information was validated with the patient. Source: old records reviewed Medical History Chronic restrictive lung disease CHARLES positive Has daytime drowsiness Dyspnea Amenorrhea Peripheral edema PTSD (post-traumatic stress disorder) Autism Developmental disorder Suicidal behavior Homicidal behavior Family History Family History Father No known health problems Mother No problems noted. 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 Household Members Other:: grandmother Housing: Apartment Do you presently have visiting nurse or other home services: No Alcohol intake: never Patient Tobacco Use Status: Never used Tobacco e-Cigarette/Vaping Use: Never Used Advance Directives: Yes Advance Directives on File: Yes Advance Directives Date on File: 06/28/23 Do you have a plan to hurt others: No Plan service: No Sexual orientation: Straight/Heterosexual Cognitive needs: No Hearing needs: No Vision needs: No Physical Exam 2 Vital Signs: Vital Signs: Last Vital Signs Temp 97.9 F 03/29/25 19:20 Pulse 111 H 03/29/25 19:20 Resp 18 03/29/25 19:20 BP 119/71 03/29/25 19:20 Pulse Ox 97 03/29/25 19:20 O2 Del Method Room Air 03/29/25 19:20 BMI result Body Mass Index 38.9 Appearance: Alert.?Oriented to person, place and time. No acute distress.?Normal affect. Eyes: Pupils equal, round and reactive to light.? ENT: Pharynx normal.?? Neck: Normal inspection.? Neck supple.?? CVS: Heart sounds normal. Normal heart rate and rhythm.? Pulses normal.?? Respiratory: No respiratory distress.? Lung sounds clear to auscultation bilaterally?? Abdomen: Soft and non-tender. Normoactive bowel sounds. Skin: Skin warm and dry.? Normal skin color.? Extremities: No lower extremity edema.? Neuro: Moves all extremities spontaneously. Sensation intact bilaterally. CN II- XII intact. No focal neuro deficits. Ambulates with normal steady gait. Course Course Course Narrative: Time: 06:15 Date: 03/30/25 Provider: Kevin Fleming MD Patient in physician observation for psychiatric evaluation.? Patient has been in the emergency department for 42 hours. Patient has been evaluated by care team and disposition in his [facility] [place]. No acute events reported overnight. No current complaints. VS stable.Will continue to monitor. Time: 11:15 hours Date: 03/30/25 Provider: Kevin Fleming MD Physician observation ended at 11:15 hours. Patient has been cleared for discharge by the CARE team. Patient's [facility] staff brought her clothes in medications and are going to drive her to the respite. Medications Administered Generic Name Dose Route Start Last Admin Trade Name Freq PRN Reason Stop Dose Admin Clomipramine HCl 175 mg 03/28/25 21:00 03/29/25 19:22 Clomipramine Hcl 25 Mg Capsule PO 175 mg BEDTIME OSCAR Administration Diazepam 2 mg 03/28/25 21:00 03/29/25 19:18 Diazepam 2 Mg Tablet PO 2 mg BID OSCAR Administration Diazepam 5 mg 03/28/25 16:55 03/29/25 17:43 Diazepam 5 Mg Tablet PO Not Given 1600 OSCAR Diazepam 5 mg 03/28/25 16:53 03/29/25 14:21 Diazepam 5 Mg Tablet PO 5 mg DAILY PRN Administration anxiety, agitation Diphenhydramine HCl 100 mg 03/28/25 17:10 03/29/25 19:18 Diphenhydramine Hcl 25 Mg Capsule PO 100 mg Q6H PRN Administration Anxiety Divalproex Sodium 500 mg 03/28/25 20:00 03/29/25 19:19 Divalproex Sodium 500 Mg Tablet.Dr PO 500 mg TID@0800,1400,2000 OSCAR Administration Famotidine 20 mg 03/28/25 21:00 03/29/25 19:19 Famotidine 20 Mg Tablet PO 20 mg BID OSCAR Administration Levothyroxine Sodium 25 mcg 03/29/25 06:00 03/29/25 10:28 Levothyroxine Sodium 25 Mcg Tablet PO 25 mcg DAILY@0600 OSCAR Administration Melatonin 6 mg 03/28/25 17:10 03/29/25 19:19 Melatonin 3 Mg Tablet PO 6 mg BEDTIME PRN Administration Insomnia Olanzapine 10 mg 03/28/25 16:53 03/29/25 19:18 Olanzapine 10 Mg Tablet PO 10 mg Q6H PRN Administration Agitation Polyethylene Glycol 17 gm 03/28/25 21:00 03/29/25 19:37 Polyethylene Glycol 3350 17 Gm Powd.Pack PO 17 gm BID OSCAR Administration Prazosin HCl 4 mg 03/28/25 21:00 03/29/25 19:19 Prazosin Hcl 1 Mg Capsule PO 4 mg BEDTIME OCSAR Administration Protocol Risperidone 4 mg 03/28/25 21:00 03/29/25 19:18 Risperidone 2 Mg Tablet PO 4 mg BID OSCAR Administration Senna/Docusate Sodium 1 tab 03/28/25 21:00 03/29/25 19:19 Sennosides/Docusate Sodium Tablet PO 1 tab BEDTIME OSCAR Administration Discontinued Medications Generic Name Dose Route Start Last Admin Trade Name Mihir PRN Reason Stop Dose Admin Diazepam 5 mg 03/28/25 12:47 03/28/25 12:51 Diazepam 10 Mg/2 Ml Cartridge IM 03/28/25 12:48 5 mg STAT STA Administration Medical Decision Making Medical Decision Making MDM Narrative: Patient is a 25-year-old female with extensive past history of autism spectrum disorder, PTSD, intermittent explosive disorder, chronic institutionalization who presents emergency department feelings of depression, increased stressors, suicidal ideations. As per HPI she is feeling personally overwhelmed with community living and does not feel that this is what is best for her at this time. She presents an anxious requesting something to help calm her down, she has previously responded well to diazepam for which she received diazepam 5 mg IM. Time: 0800 Date: 03/29/25 Provider: Adam Hernandez, DO Patient in physician observation for psychiatric evaluation.? Patient is in bed search. Will continue to monitor. Differential Diagnosis Differential Diagnoses: The differential diagnosis associated with the presentation includes (See narrative above and below for further detail) Admission/Observation Consideration of admission/observation: Escalation of care including admission/observation considered Patient is being observed in the Emergency Department for anxiety and suicidal ideation. Observation time was started at 13:05 on 03/28/2025?The patient is currently stable and non-toxic appearing. Observation is being initiated in the Emergency Department to allow time to help differentiate if the patient's suicidal ideation and anxiety is due to Substance Induced Mood Disorder and Anxiety versus Major Depressive Disorder, Bipolar Lanette, Bipolar Depression, and Schizophrenia. The patient will receive frequent psychiatric assessments from the provider as well as from nursing staff. The patient will also be monitored for the need of PRN agitation medications such as Haldol, Ativan, and Benadryl. Consult Healthcare Provider Management of the patient was discussed with: Behavioral Health Provider (CARE team) Lab Data [facility] Lab Attestation statement: I reviewed the patient's lab results. cbc without leukocytosis, anemia, thrombocytopenia. no significant electrolyte derangement, no GIN. hcg negative.U/A w/o compelling infection. tox positive for benzos, which she is prescribed. 03/28/25 13:30 03/28/25 13:30 Labs: Lab Results 03/28/25 Range/Units 13:30 WBC 7.4 (4.8-10.8) X10*3/uL RBC 4.11 L (4.20-5.50) X10*6/uL Hgb 12.7 (12.0-16.0) g/dl Hct 37.8 (37.0-47.0) % MCV 92.0 (80.0-98.0) fL MCH 30.9 (27.0-33.0) pg MCHC 33.6 (31.0-35.0) g/dl RDW 13.1 (11.0-16.0) % Plt Count 174 (160-400) X10*3/uL MPV 10.8 (9.4-12.3) fL Immature Gran % (Auto) 0.1 (0.0-0.4) % Neut % (Auto) 45.3 (45-73) % Lymph % (Auto) 37.1 (20-40) % Mcn[place] % (Auto) 13.0 H (2-11) % Eos % (Auto) 4.1 H (0-4) % Baso % (Auto) 0.4 (0-2) % Lymph # (Auto) 2.7 (1.2-4.9) X10*3/uL [place] # (Auto) 1.0 (0.1-1.2) X10*3/uL Eos # (Auto) 0.3 (0.0-0.4) X10*3/uL Baso # (Auto) 0.0 (0.0-0.2) X10*3/uL Abs Immat Gran (auto) 0.01 (0.00-0.03) X10*3/uL Absolute Neuts (auto) 3.3 (2.0-8.3) x10*3/uL Absolute Nucleated RBC 0.000 (0.0-0.012) X10*3/uL Nucleated RBC % (auto) 0.0 (0.0-0.2) /100WBC Sodium 141 (135-145) mmol/L Potassium 4.2 (3.3-5.1) mmol/L Chloride 110 H (96-108) mmol/L Carbon Dioxide 25 (22-29) mmol/L Anion Gap 10 L (12-20) BUN 12 (9-16) mg/dL Creatinine 0.75 (0.5-1.4) mg/dL Estim Creat Clear Calc 192.8 Estimated GFR > 60 Random Glucose 88 (60-115) mg/dL Calcium 9.2 (8.4-10.2) mg/dL Total Bilirubin 0.3 (0.0-1.0) mg/dL AST 16 (5-31) U/L ALT 13 (0-31) U/L Alkaline Phosphatase 38 L (39-117) U/L Total Protein 6.8 (6.5-8.0) g/dL Albumin 4.0 (3.5-5.0) g/dL Beta HCG, Quant < 2 mIU/mL Urine Color Yellow Urine Appearance Clear Urine pH 7.0 (5.0-9.0) Ur Specific [place] 1.020 (1.005-1.025) Urine Protein Negative (Neg-Trace) mg/dL Urine Glucose (UA) Negative (Negative) mg/dL Urine Ketones Negative (Negative) mg/dL Urine Blood Negative (Negative) Urine Nitrite Negative (Negative) Ur Leukocyte Esterase Trace H (Negative) Urine RBC 0-2 (0-2) /HPF Urine WBC 0-5 (0-5) /HPF Ur Squamous Epith Cells 0-2 (0-2) /HPF Urine Bacteria None Seen (None Seen) Hyaline Casts 0-2 (0-2) /LPF Urine Opiates Screen Not Detected (Not Detect) Ur Buprenorphine Scrn Not Detected (Not Detect) ng/mL Ur Oxycodone Screen Not Detected (Not Detect) ng/mL Urine Methadone Screen Not Detected (Not Detect) ng/mL Urine Fentanyl Screen Not Detected (Not Detect) Ur Barbiturates Screen Not Detected (Not Detect) Ur Phencyclidine Scrn Not Detected (Not Detect) Ur Amphetamines Screen Not Detected (Not Detect) U Benzodiazepines Scrn POSITIVE H (Not Detect) Urine Cocaine Screen Not Detected (Not Detect) U Marijuana (THC) Screen Not Detected (Not Detect) Ethyl Alcohol < 10 mg/dL Radiology Impression Discussion of test interpretation with radiology: I have reviewed the radiologist's reading. Independent Historian Clinical information obtained from an independent historian. History obtained from or confirmed by: EMS External Record Review External record reviewed: Inpatient record and Outpatient record Chronic Conditions Patient?s care impacted by: Other (See narrative above) Social Determinants Patient?s care significantly limited by Social Determinants of Health including: Other Social Determinant of Health (See narrative above, chronic institutionalization) Critical Care Time Critical Care Time Critical Care Time: Yes Total Critical Care Time: 40 Attestation: I personally attest to this critical care time spent taking care of the patient exclusive of all other billable procedures was approximately 40 minutes including initial evaluation of patient, ordering tests, Diazapam IM and re- evaluation, EKG interpretation, medical consultation, documentation, re- evaluation. Discharge Plan Discharge Clinical Impression: Depression, Autism, Suicidal ideation Patient Disposition: Xfer Other Transfer Details: [facility] resp[facility] Additional Instructions: Follow the care team instructions. Continue taking medications as prescribed by your providers. Please return to the emergency department if your symptoms get worse or if you develop any symptoms that are concerning to you. You were seen in our Emergency Department today for treatment of a behavioral health issue. It is important after your visit that you follow up with either your behavioral health provider or a primary care doctor within 7 days.? If you have trouble finding a therapist you can reach out to [address] [phone] The National Suicide and Crisis Lifeline can be reached 7 days a week 24 hours a day.? Call 988 to speak with someone.? Return for any worsening symptoms or concerns such as thoughts of self harm or harm to others. Please call 911 if you feel your mental health is worsening.? Prescriptions: No Action epinephrine [Adrenalin] 1 mg/mL (1 mL) Solution 0.3 mg IM ONCE PRN (Reason: anaphylaxis) Qty: 0 0RF acetaminophen 325 mg Tablet 650 mg PO Q6H PRN (Reason: Headache/Pain Mild Scale (1-3)) Qty: 0 0RF polyethylene glycol 3350 17 gram Powder In Packet 17 g PO BID Qty: 0 0RF divalproex 500 mg Tablet,Delayed Release (Dr/Ec) 500 mg PO TID Qty: 0 0RF levothyroxine 25 mcg tablet 25 mcg PO DAILY prazosin 1 mg capsule 4 mg PO BEDTIME Protocol: Hold for SBP< HOLD for SBP < : 90 clomipramine 25 mg capsule 175 mg PO BEDTIME diazepam 2 mg tablet 5 mg PO 1600 olanzapine 10 mg tablet 10 mg PO Q6H PRN (Reason: Agitation) Antacid Ext Str (calcium carb) 300 mg (750 mg) tablet,chewable 1,000 mg PO Q8H PRN (Reason: gerd) melatonin 5 mg tablet 5 mg PO BEDTIME PRN (Reason: Insomnia) diazepam 2 mg tablet 2 mg PO BID diazepam 2 mg tablet 5 mg PO DAILY PRN (Reason: anxiety, agitation) risperidone 4 mg tablet 4 mg PO BID sennosides-docusate sodium [Stimulant Laxative Plus] 8.6-50 mg tablet 1 tab PO BEDTIME albuterol sulfate [Ventolin HFA] 90 mcg/actuation HFA aerosol inhaler 2 puff inhalation Q4H PRN (Reason: Wheezing) famotidine 20 mg tablet 20 mg PO BID magnesium hydroxide [Milk of Magnesia] 400 mg/5 mL suspension 25 ml PO DAILY PRN (Reason: Constipation) diphenhydramine HCl 100 mg PO Q6H PRN (Reason: Anxiety) Interventions: [place]-Suicide Risk Severity Scale Last Done: 03/29/25 12:20 Print Language: Trinidadian
[2025-03-28] MEDS: diazePAM 10 MG/2 ML CARTRIDGE 5 MG IM (12:51)
[2025-03-28 13:35] LABS: MANUAL DIFF FLAG NO
[2025-03-28 13:37] LABS: Basophils Percent Auto 0.4 % (0-2); Eosinophils Absolute Auto 0.3 X10*3/uL (0.0-0.4); Eosinophils Percent Auto 4.1 % (0-4); Hematocrit 37.8 % (37.0-47.0); Hemoglobin 12.7 g/dl (12.0-16.0); Imm Gran Abs Auto 0.01 X10*3/uL (0.00-0.03); Imm Gran Pct Auto 0.1 % (0.0-0.4); Lymphocytes Absolute Auto 2.7 X10*3/uL (1.2-4.9); Lymphocytes Percent Auto 37.1 % (20-40); Mean Corpuscular HGB Conc 33.6 g/dl (31.0-35.0); Mean Corpuscular Hemoglobin 30.9 pg (27.0-33.0); Mean Platelet Volume 10.8 fL (9.4-12.3); Neutrophils Absolute Auto 3.3 x10*3/uL (2.0-8.3); Neutrophils Percent Auto 45.3 % (45-73); Platelet Count 174 X10*3/uL (160-400); Red Blood Count 4.11 X10*6/uL (4.20-5.50); Red Cell Distribution Width 13.1 % (11.0-16.0); White Blood Count 7.4 X10*3/uL (4.8-10.8)
[2025-03-28 13:38] LABS: Appearance Urine Clear; Color Urine Yellow; Glucose Urine UA Negative (Negative); Leukocyte Esterase Urine Trace (Negative); Nitrite Urine Negative (Negative); UMIC TRIGGER UACC YES; Urine Blood Negative (Negative); Urine Ketones Negative (Negative); Urine Protein Negative (Neg-Trace)
[2025-03-28 13:43] LABS: Bacteria Urine None Seen (None Seen); Hyaline Casts Urine 0-2 /LPF (0-2); RBC Urine 0-2 /HPF (0-2); Squamous Epithelial Cell Urine 0-2 /HPF (0-2); WBC Urine 0-5 /HPF (0-5)
[2025-03-28 13:46] LABS: Amphetamine Screen Urine Not Detected (Not Detect); Barbiturates, Urine Not Detected (Not Detect); Benzodiazepines Screen Urine POSITIVE (Not Detect); Buprenorphine Scr Not Detected (Not Detect); Cannabinoid Screen Urine Not Detected (Not Detect); Cocaine Screen Urine Not Detected (Not Detect); Fentanyl, urine Not Detected (Not Detect); Methadone Screen, Urine Not Detected (Not Detect); Opiate Screen Urine Not Detected (Not Detect); Oxycodone Screen Urine Not Detected (Not Detect); Phencyclidine Screen Urine Not Detected (Not Detect)
[2025-03-28 13:50] LABS: Ethanol < 10 mg/dL
[2025-03-28 13:56] LABS: Alanine Aminotransferase 13 U/L (0-31); Alkaline Phosphatase 38 U/L (39-117); Anion Gap 10 (12-20); Aspartate Amino Transferase 16 U/L (5-31); Bilirubin Total 0.3 mg/dL (0.0-1.0); Blood Urea Nitrogen 12 mg/dL (9-16); Calcium 9.2 mg/dL (8.4-10.2); Carbon Dioxide 25 mmol/L (22-29); Chloride 110 mmol/L (96-108); Creatinine Clr Calc Pharmacy 192.8; Estimated Glomerular Filt Rate > 60; Glucose Random 88 mg/dL (60-115); Potassium 4.2 mmol/L (3.3-5.1); Sodium 141 mmol/L (135-145); Total Protein 6.8 g/dL (6.5-8.0)
[2025-03-28 13:57] LABS: HCG Quantitative < 2 mIU/mL
[2025-03-28 14:52] VITALS: BP 116/75; PULSE 91; RESP 20; TEMP 36.4
--- NOTE | 2025-03-28 15:00 | MHC.EDTECH ---
This tech took over care of patient at 1500, patient is calm/cooperative walking around unit at this time
--- NOTE | 2025-03-28 16:54 | PC.NURSE ---
ASSUMED CARE OF PT AT APPROXIMATELY 0250. PT IS IN BEHAVIORAL CONTROL AT THIS TIME. SHE MET WITH [facility] STAFF. PT IS REQUESTING PRN MEDS FOR AGITATION. REPORTS GUILT AND EMBARRASSMENT OVER HARMING RETIREMENT STAFF. NO MEDICAL CONCERNS AT THIS TIME
--- NOTE | 2025-03-28 17:09 | MHC.EDTECH ---
Patient was given a turkey sandwich.cheese sticks and a cup of gingrale per request, pt is calm and cooperative at this time.
--- NOTE | 2025-03-28 17:12 | PHA.MEDREC ---
Pharmacy Consult ? Medication Reconciliation Pharmacy has reviewed the medication reconciliation done by nursing. Per med list from [facility], patient takes divalproex DR 500 mg tid @ 8am, 2pm and 8pm.
[2025-03-28] MEDS: diphenhydrAMINE HCL 25 MG CAPSULE 100 MG PO (17:14)
[2025-03-28] MEDS: OLANZapine 10 MG TABLET PO (17:15)
[2025-03-28] MEDS: diazePAM 5 MG TABLET PO ×2 (17:15→18:17)
--- NOTE | 2025-03-28 18:05 | MHC.EDTECH ---
Patient was given dinner tray
--- NOTE | 2025-03-28 18:13 | MHC.EDTECH ---
Patient ate half of her dinner,drank 240MLS
--- NOTE | 2025-03-28 19:23 | PC.NURSE ---
patient appears to remain at rest presently respirations are even and unlabored patient appears in no distress
[2025-03-28] MEDS: risperiDONE 2 MG TABLET 4 MG PO (21:31)
[2025-03-28] MEDS: Famotidine 20 MG TABLET PO (21:31)
[2025-03-28 21:32] VITALS: BP 116/75
[2025-03-28] MEDS: clomiPRAMINE HCl 25 MG CAPSULE 175 MG PO (21:32)
[2025-03-28] MEDS: polyethylene glycoL 3350 17 GM POWD.PACK PO (21:32)
[2025-03-28] MEDS: Sennosides/Docusate Sodium TABLET 1 TAB PO (21:32)
[2025-03-28] MEDS: diazePAM 2 MG TABLET PO (21:32)
[2025-03-28] MEDS: Prazosin HCL 1 MG CAPSULE 4 MG PO (21:32)
[2025-03-28] MEDS: Divalproex Sodium 500 MG TABLET.DR PO (21:43)
[2025-03-28] MEDS: Melatonin 3 MG TABLET 6 MG PO (22:50)
--- NOTE | 2025-03-29 03:05 | PC.NURSE ---
Took over care from RN Mandie's, pt sleeping at this time.
[2025-03-29 06:16] VITALS: RESP 16
--- NOTE | 2025-03-29 06:19 | MHC.EDTECH ---
t/w and KAYLIE Elder attempted to give pt morning scheduled medication. pt refused stating I don't take 6am meds.. I get them with all my other meds.
--- NOTE | 2025-03-29 06:19 | PC.NURSE ---
pt refusing to take 6am medication, requesting to medication to take her 6am with her other medication, medication return in Pyxis , witness by EMANUEL naik
--- NOTE | 2025-03-29 07:01 | PC.NURSE ---
Addendum entered by Ronel Tim RN 03/29/25 07:02: Patient is a 25-year-old female with extensive past history of autism spectrum disorder, PTSD, intermittent explosive disorder, chronic institutionalization who presents to the emergency department coming from [facility]. She states that she was just here recently, she was discharged back to the [facility] but she does not feel as though this is a good fit for her. She feels overwhelmed, she has intrusive thoughts of wanting to by jumping in front of a car. She states that she knows her father wants her to try and reside in the community but she feels it is too overwhelming for her and is becoming increasingly more difficult. She denies any recent medication changes. Denies homicidal ideations. Denies recreational drug or alcohol usage. Patient is resting comfortably at this time. Respirations even and non-labored. No distress noted. Original Note: Medical History Chronic restrictive lung disease CHARLES positive Has daytime drowsiness Dyspnea Amenorrhea Peripheral edema PTSD (post-traumatic stress disorder) Autism Developmental disorder Suicidal behavior Homicidal behavior
[2025-03-29] MEDS: polyethylene glycoL 3350 17 GM POWD.PACK PO ×2 (10:28→19:37)
[2025-03-29] MEDS: Famotidine 20 MG TABLET PO ×2 (10:28→19:19)
[2025-03-29] MEDS: Levothyroxine Sodium 25 MCG TABLET PO (10:28)
[2025-03-29] MEDS: Divalproex Sodium 500 MG TABLET.DR PO ×3 (10:29→19:19)
[2025-03-29] MEDS: risperiDONE 2 MG TABLET 4 MG PO ×2 (10:29→19:18)
[2025-03-29] MEDS: diazePAM 2 MG TABLET PO ×2 (10:29→19:18)
--- NOTE | 2025-03-29 10:36 | PC.NURSE ---
Care team at the bedside
--- NOTE | 2025-03-29 12:55 | MHC.CARE ---
CARE Team speaks with pt?s Father Km, who expressed concern that pt may harm someone.? He reports that pt has been unable to see a therapist since she moved in to the [facility] as one had not been assigned, and once one was, the session was cancelled due to an emergency. He reports that pt has been receiving support from [facility] staff in the interim. He stated that pt has been doing well, but she requires more interventions that she has been receiving and expresses concern that [facility] staff may be susceptible to injury as they do not know pt well and thus may unintentionally overlook some warning signs of her escalating. He reports that he believes inpatient psychiatric admission or a respite admission may be beneficial.? Pt?s father was advised that pt does not appear to meet the criteria for an inpatient psychiatric admission at this time.
--- NOTE | 2025-03-29 13:20 | MHC.CARE ---
[facility] was discussed with pt, with the potential opportunity to await placement at a [facility] facility. Pt declined, stating she does not want to return and requires detention placement.
--- NOTE | 2025-03-29 13:26 | MHC.CARE ---
Spoke with Anne Marie from the [facility]. She reports that their team is looking for a [facility] respite bed for pt. There is nothing guaranteed thus far and the search is still early.
--- NOTE | 2025-03-29 13:54 | MHC.CARE ---
Spoke with Jl from the halfway who reports that pt could benefit from an [facility] admission and that they are receiving push back from pt's father on a return to the halfway. CARE Team advised Jl that they spoke with Anne Marie from the [facility], who advised them that they are looking for an ACCS placement and were inquiring with their parent company [facility]. Jl reports that they are actually NOT doing the inquiry/search and he asks CARE Team to do so.
--- NOTE | 2025-03-29 14:12 | MHC.CARE ---
CARE Team confirmed that [facility] redceived the fax for the [facility]S referral.
--- NOTE | 2025-03-29 14:15 | MHC.CARE ---
CARE Team speaks with Jl from the prison and advises him that the ACCS referral was faxed and received. He was also advised that she will require a ride to the prison and her medications, should she be accepted.
[2025-03-29] MEDS: diazePAM 5 MG TABLET PO (14:21)
[2025-03-29 15:15] VITALS: BP 104/66; PULSE 82; RESP 18; TEMP 36.4; O2SAT 98
[2025-03-29] MEDS: OLANZapine 10 MG TABLET PO (19:18)
[2025-03-29] MEDS: diphenhydrAMINE HCL 25 MG CAPSULE 100 MG PO (19:18)
[2025-03-29 19:19] VITALS: BP 119/71
[2025-03-29] MEDS: Prazosin HCL 1 MG CAPSULE 4 MG PO (19:19)
[2025-03-29] MEDS: Sennosides/Docusate Sodium TABLET 1 TAB PO (19:19)
[2025-03-29] MEDS: Melatonin 3 MG TABLET 6 MG PO (19:19)
[2025-03-29 19:20] VITALS: BP 119/71; PULSE 111; RESP 18; TEMP 36.6; O2SAT 97
[2025-03-29] MEDS: clomiPRAMINE HCl 25 MG CAPSULE 175 MG PO (19:22)
--- NOTE | 2025-03-29 21:25 | MHC.CARE ---
Contacted [facility] to inquire the status of ACCS referral. Mi noted that it is pending a nurse to nurse however, stated that the nurse was behind and was not able to provide a time line as to when the nurse to nurse may occur. This selling underwriter notified Pod RN that [facility] may call sometime this evening regarding a nurse to nurse for possible ACCS referral. Further follow up will occur pending the nurse to nurse.
--- NOTE | 2025-03-29 21:46 | PC.NURSE ---
Nurse to nurse done with KAYLIE Trimble at 2145, [facility] in [place].
--- NOTE | 2025-03-30 | MHC.CARE ---
Pt was accepted to [facility] for Saturday03/30/25 with an ETA of 1215PM. Pt's half-way will be contacted in the AM to inquire if staff is able to drop off clothing and medications prior to arrival to [facility] and transportation will be set up prior to her admission. Information was passed to first shift care team and coordinator and further follow up will occur as needed moving forward.
--- NOTE | 2025-03-30 07:13 | PC.NURSE ---
Patient is a 25-year-old female with extensive past history of autism spectrum disorder, PTSD, intermittent explosive disorder, chronic institutionalization who presents to the emergency department coming from [facility]. She states that she was just here recently, she was [facility] the [facility] but she does not feel as though this is a good fit for her. She feels overwhelmed, she has intrusive thoughts of wanting to by jumping in front of a car. She states that she knows her father wants her to try and reside in the community but she feels it is too overwhelming for her and is becoming increasingly more difficult. She denies any recent medication changes. Denies homicidal ideations. Denies recreational drug or alcohol usage. Patient is resting comfortably at this time. Respirations even and non-labored. No distress noted. Plan for transition to respite today. Original Note: Medical History Chronic restrictive lung disease CHARLES positive Has daytime drowsiness Dyspnea Amenorrhea Peripheral edema PTSD (post-traumatic stress disorder) Autism Developmental disorder Suicidal behavior Homicidal behavior
--- NOTE | 2025-03-30 09:26 | MHC.CARE ---
Pt accepted to [facility] for 12:15 PM, staff from [facility] ([facility]) was notified and staff will pick her up and transport her to [facility] at 11:45 AM. ED provider and RN notified and discharge was put it was also informed of discharge plan.
[2025-03-30] MEDS: Divalproex Sodium 500 MG TABLET.DR PO (10:44)
[2025-03-30] MEDS: Levothyroxine Sodium 25 MCG TABLET PO (10:44)
[2025-03-30] MEDS: diazePAM 2 MG TABLET PO (10:44)
[2025-03-30] MEDS: risperiDONE 2 MG TABLET 4 MG PO (10:44)
[2025-03-30] MEDS: polyethylene glycoL 3350 17 GM POWD.PACK PO (10:45)
[2025-03-30] MEDS: Famotidine 20 MG TABLET PO (10:45)
--- NOTE | 2025-03-30 11:18 | MHC.EDTECH ---
patient ambulated to bathroom to shower,AM care done RN aware
--- NOTE | 2025-03-30 12:46 | PC.NURSE ---
Patient transitioned to a respite facility with prison staff.
== END 2025-03-30 12:47 | disposition other institution (70) ==
PROVIDERS: Nurse Practitioner Family; Emergency Provider Emergency Medicine
DX: F32.A Depression, unspecified (principal); F84.0 Autistic disorder; R45.851 Suicidal ideations; F43.10 Post-traumatic stress disorder, unspecified; F63.81 Intermittent explosive disorder; Z79.899 Other long term (current) drug therapy
CPT/HCPCS: 36415; 80053; 80307; 81001; 84702; 85025; 93005; 96372; 99285; J3360; S9485

== ENCOUNTER → 2025-03-28 12:47 | Outpatient (BNV) | payer OTHER, SELFPAY | PROVIDERS: Emergency Provider Emergency Medicine; Visit Provider Internal Medicine Cardiovascular Disease | DX: Z13.6 Encounter for screening for cardiovascular disorders (principal); W19.XXXA Unspecified fall, initial encounter | CPT/HCPCS: 93010 ==

== ENCOUNTER 2025-04-08 19:29 | Emergency (ER) | payer OTHER, SELFPAY ==
[2025-04-08 19:38] VITALS: PULSE 84; O2SAT 97
[2025-04-08 19:45] VITALS: BMI 28.0
[2025-04-08 19:54] VITALS: BP 112/71; PULSE 85; RESP 18; TEMP 36.6; O2SAT 96
[2025-04-08 20:08] LABS: MANUAL DIFF FLAG NO
[2025-04-08 20:23] LABS: Amphetamine Screen Urine Not Detected (Not Detect); Barbiturates, Urine Not Detected (Not Detect); Benzodiazepines Screen Urine POSITIVE (Not Detect); Buprenorphine Scr Not Detected (Not Detect); Cannabinoid Screen Urine Not Detected (Not Detect); Cocaine Screen Urine Not Detected (Not Detect); Fentanyl, urine Not Detected (Not Detect); Methadone Screen, Urine Not Detected (Not Detect); Opiate Screen Urine Not Detected (Not Detect); Oxycodone Screen Urine Not Detected (Not Detect); Phencyclidine Screen Urine Not Detected (Not Detect)
[2025-04-08 20:25] LABS: Appearance Urine Clear; Color Urine Yellow; Glucose Urine UA Negative (Negative); Leukocyte Esterase Urine Trace (Negative); Nitrite Urine Negative (Negative); Specific Gravity - Urine 1.025 (1.005-1.025); UMIC TRIGGER UA YES; Urine Blood Negative (Negative); Urine Ketones Trace mg/dL (Negative); Urine Protein Negative (Neg-Trace)
[2025-04-08 20:26] LABS: Basophils Percent Auto 0.4 % (0-2); Eosinophils Absolute Auto 0.5 X10*3/uL (0.0-0.4); Eosinophils Percent Auto 6.8 % (0-4); Hematocrit 37.5 % (37.0-47.0); Imm Gran Abs Auto 0.02 X10*3/uL (0.00-0.03); Imm Gran Pct Auto 0.3 % (0.0-0.4); Lymphocytes Absolute Auto 3.1 X10*3/uL (1.2-4.9); Lymphocytes Percent Auto 40.7 % (20-40); Mean Corpuscular HGB Conc 34.7 g/dl (31.0-35.0); Mean Corpuscular Hemoglobin 31.8 pg (27.0-33.0); Mean Corpuscular Volume 91.7 fL (80.0-98.0); Mean Platelet Volume 11.2 fL (9.4-12.3); Monocytes Absolute Auto 1.1 X10*3/uL (0.1-1.2); Monocytes Percent Auto 14.9 % (2-11); Neutrophils Absolute Auto 2.8 x10*3/uL (2.0-8.3); Neutrophils Percent Auto 36.9 % (45-73); Platelet Count 170 X10*3/uL (160-400); Red Blood Count 4.09 X10*6/uL (4.20-5.50); Red Cell Distribution Width 13.2 % (11.0-16.0); UPreg QC Valid YES; Urine Pregnancy NEGATIVE (NEGATIVE); White Blood Count 7.5 X10*3/uL (4.8-10.8)
[2025-04-08 20:28] LABS: Bacteria Urine None Seen (None Seen); Hyaline Casts Urine 0-2 /LPF (0-2); RBC Urine 0-2 /HPF (0-2); Squamous Epithelial Cell Urine 0-2 /HPF (0-2); WBC Urine 0-5 /HPF (0-5)
[2025-04-08 20:34] LABS: Acetaminophen LAB < 3 mcg/mL (<30); Alanine Aminotransferase 14 U/L (0-31); Albumin Level 4.2 g/dL (3.5-5.0); Alkaline Phosphatase 42 U/L (39-117); Anion Gap 10 (12-20); Aspartate Amino Transferase 18 U/L (5-31); Bilirubin Total 0.2 mg/dL (0.0-1.0); Blood Urea Nitrogen 15 mg/dL (9-16); Calcium 9.1 mg/dL (8.4-10.2); Carbon Dioxide 26 mmol/L (22-29); Chloride 109 mmol/L (96-108); Creatinine Clr Calc Pharmacy 136.2; Estimated Glomerular Filt Rate > 60; Ethanol < 10 mg/dL; Glucose Random 86 mg/dL (60-115); Potassium 4.3 mmol/L (3.3-5.1); Salicylate < 5.0 mg/dL (15-30); Sodium 141 mmol/L (135-145); Total Protein 7.1 g/dL (6.5-8.0)
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
--- NOTE | 2025-04-08 21:20 | PHA.MEDREC ---
Pharmacy Consult ? Medication Reconciliation RN has completed the medication reconciliation, [facility] reviewed.
[2025-04-08] MEDS: risperiDONE 2 MG TABLET 4 MG PO (21:30)
[2025-04-08] MEDS: Melatonin 3 MG TABLET 6 MG PO (21:30)
[2025-04-08] MEDS: Famotidine 20 MG TABLET PO (21:30)
[2025-04-08] MEDS: Divalproex Sodium 500 MG TABLET.DR PO (21:30)
[2025-04-08 21:31] VITALS: BP 129/75
[2025-04-08] MEDS: Prazosin HCL 1 MG CAPSULE 4 MG PO (21:31)
[2025-04-08] MEDS: OLANZapine 10 MG TABLET PO (21:31)
[2025-04-08 21:32] VITALS: BP 129/75; PULSE 96; RESP 18; TEMP 36.2; O2SAT 98
[2025-04-08] MEDS: Sennosides/Docusate Sodium TABLET 1 TAB PO (21:32)
[2025-04-08] MEDS: clomiPRAMINE HCl 25 MG CAPSULE 150 MG PO (21:32)
[2025-04-08] MEDS: clomiPRAMINE HCl 25 MG CAPSULE PO (21:32)
[2025-04-08] MEDS: polyethylene glycoL 3350 17 GM POWD.PACK PO (21:39)
[2025-04-08] MEDS: diazePAM 2 MG TABLET PO (21:39)
[2025-04-08] MEDS: diphenhydrAMINE HCL 25 MG CAPSULE 100 MG PO (22:46)
[2025-04-09] MEDS: Levothyroxine Sodium 25 MCG TABLET PO (06:19)
[2025-04-09 06:23] VITALS: BP 109/82; PULSE 75; RESP 16; TEMP 36.5; O2SAT 96
--- NOTE | 2025-04-09 06:48 | PC.NURSE ---
Assumed care of patient at 0645, patient appears to be sleeping, respirations even and unlabored, no apparent distress is noted at this time. Patient is pending CARE team rosanne
--- NOTE | 2025-04-09 10:08 | PC.NURSE ---
Holding off morning medication administration until patient is awake to avoid agitation
[2025-04-09] MEDS: diazePAM 2 MG TABLET PO (11:01)
[2025-04-09] MEDS: Divalproex Sodium 500 MG TABLET.DR PO ×2 (11:01→16:16)
[2025-04-09] MEDS: diazePAM 5 MG TABLET PO ×2 (11:01→16:16)
[2025-04-09] MEDS: Famotidine 20 MG TABLET PO (11:01)
[2025-04-09] MEDS: risperiDONE 2 MG TABLET 4 MG PO (11:04)
[2025-04-09] MEDS: polyethylene glycoL 3350 17 GM POWD.PACK PO (11:12)
--- NOTE | 2025-04-09 11:13 | PC.NURSE ---
Pt awake at this time, calm and cooperative, reporting anxiety, provided with breakfast and morning medications (originally documented against Miralax, then pt wanted it, documented as unscheduled). Pt is currently pending CARE re-eval while on an external inpatient bedsearch
[2025-04-09] MEDS: OLANZapine 10 MG TABLET PO ×2 (12:03→16:57)
[2025-04-09] MEDS: diphenhydrAMINE HCL 25 MG CAPSULE 100 MG PO ×2 (12:03→17:20)
--- NOTE | 2025-04-09 12:51 | MHC.CARE ---
Addendum entered by Katlin Lima [facility] 04/09/25 13:23: [facility] has received the referral/ in review/ consideration Original Note: [facility] / respite referral faxed to [facility]
--- NOTE | 2025-04-09 15:35 | MHC.CARE ---
Call to [facility] to inquire into referral's status. Informed there is not a female bed for her today. Told to call tomorrow/ re-refer if patient continues to meet [facility] loc. T/w spoke with nurse Radha and let her know that there is not a [facility] bed available. Patient is asleep, does not seem clinically appropriate to wake for this news. Once awake patient will need to be informed. If she able to engage in safety planning to return to snf, per t/w call to earlier, they appear receptive to this. If she is wanting to pursue [facility] tomorrow, that is also okay. Spoke with ED attending Jessica regarding patinet/ her hx/ possible outcomes.
--- NOTE | 2025-04-09 16:17 | PC.NURSE ---
Pt reporting frustrations with waiting for respite bed, slammed fists against wall. Was able to be verbally de-escalated and redirected by this RN. Pt took medications and plan is now for discharge back to [facility]
[2025-04-09 18:44] VITALS: BP 124/88; PULSE 74; RESP 16; TEMP 37.1; O2SAT 97
== END 2025-04-09 18:49 | disposition home or self-care (01) ==
PROVIDERS: Emergency Provider Internal Medicine; PCP Physician Assistant
DX: R45.851 Suicidal ideations (principal); F84.0 Autistic disorder; F43.10 Post-traumatic stress disorder, unspecified; F63.81 Intermittent explosive disorder; Z79.899 Other long term (current) drug therapy
CPT/HCPCS: 36415; 80053; 80143; 80179; 80307; 81001; 81025; 85025; 99285; S9485

== ENCOUNTER 2025-05-28 18:50 | Emergency (ER) | payer OTHER, SELFPAY ==
[2025-05-28 19:09] VITALS: BP 123/74; BP 130/90; PULSE 103; PULSE 97; RESP 18; TEMP 36.8; O2SAT 93; O2SAT 95; BMI 38.5
[2025-05-28 20:27] LABS: MANUAL DIFF FLAG NO
[2025-05-28 20:28] LABS: Hematocrit 40.3 % (37.0-47.0); Hemoglobin 13.4 g/dl (12.0-16.0); Imm Gran Abs Auto 0.02 X10*3/uL (0.00-0.03); Imm Gran Pct Auto 0.2 % (0.0-0.4); Lymphocytes Absolute Auto 3.1 X10*3/uL (1.2-4.9); Mean Corpuscular HGB Conc 33.3 g/dl (31.0-35.0); Mean Corpuscular Hemoglobin 30.0 pg (27.0-33.0); Mean Corpuscular Volume 90.4 fL (80.0-98.0); NRBC Abs Auto 0.000 X10*3/uL (0.0-0.012); NRBC Pct Auto 0.0 /100WBC (0.0-0.2); Platelet Count 204 X10*3/uL (160-400); Red Blood Count 4.46 X10*6/uL (4.20-5.50); White Blood Count 8.1 X10*3/uL (4.8-10.8)
[2025-05-28 20:39] LABS: Cannabinoid Screen Urine Not Detected (Not Detect)
[2025-05-28 20:47] LABS: Alanine Aminotransferase 17 U/L (0-31); Albumin Level 4.4 g/dL (3.5-5.0); Alkaline Phosphatase 55 U/L (39-117); Anion Gap 13 (12-20); Aspartate Amino Transferase 20 U/L (5-31); Blood Urea Nitrogen 15 mg/dL (9-16); Calcium 9.6 mg/dL (8.4-10.2); Carbon Dioxide 27 mmol/L (22-29); Chloride 104 mmol/L (96-108); Creatinine Clr Calc Pharmacy 158.1; Estimated Glomerular Filt Rate > 60; Potassium 4.1 mmol/L (3.3-5.1); Sodium 140 mmol/L (135-145); Total Protein 8.0 g/dL (6.5-8.0)
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
--- NOTE | 2025-05-29 03:42 | PC.NURSE ---
Pt sleeping on bed in room. Respirations even and unlabored.
[2025-05-29 06:13] VITALS: RESP 17
--- NOTE | 2025-05-29 07:14 | PC.NURSE ---
Assumed care of patient at 0645, patient appears to be in no apparent distress this am, calm and cooperative, offering no complaints to this RN. Continue plan of care for discharge home this am
[2025-05-29 10:02] VITALS: BP 132/68; PULSE 91; RESP 17; TEMP 36.7; O2SAT 99
== END 2025-05-29 10:09 | disposition other institution (70) ==
PROVIDERS: Internal Medicine; Emergency Provider Emergency Medicine Emergency Medical Services
DX: F63.81 Intermittent explosive disorder (principal); F84.0 Autistic disorder; R45.89 Other symptoms and signs involving emotional state; Z79.899 Other long term (current) drug therapy
CPT/HCPCS: 36415; 80053; 80164; 80307; 85025; 99285; S9485

== ENCOUNTER 2025-09-19 15:28 | Emergency (ER) | payer OTHER, SELFPAY ==
--- NOTE | ~2025-09-19 | XR_ITS ---
CLINICAL HISTORY: cough x 2 weeks 2 view chest x-ray Comparison: CR/SR - XR CHEST 2 VIEWS - 04/26/23 12:16 EDT Findings: The lungs are clear. Normal size heart. No acute fracture. IMPRESSION: 1. No acute findings. This document has been electronically signed by: Kemal Malloy MD on 09/19/2025 17:54:01
[2025-09-19 15:27] VITALS: BP 106/74; PULSE 102; O2SAT 96
[2025-09-19 15:36] VITALS: BP 124/69; PULSE 101; RESP 13; TEMP 36.6; O2SAT 96
[2025-09-19 15:39] VITALS: BMI 39.2
[2025-09-19 16:31] LABS: Resp Syncy Virus RNA Qual PCR NEGATIVE (Negative); SARS COV2 PCR INHOUSE NEGATIVE (Negative)
[2025-09-19 16:35] LABS: Appearance Urine Clear; Glucose Urine UA Negative (Negative); PH 8.5 (5.0-9.0); Specific Gravity - Urine 1.020 (1.005-1.025); UMIC TRIGGER UACC YES
--- OUTSIDE RECORDS SUMMARY | 2025-09-19 16:45 | XMS_ITS | Clinical Summary ---
Author Organization [facility] [address] [facility] [address] Address [address] [place] [address] Phone Care Team Providers Care Advanced Practice Psychiatric Nurse Name Role Phone Unavailable Primary Care Provider Unavailabl e Encounters Date Type Department Care Team Description 07/28/2025 Telephone Gastroenterology - [address] [id number] Surya Colby MD from Last 3 Months Social History Tobacco Use Types Packs/Day Years Used Date Smoking Tobacco: Never Assessed Comments Unknown Sex and Gender Information Value Date Recorded Sex Assigned at Not on file Legal Sex Female 10:22 AM EDT Gender Identity Not on file Sexual Orientation Not on file Plan of Treatment Health Maintenance Due Date Last Done Comments HPV Vaccines (1 - 3-dose series) 2014 DTaP,Tdap,and Td Vaccines (1 - Tdap) 2018 Hepatitis B Vaccines (1 of 3 - 19+ 3-dose series) 2018 Cervical Cancer Screening: P ap Smear 01/26/2020 Depression Screening 10/21/2024 COVID-19 Vaccine ( - 2024-2 6 season) 2025 Influenza Vaccine (#1) 2025 HIV Screening 07/28/2025 Hepatitis C Screening 07/28/2025 Social Influencers of Health Screening 07/28/2025 RSV Immunization Adult Patie nts (1 - 1-dose 75+ series) 2074 HIB Vaccines Aged Out No longer eligi ble based on patient's age to complete this topic Hepatitis A Vaccines Aged Out No long er eligible based on patient's age to complete this topic IPV Vaccines Aged Out No longer eligi ble based on patient's age to complete this topic MMR Vaccines Aged Out No longer eligi ble based on patient's age to complete this topic Meningococcal ACWY Vaccine Aged Out N o longer eligible based on patient's age to complete this topic Meningococcal B Vaccine Aged Out No l onger eligible based on patient's age to complete this topic Pneumococcal Vaccine: Pediat rics (0 to 5 Years) and At-Risk Patients (6 to 49 Years) Aged Out No longer eligible b ased on patient's age to complete this topic RSV Immunization Patients Un noa 20 months Aged Out No longer eligible b ased on patient's age to complete this topic Varicella Vaccines Aged Out No longer eligible based on patient's age to complete this topic Insurance MEDICAID - [place]
--- NOTE | 2025-09-19 16:49 | ECG_ITS ---
Test Reason : weakness Blood Pressure : */* mmHG Vent. Rate : 99 BPM Atrial Rate : 99 BPM P-R Int : 148 ms QRS Dur : 78 ms QT Int : 372 ms P-R-T Axes : 31 32 38 degrees QTcB Int : 477 ms Normal sinus rhythm Nonspecific T wave abnormality Abnormal ECG When compared with ECG of 28-Mar-2025 12:57, Nonspecific T wave abnormality, worse in Inferior leads Nonspecific T wave abnormality now evident in Anterolateral leads Referred By: Lovely Hudson Electronically Signed By: MADISON ROBERTS
--- NOTE | 2025-09-19 16:54 | ED.GENADULT ---
HPI - General Adult General Chief complaint: General Medical Stated complaint: weakness, congestion, reduced PO x2days Time Seen by Provider: 09/19/25 16:26 History of Present Illness HPI narrative: Patient is a 25-year-old female presents today with having generalized malaise weakness. Decreasing p.o. intake. Has a history of anxiety. History of depression. History of autism. History of PTSD. Presented today with having increasing weakness. No blood in the stool. That is been having her menstruation on a constant basis for the last week. She does not think she is . Positive constipation. No bloody stool. Feels very weak and tired. No diaphoresis. No chest pain. No new medication. Positive coughing ongoing. Nonproductive in nature. Related Data Home Medications ?Medication ?Instructions ?Recorded ?Confirmed albuterol sulfate 90 mcg/actuation 2 puff inhalation Q4H PRN Wheezing 03/14/25 04/08/25 aerosol inhaler (Ventolin HFA) calcium carbonate (Antacid Ext Str 1,000 mg PO Q8H PRN gerd 03/14/25 04/08/25 (calcium carb)) clomipramine 25 mg capsule 150 mg PO BEDTIME 03/14/25 04/08/25 diazepam 2 mg tablet 2 mg PO BID 03/14/25 05/28/25 diazepam 2 mg tablet 5 mg PO 1600 03/14/25 05/28/25 diazepam 2 mg tablet 5 mg PO DAILY PRN anxiety, 03/14/25 05/28/25 agitation diphenhydramine HCl 100 mg PO Q6H PRN Anxiety 03/14/25 04/08/25 famotidine 20 mg tablet 20 mg PO BID 03/14/25 05/28/25 levothyroxine 25 mcg tablet 25 mcg PO DAILY 03/14/25 05/28/25 magnesium hydroxide 400 mg/5 mL 30 ml PO DAILY PRN Constipation 03/14/25 04/08/25 oral suspension (Milk of Magnesia) melatonin 5 mg tablet 5 mg PO BEDTIME PRN Insomnia 03/14/25 04/08/25 olanzapine 10 mg tablet 10 mg PO Q6H PRN Agitation 03/14/25 04/08/25 prazosin 1 mg capsule 4 mg PO BEDTIME 03/14/25 04/08/25 risperidone 4 mg tablet 4 mg PO BID 03/14/25 04/08/25 sennosides 8.6 mg-docusate sodium 1 tab PO BEDTIME 03/14/25 04/08/25 50 mg tablet (Stimulant Laxative Plus) cetirizine 10 mg tablet (Zyrtec) 10 mg PO DAILY PRN Allergy Symptoms 04/08/25 04/08/25 clomipramine 25 mg capsule 25 mg PO BEDTIME 04/08/25 04/08/25 (Anafranil) olopatadine 0.1 % eye drops 1 drp ophthalmic (eye) BID PRN 04/08/25 04/08/25 Allergy Symptoms white petrolatum 1 appl topical Q4H PRN chapped lips 04/08/25 04/08/25 benztropine 0.5 mg tablet 0.5 mg PO BEDTIME 05/28/25 05/28/25 clozapine 50 mg tablet 50 mg PO BEDTIME 05/28/25 05/28/25 cyclobenzaprine 5 mg tablet 5 mg PO TID PRN Spasms 05/28/25 05/28/25 divalproex 500 mg tablet,extended 1,000 mg PO BEDTIME 05/28/25 05/28/25 release 24 hr loratadine 10 mg tablet 10 mg PO DAILY 05/28/25 05/28/25 quetiapine 300 mg tablet (Seroquel) 300 mg PO TID PRN Agitation 05/28/25 05/28/25 risperidone 3 mg tablet 6 mg PO BEDTIME 05/28/25 05/28/25 sennosides 8.8 mg/5 mL oral syrup 8.8 mg PO BEDTIME 05/28/25 05/28/25 (senna) sertraline 50 mg tablet 50 mg PO DAILY 05/28/25 05/28/25 trazodone 100 mg tablet 100 mg PO BEDTIME 05/28/25 05/28/25 Previous Rx's ?Medication ?Instructions ?Recorded acetaminophen 325 mg tablet 650 mg (2 x 325 mg) PO Q6H PRN 06/26/23 Headache/Pain Mild Scale (1-3) #0 tabs divalproex 500 mg tablet,delayed 500 mg PO TID #0 tabs 06/26/23 release epinephrine 1 mg/mL (1 mL) 0.3 mg (0.3 mL) IM ONCE PRN 06/26/23 injection solution (Adrenalin) anaphylaxis #0 mL polyethylene glycol 3350 17 gram 17 g PO BID #0 ea 06/26/23 oral powder packet Allergies Allergy/AdvReac Type Severity Reaction Status Date / Time chlorpromazine (From Allergy Severe Anaphylaxis Verified 09/19/25 15:40 Thorazine) lithium Allergy Hives Verified 09/19/25 15:40 peanut Allergy Unknown Verified 09/19/25 15:40 lorazepam (From Ativan) AdvReac Intermediate Agitated, Verified 09/19/25 15:40 dysregulation haloperidol (From Haldol) AdvReac Agitated Verified 09/19/25 15:40 nut - unspecified AdvReac Anxiety Verified 09/19/25 15:40 Review of Systems Review of Systems: Positive generalized malaise weakness Yes all other systems are reviewed and are negative [facility] Past Medical History Attestation statement: The following information was validated with the patient. Medical History Chronic restrictive lung disease CHARLES positive Has daytime drowsiness Dyspnea Amenorrhea Peripheral edema PTSD (post-traumatic stress disorder) Autism Developmental disorder Suicidal behavior Homicidal behavior Family History Family History Father No known health problems Mother No problems noted. 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 Household Members Other:: grandmother Housing: Apartment Do you presently have visiting nurse or other home services: No Alcohol intake: never Patient Tobacco Use Status: Never used Tobacco Smoked in Last 30 Days: No e-Cigarette/Vaping Use: Never Used Use of substances other than those prescribed or required for medical reasons: No Advance Directives: Yes Advance Directives on File: Yes Advance Directives Date on File: 06/28/23 Do you have a plan to hurt others: No Plan service: No Sexual orientation: Straight/Heterosexual Cognitive needs: No Hearing needs: No Vision needs: No Physical Exam ED Exam Exam: Appearance: Alert. Oriented X3. No acute distress. Eyes: Pupils equal, round and reactive to light. ENT: Pharynx normal. Neck: Normal inspection. Neck supple. No lymph nodes noted. No crepitus CVS: Normal heart rate and rhythm. Pulses normal. Normal S1 and S2 Respiratory: No respiratory distress. Breath sounds normal. No Wheezing. No rales Abdomen: Soft and nontender. No rigidity. No distention. good BS x4 Skin: Skin warm and dry. Normal skin color. Normal skin turgor. Extremities: No lower extremity edema. Neurovascular intact to all extremities. No Lacerations. No Rash Neuro: Oriented X 3. No motor deficit. No sensory deficit. Moving all extermities. No slurred speech Vital Signs: Vital Signs - 24 hr 09/19/25 15:36 Temperature 97.9 F Pulse Rate 101 H Respiratory Rate 13 Blood Pressure 124/69 Pulse Oximetry 96 Oxygen Delivery Method Room Air BMI result Body Mass Index 39.2 Medications Administered Discontinued Medications Generic Name Dose Route Start Last Admin Trade Name Freq PRN Reason Stop Dose Admin Sodium Chloride 1,000 mls @ 999 mls/hr 09/19/25 17:00 09/19/25 18:29 Ns IV 09/19/25 18:00 999 mls/hr .Q1H1M OSCAR Administration Medical Decision Making Medical Decision Making [facility] Narrative: Patient well-appearing no acute distress. Appears very pale. However patient's hemoglobin came back at 11.7. About baseline patient's baseline that is 12-,1/2 she did have an extended long period of menstruation. Her test is negative no related issue urine is negative for infection TSH is slightly elevated but the free T4 was normal no evidence for hypo or hyperthyroid. Patient otherwise well-appearing is hungry had 2 large meal here in the emergency department. My interpretation patient's EKG showed a sinus rhythm heart rate is 100 LA QRS QTC normal there is nonspecific T-wave flattening when compared to previous EKGs the same. My interpretation patient's chest x-ray is grossly negative. No pneumonia no pneumothorax. Patient's troponin is negative. History not consistent with ACS. White count is normal. No signs of infection. Will discharge patient home close follow-up advised. Patient's urine showed large amount of blood consistent with menstruation but there is no signs of infection. Currently in stable condition. Alcohol was also negative. Differential Diagnosis Differential Diagnoses: The differential diagnosis associated with the presentation includes Infection, hypothyroid, anemia Admission/Observation Consideration of admission/observation: Escalation of care including admission/observation considered Lab Data [facility] Lab Attestation statement: I reviewed the patient's lab results. 09/19/25 17:56 09/19/25 17:56 Labs: Lab Results 09/19/25 09/19/25 09/19/25 Range/Units 15:49 16:29 17:55 WBC (4.8-10.8) X10*3/uL RBC (4.20-5.50) X10*6/uL Hgb (12.0-16.0) g/dl Hct (37.0-47.0) % MCV (80.0-98.0) fL MCH (27.0-33.0) pg MCHC (31.0-35.0) g/dl RDW (11.0-16.0) % Plt Count (160-400) X10*3/uL MPV (9.4-12.3) fL Immature Gran % (Auto) (0.0-0.4) % Neut % (Auto) (45-73) % Lymph % (Auto) (20-40) % [place] % (Auto) (2-11) % Eos % (Auto) (0-4) % Baso % (Auto) (0-2) % Lymph # (Auto) (1.2-4.9) X10*3/uL [place] # (Auto) (0.1-1.2) X10*3/uL Eos # (Auto) (0.0-0.4) X10*3/uL Baso # (Auto) (0.0-0.2) X10*3/uL Abs Immat Gran (auto) (0.00-0.03) X10*3/uL Absolute Neuts (auto) (2.0-8.3) x10*3/uL Absolute Nucleated RBC (0.0-0.012) X10*3/uL Nucleated RBC % (auto) (0.0-0.2) /100WBC Sodium (135-145) mmol/L Potassium (3.3-5.1) mmol/L Chloride (96-108) mmol/L Carbon Dioxide (22-29) mmol/L Anion Gap (12-20) BUN (9-16) mg/dL Creatinine (0.5-1.4) mg/dL Estim Creat Clear Calc Estimated GFR Random Glucose (60-115) mg/dL Calcium (8.4-10.2) mg/dL Total Bilirubin (0.0-1.0) mg/dL Direct Bilirubin (0.0-0.5) mg/dL AST (5-31) U/L ALT (0-31) U/L Alkaline Phosphatase (39-117) U/L Troponin I High Sens (<3.5-17.0) ng/L Total Protein (6.5-8.0) g/dL Albumin (3.5-5.0) g/dL TSH (0.32-4.0) uIU/mL Free T4 (0.71-1.85) ng/dL Urine Color Yellow Urine Appearance Clear Urine pH 8.5 (5.0-9.0) Ur Specific [place] 1.020 (1.005-1.025) Urine Protein Negative (Neg-Trace) mg/dL Urine Glucose (UA) Negative (Negative) mg/dL Urine Ketones Negative (Negative) mg/dL Urine Blood Large (3+) H (Negative) Urine Nitrite Negative (Negative) Ur Leukocyte Esterase Trace H (Negative) Urine RBC 0-2 (0-2) /HPF Urine WBC 0-5 (0-5) /HPF Ur Squamous Epith Cells 6-10 (0-2) /HPF Urine Bacteria Trace (None Seen) Hyaline Casts 0-2 (0-2) /LPF [place] (0.60-1.20) mmol/L Ethyl Alcohol < 10 mg/dL Influenza Type A (PCR) NEGATIVE (Negative) Influenza Type B (PCR) NEGATIVE (Negative) RSV RNA Qual (PCR) NEGATIVE (Negative) SARS-CoV-2 RNA (RT-PCR) NEGATIVE (Negative) Blood Type Antibody Screen 09/19/25 09/19/25 Range/Units 17:56 18:49 WBC 9.1 (4.8-10.8) X10*3/uL RBC 3.94 L (4.20-5.50) X10*6/uL Hgb 11.7 L (12.0-16.0) g/dl Hct 35.4 L (37.0-47.0) % MCV 89.8 (80.0-98.0) fL MCH 29.7 (27.0-33.0) pg MCHC 33.1 (31.0-35.0) g/dl RDW 13.0 (11.0-16.0) % Plt Count 218 (160-400) X10*3/uL MPV 11.1 (9.4-12.3) fL Immature Gran % (Auto) 0.3 (0.0-0.4) % Neut % (Auto) 58.8 (45-73) % Lymph % (Auto) 29.7 (20-40) % [place] % (Auto) 8.5 (2-11) % Eos % (Auto) 2.4 (0-4) % Baso % (Auto) 0.3 (0-2) % Lymph # (Auto) 2.7 (1.2-4.9) X10*3/uL [place] # (Auto) 0.8 (0.1-1.2) X10*3/uL Eos # (Auto) 0.2 (0.0-0.4) X10*3/uL Baso # (Auto) 0.0 (0.0-0.2) X10*3/uL Abs Immat Gran (auto) 0.03 (0.00-0.03) X10*3/uL Absolute Neuts (auto) 5.3 (2.0-8.3) x10*3/uL Absolute Nucleated RBC 0.000 (0.0-0.012) X10*3/uL Nucleated RBC % (auto) 0.0 (0.0-0.2) /100WBC Sodium 139 (135-145) mmol/L Potassium 4.5 (3.3-5.1) mmol/L Chloride 110 H (96-108) mmol/L Carbon Dioxide 21 L (22-29) mmol/L Anion Gap 13 (12-20) BUN 10 (9-16) mg/dL Creatinine 0.67 (0.5-1.4) mg/dL Estim Creat Clear Calc 204.9 Estimated GFR > 60 Random Glucose 104 (60-115) mg/dL Calcium 9.5 (8.4-10.2) mg/dL Total Bilirubin 0.3 (0.0-1.0) mg/dL Direct Bilirubin 0.1 (0.0-0.5) mg/dL AST 31 (5-31) U/L ALT 10 (0-31) U/L Alkaline Phosphatase 45 (39-117) U/L Troponin I High Sens < 2.7 (<3.5-17.0) ng/L Total Protein 7.5 (6.5-8.0) g/dL Albumin 4.0 (3.5-5.0) g/dL TSH 4.59 H (0.32-4.0) uIU/mL Free T4 0.74 (0.71-1.85) ng/dL Urine Color Urine Appearance Urine pH (5.0-9.0) Ur Specific [place] (1.005-1.025) Urine Protein (Neg-Trace) mg/dL Urine Glucose (UA) (Negative) mg/dL Urine Ketones (Negative) mg/dL Urine Blood (Negative) Urine Nitrite (Negative) Ur Leukocyte Esterase (Negative) Urine RBC (0-2) /HPF Urine WBC (0-5) /HPF Ur Squamous Epith Cells (0-2) /HPF Urine Bacteria (None Seen) Hyaline Casts (0-2) /LPF [place] 0.73 (0.60-1.20) mmol/L Ethyl Alcohol mg/dL Influenza Type A (PCR) (Negative) Influenza Type B (PCR) (Negative) RSV RNA Qual (PCR) (Negative) SARS-CoV-2 RNA (RT-PCR) (Negative) Blood Type O Positive Antibody Screen NEGATIVE Independent Interpretation I performed an independent interpretation of an: EKG (Sinus heart rate is 100 LA QRS QTC normal there is nonspecific T-wave flattening noted) and Plain X-Ray (My interpretation patient's chest x-ray is grossly negative no pneumonia no pneumothorax) Social Determinants Patient?s care significantly limited by Social Determinants of Health including: Problems related to primary support group Discharge Plan Discharge Clinical Impression: Autism, Weakness Patient Disposition: Home, Self-Care Instructions: Weakness (ED) Prescriptions: No Action epinephrine [Adrenalin] 1 mg/mL (1 mL) Solution 0.3 mg IM ONCE PRN (Reason: anaphylaxis) Qty: 0 0RF acetaminophen 325 mg Tablet 650 mg PO Q6H PRN (Reason: Headache/Pain Mild Scale (1-3)) Qty: 0 0RF polyethylene glycol 3350 17 gram Powder In Packet 17 g PO BID Qty: 0 0RF divalproex 500 mg Tablet,Delayed Release (Dr/Ec) 500 mg PO TID Qty: 0 0RF levothyroxine 25 mcg tablet 25 mcg PO DAILY prazosin 1 mg capsule 4 mg PO BEDTIME Protocol: Hold for SBP< HOLD for SBP < : 90 clomipramine 25 mg capsule 150 mg PO BEDTIME diazepam 2 mg tablet 5 mg PO 1600 olanzapine 10 mg tablet 10 mg PO Q6H PRN (Reason: Agitation) Antacid Ext Str (calcium carb) 300 mg (750 mg) tablet,chewable 1,000 mg PO Q8H PRN (Reason: gerd) melatonin 5 mg tablet 5 mg PO BEDTIME PRN (Reason: Insomnia) diazepam 2 mg tablet 2 mg PO BID diazepam 2 mg tablet 5 mg PO DAILY PRN (Reason: anxiety, agitation) risperidone 4 mg tablet 4 mg PO BID sennosides-docusate sodium [Stimulant Laxative Plus] 8.6-50 mg tablet 1 tab PO BEDTIME albuterol sulfate [Ventolin HFA] 90 mcg/actuation HFA aerosol inhaler 2 puff inhalation Q4H PRN (Reason: Wheezing) famotidine 20 mg tablet 20 mg PO BID magnesium hydroxide [Milk of Magnesia] 400 mg/5 mL suspension 30 ml PO DAILY PRN (Reason: Constipation) diphenhydramine HCl 100 mg PO Q6H PRN (Reason: Anxiety) clomipramine [Anafranil] 25 mg Capsule 25 mg PO BEDTIME cetirizine [Zyrtec] 10 mg Tablet 10 mg PO DAILY PRN (Reason: Allergy Symptoms) olopatadine 0.1 % Drops 1 drp OPHTHALMIC (EYE) BID PRN (Reason: Allergy Symptoms) Rx Instructions: separate doses by at least 6-8 hours white petrolatum Ointment 1 appl TOPICAL Q4H PRN (Reason: chapped lips) sertraline 50 mg Tablet 50 mg PO DAILY sennosides [senna] 8.8 mg/5 mL Syrup 8.8 mg PO BEDTIME divalproex 500 mg Tablet Extended Release 24 Hr 1,000 mg PO BEDTIME risperidone 3 mg Tablet 6 mg PO BEDTIME quetiapine [Seroquel] 300 mg Tablet 300 mg PO TID PRN (Reason: Agitation) benztropine 0.5 mg Tablet 0.5 mg PO BEDTIME trazodone 100 mg Tablet 100 mg PO BEDTIME loratadine 10 mg Tablet 10 mg PO DAILY cyclobenzaprine 5 mg Tablet 5 mg PO TID PRN (Reason: Spasms) clozapine 50 mg Tablet 50 mg PO BEDTIME Referrals: Physician,Unknown J [Primary Care Provider, Medical] Referral Note: Follow-up with your primary in the few days Print Language: [place]uran
[2025-09-19 18:03] LABS: MANUAL DIFF FLAG NO
[2025-09-19 18:22] LABS: Hematocrit 35.4 % (37.0-47.0); Hemoglobin 11.7 g/dl (12.0-16.0); Imm Gran Abs Auto 0.03 X10*3/uL (0.00-0.03); Imm Gran Pct Auto 0.3 % (0.0-0.4); Lymphocytes Absolute Auto 2.7 X10*3/uL (1.2-4.9); Mean Corpuscular HGB Conc 33.1 g/dl (31.0-35.0); Mean Corpuscular Hemoglobin 29.7 pg (27.0-33.0); Mean Corpuscular Volume 89.8 fL (80.0-98.0); NRBC Abs Auto 0.000 X10*3/uL (0.0-0.012); NRBC Pct Auto 0.0 /100WBC (0.0-0.2); Platelet Count 218 X10*3/uL (160-400); Red Blood Count 3.94 X10*6/uL (4.20-5.50); White Blood Count 9.1 X10*3/uL (4.8-10.8)
[2025-09-19 18:42] LABS: Alanine Aminotransferase 10 U/L (0-31); Albumin Level 4.0 g/dL (3.5-5.0); Alkaline Phosphatase 45 U/L (39-117); Anion Gap 13 (12-20); Aspartate Amino Transferase 31 U/L (5-31); Blood Urea Nitrogen 10 mg/dL (9-16); Calcium 9.5 mg/dL (8.4-10.2); Carbon Dioxide 21 mmol/L (22-29); Chloride 110 mmol/L (96-108); Creatinine Clr Calc Pharmacy 204.9; Estimated Glomerular Filt Rate > 60; Potassium 4.5 mmol/L (3.3-5.1); Sodium 139 mmol/L (135-145); Total Protein 7.5 g/dL (6.5-8.0); Troponin-I High Sensitivity < 2.7 ng/L (<3.5-17.0)
[2025-09-19 19:06] LABS: Lithium 0.73 mmol/L (0.60-1.20)
[2025-09-19 19:40] LABS: Free T4 (Free Thyroxine) 0.74 ng/dL (0.71-1.85)
[2025-09-19 19:49] VITALS: BP 112/60; PULSE 99; RESP 16; TEMP 36.7; O2SAT 98
[2025-09-19 19:53] LABS: UPreg QC Valid YES
[2025-09-19 21:12] VITALS: BP 112/60; PULSE 99; RESP 16; TEMP 36.7; O2SAT 98
--- NOTE | 2025-09-19 21:12 | PC.NURSE ---
Nurse to nurse report given to Tess bakns at [facility]. pt is in transit via EMS.
== END 2025-09-19 21:13 | disposition home or self-care (01) ==
PROVIDERS: Emergency Provider Emergency Medicine Emergency Medical Services
DX: R53.1 Weakness (principal); R53.81 Other malaise; F84.0 Autistic disorder; Z79.899 Other long term (current) drug therapy
CPT/HCPCS: 36415; 71046; 80048; 80076; 80178; 80307; 81001; 81025; 84439; 84443; 84484; 85025; 86850; 86900; 86901; 87637; 93005; 96360; 99284

== ENCOUNTER → 2025-09-19 16:36 | Outpatient (BNV) | payer OTHER, SELFPAY | PROVIDERS: Emergency Provider Emergency Medicine Emergency Medical Services; Visit Provider Radiology Diagnostic Radiology | DX: R05.9 Cough, unspecified (principal) | CPT/HCPCS: 71046 ==

== ENCOUNTER → 2025-09-19 16:49 | Outpatient (BNV) | payer OTHER, SELFPAY | PROVIDERS: Emergency Provider Emergency Medicine Emergency Medical Services; Visit Provider Internal Medicine | DX: R94.31 Abnormal electrocardiogram [ECG] [EKG] (principal); R53.1 Weakness | CPT/HCPCS: 93010 ==